=== PATIENT | female | born 1955 | race Caucasian/White ===

== ENCOUNTER → 2018-01-07 12:32 | Outpatient (CLI) | payer MEDICAID, SELFPAY ==
--- NOTE | 2018-01-07 13:56 | NEURO ---
NCS and/or EMG Patient Report Ordering Doctor: Bebeto Baires DATE OF SERVICE: 01/07/18 Catina Hayden is a 62-year-old female presents for electrodiagnostic testing of the lower limbs. She reports numbness in both feet and intermittent low back pain. Electrodiagnostic findings: Peroneal motor nerve demonstrates normal distal latency, amplitude and conduction velocity bilaterally. Normal tibial motor response bilaterally normal tibial and peroneal F waves H reflex normal bilaterally sensory responses within normal limits. On needle EMG, all muscles tested in the lower limbs show no evidence of denervation with normal motor unit action potentials. Electrodiagnostic Assessment: This is a normal study in the lower limbs. There is no electrodiagnostic evidence for peripheral neuropathy or lumbosacral radiculopathy. If there are any further questions, please do not hesitate to contact me.
== END ==
PROVIDERS: Family Provider Family Medicine; PCP Family Medicine; Visit Provider Family Medicine
DX: R20.2 Paresthesia of skin (principal)
CPT/HCPCS: 95886; 95912

== ENCOUNTER → 2018-02-04 10:58 | Outpatient (CLI) | payer MEDICAID, SELFPAY ==
--- NOTE | 2018-02-04 15:55 | NEURO ---
NCS and/or EMG Patient Report Ordering Doctor: Bebeto Baires DATE OF SERVICE: 02/04/18 Catina Hayden is a 62-year-old female with chief complaint of numbness in both hands. She has a history of cervical fusion 2003. She also has a history of diabetes. Electrodiagnostic findings: Median motor nerve demonstrates normal distal latency, amplitude and conduction velocity on the right side. Left median motor conduction velocity is borderline delayed. Normal ulnar motor response bilaterally, including conduction across the elbows. Prolonged median sensory distal latency is noted bilaterally. Normal ulnar and radial sensory responses. On needle EMG, all muscles tested in the upper limbs show no evidence of denervation with normal motor unit action potentials. Electrodiagnostic impression: This is an abnormal study in the upper limbs. 1. Findings demonstrate bilateral median mononeuropathy. This is consistent with a mild bilateral carpal tunnel syndrome. 2. No EMG evidence for cervical radiculopathy is noted. If there are any further questions, please do not hesitate to contact me.
== END ==
PROVIDERS: Family Provider Family Medicine; PCP Family Medicine; Visit Provider Family Medicine
DX: R20.2 Paresthesia of skin (principal)
CPT/HCPCS: 95886; 95912

== ENCOUNTER 2018-03-14 11:17 | Emergency (ER) | payer MEDICAID, SELFPAY ==
[2018-03-14 11:18] VITALS: BP 160/79; PULSE 66; RESP 16; TEMP 37.1; O2SAT 96; BMI 30.8
--- NOTE | 2018-03-14 11:38 | ED.VISSUMM ---
- ER Visit Summary Date of Service: 03/14/18 Chief Complaint: [] Redness around left lower extreme biopsy site Friday History of Present Illness: The patient is a 62 F [] bx left lower extremity by manager intermediate of a suspicious lesion for cancer she reports for the last 2 days seems red, she was told by the manager intermediate that was positive for some type of cancer and she needs further therapy she is scheduled to see in the office next week further management she has no history of DVT cellulitis skin infection she has multiple allergies to antibiotics she is able to take clindamycin otherwise she has no complaints Physical Examination: [] Neck chest unremarkable the abdomen soft nontender she is awake alert no distress the left lower extremity there is a circular biopsy site that is intact there is minimal redness surrounding it there is no drainage or warmth the calf knee ankle and the rest of lower extremity entirely unremarkable this is a focal area of discomfort and redness around the biopsy site, she does not believe she was given any special medication she is using aqua for cream over the site as instructed Test Results: [] Emergency Department Course and Treatment: [] this certainly could be cellulitis versus local reaction at this time she was started on clindamycin 300 4 times daily ice elevation continue the wound care she is instructed by her manager intermediate and follow-up with him return for change in symptoms Treatment Plan: [] Disposition: [] Home stable Impression: [] Biopsy site left lower extremity redness, possible early cellulitis This note was generated with [employer] dictation software. It may contain incorrect words, spelling, and punctuation that were not noted in review of the chart prior to signing ED Disposition - Plan for ED Patient: Chief Complaint: Cellulitis Referrals: Bebeto Baires MD [Primary Care Provider] -
--- NOTE | 2018-03-14 11:40 | ED.DEP ---
ED Disposition - Plan for ED Patient: Chief Complaint: Cellulitis Instructions: Discharge Instructions for Cellulitis Prescriptions: Clindamycin HCl [Cleocin] 300 mg PO Q6H #40 cap Referrals: Bebeto Baires MD [Primary Care Provider] -
[2018-03-14 12:08] VITALS: RESP 16
== END 2018-03-14 12:21 | disposition home or self-care (01) ==
LOC: ED 12:13
PROVIDERS: Emergency Provider Emergency Medicine; Family Provider Family Medicine; PCP Family Medicine
DX: T81.4XXA Infection following a procedure, initial encounter (principal); L03.116 Cellulitis of left lower limb; B96.89 Other specified bacterial agents as the cause of diseases classified elsewhere; I10 Essential (primary) hypertension; Z79.82 Long term (current) use of aspirin; Z79.899 Other long term (current) drug therapy
CPT/HCPCS: 99282

== ENCOUNTER 2018-04-01 16:30 | Observation (INO) | payer MEDICAID, SELFPAY ==
[2018-04-01 16:32] VITALS: BP 153/70; PULSE 62; PULSE 66; RESP 18; TEMP 36.9; O2SAT 94; BMI 30.8
--- NOTE | 2018-04-01 16:40 | RAD_ITS ---
STUDY: X-RAY CHEST REASON FOR EXAM: Female, 62 years old. Chest pain TECHNIQUE: Single AP portable view of the chest. COMPARISON: None. FINDINGS: The lungs are clear and expanded. There is no demonstrated pleural abnormality. Normal size heart. Normal mediastinum and leeann. Normal visualized pulmonary arteries. Normal visualized aortic arch and descending thoracic aorta. There are diffuse degenerative changes of the visualized thoracic spine. Previous cervical spine surgery. Normal visualized ribs, clavicles, and shoulders. There is no demonstrated abnormality of the visualized soft tissue structures of the upper abdomen. RAD/Chest 1 View (Portable) IMPRESSION: No acute chest disease. Electronically Signed: Jeffrey Amaro MD at 16:58 EDT , Service support ,
--- NOTE | 2018-04-01 16:41 | EKG12_ITS ---
Test Reason : Blood Pressure : / mmHG Vent. Rate : 057 BPM Atrial Rate : 057 BPM P-R Int : 186 ms QRS Dur : 092 ms QT Int : 454 ms P-R-T Axes : 046 052 064 degrees QTc Int : 441 ms Sinus bradycardia Otherwise normal ECG Confirmed by LIDIA HOLGUIN, CRISTHIAN ([id number]), senior editor LIZ TEJEDA ([id number] on 04/03/2018 10:56:44 AM Referred By: KRISTI Confirmed By:CRISTHIAN MURILLO MD
--- NOTE | 2018-04-01 16:59 | CT_ITS ---
STUDY: CT BRAIN WITHOUT CONTRAST REASON FOR EXAM: Female, 62 years old. Headache RADIATION DOSAGE (If Supplied By Facility): CTDIvol = ( 60.81 ) mGy, DLP = ( 1067.08 ) mGycm TECHNIQUE: Transaxial CT imaging of the brain was performed without administration of intravenous contrast material. Individualized dose optimization techniques were used for this CT. COMPARISON: 09/04/2015. FINDINGS: Normal soft tissue structures. Normal calvarium. Normal size ventricles and extra-axial spaces for the patient's age. Normal white matter tracts of the cerebral hemispheres. Normal basal ganglia and thalami. Normal brainstem. Normal cerebellum. There is no intracranial hemorrhage. There are no findings of an acute ischemic infarction. Normal visualized paranasal sinuses. CT/Brain/Head without Contrast IMPRESSION: Normal unenhanced CT scan of the brain. Electronically Signed: Jeffrey Amaro MD at 17:40 EDT , Service support ,
[2018-04-01 17:34] LABS: Absolute Lymphocyte Count 3.01 X10^3/ul (0.83-4.51); Absolute Neutrophil Count 3.7 X10^3/uL (2.0-7.7); Basophil# 0.02 X10^3/uL; Basophil% 0.3 % (0-1); Eosinophil# 0.05 X10^3/uL; Eosinophils% 0.7 % (0-5); Hematocrit 39.8 % (37-47); Hemoglobin 13.4 g/dl (12.0-15.0); Lymphocyte # 3.01 X10^3/ul (4.0); Lymphocyte % 42.4 % (19-41); Mean Corp Hgb Conc 33.7 g/gl (32-36); Mean Corpuscular Hgb 32.7 pg (27.0-32.0); Mean Corpuscular Volume 97.1 fL (81-99); Mean Platelet Vol. 9.9 fl (6.2-12.0); Monocyte# 0.31 X10^3/uL; Monocyte% 4.4 % (0-10); Neutrophil % 52.1 % (47-70); Platelet Count 177 K/mm3 (150-450); RBC Distribution Width CV 13.4 % (11.6-14.6); RBC Distribution Width SD 47.5 fl (35.1-43.9); White Blood Count 7.1 K/mm3 (4.4-11.0)
[2018-04-01 17:42] LABS: POSITIVE COUNT NO; POSITIVE DIFFERENTIAL NO; POSITIVE MORPHOLOGY NO
[2018-04-01 17:46] LABS: Anion Gap 5 (5-15); BUN 8 mg/dL (7-18); Calcium,Total 9.2 mg/dL (8.5-10.1); Chloride 105 mmol/L (98-107); Creatinine, Serum 0.66 mg/dL (0.55-1.02); EST Glomerular Filtration Rate 96 mL/min (>60); Est Glom Filt Rate - Afr Amer 116 mL/min (>60); Estimated Creatinine Clearance 71.69 ml/min; Glucose 81 mg/dL (74-106); Potassium 3.8 mmol/L (3.5-5.1); Sodium Level 138 mmol/L (136-145)
[2018-04-01] MEDS: Aspirin 81 MG TAB.CHEW 324 MG PO (17:46)
[2018-04-01] MEDS: Morphine 4 MG/ML Syringe IV (17:46)
[2018-04-01] MEDS: 0.9% Normal Saline 1,000 ML 150 ML IV (17:46)
--- NOTE | 2018-04-01 18:22 | PCM.HP.STD ---
Problem List (1) Chest pain Status: Acute (2) Diabetes Status: Chronic Qualifiers: Diabetes mellitus type: type 2 (3) HLD (hyperlipidemia) Status: Chronic (4) Tobacco abuse Status: Chronic (5) Obesity Status: Chronic History of Present Illness Date of Admission: 04/01/18 Chief Complaint: chest pain The patient is a 62 year old F with a hx of DMt2, nicotine abuse, GERD, HLD, who presents to the ER with a chief complaint of chest pain. This pain started about two weeks ago and has been occurring multiple times a day about every other day. She describes it as a left sided anterior dull aching pain with radiation into her arms, today radiation into her left arm. She has associated SOB, dizziness, palpitations, nausea, and sweating during the pain episodes. These last about 5 minutes at a time before spontaneously remitting. It sometimes occurs at rest, sometimes with exertion, she states sometimes when walking up stairs. She denies any hx of heart disease, but did used to see Dr. Cervantes who last did a stress test last spring, which was at that time negative. Her father did have heart disease, and she does have a heavy smoking history - 1 ppd since age 20 : 44 years. She saw her PCP Dr. Baires today who sent her to the ER with concerns of chest pain, but also as she was having swelling of her legs L > R. She denies hx of blood clots, and denies fm hx of blood clots. She did have skin cancer removed from her left leg where there is an open wound, and from her arm, she does not know what type. [] Past Medical History Past Medical History (Chronic Problems): Chronic Problems Diabetes (Chronic) HLD (hyperlipidemia) (Chronic) Tobacco abuse (Chronic) History of rectal bleeding (Chronic) Obesity (Chronic) Allergies ciprofloxacin [From Cipro] Allergy (Verified 04/01/18 16:32) Swelling ciprofloxacin HCl [From Cipro] Allergy (Verified 04/01/18 16:32) Swelling Penicillins Allergy (Verified 04/01/18 16:32) Rash Sulfa (Sulfonamide Antibiotics) Allergy (Verified 04/01/18 16:32) Rash adhesive Adverse Reaction (Verified 04/01/18 16:32) Unknown amoxicillin trihydrate [From Augmentin] Adverse Reaction (Verified 04/01/18 16:32) Unknown fluoxetine HCl [From Prozac] Adverse Reaction (Verified 04/01/18 16:32) Unknown metronidazole Adverse Reaction (Verified 04/01/18 16:32) Unknown potassium clavulanate [From Augmentin] Adverse Reaction (Verified 04/01/18 16:32) Unknown Home Medications: Ambulatory Orders Medication Instructions Recorded Gabapentin [Neurontin] 600 mg PO BID 06/22/16 Pantoprazole Sodium [Protonix] 40 mg PO BID 06/22/16 Ubidecarenone [Co Q-10] 100 mg PO BID 06/22/16 busPIRone [Buspar] 5 mg PO BID 06/22/16 Aspirin [Adult Low Dose Aspirin EC] 81 mg PO DAILY 10/06/17 Citalopram Hydrobromide [Celexa] 20 mg PO DAILY 10/06/17 Ergocalciferol [Vitamin D] 50,000 unit PO Q7D 10/06/17 Hydrocodone/Acetaminophen [[place] 1 each PO BID 10/06/17 5-325 Tablet] Metformin HCl 500 mg PO DAILY 10/06/17 Montelukast [Singulair] 10 mg PO QHS 10/06/17 Rosuvastatin Calcium [Crestor] 10 mg PO QHS 10/06/17 Tizanidine HCl [Zanaflex] 1 - 2 tab PO BID PRN PRN 10/06/17 traZODone [Desyrel] 100 mg PO QHS 10/06/17 Clindamycin HCl [Cleocin] 300 mg PO Q6H #40 cap 03/14/18 Surgical History: appendectomy, cholecystectomy, hysterectomy, tonsillectomy, neck surgery, bladder supsension Psychiatric History: No pertinent psych hx 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 history Lives: Alone Smoking Status: Current every day smoker Tobacco Use: Cigarettes Alcohol: Occasional Drugs: None - *Family History Maternal History Items: Cancer - colon Paternal History Items: Heart Disease Review of Systems Constitutional: Denies: Chills, Fever, Weight Change HEENT: Denies: Head Aches, Sinus Congestion, Sinus Drainage Cardiovascular: Reports: Chest Pain, Edema, Heaviness, Light Headedness, Palpitations Respiratory: Denies: Cough, Shortness of breath at rest, Sputum production Gastrointestinal: Denies: Abdominal Pain, Nausea, Vomiting Genitourinary: Denies: Dysuria Musculoskeletal: Denies: Joint Pain, Joint Tenderness Skin: Denies: Rash, Wounds Neurological: Denies: Numbness, Tingling, Focal weakness Psychiatric: Denies: Anxiety, Depression, Homicidal Ideations, Suicidal Ideations Hematologic/ Lymphatic: Denies: Easy Bruising, Easy Bleeding VTE Information - Inpt Only VTE Present on Admission: No VTE Mechan Device Prophylaxis: SCD's VTE Pharm Prophylaxis ordered?: No Patient Problems: Active and Suspected Problems Chest pain (Acute) - Physical Exam General: Alert, Oriented x3, Cooperative HEENT: Atraumatic, PERRLA, EOMI, Normocephalic Neck: Supple, No JVD, Negative Carotid Bruits Lungs: Clear to auscultation, Normal air movement Cardiovascular: Regular rate, No murmurs Abdomen: Bowel Sounds Present, Soft, Non Tender Extremities: No edema, Capillary Refill Less than 3 Seconds Skin: No rashes, No breakdown, - - skin cancer removed from arm and leg Musculoskeletal: No Tenderness to Palpation of Joints or Extremities Neurological: Cranial nerves II-XII grossly intact Psych/Mental Status: Depressed, Alert and oriented to time, place, person, mood and affect Vital Signs Temp Pulse Resp BP Pulse Ox 98.4 F 66 18 153/70 H 94 04/01/18 16:32 04/01/18 16:32 04/01/18 16:32 04/01/18 16:32 04/01/18 16:32 Oxygen Flow Rate (L/min) 2 Oxygen Delivery Method Nasal Cannula Weight: 76.4 kg Body Mass Index (BMI) 30.8 Laboratory Tests Past 24 Hrs 04/01/18 04/01/18 17:13 17:13 WBC 7.1 RBC 4.10 L Hgb 13.4 Hct 39.8 MCV 97.1 MCH 32.7 H MCHC 33.7 RDW 13.4 RDW Differential 47.5 H Plt Count 177 MPV 9.9 Immature Gran % (Auto) 0.100 Neut % (Auto) 52.1 Lymph % (Auto) 42.4 H [place] % (Auto) 4.4 Eos % (Auto) 0.7 Baso % (Auto) 0.3 Absolute Neuts (auto) 3.7 Absolute Lymphs (auto) 3.01 Total Counted Not Reportable Sodium 138 Potassium 3.8 Chloride 105 Carbon Dioxide 28.0 Anion Gap 5 BUN 8 Creatinine 0.66 Estim Creat Clear Calc 71.69 Est GFR (MDRD) Af Amer 116 Est GFR (MDRD) Non-Af 96 BUN/Creatinine Ratio 12.0 Glucose 81 Calcium 9.2 Troponin I < 0.015 Assessment/Plan Active and Suspected Problems Chest pain (Acute) 1. Chest pain - risk factors include age, obesity, DMt2, HLD, HTN in ER, nature of pain, SOB with exertion and stairs, associated palpitations, seating, nausea, radiation into the left arm, lightheadedness, heavy smoking hx, family hx. EKG negative, troponin neg. CXR neg. Patient will be placed in the PCU on tele, cycle enzymes, repeat EKG, stress test in AM. Negative stress test x 1 year ago per [place]. 2. LE edema - L >R. PCP concerned for DVT. Will get US BL LE. Has swelling, cancer hx (skin) with recent wound from surgical removal of cancer to that area. 3. DMt2 - hold orals. SSI 4. HLD - on statin. check FLP. 5. HTN in ER - trend - if remains elevated start ALISHA-i 6. GERD on PPI DVT ppx: Lovenox Pt seen by Uriel Pearce PA-C under the supervision of Dr. Dumont.
[2018-04-01 18:48] VITALS: BP 185/84; PULSE 63; RESP 16; O2SAT 99
--- NOTE | 2018-04-01 18:48 | HP.PCM_ITS ---
Problem List (1) Chest pain Status: Acute (2) Diabetes Status: Chronic Qualifiers: Diabetes mellitus type: type 2 (3) HLD (hyperlipidemia) Status: Chronic (4) Tobacco abuse Status: Chronic (5) Obesity Status: Chronic History of Present Illness Date of Admission: 04/01/18 Chief Complaint: chest pain The patient is a 62 year old F with a hx of DMt2, nicotine abuse, GERD, HLD, who presents to the ER with a chief complaint of chest pain. This pain started about two weeks ago and has been occurring multiple times a day about every other day. She describes it as a left sided anterior dull aching pain with radiation into her arms, today radiation into her left arm. She has associated SOB, dizziness, palpitations, nausea, and sweating during the pain episodes. These last about 5 minutes at a time before spontaneously remitting. It sometimes occurs at rest, sometimes with exertion, she states sometimes when walking up stairs. She denies any hx of heart disease, but did used to see Dr. Cervantes who last did a stress test last spring, which was at that time negative. Her father did have heart disease, and she does have a heavy smoking history - 1 ppd since age 20 : 44 years. She saw her PCP Dr. Baires today who sent her to the ER with concerns of chest pain, but also as she was having swelling of her legs L > R. She denies hx of blood clots, and denies fm hx of blood clots. She did have skin cancer removed from her left leg where there is an open wound, and from her arm, she does not know what type. [] Past Medical History Past Medical History (Chronic Problems): Chronic Problems Diabetes (Chronic) HLD (hyperlipidemia) (Chronic) Tobacco abuse (Chronic) History of rectal bleeding (Chronic) Obesity (Chronic) Allergies ciprofloxacin [From Cipro] Allergy (Verified 04/01/18 16:32) Swelling ciprofloxacin HCl [From Cipro] Allergy (Verified 04/01/18 16:32) Swelling Penicillins Allergy (Verified 04/01/18 16:32) Rash Sulfa (Sulfonamide Antibiotics) Allergy (Verified 04/01/18 16:32) Rash adhesive Adverse Reaction (Verified 04/01/18 16:32) Unknown amoxicillin trihydrate [From Augmentin] Adverse Reaction (Verified 04/01/18 16: 32) Unknown fluoxetine HCl [From Prozac] Adverse Reaction (Verified 04/01/18 16:32) Unknown metronidazole Adverse Reaction (Verified 04/01/18 16:32) Unknown potassium clavulanate [From Augmentin] Adverse Reaction (Verified 04/01/18 16:32 ) Unknown Home Medications: Ambulatory Orders Medication Instructions Recorded Gabapentin [Neurontin] 600 mg PO BID 06/22/16 Pantoprazole Sodium [Protonix] 40 mg PO BID 06/22/16 Ubidecarenone [Co Q-10] 100 mg PO BID 06/22/16 busPIRone [Buspar] 5 mg PO BID 06/22/16 Aspirin [Adult Low Dose Aspirin EC] 81 mg PO DAILY 10/06/17 Citalopram Hydrobromide [Celexa] 20 mg PO DAILY 10/06/17 Ergocalciferol [Vitamin D] 50,000 unit PO Q7D 10/06/17 Hydrocodone/Acetaminophen [[place] 1 each PO BID 10/06/17 5-325 Tablet] Metformin HCl 500 mg PO DAILY 10/06/17 Montelukast [Singulair] 10 mg PO QHS 10/06/17 Rosuvastatin Calcium [Crestor] 10 mg PO QHS 10/06/17 Tizanidine HCl [Zanaflex] 1 - 2 tab PO BID PRN PRN 10/06/17 traZODone [Desyrel] 100 mg PO QHS 10/06/17 Clindamycin HCl [Cleocin] 300 mg PO Q6H #40 cap 03/14/18 Surgical History: appendectomy, cholecystectomy, hysterectomy, tonsillectomy, neck surgery, bladder supsension Psychiatric History: No pertinent psych hx VET TECH History: No pertinent VET TECH history Lives: Alone Smoking Status: Current every day smoker Tobacco Use: Cigarettes Alcohol: Occasional Drugs: None - *Family History Maternal History Items: Cancer - colon Paternal History Items: Heart Disease Review of Systems Constitutional: Denies: Chills, Fever, Weight Change HEENT: Denies: Head Aches, Sinus Congestion, Sinus Drainage Cardiovascular: Reports: Chest Pain, Edema, Heaviness, Light Headedness, Palpitations Respiratory: Denies: Cough, Shortness of breath at rest, Sputum production Gastrointestinal: Denies: Abdominal Pain, Nausea, Vomiting Genitourinary: Denies: Dysuria Musculoskeletal: Denies: Joint Pain, Joint Tenderness Skin: Denies: Rash, Wounds Neurological: Denies: Numbness, Tingling, Focal weakness Psychiatric: Denies: Anxiety, Depression, Homicidal Ideations, Suicidal Ideations Hematologic/ Lymphatic: Denies: Easy Bruising, Easy Bleeding VTE Information - Inpt Only VTE Present on Admission: No VTE Mechan Device Prophylaxis: SCD's VTE Pharm Prophylaxis ordered?: No Patient Problems: Active and Suspected Problems Chest pain (Acute) - Physical Exam General: Alert, Oriented x3, Cooperative HEENT: Atraumatic, PERRLA, EOMI, Normocephalic Neck: Supple, No JVD, Negative Carotid Bruits Lungs: Clear to auscultation, Normal air movement Cardiovascular: Regular rate, No murmurs Abdomen: Bowel Sounds Present, Soft, Non Tender Extremities: No edema, Capillary Refill Less than 3 Seconds Skin: No rashes, No breakdown, - - skin cancer removed from arm and leg Musculoskeletal: No Tenderness to Palpation of Joints or Extremities Neurological: Cranial nerves II-XII grossly intact Psych/Mental Status: Depressed, Alert and oriented to time, place, person, mood and affect Vital Signs Temp Pulse Resp BP Pulse Ox 98.4 F 66 18 153/70 H 94 04/01/18 16:32 04/01/18 16:32 04/01/18 16:32 04/01/18 16:32 04/01/18 16:32 Oxygen Flow Rate (L/min) 2 Oxygen Delivery Method Nasal Cannula Weight: 76.4 kg Body Mass Index (BMI) 30.8 Laboratory Tests Past 24 Hrs 04/01/18 04/01/18 17:13 17:13 WBC 7.1 RBC 4.10 L Hgb 13.4 Hct 39.8 MCV 97.1 MCH 32.7 H MCHC 33.7 RDW 13.4 RDW Differential 47.5 H Plt Count 177 MPV 9.9 Immature Gran % (Auto) 0.100 Neut % (Auto) 52.1 Lymph % (Auto) 42.4 H [place] % (Auto) 4.4 Eos % (Auto) 0.7 Baso % (Auto) 0.3 Absolute Neuts (auto) 3.7 Absolute Lymphs (auto) 3.01 Total Counted Not Reportable Sodium 138 Potassium 3.8 Chloride 105 Carbon Dioxide 28.0 Anion Gap 5 BUN 8 Creatinine 0.66 Estim Creat Clear Calc 71.69 Est GFR (MDRD) Af Amer 116 Est GFR (MDRD) Non-Af 96 BUN/Creatinine Ratio 12.0 Glucose 81 Calcium 9.2 Troponin I < 0.015 Assessment/Plan Active and Suspected Problems Chest pain (Acute) 1. Chest pain - risk factors include age, obesity, DMt2, HLD, HTN in ER, nature of pain, SOB with exertion and stairs, associated palpitations, seating, nausea , radiation into the left arm, lightheadedness, heavy smoking hx, family hx. EKG negative, troponin neg. CXR neg. Patient will be placed in the PCU on tele, cycle enzymes, repeat EKG, stress test in AM. Negative stress test x 1 year ago per [place]. 2. LE edema - L >R. PCP concerned for DVT. Will get US BL LE. Has swelling, cancer hx (skin) with recent wound from surgical removal of cancer to that area. 3. DMt2 - hold orals. SSI 4. HLD - on statin. check FLP. 5. HTN in ER - trend - if remains elevated start ALISHA-i 6. GERD on PPI DVT ppx: Lovenox Pt seen by Uriel Pearce PA-C under the supervision of Dr. Dumont.
--- NOTE | 2018-04-01 18:58 | ED.VISSUMM ---
- ER Visit Summary Date of Service: 04/01/18 Chief Complaint: Chest pain History of Present Illness: The patient is a [address] Baires. She reports that she has chest pain and began approximately 2 weeks ago. Some intermittent pain last approximately 10 minutes at a time. She describes the pain as dull. It is brought on at times by exertion. However, it does not come on every time she exerts herself. It also occurs at rest sometimes. She reports pain is 6 out of 10 at worst and she is pain-free currently. It is associated with nausea, shortness of breath, and diaphoresis. Patient reports she has a headache is 510 severity. She has not had similar headaches previously. She reports this began last week. Gradually gotten worse. Physical Examination: Vitals: Stable. Afebrile. General: Well-nourished and well-developed. Head: Normocephalic atraumatic. Neck: Supple, no lymphadenopathy. No JVD. Nontender. Cardiovascular: Regular rate and rhythm. No murmurs. Respiratory: No respiratory distress. Clear to auscultation bilaterally. Abdominal: Soft, nontender, nondistended, normal bowel sounds. No guarding, rebound, or peritoneal signs. Back: Nontender. Extremities: Nontender, 1+ pitting edema over lower extremity bilaterally. Skin: Normal color, centimeter ulcer to the anterior surface of her left leg. Minimal surrounding erythema. Neurologic: Alert and oriented ?3. Cranial nerves II through XII are intact. Normal strength and sensation. Psych: Normal affect. Test Results: G is sinus bradycardia 57 with no acute changes. CBC is remarkable for lymphocytes 42. Chem-7 is normal. Troponin is negative. Chest x-ray is normal. CT brain is negative. Emergency Department Course and Treatment: Patient was given aspirin p.o. She had her headache treated with morphine and Zofran IV. She is resting comfortably. She has no chest pain at this time. Treatment Plan: Patient was discussed with Dr. Dumont. She will be admitted to the hospital for further evaluation and treatment. Disposition: Admitted in improved condition. Impression: 1. Chest pain. 2. REY score of 1. 3. Cephalgia. This note was generated with [employer] software. It may contain incorrect words, spelling, and punctuation that were not noted in review of the chart prior to signing ED Disposition - Plan for ED Patient: Chief Complaint: Chest Pain
--- NOTE | 2018-04-01 19:01 | ED.DCSUM_ITS ---
- ER Visit Summary Date of Service: 04/01/18 Chief Complaint: Chest pain History of Present Illness: The patient is a [address] Baires. She reports that she has chest pain and began approximately 2 weeks ago. Some intermittent pain last approximately 10 minutes at a time. She describes the pain as dull. It is brought on at times by exertion. However, it does not come on every time she exerts herself. It also occurs at rest sometimes. She reports pain is 6 out of 10 at worst and she is pain-free currently. It is associated with nausea , shortness of breath, and diaphoresis. Patient reports she has a headache is 510 severity. She has not had similar headaches previously. She reports this began last week. Gradually gotten worse. Physical Examination: Vitals: Stable. Afebrile. General: Well-nourished and well-developed. Head: Normocephalic atraumatic. Neck: Supple, no lymphadenopathy. No JVD. Nontender. Cardiovascular: Regular rate and rhythm. No murmurs. Respiratory: No respiratory distress. Clear to auscultation bilaterally. Abdominal: Soft, nontender, nondistended, normal bowel sounds. No guarding, rebound, or peritoneal signs. Back: Nontender. Extremities: Nontender, 1+ pitting edema over lower extremity bilaterally. Skin: Normal color, centimeter ulcer to the anterior surface of her left leg. Minimal surrounding erythema. Neurologic: Alert and oriented ?3. Cranial nerves II through XII are intact. Normal strength and sensation. Psych: Normal affect. Test Results: G is sinus bradycardia 57 with no acute changes. CBC is remarkable for lymphocytes 42. Chem-7 is normal. Troponin is negative. Chest x-ray is normal. CT brain is negative. Emergency Department Course and Treatment: Patient was given aspirin p.o. She had her headache treated with morphine and Zofran IV. She is resting comfortably. She has no chest pain at this time. Treatment Plan: Patient was discussed with Dr. Dumont. She will be admitted to the hospital for further evaluation and treatment. Disposition: Admitted in improved condition. Impression: 1. Chest pain. 2. REY score of 1. 3. Cephalgia. This note was generated with [employer] software. It may contain incorrect words, spelling, and punctuation that were not noted in review of the chart prior to signing ED Disposition - Plan for ED Patient: Chief Complaint: Chest Pain
--- NOTE | 2018-04-01 19:19 | EKG12_ITS ---
Test Reason : ADMISSION EKG Blood Pressure : / mmHG Vent. Rate : 062 BPM Atrial Rate : 062 BPM P-R Int : 180 ms QRS Dur : 090 ms QT Int : 456 ms P-R-T Axes : 055 048 071 degrees QTc Int : 462 ms Normal sinus rhythm Normal ECG Confirmed by LIDIA HOLGUIN, CRISTHIAN ([id number]), publications editor LIZ TEJEDA ([id number]) on 04/08/2018 2:59:43 PM Referred By: DR REDDY Confirmed By:CRISTHIAN MURILLO MD
--- NOTE | 2018-04-01 19:19 | VDLE_ITS ---
Reason For Study: swelling RIGHT LEFT GSV is normal. GSV is normal. CFV is compressible, spontaneous, phasic, CFV is compressible, spontaneous, phasic, competent and demonstrates normal competent, and demonstrates normal augmentation. augmentation. FV is compressible, spontaneous, phasic, FV is compressible, spontaneous, phasic, competent and demonstrates normal competent and demonstrates normal augmentation. augmentation. POP V is compressible, spontaneous, phasic, POP V is compressible, spontaneous, phasic, competent and demonstrates normal competent and demonstrates normal augmentation. augmentation. T/P Trunk is compressible. T/P Trunk is compressible. PTV is compressible. PTV is compressible. RT PerV is compressible. LT PerV is compressible. Procedure Exam performed portable in patient room. The exam was diagnostic. A preliminary report was called and/or faxed to the pt's RN. Interpretation Summary No evidence for acute deep venous thrombosis bilateral lower extremities with patent and compressible bilateral great saphenous veins. Ordering Physician: Lucia Dumont Referring Physician: Bebeto Baires Performed By: Duran Mccormick RVT
[2018-04-01 19:25] VITALS: PULSE 58
[2018-04-01 19:30] VITALS: BP 149/82; BP 173/73; PULSE 56; RESP 14; TEMP 36.6; O2SAT 98
[2018-04-01 19:30] LABS: Bedside Glucose 83 mg/dL (70-110)
[2018-04-01 19:37] VITALS: BMI 30.8
[2018-04-01 19:40] VITALS: BMI 30.8
[2018-04-01 20:41] LABS: Magnesium 1.9 mg/dL (1.6-2.6)
[2018-04-01] MEDS: traZODone 100 MG Tablet PO (21:52)
[2018-04-01] MEDS: busPIRone 5 MG Tablet PO (21:52)
[2018-04-01] MEDS: Gabapentin 600 MG Tablet PO (21:53)
[2018-04-01] MEDS: Montelukast 10 MG Tablet PO (21:53)
[2018-04-01 22:00] VITALS: O2SAT 97
[2018-04-01 22:00] LABS: Bedside Glucose 203 mg/dL (70-110)
[2018-04-02] VITALS (9 sets, daily range): BP systolic 151–168; BP diastolic 70–77; PULSE 52–64; RESP 16; TEMP 36.2–36.8; O2SAT 94–97
[2018-04-02] MEDS: 0.9% Normal Saline 1,000 ML 100 ML IV ×2 (00:07→13:29)
[2018-04-02] MEDS: Aspirin E.C. 81 MG Tablet PO (05:40)
[2018-04-02 05:51] LABS: Bedside Glucose 183 mg/dL (70-110)
--- NOTE | 2018-04-02 05:55 | EKG12_ITS ---
Test Reason : AM EKG Blood Pressure : / mmHG Vent. Rate : 054 BPM Atrial Rate : 054 BPM P-R Int : 188 ms QRS Dur : 090 ms QT Int : 460 ms P-R-T Axes : 069 062 083 degrees QTc Int : 436 ms Sinus bradycardia Otherwise normal ECG Confirmed by LIDIA HOLGUIN, CRISTHIAN ([id number]), editor at large LIZ TEJEDA ([id number]) on 04/08/2018 2:57:08 PM Referred By: DR REDDY Confirmed By:CRISTHIAN MURILLO MD
[2018-04-02 06:14] LABS: Hemoglobin 12.5 g/dl (12.0-15.0); Mean Corp Hgb Conc 33.8 g/gl (32-36); Mean Corpuscular Hgb 33.6 pg (27.0-32.0); Mean Corpuscular Volume 99.5 fL (81-99); Mean Platelet Vol. 10.4 fl (6.2-12.0); Platelet Count 178 K/mm3 (150-450); RBC Distribution Width CV 13.5 % (11.6-14.6); RBC Distribution Width SD 48.1 fl (35.1-43.9); Red Blood Count 3.72 M/mm3 (4.2-5.4); Scan Indicated on CBC? Y/N NO; White Blood Count 5.5 K/mm3 (4.4-11.0)
[2018-04-02 06:26] LABS: Prothrombin Time (Protime)PT. 13.1 SECONDS (11.7-14.9)
[2018-04-02 06:27] LABS: Partial Thromboplast Time 29.5 Seconds (24.1-36.2)
[2018-04-02 06:38] LABS: Anion Gap 5 (5-15); BUN 10 mg/dL (7-18); BUN/Creat Ratio 15.7 RATIO (10-20); Calcium,Total 8.7 mg/dL (8.5-10.1); Chloride 109 mmol/L (98-107); Cholesterol 124 mg/dL (200); Creatinine, Serum 0.64 mg/dL (0.55-1.02); EST Glomerular Filtration Rate 101 mL/min (>60); Est Glom Filt Rate - Afr Amer 122 mL/min (>60); Estimated Creatinine Clearance 73.93 ml/min; Glucose 165 mg/dL (74-106); High Density Lipoprotein 33 mg/dL; Potassium 3.9 mmol/L (3.5-5.1); Sodium Level 142 mmol/L (136-145); Triglycerides 260 mg/dL; Very Low Density Lipoprotein 52 mg/dL (5-40)
[2018-04-02] MEDS: HYDROcodone Bitartrate/Apap 5/325 Tablet PO (08:23)
--- NOTE | 2018-04-02 10:16 | PCM.DC ---
- Discharge Diagnoses Current Active Problems: Current Active and Chronic Problems Diabetes (Chronic) HLD (hyperlipidemia) (Chronic) Chest pain (Acute) You will use the following diet at home:: Calorie/Carbohydrate Controlled (specify 1200, 1400, etc), Cardiac Discharge Activity: Return to Normal Activity Call your doctor if you observe: Shortness of breath, Dizziness, Fainting spells, Chest pain Additional Instructions: Hold home metformin regimen for 48 hours. Allergies/Adverse Reactions: Allergies ciprofloxacin [From Cipro] Allergy (Verified 04/01/18 19:31) Rash ciprofloxacin HCl [From Cipro] Allergy (Verified 04/01/18 19:31) Rash clindamycin Allergy (Verified 04/01/18 19:36) throat swelling-see comment section Pt's pcp office has clindamycin listed as allergy, but pt recently was prescribed it and did not appear to have a reaction. fluoxetine HCl [From Prozac] Allergy (Verified 04/01/18 19:36) Rash metronidazole Allergy (Verified 04/01/18 19:31) Anaphylaxis Penicillins Allergy (Verified 04/01/18 16:32) Rash Sulfa (Sulfonamide Antibiotics) Allergy (Verified 04/01/18 16:32) Rash adhesive Adverse Reaction (Verified 04/01/18 19:31) redness with bandaids amoxicillin trihydrate [From Augmentin] Adverse Reaction (Verified 04/01/18 19:31) thrush/yeast infection potassium clavulanate [From Augmentin] Adverse Reaction (Verified 04/01/18 19:31) thrush/yeast infection Medications to take at Discharge Gabapentin [Neurontin] 600 mg PO BID 06/22/16 Pantoprazole Sodium [Protonix] 40 mg PO DAILY 06/22/16 Ubidecarenone [Co Q-10] 100 mg PO BID 06/22/16 busPIRone [Buspar] 5 mg PO BID 06/22/16 Aspirin [Adult Low Dose Aspirin EC] 81 mg PO DAILY 10/06/17 Citalopram Hydrobromide [Celexa] 40 mg PO QHS 10/06/17 Ergocalciferol [Vitamin D] 50,000 unit PO SA 10/06/17 Hydrocodone/Acetaminophen [[employer] 5-325 Tablet] 1 each PO Q8H PRN 10/06/17 Metformin HCl 500 mg PO DAILY 10/06/17 Montelukast [Singulair] 10 mg PO QHS 10/06/17 Rosuvastatin Calcium [Crestor] 10 mg PO QHS 10/06/17 Tizanidine HCl [Zanaflex] 1 - 2 tab PO BID PRN PRN 10/06/17 traZODone [Desyrel] 100 mg PO QHS 10/06/17 Celecoxib 100 mg PO BID 04/01/18 Lactobacillus Acidophilus [Acidophilus] 1 each PO DAILY 04/01/18 Lisinopril [Zestril] 5 mg PO DAILY #30 tab 04/02/18 The following prescriptions were given: Lisinopril [Zestril] 5 mg PO DAILY #30 tab Primary Care Physician: Bebeto Baires MD [Primary Care Provider] - Please follow up with your Primary Care Physician in: 1 Week Proposed Discharge Date: 04/02/18
--- NOTE | 2018-04-02 10:18 | NURSING ---
wound photo: left tarango
--- NOTE | 2018-04-02 10:19 | PCM.DC.SUM ---
Discharge Date and Diagnosis Date of Admission: 04/01/18 Date of Discharge: 04/02/18 - Primary Discharge Diagnosis Active and Suspected Problems 1. Chest pain- ACS ruled out. 2. Hypertension 3. Hyperlipidemia 4. Type 2 diabetes mellitus 5. Tobacco dependence 6. GERD 7. Depression/Anxiety 8. Obesity - Secondary Discharge Diagnosis Chronic Problems Diabetes (Chronic) HLD (hyperlipidemia) (Chronic) Tobacco abuse (Chronic) History of rectal bleeding (Chronic) Obesity (Chronic) Hospital Course and Treatment Imaging Results: Diagnostic Data Chest X-Ray 04/01/18 16:40 IMPRESSION: No acute chest disease. Electronically Signed: Jeffrey Amaro MD at 16:58 EDT , Service support , Brain CT 04/01/18 16:59 IMPRESSION: Normal unenhanced CT scan of the brain. Electronically Signed: Jeffrey Amaro MD at 17:40 EDT , Service support , Consultations 04/02/18 06:35 Consult: Onc/Wound/meter reader inspector Routine Comment: Operations: None Procedures: Stress test Summary of Care Provided: The patient is a 62 year old F admitted 04/01/2018 due to chest pain. She has a past medical history of hyperlipidemia, type 2 diabetes mellitus, tobacco dependence, GERD, anxiety, depression, history of GI bleed, obesity. Chest x-ray unremarkable. Troponin negative. Brain CT completed on admission due to reported headache which was unremarkable. Patient underwent nuclear stress test which was negative for ischemia. ACS ruled out. Wound on left anterior tarango with recent biopsy for skin cancer. Associated nonpitting edema. Ultrasound bilateral lower extremities negative for DVT. Patient was started on lisinopril 5 mg daily due to hypotension during admission. Her fasting lipid panel showed triglycerides 260, LDL 52, HDL 33. Recommend further monitoring and adjustment by primary care physician. Other chronic medical conditions as noted above are stable at this time. General: Alert, Oriented x3, Cooperative HEENT: Atraumatic, PERRLA, EOMI, Normocephalic Neck: Supple, No JVD, Negative Carotid Bruits Lungs: Clear to auscultation, Normal air movement Cardiovascular: Regular rate, No murmurs Abdomen: Bowel Sounds Present, Soft, Non Tender Extremities: No edema, Capillary Refill Less than 3 Seconds Skin: No rashes, No breakdown, left tarango dressing from recent biopsy dry and intact. Musculoskeletal: No Tenderness to Palpation of Joints or Extremities Neurological: Cranial nerves II-XII grossly intact Psych/Mental Status: Depressed Patient seen and examined prior to discharge. Physical assessment as noted above. Patient denies further chest pain. Stable for discharge home with further follow-up with primary care physician in 1 week. This patient was seen by PERLA Edwards under the supervision of Dr. Hopper. Discharge Diet: Low fat/ Low Cholesterol, Carb Control Diet Discharge Activity: Return to Normal Activity Call your doctor if you observe: Shortness of breath, Dizziness, Fainting spells, Chest pain Home Medications: Medications to take at Discharge Gabapentin [Neurontin] 600 mg PO BID 06/22/16 Pantoprazole Sodium [Protonix] 40 mg PO DAILY 06/22/16 Ubidecarenone [Co Q-10] 100 mg PO BID 06/22/16 busPIRone [Buspar] 5 mg PO BID 06/22/16 Aspirin [Adult Low Dose Aspirin EC] 81 mg PO DAILY 10/06/17 Citalopram Hydrobromide [Celexa] 40 mg PO QHS 10/06/17 Ergocalciferol [Vitamin D] 50,000 unit PO SA 10/06/17 Hydrocodone/Acetaminophen [[place] 5-325 Tablet] 1 each PO Q8H PRN 10/06/17 Metformin HCl 500 mg PO DAILY 10/06/17 Montelukast [Singulair] 10 mg PO QHS 10/06/17 Rosuvastatin Calcium [Crestor] 10 mg PO QHS 10/06/17 Tizanidine HCl [Zanaflex] 1 - 2 tab PO BID PRN PRN 10/06/17 traZODone [Desyrel] 100 mg PO QHS 10/06/17 Celecoxib 100 mg PO BID 04/01/18 Lactobacillus Acidophilus [Acidophilus] 1 each PO DAILY 04/01/18 Lisinopril [Zestril] 5 mg PO DAILY #30 tab 04/02/18 Following Prescrptions Were Given to Patient: Lisinopril [Zestril] 5 mg PO DAILY #30 tab Primary Care Physician: Bebeto Baires MD [Primary Care Provider] - Please follow up with your Primary Care Physician in: 1 Week Disposition: Home Minutes spent on discharge:: 35 Patient Condition:: Stable Medical Necessity - Tobacco Use Smoking Status: Current every day smoker Tobacco Use: Cigarettes Meaningful Use Info Meaningful Use Diagnoses (Choose all that apply): None applicable
--- NOTE | 2018-04-02 10:27 | DS.PCM_ITS ---
Discharge Date and Diagnosis Date of Admission: 04/01/18 Date of Discharge: 04/02/18 - Primary Discharge Diagnosis Active and Suspected Problems 1. Chest pain- ACS ruled out. 2. Hypertension 3. Hyperlipidemia 4. Type 2 diabetes mellitus 5. Tobacco dependence 6. GERD 7. Depression/Anxiety 8. Obesity - Secondary Discharge Diagnosis Chronic Problems Diabetes (Chronic) HLD (hyperlipidemia) (Chronic) Tobacco abuse (Chronic) History of rectal bleeding (Chronic) Obesity (Chronic) Hospital Course and Treatment Imaging Results: Diagnostic Data Chest X-Ray 04/01/18 16:40 IMPRESSION: No acute chest disease. Electronically Signed: Jeffrey Amaro MD at 16:58 EDT , Service support , Brain CT 04/01/18 16:59 IMPRESSION: Normal unenhanced CT scan of the brain. Electronically Signed: Jeffrey Amaro MD at 17:40 EDT , Service support , Consultations 04/02/18 06:35 Consult: Onc/Wound/dial screw assembler Routine Comment: Operations: None Procedures: Stress test Summary of Care Provided: The patient is a 62 year old F admitted 04/01/2018 due to chest pain. She has a past medical history of hyperlipidemia, type 2 diabetes mellitus, tobacco dependence, GERD, anxiety, depression, history of GI bleed, obesity. Chest x- ray unremarkable. Troponin negative. Brain CT completed on admission due to reported headache which was unremarkable. Patient underwent nuclear stress test which was negative for ischemia. ACS ruled out. Wound on left anterior tarango with recent biopsy for skin cancer. Associated nonpitting edema. Ultrasound bilateral lower extremities negative for DVT. Patient was started on lisinopril 5 mg daily due to hypotension during admission. Her fasting lipid panel showed triglycerides 260, LDL 52, HDL 33. Recommend further monitoring and adjustment by primary care physician. Other chronic medical conditions as noted above are stable at this time. General: Alert, Oriented x3, Cooperative HEENT: Atraumatic, PERRLA, EOMI, Normocephalic Neck: Supple, No JVD, Negative Carotid Bruits Lungs: Clear to auscultation, Normal air movement Cardiovascular: Regular rate, No murmurs Abdomen: Bowel Sounds Present, Soft, Non Tender Extremities: No edema, Capillary Refill Less than 3 Seconds Skin: No rashes, No breakdown, left tarango dressing from recent biopsy dry and intact. Musculoskeletal: No Tenderness to Palpation of Joints or Extremities Neurological: Cranial nerves II-XII grossly intact Psych/Mental Status: Depressed Patient seen and examined prior to discharge. Physical assessment as noted above. Patient denies further chest pain. Stable for discharge home with further follow-up with primary care physician in 1 week. This patient was seen by PERLA Edwards under the supervision of Dr. Hopper. Discharge Diet: Low fat/ Low Cholesterol, Carb Control Diet Discharge Activity: Return to Normal Activity Call your doctor if you observe: Shortness of breath, Dizziness, Fainting spells , Chest pain Home Medications: Medications to take at Discharge Gabapentin [Neurontin] 600 mg PO BID 06/22/16 Pantoprazole Sodium [Protonix] 40 mg PO DAILY 06/22/16 Ubidecarenone [Co Q-10] 100 mg PO BID 06/22/16 busPIRone [Buspar] 5 mg PO BID 06/22/16 Aspirin [Adult Low Dose Aspirin EC] 81 mg PO DAILY 10/06/17 Citalopram Hydrobromide [Celexa] 40 mg PO QHS 10/06/17 Ergocalciferol [Vitamin D] 50,000 unit PO SA 10/06/17 Hydrocodone/Acetaminophen [[place] 5-325 Tablet] 1 each PO Q8H PRN 10/06/17 Metformin HCl 500 mg PO DAILY 10/06/17 Montelukast [Singulair] 10 mg PO QHS 10/06/17 Rosuvastatin Calcium [Crestor] 10 mg PO QHS 10/06/17 Tizanidine HCl [Zanaflex] 1 - 2 tab PO BID PRN PRN 10/06/17 traZODone [Desyrel] 100 mg PO QHS 10/06/17 Celecoxib 100 mg PO BID 04/01/18 Lactobacillus Acidophilus [Acidophilus] 1 each PO DAILY 04/01/18 Lisinopril [Zestril] 5 mg PO DAILY #30 tab 04/02/18 Following Prescrptions Were Given to Patient: Lisinopril [Zestril] 5 mg PO DAILY #30 tab Primary Care Physician: Bebeto Baires MD [Primary Care Provider] - Please follow up with your Primary Care Physician in: 1 Week Disposition: Home Minutes spent on discharge:: 35 Patient Condition:: Stable Medical Necessity - Tobacco Use Smoking Status: Current every day smoker Tobacco Use: Cigarettes Meaningful Use Info Meaningful Use Diagnoses (Choose all that apply): None applicable
[2018-04-02 13:10] LABS: Bedside Glucose 195 mg/dL (70-110)
[2018-04-02] MEDS: Gabapentin 600 MG Tablet PO (13:15)
[2018-04-02] MEDS: Pantoprazole Sodium 40 MG Tablet PO (13:15)
[2018-04-02] MEDS: busPIRone 5 MG Tablet PO (13:15)
[2018-04-02] MEDS: Citalopram 40 MG TABLET PO (13:15)
[2018-04-02] MEDS: hydrALAZINE 20 MG/ML Vial 10 MG IV (13:29)
--- NOTE | 2018-04-02 13:29 | STRESSREP_ITS ---
Stress Test Report Date: 04/02/2018 Procedure: Pharmacologic stress nuclear imaging study Indications: Chest pain Consent: Per the patient Procedure: The patient underwent pharmacologic (Regadenoson) evaluation with a peak heart rate of 93 beats per minute (58 predicted maximal heart rate) and a peak blood pressure of 180/84 mmHg. The baseline ECG demonstrated sinus bradycardia; nonspecific T-wave abnormality. The peak pharmacologic ECG demonstrated no obvious ECG changes. There were no cardiac dysrhythmias pretest, during pharmacologic infusion, or recovery. There was no complaint of chest discomfort during pharmacologic infusion or recovery. The examination was discontinued secondary to completion of protocol. Impression: 1. Pharmacologic (Regadenoson) evaluation 2. Peak pharmacologic ECG with no obvious ECG changes. 3. There were no cardiac dysrhythmias pretest, during pharmacologic infusion, or recovery 4. Nuclear images pending Myocardial perfusion imaging study: Technique: The patient was injected with 10.5 millicuries of technetium 99m Cardiolite and subsequently rest SPECT Cardiolite nuclear imaging was obtained in the horizontal long, vertical long, and short axis views. The patient underwent pharmacologic (Regadenoson) evaluation with a peak heart rate of 93 beats per minute (58 % percent predicted maximal heart rate) and a peak blood pressure of 180/84 mmHg. The patient was injected with 33.4 millicuries of technetium 99m Cardiolite and subsequently stress SPECT Cardiolite nuclear imaging was obtained in the horizontal long, vertical long, and short axis views. A gated Cardiolite study at peak stress was obtained. Interpretation: Rest and stress SPECT Cardiolite nuclear imaging status post realignment, normalization, and attenuation correction demonstrate no active uniform tracer uptake and myocardial perfusion appearing within normal limits. There is end systolic thickening and brightening. The gated Cardiolite study demonstrates myocardial thickening and inward wall motion. The reported LVEF is 79 %. Impression: 1. Rest and stress SPECT Cardiolite nuclear imaging demonstrate relative uniform tracer uptake and myocardial perfusion appearing within normal limits. 2. The gated Cardiolite study reports an LVEF of 79%. This note was generated with [employer] software. It may contain incorrect words, spelling, and punctuation that were not noted in checking the note before signing.
== END 2018-04-02 15:29 | disposition home or self-care (01) ==
LOC: ED 17:03 → PCU 18:17
PROVIDERS: Admitting Provider Family Medicine; Emergency Provider Emergency Medicine; Family Provider Family Medicine; PCP Family Medicine; Visit Provider Internal Medicine
DX: R07.89 Other chest pain (principal); R06.02 Shortness of breath; R51 Headache; R60.0 Localized edema; E78.5 Hyperlipidemia, unspecified; F41.9 Anxiety disorder, unspecified; F32.9 Major depressive disorder, single episode, unspecified; K21.9 Gastro-esophageal reflux disease without esophagitis; E11.40 Type 2 diabetes mellitus with diabetic neuropathy, unspecified; F17.210 Nicotine dependence, cigarettes, uncomplicated; E66.9 Obesity, unspecified; Z68.30 Body mass index [BMI] 30.0-30.9, adult; Z71.3 Dietary counseling and surveillance; Z79.899 Other long term (current) drug therapy; Z79.82 Long term (current) use of aspirin; Z85.828 Personal history of other malignant neoplasm of skin
CPT/HCPCS: 36415; 70450; 71045; 78452; 80048; 80061; 82962; 83735; 84484; 85025; 85027; 85610; 85730; 93005; 93017; 93970; 96374; 96375; 97802; 99218; 99285; A9500; J7030; A4216; G0378; J2785

== ENCOUNTER 2018-04-11 11:30 | Emergency (ER) | payer MEDICAID, SELFPAY ==
[2018-04-11 11:31] VITALS: BP 141/73; PULSE 64; RESP 16; TEMP 36.1; O2SAT 98; BMI 30.3
--- NOTE | 2018-04-11 12:15 | ED.VISSUMM ---
- ER Visit Summary Date of Service: 04/11/18 Chief Complaint: Leg pain History of Present Illness: The patient is a [address] Baires. Patient reports that she had a skin cancer removed from the anterior left tarango approximately 1 month ago by her computer graphic designer in [place]. She reports the area is not healing. States that she has had increasing pain over the past 2 days. Some aching, sharp pain [place] 10 with touching it and 5 out of 10 after [place]. She denies any fever, chills, nausea, or vomiting. Patient reports that she was placed on doxycycline [address] Baires. Physical Examination: Vitals: Stable. Afebrile. General: Well-nourished and well-developed. Head: Normocephalic atraumatic. Neck: Supple, no lymphadenopathy. No JVD. Nontender. Cardiovascular: Regular rate and rhythm. No murmurs. Respiratory: No respiratory distress. Clear to auscultation bilaterally. Abdominal: Soft, nontender, nondistended, normal bowel sounds. No guarding, rebound, or peritoneal signs. Back: Nontender. Extremities: Nontender, no edema. Skin: 1.5 cm superficial ulcer to the anterior surface of her mid left leg that is nonhealing. There is granulation tissue here. There is no surrounding erythema. There is no induration or fluctuance.. Neurologic: Alert and oriented ?3. Cranial nerves II through XII are intact. Normal strength and sensation. Psych: Normal affect. Emergency Department Course and Treatment: Patient is resting comfortably. Treatment Plan: Patient will be discharged instructions to continue her doxycycline. She is given Zofran for nausea. She was placed on Bactroban ointment. Given the fact that she has had this for a month and is not healing she will be instructed to follow-up with the wound clinic in 3-5 days for another exam. Return to the emergency department for any worsening symptoms. Disposition: To home in improved and stable condition. Impression: 1. Nonhealing ulcer left leg. This note was generated with [employer] software. It may contain incorrect words, spelling, and punctuation that were not noted in review of the chart prior to signing ED Disposition - Plan for ED Patient: Disposition: Home or Assisted Living Chief Complaint: Cellulitis Instructions: Wound Care Prescriptions: Ondansetron [Zofran Odt] 4 mg PO Q8H PRN PRN #10 tablet PRN Reason: Nausea Mupirocin Calcium [Bactroban] 30 gm TP 4X/DAY #1 tube Referrals: Clinic,Wound [None] - 3-5 Days
== END 2018-04-11 12:40 | disposition home or self-care (01) ==
PROVIDERS: Emergency Provider Emergency Medicine; Family Provider Family Medicine; PCP Family Medicine
DX: L97.829 Non-pressure chronic ulcer of other part of left lower leg with unspecified severity (principal); I10 Essential (primary) hypertension; E11.9 Type 2 diabetes mellitus without complications; J44.9 Chronic obstructive pulmonary disease, unspecified; Z85.828 Personal history of other malignant neoplasm of skin; Z79.82 Long term (current) use of aspirin; Z79.84 Long term (current) use of oral hypoglycemic drugs; Z79.899 Other long term (current) drug therapy; Z72.0 Tobacco use
CPT/HCPCS: 99282

== ENCOUNTER → 2018-04-29 14:02 | Outpatient (CLI) | payer MEDICAID, SELFPAY ==
--- NOTE | 2018-04-29 14:05 | VDLE_ITS ---
Reason For Study: LEG SWELLING RIGHT LEFT CFV is compressible, spontaneous, phasic, GSV is normal. competent and demonstrates normal CFV is compressible, spontaneous, phasic, augmentation. competent, and demonstrates normal Procedure augmentation. Exam performed in department. FV is compressible, spontaneous, phasic, A preliminary report was called and/or faxed competent and demonstrates normal to Dr. Baires. augmentation. POP V is compressible, spontaneous, phasic, competent and demonstrates normal augmentation. T/P Trunk is compressible. PTV is compressible. LT PerV is compressible. Interpretation Summary There is no evidence of left lower extremity deep vein thrombosis. Left greater saphenous vein appears patent and compressible segmentally. Normal flow patterns right common femoral vein. Ordering Physician: Bebeto Baires Referring Physician: Bebeto Baires Performed By: Karen Vasquez RVT
== END ==
PROVIDERS: Family Provider Family Medicine; PCP Family Medicine; Visit Provider Family Medicine
DX: M79.89 Other specified soft tissue disorders (principal); M79.604 Pain in right leg; M79.605 Pain in left leg
CPT/HCPCS: 93971

== ENCOUNTER 2018-05-22 14:30 | Outpatient (RCR) | payer MEDICAID, SELFPAY ==
[2018-05-15 13:14] VITALS: BP 112/58; PULSE 53; RESP 16; TEMP 35.9; BMI 29.6
--- NOTE | 2018-05-15 18:04 | PCM.WC.HP ---
(1) Nonhealing surgical wound Status: Chronic Current Visit: Yes Qualifiers: Encounter type: initial encounter Qualified Code(s): T81.89XA - Other complications of procedures, not elsewhere classified, initial encounter Code(s): T81.89XA - Other complications of procedures, not elsewhere classified, initial encounter (2) Ulcer of left lower extremity with fat layer exposed Status: Chronic Current Visit: Yes Code(s): L97.922 - Non-pressure chronic ulcer of unspecified part of left lower leg with fat layer exposed (3) Diabetes Status: Chronic Current Visit: Yes Qualifiers: Diabetes mellitus type: type 2 Diabetes mellitus long term care social worker insulin use: without assisted use Diabetes mellitus complication status: with neurologic complications Diabetes mellitus complication detail: with polyneuropathy Qualified Code(s): E11.42 - Type 2 diabetes mellitus with diabetic polyneuropathy Code(s): E11.9 - Type 2 diabetes mellitus without complications (4) Obesity Status: Chronic Current Visit: Yes Qualifiers: Obesity type: due to excess calories Obesity classification: unspecified obesity classification Code(s): E66.9 - Obesity, unspecified (5) Hx of squamous cell carcinoma excision Status: Chronic Current Visit: Yes Code(s): Z98.890 - Other specified postprocedural states; Z85.9 - Personal history of malignant neoplasm, unspecified History of Present Illness Date of Service: 05/15/18 Chief Complaint: nonhealing wound left lower leg History of Wound: Catina is a pleasant 62 yo female that presents to the wound center for treatment of a nonhealing surgical wound of her left tarango that has not healed. She was referred by Dr. Baires. She underwent an excision of a squamous cell cancer on 03/20/[address] Renata Sorensen and subsequently the wound became infected. She was placed on doxycycline for a MRSA wound culture. She finished the medication about 2 weeks ago. There has not been any improvement in her wound. She denies erythema, increased drainage or odor. She has been using Aquaphor on the wound and gauze. She is diabetic and her most recent A1C in April was 6.5% per her report. She has not had vascular testing other than duplex to r/o blood clot. Past Medical History Past Medical History: Chronic Problems Nonhealing surgical wound (Chronic) Ulcer of left lower extremity with fat layer exposed (Chronic) Hx of squamous cell carcinoma excision (Chronic) Diabetes (Chronic) HLD (hyperlipidemia) (Chronic) Tobacco abuse (Chronic) History of rectal bleeding (Chronic) Obesity (Chronic) Past Medical History: gout. osteoarthritis. copd. htn Surgical History: appendectomy, cholecystectomy, hysterectomy, tonsillectomy, neck surgery, bladder supsension Allergies/Adverse Reactions: Allergies ciprofloxacin [From Cipro] Allergy (Verified 04/11/18 11:33) Rash ciprofloxacin HCl [From Cipro] Allergy (Verified 04/11/18 11:33) Rash clindamycin Allergy (Verified 04/11/18 11:33) throat swelling-see comment section Pt's pcp office has clindamycin listed as allergy, but pt recently was prescribed it and did not appear to have a reaction. fluoxetine HCl [From Prozac] Allergy (Verified 04/11/18 11:33) Rash metronidazole Allergy (Verified 04/11/18 11:33) Anaphylaxis Penicillins Allergy (Verified 04/11/18 11:33) Rash Sulfa (Sulfonamide Antibiotics) Allergy (Verified 04/11/18 11:33) Rash adhesive Adverse Reaction (Verified 04/11/18 11:33) redness with bandaids amoxicillin trihydrate [From Augmentin] Adverse Reaction (Verified 04/11/18 11:33) thrush/yeast infection potassium clavulanate [From Augmentin] Adverse Reaction (Verified 04/11/18 11:33) thrush/yeast infection Home Medications: Ambulatory Orders Medication Instructions Recorded Gabapentin [Neurontin] 600 mg PO BID 06/22/16 Pantoprazole Sodium [Protonix] 40 mg PO DAILY 06/22/16 Ubidecarenone [Co Q-10] 100 mg PO BID 06/22/16 busPIRone [Buspar] 5 mg PO BID 06/22/16 Aspirin [Adult Low Dose Aspirin EC] 81 mg PO DAILY 10/06/17 Citalopram Hydrobromide [Celexa] 40 mg PO QHS 10/06/17 Ergocalciferol [Vitamin D] 50,000 unit PO SA 10/06/17 Hydrocodone/Acetaminophen [[place] 1 each PO Q8H PRN 10/06/17 5-325 Tablet] Metformin HCl 500 mg PO DAILY 10/06/17 Montelukast [Singulair] 10 mg PO QHS 10/06/17 Rosuvastatin Calcium [Crestor] 10 mg PO QHS 10/06/17 Tizanidine HCl [Zanaflex] 1 - 2 tab PO BID PRN PRN 10/06/17 traZODone [Desyrel] 100 mg PO QHS 10/06/17 Celecoxib 100 mg PO BID 04/01/18 Lactobacillus Acidophilus 1 each PO DAILY 04/01/18 [Acidophilus] Lisinopril [Zestril] 5 mg PO DAILY #30 tab 04/02/18 Mupirocin Calcium [Bactroban] 30 gm TP 4X/DAY #1 tube 04/11/18 Ondansetron [Zofran Odt] 4 mg PO Q8H PRN PRN #10 tablet 04/11/18 - Family History Maternal Cancer - colon Paternal Heart Disease Lives: Alone Smoking Status: Current every day smoker Tobacco Use: Cigarettes Alcohol: None Drugs: None Review of Systems Constitutional: Denies: Chills, Fever, Weight Change Eyes: Denies: Pain, Vision Change HEENT: Denies: Difficulty Hearing, Difficulty Swallowing, Sinus Congestion Cardiovascular: Denies: Chest Pain, Palpitations Respiratory: Denies: Cough, Shortness of Breath Gastrointestinal: Denies: Diarrhea, Nausea, Vomiting Genitourinary: Denies: Frequency, Urgency Musculoskeletal: Reports: Joint Pain Skin: Reports: Wounds Neurological: Reports: Numbness, Tingling Psychiatric: Reports: Depression Hematologic/ Lymphatic: Denies: Easy Bruising, Easy Bleeding - Physical Exam Vital Signs Temp Pulse Resp BP 96.6 F L 53 L 16 112/58 L 05/15/18 13:14 05/15/18 13:14 05/15/18 13:14 05/15/18 13:14 General: Alert, Oriented x3, Cooperative, No apparent distress HEENT: Atraumatic, Normocephalic Oral: Moist Mucosa Neck: Supple, No JVD Lungs: Clear to auscultation Cardiovascular: Regular rate, Regular Rhythm Abdomen: Soft, Non Tender, Non-Distended, Obese Extremities: Edema Skin: Ulcer/ Wound Wound Measurements and Assessment WC - Nurse 1 - General Ulcer Measurement Start: 05/15/18 13:13 Freq: Status: Active Protocol: Activity Type Activity Date Activity User E-Sign Co-Sign Detail Recorded Client Recorded Date Recorded By Document 05/15/18 13:14 [id number] 05/15/18 13:44 05/15/18 13:14 Wound Center Nurse 1 [Ulcer Assessment] #1 LEFT TARANGO -Combined with other wound No -Current Size (cm) - Length 1.3 -Current Size (cm) - Width 0.6 -Current Size (cm) - Depth 0.1 -Total Square Cm 0.78 -Date of Last Picture (Recall this 05/15/18 field) -Photo Taken Yes -Epithelialization Small 1-33% -Tunneling No -Undermining/Tunneling No -Circular Undermining No -Exudate Amt None Present (0 %) -Wound Margin Distinct, Outline Attached -Granulation Amt Small (1-33%) -Granulation Quality [place] Red -Necrosis Amt None Present (0 %) -Necrotic Tissue Type Adherent Slough -Structure Exposed None/Limited to Skin Breakdown -Texture (Corie-wound Skin Appearance) Assessed Scarring -Moisture (Corie-wound Skin Appearance No Abnormality ) Assessed -Color (Corie-wound Skin Appearance) No Abnormality Assessed -Temperature (Corie-wound Skin No Abnormality Appearance) (Pt Warm) -Tenderness on Palpation (Corie-wound No Skin Appearance) -Ulcer Cleansing Rinsed/ Irrigated with Saline -Foul Odor after Cleansing No -Anesthetic Used 5% Lidocaine Gel [Edema Assessment] -Lower Limb Edema Present No -Left Calf (cm) 39.6 -Left Ankle (cm) 22.4 WC - Nurse 2 - General Ulcer CM Notes Start: 05/15/18 13:13 Freq: Status: Active Protocol: Activity Type Activity Date Activity User E-Sign Co-Sign Detail Recorded Client Recorded Date Recorded By Document 05/15/18 14:18 [email or web address] 05/15/18 14:36 05/15/18 14:18 Wound Center Nurse 2 [Procedure/Treatment] #1 LEFT TARANGO -Time 14:33 -Correct Patient Yes -Correct Side, Site, Position Yes -Correct Procedure Yes -Procedure Performed Yes -Type of Procedure Debridement -Clinical Debridement Subcutaneous -Post Debridement Size (cm) - Length 1.5 -Post Debridement Size (cm) - Width 1.1 -Post Debridement Size (cm) - Depth 0.1 -Total Square Cm 1.65 -Wound/Ulcer Outcome Not Healed -Ulcer Cleansing Rinsed/ Irrigated with Saline -Foul Odor after Cleansing No -Bioengineered Tissue No -Topical Lidocaine (%) 5 -Bleeding Controlled with Pressure -Treatment Response Procedure Tolerated Well [See Physician Procedure note for Specifics] Pain Scale: 0-10 Numeric [Pain] -Is Patient Pain Free? Yes Psych/Mental Status: Normal Affect, Appropriate Debridement Note Post-Debridement Measurements/Treatment WC - Nurse 2 - General Ulcer CM Notes Start: 05/15/18 13:13 Freq: Status: Active Protocol: Activity Type Activity Date Activity User E-Sign Co-Sign Detail Recorded Client Recorded Date Recorded By Document 05/15/18 14:18 [id number] 05/15/18 14:36 05/15/18 14:18 Wound Center Nurse 2 #1 LEFT TARANGO -Time 14:33 -Correct Patient Yes -Correct Side, Site, Position Yes -Correct Procedure Yes -Procedure Performed Yes -Type of Procedure Debridement -Clinical Debridement Subcutaneous -Post Debridement Size (cm) - Length 1.5 -Post Debridement Size (cm) - Width 1.1 -Post Debridement Size (cm) - Depth 0.1 -Total Square Cm 1.65 -Wound/Ulcer Outcome Not Healed -Ulcer Cleansing Rinsed/ Irrigated with Saline -Foul Odor after Cleansing No -Bioengineered Tissue No -Topical Lidocaine (%) 5 -Bleeding Controlled with Pressure -Treatment Response Procedure Tolerated Well Pain Scale: 0-10 Numeric Is Patient Pain Free? Yes Wound debrided: left tarango Laterality: Left Type of Debridement: Excisional debridement Anesthesia Used: 4% Lidocaine Solution Depth: Down to and including healthy tissue, in the subcutaneous layer Percentage of wound debrided: 100 Instrument Used: 5mm curette Tissue Removed: yellow slough, devitalized tissue Severity: Fat Layer Exposed Amount of bleeding with debridement: Mild Bleeding Controlled with: Compression and gauze Patient tolerated procedure well Assessment/Plan Active Problems Nonhealing surgical wound (Chronic) Ulcer of left lower extremity with fat layer exposed (Chronic) Hx of squamous cell carcinoma excision (Chronic) Diabetes (Chronic) Obesity (Chronic) Assessment: nonhealing surgical wound Plan: Catina's wound was debrided today. Will treat with Susan changed daily and tubigrip compression. Encouraged increased protein and elevation to help improve edema. Continue to keep tight glucose control. F/U in 1 week
--- NOTE | 2018-05-15 18:21 | HP.PCM_ITS ---
(1) Nonhealing surgical wound Status: Chronic Current Visit: Yes Qualifiers: Encounter type: initial encounter Qualified Code(s): T81.89XA - Other complications of procedures, not elsewhere classified, initial encounter Code(s): T81.89XA - Other complications of procedures, not elsewhere classified , initial encounter (2) Ulcer of left lower extremity with fat layer exposed Status: Chronic Current Visit: Yes Code(s): L97.922 - Non-pressure chronic ulcer of unspecified part of left lower leg with fat layer exposed (3) Diabetes Status: Chronic Current Visit: Yes Qualifiers: Diabetes mellitus type: type 2 Diabetes mellitus prison insulin use: without prison use Diabetes mellitus complication status: with neurologic complications Diabetes mellitus complication detail: with polyneuropathy Qualified Code(s): E11.42 - Type 2 diabetes mellitus with diabetic polyneuropathy Code(s): E11.9 - Type 2 diabetes mellitus without complications (4) Obesity Status: Chronic Current Visit: Yes Qualifiers: Obesity type: due to excess calories Obesity classification: unspecified obesity classification Code(s): E66.9 - Obesity, unspecified (5) Hx of squamous cell carcinoma excision Status: Chronic Current Visit: Yes Code(s): Z98.890 - Other specified postprocedural states; Z85.9 - Personal history of malignant neoplasm, unspecified History of Present Illness Date of Service: 05/15/18 Chief Complaint: nonhealing wound left lower leg History of Wound: Catina is a pleasant 62 yo female that presents to the wound center for treatment of a nonhealing surgical wound of her left tarango that has not healed. She was referred by Dr. Baires. She underwent an excision of a squamous cell cancer on 03/20/[address] Renata Sorensen and subsequently the wound became infected. She was placed on doxycycline for a MRSA wound culture. She finished the medication about 2 weeks ago. There has not been any improvement in her wound. She denies erythema, increased drainage or odor. She has been using Aquaphor on the wound and gauze. She is diabetic and her most recent A1C in April was 6.5% per her report. She has not had vascular testing other than duplex to r/o blood clot. Past Medical History Past Medical History: Chronic Problems Nonhealing surgical wound (Chronic) Ulcer of left lower extremity with fat layer exposed (Chronic) Hx of squamous cell carcinoma excision (Chronic) Diabetes (Chronic) HLD (hyperlipidemia) (Chronic) Tobacco abuse (Chronic) History of rectal bleeding (Chronic) Obesity (Chronic) Past Medical History: gout. osteoarthritis. copd. htn Surgical History: appendectomy, cholecystectomy, hysterectomy, tonsillectomy, neck surgery, bladder supsension Allergies/Adverse Reactions: Allergies ciprofloxacin [From Cipro] Allergy (Verified 04/11/18 11:33) Rash ciprofloxacin HCl [From Cipro] Allergy (Verified 04/11/18 11:33) Rash clindamycin Allergy (Verified 04/11/18 11:33) throat swelling-see comment section Pt's pcp office has clindamycin listed as allergy, but pt recently was prescribed it and did not appear to have a reaction. fluoxetine HCl [From Prozac] Allergy (Verified 04/11/18 11:33) Rash metronidazole Allergy (Verified 04/11/18 11:33) Anaphylaxis Penicillins Allergy (Verified 04/11/18 11:33) Rash Sulfa (Sulfonamide Antibiotics) Allergy (Verified 04/11/18 11:33) Rash adhesive Adverse Reaction (Verified 04/11/18 11:33) redness with bandaids amoxicillin trihydrate [From Augmentin] Adverse Reaction (Verified 04/11/18 11: 33) thrush/yeast infection potassium clavulanate [From Augmentin] Adverse Reaction (Verified 04/11/18 11:33 ) thrush/yeast infection Home Medications: Ambulatory Orders Medication Instructions Recorded Gabapentin [Neurontin] 600 mg PO BID 06/22/16 Pantoprazole Sodium [Protonix] 40 mg PO DAILY 06/22/16 Ubidecarenone [Co Q-10] 100 mg PO BID 06/22/16 busPIRone [Buspar] 5 mg PO BID 06/22/16 Aspirin [Adult Low Dose Aspirin EC] 81 mg PO DAILY 10/06/17 Citalopram Hydrobromide [Celexa] 40 mg PO QHS 10/06/17 Ergocalciferol [Vitamin D] 50,000 unit PO SA 10/06/17 Hydrocodone/Acetaminophen [[place] 1 each PO Q8H PRN 10/06/17 5-325 Tablet] Metformin HCl 500 mg PO DAILY 10/06/17 Montelukast [Singulair] 10 mg PO QHS 10/06/17 Rosuvastatin Calcium [Crestor] 10 mg PO QHS 10/06/17 Tizanidine HCl [Zanaflex] 1 - 2 tab PO BID PRN PRN 10/06/17 traZODone [Desyrel] 100 mg PO QHS 10/06/17 Celecoxib 100 mg PO BID 04/01/18 Lactobacillus Acidophilus 1 each PO DAILY 04/01/18 [Acidophilus] Lisinopril [Zestril] 5 mg PO DAILY #30 tab 04/02/18 Mupirocin Calcium [Bactroban] 30 gm TP 4X/DAY #1 tube 04/11/18 Ondansetron [Zofran Odt] 4 mg PO Q8H PRN PRN #10 tablet 04/11/18 - Family History Maternal Cancer - colon Paternal Heart Disease Lives: Alone Smoking Status: Current every day smoker Tobacco Use: Cigarettes Alcohol: None Drugs: None Review of Systems Constitutional: Denies: Chills, Fever, Weight Change Eyes: Denies: Pain, Vision Change HEENT: Denies: Difficulty Hearing, Difficulty Swallowing, Sinus Congestion Cardiovascular: Denies: Chest Pain, Palpitations Respiratory: Denies: Cough, Shortness of Breath Gastrointestinal: Denies: Diarrhea, Nausea, Vomiting Genitourinary: Denies: Frequency, Urgency Musculoskeletal: Reports: Joint Pain Skin: Reports: Wounds Neurological: Reports: Numbness, Tingling Psychiatric: Reports: Depression Hematologic/ Lymphatic: Denies: Easy Bruising, Easy Bleeding - Physical Exam Vital Signs Temp Pulse Resp BP 96.6 F L 53 L 16 112/58 L 05/15/18 13:14 05/15/18 13:14 05/15/18 13:14 05/15/18 13:14 General: Alert, Oriented x3, Cooperative, No apparent distress HEENT: Atraumatic, Normocephalic Oral: Moist Mucosa Neck: Supple, No JVD Lungs: Clear to auscultation Cardiovascular: Regular rate, Regular Rhythm Abdomen: Soft, Non Tender, Non-Distended, Obese Extremities: Edema Skin: Ulcer/ Wound Wound Measurements and Assessment WC - Nurse 1 - General Ulcer Measurement Start: 05/15/18 13:13 Freq: Status: Active Protocol: Activity Type Activity Date Activity User E-Sign Co-Sign Detail Recorded Client Recorded Date Recorded By Document 05/15/18 13:14 [id number] 05/15/18 13:44 05/15/18 13:14 Wound Center Nurse 1 [Ulcer Assessment] #1 LEFT TARANGO -Combined with other wound No -Current Size (cm) - Length 1.3 -Current Size (cm) - Width 0.6 -Current Size (cm) - Depth 0.1 -Total Square Cm 0.78 -Date of Last Picture (Recall this 05/15/18 field) -Photo Taken Yes -Epithelialization Small 1-33% -Tunneling No -Undermining/Tunneling No -Circular Undermining No -Exudate Amt None Present (0 %) -Wound Margin Distinct, Outline Attached -Granulation Amt Small (1-33%) -Granulation Quality [place] Red -Necrosis Amt None Present (0 %) -Necrotic Tissue Type Adherent Slough -Structure Exposed None/Limited to Skin Breakdown -Texture (Corie-wound Skin Appearance) Assessed Scarring -Moisture (Corie-wound Skin Appearance No Abnormality ) Assessed -Color (Corie-wound Skin Appearance) No Abnormality Assessed -Temperature (Corie-wound Skin No Abnormality Appearance) (Pt Warm) -Tenderness on Palpation (Corie-wound No Skin Appearance) -Ulcer Cleansing Rinsed/ Irrigated with Saline -Foul Odor after Cleansing No -Anesthetic Used 5% Lidocaine Gel [Edema Assessment] -Lower Limb Edema Present No -Left Calf (cm) 39.6 -Left Ankle (cm) 22.4 WC - Nurse 2 - General Ulcer CM Notes Start: 05/15/18 13:13 Freq: Status: Active Protocol: Activity Type Activity Date Activity User E-Sign Co-Sign Detail Recorded Client Recorded Date Recorded By Document 05/15/18 14:18 [id number] 05/15/18 14:36 05/15/18 14:18 Wound Center Nurse 2 [Procedure/Treatment] #1 LEFT TARANGO -Time 14:33 -Correct Patient Yes -Correct Side, Site, Position Yes -Correct Procedure Yes -Procedure Performed Yes -Type of Procedure Debridement -Clinical Debridement Subcutaneous -Post Debridement Size (cm) - Length 1.5 -Post Debridement Size (cm) - Width 1.1 -Post Debridement Size (cm) - Depth 0.1 -Total Square Cm 1.65 -Wound/Ulcer Outcome Not Healed -Ulcer Cleansing Rinsed/ Irrigated with Saline -Foul Odor after Cleansing No -Bioengineered Tissue No -Topical Lidocaine (%) 5 -Bleeding Controlled with Pressure -Treatment Response Procedure Tolerated Well [See Physician Procedure note for Specifics] Pain Scale: 0-10 Numeric [Pain] -Is Patient Pain Free? Yes Psych/Mental Status: Normal Affect, Appropriate Debridement Note Post-Debridement Measurements/Treatment WC - Nurse 2 - General Ulcer CM Notes Start: 05/15/18 13:13 Freq: Status: Active Protocol: Activity Type Activity Date Activity User E-Sign Co-Sign Detail Recorded Client Recorded Date Recorded By Document 05/15/18 14:18 [id number] 05/15/18 14:36 05/15/18 14:18 Wound Center Nurse 2 #1 LEFT TARANGO -Time 14:33 -Correct Patient Yes -Correct Side, Site, Position Yes -Correct Procedure Yes -Procedure Performed Yes -Type of Procedure Debridement -Clinical Debridement Subcutaneous -Post Debridement Size (cm) - Length 1.5 -Post Debridement Size (cm) - Width 1.1 -Post Debridement Size (cm) - Depth 0.1 -Total Square Cm 1.65 -Wound/Ulcer Outcome Not Healed -Ulcer Cleansing Rinsed/ Irrigated with Saline -Foul Odor after Cleansing No -Bioengineered Tissue No -Topical Lidocaine (%) 5 -Bleeding Controlled with Pressure -Treatment Response Procedure Tolerated Well Pain Scale: 0-10 Numeric Is Patient Pain Free? Yes Wound debrided: left tarango Laterality: Left Type of Debridement: Excisional debridement Anesthesia Used: 4% Lidocaine Solution Depth: Down to and including healthy tissue, in the subcutaneous layer Percentage of wound debrided: 100 Instrument Used: 5mm curette Tissue Removed: yellow slough, devitalized tissue Severity: Fat Layer Exposed Amount of bleeding with debridement: Mild Bleeding Controlled with: Compression and gauze Patient tolerated procedure well Assessment/Plan Active Problems Nonhealing surgical wound (Chronic) Ulcer of left lower extremity with fat layer exposed (Chronic) Hx of squamous cell carcinoma excision (Chronic) Diabetes (Chronic) Obesity (Chronic) Assessment: nonhealing surgical wound Plan: Catina's wound was debrided today. Will treat with Susan changed daily and tubigrip compression. Encouraged increased protein and elevation to help improve edema. Continue to keep tight glucose control. F/U in 1 week
[2018-05-22 14:34] VITALS: BP 108/64; PULSE 61; RESP 16; TEMP 36.2; BMI 29.6
--- NOTE | 2018-05-22 18:19 | PCM.WC.PN ---
(1) Nonhealing surgical wound Status: Chronic Current Visit: Yes Qualifiers: Encounter type: initial encounter Qualified Code(s): T81.89XA - Other complications of procedures, not elsewhere classified, initial encounter Code(s): T81.89XA - Other complications of procedures, not elsewhere classified, initial encounter (2) Ulcer of left lower extremity with fat layer exposed Status: Chronic Current Visit: Yes Code(s): L97.922 - Non-pressure chronic ulcer of unspecified part of left lower leg with fat layer exposed (3) Diabetes Status: Chronic Current Visit: Yes Qualifiers: Diabetes mellitus type: type 2 Diabetes mellitus assisted insulin use: without assisted use Diabetes mellitus complication status: with neurologic complications Diabetes mellitus complication detail: with polyneuropathy Qualified Code(s): E11.42 - Type 2 diabetes mellitus with diabetic polyneuropathy Code(s): E11.9 - Type 2 diabetes mellitus without complications (4) Obesity Status: Chronic Current Visit: Yes Qualifiers: Obesity type: due to excess calories Obesity classification: unspecified obesity classification Code(s): E66.9 - Obesity, unspecified (5) Hx of squamous cell carcinoma excision Status: Chronic Current Visit: Yes Code(s): Z98.890 - Other specified postprocedural states; Z85.9 - Personal history of malignant neoplasm, unspecified Type of Wound Date of Service: 05/22/18 Chief Complaint: nonhealing wound left lower leg History of Wound: Catina is a pleasant 62 yo female that presents to the wound center for treatment of a nonhealing surgical wound of her left tarango that has not healed. She was referred by Dr. Baires. She underwent an excision of a squamous cell cancer on 03/20/[address] Renata Sorensen and subsequently the wound became infected. She was placed on doxycycline for a MRSA wound culture. She finished the medication about 2 weeks ago. There has not been any improvement in her wound. She denies erythema, increased drainage or odor. She has been using Aquaphor on the wound and gauze. She is diabetic and her most recent A1C in April was 6.5% per her report. She has not had vascular testing other than duplex to r/o blood clot. Progress of Wound: Catina's wounds have improved since her last visit. She does note that she is unable to tolerate the double layer tubigrip due to pain in her feet. She has not had any problems with her dressings. Denies any fever or chills. - Physical Exam Vital Signs Temp Pulse Resp BP 97.1 F L 61 16 108/64 05/22/18 14:34 05/22/18 14:34 05/22/18 14:34 05/22/18 14:34 General: Alert, Oriented x3, Cooperative, No apparent distress HEENT: Atraumatic, Normocephalic Oral: Moist Mucosa Extremities: Edema Skin: Ulcer/ Wound Wound Measurements and Assessment WC - Nurse 1 - General Ulcer Measurement Start: 05/15/18 13:13 Freq: Status: Active Protocol: Activity Type Activity Date Activity User E-Sign Co-Sign Detail Recorded Client Recorded Date Recorded By Document 05/22/18 14:34 [id number] 05/22/18 14:39 05/22/18 14:34 Wound Center Nurse 1 [Ulcer Assessment] #1 LEFT TARANGO -Combined with other wound No -Current Size (cm) - Length 0.9 -Current Size (cm) - Width 0.6 -Current Size (cm) - Depth 0.1 -Total Square Cm 0.54 -Photo Taken No -Epithelialization Small 1-33% -Tunneling No -Undermining/Tunneling No -Circular Undermining No -Exudate Amt Small (1-33%) -Exudate Type Serosanguineous -Wound Margin Distinct, Outline Attached -Granulation Amt Small (1-33%) -Granulation Quality [place] Red -Necrosis Amt None Present (0 %) -Necrotic Tissue Type Adherent Slough -Structure Exposed None/Limited to Skin Breakdown -Texture (Corie-wound Skin Appearance) No Abnormality Assessed -Moisture (Corie-wound Skin Appearance No Abnormality ) Assessed -Color (Corie-wound Skin Appearance) No Abnormality Assessed -Temperature (Corie-wound Skin No Abnormality Appearance) (Pt Warm) -Tenderness on Palpation (Corie-wound No Skin Appearance) -Ulcer Cleansing Rinsed/ Irrigated with Saline -Foul Odor after Cleansing No -Anesthetic Used 4% Lidocaine Solution [Edema Assessment] -Lower Limb Edema Present No -Left Calf (cm) 37.3 -Left Ankle (cm) 27.6 WC - Nurse 2 - General Ulcer CM Notes Start: 05/15/18 13:13 Freq: Status: Active Protocol: Activity Type Activity Date Activity User E-Sign Co-Sign Detail Recorded Client Recorded Date Recorded By Document 05/22/18 15:09 [id number] 05/22/18 15:14 05/22/18 15:09 Wound Center Nurse 2 [Procedure/Treatment] #1 LEFT TARANGO -Time 15:13 -Correct Patient Yes -Correct Side, Site, Position Yes -Correct Procedure Yes -Procedure Performed Yes -Type of Procedure Debridement -Clinical Debridement Subcutaneous -Post Debridement Size (cm) - Length 1.2 -Post Debridement Size (cm) - Width 0.7 -Post Debridement Size (cm) - Depth 0.2 -Total Square Cm 0.84 -Wound/Ulcer Outcome Not Healed -Ulcer Cleansing Rinsed/ Irrigated with Saline -Foul Odor after Cleansing No -Bioengineered Tissue No -Topical Lidocaine (%) 4 -Bleeding Controlled with Pressure -Treatment Response Procedure Tolerated Well [See Physician Procedure note for Specifics] Pain Scale: 0-10 Numeric [Pain] -Is Patient Pain Free? Yes Psych/Mental Status: Normal Affect, Appropriate Debridement Note Post-Debridement Measurements/Treatment WC - Nurse 2 - General Ulcer CM Notes Start: 05/15/18 13:13 Freq: Status: Active Protocol: Activity Type Activity Date Activity User E-Sign Co-Sign Detail Recorded Client Recorded Date Recorded By Document 05/15/18 14:18 [id number] 05/15/18 14:36 Document 05/22/18 15:09 [id number] 05/22/18 15:14 05/15/18 05/22/18 14:18 15:09 Wound Center Nurse 2 #1 LEFT TARANGO -Time 14:33 15:13 -Correct Patient Yes Yes -Correct Side, Site, Position Yes Yes -Correct Procedure Yes Yes -Procedure Performed Yes Yes -Type of Procedure Debridement Debridement -Clinical Debridement Subcutaneous Subcutaneous -Post Debridement Size (cm) - Length 1.5 1.2 -Post Debridement Size (cm) - Width 1.1 0.7 -Post Debridement Size (cm) - Depth 0.1 0.2 -Total Square Cm 1.65 0.84 -Wound/Ulcer Outcome Not Healed Not Healed -Ulcer Cleansing Rinsed/ Rinsed/ Irrigated with Irrigated with Saline Saline -Foul Odor after Cleansing No No -Bioengineered Tissue No No -Topical Lidocaine (%) 5 4 -Bleeding Controlled with Pressure Pressure -Treatment Response Procedure Procedure Tolerated Well Tolerated Well Pain Scale: 0-10 Numeric Is Patient Pain Free? Yes Yes Wound debrided: left tarango Laterality: Left Type of Debridement: Excisional debridement Anesthesia Used: 4% Lidocaine Solution Depth: Down to and including healthy tissue, in the subcutaneous layer Percentage of wound debrided: 100 Instrument Used: 5mm curette Tissue Removed: yellow slough, devitalized tissue Severity: Fat Layer Exposed Amount of bleeding with debridement: Mild Bleeding Controlled with: Compression and gauze Patient tolerated procedure well Assessment/Plan Active Problems Nonhealing surgical wound (Chronic) Ulcer of left lower extremity with fat layer exposed (Chronic) Hx of squamous cell carcinoma excision (Chronic) Diabetes (Chronic) Obesity (Chronic) Assessment: nonhealing surgical wound Plan: Catina's wound was debrided again today. Will continue to treat with Susan changed daily and change to single layer tubigrip compression. Encouraged increased protein and elevation to help improve edema. Continue to keep tight glucose control. F/U in 1 week
--- NOTE | 2018-05-22 18:22 | PN.PCM_ITS ---
(1) Nonhealing surgical wound Status: Chronic Current Visit: Yes Qualifiers: Encounter type: initial encounter Qualified Code(s): T81.89XA - Other complications of procedures, not elsewhere classified, initial encounter Code(s): T81.89XA - Other complications of procedures, not elsewhere classified , initial encounter (2) Ulcer of left lower extremity with fat layer exposed Status: Chronic Current Visit: Yes Code(s): L97.922 - Non-pressure chronic ulcer of unspecified part of left lower leg with fat layer exposed (3) Diabetes Status: Chronic Current Visit: Yes Qualifiers: Diabetes mellitus type: type 2 Diabetes mellitus mcfp insulin use: without mcfp use Diabetes mellitus complication status: with neurologic complications Diabetes mellitus complication detail: with polyneuropathy Qualified Code(s): E11.42 - Type 2 diabetes mellitus with diabetic polyneuropathy Code(s): E11.9 - Type 2 diabetes mellitus without complications (4) Obesity Status: Chronic Current Visit: Yes Qualifiers: Obesity type: due to excess calories Obesity classification: unspecified obesity classification Code(s): E66.9 - Obesity, unspecified (5) Hx of squamous cell carcinoma excision Status: Chronic Current Visit: Yes Code(s): Z98.890 - Other specified postprocedural states; Z85.9 - Personal history of malignant neoplasm, unspecified Type of Wound Date of Service: 05/22/18 Chief Complaint: nonhealing wound left lower leg History of Wound: Catina is a pleasant 62 yo female that presents to the wound center for treatment of a nonhealing surgical wound of her left tarango that has not healed. She was referred by Dr. Baires. She underwent an excision of a squamous cell cancer on 03/20/[address] Renata Sorensen and subsequently the wound became infected. She was placed on doxycycline for a MRSA wound culture. She finished the medication about 2 weeks ago. There has not been any improvement in her wound. She denies erythema, increased drainage or odor. She has been using Aquaphor on the wound and gauze. She is diabetic and her most recent A1C in April was 6.5% per her report. She has not had vascular testing other than duplex to r/o blood clot. Progress of Wound: Catina's wounds have improved since her last visit. She does note that she is unable to tolerate the double layer tubigrip due to pain in her feet. She has not had any problems with her dressings. Denies any fever or chills. - Physical Exam Vital Signs Temp Pulse Resp BP 97.1 F L 61 16 108/64 05/22/18 14:34 05/22/18 14:34 05/22/18 14:34 05/22/18 14:34 General: Alert, Oriented x3, Cooperative, No apparent distress HEENT: Atraumatic, Normocephalic Oral: Moist Mucosa Extremities: Edema Skin: Ulcer/ Wound Wound Measurements and Assessment WC - Nurse 1 - General Ulcer Measurement Start: 05/15/18 13:13 Freq: Status: Active Protocol: Activity Type Activity Date Activity User E-Sign Co-Sign Detail Recorded Client Recorded Date Recorded By Document 05/22/18 14:34 [id number] 05/22/18 14:39 05/22/18 14:34 Wound Center Nurse 1 [Ulcer Assessment] #1 LEFT TARANGO -Combined with other wound No -Current Size (cm) - Length 0.9 -Current Size (cm) - Width 0.6 -Current Size (cm) - Depth 0.1 -Total Square Cm 0.54 -Photo Taken No -Epithelialization Small 1-33% -Tunneling No -Undermining/Tunneling No -Circular Undermining No -Exudate Amt Small (1-33%) -Exudate Type Serosanguineous -Wound Margin Distinct, Outline Attached -Granulation Amt Small (1-33%) -Granulation Quality [place] Red -Necrosis Amt None Present (0 %) -Necrotic Tissue Type Adherent Slough -Structure Exposed None/Limited to Skin Breakdown -Texture (Corie-wound Skin Appearance) No Abnormality Assessed -Moisture (Corie-wound Skin Appearance No Abnormality ) Assessed -Color (Corie-wound Skin Appearance) No Abnormality Assessed -Temperature (Corie-wound Skin No Abnormality Appearance) (Pt Warm) -Tenderness on Palpation (Corie-wound No Skin Appearance) -Ulcer Cleansing Rinsed/ Irrigated with Saline -Foul Odor after Cleansing No -Anesthetic Used 4% Lidocaine Solution [Edema Assessment] -Lower Limb Edema Present No -Left Calf (cm) 37.3 -Left Ankle (cm) 27.6 WC - Nurse 2 - General Ulcer CM Notes Start: 05/15/18 13:13 Freq: Status: Active Protocol: Activity Type Activity Date Activity User E-Sign Co-Sign Detail Recorded Client Recorded Date Recorded By Document 05/22/18 15:09 [id number] 05/22/18 15:14 05/22/18 15:09 Wound Center Nurse 2 [Procedure/Treatment] #1 LEFT TARANGO -Time 15:13 -Correct Patient Yes -Correct Side, Site, Position Yes -Correct Procedure Yes -Procedure Performed Yes -Type of Procedure Debridement -Clinical Debridement Subcutaneous -Post Debridement Size (cm) - Length 1.2 -Post Debridement Size (cm) - Width 0.7 -Post Debridement Size (cm) - Depth 0.2 -Total Square Cm 0.84 -Wound/Ulcer Outcome Not Healed -Ulcer Cleansing Rinsed/ Irrigated with Saline -Foul Odor after Cleansing No -Bioengineered Tissue No -Topical Lidocaine (%) 4 -Bleeding Controlled with Pressure -Treatment Response Procedure Tolerated Well [See Physician Procedure note for Specifics] Pain Scale: 0-10 Numeric [Pain] -Is Patient Pain Free? Yes Psych/Mental Status: Normal Affect, Appropriate Debridement Note Post-Debridement Measurements/Treatment WC - Nurse 2 - General Ulcer CM Notes Start: 05/15/18 13:13 Freq: Status: Active Protocol: Activity Type Activity Date Activity User E-Sign Co-Sign Detail Recorded Client Recorded Date Recorded By Document 05/15/18 14:18 [id number] 05/15/18 14:36 Document 05/22/18 15:09 [id number] 05/22/18 15:14 05/15/18 05/22/18 14:18 15:09 Wound Center Nurse 2 #1 LEFT TARANGO -Time 14:33 15:13 -Correct Patient Yes Yes -Correct Side, Site, Position Yes Yes -Correct Procedure Yes Yes -Procedure Performed Yes Yes -Type of Procedure Debridement Debridement -Clinical Debridement Subcutaneous Subcutaneous -Post Debridement Size (cm) - Length 1.5 1.2 -Post Debridement Size (cm) - Width 1.1 0.7 -Post Debridement Size (cm) - Depth 0.1 0.2 -Total Square Cm 1.65 0.84 -Wound/Ulcer Outcome Not Healed Not Healed -Ulcer Cleansing Rinsed/ Rinsed/ Irrigated with Irrigated with Saline Saline -Foul Odor after Cleansing No No -Bioengineered Tissue No No -Topical Lidocaine (%) 5 4 -Bleeding Controlled with Pressure Pressure -Treatment Response Procedure Procedure Tolerated Well Tolerated Well Pain Scale: 0-10 Numeric Is Patient Pain Free? Yes Yes Wound debrided: left tarango Laterality: Left Type of Debridement: Excisional debridement Anesthesia Used: 4% Lidocaine Solution Depth: Down to and including healthy tissue, in the subcutaneous layer Percentage of wound debrided: 100 Instrument Used: 5mm curette Tissue Removed: yellow slough, devitalized tissue Severity: Fat Layer Exposed Amount of bleeding with debridement: Mild Bleeding Controlled with: Compression and gauze Patient tolerated procedure well Assessment/Plan Active Problems Nonhealing surgical wound (Chronic) Ulcer of left lower extremity with fat layer exposed (Chronic) Hx of squamous cell carcinoma excision (Chronic) Diabetes (Chronic) Obesity (Chronic) Assessment: nonhealing surgical wound Plan: Catina's wound was debrided again today. Will continue to treat with Susan changed daily and change to single layer tubigrip compression. Encouraged increased protein and elevation to help improve edema. Continue to keep tight glucose control. F/U in 1 week
== END 2018-06-09 23:59 ==
LOC: WC 14:30
PROVIDERS: Family Provider Family Medicine; PCP Family Medicine; Visit Provider Family Medicine
DX: L08.89 Other specified local infections of the skin and subcutaneous tissue (principal); E11.42 Type 2 diabetes mellitus with diabetic polyneuropathy; T81.4XXA Infection following a procedure, initial encounter; E66.9 Obesity, unspecified; Z71.3 Dietary counseling and surveillance; L97.822 Non-pressure chronic ulcer of other part of left lower leg with fat layer exposed; Z85.9 Personal history of malignant neoplasm, unspecified; E78.5 Hyperlipidemia, unspecified; I10 Essential (primary) hypertension; J44.9 Chronic obstructive pulmonary disease, unspecified; Z79.899 Other long term (current) drug therapy; F17.210 Nicotine dependence, cigarettes, uncomplicated; Z86.14 Personal history of Methicillin resistant Staphylococcus aureus infection
CPT/HCPCS: 11042; 99213; G0463

== ENCOUNTER 2019-08-12 09:14 | Emergency (ER) | payer MEDICAID, SELFPAY ==
[2019-08-12 09:16] VITALS: BP 122/63; PULSE 76; RESP 14; TEMP 36.9; O2SAT 96; BMI 29.9
--- NOTE | 2019-08-12 09:37 | CT_ITS ---
STUDY: CT ABDOMEN AND PELVIS WITH CONTRAST REASON FOR EXAM: Female, 64 years old. Abdominal pain and rectal bleeding. RADIATION DOSAGE (If Supplied By Facility): CTDIvol = ( 17.47 ) mGy, DLP = ( 945.04 ) mGycm TECHNIQUE: Transaxial images were obtained from the dome of the diaphragm to the symphysis pubis with oral contrast. IV/Oral Isovue 300 100 was administered. Sagittal and coronal images were reconstructed. Individualized dose optimization techniques were used for this CT. COMPARISON: Comparison is made with prior study dated September 02, 2015. FINDINGS: The visualized lung bases are unremarkable. Coronary artery calcification. There is decreased attenuation of the liver consistent with steatosis. Stable 1 cm cyst in the anterior superior aspect of the right lobe of the liver. There are surgical clips in the gallbladder fossa consistent with a prior cholecystectomy. Normal spleen. Normal pancreas. Normal bilateral adrenal glands. Normal right kidney. Normal left kidney. There is a small hiatal hernia. Normal small intestine. There is haustral thickening of the cecum as well as the proximal descending colon. Mild degree of increased markings are seen surrounding fat. There is also evidence of a mucosal thickening of the terminal ileum. An inflammatory process should be ruled out. There are multiple colonic diverticula consistent with diverticulosis. The patient is status post appendectomy. There is diffuse atherosclerotic calcification of the abdominal aorta and its major visceral branches, without a demonstrated aneurysm. Normal inferior vena cava. Normal retroperitoneum. Normal urinary bladder. There is absence of the uterus consistent with a prior hysterectomy. There is a small umbilical hernia containing fat. There are diffuse degenerative changes of the visualized lumbar spine. CT/Abdomen/Pelvis WITH Contrast IMPRESSION: Fatty infiltration of the liver. Thickening of the haustra involving the cecum and proximal ascending colon with thickening of the terminal ileum. Inflammatory process should be ruled out. Sigmoid diverticulosis. Electronically Signed: Pavel Carrero, at 12:44 EDT , Service support ,
[2019-08-12] MEDS: 0.9% Normal Saline 1,000 ML 1000 ML IV (09:46)
[2019-08-12] MEDS: Ondansetron 4 MG/2 ML Vial IV (09:47)
--- NOTE | 2019-08-12 09:49 | ED.VISSUMM ---
- ER Visit Summary Date of Service: 08/12/19 Chief Complaint: Rectal bleeding History of Present Illness: The patient is a 64 F who presents with rectal bleeding that began this morning. Patient states she was having a bowel movement and noticed a lot of bright red blood in her toilet. Patient states she has been having pain over her lower abdomen. Patient describes it as cramping. Patient admits to some nausea but denies any vomiting. Patient states nothing makes her pain better or worse. Patient denies any urinary complaints. Physical Examination: Vital signs are stable. Patient is afebrile. Patient is in no acute distress. Oral mucosa is pink and moist. Neck is supple. Trachea is midline. There is no JVD noted. Heart was regular rate and rhythm. Lungs are clear and equal bilaterally. Abdomen is soft. Bowel sounds are normal. There is lower abdominal tenderness. There is no rebound or guarding noted. Rectal exam showed good sphincter tone. There are no bleeding hemorrhoids. There are no masses palpated. There is brown stool in the rectal vault. Test Results: CBC was normal. Comprehensive metabolic profile was normal. CT scan of the abdomen and pelvis was obtained. There is colitis of the proximal ascending colon and distal ileum. Stool guaiac was positive. Emergency Department Course and Treatment: Patient was given IV fluids here. Patient was feeling better on reevaluation. Patient wants to go home. Patient was given a prescription for Suprax because of her allergies to penicillin, Cipro, Flagyl, and sulfa. Pharmacist called and stated that Suprax was not covered. Patient changed to Levaquin. Patient was instructed to follow-up with her primary care physician in 5 to 7 days. Patient understood and was agreeable with the plan. All questions were answered. Disposition: Discharge home Impression: Colitis This note was generated with [employer] dictation software. It may contain incorrect words, spelling, and punctuation that were not noted in review of the chart prior to signing ED Disposition - Plan for ED Patient: Disposition: Home or Assisted Living Diagnosis: Colitis Instructions: Evaluating and Treating Rectal Bleeding Referrals: Bebeto Baires MD [Primary Care Provider] - 5-7 Days
[2019-08-12 09:52] LABS: Absolute Lymphocyte Count 1.77 X10^3/uL (0.83-4.51); Absolute Neutrophil Count 2.6 X10^3/uL (2.0-7.7); Basophil# 0.01 X10^3/uL; Basophil% 0.2 % (0-1); Eosinophil# 0.09 X10^3/uL; Eosinophils% 1.9 % (0-5); Hematocrit 37.9 % (37-47); Hemoglobin 12.7 g/dL (12.0-15.0); Lymphocyte # 1.77 X10^3/ul (4.0); Mean Corp Hgb Conc 33.5 g/dL (32-36); Mean Corpuscular Hgb 32.7 pg (27.0-32.0); Mean Corpuscular Volume 97.7 fL (81-99); Mean Platelet Vol. 9.7 fl (6.2-12.0); Monocyte# 0.33 X10^3/uL; Monocyte% 6.9 % (0-10); NRBC Flagged by Analyzer 0 % (0-5); Neutrophil # 2.58 X10^3/uL (2.7-7.7); Neutrophil % 53.8 % (47-70); Platelet Count 206 K/mm3 (150-450); RBC Distribution Width CV 12.8 % (11.6-14.6); RBC Distribution Width SD 45.2 fl (35.1-43.9); Red Blood Count 3.88 M/mm3 (4.2-5.4); White Blood Count 4.8 K/mm3 (4.4-11.0)
[2019-08-12 09:56] LABS: International Normalized Ratio 1.1; Prothrombin Time (Protime)PT. 13.6 SECONDS (11.7-14.9)
[2019-08-12 09:57] LABS: Partial Thromboplast Time 29.7 Seconds (24.1-36.2)
[2019-08-12 10:03] LABS: ALB/GLOB Ratio 1.1 RATIO (0.9-2.4); AST(SGOT) 23 U/L (15-37); Alanine Aminotransfer ALT/SGPT 34 U/L (13-56); Albumin, Serum 4.3 g/dL (3.2-5.0); Alkaline Phosphatase 35 U/L (45-117); Anion Gap 7 (5-15); BUN 10 mg/dL (7-18); BUN/Creat Ratio 10.1 RATIO (10-20); Calcium,Total 9.5 mg/dL (8.5-10.1); Chloride 100 mmol/L (98-107); Creatinine, Serum 0.99 mg/dL (0.55-1.02); EST Glomerular Filtration Rate 61 mL/min (>60); Est Glom Filt Rate - Afr Amer 73 mL/min (>60); Glucose 208 mg/dL (74-106); Lipase 211 U/L (73-393); Potassium 4.4 mmol/L (3.5-5.1); Protein, Total 8.3 g/dL (6.4-8.2); Sodium Level 133 mmol/L (136-145)
[2019-08-12 11:17] VITALS: RESP 18
[2019-08-12 15:22] VITALS: BP 127/66; PULSE 74; RESP 15; O2SAT 98
== END 2019-08-12 15:23 | disposition home or self-care (01) ==
PROVIDERS: Emergency Provider Emergency Medicine; Family Provider Family Medicine; PCP Family Medicine
DX: K52.9 Noninfective gastroenteritis and colitis, unspecified (principal); E11.9 Type 2 diabetes mellitus without complications; F41.9 Anxiety disorder, unspecified; Z79.82 Long term (current) use of aspirin; Z79.84 Long term (current) use of oral hypoglycemic drugs; Z79.899 Other long term (current) drug therapy; Z72.0 Tobacco use
CPT/HCPCS: 74177; 80053; 82274; 83690; 85025; 85610; 85730; 96361; 96374; 99283; J7030; Q9967; A4216; J2405

== ENCOUNTER 2020-09-18 11:44 | Emergency (ER) | payer MEDICAID, SELFPAY ==
[2020-09-18 11:46] VITALS: BP 150/91; PULSE 72; RESP 16; TEMP 36.3; O2SAT 99; BMI 28.5
--- NOTE | 2020-09-18 12:05 | RAD_ITS ---
STUDY: X-RAY - RIGHT SHOULDER REASON FOR EXAM: Female, 65 years old. PAIN STARTING YESTERDAY ANTERIOR SHOULDER AREA, NKI, HX ROTATOR CUFF TEAR TECHNIQUE: 4 view(s) of the shoulder. COMPARISON: None. FINDINGS: There is moderate degenerative arthrosis of the glenohumeral articulation. There is degenerative arthrosis of the acromioclavicular joint without inferior osseous spur formation. Normal acromion. Normal humeral head and visualized proximal humerus. There is periarticular soft tissue calcification consistent with a calcific tendinitis. Normal visualized pulmonary apex. RAD/Shoulder min 2 Views IMPRESSION: Calcific tendinitis. Electronically Signed: Pavel Carrero, at 12:35 EST , Service support ,
--- NOTE | 2020-09-18 12:05 | ED.VIS.UPPEX ---
History of Present Illness Chief Complaint: Upper Extremity Injury Detail of Chief Complaint: pain no injury Informant: Patient Onset: Yesterday Context: - - awoke w/ pain, no known injury Timing: Continuous Quality of Pain: Aching Location: R shoulder Current Severity: Severe Maximum Severity: Severe Worsened by: movement Relieved by: remaining still Associated Symptoms: Negative for: Parasthesia, Weakness, Loss of Funtion Narrative: 65-year-old has been having severe pain in her right shoulder mostly anteriorly, with radiation down her arm, no numbness or tingling. No known injury, woke up with it yesterday. No fevers or chills or systemic symptoms. Chronic pain in her neck and right shoulder, she has been diagnosed with a rotator cuff tear that was not repaired surgically but she has had cortisone injections for it in the past, through orthopedics at [facility]. She states the day before the onset of pain, she was ilsa but denies any significant overhead movements. She is right-hand dominant. Prior similar symptoms: Yes Recent Illness/Hospitalization: No - Past Medical History (1) Diabetes Status: Chronic (2) HLD (hyperlipidemia) Status: Chronic (3) Hx of squamous cell carcinoma excision Status: Chronic Past Medical History - Allergies and Home Meds Allergies/Adverse Reactions: Allergies ciprofloxacin [From Cipro] Allergy (Verified 09/18/20 11:46) Rash ciprofloxacin HCl [From Cipro] Allergy (Verified 09/18/20 11:46) Rash clindamycin Allergy (Verified 09/18/20 11:46) throat swelling-see comment section Pt's pcp office has clindamycin listed as allergy, but pt recently was prescribed it and did not appear to have a reaction. fluoxetine HCl [From Prozac] Allergy (Verified 09/18/20 11:46) Rash metronidazole Allergy (Verified 09/18/20 11:46) Anaphylaxis Penicillins Allergy (Verified 09/18/20 11:46) Rash Sulfa (Sulfonamide Antibiotics) Allergy (Verified 09/18/20 11:46) Rash adhesive Adverse Reaction (Verified 09/18/20 11:46) redness with bandaids amoxicillin trihydrate [From Augmentin] Adverse Reaction (Verified 09/18/20 11:46) thrush/yeast infection potassium clavulanate [From Augmentin] Adverse Reaction (Verified 09/18/20 11:46) thrush/yeast infection Primary Care Physician: Bebeto Baires MD [Primary Care Provider] - Doctors: Dr. Dickson-orthopedics Surgical History: appendectomy, cholecystectomy, hysterectomy, tonsillectomy, neck surgery, bladder supsension Smoking Status: Current every day smoker - Family History Maternal Family History: Reports: Cancer - colon Paternal Family History: Reports: Heart Disease Review of Systems General: Denies: Chills, Fever, Sweats Musculoskeletal: Reports: Extremity Pain. Denies: Swelling Skin: Denies: Rash, Wounds Neurological: Denies: Headache, Weakness, Numbness Physical Exam Vital Signs/Narrative: Vital Signs Temp Pulse Resp BP Pulse Ox 09/18/20 11:46 97.4 F L 72 16 150/91 H 99 General: Well nourished, Well developed, - - No acute distress but looks uncomfortable, holding her right upper extremity in position of comfort Head: Normocephalic, Atraumatic Neck: Nontender, Full ROM Respiratory: No distress Extremeties: Severely tender at the right anterior shoulder, long head of the biceps, also mildly tender at the insertion of the biceps at the antecubital fossa, but nontender throughout the distribution of the muscle in between. All arm compartments are soft and nondistended. There is no subacromial tenderness. She can abduct to almost 90 degrees, she does have pain at that point. She cannot flex her arm up and forward at all because of significant discomfort in trying to do so. She can internally and externally rotate. Skin: Normal color, No rash, No Trauma Neurological: Alert, Oriented x3, Cranial nerves II-XII grossly intact, Normal Strength, Normal Sensation - Including right upper extremity axillary, median, ulnar, radial nerve distributions Psychological: Normal affect, Normal Mood Diagnostic/Tx/Re-eval Clinical Impression(s) from Imaging Studies Shoulder X-Ray 09/18/20 12:05 IMPRESSION: Calcific tendinitis. Electronically Signed: Pavel Carrero, at 12:35 EST , Service support , - Medical Decision Making Patient was given a sling, [place], and orthopedic follow-up. She is agreeable to this plan. We will give her a short prescription for [place]. ED Disposition - Plan for ED Patient: Disposition: Home or Assisted Living Diagnosis: Calcific tendinitis of right shoulder Instructions: ED Tendinitis Calcific Prescriptions: Hydrocodone Bitart/Apap 5-325 [[place] 5MG-325MG] 1 tablet PO Q6H PRN PRN 3 Days #12 tablet PRN Reason: Pain Transmission Status: Sent to [facility] Referrals: Carlos Dicksno MD [STAFF PHYSICIAN] - As soon as possible
[2020-09-18] MEDS: HYDROcodone Bitartrate/Apap 5/325 Tablet PO (12:28)
[2020-09-18 14:10] VITALS: BP 124/73; PULSE 69; RESP 16; O2SAT 97
== END 2020-09-18 14:12 | disposition home or self-care (01) ==
PROVIDERS: Emergency Provider Emergency Medicine; PCP Family Medicine
DX: M75.31 Calcific tendinitis of right shoulder (principal); F17.200 Nicotine dependence, unspecified, uncomplicated; E11.9 Type 2 diabetes mellitus without complications; Z79.84 Long term (current) use of oral hypoglycemic drugs
CPT/HCPCS: 73030; 99283

== ENCOUNTER → 2022-03-19 | Outpatient (CLI) | payer MEDICAID, SELFPAY ==
--- NOTE | 2022-03-19 12:49 | CT_ITS ---
STUDY: LOW DOSE CT LUNG CANCER SCREENING REASON FOR EXAM: Female, 66 years old. One half pack per day smoker x45 years RADIATION DOSAGE (If Supplied By Facility): CTDIvol = ( 3.02 ) mGy, DLP = ( 100.05 ) mGycm TECHNIQUE: No contrast was administered. Low dose technique was utilized (average mAS-38 and kVp 120). 1.25 mm axial source images with a slice interval of 1.25-mm were reconstructed in lung windows. 2.5 mm axial source images with a slice interval of 2.5-mm were reconstructed in lung windows. 5.0 mm axial source images with a slice interval of 5.0-mm were reconstructed in soft tissue windows. COMPARISON: None. FINDINGS: Lung windows show lungs to be mildly hyperexpanded. Interstitial changes noted in both lung roberts without an organized infiltrate. There is a noncalcified nodule in the right lower lobe on axial image 132 measuring 4.3 mm. Since there are no previous studies available for comparison, and this nodule is likely too small to be accurately evaluated with pet study, a six-month follow-up is recommended to ensure stability. There is also a subtle pleural-based nodule in the right middle lobe on axial image 161 measuring 5.2 mm. Limited soft tissue windows show a normal-appearing thyroid gland. No suspicious adenopathy. There are calcified coronary vessels. No pleural or pericardial effusions. Limited cuts through the upper abdomen do not show a suspicious abnormality. Bony structures show degenerative change. CT/Low Dose CT Lung Screening IMPRESSION: Lung-RADS category 3 - Continue screening with LDCT in 6 months. IMPORTANT NOTES FOR USE: ACR Lung-RADS Version 1.1 Assessment Categories Release Date: 2018 Category: Coded 0-4 bases on nodule(s) with highest degree of suspicion. Negative screen is defined as categories 1 and 2; a positive screen is defined as categories 3 and 4. Category 3 and 4A nodules that are unchanged on interval CT should be coded as category 2, and individuals returned to screening in 12 months. Category 4X: Category 3 or 4 nodules with additional imaging findings that increase the suspicion of lung cancer, such as spiculation, GGN that doubles in size in 1 year, enlarged lymph notes, etc. Category Modifiers: S (significant finding unrelated to lung cancer) Electronically Signed: Valdemar Vera MD at 17:42 EDT ,
== END | disposition home or self-care (01) ==
LOC: CT 12:47
PROVIDERS: PCP Family Medicine
DX: F17.210 Nicotine dependence, cigarettes, uncomplicated (principal)
CPT/HCPCS: 71271

== ENCOUNTER 2023-01-12 06:27 | Emergency (ER) | payer MEDICARE, MEDICAID, SELFPAY ==
[2023-01-12 06:29] VITALS: BP 149/71; PULSE 61; RESP 18; TEMP 36.6; O2SAT 98; BMI 29.4
--- NOTE | 2023-01-12 06:41 | EKG12_ITS ---
Test Reason : CP Blood Pressure : / mmHG Vent. Rate : 059 BPM Atrial Rate : 059 BPM P-R Int : 192 ms QRS Dur : 086 ms QT Int : 440 ms P-R-T Axes : 059 048 067 degrees QTc Int : 435 ms Sinus bradycardia Otherwise normal ECG Confirmed by LIDIA HOLGUIN, CRISTHIAN ([id number]), material expeditor ALFREDO LEE ([id number]) on 01/13/2023 1:54:48 PM Referred By: AMY Confirmed By:CRISTHIAN MURILLO MD
--- NOTE | 2023-01-12 06:45 | RAD_ITS ---
EXAM: XR CHEST, 1 VIEW CLINICAL INDICATION: chest pain TECHNIQUE: Frontal view of the chest. This report was created using [employer] report generation technology. COMPARISON: Previous chest radiograph of 04/01/2018. This chest CT of 03/19/2022. FINDINGS: LUNGS AND PLEURAL SPACES: No acute pulmonary infiltrates or pleural effusions are identified. The small right lower lobe nodule noted on the prior CT is not visualized on the current chest radiograph, and cannot be evaluated. No pneumothorax. HEART: Heart size is upper normal with normal pulmonary vasculature. MEDIASTINUM: Calcific aortic arch. The thoracic aorta is not elongated. No mediastinal widening. BONES/JOINTS: Fixation plate and screws again projected over the lower cervical spine. Degenerative spurring noted throughout the thoracic spine. SOFT TISSUES: Unremarkable. RAD/Chest 1 View (Portable) IMPRESSION: No significant interval change. No acute findings in the chest. Electronically Signed: Duc Almodovar MD at 7:19 EST ,
[2023-01-12] MEDS: Ondansetron 4 MG/2 ML Vial IV (06:50)
[2023-01-12] MEDS: Aspirin 81 MG TAB.CHEW 324 MG PO (06:50)
[2023-01-12] MEDS: Morphine 4 MG/ML Syringe IV (06:50)
[2023-01-12 07:03] LABS: Absolute Lymphocyte Count 2.73 X10^3/uL (0.83-4.51); Absolute Neutrophil Count 2.7 X10^3/uL (2.0-7.7); Basophil# 0.02 X10^3/uL; Basophil% 0.3 % (0-1); Eosinophil# 0.14 X10^3/uL; Eosinophils% 2.3 % (0-5); Hematocrit 34.4 % (37-47); Hemoglobin 11.6 g/dL (12.0-15.0); Lymphocyte # 2.73 X10^3/ul (0.83-4.51); Lymphocyte % 45.5 % (19-41); Mean Corp Hgb Conc 33.7 g/dL (32-36); Mean Corpuscular Hgb 31.4 pg (27.0-32.0); Mean Corpuscular Volume 93.2 fL (81-99); Mean Platelet Vol. 9.5 fl (6.2-12.0); Monocyte# 0.37 X10^3/uL; Monocyte% 6.2 % (0-10); NRBC Flagged by Analyzer 0 % (0-5); Neutrophil # 2.73 X10^3/uL (2.7-7.7); Neutrophil % 45.5 % (47-70); Platelet Count 222 K/mm3 (150-450); RBC Distribution Width CV 12.6 % (11.6-14.6); Red Blood Count 3.69 M/mm3 (4.2-5.4)
--- NOTE | 2023-01-12 07:10 | EDS_ITS ---
HPI History of Present Illness Chief Complaint: Chest Pain Informant: patient Narrative Narrative: States that she has had pain for about 1 week now. It started in the right periscapular area and along the spine. It does wrap around a little bit to her right lower chest. She states she is even had a little bit of pain or tingling in her left small ring and middle finger. No weakness. No headache. She states it does hurt to breathe but it also hurts to move and press on the area. She told me that she was not short of breath even though it did hurt to breathe. She evidently told nurse she was short of breath. She is coughed a couple times but has not no sputum production. No wheezing. No hemoptysis. She has not been nauseated or diaphoretic. She is eating and drinking normally. Eating and drinking does not bother this at all. No urinary symptoms. No rashes developed. She cannot think of anything she did to hurt the area. Patient has a full medical problems. She states she takes 13 medicines. She knows she is on metformin and blood pressure meds. But she states she did not think she would need her med list and EMS told her she did not need to bring it. I have reviewed the med list that is on our computer system. No antiovulation other than aspirin. PFSH PFSH Home Medications buspirone 5 mg tablet 5 mg PO BID mental health 06/22/16 [History Last Taken 08/12/19] coenzyme Q10 100 mg capsule (Co Q-10) 100 mg PO BID supplement 06/22/16 [History Last Taken 08/12/19] gabapentin 300 mg capsule 600 mg PO BID nerve pain 06/22/16 [History Last Taken 08/12/19] aspirin 81 mg tablet,delayed release (Adult Low Dose Aspirin) 81 mg PO DAILY health maintenance 10/06/17 [History Last Taken 08/12/19] montelukast 10 mg tablet 10 mg PO QHS allergies 10/06/17 [History Last Taken 08/11/19] rosuvastatin 10 mg tablet 10 mg PO QHS cholesterol 10/06/17 [History Last Taken 08/11/19] tizanidine 4 mg tablet 4 - 8 mg PO BID PRN PRN Pain 10/06/17 [History Last Taken 08/12/19] trazodone 100 mg tablet 100 mg PO QHS sleep 10/06/17 [History Last Taken 08/11/19] Lactobacillus acidophilus (Acidophilus capsule) 1 ea PO DAILY probiotic 04/01/18 [History Last Taken 08/12/19] lisinopril 5 mg tablet 5 mg PO DAILY #30 tabs 04/02/18 [Rx Last Taken 08/12/19] ondansetron 4 mg disintegrating tablet 4 mg PO Q8H PRN PRN Nausea #10 tabs 04/11/18 [Rx Last Taken Unknown] benzonatate 100 mg capsule 100 mg PO TID PRN PRN Cough 08/12/19 [History Last Taken 08/11/19] bupropion HCl 150 mg 24 hr tablet, extended release 150 mg PO DAILY 08/12/19 [History Last Taken 08/11/19] celecoxib 100 mg capsule 100 mg PO BID 08/12/19 [History Last Taken 08/12/19] cholecalciferol (vitamin D3) 25 mcg (1,000 unit) capsule 1,000 unit PO DAILY 08/12/19 [History Last Taken 08/12/19] citalopram 40 mg tablet 40 mg PO QHS 08/12/19 [History Last Taken 08/11/19] furosemide 20 mg tablet 20 mg PO DAILY 08/12/19 [History Last Taken 08/12/19] hydrocodone-acetaminophen 5-325mg 5mg-325mg 1 tab PO Q8H PRN PRN Pain Score 1- 08/1908/12/19 [History Last Taken 08/12/19] metformin 500 mg tablet 500 mg PO TID 08/12/19 [History Last Taken 08/12/19] pantoprazole 40 mg tablet,delayed release 40 mg PO DAILY 08/12/19 [History Last Taken 08/12/19] pseudoephedrine HCl 60 mg tablet 60 mg PO Q6H PRN PRN Congestion 08/12/19 [History Last Taken 08/11/19] ranitidine HCl 150 mg tablet 300 mg PO DAILY 08/12/19 [History Last Taken 08/10/19] mometasone-formoterol HFA 100 mcg-5 mcg/actuation aerosol inhaler 13 gm IH DAILY 09/18/20 [History Last Taken Unknown] hydrocodone-acetaminophen 5-325mg 5mg-325mg 1 tab PO Q6H PRN PRN Pain 3 days #10 TABLETS 01/12/23 [Rx Last Taken Unknown] Allergy/AdvReac Type Severity Reaction Status Date / Time ciprofloxacin [From Cipro] Allergy Rash Verified 09/18/20 11:46 ciprofloxacin HCl Allergy Rash Verified 09/18/20 11:46 [From Cipro] clindamycin Allergy throat Verified 09/18/20 11:46 swelling-see comment section fluoxetine HCl [From Prozac] Allergy Rash Verified 09/18/20 11:46 metronidazole Allergy Anaphylaxis Verified 09/18/20 11:46 Penicillins Allergy Rash Verified 09/18/20 11:46 Sulfa (Sulfonamide Allergy Rash Verified 09/18/20 11:46 Antibiotics) adhesive AdvReac redness Verified 09/18/20 11:46 with bandaids amoxicillin trihydrate AdvReac thrush/yeast Verified 09/18/20 11:46 [From Augmentin] infection potassium clavulanate AdvReac thrush/yeast Verified 09/18/20 11:46 [From Augmentin] infection Social History Smoking Status: Current every day smoker tobacco type: cigarettes ROS ROS ED Constitutional Constitutional ED: Denies chills, fever(s) or subjective Eyes Eyes: Denies change in vision ENT ENT ED: Denies ear pain, rhinorrhea or sore throat Cardiovascular Cardiovascular: Reports as per HPI Respiratory/Chest Respiratory/Chest: Reports cough Gastrointestinal Gastrointestinal: Denies abdominal pain, diarrhea, nausea or vomiting Genitourinary Genitourinary ED: Denies dysuria or hematuria Musculoskeletal Musculoskeletal: Reports back pain; Denies neck pain Integumentary Denies rash Neurologic Neurologic: Denies paresthesias or weakness Endocrine Endocrinology: Denies polydipsia or polyuria Hematologic/Lymphatic Hematologic/Lymphatic: Denies easy bleeding or easy bruising Allergic/Immunologic Allergic/Immunologic ED: Denies urticaria EXAM Physical Exam Narrative Exam Narrative: Patient is awake alert sitting comfortably in bed. She looks nontoxic. HEENT shows moist mucous membranes. No sinus tenderness. Neck shows no pain with palpation or looking left right upper down. Lungs are clear. She can take a good deep breath without any notable pain although she states it does hurt if she takes a very deep breath. Chest wall is tender along the paraspinal area near the scapula and below the scapula. There is a little bit of anterior lateral chest wall tenderness. I do not see any erythema or vesicles though. Her saturations are normal at 98% on room air showing no hypoxia. Heart is regular with a rate about 65. No ectopy seen on the monitor. Abdomen is soft and is not tender. No distention. Extremities show no tenderness asymmetry cords or distended veins. Neurological: she has no weakness or numbness that I can find. I tried tapping on ulnar nerve and it did not reproduce symptoms in her right hand. Const Vital Signs: 01/12/23 06:29 01/12/23 06:43 Temperature 97.9 F Temperature Source Temporal Pulse Rate 61 Respiratory Rate 18 Blood Pressure 149/71 H Blood Pressure Mean 97 Pulse Ox 98 Oxygen Delivery Method Room Air Room Air MDM MDM MDM Narrative Medical decision making narrative: Patient's exam and history is much more consistent with musculoskeletal pain it is extremely reproducible with range of motion of the shoulder arm or twisting. It is tender to palpation. But with her age and medical problems we will do troponin. The symptoms have been there continually for a week so I do not think a delta troponin is needed. She has no known risk factor for PE. She has no travel surgery immobilization personal or family history. She states she is a homebody. I think as long as her troponin and D-dimer and work-up is negative and her x-ray is negative she can likely go home. My independent interpretation of her single view AP chest x-ray shows no pneumothorax. Mediastinum looks normal. I see no infiltrate. Cardiac silhou ette looks overall normal. CBC shows minimal anemia at 11.6. D-dimer is negative and negative for her age. Electrolytes show no marked abnormalities. Glucose is up just a little bit at 188. Troponin is negative despite a week of symptoms. Her symptoms and exam are consistent with musculoskeletal. I have no abnormality on blood work or x-ray. Final reading by radiology on her x-ray is also no acute process and no significant interval change. I will write for some pain meds. I did do online prescribing report access. She has no prescriptions for narcotics or any controlled substance in the last 2 years. Lab Data Attestation: I reviewed the patient's lab results. Labs: Laboratory Results - last 24 hr 01/12/23 01/12/23 01/12/23 06:49 06:49 06:49 WBC 6.0 RBC 3.69 L Hgb 11.6 L Hct 34.4 L MCV 93.2 MCH 31.4 MCHC 33.7 RDW Std Deviation 43.0 RDW Coeff of Mary 12.6 Plt Count 222 MPV 9.5 Immature Gran % (Auto) 0.200 Neut % (Auto) 45.5 L Lymph % (Auto) 45.5 H Bland % (Auto) 6.2 Eos % (Auto) 2.3 Baso % (Auto) 0.3 Absolute Neuts (auto) 2.7 Absolute Lymphs (auto) 2.73 Nucleated RBC % 0 D-Dimer Quant (PE/DVT) 0.46 Sodium 134 L Potassium 3.6 Chloride 100 Carbon Dioxide 27.0 Anion Gap 7 BUN 12 Creatinine 0.86 Estim Creat Clear Calc 51.58 Est GFR (MDRD) Af Amer 86 Est GFR (MDRD) Non-Af 71 BUN/Creatinine Ratio 14.0 Glucose 188 H Calcium 8.8 Troponin I High Sens 7 Radiography Diagnostic Testing: Clinical Impression(s) from Imaging Studies Chest X-Ray 01/12/23 06:45 IMPRESSION: No significant interval change. No acute findings in the chest. Electronically Signed: Duc Almodovar MD at 7:19 EST , EKG Initial EKG: Comments: Independent interpretation of EKG done for chest pain shows a normal sinus rhythm with slightly bradycardic rate at 59. No ectopy. No acute ST elevation or depression. TN interval, QRS duration and QTc are normal. Discharge Plan Triage Chief Complaint: Chest Pain ED Provider: Pranay Armstrong Dx/Rx/DC Orders Clinical Impression: Right-sided chest wall pain, Hyperglycemia Instructions: ED Chest Pain, Uncertain Cause Prescriptions: New hydrocodone-acetaminophen [hydrocodone-acetaminophen] 5-325 mg tablet 1 tab PO Q6H PRN PRN (Reason: Pain) 3 Days Qty: 10 0RF No Action buspirone 5 MG tablet 5 mg PO BID Label Comments: DEPRESSION gabapentin 300 MG capsule 600 mg PO BID coenzyme Q10 [Co Q-10] 100 MG capsule 100 mg PO BID tizanidine 4 MG tablet 4 - 8 mg PO BID PRN PRN (Reason: Pain) aspirin [Adult Low Dose Aspirin] 81 MG tablet,delayed release (DR/EC) 81 mg PO DAILY trazodone 100 MG tablet 100 mg PO QHS montelukast 10 MG tablet 10 mg PO QHS Label Comments: ALLERGIES rosuvastatin 10 MG tablet 10 mg PO QHS Label Comments: CHOLESTEROL Lactobacillus acidophilus [Acidophilus] 1 EACH capsule 1 ea PO DAILY lisinopril 5 MG tablet 5 mg PO DAILY Qty: 30 0RF ondansetron 4 MG tablet 4 mg PO Q8H PRN PRN (Reason: Nausea) Qty: 10 0RF benzonatate 100 MG capsule 100 mg PO TID PRN PRN (Reason: Cough) Label Comments: Take 1 capsule by mouth three times daily as needed. ranitidine HCl 150 MG tablet 300 mg PO DAILY furosemide 20 MG tablet 20 mg PO DAILY Label Comments: Take 1 tablet by mouth once daily. pseudoephedrine HCl 60 MG tablet 60 mg PO Q6H PRN PRN (Reason: Congestion) cholecalciferol (vitamin D3) 1,000 UNIT capsule 1,000 unit PO DAILY bupropion HCl 150 MG tablet extended release 24 hr 150 mg PO DAILY metformin 500 MG tablet 500 mg PO TID Label Comments: TAKE 1 TABLET THREE TIMES DAILY citalopram 40 MG tablet 40 mg PO QHS hydrocodone-acetaminophen 1 EACH tablet 1 tab PO Q8H PRN PRN (Reason: Pain Score 1-10/10) Label Comments: TAKE 1 TABLET EVERY 8 HOURS NEEDED FOR PAIN pantoprazole 40 MG tablet 40 mg PO DAILY celecoxib 100 MG capsule 100 mg PO BID Label Comments: Take 1 capsule by mouth twice daily. mometasone-formoterol 8.8 GM HFA aerosol inhaler 13 gm IH DAILY Primary Care Provider: Bebeto Baires Referrals: Bebeto Baires MD [Primary Care Provider] - 3-5 Days if not improving Disposition Disposition: Home, Self Care
[2023-01-12 07:17] LABS: D-Dimer Quantitative (DVT/PE) 0.46 FEU/ug/m (0.27-0.49)
[2023-01-12 07:26] LABS: Anion Gap 7 (5-15); BUN 12 mg/dL (7-18); Calcium,Total 8.8 mg/dL (8.5-10.1); Chloride 100 mmol/L (98-107); Creatinine, Serum 0.86 mg/dL (0.55-1.02); EST Glomerular Filtration Rate 71 mL/min (>60); Est Glom Filt Rate - Afr Amer 86 mL/min (>60); Estimated Creatinine Clearance 51.58 ml/min; Glucose 188 mg/dL (74-106); Potassium 3.6 mmol/L (3.5-5.1); Sodium Level 134 mmol/L (136-145); Troponin-I HS 7 pg/mL (3.0-54.0)
[2023-01-12 07:39] VITALS: BP 115/78; PULSE 78; RESP 16; TEMP 36.1; O2SAT 99
== END 2023-01-12 07:56 | disposition home or self-care (01) ==
LOC: ED 07:51
PROVIDERS: Emergency Provider Emergency Medicine; PCP Family Medicine; Visit Provider Emergency Medicine
DX: R07.89 Other chest pain (principal); R73.9 Hyperglycemia, unspecified; F17.210 Nicotine dependence, cigarettes, uncomplicated
CPT/HCPCS: 71045; 80048; 84484; 85025; 85379; 93005; 96374; 96375; 99285; A4216; J2405

== ENCOUNTER 2023-02-05 18:15 | Emergency (ER) | payer MEDICARE, MEDICAID, SELFPAY ==
[2023-02-05 18:16] VITALS: BP 133/67; PULSE 92; RESP 18; TEMP 35.7; O2SAT 100; BMI 27.1
--- NOTE | 2023-02-05 18:22 | EX.ED.UPPERE ---
HPI History of Present Illness Chief Complaint: Laceration Detail of Chief Complaint: Laceration dorsal surface right long finger Informant: patient Occured/Mechanism Mechanism/Context: Yes other see comment below Comment: Patient sustained a laceration distal to the DIP joint dorsal surface right long finger when she was cleaning dishes. She states when she was putting her hand down she cut herself on a knife. Onset/Context/Timing Onset: Hours Context: Sudden Onset Timing: Continuous Quality of Pain: Aching Location: Distilled DIP joint right long finger Current Severity: Mild Maximum Severity: Severe Worsened by: Flexion extension Relieved by: Nothing Associated Symptoms Associated Symptoms: Negative for Parasthesia, Weakness or Loss of Funtion Narrative Narrative: Patient is a 67-year-old [id number] woman who presents with laceration dorsal surface of the right long finger distal of the DIP joint. This occurred prior to arrival. Tetanus is unknown. She denies paresthesia, anesthesia or motor aches. She denies loss of function. She has not anti-Dawkins she is on aspirin. She does have history of diabetes. Tetanus Immunization: Unknown Prior similar symptoms: No Recent Illness/Hospitalization: No PFSH PFSH Home Medications buspirone 5 mg tablet 5 mg PO BID mental health 06/22/16 [History Last Taken 08/12/19] coenzyme Q10 100 mg capsule (Co Q-10) 100 mg PO BID supplement 06/22/16 [History Last Taken 08/12/19] gabapentin 300 mg capsule 600 mg PO BID nerve pain 06/22/16 [History Last Taken 08/12/19] aspirin 81 mg tablet,delayed release (Adult Low Dose Aspirin) 81 mg PO DAILY health maintenance 10/06/17 [History Last Taken 08/12/19] montelukast 10 mg tablet 10 mg PO QHS allergies 10/06/17 [History Last Taken 08/11/19] rosuvastatin 10 mg tablet 10 mg PO QHS cholesterol 10/06/17 [History Last Taken 08/11/19] tizanidine 4 mg tablet 4 - 8 mg PO BID PRN PRN Pain 10/06/17 [History Last Taken 08/12/19] trazodone 100 mg tablet 100 mg PO QHS sleep 10/06/17 [History Last Taken 08/11/19] Lactobacillus acidophilus (Acidophilus capsule) 1 ea PO DAILY probiotic 04/01/18 [History Last Taken 08/12/19] lisinopril 5 mg tablet 5 mg PO DAILY #30 tabs 04/02/18 [Rx Last Taken 08/12/19] ondansetron 4 mg disintegrating tablet 4 mg PO Q8H PRN PRN Nausea #10 tabs 04/11/18 [Rx Last Taken Unknown] benzonatate 100 mg capsule 100 mg PO TID PRN PRN Cough 08/12/19 [History Last Taken 08/11/19] bupropion HCl 150 mg 24 hr tablet, extended release 150 mg PO DAILY 08/12/19 [History Last Taken 08/11/19] celecoxib 100 mg capsule 100 mg PO BID 08/12/19 [History Last Taken 08/12/19] cholecalciferol (vitamin D3) 25 mcg (1,000 unit) capsule 1,000 unit PO DAILY 08/12/19 [History Last Taken 08/12/19] citalopram 40 mg tablet 40 mg PO QHS 08/12/19 [History Last Taken 08/11/19] furosemide 20 mg tablet 20 mg PO DAILY 08/12/19 [History Last Taken 08/12/19] hydrocodone-acetaminophen 5-325mg 5mg-325mg 1 tab PO Q8H PRN PRN Pain Score 1-10/10 08/12/19 [History Last Taken 08/12/19] metformin 500 mg tablet 500 mg PO TID 08/12/19 [History Last Taken 08/12/19] pantoprazole 40 mg tablet,delayed release 40 mg PO DAILY 08/12/19 [History Last Taken 08/12/19] pseudoephedrine HCl 60 mg tablet 60 mg PO Q6H PRN PRN Congestion 08/12/19 [History Last Taken 08/11/19] ranitidine HCl 150 mg tablet 300 mg PO DAILY 08/12/19 [History Last Taken 08/10/19] mometasone-formoterol HFA 100 mcg-5 mcg/actuation aerosol inhaler 13 gm IH DAILY 09/18/20 [History Last Taken Unknown] hydrocodone-acetaminophen 5-325mg 5mg-325mg 1 tab PO Q6H PRN PRN Pain 3 days #10 TABLETS 01/12/23 [Rx Last Taken Unknown] Allergy/AdvReac Type Severity Reaction Status Date / Time ciprofloxacin [From Cipro] Allergy Rash Verified 02/05/23 18:17 ciprofloxacin HCl Allergy Rash Verified 02/05/23 18:17 [From Cipro] clindamycin Allergy throat Verified 02/05/23 18:17 swelling-see comment section fluoxetine HCl [From Prozac] Allergy Rash Verified 02/05/23 18:17 metronidazole Allergy Anaphylaxis Verified 02/05/23 18:17 Penicillins Allergy Rash Verified 02/05/23 18:17 Sulfa (Sulfonamide Allergy Rash Verified 02/05/23 18:17 Antibiotics) adhesive AdvReac redness Verified 02/05/23 18:17 with bandaids amoxicillin trihydrate AdvReac thrush/yeast Verified 02/05/23 18:17 [From Augmentin] infection potassium clavulanate AdvReac thrush/yeast Verified 02/05/23 18:17 [From Augmentin] infection Social History (Updated 02/05/23 @ 18:[address] Satya Cotton MD) household members: none Smoking Status: Current every day smoker tobacco type: cigarettes ROS ROS ED Integumentary Reports other Details: Laceration right long finger Neurologic Neurologic: Reports other Details: Detailed in the HPI narrative ; Denies paresthesias Hematologic/Lymphatic Hematologic/Lymphatic: Denies easy bleeding or easy bruising EXAM Physical Exam Const Vital Signs: 02/05/23 18:16 Temperature 96.2 F L Temperature Source Temporal Pulse Rate 92 Respiratory Rate 18 Blood Pressure 133/67 H Blood Pressure Mean 89 Pulse Ox 100 Oxygen Delivery Method Room Air Positive well nourished and well developed General Appearance ED: well developed and NAD HEENT normocephalic and atraumatic Eyes PERRL and EOMs intact bilaterally Resp normal respiratory effort Cardio regular rate and regular rhythm Extremity full ROM; Negative for normal to inspection Extremity Narrative: 1.5 cm laceration dorsal side right long finger distal to the DIP joint. The extensor commonest tendon is functionally intact. The flexor digitorum superficialis and flexor digitorum profundus are intact. Capillary refill normal. Two-point discrimination normal. There is no subungual hematoma noted. There is no evidence Neuro oriented x3, CN's II-XII intact bilaterally and no sensory deficits noted Psych mental status grossly normal Skin Skin Narrative: Laceration previously mentioned under the extremity portion of the medical record. MDM MDM MDM Narrative Medical decision making narrative: Patient has a laceration that will require repair. Will anesthetize the digit. After the digit has been anesthetized will perform more complete exam to determine if there is injury to the extensor commonest tendon. And to evaluate if there is evidence of a traumatic arthrotomy. Procedures Other Procedures Procedure(s): Suture note: Digit was anesthetized by digital block. 1% lidocaine was used. 2.5 cc was infiltrated. Once patient states she had no sensation digit was placed through range of motion. There is no evidence of involvement of the joint or tendon. Wound was irrigated with 100 cc of normal saline. Using 5-0 Ethilon 3 simple interrupted sutures was placed. Patient tolerated the procedure. Discharge Plan Triage Chief Complaint: Laceration ED Provider: Satya Cotton Dx/Rx/DC Orders Clinical Impression: Laceration of finger of right hand, Tobacco abuse, History of diabetes mellitus Instructions: ED Laceration Hand with ... Prescriptions: No Action buspirone 5 MG tablet 5 mg PO BID Label Comments: DEPRESSION gabapentin 300 MG capsule 600 mg PO BID coenzyme Q10 [Co Q-10] 100 MG capsule 100 mg PO BID tizanidine 4 MG tablet 4 - 8 mg PO BID PRN PRN (Reason: Pain) aspirin [Adult Low Dose Aspirin] 81 MG tablet,delayed release (DR/EC) 81 mg PO DAILY trazodone 100 MG tablet 100 mg PO QHS montelukast 10 MG tablet 10 mg PO QHS Label Comments: ALLERGIES rosuvastatin 10 MG tablet 10 mg PO QHS Label Comments: CHOLESTEROL Lactobacillus acidophilus [Acidophilus] 1 EACH capsule 1 ea PO DAILY lisinopril 5 MG tablet 5 mg PO DAILY Qty: 30 0RF ondansetron 4 MG tablet 4 mg PO Q8H PRN PRN (Reason: Nausea) Qty: 10 0RF benzonatate 100 MG capsule 100 mg PO TID PRN PRN (Reason: Cough) Label Comments: Take 1 capsule by mouth three times daily as needed. ranitidine HCl 150 MG tablet 300 mg PO DAILY furosemide 20 MG tablet 20 mg PO DAILY Label Comments: Take 1 tablet by mouth once daily. pseudoephedrine HCl 60 MG tablet 60 mg PO Q6H PRN PRN (Reason: Congestion) cholecalciferol (vitamin D3) 1,000 UNIT capsule 1,000 unit PO DAILY bupropion HCl 150 MG tablet extended release 24 hr 150 mg PO DAILY metformin 500 MG tablet 500 mg PO TID Label Comments: TAKE 1 TABLET THREE TIMES DAILY citalopram 40 MG tablet 40 mg PO QHS hydrocodone-acetaminophen 1 EACH tablet 1 tab PO Q8H PRN PRN (Reason: Pain Score 1-10/10) Label Comments: TAKE 1 TABLET EVERY 8 HOURS NEEDED FOR PAIN pantoprazole 40 MG tablet 40 mg PO DAILY celecoxib 100 MG capsule 100 mg PO BID Label Comments: Take 1 capsule by mouth twice daily. mometasone-formoterol 8.8 GM HFA aerosol inhaler 13 gm IH DAILY hydrocodone-acetaminophen [hydrocodone-acetaminophen] 5-325 mg tablet 1 tab PO Q6H PRN PRN (Reason: Pain) 3 Days Qty: 10 0RF Primary Care Provider: Bebeto Baires Referrals: Bebeto Baires MD [Primary Care Provider] - 10-14 Days suture removal Activity Restrictions/Additional Instructions: Tube1. Keep digit clean and dry as possible for the next 48 to 72 hours. Apply bacitracin ointment 3 times a day for the next 5 to 7 days. Disposition Disposition: Home, Self Care
[2023-02-05] MEDS: Diphth,Pertuss(Acell),Tet Vac 0.5 ML Vial IM (19:22)
[2023-02-05] MEDS: Lidocaine 1% (20 ml mdv) 20 ML Vial INFILT (19:24)
== END 2023-02-05 19:45 | disposition home or self-care (01) ==
PROVIDERS: Emergency Provider Emergency Medicine; PCP Family Medicine; Visit Provider Emergency Medicine
DX: S61.212A Laceration without foreign body of right middle finger without damage to nail, initial encounter (principal); F17.210 Nicotine dependence, cigarettes, uncomplicated; Z23 Encounter for immunization; W26.0XXA Contact with knife, initial encounter
CPT/HCPCS: 12001; 90471; 90715; 99283

== ENCOUNTER → 2023-12-31 | Outpatient (CLI) | payer MEDICARE, MEDICAID, SELFPAY ==
[2023-12-31 10:35] LABS: Bacteria 0 SEEN /hpf (None Seen); Mucous, Urine 0 SEEN /hpf (<or=2+); Red Blood Cells-Urine 0 SEEN /hpf (0-5); Squamous Epithelial Cells - UA 0 SEEN /hpf (5-10); White Blood Cells 0 SEEN /hpf (0-5)
[2023-12-31 12:35] LABS: Absolute Lymphocyte Count 2.67 X10^3/uL (0.83-4.51); Absolute Neutrophil Count 6.5 X10^3/uL (2.0-7.7); Basophil# 0.04 X10^3/uL; Basophil% 0.4 % (0-1); Eosinophil# 0.06 X10^3/uL; Eosinophils% 0.6 % (0-5); Hematocrit 35.5 % (37-47); Hemoglobin 11.7 g/dL (12.0-15.0); Lymphocyte # 2.67 X10^3/ul (0.83-4.51); Lymphocyte % 27.3 % (19-41); Mean Corpuscular Hgb 29.5 pg (27.0-32.0); Mean Corpuscular Volume 89.6 fL (81-99); Mean Platelet Vol. 10.6 fl (6.2-12.0); Monocyte% 5.1 % (0-10); NRBC Flagged by Analyzer 0 % (0-5); Neutrophil # 6.49 X10^3/uL (2.7-7.7); Neutrophil % 66.3 % (47-70); Platelet Count 218 K/mm3 (150-450); RBC Distribution Width CV 13.5 % (11.6-14.6); RBC Distribution Width SD 44.5 fl (35.1-43.9); Red Blood Count 3.96 M/mm3 (4.2-5.4); White Blood Count 9.8 K/mm3 (4.4-11.0)
[2023-12-31 12:38] LABS: Color, Urine Yellow (Yellow); Glucose, Dipstick Normal (Normal); Ketone-Dipstick Negative (Negative); Leukocyte Esterase-Dipstick Negative /ul (Negative); Nitrite-Dipstick Negative (Negative); Occult Blood-Urine Negative /ul (Negative); Protein-Dipstick Negative (Negative); Urine Bilirubin Dipstick Negative (Negative); Urine Clarity Clear (Clear); Urine Urobilinogen Normal (Normal)
[2023-12-31 12:45] LABS: Calcium Oxalate Crystals Ur RARE /hpf (<or=2+)
[2023-12-31 13:01] LABS: Vitamin D,25 Hydroxy 35.2 ng/mL
[2023-12-31 13:02] LABS: Hemoglobin A1c 6.9 % (3.8-5.6)
[2023-12-31 13:03] LABS: Microalbumin,Random Urine 14.5 mg/L (NO RANGE EST.); Microalbumin:Creatinine Ratio 54.3 mg/g CRE (<30 mg/g CRE)
[2023-12-31 13:27] LABS: AST(SGOT) 18 U/L (15-37); Alanine Aminotransfer ALT/SGPT 26 U/L (13-56); Albumin, Serum 4.3 g/dL (3.2-5.0); Alkaline Phosphatase 31 U/L (45-117); Anion Gap 8 (5-15); BUN 13 mg/dL (7-18); BUN/Creat Ratio 14.5 RATIO (10-20); CPK Total, Creatine Kinase 153 U/L (26-192); Calcium,Total 9.5 mg/dL (8.5-10.1); Chloride 104 mmol/L (98-107); Cholesterol 114 mg/dL (200); EST Glomerular Filtration Rate 67 mL/min (>60); Est Glom Filt Rate - Afr Amer 81 mL/min (>60); Ferritin 9 ng/mL (8-252); Globulin 4.3 g/dL (2.2-4.2); Glucose 98 mg/dL (74-106); High Density Lipoprotein 58 mg/dL; Magnesium 1.8 mg/dL (1.6-2.6); Potassium 3.7 mmol/L (3.5-5.1); Protein, Total 8.6 g/dL (6.4-8.2); Sodium Level 139 mmol/L (136-145); Thyroid Stim Hormone (TSH) 1.37 uIU/mL (0.358-3.74); Triglycerides 135 mg/dL; Very Low Density Lipoprotein 27 mg/dL (5-40)
[2024-01-02 04:07] LABS: Thyroid Peroxidase AB 18 IU/mL (0-34)
== END | disposition home or self-care (01) ==
PROVIDERS: PCP Family Medicine; Referring Provider Family Medicine; Visit Provider Family Medicine
DX: E55.9 Vitamin D deficiency, unspecified (principal); E11.8 Type 2 diabetes mellitus with unspecified complications; E04.1 Nontoxic single thyroid nodule; R25.2 Cramp and spasm
CPT/HCPCS: 36415; 80053; 80061; 81001; 82043; 82306; 82550; 82570; 82728; 83036; 83735; 84439; 84443; 85025; 86376

== ENCOUNTER → 2024-01-08 | Outpatient (CLI) | payer MEDICARE, MEDICAID, SELFPAY ==
--- NOTE | 2024-01-08 11:48 | US_ITS ---
EXAM: US SOFT TISSUES HEAD AND NECK, THYROID CLINICAL INDICATION: nodule TECHNIQUE: Greyscale and color doppler imaging was performed of the thyroid gland. COMPARISON: No relevant prior studies available. FINDINGS: LEFT THYROID LOBE: In the lower pole of the left lobe of the thyroid there is a cystic mass measuring 0.5 x 0.4 x 0.3 cm. Homogeneous echotexture with normal vascularity. The left lobe of the thyroid lobe measures 3.3 x 1.5 x 1.6 cm. RIGHT THYROID LOBE: In the upper pole of the right lobe of the thyroid there is a complex 1.6 x 1.3 x 1.0 solid/cystic mass that is hypoechoic, wider than tall, smoothly marginated without echogenic foci. The right lobe of the thyroid lobe measures 3.8 x 1.6 x 2.2 cm. ISTHMUS: Unremarkable. No thyroid nodules are present. The isthmus measures 0.4 cm in thickness. US/Thyroid IMPRESSION: 1. In the upper pole of the right lobe of the thyroid there is a complex 1.6 x 1.3 x 1.0 solid/cystic mass that is hypoechoic, wider than tall, smoothly marginated without echogenic foci. TI-RADS points: 3. TI-RADS category: TR3. This nodule is mildly suspicious. Recommend follow-up thyroid ultrasounds at 1, 3 and 5 years. 2. TI-RADS points: 0. TI-RADS category: TR1. This nodule is benign and no FNA or follow-up is necessary. Electronically Signed: Dao Jon MD at 23:53 EST ,
--- OUTSIDE RECORDS SUMMARY | 2024-01-08 18:59 | XMS RPT_ITS | CCD ---
Author Name Unknown Address [address] [place] [address] Organization [facility] Care Team Providers Care Splitter Head Name Role Phone TISH HASSAN Unavailable Unavailable TISH HASSAN Unavailable Unavailable Bebeto Petersen MD Primary Care Provider Bebeto Petersen MD Primary Care Provider Bebeto Petersen MD Primary Care Provider Bebeto Petersen MD Primary Care Provider MARBELLALOGSAHRA CUNNINGHAM Referring Unavailable BEBETO PETERSEN Primary Care Unavailable Carolina Mirza PA-C Primary Care Provider Barbie Ruiz MD Unavailable BEBETO PETERSEN Primary Care Unavailable BEBETO PETERSEN Referring Unavailable Carolina MIRZA Primary Care Unavailable Carolina MIRZA Referring Unavailable HEIKE MELGOZA Attending Unavailable Carolina MIRZA Primary Care Unavailable PODLOGSAHRA CUNNINGHAM Referring Unavailable Carolina MIRZA Primary Care Unavailable PODLOGSAHRA CUNNINGHAM Referring Unavailable Carolina MIRZA Referring Unavailable BEBETO PETERSEN Primary Care Unavailable Carolina MIRZA Referring Unavailable BEBETO PETERSEN Primary Care Unavailable Carolina MIRZA Attending Unavailable BEBETO PETERSEN Primary Care Unavailable Carolina MIRZA Attending Unavailable BEBETO PETERSEN Primary Care Unavailable Carolina MIRZA Primary Care Unavailable Carolina MIRZA Referring Unavailable BEBETO PETERSEN Primary Care Unavailable BEBETO PETERSEN Attending Unavailable Carolina MIRZA Referring Unavailable BEBETO PETERSEN Primary Care Unavailable Carolina MIRZA Referring Unavailable BEBETO PETERSEN Primary Care Unavailable Carolina MIRZA Referring Unavailable NICOLA, BEBETO Patten Primary Care Unavailable Carolina MIRZA Referring Unavailable NICOLA, BEBETO Patten Primary Care Unavailable Carolina MIRZA Referring Unavailable KELY MANZO Attending Unavailable NICOLA, BEBETO Earline Primary Care Unavailable HECTOR CHANEY Attending Unavailable NICOLA, BEBETO Earline Primary Care Unavailable Carolina MIRZA Referring Unavailable CARLOS DENNEY Attending Unavailable NICOLA, BEBETO J Primary Care Unavailable Carolina MIRZA Attending Unavailable NICOLA, BEBETO J Primary Care Unavailable Carolina MIRZA Attending Unavailable NICOLA, BEBETO J Primary Care Unavailable Carolina MIRZA Referring Unavailable NICOLA, BEBETO Patten Primary Care Unavailable NICOLA, BEBETO J Primary Care Unavailable NICOLA, BEBETO J Referring Unavailable NICOLA, BEBETO Patten Primary Care Unavailable NICOLA, BEBETO Patten Attending Unavailable NICOLA, BEBETO Earline Primary Care Unavailable PODLOGAR, SAHRA Attending Unavailable NICOLA, BEBETO J Primary Care Unavailable PODLOGARSAHRA Referring Unavailable NICOLA, BEBETO Patten Primary Care Unavailable PODLOGAR, SAHRA Referring Unavailable Carolina MIRZA Referring Unavailable NICOLA, BEBETO Earline Primary Care Unavailable NICOLA, BEBETO Earline Primary Care Unavailable NICOLA, BEBETO aErline Referring Unavailable Allergies Allergy Classification Reported Allergen(s) Allergy Type Date of Onset Reaction(s) Facility (20 sources) Adhesive agent; Translations: [ADHESIVE] Propensity to adverse reactions to drug (disorder) 3 Other: See Comments [facility] Repository (20 sources) ciprofloxacin; Translations: [CIPROFLOXACIN] Drug Allergy 4 Rash [facility] Repository (20 sources) clindamycin; Translations: [CLINDAMYCIN] Drug Allergy 6 Swelling [facility] Repository (1 source) doxycycline; Translations: [DOXYCYCLINE] Drug Allergy 4 AOF [facility] Repository (20 sources) FLUoxetine; Translations: [FLUOXETINE HCL] Drug Allergy 3 Rash [facility] Repository (20 sources) metroNIDAZOLE; Translations: [METRONIDAZOLE] Drug Allergy 4 Anaphylaxis [facility] Repository (20 sources) Penicillins; Translations: [PENICILLINS] Propensity to adverse reactions to drug (disorder) 2 Intolerance [facility] Repository (20 sources) AMOXICILLIN-POT CLAVULANATE; Translations: [AMOXICILLIN-PO T CLAVULANATE] Propensity to adverse reactions to drug (disorder) 4 Other: See Comments [facility] Repository (20 sources) SULFA DYNE; Translations: [SULFA DYNE] Propensity to adverse reactions to drug (disorder) 2 Rash [facility] Repository Medications Current Medications Medication Drug Class(es) Dates Sig (Normalized) Sig (Original) [id number] 200 actuat albuterol 0.09 mg/actuat metered dose inhaler (20 sources) beta2-Adrenergic Agonist Start: 02-28-2022 End: 12-28-2023 take 2 puff(s) by inhalation every four hours as needed for wheezing albuterol HFA (PROVENTIL HFA, VENTOLIN HFA) 90 mcg/actuation inhaler Indications: Chronic obstructive pulmonary disease, unspecified COPD type (HCC) Inhale 2 Puffs as instructed every 4 hours as needed for wheezing/shortness of breath. 1 Each 2 09/29/2023 12/28/2023 Active Completed/Discontinued Medications Medication Drug Class(es) Dates Sig (Normalized) Sig (Original) aminolevulinate 200 mg/ml topical solution (20 sources) Start: 02-24-2019 End: 04-10-2023 Aminolevulinic Acid HCl 20 % soln 1 Each aspirin 81 mg delayed release oral tablet (20 sources) Platelet Aggregation Inhibitor, Nonsteroidal Anti-inflammatory Drug take 1 tablet by mouth once daily aspirin, enteric coated (ASPIRIN, ENTERIC COATED) 81 mg EC tablet Take 81 mg by mouth once daily. 0 Active Problems Active Problems Problem Classification Problem Date Documented Da te Episodic/Chronic Asthma (3 sources) Asthma; Translations: [Unspecified asthma, uncomplicated] Chronic Cardiac dysrhythmias (3 sources) Supraventricular tachycardia; Translations: [Supraventricular tachycardia] Onset: 3 Chronic Cataract (2 sources) Bilateral senile combined form cataracts of eyes; Translations: [Combined forms of age-related cataract, bilateral] Onset: 3 Chronic Chronic obstructive pulmonary disease and bronchiectasis (20 sources) Chronic obstructive lung disease; Translations: [Chronic obstructive pulmonary disease, unspecified] Onset: 7 03-28-2017 Chronic Diabetes mellitus with complications (20 sources) Neuropathy due to type 2 diabetes mellitus; Translations: [Type 2 diabetes mellitus with diabetic neuropathy, unspecified] Onset: 5 03-26-2021 Chronic Diabetes mellitus without complication (7 sources) Diabetes mellitus type 2 without retinopathy; Translations: [Type 2 diabetes mellitus without complications] Onset: 3 Chronic Diseases of white blood cells (2 sources) Lymphocytosis; Translations: [Lymphocytosis (symptomatic)] Onset: 3 Chronic Disorders of lipid metabolism (20 sources) Mixed hyperlipidemia; Translations: [Mixed hyperlipidemia] Onset: 7 03-10-2017 Chronic Esophageal disorders (20 sources) Gastroesophageal reflux disease; Translations: [Gastro-esophageal reflux disease without esophagitis] Onset: 5 05-15-2015 Chronic Essential hypertension (20 sources) Essential hypertension; Translations: [Essential (primary) hypertension] Onset: 2 Chronic Fluid and electrolyte disorders (2 sources) Hyperkalemia; Translations: [Hyperkalemia] Episodic Gastritis and duodenitis (6 sources) Chronic antral gastritis; Translations: [Unspecified chronic gastritis without bleeding] Onset: 3 Chronic Immunizations and screening for infectious disease (2 sources) Needs influenza immunization; Translations: [Encounter for immunization] Episodic Mood disorders (20 sources) Depressive disorder; Translations: [Depression] Onset: 5 05-15-2015 Chronic Nausea and vomiting (1 source) Nausea; Translations: [Nausea] Episodic Nutritional deficiencies (3 sources) Vitamin D deficiency; Translations: [Vitamin D deficiency, unspecified] Chronic Open wounds of extremities (1 source) Laceration of right middle finger; Translations: [Laceration without foreign body of right middle finger without damage to nail, subsequent encounter] Episodic Other connective tissue disease (1 source) Calcific tendinitis of right shoulder; Translations: [Calcific tendinitis of right shoulder] Episodic Other eye disorders (1 source) Asteroid hyalosis of left eye; Translations: [Crystalline deposits in vitreous body, left eye] Chronic Other eye disorders (1 source) Crystalline deposits in vitreous body, left eye; Translations: [Asteroid hyalosis of left eye] Onset: 3 Chronic Other eye disorders (1 source) Lesion of right lower eyelid; Translations: [Unspecified disorder of eyelid] Episodic Other gastrointestinal disorders (1 source) Diarrhea; Translations: [Diarrhea, unspecified] Episodic Other hematologic conditions (1 source) Hyperproteinemia; Translations: [Abnormality of plasma protein, unspecified] Episodic Other liver diseases (4 sources) High lipase level in serum; Translations: [Abnormal levels of other serum enzymes] Episodic Other lower respiratory disease (1 source) Rib pain; Translations: [Pleurodynia] 09-10-2023 Episodic Other nervous system disorders (20 sources) Bilateral carpal tunnel syndrome; Translations: [Carpal tunnel syndrome, bilateral upper limbs] Onset: 8 08-27-2018 Chronic Other nervous system disorders (1 source) Other chronic pain; Translations: [Chronic right shoulder pain] Onset: 3 Chronic Other nervous system disorders (1 source) Carpal tunnel syndrome, bilateral upper limbs; Translations: [Carpal tunnel 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] Onset: 8 Chronic Other non-traumatic joint disorders (4 sources) Shoulder pain; Translations: [Pain in left shoulder] Episodic Other non-traumatic joint disorders (1 source) Disorder of shoulder; Translations: [Other specified joint disorders, unspecified shoulder] Episodic Other non-traumatic joint disorders (1 source) Pain of right sternoclavicular joint; Translations: [Pain in right shoulder] Episodic Other nutritional; endocrine; and metabolic disorders (2 sources) Hypercalcemia; Translations: [Hypercalcemia] Chronic Other nutritional; endocrine; and metabolic disorders (1 source) Hypercalcemia; Translations: [Hypercalcemia] Onset: 3 Chronic Other screening for suspected conditions (not mental disorders or infectious disease) (18 sources) Patient encounter status; Translations: [Encounter for other screening for malignant neoplasm of breast] Onset: 3 Episodic Other skin disorders (1 source) Vesicular hand eczema; Translations: [Dyshidrosis [pompholyx]] 09-29-2023 Episodic Peripheral and visceral atherosclerosis (20 sources) Peripheral vascular disease, unspecified; Translations: [Peripheral vascular disease, unspecified] Onset: 7 03-10-2017 Chronic Pulmonary heart disease (20 sources) Pulmonary hypertension; Translations: [Pulmonary hypertension, unspecified] Onset: 8 12-08-2017 Chronic Residual codes; unclassified (1 source) At risk of polypharmacy; Translations: [Other specified personal risk factors, not elsewhere classified] 09-29-2023 Episodic Retinal detachments; defects; vascular occlusion; and retinopathy (2 sources) Hypertensive retinopathy; Translations: [Hypertensive retinopathy, bilateral] Onset: Chronic Spondylosis; intervertebral disc disorders; other back problems (20 sources) Degeneration of lumbosacral intervertebral disc; Translations: [Other intervertebral disc degeneration, lumbosacral region] Onset: 3 08-19-2013 Chronic Substance-related disorders (1 source) Cigarette smoker ; Translations: [Nicotine dependence, cigarettes, uncomplicated] Chronic Syncope (6 sources) Syncope and collapse; Translations: [Syncope and collapse] Onset: 3 09-10-2023 Episodic Past or Other Problems Problem Classification Problem Date Documented Da te Episodic/Chronic Abdominal pain (3 sources) Epigastric pain; Translations: [Epigastric pain] Onset: 01-24-2023 Episodic Allergic reactions (20 sources) Solar degeneration; Translations: [Other skin changes due to chronic exposure to nonionizing radiation] Onset: 12-09-2012 12-09-2012 Episodic Cardiac dysrhythmias (2 sources) Palpitations; Translations: [Palpitations] Onset: 05-01-2023 Episodic Nonspecific chest pain (3 sources) Chest pain; Translations: [Chest pain, unspecified] Onset: 07-28-2023 Episodic Other aftercare (1 source) Other manager intermediate (current) drug therapy; Translations: [Current use of proton pump inhibitor] Onset: 05-01-2023 Episodic Other and unspecified benign neoplasm (20 sources) Dysplastic nevus of trunk; Translations: [Melanocytic nevi of trunk] Onset: 12-09-2012 12-09-2012 Episodic Other and unspecified benign neoplasm (20 sources) Melanocytic nevus of face; Translations: [Melanocytic nevi of unspecified part of face] Onset: 12-09-2012 12-09-2012 Episodic Other and unspecified benign neoplasm (20 sources) Dermatofibroma; Translations: [Other benign neoplasm of skin of right lower limb, including hip] Onset: 12-09-2012 12-09-2012 Episodic Other bone disease and musculoskeletal deformities (20 sources) Postmenopausal osteopenia; Translations: [Other specified disorders of bone density and structure, unspecified site] Onset: 08-17-2022 08-17-2022 Episodic Other bone disease and musculoskeletal deformities (1 source) Other specified disorders of bone density and structure, unspecified site; Translations: [Osteopenia after menopause] Onset: 08-17-2022 Episodic Other connective tissue disease (1 source) Calcific tendinitis of right shoulder; Translations: [Calcific tendonitis of right shoulder] Onset: 04-28-2023 Episodic Other diseases of kidney and ureters (20 sources) Cyst of kidney; Translations: [Cyst of kidney, acquired] Onset: 04-02-2021 04-02-2021 Episodic Other diseases of kidney and ureters (1 source) Cyst of kidney, acquired; Translations: [Renal cyst] Onset: 06-12-2022 Episodic Other eye disorders (1 source) Unspecified disorder of eyelid; Translations: [Lesion of right lower eyelid] Onset: 04-02-2023 Episodic Other eye disorders (1 source) Dermatochalasis of right upper eyelid; Translations: [Dermatochalasis of right upper eyelid] Onset: 04-02-2023 Episodic Other eye disorders (1 source) Dermatochalasis of left upper eyelid; Translations: [Dermatochalasis of left upper eyelid] Onset: 04-02-2023 Episodic Other gastrointestinal disorders (2 sources) Dysphagia, unspecified; Translations: [Dysphagia, unspecified] Onset: 11-25-2017 Episodic Other gastrointestinal disorders (20 sources) Dysphagia; Translations: [Dysphagia, unspecified] Onset: 11-25-2017 11-25-2017 Episodic Other hematologic conditions (1 source) Abnormality of plasma protein, unspecified; Translations: [Elevated blood protein] Onset: 02-17-2023 Episodic Other liver diseases (1 source) Abnormal levels of other serum enzymes; Translations: [Elevated lipase] Onset: 02-17-2023 Episodic Other lower respiratory disease (20 sources) Multiple nodules of lung; Translations: [Other nonspecific abnormal finding of lung field] Onset: 05-15-2015 11-05-2021 Episodic Other lower respiratory disease (1 source) Pleurodynia; Translations: [Rib pain] Onset: 09-10-2023 Episodic Other lower respiratory disease (1 source) Other nonspecific abnormal finding of lung field; Translations: [Lung nodules] Onset: 03-27-2023 Episodic Other non-epithelial cancer of skin (20 sources) 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; Translations: [Squamous cell carcinoma of skin of nose] Onset: 06-24-2016 06-24-2016 Episodic Other non-traumatic joint disorders (1 source) Pain in right shoulder; Translations: [Chronic right shoulder pain] Onset: 03-27-2023 Episodic Other skin disorders (20 sources) Actinic keratosis; Translations: [Actinic keratosis] Onset: 12-09-2012 12-09-2012 Episodic Other skin disorders (20 sources) Seborrheic keratosis; Translations: [Other seborrheic keratosis] Onset: 12-09-2012 12-09-2012 Episodic Other skin disorders (20 sources) Solar lentigo; Translations: [Other melanin hyperpigmentation] Onset: 12-09-2012 06-22-2013 Episodic Residual codes; unclassified (20 sources) Tobacco user; Translations: [Tobacco use] Onset: 03-28-2017 03-28-2017 Episodic Residual codes; unclassified (20 sources) Family history of polyp of colon; Translations: [Family history of colonic polyps] Onset: 11-25-2017 11-25-2017 Episodic Residual codes; unclassified (1 source) Family history of malignant neoplasm of digestive organs; Translations: [Family history of colon cancer] Onset: 03-28-2023 Episodic Residual codes; unclassified (1 source) Tobacco use; Translations: [Tobacco abuse] Onset: 03-28-2017 Episodic Residual codes; unclassified (1 source) Asymptomatic menopausal state; Translations: [Osteopenia after menopause] Onset: 08-17-2022 Episodic Spondylosis; intervertebral disc disorders; other back problems (20 sources) Neck pain; Translations: [Cervicalgia] Onset: 11-17-2015 11-17-2015 Episodic Unclassified (1 source) Family history of colonic polyps; Translations: [Family history of colonic polyps] Onset: 11-25-2017 Episodic Results Test Name Value Interpretation Reference Range Facil ity Vital Signs Date Time Vital Sign Value Performing Clinician Mehul valdivia 10-14-2023 09:43-0500 Body weight 67.13 kg Heike Melgoza APRN.GENERAL ASSISTANT Work Phone: [facility] 10-14-2023 09:43-0500 Diastolic blood pressure 70 mm[Hg] Heike Melgoza APRN.GENERAL ASSISTANT Work Phone: [facility] 10-14-2023 09:43-0500 Heart rate 68 /min Heike Melgoza COURT COMMISSIONER.GENERAL ASSISTANT Work Phone: [facility] 10-14-2023 09:43-0500 Respiratory rate 15 /min Heike Melgoza COURT COMMISSIONER.GENERAL ASSISTANT Work Phone: [facility] 10-14-2023 09:43-0500 SaO2% (BldA) [Mass fraction] 100 % Heike Melgoza COURT COMMISSIONER.GENERAL ASSISTANT Work Phone: [facility] 10-14-2023 09:43-0500 Systolic blood pressure 128 mm[Hg] Heike Melgoza COURT COMMISSIONER.GENERAL ASSISTANT Work Phone: [facility] 09-29-2023 10:00-0500 Body temperature 97.11 [degF] NA Mirza PA-C Work Phone: [facility] 09-29-2023 10:00-0500 Body weight 67.13 kg NA Mirza PA-C Work Phone: [facility] 09-29-2023 10:00-0500 Diastolic blood pressure 74 mm[Hg] NA Mirza PA-C Work Phone: [facility] 09-29-2023 10:00-0500 Heart rate 75 /min NA Mirza PA-C Work Phone: [facility] 09-29-2023 10:00-0500 SaO2% (BldA) [Mass fraction] 98 % NA Mirza PA-C Work Phone: [facility] 09-29-2023 10:00-0500 Systolic blood pressure 130 mm[Hg] NA Mirza PA-C Work Phone: [facility] 09-10-2023 12:40-0400 Body weight 65.[address] COMMISSIONER.GENERAL ASSISTANT Work Phone: [facility] 09-10-2023 12:40-0400 Diastolic blood pressure 78 mm[Hg] Sahra Podlogar COURT COMMISSIONER.GENERAL ASSISTANT Work Phone: [facility] 09-10-2023 12:40-0400 Heart rate 79 /min Sahra Pod[address] COMMISSIONER.GENERAL ASSISTANT Work Phone: [facility] 09-10-2023 12:40-0400 Respiratory rate 18 /min Sahra Pod[address] COMMISSIONER.GENERAL ASSISTANT Work Phone: [facility] 09-10-2023 12:40-0400 SaO2% (BldA) [Mass fraction] 98 % Sahra Podlogar COURT COMMISSIONER.GENERAL ASSISTANT Work Phone: [facility] 09-10-2023 12:40-0400 Systolic blood pressure 134 mm[Hg] Sahra Podlogar COURT COMMISSIONER.GENERAL ASSISTANT Work Phone: [facility] 05-01-2023 13:43-0400 Body weight 66.22 kg NA Mirza PA-C Work Phone: [facility] 05-01-2023 13:43-0400 Diastolic blood pressure 68 mm[Hg] NA Mirza PA-C Work Phone: [facility] 05-01-2023 13:43-0400 Heart rate 49 /min NA Mirza PA-C Work Phone: [facility] 05-01-2023 13:43-0400 Respiratory rate 16 /min NA Mirza PA-C Work Phone: [facility] 05-01-2023 13:43-0400 SaO2% (BldA) [Mass fraction] 97 % NA Mirza PA-C Work Phone: [facility] 05-01-2023 13:43-0400 Systolic blood pressure 126 mm[Hg] NA Mirza PA-C Work Phone: [facility] 02-17-2023 13:58-0400 Body weight 66.68 kg Bebeto Petersen MD Work Phone: [facility] 02-17-2023 13:58-0400 Diastolic blood pressure 64 mm[Hg] Bebeto Petersen MD Work Phone: [facility] 02-17-2023 13:58-0400 Heart rate 74 /min Bebeto Petersen MD Work Phone: [facility] 02-17-2023 13:58-0400 SaO2% (BldA) [Mass fraction] 98 % Bebeto Petersen MD Work Phone: [facility] 02-17-2023 13:58-0400 Systolic blood pressure 122 mm[Hg] Bebeto Petersen MD Work Phone: [facility] 12-26-2022 10:25-0500 Body weight 67.13 kg NA Mirza PA-C Work Phone: [facility] 12-26-2022 10:25-0500 Diastolic blood pressure 62 mm[Hg] NA Mirza PA-C Work Phone: [facility] 12-26-2022 10:25-0500 Heart rate 76 /min NA Mirza PA-C Work Phone: [facility] 12-26-2022 10:25-0500 Respiratory rate 16 /min NA Mirza PA-C Work Phone: [facility] 12-26-2022 10:25-0500 SaO2% (BldA) [Mass fraction] 96 % NA Mirza PA-C Work Phone: [facility] 12-26-2022 10:25-0500 Systolic blood pressure 108 mm[Hg] NA Mirza PA-C Work Phone: [facility] 08-08-2022 11:34-0400 Body weight 67.13 kg NA Mirza PA-C Work Phone: [facility] 08-08-2022 11:34-0400 Diastolic blood pressure 60 mm[Hg] NA Mirza PA-C Work Phone: [facility] 08-08-2022 11:34-0400 Heart rate 74 /min NA Mirza PA-C Work Phone: [facility] 08-08-2022 11:34-0400 Respiratory rate 16 /min NA Mirza PA-C Work Phone: [facility] 08-08-2022 11:34-0400 SaO2% (BldA) [Mass fraction] 96 % NA Mirza PA-C Work Phone: [facility] 08-08-2022 11:34-0400 Systolic blood pressure 116 mm[Hg] NA Mirza PA-C Work Phone: [facility] 06-12-2022 14:59-0400 Body height 154.9 cm Bebeto Petersen MD Work Phone: [facility] 06-12-2022 14:59-0400 Body weight 68.31 kg Bebeto Petersen MD Work Phone: [facility] 06-12-2022 14:59-0400 Diastolic blood pressure 66 mm[Hg] Bebeto Petersen MD Work Phone: [facility] 06-12-2022 14:59-0400 Heart rate 74 /min Bebeto Petersen MD Work Phone: [facility] 06-12-2022 14:59-0400 SaO2% (BldA) [Mass fraction] 97 % Bebeto Petersen MD Work Phone: [facility] 06-12-2022 14:59-0400 Systolic blood pressure 112 mm[Hg] Bebeto Petersen MD Work Phone: [facility] 03-14-2022 08:52-0400 Diastolic blood pressure 64 mm[Hg] Fran Salcido MD Work Phone: [facility] 03-14-2022 08:52-0400 Heart rate 58 /min Fran Salcido MD Work Phone: [facility] 03-14-2022 08:52-0400 Respiratory rate 16 /min Fran Salcido MD Work Phone: [facility] 03-14-2022 08:52-0400 SaO2% (BldA) [Mass fraction] 96 % Fran Salcido MD Work Phone: [facility] 03-14-2022 08:52-0400 Systolic blood pressure 121 mm[Hg] Fran Salcido MD Work Phone: [facility] 03-14-2022 08:34-0400 Body temperature 97.9 [degF] Fran Salcido MD Work Phone: [facility] 03-12-2022 15:12-0400 Body weight 69.85 kg Bebeto Petresen MD Work Phone: [facility] 03-12-2022 15:12-0400 Diastolic blood pressure 70 mm[Hg] Bebeto Petersen MD Work Phone: [facility] 03-12-2022 15:12-0400 Heart rate 69 /min Bebeto Petersen MD Work Phone: [facility] 03-12-2022 15:12-0400 Respiratory rate 16 /min Bebeto Petersen MD Work Phone: [facility] 03-12-2022 15:12-0400 SaO2% (BldA) [Mass fraction] 97 % Bebeto Petersen MD Work Phone: [facility] 03-12-2022 15:12-0400 Systolic blood pressure 110 mm[Hg] Bebeto Petersen MD Work Phone: [facility] 02-28-2022 [id number] Body height 155.6 cm Barbie Ruiz MD Work Phone: [facility] 02-28-2022 [id number] Body weight 70.76 kg Barbie Ruiz MD Work Phone: [facility] 02-28-2022 10:28-0400 Heart rate 67 /min Barbie Ruiz MD Work Phone: [facility] 02-28-2022 10:28-0400 Respiratory rate 14 /min Barbie Ruiz MD Work Phone: [facility] 02-28-2022 10:28-0400 SaO2% (BldA) [Mass fraction] 94 % Barbie Ruiz MD Work Phone: [facility] 02-28-2022 10:25-040 Body height 155.6 cm Respiratory Wstr Work Phone: [facility] 02-28-2022 10:25040 Body weight 70.76 kg Respiratory Wstr Work Phone: [facility] 02-28-2022 10:25-0400 Heart rate 67 /min Respiratory Wstr Work Phone: [facility] 02-28-2022 10:25040 Respiratory rate 14 /min Respiratory Wstr Work Phone: [facility] 02-28-2022 10:250400 SaO2% (BldA) [Mass fraction] 94 % Respiratory Wstr Work Phone: [facility] Encounters Encounter Date Encounter Type Care Provider Facility Start: 12-17-2023 Refill Bebeto Petersen MD Work Phone: [facility] Procedures Date Procedure Procedure Detail Performing Clinician Start: 10-14-2023 Mri brain brain stem w/o w/contrast material Sahra Moreno COURT COMMISSIONER.GENERAL ASSISTANT Work Phone: Start: 07-28-2023 Myocardial spect mul tiple studies M Wali Mirza PA-C Work Phone: Start: 04-28-2023 Arthrocentesis aspir &/inj major jt/bursa w/o us Carlos Denney MD Work Phone: Start: 03-25-2023 End: 03-25-2023 Mammography Bebeto Petersen MD Work Phone: Start: 02-27-2023 End: 02-27-2023 Us abdominal real time w/image limited Bebeto Petersen MD Work Phone: Start: 08-08-2022 INFLUENZA SEASONAL QUADRIVALENT HIGH DOSE AGE 65+ M Wali Mirza PA-C Work Phone: Start: 03-13-2022 End: 03-13-2022 Mammography Bebeto Petersen MD Work Phone: Start: 02-28-2022 Nitric oxide gas determination Barbie Ruiz MD Work Phone: Start: 02-28-2022 Brncdilat rspse spmt ry pre&post-brncdilat admn Barbie Ruiz MD Work Phone: Start: 02-06-2022 Us retroperitoneal r eal time w/image complete Bebeto Petersen MD Work Phone: Start: 03-29-2021 Mammography eBbeto Cotto MD Work Phone: Start: 12-24-2017 Colonoscopy Bebeto Cotto MD Work Phone: Plan of Treatment Date Care Activity Detail Author Start: 02-05-2033 Urine microalbumin profile [facility] Start: 10-14-2024 BP Controlled (<130/80) BP Controlle d (<130/80) [facility] Start: 09-29-2024 3 comp foot exam completed Diabetic Foot Exam [facility] Start: 09-29-2024 Annual PCP Team Financial Intern blossom Disease Visit Annual PCP Team Chronic Disease Visit [facility] Start: 09-29-2024 Diabetic foot examination Diabetic F oot Exam [facility] Start: 09-29-2024 Hepatitis B surface antibody level LDL Cholesterol [facility] Start: 09-10-2024 Annual PCP Team Financial Intern blossom Disease Visit Annual PCP Team Chronic Disease Visit [facility] Start: 05-01-2024 ANNUAL PCP TEAM DIAMOND WHEEL EDGER BLOSSOM DISEASE VISIT ANNUAL PCP TEAM CHRONIC DISEASE VISIT [facility] Start: 05-01-2024 BP CONTROLLED (<130/80) BP CONTROLLE D (<130/80) [facility] Start: 05-01-2024 Hepatitis B surface antibody level LDL CHOLESTEROL [facility] Start: 04-02-2024 Glaucoma screening Dilated Retinal E xam [facility] Start: 04-02-2024 Hepatitis C antibody , confirmatory test DILATED RETINAL EXAM [facility] Start: 03-29-2024 Hemoglobin A1c measurement HbA1C [facility] Start: 03-29-2024 Hemoglobin A1c/Hemoglobin.total in Blood HbA1C [facility] Start: 03-28-2024 BP CONTROLLED (<130/80) BP CONTROLLE D (<130/80) [facility] Start: 03-27-2024 3 comp foot exam completed DIABETIC FOOT EXAM [facility] Start: 05-18-2024 ANNUAL PCP TEAM DIAMOND WHEEL EDGER BLOSSOM DISEASE VISIT ANNUAL PCP TEAM CHRONIC DISEASE VISIT [facility] Start: 03-27-2024 HIV SCREENING HIV SCREENING [facility] Immunizations Immunization Date Immunization Notes Care Provider Edward walters 07-25-2023 influenza (HD-IIV4) vaccine, age 65+ yr, high dose, quadrivalent, PF (FLUZONE HIGH-DOSE) NA Hermes MANSFIELD Work Phone: [facility] 07-25-2023 zoster vaccine recombinant NA Hermes MANSFIELD Work Phone: [facility] 02-05-2023 tetanus toxoid, redu kecia diphtheria toxoid, and acellular pertussis vaccine, adsorbed Bebeto Petersen MD Work Phone: [facility] 08-08-2022 influenza, high-dose , quadrivalent vaccine (FLUZONE HIGH DOSE QUADRIVALENT) AILYN Mirza PA-C Work Phone: [facility] 08-08-2022 pneumococcal polysaccharide vaccine, 23 valent NA Hermes MANSFIELD Work Phone: [facility] 08-08-2022 influenza virus vacc ine, unspecified formulation Nurse Wstr Work Phone: [facility] 07-17-2021 influenza, injectabl e, quadrivalent, preservative free Bebeto Petersen MD Work Phone: [facility] 07-20-2020 influenza, injectabl e, quadrivalent, contains preservative Bebeto Petersen MD Work Phone: [facility] Work Phone: 07-20-2020 influenza, injectabl e, quadrivalent, preservative free Bebeto Petersen MD Work Phone: [facility] 08-27-2019 influenza, injectabl e, quadrivalent, preservative free Bebeto Petersen MD Work Phone: [facility] 08-21-2019 influenza virus vacc ine, unspecified formulation Bebeto Petersen MD Work Phone: [facility] 07-31-2018 influenza, injectabl e, quadrivalent, contains preservative Bebeto Petersen MD Work Phone: [facility] 07-31-2018 influenza, injectabl e, quadrivalent, preservative free Bebeto Petersen MD Work Phone: [facility] 08-24-2017 influenza, seasonal, injectable Bebeto Petersen MD Work Phone: [facility] 07-31-2016 influenza, injectabl e, quadrivalent, contains preservative Bebeto Petersen MD Work Phone: [facility] 08-10-2015 influenza, injectabl e, quadrivalent, contains preservative Bebeto Petersen MD Work Phone: [facility] Work Phone: 08-01-2014 influenza, seasonal, injectable Bebeto ePtersen MD Work Phone: [facility] 10-27-2013 influenza virus vacc ine, unspecified formulation Bebeto Petersen MD Work Phone: [facility] Work Phone: 09-16-2012 pneumococcal polysaccharide vaccine, 23 valent Bebeto Petersen MD Work Phone: [facility] 08-14-2012 tetanus toxoid, redu kecia diphtheria toxoid, and acellular pertussis vaccine, adsorbed Bebeto Petersen MD Work Phone: [facility] Payers Date Payer Category Payer Medicaid [id number] 2023 Medicaid [id number] 2023 [facility] [id number] 2022 Medicaid [id number] 2022 Medicare [id number] 2017 Medicaid [employer] [id number] 2017-Present [phone] [address] [place] [address] Medicaid [id number] 2017 Medicaid [id number] Social History Date Type Detail Facility Start: 1975 End: 10-14-2023 Tobacco smoking status NHIS Smokes tobacco daily [facility] Work Phone: Start: 1975 History of tobacco use Cigarette Smoker [facility] Work Phone: Start: 06-20-2016 End: 03-19-2023 Cigarettes smoked current (pack per day) - Reported 0.5 [facility] Start: 06-20-2016 End: 10-14-2023 Tobacco use and exposure Smokeless tobacco non-user [facility] Work Phone: Start: 01-28-2022 End: 10-14-2023 Alcohol intake Lifetime non-drinker (finding) [facility] Start: 10-29-2021 End: 01-23-2023 History SDOH Alcohol Frequency 1 [facility] Start: 05-21-2016 Tobacco Comment As of 05/21/16, Quit . Relapse after fall and closed head injury/concussion. [facility] Start: 1955 Sex Assigned At Female [facility] Start: 01-20-2022 End: 01-30-2022 Exposure to SARS-CoV-2 (event) Unable to assess [facility] Work Phone: Start: 02-28-2022 End: 08-08-2022 Tobacco Comment Former one ppd smoker [facility] Start: 02-08-2022 End: 08-08-2022 Exposure to SARS-CoV-2 (event) Not sure [facility] Start: 06-11-2022 History SDOH Social Connections Phone 3 [facility] Start: 06-11-2022 End: 01-23-2023 History SDOH Social Connections Membership 2 [facility] Start: 06-11-2022 End: 01-23-2023 History SDOH Social Connections Living 5 [facility] Start: 06-11-2022 End: 01-23-2023 History SDOH Physical Activity DPW 0 [facility] Start: 01-23-2023 History SDOH Financial 4 [facility] Start: 01-23-2023 End: 03-19-2023 Social connection and isolation panel [facility] Do you belong to any clubs or organizations such as uatsdin groups, unions, fraternal or athletic groups, or school groups? No [facility] Are you now , , , , never or living with a partner? [facility] How often to you hav e a drink containing alcohol? Never [facility] How many standard dr inks containing alcohol do you have on a typical day? Patient does not drink [facility] How hard is it for y ou to pay for the very basics like food, housing, medical care, and heating Not very hard [facility] Do you feel stress - tense, restless, nervous, or anxious, or unable to sleep at night because your mind is troubled all the time - these days [OSQ] Not at all [facility] (I/We) worried richa er (my/our) food would run out before (I/we) got money to buy more. Sometimes true [facility] The food that (I/we) bought just didn't last, and (I/we) didn't have money to get more. Never true [facility] Start: 12-21-2019 Gender identity Identifies as female gender (finding) [facility] Start: 12-21-2019 Sexual orientation Heterosexual (finding) [facility] Medical Equipment Procedure Code Equipment Code Equipment Origin al Text Equipment Identifier Dates Start: 01-10-2021 End: 10-16-2023 Clinical Notes 04-20-2019 to 12-17-2023 Telephone Encounter - Sirisha Man LPN - 12/17/2023 3:24 PM ESTTelephone Encounter - Sirisha Man LPN - 12/17/2023 3:22 PM ESTTelephone Encounter - Olga Rosa - 12/15/2023 4:03 PM EST Note Date & Type Note Facility 12-17-2023 Miscellaneous Notes [facility]-09/29/23 Labs-09/29/2312/29/23 Sirisha Man LPN documented in this encounter [facility] 12-17-2023 Miscellaneous Notes [facility]-09/29/23 Labs-09/29/2319/24 Sirisha Man LPN documented in this encounter [facility] 12-15-2023 Miscellaneous Notes Patient is requesting to hold off on schedule CT Scan for lung cancer screening due to finances. She will notify office when she is ready to schedule. documented in this encounter [facility] 12-12-2023 Miscellaneous Notes Images from the original note were not included. Prior authorization approved Payer: [facility] [phone] Approval Details Authorized from November 10, 2023 to November 09, 2024 Electronic appeal: Not supported View History Notes Time User Attachment Attachment received from payer. 12/11/2023 4:55 PM [facility], Rx Priorauth In Document Medication Being Authorized dulaglutide (TRULICITY) 1.5 mg/0.5 mL pen injector Inject 1.5 mg subcutaneously one time a week. Inject once per week. Discard Pen After Dispense: 4 Each Refills: 5 Start: 12/08/2023 End: 05/24/2024 Class: Normal This order has been released to its destination. To be filled at: [facility] [address] [place] [address] - [address] [facility] - [phone] Pharmacy notified and pt via my chart. PA completed. Electronic PA requested. Patient sends [employer] message that she now has new insurance and [employer] requires a prior authorization. Script is at [facility]. documented in this encounter [facility] 12-08-2023 Note [facility] 10-16-2023 Miscellaneous Notes Patient last visit with PCP 09/29/2023 Follow up appointment scheduled 03/29/24 Barbie Gonsalez Ma documented in this encounter [facility] 10-16-2023 Miscellaneous Notes TALIA: 10/14/23 Patient phones requesting refills as follows: Requested Prescriptions Pending Prescriptions Disp Refills fluticasone-salmeterol (ADVAIR DISKUS) 250-50 mcg/dose inhaler 60 Each 2 Sig: Inhale 1 Puff as instructed two times a day. RINSE AND GARGLE MOUTH WITH WATER AFTER EACH USE. Please review and advise. Akosua Mistry LPN documented in this encounter [facility] 10-14-2023 Note [facility] 10-14-2023 Note [facility] 10-14-2023 History of Presen t illness Narrative Radiology Service Progress Note DATE OF SERVICE: October 14, 2023 TIME: 1:06 PM PATIENT IDENTITY VERIFICATION COMPLETED USING TWO (2) STANDARD IDENTIFIERS: Name and Date of confirmed by patient verbally. FALL SCREENING: Has the patient had 2 falls in the last year or 1 fall with injury or currently using an Ambulatory Assistive Device (Walker, Cane, Wheelchair, Crutches, etc.)? No PATIENT GENDER DATA: Female. status: : No status: NO. PATIENT RELEVANT IMPLANT DATA REVIEWED: Yes ALLERGIES: Reviewed and unchanged CONTRAST ALLERGY: NO. EXAM: MRI - CONTRAST TYPE: GROUP II PERIPHERAL IV DATA: Ambulatory: A peripheral IV was started in the Right antecubital site with a Angio cath: 22 gauge. RADIOLOGY DEPARTMENT: MR; Exam(s) Completed: Head: Routine Brain SIGNATURE: RT Tyrese(R) PATIENT NAME: Юлия Prasad DATE: October 14, 2023 TIME: 1:06 PM documented in this encounter [facility] 10-14-2023 Note [facility] 10-14-2023 Instructions Heike Melgoza APRN.GENERAL ASSISTANT - 10/14/2023 10:17 AM EST SMOKING CESSATION EDUCATION Why do I need to know about the health risks of cigarette smoking? Cigarette smoking is the most preventable cause of illness and . Cigarettes are filled with nicotine, which acts like a poison in your body. What are the health risks of cigarette smoking? You may have breathing problems that make it difficult for you to do daily activities or play sports. You have a higher risk of bone fractures because smoking can cause osteoporosis (brittle bones). If you fall asleep with a lit cigarette, you can start a fire. Cigarette smoking can also cause the following health problems: Cancer: Heart and blood vessel disease: The nicotine in tobacco causes an increase in your heart rate and blood pressure. Nicotine also causes your blood vessels to narrow. This can lead to blood clots in your heart or brain and cause a heart attack or stroke. Cigarette smoke has carbon monoxide in it. This can decrease the amount of oxygen flowing to your heart and other organs. Lung disease: The chemicals in cigarette smoke can damage your lungs. This causes a buildup of dirt and waste products in your lungs. Many people who smoke have a long-term cough as a result. Cigarette smoking may also cause long-term lung infections or diseases, such as asthma, emphysema, or chronic bronchitis. You are also at higher risk for respiratory illnesses, such as colds or pneumonia. Gastrointestinal disease: Cigarette smoking increases the amount of acid in your stomach. This can cause an ulcer or gastric reflux. Women and smoking: You have a higher risk of heart and blood vessel disease if you smoke and take control pills. The risk is more serious is you are 35 years or older. Why should I quit smoking? Your health will improve and your risks for many diseases will decrease. Your breath, clothes, and hair will no longer smell like smoke. Tobacco will no longer stain your teeth. Tobacco smoke is dangerous to others. If you quit, you will decrease the risks to those around you, such as your children or family members. Where can I go for support and more information? There are many ways to quit smoking. Some may work better for you than others. Your caregiver can help you find the best plan to quit. Smokefree.gov Web Address: www.smokefree.gov Phone: [place] Web Address: www.lung.org [address] [place] [address]. [facility] , [place] Phone: Phone: [facility] Smoking Cessation Program [email or web address] f CT Lung Screen Results The CT scan that you will have done will show if you have any nodules (small spots) in your lungs that are suspicious for cancer. Around 90% of the patients who have this scan done are found to have at least one nodule. Most nodules are benign (not cancer) and of no harm to you at all. A specialist will make a scientific evaluation about whether or not a nodule is worrisome based on its size and shape. The radiologist who will read your scan will put it into one of four categories: LUNG-RADS Category Description Overall Probability of Malignancy Recommended Follow-Up 1 Negative No nodules and definitely benign (non-cancerous nodules) Essentially 0. 1 Year - Follow-up Low dose CT 2 Benign Appearance or Behavior Nodules with a very low likelihood of becoming cancer due to size or lack of growth Less than 1% 1 Year - Follow-up Low dose CT 3 Probably Benign Probably benign finding, short term follow-up recommended 1 to 2% 6 Months - Follow-up Low dose CT 4 Suspicious Findings for which additional diagnostic testing and/or biopsy is recommended Will be calculated based on nodule characteristics. Dependent on what is seen on the exam. (3 month follow-up CT, PET-CT, or biopsy) At times, we may see something outside of the lungs on the scan that could be a health concern. Below are some of the most common findings: S Clinically Significant or Potentially Clinically Significant Findings (non lung cancer) Referral or additional imaging/labs depending on result. Approximately 10% of people receive this result. Coronary Artery Calcifications (Moderate or Severe) - Referral to cardiology for further work-up and recommendations. Thyroid Nodule - TSH level and Thyroid Ultrasound dependent on size, referral to endocrinology. Adrenal Nodule - blood work and referral to endocrinology. Others Lung Cancer Screening hotline: [phone] Lung Cancer Screening [phone] Billing Questions: or [email or web address] [email or web address] Specialist Providers: (Jackie Merritt CNP; Kailey Engle PA-C; Neyda Menjivar CNP; Patti Rodrigues CNP, Carina Loya CNP; Marcela Day CNP; Alondra Pimentel PA-C; Heike Melgoza CNP; Norma Merrill CNP; Michelle Beard PA-C; Alysia Rossi CNP; Bruna Calvillo CNP; Kely Dove CNP): [phone] documented in this encounter [facility] 10-14-2023 History of Presen t illness Narrative Images from the original note were not included. LUNG SCREENING VISIT PRIMARY CARE PHYSICIAN: Carolina Mirza PA-C PULMONARY PROVIDER: Dr. Larry Ruiz Results will be communicated via letter or electronic record if applicable. Visit Delivery: In Person Patient Visit Type: New to [place] Current or Ex-smoker? [Current Exam Type: annual LDCT-prior done at [facility] 03/19/2022 images available Number of Pack Years: 48 Current smoker (=0) The patient's smoking history is similar to prior year shared decision visit. REQUESTER: The referring provider advised the patient to have screening. HISTORY OF PRESENT ILLNESS: Юлия Prasad is a 68 year old Active smoker who presents for lung screening. On Advair daily, uses albuterol daily. Using it 3 times a day Respiratory symptoms include: SOB: Yes, with rushing, sometimes with walking up a hill or going up a flight of stairs Chest tightness: No Coughing: Yes: With mucus Clear Hemoptysis: No Wheezing: Yes at night Fever/Chills: No Recent Respiratory Infection: No Unintentional weight loss: No Last 6 Encounter Wt Readings: Date: Wt: 10/14/2023 67.1 kg (148 lb) 09/29/2023 67.1 kg (148 lb) 09/10/2023 65.9 kg (145 lb 3.2 oz) 05/01/2023 66.2 kg (146 lb) 03/28/2023 65.6 kg (144 lb 9.6 oz) 03/27/2023 65.8 kg (145 lb) ECOG PERFORMANCE STATUS: 0- Fully active, able to carry on all pre-disease performance w/o restriction. 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 Hyperlipidemia Lung nodules PAD (peripheral artery disease) ([facility]) 03/10/2017 02/06/2022 PVR ank/jackson/toe bilat: RIGHT SIDE JITENDRA: 1.19; TBI: 0.84, WNL at rest LEFT SIDE: JITENDRA: 1.19; TBI: 0.96, WNL at rest Pulmonary HTN (HCC) 12/08/2017 mild Squamous cell skin cancer, nasal tip 06/24/2016 Tobacco abuse 03/28/2017 PAST SURGICAL HISTORY Procedure Laterality Date ADDTL NECK SPINE FUSION 09/2004 CHOLECYSTECTOMY 2000 COLONOSCOPY 1982 COLONOSCOPY FLX DX W/COLLJ SPEC WHEN PFRMD 09/01/12 COLONOSCOPY FLX DX W/COLLJ SPEC WHEN PFRMD Done in [place] unable to obtain COLONOSCOPY FLX DX W/COLLJ SPEC WHEN PFRMD 11/17/2013 Colonoscopy COLONOSCOPY FLX DX W/COLLJ SPEC WHEN PFRMD 12/24/2017 Colonoscopy ESOPHAGOGASTRODUODENOSCOPY TRANSORAL DIAGNOSTIC 06/04/2013 EGD ESOPHAGOGASTRODUODENOSCOPY TRANSORAL DIAGNOSTIC 05/17/15 EGD ESOPHAGOGASTRODUODENOSCOPY TRANSORAL DIAGNOSTIC 12/24/2017 EGD HYSTERECTOMY HX 1984 Pelvic pain & DUB NEUROPLASTY &/TRANSPOS MEDIAN NRV CARPAL TUNNE Bilateral 08/27/2018 Bilateral carpal tunnel release OOPHORECTOMY PARTIAL/TOTAL UNI/BI 1985 Bilateral PAST SURGICAL HISTORY OF removed tissue nose for SCC PAST SURGICAL HISTORY OF 10/13/2017 Excision nasal mass, Dr Marbin Harris REMOVE TONSIL AND ADENOI UNDER AGE 14 SLING OPER STRES INCONTINENCE 2001 FAMILY HISTORY Problem Relation Age of Onset Colon Polyps Mother COPD Mother Colon Cancer Mother Colon Polyps Father Heart Father Colon Polyps Sister Hypertension Sister Hypertension Sister Colon Polyps Brother other (Parkinsonism [Other]) Brother Colon Polyps Brother Ischemic Heart Disease Brother Diabetes Maternal Grandfather rosuvastatin (CRESTOR) 20 mg tablet Take 1 tablet by mouth daily at bedtime. albuterol HFA (PROVENTIL HFA, VENTOLIN HFA) 90 mcg/actuation inhaler Inhale 2 Puffs as instructed every 4 hours as needed for wheezing/shortness of breath. furosemide (LASIX) 20 mg tablet Take 1 tablet by mouth once daily. pantoprazole DR (PROTONIX) 40 mg tablet Take 1 tablet by mouth once daily. metFORMIN (GLUCOPHAGE) 500 mg tablet Take 1 tablet by mouth two times a day with meals. meloxicam (MOBIC) 15 mg tablet take 1 tablet by mouth once daily. montelukast (SINGULAIR) 10 mg tablet Take 1 tablet by mouth daily at bedtime. citalopram (CELEXA) 40 mg tablet Take 1 tablet by mouth once daily. famotidine (PEPCID) 20 mg tablet Take 1 tablet by mouth once daily. coenzyme Q10 (COENZYME Q-10) 100 mg cap capsule Take 1 capsule by mouth twice daily. Cholecalciferol, Vitamin D3, 25 mcg (1,000 unit) cap Take 1 capsule by mouth once daily. dulaglutide (TRULICITY) 1.5 mg/0.5 mL pen injector Inject 1.5 mg subcutaneously one time a week. Inject once per week. Discard Pen After fluticasone-salmeterol (ADVAIR, WIXELA) 250-50 mcg/dose Inhale 1 Puff as instructed twice daily. aspirin, enteric coated (ASPIRIN, ENTERIC COATED) 81 mg EC tablet Take 81 mg by mouth once daily. clobetasol (TEMOVATE) 0.05 % cream apply to rash on legs and hands twice daily 5 days a week as needed. Apply twice daily as needed, up to 21 days per month. Avoid application to the face, armpits, groin. fluticasone-salmeterol (ADVAIR DISKUS) 250-50 mcg/dose inhaler Inhale 1 Puff as instructed twice daily. RINSE AND GARGLE MOUTH WITH WATER AFTER EACH USE. ondansetron orally disintegrating (ZOFRAN ODT) 4 mg disintegrating tablet Take 1 tablet by mouth every 8 hours as needed. blood sugar diagnostic (ONETOUCH VERIO TEST STRIPS) test strip Test blood sugar(s) 3 times daily. Dx: Type 2 DM - Controlled E11.9 Insulin: No Fluorouracil (EFUDEX) 5 % cream Apply to affected areas twice daily for 2-4 weeks or until red blistering reaction occurs. blood sugar diagnostic (BLOOD GLUCOSE TEST) test strip Test blood sugar(s) 3 times daily. Dx: Type 2 DM - Controlled E11.9 Insulin: No: True Matrix Lancets lancets Test blood sugar(s) 3 times daily. Dx: Type 2 DM - Controlled E11.9 Insulin: No True matrix buPROPion XL (WELLBUTRIN XL) 150 mg 24 hr tablet Take 150 mg by mouth once daily. (Patient not taking: Reported on 10/14/2023) Blood-Glucose Meter monitoring kit Glucose Meter of Choice - Kit - Dx: Type 2 DM - Controlled E11.9 COMPOUNDED PRESCRIPTION Tens unit DX: DDD of neck and lumbar spine traZODone 100 mg tablet Take 100 mg by mouth daily at bedtime. One or two busPIRone 5 mg tablet Take 5 mg by mouth twice daily. (Patient not taking: Reported on 10/14/2023) ALLERGIES Allergen Reactions Metronidazole Anaphylaxis Adhesive Other: See Comments redness with bandaids Augmentin [Amoxicil* Other: See Comments Thrush/yeast infection Ciprofloxacin Rash Clindamycin Swelling throat swelling Penicillins Intolerance Yeast infections Prozac [Fluoxetine * Rash Sulfa Dyne Rash The medications and allergies were reviewed and reconciled for this patient and deemed current. Lung Cancer Risk Factors: 1.Tobacco Use: Start Age 20, Quit Age: N/A, Average packs per day 1, Pack Years 50 2. Passive Smoke Exposure: Yes, as a Child and as an Adult 3. Personal hx of malignancy: No, Type of Cancer: 4. Significant exposures (1 year or more of exposure): Dusts, Painting, 5. Race: White 6. Education: Some College 7. BMI:Body mass index is 27.74 kg/m . Patient-entered Height: 5'2 Patient-entered Weight: 143 pounds 8. COPD: Yes 9. Pneumonia in the past 5 years: No 10. Is there a history of lung cancer in a first degree relative? No 11. Is there a history of lung cancer in a non-first degree relative? No 12. Is there a history of any other cancer in a first degree relative? Yes Health Maintenance Immunization History Administered Date(s) Administered influenza (HD-IIV4) vaccine, age 65+ yr, high dose, quadrivalent, PF (FLUZONE HIGH-DOSE) 08/08/2022 07/25/2023 influenza (IIV3) vaccine, age 3+ yr, trivalent (AFLURIA, FLULAVAL, FLUVIRIN, FLUZONE) 08/01/2014 08/24/2017 influenza (IIV4) vaccine, age 6 mo - 64 yr, quadrivalent (AFLURIA, FLULAVAL, FLUZONE) 08/10/2015 07/31/2016 07/31/2018 07/20/2020 influenza (IIV4) vaccine, age 6 mo - 64 yr, quadrivalent, PF (AFLURIA, FLUARIX, FLULAVAL, FLUZONE) 07/31/2018 08/27/2019 07/20/2020 07/17/2021 influenza vaccine, unspecified formulation 10/27/2013 08/21/2019 pneumococcal (PPV23) vaccine, 23 valent (PNEUMOVAX 23) 09/16/2012 08/08/2022 tetanus diphtheria pertussis (Tdap) vaccine, age 7+ yr (ADACEL, BOOSTRIX) 08/14/2012 02/05/2023 zoster (RZV) vaccine, recombinant (SHINGRIX) 07/25/2023 Colonoscopy: 12/24/2017 Mammogram: 03/26/2023 DATA REVIEW I have directly visualized the testing documented: 03/19/2022 LDCT at [facility] Prior Imaging: Last CT/CTA Chest/Lungs CT CHEST WO IVCON Exam End: 09/20/2019 2:43 PM (Final result) Narrative: * * *Final Report* * * DATE OF EXAM: Sep 20 2019 2:43PM [facility] [id number] - CT CHEST WO IVCON / PROCEDURE REASON: Lung nodules * * * * Physician Interpretation * * * * EXAMINATION: CHEST CT WITHOUT CONTRAST Indication: Lung nodules Technique: Spiral CT acquisition of the chest from the thoracic inlet to the upper abdomen without contrast. M: [id number] CT Dose-Length Product: 294 mGy*cm CT Dose Reduction Employed: Automated exposure control(AEC) and iterative recon Comparison: Chest radiograph dated 05/28/2019. Prior chest CT dated 05/23/2016. RESULT: Limitations: None. Lines, tubes, and devices: None. Lung parenchyma and pleura: There are stable subcentimeter pulmonary nodules. For example, there is a stable, approximately 7 mm nodule seen within the right middle lobe (series 5, image #104). There is a stable, approximately 3 mm nodule seen within the right apex (series 5, image #20). Other subcentimeter pulmonary nodules are also stable. For example, there is a stable, approximately 6 mm nodule seen within the medial aspect of the right lower lobe (series 5, image #101). There is a stable, approximately 3 mm nodule seen within the left lower lobe (series 5, image #92). There is no new pulmonary nodule. There is mild biapical fibrosis. No CT evidence for pneumonia. There is no pleural effusion, pneumothorax, or endobronchial lesion. Thoracic inlet, heart, and mediastinum: Atherosclerotic calcifications are present within the thoracic aorta and coronary arteries. The heart is normal in size, and there is no significant pericardial effusion. Fatty replacement of the intra-atrial septum. There are no pathologically enlarged axillary, mediastinal, or hilar lymph nodes. Bones and soft tissues: There is scoliosis, osteopenia, and multilevel degenerative change seen within the thoracic spine. Postsurgical changes are seen within the visualized lower cervical spine. Anterior osteophytes are seen at multiple levels. Upper abdomen: The patient is status post cholecystectomy. There is an approximately 1.8 x 1.2 cm cyst within the upper pole of the left kidney (series 5, image #151). Nonspecific wall thickening of the stomach likely relates to underdistention. Stable nonspecific periportal adenopathy. For example, a periportal lymph node measures approximately 1 cm in short axis dimension (series 5, image #173). . Impression: IMPRESSION: No acute pulmonary process is identified. Stable subcentimeter pulmonary nodules, most likely benign, given stability for over 2 years. No follow-up examination is required. No lymphadenopathy is seen within the chest. 1.8 cm cyst within the upper pole of the left kidney. Nonspecific periportal lymphadenopathy. It Security Manager: [facility] Transcribe Date/Time: Sep 21 2019 7:57A Dictated by : YONI REECE MD This examination was interpreted and the report reviewed and electronically signed by: YONI REECE MD on Sep 21 2019 8:03AM EST Last CT Chest - Impression Only CT CHEST WO IVCON Exam End: 09/20/2019 2:43 PM (Final result) Impression: IMPRESSION: No acute pulmonary process is identified. Stable subcentimeter pulmonary nodules, most likely benign, given stability for over 2 years. No follow-up examination is required. No lymphadenopathy is seen within the chest. 1.8 cm cyst within the upper pole of the left kidney. Nonspecific periportal lymphadenopathy. ... Last XR Chest - Impression Only XR RIBS/CHEST 3V AP RIB/OBLS/CXR RIGHT Exam End: 09/10/2023 1:54 PM (Final result) Impression: IMPRESSION: No acute abnormality is identified. It Security Manager: [facility] Transcribe Date/Time: Sep 10 2023 2:08P Dictated by : DUY MONTALVO MD... Pulmonary Function Testing: SPIROMETRY WITH DILATOR IF OBSTRUCTED ([id number]) - ordered on 02/28/22 [facility] [address] [facility], [place] [address] Test Date: 2022-02-28 Pat Name: SHANTEL PRASAD Department: Room: Gender: Female Form Tamper: : 1955 Requested By: Order Number: [id number] Reading MD: Barbie Ruiz M.D. Interpretive Statements SP-ATS/ERS acceptability and repeatability standards for spirometry met. IMPRESSION: Spirometry is normal. Minimal small airways obstruction. Electronically Signed On 02-28-2022 16:02:48 EDT by Barbie Ruiz M.D. Site: WO ID: [id number] Name: SHANTEL PRASAD Visit Date: 02/28/2022 Doctor: Form Tamper: Lata Dhillon Age: 66 Date of : 1955 Gender: Female Race: White Height: 61.25 in Weight: 156.00 lbs BSA: 1.705 Diagnosis: Pulmonary Hypertension Dyspnea: Cough: Wheeze: Tobacco Product: Cigarette Years Smoked: 42.0 Packs/Day: .5 Years Quit: Medications: Comments: SP-ATS/ERS acceptability and repeatability standards for spirometry met. Review Status: Not Reviewed PRE-BRONCH POST-BRONCH Pred LLN ULN Actual %Pred Actual %Chng SPIROMETRY FVC (L) 2.74 2.04 3.47 2.60 95 FEV1 (L) 2.16 1.60 2.69 1.94 89 FEV1/FVC 0.79 0.67 0.90 0.74 93 FEF25 (L/sec) 4.82 FEF50 (L/sec) 3.01 1.40 4.62 2.07 68 FEF75 (L/sec) 0.51 0.19 1.25 0.40 79 RAS42-39 (L/sec) 1.96 0.96 3.33 1.43 73 PEF L/s (L/sec) 5.61 4.04 7.18 5.34 95 FIVC (L) 2.52 FIF50 (L/sec) 4.21 PIF (L/sec) 4.21 Time (sec) 9.74 RODDY (L) 0.09 FET PEF (sec) 0.10 . PHYSICAL EXAM: BP 128/70 Pulse 68 Resp 15 Wt 67.1 kg (148 lb) SpO2 100% BMI 27.74 kg/m Deferred ASSESSMENT and RECOMMENDATIONS: 1. Screening for lung cancer: Six year risk for lung cancer: 5.81% [email or web address] I have determined that the patient is eligible for a low dose CT based on age, absence of signs or symptoms of lung cancer, and total pack years: Yes. The patient and I engaged in shared decision making, including the use of one or more decision aids, to include benefits, harms, follow-up diagnostic testing, over-diagnosis, false positive rate, and total radiation exposure. The patient understands and feels comfortable with it: Yes. The patient was counseled on the importance of adherence to annual LDCT lung cancer screening, impact of comorbidities and ability or willingness to undergo diagnosis and treatment. The patient understands and feels comfortable with it:Yes. 2. Nicotine dependence: The patient was counseled on the importance of smoking cessation if current smoker and, if appropriate, offered additional tobacco cessation counseling services - Smoking Cessation Counseling. SMOKING CESSATION COUNSELING Smoking cessation methods including Nicotine Replacement Therapies and Behavior Modification were discussed with the patient and assistance offered. 4 years ago quit cold turkey for 8 mos. Had concussion and restarted. The medical conditions adversely affected by cigarette use include:COPD, Emphysema, and Lung Cancer. The patient is currently not ready to quit. I personally spent 3 minutes in counseling. The time spent in smoking cessation counseling is exclusive of any other counseling during this visit. Heike Melgoza APRN.RADHA NPI #: October 14, 2023 9:59 AM documented in this encounter [facility] 09-30-2023 Miscellaneous Notes Patient called and notified of results and providers instructions on secure voicemail. Patient to call back for any questions. Alicia Tidwell RN Please let her know I increased rosuvastatin to 20 mg, she can double 10mg to equal 20mg if she wants to use them up. Recheck lab 3 months. Telephone on 09/30/23 LIPID PANEL BASIC Thanks, Maciej Mirza PA-C documented in this encounter [facility] 09-29-2023 Note [facility] 09-29-2023 History of Presen t illness Narrative 68 year old female with c/o 6 month follow up Right upper arm pain that is a dull ache. 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 Post-operative change: None. Acute change: No evidence of an acute infarct or other acute parenchymal process. Hemorrhage: No evidence of acute intracranial hemorrhage. ECASS hemorrhagic transformation score: Not Applicable Mass Lesion / Mass Effect: There is a 9 mm somewhat oval-shaped nonspecific region of increased attenuation within the posterior left thalamus. No obvious corresponding abnormality was seen on the prior MRI from 8 years ago. No significant mass effect. Chronic change: None apparent. Parenchyma: There is mild generalized volume loss. The brain parenchyma is otherwise within normal limits for age. Ventricles: The ventricles are within normal limits of size and configuration for age. Paranasal sinuses and skull base: The visualized paranasal sinuses are grossly clear. The skull base and imaged soft tissues are unremarkable. MRI recommended Has outstanding MRI. Syncope and collapse (primary encounter diagnosis) Last episode was beginning of September 2023. Feels unsteady before it happens, and passes out completely. Has no idea how long she is out. 09/10/2023 was reviewed by Sahra Podlogmarisa GENERAL ASSISTANT: occurred after vomiting while sitting on the toilet. No significant injuries. Has orthostatic sx if stands quickly. On going for years, saw Manager Endoscopy Dr. Forman 09/21/2015 for same scenario as above. 07/28/2023 nuclear perfusion pharmacologic stress test: CONCLUSIONS: 1. SPECT Perfusion Study: Normal. 2. There is no scintigraphic evidence for inducible ischemia. 3. No evidence of scarred myocardium. 4. Left ventricle is normal in size. The left ventricle systolic function is normal. 5. Right ventricle is normal in size. The right ventricle systolic function is normal. 6. This is a low risk scan. Gated Stress FBP LVEF % 81 08/08/22, 01:15pm to08/21/22, 01:46pm ZIO monitor: heart rates between 50-139 bpm, and avg HR of 72 in normal sinus rhythm. 3 runs with SVT (rapid rate) of which the fastest was 139bpm x 6 sec he longest lasting 4 beats at 98bpm. Low burden of benign ectopy 09/28/2015 echocardiogram: LV size and LVSF WNL, EF 54%. Mild concentric LVH. LVEF stage I, wall motion all scored normal. RV size WNL, mild RVH, RV SF WNL, RVSP: 36 mmHg consistent with mild pulmonary hypertension, RAP 5 mmHg. LA, RA, inferior vena cava WNL No significant valvular heart disease. Essential hypertension Current meds: Aspirin 81 mg once daily Furosemide 20 mg daily Patient is compliant with meds Yes Monitors bp at home: Yes. If yes, readings: 125-135 SBP / 70s-90s Denies side effects: No. Chest pain: No Dyspnea: Yes, when raking leaves Edema: No. Palpitations: No. Syncope: Yes, has episodes when she passes out see HPI. Headache: Yes. Right temporal region. Every day and throbbing in sensation. Benadryl helps Dizziness: Yes, when sugar gets low Last 3 Encounter BP Readings: Date: BP: 09/29/2023 130/74 09/10/2023 134/78 05/01/2023 126/68 Last 2 Encounter Wt Readings: Date: Wt: 09/29/2023 67.1 kg (148 lb) 09/10/2023 65.9 kg (145 lb 3.2 oz) Pulmonary htn ([facility]) 09/28/16 echocardiogram: EF = 66 5%; mild pulmonary hypertension. Chronic obstructive pulmonary disease, unspecified copd type ([facility]) Albuterol HFA 90 mcg per actuation: 2 puffs every 4 hours as needed wheezing/ SOB fluticasone- salmeterol 250-50 mcg per dose 1 puff twice daily Montelukast 10 mg daily at bedtime Sometimes lungs feel full of crud and wheezes every now and then Diabetes Mellitus Type 2: Current medications: Metformin 500 mg Dulaglutide 1.5 injection once week Taking medication as directed consistently? Yes Medication side effects: Medical Issues / Complications: neuropathy Checking blood sugars at home? Yes. Normally its 120-135. Doesn't let it go below 100 or feels dizzy Watching diet? Yes, chicken , turkey, veggies, drinking grapefruit juice and cranberry juice Physical Activity: Regular, rakes leaves a lot. Hypoglycemic spells? Yes, only if she doesn't eat. Makes sure to eat now. Any visual disturbance? Yes, right eye films over Chest pain? No New numbness, tingling or loss of sensation? Yes, mostly pain in big toes Any recent foot problems, sores or rashes? No Any recent or sudden weight loss? No Change in urination? No. If yes: Any recent illness? No Last eye exam: This year sometime . Last foot exam: unknown. Additional: Toes hurt when wearing shoes HBA1C: Hemoglobin A1C (%) Date Value 05/01/2023 6.4 12/26/2022 6.5 03/26/2021 7.2 09/13/2020 6.9 ) CMP: Glucose 97 09/10/2023 BUN 19 09/10/2023 Creatinine 0.90 09/10/2023 Sodium 137 09/10/2023 Potassium 3.8 09/10/2023 Chloride 98 09/10/2023 CO2 26 09/10/2023 Protein, Total 8.1 09/10/2023 Albumin 4.5 09/10/2023 Calcium 10.2 09/10/2023 Alkaline Phosphatase 28 09/10/2023 Bilirubin, Total 0.3 09/10/2023 AST 25 09/10/2023 ALT 26 09/10/2023 Last 2 Encounter Wt Readings: Date: Wt: 09/29/2023 67.1 kg (148 lb) 09/10/2023 65.9 kg (145 lb 3.2 oz) Tobacco abuse: 1/2 PPD Mixed hyperlipidemia Hyperlipidemia: Current medication Rouvastation 10 mg Taking medication consistently Yes Observing low cholesterol high fiber diet Yes Muscle aches No Stomach complaints/ diarrhea No Last 2 Lipids: Component Latest Ref Rng & Units 12/25/2018 09/13/2020 01/24/2022 12/26/2022 05/01/2023 Cholesterol, Total <200 mg/dL 170 137 114 119 Triglyceride <150 mg/dL 239 (H) 196 (H) 130 125 HDL Cholesterol >39 mg/dL 45 49 51 54 LDL Cholesterol <100 mg/dL 77 49 37 40 Non HDL Cholesterol <130 mg/dL 125 88 63 65 Fasting Time hrs 14 12 13 12 VLDL Cholesterol <30 mg/dL 48 (H) 39 (H) 26 25 TC:HDL Ratio <5.10 3.78 2.80 2.24 2.20 LDL:HDL Ratio <2.54 1.71 1.00 0.73 0.74 Total Cholesterol, Nonfasting <200 mg/dL 121 Triglycerides, Nonfasting <150 mg/dL 187 (H) HDL Cholesterol, Nonfasting >39 mg/dL 49 LDL Cholesterol, Nonfasting <100 mg/dL 35 Non HDL Cholesterol, Nonfasting <130 mg/dL 72 VLDL Cholesterol, Nonfasting <30 mg/dL 37 (H) Total Chol/HDL Ratio, Nonfasting <5.10 mg/dL 2.47 LDL/HDL Ratio, Nonfasting <2.54 mg/dL 0.71 HBA1C: Hemoglobin A1C (%) Date Value 05/01/2023 6.4 12/26/2022 6.5 03/26/2021 7.2 09/13/2020 6.9 ) CMP: Glucose 97 09/10/2023 BUN 19 09/10/2023 Creatinine 0.90 09/10/2023 Sodium 137 09/10/2023 Potassium 3.8 09/10/2023 Chloride 98 09/10/2023 CO2 26 09/10/2023 Protein, Total 8.1 09/10/2023 Albumin 4.5 09/10/2023 Calcium 10.2 09/10/2023 Alkaline Phosphatase 28 09/10/2023 Bilirubin, Total 0.3 09/10/2023 AST 25 09/10/2023 ALT 26 09/10/2023 Last 2 Encounter Wt Readings: Date: Wt: 09/29/2023 67.1 kg (148 lb) 09/10/2023 65.9 kg (145 lb 3.2 oz) Chronic antral gastritis Gastroesophageal reflux disease without esophagitis Pepcid 20 mg once daily Pantoprazole DR 40 mg Current symptoms: None. Last Mg level if on PPI chronically: 2022= WNL . Heartburn is controlled: Yes. Dysphagia: Yes. For awhile. Sometimes chokes a little Bloody or black stools: No. Bowel changes: No. Last EGD and/or colonoscopy: Was scheduled last year but didn't do because she doesn't have anyone to take her. . Degeneration of lumbar or lumbosacral intervertebral disc Dyshidrotic hand dermatitis Stable Hands turn purple when really cold and exposed to cold. Major depressive disorder Current medications: Buspirone 5 mg twice daily Citalopram 40 mg daily Trazodone 100 mg daily at bedtime 1-2 tabs as needed Feels mood is stable Medication does help with anxiety and with sleep. Not interested in making changes currently. 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 Hyperlipidemia Lung nodules PAD (peripheral artery disease) ([facility]) 03/10/2017 02/06/2022 PVR ank/jackson/toe bilat: RIGHT SIDE JITENDRA: 1.19; TBI: 0.84, WNL at rest LEFT SIDE: JITENDRA: 1.19; TBI: 0.96, WNL at rest Pulmonary HTN (HCC) 12/08/2017 mild Squamous cell skin cancer, nasal tip 06/24/2016 Tobacco abuse 03/28/2017 PAST SURGICAL HISTORY Procedure Laterality Date ADDTL NECK SPINE FUSION 09/2004 CHOLECYSTECTOMY 2000 COLONOSCOPY 1982 COLONOSCOPY FLX DX W/COLLJ SPEC WHEN PFRMD 09/01/12 COLONOSCOPY FLX DX W/COLLJ SPEC WHEN PFRMD Done in [place] unable to obtain COLONOSCOPY FLX DX W/COLLJ SPEC WHEN PFRMD 11/17/2013 Colonoscopy COLONOSCOPY FLX DX W/COLLJ SPEC WHEN PFRMD 12/24/2017 Colonoscopy ESOPHAGOGASTRODUODENOSCOPY TRANSORAL DIAGNOSTIC 06/04/2013 EGD ESOPHAGOGASTRODUODENOSCOPY TRANSORAL DIAGNOSTIC 05/17/15 EGD ESOPHAGOGASTRODUODENOSCOPY TRANSORAL DIAGNOSTIC 12/24/2017 EGD HYSTERECTOMY HX 1984 Pelvic pain & DUB NEUROPLASTY &/TRANSPOS MEDIAN NRV CARPAL TUNNE Bilateral 08/27/2018 Bilateral carpal tunnel release OOPHORECTOMY PARTIAL/TOTAL UNI/BI 1985 Bilateral PAST SURGICAL HISTORY OF removed tissue nose for SCC PAST SURGICAL HISTORY OF 10/13/2017 Excision nasal mass, Dr Marbin Harris REMOVE TONSIL AND ADENOI UNDER AGE 14 SLING OPER STRES INCONTINENCE 2001 Social History Tobacco Use Smoking status: Every Day Packs/day: 0.50 Years: 35.00 Additional pack years: 0.00 Total pack years: 17.50 Types: Cigarettes Start date: 1975 Smokeless tobacco: Never Tobacco comments: Former one ppd smoker Vaping Use Vaping Use: Never used Substance Use Topics Alcohol use: Never Drug use: No ACTIVE PROBLEM LIST Atypical Nevus of Back Actinic Keratosis Actinic Skin Damage Melanocytic Nevi of Face Dermatofibroma of Right Thigh Dermatofibroma of Forearm Other Seborrheic Keratosis Solar Lentigines Degeneration of Lumbar Or Lumbosacral Intervertebral Disc Gerd (Gastroesophageal Reflux Disease) Depression Type 2 Diabetes Mellitus With Diabetic Neuropathy (Hcc) Cervicalgia Squamous Cell Skin Cancer, Nasal Tip Mixed Hyperlipidemia Chronic Obstructive Pulmonary Disease (Hcc) Tobacco Abuse Fh: Colon Polyps Dysphagia Back Pain Pulmonary Htn (Hcc) Carpal Tunnel Syndrome On Both Sides Renal Cyst Essential Hypertension Osteopenia After Menopause Major Depressive Disorder, Recurrent Severe Without Psychotic Features ([facility]) Current Outpatient Medications Medication Sig Dispense Refill meloxicam (MOBIC) 15 mg tablet take 1 tablet by mouth once daily. 30 tablet 1 montelukast (SINGULAIR) 10 mg tablet Take 1 tablet by mouth daily at bedtime. 90 tablet 1 citalopram (CELEXA) 40 mg tablet Take 1 tablet by mouth once daily. 90 tablet 1 metFORMIN (GLUCOPHAGE) 500 mg tablet Take 1 tablet by mouth three times daily. (Patient taking differently: Take 500 mg by mouth three times a day. Twice daily) 90 tablet 5 albuterol HFA (PROVENTIL HFA, VENTOLIN HFA) 90 mcg/actuation inhaler Inhale 2 Puffs as instructed every 4 hours as needed for wheezing/shortness of breath. 1 Each 2 furosemide (LASIX) 20 mg tablet Take 1 tablet by mouth once daily. 30 tablet 5 rosuvastatin (CRESTOR) 10 mg tablet Take 1 tablet by mouth daily at bedtime. [address] (PROTONIX) 40 mg tablet Take 1 tablet by mouth once daily. 30 tablet 5 famotidine (PEPCID) 20 mg tablet Take 1 tablet by mouth once daily. 30 tablet 11 coenzyme Q10 (COENZYME Q-10) 100 mg cap capsule Take 1 capsule by mouth twice daily. 60 capsule 11 Cholecalciferol, Vitamin D3, 25 mcg (1,000 unit) cap Take 1 capsule by mouth once daily. 90 capsule 3 dulaglutide (TRULICITY) 1.5 mg/0.5 mL pen injector Inject 1.5 mg subcutaneously one time a week. Inject once per week. Discard Pen After 12 Each 3 ondansetron orally disintegrating (ZOFRAN ODT) 4 mg disintegrating tablet Take 1 tablet by mouth every 8 hours as needed. 30 tablet 5 fluticasone-salmeterol (ADVAIR, WIXELA) 250-50 mcg/dose Inhale 1 Puff as instructed twice daily. 60 Each 1 clobetasol (TEMOVATE) 0.05 % cream apply to rash on legs and hands twice daily 5 days a week as needed. Apply twice daily as needed, up to 21 days per month. Avoid application to the face, armpits, groin. 45 g 1 buPROPion XL (WELLBUTRIN XL) 150 mg 24 hr tablet Take 150 mg by mouth once daily. aspirin, enteric coated (ASPIRIN, ENTERIC COATED) 81 mg EC tablet Take 81 mg by mouth once daily. traZODone 100 mg tablet Take 100 mg by mouth daily at bedtime. One or two busPIRone 5 mg tablet Take 5 mg by mouth twice daily. fluticasone-salmeterol (ADVAIR DISKUS) 250-50 mcg/dose inhaler Inhale 1 Puff as instructed twice daily. RINSE AND GARGLE MOUTH WITH WATER AFTER EACH USE. 60 Each 2 gabapentin (NEURONTIN) 300 mg capsule Take 1 capsule by mouth daily at bedtime for 90 days. 90 capsule 2 blood sugar diagnostic (ONETOUCH VERIO TEST STRIPS) test strip Test blood sugar(s) 3 times daily. Dx: Type 2 DM - Controlled E11.9 Insulin: No 50 Strip 11 lidocaine (LIDODERM) 5 % Apply 1 Patch as directed every 12 hours. Remove old patch prior to placing new patch. Location: back 15 Patch 0 Fluorouracil (EFUDEX) 5 % cream Apply to affected areas twice daily for 2-4 weeks or until red blistering reaction occurs. 40 g 0 blood sugar diagnostic (BLOOD GLUCOSE TEST) test strip Test blood sugar(s) 3 times daily. Dx: Type 2 DM - Controlled E11.9 Insulin: No: True Matrix 150 Strip 11 Lancets lancets Test blood sugar(s) 3 times daily. Dx: Type 2 DM - Controlled E11.9 Insulin: No True matrix 100 Each 11 Blood-Glucose Meter monitoring kit Glucose Meter of Choice - Kit - Dx: Type 2 DM - Controlled E11.9 1 Each 0 COMPOUNDED PRESCRIPTION Tens unit DX: DDD of neck and lumbar spine 1 Each 0 No current facility-administered medications for this visit. BP Controlled (<130/80) Never done Hepatitis B Vaccine(1 of 3 - Risk 3-dose series) Never done RSV Vaccine(1 - 1-dose 60+ series) Never done Colorectal Cancer Screening due on 12/24/2022 Pneumococcal Vaccine: 65+(2 - PCV) due on 08/08/2023 Shingrix Vaccine(2 of 2) due on 09/19/2023 EXAM: BP 130/74 Pulse 75 Temp 36.2 C (97.1 F) (Left Tympanic) Wt 67.1 kg (148 lb) SpO2 98% BMI 27.74 kg/m Pleasant adult female in no acute distress. Alert and oriented all spheres. Normal affect and cognition. Speech normal. No deficits to learning or comprehension. Skin warm, dry, pink to lips and nailbeds. Normal turgor. Respirations regular and unlabored. HEENT: NCAT. No scleral icterus or conjunctival injection. TM's clear. Nose and oropharynx free from injection or lesion. Oral membranes moist and pink. No cervical lymph nodes. Thyroid non-tender, no masses, or enlargement. Carotids pulses 2+/4+ without bruits. No JVD with HOB at 30 degrees. Chest is normal shape. Lungs are clear to all roberts with good air exchange through out. HRRR without murmur or gallop. No lifts, heaves, or rubs. Extrem: no clubbing or cyanosis. Edema: None. Extremities are warm and pink with prompt capillary refill. Feet:Shoes and socks removed, Are you having foot pain yes, No deformities, ulcers, calluses, normal distal pulses, not sensitive to monofilament to metatarsal pads, and vibratory perception normal ASSESSMENT/PLAN: 1. Syncope and collapse - ICD9: 780.2, ICD10: R55 (primary diagnosis) No recurrence although patient does occasionally get lightheaded or dizzy standing up from prolonged sitting or laying. 2. Essential hypertension - ICD9: 401.9, ICD10: I10 - Controlled - Continue current medications - Recommend home blood pressure monitoring, to bring results to next visit - Encouraged sodium restriction, DASH or Mediterranean diet - Recommend regular aerobic exercise - FUROSEMIDE 20 MG TABLET 3. Pulmonary HTN (HCC) - ICD9: 416.8, ICD10: I27.20 Mild to moderate, probably due for recheck. 4. Chronic obstructive pulmonary disease, unspecified COPD type (HCC) - ICD9: 496, ICD10: J44.9 Stable on medication, continue. - ALBUTEROL SULFATE HFA 90 MCG/ACTUATION AEROSOL INHALER 5. Tobacco abuse - ICD9: 305.1, ICD10: Z72.0 - Cessation encouraged. - Physiologic and physical aspects of tobacco addiction as well as strategies for quitting were discussed. - Counseling was given focusing on the harmful effects of this addiction especially given the patient's medical condition(s) which will be worsened because of the chemicals in tobacco. 6. Mixed hyperlipidemia - ICD9: 272.2, ICD10: E78.2 - Controlled - Continue current medications - Counseled on healthy diet and regular exercise - ROSUVASTATIN 10 MG TABLET - LIPID PANEL BASIC 7. Type 2 diabetes mellitus with diabetic neuropathy, without long-term current use of insulin (HCC) - ICD9: 250.60, 357.2, ICD10: E11.40 - Controlled - Continue current medications - HGB A1C 8. Chronic antral gastritis - ICD9: 535.10, ICD10: K29.50 Controlled on medication, encourage weight loss, healthy eating habits. - PANTOPRAZOLE 40 MG TABLET,DELAYED RELEASE 9. Gastroesophageal reflux disease without esophagitis - ICD9: 530.81, ICD10: K21.9 As above - PANTOPRAZOLE 40 MG TABLET,DELAYED RELEASE 10. Degeneration of lumbar or lumbosacral intervertebral disc - ICD9: 722.52, ICD10: M51.37 Chronic low back pain Patient is managing well, continues with stretching and exercise as tolerated. 11. Dyshidrotic hand dermatitis - ICD9: 705.81, ICD10: L30.1 Refill - CLOBETASOL 0.05 % TOPICAL CREAM 12. Encounter for screening for lung cancer - ICD9: V76.0, ICD10: Z12.2 Patient agrees for lung cancer screening, making attempts to diminish cigarette use gradually. - CONSULT LUNG CANCER SCREENING CLINIC 13. Vaginal pain - ICD9: 625.9, ICD10: R10.2 Patient notes pain and irritation sometimes bleeding, recommended gynecology since we do not have the right specula here. - CONSULT TO GYNECOLOGY 14. Major depressive disorder, recurrent 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) - ICD9: 296.33, ICD10: F33.2 Stable on medication, wishes to continue. 15. At risk for polypharmacy - ICD9: V49.89, ICD10: Z91.89 Patient would like to reduce medications, we have discussed this in the past due to overlapping and potential complications with side effects. Optional medications reviewed which include meloxicam, montelukast,Trazodone. Patient does not want to go off these medicines at the present time . F/u 6 months. Some of this note may have been copied and pasted for the purpose of history context and comparison and has been adjusted for changes in prior data. Carolina Mirza PA-C documented in this encounter [facility] 09-10-2023 Note [facility] 09-10-2023 Note [facility] 09-10-2023 Instructions MarbellalogSahra cunningham APRN.CNP - 09/10/2023 1:21 PM EDT If you develop visual changes, increasing head or neck pain, feel confused, have unsteady walking or vomiting go to ER documented in this encounter [facility] 09-10-2023 History of Presen t illness Narrative 09/10/2023 Patient presents with: Syncope: Last evening x1. SUBJECTIVE: This is a 68 year old that is here today for Above Complaints. Reports last night she passed out. Was not evaluated after episode. Became sick to her stomach after eating dinner and went into bathroom and sat on the toilet. Put trash can between her legs and then woke up on the floor with head in trash can and vomit around her. Thinks she hit the back of her head because it hurts. She remembers prior to episode she felt like blood was not getting to her head. Blood sugar was 108 prior to incident. Has had two syncopal episodes in the past one from heatstroke and the other similar to yesterday's. Having some rib pain bilaterally she thinks was caused by landing on trash can. Back of neck hurting as well. Does not currently feel dizzy or lightheaded. 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 Hyperlipidemia Lung nodules PAD (peripheral artery disease) ([facility]) 03/10/2017 02/06/2022 PVR ank/jackson/toe bilat: RIGHT SIDE JITENDRA: 1.19; TBI: 0.84, WNL at rest LEFT SIDE: JITENDRA: 1.19; TBI: 0.96, WNL at rest Pulmonary HTN ([facility]) 12/08/2017 mild Squamous cell skin cancer, nasal tip 06/24/2016 Tobacco abuse 03/28/2017 ALLERGIES Metronidazole, Adhesive, Augmentin [Amoxicillin-Pot Clavulanate], Ciprofloxacin, Clindamycin, Penicillins, Prozac [Fluoxetine Hcl], and Sulfa Dyne MEDICATIONS Current Outpatient Medications Medication Sig meloxicam (MOBIC) 15 mg tablet take 1 tablet by mouth once daily. montelukast (SINGULAIR) 10 mg tablet Take 1 tablet by mouth daily at bedtime. citalopram (CELEXA) 40 mg tablet Take 1 tablet by mouth once daily. metFORMIN (GLUCOPHAGE) 500 mg tablet Take 1 tablet by mouth three times daily. fluticasone-salmeterol (ADVAIR DISKUS) 250-50 mcg/dose inhaler Inhale 1 Puff as instructed twice daily. RINSE AND GARGLE MOUTH WITH WATER AFTER EACH USE. albuterol HFA (PROVENTIL HFA, VENTOLIN HFA) 90 mcg/actuation inhaler Inhale 2 Puffs as instructed every 4 hours as needed for wheezing/shortness of breath. furosemide (LASIX) 20 mg tablet Take 1 tablet by mouth once daily. rosuvastatin (CRESTOR) 10 mg tablet Take 1 tablet by mouth daily at bedtime. pantoprazole DR (PROTONIX) 40 mg tablet Take 1 tablet by mouth once daily. famotidine (PEPCID) 20 mg tablet Take 1 tablet by mouth once daily. coenzyme Q10 (COENZYME Q-10) 100 mg cap capsule Take 1 capsule by mouth twice daily. Cholecalciferol, Vitamin D3, 25 mcg (1,000 unit) cap Take 1 capsule by mouth once daily. gabapentin (NEURONTIN) 300 mg capsule Take 1 capsule by mouth daily at bedtime for 90 days. dulaglutide (TRULICITY) 1.5 mg/0.5 mL pen injector Inject 1.5 mg subcutaneously one time a week. Inject once per week. Discard Pen After ondansetron orally disintegrating (ZOFRAN ODT) 4 mg disintegrating tablet Take 1 tablet by mouth every 8 hours as needed. blood sugar diagnostic (ONETOUCH VERIO TEST STRIPS) test strip Test blood sugar(s) 3 times daily. Dx: Type 2 DM - Controlled E11.9 Insulin: No lidocaine (LIDODERM) 5 % Apply 1 Patch as directed every 12 hours. Remove old patch prior to placing new patch. Location: back Fluorouracil (EFUDEX) 5 % cream Apply to affected areas twice daily for 2-4 weeks or until red blistering reaction occurs. fluticasone-salmeterol (ADVAIR, WIXELA) 250-50 mcg/dose Inhale 1 Puff as instructed twice daily. blood sugar diagnostic (BLOOD GLUCOSE TEST) test strip Test blood sugar(s) 3 times daily. Dx: Type 2 DM - Controlled E11.9 Insulin: No: True Matrix Lancets lancets Test blood sugar(s) 3 times daily. Dx: Type 2 DM - Controlled E11.9 Insulin: No True matrix clobetasol (TEMOVATE) 0.05 % cream apply to rash on legs and hands twice daily 5 days a week as needed. Apply twice daily as needed, up to 21 days per month. Avoid application to the face, armpits, groin. buPROPion XL (WELLBUTRIN XL) 150 mg 24 hr tablet Take 150 mg by mouth once daily. Blood-Glucose Meter monitoring kit Glucose Meter of Choice - Kit - Dx: Type 2 DM - Controlled E11.9 COMPOUNDED PRESCRIPTION Tens unit DX: DDD of neck and lumbar spine aspirin, enteric coated (ASPIRIN, ENTERIC COATED) 81 mg EC tablet Take 81 mg by mouth once daily. traZODone 100 mg tablet Take 100 mg by mouth daily at bedtime. One or two busPIRone 5 mg tablet Take 5 mg by mouth twice daily. No current facility-administered medications for this visit. Medications and allergies reviewed by this provider. SOCIAL HISTORY Social History Tobacco Use Smoking status: Every Day Packs/day: 0.50 Years: 35.00 Additional pack years: 0.00 Total pack years: 17.50 Types: Cigarettes Start date: 1975 Smokeless tobacco: Never Tobacco comments: Former one ppd smoker Vaping Use Vaping Use: Never used Substance Use Topics Alcohol use: Never Drug use: No REVIEW OF SYSTEMS All other reviewed and negative other than HPI. OBJECTIVE: BP 134/78 Pulse 79 Resp 18 Wt 65.9 kg (145 lb 3.2 oz) SpO2 98% BMI 27.21 kg/m . Vital signs reviewed by this provider. APPEARANCE Well appearing, alert, in no acute distress, well-hydrated, well nourished. Head: Mild TTP occipital. No obvious deformity, swelling, erythema or ecchymosis EYES PERRLA, conjunctiva and sclera normal. EARS External ears normal, canals clear NECK Supple, no adenopathy; thyroid symmetric, normal size, no bruits. FROM. Mild TTP base of neck- no obvious deformity, erythema, swelling or ecchymosis HEART RRR with normal S1 and S2, no murmurs, no gallops, no JVD appreciated LUNG clear to auscultation. No wheezes, rhonchi or rales Ribs: No TTP obvious deformity, ecchymosis or erythema EXTREMITIES Extremities normal, No deformities, No skin discoloration, and No edema NEURO Awake, alert and oriented x 3, Cranial nerves II-XII grossly intact, Reflexes symmetrical, Normal gait, No involuntary motions., and negative findings: speech normal, mental status intact, Romberg negative, muscle tone normal, muscle strength normal, rapid alternating movements normal, finger to nose normal, reflexes normal and symmetric, plantar response downgoing bilaterally. Patient unsteady with heel to toe. Normal tandem gait SKIN Skin color, texture, turgor normal, no suspicious rashes or lesions to exposed skin BP Controlled (<130/80) Never done Hepatitis B Vaccine(1 of 3 - Risk 3-dose series) Never done RSV Vaccine(1 - 1-dose 60+ series) Never done Colorectal Cancer Screening due on 12/24/2022 Pneumococcal Vaccine: 65+(2 - PCV) due on 08/08/2023 Shingrix Vaccine(2 of 2) due on 09/19/2023 Alpha-1 Antitrypsin Deficiency Screening due on 03/27/2024 HbA1C due on 10/31/2023 Urine Albumin:Creatinine Ratio due on 12/26/2023 Mammogram Screening due on 03/25/2024 Diabetic Foot Exam due on 03/27/2024 Dilated Retinal Exam due on 04/02/2024 LDL Cholesterol due on 05/01/2024 Annual PCP Team Chronic Disease Visit due on 09/10/2024 DTaP,Tdap,Td Vaccine(3 - Td or Tdap) due on 02/05/2033 Bone Density Screening Completed Spirometry Completed Influenza Vaccine Completed Advance Directive Discussion Completed Hepatitis C Screening Completed HPV Vaccine Aged Out Covid-19 Vaccine Discontinued ASSESSMENT/PLAN: 1. Syncope and collapse - ICD9: 780.2, ICD10: R55 (primary diagnosis) - possibly vasovagal - no red flag symptoms or exam findings - red flag symptoms discussed, verbalizes understanding - normal EKG and orthostatics in office today - CBC + DIFF - COMP METABOLIC PANEL - CT BRAIN WO IVCON - ECG COMPLETE - follow-up pending testing to ER with red flag symptoms 2. Neck pain - ICD9: 723.1, ICD10: M54.2 - no red flag symptoms or exam findings - red flag symptoms or exam findings - XR CERV OTHER 4V AP/LAT/OBL - follow-up if symptoms fail to improve 3. Rib pain - ICD9: 786.50, ICD10: R07.81 - no red flag symptoms or exam fidings - red flag symptoms discussed, verbalizes understanding- - may use heat or ice for 15 minutes at a time and OTC pain relievers as directed on - packaging - follow-up if symptoms fail to improve - XR RIBS/CHEST 3V AP RIB/OBLS/CXR RIGHT Sahra Moreno APRN.CNP Prescription instructions reviewed with patient as applicable. Patient advised if symptoms do not improve or if symptoms worsen sooner, to contact their primary care physician. Potential red flag symptoms discussed with the patient. Reviewed appropriate action plan to take if red flag symptoms occur. Patient agreeable to treatment plan. I spent a total of 45 minutes on the date of the service which included preparing to see the patient, [id number] patient care, completing clinical documentation, obtaining and/or reviewing separately obtained history, performing a medically appropriate examination, counseling and educating the patient/family/caregiver, and ordering medications, tests, or procedures. documented in this encounter [facility] 09-10-2023 Miscellaneous Notes Patient call in for fainting episode last night. Patient feels fine now. Nurse Triage assessment completed with protocol recommending for disposition of see PCP in 4 hours. Patient has appointment with Sahra. Care advice reviewed with patient, patient stated understanding. Patient advised to contact office or seek evaluation in urgent care or ER if symptoms persist or gets worse. Reason for Disposition [1] All other patients AND [2] now alert and feels fine (Exception: SIMPLE FAINT due to stress, pain, prolonged standing, or suddenly standing) Answer Assessment - Initial Assessment Questions 1. ONSET: Unsure how long, happened 11 pm last night. 2. CONTENT: Patient was sitting on toilet with trash can between knees due to nausea and vomiting. 3. MENTAL STATUS: Patient is alert and oriented x 3 4. TRIGGER: Patient was sitting on toilet with nausea and vomiting. 5. RECURRENT SYMPTOM: Did once a few years ago, went to ER, did a rectal exam, nothing happened. 6. INJURY: Hit head on moulding in the bathroom, no open areas and bruising. 7. CARDIAC SYMPTOMS: Denies Cardiac symptoms 8. NEUROLOGIC SYMPTOMS: Denies Neurological symptoms. 9. GI SYMPTOMS: Abdominal pain, vomited once (prior to passing out) 10. OTHER SYMPTOMS: Denies other symptoms. Protocols used: [id number] Pt states last pm ~11pm she took her meds then began to have stomach pain & nausea. Pt thought she was going to vomit so sat on the toilet with trash can between her knees. Pt states she passed out & woke up on the floor with her face in the the trash can. Pt had vomit all over her shirt. Pt reports she hit her head on moulding in the bathroom. Prior to this episode, pt denies chest pain, sob, dizziness or numbness. Pt reports her BP waqs 122/62 prior to passing out. Also states her blood sugars have been in the low 100s recently. Pt denies any sx today other than feeling sore & having discomfort between her shoulder blades in her back from falling. States her head is sore but no headache. Pt states she slept all night last night, only got up once to go from the cough to the bed. Appt was given today with Ne. Tori Crump LPN documented in this encounter [facility] 08-08-2023 Miscellaneous Notes Patient phones requesting refills as follows: Requested Prescriptions Pending Prescriptions Disp Refills montelukast (SINGULAIR) 10 mg tablet 90 tablet 1 Sig: Take 1 tablet by mouth daily at bedtime. TALIA 05/01/23 NOV 08/26/23 Please review and advise. Jeremiah Galindo LPN documented in this encounter [facility] 07-30-2023 Miscellaneous Notes Detailed message of information below left on pt's identified VM. Marly Pham RN Can stop omelsartan (benicar) and recheck NV BP 4 weeks Maciej Albert PA-C documented in this encounter [facility] 07-29-2023 Miscellaneous Notes Pt notified and scheduled She can stop olmesartan and recheck BP 4 weeks NV Maciej Albert PA-C Patient notified. Verbalized understanding. Patient questions if she is to still take her BP medication. She was told to continue until after stress test results, states BP has been running low. Please review and advise. ----- Message from Carolina Mirza PA-C sent at 07/28/2023 5:00 PM EDT ----- I imagine she knows, but let her know stress test showed no ischemia. ThanksMaciej PA-C documented in this encounter [facility] 07-28-2023 Note [facility] 07-28-2023 History of Presen t illness Narrative RADIOLOGY SERVICE PROGRESS NOTE SERVICE DATE: 07/28/2023 SERVICE TIME: 914 PATIENT IDENTITY VERIFICATION COMPLETED USING TWO (2) METHODS: Patient confirmed name and Date of verbally. ALLERGIES AND MEDICATIONS REVIEWED BY: Coty Campos RN PROCEDURE TYPE: NM STRESS: 0.4 mg of Lexiscan was administered IV at 0936 over 10 Seconds by Coty Campos RN Reversal agent used:none LOT [id number] EXP 02/01 IV SITE: IV palced by nuclear tecnologist POST EXAM PIV STATUS: Discontinued by House Fellow PATIENT DISCHARGED TO: Nuclear Medicine Department for post stress imaging A Diagnostic radioactive procedure has taken place, with no further precautions necessary other than routine body substance precautions. More information regarding radiation safety can be found using this link: [email or web address] SIGNATURE: Coty Campos RN PATIENT NAME:Юлия Prasad DATE: 07/28/23 TIME: 12:14 PM documented in this encounter [facility] 07-28-2023 Note [facility] 07-28-2023 History of Presen t illness Narrative RADIOLOGY SERVICE PROGRESS NOTE SERVICE DATE: 07/28/2023 SERVICE TIME: 08:14 AM PATIENT IDENTITY VERIFICATION COMPLETED USING TWO (2) STANDARD IDENTIFIERS: Name and Date of confirmed by patient verbally FALL SCREENING: Has the patient had 2 falls in the last year or 1 fall with injury or currently using an Ambulatory Assistive Device (Walker, Cane, Wheelchair, Crutches, etc.)? No PATIENT GENDER DATA: .female ALLERGIES: Reviewed and unchanged MEDICATIONS REVIEWED: Yes PATIENT RELEVANT IMPLANT DATA REVIEWED: Not Applicable CREATININE: Creatinine Date Value Ref Range Status 05/01/2023 0.91 0.58 - 0.96 mg/dL Final 02/17/2023 0.95 0.58 - 0.96 mg/dL Final 01/24/2023 0.99 (H) 0.58 - 0.96 mg/dL Final Estimated Glomerular Filtration Rate Date Value Ref Range Status 05/01/2023 70 >=60 mL/min/1.73m Final Comment: Estimated Glomerular Filtration Rate (eGFR) is calculated using the 2020 CKD-EPI creatinine equation. This equation utilizes serum creatinine, sex, and age as parameters. The creatinine assay has traceable calibration to isotope dilution-mass spectrometry. Refer to KDIGO guidelines for clinical interpretation. In patients with unstable renal function, e.g. those with acute kidney injury, the eGFR may not accurately reflect actual GFR. eGFR- Date Value Ref Range Status 09/13/2020 >60 Final P.O.C.T. RESULTS: N/A July 28, [address] PERFORMED: No IV SITE: Ambulatory: A peripheral IV was started in the Right antecubital site with a Angio cath: 22 gauge. POST EXAM PIV STATUS: Discontinued PROCEDURE TYPE: NM Stress: 12.3 mCi [id number] was administered IV for Rest Imaging at 08:20 by Corina De Souza. 33.8 mCi [id number] was administered IV for Stress Imaging at 09:36 by Corina De Souza. ADMINISTRATION TIME: PATIENT DISCHARGED TO: Ambulatory patient, left [place] department area. A Diagnostic radioactive procedure has taken place, with no further precautions necessary other than routine body substance precautions. More information regarding radiation safety can be found using this link: [email or web address] uclear%[email or web address] df SIGNATURE: RT Nasir(R) PATIENT NAME: Юлия Prasad DATE: July 28, 2023 TIME: 10:00 AM PAGER/CONTACT #: documented in this encounter [facility] 05-26-2023 Miscellaneous Notes MC message sent. Vesna Barboza MA Hard to put it together from notes but I think they held her olmesartan? Lets resume it and have her follow up with me after stress test. documented in this encounter [facility] 05-19-2023 Miscellaneous Notes TALIA: 02/28/22 Patient phones requesting refills as follows: Requested Prescriptions Pending Prescriptions Disp Refills fluticasone-salmeterol (ADVAIR DISKUS) 250-50 mcg/dose inhaler 60 Each 2 Sig: Inhale 1 Puff as instructed twice daily. RINSE AND GARGLE MOUTH WITH WATER AFTER EACH USE. albuterol HFA (PROVENTIL HFA, VENTOLIN HFA) 90 mcg/actuation inhaler 1 Each 2 Sig: Inhale 2 Puffs as instructed every 4 hours as needed for wheezing/shortness of breath. Please review and advise. Akosua Mistry LPN documented in this encounter [facility] 05-19-2023 Miscellaneous Notes Patient phones requesting refills as follows: Requested Prescriptions Pending Prescriptions Disp Refills citalopram (CELEXA) 40 mg tablet 90 tablet 1 Sig: Take 1 tablet by mouth once daily. TALIA-05/01/23 Labs-05/01/23 NOV-09/29/23 Please review and advise. Sirisha Man LPN documented in this encounter [facility] 05-19-2023 Miscellaneous Notes Patient phones requesting refills as follows: Requested Prescriptions Pending Prescriptions Disp Refills metFORMIN (GLUCOPHAGE) 500 mg tablet 90 tablet 5 Sig: Take 1 tablet by mouth three times daily. TALIA-05/01/23 Labs-05/01/23 NOV-09/29/23 Please review and advise. Sirisha Man LPN documented in this encounter [facility] 05-01-2023 Note [facility] 05-01-2023 History of Presen t illness Narrative 67 year old female with c/o 4 week f/u low BP, multiple symptoms Updated from last visit: Essential hypertension Pulmonary htn (hcc) Pad (peripheral artery disease) (hcc) Mixed hyperlipidemia Palpitations Cardiovascular interval hx: 08/08/2022 ZIO monitor on 13days: Patient HR of 50 -139 bpm, and avg HR of 72 bpm. Predominantly NSR. SVT x 3 runs: fastest interval lasting 6 beats with a max rate of 139 bpm, the longest lasting 4 beats with an avg rate of 98 bpm. Isolated SVEs were rare (<1.0%), SVE Couplets were rare (<1.0%), and no SVE Triplets were present. Isolated VEs were rare (<1.0%), and no VE Couplets or VE Triplets were present. 08/08/2022 nuclear stress not scheduled 02/06/2022 PVR ank/jackson/toe bilat: RIGHT SIDE JITENDRA: 1.19; TBI: 0.84, WNL at rest LEFT SIDE: JITENDRA: 1.19; TBI: 0.96, WNL at rest 04/02/2018 pharmacologic stress test nuclear imaging: [facility], Dr. Coy: Peak heart rate 93, 58% predicted MHR, peak blood pressure 180/84. Tracer uptake was uniform with no evidence of ischemia, gated Cardiolite study demonstrated myocardial thickening and inward wall motion, LVEF 79%. 09/28/16 echocardiogram: EF = 66 5%; mild pulmonary hypertension. Current meds: Rosuvastatin 10 mg daily at bedtime Olmesartan 20 mg 1/2 tablet daily ASA 81 mg coated daily Co Q10 100mg capsule daily Use of NTG: No Chest pain, arm, jaw pain, neck, or upper back pain suggestive of angina: No. SOB: No Dyspnea with exertion: Previously out of breathe after walking about 2 blocks: much better. orthopnea: No Cough : pollen is killing her, coughing up clear phlegm. Using Advair routinely, using rescue not so much tries to stay indoors. racing or irregular heartbeats: Yes palpitations: prior sx resolved. No palpitations syncopal sx: Yes, feels like she is going to pass out. Can occur when she is standing, or getting up to quickly. Dizziness: none, prior issues with stumbling, vertigo have resolved Headache: Headaches have resolved. Still sneezing a lot. Avoids going outside when. Has shoulder injection and started Melloxicam: resolved a lot of pain she was heaving with headache. Benadryl 50mg daily which alleviates most of the episodes, sometimes nauseated- takes Zofran. No vomiting. Flecks of light and pulsation in eyes in upper roberts have resolved. Unexplainable fatigue No Leg swelling: No Nausea: Was throwing up about twice a day, resolved. diaphoresis: only if sugar is high Heartburn: pantoprazole and pepcid helping a lot, just a little persistent. Quick eating chili cheese Fritos the day before. Claudication: No Smoking: Yes, about 1/2 PPD a day. Had quit for three days. Following Low cholesterol, high fiber diet? Yes If on statin: muscle aches? Yes, doesn't associate with medication If on statin: GI sx or diarrhea? No Additional history None. Last 3 Encounter BP Readings: Date: BP: 03/28/2023 104/60 03/27/2023 82/50 02/17/2023 122/64 Last 2 Encounter Wt Readings: Date: Wt: 03/28/2023 65.6 kg (144 lb 9.6 oz) 03/27/2023 65.8 kg (145 lb) Component Latest Ref Rng & Units 01/24/2022 12/26/2022 01/24/2023 02/17/2023 WBC 3.70 - 11.00 k/uL 9.07 9.31 8.21 RBC 3.90 - 5.20 m/uL 3.94 3.84 (L) 3.97 Hemoglobin 11.5 - 15.5 g/dL 12.4 11.9 12.4 Hematocrit 36.0 - 46.0 % 37.1 35.8 (L) 37.5 MCV 80.0 - 100.0 fL 94.2 93.2 94.5 MCH 26.0 - 34.0 pg 31.5 31.0 31.2 MCHC 30.5 - 36.0 g/dL 33.4 33.2 33.1 RDW-CV 11.5 - 15.0 % 13.0 13.6 13.2 Platelet Count 150 - 400 k/uL 264 270 272 MPV 9.0 - 12.7 fL 9.8 10.2 10.0 Neut% % 45.5 44.2 40.7 Abs Neut (ANC) 1.45 - 7.50 k/uL 4.12 4.11 3.34 Lymph% % 46.4 47.8 51.4 Abs Lymph 1.00 - 4.00 k/uL 4.21 (H) 4.45 (H) 4.22 (H) [place]% % 6.3 6.3 6.1 Abs [place] <0.87 k/uL 0.57 0.59 0.50 Eosin% % 1.2 1.0 1.3 Abs Eosin <0.46 k/uL 0.11 0.09 0.11 Baso% % 0.4 0.3 0.4 Abs Baso <0.11 k/uL 0.04 0.03 0.03 Immature Gran % % 0.2 0.4 0.1 IMMATURE GRANS (ABS) <0.10 k/uL <0.03 0.04 <0.03 NRBC /100 WBC 0.0 0.0 0.0 Absolute nRBC <0.01 k/uL <0.01 <0.01 <0.01 DTYPE Auto Auto Auto Protein, Total 6.3 - 8.0 g/dL 8.6 (H) 8.5 (H) 8.4 (H) Albumin 3.9 - 4.9 g/dL 4.9 4.7 4.9 Calcium 8.5 - 10.2 mg/dL 10.4 (H) 10.3 (H) 10.3 (H) Bilirubin, Total 0.2 - 1.3 mg/dL 0.3 0.4 0.3 Alkaline Phosphatase 34 - 123 U/L 26 (L) 27 (L) 27 (L) AST 13 - 35 U/L 24 21 23 ALT 7 - 38 U/L 20 20 20 Glucose 74 - 99 mg/dL 91 163 (H) 90 BUN 7 - 21 mg/dL 13 12 9 Creatinine 0.58 - 0.96 mg/dL 0.97 (H) 0.99 (H) 0.95 Sodium 136 - 144 mmol/L 137 134 (L) 136 Potassium 3.7 - 5.1 mmol/L 4.6 4.6 5.1 Chloride 97 - 105 mmol/L 97 96 (L) 96 (L) CO2 22 - 30 mmol/L 26 25 25 Anion Gap 9 - 18 mmol/L 14 13 15 eGFR >=60 mL/min/1.73m 65 63 67 Cholesterol, Total <200 mg/dL 137 114 Triglyceride <150 mg/dL 196 (H) 130 HDL Cholesterol >39 mg/dL 49 51 Non HDL Cholesterol <130 mg/dL 88 63 Fasting Time hrs 12 13 VLDL Cholesterol <30 mg/dL 39 (H) 26 TC:HDL Ratio <5.10 2.80 2.24 LDL Cholesterol <100 mg/dL 49 37 LDL:HDL Ratio <2.54 1.00 0.73 N/V/D issues resolved from last visit: 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 Hyperlipidemia Lung nodules PAD (peripheral artery disease) (HCC) 03/10/2017 02/06/2022 PVR ank/jackson/toe bilat: RIGHT SIDE JITENDRA: 1.19; TBI: 0.84, WNL at rest LEFT SIDE: JITENDRA: 1.19; TBI: 0.96, WNL at rest Pulmonary HTN (HCC) 12/08/2017 mild Squamous cell skin cancer, nasal tip 06/24/2016 Tobacco abuse 03/28/2017 PAST SURGICAL HISTORY Procedure Laterality Date ADDTL NECK SPINE FUSION 09/2004 CHOLECYSTECTOMY 2000 COLONOSCOPY 1982 COLONOSCOPY FLX DX W/COLLJ SPEC WHEN PFRMD 09/01/12 COLONOSCOPY FLX DX W/COLLJ SPEC WHEN PFRMD Done in [place] unable to obtain COLONOSCOPY FLX DX W/COLLJ SPEC WHEN PFRMD 11/17/2013 Colonoscopy COLONOSCOPY FLX DX W/COLLJ SPEC WHEN PFRMD 12/24/2017 Colonoscopy ESOPHAGOGASTRODUODENOSCOPY TRANSORAL DIAGNOSTIC 06/04/2013 EGD ESOPHAGOGASTRODUODENOSCOPY TRANSORAL DIAGNOSTIC 05/17/15 EGD ESOPHAGOGASTRODUODENOSCOPY TRANSORAL DIAGNOSTIC 12/24/2017 EGD HYSTERECTOMY HX 1984 Pelvic pain & DUB NEUROPLASTY &/TRANSPOS MEDIAN NRV CARPAL TUNNE Bilateral 08/27/2018 Bilateral carpal tunnel release OOPHORECTOMY PARTIAL/TOTAL UNI/BI 1985 Bilateral PAST SURGICAL HISTORY OF removed tissue nose for SCC PAST SURGICAL HISTORY OF 10/13/2017 Excision nasal mass, Dr Marbin Harris REMOVE TONSIL AND ADENOI UNDER AGE 14 SLING OPER STRES INCONTINENCE 2001 Social History Tobacco Use Smoking status: Every Day Packs/day: 0.50 Years: 35.00 Pack years: 17.50 Types: Cigarettes Start date: 1975 Smokeless tobacco: Never Tobacco comments: Former one ppd smoker Vaping Use Vaping Use: Never used Substance Use Topics Alcohol use: Never Drug use: No ACTIVE PROBLEM LIST Atypical Nevus of Back Actinic Keratosis Actinic Skin Damage Melanocytic Nevi of Face Dermatofibroma of Right Thigh Dermatofibroma of Forearm Other Seborrheic Keratosis Solar Lentigines Degeneration of Lumbar Or Lumbosacral Intervertebral Disc Gerd (Gastroesophageal Reflux Disease) Depression Type 2 Diabetes Mellitus With Diabetic Neuropathy (Hcc) Cervicalgia Squamous Cell Skin Cancer, Nasal Tip Mixed Hyperlipidemia Chronic Obstructive Pulmonary Disease (Hcc) Tobacco Abuse Fh: Colon Polyps Dysphagia Back Pain Pulmonary Htn (Hcc) Carpal Tunnel Syndrome On Both Sides Renal Cyst Essential Hypertension Osteopenia After Menopause Major Depressive Disorder, Recurrent Severe Without Psychotic Features (Hcc) Current Outpatient Medications Medication Sig Dispense Refill meloxicam (MOBIC) 15 mg tablet Take 1 tablet by mouth once daily. 30 tablet 1 furosemide (LASIX) 20 mg tablet Take 1 tablet by mouth once daily. 30 tablet 5 rosuvastatin (CRESTOR) 10 mg tablet Take 1 tablet by mouth daily at bedtime. [address] (PROTONIX) 40 mg tablet Take 1 tablet by mouth once daily. 30 tablet 5 famotidine (PEPCID) 20 mg tablet Take 1 tablet by mouth once daily. 30 tablet 11 coenzyme Q10 (COENZYME Q-10) 100 mg cap capsule Take 1 capsule by mouth twice daily. 60 capsule 11 Cholecalciferol, Vitamin D3, 25 mcg (1,000 unit) cap Take 1 capsule by mouth once daily. 90 capsule 3 montelukast (SINGULAIR) 10 mg tablet Take 1 tablet by mouth daily at bedtime. 90 tablet 1 citalopram (CELEXA) 40 mg tablet Take 1 tablet by mouth once daily. 90 tablet 1 gabapentin (NEURONTIN) 300 mg capsule Take 1 capsule by mouth daily at bedtime for 90 days. 90 capsule 2 dulaglutide (TRULICITY) 1.5 mg/0.5 mL pen injector Inject 1.5 mg subcutaneously one time a week. Inject once per week. Discard Pen After 12 Each 3 metFORMIN (GLUCOPHAGE) 500 mg tablet Take 1 tablet by mouth three times daily. 90 tablet 5 ondansetron orally disintegrating (ZOFRAN ODT) 4 mg disintegrating tablet Take 1 tablet by mouth every 8 hours as needed. 30 tablet 5 fluticasone-salmeterol (ADVAIR DISKUS) 250-50 mcg/dose inhaler Inhale 1 Puff as instructed twice daily. RINSE AND GARGLE MOUTH WITH WATER AFTER EACH USE. 1 Each 11 albuterol HFA (PROVENTIL HFA, VENTOLIN HFA) 90 mcg/actuation inhaler Inhale 2 Puffs as instructed every 4 hours as needed for wheezing/shortness of breath. 1 Inhaler 11 blood sugar diagnostic (ONETOUCH VERIO TEST STRIPS) test strip Test blood sugar(s) 3 times daily. Dx: Type 2 DM - Controlled E11.9 Insulin: No 50 Strip 11 lidocaine (LIDODERM) 5 % Apply 1 Patch as directed every 12 hours. Remove old patch prior to placing new patch. Location: back 15 Patch 0 Fluorouracil (EFUDEX) 5 % cream Apply to affected areas twice daily for 2-4 weeks or until red blistering reaction occurs. (Patient not taking: Reported on 04/28/2023) 40 g 0 fluticasone-salmeterol (ADVAIR, WIXELA) 250-50 mcg/dose Inhale 1 Puff as instructed twice daily. 60 Each 1 blood sugar diagnostic (BLOOD GLUCOSE TEST) test strip Test blood sugar(s) 3 times daily. Dx: Type 2 DM - Controlled E11.9 Insulin: No: True Matrix 150 Strip 11 Lancets lancets Test blood sugar(s) 3 times daily. Dx: Type 2 DM - Controlled E11.9 Insulin: No True matrix 100 Each 11 clobetasol (TEMOVATE) 0.05 % cream apply to rash on legs and hands twice daily 5 days a week as needed. Apply twice daily as needed, up to 21 days per month. Avoid application to the face, armpits, groin. (Patient not taking: Reported on 04/28/2023) 45 g 1 buPROPion XL (WELLBUTRIN XL) 150 mg 24 hr tablet Take 150 mg by mouth once daily. Blood-Glucose Meter monitoring kit Glucose Meter of Choice - Kit - Dx: Type 2 DM - Controlled E11.9 1 Each 0 COMPOUNDED PRESCRIPTION Tens unit DX: DDD of neck and lumbar spine 1 Each 0 aspirin, enteric coated (ASPIRIN, ENTERIC COATED) 81 mg EC tablet Take 81 mg by mouth once daily. traZODone 100 mg tablet Take 100 mg by mouth daily at bedtime. One or two busPIRone 5 mg tablet Take 5 mg by mouth twice daily. No current facility-administered medications for this visit. COLORECTAL CANCER SCREENING due on 12/24/2022 EXAM: BP 126/68 Pulse (!) 49 Resp 16 Wt 66.2 kg (146 lb) SpO2 97% BMI 27.36 kg/m Pleasant adult woman in no acute distress. Alert and oriented all spheres. Normal affect and cognition. Speech normal. No deficits to learning or comprehension. Skin warm, dry, pink to lips and nailbeds. Normal turgor. Respirations regular and unlabored. HEENT: NCAT. No scleral icterus or conjunctival injection. TM's clear. Nose and oropharynx free from injection or lesion. Oral membranes moist and pink. No cervical lymph nodes. Thyroid non-tender, no masses, or enlargement. Carotids pulses 2+/4+ without bruits. No JVD with HOB at 30 degrees. Chest is normal shape. Lungs are clear to all roberts with good air exchange through out. HRRR without murmur or gallop. No lifts, heaves, or rubs. Extrem: no clubbing or cyanosis. Edema: none. Extremities are warm and pink with prompt capillary refill. ASSESSMENT/PLAN: 1. Essential hypertension - ICD9: 401.9, ICD10: I10 - Controlled - Recommend home blood pressure monitoring, to bring results to next visit - Encouraged sodium restriction, DASH or Mediterranean diet - Recommend regular aerobic exercise Complete labs. Carolina Mirza PA-C documented in this encounter [facility] 04-28-2023 Note [facility] 04-28-2023 History of Presen t illness Narrative Associated Order(s): Large Joint Arthro/Inj: R subacromial bursa Post-Procedure Diagnose(s): Calcific tendonitis of right shoulder; Shoulder impingement Carlos Denney MD Department of Orthopaedics Orthopaedics [address] [facility] [address] Dept: [phone] Dept April 28, 2023 CHIEF COMPLAINT: Established Patient and Pain of the Right Shoulder HPI Patient presents for right shoulder pain, had X-Ray 03/27/23 that showed degenerative changes and rotator cuff calcific tendonitis. Pain is always there, just changes in intensity, gets worse with certain position changes of arm. Denies any injury to the shoulder. AMB ROOMING INTAKE FLOWSHEET DATA Pain Pain Level: 5 Pain Location: Shoulder-Right Description: Aching Duration Amount of Time: 1 Duration Units: Years Frequency: Continuous Intervention/Comfort measure: Relaxation, Reposition Patient presents with: Right Shoulder - Established Patient, Pain ASSESSMENT: M25.819 Shoulder impingement (primary encounter diagnosis) M75.31 Calcific tendonitis of right shoulder M25.511 Sternoclavicular joint pain, right PLAN: We will go with a cortisone injection for her right shoulder. Anti-inflammatory. We may need to get further imaging as she has had a couple of injections now for the subacromial area, and the SC joint would have to be further evaluated if persistent symptoms Ms. Юлия Prasad was advised as to contrast therapies and/or to take analgesics/anti-inflammatories as needed and all contraindications were reviewed. OBJECTIVE: Ms. Юлия Prasad is a pleasant 67 year old in no apparent distress. Gen:There were no vitals taken for this visit. nl development, non obese, no deformities ENT: Normocephalic, normal hearing, moist mucosa CV: Pulses:Radial= 2+ and symmetric, capillary refill < 2 secs, no peripheral edema/varicosities Skin: no rash, bruising or lesions. Good turgor. Psych: cooperative and appropriate, alert and oriented x 3, good mood and affect. Musculoskeletal: Persistent impingement symptoms on the right. Mild diminished motion with forward elevation and external rotation limited by some discomfort at the location as well. She does have some fullness in the right SC joint compared to the contralateral side. I cannot decipher any specific instability or motion that she is tender in the area on palpation. Large Joint Arthro/Inj: R subacromial bursa Informed Consent Consent Obtained: Verbal [place] Protocol A moment to CARE was completed. SIGN IN Sign in communication not applicable due to emergent procedure. Personnel directly involved with the procedure wore the appropriate PPE. Special Equipment: N/A Patient/Surrogate Stated/Verified: Patient name, Date of , Relevant allergies and Intended procedure TIME OUT Intended patient and procedure match the source document(s). Consent documented and matches the intended procedure. Relevant labs, photos, and/or imaging studies have been reviewed. Correct side/site marked and visible. Medications required for procedure verified. No fire risk assessment and interventions applicable. No implant(s) inserted. 04/28/2023 3:38 PM The procedure site was prepped in the usual sterile fashion. Site: R subacromial bursa Medications: 6 mg betamethasone acetate-betamethasone sodium phosphate 6 mg/mL Anesthetics: 4 mL lidocaine (PF) 10 mg/mL (1 %) Outcome: Tolerated well, no immediate complications Post-injection instructions were reviewed with the patient and the patient voiced understanding of these instructions. SIGN OUT All instruments, equipment, possible retained foreign bodies accounted for. Imaging: IMPRESSION: Degenerative changes and rotator cuff calcific tendinosis. No acute abnormality It Security Manager: TRI Transcribe Date/Time: Mar 28 2023 9:55P Dictated by : ALONSO HERNANDEZ MD This examination was interpreted and the report reviewed and electronically signed by: ALONSO HERNANDEZ MD on Mar 28 2023 9:56PM EST Results-Findings * * *Final Report* * * DATE OF EXAM: Mar 27 2023 2:22PM [id number] - XR SHLDR >/=3V AP/MANUEL AP/OTHR RT / PROCEDURE REASON: multiple diagnoses * * * * Physician Interpretation * * * * PROCEDURE: Right shoulder INDICATION: Chronic right shoulder pain .Right shoulder pain for several months. Pain began after making bed and pulling hard on sheets to tuck them under large mattress. Shoulder feels like it is popping with certain movements. TECHNIQUE: XR SHLDR >/=3V AP/MANUEL AP/OTHR RT COMPARISON: 06/10/2022 FINDINGS: Calcifications again noted in the expected location of the distal rotator cuff consistent with calcific tendinosis. Glenohumeral and acromioclavicular joint spaces are maintained. There is moderate AC joint and minimal glenohumeral joint marginal spur formation. Acromiohumeral interval is maintained. Postoperative change in the lower cervical spine. Supporting Subjective Information Below: Past Surgical History: PAST SURGICAL HISTORY Procedure Laterality Date ADDTL NECK SPINE FUSION 09/2004 CHOLECYSTECTOMY 2000 COLONOSCOPY 1982 COLONOSCOPY FLX DX W/COLLJ SPEC WHEN PFRMD 09/01/12 COLONOSCOPY FLX DX W/COLLJ SPEC WHEN PFRMD Done in [place] unable to obtain COLONOSCOPY FLX DX W/COLLJ SPEC WHEN PFRMD 11/17/2013 Colonoscopy COLONOSCOPY FLX DX W/COLLJ SPEC WHEN PFRMD 12/24/2017 Colonoscopy ESOPHAGOGASTRODUODENOSCOPY TRANSORAL DIAGNOSTIC 06/04/2013 EGD ESOPHAGOGASTRODUODENOSCOPY TRANSORAL DIAGNOSTIC 05/17/15 EGD ESOPHAGOGASTRODUODENOSCOPY TRANSORAL DIAGNOSTIC 12/24/2017 EGD HYSTERECTOMY HX 1984 Pelvic pain & DUB NEUROPLASTY &/TRANSPOS MEDIAN NRV CARPAL TUNNE Bilateral 08/27/2018 Bilateral carpal tunnel release OOPHORECTOMY PARTIAL/TOTAL UNI/BI 1985 Bilateral PAST SURGICAL HISTORY OF removed tissue nose for SCC PAST SURGICAL HISTORY OF 10/13/2017 Excision nasal mass, Dr Marbin Harris REMOVE TONSIL AND ADENOI UNDER AGE 14 SLING OPER STRES INCONTINENCE 2001 Medications: Current Outpatient Medications Medication Sig furosemide (LASIX) 20 mg tablet Take 1 tablet by mouth once daily. rosuvastatin (CRESTOR) 10 mg tablet Take 1 tablet by mouth daily at bedtime. pantoprazole DR (PROTONIX) 40 mg tablet Take 1 tablet by mouth once daily. famotidine (PEPCID) 20 mg tablet Take 1 tablet by mouth once daily. coenzyme Q10 (COENZYME Q-10) 100 mg cap capsule Take 1 capsule by mouth twice daily. Cholecalciferol, Vitamin D3, 25 mcg (1,000 unit) cap Take 1 capsule by mouth once daily. montelukast (SINGULAIR) 10 mg tablet Take 1 tablet by mouth daily at bedtime. citalopram (CELEXA) 40 mg tablet Take 1 tablet by mouth once daily. gabapentin (NEURONTIN) 300 mg capsule Take 1 capsule by mouth daily at bedtime for 90 days. dulaglutide (TRULICITY) 1.5 mg/0.5 mL pen injector Inject 1.5 mg subcutaneously one time a week. Inject once per week. Discard Pen After metFORMIN (GLUCOPHAGE) 500 mg tablet Take 1 tablet by mouth three times daily. ondansetron orally disintegrating (ZOFRAN ODT) 4 mg disintegrating tablet Take 1 tablet by mouth every 8 hours as needed. fluticasone-salmeterol (ADVAIR DISKUS) 250-50 mcg/dose inhaler Inhale 1 Puff as instructed twice daily. RINSE AND GARGLE MOUTH WITH WATER AFTER EACH USE. albuterol HFA (PROVENTIL HFA, VENTOLIN HFA) 90 mcg/actuation inhaler Inhale 2 Puffs as instructed every 4 hours as needed for wheezing/shortness of breath. blood sugar diagnostic (ONETOUCH VERIO TEST STRIPS) test strip Test blood sugar(s) 3 times daily. Dx: Type 2 DM - Controlled E11.9 Insulin: No lidocaine (LIDODERM) 5 % Apply 1 Patch as directed every 12 hours. Remove old patch prior to placing new patch. Location: back blood sugar diagnostic (BLOOD GLUCOSE TEST) test strip Test blood sugar(s) 3 times daily. Dx: Type 2 DM - Controlled E11.9 Insulin: No: True Matrix Lancets lancets Test blood sugar(s) 3 times daily. Dx: Type 2 DM - Controlled E11.9 Insulin: No True matrix buPROPion XL (WELLBUTRIN XL) 150 mg 24 hr tablet Take 150 mg by mouth once daily. Blood-Glucose Meter monitoring kit Glucose Meter of Choice - Kit - Dx: Type 2 DM - Controlled E11.9 COMPOUNDED PRESCRIPTION Tens unit DX: DDD of neck and lumbar spine aspirin, enteric coated (ASPIRIN, ENTERIC COATED) 81 mg EC tablet Take 81 mg by mouth once daily. traZODone 100 mg tablet Take 100 mg by mouth daily at bedtime. One or two busPIRone 5 mg tablet Take 5 mg by mouth twice daily. Fluorouracil (EFUDEX) 5 % cream Apply to affected areas twice daily for 2-4 weeks or until red blistering reaction occurs. (Patient not taking: Reported on 04/28/2023) fluticasone-salmeterol (ADVAIR, WIXELA) 250-50 mcg/dose Inhale 1 Puff as instructed twice daily. clobetasol (TEMOVATE) 0.05 % cream apply to rash on legs and hands twice daily 5 days a week as needed. Apply twice daily as needed, up to 21 days per month. Avoid application to the face, armpits, groin. (Patient not taking: Reported on 04/28/2023) No current facility-administered medications for this visit. Allergies: Metronidazole, Adhesive, Augmentin [Amoxicillin-Pot Clavulanate], Ciprofloxacin, Clindamycin, Penicillins, Prozac [Fluoxetine Hcl], and Sulfa Dyne ROS: General (negative for fatigue, malaise, weight loss/gain) HEENT (negative for headache, earache, recent vision changes, sinus pain, sore throat) Respiratory (no recent shortness of breath, hemoptysis) CV (negative for chest tightness, palpitations) Musculoskeletal (see HPI) Psych (no depression, anxiety) Carlos Denney MD documented in this encounter [facility] 04-18-2023 Miscellaneous Notes Patient has been identified by name and date of : Yes Requested Prescriptions Pending Prescriptions Disp Refills furosemide (LASIX) 20 mg tablet 30 tablet 5 Sig: Take 1 tablet by mouth once daily. rosuvastatin (CRESTOR) 10 mg tablet 30 tablet 5 Sig: Take 1 tablet by mouth daily at bedtime. pantoprazole DR (PROTONIX) 40 mg tablet 30 tablet 5 Sig: Take 1 tablet by mouth once daily. 05/01/23 RX INSTRUCTIONS: Patient aware RX will be sent to pharmacy. No need to notify patient. Mariana Luna Ma documented in this encounter [facility] 04-02-2023 Note [facility] 03-28-2023 Note [facility] 03-27-2023 Note [facility] 03-27-2023 Note [facility] 03-25-2023 Note [facility] 03-25-2023 History of Presen t illness Narrative Radiology Service Progress Note PATIENT NAME: Юлия Prasad DATE OF SERVICE: March 25, 2023 TIME: 2:17 PM PATIENT IDENTITY VERIFICATION COMPLETED USING TWO (2) IDENTIFIERS: Name and Date of confirmed by patient verbally. FALL SCREENING: Has the patient had 2 falls in the last year or 1 fall with injury or currently using an Ambulatory Assistive Device (Walker, Cane, Wheelchair, Crutches, etc.)? No PATIENT GENDER DATA: Female. status: : No status: NO. PATIENT RELEVANT IMPLANT DATA REVIEWED: Not Applicable RADIOLOGY DEPARTMENT: Mammography PERIPHERAL IV DATA: Not applicable SIGNED BY: RT Octavio(Francoise) March 25, 2023 2:17 PM documented in this encounter [facility] 03-21-2023 Miscellaneous Notes Patient has been identified by name and date of : Yes Requested Prescriptions Pending Prescriptions Disp Refills coenzyme Q10 (COENZYME Q-10) 100 mg cap capsule 60 capsule 11 Sig: Take 1 capsule by mouth twice daily. RX INSTRUCTIONS: Patient aware RX will be sent to pharmacy. No need to notify patient. Silvia Kerr MA Talia: 02/2023 Nov: 03/2023 Last refill; 02/2022 documented in this encounter [facility] 02-27-2023 Note [facility] 02-27-2023 History of Presen t illness Narrative Radiology Service Progress Note PATIENT NAME: Юлия Prasad DATE OF SERVICE: February 27, 2023 TIME: 11:24 AM PATIENT IDENTITY VERIFICATION COMPLETED USING TWO (2) IDENTIFIERS: Name and Date of confirmed by patient verbally. FALL SCREENING: Has the patient had 2 falls in the last year or 1 fall with injury or currently using an Ambulatory Assistive Device (Walker, Cane, Wheelchair, Crutches, etc.)? No PATIENT GENDER DATA: Female. status: : No status: NO. PATIENT RELEVANT IMPLANT DATA REVIEWED: Not Applicable RADIOLOGY DEPARTMENT: Ultrasound PERIPHERAL IV DATA: Not applicable SIGNED BY: Lorin Ching RDMS February 27, 2023 11:24 AM documented in this encounter [facility] 02-21-2023 Miscellaneous Notes Patient was notified that finger is looking better so aware can stop antibiotic and will call in with update Friday Barbie Gonsalez Ma How is the finger. If looking and feeling better, would hold the antibiotic, call if worsens and let me know on Friday how doing. Pt calls office with update. She states she was into see PCP on 02/17, started on Keflex. Since Friday she has had diarrhea- runny/slimy, ranges from light to darker in color. No blood in stool. No abd pain, but stomach is gurgling . Pt states she has also started feeling itchy all over but no visible rash other than on her bilateral wrists. She benadryl at home but has not taken any yet. She has not taken any Immodium either. She wanted to ask provider opinion before taking anything. Please advise. Jeremiah Galindo LPN documented in this encounter [facility] 02-21-2023 Miscellaneous Notes Called PT LVM to call back and schedule US ABD RUQ. Erica BELLE Patient informed and verbalized understanding. Sending to schedulers to help assist in scheduling US. Amanda Rose Results are overall ok. Lipase or pancreas enzymes are still very minimally up. Check ruq us to be on safe side documented in this encounter [facility] 02-20-2023 Note HNO ID: [id number] Author: Carolina Mirza PA-C Service: ? Author Type: Physician Child Welfare Consultant Type: Progress Notes Filed: 02/20/2023 7:29 PM Note Text: Dr. Petersen addressed. Carolina Mirza PA-C [facility] 02-17-2023 Note [facility] 02-17-2023 History of Presen t illness Narrative Patient presents with: Suture Removal: Right middle finger HPI: Patient presents today for office visit for ER follow up. HOSPITAL/ER FOLLOW UP: Reason for visit: laceration to right middle Which facility: [facility] Date of visit: 02/05/23 Diagnosis: laceration Treatment given: tetanus updated, 3 sutures Current symptoms: healing well. Area is sore to touch. Slightly pink where the stiches are. No red streaks. No swelling. Normal range of motion. MEDICATIONS: Current Outpatient Medications Medication Sig Cholecalciferol, Vitamin D3, 25 mcg (1,000 unit) cap Take 1 capsule by mouth once daily. montelukast (SINGULAIR) 10 mg tablet Take 1 tablet by mouth daily at bedtime. citalopram (CELEXA) 40 mg tablet Take 1 tablet by mouth once daily. olmesartan (BENICAR) 20 mg tablet Take 0.5 tablets by mouth once daily. gabapentin (NEURONTIN) 300 mg capsule Take 1 capsule by mouth daily at bedtime for 90 days. dulaglutide (TRULICITY) 1.5 mg/0.5 mL pen injector Inject 1.5 mg subcutaneously one time a week. Inject once per week. Discard Pen After metFORMIN (GLUCOPHAGE) 500 mg tablet Take 1 tablet by mouth three times daily. ondansetron orally disintegrating (ZOFRAN ODT) 4 mg disintegrating tablet Take 1 tablet by mouth every 8 hours as needed. furosemide (LASIX) 20 mg tablet Take 1 tablet by mouth once daily. rosuvastatin (CRESTOR) 10 mg tablet Take 1 tablet by mouth daily at bedtime. pantoprazole DR (PROTONIX) 40 mg tablet Take 1 tablet by mouth once daily. coenzyme Q10 (COENZYME Q-10) 100 mg cap capsule Take 1 capsule by mouth twice daily. fluticasone-salmeterol (ADVAIR DISKUS) 250-50 mcg/dose inhaler Inhale 1 Puff as instructed twice daily. RINSE AND GARGLE MOUTH WITH WATER AFTER EACH USE. albuterol HFA (PROVENTIL HFA, VENTOLIN HFA) 90 mcg/actuation inhaler Inhale 2 Puffs as instructed every 4 hours as needed for wheezing/shortness of breath. blood sugar diagnostic (ONETOUCH VERIO TEST STRIPS) test strip Test blood sugar(s) 3 times daily. Dx: Type 2 DM - Controlled E11.9 Insulin: No lidocaine (LIDODERM) 5 % Apply 1 Patch as directed every 12 hours. Remove old patch prior to placing new patch. Location: back Fluorouracil (EFUDEX) 5 % cream Apply to affected areas twice daily for 2-4 weeks or until red blistering reaction occurs. fluticasone-salmeterol (ADVAIR, WIXELA) 250-50 mcg/dose Inhale 1 Puff as instructed twice daily. blood sugar diagnostic (BLOOD GLUCOSE TEST) test strip Test blood sugar(s) 3 times daily. Dx: Type 2 DM - Controlled E11.9 Insulin: No: True Matrix Lancets lancets Test blood sugar(s) 3 times daily. Dx: Type 2 DM - Controlled E11.9 Insulin: No True matrix clobetasol (TEMOVATE) 0.05 % cream apply to rash on legs and hands twice daily 5 days a week as needed. Apply twice daily as needed, up to 21 days per month. Avoid application to the face, armpits, groin. buPROPion XL (WELLBUTRIN XL) 150 mg 24 hr tablet Take 150 mg by mouth once daily. Blood-Glucose Meter monitoring kit Glucose Meter of Choice - Kit - Dx: Type 2 DM - Controlled E11.9 COMPOUNDED PRESCRIPTION Tens unit DX: DDD of neck and lumbar spine aspirin, enteric coated (ASPIRIN, ENTERIC COATED) 81 mg EC tablet Take 81 mg by mouth once daily. traZODone 100 mg tablet Take 100 mg by mouth daily at bedtime. One or two busPIRone 5 mg tablet Take 5 mg by mouth twice daily. Current Facility-Administered Medications Medication Dose Route Frequency Aminolevulinic Acid HCl 20 % soln 1 Each 1 Each TOPICAL PRN ALLERGIES: ALLERGIES Allergen Reactions Metronidazole Anaphylaxis Adhesive Other: See Comments redness with bandaids Augmentin [Amoxicil* Other: See Comments Thrush/yeast infection Ciprofloxacin Rash Clindamycin Swelling throat swelling Penicillins Intolerance Yeast infections Prozac [Fluoxetine * Rash Sulfa Dyne Rash 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 Hyperlipidemia Lung nodules Pulmonary HTN (HCC) 12/08/2017 mild Squamous cell skin cancer, nasal tip 06/24/2016 Tobacco abuse 03/28/2017 PAST SURGICAL HISTORY Procedure Laterality Date ADDTL NECK SPINE FUSION 09/2004 CHOLECYSTECTOMY 2000 COLONOSCOPY 1982 COLONOSCOPY FLX DX W/COLLJ SPEC WHEN PFRMD 09/01/12 COLONOSCOPY FLX DX W/COLLJ SPEC WHEN PFRMD Done in [place] unable to obtain COLONOSCOPY FLX DX W/COLLJ SPEC WHEN PFRMD 11/17/2013 Colonoscopy COLONOSCOPY FLX DX W/COLLJ SPEC WHEN PFRMD 12/24/2017 Colonoscopy ESOPHAGOGASTRODUODENOSCOPY TRANSORAL DIAGNOSTIC 06/04/2013 EGD ESOPHAGOGASTRODUODENOSCOPY TRANSORAL DIAGNOSTIC 05/17/15 EGD ESOPHAGOGASTRODUODENOSCOPY TRANSORAL DIAGNOSTIC 12/24/2017 EGD HYSTERECTOMY HX 1984 Pelvic pain & DUB NEUROPLASTY &/TRANSPOS MEDIAN NRV CARPAL TUNNE Bilateral 08/27/2018 Bilateral carpal tunnel release OOPHORECTOMY PARTIAL/TOTAL UNI/BI 1985 Bilateral PAST SURGICAL HISTORY OF removed tissue nose for SCC PAST SURGICAL HISTORY OF 10/13/2017 Excision nasal mass, Dr Marbin Harris REMOVE TONSIL AND ADENOI UNDER AGE 14 SLING OPER STRES INCONTINENCE 2001 FAMILY HISTORY Problem Relation Age of Onset Colon Polyps Mother COPD Mother Colon Cancer Mother Colon Polyps Father Heart Father Colon Polyps Sister Hypertension Sister Colon Polyps Brother other (Parkinsonism [Other]) Brother Colon Polyps Brother Ischemic Heart Disease Brother Diabetes Maternal Grandfather Social History Tobacco Use Smoking status: Every Day Packs/day: 0.50 Years: 35.00 Pack years: 17.50 Types: Cigarettes Start date: 1975 Smokeless tobacco: Never Tobacco comments: Former one ppd smoker Substance Use Topics Alcohol use: Never Drug use: No Reviewed current medications, allergies, past medical history, surgical history, family history and social history today. REVIEW OF SYSTEMS All other reviewed and negative other than HPI. VITALS: BP 122/64 Pulse 74 Wt 66.7 kg (147 lb) SpO2 98% BMI 27.78 kg/m Last 4 Encounter Wt Readings: Date: Wt: 12/26/2022 67.1 kg (148 lb) 08/08/2022 67.1 kg (148 lb) 06/12/2022 68.3 kg (150 lb 9.6 oz) 03/12/2022 69.9 kg (154 lb) PHYSICAL EXAMINATION: General appearance: Well appearing, alert, in no acute distress, well-hydrated, well nourished. Skin: three simple sutures. Removed without difficulty. Normal range of motion. Slightly warm and red. Steri strips applied. Discussed wound care. ASSESSMENT/PLAN: 1. Laceration of right middle finger without foreign body without damage to nail, subsequent encounter - ICD9: V58.89, ICD10: S61.212D - as above. Discussed wound care. Keflex x 7 days for possible very early infection. Discussed risks and benefits of new medication with the patient. Advised them to call if any side effects or questions. Red flags for re-assessment reviewed with patient in detail. Call if symptoms worsen at all or if not better in one to two weeks Reviewed diagnosis and treatment options in detail. Questions were answered. Patient expressed understanding of treatment plan. Bebeto Petersen MD documented in this encounter [facility] 01-27-2023 Miscellaneous Notes Pt notified. She verbalized understanding. Jeremiah Galindo LPN Ok. Call if worsens. Recheck labs in two weeks TC to pt, notified of results/provider response. Pt states she has been feeling ok the last 3-4 days. No nausea/diarrhea. R side still bothers her some, but nothing intense like it had been. She is drinking fluids. Jeremiah Galindo LPN Labs show calcium is up. But has been normal when rechecked with ionized in the past. Lipase or pancreatic enzyme is mildly up. How is she feeling? documented in this encounter [facility] 01-24-2023 Miscellaneous Notes Patient phones requesting refills as follows: Requested Prescriptions Pending Prescriptions Disp Refills Cholecalciferol, Vitamin D3, 25 mcg (1,000 unit) cap 90 capsule 3 Sig: Take 1 capsule by mouth once daily. TALIA 01/23/23 NOV 03/27/23 Please review and advise. Jeremiah Galindo LPN documented in this encounter [facility] 01-23-2023 Note [facility] 01-23-2023 History of Presen t illness Narrative Patient presents with: Acute Visit HPI:This Team Access Model visit is a virtual encounter. It required patient-provider interaction for the medical decision making as documented below. Patient has elected to have a visit through distance medicine I have communicated my name and active licensure. The patient's identity and physical location were verified at the time of this visit. Either the patient or their legal bilingual inside sales representative has been informed of the risks and benefits of -- and alternatives to -- treatment through a remote evaluation and consents to proceed with the evaluation remotely. Has not felt well for a month. Started with some right chest wall, right rib cage tenderness and right arm pain Complains of vomiting and diarrhea. Had work in [facility] ER on the Work up negative. Did ekg and labs. I did note she had a mild anemia. Given norco. Her rib and arm pain improved and went away in a few days. Then developed nausea and vomiting.on Friday the . Had malaise on Friday she still felt badly. Yesterday felt good enough o go to grocery store. Today is worse again. Decreased appetite. Has some epigastric discomfort Eating makes it worse Has had diarrhea this am. Has went four times today. No bloody or black stools. No significant distention. Threw up once today. Usually in am. Increased belching and burping. No fever or chills. No yellowing to the skin or itching. No cough. No shortness of breath. No sore throat or congestion. Drinking fluids ok. Sugars are doing ok. No frequency or hematuria. No recent antibiotic usage or travel hx. MEDICATIONS: Current Outpatient Medications Medication Sig montelukast (SINGULAIR) 10 mg tablet Take 1 tablet by mouth daily at bedtime. citalopram (CELEXA) 40 mg tablet Take 1 tablet by mouth once daily. olmesartan (BENICAR) 20 mg tablet Take 0.5 tablets by mouth once daily. gabapentin (NEURONTIN) 300 mg capsule Take 1 capsule by mouth daily at bedtime for 90 days. dulaglutide (TRULICITY) 1.5 mg/0.5 mL pen injector Inject 1.5 mg subcutaneously one time a week. Inject once per week. Discard Pen After metFORMIN (GLUCOPHAGE) 500 mg tablet Take 1 tablet by mouth three times daily. ondansetron orally disintegrating (ZOFRAN ODT) 4 mg disintegrating tablet Take 1 tablet by mouth every 8 hours as needed. furosemide (LASIX) 20 mg tablet Take 1 tablet by mouth once daily. rosuvastatin (CRESTOR) 10 mg tablet Take 1 tablet by mouth daily at bedtime. pantoprazole DR (PROTONIX) 40 mg tablet Take 1 tablet by mouth once daily. coenzyme Q10 (COENZYME Q-10) 100 mg cap capsule Take 1 capsule by mouth twice daily. fluticasone-salmeterol (ADVAIR DISKUS) 250-50 mcg/dose inhaler Inhale 1 Puff as instructed twice daily. RINSE AND GARGLE MOUTH WITH WATER AFTER EACH USE. albuterol HFA (PROVENTIL HFA, VENTOLIN HFA) 90 mcg/actuation inhaler Inhale 2 Puffs as instructed every 4 hours as needed for wheezing/shortness of breath. blood sugar diagnostic (FortumoTOUCH VERIO TEST STRIPS) test strip Test blood sugar(s) 3 times daily. Dx: Type 2 DM - Controlled E11.9 Insulin: No Cholecalciferol, Vitamin D3, 25 mcg (1,000 unit) cap Take 1 capsule by mouth once daily. lidocaine (LIDODERM) 5 % Apply 1 Patch as directed every 12 hours. Remove old patch prior to placing new patch. Location: back Fluorouracil (EFUDEX) 5 % cream Apply to affected areas twice daily for 2-4 weeks or until red blistering reaction occurs. fluticasone-salmeterol (ADVAIR, WIXELA) 250-50 mcg/dose Inhale 1 Puff as instructed twice daily. blood sugar diagnostic (BLOOD GLUCOSE TEST) test strip Test blood sugar(s) 3 times daily. Dx: Type 2 DM - Controlled E11.9 Insulin: No: True Matrix Lancets lancets Test blood sugar(s) 3 times daily. Dx: Type 2 DM - Controlled E11.9 Insulin: No True matrix clobetasol (TEMOVATE) 0.05 % cream apply to rash on legs and hands twice daily 5 days a week as needed. Apply twice daily as needed, up to 21 days per month. Avoid application to the face, armpits, groin. buPROPion XL (WELLBUTRIN XL) 150 mg 24 hr tablet Take 150 mg by mouth once daily. Blood-Glucose Meter monitoring kit Glucose Meter of Choice - Kit - Dx: Type 2 DM - Controlled E11.9 COMPOUNDED PRESCRIPTION Tens unit DX: DDD of neck and lumbar spine aspirin, enteric coated (ASPIRIN, ENTERIC COATED) 81 mg EC tablet Take 81 mg by mouth once daily. traZODone 100 mg tablet Take 100 mg by mouth daily at bedtime. One or two busPIRone 5 mg tablet Take 5 mg by mouth twice daily. Current Facility-Administered Medications Medication Dose Route Frequency Aminolevulinic Acid HCl 20 % soln 1 Each 1 Each TOPICAL PRN ALLERGIES: ALLERGIES Allergen Reactions Metronidazole Anaphylaxis Adhesive Other: See Comments redness with bandaids Augmentin [Amoxicil* Other: See Comments Thrush/yeast infection Ciprofloxacin Rash Clindamycin Swelling throat swelling Penicillins Intolerance Yeast infections Prozac [Fluoxetine * Rash Sulfa Dyne Rash 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 Hyperlipidemia Lung nodules Pulmonary HTN (HCC) 12/08/2017 mild Squamous cell skin cancer, nasal tip 06/24/2016 Tobacco abuse 03/28/2017 PAST SURGICAL HISTORY Procedure Laterality Date ADDTL NECK SPINE FUSION 09/2004 CHOLECYSTECTOMY 2000 COLONOSCOPY 1982 COLONOSCOPY FLX DX W/COLLJ SPEC WHEN PFRMD 09/01/12 COLONOSCOPY FLX DX W/COLLJ SPEC WHEN PFRMD Done in [place] unable to obtain COLONOSCOPY FLX DX W/COLLJ SPEC WHEN PFRMD 11/17/2013 Colonoscopy COLONOSCOPY FLX DX W/COLLJ SPEC WHEN PFRMD 12/24/2017 Colonoscopy ESOPHAGOGASTRODUODENOSCOPY TRANSORAL DIAGNOSTIC 06/04/2013 EGD ESOPHAGOGASTRODUODENOSCOPY TRANSORAL DIAGNOSTIC 05/17/15 EGD ESOPHAGOGASTRODUODENOSCOPY TRANSORAL DIAGNOSTIC 12/24/2017 EGD HYSTERECTOMY HX 1984 Pelvic pain & DUB NEUROPLASTY &/TRANSPOS MEDIAN NRV CARPAL TUNNE Bilateral 08/27/2018 Bilateral carpal tunnel release OOPHORECTOMY PARTIAL/TOTAL UNI/BI 1985 Bilateral PAST SURGICAL HISTORY OF removed tissue nose for SCC PAST SURGICAL HISTORY OF 10/13/2017 Excision nasal mass, Dr Marbin Harris REMOVE TONSIL AND ADENOI UNDER AGE 14 SLING OPER STRES INCONTINENCE 2001 FAMILY HISTORY Problem Relation Age of Onset Colon Polyps Mother COPD Mother Colon Cancer Mother Colon Polyps Father Heart Father Colon Polyps Sister Hypertension Sister Colon Polyps Brother other (Parkinsonism [Other]) Brother Colon Polyps Brother Ischemic Heart Disease Brother Diabetes Maternal Grandfather Social History Tobacco Use Smoking status: Every Day Packs/day: 0.50 Years: 35.00 Pack years: 17.50 Types: Cigarettes Start date: 1975 Smokeless tobacco: Never Tobacco comments: Former one ppd smoker Substance Use Topics Alcohol use: Never Drug use: No Reviewed current medications, allergies, past medical history, surgical history, family history and social history today. REVIEW OF SYSTEMS All other reviewed and negative other than HPI. VITALS: There were no vitals taken for this visit. Last 4 Encounter Wt Readings: Date: Wt: 12/26/2022 67.1 kg (148 lb) 08/08/2022 67.1 kg (148 lb) 06/12/2022 68.3 kg (150 lb 9.6 oz) 03/12/2022 69.9 kg (154 lb) PHYSICAL EXAMINATION: Patient is alert and oriented during visit. Answers appropriately. Alert, nontoxic. No cough. Breathing comfortably ASSESSMENT/PLAN: 1. Epigastric pain - ICD9: 789.06, ICD10: R10.13 (primary diagnosis) - light diet. Suspect is gastroenteritis, however, Red flags for re-assessment reviewed with patient in detail. Call if worsens or not better by Friday. - CBC + DIFF - COMP METABOLIC PANEL - LIPASE BLD 2. Major depressive disorder, recurrent 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) - ICD9: 296.33, ICD10: F33.2 3. Type 2 diabetes mellitus with diabetic neuropathy, without long-term current use of insulin (HCC) - ICD9:- follow sugars. 4. Chronic obstructive pulmonary disease, unspecified COPD type (HCC) - ICD9: 496, ICD10: J44.9 - stable. 5. Nausea - ICD9: 787.02, ICD10: R11.0 - has zofran at home. 6. Diarrhea, unspecified type - ICD9: 787.91, ICD10: R19.7 - as above. Consider stool studies if continues. Bebeto Petersen MD documented in this encounter [facility] 01-23-2023 Miscellaneous Notes Pt calls and states the following: VOMITING VOMITING SEVERITY: once today around 10:30 am ONSET: Friday01-18-23 , Friday01-20-23 vomiting x 2, Friday and Friday nauseated and today day x 1 FLUIDS: drinking water an keeping food light so she does not vomiting. Yesterday she ate a fish sandwich and that is what came up this am ABDOMINAL PAIN: no DIARRHEA: when she has a stool it is diarrhea. She has gone 3 times today CONTACTS: no CAUSE: unknown HYDRATION STATUS: getting water 2 to 3 bottles per day, having dry mouth, urinated x 2 today last time 10:30 am OTHER SYMPTOMS: headache, dizziness , cold can't get warm and at night she sweats DENIES: fever, vomiting blood or head injury Pt scheduled for a virtual apt. This will be the first time for a virtual apt. Danielle De Leon LPN documented in this encounter [facility] 01-02-2023 Miscellaneous Notes See pt message. Looks like you said labs look good. Rakel Shore Ma documented in this encounter [facility] 12-26-2022 Instructions Carolina Mirza PA-C - 12/26/2022 12:05 PM EST Guidelines for the Treatment of Orthostatic Intolerance (OI) 1. Make all postural changes from lying to sitting or sitting to standing, slowly. 2. Drink to 2.0 -2.5 L of fluids per day. 3. Increase sodium in the diet to 3 - 5 g per day. If not helpful and BP is stable, may try 5-7 g per day. 4. Avoid large meals which can cause low blood pressure during digestion. It is better to eat smaller meals more often than three large meals. 5. Avoid alcohol. Alcohol and cause blood to pool in the legs which may worsen low blood pressure reactions when standing. This can aggravate OI. 6. Perform lower extremity exercises to improve strength of the leg muscles. This will help prevent blood from a pooling in the legs when standing and walking. 7. Raise the head of the bed by 6 to 10 inches. The entire bed must be at an angle. Raising only the head portion of the bed at waist level or using pillows will not be effective. Raising the head of the bed will reduce urine formation overnight and there will be more volume in the circulation in the morning. 8. During bad days, drink 500 cc of water quickly. This will result in an increased blood pressure within 5 minutes of drinking the water. The effect will last up to one hour and may improve orthostatic intolerance. 9. Use custom fitted elastic support stockings. These will reduce a tendency for blood to pool in the legs when standing and may improve orthostatic intolerance. 10. Use physical counter maneuvers such as leg crossing, squatting, or raising and resting the leg on a chair. These maneuvers increase blood pressure and can improve orthostatic intolerance. documented in this encounter [facility] 12-26-2022 Note [facility] 12-26-2022 History of Presen t illness Narrative 67 year old female with c/o 6 month med recheck. Foot Pain Frequent, intermittent pain On outside of 1 and 5 phalanges of B/L feet. Pain on 5th phalanges is describe as burning sensation Pain on 1st phalanges is described as stubbing your toe No specific activities cause the pain Better when sitting down and taking pressure off of feet Worse when walking on it. No relief with diabetic foot cream Mild relief with Alleve (+) weakness in feet, feels like she could fall. Has not fallen, but caught myself a few times (+) numbness in 3rd, 4th, 5th phalanges of B/L feet R Shoulder Pain Pain occurs at night when patient moves in her sleep Aggravated by activities that cause her to push down with her R arm or pull across her body Pain is not reproducible Essential hypertension (primary encounter diagnosis) Svt (supraventricular tachycardia) (hcc) Pad (peripheral artery disease) (hcc) Mixed hyperlipidemia Cardiovascular interval hx: None Current meds: Rosuvastatin 10 mg daily at bedtime Olmesartan 20 mg 1/2 tablet daily ASA 81 mg coated daily Use of NTG: No Chest pain, arm, jaw pain, neck, or upper back pain suggestive of angina: No. SOB: No Dyspnea with exertion: Yes, out of breathe after walking about 2 blocks. Able to grocery shop without issues. orthopnea: No Cough : At night, coughs up clear phlegm. racing or irregular heartbeats: Yes palpitations: Yes, every morning when waking up for about 5 minutes. Feels like heart is going to beat out of my chest . Intermittently occurs throughout the day with exertion. syncopal sx: Yes, feels like she is going to pass out. Can occur when she is standing, or getting up to quickly. Headache: Yes. Dull headache across forehead. Denies nausea/vomiting, photosensitivity. Unexplainable fatigue No Leg swelling: No Nausea: Yes, daily. Medication helps. diaphoresis: Yes at night, or when sugar is low. Heartburn: Yes. Had an episode 2 days ago that it was not relievable with Tums, eating bland foods, and medications for GERD. Attributes to eating chili cheese Fritos the day before. Claudication: No Smoking: Yes, about 1/2 a day. Following Low cholesterol, high fiber diet? Yes If on statin: muscle aches? Yes, If on statin: GI sx or diarrhea? No Additional history None. Lab review: Component Latest Ref Rng & Units 12/25/2018 02/15/2019 09/13/2020 01/24/2022 WBC 3.70 - 11.00 k/uL 6.53 8.50 8.13 RBC 3.90 - 5.20 m/uL 4.10 4.07 4.08 Hemoglobin 11.5 - 15.5 g/dL 13.6 13.0 12.8 Hematocrit 36.0 - 46.0 % 41.4 38.7 38.5 MCV 80.0 - 100.0 fL 101.0 (H) 95.1 94.4 MCH 26.0 - 34.0 pg 33.2 31.9 31.4 MCHC 30.5 - 36.0 g/dL 32.9 33.6 33.2 RDW-CV 11.5 - 15.0 % 13.1 12.6 13.0 Platelet Count 150 - 400 k/uL 211 243 237 MPV 9.0 - 12.7 fL 10.6 10.7 10.7 Neut% % 48.1 56.0 47.2 Abs Neut (ANC) 1.45 - 7.50 k/uL 3.12 4.75 3.83 Lymph% % 44.7 37.3 46.4 Abs Lymph 1.00 - 4.00 k/uL 2.92 3.17 3.77 [place]% % 5.8 5.1 5.0 Abs [place] <0.87 k/uL 0.38 0.43 0.41 Eosin% % 1.1 1.1 0.7 Abs Eosin <0.46 k/uL 0.07 0.09 0.06 Baso% % 0.3 0.5 0.5 Abs Baso <0.11 k/uL <0.03 0.04 0.04 Immature Gran % % 0.2 IMMATURE GRANS (ABS) <0.10 k/uL <0.03 NRBC /100 WBC 0.0 Absolute nRBC <0.01 k/uL <0.01 <0.01 <0.01 DTYPE Auto Nucleated Reds 0 /100 WBC 0.0 0.0 Diff Type Auto Diff Auto Diff Protein, Total 6.3 - 8.0 g/dL 8.4 (H) 8.3 (H) Albumin 3.9 - 4.9 g/dL 4.8 4.9 Calcium 8.5 - 10.2 mg/dL 9.8 10.4 (H) Bilirubin, Total 0.2 - 1.3 mg/dL 0.4 0.3 Alkaline Phosphatase 34 - 123 U/L 35 24 (L) AST 13 - 35 U/L 26 34 Glucose 74 - 99 mg/dL 121 (H) 140 (H) BUN 7 - 21 mg/dL 10 9 Creatinine 0.58 - 0.96 mg/dL 0.74 0.81 Sodium 136 - 144 mmol/L 133 (L) 137 Potassium 3.7 - 5.1 mmol/L 4.5 5.2 (H) Chloride 97 - 105 mmol/L 93 (L) 99 CO2 22 - 30 mmol/L 27 23 Anion Gap 9 - 18 mmol/L 13 15 ALT 7 - 38 U/L 27 33 eGFR- >60 eGFR-All Other Races . >60 eGFR >=60 mL/min/1.73m 81 Cholesterol, Total <200 mg/dL 170 137 Triglyceride <150 mg/dL 239 (H) 196 (H) HDL Cholesterol >39 mg/dL 45 49 LDL Cholesterol <100 mg/dL 77 49 Non HDL Cholesterol <130 mg/dL 125 88 Fasting Time hrs 14 12 VLDL Cholesterol <30 mg/dL 48 (H) 39 (H) TC:HDL Ratio <5.10 3.78 2.80 LDL:HDL Ratio <2.54 1.71 1.00 Chronic obstructive pulmonary disease, unspecified copd type ([facility]) Pulmonary htn ([facility]) Asthma with copd ([facility]) Tobacco abuse Rougher Operator: Dr.Elizabeth Ruiz, last appointment was in April 2022 . Interval history: None. Current medications: Montelukast 10 mg daily at bedtime Advair 250-50 mcg 1 puff twice daily Albuterol HFA 2 puffs every 4 hours as needed Worsening shortness of breath: No. Cough: At night, coughs up clear phlegm. . Wheezing: Only at night. Smoking: Yes, 1/2 pack per day. Compliant with medications: Yes. Using rescue inhaler: Uses it x 4-5 times per week when allergies are bad. Flares up with allergies. Type 2 diabetes mellitus with diabetic neuropathy, without long-term current use of insulin ([facility]) Diabetes Mellitus Type 2: Current medications: Metformin 500 mg 1 tablet 3 times daily Dulaglutide 1.5 mg subcu weekly Taking medication as directed consistently? Yes Medication side effects: None Medical Issues / Complications: hypertension, hyperlipidemia, and peripheral vascular disease Checking blood sugars at home? When she feels off , maybe x 1-2 week. Usually in 120s Watching diet? Yes Physical Activity: Sedentary Hypoglycemic spells? Yes, when she doesn't eat. Any visual disturbance? No Chest pain? No New numbness, tingling or loss of sensation? No Any recent foot problems, sores or rashes? Yes, experiencing foot pain. Any recent or sudden weight loss? No Change in urination? No. If yes: Any recent illness? No Last eye exam: Goes annually, next appointment with assistant editor in 2022. Last foot exam: About a year ago. HBA1C: Hemoglobin A1C (%) Date Value 06/10/2022 6.7 01/24/2022 8.8 03/26/2021 7.2 09/13/2020 6.9 ) CMP: Glucose 140 01/24/2022 BUN 9 01/24/2022 Creatinine 0.81 01/24/2022 Sodium 137 01/24/2022 Potassium 4.5 03/12/2022 Chloride 99 01/24/2022 CO2 23 01/24/2022 Protein, Total 8.3 01/24/2022 Albumin 4.9 01/24/2022 Calcium 10.4 01/24/2022 Alkaline Phosphatase 24 01/24/2022 Bilirubin, Total 0.3 01/24/2022 AST 34 01/24/2022 ALT 33 01/24/2022 Last 2 Encounter Wt Readings: Date: Wt: 08/08/2022 67.1 kg (148 lb) 06/12/2022 68.3 kg (150 lb 9.6 oz) Component Latest Ref Rng & Units 09/13/2020 01/24/2022 Creatinine, Ur Random (UCRR) 20.0 - 300.0 mg/dL 183.8 129.6 Albumin, Urine Random mg/L 35.2 33.2 Albumin/Creat Ratio <30 mg/g 19 26 Gastroesophageal reflux disease without esophagitis Chronic antral gastritis Dysphagia, unspecified type Current medication: Pantoprazole DR 40 mg daily. Current symptoms: None. Last Mg level if on PPI chronically: none. Heartburn is controlled: No, any spicy food causes heartburn even when taking medication. Dysphagia: No. Bloody or black stools: No. Bowel changes: No. Last EGD and/or colonoscopy: Last EGD in 2021. Last Colonoscopy in 2017. Osteopenia after menopause No falls. Squamous cell skin cancer, nasal tip No new lesions. Last stratigrapher appointment was about 2019. Lumbar degenerative disc disease Constant pain. Worse when bending forward. Better with OMT. Current medications: Lidoderm 5% 1 patch every 12 hours? TENS unit Depression Okay, feels like medication seems to help. Current medications: Bupropion XL 150 mg daily BuSpar 5 mg twice daily? Current medications: Temovate 0.05% twice daily as needed 5 days a week avoid sensitive skin areas Efudex 5% cream twice daily 2 to 4 weeks? Last visit dermatology 2019 HISTORIES FAMILY HISTORY Problem Relation Age of Onset Colon Polyps Mother COPD Mother Colon Cancer Mother Colon Polyps Father Heart Father Colon Polyps Sister Hypertension Sister Colon Polyps Brother other (Parkinsonism [Other]) Brother Colon Polyps Brother Ischemic Heart Disease Brother Diabetes Maternal Grandfather 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 Hyperlipidemia Lung nodules Pulmonary HTN (HCC) 12/08/2017 mild Squamous cell skin cancer, nasal tip 06/24/2016 Tobacco abuse 03/28/2017 PAST SURGICAL HISTORY Procedure Laterality Date ADDTL NECK SPINE FUSION 09/2004 CHOLECYSTECTOMY 2000 COLONOSCOPY 1982 COLONOSCOPY FLX DX W/COLLJ SPEC WHEN PFRMD 09/01/12 COLONOSCOPY FLX DX W/COLLJ SPEC WHEN PFRMD Done in [place] unable to obtain COLONOSCOPY FLX DX W/COLLJ SPEC WHEN PFRMD 11/17/2013 Colonoscopy COLONOSCOPY FLX DX W/COLLJ SPEC WHEN PFRMD 12/24/2017 Colonoscopy ESOPHAGOGASTRODUODENOSCOPY TRANSORAL DIAGNOSTIC 06/04/2013 EGD ESOPHAGOGASTRODUODENOSCOPY TRANSORAL DIAGNOSTIC 05/17/15 EGD ESOPHAGOGASTRODUODENOSCOPY TRANSORAL DIAGNOSTIC 12/24/2017 EGD HYSTERECTOMY HX 1984 Pelvic pain & DUB NEUROPLASTY &/TRANSPOS MEDIAN NRV CARPAL TUNNE Bilateral 08/27/2018 Bilateral carpal tunnel release OOPHORECTOMY PARTIAL/TOTAL UNI/BI 1985 Bilateral PAST SURGICAL HISTORY OF removed tissue nose for SCC PAST SURGICAL HISTORY OF 10/13/2017 Excision nasal mass, Dr Marbin Harris REMOVE TONSIL AND ADENOI UNDER AGE 14 SLING OPER STRES INCONTINENCE 2001 Social History Tobacco Use Smoking status: Every Day Packs/day: 0.50 Years: 35.00 Pack years: 17.50 Types: Cigarettes Start date: 1975 Smokeless tobacco: Never Tobacco comments: Former one ppd smoker Substance Use Topics Alcohol use: Never Drug use: No ACTIVE PROBLEM LIST Atypical Nevus of Back Actinic Keratosis Actinic Skin Damage Melanocytic Nevi of Face Dermatofibroma of Right Thigh Dermatofibroma of Forearm Other Seborrheic Keratosis Solar Lentigines Degeneration of Lumbar Or Lumbosacral Intervertebral Disc Gerd (Gastroesophageal Reflux Disease) Depression Lung Nodules Type 2 Diabetes Mellitus With Diabetic Neuropathy (Hcc) Cervicalgia Squamous Cell Skin Cancer, Nasal Tip Mixed Hyperlipidemia Pad (Peripheral Artery Disease) (Hcc) Chronic Obstructive Pulmonary Disease (Hcc) Tobacco Abuse Fh: Colon Polyps Dysphagia Back Pain Pulmonary Htn (Hcc) Carpal Tunnel Syndrome On Both Sides Renal Cyst Essential Hypertension Osteopenia After Menopause Current Outpatient Medications Medication Sig Dispense Refill metFORMIN (GLUCOPHAGE) 500 mg tablet Take 1 tablet by mouth three times daily. 90 tablet 5 ondansetron orally disintegrating (ZOFRAN ODT) 4 mg disintegrating tablet Take 1 tablet by mouth every 8 hours as needed. 30 tablet 5 furosemide (LASIX) 20 mg tablet Take 1 tablet by mouth once daily. 30 tablet 5 rosuvastatin (CRESTOR) 10 mg tablet Take 1 tablet by mouth daily at bedtime. [address] (PROTONIX) 40 mg tablet Take 1 tablet by mouth once daily. 30 tablet 5 montelukast (SINGULAIR) 10 mg tablet Take 1 tablet by mouth daily at bedtime. 30 tablet 5 citalopram (CELEXA) 40 mg tablet Take 40 mg by mouth once daily. dulaglutide (TRULICITY) 1.5 mg/0.5 mL pen injector Inject 1.5 mg subcutaneously one time a week. Inject once per week. Discard Pen After 2 mL 11 coenzyme Q10 (COENZYME Q-10) 100 mg cap capsule Take 1 capsule by mouth twice daily. 60 capsule 11 olmesartan (BENICAR) 20 mg tablet Take 0.5 tablets by mouth once daily. 30 tablet 5 fluticasone-salmeterol (ADVAIR DISKUS) 250-50 mcg/dose inhaler Inhale 1 Puff as instructed twice daily. RINSE AND GARGLE MOUTH WITH WATER AFTER EACH USE. 1 Each 11 albuterol HFA (PROVENTIL HFA, VENTOLIN HFA) 90 mcg/actuation inhaler Inhale 2 Puffs as instructed every 4 hours as needed for wheezing/shortness of breath. 1 Inhaler 11 blood sugar diagnostic (ONETOUCH VERIO TEST STRIPS) test strip Test blood sugar(s) 3 times daily. Dx: Type 2 DM - Controlled E11.9 Insulin: No 50 Strip 11 Cholecalciferol, Vitamin D3, 25 mcg (1,000 unit) cap Take 1 capsule by mouth once daily. 90 capsule 3 lidocaine (LIDODERM) 5 % Apply 1 Patch as directed every 12 hours. Remove old patch prior to placing new patch. Location: back 15 Patch 0 Fluorouracil (EFUDEX) 5 % cream Apply to affected areas twice daily for 2-4 weeks or until red blistering reaction occurs. 40 g 0 fluticasone-salmeterol (ADVAIR, WIXELA) 250-50 mcg/dose Inhale 1 Puff as instructed twice daily. 60 Each 1 blood sugar diagnostic (BLOOD GLUCOSE TEST) test strip Test blood sugar(s) 3 times daily. Dx: Type 2 DM - Controlled E11.9 Insulin: No: True Matrix 150 Strip 11 Lancets lancets Test blood sugar(s) 3 times daily. Dx: Type 2 DM - Controlled E11.9 Insulin: No True matrix 100 Each 11 albuterol HFA (VENTOLIN HFA) 90 mcg/actuation inhaler Inhale 2 Puffs as instructed every 4 hours as needed. 18 g 5 clobetasol (TEMOVATE) 0.05 % cream apply to rash on legs and hands twice daily 5 days a week as needed. Apply twice daily as needed, up to 21 days per month. Avoid application to the face, armpits, groin. 45 g 1 buPROPion XL (WELLBUTRIN XL) 150 mg 24 hr tablet Take 150 mg by mouth once daily. Blood-Glucose Meter monitoring kit Glucose Meter of Choice - Kit - Dx: Type 2 DM - Controlled E11.9 1 Each 0 COMPOUNDED PRESCRIPTION Tens unit DX: DDD of neck and lumbar spine 1 Each 0 aspirin, enteric coated (ASPIRIN, ENTERIC COATED) 81 mg EC tablet Take 81 mg by mouth once daily. traZODone 100 mg tablet Take 100 mg by mouth daily at bedtime. One or two busPIRone 5 mg tablet Take 5 mg by mouth twice daily. Current Facility-Administered Medications Medication Dose Route Frequency Provider Last Rate Last Admin Aminolevulinic Acid HCl 20 % soln 1 Each 1 Each TOPICAL PRN Renata Sorensen APRN.GENERAL ASSISTANT 1 Each at 04/16/21 1357 HIV SCREENING Never done ALPHA-1 ANTITRYPSIN DEFICIENCY SCREENING Never done DTAP,TDAP,TD(2 - Td or Tdap) due on 08/14/2022 ADVANCE DIRECTIVE DISCUSSION due on 11/10/2022 HBA1C due on 12/11/2022 COLORECTAL CANCER SCREENING due on 12/24/2022 MAMMOGRAM due on 03/13/2023 EXAM: BP 108/62 Pulse 76 Resp 16 Wt 67.1 kg (148 lb) SpO2 96% BMI 27.96 kg/m Pleasant adult female in no acute distress. Alert and oriented all spheres. Normal affect and cognition. Speech normal. No deficits to learning or comprehension. Skin warm, dry, pink to lips and nailbeds. Normal turgor. Respirations regular and unlabored. HEENT: NCAT. No scleral icterus or conjunctival injection. TM's clear. Nose and oropharynx free from injection or lesion. Oral membranes moist and pink. No cervical lymph nodes. Thyroid non-tender, no masses, or enlargement. Carotids pulses 2+/4+ without bruits. No JVD with HOB at 30 degrees. Chest is normal shape. Lungs are clear to all roberts with good air exchange through out. HRRR without murmur or gallop. No lifts, heaves, or rubs. Extrem: no clubbing or cyanosis. Edema: None. Extremities are warm and pink with prompt capillary refill. Decreased sensation to monofilament testing on B/L anterior lower legs and feet. Full ROM of R shoulder, tenderness with extension and adduction of shoulder. Tenderness with palpation. ASSESSMENT/PLAN: 1. Essential hypertension - ICD9: 401.9, ICD10: I10 (primary diagnosis) - good control - Continue current medication(s) - Recommended regular aerobic exercise. - Goal of BP <130/80 - OLMESARTAN 20 MG TABLET 2. SVT (supraventricular tachycardia) ([facility]) - ICD9: 427.89, ICD10: I47.1 - No new symptoms - Suspect orthostatic intolerance: se d/c instructions. Instructed to push fluids with some extra salt, use compression stockings, rise more slowly. 3. PAD (peripheral artery disease) ([facility]) - ICD9: 443.9, ICD10: I73.9 - No current symptoms - Continue current medications 4. Chronic obstructive pulmonary disease, unspecified COPD type ([facility]) - ICD9: 496, ICD10: J44.9 - No new changes - Continue current medications 5. Pulmonary HTN ([facility]) - ICD9: 416.8, ICD10: I27.20 - Stable 6. Asthma with COPD ([facility]) - ICD9: 493.20, ICD10: J44.9 - Mild intermittent Asthma worse with exertion and allergies. - Continue current meds - Avoidance of triggers recommended - MONTELUKAST 10 MG TABLET 7. Tobacco abuse - ICD9: 305.1, ICD10: Z72.0 - Smokes 1/2 pack per day, would like to quit - Cessation encouraged. - Physiologic and physical aspects of tobacco addiction as well as strategies for quitting were discussed. - Counseling was given focusing on the harmful effects of this addiction especially given the patient's medical condition(s) which will be worsened because of the chemicals in tobacco. 8. Mixed hyperlipidemia - ICD9: 272.2, ICD10: E78.2 - to be determined upon return of lab results - Continue current medication. - Encouraged following a low fat, low cholesterol diet. - Discussed the benefits of regular aerobic exercise and weight loss. - Check fasting lipid panel 9. Type 2 diabetes mellitus with diabetic neuropathy, without long-term current use of insulin (HCC) - ICD9: 250.60, 357.2, ICD10: E11.40 - Improved control - Continue current medications - Encouraged regular aerobic exercise and weight loss 10. Gastroesophageal reflux disease without esophagitis - ICD9: 530.81, ICD10: K21.9 - Discussed lifestyle modifications including losing weight, limiting caffeine, no meals three hours before sleep, and head of bed elevation - Continue current medications 11. Chronic antral gastritis - ICD9: 535.10, ICD10: K29.50 - Educated about watching diet and avoiding triggering foods - Continue current medications 12. Dysphagia, unspecified type - ICD9: 787.20, ICD10: R13.10 - Stable, no new changes 13. Osteopenia after menopause - ICD9: 733.90, V49.81, ICD10: M85.80, Z78.0 - Reviewed the need for Calcium and Vitamin D supplements and weight bearing exercise as tolerated 14. Squamous cell skin cancer, nasal tip - ICD9: 173.32, ICD10: C44.321 - Resolved - Educated patient of importance of skin care maintenance, wearing sunscreen, and checking for new lesions - Continue to follow with Dermatology 15. Degeneration of lumbar or lumbosacral intervertebral disc - ICD9: 722.52, ICD10: M51.37 - Chronic low back pain - Patient given instructions use of medications as ordered F/u 3 months to review med changes and status, address HM topics. Carolina Mirza PA-C documented in this encounter [facility] 11-22-2022 Miscellaneous Notes Scheduled 12/13/22 documented in this encounter [facility] 10-25-2022 Miscellaneous Notes Patient phones requesting refills as follows: Requested Prescriptions Pending Prescriptions Disp Refills furosemide (LASIX) 20 mg tablet 30 tablet 5 Sig: Take 1 tablet by mouth once daily. rosuvastatin (CRESTOR) 10 mg tablet 30 tablet 5 Sig: Take 1 tablet by mouth daily at bedtime. pantoprazole DR (PROTONIX) 40 mg tablet 30 tablet 5 Sig: Take 1 tablet by mouth once daily. TALIA 08/08/22 NOV 12/13/22 Please review and advise. Jeremiah Galindo LPN documented in this encounter [facility] 08-08-2022 Nurse Note EVENT MONITOR DISPOSABLE PATCH INSTRUCTIONS [id number] Skin prepped and cleansed with alcohol Patch secured to prepped area Monitor Activated Serial #: [id number] Patient Instructed: Prescribed order timeframe Bathing guidelines Usage of event button and diary documentation Return of monitor at the end of prescribed order Call with problems [phone] or [phone] ext. [phone] Patient expresses a good understanding of instructions Mariana Luna Ma documented in this encounter [facility] 08-08-2022 Instructions Carolina Mirza PA-C - 08/08/2022 11:57 AM EDT HEALTH MAINTENANCE: Your Body mass index is 27.96 kg/m . (Target BMI: 19-25) Regular aerobic exercise, low fat diet, and periodic exams are recommended Living Will & Medical Power of Environmental Remediation Engineer recommended Periodic Pap smear per risk profile. Mammogram recommended yearly. Colon cancer screening by age 50 & every 5-10 years. Calcium intake of 1200-1500mg elemental calcium per day and 1,000-2,000 IU of Vitamin D3/cholecalciferol daily. Bone mineral density (by age 65 or sooner if other risk factors for osteoporosis). IMMUNIZATIONS: TD at age 50 or every 10 years Pneumovax (between ages 50-65) Recommend consideration for Zostavax (shingles vaccine) in women age 60 and older. Yearly flu vaccine in the fall for those 50 and older LABS: Thyroid screening every 5 years after age 50 Fasting blood sugar every 3 years after age 45 Fasting cholesterol every five years after age 45 BONE MINERAL DENSITY PATIENT INSTRUCTIONS ========= Bone mineral density testing measures the amount of calcium in certain parts of your bones. This information determines how strong your bones are. The test is used to detect osteoporosis, a disease in which the bone's mineral content and density are low, increasing a person's risk of fractures. The lumbar spine (lower back) and the hip are the skeletal sites usually examined. For the test, remember that: 1. You cannot take this test if you are . 2. Eat a normal diet on the day of the test. 3. Take your medications as you normally would. 4. DO NOT take calcium supplements (such as Tums) for 24 hours before the test. 5. On the day of the test, leave valuables (jewelry or credit cards) at home. 6. The test should be performed prior to oral, rectal or IV contrast studies, or at least 7 days after any of these studies. For the test, you may be asked to wear a hospital gown. You will lie on your back, on a padded table, in a comfortable position. Generally, you can resume your usual activities immediately. documented in this encounter [facility] 08-08-2022 History of Presen t illness Narrative Welcome to Medicare Annual wellness Shantel Prasad is a 67 year old female who present today for INITIAL AWV I have reviewed the Risk Assessment filled out by the patient. PAST MEDICAL HISTORY Diagnosis Date Back pain on SSI for this Carpal tunnel 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 Depression Diabetes mellitus (HCC) Diverticulitis Dysphagia Emphysema of lung (HCC) 05/15/2015 GI bleed History of squamous cell carcinoma 04/2016 Right nasal tip Hyperlipidemia Lung nodules Pulmonary HTN (HCC) 12/08/2017 mild Squamous cell skin cancer, nasal tip 06/24/2016 Tobacco abuse 03/28/2017 PAST SURGICAL HISTORY Procedure Laterality Date ADDTL NECK SPINE FUSION 09/2004 CHOLECYSTECTOMY 2000 COLONOSCOPY 1982 COLONOSCOPY FLX DX W/COLLJ SPEC WHEN PFRMD 09/01/12 COLONOSCOPY FLX DX W/COLLJ SPEC WHEN PFRMD Done in [place] unable to obtain COLONOSCOPY FLX DX W/COLLJ SPEC WHEN PFRMD 11/17/2013 Colonoscopy COLONOSCOPY FLX DX W/COLLJ SPEC WHEN PFRMD 12/24/2017 Colonoscopy ESOPHAGOGASTRODUODENOSCOPY TRANSORAL DIAGNOSTIC 06/04/2013 EGD ESOPHAGOGASTRODUODENOSCOPY TRANSORAL DIAGNOSTIC 05/17/15 EGD ESOPHAGOGASTRODUODENOSCOPY TRANSORAL DIAGNOSTIC 12/24/2017 EGD HYSTERECTOMY HX 1984 Pelvic pain & DUB NEUROPLASTY &/TRANSPOS MEDIAN NRV CARPAL TUNNE Bilateral 08/27/2018 Bilateral carpal tunnel release OOPHORECTOMY PARTIAL/TOTAL UNI/BI 1985 Bilateral PAST SURGICAL HISTORY OF removed tissue nose for SCC PAST SURGICAL HISTORY OF 10/13/2017 Excision nasal mass, Dr Marbin Harris REMOVE TONSIL AND ADENOI UNDER AGE 14 SLING OPER STRES INCONTINENCE 2001 FAMILY HISTORY Problem Relation Age of Onset Colon Polyps Mother COPD Mother Colon Cancer Mother Colon Polyps Father Heart Father Colon Polyps Sister Hypertension Sister Colon Polyps Brother other (Parkinsonism [Other]) Brother Colon Polyps Brother Ischemic Heart Disease Brother Diabetes Maternal Grandfather Current Outpatient Medications Medication Sig montelukast (SINGULAIR) 10 mg tablet Take 1 tablet by mouth daily at bedtime. citalopram (CELEXA) 40 mg tablet Take 40 mg by mouth once daily. metFORMIN (GLUCOPHAGE) 500 mg tablet Take 1 tablet by mouth three times daily. ondansetron orally disintegrating (ZOFRAN ODT) 4 mg disintegrating tablet Take 1 tablet by mouth every 8 hours as needed. furosemide (LASIX) 20 mg tablet Take 1 tablet by mouth once daily. rosuvastatin (CRESTOR) 10 mg tablet Take 1 tablet by mouth daily at bedtime. pantoprazole DR (PROTONIX) 40 mg tablet Take 1 tablet by mouth once daily. dulaglutide (TRULICITY) 1.5 mg/0.5 mL pen injector Inject 1.5 mg subcutaneously one time a week. Inject once per week. Discard Pen After coenzyme Q10 (COENZYME Q-10) 100 mg cap capsule Take 1 capsule by mouth twice daily. olmesartan (BENICAR) 20 mg tablet Take 0.5 tablets by mouth once daily. fluticasone-salmeterol (ADVAIR DISKUS) 250-50 mcg/dose inhaler Inhale 1 Puff as instructed twice daily. RINSE AND GARGLE MOUTH WITH WATER AFTER EACH USE. albuterol HFA (PROVENTIL HFA, VENTOLIN HFA) 90 mcg/actuation inhaler Inhale 2 Puffs as instructed every 4 hours as needed for wheezing/shortness of breath. blood sugar diagnostic (Property OwlUCH VERIO TEST STRIPS) test strip Test blood sugar(s) 3 times daily. Dx: Type 2 DM - Controlled E11.9 Insulin: No Cholecalciferol, Vitamin D3, 25 mcg (1,000 unit) cap Take 1 capsule by mouth once daily. lidocaine (LIDODERM) 5 % Apply 1 Patch as directed every 12 hours. Remove old patch prior to placing new patch. Location: back Fluorouracil (EFUDEX) 5 % cream Apply to affected areas twice daily for 2-4 weeks or until red blistering reaction occurs. fluticasone-salmeterol (ADVAIR, WIXELA) 250-50 mcg/dose Inhale 1 Puff as instructed twice daily. blood sugar diagnostic (BLOOD GLUCOSE TEST) test strip Test blood sugar(s) 3 times daily. Dx: Type 2 DM - Controlled E11.9 Insulin: No: True Matrix Lancets lancets Test blood sugar(s) 3 times daily. Dx: Type 2 DM - Controlled E11.9 Insulin: No True matrix albuterol HFA (VENTOLIN HFA) 90 mcg/actuation inhaler Inhale 2 Puffs as instructed every 4 hours as needed. clobetasol (TEMOVATE) 0.05 % cream apply to rash on legs and hands twice daily 5 days a week as needed. Apply twice daily as needed, up to 21 days per month. Avoid application to the face, armpits, groin. buPROPion XL (WELLBUTRIN XL) 150 mg 24 hr tablet Take 150 mg by mouth once daily. Blood-Glucose Meter monitoring kit Glucose Meter of Choice - Kit - Dx: Type 2 DM - Controlled E11.9 COMPOUNDED PRESCRIPTION Tens unit DX: DDD of neck and lumbar spine aspirin, enteric coated (ASPIRIN, ENTERIC COATED) 81 mg EC tablet Take 81 mg by mouth once daily. traZODone 100 mg tablet Take 100 mg by mouth daily at bedtime. One or two busPIRone 5 mg tablet Take 5 mg by mouth twice daily. Current Facility-Administered Medications Medication Dose Route Frequency Aminolevulinic Acid HCl 20 % soln 1 Each 1 Each TOPICAL PRN Allergy: Metronidazole, Adhesive, Augmentin [Amoxicillin-Pot Clavulanate], Ciprofloxacin, Clindamycin, Penicillins, Prozac [Fluoxetine Hcl], and Sulfa Dyne SOCIAL HISTORY: Patient is single. She smokes 1/2 ppd for 47 years. Shantel reports her alcohol use as never. Shantel denies regular aerobic exercise. She watches her diet for sodium, low fat and low cholesterol some of the time. Depression screen She in the past two weeks denies, admits to having felt down, depressed, hopeless, or with little interest or pleasure in doing things. Over the last 2 weeks, how often have you been bothered by any of the following problems? 1. Little interest or pleasure in doing things 1 = Several days 2. Feeling down, depressed, or hopeless 0 = Not at all 3. Trouble falling or staying asleep, or sleeping too much 1 = Several days 4. Feeling tired or having little energy 2 = More than half the days 5. Poor appetite or overeating 0 = Not at all 6. Felling bad about yourself-or that you are a failure or have let yourself or your family down 0 = Not at all 7. Trouble concentrating on things, such as reading the newspaper or watching television 1 = Several days 8. Moving or speaking so slowly that other people could have noticed? Or the opposite-being so fidgety or restless that you have moving around a lot more than usual 0 = Not at all 9. Thought that you would be better off or of hurting yourself in some way. 0 = Not at all TOTAL SCORE 5 If you checked off any problems, how difficult have these problems made it for you to do your work, take care of things at home, or get along with other people? Somewhat difficult Functional Ability/Safety Screen 1. Was the patient's timed Up and Go test unsteady or longer than 30 seconds? No I have reviewed functional ability and level of safety. Hearing impairment Activities of daily living Falls, risk Home safety 2. Does the patient need help with the phone, transportation, shopping, preparing meals, housework, laundry, medications or managing money? No 3. Does your home have rungs in the hallway, lack of grab bars in the bathroom, lack of handrails on the stairs or have poor lighting? No Hearing Evaluation: within normal limits Other factors as appropriate for medical and social history BP 116/60 Pulse 74 Resp 16 Wt 67.1 kg (148 lb) SpO2 96% BMI 27.96 kg/m Discussed the patient's BMI with her. The BMI is in the acceptable range. 67 year old female - Counseled on healthy diet and regular exercise - Fall avoidance YES reviewed current list of providers involved in patient care; discussed with patient Detection Cognitive Impairment Direct observation from the information obtained by patient and concerns from family or care takers. Shot Polisher Beneficiary Personalized Health Plan: Referral to specialist Community based programs for self-management and wellness recommended Programs for prevention recommended Physical activity recommendation Smoking cessation (yes/no) Documentation Weight loss recommendations Screening Labs/Orders recommended M SHYLA Ross ACTIVE PROBLEM LIST Chronic obstructive pulmonary disease, unspecified copd type (hcc) Asthma with copd (hcc) Pulmonary htn (hcc) Tobacco abuse Rougher Operator: none. Interval history: Current medications: Advair 250-50 mcg/ dose Albuterol HFA 90mcg/ actuation 2 puffs q4h prn Worsening shortness of breath: No. Cough: smoker's cough . Wheezing: No. Smoking: Yes. Compliant with medications: Yes. Using rescue inhaler: rare use. Trouble with hips and back walking 2 blocks. 02/28/2022 PFT: Spirometry is normal. Minimal small airways obstruction. Essential hypertension HTN: Current meds: Lasix 20mg Omlesartan 20mg 0.5 tabs Daily Patient is compliant with meds Yes Monitors bp at home: Yes. If yes, readings: yesterday Denies side effects: Yes. Chest pain: feels punched in the chest indicating mid sternal in last couple weeks intermittently, rates 8/10, usually lasts about 20 minutes. Dyspnea: some with exertion, mild. Edema: No. Palpitations: episodes with palpitations/ rapid heart rate, almost every morning. Also occurs 3-4 times a week when up and active x 15- 20 minutes Syncope: no syncope. Has orthostasis with standing quickly for a few seconds. No falls. Headache: Yes, splitting , back of eyeballs hurt, usually everyday. Takes Aleve 2 tabs which alleviates most of the episodes Sometimes nauseated- takes Zofran. No vomiting. No visual scotomata. Feels like eyes are pulsing. Dizziness: as above always off-balance . [place] into doors, bueno. Notes vertigo if extends neck back over couch- attributes to post-laminectomy status. Has been followed by [facility] in past and undergone vestibular therapy Last 3 Encounter BP Readings: Date: BP: 06/12/2022 112/66 03/14/2022 172/90 03/14/2022 121/64 Last 2 Encounter Wt Readings: Date: Wt: 06/12/2022 68.3 kg (150 lb 9.6 oz) 03/12/2022 69.9 kg (154 lb) Mixed hyperlipidemia Hyperlipidemia: Current medication Rosuvastatin 10mg daily HS Taking medication consistently Yes Observing low cholesterol high fiber diet Yes Muscle aches Yes, feels muscles just don't work like they used to, doesn't associate with medication Stomach complaints/ diarrhea No Last 2 Lipids: Component Latest Ref Rng & Units 09/13/2020 01/24/2022 Cholesterol, Total <200 mg/dL 137 Triglyceride <150 mg/dL 196 (H) HDL Cholesterol >39 mg/dL 49 Non HDL Cholesterol <130 mg/dL 88 Fasting Time hrs 12 VLDL Cholesterol <30 mg/dL 39 (H) TC:HDL Ratio <5.10 2.80 LDL Cholesterol <100 mg/dL 49 LDL:HDL Ratio <2.54 1.00 Total Cholesterol, Nonfasting <200 mg/dL 121 Triglycerides, Nonfasting <150 mg/dL 187 (H) HDL Cholesterol, Nonfasting >39 mg/dL 49 LDL Cholesterol, Nonfasting <100 mg/dL 35 Non HDL Cholesterol, Nonfasting <130 mg/dL 72 VLDL Cholesterol, Nonfasting <30 mg/dL 37 (H) Total Chol/HDL Ratio, Nonfasting <5.10 mg/dL 2.47 LDL/HDL Ratio, Nonfasting <2.54 mg/dL 0.71 Type 2 diabetes mellitus with diabetic neuropathy, without long-term current use of insulin (hcc) Diabetes Mellitus Type 2: Current medications: Trulicity 1.5mg sc weekly Glucophage 500mg three times a day Taking medication as directed consistently? Yes Medical Issues / Complications: hypertension, hyperlipidemia, and peripheral neuropathy Checking blood sugars at home? Not on a regular basis. Watching diet? Yes Physical Activity: Regular Hypoglycemic spells? No Any visual disturbance? No Chest pain? See above New numbness, tingling or loss of sensation? Yes Any recent foot problems, sores or rashes? No Any recent or sudden weight loss? No Change in urination? No. If yes: Any recent illness? No Last eye exam: up to date. Last foot exam: up to date. HBA1C: Hemoglobin A1C (%) Date Value 06/10/2022 6.7 01/24/2022 8.8 03/26/2021 7.2 09/13/2020 6.9 ) CMP: Glucose 140 01/24/2022 BUN 9 01/24/2022 Creatinine 0.81 01/24/2022 Sodium 137 01/24/2022 Potassium 4.5 03/12/2022 Chloride 99 01/24/2022 CO2 23 01/24/2022 Protein, Total 8.3 01/24/2022 Albumin 4.9 01/24/2022 Calcium 10.4 01/24/2022 Alkaline Phosphatase 24 01/24/2022 Bilirubin, Total 0.3 01/24/2022 AST 34 01/24/2022 ALT 33 01/24/2022 Last 2 Encounter Wt Readings: Date: Wt: 06/12/2022 68.3 kg (150 lb 9.6 oz) 03/12/2022 69.9 kg (154 lb) Component Latest Ref Rng & Units 09/13/2020 01/24/2022 Creatinine, Ur Random (UCRR) 20.0 - 300.0 mg/dL 183.8 129.6 Albumin, Urine Random mg/L 35.2 33.2 Albumin/Creat Ratio <30 mg/g 19 26 Dysphagia, unspecified type Gastroesophageal reflux disease, unspecified whether esophagitis present Current medication:protonix 40mg AC. Current symptoms: still having sx 3-4 times a day with brash and pain. Chokes if isn't careful. No food getting stuck. Last Mg level if on PPI chronically: 1.9 2017. Heartburn is controlled: No. Dysphagia: Yes. Bloody or black stools: has intermittent bright red bleeding with pain, both internal and external hemorrhoids, stools can be quite large, hard Bowel changes: Yes. As above Last EGD and/or colonoscopy: 02/18/2022 EGD [facility] small hiatal hernia without gross reflux Lung nodules 05/23/2015 CT chest WO contrast:1. Resolution of previously described groundglass opacities 2. Stable appearance of multiple subcentimeter lung nodules 12/28/2014 CT chest w/con: Emphysema and indeterminate pulmonary nodules, measuring up to 6 mm, as above. Interval followup examination is recommended in 3-6 months in order to assess stability. Degeneration of lumbar or lumbosacral intervertebral disc Back pain, unspecified back location, unspecified back pain laterality, unspecified chronicity Was seeing [facility] Still has significant pain, current medications help Carpal tunnel 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 Unable to get to this due to time Acute pain of right shoulder Acute pain of left shoulder Right shoulder pop Has seen Dr. Denney. Has not scheduled recommended Severe episode of recurrent major depressive disorder, without psychotic features (hcc) Current medications: Citalopram 40mg daily Stable Hypercalcemia Vitamin d deficiency Component Latest Ref Rng & Units 07/10/2018 02/01/2022 Normalized CAlcium 1.08 - 1.30 mmol/L 1.20 Ionized Calcium 1.08 - 1.30 mmol/L 1.24 Vitamin D 25 Hydroxy 31.0 - 80.0 ng/mL 65.0 40.9 PTH, Intact 15 - 65 pg/mL 41 HIV SCREENING Never done ALPHA-1 ANTITRYPSIN DEFICIENCY SCREENING Never done SHINGRIX VACCINE(1 of 2) Never done PNEUMOCOCCAL: 65+(2 - PCV) due on 09/16/2013 ADVANCE DIRECTIVE DISCUSSION Never done INFLUENZA(1) due on 07/11/2022 BONE DENSITY due on 2022 DTAP,TDAP,TD(2 - Td or Tdap) due on 08/14/2022 EXAM: BP 116/60 Pulse 74 Resp 16 Wt 67.1 kg (148 lb) SpO2 96% BMI 27.96 kg/m Pleasant overweight adult woman in no acute distress. Alert and oriented all spheres. Normal affect and cognition. Speech normal. No deficits to learning or comprehension. Skin warm, dry, pink to lips and nailbeds. Normal turgor. Respirations regular and unlabored. HEENT: NCAT. No scleral icterus or conjunctival injection. TM's clear. Nose and oropharynx free from injection or lesion. Oral membranes moist and pink. No cervical lymph nodes. Thyroid non-tender, no masses, or enlargement. Carotids pulses 2+/4+ without bruits. No JVD with HOB at 30 degrees. Chest is normal shape. Lungs are clear to all roberts with good air exchange through out. No chest wall tenderness. HRRR without murmur or gallop. No lifts, heaves, or rubs. Abdomen: active bowel sounds throughout, soft, nontender, no masses or organomegaly. No CVAT. No inguinal or axillary nodes. Femoral pulse 2/4+ without bruit Extrem: no clubbing, cyanosis, edema. Distal pulses 2+/4, prompt capillary refill. Smnoth nails. Neuro: no focal neuro deficits. Gait and balance otherwise normal. ASSESSMENT/PLAN: 1. Chronic obstructive pulmonary disease, unspecified COPD type (HCC) - ICD9: 496, ICD10: J44.9 (primary diagnosis) 2. Asthma with COPD (HCC) - ICD9: 493.20, ICD10: J44.9 Progressive SOB but little exercise. PFT WNL. 3. Pulmonary HTN (HCC) - ICD9: 416.8, ICD10: I27.20 Mild 4. Tobacco abuse - ICD9: 305.1, ICD10: Z72.0 - Cessation encouraged. - Physiologic and physical aspects of tobacco addiction as well as strategies for quitting were discussed. - Counseling was given focusing on the harmful effects of this addiction especially given the patient's medical condition(s) which will be worsened because of the chemicals in tobacco. 5. Essential hypertension - ICD9: 401.9, ICD10: I10 - good control - Continue current medication(s) - Recommended regular aerobic exercise. - Recommend home blood pressure monitoring, to bring results in on next visit - Goal of BP <130/80 6. Mixed hyperlipidemia - ICD9: 272.2, ICD10: E78.2 - good control - Continue current medication. - Encouraged following a low fat, low cholesterol diet. - Discussed the benefits of regular aerobic exercise and weight loss. 7. PAD (peripheral artery disease) ([facility]) - ICD9: 443.9, ICD10: I73.9 No current sx 8. Type 2 diabetes mellitus with diabetic neuropathy, without long-term current use of insulin ([facility]) - ICD9: 250.60, 357.2, ICD10: E11.40 Controlled. - Continue current medications 9. Gastroesophageal reflux disease, unspecified whether esophagitis present - ICD9: 530.81, ICD10: K21.9 - Discussed lifestyle modifications including losing weight, limiting caffeine, no meals three hours before sleep, and head of bed elevation 10. Lung nodules - ICD9: 793.19, ICD10: R91.8 resolved 11. Dysphagia, unspecified type - ICD9: 787.20, ICD10: R13.10 mild 12. Degeneration of lumbar or lumbosacral intervertebral disc - ICD9: 722.52, ICD10: M51.37 13. Back pain, unspecified back location, unspecified back pain laterality, unspecified chronicity - ICD9: 724.5, ICD10: M54.9 Recommend f/u with pain management as had improvement. 14. Carpal tunnel 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 - ICD9: 354.0, ICD10: G56.03 15. Acute pain of right shoulder - ICD9: 719.41, ICD10: M25.511 16. Acute pain of left shoulder - ICD9: 719.41, ICD10: M25.512 Didn't review due to time 17. Severe episode of recurrent major depressive disorder, without psychotic features ([facility]) - ICD9: 296.33, ICD10: F33.2 Feels she is doing well 18. Hypercalcemia - ICD9: 275.42, ICD10: E83.52 - PTH INTACT BLD - CALCIUM IONIZED BLOOD 19. Vitamin D deficiency - ICD9: 268.9, ICD10: E55.9 Recheck lab 20. Need for influenza vaccination - ICD9: V04.81, ICD10: Z23 - INFLUENZA SEASONAL QUADRIVALENT HIGH DOSE AGE 65+ 21. Need for vaccination - ICD9: V05.9, ICD10: Z23 - PNEUMOCOCCAL IMMUNIZATION PPSV 23 22. Encounter for screening for osteoporosis - ICD9: V82.81, ICD10: Z13.820 - DXA-AXIAL SKELETON 23. Encounter for screening for cardiovascular disorders - ICD9: V81.2, ICD10: Z13.6 - NM CARDIAC PERF STRESS/PHARM 24. Chest pain, unspecified type - ICD9: 786.50, ICD10: R07.9 Chest pain of unclear etiology, patient with significant risk factor(s) of Diabetes Mellitus, Hypertension, and Hyperlipidemia - NM CARDIAC PERF STRESS/PHARM - LEXISCAN 0.4 MG/5 ML INTRAVENOUS SYRINGE - INSERT IV ([place]) - IV DISCONTINUE 25. SVT (supraventricular tachycardia) (HCC) - ICD9: 427.89, ICD10: I47.1 - OUTSIDE VENDOR CARDIAC OUTPATIENT EXTENDED RHYTHM RECORDING (WITHOUT TELEMETRY) 26. Palpitations - ICD9: 785.1, ICD10: R00.2 Mildly symptomatic - OUTSIDE VENDOR CARDIAC OUTPATIENT EXTENDED RHYTHM RECORDING (WITHOUT TELEMETRY) F/u when results available. 65 minute visit Carolina Mirza PA-C Some of this note may have been copied and pasted for the purpose of history context and comparison. documented in this encounter [facility] 07-05-2022 Miscellaneous Notes TALIA 06/12/22 NOV 12/13/22 documented in this encounter [facility] 06-12-2022 History of Presen t illness Narrative Patient presents with: Diabetes: follow up. Discuss A1c Hyperlipidemia: follow up HPI: Patient presents today for office visit for follow up. Had recently xrayed both shoulders. Left is better. Right just pops but is not painful all the time. Offered therapy. Will consider. Sugars are much better. a1c looks great. No side effects from meds. No issues with crestor. No gi upset or myalgias. gerd is controlled. Has seen gastro. Still seeing pulmonary. No worsening cough or shortness of breath. No chest pain or shortness of breath. Has followed with dermatology. Has not been back into see physical medicine. Still has occasional sharp pains on trunk etc. Did use acupuncture. Citalopram is doing well. No bleeding or discharge. Has noted occasional air trapped occasionally in her vagina. Suggested seeing director cost if an issue. Component Latest Ref Rng & Units 06/10/2022 Hemoglobin A1C 4.3 - 5.6 % 6.7 (H) MEDICATIONS: Current Outpatient Medications Medication Sig citalopram (CELEXA) 40 mg tablet Take 40 mg by mouth once daily. famotidine (PEPCID) 20 mg tablet Take 1 tablet by mouth once daily. metFORMIN (GLUCOPHAGE) 500 mg tablet Take 1 tablet by mouth three times daily. ondansetron orally disintegrating (ZOFRAN ODT) 4 mg disintegrating tablet Take 1 tablet by mouth every 8 hours as needed. furosemide (LASIX) 20 mg tablet Take 1 tablet by mouth once daily. rosuvastatin (CRESTOR) 10 mg tablet Take 1 tablet by mouth daily at bedtime. pantoprazole DR (PROTONIX) 40 mg tablet Take 1 tablet by mouth once daily. montelukast (SINGULAIR) 10 mg tablet Take 1 tablet by mouth daily at bedtime. dulaglutide (TRULICITY) 1.5 mg/0.5 mL pen injector Inject 1.5 mg subcutaneously one time a week. Inject once per week. Discard Pen After coenzyme Q10 (COENZYME Q-10) 100 mg cap capsule Take 1 capsule by mouth twice daily. olmesartan (BENICAR) 20 mg tablet Take 0.5 tablets by mouth once daily. fluticasone-salmeterol (ADVAIR DISKUS) 250-50 mcg/dose inhaler Inhale 1 Puff as instructed twice daily. RINSE AND GARGLE MOUTH WITH WATER AFTER EACH USE. albuterol HFA (PROVENTIL HFA, VENTOLIN HFA) 90 mcg/actuation inhaler Inhale 2 Puffs as instructed every 4 hours as needed for wheezing/shortness of breath. blood sugar diagnostic (FortumoTOUCH VERIO TEST STRIPS) test strip Test blood sugar(s) 3 times daily. Dx: Type 2 DM - Controlled E11.9 Insulin: No Cholecalciferol, Vitamin D3, 25 mcg (1,000 unit) cap Take 1 capsule by mouth once daily. lidocaine (LIDODERM) 5 % Apply 1 Patch as directed every 12 hours. Remove old patch prior to placing new patch. Location: back Fluorouracil (EFUDEX) 5 % cream Apply to affected areas twice daily for 2-4 weeks or until red blistering reaction occurs. fluticasone-salmeterol (ADVAIR, WIXELA) 250-50 mcg/dose Inhale 1 Puff as instructed twice daily. blood sugar diagnostic (BLOOD GLUCOSE TEST) test strip Test blood sugar(s) 3 times daily. Dx: Type 2 DM - Controlled E11.9 Insulin: No: True Matrix Lancets lancets Test blood sugar(s) 3 times daily. Dx: Type 2 DM - Controlled E11.9 Insulin: No True matrix albuterol HFA (VENTOLIN HFA) 90 mcg/actuation inhaler Inhale 2 Puffs as instructed every 4 hours as needed. clobetasol (TEMOVATE) 0.05 % cream apply to rash on legs and hands twice daily 5 days a week as needed. Apply twice daily as needed, up to 21 days per month. Avoid application to the face, armpits, groin. buPROPion XL (WELLBUTRIN XL) 150 mg 24 hr tablet Take 150 mg by mouth once daily. Blood-Glucose Meter monitoring kit Glucose Meter of Choice - Kit - Dx: Type 2 DM - Controlled E11.9 COMPOUNDED PRESCRIPTION Tens unit DX: DDD of neck and lumbar spine aspirin, enteric coated (ASPIRIN, ENTERIC COATED) 81 mg EC tablet Take 81 mg by mouth once daily. traZODone 100 mg tablet Take 100 mg by mouth daily at bedtime. One or two busPIRone 5 mg tablet Take 5 mg by mouth twice daily. montelukast (SINGULAIR) 10 mg tablet Take 1 tablet by mouth daily at bedtime. (Patient not taking: Reported on 06/12/2022 ) Current Facility-Administered Medications Medication Dose Route Frequency Aminolevulinic Acid HCl 20 % soln 1 Each 1 Each TOPICAL PRN ALLERGIES: ALLERGIES Allergen Reactions Metronidazole Anaphylaxis Adhesive Other: See Comments redness with bandaids Augmentin [Amoxicil* Other: See Comments Thrush/yeast infection Ciprofloxacin Rash Clindamycin Swelling throat swelling Penicillins Intolerance Yeast infections Prozac [Fluoxetine * Rash Sulfa Dyne Rash PAST MEDICAL HISTORY Diagnosis Date Back pain on SSI for this Carpal tunnel 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 Depression Diabetes mellitus (HCC) Diverticulitis Dysphagia Emphysema of lung (HCC) 05/15/2015 GI bleed History of squamous cell carcinoma 04/2016 Right nasal tip Hyperlipidemia Lung nodules Pulmonary HTN (HCC) 12/08/2017 mild Squamous cell skin cancer, nasal tip 06/24/2016 Tobacco abuse 03/28/2017 PAST SURGICAL HISTORY Procedure Laterality Date ADDTL NECK SPINE FUSION 09/2004 CHOLECYSTECTOMY 2000 COLONOSCOPY 1982 COLONOSCOPY FLX DX W/COLLJ SPEC WHEN PFRMD 09/01/12 COLONOSCOPY FLX DX W/COLLJ SPEC WHEN PFRMD Done in [place] unable to obtain COLONOSCOPY FLX DX W/COLLJ SPEC WHEN PFRMD 11/17/2013 Colonoscopy COLONOSCOPY FLX DX W/COLLJ SPEC WHEN PFRMD 12/24/2017 Colonoscopy ESOPHAGOGASTRODUODENOSCOPY TRANSORAL DIAGNOSTIC 06/04/2013 EGD ESOPHAGOGASTRODUODENOSCOPY TRANSORAL DIAGNOSTIC 05/17/15 EGD ESOPHAGOGASTRODUODENOSCOPY TRANSORAL DIAGNOSTIC 12/24/2017 EGD HYSTERECTOMY HX 1984 Pelvic pain & DUB NEUROPLASTY &/TRANSPOS MEDIAN NRV CARPAL TUNNE Bilateral 08/27/2018 Bilateral carpal tunnel release OOPHORECTOMY PARTIAL/TOTAL UNI/BI 1985 Bilateral PAST SURGICAL HISTORY OF removed tissue nose for SCC PAST SURGICAL HISTORY OF 10/13/2017 Excision nasal mass, Dr Marbin Harris REMOVE TONSIL AND ADENOI UNDER AGE 14 SLING OPER STRES INCONTINENCE 2001 FAMILY HISTORY Problem Relation Age of Onset Colon Polyps Mother COPD Mother Colon Cancer Mother Colon Polyps Father Heart Father Colon Polyps Sister Hypertension Sister Colon Polyps Brother other (Parkinsonism [Other]) Brother Colon Polyps Brother Ischemic Heart Disease Brother Diabetes Maternal Grandfather Social History Tobacco Use Smoking status: Current Every Day Smoker Packs/day: 0.50 Years: 35.00 Pack years: 17.50 Types: Cigarettes Start date: 1975 Smokeless tobacco: Never Used Tobacco comment: Former one ppd smoker Substance Use Topics Alcohol use: Never Drug use: No Reviewed current medications, allergies, past medical history, surgical history, family history and social history today. REVIEW OF SYSTEMS All other reviewed and negative other than HPI. HEALTH MAINTENANCE: Reviewed health maintenance issues today and recommended the following in detail. HIV SCREENING Never done SHINGRIX VACCINE(1 of 2) Never done PNEUMOCOCCAL(2 - PCV) due on 09/16/2013 VITALS: BP 112/66 Pulse 74 Ht 154.9 cm (5' 1 ) Wt 68.3 kg (150 lb 9.6 oz) SpO2 97% BMI 28.46 kg/m Last 4 Encounter Wt Readings: Date: Wt: 06/12/2022 68.3 kg (150 lb 9.6 oz) 03/12/2022 69.9 kg (154 lb) 02/28/2022 70.8 kg (156 lb) 02/28/2022 70.8 kg (156 lb) PHYSICAL EXAMINATION: General appearance: Well appearing, alert, in no acute distress, well-hydrated, well nourished. Skin: Skin color, texture, turgor normal, no suspicious rashes or lesions Head: Normocephalic, no masses, lesions, tenderness or abnormalities Neck: Supple, no adenopathy; thyroid symmetric, normal size, no bruits Lungs: Lungs clear to auscultation. No wheezing, rhonchi, rales Heart: RRR without murmur, gallop, or rubs. No ectopy Abdomen: Normal abdominal exam, Abdomen soft, non-tender. Bowel sounds normal. No masses, organomegaly Extremities: No deformities, edema, skin discoloration, clubbing or cyanosis. Good capillary refill. Musculoskeletal: No joint swelling, deformity, or tenderness Peripheral pulses: Normal Neuro: Negative. ASSESSMENT/PLAN: 1. Type 2 diabetes mellitus with diabetic neuropathy, without long-term current use of insulin ([facility]) - ICD9: 250.60, 357.2, ICD10: E11.40 (primary diagnosis) Controlled. - Continue current medications - CBC + DIFF - COMP METABOLIC PANEL - LIPID PANEL BASIC - ALBUMIN/CREAT RATIO RND UR - HGB A1C 2. Renal cyst - ICD9: 753.10, ICD10: N28.1 - does not need followed up. 3. Mixed hyperlipidemia - ICD9: 272.2, ICD10: E78.2 - good control - Continue current medication. 4. Chronic obstructive pulmonary disease, unspecified COPD type ([facility]) - ICD9: 496, ICD10: J44.9 - per pulmonary 5. Squamous cell skin cancer, nasal tip - ICD9: 173.32, ICD10: C44.321 - per derm. 6. Severe episode of recurrent major depressive disorder, without psychotic features ([facility]) - ICD9: 296.33, ICD10: F33.2 - doing well. 7. Screening for HIV (human immunodeficiency virus) - ICD9: V73.89, ICD10: Z11.4 - HIV 1 2 COMBO(AG/AB),WITH REFLEX TO DIFFERENTIATION Bebeto J [place] RTO in six months and prn. documented in this encounter [facility] 06-03-2022 Miscellaneous Notes Patient calling she has not completed her left shoulder xray as yet. Patient asking for order for right shoulder to have xray done. 05/30 she was making her bed and right shoulder popped, each time she moves her arm it pops. Pending order if wanted, needs diagnosis. Please advise documented in this encounter [facility] 05-24-2022 History of Presen t illness Narrative Patient presents with: Pain (Shoulder Pain): left HPI: Patient presents today for office visit for follow up. Has issues with her left shoulder and arm. Started five days ago. Started when laying down on her bed. Hurts to put pressure on it. Worse with movement. Goes from her armpit to her elbow. Wonders if it starts with a nodule in axilla. Has chronic neck issues and is worse. No trauma. Middle and ring fingers are numb. Decreased range of motion in the shoulder. Used lidocaine patches. Helped a little. Aleve also Sugars have been much better. Now on trulicity. Due soon for labs. Averaging around 120. MEDICATIONS: Current Outpatient Medications Medication Sig citalopram (CELEXA) 20 mg tablet Take 2 tablets by mouth once daily. [facility] famotidine (PEPCID) 20 mg tablet Take 1 tablet by mouth once daily. metFORMIN (GLUCOPHAGE) 500 mg tablet Take 1 tablet by mouth three times daily. ondansetron orally disintegrating (ZOFRAN ODT) 4 mg disintegrating tablet Take 1 tablet by mouth every 8 hours as needed. furosemide (LASIX) 20 mg tablet Take 1 tablet by mouth once daily. rosuvastatin (CRESTOR) 10 mg tablet Take 1 tablet by mouth daily at bedtime. pantoprazole DR (PROTONIX) 40 mg tablet Take 1 tablet by mouth once daily. montelukast (SINGULAIR) 10 mg tablet Take 1 tablet by mouth daily at bedtime. dulaglutide (TRULICITY) 1.5 mg/0.5 mL pen injector Inject 1.5 mg subcutaneously one time a week. Inject once per week. Discard Pen After coenzyme Q10 (COENZYME Q-10) 100 mg cap capsule Take 1 capsule by mouth twice daily. olmesartan (BENICAR) 20 mg tablet Take 0.5 tablets by mouth once daily. fluticasone-salmeterol (ADVAIR DISKUS) 250-50 mcg/dose inhaler Inhale 1 Puff as instructed twice daily. RINSE AND GARGLE MOUTH WITH WATER AFTER EACH USE. albuterol HFA (PROVENTIL HFA, VENTOLIN HFA) 90 mcg/actuation inhaler Inhale 2 Puffs as instructed every 4 hours as needed for wheezing/shortness of breath. blood sugar diagnostic (ONETOUCH VERIO TEST STRIPS) test strip Test blood sugar(s) 3 times daily. Dx: Type 2 DM - Controlled E11.9 Insulin: No Cholecalciferol, Vitamin D3, 25 mcg (1,000 unit) cap Take 1 capsule by mouth once daily. lidocaine (LIDODERM) 5 % Apply 1 Patch as directed every 12 hours. Remove old patch prior to placing new patch. Location: back Fluorouracil (EFUDEX) 5 % cream Apply to affected areas twice daily for 2-4 weeks or until red blistering reaction occurs. montelukast (SINGULAIR) 10 mg tablet Take 1 tablet by mouth daily at bedtime. fluticasone-salmeterol (ADVAIR, WIXELA) 250-50 mcg/dose Inhale 1 Puff as instructed twice daily. blood sugar diagnostic (BLOOD GLUCOSE TEST) test strip Test blood sugar(s) 3 times daily. Dx: Type 2 DM - Controlled E11.9 Insulin: No: True Matrix Lancets lancets Test blood sugar(s) 3 times daily. Dx: Type 2 DM - Controlled E11.9 Insulin: No True matrix albuterol HFA (VENTOLIN HFA) 90 mcg/actuation inhaler Inhale 2 Puffs as instructed every 4 hours as needed. clobetasol (TEMOVATE) 0.05 % cream apply to rash on legs and hands twice daily 5 days a week as needed. Apply twice daily as needed, up to 21 days per month. Avoid application to the face, armpits, groin. buPROPion XL (WELLBUTRIN XL) 150 mg 24 hr tablet Take 150 mg by mouth once daily. Blood-Glucose Meter monitoring kit Glucose Meter of Choice - Kit - Dx: Type 2 DM - Controlled E11.9 COMPOUNDED PRESCRIPTION Tens unit DX: DDD of neck and lumbar spine aspirin, enteric coated (ASPIRIN, ENTERIC COATED) 81 mg EC tablet Take 81 mg by mouth once daily. traZODone 100 mg tablet Take 100 mg by mouth daily at bedtime. One or two busPIRone 5 mg tablet Take 5 mg by mouth twice daily. Current Facility-Administered Medications Medication Dose Route Frequency Aminolevulinic Acid HCl 20 % soln 1 Each 1 Each TOPICAL PRN ALLERGIES: ALLERGIES Allergen Reactions Metronidazole Anaphylaxis Adhesive Other: See Comments redness with bandaids Augmentin [Amoxicil* Other: See Comments Thrush/yeast infection Ciprofloxacin Rash Clindamycin Swelling throat swelling Penicillins Intolerance Yeast infections Prozac [Fluoxetine * Rash Sulfa Dyne Rash PAST MEDICAL HISTORY Diagnosis Date Back pain on SSI for this Carpal tunnel 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 Depression Diabetes mellitus (HCC) Diverticulitis Dysphagia Emphysema of lung (HCC) 05/15/2015 GI bleed History of squamous cell carcinoma 04/2016 Right nasal tip Hyperlipidemia Lung nodules Pulmonary HTN (HCC) 12/08/2017 mild Squamous cell skin cancer, nasal tip 06/24/2016 Tobacco abuse 03/28/2017 PAST SURGICAL HISTORY Procedure Laterality Date ADDTL NECK SPINE FUSION 09/2004 CHOLECYSTECTOMY 2000 COLONOSCOPY 1982 COLONOSCOPY FLX DX W/COLLJ SPEC WHEN PFRMD 09/01/12 COLONOSCOPY FLX DX W/COLLJ SPEC WHEN PFRMD Done in [place] unable to obtain COLONOSCOPY FLX DX W/COLLJ SPEC WHEN PFRMD 11/17/2013 Colonoscopy COLONOSCOPY FLX DX W/COLLJ SPEC WHEN PFRMD 12/24/2017 Colonoscopy ESOPHAGOGASTRODUODENOSCOPY TRANSORAL DIAGNOSTIC 06/04/2013 EGD ESOPHAGOGASTRODUODENOSCOPY TRANSORAL DIAGNOSTIC 05/17/15 EGD ESOPHAGOGASTRODUODENOSCOPY TRANSORAL DIAGNOSTIC 12/24/2017 EGD HYSTERECTOMY HX 1984 Pelvic pain & DUB NEUROPLASTY &/TRANSPOS MEDIAN NRV CARPAL TUNNE Bilateral 08/27/2018 Bilateral carpal tunnel release OOPHORECTOMY PARTIAL/TOTAL UNI/BI 1985 Bilateral PAST SURGICAL HISTORY OF removed tissue nose for SCC PAST SURGICAL HISTORY OF 10/13/2017 Excision nasal mass, Dr Marbin Harris REMOVE TONSIL AND ADENOI UNDER AGE 14 SLING OPER STRES INCONTINENCE 2002 FAMILY HISTORY Problem Relation Age of Onset Colon Polyps Mother COPD Mother Colon Cancer Mother Colon Polyps Father Heart Father Colon Polyps Sister Hypertension Sister Colon Polyps Brother other (Parkinsonism [Other]) Brother Colon Polyps Brother Ischemic Heart Disease Brother Diabetes Maternal Grandfather Social History Tobacco Use Smoking status: Current Every Day Smoker Packs/day: 0.50 Years: 35.00 Pack years: 17.50 Types: Cigarettes Start date: 1975 Smokeless tobacco: Never Used Tobacco comment: Former one ppd smoker Substance Use Topics Alcohol use: Never Drug use: No Reviewed current medications, allergies, past medical history, surgical history, family history and social history today. REVIEW OF SYSTEMS All other reviewed and negative other than HPI. HEALTH MAINTENANCE: Reviewed health maintenance issues today and recommended the following in detail. COVID-19 VACCINE(1) Never done HIV SCREENING Never done SHINGRIX VACCINE(1 of 2) Never done PNEUMOCOCCAL(2 - PCV) due on 09/16/2013 HBA1C due on 04/26/2022 VITALS: There were no vitals taken for this visit. Last 4 Encounter Wt Readings: Date: Wt: 03/12/2022 69.9 kg (154 lb) 02/28/2022 70.8 kg (156 lb) 02/28/2022 70.8 kg (156 lb) 01/28/2022 72.6 kg (160 lb) PHYSICAL EXAMINATION: General appearance: Well appearing, alert, in no acute distress, well-hydrated, well nourished. Skin: Skin color, texture, turgor normal, no suspicious rashes or lesions Lungs: Lungs clear to auscultation. No wheezing, rhonchi, rales Heart: RRR without murmur, gallop, or rubs. No ectopy Abdomen: Normal abdominal exam, Abdomen soft, non-tender. Bowel sounds normal. No masses, organomegaly Extremities: No deformities, edema, skin discoloration, clubbing or cyanosis. Good capillary refill. Slightly decreased range of motion. Negative empty can sign. No deformity. Neuro intact. Normal pp's ASSESSMENT/PLAN: 1. Acute pain of left shoulder - ICD9: 719.41, ICD10: M25.512 (primary diagnosis) - Discussed risks and benefits of new medication with the patient. Advised them to call if any side effects or questions. Red flags for re-assessment reviewed with patient in detail. Call if symptoms worsen at all or if not better in one to two weeks Reviewed diagnosis and treatment options in detail. Questions were answered. Patient expressed understanding of treatment plan. - monitor sugars while on meds. - XR SHOULDER GENERAL 3V OR MORE AP/TRUE AP/OTHER LEFT - PREDNISONE 20 MG TABLET 2. Recurrent major depression in partial remission (HCC) - ICD9: 296.35, ICD10: F33.41 - CITALOPRAM 20 MG TABLET Bebeto Petersen documented in this encounter [facility] 05-24-2022 Nurse Note Patient complains of: left arm shoulder pain. Duration: 5 days Location:back of shoulder down arm in armpit Aggravating factors:lifting arm is more painful Things that improve symptoms :has used Aleve some Denies numbness tingling Recalls no injury documented in this encounter [facility] 05-03-2022 Miscellaneous Notes Patient has been identified by name and date of : Yes Patient phones for refill(s): Pending Prescriptions Disp Refills MONTELUKAST 10 MG TABLET 30 tablet 1 Sig: Take 1 tablet by mouth daily at bedtime. KEVAN: No Date of last office visit in primary care: 03/12/22 Last 2 Encounter Wt Readings: Date: Wt: 03/12/2022 69.9 kg (154 lb) 02/28/2022 70.8 kg (156 lb) Previous labs/tests for medication: Not applicable Please advise. Thank you. Sue Wong LPN documented in this encounter [facility] 05-03-2022 Miscellaneous Notes talia--03/12/22 Next-- 06/12/22 Last refills- Citalopram 02/22/2020 30 with 3 refills Metformin 10/16/21 90 with 5 refills odansetron 11/05/21 30 with 5 refills Furosemide 11/05/21 30 with 5 refills Rosuvastatin 11/05/21 30 with 5 refills pantoprazole 12/07/21 30 with 5 refills Last labs-- 03/12/22 documented in this encounter [facility] 03-14-2022 Nurse Note Patient ride called and on way Patient in bed, will continue to monitor, safety maintained, call light within reach. RR even and unlabored, no complaints, all needs met at this time. documented in this encounter [facility] 03-14-2022 Miscellaneous Notes OPERATIVE/PROCEDURE REPORT LOG ID: [id number] Surgery/Procedure Date: 03/14/2022 Incision/Procedure Start Time: 8:24 AM Incision Close/Procedure End Time: 8:28 AM Surgeon(s)/Proceduralist(s) and Child Welfare Consultant(s): Fran Salcido MD - Proceduralist No Additional Staff Procedure(s): Esophagogastroduodenoscopy (EGD) with biopsy Anesthesia: Monitored Anesthesia Care Brief History: history of poorly controlled GERD and dysphagia Procedure Details: The patient was placed in the left lateral decubitus position. A bite block was placed and medications administered as above. The Olympus gastroscope was used to intubate the oropharynx and esophagus with ease. We proceeded down to the second part of the duodenum. The duodenal mucosa and bulb appeared normal. We then withdrew into the stomach and visualized an antrum with mild erythema. Biopsies were taken to rule out H. Pylori. Body of the stomach showed some bile reflux. Retroflexion was performed and this showed a normal fundus and cardia. The squamocolumnar junction and GE junction showed irregular Z line at 35 cm, patulous GE junction noted and small hiatal hernia and some bile reflux could seen through lower sphincter. The proximal esophagus appeared normal. The scope was then withdrawn and the patient tolerated the procedure well. Pre-Op/Pre-Procedure Diagnosis: Uncontrolled GERD and dysphagia Post-Op/Post-Procedure Diagnosis: Patulous GE junction Irregular Z line at 35 cm Some bile reflux noted through GE junction Small hiatal hernia Bile reflux of stomach (moderate) Antral gastritis (R/o bile reflux gastritis) Biopsies taken for histology and to rule out H. Pylori and celiac disease. Specimens: See above EBL: None Complications: None Recommendations: check biopsy results, consider PPI in evening and H2 sharif in AM. Future consideration for carafate I/primary surgeon/proceduralist performed the procedure with assistance. Fran Salcido MD SIGNATURE: Fran Salcido MD PATIENT NAME: Shantel Prasad DATE: March 14, 2022 TIME: 8:39 AM PAGER/CONTACT #: [phone] documented in this encounter [facility] 03-14-2022 History of Presen t illness Narrative H&P done on 03/12/[address] Petersen. documented in this encounter [facility] 03-13-2022 Miscellaneous Notes Please put in a new mammogram order . She is scheduled for 04/01/22. She came in to early and the order was released. Thank you, Barbie documented in this encounter [facility] 03-13-2022 History of Presen t illness Narrative Radiology Service Progress Note PATIENT NAME: Shantel Prasad DATE OF SERVICE: March 13, 2022 TIME: 1:50 PM PATIENT IDENTITY VERIFICATION COMPLETED USING TWO (2) IDENTIFIERS: Name and Date of confirmed by patient verbally. FALL SCREENING: Has the patient had 2 falls in the last year or 1 fall with injury or currently using an Ambulatory Assistive Device (Walker, Cane, Wheelchair, Crutches, etc.)? No PATIENT GENDER DATA: Female. status: : No status: NO. PATIENT RELEVANT IMPLANT DATA REVIEWED: Not Applicable RADIOLOGY DEPARTMENT: Mammography PERIPHERAL IV DATA: Not applicable SIGNED BY: RT Parmjit(R) March 13, 2022 1:50 PM documented in this encounter [facility] 03-12-2022 History of Presen t illness Narrative No chief complaint on file. HPI: Patient presents today for office visit for follow up. Since last visit. Added trulicity. benicar was reduced due to hyperkalemia. Renal us showed no change in renal cyst. Saw Dr. Ruiz and Cira Frazier. She did have a esophagogram that showed hiatal hernia with reflux. She is doing trulicity without difficulty. Not testing her sugars. Asked her to check sugars and my chart them to me in a week. Now on pepcid per GASTROENTEROLOGY. Still with reflux. They wanted her to get and endoscopy. PULMONARY is getting a ct scan. bp is fine on lower dose. No chest pain or shortness of breath. See previous ov in January, copied and pasted: Sugars have been up for several months. Has not been there for a while. Lowest sugar was 159. Has been as high as 300. Has not missed any meds. Some polydipsia. No polyuria. Has not been back to see physical medicine. Has noticed pain around both lower rib cages on the sides. No trauma. No shortness of breath. No edema. No palpitations. No new cough. Still seeing dermatology. Has not followed with pulmonary as she was to Still smoking. Discussed tobacco cessation, including risks of continued use. Offered assistance to help quit if patient desires. bp is stable. No edema. Psych: has some days that are better than other. Overall is stable. Does still have some dysphagia. Had egd in 2018. Had gastritis and multiple gastric polyps. Some heartburn. No black or bloody stools. Had been listed as having pad by cardiology. [place] her pulses may be reduced but not tested by them. Occasional leg pain when walking. See ov from March 30: PULM:seeing pulmonary. Reviewed most recent ct. No further follow up needed of lung nodules. The ct did note a 1.8 cm cyst on the kidney. DM:her sugars have Been higher. Due for hba1c. No changes in diet. HLD:is on a a statin. Increased pain in her arms. Could be from her neck. .HTN: Patient is compliant with meds Yes Denies side effects: Yes. Chest pain: No new symptoms. Stress test in 2018. Dyspnea: No. Edema: No. Palpitations: No. Chronic pain:needs to get back to physical medicine. PSYCH: emotionally is doing well. No issues with meds. Has labs ordered to recheck SPE and calcium labs from Nov she never got done. Due for a1c. Component Latest Ref Rng & Units 01/24/2022 02/01/2022 WBC 3.70 - 11.00 k/uL 8.13 RBC 3.90 - 5.20 m/uL 4.08 Hemoglobin 11.5 - 15.5 g/dL 12.8 Hematocrit 36.0 - 46.0 % 38.5 MCV 80.0 - 100.0 fL 94.4 MCH 26.0 - 34.0 pg 31.4 MCHC 30.5 - 36.0 g/dL 33.2 RDW-CV 11.5 - 15.0 % 13.0 Platelet Count 150 - 400 k/uL 237 MPV 9.0 - 12.7 fL 10.7 Neut% % 47.2 Abs Neut (ANC) 1.45 - 7.50 k/uL 3.83 Lymph% % 46.4 Abs Lymph 1.00 - 4.00 k/uL 3.77 [place]% % 5.0 Abs [place] <0.87 k/uL 0.41 Eosin% % 0.7 Abs Eosin <0.46 k/uL 0.06 Baso% % 0.5 Abs Baso <0.11 k/uL 0.04 Immature Gran % % 0.2 IMMATURE GRANS (ABS) <0.10 k/uL <0.03 NRBC /100 WBC 0.0 Absolute nRBC <0.01 k/uL <0.01 DTYPE Auto Protein, Total 6.3 - 8.0 g/dL 8.3 (H) Albumin 3.9 - 4.9 g/dL 4.9 Calcium 8.5 - 10.2 mg/dL 10.4 (H) Bilirubin, Total 0.2 - 1.3 mg/dL 0.3 Alkaline Phosphatase 34 - 123 U/L 24 (L) AST 13 - 35 U/L 34 ALT 7 - 38 U/L 33 Glucose 74 - 99 mg/dL 140 (H) BUN 7 - 21 mg/dL 9 Creatinine 0.58 - 0.96 mg/dL 0.81 Sodium 136 - 144 mmol/L 137 Potassium 3.7 - 5.1 mmol/L 5.2 (H) 5.3 (H) Chloride 97 - 105 mmol/L 99 CO2 22 - 30 mmol/L 23 Anion Gap 9 - 18 mmol/L 15 eGFR >=60 mL/min/1.73m 81 Cholesterol, Total <200 mg/dL 137 Triglyceride <150 mg/dL 196 (H) HDL Cholesterol >39 mg/dL 49 Non HDL Cholesterol <130 mg/dL 88 Fasting Time hrs 12 VLDL Cholesterol <30 mg/dL 39 (H) TC:HDL Ratio <5.10 2.80 LDL Cholesterol <100 mg/dL 49 LDL:HDL Ratio <2.54 1.00 Creatinine, Ur Random (UCRR) 20.0 - 300.0 mg/dL 129.6 Albumin, Urine Random mg/L 33.2 Albumin/Creat Ratio <30 mg/g 26 Hemoglobin A1C 4.3 - 5.6 % 8.8 (H) Estimated Average Glucose mg/dL 206 Normalized CAlcium 1.08 - 1.30 mmol/L 1.20 Ionized Calcium 1.08 - 1.30 mmol/L 1.24 PTH, Intact 15 - 65 pg/mL 41 Vitamin D 25 Hydroxy 31.0 - 80.0 ng/mL 40.9 MEDICATIONS: Current Outpatient Medications Medication Sig coenzyme Q10 (COENZYME Q-10) 100 mg cap capsule Take 1 capsule by mouth twice daily. olmesartan (BENICAR) 20 mg tablet Take 0.5 tablets by mouth once daily. fluticasone-salmeterol (ADVAIR DISKUS) 250-50 mcg/dose inhaler Inhale 1 Puff as instructed twice daily. RINSE AND GARGLE MOUTH WITH WATER AFTER EACH USE. albuterol HFA (PROVENTIL HFA, VENTOLIN HFA) 90 mcg/actuation inhaler Inhale 2 Puffs as instructed every 4 hours as needed for wheezing/shortness of breath. blood sugar diagnostic (ONETOUCH VERIO TEST STRIPS) test strip Test blood sugar(s) 3 times daily. Dx: Type 2 DM - Controlled E11.9 Insulin: No Cholecalciferol, Vitamin D3, 25 mcg (1,000 unit) cap Take 1 capsule by mouth once daily. famotidine (PEPCID) 20 mg tablet Take 1 tablet by mouth once daily. dulaglutide (TRULICITY) 0.75 mg/0.5 mL pen injector Inject 0.75 mg subcutaneously one time a week. Inject dose once per week. Discard Pen After pantoprazole DR (PROTONIX) 40 mg tablet Take 1 tablet by mouth once daily. metFORMIN (GLUCOPHAGE) 500 mg tablet Take 1 tablet by mouth three times daily. ondansetron orally disintegrating (ZOFRAN ODT) 4 mg disintegrating tablet Take 1 tablet by mouth every 8 hours as needed. furosemide (LASIX) 20 mg tablet Take 1 tablet by mouth once daily. rosuvastatin (CRESTOR) 10 mg tablet Take 1 tablet by mouth daily at bedtime. lidocaine (LIDODERM) 5 % Apply 1 Patch as directed every 12 hours. Remove old patch prior to placing new patch. Location: back Fluorouracil (EFUDEX) 5 % cream Apply to affected areas twice daily for 2-4 weeks or until red blistering reaction occurs. montelukast (SINGULAIR) 10 mg tablet Take 1 tablet by mouth daily at bedtime. fluticasone-salmeterol (ADVAIR, WIXELA) 250-50 mcg/dose Inhale 1 Puff as instructed twice daily. (Patient not taking: Reported on 02/28/2022 ) blood sugar diagnostic (BLOOD GLUCOSE TEST) test strip Test blood sugar(s) 3 times daily. Dx: Type 2 DM - Controlled E11.9 Insulin: No: True Matrix Lancets lancets Test blood sugar(s) 3 times daily. Dx: Type 2 DM - Controlled E11.9 Insulin: No True matrix albuterol HFA (VENTOLIN HFA) 90 mcg/actuation inhaler Inhale 2 Puffs as instructed every 4 hours as needed. clobetasol (TEMOVATE) 0.05 % cream apply to rash on legs and hands twice daily 5 days a week as needed. Apply twice daily as needed, up to 21 days per month. Avoid application to the face, armpits, groin. citalopram (CELEXA) 20 mg tablet Take 1 tablet by mouth once daily. buPROPion XL (WELLBUTRIN XL) 150 mg 24 hr tablet Take 150 mg by mouth once daily. Blood-Glucose Meter monitoring kit Glucose Meter of Choice - Kit - Dx: Type 2 DM - Controlled E11.9 COMPOUNDED PRESCRIPTION Tens unit DX: DDD of neck and lumbar spine aspirin, enteric coated (ASPIRIN, ENTERIC COATED) 81 mg EC tablet Take 81 mg by mouth once daily. traZODone 100 mg tablet Take 100 mg by mouth daily at bedtime. One or two busPIRone 5 mg tablet Take 5 mg by mouth twice daily. Current Facility-Administered Medications Medication Dose Route Frequency Aminolevulinic Acid HCl 20 % soln 1 Each 1 Each TOPICAL PRN ALLERGIES: ALLERGIES Allergen Reactions Metronidazole Anaphylaxis Adhesive Other: See Comments redness with bandaids Augmentin [Amoxicil* Other: See Comments Thrush/yeast infection Ciprofloxacin Rash Clindamycin Swelling throat swelling Penicillins Intolerance Yeast infections Prozac [Fluoxetine * Rash Sulfa Dyne Rash PAST MEDICAL HISTORY Diagnosis Date Back pain on SSI for this Carpal tunnel 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 Depression Diabetes mellitus (HCC) Diverticulitis Dysphagia Emphysema of lung (HCC) 05/15/2015 GI bleed History of squamous cell carcinoma 04/2016 Right nasal tip Hyperlipidemia Lung nodules Pulmonary HTN (HCC) 12/08/2017 mild Squamous cell skin cancer, nasal tip 06/24/2016 Tobacco abuse 03/28/2017 PAST SURGICAL HISTORY Procedure Laterality Date ADDTL NECK SPINE FUSION 09/2004 CHOLECYSTECTOMY 2000 COLONOSCOPY 1982 COLONOSCOPY FLX DX W/COLLJ SPEC WHEN PFRMD 09/01/12 COLONOSCOPY FLX DX W/COLLJ SPEC WHEN PFRMD Done in [place] unable to obtain COLONOSCOPY FLX DX W/COLLJ SPEC WHEN PFRMD 11/17/2013 Colonoscopy COLONOSCOPY FLX DX W/COLLJ SPEC WHEN PFRMD 12/24/2017 Colonoscopy ESOPHAGOGASTRODUODENOSCOPY TRANSORAL DIAGNOSTIC 06/04/2013 EGD ESOPHAGOGASTRODUODENOSCOPY TRANSORAL DIAGNOSTIC 05/17/15 EGD ESOPHAGOGASTRODUODENOSCOPY TRANSORAL DIAGNOSTIC 12/24/2017 EGD HYSTERECTOMY HX 1984 Pelvic pain & DUB NEUROPLASTY &/TRANSPOS MEDIAN NRV CARPAL TUNNE Bilateral 08/27/2018 Bilateral carpal tunnel release OOPHORECTOMY PARTIAL/TOTAL UNI/BI 1985 Bilateral PAST SURGICAL HISTORY OF removed tissue nose for SCC PAST SURGICAL HISTORY OF 10/13/2017 Excision nasal mass, Dr Marbin Harris REMOVE TONSIL AND ADENOI UNDER AGE 14 SLING OPER STRES INCONTINENCE 2001 FAMILY HISTORY Problem Relation Age of Onset Colon Polyps Mother COPD Mother Colon Cancer Mother Colon Polyps Father Heart Father Colon Polyps Sister Hypertension Sister Colon Polyps Brother other (Parkinsonism [Other]) Brother Colon Polyps Brother Ischemic Heart Disease Brother Diabetes Maternal Grandfather Social History Tobacco Use Smoking status: Current Every Day Smoker Packs/day: 0.50 Years: 35.00 Pack years: 17.50 Types: Cigarettes Start date: 1975 Smokeless tobacco: Never Used Tobacco comment: Former one ppd smoker Substance Use Topics Alcohol use: Never Drug use: No Reviewed current medications, allergies, past medical history, surgical history, family history and social history today. REVIEW OF SYSTEMS All other reviewed and negative other than HPI. HEALTH MAINTENANCE: Reviewed health maintenance issues today and recommended the following in detail. MAMMOGRAM due on 03/29/2022 VITALS: BP 110/70 Pulse 69 Resp 16 Wt 69.9 kg (154 lb) SpO2 97% BMI 28.86 kg/m Last 4 Encounter Wt Readings: Date: Wt: 02/28/2022 70.8 kg (156 lb) 02/28/2022 70.8 kg (156 lb) 01/28/2022 72.6 kg (160 lb) 01/24/2022 72.1 kg (159 lb) PHYSICAL EXAMINATION: General appearance: Well appearing, alert, in no acute distress, well-hydrated, well nourished. Skin: has a blister like lesion on finger on right hand for three days. Red flags for re-assessment reviewed with patient in detail. Head: Normocephalic, no masses, lesions, tenderness or abnormalities Lungs: Lungs clear to auscultation. No wheezing, rhonchi, rales Heart: RRR without murmur, gallop, or rubs. No ectopy Abdomen: Normal abdominal exam, Abdomen soft, non-tender. Bowel sounds normal. No masses, organomegaly Extremities: No deformities, edema, skin discoloration, clubbing or cyanosis. Good capillary refill. Musculoskeletal: No joint swelling, deformity, or tenderness ASSESSMENT/PLAN: 1. Type 2 diabetes mellitus with diabetic neuropathy, without long-term current use of insulin (HCC) - ICD9: 250.60, 357.2, ICD10: E11.40 (primary diagnosis) - continue meds. Call sugars in one week. Labs in two months with follow up after. - HGB A1C 2. Mixed hyperlipidemia - ICD9: 272.2, ICD10: E78.2 - good control - Continue current medication. 3. Pulmonary HTN (HCC) - ICD9: 416.8, ICD10: I27.20 - stable. 4. Hyperkalemia - ICD9: 276.7, ICD10: E87.5 -recheck labs. 5. Screening breast examination - ICD9: V76.10, ICD10: Z12.39 - Follow up for annual exam in one year. - CARLOS EDUARDO SCREENING Bebeto Petersen documented in this encounter [facility] 03-06-2022 Miscellaneous Notes [facility] calling to question Benicar rx, one half tablet daily. Computer shows Dr Petersen decreased her dose to half pill on 02/04/2022 due to elevated potassium. Patient phones requesting refills as follows: Pending Prescriptions Disp Refills COENZYME Q10 100 MG CAPSULE 60 capsule 11 Sig: Take 1 capsule by mouth twice daily. KEVAN: No OLMESARTAN 20 MG TABLET 30 tablet 5 Sig: Take 0.5 tablets by mouth once daily. KEVAN: No TALIA 01/24/22 NOV 03/12/22 Please review and advise. Jeremiah Galindo LPN documented in this encounter [facility] 02-28-2022 Instructions Barbie Ruiz MD - 02/28/2022 11:18 AM EDT Low dose chest CT for cancer screening to be done at [facility] documented in this encounter [facility] 02-28-2022 History of Presen t illness Narrative Images from the original note were not included. . [facility] Note Patient name: Shantel Prasad PCP: Bebeto Petersen MD CC: Asthma HPI: Shantel Prasad 66 year old female smoker with PMH significant for DM2, GERD, PAH (RV systolic pressure 36 mmHg), stable pulmonary nodularity (bilateral subcentimeter pulmonary nodules largest 6 mm, 2018) and asthma, last seen in pulmonary clinic in 2019. Last spirometry consistent with restriction rather than obstruction although this was not confirmed by lung volumes. She was diagnosed with asthma in adulthood. She has significant allergies although never formally treated with immunotherapy. Her therapy consists of Advair, albuterol as needed and Singulair. Her prescription for her Advair over a year ago and was not refilled until she was seen in pulmonary clinic since its been over 2 years. Despite lack of inhaled therapy, she has not had significant limiting dyspnea on exertion, coughing, chest pain. Advair does seem to open up her airways and assist with her breathing. She is having significant issues with her acid reflux despite H2 sharif and proton pump inhibitor. Significant waterbrash especially at night which precipitates wheezing. She had quit smoking for some time but recently restarted and is currently smoking approximately half a pack a day. She is a former 1 pack a day smoker for over 30 years. DATA: RESPIRATORY THERAPY ORAL EXHALED NITRIC OXIDE SERVICE DATE: 02/28/2022 SERVICE TIME: 10:27 AM Oral Exhaled Nitric Oxide measurement: 5.0 (ppb) Normal: Adult 5-20 ppb, pediatric (<12 years) 5-15 ppb PFT: Review of pulmonary function test shows small airways obstruction PFT 08/2019: Six Minute Walk Test for This Encounter Oxygen Device Liters FIO2 SpO2% HR Activity Feet Speed (MPH) Flag R/A 97 64 Resting R/A 93 90 Six Minute Walk 1125 2.1 R/A 97 79 Recovery 1 minute post R/A 98 71 Recovery 2 minute post R/A 98 67 Recovery 3 minute post Labs: Component Ref Range & Units 3 wk ago Normalized Calcium 1.08 - 1.30 mmol/L 1.20 Calcium Ionized, Whole Blood 1.08 - 1.30 mmol/L 1.24 Component Ref Range & Units 1 mo ago (01/24/22) WBC 3.70 - 11.00 k/uL 8.13 RBC 3.90 - 5.20 m/uL 4.08 Hemoglobin 11.5 - 15.5 g/dL 12.8 Hematocrit 36.0 - 46.0 % 38.5 MCV 80.0 - 100.0 fL 94.4 MCH 26.0 - 34.0 pg 31.4 MCHC 30.5 - 36.0 g/dL 33.2 RDW-CV 11.5 - 15.0 % 13.0 Platelet Count 150 - 400 k/uL 237 MPV 9.0 - 12.7 fL 10.7 Neut% % 47.2 Abs Neut 1.45 - 7.50 k/uL 3.83 Lymph% % 46.4 Abs Lymph 1.00 - 4.00 k/uL 3.77 [place]% % 5.0 Abs [place] <0.87 k/uL 0.41 Eosin% % 0.7 Abs Eosin <0.46 k/uL 0.06 Baso% % 0.5 Abs Baso <0.11 k/uL 0.04 Immature Gran % % 0.2 Abs Immature Gran <0.10 k/uL <0.03 NRBC /100 WBC 0.0 Absolute nRBC <0.01 k/uL <0.01 Diff Type Auto No eosinophilia Imaging / Diagnostic Studies: DATE OF EXAM: Jan 24 2022 5:36PM WOX [id number] - XR CHEST 2V FRONTAL/LAT / PROCEDURE REASON: Rib pain EXAMINATION: CHEST RADIOGRAPH (2 VIEW FRONTAL & LATERAL) CLINICAL HISTORY: Rib pain MQ: [id number] EXAM DATE/TIME: 01/24/2022 5:36 PM COMPARISON: Comparison is made to prior chest dated 28 May 2019 RESULT: Lines, tubes, and devices: None. Lungs and pleura: Chronic interstitial lung changes with a reticular nodular interstitial pattern and lingular and bibasilar fibrotic scarring is stable. Grossly stable density in the right lower lung. There is no focal consolidation or acute pleural process. There is no vascular redistribution to suggest pulmonary edema. Cardiomediastinal silhouette: Normal cardiomediastinal silhouette. Bones and soft tissues: Bony structures are stable with degenerative change and mild scoliotic curvature. IMPRESSION: Stable chest. No acute radiographic abnormality. Chest CT 09/21/2019: IMPRESSION: No acute pulmonary process is identified. Stable subcentimeter pulmonary nodules, most likely benign, given stability for over 2 years. No follow-up examination is required. No lymphadenopathy is seen within the chest. 1.8 cm cyst within the upper pole of the left kidney. Nonspecific periportal lymphadenopathy. I personally reviewed images above and agree with the assessments PAST MEDICAL HISTORY Diagnosis Date Back pain on SSI for this Carpal tunnel 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 Depression Diabetes mellitus (HCC) Diverticulitis Dysphagia Emphysema of lung (HCC) 05/15/2015 GI bleed History of squamous cell carcinoma 04/2016 Right nasal tip Hyperlipidemia Lung nodules Pulmonary HTN (HCC) 12/08/2017 mild Squamous cell skin cancer, nasal tip 06/24/2016 Tobacco abuse 03/28/2017 ALLERGIES Allergen Reactions Metronidazole Anaphylaxis Adhesive Other: See Comments redness with bandaids Augmentin [Amoxicil* Other: See Comments Thrush/yeast infection Ciprofloxacin Rash Clindamycin Swelling throat swelling Penicillins Intolerance Yeast infections Prozac [Fluoxetine * Rash Sulfa Dyne Rash blood sugar diagnostic (FortumoTOUCH VERIO TEST STRIPS) test strip Test blood sugar(s) 3 times daily. Dx: Type 2 DM - Controlled E11.9 Insulin: No Cholecalciferol, Vitamin D3, 25 mcg (1,000 unit) cap Take 1 capsule by mouth once daily. olmesartan (BENICAR) 20 mg tablet Take 0.5 tablets by mouth once daily. famotidine (PEPCID) 20 mg tablet Take 1 tablet by mouth once daily. dulaglutide (TRULICITY) 0.75 mg/0.5 mL pen injector Inject 0.75 mg subcutaneously one time a week. Inject dose once per week. Discard Pen After pantoprazole DR (PROTONIX) 40 mg tablet Take 1 tablet by mouth once daily. metFORMIN (GLUCOPHAGE) 500 mg tablet Take 1 tablet by mouth three times daily. ondansetron orally disintegrating (ZOFRAN ODT) 4 mg disintegrating tablet Take 1 tablet by mouth every 8 hours as needed. furosemide (LASIX) 20 mg tablet Take 1 tablet by mouth once daily. rosuvastatin (CRESTOR) 10 mg tablet Take 1 tablet by mouth daily at bedtime. lidocaine (LIDODERM) 5 % Apply 1 Patch as directed every 12 hours. Remove old patch prior to placing new patch. Location: back Fluorouracil (EFUDEX) 5 % cream Apply to affected areas twice daily for 2-4 weeks or until red blistering reaction occurs. montelukast (SINGULAIR) 10 mg tablet Take 1 tablet by mouth daily at bedtime. coenzyme Q10 (COENZYME Q-10) 100 mg cap capsule Take 1 capsule by mouth twice daily. blood sugar diagnostic (BLOOD GLUCOSE TEST) test strip Test blood sugar(s) 3 times daily. Dx: Type 2 DM - Controlled E11.9 Insulin: No: True Matrix Lancets lancets Test blood sugar(s) 3 times daily. Dx: Type 2 DM - Controlled E11.9 Insulin: No True matrix albuterol HFA (VENTOLIN HFA) 90 mcg/actuation inhaler Inhale 2 Puffs as instructed every 4 hours as needed. clobetasol (TEMOVATE) 0.05 % cream apply to rash on legs and hands twice daily 5 days a week as needed. Apply twice daily as needed, up to 21 days per month. Avoid application to the face, armpits, groin. citalopram (CELEXA) 20 mg tablet Take 1 tablet by mouth once daily. buPROPion XL (WELLBUTRIN XL) 150 mg 24 hr tablet Take 150 mg by mouth once daily. Blood-Glucose Meter monitoring kit Glucose Meter of Choice - Kit - Dx: Type 2 DM - Controlled E11.9 COMPOUNDED PRESCRIPTION Tens unitDX: DDD of neck and lumbar spine aspirin, enteric coated (ASPIRIN, ENTERIC COATED) 81 mg EC tablet Take 81 mg by mouth once daily. traZODone 100 mg tablet Take 100 mg by mouth daily at bedtime. One or two busPIRone 5 mg tablet Take 5 mg by mouth twice daily. fluticasone-salmeterol (ADVAIR DISKUS) 250-50 mcg/dose inhaler Inhale 1 Puff as instructed twice daily. RINSE AND GARGLE MOUTH WITH WATER AFTER EACH USE. albuterol HFA (PROVENTIL HFA, VENTOLIN HFA) 90 mcg/actuation inhaler Inhale 2 Puffs as instructed every 4 hours as needed for wheezing/shortness of breath. fluticasone-salmeterol (ADVAIR, WIXELA) 250-50 mcg/dose Inhale 1 Puff as instructed twice daily. Social History Tobacco Use Smoking status: Current Every Day Smoker Packs/day: 0.50 Years: 35.00 Pack years: 17.50 Types: Cigarettes Start date: 1975 Smokeless tobacco: Never Used Tobacco comment: Former one ppd smoker Substance Use Topics Alcohol use: Never Drug use: No Pets: None. 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 [employer] FAMILY HISTORY Problem Relation Age of Onset Colon Polyps Mother COPD Mother Colon Cancer Mother Colon Polyps Father Heart Father Colon Polyps Sister Hypertension Sister Colon Polyps Brother other (Parkinsonism [Other]) Brother Colon Polyps Brother Ischemic Heart Disease Brother Diabetes Maternal Grandfather PAST SURGICAL HISTORY Procedure Laterality Date ADDTL NECK SPINE FUSION 09/2004 CHOLECYSTECTOMY 2000 COLONOSCOPY 1982 COLONOSCOPY FLX DX W/COLLJ SPEC WHEN PFRMD 09/01/12 COLONOSCOPY FLX DX W/COLLJ SPEC WHEN PFRMD Done in [place] unable to obtain COLONOSCOPY FLX DX W/COLLJ SPEC WHEN PFRMD 11/17/2013 Colonoscopy COLONOSCOPY FLX DX W/COLLJ SPEC WHEN PFRMD 12/24/2017 Colonoscopy ESOPHAGOGASTRODUODENOSCOPY TRANSORAL DIAGNOSTIC 06/04/2013 EGD ESOPHAGOGASTRODUODENOSCOPY TRANSORAL DIAGNOSTIC 05/17/15 EGD ESOPHAGOGASTRODUODENOSCOPY TRANSORAL DIAGNOSTIC 12/24/2017 EGD HYSTERECTOMY HX 1984 Pelvic pain & DUB NEUROPLASTY &/TRANSPOS MEDIAN NRV CARPAL TUNNE Bilateral 08/27/2018 Bilateral carpal tunnel release OOPHORECTOMY PARTIAL/TOTAL UNI/BI 1985 Bilateral PAST SURGICAL HISTORY OF removed tissue nose for SCC PAST SURGICAL HISTORY OF 10/13/2017 Excision nasal mass, Dr Marbin Harris REMOVE TONSIL AND ADENOI UNDER AGE 14 SLING OPER STRES INCONTINENCE 2001 PMH, Social history, family history and surgical history reviewed and updated in EMR REVIEW OF SYSTEMS: CONSTITUTIONAL: No fevers, chills, nightsweats, unintended weight loss HEENT: Denies headaches, nasal congestion/sinus symptoms, problematic allergies CARDIOVASCULAR: No chest pain, palpitations, orthopnea, PND, edema. PULM: See HPI GI: Difficulty swallowing, severe GERD NEURO: No new balance problems, peripheral weakness/paresthesias or numbness of concern. MUSC-SKEL: No new joint pain, swelling, or erythema. PSY: No concerns regarding depression, anxiety INTEGUMENTARY: No new skin changes or rashes. Skin sensitivity PHYSICAL EXAMINATION: Pulse 67 Resp 14 Ht 5' 1.25 (1.56m) Wt 156 lb (70.8kg) SpO2 94% BMI 29.23 kg/(m^2). General Appearance: Age appropriate female NAD Skin: Skin color, texture, turgor normal, no suspicious rashes or lesions. Head: Normocephalic, no masses, lesions, tenderness or abnormalities. Eyes: Sclera, conjunctiva normal Oropharynx: No oral lesions or thrush or erythema Neck: No jugular venous distention, no masses Lungs: Not labored, normal to percussion, no wheezes or crackles Heart: Regular rate and rhythm, no murmurs or increased P2 component Extremities: No edema or clubbing Musculoskeletal: No joint swelling, deformity, or tenderness. Assessment/Plan: 1. Mild persistent asthma, uncomplicated -Despite smoking history, she does not have evidence of COPD -Refilled Advair and albuterol -Smoking cessation recommended 2. Lung nodules -Pulmonary nodularity stable for 2 years which is consistent with benign process but she is a current smoker so she qualifies for low-dose chest CT for cancer screening -She prefers imaging to be performed at [facility] 3. Cigarette smoker -Current one half a pack a day, former 1 pack a day smoker for over 30 years -No obvious adverse sequelae -Smoking cessation recommended 4. GERD -GERD not controlled despite H2 sharif and proton pump inhibitor. This could be contributing to her persistent asthma symptoms -Recommend GI evaluation Barbie Ruiz MD [facility] documented in this encounter [facility] 02-28-2022 Nurse Note Intake information documented in the prior visit with Lata Dhillon RRT, RPFT today. documented in this encounter [facility] 02-28-2022 Procedure note Associated Order(s): NITRIC OXIDE, EXHALED RESPIRATORY THERAPY ORAL EXHALED NITRIC OXIDE SERVICE DATE: 02/28/2022 SERVICE TIME: 10:27 AM Oral Exhaled Nitric Oxide measurement: 5.0 (ppb) Normal: Adult 5-20 ppb, pediatric (<12 years) 5-15 ppb High Normal / Increased: Adult 20-35 ppb, pediatric (<12 years) 15-25 ppb Moderately raised exhaled Nitric Oxide may indicate underlying inflammation, but note that: Cold and influenza can raise exhaled Nitric Oxide and some patients have higher baseline exhaled Nitric Oxide levels than others. High: Adult >35 ppb, pediatric (<12 years) >25 ppb Indicative of ongoing eosinophilic inflammation. Symptomatic patient likely to respond to steroids. Possible causes (if already on steroids): Poor compliance, recent allergen exposure, steroid dose inadequate, and steroid resistance. Note that not all patients with high exhaled nitric oxide levels display symptoms. Oral Exhaled Nitric Oxide measurement (Previous Encounters) Test Date Oral Exhaled Nitric Oxide (ppb) 02/28/2022 5.0 NAME: Lata Dhillon RRT PATIENT NAME: Shantel Prasad DATE: February 28, 2022 TIME: 10:27 AM documented in this encounter [facility] 02-28-2022 History of Presen t illness Narrative PULM FUNCTION SMARTBLOCK: Provider: Bebeto Petersen MD Assisting Tech: Lata Dhillon RRT Spirometry: 1 Exhaled Nitric Oxide: 1 System: [id number] documented in this encounter [facility] 02-12-2022 History of Presen t illness Narrative Assessment and Plan 1. Type 2 diabetes mellitus without retinopathy (HCC) 2. Type 2 diabetes mellitus with peripheral neuropathy (HCC) -no diabetic retinopathy both eyes 3. Combined form of age-related cataract, both eyes -not visually significant both eyes 4. Asteroid hyalosis of left eye -stable 5. Hypertensive retinopathy, bilateral -tortuous retinal vasculature both eyes 6. 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 I have seen and examined Shantel Prasad. I have discussed the case and the management of this patient's care with the Resident/Fellow, if applicable. I also have reviewed and agree with the assessment and plan as stated above and agree with all of its relevant components. Hector Chaney MD February 12, 2022 2:33 PM documented in this encounter [facility] 02-06-2022 History of Presen t illness Narrative Radiology Service Progress Note PATIENT NAME: Shantel Prasad DATE OF SERVICE: February 06, 2022 TIME: 12:31 PM PATIENT IDENTITY VERIFICATION COMPLETED USING TWO (2) IDENTIFIERS: Name and Date of confirmed by patient verbally. FALL SCREENING: Has the patient had 2 falls in the last year or 1 fall with injury or currently using an Ambulatory Assistive Device (Walker, Cane, Wheelchair, Crutches, etc.)? No PATIENT GENDER DATA: Female. status: Unknown status: NO. PATIENT RELEVANT IMPLANT DATA REVIEWED: Not Applicable RADIOLOGY DEPARTMENT: Ultrasound PERIPHERAL IV DATA: Not applicable SIGNED BY: Evelia Cevallos RDMS RVT February 06, 2022 12:31 PM documented in this encounter [facility] 02-05-2022 Miscellaneous Notes Patient phones requesting refills as follows: Pending Prescriptions Disp Refills CHOLECALCIFEROL (VITAMIN D3) 25 MCG (1,000 UNIT) CAPSULE 90 capsule 3 Sig: Take 1 capsule by mouth once daily. KEVAN: No TALIA 01/24/22 NOV 03/12/22 Please review and advise. Jeremiah Galindo LPN documented in this encounter [facility] 02-04-2022 Miscellaneous Notes Patient notified and verbalized understanding. Theresa Hancock Ma One lab, vit d is still pending, however, potassium is still up. Lets cut benicar in half to 10 mg a day which can cause elevated potassium. Recheck k and bp in two weeks documented in this encounter [facility] documented as of this encounter (statuses as of 02/04/2022) [facility] History of Past illness Narrative* Problem Noted Date Resolved Date Numbness and tingling of both lower extremities 04/20/2019 03/26/2021 Paresthesia 04/20/2019 03/26/2021 Controlled type 2 diabetes m ellitus without complication, without long-term current use of insulin 03/28/2017 11/28/2017 Family history of ischemic heart disease 016 12/05/2017 BPPV (benign paroxysmal positional vertigo) 06/201612/05/2017 Postconcussion syndrome 10/30/2015 01/25/20 22 Memory loss 10/30/2015 01/24/2022 Pill dysphagia 05/17/2015 01/24/2022 Status post cervical spinal fusion 05/15/2015 12/05/2017 Emphysema of lung 05/15/2015 03/26/2021 Hypotension 05/15/2015 07/19/2015 Neoplasm of uncertain behavior of skin 3 11/28/2017 Atypical nevus of abdominal wall 12/09/2012 12/05/2017 Irritated//Inflamed Seborrheic Keratoses 013 12/05/2017 Dizziness and giddiness 08/24/2012 12/05/19 18 Hyperlipidemia 03/10/2017 Diverticulitis 11/28/2017 Diabetes mellitus 07/19/2015 documented as of this encounter (statuses as of 02/04/2022) [facility] of Past illness Narrative* Problem Noted Date Resolved Date Numbness and tingling of both lower extremities 04/20/2019 03/26/2021 Paresthesia 04/20/2019 03/26/2021 Controlled type 2 diabetes m ellitus without complication, without long-term current use of insulin 03/28/2017 11/28/2017 Family history of ischemic heart disease 016 12/05/2017 BPPV (benign paroxysmal positional vertigo) 0 06/201612/05/2017 Postconcussion syndrome 10/30/2015 01/25/20 22 Memory loss 10/30/2015 01/24/2022 Pill dysphagia 05/17/2015 01/24/2022 Status post cervical spinal fusion 05/15/2015 12/05/2017 Emphysema of lung 05/15/2015 03/26/2021 Hypotension 05/15/2015 07/19/2015 Neoplasm of uncertain behavior of skin 3 11/28/2017 Atypical nevus of abdominal wall 12/09/2012 12/05/2017 Irritated//Inflamed Seborrheic Keratoses 013 12/05/2017 Dizziness and giddiness 08/24/2012 12/05/19 18 Hyperlipidemia 03/10/2017 Diverticulitis 11/28/2017 Diabetes mellitus 07/19/2015 documented as of this encounter (statuses as of 02/05/2022) [facility] of [facility] Narrative* Problem Noted Date Resolved Date Numbness and tingling of both lower extremities 04/20/2019 03/26/2021 Paresthesia 04/20/2019 03/26/2021 Controlled type 2 diabetes m ellitus without complication, without long-term current use of insulin 03/28/2017 11/28/2017 Family history of ischemic heart disease 016 12/05/2017 BPPV (benign paroxysmal positional vertigo) 06/201612/05/2017 Postconcussion syndrome 10/30/2015 01/25/20 22 Memory loss 10/30/2015 01/24/2022 Pill dysphagia 05/17/2015 01/24/2022 Status post cervical spinal fusion 05/15/2015 12/05/2017 Emphysema of lung 05/15/2015 03/26/2021 Hypotension 05/15/2015 07/19/2015 Neoplasm of uncertain behavior of skin 3 11/28/2017 Atypical nevus of abdominal wall 12/09/2012 12/05/2017 Irritated//Inflamed Seborrheic Keratoses 013 12/05/2017 Dizziness and giddiness 08/24/2012 12/05/19 18 Hyperlipidemia 03/10/2017 Diverticulitis 11/28/2017 Diabetes mellitus 07/19/2015 documented as of this encounter (statuses as of 02/07/2022) [facility] Narrative* Problem Noted Date Resolved Date Numbness and tingling of both lower extremities 04/20/2019 03/26/2021 Paresthesia 04/20/2019 03/26/2021 Controlled type 2 diabetes m ellitus without complication, without long-term current use of insulin 03/28/2017 11/28/2017 Family history of ischemic heart disease 016 12/05/2017 BPPV (benign paroxysmal positional vertigo) 06/201612/05/2017 Postconcussion syndrome 10/30/2015 01/25/20 22 Memory loss 10/30/2015 01/24/2022 Pill dysphagia 05/17/2015 01/24/2022 Status post cervical spinal fusion 05/15/2015 12/05/2017 Emphysema of lung 05/15/2015 03/26/2021 Hypotension 05/15/2015 07/19/2015 Neoplasm of uncertain behavior of skin 3 11/28/2017 Atypical nevus of abdominal wall 12/09/2012 12/05/2017 Irritated//Inflamed Seborrheic Keratoses 013 12/05/2017 Dizziness and giddiness 08/24/2012 12/05/19 18 Hyperlipidemia 03/10/2017 Diverticulitis 11/28/2017 Diabetes mellitus 07/19/2015 documented as of this encounter (statuses as of 02/12/2022) [facility] Narrative* Problem Noted Date Resolved Date Numbness and tingling of both lower extremities 04/20/2019 03/26/2021 Paresthesia 04/20/2019 03/26/2021 Controlled type 2 diabetes m ellitus without complication, without long-term current use of insulin 03/28/2017 11/28/2017 Family history of ischemic heart disease 016 12/05/2017 BPPV (benign paroxysmal positional vertigo) 06/201612/05/2017 Postconcussion syndrome 10/30/2015 01/25/20 22 Memory loss 10/30/2015 01/24/2022 Pill dysphagia 05/17/2015 01/24/2022 Status post cervical spinal fusion 05/15/2015 12/05/2017 Emphysema of lung 05/15/2015 03/26/2021 Hypotension 05/15/2015 07/19/2015 Neoplasm of uncertain behavior of skin 3 11/28/2017 Atypical nevus of abdominal wall 12/09/2012 12/05/2017 Irritated//Inflamed Seborrheic Keratoses 013 12/05/2017 Dizziness and giddiness 08/24/2012 12/05/19 18 Hyperlipidemia 03/10/2017 Diverticulitis 11/28/2017 Diabetes mellitus 07/19/2015 documented as of this encounter (statuses as of 02/28/2022) [facility] Narrative* Problem Noted Date Resolved Date Numbness and tingling of both lower extremities 04/20/2019 03/26/2021 Paresthesia 04/20/2019 03/26/2021 Controlled type 2 diabetes m ellitus without complication, without long-term current use of insulin 03/28/2017 11/28/2017 Family history of ischemic heart disease 016 12/05/2017 BPPV (benign paroxysmal positional vertigo) 06/201612/05/2017 Postconcussion syndrome 10/30/2015 01/25/20 22 Memory loss 10/30/2015 01/24/2022 Pill dysphagia 05/17/2015 01/24/2022 Status post cervical spinal fusion 05/15/2015 12/05/2017 Emphysema of lung 05/15/2015 03/26/2021 Hypotension 05/15/2015 07/19/2015 Neoplasm of uncertain behavior of skin 3 11/28/2017 Atypical nevus of abdominal wall 12/09/2012 12/05/2017 Irritated//Inflamed Seborrheic Keratoses 013 12/05/2017 Dizziness and giddiness 08/24/2012 12/05/19 18 Hyperlipidemia 03/10/2017 Diverticulitis 11/28/2017 Diabetes mellitus 07/19/2015 documented as of this encounter (statuses as of 02/28/2022) [facility] Narrative* Problem Noted Date Resolved Date Numbness and tingling of both lower extremities 04/20/2019 03/26/2021 Paresthesia 04/20/2019 03/26/2021 Controlled type 2 diabetes m stephanieitus without complication, without long-term current use of insulin 03/28/2017 11/28/2017 Family history of ischemic heart disease 016 12/05/2017 BPPV (benign paroxysmal positional vertigo) 06/201612/05/2017 Postconcussion syndrome 10/30/2015 01/25/20 22 Memory loss 10/30/2015 01/24/2022 Pill dysphagia 05/17/2015 01/24/2022 Status post cervical spinal fusion 05/15/2015 12/05/2017 Emphysema of lung 05/15/2015 03/26/2021 Hypotension 05/15/2015 07/19/2015 Neoplasm of uncertain behavior of skin 3 11/28/2017 Atypical nevus of abdominal wall 12/09/2012 12/05/2017 Irritated//Inflamed Seborrheic Keratoses 013 12/05/2017 Dizziness and giddiness 08/24/2012 12/05/19 18 Hyperlipidemia 03/10/2017 Diverticulitis 11/28/2017 Diabetes mellitus 07/19/2015 documented as of this encounter (statuses as of 03/06/2022) [facility] [facility] Narrative* Problem Noted Date Resolved Date Numbness and tingling of both lower extremities 04/20/2019 03/26/2021 Paresthesia 04/20/2019 03/26/2021 Controlled type 2 diabetes m celia without complication, without long-term current use of insulin 03/28/2017 11/28/2017 Family history of ischemic heart disease 016 12/05/2017 BPPV (benign paroxysmal positional vertigo) 06/201612/05/2017 Postconcussion syndrome 10/30/2015 01/25/20 22 Memory loss 10/30/2015 01/24/2022 Pill dysphagia 05/17/2015 01/24/2022 Status post cervical spinal fusion 05/15/2015 12/05/2017 Emphysema of lung 05/15/2015 03/26/2021 Hypotension 05/15/2015 07/19/2015 Neoplasm of uncertain behavior of skin 3 11/28/2017 Atypical nevus of abdominal wall 12/09/2012 12/05/2017 Irritated//Inflamed Seborrheic Keratoses 013 12/05/2017 Dizziness and giddiness 08/24/2012 12/05/19 18 Hyperlipidemia 03/10/2017 Diverticulitis 11/28/2017 Diabetes mellitus 07/19/2015 documented as of this encounter (statuses as of 03/12/2022) [facility] Past illness Narrative* Problem Noted Date Resolved Date Numbness and tingling of both lower extremities 04/20/2019 03/26/2021 Paresthesia 04/20/2019 03/26/2021 Controlled type 2 diabetes m ellitus without complication, without long-term current use of insulin 03/28/2017 11/28/2017 Family history of ischemic heart disease 016 12/05/2017 BPPV (benign paroxysmal positional vertigo) 06/201612/05/2017 Postconcussion syndrome 10/30/2015 01/25/20 22 Memory loss 10/30/2015 01/24/2022 Pill dysphagia 05/17/2015 01/24/2022 Status post cervical spinal fusion 05/15/2015 12/05/2017 Emphysema of lung 05/15/2015 03/26/2021 Hypotension 05/15/2015 07/19/2015 Neoplasm of uncertain behavior of skin 3 11/28/2017 Atypical nevus of abdominal wall 12/09/2012 12/05/2017 Irritated//Inflamed Seborrheic Keratoses 013 12/05/2017 Dizziness and giddiness 08/24/2012 12/05/19 18 Hyperlipidemia 03/10/2017 Diverticulitis 11/28/2017 Diabetes mellitus 07/19/2015 documented as of this encounter (statuses as of 03/13/2022) [facility] illness Narrative* Problem Noted Date Resolved Date Numbness and tingling of both lower extremities 04/20/2019 03/26/2021 Paresthesia 04/20/2019 03/26/2021 Controlled type 2 diabetes m ellitus without complication, without long-term current use of insulin 03/28/2017 11/28/2017 Family history of ischemic heart disease 016 12/05/2017 BPPV (benign paroxysmal positional vertigo) 06/201612/05/2017 Postconcussion syndrome 10/30/2015 01/25/20 22 Memory loss 10/30/2015 01/24/2022 Pill dysphagia 05/17/2015 01/24/2022 Status post cervical spinal fusion 05/15/2015 12/05/2017 Emphysema of lung 05/15/2015 03/26/2021 Hypotension 05/15/2015 07/19/2015 Neoplasm of uncertain behavior of skin 3 11/28/2017 Atypical nevus of abdominal wall 12/09/2012 12/05/2017 Irritated//Inflamed Seborrheic Keratoses 013 12/05/2017 Dizziness and giddiness 08/24/2012 12/05/19 18 Hyperlipidemia 03/10/2017 Diverticulitis 11/28/2017 Diabetes mellitus 07/19/2015 documented as of this encounter (statuses as of 03/14/2022) [facility] Narrative* Problem Noted Date Resolved Date Numbness and tingling of both lower extremities 04/20/2019 03/26/2021 Paresthesia 04/20/2019 03/26/2021 Controlled type 2 diabetes m ellitus without complication, without long-term current use of insulin 03/28/2017 11/28/2017 Family history of ischemic heart disease 016 12/05/2017 BPPV (benign paroxysmal positional vertigo) 06/201612/05/2017 Postconcussion syndrome 10/30/2015 01/25/20 22 Memory loss 10/30/2015 01/24/2022 Pill dysphagia 05/17/2015 01/24/2022 Status post cervical spinal fusion 05/15/2015 12/05/2017 Emphysema of lung 05/15/2015 03/26/2021 Hypotension 05/15/2015 07/19/2015 Neoplasm of uncertain behavior of skin 3 11/28/2017 Atypical nevus of abdominal wall 12/09/2012 12/05/2017 Irritated//Inflamed Seborrheic Keratoses 013 12/05/2017 Dizziness and giddiness 08/24/2012 12/05/19 18 Hyperlipidemia 03/10/2017 Diverticulitis 11/28/2017 Diabetes mellitus 07/19/2015 documented as of this encounter (statuses as of 03/15/2022) [facility] Narrative* Problem Noted Date Resolved Date Numbness and tingling of both lower extremities 04/20/2019 03/26/2021 Paresthesia 04/20/2019 03/26/2021 Controlled type 2 diabetes m celia without complication, without long-term current use of insulin 03/28/2017 11/28/2017 Family history of ischemic heart disease 016 12/05/2017 BPPV (benign paroxysmal positional vertigo) 06/201612/05/2017 Postconcussion syndrome 10/30/2015 01/25/20 22 Memory loss 10/30/2015 01/24/2022 Pill dysphagia 05/17/2015 01/24/2022 Status post cervical spinal fusion 05/15/2015 12/05/2017 Emphysema of lung 05/15/2015 03/26/2021 Hypotension 05/15/2015 07/19/2015 Neoplasm of uncertain behavior of skin 3 11/28/2017 Atypical nevus of abdominal wall 12/09/2012 12/05/2017 Irritated//Inflamed Seborrheic Keratoses 013 12/05/2017 Dizziness and giddiness 08/24/2012 12/05/19 18 Hyperlipidemia 03/10/2017 Diverticulitis 11/28/2017 Diabetes mellitus 07/19/2015 documented as of this encounter (statuses as of 03/19/2022) [facility] Narrative* Problem Noted Date Resolved Date Numbness and tingling of both lower extremities 04/20/2019 03/26/2021 Paresthesia 04/20/2019 03/26/2021 Controlled type 2 diabetes m celai without complication, without long-term current use of insulin 03/28/2017 11/28/2017 Family history of ischemic heart disease 016 12/05/2017 BPPV (benign paroxysmal positional vertigo) 06/201612/05/2017 Postconcussion syndrome 10/30/2015 01/25/20 22 Memory loss 10/30/2015 01/24/2022 Pill dysphagia 05/17/2015 01/24/2022 Status post cervical spinal fusion 05/15/2015 12/05/2017 Emphysema of lung 05/15/2015 03/26/2021 Hypotension 05/15/2015 07/19/2015 Neoplasm of uncertain behavior of skin 3 11/28/2017 Atypical nevus of abdominal wall 12/09/2012 12/05/2017 Irritated//Inflamed Seborrheic Keratoses 013 12/05/2017 Dizziness and giddiness 08/24/2012 12/05/19 18 Hyperlipidemia 03/10/2017 Diverticulitis 11/28/2017 Diabetes mellitus 07/19/2015 documented as of this encounter (statuses as of 05/03/2022) [facility] Narrative* Problem Noted Date Resolved Date Numbness and tingling of both lower extremities 04/20/2019 03/26/2021 Paresthesia 04/20/2019 03/26/2021 Controlled type 2 diabetes m ellitus without complication, without long-term current use of insulin 03/28/2017 11/28/2017 Family history of ischemic heart disease 016 12/05/2017 BPPV (benign paroxysmal positional vertigo) 06/201612/05/2017 Postconcussion syndrome 10/30/2015 01/25/20 22 Memory loss 10/30/2015 01/24/2022 Pill dysphagia 05/17/2015 01/24/2022 Status post cervical spinal fusion 05/15/2015 12/05/2017 Emphysema of lung 05/15/2015 03/26/2021 Hypotension 05/15/2015 07/19/2015 Neoplasm of uncertain behavior of skin 3 11/28/2017 Atypical nevus of abdominal wall 12/09/2012 12/05/2017 Irritated//Inflamed Seborrheic Keratoses 013 12/05/2017 Dizziness and giddiness 08/24/2012 12/05/19 18 Hyperlipidemia 03/10/2017 Diverticulitis 11/28/2017 Diabetes mellitus 07/19/2015 documented as of this encounter (statuses as of 05/03/2022) [facility] Narrative* Problem Noted Date Resolved Date Numbness and tingling of both lower extremities 04/20/2019 03/26/2021 Paresthesia 04/20/2019 03/26/2021 Controlled type 2 diabetes m ellitus without complication, without long-term current use of insulin 03/28/2017 11/28/2017 Family history of ischemic heart disease 016 12/05/2017 BPPV (benign paroxysmal positional vertigo) 06/201612/05/2017 Postconcussion syndrome 10/30/2015 01/25/20 22 Memory loss 10/30/2015 01/24/2022 Pill dysphagia 05/17/2015 01/24/2022 Status post cervical spinal fusion 05/15/2015 12/05/2017 Emphysema of lung 05/15/2015 03/26/2021 Hypotension 05/15/2015 07/19/2015 Neoplasm of uncertain behavior of skin 3 11/28/2017 Atypical nevus of abdominal wall 12/09/2012 12/05/2017 Irritated//Inflamed Seborrheic Keratoses 013 12/05/2017 Dizziness and giddiness 08/24/2012 12/05/19 18 Hyperlipidemia 03/10/2017 Diverticulitis 11/28/2017 Diabetes mellitus 07/19/2015 documented as of this encounter (statuses as of 05/05/2022) [facility] Narrative* Problem Noted Date Resolved Date Numbness and tingling of both lower extremities 04/20/2019 03/26/2021 Paresthesia 04/20/2019 03/26/2021 Controlled type 2 diabetes m celia without complication, without long-term current use of insulin 03/28/2017 11/28/2017 Family history of ischemic heart disease 016 12/05/2017 BPPV (benign paroxysmal positional vertigo) 06/201612/05/2017 Postconcussion syndrome 10/30/2015 01/25/20 22 Memory loss 10/30/2015 01/24/2022 Pill dysphagia 05/17/2015 01/24/2022 Status post cervical spinal fusion 05/15/2015 12/05/2017 Emphysema of lung 05/15/2015 03/26/2021 Hypotension 05/15/2015 07/19/2015 Neoplasm of uncertain behavior of skin 3 11/28/2017 Atypical nevus of abdominal wall 12/09/2012 12/05/2017 Irritated//Inflamed Seborrheic Keratoses 013 12/05/2017 Dizziness and giddiness 08/24/2012 12/05/19 18 Hyperlipidemia 03/10/2017 Diverticulitis 11/28/2017 Diabetes mellitus 07/19/2015 documented as of this encounter (statuses as of 05/25/2022) [facility] Narrative* Problem Noted Date Resolved Date Numbness and tingling of both lower extremities 04/20/2019 03/26/2021 Paresthesia 04/20/2019 03/26/2021 Controlled type 2 diabetes m ellitus without complication, without long-term current use of insulin 03/28/2017 11/28/2017 Family history of ischemic heart disease 016 12/05/2017 BPPV (benign paroxysmal positional vertigo) 06/201612/05/2017 Postconcussion syndrome 10/30/2015 01/25/20 22 Memory loss 10/30/2015 01/24/2022 Pill dysphagia 05/17/2015 01/24/2022 Status post cervical spinal fusion 05/15/2015 12/05/2017 Emphysema of lung 05/15/2015 03/26/2021 Hypotension 05/15/2015 07/19/2015 Neoplasm of uncertain behavior of skin 3 11/28/2017 Atypical nevus of abdominal wall 12/09/2012 12/05/2017 Irritated//Inflamed Seborrheic Keratoses 013 12/05/2017 Dizziness and giddiness 08/24/2012 12/05/19 18 Hyperlipidemia 03/10/2017 Diverticulitis 11/28/2017 Diabetes mellitus 07/19/2015 documented as of this encounter (statuses as of 06/12/2022) [facility] Narrative* Problem Noted Date Resolved Date Numbness and tingling of both lower extremities 04/20/2019 03/26/2021 Paresthesia 04/20/2019 03/26/2021 Controlled type 2 diabetes m ellitus without complication, without long-term current use of insulin 03/28/2017 11/28/2017 Family history of ischemic heart disease 016 12/05/2017 BPPV (benign paroxysmal positional vertigo) 06/201612/05/2017 Postconcussion syndrome 10/30/2015 01/25/20 22 Memory loss 10/30/2015 01/24/2022 Pill dysphagia 05/17/2015 01/24/2022 Status post cervical spinal fusion 05/15/2015 12/05/2017 Emphysema of lung 05/15/2015 03/26/2021 Hypotension 05/15/2015 07/19/2015 Neoplasm of uncertain behavior of skin 3 11/28/2017 Atypical nevus of abdominal wall 12/09/2012 12/05/2017 Irritated//Inflamed Seborrheic Keratoses 013 12/05/2017 Dizziness and giddiness 08/24/2012 12/05/19 18 Hyperlipidemia 03/10/2017 Diverticulitis 11/28/2017 Diabetes mellitus 07/19/2015 documented as of this encounter (statuses as of 07/05/2022) [facility]arr[facility]* Problem Noted Date Resolved Date Numbness and tingling of both lower extremities 04/20/2019 03/26/2021 Paresthesia 04/20/2019 03/26/2021 Controlled type 2 diabetes m ellitus without complication, without long-term current use of insulin 03/28/2017 11/28/2017 Family history of ischemic heart disease 016 12/05/2017 BPPV (benign paroxysmal positional vertigo) 06/201612/05/2017 Postconcussion syndrome 10/30/2015 01/25/20 22 Memory loss 10/30/2015 01/24/2022 Pill dysphagia 05/17/2015 01/24/2022 Status post cervical spinal fusion 05/15/2015 12/05/2017 Emphysema of lung 05/15/2015 03/26/2021 Hypotension 05/15/2015 07/19/2015 Neoplasm of uncertain behavior of skin 3 11/28/2017 Atypical nevus of abdominal wall 12/09/2012 12/05/2017 Irritated//Inflamed Seborrheic Keratoses 013 12/05/2017 Dizziness and giddiness 08/24/2012 12/05/19 18 Hyperlipidemia 03/10/2017 Diverticulitis 11/28/2017 Diabetes mellitus 07/19/2015 documented as of this encounter (statuses as of 08/09/2022) [facility] Narrative* Problem Noted Date Resolved Date Numbness and tingling of both lower extremities 04/20/2019 03/26/2021 Paresthesia 04/20/2019 03/26/2021 Controlled type 2 diabetes m ellitus without complication, without long-term current use of insulin 03/28/2017 11/28/2017 Family history of ischemic heart disease 016 12/05/2017 BPPV (benign paroxysmal positional vertigo) 06/201612/05/2017 Postconcussion syndrome 10/30/2015 01/25/20 22 Memory loss 10/30/2015 01/24/2022 Pill dysphagia 05/17/2015 01/24/2022 Status post cervical spinal fusion 05/15/2015 12/05/2017 Emphysema of lung 05/15/2015 03/26/2021 Hypotension 05/15/2015 07/19/2015 Neoplasm of uncertain behavior of skin 3 11/28/2017 Atypical nevus of abdominal wall 12/09/2012 12/05/2017 Irritated//Inflamed Seborrheic Keratoses 013 12/05/2017 Dizziness and giddiness 08/24/2012 12/05/19 18 Hyperlipidemia 03/10/2017 Diverticulitis 11/28/2017 Diabetes mellitus 07/19/2015 documented as of this encounter (statuses as of 08/09/2022) [facility] Narrative* Problem Noted Date Resolved Date Numbness and tingling of both lower extremities 04/20/2019 03/26/2021 Paresthesia 04/20/2019 03/26/2021 Controlled type 2 diabetes m celia without complication, without long-term current use of insulin 03/28/2017 11/28/2017 Family history of ischemic heart disease 016 12/05/2017 BPPV (benign paroxysmal positional vertigo) 06/201612/05/2017 Postconcussion syndrome 10/30/2015 01/25/20 22 Memory loss 10/30/2015 01/24/2022 Pill dysphagia 05/17/2015 01/24/2022 Status post cervical spinal fusion 05/15/2015 12/05/2017 Emphysema of lung 05/15/2015 03/26/2021 Hypotension 05/15/2015 07/19/2015 Neoplasm of uncertain behavior of skin 3 11/28/2017 Atypical nevus of abdominal wall 12/09/2012 12/05/2017 Irritated//Inflamed Seborrheic Keratoses 013 12/05/2017 Dizziness and giddiness 08/24/2012 12/05/19 18 Hyperlipidemia 03/10/2017 Diverticulitis 11/28/2017 Diabetes mellitus 07/19/2015 documented as of this encounter (statuses as of 09/11/2022) [facility]* Problem Noted Date Resolved Date Numbness and tingling of both lower extremities 04/20/2019 03/26/2021 Paresthesia 04/20/2019 03/26/2021 Controlled type 2 diabetes m ellitus without complication, without long-term current use of insulin 03/28/2017 11/28/2017 Family history of ischemic heart disease 016 12/05/2017 BPPV (benign paroxysmal positional vertigo) 06/201612/05/2017 Postconcussion syndrome 10/30/2015 01/25/20 22 Memory loss 10/30/2015 01/24/2022 Pill dysphagia 05/17/2015 01/24/2022 Status post cervical spinal fusion 05/15/2015 12/05/2017 Emphysema of lung 05/15/2015 03/26/2021 Hypotension 05/15/2015 07/19/2015 Neoplasm of uncertain behavior of skin 3 11/28/2017 Atypical nevus of abdominal wall 12/09/2012 12/05/2017 Irritated//Inflamed Seborrheic Keratoses 013 12/05/2017 Dizziness and giddiness 08/24/2012 12/05/19 18 Hyperlipidemia 03/10/2017 Diverticulitis 11/28/2017 Diabetes mellitus 07/19/2015 documented as of this encounter (statuses as of 10/25/2022) [facility]* Problem Noted Date Resolved Date Numbness and tingling of both lower extremities 04/20/2019 03/26/2021 Paresthesia 04/20/2019 03/26/2021 Controlled type 2 diabetes m ellitus without complication, without long-term current use of insulin 03/28/2017 11/28/2017 Family history of ischemic heart disease 016 12/05/2017 BPPV (benign paroxysmal positional vertigo) 06/201612/05/2017 Postconcussion syndrome 10/30/2015 01/25/20 22 Memory loss 10/30/2015 01/24/2022 Pill dysphagia 05/17/2015 01/24/2022 Status post cervical spinal fusion 05/15/2015 12/05/2017 Emphysema of lung 05/15/2015 03/26/2021 Hypotension 05/15/2015 07/19/2015 Neoplasm of uncertain behavior of skin 3 11/28/2017 Atypical nevus of abdominal wall 12/09/2012 12/05/2017 Irritated//Inflamed Seborrheic Keratoses 013 12/05/2017 Dizziness and giddiness 08/24/2012 12/05/19 18 Hyperlipidemia 03/10/2017 Diverticulitis 11/28/2017 Diabetes mellitus 07/19/2015 documented as of this encounter (statuses as of 11/22/2022) [facility]arr[facility]* Problem Noted Date Resolved Date Numbness and tingling of both lower extremities 04/20/2019 03/26/2021 Paresthesia 04/20/2019 03/26/2021 Controlled type 2 diabetes m ellitus without complication, without long-term current use of insulin 03/28/2017 11/28/2017 Family history of ischemic heart disease 016 12/05/2017 BPPV (benign paroxysmal positional vertigo) 06/201612/05/2017 Postconcussion syndrome 10/30/2015 01/25/20 22 Memory loss 10/30/2015 01/24/2022 Pill dysphagia 05/17/2015 01/24/2022 Status post cervical spinal fusion 05/15/2015 12/05/2017 Emphysema of lung 05/15/2015 03/26/2021 Hypotension 05/15/2015 07/19/2015 Neoplasm of uncertain behavior of skin 3 11/28/2017 Atypical nevus of abdominal wall 12/09/2012 12/05/2017 Irritated//Inflamed Seborrheic Keratoses 013 12/05/2017 Dizziness and giddiness 08/24/2012 12/05/19 18 Hyperlipidemia 03/10/2017 Diverticulitis 11/28/2017 Diabetes mellitus 07/19/2015 documented as of this encounter (statuses as of 12/26/2022) [facility]* Problem Noted Date Resolved Date Numbness and tingling of both lower extremities 04/20/2019 03/26/2021 Paresthesia 04/20/2019 03/26/2021 Controlled type 2 diabetes m stephanieitus without complication, without long-term current use of insulin 03/28/2017 11/28/2017 Family history of ischemic heart disease 016 12/05/2017 BPPV (benign paroxysmal positional vertigo) 06/201612/05/2017 Postconcussion syndrome 10/30/2015 01/25/20 22 Memory loss 10/30/2015 01/24/2022 Pill dysphagia 05/17/2015 01/24/2022 Status post cervical spinal fusion 05/15/2015 12/05/2017 Emphysema of lung 05/15/2015 03/26/2021 Hypotension 05/15/2015 07/19/2015 Neoplasm of uncertain behavior of skin 3 11/28/2017 Atypical nevus of abdominal wall 12/09/2012 12/05/2017 Irritated//Inflamed Seborrheic Keratoses 013 12/05/2017 Dizziness and giddiness 08/24/2012 12/05/19 18 Hyperlipidemia 03/10/2017 Diverticulitis 11/28/2017 Diabetes mellitus 07/19/2015 documented as of this encounter (statuses as of 01/03/2023) [facility]* Problem Noted Date Resolved Date Numbness and tingling of both lower extremities 04/20/2019 03/26/2021 Paresthesia 04/20/2019 03/26/2021 Controlled type 2 diabetes m stephanieitus without complication, without long-term current use of insulin 03/28/2017 11/28/2017 Family history of ischemic heart disease 016 12/05/2017 BPPV (benign paroxysmal positional vertigo) 06/201612/05/2017 Postconcussion syndrome 10/30/2015 01/25/20 22 Memory loss 10/30/2015 01/24/2022 Pill dysphagia 05/17/2015 01/24/2022 Status post cervical spinal fusion 05/15/2015 12/05/2017 Emphysema of lung 05/15/2015 03/26/2021 Hypotension 05/15/2015 07/19/2015 Neoplasm of uncertain behavior of skin 3 11/28/2017 Atypical nevus of abdominal wall 12/09/2012 12/05/2017 Irritated//Inflamed Seborrheic Keratoses 013 12/05/2017 Dizziness and giddiness 08/24/2012 12/05/19 18 Hyperlipidemia 03/10/2017 Diverticulitis 11/28/2017 Diabetes mellitus 07/19/2015 documented as of this encounter (statuses as of 01/23/2023) [facility]* Problem Noted Date Resolved Date Numbness and tingling of both lower extremities 04/20/2019 03/26/2021 Paresthesia 04/20/2019 03/26/2021 Controlled type 2 diabetes m ellitus without complication, without long-term current use of insulin 03/28/2017 11/28/2017 Family history of ischemic heart disease 016 12/05/2017 BPPV (benign paroxysmal positional vertigo) 06/201612/05/2017 Postconcussion syndrome 10/30/2015 01/25/20 22 Memory loss 10/30/2015 01/24/2022 Pill dysphagia 05/17/2015 01/24/2022 Status post cervical spinal fusion 05/15/2015 12/05/2017 Emphysema of lung 05/15/2015 03/26/2021 Hypotension 05/15/2015 07/19/2015 Neoplasm of uncertain behavior of skin 3 11/28/2017 Atypical nevus of abdominal wall 12/09/2012 12/05/2017 Irritated//Inflamed Seborrheic Keratoses 013 12/05/2017 Dizziness and giddiness 08/24/2012 12/05/19 18 Hyperlipidemia 03/10/2017 Diverticulitis 11/28/2017 Diabetes mellitus 07/19/2015 documented as of this encounter (statuses as of 01/24/2023) [facility]* Problem Noted Date Resolved Date Numbness and tingling of both lower extremities 04/20/2019 03/26/2021 Paresthesia 04/20/2019 03/26/2021 Controlled type 2 diabetes m celia without complication, without long-term current use of insulin 03/28/2017 11/28/2017 Family history of ischemic heart disease 016 12/05/2017 BPPV (benign paroxysmal positional vertigo) 0 06/201612/05/2017 Postconcussion syndrome 10/30/2015 01/25/20 22 Memory loss 10/30/2015 01/24/2022 Pill dysphagia 05/17/2015 01/24/2022 Status post cervical spinal fusion 05/15/2015 12/05/2017 Emphysema of lung 05/15/2015 03/26/2021 Hypotension 05/15/2015 07/19/2015 Neoplasm of uncertain behavior of skin 3 11/28/2017 Atypical nevus of abdominal wall 12/09/2012 12/05/2017 Irritated//Inflamed Seborrheic Keratoses 013 12/05/2017 Dizziness and giddiness 08/24/2012 12/05/19 18 Hyperlipidemia 03/10/2017 Diverticulitis 11/28/2017 Diabetes mellitus 07/19/2015 documented as of this encounter (statuses as of 01/24/2023) [facility]* Problem Noted Date Resolved Date Numbness and tingling of both lower extremities 04/20/2019 03/26/2021 Paresthesia 04/20/2019 03/26/2021 Controlled type 2 diabetes m celia without complication, without long-term current use of insulin 03/28/2017 11/28/2017 Family history of ischemic heart disease 016 12/05/2017 BPPV (benign paroxysmal positional vertigo) 0 06/201612/05/2017 Postconcussion syndrome 10/30/2015 01/25/20 22 Memory loss 10/30/2015 01/24/2022 Pill dysphagia 05/17/2015 01/24/2022 Status post cervical spinal fusion 05/15/2015 12/05/2017 Emphysema of lung 05/15/2015 03/26/2021 Hypotension 05/15/2015 07/19/2015 Neoplasm of uncertain behavior of skin 3 11/28/2017 Atypical nevus of abdominal wall 12/09/2012 12/05/2017 Irritated//Inflamed Seborrheic Keratoses 013 12/05/2017 Dizziness and giddiness 08/24/2012 12/05/19 18 Hyperlipidemia 03/10/2017 Diverticulitis 11/28/2017 Diabetes mellitus 07/19/2015 documented as of this encounter (statuses as of 01/25/2023) [facility]* Problem Noted Date Resolved Date Numbness and tingling of both lower extremities 04/20/2019 03/26/2021 Paresthesia 04/20/2019 03/26/2021 Controlled type 2 diabetes m ellitus without complication, without long-term current use of insulin 03/28/2017 11/28/2017 Family history of ischemic heart disease 016 12/05/2017 BPPV (benign paroxysmal positional vertigo) 06/201612/05/2017 Postconcussion syndrome 10/30/2015 01/25/20 22 Memory loss 10/30/2015 01/24/2022 Pill dysphagia 05/17/2015 01/24/2022 Status post cervical spinal fusion 05/15/2015 12/05/2017 Emphysema of lung 05/15/2015 03/26/2021 Hypotension 05/15/2015 07/19/2015 Neoplasm of uncertain behavior of skin 3 11/28/2017 Atypical nevus of abdominal wall 12/09/2012 12/05/2017 Irritated//Inflamed Seborrheic Keratoses 013 12/05/2017 Dizziness and giddiness 08/24/2012 12/05/19 18 Hyperlipidemia 03/10/2017 Diverticulitis 11/28/2017 Diabetes mellitus 07/19/2015 documented as of this encounter (statuses as of 01/27/2023) [facility] History of Past illness Narrative* Problem Noted Date Resolved Date Numbness and tingling of both lower extremities 04/20/2019 03/26/2021 Paresthesia 04/20/2019 03/26/2021 Controlled type 2 diabetes m ellitus without complication, without long-term current use of insulin 03/28/2017 11/28/2017 Family history of ischemic heart disease 016 12/05/2017 BPPV (benign paroxysmal positional vertigo) /0 06/201612/05/2017 Postconcussion syndrome 10/30/2015 01/25/20 22 Memory loss 10/30/2015 01/24/2022 Pill dysphagia 05/17/2015 01/24/2022 Status post cervical spinal fusion 05/15/2015 12/05/2017 Emphysema of lung 05/15/2015 03/26/2021 Hypotension 05/15/2015 07/19/2015 Neoplasm of uncertain behavior of skin 3 11/28/2017 Atypical nevus of abdominal wall 12/09/2012 12/05/2017 Irritated//Inflamed Seborrheic Keratoses 013 12/05/2017 Dizziness and giddiness 08/24/2012 12/05/19 18 Hyperlipidemia 03/10/2017 Diverticulitis 11/28/2017 Diabetes mellitus 07/19/2015 documented as of this encounter (statuses as of 02/18/2023) [facility] of Past illness Narrative* Problem Noted Date Resolved Date Numbness and tingling of both lower extremities 04/20/2019 03/26/2021 Paresthesia 04/20/2019 03/26/2021 Controlled type 2 diabetes m ellitus without complication, without long-term current use of insulin 03/28/2017 11/28/2017 Family history of ischemic heart disease 016 12/05/2017 BPPV (benign paroxysmal positional vertigo) /0 06/201612/05/2017 Postconcussion syndrome 10/30/2015 01/25/20 22 Memory loss 10/30/2015 01/24/2022 Pill dysphagia 05/17/2015 01/24/2022 Status post cervical spinal fusion 05/15/2015 12/05/2017 Emphysema of lung 05/15/2015 03/26/2021 Hypotension 05/15/2015 07/19/2015 Neoplasm of uncertain behavior of skin 3 11/28/2017 Atypical nevus of abdominal wall 12/09/2012 12/05/2017 Irritated//Inflamed Seborrheic Keratoses 013 12/05/2017 Dizziness and giddiness 08/24/2012 12/05/19 18 Hyperlipidemia 03/10/2017 Diverticulitis 11/28/2017 Diabetes mellitus 07/19/2015 documented as of this encounter (statuses as of 02/21/2023) [facility] of Past illness Narrative* Problem Noted Date Resolved Date Numbness and tingling of both lower extremities 04/20/2019 03/26/2021 Paresthesia 04/20/2019 03/26/2021 Controlled type 2 diabetes m ellitus without complication, without long-term current use of insulin 03/28/2017 11/28/2017 Family history of ischemic heart disease 016 12/05/2017 BPPV (benign paroxysmal positional vertigo) 06/201612/05/2017 Postconcussion syndrome 10/30/2015 01/25/20 22 Memory loss 10/30/2015 01/24/2022 Pill dysphagia 05/17/2015 01/24/2022 Status post cervical spinal fusion 05/15/2015 12/05/2017 Emphysema of lung 05/15/2015 03/26/2021 Hypotension 05/15/2015 07/19/2015 Neoplasm of uncertain behavior of skin 3 11/28/2017 Atypical nevus of abdominal wall 12/09/2012 12/05/2017 Irritated//Inflamed Seborrheic Keratoses 013 12/05/2017 Dizziness and giddiness 08/24/2012 12/05/19 18 Hyperlipidemia 03/10/2017 Diverticulitis 11/28/2017 Diabetes mellitus 07/19/2015 documented as of this encounter (statuses as of 02/21/2023) [facility] of Past illness Narrative* Problem Noted Date Resolved Date Numbness and tingling of both lower extremities 04/20/2019 03/26/2021 Paresthesia 04/20/2019 03/26/2021 Controlled type 2 diabetes m ellitus without complication, without long-term current use of insulin 03/28/2017 11/28/2017 Family history of ischemic heart disease 016 12/05/2017 BPPV (benign paroxysmal positional vertigo) 06/201612/05/2017 Postconcussion syndrome 10/30/2015 01/25/20 22 Memory loss 10/30/2015 01/24/2022 Pill dysphagia 05/17/2015 01/24/2022 Status post cervical spinal fusion 05/15/2015 12/05/2017 Emphysema of lung 05/15/2015 03/26/2021 Hypotension 05/15/2015 07/19/2015 Neoplasm of uncertain behavior of skin 3 11/28/2017 Atypical nevus of abdominal wall 12/09/2012 12/05/2017 Irritated//Inflamed Seborrheic Keratoses 013 12/05/2017 Dizziness and giddiness 08/24/2012 12/05/19 18 Hyperlipidemia 03/10/2017 Diverticulitis 11/28/2017 Diabetes mellitus 07/19/2015 documented as of this encounter (statuses as of 03/21/2023) [facility] Past illness Narrative* Problem Noted Date Resolved Date Numbness and tingling of both lower extremities 04/20/2019 03/26/2021 Paresthesia 04/20/2019 03/26/2021 Controlled type 2 diabetes m ellitus without complication, without long-term current use of insulin 03/28/2017 11/28/2017 PAD (peripheral artery disease) 03/10/2017 03/30/2023 Overview: 02/06/2022 PVR ank/jackson/toe bilat: RIGHT SIDE JITENDRA: 1.19; TBI: 0.84, WNL at rest LEFT SIDE: JITENDRA: 1.19; TBI: 0.96, WNL at rest Family history of ischemic heart disease 016 12/05/2017 BPPV (benign paroxysmal positional vertigo) 06/201612/05/2017 Postconcussion syndrome 10/30/2015 01/25/20 22 Memory loss 10/30/2015 01/24/2022 Pill dysphagia 05/17/2015 01/24/2022 Status post cervical spinal fusion 05/15/2015 12/05/2017 Lung nodules 05/15/2015 03/27/2023 Overview: See 2019 CT: Impression IMPRESSION: No acute pulmonary process is identified. Stable subcentimeter pulmonary nodules, most likely benign, given stability for over 2 years. No follow-up examination is required. Emphysema of lung 05/15/2015 03/26/2021 Hypotension 05/15/2015 07/19/2015 Neoplasm of uncertain behavior of skin 3 11/28/2017 Atypical nevus of abdominal wall 12/09/2012 12/05/2017 Irritated//Inflamed Seborrheic Keratoses 013 12/05/2017 Dizziness and giddiness 08/24/2012 12/05/19 18 Hyperlipidemia 03/10/2017 Diverticulitis 11/28/2017 Diabetes mellitus 07/19/2015 documented as of this encounter (statuses as of 04/19/2023) [facility] of Past illness Narrative* Problem Noted Date Resolved Date Numbness and tingling of both lower extremities 04/20/2019 03/26/2021 Paresthesia 04/20/2019 03/26/2021 Controlled type 2 diabetes m ellitus without complication, without long-term current use of insulin 03/28/2017 11/28/2017 PAD (peripheral artery disease) 03/10/2017 03/30/2023 Overview: 02/06/2022 PVR ank/jackson/toe bilat: RIGHT SIDE JITENDRA: 1.19; TBI: 0.84, WNL at rest LEFT SIDE: JITENDRA: 1.19; TBI: 0.96, WNL at rest Family history of ischemic heart disease 016 12/05/2017 BPPV (benign paroxysmal positional vertigo) 06/201612/05/2017 Postconcussion syndrome 10/30/2015 01/25/20 22 Memory loss 10/30/2015 01/24/2022 Pill dysphagia 05/17/2015 01/24/2022 Status post cervical spinal fusion 05/15/2015 12/05/2017 Lung nodules 05/15/2015 03/27/2023 Overview: See 2019 CT: Impression IMPRESSION: No acute pulmonary process is identified. Stable subcentimeter pulmonary nodules, most likely benign, given stability for over 2 years. No follow-up examination is required. Emphysema of lung 05/15/2015 03/26/2021 Hypotension 05/15/2015 07/19/2015 Neoplasm of uncertain behavior of skin 3 11/28/2017 Atypical nevus of abdominal wall 12/09/2012 12/05/2017 Irritated//Inflamed Seborrheic Keratoses 013 12/05/2017 Dizziness and giddiness 08/24/2012 12/05/19 18 Hyperlipidemia 03/10/2017 Diverticulitis 11/28/2017 Diabetes mellitus 07/19/2015 documented as of this encounter (statuses as of 04/29/2023) [facility] of Past illness Narrative* Problem Noted Date Resolved Date Numbness and tingling of both lower extremities 04/20/2019 03/26/2021 Paresthesia 04/20/2019 03/26/2021 Controlled type 2 diabetes m ellitus without complication, without long-term current use of insulin 03/28/2017 11/28/2017 PAD (peripheral artery disease) 03/10/2017 03/30/2023 Overview: 02/06/2022 PVR ank/jackson/toe bilat: RIGHT SIDE JITENDRA: 1.19; TBI: 0.84, WNL at rest LEFT SIDE: JITENDRA: 1.19; TBI: 0.96, WNL at rest Family history of ischemic heart disease 016 12/05/2017 BPPV (benign paroxysmal positional vertigo) 06/201612/05/2017 Postconcussion syndrome 10/30/2015 01/25/20 22 Memory loss 10/30/2015 01/24/2022 Pill dysphagia 05/17/2015 01/24/2022 Status post cervical spinal fusion 05/15/2015 12/05/2017 Lung nodules 05/15/2015 03/27/2023 Overview: See 2019 CT: Impression IMPRESSION: No acute pulmonary process is identified. Stable subcentimeter pulmonary nodules, most likely benign, given stability for over 2 years. No follow-up examination is required. Emphysema of lung 05/15/2015 03/26/2021 Hypotension 05/15/2015 07/19/2015 Neoplasm of uncertain behavior of skin 3 11/28/2017 Atypical nevus of abdominal wall 12/09/2012 12/05/2017 Irritated//Inflamed Seborrheic Keratoses 013 12/05/2017 Dizziness and giddiness 08/24/2012 12/05/19 18 Hyperlipidemia 03/10/2017 Diverticulitis 11/28/2017 Diabetes mellitus 07/19/2015 documented as of this encounter (statuses as of 05/02/2023) [facility] of Past illness Narrative* Problem Noted Date Diagnosed Date Resolved Date Numbness and tingling of bot h lower extremities 04/20/2019 03/26/2021 Paresthesia 04/20/2019 03/26/2021 Controlled type 2 diabetes m ellitus without complication, without long-term current use of insulin 03/28/2017 11/28/2017 PAD (peripheral artery disease) 03/10/2017 03/30/2023 Overview: 02/06/2022 PVR ank/jackson/toe bilat: RIGHT SIDE JITENDRA: 1.19; TBI: 0.84, WNL at rest LEFT SIDE: JITENDRA: 1.19; TBI: 0.96, WNL at rest Family history of ischemic heart disease 03/14/2016 12/05/2017 BPPV (benign paroxysmal positional vertigo) 11/17/2015 12/05/2017 Postconcussion syndrome 10/30/201501/08 Memory loss 10/30/2015 01/24/2022 Pill dysphagia 05/17/2015 01/24/2022 Status post cervical spinal fusion 05/15/2015 12/05/2017 Lung nodules 05/15/2015 03/27/2023 Overview: See 2019 CT: Impression IMPRESSION: No acute pulmonary process is identified. Stable subcentimeter pulmonary nodules, most likely benign, given stability for over 2 years. No follow-up examination is required. Emphysema of lung 05/15/2015 03/26/2021 Hypotension 05/15/2015 07/19/2015 Neoplasm of uncertain behavior of skin 12/09/2012 11/28/2017 Atypical nevus of abdominal wall 12/09/2012 12/05/2017 Irritated//Inflamed Seborrheic Keratoses 12/09/2012 12/05/2017 Dizziness and giddiness 08/24/201211/11 Hyperlipidemia 03/10/2017 Diverticulitis 11/28/2017 Diabetes mellitus 07/19/2015 documented as of this encounter (statuses as of 05/19/2023) [facility] of Past illness Narrative* Problem Noted Date Diagnosed Date Resolved Date Numbness and tingling of bot h lower extremities 04/20/2019 03/26/2021 Paresthesia 04/20/2019 03/26/2021 Controlled type 2 diabetes m ellitus without complication, without long-term current use of insulin 03/28/2017 11/28/2017 PAD (peripheral artery disease) 03/10/2017 03/30/2023 Overview: 02/06/2022 PVR ank/jackson/toe bilat: RIGHT SIDE JITENDRA: 1.19; TBI: 0.84, WNL at rest LEFT SIDE: JITENDRA: 1.19; TBI: 0.96, WNL at rest Family history of ischemic heart disease 03/14/2016 12/05/2017 BPPV (benign paroxysmal positional vertigo) 11/17/2015 12/05/2017 Postconcussion syndrome 10/30/201501/08 Memory loss 10/30/2015 01/24/2022 Pill dysphagia 05/17/2015 01/24/2022 Status post cervical spinal fusion 05/15/2015 12/05/2017 Lung nodules 05/15/2015 03/27/2023 Overview: See 2019 CT: Impression IMPRESSION: No acute pulmonary process is identified. Stable subcentimeter pulmonary nodules, most likely benign, given stability for over 2 years. No follow-up examination is required. Emphysema of lung 05/15/2015 03/26/2021 Hypotension 05/15/2015 07/19/2015 Neoplasm of uncertain behavior of skin 12/09/2012 11/28/2017 Atypical nevus of abdominal wall 12/09/2012 12/05/2017 Irritated//Inflamed Seborrheic Keratoses 12/09/2012 12/05/2017 Dizziness and giddiness 08/24/201211/11 Hyperlipidemia 03/10/2017 Diverticulitis 11/28/2017 Diabetes mellitus 07/19/2015 documented as of this encounter (statuses as of 05/19/2023) [facility] of Past illness Narrative* Problem Noted Date Diagnosed Date Resolved Date Numbness and tingling of bot h lower extremities 04/20/2019 03/26/2021 Paresthesia 04/20/2019 03/26/2021 Controlled type 2 diabetes m ellitus without complication, without long-term current use of insulin 03/28/2017 11/28/2017 PAD (peripheral artery disease) 03/10/2017 03/30/2023 Overview: 02/06/2022 PVR ank/jackson/toe bilat: RIGHT SIDE JITENDRA: 1.19; TBI: 0.84, WNL at rest LEFT SIDE: JITENDRA: 1.19; TBI: 0.96, WNL at rest Family history of ischemic heart disease 03/14/2016 12/05/2017 BPPV (benign paroxysmal positional vertigo) 11/17/2015 12/05/2017 Postconcussion syndrome 10/30/201501/08 Memory loss 10/30/2015 01/24/2022 Pill dysphagia 05/17/2015 01/24/2022 Status post cervical spinal fusion 05/15/2015 12/05/2017 Lung nodules 05/15/2015 03/27/2023 Overview: See 2019 CT: Impression IMPRESSION: No acute pulmonary process is identified. Stable subcentimeter pulmonary nodules, most likely benign, given stability for over 2 years. No follow-up examination is required. Emphysema of lung 05/15/2015 03/26/2021 Hypotension 05/15/2015 07/19/2015 Neoplasm of uncertain behavior of skin 12/09/2012 11/28/2017 Atypical nevus of abdominal wall 12/09/2012 12/05/2017 Irritated//Inflamed Seborrheic Keratoses 12/09/2012 12/05/2017 Dizziness and giddiness 08/24/201211/11 Hyperlipidemia 03/10/2017 Diverticulitis 11/28/2017 Diabetes mellitus 07/19/2015 documented as of this encounter (statuses as of 05/20/2023) [facility] of Past illness Narrative* Problem Noted Date Diagnosed Date Resolved Date Numbness and tingling of bot h lower extremities 04/20/2019 03/26/2021 Paresthesia 04/20/2019 03/26/2021 Controlled type 2 diabetes m ellitus without complication, without long-term current use of insulin 03/28/2017 11/28/2017 PAD (peripheral artery disease) 03/10/2017 03/30/2023 Overview: 02/06/2022 PVR ank/jackson/toe bilat: RIGHT SIDE JITENDRA: 1.19; TBI: 0.84, WNL at rest LEFT SIDE: JITENDRA: 1.19; TBI: 0.96, WNL at rest Family history of ischemic heart disease 03/14/2016 12/05/2017 BPPV (benign paroxysmal positional vertigo) 11/17/2015 12/05/2017 Postconcussion syndrome 10/30/201501/08 Memory loss 10/30/2015 01/24/2022 Pill dysphagia 05/17/2015 01/24/2022 Status post cervical spinal fusion 05/15/2015 12/05/2017 Lung nodules 05/15/2015 03/27/2023 Overview: See 2019 CT: Impression IMPRESSION: No acute pulmonary process is identified. Stable subcentimeter pulmonary nodules, most likely benign, given stability for over 2 years. No follow-up examination is required. Emphysema of lung 05/15/2015 03/26/2021 Hypotension 05/15/2015 07/19/2015 Neoplasm of uncertain behavior of skin 12/09/2012 11/28/2017 Atypical nevus of abdominal wall 12/09/2012 12/05/2017 Irritated//Inflamed Seborrheic Keratoses 12/09/2012 12/05/2017 Dizziness and giddiness 08/24/201211/11 Hyperlipidemia 03/10/2017 Diverticulitis 11/28/2017 Diabetes mellitus 07/19/2015 documented as of this encounter (statuses as of 05/27/2023) [facility] Past illness Narrative* Problem Noted Date Diagnosed Date Resolved Date Numbness and tingling of bot h lower extremities 04/20/2019 03/26/2021 Paresthesia 04/20/2019 03/26/2021 Controlled type 2 diabetes m ellitus without complication, without long-term current use of insulin 03/28/2017 11/28/2017 PAD (peripheral artery disease) 03/10/2017 03/30/2023 Overview: 02/06/2022 PVR ank/jackson/toe bilat: RIGHT SIDE JITENDRA: 1.19; TBI: 0.84, WNL at rest LEFT SIDE: JITENDRA: 1.19; TBI: 0.96, WNL at rest Family history of ischemic heart disease 03/14/2016 12/05/2017 BPPV (benign paroxysmal positional vertigo) 11/17/2015 12/05/2017 Postconcussion syndrome 10/30/201501/08 Memory loss 10/30/2015 01/24/2022 Pill dysphagia 05/17/2015 01/24/2022 Status post cervical spinal fusion 05/15/2015 12/05/2017 Lung nodules 05/15/2015 03/27/2023 Overview: See 2019 CT: Impression IMPRESSION: No acute pulmonary process is identified. Stable subcentimeter pulmonary nodules, most likely benign, given stability for over 2 years. No follow-up examination is required. Emphysema of lung 05/15/2015 03/26/2021 Hypotension 05/15/2015 07/19/2015 Neoplasm of uncertain behavior of skin 12/09/2012 11/28/2017 Atypical nevus of abdominal wall 12/09/2012 12/05/2017 Irritated//Inflamed Seborrheic Keratoses 12/09/2012 12/05/2017 Dizziness and giddiness 08/24/201211/11 Hyperlipidemia 03/10/2017 Diverticulitis 11/28/2017 Diabetes mellitus 07/19/2015 documented as of this encounter (statuses as of 06/25/2023) [facility] Past illness Narrative* Problem Noted Date Diagnosed Date Resolved Date Numbness and tingling of bot h lower extremities 04/20/2019 03/26/2021 Paresthesia 04/20/2019 03/26/2021 Controlled type 2 diabetes m ellitus without complication, without long-term current use of insulin 03/28/2017 11/28/2017 PAD (peripheral artery disease) 03/10/2017 03/30/2023 Overview: 02/06/2022 PVR ank/jackson/toe bilat: RIGHT SIDE JITENDRA: 1.19; TBI: 0.84, WNL at rest LEFT SIDE: JITENDRA: 1.19; TBI: 0.96, WNL at rest Family history of ischemic heart disease 03/14/2016 12/05/2017 BPPV (benign paroxysmal positional vertigo) 11/17/2015 12/05/2017 Postconcussion syndrome 10/30/201501/08 Memory loss 10/30/2015 01/24/2022 Pill dysphagia 05/17/2015 01/24/2022 Status post cervical spinal fusion 05/15/2015 12/05/2017 Lung nodules 05/15/2015 03/27/2023 Overview: See 2019 CT: Impression IMPRESSION: No acute pulmonary process is identified. Stable subcentimeter pulmonary nodules, most likely benign, given stability for over 2 years. No follow-up examination is required. Emphysema of lung 05/15/2015 03/26/2021 Hypotension 05/15/2015 07/19/2015 Neoplasm of uncertain behavior of skin 12/09/2012 11/28/2017 Atypical nevus of abdominal wall 12/09/2012 12/05/2017 Irritated//Inflamed Seborrheic Keratoses 12/09/2012 12/05/2017 Dizziness and giddiness 08/24/201211/11 Hyperlipidemia 03/10/2017 Diverticulitis 11/28/2017 Diabetes mellitus 07/19/2015 documented as of this encounter (statuses as of 07/22/2023) [facility] Past illness Narrative* Problem Noted Date Diagnosed Date Resolved Date Numbness and tingling of bot h lower extremities 04/20/2019 03/26/2021 Paresthesia 04/20/2019 03/26/2021 Controlled type 2 diabetes m ellitus without complication, without long-term current use of insulin 03/28/2017 11/28/2017 PAD (peripheral artery disease) 03/10/2017 03/30/2023 Overview: 02/06/2022 PVR ank/jackson/toe bilat: RIGHT SIDE JITENDRA: 1.19; TBI: 0.84, WNL at rest LEFT SIDE: JITENDRA: 1.19; TBI: 0.96, WNL at rest Family history of ischemic heart disease 03/14/2016 12/05/2017 BPPV (benign paroxysmal positional vertigo) 11/17/2015 12/05/2017 Postconcussion syndrome 10/30/201501/08 Memory loss 10/30/2015 01/24/2022 Pill dysphagia 05/17/2015 01/24/2022 Status post cervical spinal fusion 05/15/2015 12/05/2017 Lung nodules 05/15/2015 03/27/2023 Overview: See 2019 CT: Impression IMPRESSION: No acute pulmonary process is identified. Stable subcentimeter pulmonary nodules, most likely benign, given stability for over 2 years. No follow-up examination is required. Emphysema of lung 05/15/2015 03/26/2021 Hypotension 05/15/2015 07/19/2015 Neoplasm of uncertain behavior of skin 12/09/2012 11/28/2017 Atypical nevus of abdominal wall 12/09/2012 12/05/2017 Irritated//Inflamed Seborrheic Keratoses 12/09/2012 12/05/2017 Dizziness and giddiness 08/24/201211/11 Hyperlipidemia 03/10/2017 Diverticulitis 11/28/2017 Diabetes mellitus 07/19/2015 documented as of this encounter (statuses as of 07/28/2023) [facility] Past illness Narrative* Problem Noted Date Diagnosed Date Resolved Date Numbness and tingling of bot h lower extremities 04/20/2019 03/26/2021 Paresthesia 04/20/2019 03/26/2021 Controlled type 2 diabetes m ellitus without complication, without long-term current use of insulin 03/28/2017 11/28/2017 PAD (peripheral artery disease) 03/10/2017 03/30/2023 Overview: 02/06/2022 PVR ank/jackson/toe bilat: RIGHT SIDE JITENDRA: 1.19; TBI: 0.84, WNL at rest LEFT SIDE: JITENDRA: 1.19; TBI: 0.96, WNL at rest Family history of ischemic heart disease 03/14/2016 12/05/2017 BPPV (benign paroxysmal positional vertigo) 11/17/2015 12/05/2017 Postconcussion syndrome 10/30/201501/08 Memory loss 10/30/2015 01/24/2022 Pill dysphagia 05/17/2015 01/24/2022 Status post cervical spinal fusion 05/15/2015 12/05/2017 Lung nodules 05/15/2015 03/27/2023 Overview: See 2019 CT: Impression IMPRESSION: No acute pulmonary process is identified. Stable subcentimeter pulmonary nodules, most likely benign, given stability for over 2 years. No follow-up examination is required. Emphysema of lung 05/15/2015 03/26/2021 Hypotension 05/15/2015 07/19/2015 Neoplasm of uncertain behavior of skin 12/09/2012 11/28/2017 Atypical nevus of abdominal wall 12/09/2012 12/05/2017 Irritated//Inflamed Seborrheic Keratoses 12/09/2012 12/05/2017 Dizziness and giddiness 08/24/201211/11 Hyperlipidemia 03/10/2017 Diverticulitis 11/28/2017 Diabetes mellitus 07/19/2015 documented as of this encounter (statuses as of 07/30/2023) [facility] Past illness Narrative* Problem Noted Date Diagnosed Date Resolved Date Numbness and tingling of bot h lower extremities 04/20/2019 03/26/2021 Paresthesia 04/20/2019 03/26/2021 Controlled type 2 diabetes m ellitus without complication, without long-term current use of insulin 03/28/2017 11/28/2017 PAD (peripheral artery disease) 03/10/2017 03/30/2023 Overview: 02/06/2022 PVR ank/jackson/toe bilat: RIGHT SIDE JITENDRA: 1.19; TBI: 0.84, WNL at rest LEFT SIDE: JITENDRA: 1.19; TBI: 0.96, WNL at rest Family history of ischemic heart disease 03/14/2016 12/05/2017 BPPV (benign paroxysmal positional vertigo) 11/17/2015 12/05/2017 Postconcussion syndrome 10/30/2015 03/05/2022 Memory loss 10/30/2015 01/24/2022 Pill dysphagia 05/17/2015 01/24/2022 Status post cervical spinal fusion 05/15/2015 12/05/2017 Lung nodules 05/15/2015 03/27/2023 Overview: See 2019 CT: Impression IMPRESSION: No acute pulmonary process is identified. Stable subcentimeter pulmonary nodules, most likely benign, given stability for over 2 years. No follow-up examination is required. Emphysema of lung 05/15/2015 03/26/2021 Hypotension 05/15/2015 07/19/2015 Neoplasm of uncertain behavior of skin 12/09/2012 11/28/2017 Atypical nevus of abdominal wall 12/09/2012 12/05/2017 Irritated//Inflamed Seborrheic Keratoses 12/09/2012 12/05/2017 Dizziness and giddiness 08/24/201211/11 Hyperlipidemia 03/10/2017 Diverticulitis 11/28/2017 Diabetes mellitus 07/19/2015 documented as of this encounter (statuses as of 08/08/2023) [facility] Narrative* Problem Noted Date Diagnosed Date Resolved Date Numbness and tingling of bot h lower extremities 04/20/2019 03/26/2021 Paresthesia 04/20/2019 03/26/2021 Controlled type 2 diabetes m ellitus without complication, without long-term current use of insulin 03/28/2017 11/28/2017 PAD (peripheral artery disease) 03/10/2017 03/30/2023 Overview: 02/06/2022 PVR ank/jackson/toe bilat: RIGHT SIDE JITENDRA: 1.19; TBI: 0.84, WNL at rest LEFT SIDE: JITENDRA: 1.19; TBI: 0.96, WNL at rest Family history of ischemic heart disease 03/14/2016 12/05/2017 BPPV (benign paroxysmal positional vertigo) 11/17/2015 12/05/2017 Postconcussion syndrome 10/30/201501/08 Memory loss 10/30/2015 01/24/2022 Pill dysphagia 05/17/2015 01/24/2022 Status post cervical spinal fusion 05/15/2015 12/05/2017 Lung nodules 05/15/2015 03/27/2023 Overview: See 2019 CT: Impression IMPRESSION: No acute pulmonary process is identified. Stable subcentimeter pulmonary nodules, most likely benign, given stability for over 2 years. No follow-up examination is required. Emphysema of lung 05/15/2015 03/26/2021 Hypotension 05/15/2015 07/19/2015 Neoplasm of uncertain behavior of skin 12/09/2012 11/28/2017 Atypical nevus of abdominal wall 12/09/2012 12/05/2017 Irritated//Inflamed Seborrheic Keratoses 12/09/2012 12/05/2017 Dizziness and giddiness 08/24/201211/11 Hyperlipidemia 03/10/2017 Diverticulitis 11/28/2017 Diabetes mellitus 07/19/2015 documented as of this encounter (statuses as of 09/10/2023) [facility] History of Past illness Narrative* Problem Noted Date Diagnosed Date Resolved Date Numbness and tingling of bot h lower extremities 04/20/2019 03/26/2021 Paresthesia 04/20/2019 03/26/2021 Controlled type 2 diabetes m ellitus without complication, without long-term current use of insulin 03/28/2017 11/28/2017 PAD (peripheral artery disease) 03/10/2017 03/30/2023 Overview: 02/06/2022 PVR ank/jackson/toe bilat: RIGHT SIDE JITENDRA: 1.19; TBI: 0.84, WNL at rest LEFT SIDE: JITENDRA: 1.19; TBI: 0.96, WNL at rest Family history of ischemic heart disease 03/14/2016 12/05/2017 BPPV (benign paroxysmal positional vertigo) 11/17/2015 12/05/2017 Postconcussion syndrome 10/30/201501/08 Memory loss 10/30/2015 01/24/2022 Pill dysphagia 05/17/2015 01/24/2022 Status post cervical spinal fusion 05/15/2015 12/05/2017 Lung nodules 05/15/2015 03/27/2023 Overview: See 2019 CT: Impression IMPRESSION: No acute pulmonary process is identified. Stable subcentimeter pulmonary nodules, most likely benign, given stability for over 2 years. No follow-up examination is required. Emphysema of lung 05/15/2015 03/26/2021 Hypotension 05/15/2015 07/19/2015 Neoplasm of uncertain behavior of skin 12/09/2012 11/28/2017 Atypical nevus of abdominal wall 12/09/2012 12/05/2017 Irritated//Inflamed Seborrheic Keratoses 12/09/2012 12/05/2017 Dizziness and giddiness 08/24/201211/11 Hyperlipidemia 03/10/2017 Diverticulitis 11/28/2017 Diabetes mellitus 07/19/2015 documented as of this encounter (statuses as of 09/11/2023) [facility] History of Past illness Narrative* Problem Noted Date Diagnosed Date Resolved Date Numbness and tingling of bot h lower extremities 04/20/2019 03/26/2021 Paresthesia 04/20/2019 03/26/2021 Controlled type 2 diabetes m ellitus without complication, without long-term current use of insulin 03/28/2017 11/28/2017 PAD (peripheral artery disease) 03/10/2017 03/30/2023 Overview: 02/06/2022 PVR ank/jackson/toe bilat: RIGHT SIDE JITENDRA: 1.19; TBI: 0.84, WNL at rest LEFT SIDE: JITENDRA: 1.19; TBI: 0.96, WNL at rest Family history of ischemic heart disease 03/14/2016 12/05/2017 BPPV (benign paroxysmal positional vertigo) 11/17/2015 12/05/2017 Postconcussion syndrome 10/30/201501/08 Memory loss 10/30/2015 01/24/2022 Pill dysphagia 05/17/2015 01/24/2022 Status post cervical spinal fusion 05/15/2015 12/05/2017 Lung nodules 05/15/2015 03/27/2023 Overview: See 2019 CT: Impression IMPRESSION: No acute pulmonary process is identified. Stable subcentimeter pulmonary nodules, most likely benign, given stability for over 2 years. No follow-up examination is required. Emphysema of lung 05/15/2015 03/26/2021 Hypotension 05/15/2015 07/19/2015 Neoplasm of uncertain behavior of skin 12/09/2012 11/28/2017 Atypical nevus of abdominal wall 12/09/2012 12/05/2017 Irritated//Inflamed Seborrheic Keratoses 12/09/2012 12/05/2017 Dizziness and giddiness 08/24/201211/11 Hyperlipidemia 03/10/2017 Diverticulitis 11/28/2017 Diabetes mellitus 07/19/2015 documented as of this encounter (statuses as of 09/12/2023) [facility] History of Past illness Narrative* Problem Noted Date Diagnosed Date Resolved Date Numbness and tingling of bot h lower extremities 04/20/2019 03/26/2021 Paresthesia 04/20/2019 03/26/2021 Controlled type 2 diabetes m ellitus without complication, without long-term current use of insulin 03/28/2017 11/28/2017 PAD (peripheral artery disease) 03/10/2017 03/30/2023 Overview: 02/06/2022 PVR ank/jackson/toe bilat: RIGHT SIDE JITENDRA: 1.19; TBI: 0.84, WNL at rest LEFT SIDE: JITENDRA: 1.19; TBI: 0.96, WNL at rest Family history of ischemic heart disease 03/14/2016 12/05/2017 BPPV (benign paroxysmal positional vertigo) 11/17/2015 12/05/2017 Postconcussion syndrome 10/30/201501/08 Memory loss 10/30/2015 01/24/2022 Pill dysphagia 05/17/2015 01/24/2022 Status post cervical spinal fusion 05/15/2015 12/05/2017 Lung nodules 05/15/2015 03/27/2023 Overview: See 2019 CT: Impression IMPRESSION: No acute pulmonary process is identified. Stable subcentimeter pulmonary nodules, most likely benign, given stability for over 2 years. No follow-up examination is required. Emphysema of lung 05/15/2015 03/26/2021 Hypotension 05/15/2015 07/19/2015 Neoplasm of uncertain behavior of skin 12/09/2012 11/28/2017 Atypical nevus of abdominal wall 12/09/2012 12/05/2017 Irritated//Inflamed Seborrheic Keratoses 12/09/2012 12/05/2017 Dizziness and giddiness 08/24/201211/11 Hyperlipidemia 03/10/2017 Diverticulitis 11/28/2017 Diabetes mellitus 07/19/2015 documented as of this encounter (statuses as of 09/12/2023) [facility] History of Past illness Narrative* Problem Noted Date Diagnosed Date Resolved Date Numbness and tingling of bot h lower extremities 04/20/2019 03/26/2021 Paresthesia 04/20/2019 03/26/2021 Controlled type 2 diabetes m ellitus without complication, without long-term current use of insulin 03/28/2017 11/28/2017 PAD (peripheral artery disease) 03/10/2017 03/30/2023 Overview: 02/06/2022 PVR ank/jackson/toe bilat: RIGHT SIDE JITENDRA: 1.19; TBI: 0.84, WNL at rest LEFT SIDE: JITENDRA: 1.19; TBI: 0.96, WNL at rest Family history of ischemic heart disease 03/14/2016 12/05/2017 BPPV (benign paroxysmal positional vertigo) 11/17/2015 12/05/2017 Postconcussion syndrome 10/30/201501/08 Memory loss 10/30/2015 01/24/2022 Pill dysphagia 05/17/2015 01/24/2022 Status post cervical spinal fusion 05/15/2015 12/05/2017 Lung nodules 05/15/2015 03/27/2023 Overview: See 2019 CT: Impression IMPRESSION: No acute pulmonary process is identified. Stable subcentimeter pulmonary nodules, most likely benign, given stability for over 2 years. No follow-up examination is required. Emphysema of lung 05/15/2015 03/26/2021 Hypotension 05/15/2015 07/19/2015 Neoplasm of uncertain behavior of skin 12/09/2012 11/28/2017 Atypical nevus of abdominal wall 12/09/2012 12/05/2017 Irritated//Inflamed Seborrheic Keratoses 12/09/2012 12/05/2017 Dizziness and giddiness 08/24/201211/11 Hyperlipidemia 03/10/2017 Diverticulitis 11/28/2017 Diabetes mellitus 07/19/2015 documented as of this encounter (statuses as of 09/12/2023) [facility] History of Past illness Narrative* Problem Noted Date Diagnosed Date Resolved Date Numbness and tingling of bot h lower extremities 04/20/2019 03/26/2021 Paresthesia 04/20/2019 03/26/2021 Controlled type 2 diabetes m stephanieitus without complication, without long-term current use of insulin 03/28/2017 11/28/2017 PAD (peripheral artery disease) 03/10/2017 03/30/2023 Overview: 02/06/2022 PVR ank/jackson/toe bilat: RIGHT SIDE JITENDRA: 1.19; TBI: 0.84, WNL at rest LEFT SIDE: JITENDRA: 1.19; TBI: 0.96, WNL at rest Family history of ischemic heart disease 03/14/2016 12/05/2017 BPPV (benign paroxysmal positional vertigo) 11/17/2015 12/05/2017 Postconcussion syndrome 10/30/201501/08 Memory loss 10/30/2015 01/24/2022 Pill dysphagia 05/17/2015 01/24/2022 Status post cervical spinal fusion 05/15/2015 12/05/2017 Lung nodules 05/15/2015 03/27/2023 Overview: See 2019 CT: Impression IMPRESSION: No acute pulmonary process is identified. Stable subcentimeter pulmonary nodules, most likely benign, given stability for over 2 years. No follow-up examination is required. Emphysema of lung 05/15/2015 03/26/2021 Hypotension 05/15/2015 07/19/2015 Neoplasm of uncertain behavior of skin 12/09/2012 11/28/2017 Atypical nevus of abdominal wall 12/09/2012 12/05/2017 Irritated//Inflamed Seborrheic Keratoses 12/09/2012 12/05/2017 Dizziness and giddiness 08/24/201211/11 Hyperlipidemia 03/10/2017 Diverticulitis 11/28/2017 Diabetes mellitus 07/19/2015 documented as of this encounter (statuses as of 09/12/2023) [facility] History of Past illness Narrative* Problem Noted Date Diagnosed Date Resolved Date Numbness and tingling of bot h lower extremities 04/20/2019 03/26/2021 Paresthesia 04/20/2019 03/26/2021 Controlled type 2 diabetes m stephanieitus without complication, without long-term current use of insulin 03/28/2017 11/28/2017 PAD (peripheral artery disease) 03/10/2017 03/30/2023 Overview: 02/06/2022 PVR ank/jackson/toe bilat: RIGHT SIDE JITENDRA: 1.19; TBI: 0.84, WNL at rest LEFT SIDE: JITENDRA: 1.19; TBI: 0.96, WNL at rest Family history of ischemic heart disease 03/14/2016 12/05/2017 BPPV (benign paroxysmal positional vertigo) 11/17/2015 12/05/2017 Postconcussion syndrome 10/30/201501/08 Memory loss 10/30/2015 01/24/2022 Pill dysphagia 05/17/2015 01/24/2022 Status post cervical spinal fusion 05/15/2015 12/05/2017 Lung nodules 05/15/2015 03/27/2023 Overview: See 2019 CT: Impression IMPRESSION: No acute pulmonary process is identified. Stable subcentimeter pulmonary nodules, most likely benign, given stability for over 2 years. No follow-up examination is required. Emphysema of lung 05/15/2015 03/26/2021 Hypotension 05/15/2015 07/19/2015 Neoplasm of uncertain behavior of skin 12/09/2012 11/28/2017 Atypical nevus of abdominal wall 12/09/2012 12/05/2017 Irritated//Inflamed Seborrheic Keratoses 12/09/2012 12/05/2017 Dizziness and giddiness 08/24/201211/11 Hyperlipidemia 03/10/2017 Diverticulitis 11/28/2017 Diabetes mellitus 07/19/2015 documented as of this encounter (statuses as of 09/29/2023) [facility] History of Past illness Narrative* Problem Noted Date Diagnosed Date Resolved Date Numbness and tingling of bot h lower extremities 04/20/2019 03/26/2021 Paresthesia 04/20/2019 03/26/2021 Controlled type 2 diabetes m ellitus without complication, without long-term current use of insulin 03/28/2017 11/28/2017 PAD (peripheral artery disease) 03/10/2017 03/30/2023 Overview: 02/06/2022 PVR ank/jackson/toe bilat: RIGHT SIDE JITENDRA: 1.19; TBI: 0.84, WNL at rest LEFT SIDE: JITENDRA: 1.19; TBI: 0.96, WNL at rest Family history of ischemic heart disease 03/14/2016 12/05/2017 BPPV (benign paroxysmal positional vertigo) 11/17/2015 12/05/2017 Postconcussion syndrome 10/30/201501/08 Memory loss 10/30/2015 01/24/2022 Pill dysphagia 05/17/2015 01/24/2022 Status post cervical spinal fusion 05/15/2015 12/05/2017 Lung nodules 05/15/2015 03/27/2023 Overview: See 2019 CT: Impression IMPRESSION: No acute pulmonary process is identified. Stable subcentimeter pulmonary nodules, most likely benign, given stability for over 2 years. No follow-up examination is required. Emphysema of lung 05/15/2015 03/26/2021 Hypotension 05/15/2015 07/19/2015 Neoplasm of uncertain behavior of skin 12/09/2012 11/28/2017 Atypical nevus of abdominal wall 12/09/2012 12/05/2017 Irritated//Inflamed Seborrheic Keratoses 12/09/2012 12/05/2017 Dizziness and giddiness 08/24/201211/11 Hyperlipidemia 03/10/2017 Diverticulitis 11/28/2017 Diabetes mellitus 07/19/2015 documented as of this encounter (statuses as of 09/30/2023) [facility] History of Past illness Narrative* Problem Noted Date Diagnosed Date Resolved Date Numbness and tingling of bot h lower extremities 04/20/2019 03/26/2021 Paresthesia 04/20/2019 03/26/2021 Controlled type 2 diabetes m ellitus without complication, without long-term current use of insulin 03/28/2017 11/28/2017 PAD (peripheral artery disease) 03/10/2017 03/30/2023 Overview: 02/06/2022 PVR ank/jackson/toe bilat: RIGHT SIDE JITENDRA: 1.19; TBI: 0.84, WNL at rest LEFT SIDE: JITENDRA: 1.19; TBI: 0.96, WNL at rest Family history of ischemic heart disease 03/14/2016 12/05/2017 BPPV (benign paroxysmal positional vertigo) 11/17/2015 12/05/2017 Postconcussion syndrome 10/30/201501/08 Memory loss 10/30/2015 01/24/2022 Pill dysphagia 05/17/2015 01/24/2022 Status post cervical spinal fusion 05/15/2015 12/05/2017 Lung nodules 05/15/2015 03/27/2023 Overview: See 2019 CT: Impression IMPRESSION: No acute pulmonary process is identified. Stable subcentimeter pulmonary nodules, most likely benign, given stability for over 2 years. No follow-up examination is required. Emphysema of lung 05/15/2015 03/26/2021 Hypotension 05/15/2015 07/19/2015 Neoplasm of uncertain behavior of skin 12/09/2012 11/28/2017 Atypical nevus of abdominal wall 12/09/2012 12/05/2017 Irritated//Inflamed Seborrheic Keratoses 12/09/2012 12/05/2017 Dizziness and giddiness 08/24/201211/11 Hyperlipidemia 03/10/2017 Diverticulitis 11/28/2017 Diabetes mellitus 07/19/2015 documented as of this encounter (statuses as of 10/15/2023) [facility] History of Past illness Narrative* Problem Noted Date Diagnosed Date Resolved Date Numbness and tingling of bot h lower extremities 04/20/2019 03/26/2021 Paresthesia 04/20/2019 03/26/2021 Controlled type 2 diabetes m ellitus without complication, without long-term current use of insulin 03/28/2017 11/28/2017 PAD (peripheral artery disease) 03/10/2017 03/30/2023 Overview: 02/06/2022 PVR ank/jackson/toe bilat: RIGHT SIDE JITENDRA: 1.19; TBI: 0.84, WNL at rest LEFT SIDE: JITENDRA: 1.19; TBI: 0.96, WNL at rest Family history of ischemic heart disease 03/14/2016 12/05/2017 BPPV (benign paroxysmal positional vertigo) 11/17/2015 12/05/2017 Postconcussion syndrome 10/30/201501/08 Memory loss 10/30/2015 01/24/2022 Pill dysphagia 05/17/2015 01/24/2022 Status post cervical spinal fusion 05/15/2015 12/05/2017 Lung nodules 05/15/2015 03/27/2023 Overview: See 2019 CT: Impression IMPRESSION: No acute pulmonary process is identified. Stable subcentimeter pulmonary nodules, most likely benign, given stability for over 2 years. No follow-up examination is required. Emphysema of lung 05/15/2015 03/26/2021 Hypotension 05/15/2015 07/19/2015 Neoplasm of uncertain behavior of skin 12/09/2012 11/28/2017 Atypical nevus of abdominal wall 12/09/2012 12/05/2017 Irritated//Inflamed Seborrheic Keratoses 12/09/2012 12/05/2017 Dizziness and giddiness 08/24/201211/11 Hyperlipidemia 03/10/2017 Diverticulitis 11/28/2017 Diabetes mellitus 07/19/2015 documented as of this encounter (statuses as of 10/15/2023) [facility] of Past illness Narrative* Problem Noted Date Diagnosed Date Resolved Date Numbness and tingling of bot h lower extremities 04/20/2019 03/26/2021 Paresthesia 04/20/2019 03/26/2021 Controlled type 2 diabetes m ellitus without complication, without long-term current use of insulin 03/28/2017 11/28/2017 PAD (peripheral artery disease) 03/10/2017 03/30/2023 Overview: 02/06/2022 PVR ank/jackson/toe bilat: RIGHT SIDE JITENDRA: 1.19; TBI: 0.84, WNL at rest LEFT SIDE: JITENDRA: 1.19; TBI: 0.96, WNL at rest Family history of ischemic heart disease 03/14/2016 12/05/2017 BPPV (benign paroxysmal positional vertigo) 11/17/2015 12/05/2017 Postconcussion syndrome 10/30/201501/08 Memory loss 10/30/2015 01/24/2022 Pill dysphagia 05/17/2015 01/24/2022 Status post cervical spinal fusion 05/15/2015 12/05/2017 Lung nodules 05/15/2015 03/27/2023 Overview: See 2019 CT: Impression IMPRESSION: No acute pulmonary process is identified. Stable subcentimeter pulmonary nodules, most likely benign, given stability for over 2 years. No follow-up examination is required. Emphysema of lung 05/15/2015 03/26/2021 Hypotension 05/15/2015 07/19/2015 Neoplasm of uncertain behavior of skin 12/09/2012 11/28/2017 Atypical nevus of abdominal wall 12/09/2012 12/05/2017 Irritated//Inflamed Seborrheic Keratoses 12/09/2012 12/05/2017 Dizziness and giddiness 08/24/201211/11 Hyperlipidemia 03/10/2017 Diverticulitis 11/28/2017 Diabetes mellitus 07/19/2015 documented as of this encounter (statuses as of 10/16/2023) [facility] Past illness Narrative* Problem Noted Date Diagnosed Date Resolved Date Numbness and tingling of bot h lower extremities 04/20/2019 03/26/2021 Paresthesia 04/20/2019 03/26/2021 Controlled type 2 diabetes m ellitus without complication, without long-term current use of insulin 03/28/2017 11/28/2017 PAD (peripheral artery disease) 03/10/2017 03/30/2023 Overview: 02/06/2022 PVR ank/jackson/toe bilat: RIGHT SIDE JITENDRA: 1.19; TBI: 0.84, WNL at rest LEFT SIDE: JITENDRA: 1.19; TBI: 0.96, WNL at rest Family history of ischemic heart disease 03/14/2016 12/05/2017 BPPV (benign paroxysmal positional vertigo) 11/17/2015 12/05/2017 Postconcussion syndrome 10/30/201501/08 Memory loss 10/30/2015 01/24/2022 Pill dysphagia 05/17/2015 01/24/2022 Status post cervical spinal fusion 05/15/2015 12/05/2017 Lung nodules 05/15/2015 03/27/2023 Overview: See 2019 CT: Impression IMPRESSION: No acute pulmonary process is identified. Stable subcentimeter pulmonary nodules, most likely benign, given stability for over 2 years. No follow-up examination is required. Emphysema of lung 05/15/2015 03/26/2021 Hypotension 05/15/2015 07/19/2015 Neoplasm of uncertain behavior of skin 12/09/2012 11/28/2017 Atypical nevus of abdominal wall 12/09/2012 12/05/2017 Irritated//Inflamed Seborrheic Keratoses 12/09/2012 12/05/2017 Dizziness and giddiness 08/24/201211/11 Hyperlipidemia 03/10/2017 Diverticulitis 11/28/2017 Diabetes mellitus 07/19/2015 documented as of this encounter (statuses as of 10/17/2023) [facility] Past illness Narrative* Problem Noted Date Diagnosed Date Resolved Date Numbness and tingling of bot h lower extremities 04/20/2019 03/26/2021 Paresthesia 04/20/2019 03/26/2021 Controlled type 2 diabetes m ellitus without complication, without long-term current use of insulin 03/28/2017 11/28/2017 PAD (peripheral artery disease) 03/10/2017 03/30/2023 Overview: 02/06/2022 PVR ank/jackson/toe bilat: RIGHT SIDE JITENDRA: 1.19; TBI: 0.84, WNL at rest LEFT SIDE: JITENDRA: 1.19; TBI: 0.96, WNL at rest Family history of ischemic heart disease 03/14/2016 12/05/2017 BPPV (benign paroxysmal positional vertigo) 11/17/2015 12/05/2017 Postconcussion syndrome 10/30/2015 03/05/2022 Memory loss 10/30/2015 01/24/2022 Pill dysphagia 05/17/2015 01/24/2022 Status post cervical spinal fusion 05/15/2015 12/05/2017 Lung nodules 05/15/2015 03/27/2023 Overview: See 2019 CT: Impression IMPRESSION: No acute pulmonary process is identified. Stable subcentimeter pulmonary nodules, most likely benign, given stability for over 2 years. No follow-up examination is required. Emphysema of lung 05/15/2015 03/26/2021 Hypotension 05/15/2015 07/19/2015 Neoplasm of uncertain behavior of skin 12/09/2012 11/28/2017 Atypical nevus of abdominal wall 12/09/2012 12/05/2017 Irritated//Inflamed Seborrheic Keratoses 12/09/2012 12/05/2017 Dizziness and giddiness 08/24/201211/11 Hyperlipidemia 03/10/2017 Diverticulitis 11/28/2017 Diabetes mellitus 07/19/2015 documented as of this encounter (statuses as of 12/12/2023) [facility] Past illness Narrative* Problem Noted Date Diagnosed Date Resolved Date Numbness and tingling of bot h lower extremities 04/20/2019 03/26/2021 Paresthesia 04/20/2019 03/26/2021 Controlled type 2 diabetes m ellitus without complication, without long-term current use of insulin 03/28/2017 11/28/2017 PAD (peripheral artery disease) 03/10/2017 03/30/2023 Overview: 02/06/2022 PVR ank/jackson/toe bilat: RIGHT SIDE JITENDRA: 1.19; TBI: 0.84, WNL at rest LEFT SIDE: JITENDRA: 1.19; TBI: 0.96, WNL at rest Family history of ischemic heart disease 03/14/2016 12/05/2017 BPPV (benign paroxysmal positional vertigo) 11/17/2015 12/05/2017 Postconcussion syndrome 10/30/201501/08 Memory loss 10/30/2015 01/24/2022 Pill dysphagia 05/17/2015 01/24/2022 Status post cervical spinal fusion 05/15/2015 12/05/2017 Lung nodules 05/15/2015 03/27/2023 Overview: See 2019 CT: Impression IMPRESSION: No acute pulmonary process is identified. Stable subcentimeter pulmonary nodules, most likely benign, given stability for over 2 years. No follow-up examination is required. Emphysema of lung 05/15/2015 03/26/2021 Hypotension 05/15/2015 07/19/2015 Neoplasm of uncertain behavior of skin 12/09/2012 11/28/2017 Atypical nevus of abdominal wall 12/09/2012 12/05/2017 Irritated//Inflamed Seborrheic Keratoses 12/09/2012 12/05/2017 Dizziness and giddiness 08/24/201211/11 Hyperlipidemia 03/10/2017 Diverticulitis 11/28/2017 Diabetes mellitus 07/19/2015 documented as of this encounter (statuses as of 12/12/2023) [facility] Past illness Narrative* Problem Noted Date Diagnosed Date Resolved Date Numbness and tingling of bot h lower extremities 04/20/2019 03/26/2021 Paresthesia 04/20/2019 03/26/2021 Controlled type 2 diabetes m ellitus without complication, without long-term current use of insulin 03/28/2017 11/28/2017 PAD (peripheral artery disease) 03/10/2017 03/30/2023 Overview: 02/06/2022 PVR ank/jackson/toe bilat: RIGHT SIDE JITENDRA: 1.19; TBI: 0.84, WNL at rest LEFT SIDE: JITENDRA: 1.19; TBI: 0.96, WNL at rest Family history of ischemic heart disease 03/14/2016 12/05/2017 BPPV (benign paroxysmal positional vertigo) 11/17/2015 12/05/2017 Postconcussion syndrome 10/30/201501/08 Memory loss 10/30/2015 01/24/2022 Pill dysphagia 05/17/2015 01/24/2022 Status post cervical spinal fusion 05/15/2015 12/05/2017 Lung nodules 05/15/2015 03/27/2023 Overview: See 2019 CT: Impression IMPRESSION: No acute pulmonary process is identified. Stable subcentimeter pulmonary nodules, most likely benign, given stability for over 2 years. No follow-up examination is required. Emphysema of lung 05/15/2015 03/26/2021 Hypotension 05/15/2015 07/19/2015 Neoplasm of uncertain behavior of skin 12/09/2012 11/28/2017 Atypical nevus of abdominal wall 12/09/2012 12/05/2017 Irritated//Inflamed Seborrheic Keratoses 12/09/2012 12/05/2017 Dizziness and giddiness 08/24/201211/11 Hyperlipidemia 03/10/2017 Diverticulitis 11/28/2017 Diabetes mellitus 07/19/2015 documented as of this encounter (statuses as of 12/16/2023) [facility] Narrative* Problem Noted Date Diagnosed Date Resolved Date Numbness and tingling of bot h lower extremities 04/20/2019 03/26/2021 Paresthesia 04/20/2019 03/26/2021 Controlled type 2 diabetes m ellitus without complication, without long-term current use of insulin 03/28/2017 11/28/2017 PAD (peripheral artery disease) 03/10/2017 03/30/2023 Overview: 02/06/2022 PVR ank/jackson/toe bilat: RIGHT SIDE JITENDRA: 1.19; TBI: 0.84, WNL at rest LEFT SIDE: JITENDRA: 1.19; TBI: 0.96, WNL at rest Family history of ischemic heart disease 03/14/2016 12/05/2017 BPPV (benign paroxysmal positional vertigo) 11/17/2015 12/05/2017 Postconcussion syndrome 10/30/201501/08 Memory loss 10/30/2015 01/24/2022 Pill dysphagia 05/17/2015 01/24/2022 Status post cervical spinal fusion 05/15/2015 12/05/2017 Lung nodules 05/15/2015 03/27/2023 Overview: See 2019 CT: Impression IMPRESSION: No acute pulmonary process is identified. Stable subcentimeter pulmonary nodules, most likely benign, given stability for over 2 years. No follow-up examination is required. Emphysema of lung 05/15/2015 03/26/2021 Hypotension 05/15/2015 07/19/2015 Neoplasm of uncertain behavior of skin 12/09/2012 11/28/2017 Atypical nevus of abdominal wall 12/09/2012 12/05/2017 Irritated//Inflamed Seborrheic Keratoses 12/09/2012 12/05/2017 Dizziness and giddiness 08/24/201211/11 Hyperlipidemia 03/10/2017 Diverticulitis 11/28/2017 Diabetes mellitus 07/19/2015 documented as of this encounter (statuses as of 12/18/2023) [facility] Past [facility] Narrative* Problem Noted Date Diagnosed Date Resolved Date Numbness and tingling of bot h lower extremities 04/20/2019 03/26/2021 Paresthesia 04/20/2019 03/26/2021 Controlled type 2 diabetes m ellitus without complication, without long-term current use of insulin 03/28/2017 11/28/2017 PAD (peripheral artery disease) 03/10/2017 03/30/2023 Overview: 02/06/2022 PVR ank/jackson/toe bilat: RIGHT SIDE JITENDRA: 1.19; TBI: 0.84, WNL at rest LEFT SIDE: JITENDRA: 1.19; TBI: 0.96, WNL at rest Family history of ischemic heart disease 03/14/2016 12/05/2017 BPPV (benign paroxysmal positional vertigo) 11/17/2015 12/05/2017 Postconcussion syndrome 10/30/201501/08 Memory loss 10/30/2015 01/24/2022 Pill dysphagia 05/17/2015 01/24/2022 Status post cervical spinal fusion 05/15/2015 12/05/2017 Lung nodules 05/15/2015 03/27/2023 Overview: See 2019 CT: Impression IMPRESSION: No acute pulmonary process is identified. Stable subcentimeter pulmonary nodules, most likely benign, given stability for over 2 years. No follow-up examination is required. Emphysema of lung 05/15/2015 03/26/2021 Hypotension 05/15/2015 07/19/2015 Neoplasm of uncertain behavior of skin 12/09/2012 11/28/2017 Atypical nevus of abdominal wall 12/09/2012 12/05/2017 Irritated//Inflamed Seborrheic Keratoses 12/09/2012 12/05/2017 Dizziness and giddiness 08/24/201211/11 Hyperlipidemia 03/10/2017 Diverticulitis 11/28/2017 Diabetes mellitus 07/19/2015 documented as of this encounter (statuses as of 12/18/2023) [facility] Hyperkalemia- Primary Hyperpotassemia Essential hypertension Unspecified essential hypertension [facility] Diagnosis Vitamin D deficiency Unspecified vitamin D deficiency [facility]* Diagnosis Renal cyst Unspecified congenital cystic kidney disease documented in this encounter [facility] note* Diagnosis Type 2 diabetes mellitus without retinopathy (HCC)- Primary Type II or unspecified type diabetes mellitus without mention of complication, not stated as uncontrolled Type 2 diabetes mellitus with peripheral neuropathy (HCC) Combined form of age-related cataract, 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 Crystalline deposits in vitreous Hypertensive retinopathy, bilateral Lesion of right lower eyelid [facility]* Diagnosis Asthma, unspecified asthma severity, unspecified whether complicated, unspecified whether persistent documented in this encounter [facility] note* Diagnosis Asthma, unspecified asthma severity, unspecified whether complicated, unspecified whether persistent documented in this encounter [facility]* Diagnosis Mild persistent asthma without complication- Primary Unspecified asthma Lung nodules Other nonspecific abnormal finding of lung field Cigarette smoker Tobacco use disorder Gastroesophageal reflux disease, unspecified whether esophagitis present documented in this encounter [facility] note* Diagnosis Essential hypertension Unspecified essential hypertension [facility]* Diagnosis Type 2 diabetes mellitus with diabetic neuropathy, without long-term current use of insulin ([facility])- Primary Mixed hyperlipidemia Pulmonary HTN (HCC) Other chronic pulmonary heart diseases Hyperkalemia Hyperpotassemia Screening breast examination Breast screening, unspecified documented [facility]* Diagnosis Screening breast examination- Primary Breast screening, unspecified [facility]* Diagnosis Screening breast examination Breast screening, unspecified [facility]* Diagnosis Gastroesophageal reflux disease without esophagitis Esophageal reflux documented [facility]* Diagnosis Recurrent major depression in partial remission (HCC) Major depressive disorder, recurrent episode, in partial or unspecified remission Controlled type 2 diabetes mellitus without complication, without long-term current use of insulin (HCC) Chronic antral gastritis Atrophic gastritis without mention of hemorrhage Gastroesophageal reflux disease without esophagitis Esophageal reflux [facility]* Diagnosis Asthma with COPD (HCC) Chronic obstructive asthma, unspecified [facility]* Diagnosis Acute pain of left shoulder- Primary Recurrent major depression in partial remission (HCC) Major depressive disorder, recurrent episode, in partial or unspecified remission [facility] Diagnosis Type 2 diabetes mellitus with diabetic neuropathy, without long-term current use of insulin (HCC)- Primary Renal cyst Unspecified congenital cystic kidney disease Mixed hyperlipidemia Chronic obstructive pulmonary disease, unspecified COPD type (HCC) Squamous cell skin cancer, nasal tip Squamous cell carcinoma of skin of other and unspecified parts of face Severe episode of recurrent major depressive disorder, without psychotic features (HCC) Screening for HIV (human immunodeficiency virus) Special screening examination for other specified viral diseases [facility] Diagnosis Asthma with COPD (HCC) Chronic obstructive asthma, unspecified [facility] Diagnosis Acute pain of right shoulder- Primary [facility] Diagnosis Chronic obstructive pulmonary disease, unspecified COPD type (HCC)- Primary Asthma with COPD (HCC) Chronic obstructive asthma, unspecified Pulmonary HTN (HCC) Other chronic pulmonary heart diseases Tobacco abuse Tobacco use disorder Essential hypertension Unspecified essential hypertension Mixed hyperlipidemia PAD (peripheral artery disease) (HCC) Peripheral vascular disease, unspecified Type 2 diabetes mellitus with diabetic neuropathy, without long-term current use of insulin (HCC) Gastroesophageal reflux disease, unspecified whether esophagitis present Lung nodules Other nonspecific abnormal finding of lung field Dysphagia, unspecified type Degeneration of lumbar or lumbosacral intervertebral disc Back pain, unspecified back location, unspecified back pain laterality, unspecified chronicity Carpal tunnel 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 Carpal tunnel syndrome Acute pain of right shoulder Acute pain of left shoulder Severe episode of recurrent major depressive disorder, without psychotic features (HCC) Hypercalcemia Vitamin D deficiency Unspecified vitamin D deficiency Need for influenza vaccination Need for prophylactic vaccination and inoculation against influenza Need for vaccination Need for prophylactic vaccination and inoculation against unspecified single disease Encounter for screening for osteoporosis Special screening for osteoporosis Encounter for screening for cardiovascular disorders Screening for other and unspecified cardiovascular conditions Chest pain, unspecified type SVT (supraventricular tachycardia) ([facility]) Other specified cardiac dysrhythmias Palpitations Medicare annual wellness visit, initial Routine general medical examination at a health care facility [facility] Diagnosis Chronic antral gastritis Atrophic gastritis without mention of hemorrhage Gastroesophageal reflux disease without esophagitis Esophageal reflux documented in this encounter [facility]* Diagnosis Controlled type 2 diabetes mellitus without complication, without long-term current use of insulin ([facility]) [facility] Diagnosis Essential hypertension- Primary Unspecified essential hypertension SVT (supraventricular tachycardia) ([facility]) Other specified cardiac dysrhythmias PAD (peripheral artery disease) (HCC) Peripheral vascular disease, unspecified Chronic obstructive pulmonary disease, unspecified COPD type (HCC) Pulmonary HTN (HCC) Other chronic pulmonary heart diseases Asthma with COPD ([facility]) Chronic obstructive asthma, unspecified Tobacco abuse Tobacco use disorder Mixed hyperlipidemia Type 2 diabetes mellitus with diabetic neuropathy, without long-term current use of insulin (HCC) Gastroesophageal reflux disease without esophagitis Esophageal reflux Chronic antral gastritis Atrophic gastritis without mention of hemorrhage Dysphagia, unspecified type Osteopenia after menopause Squamous cell skin cancer, nasal tip Squamous cell carcinoma of skin of other and unspecified parts of face Degeneration of lumbar or lumbosacral intervertebral disc [facility] Diagnosis Epigastric pain- Primary Abdominal pain, epigastric Major depressive disorder, recurrent severe without psychotic features ([facility]) Major depressive disorder, recurrent episode, severe, without mention of psychotic behavior Type 2 diabetes mellitus with diabetic neuropathy, without long-term current use of insulin (HCC) Chronic obstructive pulmonary disease, unspecified COPD type (HCC) Nausea Nausea alone Diarrhea, unspecified type [facility] Vitamin D deficiency Unspecified vitamin D deficiency [facility] Diagnosis Elevated blood protein- Primary Other disorders of plasma protein metabolism Elevated lipase Other nonspecific abnormal serum enzyme levels Elevated lymphocytes Lymphocytosis (symptomatic) [facility] Diagnosis Hypercalcemia- Primary Elevated lipase Other nonspecific abnormal serum enzyme levels [facility] Diagnosis Laceration of right middle finger without foreign body without damage to nail, subsequent encounter- Primary [facility] Diagnosis Elevated lipase- Primary Other nonspecific abnormal serum enzyme levels [facility] Diagnosis Chronic antral gastritis Atrophic gastritis without mention of hemorrhage Gastroesophageal reflux disease without esophagitis Esophageal reflux [facility]* Diagnosis Shoulder impingement- Primary Other affections of shoulder region, not elsewhere classified Calcific tendonitis of right shoulder Sternoclavicular joint pain, right [facility]* Diagnosis Essential hypertension- Primary Unspecified essential hypertension [facility] Diagnosis Controlled type 2 diabetes mellitus without complication, without long-term current use of insulin (HCC) [facility] Diagnosis Essential hypertension Unspecified essential hypertension [facility] Diagnosis Screening for ischemic heart disease- Primary [facility] Diagnosis Asthma with COPD Chronic obstructive asthma, unspecified [facility] Diagnosis Syncope and collapse- Primary Neck pain Cervicalgia Rib pain Chest pain, unspecified [facility] Diagnosis Encounter for screening for cardiovascular disorders Screening for other and unspecified cardiovascular conditions Chest pain, unspecified type [facility] Diagnosis Elevated lipase Other nonspecific abnormal serum enzyme levels [facility]* Diagnosis Screening breast examination Breast screening, unspecified documented in this encounter [facility]* Diagnosis Syncope and collapse- Primary Essential hypertension Unspecified essential hypertension Pulmonary HTN (HCC) Other chronic pulmonary heart diseases Chronic obstructive pulmonary disease, unspecified COPD type (HCC) Tobacco abuse Tobacco use disorder Mixed hyperlipidemia Type 2 diabetes mellitus with diabetic neuropathy, without long-term current use of insulin (HCC) Chronic antral gastritis Atrophic gastritis without mention of hemorrhage Gastroesophageal reflux disease without esophagitis Esophageal reflux Degeneration of lumbar or lumbosacral intervertebral disc Dyshidrotic hand dermatitis Dyshidrosis Encounter for screening for lung cancer Vaginal pain Unspecified symptom associated with female genital organs Major depressive disorder, recurrent 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) Major depressive disorder, recurrent episode, severe, without mention of psychotic behavior At risk for polypharmacy Controlled type 2 diabetes mellitus without complication, without long-term current use of insulin (HCC) [facility] Diagnosis Mixed hyperlipidemia- Primary Hypertriglyceridemia Pure hyperglyceridemia [facility] Diagnosis Encounter for screening for lung cancer- Primary Tobacco use current [facility]* Diagnosis Syncope and collapse Abnormal CT of brain Nonspecific (abnormal) findings on radiological and other examination of skull and head [facility] Diagnosis Controlled type 2 diabetes mellitus without complication, without long-term current use of insulin (HCC) documented in this encounter [facility] for referral (narrative)* Diagnostic Procedure Only (Routine) - Closed Specialty Diagnoses / Procedures Referred By Alizaac t Referred To Contact US IMAGING Diagnoses Renal cyst Procedures US KIDNEY/BLADDER US RETROPERITONEAL REAL TIME W/IMAGE COMPLETE Bebeto Petersen MD [address] [place] [address] Us Imaging Referral ID Status Reason Start Date Expiration Date V isits Requested Visits Authorized [id number] Closed Auto-Generate d Referral 01/24/2022 02/23/2023 1 1 [facility] for referral (narrative)* Diagnostic Procedure Only (Routine) - Authorized Specialty Diagnoses / Procedures Referred By Marcelo t Referred To Contact BR IMAGING Diagnoses Screening breast examination Procedures CARLOS EDUARDO SCREENING SCREENING MAMMOGRAPHY BI 2-VIEW BREAST INC Bebeto Sarabia MD [facility] [place] [address] Br Imaging [address] [place] [address] Referral ID Status Reason Start Date Expiration Date Visits Requested Visits Authorized [id number] Authorized Auto-Generat ed Referral 03/12/2022 04/11/2023 1 1 [facility] for referral (narrative)* Diagnostic Procedure Only (Routine) - Pending Review Specialty Diagnoses / Procedures [facility] To [facility] Diagnoses Screening breast examination Procedures CARLOS EDUARDO SCREENING SCREENING MAMMOGRAPHY BI 2-VIEW BREAST INC Bebeto Sarabia MD [address] [place] [address] Br Imaging [address] [place] [address] Referral ID Status Reason Start Date Expiration Date Visits Requested Visits Authorized [id number] Pending Review Auto-Generat ed Referral 03/13/2022 04/12/2023 1 1 [facility] for referral (narrative)* Diagnostic Procedure Only (Routine) - Authorized Specialty Diagnoses / Procedures Referred By Contac t Referred To Contact BR IMAGING Diagnoses Screening breast examination Procedures CARLOS EDUARDO SCREENING SCREENING MAMMOGRAPHY BI 2-VIEW BREAST INC CAD Bebeto Petersen MD [address] [place] [address] Br Imaging [address] [place] [address] Referral ID Status Reason Start Date Expiration Date Visits Requested Visits Authorized [id number] Authorized Auto-Generat ed Referral 03/12/2022 04/11/2023 1 1 [facility] for referral (narrative)* Diagnostic Procedure Only (Routine) - Pending Review Specialty Diagnoses / Procedures Referred By Marcelo benedict Referred To Contact XR IMAGING Diagnoses Acute pain of left shoulder Procedures XR SHOULDER GENERAL 3V OR MORE AP/TRUE AP/OTHER LEFT RADEX SHOULDER COMPLETE MINIMUM 2 VIEWS Bebeto Petersen MD [facility] [place] [address] Xr Imaging Referral ID Status Reason Start Date Expiration Date Visits Requested Visits Authorized [id number] Pending Review Auto-Generat ed Referral 05/24/2022 06/23/2023 1 1 [facility] for referral (narrative)* Diagnostic Procedure Only (Routine) - Closed Specialty Diagnoses / Procedures Referred By Marcelo benedict Referred To Contact XR IMAGING Diagnoses Acute pain of right shoulder Procedures XR SHOULDER GENERAL 3V OR MORE AP/TRUE AP/OTHER RIGHT RADEX SHOULDER COMPLETE MINIMUM 2 VIEWS Bebeto Petersen MD [address] [place] [address] Xr Imaging Referral ID Status Reason Start Date Expiration Date V isits Requested Visits Authorized [id number] Closed Auto-Generate d Referral 06/03/2022 07/03/2023 1 1 [facility] for referral (narrative)* Diagnostic Procedure Only (Routine) - Pending Review Specialty Diagnoses / Procedures Referred By Marcelo benedict Referred To Contact MOLECULAR & FUNCTIONAL IMAGING Diagnoses Encounter for screening for cardiovascular disorders Chest pain, unspecified type Procedures NM CARDIAC PERF STRESS/PHARM MYOCARDIAL SPECT MULTIPLE STUDIES Carolina Mirza PA-C [address] [place] [address] Molecular & Functional Imaging [address] [place] [id number] Referral ID Status Reason Start Date Expiration Date Visits Requested Visits Authorized [id number] Pending Review Auto-Generat ed Referral 08/08/2022 09/07/2023 1 1 [facility] for referral (narrative)* Diagnostic Procedure Only (Routine) - Authorized Specialty Diagnoses / Procedures [facility] Referred To Contact US IMAGING Diagnoses Elevated lipase Procedures US ABD RIGHT UPPER QUADRANT US ABDOMINAL REAL TIME W/IMAGE LIMITED Bebeto Petersen MD [address] [place] [address] Us Imaging Referral ID Status Reason Start Date Expiration Date Visits Requested Visits Authorized [id number] Authorized Auto-Generat ed Referral 02/20/2023 03/21/2024 1 1 [facility] for referral (narrative)* Outpatient Procedure (Routine) - Authorized Specialty Diagnoses / Procedures Referred By Contac t Referred To Contact [facility] Diagnoses Syncope and collapse Procedures ECG COMPLETE ECG ROUTINE ECG W/LEAST 12 LDS W/I&R Sahra Moreno APRN.CNP [address] [place] [address] [facility] [address] [place] [address] Referral ID Status Reason Start Date Expiration Date Visits Requested Visits Authorized [id number] Authorized Auto-Generat ed Referral 09/10/2023 09/09/2024 1 1 * MRI/CT (Urgent) - Authorized Specialty Diagnoses / Procedures Referred By Contac t Referred To Contact CT IMAGING Diagnoses Syncope and collapse Procedures CT BRAIN WO IVCON CT HEAD/BRAIN W/O CONTRAST MATERIAL PodlogarSahra APRN.GENERAL ASSISTANT [address] [place] [address] [place] [address] Referral ID Status Reason Start Date Expiration Date Visits Requested Visits Authorized [id number] Authorized Auto-Generat ed Referral 09/10/2023 10/09/2024 1 1 * Diagnostic Procedure Only (Routine) - Closed Specialty Diagnoses / Procedures [facility] To Contact XR IMAGING Diagnoses Syncope, unspecified syncope type Rib pain Procedures XR RIBS/CHEST 3V AP RIB/OBLS/CXR RIGHT RADEX RIBS UNI W/POSTEROANT CH MINIMUM 3 VIEWS PodlogSahra cunningham APRN.GENERAL ASSISTANT [address] [place] [address] [place] [address] Referral ID Status Reason Start Date Expiration Date V isits Requested Visits Authorized [id number] Closed Auto-Generate d Referral 09/10/2023 10/09/2024 1 1 * Diagnostic Procedure Only (Urgent) - Closed Specialty Diagnoses / Procedures [facility] To Contact XR IMAGING Diagnoses Neck pain Syncope, unspecified syncope type Procedures XR CERV OTHER 4V AP/LAT/OBL RADEX SPINE CERVICAL 4 OR 5 VIEWS PodlogarSahra APRN.GENERAL ASSISTANT [address] [place] [address] [place] [address] Referral ID Status Reason Start Date Expiration Date V isits Requested Visits Authorized [id number] Closed Auto-Generate d Referral 09/10/2023 10/09/2024 1 1 [facility] for referral (narrative)* Diagnostic Procedure Only (Routine) - Closed Specialty Diagnoses / Procedures [facility] Ref[facility] To Contact [facility] FUNCTIONAL [facility]AG[facility] Diagnoses Encounter for screening for cardiovascular disorders Chest pain, unspecified type Procedures NM CARDIAC PERF STRESS/PHARM MYOCARDIAL SPECT MULTIPLE STUDIES Carolina Mirza PA-C [address] [place] [address] Molecular & Functional Imaging [address] [place] [address] Referral ID Status Reason Start Date Expiration Date V isits Requested Visits Authorized [id number] Closed Auto-Generate d Referral 04/01/2023 04/30/2024 1 1 [facility] for referral (narrative)* Diagnostic Procedure Only (Routine) - Closed Specialty Diagnoses / Procedures Referred By Contac t Referred To Contact US IMAGING Diagnoses Elevated lipase Procedures US ABD RIGHT UPPER QUADRANT US ABDOMINAL REAL TIME W/IMAGE LIMITED Bebeto Petersen MD [address] [place] [address] Us Imaging [facility] Referral ID Status Reason Start Date Expiration Date V isits Requested Visits Authorized [id number] Closed Auto-Generate d Referral 02/20/2023 03/21/2024 1 1 [facility] for referral (narrative)* Diagnostic Procedure Only (Routine) - Closed Specialty Diagnoses / Procedures Referred By Marcelo t Referred To Contact BR IMAGING Diagnoses Screening breast examination Procedures CARLOS EDUARDO SCREENING SCREENING MAMMOGRAPHY BI 2-[place] [address] [place] [address] [facility] [address] [place] [address] Referral ID Status Reason Start Date Expiration Date V isits Requested Visits Authorized [id number] Closed Auto-Generate d Referral 03/13/2022 04/12/2023 1 1 [facility] for visit Narrative* Outpatient Procedure (Routine) - Closed Specialty Diagnoses / Procedures Referred By Contac t Referred To Contact [facility] Diagnoses History of gastric polyp Dysphagia, unspecified type Procedures EGD DIAGNOSTIC ESOPHAGOGASTRODUODENOSC OPY TRANSORAL DIAGNOSTIC Cira Frazier, COURT COMMISSIONER.GENERAL ASSISTANT [address] [place] [address] [facility] [address] [place] [address] Referral ID Status Reason Start Date Expiration Date V isits Requested Visits Authorized [id number] Closed Auto-Generate d Referral 01/28/2022 01/28/2023 1 1 [facility] for visit Narrative* Diagnostic Procedure Only (Routine) - Closed Specialty Diagnoses / Procedures Referred By Contmathew t Referred To Contact MOLECULAR & FUNCTIONAL IMAGING Diagnoses Encounter for screening for cardiovascular disorders Chest pain, unspecified type Procedures NM CARDIAC PERF STRESS/PHARM MYOCARDIAL SPECT MULTIPLE STUDIES Carolina Mirza PA-C [address] [place] [address] Molecular [facility] Functional Imaging [address] [place] [address] Referral ID Status Reason Start Date Expiration Date V isits Requested Visits Authorized [id number] Closed Auto-Generate d Referral 04/01/2023 04/30/2024 1 1 [facility] [place] for visit Narrative* Diagnostic Procedure Only (Routine) - Closed Specialty Diagnoses / Procedures Referred By Marcelo benedict Referred To Contact [facility] Diagnoses Screening breast examination Procedures CARLOS EDUARDO SCREENING SCREENING MAMMOGRAPHY BI 2-VIEW BREAST INC CAD Bebeto Petersen MD [address] [place] [address] [facility] [address] [place] [address] Referral ID Status Reason Start Date Expiration Date V isits Requested Visits Authorized [id number] Closed Auto-Generate d Referral 03/13/2022 04/12/2023 1 1 [facility] Summary Purpose Family History No Family History Records FoundNo Family History Records FoundNo Family History Records Found Advance Directives Documents on File Type Date Recorded 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 Advance Directive(s) 08/27/2018 3:33 PM Advance Directive(s) 12/24/2017 7:15 AM Advance Directive(s) 03/18/2017 9:19 AM Documents on File Type Date Recorded 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 Advance Directive(s) 08/27/2018 3:33 PM Advance Directive(s) 12/24/2017 7:15 AM Advance Directive(s) 03/18/2017 9:19 AM Documents on File Type Date Recorded 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 In the event of a Fluress shortage, administer [place]-Fluor 1 drop into both eyes as directed for applanation tonometry Given 02/12/2022 2:30 PM EDT 1 Drop PHENYLephrine 2.5 % 1 Drop (AK-DILATE, NIEVES-SYNEPHRINE) 1 Drop, BOTH EYES, DIRECTED, Starting on Fri02/12/22 at 1430, Until Fri02/13/22 at 0229, Administer for dilation PROTECT FROM LIGHT Given 02/12/2022 2:30 PM EDT 1 Drop tropicamide 1 % 1 Drop (MYDRIACYL) 1 Drop, BOTH EYES, DIRECTED, Starting on Fri02/12/22 at 1430, Until Fri02/13/22 at 0229, Administer for dilation Given 02/12/2022 2:30 PM EDT 1 Drop Inactive Administered Medications - up to 3 most recent administrations Medication Order MAR Action Action Date Dose Rate Site lactated ringers iv infusion 5-30 mL/hr, INTRAVENOUS, CONTINUOUS, Starting on Leticia 03/14/22 at 0700, Until Leticia 03/14/22 at 0833, Preprocedure New Bag/Syringe/Bottle 03/14/2022 7:00 AM EDT 30 mL/hr 30 mL/hr Inactive Administered Medications - up to 3 most recent administrations Medication Order MAR Action Action Date Dose Rate Site betamethasone acetate-betamethasone sodium phosphate 6 mg injection (CELESTONE) 6 mg, Injection - FOR ORTHO USE ONLY, ONE TIME INJECTION, 1 dose, Starting on Fri04/28/23 at 1538, Until Fri04/28/23 at 1538 Given 04/28/2023 3:38 PM EDT 6 mg Shoul saeid, Right lidocaine (PF) 10 mg/mL (1 %) 4 mL injection (XYLOCAINE) 4 mL, Injection - FOR ORTHO USE ONLY, ONE TIME INJECTION, 1 dose, Starting on Fri04/28/23 at 1538, Until Fri04/28/23 at 1538 Given 04/28/2023 3:38 PM EDT 4 mL Shoul saeid, Right Reason for Referral Specialty Diagnoses / Procedures Referred By Marcelo benedict Referred To Contact Barbie Ruiz MD [address] [place] [address] Referral ID Status Reason Start Date Expiration Date Visits Re quested Visits Authorized [id number] Closed 1 1 Specialty Diagnoses / Procedures Referred By Marcelo benedict Referred To Contact [facility] Diagnoses Mild persistent asthma without complication Procedures NITRIC OXIDE, EXHALED NITRIC OXIDE GAS DETERMINATION Barbie Ruiz MD [address] [place] [address] [address] Referral ID Status Reason Start Date Expiration Date V isits Requested Visits Authorized [id number] Closed Auto-Generate d Referral 02/28/2022 03/30/2023 1 1 Specialty Diagnoses / Procedures Referred By Marcelo benedict Referred To Contact [facility] Diagnoses Mild persistent asthma without complication Procedures SPIROMETRY WITH DILATOR IF OBSTRUCTED BRNCDILAT RSPSE SPMTRY PRE&POST-BRNCDILAT ADMN Barbie Ruiz MD [address] [place] [address] [address] Referral ID Status Reason Start Date Expiration Date V isits Requested Visits Authorized [id number] Closed Auto-Generate d Referral 02/28/2022 03/30/2023 1 1 Specialty Diagnoses / Procedures Referred By Contac t Referred To Contact Bebeto Petersen MD [address] [place] [address] Referral ID Status Reason Start Date Expiration Date Visits Re quested Visits Authorized [id number] Closed 1 1 Specialty Diagnoses / Procedures Referred By Contac t Referred To Contact Carolina Mirza PA-C [address] [place] [address] Referral ID Status Reason Start Date Expiration Date Visits Re quested Visits Authorized [id number] Closed 1 1 Specialty Diagnoses / Procedures Referred By Contac t Referred To Contact Diagnoses Encounter for screening for lung cancer Procedures CONSULT LUNG CANCER SCREENING CLINIC Carolina Mirza PA-C [address] [place] [address] Referral ID Status Reason Start Date Expiration Date Visits Requested Visits Authorized [id number] Ref Not Required PCP Requested Referral 3 12/28/2023 1 1 Specialty Diagnoses / Procedures Referred By Contac t Referred To Contact Gynecology Diagnoses Vaginal pain Procedures CONSULT TO GYNECOLOGY OFFICE/OUTPATIENT [facility] MDM 60-74 MINUTES Carolina Mirza PA-C [address] [place] [address] Referral ID Status Reason Start Date Expiration Date Visits Requested Visits Authorized [id number] Authorized PCP Requested Referral Auto-Generate d Referral 3 09/28/2024 1 1 Specialty Diagnoses / Procedures Referred By Contac t Referred To Contact CT IMAGING Diagnoses Encounter for screening for lung cancer Tobacco use current Procedures CT LUNG SCREEN WO IVCON COMPUTED TOMOGRAPHY THORAX LW DOSE LNG CA Heike Delatorre, COURT COMMISSIONER.GENERAL ASSISTANT [address] [place] [address] Ct Imaging [facility] Referral ID Status Reason Start Date Expiration Date Visits Requested Visits Authorized [id number] Authorized Auto-Generat ed Referral 10/14/2023 11/09/2024 1 1 Specialty Diagnoses / Procedures Referred By Contac t Referred To Contact MR IMAGING Diagnoses Syncope and collapse Abnormal CT of brain Procedures MRI BRAIN WO/W IVCON MRI BRAIN BRAIN STEM W/O W/CONTRAST MATERIAL Sahra Moreno, COURT COMMISSIONER.GENERAL ASSISTANT [address] [place] [address] [place] [address] Referral ID Status Reason Start Date Expiration Date V isits Requested Visits Authorized [id number] Closed Auto-Generate d Referral 09/12/2023 10/11/2024 1 1 Referral ID Status Reason Start Date Expiration Date V isits Requested Visits Authorized [id number] Authorized 11/10/2023 11/09/2024 1 1 Referral ID Status Reason Start Date Expiration Date Visits Re quested Visits Authorized [id number] Closed 1 1 Additional Source Comments INFORMATION SOURCE (unrecogn ized section and content) DATE CREATED AUTHOR AUTHOR'S ORGANIZ ATION 09/13/2023 [facility] DATE CREATED AUTHOR AUTHOR'S ORGANIZ ATION 12/16/2023 [facility] Source Comments (unrecognize d section and content) In the event this informatio n is protected by the Federal Confidentiality of Alcohol and Drug Abuse Patient Records regulations: The Federal rules restrict any use of the information to criminally investigate or prosecute any alcohol or drug abuse patient.[facility] the event this information is protected by the Federal Confidentiality of Alcohol and Drug Abuse Patient Records regulations: The Federal rules restrict any use of the information to criminally investigate or prosecute any alcohol or drug abuse patient.[facility] CenterIn the event this information is protected by the Federal Confidentiality of Alcohol and Drug Abuse Patient Records regulations: The Federal rules restrict any use of the information to criminally investigate or prosecute any alcohol or drug abuse patient.[facility] CenterIn the event this information is protected by the Federal Confidentiality of Alcohol and Drug Abuse Patient Records regulations: The Federal rules restrict any use of the information to criminally investigate or prosecute any alcohol or drug abuse patient.[facility] CenterIn the event this information is protected by the Federal Confidentiality of Alcohol and Drug Abuse Patient Records regulations: The Federal rules restrict any use of the information to criminally investigate or prosecute any alcohol or drug abuse patient.[facility] CenterIn the event this information is protected by the Federal Confidentiality of Alcohol and Drug Abuse Patient Records regulations: The Federal rules restrict any use of the information to criminally investigate or prosecute any alcohol or drug abuse patient.[facility] CenterIn the event this information is protected by the Federal Confidentiality of Alcohol and Drug Abuse Patient Records regulations: The Federal rules restrict any use of the information to criminally investigate or prosecute any alcohol or drug abuse patient.[facility] CenterIn the event this information is protected by the Federal Confidentiality of Alcohol and Drug Abuse Patient Records regulations: The Federal rules restrict any use of the information to criminally investigate or prosecute any alcohol or drug abuse patient.[facility] CenterIn the event this information is protected by the Federal Confidentiality of Alcohol and Drug Abuse Patient Records regulations: The Federal rules restrict any use of the information to criminally investigate or prosecute any alcohol or drug abuse patient.[facility] CenterIn the event this information is protected by the Federal Confidentiality of Alcohol and Drug Abuse Patient Records regulations: The Federal rules restrict any use of the information to criminally investigate or prosecute any alcohol or drug abuse patient.[facility] CenterIn the event this information is protected by the Federal Confidentiality of Alcohol and Drug Abuse Patient Records regulations: The Federal rules restrict any use of the information to criminally investigate or prosecute any alcohol or drug abuse patient.[facility] CenterIn the event this information is protected by the Federal Confidentiality of Alcohol and Drug Abuse Patient Records regulations: The Federal rules restrict any use of the information to criminally investigate or prosecute any alcohol or drug abuse patient.[facility] CenterIn the event this information is protected by the Federal Confidentiality of Alcohol and Drug Abuse Patient Records regulations: The Federal rules restrict any use of the information to criminally investigate or prosecute any alcohol or drug abuse patient.[facility] CenterIn the event this information is protected by the Federal Confidentiality of Alcohol and Drug Abuse Patient Records regulations: The Federal rules restrict any use of the information to criminally investigate or prosecute any alcohol or drug abuse patient.[facility] CenterIn the event this information is protected by the Federal Confidentiality of Alcohol and Drug Abuse Patient Records regulations: The Federal rules restrict any use of the information to criminally investigate or prosecute any alcohol or drug abuse patient.[facility] CenterIn the event this information is protected by the Federal Confidentiality of Alcohol and Drug Abuse Patient Records regulations: The Federal rules restrict any use of the information to criminally investigate or prosecute any alcohol or drug abuse patient.[facility] CenterIn the event this information is protected by the Federal Confidentiality of Alcohol and Drug Abuse Patient Records regulations: The Federal rules restrict any use of the information to criminally investigate or prosecute any alcohol or drug abuse patient.[facility] CenterIn the event this information is protected by the Federal Confidentiality of Alcohol and Drug Abuse Patient Records regulations: The Federal rules restrict any use of the information to criminally investigate or prosecute any alcohol or drug abuse patient.[facility] CenterIn the event this information is protected by the Federal Confidentiality of Alcohol and Drug Abuse Patient Records regulations: The Federal rules restrict any use of the information to criminally investigate or prosecute any alcohol or drug abuse patient.[facility] CenterIn the event this information is protected by the Federal Confidentiality of Alcohol and Drug Abuse Patient Records regulations: The Federal rules restrict any use of the information to criminally investigate or prosecute any alcohol or drug abuse patient.[facility] CenterIn the event this information is protected by the Federal Confidentiality of Alcohol and Drug Abuse Patient Records regulations: The Federal rules restrict any use of the information to criminally investigate or prosecute any alcohol or drug abuse patient.[facility] CenterIn the event this information is protected by the Federal Confidentiality of Alcohol and Drug Abuse Patient Records regulations: The Federal rules restrict any use of the information to criminally investigate or prosecute any alcohol or drug abuse patient.[facility] CenterIn the event this information is protected by the Federal Confidentiality of Alcohol and Drug Abuse Patient Records regulations: The Federal rules restrict any use of the information to criminally investigate or prosecute any alcohol or drug abuse patient.[facility] CenterIn the event this information is protected by the Federal Confidentiality of Alcohol and Drug Abuse Patient Records regulations: The Federal rules restrict any use of the information to criminally investigate or prosecute any alcohol or drug abuse patient.[facility] CenterIn the event this information is protected by the Federal Confidentiality of Alcohol and Drug Abuse Patient Records regulations: The Federal rules restrict any use of the information to criminally investigate or prosecute any alcohol or drug abuse patient.[facility] CenterIn the event this information is protected by the Federal Confidentiality of Alcohol and Drug Abuse Patient Records regulations: The Federal rules restrict any use of the information to criminally investigate or prosecute any alcohol or drug abuse patient.[facility] CenterIn the event this information is protected by the Federal Confidentiality of Alcohol and Drug Abuse Patient Records regulations: The Federal rules restrict any use of the information to criminally investigate or prosecute any alcohol or drug abuse patient.[facility] CenterIn the event this information is protected by the Federal Confidentiality of Alcohol and Drug Abuse Patient Records regulations: The Federal rules restrict any use of the information to criminally investigate or prosecute any alcohol or drug abuse patient.[facility] CenterIn the event this information is protected by the Federal Confidentiality of Alcohol and Drug Abuse Patient Records regulations: The Federal rules restrict any use of the information to criminally investigate or prosecute any alcohol or drug abuse patient.[facility] CenterIn the event this information is protected by the Federal Confidentiality of Alcohol and Drug Abuse Patient Records regulations: The Federal rules restrict any use of the information to criminally investigate or prosecute any alcohol or drug abuse patient.[facility] CenterIn the event this information is protected by the Federal Confidentiality of Alcohol and Drug Abuse Patient Records regulations: The Federal rules restrict any use of the information to criminally investigate or prosecute any alcohol or drug abuse patient.[facility] CenterIn the event this information is protected by the Federal Confidentiality of Alcohol and Drug Abuse Patient Records regulations: The Federal rules restrict any use of the information to criminally investigate or prosecute any alcohol or drug abuse patient.[facility] CenterIn the event this information is protected by the Federal Confidentiality of Alcohol and Drug Abuse Patient Records regulations: The Federal rules restrict any use of the information to criminally investigate or prosecute any alcohol or drug abuse patient.[facility] CenterIn the event this information is protected by the Federal Confidentiality of Alcohol and Drug Abuse Patient Records regulations: The Federal rules restrict any use of the information to criminally investigate or prosecute any alcohol or drug abuse patient.[facility] CenterIn the event this information is protected by the Federal Confidentiality of Alcohol and Drug Abuse Patient Records regulations: The Federal rules restrict any use of the information to criminally investigate or prosecute any alcohol or drug abuse patient.[facility] CenterIn the event this information is protected by the Federal Confidentiality of Alcohol and Drug Abuse Patient Records regulations: The Federal rules restrict any use of the information to criminally investigate or prosecute any alcohol or drug abuse patient.[facility] CenterIn the event this information is protected by the Federal Confidentiality of Alcohol and Drug Abuse Patient Records regulations: The Federal rules restrict any use of the information to criminally investigate or prosecute any alcohol or drug abuse patient.[facility] CenterIn the event this information is protected by the Federal Confidentiality of Alcohol and Drug Abuse Patient Records regulations: The Federal rules restrict any use of the information to criminally investigate or prosecute any alcohol or drug abuse patient.[facility] CenterIn the event this information is protected by the Federal Confidentiality of Alcohol and Drug Abuse Patient Records regulations: The Federal rules restrict any use of the information to criminally investigate or prosecute any alcohol or drug abuse patient.[facility] CenterIn the event this information is protected by the Federal Confidentiality of Alcohol and Drug Abuse Patient Records regulations: The Federal rules restrict any use of the information to criminally investigate or prosecute any alcohol or drug abuse patient.[facility] CenterIn the event this information is protected by the Federal Confidentiality of Alcohol and Drug Abuse Patient Records regulations: The Federal rules restrict any use of the information to criminally investigate or prosecute any alcohol or drug abuse patient.[facility] CenterIn the event this information is protected by the Federal Confidentiality of Alcohol and Drug Abuse Patient Records regulations: The Federal rules restrict any use of the information to criminally investigate or prosecute any alcohol or drug abuse patient.[facility] CenterIn the event this information is protected by the Federal Confidentiality of Alcohol and Drug Abuse Patient Records regulations: The Federal rules restrict any use of the information to criminally investigate or prosecute any alcohol or drug abuse patient.[facility] CenterIn the event this information is protected by the Federal Confidentiality of Alcohol and Drug Abuse Patient Records regulations: The Federal rules restrict any use of the information to criminally investigate or prosecute any alcohol or drug abuse patient.[facility] CenterIn the event this information is protected by the Federal Confidentiality of Alcohol and Drug Abuse Patient Records regulations: The Federal rules restrict any use of the information to criminally investigate or prosecute any alcohol or drug abuse patient.[facility] CenterIn the event this information is protected by the Federal Confidentiality of Alcohol and Drug Abuse Patient Records regulations: The Federal rules restrict any use of the information to criminally investigate or prosecute any alcohol or drug abuse patient.[facility] CenterIn the event this information is protected by the Federal Confidentiality of Alcohol and Drug Abuse Patient Records regulations: The Federal rules restrict any use of the information to criminally investigate or prosecute any alcohol or drug abuse patient.[facility] CenterIn the event this information is protected by the Federal Confidentiality of Alcohol and Drug Abuse Patient Records regulations: The Federal rules restrict any use of the information to criminally investigate or prosecute any alcohol or drug abuse patient.[facility] CenterIn the event this information is protected by the Federal Confidentiality of Alcohol and Drug Abuse Patient Records regulations: The Federal rules restrict any use of the information to criminally investigate or prosecute any alcohol or drug abuse patient.[facility] CenterIn the event this information is protected by the Federal Confidentiality of Alcohol and Drug Abuse Patient Records regulations: The Federal rules restrict any use of the information to criminally investigate or prosecute any alcohol or drug abuse patient.[facility] CenterIn the event this information is protected by the Federal Confidentiality of Alcohol and Drug Abuse Patient Records regulations: The Federal rules restrict any use of the information to criminally investigate or prosecute any alcohol or drug abuse patient.[facility] CenterIn the event this information is protected by the Federal Confidentiality of Alcohol and Drug Abuse Patient Records regulations: The Federal rules restrict any use of the information to criminally investigate or prosecute any alcohol or drug abuse patient.[facility] CenterIn the event this information is protected by the Federal Confidentiality of Alcohol and Drug Abuse Patient Records regulations: The Federal rules restrict any use of the information to criminally investigate or prosecute any alcohol or drug abuse patient.[facility] CenterIn the event this information is protected by the Federal Confidentiality of Alcohol and Drug Abuse Patient Records regulations: The Federal rules restrict any use of the information to criminally investigate or prosecute any alcohol or drug abuse patient.[facility] CenterIn the event this information is protected by the Federal Confidentiality of Alcohol and Drug Abuse Patient Records regulations: The Federal rules restrict any use of the information to criminally investigate or prosecute any alcohol or drug abuse patient.[facility] CenterIn the event this information is protected by the Federal Confidentiality of Alcohol and Drug Abuse Patient Records regulations: The Federal rules restrict any use of the information to criminally investigate or prosecute any alcohol or drug abuse patient.[facility] CenterIn the event this information is protected by the Federal Confidentiality of Alcohol and Drug Abuse Patient Records regulations: The Federal rules restrict any use of the information to criminally investigate or prosecute any alcohol or drug abuse patient.[facility] CenterIn the event this information is protected by the Federal Confidentiality of Alcohol and Drug Abuse Patient Records regulations: The Federal rules restrict any use of the information to criminally investigate or prosecute any alcohol or drug abuse patient.[facility] CenterIn the event this information is protected by the Federal Confidentiality of Alcohol and Drug Abuse Patient Records regulations: The Federal rules restrict any use of the information to criminally investigate or prosecute any alcohol or drug abuse patient.[facility] CenterIn the event this information is protected by the Federal Confidentiality of Alcohol and Drug Abuse Patient Records regulations: The Federal rules restrict any use of the information to criminally investigate or prosecute any alcohol or drug abuse patient.[facility] CenterIn the event this information is protected by the Federal Confidentiality of Alcohol and Drug Abuse Patient Records regulations: The Federal rules restrict any use of the information to criminally investigate or prosecute any alcohol or drug abuse patient.[facility] CenterIn the event this information is protected by the Federal Confidentiality of Alcohol and Drug Abuse Patient Records regulations: The Federal rules restrict any use of the information to criminally investigate or prosecute any alcohol or drug abuse patient.[facility] CenterIn the event this information is protected by the Federal Confidentiality of Alcohol and Drug Abuse Patient Records regulations: The Federal rules restrict any use of the information to criminally investigate or prosecute any alcohol or drug abuse patient.[facility] CenterIn the event this information is protected by the Federal Confidentiality of Alcohol and Drug Abuse Patient Records regulations: The Federal rules restrict any use of the information to criminally investigate or prosecute any alcohol or drug abuse patient.[facility] CenterIn the event this information is protected by the Federal Confidentiality of Alcohol and Drug Abuse Patient Records regulations: The Federal rules restrict any use of the information to criminally investigate or prosecute any alcohol or drug abuse patient.[facility] CenterIn the event this information is protected by the Federal Confidentiality of Alcohol and Drug Abuse Patient Records regulations: The Federal rules restrict any use of the information to criminally investigate or prosecute any alcohol or drug abuse patient.[facility] CenterIn the event this information is protected by the Federal Confidentiality of Alcohol and Drug Abuse Patient Records regulations: The Federal rules restrict any use of the information to criminally investigate or prosecute any alcohol or drug abuse patient.[facility] Reason for Visit (unrecogniz ed section and content) Reason Comments Erroneous encounter-disregard Reason Onset Date Comments Refill Request 02/05/2022 Reason Comments Radiology US Specialty Diagnoses / Procedures Referred By Contac t Referred To Contact US IMAGING Diagnoses Renal cyst Procedures US KIDNEY/BLADDER US RETROPERITONEAL REAL TIME W/IMAGE COMPLETE Bebeto Petersen MD [address] [place] [address] Us Imaging Referral ID Status Reason Start Date Expiration Date V isits Requested Visits Authorized [id number] Closed Auto-Generate d Referral 01/24/2022 02/23/2023 1 1 Reason Comments Diabetes Specialty Diagnoses / Procedures Referred By Contac t Referred To Contact Ophthalmology Diagnoses Type 2 diabetes mellitus with peripheral neuropathy (HCC) Procedures CONSULT TO OPHTHALMOLOGY OFFICE/OUTPATIENT [facility] MDM 60-74 MINUTES Bebeto Petersen MD [address] [place] [address] Referral ID Status Reason Start Date Expiration Date V isits Requested Visits Authorized [id number] Closed PCP Requested Referral 01/24/2022 01/24/2023 1 1 Reason Comments Spirometry Specialty Diagnoses / Procedures Referred By Contac t Referred To Contact [facility] Diagnoses Mild persistent asthma without complication Procedures SPIROMETRY WITH DILATOR IF OBSTRUCTED BRNCDILAT RSPSE SPMTRY PRE&POST-BRNCDILAT ADMN Barbie Ruiz MD [address] [place] [address] [facility] [address] [place] [address] Referral ID Status Reason Start Date Expiration Date V isits Requested Visits Authorized [id number] Closed Auto-Generate d Referral 02/28/2022 03/30/2023 1 1 Specialty Diagnoses / Procedures Referred By Contac t Referred To Contact [facility] Diagnoses Mild persistent asthma without complication Procedures NITRIC OXIDE, EXHALED NITRIC OXIDE GAS DETERMINATION Barbie Ruiz MD [address] [place] [address] [facility] [address] [place] [address] Referral ID Status Reason Start Date Expiration Date V isits Requested Visits Authorized [id number] Closed Auto-Generate d Referral 02/28/2022 03/30/2023 1 1 Reason Comments Asthma Specialty Diagnoses / Procedures Referred By Contac t Referred To Contact Pulmonary and Critical Care Medicine Diagnoses Pulmonary HTN (HCC) Chronic obstructive pulmonary disease, unspecified COPD type (HCC) Lung nodules Procedures CONSULT TO PULM/CRITICAL CARE OFFICE/OUTPATIENT [facility] 60-74 MINUTES Bebeto Petersen MD [address] [place] [address] Referral ID Status Reason Start Date Expiration Date V isits Requested Visits Authorized [id number] Closed PCP Requested Referral 01/24/2022 01/24/2023 1 1 Reason Onset Date Comments Refill Request 03/06/2022 Reason Comments Follow Up 6 week Reason Comments Orders Reason Onset Date Comments Refill Request 05/03/2022 Reason Comments Pain (Shoulder Pain) left Reason Comments Diabetes follow up. Discuss A 1c Hyperlipidemia follow up Reason Onset Date Comments Refill Request 07/05/2022 Reason Comments Patient Question Orders Reason Onset Date Comments Yearly Exam Ear Pain Right, 1 week Immunizations 08/08/2022 Flu vaccination Reason Onset Date Comments Refill Request 10/25/2022 Reason Onset Date Comments Refill Request 11/22/2022 Reason Comments 6 Month Exam Reason Comments Future Appointment virtual apt today Reason Comments Acute Visit Reason Onset Date Comments Refill Request 01/24/2023 Reason Comments Suture Removal Right middle finger Reason Comments Results Reason Comments Patient Update Reason Onset Date Comments Refill Request 03/21/2023 Reason Onset Date Comments Refill Request 04/18/2023 Reason Comments Established Patient Pain Specialty Diagnoses / Procedures Referred By Contac t Referred To Contact Orthopedics Diagnoses Calcific tendonitis of right shoulder Procedures CONSULT TO ORTHOPAEDICS OFFICE/OUTPATIENT [facility] 60-74 MINUTES Carolina Mirza PA-C [address] [place] [address] Referral ID Status Reason Start Date Expiration Date V isits Requested Visits Authorized [id number] Closed PCP Requested Referral 04/03/2023 04/01/2024 1 1 Reason Onset Date Comments Refill Request 05/19/2023 Reason Comments Refill Request Reason Onset Date Comments Refill Request 08/08/2023 Reason Comments Syncope Reason Comments Syncope Last evening x1. Specialty Diagnoses / Procedures Referred By Contac t Referred To Contact US IMAGING Diagnoses Elevated lipase Procedures US ABD RIGHT UPPER QUADRANT US ABDOMINAL REAL TIME W/IMAGE LIMITED Bebeto Petersen MD [address] [place] [address] Us Imaging [facility] Referral ID Status Reason Start Date Expiration Date V isits Requested Visits Authorized [id number] Closed Auto-Generate d Referral 02/20/2023 03/21/2024 1 1 Reason Comments Radiology NM Specialty Diagnoses / Procedures Referred By Contac t Referred To Contact MOLECULAR & FUNCTIONAL IMAGING Diagnoses Encounter for screening for cardiovascular disorders Chest pain, unspecified type Procedures NM CARDIAC PERF STRESS/PHARM MYOCARDIAL SPECT MULTIPLE STUDIES Carolina Mirza PA-C [address] [place] [address] Molecular & Functional Imaging [address] [place] [address] Referral ID Status Reason Start Date Expiration Date V isits Requested Visits Authorized [id number] Closed Auto-Generate d Referral 04/01/2023 04/30/2024 1 1 Reason Comments 6 Month Exam Reason Comments New Patient Specialty Diagnoses / Procedures Referred By Contac t Referred To Contact Diagnoses Encounter for screening for lung cancer Procedures CONSULT L[facility]G [facility]CREENING [facility] Carolina Mirza PA-C [address] [place] [address] Referral ID Status Reason Start Date Expiration Date Visits Requested Visits Authorized [id number] Ref Not Required PCP Requested Referral 12/28/2023 1 1 Specialty Diagnoses / Procedures Referred By Contac t Referred To Contact MR IMAGING Diagnoses Syncope and collapse Abnormal CT of brain Procedures MRI BRAIN WO/W IVCON MRI BRAIN BRAIN STEM W/O W/CONTRAST MATERIAL Sahra Moreno APRN.GENERAL ASSISTANT [address] [place] [address] Mr Imaging [facility] Referral ID Status Reason Start Date Expiration Date V isits Requested Visits Authorized [id number] Closed Auto-Generate d Referral 09/12/2023 10/11/2024 1 1 Reason Onset Date Comments Refill Request 10/16/2023 Reason Comments Insurance Authorization Reason Comments Appointment [facility] CT Scan Reason Onset Date Comments Refill Request 12/17/2023 Reason Onset Date Comments Refill Request 12/17/2023 Care Teams (unrecognized sec tion and content) Splitter Head Relationship Specialty Start Date End Date Bebeto Petersen MD [address] [facility] [place] [address] PCP - General Family Practice 08/17/12 Splitter Head Relationship Specialty Start Date End Date Bebeto Petersen MD [address] [facility] [address] PCP - General Family Practice 08/17/12 Splitter Head Relationship Specialty Start Date End Date Bebeto Petersen MD [address] [facility] [address] PCP - General Family Practice 08/17/12 Splitter Head Relationship Specialty Start Date End Date Bebeto Petersen MD [address] [facility] [address] PCP - General Family Practice 08/17/12 Splitter Head Relationship Specialty Start Date End Date Bebeto Petersen MD [address] [facility] [address] PCP - General Family Practice 08/17/12 Splitter Head Relationship Specialty Start Date End Date Bebeto Petersen MD [address] [facility] [address] PCP - General Family Practice 08/17/12 Splitter Head Relationship Specialty Start Date End Date Bebeto Petersen MD [address] [facility] [address] PCP - General Family Practice 08/17/12 Splitter Head Relationship Specialty Start Date End Date Bebeto Petersen MD [address] [facility] [address] PCP - General Family Practice 08/17/12 Splitter Head Relationship Specialty Start Date End Date Bebeto Petersen MD [address] [facility] [address] PCP - General Family Practice 08/17/12 Splitter Head Relationship Specialty Start Date End Date Bebeto Petersen MD [address] [facility] [address] PCP - General Family Practice 08/17/12 Splitter Head Relationship Specialty Start Date End Date Bebeto Petersen MD [address] [facility] [address] PCP - General Family Practice 08/17/12 Splitter Head Relationship Specialty Start Date End Date Bebeto Petersen MD [address] [facility] [address] PCP - General Family Practice 08/17/12 Splitter Head Relationship Specialty Start Date End Date Bebeto Petersen MD [address] [facility] [address] PCP - General Family Practice 08/17/12 Splitter Head Relationship Specialty Start Date End Date Bebeto Petersen MD [address] [facility] [address] PCP - General Family Practice 08/17/12 Splitter Head Relationship Specialty Start Date End Date Bebeto Petersen MD [address] [facility] [address] PCP - General Family Practice 08/17/12 Splitter Head Relationship Specialty Start Date End Date Bebeto Petersen MD [address] [facility] [address] PCP - General Family Medicine 08/17/12 Splitter Head Relationship Specialty Start Date End Date Bebeto Petersen MD [address] [facility] [address] PCP - General Family Medicine 08/17/12 Splitter Head Relationship Specialty Start Date End Date Bebeto Petersen MD [address] [facility] [address] PCP - General Family Medicine 08/17/12 Splitter Head Relationship Specialty Start Date End Date Bebeto Petersen MD [address] [facility] [address] PCP - General Family Medicine 08/17/12 Splitter Head Relationship Specialty Start Date End Date Bebeto Petersen MD [address] [facility] [address] PCP - General Family Medicine 08/17/12 Splitter Head Relationship Specialty Start Date End Date Bebeto Petersen MD [address] [facility] [address] PCP - General Family Medicine 08/17/12 Splitter Head Relationship Specialty Start Date End Date Bebeto Petersen MD [address] [facility] [address] PCP - General Family Medicine 08/17/12 Splitter Head Relationship Specialty Start Date End Date Bebeto Petersen MD [address] [facility] [address] PCP - General Family Medicine 08/17/12 Splitter Head Relationship Specialty Start Date End Date Bebeto Petersen MD [address] [facility] [address] PCP - General Family Medicine 08/17/12 Splitter Head Relationship Specialty Start Date End Date Bebeto Petersen MD [address] [facility] [address] PCP - General Family Medicine 08/17/12 Splitter Head Relationship Specialty Start Date End Date Bebeto Petersen MD [address] [facility] [address] PCP - General Family Medicine 08/17/12 Splitter Head Relationship Specialty Start Date End Date Bebeto Petersen MD [address] [facility] [address] PCP - General Family Medicine 08/17/12 Splitter Head Relationship Specialty Start Date End Date Bebeto Petersen MD [address] [facility] [address] PCP - General Family Medicine 08/17/12 Splitter Head Relationship Specialty Start Date End Date Bebeto Petersen MD [address] [facility] [address] PCP - General Family Medicine 08/17/12 Splitter Head Relationship Specialty Start Date End Date Bebeto Petersen MD [address] [facility] [address] PCP - General Family Medicine 08/17/12 Splitter Head Relationship Specialty Start Date End Date Bebeto Petersen MD [address] [facility] [address] PCP - General Family Medicine 08/17/12 Splitter Head Relationship Specialty Start Date End Date Bebeto Petersen MD [address] [facility] [address] PCP - General Family Medicine 08/17/12 Splitter Head Relationship Specialty Start Date End Date Bebeto Petersen MD [address] [facility] [address] PCP - General Family Medicine 08/17/12 Splitter Head Relationship Specialty Start Date End Date Bebeto Petersen MD [address] [facility] [address] PCP - General Family Medicine 08/17/12 Splitter Head Relationship Specialty Start Date End Date Bebeto Petersen MD [address] [facility] [place] [address] PCP - General Family Medicine 08/17/12 Splitter Head Relationship Specialty Start Date End Date Bebeto Petersen MD [address] [place] [address] PCP - General Family Medicine 08/17/12 Splitter Head Relationship Specialty Start Date End Date Bebeto Petersen MD [address] [place] [address] PCP - General Family Medicine 08/17/12 Splitter Head Relationship Specialty Start Date End Date Bebeto Petersen MD [address] [place] [address] PCP - General Family Medicine 08/17/12 Splitter Head Relationship Specialty Start Date End Date Bebeto Petersen MD [address] [place] [address] PCP - General Family Medicine 08/17/12 Splitter Head Relationship Specialty Start Date End Date Bebeto Petersen MD [address] [place] [address] PCP - General Family Medicine 08/17/12 Splitter Head Relationship Specialty Start Date End Date Bebeto Petersen MD [address] [place] [address] PCP - General Family Medicine 08/17/12 Splitter Head Relationship Specialty Start Date End Date Carolina Mirza PA-C [address] [place] [address] PCP - General Family Medicine 09/29/23 Splitter Head Relationship Specialty Start Date End Date Carolina Mirza PA-C [address] [facility] [address] PCP - General Family Medicine 09/29/23 Splitter Head Relationship Specialty Start Date End Date Carolina Mirza PA-C [address] [facility] [address] PCP - General Family Medicine 09/29/23 Barbie Ruiz MD [address] [facility] [place] [address] Pulmonary and Critical Care Medicine 10/14/23 Splitter Head Relationship Specialty Start Date End Date Carolina Mirza PA-C [address] [facility] [address] PCP - General Family Medicine 09/29/23 Barbie Ruiz MD [address] [facility] [place] [address] Pulmonary and Critical Care Medicine 10/14/23 Splitter Head Relationship Specialty Start Date End Date Carolina Mirza PA-C [address] [facility] [address] PCP - General Family Medicine 09/29/23 Barbie Ruiz MD [address] [facility] [place] [address] Pulmonary and Critical Care Medicine 10/14/23 Splitter Head Relationship Specialty Start Date End Date Carolina Mirza PA-C [address] [facility] [address] PCP - General Family Medicine 09/29/23 Barbie Ruiz MD [address] [address] Pulmonary and Critical Care Medicine 10/14/23 Splitter Head Relationship Specialty Start Date End Date Carolina Mirza PA-C [address] [facility] [address] PCP - General Family Medicine 09/29/23 Barbie Ruiz MD [address] [place] [address] Pulmonary and Critical Care Medicine 10/14/23 Splitter Head Relationship Specialty Start Date End Date Carolina Mirza PA-C [address] [facility] [address] PCP - General Family Medicine 09/29/23 Barbie Ruiz MD [address] [place] [address] Pulmonary and Critical Care Medicine 10/14/23 Splitter Head Relationship Specialty Start Date End Date Carolina Mirza PA-C [address] [facility] [address] PCP - General Family Medicine 09/29/23 Barbie Ruiz MD [address] [place] [address] Pulmonary and Critical Care Medicine 10/14/23 Splitter Head Relationship Specialty Start Date End Date Carolina Mirza PA-C [address] [facility] [address] PCP - General Family Medicine 09/29/23 Barbie Ruiz MD [address] [place] [address] Pulmonary and Critical Care Medicine 10/14/23 FOR RECORDS PERTAINING TO PATIENTS WHO ARE OR HAVE BEEN ENROLLED IN A CHEMICAL DEPENDENCY/SUBSTANCEABUSE PROGRAM, SOME INFORMATION MAY BE OMITTED. This clinical summary was aggregated from multiple sources. Caution should be exercised in using it in the provision of clinical care. This summary normalizes information from multiple sources, and as a consequence, information in this document may materially change the coding, format and clinical context of patient data. In addition, data may be omitted in some cases. CLINICAL DECISIONS SHOULD BE BASED ON THE PRIMARY CLINICAL RECORDS. [employer] provides no warranty or guarantee of the accuracy or completeness of information in this document.
== END | disposition home or self-care (01) ==
LOC: US 11:47
PROVIDERS: PCP Family Medicine; Referring Provider Family Medicine; Visit Provider Family Medicine
DX: E04.1 Nontoxic single thyroid nodule (principal)
CPT/HCPCS: 76536

== ENCOUNTER → 2024-01-14 | Outpatient (CLI) | payer MEDICARE, MEDICAID, SELFPAY ==
[2024-01-14 15:50] LABS: Iron 47 ug/dL (50-170); Iron Binding Capacity,Total 403 ug/dL (250-450); PERCENT IRON SATURATION 11.7 % (15.0-55.0)
[2024-01-14 15:56] LABS: Vitamin B12 290 pg/mL (211-911)
[2024-01-16 05:07] LABS: Transferrin 310 mg/dL (192-364)
== END | disposition home or self-care (01) ==
LOC: MFPLAB 11:58
PROVIDERS: PCP Family Medicine; Visit Provider Family Medicine
DX: D64.9 Anemia, unspecified (principal)
CPT/HCPCS: 36415; 82607; 83540; 83550; 84466

== ENCOUNTER → 2024-02-12 | Outpatient (CLI) | payer MEDICARE, MEDICAID, SELFPAY ==
--- NOTE | 2024-02-12 16:00 | RAD_ITS ---
STUDY: XR Shoulder Min 2 Views REASON FOR EXAM: Female, 68 years old. shoulder pain TECHNIQUE: XR Shoulder Min 2 Views LEFT COMPARISON: None. FINDINGS: Normal glenohumeral articulation. There is degenerative arthrosis of the acromioclavicular joint without inferior osseous spur formation. Normal acromion. Normal humeral head and visualized proximal humerus. There is periarticular soft tissue calcification consistent with a calcific tendinitis. Normal visualized pulmonary apex. RAD/Shoulder min 2 Views IMPRESSION: There is periarticular soft tissue calcification consistent with a calcific tendinitis. Electronically Signed: Shawn Miller MD at 18:27 EDT ,
--- NOTE | 2024-02-12 16:00 | RAD_ITS ---
STUDY: X-RAY - LUMBAR SPINE REASON FOR EXAM: Female, 68 years old. low back pain TECHNIQUE: XR Spine Lumbar 2 or 3 Views COMPARISON: None FINDINGS: Normal lumbar lordosis. There is no substantial scoliosis. There is a normal alignment of the vertebrae. There is multilevel endplate spondylosis of the lumbar vertebrae. There is multi-level degenerative disc disease with multi-level disc space narrowing. There are atherosclerotic vascular calcifications. The soft tissue structures are unremarkable. RAD/Lumbar Spine 2 or 3 Views IMPRESSION: Degenerative changes of the spine, as detailed above. Electronically Signed: Shawn Miller MD at 20:04 EDT ,
--- NOTE | 2024-02-12 16:00 | RAD_ITS ---
EXAM: XR BILATERAL HIPS WITH PELVIS WHEN PERFORMED, 2 VIEWS CLINICAL INDICATION: hip pain TECHNIQUE: Frontal view of the bilateral hips with pelvis when performed. COMPARISON: No relevant prior studies available. FINDINGS: BONES/JOINTS: Degenerative findings in the lumbar spine. No displaced fracture. No destructive or sclerotic lesions. Note that overlapping bowel shadows may however obscure fine detail. Sacroiliac joint is unremarkable. No widening of the pubic symphysis. SOFT TISSUES: Unremarkable. No soft tissue swelling or gas. VASCULATURE: Vascular calcifications. RAD/Hips B/L min 2 views w/ Pelvis IMPRESSION: No acute findings in the pelvis or bilateral hips. Electronically Signed: Shawn Miller MD at 18:24 EDT Reading Location ID and State: [facility] / [place] , Service support ,
--- NOTE | 2024-02-12 16:00 | RAD_ITS ---
INDICATION: shoulder pain EXAMINATION/TECHNIQUE: X-RAY - RIGHT XR Shoulder Min 2 Views 4 VIEWS COMPARISON: 09/18/2020 FINDINGS: SOFT TISSUES: No soft tissue swelling or gas. Progressive calcification adjacent to the humeral head. BONES/JOINTS: No acute fracture. Joint spaces anatomically aligned with progression of degenerative changes at the acromio clavicular joint. No sclerotic or destructive changes observed. RAD/Shoulder min 2 Views IMPRESSION: Progressive calcific tendinitis with degenerative changes at the acromioclavicular joint. Electronically Signed: Mitchel Mitchell MD at 19:48 EDT ,
--- NOTE | 2024-02-12 16:00 | RAD_ITS ---
INDICATION: knee pain EXAMINATION/TECHNIQUE: X-RAY - RIGHT XR Knee 3 Views 3 VIEWS COMPARISON: None. FINDINGS: SOFT TISSUES: No soft tissue swelling or gas. No radiopaque foreign body. Vascular calcifications. BONES/JOINTS: No acute fracture. Joint spaces anatomically aligned with mild degenerative changes. No sclerotic or destructive changes observed. RAD/Knee 3 Views IMPRESSION: Mild degenerative changes. Electronically Signed: Mitchel Mitchell MD at 20:24 EDT ,
--- NOTE | 2024-02-12 16:00 | RAD_ITS ---
INDICATION: knee pain EXAMINATION/TECHNIQUE: X-RAY - LEFT XR Knee 3 Views 3 VIEWS COMPARISON: None. FINDINGS: SOFT TISSUES: No soft tissue swelling or gas. No radiopaque foreign body. Vascular calcifications. BONES/JOINTS: No acute fracture. Joint spaces anatomically aligned with mild degenerative changes. No sclerotic or destructive changes observed. RAD/Knee 3 Views IMPRESSION: Mild degenerative changes. Electronically Signed: Mitchel Mitchell MD at 20:22 EDT ,
== END | disposition home or self-care (01) ==
PROVIDERS: PCP Family Medicine; Referring Provider Family Medicine; Visit Provider Family Medicine
DX: M25.552 Pain in left hip (principal); M25.551 Pain in right hip; M25.562 Pain in left knee; M25.561 Pain in right knee; M54.50 Low back pain, unspecified; M25.511 Pain in right shoulder
CPT/HCPCS: 72100; 73030; 73521; 73562

== ENCOUNTER → 2024-04-13 | Outpatient (CLI) | payer MEDICARE, MEDICAID, SELFPAY ==
[2024-04-13 15:47] LABS: Mucous, Urine 0 SEEN /hpf (<or=2+); Red Blood Cells-Urine 0 SEEN /hpf (0-5)
[2024-04-13 18:04] LABS: Absolute Lymphocyte Count 3.34 X10^3/uL (0.83-4.51); Absolute Neutrophil Count 4.6 X10^3/uL (2.0-7.7); Basophil# 0.03 X10^3/uL; Basophil% 0.4 % (0-1); Eosinophils% 1.2 % (0-5); Hematocrit 38.7 % (37-47); Hemoglobin 12.8 g/dL (12.0-15.0); Lymphocyte # 3.34 X10^3/ul (0.83-4.51); Lymphocyte % 39.2 % (19-41); Mean Corp Hgb Conc 33.1 g/dL (32-36); Mean Corpuscular Hgb 29.6 pg (27.0-32.0); Mean Corpuscular Volume 89.6 fL (81-99); Mean Platelet Vol. 10.8 fl (6.2-12.0); Monocyte# 0.38 X10^3/uL; Monocyte% 4.5 % (0-10); NRBC Flagged by Analyzer 0 % (0-5); Neutrophil # 4.63 X10^3/uL (2.7-7.7); Neutrophil % 54.3 % (47-70); Platelet Count 254 K/mm3 (150-450); RBC Distribution Width CV 13.4 % (11.6-14.6); RBC Distribution Width SD 43.9 fl (35.1-43.9); Red Blood Count 4.32 M/mm3 (4.2-5.4); White Blood Count 8.5 K/mm3 (4.4-11.0)
[2024-04-13 18:22] LABS: Vitamin B12 244 pg/mL (211-911); Vitamin D,25 Hydroxy 37.6 ng/mL
[2024-04-13 18:41] LABS: Color, Urine Yellow (Yellow); Glucose, Dipstick Normal (Normal); Ketone-Dipstick Negative (Negative); Leukocyte Esterase-Dipstick Negative /ul (Negative); Nitrite-Dipstick Negative (Negative); Occult Blood-Urine Negative /ul (Negative); Protein-Dipstick Negative (Negative); Specific Gravity, Urine 1.015 (1.002-1.030); Urine Bilirubin Dipstick Negative (Negative); Urine Clarity Clear (Clear); Urine Urobilinogen Normal (Normal)
[2024-04-13 19:07] LABS: Hemoglobin A1c 6.5 % (3.8-5.6)
[2024-04-13 19:09] LABS: Bacteria 1+ /hpf (None Seen); Squamous Epithelial Cells - UA 0-5 SEEN /hpf (5-10); White Blood Cells 0-5 SEEN /hpf (0-5)
[2024-04-13 19:12] LABS: AST(SGOT) 23 U/L (15-37); Alanine Aminotransfer ALT/SGPT 35 U/L (13-56); Albumin, Serum 4.3 g/dL (3.2-5.0); Alkaline Phosphatase 34 U/L (45-117); Anion Gap 11 (5-15); BUN 11 mg/dL (7-18); BUN/Creat Ratio 10.7 RATIO (10-20); Calcium,Total 9.5 mg/dL (8.5-10.1); Chloride 104 mmol/L (98-107); Cholesterol 124 mg/dL (200); Creatinine, Serum 1.03 mg/dL (0.55-1.02); EST Glomerular Filtration Rate 57 mL/min (>60); Est Glom Filt Rate - Afr Amer 69 mL/min (>60); Ferritin 9 ng/mL (8-252); Globulin 4.4 g/dL (2.2-4.2); Glucose 199 mg/dL (74-106); High Density Lipoprotein 49 mg/dL; Iron 63 ug/dL (50-170); Iron Binding Capacity,Total 414 ug/dL (250-450); Potassium 3.4 mmol/L (3.5-5.1); Protein, Total 8.7 g/dL (6.4-8.2); Sodium Level 137 mmol/L (136-145); T4 Free Direct 0.95 ng/dL (0.76-1.46); Thyroid Stim Hormone (TSH) 0.93 uIU/mL (0.358-3.74); Triglycerides 184 mg/dL; Very Low Density Lipoprotein 37 mg/dL (5-40)
[2024-04-16 18:45] LABS: Microalbumin,Random Urine 23.9 mg/L (NO RANGE EST.); Microalbumin:Creatinine Ratio 36.5 mg/g CRE (<30 mg/g CRE)
[2024-04-19 14:08] LABS: PROEL- A/G Ratio 1.2 (0.7-1.7); PROEL- Albumin 4.5 g/dL (2.9-4.4); PROEL- Alpha-1 Globulin 0.2 g/dL (0.0-0.4); PROEL- Alpha-2 Globulin 0.8 g/dL (0.4-1.0); PROEL- Beta Globulin 1.1 g/dL (0.7-1.3); PROEL- Gamma Globulin 1.6 g/dL (0.4-1.8); PROEL- Globulin, Total 3.7 g/dL (2.2-3.9); PROEL- TOTAL PROTEIN 8.2 g/dL (6.0-8.5); PROEL-M-Spike Comment: g/dL (Not Observed)
== END | disposition home or self-care (01) ==
LOC: MFPLAB 15:37
PROVIDERS: PCP Family Medicine; Visit Provider Family Medicine
DX: E88.09 Other disorders of plasma-protein metabolism, not elsewhere classified (principal); E11.8 Type 2 diabetes mellitus with unspecified complications; E55.9 Vitamin D deficiency, unspecified; R53.83 Other fatigue; D50.9 Iron deficiency anemia, unspecified
CPT/HCPCS: 36415; 80053; 80061; 81001; 82043; 82306; 82570; 82607; 82728; 82746; 83036; 83540; 83550; 84165; 84439; 84443; 85025

== ENCOUNTER → 2024-04-20 | Outpatient (CLI) | payer MEDICARE, MEDICAID, SELFPAY ==
[2024-04-21 14:10] LABS: PROEL- Albumin 3.7 g/dL (2.9-4.4); PROEL- Alpha-1 Globulin 0.2 g/dL (0.0-0.4); PROEL- Alpha-2 Globulin 0.8 g/dL (0.4-1.0); PROEL- Gamma Globulin 1.6 g/dL (0.4-1.8); PROEL- Globulin, Total 3.6 g/dL (2.2-3.9); PROEL- TOTAL PROTEIN 7.3 g/dL (6.0-8.5); PROEL-M-Spike Comment: g/dL (Not Observed)
== END | disposition home or self-care (01) ==
PROVIDERS: PCP Family Medicine; Referring Provider Family Medicine; Visit Provider Family Medicine
DX: E88.09 Other disorders of plasma-protein metabolism, not elsewhere classified (principal)
CPT/HCPCS: 84165

== ENCOUNTER → 2024-09-30 | Outpatient (CLI) | payer MEDICARE, MEDICAID, SELFPAY | END | disposition home or self-care (01) | PROVIDERS: PCP Family Medicine; Referring Provider Otolaryngology; Visit Provider Otolaryngology | DX: J02.9 Acute pharyngitis, unspecified (principal) | CPT/HCPCS: 87070 ==

== ENCOUNTER → 2024-10-18 | Outpatient (CLI) | payer MEDICARE, MEDICAID, SELFPAY ==
--- NOTE | 2024-10-18 08:34 | RAD_ITS ---
STUDY: X-RAY - ESOPHAGUS (BARIUM SWALLOW) WITH FLUOROSCOPY REASON FOR EXAM: Female, 69 years old. Dysphagia, unspecified TECHNIQUE: 48 fluoroscopic view(s) of the esophagus were obtained following swallowing of barium. FLUOROSCOPY TIME (if supplied): (32nd) minutes/seconds. 4.1 mGy. COMPARISON: None. FINDINGS: There is no demonstrated esophageal foreign body. There is no demonstrated stricture or mucosal abnormality. Normal gastroesophageal junction, without a demonstrated hiatal hernia. The patient ingested a 12 mm tablet of barium. There was transitory delay in the passage of the 12 mm tablet at the level of the gastroesophageal junction. There is atherosclerotic calcification of the aortic arch with tortuosity of the descending aorta. Normal visualized pulmonary parenchyma. There are diffuse degenerative changes of the visualized thoracic spine. RAD/Esophagus Dual Contrast IMPRESSION: Normal plain film x-ray examination (barium swallow) of the esophagus. Electronically Signed: Pavel Carrero MD at 10:57 EST ,
== END | disposition home or self-care (01) ==
LOC: RAD 08:33
PROVIDERS: PCP Family Medicine; Referring Provider Otolaryngology; Visit Provider Otolaryngology
DX: R13.10 Dysphagia, unspecified (principal)
CPT/HCPCS: 74221

== ENCOUNTER → 2024-12-28 | Outpatient (CLI) | payer MEDICARE, MEDICAID, SELFPAY ==
[2024-12-28 13:11] LABS: Erythrocyte Sedimentation Rate 13 mm/hr (0-30)
[2024-12-28 13:35] LABS: Vitamin B12 333 pg/mL (211-911)
[2024-12-28 13:37] LABS: AST(SGOT) 27 U/L (15-37); Alanine Aminotransfer ALT/SGPT 26 U/L (13-56); Albumin, Serum 4.1 g/dL (3.2-5.0); Alkaline Phosphatase 26 U/L (45-117); Anion Gap 8 (5-15); BUN 6 mg/dL (7-18); BUN/Creat Ratio 7.2 RATIO (10-20); CRP < 2.90 mg/L (0.0-3.0); Calcium,Total 9.4 mg/dL (8.5-10.1); Chloride 104 mmol/L (98-107); Creatinine, Serum 0.84 mg/dL (0.55-1.02); EST Glomerular Filtration Rate 72 mL/min (>60); Est Glom Filt Rate - Afr Amer 88 mL/min (>60); Glucose 96 mg/dL (74-106); LDH 169 U/L (84-246); Potassium 4.1 mmol/L (3.5-5.1); Protein, Total 8.1 g/dL (6.4-8.2); Sodium Level 138 mmol/L (136-145)
[2025-01-03 09:07] LABS: Alternaria alternata <0.10 kU/L (Class 0); Anti-Centromere B Ab <0.2 AI (0.0-0.9); Anti-Chromatin <0.2 AI (0.0-0.9); Anti-Jo <0.2 AI (0.0-0.9); Anti-Scleroderma-70 AB <0.2 AI (0.0-0.9); Anti-dsDNA Ab 1 IU/mL (0-9); Beef <0.10 kU/L (Class 0); Bermuda Grass <0.10 kU/L (Class 0); Bluegrass, Kentucky <0.10 kU/L (Class 0); Cat Hair/Dander, Standard <0.10 kU/L (Class 0); Chocolate <0.10 kU/L (Class 0); Codfish <0.10 kU/L (Class 0); Corn <0.10 kU/L (Class 0); D farinae Mite <0.10 kU/L (Class 0); D pteronyssinus <0.10 kU/L (Class 0); Dog Epithelia <0.10 kU/L (Class 0); Egg, Whole <0.10 kU/L (Class 0); Elm, American White <0.10 kU/L (Class 0); Milk (Cow) <0.10 kU/L (Class 0); Mouse Urine <0.10 kU/L (Class 0); Mussels <0.10 kU/L (Class 0); Oak, White <0.10 kU/L (Class 0); Peanut <0.10 kU/L (Class 0); Plantain, English <0.10 kU/L (Class 0); Pork <0.10 kU/L (Class 0); RNP Ab <0.2 AI (0.0-0.9); Ragweed, Short/Common <0.10 kU/L (Class 0); SJOGREN'S Anti-SS-A test < 0.2 AI (0.0-0.9); SJOGREN'S Anti-SS-B test < 0.2 AI (0.0-0.9); Salmon <0.10 kU/L (Class 0); Shrimp <0.10 kU/L (Class 0); Smith Ab <0.2 AI (0.0-0.9); Soybean <0.10 kU/L (Class 0); Tuna <0.10 kU/L (Class 0); Wheat <0.10 kU/L (Class 0)
[2025-01-03 17:08] LABS: Albumin 3.6 g/dL (2.9-4.4); Alpha-1-Globulins 0.3 g/dL (0.0-0.4); Alpha-2-Globulins 0.9 g/dL (0.4-1.0); Angiotensin Convert Enzyme 56 U/L (14-82); Anti-Parietal Cell AB, QN 1.7 Units (0.0-20.0); Cytoplasmic Ab (C-ANCA) <1:20 titer (Neg:<1:20); Endomysial Antibody IgA Negative (Negative); Gamma Globulin 1.6 g/dL (0.4-1.8); Gastrin, Serum 92 pg/mL (0-115); IMMUNOFIXATION RESULT,S Comment: (.); Immunoglobulin A 258 mg/dL (87-352); Immunoglobulin E 48 IU/mL (6-495); Immunoglobulin G 1495 mg/dL (586-1602); Immunoglobulin M 131 mg/dL (26-217); PROEL- TOTAL PROTEIN 7.7 g/dL (6.0-8.5); Perinuclear Ab (P-ANCA) <1:20 titer (Neg:<1:20); t-Transglutaminase IgA <2 U/mL (0-3)
== END | disposition home or self-care (01) ==
LOC: LAB 12:34
PROVIDERS: Referring Provider Internal Medicine Gastroenterology; Visit Provider Internal Medicine Gastroenterology
DX: R11.2 Nausea with vomiting, unspecified (principal)
CPT/HCPCS: 36415; 80053; 82164; 82607; 82784; 82785; 82941; 83516; 83615; 84165; 85652; 86003; 86005; 86037; 86140; 86225; 86235; 86255; 86334; 86340

== ENCOUNTER → 2025-01-05 | Outpatient (CLI) | payer MEDICARE, MEDICAID, SELFPAY ==
[2025-01-10 02:07] LABS: Pancreatic Elastase, Fecal > 800 (>200)
== END | disposition home or self-care (01) ==
LOC: LABSPEC 13:53
PROVIDERS: Referring Provider Internal Medicine Gastroenterology; Visit Provider Internal Medicine Gastroenterology
DX: R19.7 Diarrhea, unspecified (principal); K58.9 Irritable bowel syndrome, unspecified
CPT/HCPCS: 82653; 82705; 83630; 83993; 87177; 87209; 87329

== ENCOUNTER 2025-03-09 09:24 | Day surgery (SDC) | payer MEDICARE, MEDICAID, SELFPAY ==
[2025-03-09] VITALS (8 sets, daily range): BP systolic 83–120; BP diastolic 45–79; PULSE 68–83; RESP 16–18; TEMP 36.1–36.5; O2SAT 96–98; BMI 24.6
--- NOTE | 2025-03-09 09:54 | PRE.ANES_ITS ---
ASA Classification* ASA Classification ASA Classification: 2 Assessment & Plan Anesthesia* Anesthesia Assessment Anesthesia Assessment: Discussed sedation and/or anesthesia options, risks, benefits, and alternatives with patient/parents/legal guardian/POA. Questions invited. The patient/parents/legal guardian/POA seems to understand and agrees to proceed with anesthesia plan. Reviewed the physical assessment, medical history, allergy history and patient home medications list prior to surgery/procedure/anesthetic and documented any changes. Performed airway and anesthesia risk assessments. Anesthesia Type Anesthesia Type: MAC Anesthesia Focused Assessment* Airway Assessment Mouth opens: >3 cm Mallampati Score: II Focused Labs Anesthesia Preop lab: CBC WBC 8.5 K/mm3 (4.4-11.0) 04/13/24 15:38 04/13/24 RBC 4.32 M/mm3 (4.2-5.4) 04/13/24 15:38 04/13/24 Hgb 12.8 g/dL (12.0-15.0) 04/13/24 15:38 04/13/24 Hct 38.7 % (37-47) 04/13/24 15:38 04/13/24 Plt Count 254 K/mm3 (150-450) 04/13/24 15:38 04/13/24 CHEMISTRY Potassium 4.1 mmol/L (3.5-5.1) 12/28/24 12:37 12/28/24 Sodium 138 mmol/L (136-145) 12/28/24 12:37 12/28/24 Magnesium 1.8 mg/dL (1.6-2.6) 12/31/23 10:32 12/31/23 BUN 6 mg/dL (7-18) L 12/28/24 12:37 12/28/24 Creatinine 0.84 mg/dL (0.55-1.02) 12/28/24 12:37 12/28/24 Glucose 96 mg/dL (74-106) 12/28/24 12:37 12/28/24 POC Glucose 195 mg/dL (70-110) H 04/02/18 13:05 04/02/18 TSH 0.93 uIU/mL (0.358-3.74) 04/13/24 15:38 COAG PT 13.6 SECONDS (11.7-14.9) 08/12/19 09:34 Pre-Assessment Diagnosis/Proposed Procedure Planned Operative Procedure(s): EGD, CSCOPE Anesthesia History 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 When Was Last Pacemaker Check QUESTION #4 FULL TEXT: You/Your Family Experience fever (hyperthermia) with Anesthesia Last Oral Intake Last Oral intake: Last Oral Intake NPO since Meds taken in AM with sips of water? Meds patient instructed to take am of surgery PONV PONV - wood panel inspector: PONV - wood panel inspector Female Yes 03/07/25 11:06 HX of Motion Sickness No 03/07/25 11:06 HX of N/V After Surgery No 03/07/25 11:06 Non-Smoker No 03/07/25 11:06 Duration of Surgery greater No 03/07/25 11:06 than 60 minutes Number of Risk Factors 1 03/07/25 11:06 PONV Score Low Risk 03/07/25 11:06 Height & Weight Height & Weight: Anesthesia: Height & Weight Height 5 ft 2 in 02/02/25 05:14 Respiratory Assessment Respiratory Assessment - wood panel inspector: Respiratory Tract Infection Hx - wood panel inspector Hx Respiratory Tract Infection No 03/07/25 11:06 STOP Sleep Apnea STOP Sleep Apnea - wood panel inspector: STOP Sleep Apnea - wood panel inspector Hx Hypertension No 03/07/25 11:06 Hx Sleep Apnea No 03/07/25 11:06 CPAP BIPAP Do you snore loudly (louder No 03/07/25 11:06 than talking or can be heard Do you often feel tired/ No 03/07/25 11:06 fatigued/ sleepy during daytime? Has anyone observed you stop No 03/07/25 11:06 breathing during sleep? STOP Results Negative 03/07/25 11:06 QUESTION #5 FULL TEXT : Do you snore loudly (louder than talking or can be heard through closed doors)? 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 Specify any problems Hx of Preganancy in last 3 N/A 03/07/25 11:06 Months Nurse Filling Out Transfusion NBUCHER 03/07/25 11:06 & Questions: Date: 03/07/25 03/07/25 11:06 Time: 11:07 03/07/25 11:06 Patient unable to answer at this time (ie. confused, unrespo /Reproduction History /Reproductive History - wood panel inspector: /Reproductive Hx- wood panel inspector Hx Now No 03/07/25 11:06 Gestational Age (in weeks): EDC: Hx Hx Para Hx Section SAB No 03/07/25 11:06 Active Medications Active Medications: Current Medications Generic Name Dose Route Start Last Admin Trade Name Freq PRN Reason Stop Dose Admin Lactated Ringer's 1,000 mls @ 30 mls/hr 03/09/25 09:45 IV .[id number] DIANA PFSH Medical History Wears glasses Cancer Fatty liver High cholesterol Restless legs Syncope History of hiatal hernia History of diverticulitis Smoker History of stress test Dysphagia Depression Anxiety Sore throat Home Medications ?Medication ?Instructions ?Recorded ?Last Taken ?Type coenzyme Q10 100 mg capsule (Co 100 mg PO DAILY supple ment 06/22/16 08/12/19 History Q-10) montelukast 10 mg tablet 10 mg PO QHS allergies 10/0608/11/19 History trazodone 100 mg tablet 100 mg PO QHS sleep 10/06/17 08/11/19 History ondansetron 4 mg disintegrating 4 mg PO Q8H PRN PRN Na usea #10 tabs 04/11/18 Unknown Rx tablet cholecalciferol (vitamin D3) 25 1,000 unit PO DAILY 08/12/19 History mcg (1,000 unit) capsule furosemide 20 mg tablet 20 mg PO DAILY 08/12/1901/26 History pantoprazole 40 mg tablet,delayed 40 mg PO DAILY 08/1208/12/19 History release albuterol sulfate 90 mcg/actuation 1 inh inhalation ON CE 11/08/24 Unknown History aerosol inhaler famotidine 20 mg tablet 20 mg PO QDAY 11/08/24 Unkno wn History fluticasone 250 mcg-salmeterol 50 1 inh inhalation BID 11/08/24 Unknown History mcg/dose blistr powdr for inhalation meloxicam 15 mg tablet 15 mg PO QDAY 11/08/24 Unkno wn History rosuvastatin 20 mg tablet 20 mg PO QDAY 11/08/24 Unkno wn History aspirin 81 mg tablet,delayed 81 mg PO QDAY 02/02/25 Un known History release (Adult Low Dose Aspirin) clobetasol 0.05 % topical cream 1 g topical QDAY 02/02 Unknown History dulaglutide 0.75 mg/0.5 mL 1.5 mg subcut MO 02/02/25 0 02/28/25 History subcutaneous pen injector (Trulicity) fluorouracil 5 % topical cream 1 applic topical BID Unknown History metformin 500 mg tablet 500 mg PO BID 02/02/25 Unkno wn History Allergy/AdvReac Type Severity Reaction Status Date / Time ciprofloxacin (From Cipro) Allergy Rash Verified 03/07/25 11:02 ciprofloxacin HCl (From Allergy Rash Verified 03/07/25 11:02 Cipro) clindamycin Allergy throat Verified 03/07/25 11:02 swelling-see comment section fluoxetine HCl (From Prozac) Allergy Rash Verified 03/07/25 11:02 metronidazole Allergy Anaphylaxis Verified 03/07/25 11:02 Penicillins Allergy Rash Verified 03/07/25 11:02 Sulfa (Sulfonamide Allergy Rash Verified 03/07/25 11:02 Antibiotics) adhesive AdvReac redness Verified 03/07/25 11:02 with bandaids amoxicillin trihydrate (From AdvReac thrush/yeast Verified 03/07/25 11:02 Augmentin) infection potassium clavulanate (From AdvReac thrush/yeast Verified 03/07/25 11:02 Augmentin) infection Family History Sister Colon polyps Hypertension Brother Colon polyps Parkinson disease Mother Colon polyps Colon cancer COPD (chronic obstructive pulmonary disease) Father Colon polyps Heart disease Surgical History History of excision of mass (10/13/17) History of esophagogastroduodenoscopy (EGD) History of colonoscopy History of tonsillectomy History of cholecystectomy History of fusion of cervical spine (~2003) H/O: hysterectomy Social History household members: none current occupational 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
[2025-03-09] MEDS: Lactated Ringers 1,000 ML 30 ML IV (10:15)
--- NOTE | 2025-03-09 10:30 | EGD_PTH ---
PATIENT: BRIDGER PRASAD LOC: EN U#:[id number] AGE/SX: 69/F ROOM: RE03/09/[address]: Dr. Pernell Philippe DO : 1955 BED: DIS: 03/09/2025 SPEC #: [id number] RECD: 03/09/25 13:31 STATUS: NATALYA RERiley #: [id number] DEANA: 03/09/25 10:[address]: Pernell Philippe DEPT: SURGICAL PATHOLOGY RECD BY: Ernesto Guadarrama ENTERED: 03/09/25 14:44 SP TYPE: EGD BIOPSY OTHR DR: Lindsey Primary Care Phys Tissues: A - Duodenum, NOS B - Esophagus, NOS C - Ileum, NOS D - COLON BIOPSY Procedures: Surgery Specimen Level IV HEADER OPERATION: Colonoscopy, EGD, biopsy and dilatation PRE-OP DIAGNOSIS: Dysphagia, nausea/vomiting TISSUE SUBMITTED: Duodenum biopsy, Distal esophagus biopsy, Terminal ileum biopsy, Random colonic biopsy MICROSCOPIC DIAGNOSIS A. Small bowel, duodenum, biopsy: * Benign small bowel mucosa with no villous atrophy and prominent Shakeel's glands B. Esophagus, distal, biopsy: * Benign squamous epithelium * Oxyntocardiac type mucosa with mild chronic inflammation, negative for goblet cells C. Small bowel, terminal ileum, biopsy: * Small bowel mucosa with no pathologic change D. Colon, random, biopsy: * Colonic mucosa with no pathologic change MICROSCOPIC DESCRIPTION Slides are reviewed. GROSS DESCRIPTION A. Received in formalin in a container labeled with the patient's name, date of , and duodenum biopsy are 2 merrill-pink fragments of mucosal tissue each measuring 0.2 x 0.2 x 0.2 cm. Submitted in toto in A1. B. Received in formalin in a container labeled with the patient's name, date of , and distal esophagus biopsy is a 0.3 x 0.3 x 0.3 cm fragment of merrill-pink mucosal tissue. Submitted in toto in B1. C. Received in formalin in a container labeled with the patient's name, date of , and terminal ileum biopsy are 2 merrill-pink fragments of mucosal tissue each measuring 0.5 x 0.3 x 0.2 cm. Submitted in toto in C1. D. Received in formalin in a container labeled with the patient's name, date of , and random colonic biopsy are multiple merrill-pink fragments of mucosal tissue measuring 1.5 x 0.7 x 0.3 cm in aggregate. Submitted in toto in D1. [facility] 03-09-2025 CPT:48417y2
--- NOTE | 2025-03-09 11:11 | HP.PCM_ITS ---
HPI - General General Date of Admission: 03/09/25 Date of Service: 03/09/25 Chief Complaint: dysphagia HPI Narrative BRIDGER PRASAD, is a 69 F who presents Barium Swallow X-Ray 12.9.24 Normal plain film x-ray examination (barium swallow) of the esophagus. *I established 2.18.25 pt reports that for the past few years she will haves episodes where she will have emesis that is yellow and slimy like snot. Pt reports that she always feels like there is something stuck in her chest. Reports alternating bowel movements and that she has to massage her sides to get her bowels to move. Pt reports that she has had several colonoscopies and EGDs and believes her last scopes were 2-3 years ago; pt reports her mother had colon cancer. Pt reports that she does not have a PCP and would like a referral to one. [facility] Medical History (Updated 03/09/25 @ 11:[address] Gimenez Friend, DO) Wears glasses Cancer Fatty liver High cholesterol Restless legs Syncope History of hiatal hernia History of diverticulitis Smoker History of stress test Dysphagia Depression Anxiety Sore throat Home Medications ?Medication ?Instructions ?Recorded ?Last Taken ?Type coenzyme Q10 100 mg capsule (Co 100 mg PO DAILY supple ment 06/22/16 08/12/19 History Q-10) montelukast 10 mg tablet 10 mg PO QHS allergies 10/0603/08/25 History trazodone 100 mg tablet 100 mg PO QHS sleep 10/06/17 03/08/25 History ondansetron 4 mg disintegrating 4 mg PO Q8H PRN PRN Na usea #10 tabs 04/11/18 03/09/25 Rx tablet cholecalciferol (vitamin D3) 25 1,000 unit PO DAILY 03/08/25 History mcg (1,000 unit) capsule furosemide 20 mg tablet 20 mg PO DAILY 08/12/19/08/04 History pantoprazole 40 mg tablet,delayed 40 mg PO DAILY 08/1203/08/25 History release albuterol sulfate 90 mcg/actuation 1 inh inhalation ON CE 11/08/24 Unknown Histo ry aerosol inhaler famotidine 20 mg tablet 20 mg PO QDAY 11/08/2403/08 History fluticasone 250 mcg-salmeterol 50 1 inh inhalation BID 11/08/24 03/05/25 History mcg/dose blistr powdr for inhalation meloxicam 15 mg tablet 15 mg PO QDAY 11/08/2403/08 History rosuvastatin 20 mg tablet 20 mg PO QDAY 11/08/2403/08 History aspirin 81 mg tablet,delayed 81 mg PO QDAY 02/02/25 History release (Adult Low Dose Aspirin) clobetasol 0.05 % topical cream 1 g topical QDAY 02/02 Unknown History dulaglutide 0.75 mg/0.5 mL 1.5 mg subcut MO 02/02/25 0 02/28/25 History subcutaneous pen injector (Trulicity) fluorouracil 5 % topical cream 1 applic topical BID Unknown History metformin 500 mg tablet 500 mg PO BID 02/02/2503/07 History Allergy/AdvReac Type Severity Reaction Status Date / Time ciprofloxacin (From Cipro) Allergy Rash Verified 03/09/25 10:02 ciprofloxacin HCl (From Allergy Rash Verified 03/09/25 10:02 Cipro) clindamycin Allergy throat Verified 03/09/25 10:02 swelling-see comment section fluoxetine HCl (From Prozac) Allergy Rash Verified 03/09/25 10:02 metronidazole Allergy Anaphylaxis Verified 03/09/25 10:02 Penicillins Allergy Rash Verified 03/09/25 10:02 Sulfa (Sulfonamide Allergy Rash Verified 03/09/25 10:02 Antibiotics) adhesive AdvReac redness Verified 03/09/25 10:02 with bandaids amoxicillin trihydrate (From AdvReac thrush/yeast Verified 03/09/25 10:02 Augmentin) infection potassium clavulanate (From AdvReac thrush/yeast Verified 03/09/25 10:02 Augmentin) infection Family History Sister Colon polyps Hypertension Brother Colon polyps Parkinson disease Mother Colon polyps Colon cancer COPD (chronic obstructive pulmonary disease) Father Colon polyps Heart disease Surgical History History of excision of mass (10/13/17) History of esophagogastroduodenoscopy (EGD) History of colonoscopy History of tonsillectomy History of cholecystectomy History of fusion of cervical spine (~2003) H/O: hysterectomy Social History household members: none current occupational 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 [employer] pets and animals: No Smoking Status: Current every day smoker tobacco type: cigarettes alcohol intake: never substance use type: does not use ROS Constitutional Constitutional: Denies fatigue, fever(s), poor appetite, weight gain or weight loss Gastrointestinal Gastrointestinal: Denies belching, bloating, change in bowel habits, change in stool character, chewing difficulty, coffee ground emesis, constipation, cramping, diarrhea, dyspepsia, dysphagia, early satiety, excessive flatus, fecal incontinence, heartburn, hematemesis, hematochezia, hemorrhoids, loose stools, melena, nausea, odynophagia, rectal bleeding, tenesmus, vomiting or weight changes Vital Signs Vital Signs Vital Signs: 03/09/25 10:04 03/09/25 10:04 Temperature 97.0 F L Temperature Source Temporal Pulse Rate 69 Respiratory Rate 18 Respiratory Pattern Normal Blood Pressure 120/79 Blood Pressure Mean 92 Blood Pressure Source Monitor Blood Pressure Position Semi-Fowlers Blood Pressure Location Left Arm Pulse Ox 96 Oxygen Delivery Method Room Air Weight Weight: 134 lb 14.766 oz Body Mass Index (BMI) 24.6 Physical Exam Const alert, oriented x3, no apparent distress and healthy appearing General Appearance: cooperative GI normal to inspection, nondistended, normoactive bowel sounds, soft to palpation, non-tender and non-distended Percussion: normal to percussion Rectal Exam: deferred Assessment & Plan Assessment/Plan (1) Dysphagia: (2) Nausea & vomiting: PLAN: Assessment and Plan Assessment and Plan (1) Diarrhea: Status: Acute Plan: Differential diagnosis for her diarrhea and abdominal pain is gastroparesis with accelerated gastrocolic reflex, inflammatory bowel disease, IBS with diarrhea, medication induced diarrhea, small bacterial overgrowth, exocrine pancreatic insufficiency. She will undergo lab work and biochemical analysis of stool along with gastric emptying study. She will follow-up after we get all the results in. She was okay with this plan. Orders:
--- NOTE | 2025-03-09 12:04 | OP.EGD_ITS ---
Patient Name: Юлия Hayden Procedure Date: 03/09/2025 11:20 AM Date of : 1955 Age: 69 Procedure: Upper GI endoscopy Indications: Epigastric abdominal pain, Dysphagia Providers: Pernell Philippe DO Medicines: Monitored Anesthesia Care Patient Profile: This is a 69 year old female. Refer to note in patient chart for documentation of history and physical. Patient has symptoms of acute epigastric abdominal pain and dysphagia with both liquids and solids. Complications: No immediate complications. Procedure: Pre-Anesthesia Assessment: - Prior to the procedure, a History and Physical was performed, and patient medications and allergies were reviewed. The patient is competent. The risks and benefits of the procedure and the sedation options and risks were discussed with the patient. All questions were answered and informed consent was obtained. Patient identification and proposed procedure were verified by the physician in the pre-procedure area. Mental Status Examination: alert and oriented. Respiratory Examination: clear to auscultation. CV Examination: normal. Prophylactic Antibiotics: The patient does not require prophylactic antibiotics. Prior Anticoagulants: The patient has taken no anticoagulant or antiplatelet agents. ASA Grade Assessment: III - A patient with severe systemic disease. After reviewing the risks and benefits, the patient was deemed in satisfactory condition to undergo the procedure. The anesthesia plan was to use monitored anesthesia care (MAC). Immediately prior to administration of medications, the patient was re-assessed for adequacy to receive sedatives. The heart rate, respiratory rate, oxygen saturations, blood pressure, adequacy of pulmonary ventilation, and response to care were monitored throughout the procedure. The physical status of the patient was re-assessed after the procedure. After obtaining informed consent, the endoscope was passed under direct vision. Throughout the procedure, the patient's blood pressure, pulse, and oxygen saturations were monitored continuously. The pediatric colonoscope was introduced through the mouth, and advanced to the third part of the duodenum. Small bowel enteroscopy was deemed necessary. The upper GI endoscopy was accomplished without difficulty. The patient tolerated the procedure well. Scope In: 11:30:48 AM Scope Out: 11:35:52 AM Total Procedure Duration Time 0 hours 5 minutes 4 seconds Findings: Abnormal motility was noted in the esophagus. The cricopharyngeus was abnormal. There is a decrease in motility of the esophageal body. The distal esophagus/lower esophageal sphincter is spastic, but gives up passage to the endoscope. A guidewire was placed and the scope was withdrawn. Dilation was performed with a Savary dilator with no resistance at 54 Fr. The dilation site was examined and showed moderate mucosal disruption. Estimated blood loss was minimal. The Z-line was irregular and was found 41 cm from the incisors. Biopsies were taken with a cold forceps for histology. Verification of patient identification for the specimen was done. Estimated blood loss was minimal. A small hiatal hernia was present. Patchy mildly erythematous mucosa without bleeding was found in the gastric body. Biopsies were taken with a cold forceps for histology. Verification of patient identification for the specimen was done. Estimated blood loss was minimal. Biopsies were taken with a cold forceps for Helicobacter pylori testing. Verification of patient identification for the specimen was done. Estimated blood loss was minimal. No gross lesions were noted in the entire examined duodenum. Biopsies were taken with a cold forceps for histology. Verification of patient identification for the specimen was done. Estimated blood loss was minimal. Impression: - Abnormal esophageal motility, suspicious for presbyesophagus. Dilated. - Z-line irregular, 41 cm from the incisors. Biopsied. - Small hiatal hernia. - Erythematous mucosa in the gastric body. Biopsied. - No gross lesions in the entire examined duodenum. Biopsied. Recommendation: - Discharge patient to home. - Resume previous diet today. - Continue present medications. - Await pathology results. - Repeat upper endoscopy for surveillance based on pathology results. Pernell Philippe DO 03/09/2025 12:03:45 PM This report has been signed electronically. Number of Addenda: 0 Note Initiated On: 03/09/2025 11:20 AM
--- NOTE | 2025-03-09 12:04 | OP.CCLET_ITS ---
03/09/2025 No Primary Care Physician Re : Upper GI endoscopy procedure for Юлия Hayden Dear Care Physician This procedure was performed on Sunday, March 09, 2025. My impressions and recommendations are as follows: Impressions : - Abnormal esophageal motility, suspicious for presbyesophagus. Dilated. - Z-line irregular, 41 cm from the incisors. Biopsied. - Small hiatal hernia. - Erythematous mucosa in the gastric body. Biopsied. - No gross lesions in the entire examined duodenum. Biopsied. Recommendations : - Discharge patient to home. - Resume previous diet today. - Continue present medications. - Await pathology results. - Repeat upper endoscopy for surveillance based on pathology results. My findings are described in the full procedure note, which is enclosed. If I can be of further assistance, please feel free to contact me at . Sincerely, Pernell Philippe, 03/09/2025 12:03:45 PM This report has been signed electronically.
--- NOTE | 2025-03-09 12:05 | PCM.POST.ANE ---
Anesthesia: Postop Eval I Current Vital Signs Temperature: 97.3 F Pulse Rate: 80 Blood Pressure: 88/51 Respiratory Rate: 16 Pulse Ox: 98 Oxygen Delivery Method: Room Air Assessment Airway patent: Yes Spontaneous unlabored respirations: Yes Mental status: Asleep nausea: No Vomiting: No Anesthesia Complication: No Fluid Hydration Crystalloid volume administer (ml): 600 Total IV fluid infused: 600 Progress Note Anesthesia document: Postop Eval 1 completed: Yes
--- NOTE | 2025-03-09 12:07 | OP.CCLET_ITS ---
03/09/2025 No Primary Care Physician Re : Colonoscopy procedure for Юлия Hayden Dear Care Physician This procedure was performed on Sunday, March 09, 2025. My impressions and recommendations are as follows: Impressions : - Diverticulosis in the recto-sigmoid colon and in the sigmoid colon. - Congested mucosa in the entire examined colon. Biopsied. Recommendations : - Discharge patient to home. - Resume previous diet. - Continue present medications. - Await pathology results. - Repeat colonoscopy in 3 years for surveillance based on pathology results. My findings are described in the full procedure note, which is enclosed. If I can be of further assistance, please feel free to contact me at . Sincerely, Pernell Philippe, 03/09/2025 12:06:22 PM This report has been signed electronically.
--- NOTE | 2025-03-09 12:07 | OP.COLON_ITS ---
Patient Name: Юлия Hayden Procedure Date: 03/09/2025 11:37 AM Date of : 1955 Age: 69 Procedure: Colonoscopy Indications: Generalized abdominal pain, Chronic diarrhea Providers: Pernell Philippe DO Medicines: Monitored Anesthesia Care Patient Profile: This is a 69 year old female. Refer to note in patient chart for documentation of history and physical. Patient has symptoms of acute epigastric abdominal pain and dysphagia with both liquids and solids. Last Colonoscopy: several years ago. Complications: No immediate complications. Procedure: Pre-Anesthesia Assessment: - Prior to the procedure, a History and Physical was performed, and patient medications and allergies were reviewed. The patient is competent. The risks and benefits of the procedure and the sedation options and risks were discussed with the patient. All questions were answered and informed consent was obtained. Patient identification and proposed procedure were verified by the physician in the pre-procedure area. Mental Status Examination: alert and oriented. Respiratory Examination: clear to auscultation. CV Examination: normal. Prophylactic Antibiotics: The patient does not require prophylactic antibiotics. Prior Anticoagulants: The patient has taken no anticoagulant or antiplatelet agents. ASA Grade Assessment: III - A patient with severe systemic disease. After reviewing the risks and benefits, the patient was deemed in satisfactory condition to undergo the procedure. The anesthesia plan was to use monitored anesthesia care (MAC). Immediately prior to administration of medications, the patient was re-assessed for adequacy to receive sedatives. The heart rate, respiratory rate, oxygen saturations, blood pressure, adequacy of pulmonary ventilation, and response to care were monitored throughout the procedure. The physical status of the patient was re-assessed after the procedure. After I obtained informed consent, the scope was passed under direct vision. Throughout the procedure, the patient's blood pressure, pulse, and oxygen saturations were monitored continuously. The pediatric colonoscope was introduced through the anus and advanced to the terminal ileum. The colonoscopy was performed without difficulty. The patient tolerated the procedure well. The quality of the bowel preparation was adequate. The terminal ileum, ileocecal valve, appendiceal orifice, and rectum were photographed. Scope In: 11:38:25 AM Scope Withdrawal Time 0 hours 8 minutes 30 seconds Scope Out: 11:53:28 AM Total Procedure Duration Time 0 hours 15 minutes 3 seconds Findings: The perianal and digital rectal examinations were normal. Multiple small-mouthed diverticula were found in the recto-sigmoid colon and sigmoid colon. An area of mildly congested mucosa was found in the entire colon. Biopsies were taken with a cold forceps for histology. Verification of patient identification for the specimen was done. Estimated blood loss was minimal. Impression: - Diverticulosis in the recto-sigmoid colon and in the sigmoid colon. - Congested mucosa in the entire examined colon. Biopsied. Recommendation: - Discharge patient to home. - Resume previous diet. - Continue present medications. - Await pathology results. - Repeat colonoscopy in 3 years for surveillance based on pathology results. Procedure Code(s): --- Professional --- 68526, Colonoscopy, flexible; with biopsy, single or multiple CPT copyright 2021 [employer]. All rights reserved. The codes documented in this report are preliminary and upon certified procedural coder review may be revised to meet current compliance requirements. Pernell Philippe DO 03/09/2025 12:06:22 PM This report has been signed electronically. Number of Addenda: 0 Note Initiated On: 03/09/2025 11:37 AM
--- NOTE | 2025-03-09 12:50 | PCM.POSTANE2 ---
Anesthesia Postop Eval I Sum Postop Eval Completion status Anesthesia document: Postop Eval 1 completed: Yes Anesthesia Postop Eval I Summary Anesthesia Postop Eval I Summary: Anesthesia Postop Eval I: Assessment Summary Airway patent Yes 03/09/25 12:06 [email or web address] Spontaneous unlabored Yes 03/09/25 12:06 [email or web address] respirations Mental status Asleep 03/09/25 12:06 [email or web address] nausea No 03/09/25 12:06 [email or web address] Vomiting No 03/09/25 12:06 [email or web address] Anesthesia Postop Eval I: Fluid Summary Crystalloid volume administer 600 03/09/25 12:06 [email or web address] (ml) Colloids volume administered ( ml) Blood Product volume administered (ml) Total IV fluid infused 600 03/09/25 12:06 [email or web address] Anesthesia Postop Eval I: Summary Notes Anesthesia Complication No 03/09/25 12:06 [email or web address] Anesthesia Complication Comment: Post-operative progress note Anesthesia: Postop Eval II Evaluation Mental status: Awake Pain Level: 0 nausea: No Vomiting: No
[2025-03-10 15:20] LABS: Bedside Glucose 127 mg/dL (74-106)
== END 2025-03-09 12:40 | disposition home or self-care (01) ==
LOC: EN 09:24 → AC 09:26
PROVIDERS: Visit Provider Internal Medicine Gastroenterology
PROC: 0DJD8ZZ Inspection of Lower Intestinal Tract, Via Natural or Artificial Opening Endoscopic (ICD-10-PCS; CPT 45378; principal; 2025-03-09 10:25)
DX: K31.89 Other diseases of stomach and duodenum (principal); K44.9 Diaphragmatic hernia without obstruction or gangrene; F17.210 Nicotine dependence, cigarettes, uncomplicated; K57.30 Diverticulosis of large intestine without perforation or abscess without bleeding; E78.00 Pure hypercholesterolemia, unspecified; F41.9 Anxiety disorder, unspecified; F32.A Depression, unspecified; K63.89 Other specified diseases of intestine; Z79.51 Long term (current) use of inhaled steroids; Z79.82 Long term (current) use of aspirin; Z79.899 Other long term (current) drug therapy; Z79.84 Long term (current) use of oral hypoglycemic drugs
CPT/HCPCS: 45380; 43239; 43248; 82962; 88305; C1769; J2405

== ENCOUNTER → 2025-03-17 | Outpatient (CLI) | payer MEDICARE, MEDICAID, SELFPAY ==
--- NOTE | 2025-03-17 16:18 | CT_ITS ---
PROCEDURE: CHEST WITHOUT CONTRAST 03/17/2025 REASON FOR EXAM: MULTIPLE SUB CENTIMETER NODULES TECHNIQUE: Chest CT without contrast. Coronal and Sagittal reconstruction series were provided. One or more dose reduction techniques were used (e.g., Automated exposure control, adjustment of the mA and/or kV according to patient size, use of iterative reconstruction technique RADIATION DOSE SUMMARY: CTDlvol: 8.3 mGy DLP: 277.95 mGycm COMPARISON: Comparison is made with prior study dated March 19, 2022. FINDINGS: Hardware: None Lymph nodes: Small benign-appearing mediastinal lymph nodes. Heart and Vasculature: Coronary artery calcifications are noted. Atherosclerotic calcifications of the thoracic aorta. Thoracic aorta and pulmonary arteries have normal contours; noncontrast technique limits evaluation. Coronary Artery Calcifications: Present Lungs and Airways: Stable 2 mm calcified granuloma in the lateral aspect of the right upper lobe as seen on axial image number 29. Stable 4.3 mm noncalcified nodule in the posterior medial aspect of the superior segment of the right lower lobe as seen on axial image number 62. Stable 5 mm noncalcified nodule in the subpleural aspect of the right middle lobe as seen on axial image number 74 Pleura: Unremarkable Upper Abdomen: Questionable cyst in the upper pole of the left kidney. Bones: Degenerative changes of the thoracic spine. CT/Chest without Contrast IMPRESSION: Coronary artery calcification (CAC) is is present Stable examination. 12 month follow-up recommended. Reading Location: [id number]
== END | disposition home or self-care (01) ==
LOC: CT 16:17
PROVIDERS: PCP Internal Medicine; Referring Provider Nurse Practitioner Family; Visit Provider Nurse Practitioner Family
DX: R91.8 Other nonspecific abnormal finding of lung field (principal); F17.210 Nicotine dependence, cigarettes, uncomplicated
CPT/HCPCS: 71250

== ENCOUNTER → 2025-03-22 | Outpatient (CLI) | payer MEDICARE, MEDICAID, SELFPAY ==
--- NOTE | 2025-03-22 13:13 | US_ITS ---
PROCEDURE: KIDNEY AND BLADDER 03/22/2025 REASON FOR EXAM: LEFT RENAL CYST TECHNIQUE: Bilateral renal ultrasound. COMPARISON: None FINDINGS: RIGHT Kidney Size: 11.2 cm x 5 cm x 5.8 cm Volume: 170 mL Cortical Thickness (if discernible): 1.7 (>6mm is normal) There is a 6 mm x 5 mm x 2 mm intra parenchymal calculus. Extrarenal pelvis. LEFT Kidney Size: 11.2 cm x 4.7 cm x 5.4 cm Volume: 148.4 mL Cortical thickness: 1.8 cm There is a 2.5 cm x 2.8 cm x 2.6 cm cyst in the upper pole. There is a 5 mm x 3 mm x 4 mm nonobstructive intrarenal calculus. Bladder: Prevoid volume: 143.6 postvoid volume: 138.8 US/Kidney and Bladder IMPRESSION: Small bilateral nonobstructive intrarenal calculi. Left renal cyst. Postvoid residual. Reading Location: [id number]
--- NOTE | 2025-03-22 13:13 | US_ITS ---
PROCEDURE: THYROID 03/22/2025 REASON FOR EXAM: NODULE FOLLOW UP TECHNIQUE: High-frequency thyroid ultrasound, including grayscale and color-flow images. REFERENCE LINKS: TI-RADS Chart: [email or web address] TI-RADS Calculator Tool with Reference Images: [email or web address]/ COMPARISON: Comparison is made with prior study dated January 08, 2024. FINDINGS: Right thyroid lobe size: 3.8 cm x 1.9 cm x 2.5 cm Left thyroid lobe size: 4.2 cm x 1.4 cm x 2.5 cm Isthmus: 0.31 cm Background parenchymal echotexture is homogeneous. Nodules: . Lobe: Right, Location: Mid portion of the kidney, Size: 1.5 cm x 1.2 cm x 1 point 0 cm, Stability: Stable Composition: Mixed cystic and solid (+1) Echogenicity: Hypoechoic (+2) Margin: Ill-defined (+0) Shape: Wider than tall (+0) Echogenic Foci: None (+0) TI-RADS: <2 = TR 1 * 2 = TR 2 * 3 = TR 3 * 4-6 = TR 4 * >6 = TR 5 . Lobe: Left, Location: Lateral inferior pole, Size: 5 mm x 4 mm x 5 mm cm, Stability: Stable Composition: Cystic or mostly cystic (+0) Echogenicity: Anechoic (+0) Margin: Smooth (+0) Shape: Wider than tall (+0) Echogenic Foci: None (+0) TI-RADS: <2 = TR 1 * 2 = TR 2 * 3 = TR 3 * 4-6 = TR 4 * >6 = TR 5 US/Thyroid IMPRESSION: Stable examination. RECOMMENDATION: Based on most suspicious nodule. Nodule size = largest diameter Only evaluate nodule if =>5 mm. Growth > 20% in 2 dimensions = worsening. Follow up to 4 nodules. Recommend biopsy for no more than 2 nodules. Reading Location: [id number]
== END | disposition home or self-care (01) ==
LOC: US 13:10
PROVIDERS: PCP Internal Medicine; Referring Provider Internal Medicine; Visit Provider Internal Medicine
DX: E04.1 Nontoxic single thyroid nodule (principal); N28.1 Cyst of kidney, acquired
CPT/HCPCS: 76536; 76770

== ENCOUNTER → 2025-03-24 | Outpatient (CLI) | payer MEDICARE, MEDICAID, SELFPAY | END | disposition home or self-care (01) | LOC: PSN 10:29 | PROVIDERS: PCP Internal Medicine; Referring Provider Nurse Practitioner Family; Visit Provider Nurse Practitioner Family | DX: F17.210 Nicotine dependence, cigarettes, uncomplicated (principal) | CPT/HCPCS: 94060; 94726; 94729 ==

== ENCOUNTER → 2025-03-28 | Outpatient (CLI) | payer MEDICARE, MEDICAID, SELFPAY ==
[2025-03-28 13:52] VITALS: PULSE 76; PULSE 87; PULSE 89; PULSE 92; PULSE 93; PULSE 94; PULSE 96; PULSE 97; O2SAT 96; O2SAT 97; O2SAT 98
--- NOTE | 2025-04-04 07:16 | PCM.PSN.6M ---
PSN 6 Minute Walk Test 6 Minute Walk Test 6 Minute Walk Test: 6 Minute Walk Test PSN:6-Minute Walk Test Start: 03/28/25 13:36 Freq: Status: Discharge Protocol: [id number] Document 03/28/25 13:52 [facility] (Rec: 03/28/25 13:56 [facility] [id number]) 6 Minute Walk Test Date Performed 03/28/25 Time Performed 12:30 Height 5 ft 1 in Weight: 135 lb Weight in Pounds 135.[address]: Rachel Madden Assistive device None used: Pre-test Oxygen Delivery Room Air Method Pulse Ox (%) 97 Pulse Rate (60-100 89 beats/min) Dyspnea Mio Scale ( 0 0-10) Exertion Mio Scale 8 (6-20) 1st minute Oxygen Delivery Room Air Method Pulse Ox (%) 96 Pulse Rate (60-100 87 beats/min) Dyspnea Mio Scale ( 1 0-10) Number of Rests 0 Taken 2nd minute Oxygen Delivery Room Air Method Pulse Ox (%) 98 Pulse Rate (60-100 94 beats/min) Dyspnea Mio Scale ( 2 0-10) Number of Rests 0 Taken Reported Symptoms Increased Work of Breathing 3rd minute Oxygen Delivery Room Air Method Pulse Ox (%) 98 Pulse Rate (60-100 92 beats/min) Dyspnea Mio Scale ( 3 0-10) Number of Rests 0 Taken Reported Symptoms Increased Work of Breathing 4th minute Oxygen Delivery Room Air Method Pulse Ox (%) 97 Pulse Rate (60-100 93 beats/min) Dyspnea Mio Scale ( 3 0-10) Number of Rests 0 Taken Reported Symptoms Increased Work of Breathing 5th minute Oxygen Delivery Room Air Method Pulse Ox (%) 97 Pulse Rate (60-100 97 beats/min) Dyspnea Mio Scale ( 3 0-10) Number of Rests 0 Taken Reported Symptoms Increased Work of Breathing 6th minute Oxygen Delivery Room Air Method Pulse Ox (%) 97 Pulse Rate (60-100 96 beats/min) Dyspnea Mio Scale ( 3 0-10) Number of Rests 0 Taken Reported Symptoms Increased Work of Breathing Post-test Oxygen Delivery Room Air Method Pulse Ox (%) 98 Pulse Rate (60-100 76 beats/min) Dyspnea Mio Scale ( 1 0-10) Exertion Mio Scale 11 (6-20) Full Laps Walked 17 Partial Lap, Number 31 of Tiles Walked Total Distance 1034 Walked (ft) Interpretation Interpretation: The patient ambulated 1034 feet over the course of 6 minutes beginning on room air without assistive devices. Pretesting oxygen saturation was noted to be 97% on room air. With ambulation, the sobia oxygen saturation was 96%. There was no significant exertional oxygen desaturation. Recommendations Recommendations: There is no indication for the use of supplemental oxygen at this time.
== END | disposition home or self-care (01) ==
LOC: PSN 12:10
PROVIDERS: PCP Internal Medicine; Referring Provider Nurse Practitioner Family; Visit Provider Nurse Practitioner Family
DX: F17.200 Nicotine dependence, unspecified, uncomplicated (principal)
CPT/HCPCS: 94618

== ENCOUNTER → 2025-03-31 | Outpatient (CLI) | payer MEDICARE, MEDICAID, SELFPAY ==
--- NOTE | 2025-03-31 15:23 | BD_ITS ---
PROCEDURE: DEXA BONE DENSITY STUDY 03/31/2025 REASON FOR EXAM: SCREENING F, age 69 y/o . Postmenopausal. TECHNIQUE: DXA scan of sites with data reported below. REFERENCE LINKS: ISCD Adult Positions COMPARISON: None FINDINGS: BMD and T-SCORES Lumbar spine: 0.882 g/cm2, T-score -2.0 Levels: L1 through L4 Left femoral neck: 0.608 g/cm2, T-score -2.2 Femoral neck comparison data not recommended for monitoring change. Left total hip: 0.671 g/cm2, T-score -2.2 Right femoral neck: 0.512 g/cm2, T-score -3.0 Femoral neck comparison data not recommended for monitoring change. Right total hip: 0.649 g/cm2, T-score -2.4 The World Health Organization has defined the following categories based on bone density: Normal bone density: T-score equal to or greater than -1.0 Osteopenia: T-score between -1.0 and -2.5 Osteoporosis: T-score equal to or less than -2.5 The patient does meet the pharmacological treatment recommendations for prevention of osteoporosis. BD/Dexa Bone Density Study IMPRESSION: OSTEOPOROSIS. Recommend follow-up as clinically warranted. Reading Location: [place] [id number]
== END | disposition home or self-care (01) ==
LOC: OPBD 15:17
PROVIDERS: PCP Internal Medicine; Referring Provider Internal Medicine; Visit Provider Internal Medicine
DX: Z78.0 Asymptomatic menopausal state (principal)
CPT/HCPCS: 77080

== ENCOUNTER → 2025-06-10 | Outpatient (CLI) | payer MEDICARE, MEDICAID, SELFPAY ==
--- NOTE | 2025-06-10 06:00 | ECHOD_ITS ---
Reason For Study Reason For Study: Chest pain Procedure This was a 2D Doppler, Color Flow transthoracic echocardiogram. Exam performed in department. Left Ventricle Normal LV size. Mild concentric left ventricular hypertrophy. The left ventricular ejection fraction is 60 %. Stage 1 diastolic dysfunction. No regional wall motion abnormalities noted. Right Ventricle Normal RV size. Normal systolic function. Atria Normal left atrium. Normal right atrium. Mitral Valve Normal mitral valve. Tricuspid Valve Normal tricuspid valve. Aortic Valve Trisinus/trileaflet aortic valve. Pulmonic Valve Normal pulmonic valve. Great Vessels Normal aortic root. The pulmonary artery is normal size. Inferior vena cava collapse with respiration. Pericardium/Pleural No pericardial effusion. MMode/2D Measurements & Calculations LVIDd: 4.3 cm IVSd: 1.2 cm Ao root diam: 2.5 cm LVIDs: 2.5 cm LVPWd: 1.2 cm RVDd: 3.3 cm FS: 41.0 % LAV(MOD-bp): 31.0 ml LVAd ap4: 22.6 cm2 LVAd ap2: 21.3 cm2 LAV(MOD-bp) Indexed: 19.8 ml/m2 LVLd ap4: 7.1 cm LVLd ap2: 7.5 cm LAV(MOD-sp2): 38.0 ml EDV(MOD-sp4): 57.2 ml EDV(MOD-sp2): 51.3 ml LAV(MOD-sp4): 22.2 ml EDV(sp4-el): 60.6 ml EDV(sp2-el): 50.9 ml LVAs ap4: 12.9 cm2 LVAs ap2: 9.7 cm2 LVLs ap4: 6.3 cm LVLs ap2: 6.1 cm ESV(MOD-sp4): 21.6 ml ESV(MOD-sp2): 13.2 ml ESV(sp4-el): 22.5 ml ESV(sp2-el): 13.1 ml EF(MOD-sp4): 62.2 % EF(MOD-sp2): 74.3 % EF(sp4-el): 62.9 % SV(MOD-sp4): 35.6 ml SV(MOD-sp2): 38.2 ml SV(sp4-el): 38.1 ml SI(MOD-sp4): 22.8 ml/m2 SI(MOD-sp2): 24.4 ml/m2 LA A4 area: 10.6 cm2 LA dimension(2D): 3.4 cm RA A4 area: 12.0 cm2 TAPSE: 1.7 cm Doppler Measurements & Calculations MV E max alejandro: 68.5 cm/sec Lat Peak E' Alejandro: 10.1 cm/sec Med Peak E' Alejandro: 9.5 cm/sec MV A max alejandro: 84.0 cm/sec E/E' lat: 6.8 E/E' med: 7.2 MV E/A: 0.82 Ao V2 max: 144.6 cm/sec LV V1 max: 120.0 cm/sec PA V2 max: 87.4 cm/sec Ao max P.4 mmHg LV V1 max P.8 mmHg ECHO/Echo Complete Interpretation Summary Normal LV size. Mild concentric left ventricular hypertrophy. The left ventricular ejection fraction is 60 %. Stage 1 diastolic dysfunction. Structurally normal valves. Ordering Physician: Dao Luciano Referring Physician: Cherry Chow Performed By: Jessica Samuels RDCS and Student
--- OUTSIDE RECORDS SUMMARY | 2025-06-10 06:05 | XMS RPT_ITS | CCD ---
Author Organization [facility] CliniSyms Care Team Providers Care Medical Anthropologist Name Role Phone TISH ROBLES Unavailable Unavailable TISH ROBLES Unavailable Unavailable Clarice Petersen MD Primary Care Provider Clarice Petersen MD Primary Care Provider Clarice Petersen MD Primary Care Provider Clarice Petersen MD Primary Care Provider PODLOGSAHRA CUNNINGHAM Referring Unavailable CLARICE PETERSEN Primary Care Unavailable Franklin Mirza PA-C Primary Care Provider Barbie Ruiz MD Unavailable Jake Raymond MD Primary Care Provider BIMAL HOLGUIN, JAKE Primary Care Physician TAD HOLGUIN, CAESAR Attending Unavailable BIMAL HOLGUIN, JAKE Primary Care Unavailable TAD HOLGUIN, CAESAR Attending Unavailable BIMAL HOLGUIN, JAKE Primary Care Unavailable Jake Raymond MD Primary Care Provider Hemanth Carranza MD Primary Care Provider Clarice Petersen MD Primary Care Provider Jake Raymond MD Primary Care Provider Podlogar INFECTIOUS DISEASE TECHNICIAN.Sahra GARCIA Unavailable Alexus Machuca DO Primary Care Provider Dr. Juarez Harris MD Attending Provider Dr. Juarez Harris MD Referring Provider Alexus Machuca DO Referring Provider Dr. Pernell Philippe DO Attending Provider Care Physician, No Primary Primary Care Provider Unavailable Friend , Dr. Gimenez Referring Provider Dennis Chow MD Primary Care Provider Rachel Madden CNP Unavailable Alexus Machuca DO Primary Care Provider Bimal HOLGUIN, Dr. Jake Juarez Referring Provider Jose Alejandro ORGAN TEACHER-C, Rachel Reid Attending Provider Care Physician, No Primary Referring Provider Un available Jose Martin ISSA, Dr. Gimenez Other Provider Claudine HOLGUIN, Dr. Carey Attending Provider Jose Alejandro ORGAN TEACHER-C, Rachel Reid Referring Provider Claudine HOLGUIN, Dr. Carey Primary Care Provider Dr. Dennis Chow MD Referring Provider oJse Alejandro ORGAN TEACHER-C, Rachel Reid Other Provider [phone] Dr. Mitch Ruiz DO Attending Provider Amanda Lopez Attending Provider Barbie Ruiz MD Unavailable Podlogar INFECTIOUS DISEASE TECHNICIAN.Sahra GARCIA Unavailable CRISTHIAN SMITH Referring Unavailable HEMANTH CARRANZA Primary Care Unavailab le CRISTHIAN SMITH Referring Unavailable SCHJAKE NEWMAN Primary Care Unavailable MASCCRISTHIAN Escobar Attending Unavailable SELF Referring Unavailable JAKE RAMYOND Primary Care Unavailable CRISTHIAN SMITH Referring Unavailable HEMANTH CARRANZA Primary Care Unavailab ORVILLE Gonzalez Attending Unavailable CRISTHIAN SMITH Attending Unavailable CRISTHIAN SMITH Referring Unavailable CRISTHIAN SMITH Referring Unavailable PELON WINCHESTER Attending Unavailable PELON WINCHESTER Referring Unavailable SCHJAKE NEWMAN E Primary Care Unavailable CRISTHIAN SMITH Attending Unavailable JAKE RAYMOND E Primary Care Unavailable CRISTHIAN SMITH Attending Unavailable CRISTHIAN SMITH Referring Unavailable MASCI, CRISTHIAN A Referring Unavailable BURSLEY, CHRISTOPHER B Primary Care Unavailab le BURSLEY, CHRISTOPHER B Referring Unavailab le BURSLEY, CHRISTOPHER B Primary Care Unavailab le MASCI, CRISTHIAN A Referring Unavailable BURSLEY, CHRISTOPHER B Primary Care Unavailab le MASCI, CRISTHIAN A Referring Unavailable BURSLEY, CHRISTOPHER B Primary Care Unavailab le Care Physician, No Primary Primary Care Provider Unavailable Dr. Pernell Philippe DO Attending Provider Dr. Mitch Ruiz DO Attending Provider [phone] [place] HOLGUIN, Dr. Dc Attending Provider Care Physician, No Primary Primary Care Provider Unavailable Rachel Arias Attending Provider Dr. Dao Luciano MD Referring Provider NURSE, BIM Attending Provider Unavailable Gladstone, Dennis Primary Care Unavailable Claudine, Dennis Referring Unavailable Amanda Milton Attending Unavailable Rachel Madden Referring Unavailable Claudine, Dennis Primary Care Unavailable Mitch Ruiz Attending Unavailable FriendPernell Attending Unavailable Care Physician, No Primary Primary Care Unava ilable Care Physician, No Primary Referring Unava ilable Friend, Pernell Consulting Unavailable Claudine, Dennis Primary Care Unavailable Gladstone, Dennis Referring Unavailable Dao Luciano Attending Unavailable Claudine, Dennis Attending Unavailable Gladstone, Dennis Primary Care Unavailable Gladstone, Dennis Referring Unavailable Care Physician, No Primary Primary Care Unava ilable Friend, Pernell Referring Unavailable FriendPernell Attending Unavailable Care Physician, No Primary Primary Care Unava ilable Friend, Pernell Referring Unavailable Pernell Philippe Attending Unavailable Rachel Madden Attending Unavailable Rachel Madden Referring Unavailable Claudine, Dennis Primary Care Unavailable Rachel Madden Consulting Unavailable Rachel Madden Referring Unavailable Claudine, Dennis Primary Care Unavailable Mitch Ruiz Attending Unavailable NURSE, BIM Attending Unavailable Claudine, Dennis Primary Care Unavailable Gladstone, Dennis Referring Unavailable Care Physician, No Primary Primary Care Unava ilable Rachel Madden Attending Unavailable Jake Raymond Referring Unavailable Rachel Madden Attending Unavailable Rachel Madden Referring Unavailable Gladstone, Dennis Primary Care Unavailable Sven [facility], Alexus Primary Care Unavailable Steven, Juarez Referring Unavailable StevenYaya hurtadoin Attending Unavailable Sven [facility], Alexus Primary Care Unavailable Steven, Juarez Referring Unavailable Yaya Harrisin Attending Unavailable Rachel Madden Attending Unavailable Rachle Madden Referring Unavailable Claudine, Dennis Primary Care Unavailable Gladstone, Dennis Attending Unavailable Claudine, Dennis Primary Care Unavailable Claudine, Dennis Referring Unavailable Care Physician, No Primary Referring Unava ilable Care Physician, No Primary Primary Care Unava ilable Pernell Philippe Attending Unavailable Gladstone, Dennis Primary Care Unavailable Dao Luciano Referring Unavailable Mustapha, Dao Attending Unavailable Gladstone, Dennis Primary Care Unavailable Dao Luciano Referring Unavailable Dao Luciano Attending Unavailable Care Physician, No Primary Primary Care Unava ilable Care Physician, No Primary Referring Unava ilable Claudine, Dennis Attending Unavailable Gladstone, Dennis Primary Care Unavailable Dao Luciano Attending Unavailable Dao Luciano Referring Unavailable Claudine, Dennis Primary Care Unavailable Gladstone, Dennis Referring Unavailable Amanda Milton Attending Unavailable Care Physician, No Primary Referring Unava ilable Rachel Madden Attending Unavailable Claudine, Dennis Primary Care Unavailable Sven [facility], Alexus Referring Unavailable Sven [facility], Alexus Primary Care Unavailable Pernell Philippe Attending Unavailable Gladstone, Dennis Primary Care Unavailable Claudine, Dennis Referring Unavailable Curtis ORGAN TEACHERGinny Attending Unavailable Allergies Allergy Classification Reported Allergen(s) Allergy Type Date of Onset Reaction(s) Facility (20 sources) Adhesive agent; Translations: [ADHESIVE] Propensity to adverse reactions to drug (disorder) 3 Other: See Comments [facility] Rep[facility] (20 sources) ciprofloxacin; Translations: [CIPROFLOXACIN] Drug Allergy 4 Rash [facility] (20 sources) clindamycin; Translations: [CLINDAMYCIN] Drug Allergy 6 Swelling [facility] Comment on above: Pt's pcp office has clindamycin listed as allergy, but pt recently was prescribed it and did not appear to have a reaction. (1 source) doxycycline; Translations: [DOXYCYCLINE] Drug Allergy 4 AOF [facility] (20 sources) FLUoxetine; Translations: [FLUOXETINE HCL] Drug Allergy 3 Rash [facility] (20 sources) metroNIDAZOLE; Translations: [METRONIDAZOLE] Drug Allergy 4 Anaphylaxis [facility] (20 sources) Penicillins; Translations: [PENICILLINS] Propensity to adverse reactions to drug (disorder) 2 Intolerance [facility] (20 sources) AMOXICILLIN-POT CLAVULANATE; Translations: [AMOXICILLIN-POT CLAVULANATE] Propensity to adverse reactions to drug (disorder) 4 Other: See Comments [facility] (20 sources) SULFA DYNE; Translations: [SULFA DYNE] Propensity to adverse reactions to drug (disorder) 2 Rash [facility] (15 sources) Amoxicillin; Translations: [amoxicillin trihydrate] Drug Allergy 0 thrush/yeast infection [facility] (15 sources) Ciprofloxacin; Translations: [ciprofloxacin HCl] Drug Allergy 0 [facility] (15 sources) Sulfonamides (Antibiotic); Translations: [Sulfa (Sulfonamide Antibiotics)] Allergy to substance 0 [facility] (15 sources) potassium clavulanate; Translations: [potassium clavulanate] Propensity to adverse reactions 0 thrush/yeast infection [facility] (2 sources) FLUoxetine; Translations: [fluoxetine] Drug Allergy mental status change [facility] (2 sources) Sulfonamide; Translations: [sulfa drugs] Drug allergy [facility] Medications Current Medications Medication Drug Class(es) Dates Sig (Normalized) Sig (Original) Albuterol (Eqv-ProAir HFA) 90 mcg/inh inhalation aerosol (2 sources) Start: 02-10-2024 Albuterol (Eqv-ProAir HFA) 90 mcg/inh inhalation aerosol Dose = 1 puff(s), 0 Refill(s) Start Date: 02/10/24 Status: Ordered aspirin 81 mg delayed release oral tablet (20 sources) Platelet Aggregation Inhibitor, Nonsteroidal Anti-inflammatory Drug Start: 02-02-2025 Aspirin (Adult Low Dose Aspirin) 81 mg tablet,delayed release (DR/EC) Active 81 mg PO daily February 02, 2025 12:00am Start: 02-10-2024 aspirin 81 mg oral tablet, chewable Dose : 81 mg = 1 tab(s), Oral, Daily, # 90 tab(s), 0 Refill(s) Start Date: 02/10/24 Status: Ordered Start: 10-06-2017 End: 11-08-2024 Aspirin (Adult Low Dose Aspi rin) 81 MG tablet,delayed release (DR/EC) Discontinued 81 mg PO DAILY October 06, 2017 1:00am November 08, 2024 5:37pm health maintenance Comment on above: Take 81 mg by mouth once daily. benoxinate hydrochloride 4 mg/ml / fluorescein sodium 2.5 mg/ml ophthalmic solution (1 source) Diagnostic Dye Start: 02-12-2022 End: 02-13-2022 fluorescein-benoxinate 0.25-0.4 % 1 Drop (FLURESS) Blood-Glucose Meter monitoring kit (20 sources) Start: 12-02-2016 Blood-Glucose Meter monitoring kit Glucose Meter of Choice - Kit - Dx: Type 2 DM - Controlled E11.9 1 Each 12/02/2016 Active Start: 12-02-2016 Blood-Glucose Meter monitoring kit Glucose Meter of Choice - Kit - Dx: Type 2 DM - Controlled E11.9 1 Each 0 12/02/2016 Active Comment on above: Glucose Meter of Cho ice - Kit - Dx: Type 2 DM - Controlled E11.9 cephalexin 250 mg oral capsule (3 sources) Cephalosporin Antibacterial Start: 023 End: take 1 capsule by mouth three times daily cephALEXin (KEFLEX) 250 mg capsule Indications: Laceration of right middle finger without foreign body without damage to nail, subsequent encounter Take 1 capsule by mouth three times daily for 7 days. 21 capsule 0 02/17/2023 02/24/2023 Active Comment on above: Take 1 capsule by [facility] three times daily for 7 days. cholecalciferol 0.025 mg oral capsule (20 sources) Vitamin D Start: 024 cholecalciferol (vitamin D3) 25 mcg (1,000 unit) capsule cholecalciferol (vitamin D3) 25 mcg (1,000 unit) capsule, 0 Refill(s) Start Date: 02/10/24 Status: Ordered Start: 08-12-2019 End: 04-26-2025 take 1 capsule by mouth once daily Cholecalciferol (Vitamin D3) 25 mcg (1,000 unit) capsule Active 1000 U PO DAILY 90 0 April 26, 2025 3:39pm Comment on above: Take 1 capsule by [facility] once daily. citalopram 40 mg oral tablet (20 sources) Serotonin Reuptake Inhibitor Start: End: take 2 tablets by mouth once daily citalopram (CELEXA) 20 mg tablet Indications: Recurrent major depression in partial remission (HCC) Take 2 tablets by mouth once daily. [facility] 05/24/2022 06/12/2022 Discontinued Start: 02-22-2020 End: 05-24-2022 take 1 tablet by mouth once daily citalopram (CELEXA) 20 mg tablet Indications: Recurrent major depression in partial remission (HCC) Take 1 tablet by mouth once daily. 30 tablet 3 02/22/2020 05/03/2022 Discontinued Start: 08-12-2019 End: 11-08-2024 take 1 tablet by mouth at bedtime Citalopram 40 MG tablet Discontinued 40 mg PO AT BEDTIME August 12, 2019 12:00am November 08, 2024 5:37pm Comment on above: Take 1 tablet by [facility] once daily. Take 2 tablets by [facility] once daily. [facility] Take 40 mg by mouth once daily. clobetasol propionate 0.5 mg/ml topical cream (20 sources) Corticosteroid Start: 02-03-20 End: 03-16-20 apply 1 g topically once daily as needed Clobetasol 0.05 % cream Active 1 g TOPICAL daily as needed for rash 15 March 16, 2025 1:54pm Start: 07-14-2020 End: 09-29-2023 clobetasol (TEMOVATE) 0.05 % cream Indications: Dyshidrotic hand dermatitis apply to rash on legs and hands twice daily 5 days a week as needed. Apply twice daily as needed, up to 21 days per month. Avoid application to the face, armpits, groin. 45 g 1 09/29/2023 Active Comment on above: apply to rash on leg s and hands twice daily 5 days a week as needed. Apply twice daily as needed, up to 21 days per month. Avoid application to the face, armpits, groin. Coenzyme Q10 100 mg oral capsule (2 sources) Start: 02-10-20 take 1 capsule by mouth once, then take 1 capsule by mouth once daily Coenzyme Q10 100 mg oral capsule Dose : 100 mg = 1 cap(s), Oral, Daily, 0 Refill(s) Start Date: 02/10/24 Status: Ordered COMPOUNDED PRESCRIPTION (20 sources) Start: 09-09-20 COMPOUNDED PRESCRIPTION Indications: Degeneration of lumbar or lumbosacral intervertebral disc Tens unit DX: DDD of neck and lumbar spine 1 Each 0 09/09/2016 Active Comment on above: Tens unit DX: DDD of neck and lumbar spine 1 ml denosumab 60 mg/ml prefilled syringe (3 sources) RANK Ligand Inhibitor Start: 04-14-20 End: 05-24-20 Denosumab (Prolia) 60 mg/mL syringe Active 60 mg SC every 6 months 1 May 24, 2025 4:34pm 0.5 ml dulaglutide 1.5 mg/ml auto-injector (20 sources) GLP-1 Receptor Agonist Start: 05-16-20 Dulaglutide (Trulicity) 0.75 mg/0.5 mL pen injector Active 1.5 mg SC EVERY WEEK May 16, 2025 2:25pm Start: 02-02-2025 End: 05-16-2025 Dulaglutide (Trulicity) 0.75 mg/0.5 mL pen injector Discontinued 1.5 mg SC MO 2 April 26, 2025 7:57am May 16, 2025 2:26pm Start: 11-08-2024 End: 02-02-2025 Dulaglutide (Trulicity) 0.75 mg/0.5 mL pen injector Discontinued 0.75 mg SC EVERY WEEK November 08, 2024 1:00am February 02, 2025 10:48am Start: 03-19-2022 End: 05-24-2024 dulaglutide (TRULICITY) 1.5 mg/0.5 mL pen injector Inject 1.5 mg subcutaneously one time a week. Inject once per week. Discard Pen After 4 Each 5 12/08/2023 Active Start: 01-26-2022 End: 01-26-2023 inject 0.75 mg by subcutaneous injection every week dulaglutide (TRULICITY) 0.75 mg/0.5 mL pen injector Inject 0.75 mg subcutaneously one time a week. Inject dose once per week. Discard Pen After 2 mL 11 01/26/2022 03/19/2022 Discontinued Comment on above: Inject 0.75 mg subcu taneously one time a week. Inject dose once per week. Discard Pen After Inject 1.5 mg subcut aneously one time a week. Inject once per week. Discard Pen After erythromycin 0.005 mg/mg ophthalmic ointment (3 sources) Macrolide, Macrolide Antimicrobial Start: 10-14-20 End: 10-21-20 erythromycin (ROMYCIN) 5 mg/gram (0.5 %) ophthalmic ointment Indications: Hordeolum internum of right upper eyelid Use 1 application in the right eye four times daily for 7 days. 1 g 0 10/14/2023 10/21/2023 Active Comment on above: Use 1 application in the right eye four times daily for 7 days. famotidine 20 mg oral tablet (20 sources) Histamine-2 Receptor Antagonist Start: 11-08-20 take 1 tablet by mouth once daily Famotidine 20 mg tablet Active 20 mg PO daily November 08, 2024 1:00am Start: 03-26-2023 End: 04-17-2024 take 1 tablet by mouth once daily famotidine (PEPCID) 20 mg tablet Take 1 tablet by mouth once daily. 30 tablet 11 04/18/2023 04/17/2024 Start: 05-05-2022 End: 08-03-2022 take 1 tablet by mouth once daily famotidine (PEPCID) 20 mg tablet Take 1 tablet by mouth once daily. 90 tablet 3 05/05/2022 08/03/2022 Start: 01-28-2022 End: 04-28-2022 take 1 tablet by mouth once daily famotidine (PEPCID) 20 mg tablet Take 1 tablet by mouth once daily. 90 tablet 0 01/28/2022 04/28/2022 Active Comment on above: Take 1 tablet by [facility] once daily. Take 20 mg by mouth once daily. fluorouracil 50 mg/ml topical cream (20 sources) Nucleoside Metabolic Inhibitor Start: 02-02-2025 Fluorouracil 5 % cream Active 1 NMA TOPICAL TWICE A DAY February 02, 2025 12:00am Start: 07-17-2021 End: 06-24-2024 Fluorouracil (EFUDEX) 5 % cr eam Indications: AK (actinic keratosis) Apply to affected areas twice daily for 2-4 weeks or until red blistering reaction occurs. 40 g 07/17/2021 06/24/2024 Discontinued Comment on above: Apply to affected ar eas twice daily for 2-4 weeks or until red blistering reaction occurs. Fluticasone Propion-Salmeterol (20 sources) Corticosteroid, beta2-Adrenergic Agonist Start: 11-08-2024 Fluticasone Propion-Salmeterol 250-50 mcg/dose blister with device Active 1 NMA INHALATION TWICE A DAY November 08, 2024 1:00am Start: 02-10-2024 take 1 puff(s) by mo [facility] twice daily fluticasone-salmeterol 250 mcg-50 mcg inhalation powder Inhale 1 Puff as instructed two times a day. RINSE AND GARGLE MOUTH WITH WATER AFTER EACH USE. Start Date: 02/10/24 Status: Ordered Start: 10-16-2023 End: 06-24-2024 take 1 puff(s) by mouth twice daily fluticasone-salmeterol (ADVAIR DISKUS) 250-50 mcg/dose inhaler Inhale 1 Puff as instructed two times a day. RINSE AND GARGLE MOUTH WITH WATER AFTER EACH USE. 3 Each 2 10/16/2023 06/24/2024 Discontinued Start: 10-16-2023 End: 07-12-2024 take 1 puff(s) by mouth twice daily fluticasone-salmeterol (ADVAIR DISKUS) 250-50 mcg/dose inhaler Inhale 1 Puff as instructed two times a day. RINSE AND GARGLE MOUTH WITH WATER AFTER EACH USE. 3 Each 2 10/16/2023 07/12/2024 Active Start: 05-19-2023 End: 10-16-2023 take 1 puff(s) by mouth twice daily fluticasone-salmeterol (ADVAIR DISKUS) 250-50 mcg/dose inhaler Inhale 1 Puff as instructed twice daily. RINSE AND GARGLE MOUTH WITH WATER AFTER EACH USE. 60 Each 2 05/19/2023 10/16/2023 Discontinued Start: 05-19-2023 take 1 puff(s) by mo [facility] twice daily fluticasone-salmeterol (ADVAIR DISKUS) 250-50 mcg/dose inhaler Inhale 1 Puff as instructed twice daily. RINSE AND GARGLE MOUTH WITH WATER AFTER EACH USE. 60 Each 2 05/19/2023 Active Start: 05-19-2023 End: 08-17-2023 take 1 puff(s) by mouth twice daily fluticasone-salmeterol (ADVAIR DISKUS) 250-50 mcg/dose inhaler Inhale 1 Puff as instructed twice daily. RINSE AND GARGLE MOUTH WITH WATER AFTER EACH USE. 60 Each 2 05/19/2023 08/17/2023 Active Start: 02-28-2022 End: 05-19-2023 take 1 puff(s) by mouth twice daily fluticasone-salmeterol (ADVAIR DISKUS) 250-50 mcg/dose inhaler Inhale 1 Puff as instructed twice daily. RINSE AND GARGLE MOUTH WITH WATER AFTER EACH USE. 1 Each 11 02/28/2022 05/19/2023 Discontinued Start: 02-28-2022 take 1 puff(s) by mo [facility] twice daily fluticasone-salmeterol (ADVAIR DISKUS) 250-50 mcg/dose inhaler Inhale 1 Puff as instructed twice daily. RINSE AND GARGLE MOUTH WITH WATER AFTER EACH USE. 1 Each 11 02/28/2022 Active Start: 02-12-2021 take 1 puff(s) by in halation twice daily fluticasone-salmeterol (ADVAIR, WIXELA) 250-50 mcg/dose Inhale 1 Puff as instructed twice daily. 60 Each 1 02/12/2021 Active Start: 02-12-2021 take 1 puff(s) by mo [facility] twice daily fluticasone-salmeterol (ADVAIR DISKUS) 250-50 mcg/dose inhaler Inhale 1 Puff as instructed twice daily. RINSE AND GARGLE MOUTH WITH WATER AFTER EACH USE. 1 Each 02/28/2022 Active Comment on above: Inhale 1 Puff as ins tructed twice daily. Inhale 1 Puff as ins tructed twice daily. RINSE AND GARGLE MOUTH WITH WATER AFTER EACH USE. Inhale 1 Puff as ins tructed two times a day. RINSE AND GARGLE MOUTH WITH WATER AFTER EACH USE. Mometasone-Formot fernie (14 sources) Corticosteroid, beta2-Adrenergic Agonist Start: 09-18-2020 take 13 g by inhalation once daily Mometasone-Formote rol Active 13 GM IH DAILY September 18, 2020 1:32pm Start: 09-18-2020 End: 11-08-2024 Mometasone-Formoterol 8.8 GM HFA aerosol inhaler Discontinued 13 g IH DAILY September 18, 2020 1:00am November 08, 2024 5:37pm Start: 09-18-2020 take 13 g by inhalat ion once daily Mometasone-Formoterol Active 13 GM IH DAILY September 18, 2020 12:00am Start: 09-18-2020 take 13 g by inhalat ion once daily Mometasone-Formoterol Active 13 GM IH DAILY September 18, 2020 1:00am furosemide 20 mg oral tablet (20 sources) Loop Diuretic Start: 08-12-2019 End: 04-26-2025 take 1 tablet by mouth once daily Furosemide 20 mg tablet Active 20 mg PO DAILY 90 0 April 26, 2025 7:58am Comment on above: Take 1 tablet by [facility] th once daily. iv contrast (will be provided with radiology test) (4 sources) Start: 06-28-2024 End: 06-29-2024 iv contrast (will be provided with radiology test) Indications: Monoclonal gammopathy MRI CSP Inject, intravenously, once for 1 dose. No IV access, insert saline lock prior to the beginning of sedation, infusion, injection of imaging exam. Discontinue saline lock post exam. If Pt. has a central line or IVAD, may access for administration according to line specific nursing protocol. Once exam is complete flush line and de-access according to line specific nursing protocol in the MR contrast administration guidelines link. 1 Each 06/28/2024 06/29/2024 Active Start: 06-28-2024 End: 06-29-2024 inject 1 dose intravenously once iv contrast (will be provided with radiology test) Indications: Monoclonal gammopathy MRI TSP Inject, intravenously, once for 1 dose. No IV access, insert saline lock prior to the beginning of sedation, infusion, injection of imaging exam. Discontinue saline lock post exam. If Pt. has a central line or IVAD, may access for administration according to line specific nursing protocol. Once exam is complete flush line and de-access according to line specific nursing protocol in the MR contrast administration guidelines link. 1 Each 06/28/2024 06/29/2024 Active Start: 06-28-2024 End: 06-29-2024 iv contrast (will be provide d with radiology test) Indications: Monoclonal gammopathy MRI LSP Inject, intravenously, once for 1 dose. No IV access, insert saline lock prior to the beginning of sedation, infusion, injection of imaging exam. Discontinue saline lock post exam. If Pt. has a central line or IVAD, may access for administration according to line specific nursing protocol. Once exam is complete flush line and de-access according to line specific nursing protocol in the MR contrast administration guidelines link. 1 Each 06/28/2024 06/29/2024 Active Start: 06-28-2024 End: 06-29-2024 iv contrast (will be provide d with radiology test) Indications: Monoclonal gammopathy MRI pelvis ortho Inj, intravenously, once for 1 dose. No IV access, insert saline lock prior to the beginning of sedation, infusion, injection of imaging exam. Discontinue saline lock post exam. If Pt. has a central line or IVAD, may access for administration according to line specific nursing protocol. Once exam is complete flush line and de-access according to line specific nursing protocol in the MR contrast administration guidelines link 1 Each 06/28/2024 06/29/2024 Active Lactobacillus Acidophilus (Acidophilus) 1 EACH capsule (5 sources) Start: 04-01-2018 Lactobacillus Acidophilus (Acidophilus) 1 EACH capsule Active 1 EACH PO DAILY April 01, 2018 7:25pm Start: 04-01-2018 Lactobacillus Acidophilus (Acidophilus) 1 EACH capsule Active 1 EACH PO DAILY March 31, 2018 11:00pm Start: 04-01-2018 Lactobacillus Acidophilus (Acidophilus) 1 EACH capsule Active 1 EACH PO DAILY April 01, 2018 12:00am meloxicam 15 mg oral tablet (20 sources) Nonsteroidal Anti-inflammatory Drug Start: 11-08-2024 End: 04-26-2025 take 1 tablet by mouth once daily Meloxicam 15 mg tablet Active 15 mg PO daily 90 0 April 26, 2025 7:58am Start: 04-28-2023 End: 10-10-2024 take 1 tablet by mouth once daily meloxicam (MOBIC) 15 mg tablet Take 1 tablet by mouth once daily. 90 tablet 3 10/16/2023 10/10/2024 Comment on above: Take 1 tablet by cherrie th once daily. metFORMIN hydrochloride 500 mg oral tablet (20 sources) Biguanide Start: 02-02-2025 End: 04-26-2025 take 1 tablet by mouth twice daily Metformin 500 mg tablet Active 500 mg PO TWICE A DAY 180 0 April 26, 2025 7:59am Start: 09-29-2023 End: 06-14-2024 take 1 tablet by mouth twice daily Metformin 500 mg tablet Active 500 mg PO TWICE A DAY February 02, 2025 10:46am Start: 08-12-2019 End: 02-02-2025 take 1 tablet by mouth three times daily Metformin 500 MG tablet Discontinued 500 mg PO THREE TIMES A DAY August 12, 2019 12:00am February 02, 2025 10:48am Comment on above: Take 1 tablet by cherrie th three times daily. Take 1 tablet by cherrie th two times a day with meals. montelukast 10 mg oral tablet (20 sources) Leukotriene Receptor Antagonist Start: 7 End: take 1 tablet by mouth at bedtime Montelukast 10 mg tablet Active 10 mg PO AT BEDTIME 90 0 April 26, 2025 7:59am allergies Comment on above: Take 1 tablet by cherrie th daily at bedtime. pantoprazole 40 mg delayed release oral tablet (20 sources) Proton Pump Inhibitor Start: take 1 tablet by mouth once daily Pantoprazole 40 mg tablet,delayed release (DR/EC) Active 40 mg PO daily 90 3 May 09, 2025 12:00am Start: 08-12-2019 End: 04-26-2025 take 1 tablet by mouth once daily Pantoprazole 40 MG tablet Discontinued 40 mg PO DAILY August 12, 2019 12:00am April 26, 2025 7:59am Comment on above: Take 1 tablet by cherrie once daily. phenylephrine hydrochloride 25 mg/ml ophthalmic solution (1 source) alpha-1 Adrenergic Agonist Start: 02-13-20 End: 02-14-20 PHENYLephrine 2.5 % 1 Drop (AK-DILATE, NIEVES-SYNEPHRINE) predniSONE 20 mg oral tablet (1 source) Start: 05-24-20 End: 05-29-20 take 1 tablet by mouth once daily at mealtime predniSONE (DELTASONE) 20 mg tablet Indications: Acute pain of left shoulder Take 1 tablet by mouth once daily for 5 days. Take daily with food. 5 tablet 0 05/24/2022 05/29/2022 Active Comment on above: Take 1 tablet by cherrie once daily for 5 days. Take daily with food. raNITIdine 300 mg oral tablet (14 sources) Histamine-2 Receptor Antagonist Start: 08-12-20 take 300 mg by mouth once daily Ranitidine Hcl Active 300 MG PO DAILY August 12, 2019 12:00am Start: 08-12-2019 End: 11-08-2024 take 2 tablets by mouth once daily Ranitidine Hcl 150 MG tablet Discontinued 300 mg PO DAILY August 12, 2019 12:00am November 08, 2024 5:37pm Start: 08-12-2019 take 300 mg by mouth once mayuri y Ranitidine Hcl Active 300 MG PO DAILY August 12, 2019 12:20pm traZODone hydrochloride 100 mg oral tablet (20 sources) Serotonin Reuptake Inhibitor Start: 10-06-2017 End: 04-26-2025 take 1 tablet by mouth at bedtime Trazodone 100 mg tablet Active 100 mg PO AT BEDTIME 90 0 April 26, 2025 7:59am sleep Comment on above: Take 100 mg by mouth daily at bedtime. One or two tropicamide 10 mg/ml ophthalmic solution (1 source) Anticholinergic Start: 02-12-2022 End: 02-13-2022 tropicamide 1 % 1 Drop (MYDRIACYL) ubidecarenone 100 mg oral capsule (20 sources) Start: 04-26-2025 Coenzyme Q10 (Co Q-10) 100 mg capsule Active 200 mg PO DAILY 180 0 April 26, 2025 8:01am supplement Start: 06-22-2016 End: 04-26-2025 Coenzyme Q10 (Co Q-10) 100 M G capsule Discontinued 100 mg PO DAILY June 22, 2016 12:00am April 26, 2025 8:01am supplement Start: 06-22-2016 End: 03-21-2023 take 1 capsule by mouth twice daily coenzyme Q10 (COENZYME Q-10) 100 mg cap capsule Take 1 capsule by mouth twice daily. 60 capsule 11 03/21/2023 Active Comment on above: Take 1 capsule by mo [facility] twice daily. Completed/Discontinued Medications Medication Drug Class(es) Dates Sig (Normalized) Sig (Original) acetaminophen 325 mg / HYDROcodone bitartrate 5 mg oral tablet (20 sources) Opioid Agonist Start: 01-12-2023 End: 02-02-2025 Hydrocodone-Acetami nophen 5-325 mg tablet Discontinued 1 {tbl} PO EVERY 6 HOURS NEEDED as needed for Pain 10 3 0 January 12, 2023 February 02, 2025 10:48am Right-sided chest wall pain Other chest pain Start: 01-12-2023 take 1 tablet by cherrie th every six hours as needed Hydrocodone-Acetaminophen Active 1 TABLE T PO EVERY 6 HOURS NEEDED 10 3 January 12, 2023 Start: 09-18-2020 End: 09-21-2020 Hydrocodone-Acetaminophen 1 TABLET tablet Discontinued 1 {tbl} PO EVERY 6 HOURS NEEDED as needed for Pain 12 3 0 September 18, 2020 September 20, 2020 1:00am September 21, 2020 1:02am Calcific tendinitis Calcific tendinitis, unspecified site Start: 09-18-2020 End: 09-21-2020 take 1 tablet by mouth every six hours as needed Hydrocodone-Acetaminophen Discontinued 1 TABLET PO EVERY 6 HOURS NEEDED 12 3 September 18, 2020 September 21, 2020 1:02am Start: 08-12-2019 End: 11-08-2024 Hydrocodone-Acetaminophen 1 EACH tablet Discontinued 1 {tbl} PO EVERY 8 HOURS NEEDED as needed for Pain Score August 12, 2019 12:00am November 08, 2024 5:37pm Start: 08-12-2019 take 1 tablet by cherrie th every eight hours as needed Hydrocodone-Acetaminophen Active 1 TABLE T PO EVERY 8 HOURS NEEDED August 12, 2019 12:00am [id number] 200 actuat albuterol 0.09 mg/actuat metered dose inhaler (20 sources) beta2-Adrenergic Agonist Start: 11-08-2024 End: 05-16-2025 Albuterol Sulfate 90 mcg/actuation HFA aerosol inhaler Discontinued 1 NMA INHALATION ONCE November 08, 2024 1:00am May 16, 2025 2:24pm Start: 02-28-2022 End: 02-18-2025 take 2 puff(s) by inhalation every four hours as needed for wheezing albuterol HFA (PROVENTIL HFA, VENTOLIN HFA) 90 mcg/actuation inhaler Indications: Chronic obstructive pulmonary disease, unspecified COPD type (HCC) Inhale 2 Puffs as instructed every 4 hours as needed for wheezing/shortness of breath. 1 Each 2 09/29/2023 02/18/2025 Discontinued Start: 07-21-2020 End: 12-26-2022 take 2 puff(s) by inhalation every four hours as needed albuterol HFA (VENTOLIN HFA) 90 mcg/actuation inhaler Indications: Wheezing , Asthma with COPD (HCC) Inhale 2 Puffs as instructed every 4 hours as needed. 18 g 5 07/21/2020 12/26/2022 Discontinued (Duplicate Entry) Comment on above: Inhale 2 Puffs as in structed every 4 hours as needed. Inhale 2 Puffs as in structed every 4 hours as needed for wheezing/shortness of breath. alendronic acid 70 mg oral tablet (2 sources) Bisphosphonate Start: End: take 1 tablet by mouth every week Alendronate (Fosamax) 70 mg tablet Discontinued 70 mg PO EVERY WEEK 12 0 April 13, 2025 12:00am April 14, 2025 1:08pm aminolevulinate 200 mg/ml topical solution (20 sources) Start: End: Aminolevulinic Acid HCl 20 % soln 1 Each benzonatate 100 mg oral capsule (15 sources) Non-narcotic Antitussive Start: End: 12-30-2 024 take 1 capsule by mouth three times daily as needed for cough Benzonatate 100 MG capsule Discontinued 100 mg PO 3 TIMES DAILY NEEDED as needed for Cough August 12, 2019 12:00am November 08, 2024 5:37pm betamethasone 3 mg/ml / betamethasone acetate 3 mg/ml injectable suspension (1 source) Corticosteroid Start: 023 End: betamethasone acetate-betamethasone sodium phosphate 6 mg injection (CELESTONE) Start: 04-28-2023 End: 04-28-2023 betamethasone acetate-betame thasone sodium phosphate 6 mg injection (CELESTONE) 24 hr buPROPion hydrochloride 150 mg extended release oral tablet (20 sources) Aminoketone Start: 08-12-2019 End: 11-08-2024 take 1 tablet by mouth once daily Bupropion Hcl 150 MG tablet extended release 24 hr Discontinued 150 mg PO DAILY August 12, 2019 12:00am November 08, 2024 5:37pm Comment on above: Take 150 mg by mouth once daily. busPIRone hydrochloride 5 mg oral tablet (20 sources) Start: 06-22-2016 End: 11-08-2024 take 1 tablet by mouth twice daily Buspirone 5 MG tablet Discontinued 5 mg PO TWICE A DAY June 22, 2016 12:00am November 08, 2024 5:37pm mental health Comment on above: Take 5 mg by mouth t wice daily. celecoxib 100 mg oral capsule (14 sources) Nonsteroidal Anti-inflammatory Drug Start: 08-12-2019 End: 11-08-2024 take 1 capsule by mouth twice daily Celecoxib 100 MG capsule Discontinued 100 mg PO TWICE A DAY August 12, 2019 12:00am November 08, 2024 5:37pm gabapentin 300 mg oral capsule (20 sources) Anti-epileptic Agent Start: 12-26-2022 End: 09-29-2023 take 1 capsule by mouth once daily at bedtime gabapentin (NEURONTIN) 300 mg capsule Take 1 capsule by mouth daily at bedtime for 90 days. 90 capsule 2 12/26/2022 09/29/2023 Discontinued (Side Effects) Start: 06-22-2016 End: 11-08-2024 take 2 capsules by mouth twice daily Gabapentin 300 MG capsule Discontinued 600 mg PO TWICE A DAY June 22, 2016 12:00am November 08, 2024 5:37pm nerve pain Start: 06-22-2016 take 600 mg by mouth twice anastasia ly Gabapentin Active 600 MG PO TWICE A DAY June 22, 2016 12:00am Comment on above: Take 1 capsule by [facility] daily at bedtime for 90 days. lactobacillus acidophilus [id number] unt oral capsule (9 sources) Start: 04-01-2018 End: 11-08-2024 Lactobacillus Acidophilus (Acidophilus) 1 EACH capsule Discontinued 1 NMA PO DAILY April 01, 2018 12:00am November 08, 2024 5:37pm probiotic 10 ml lidocaine hydrochloride 10 mg/ml injection (20 sources) Antiarrhythmic, Amide Local Anesthetic Start: 04-28-2023 End: 04-28-2023 lidocaine (PF) 10 mg/mL (1 %) 4 mL injection (XYLOCAINE) Start: 09-19-2021 End: 09-29-2023 apply 1 dose transdermal route every twelve hours lidocaine (LIDODERM) 5 % Apply 1 Patch as directed every 12 hours. Remove old patch prior to placing new patch. Location: back 15 Patch 09/19/2021 09/29/2023 Discontinued Comment on above: Apply 1 Patch as dir ected every 12 hours. Remove old patch prior to placing new patch. Location: back lisinopril 5 mg oral tablet (14 sources) Angiotensin Converting Enzyme Inhibitor Start: 8 End: 5 take 1 tablet by mouth once daily Lisinopril 5 MG tablet Discontinued 5 mg PO DAILY 30 0 April 02, 2018 12:00am February 02, 2025 10:48am LORazepam 0.5 mg oral tablet (10 sources) Benzodiazepine Start: 4 End: 5 take 1 tablet by mouth once daily as needed Lorazepam 0.5 mg tablet Discontinued 0.5 mg PO daily as needed November 08, 2024 1:00am February 02, 2025 10:47am Start: 08-02-2024 End: 08-02-2024 take 1 tablet by mouth once, then take 1 tablet by mouth every hour LORazepam (ATIVAN) 0.5 mg Indications: Monoclonal gammopathy Take 1 tablet by mouth one time only for 1 dose. Take 1 tablet 1 hour prior to bone marrow biopsy. 1 tablet 08/02/2024 08/02/2024 Active olmesartan medoxomil 20 mg oral tablet (20 sources) Angiotensin 2 Receptor Sharif Start: 05-26-2023 End: 07-29-2023 take 0.5 tablet by mouth once daily olmesartan (BENICAR) 20 mg tablet Indications: Essential hypertension Take 0.5 tablets by mouth once daily. 90 tablet 1 05/26/2023 07/29/2023 Discontinued Start: 02-04-2022 End: 03-27-2023 take 0.5 tablet by mouth once daily olmesartan (BENICAR) 20 mg tablet Indications: Essential hypertension Take 0.5 tablets by mouth once daily. 30 tablet 5 03/06/2022 12/26/2022 Discontinued Start: 09-07-2021 End: 02-04-2022 take 1 tablet by mouth once daily olmesartan (BENICAR) 20 mg tablet Indications: Essential hypertension Take 1 tablet by mouth once daily. 30 tablet 5 09/07/2021 02/04/2022 Discontinued Comment on above: Take 0.5 tablets by mouth once daily. Take 1 tablet by [facility] once daily. omeprazole 40 mg delayed release oral capsule (5 sources) Proton Pump Inhibitor Start: 2024 End: 2024 take 1 capsule by mouth twice daily Omeprazole 40 mg capsule,delayed release(DR/EC) Discontinued 40 mg PO TWICE A DAY 90 1 May 09, 2025 3:47pm May 09, 2025 3:48pm ondansetron 4 mg disintegrating oral tablet (20 sources) Serotonin-3 Receptor Antagonist Start: 2017 End: 2024 take 1 tablet by mouth every eight hours as needed for nausea Ondansetron 4 mg tablet,disintegrating Discontinued 4 mg PO EVERY 8 HOURS NEEDED as needed for Nausea 30 0 March 17, 2025 4:55pm April 26, 2025 8:00am Comment on above: Take 1 tablet by cherrie every 8 hours as needed. pseudoephedrine hydrochloride 60 mg oral tablet (15 sources) alpha-Adrenergic Agonist Start: 2018 End: 2023 take 1 tablet by mouth every six hours as needed for congestion Pseudoephedrine Hcl 60 MG tablet Discontinued 60 mg PO EVERY 6 HOURS NEEDED as needed for Congestion August 12, 2019 12:00am November 08, 2024 5:37pm regadenoson (LEXISCAN) 0.4 mg/5 mL syrg (1 source) Start: 2021 End: 2021 regadenoson (LEXISCAN) 0.4 mg/5 mL syrg Indications: Chest pain, unspecified type Inject 5 mL intravenously one time only for 1 dose. Give IV push over 10 seconds and follow with 5 ml of normal saline 5 mL 0 08/08/2022 08/08/2022 Comment on above: Inject 5 mL intraven ously one time only for 1 dose. Give IV push over 10 seconds and follow with 5 ml of normal saline rosuvastatin calcium 20 mg oral tablet (20 sources) HMG-CoA Reductase Inhibitor Start: 2022 End: 2024 take 1 tablet by mouth once daily Rosuvastatin 20 mg tablet Discontinued 20 mg PO daily November 08, 2024 1:00am April 26, 2025 8:00am Start: 10-06-2017 End: 11-08-2024 take 1 tablet by mouth at bedtime Rosuvastatin 10 MG tablet Discontinued 10 mg PO AT BEDTIME October 06, 2017 1:00am November 08, 2024 5:36pm cholesterol Comment on above: Take 1 tablet by cherrie th daily at bedtime. tiZANidine 4 mg oral tablet (15 sources) Central alpha-2 Adrenergic Agonist Start: End: take 4-8 mg by mouth twice daily as needed for pain Tizanidine 4 MG tablet Discontinued 4 - 8 mg PO TWICE DAILY NEEDED as needed for Pain October 06, 2017 1:00am November 08, 2024 5:37pm Problems Active Problems Problem Classification Problem Date Documented Da te Episodic/Chronic Abdominal hernia (14 sources) Diaphragmatic hernia; Translations: [Diaphragmatic hernia without obstruction or gangrene] 05-22-2018 Episodic Comment on above: entered in error Abdominal pain (13 sources) Epigastric pain; Translations: [Epigastric pain] Onset: 4 Episodic Administrative/social admission (8 sources) First encounter by subject; Translations: [Persons encountering health services in other specified circumstances] 03-16-2025 Episodic Asthma (20 sources) Asthma; Translations: [Unspecified asthma, uncomplicated] Onset: 5 Chronic Biliary tract disease (14 sources) Cholelithiasis without obstruction; Translations: [Calculus of gallbladder without cholecystitis without obstruction] 05-22-2018 Episodic Comment on above: entered in error Cardiac dysrhythmias (2 sources) Supraventricular tachycardia; Translations: [Supraventricular tachycardia] Chronic Cardiac dysrhythmias (6 sources) Palpitations; Translations: [Palpitations] Onset: 5 Episodic Cataract (1 source) Bilateral senile combined form cataracts of eyes; Translations: [Combined forms of age-related cataract, bilateral] Chronic Chronic obstructive pulmonary disease and bronchiectasis (20 sources) Chronic obstructive lung disease; Translations: [Chronic obstructive pulmonary disease, unspecified] Onset: 5 Resolved: 1 03-28-2017 Chronic Chronic ulcer of skin (14 sources) Ulcer of lower extremity; Translations: [Non-pressure chronic ulcer of unspecified part of left lower leg with fat layer exposed] 09-18-2020 Chronic Complications of surgical procedures or medical care (14 sources) Non-healing surgical wound; Translations: [Other complications of procedures, not elsewhere classified, initial encounter] 09-18-2020 Episodic Deficiency and other anemia (1 source) Iron deficiency anemia secondary to inadequate dietary iron intake; Translations: [Other iron deficiency anemias] 06-02-2024 Episodic Diabetes mellitus with complications (20 sources) Neuropathy due to type 2 diabetes mellitus; Translations: [Type 2 diabetes mellitus with diabetic neuropathy, unspecified] Onset: 5 03-26-2021 Chronic Diabetes mellitus without complication (20 sources) Diabetes mellitus type 2 without retinopathy; Translations: [Type 2 diabetes mellitus without complications] Onset: 7 Resolved: 8 Chronic Diabetes mellitus without complication (13 sources) Hyperglycemia; Translations: [Hyperglycemia, unspecified] 01-20-2023 Episodic Diseases of white blood cells (1 source) Lymphocytosis; Translations: [Lymphocytosis (symptomatic)] Chronic Disorders of lipid metabolism (20 sources) Mixed hyperlipidemia; Translations: [Mixed hyperlipidemia] Onset: 7 Resolved: 7 03-10-2017 Chronic Comment on above: entered in error Esophageal disorders (20 sources) Gastroesophageal reflux disease; Translations: [Gastro-esophageal reflux disease without esophagitis] Onset: 5 05-15-2015 Chronic Comment on above: entered in error Essential hypertension (20 sources) Essential hypertension; Translations: [Essential (primary) hypertension] Onset: 2 Chronic Comment on above: entered in error Fluid and electrolyte disorders (2 sources) Hyperkalemia; Translations: [Hyperkalemia] Episodic Gastritis and duodenitis (7 sources) Chronic antral gastritis; Translations: [Unspecified chronic gastritis without bleeding] Chronic Immunizations and screening for infectious disease (2 sources) Needs influenza immunization; Translations: [Encounter for immunization] Episodic Inflammatory diseases of female pelvic organs (2 sources) Acute vaginitis; Translations: [Acute vaginitis] Onset: 4 Episodic Mood disorders (20 sources) Depressive disorder; Translations: [Depression] Onset: 5 05-15-2015 Chronic Nausea and vomiting (20 sources) Nausea; Translations: [Nausea] Onset: 5 Episodic Neoplasms of unspecified nature or uncertain behavior (20 sources) Monoclonal gammopathy (clinical); Translations: [Monoclonal gammopathy] Onset: 4 06-02-2024 Chronic Noninfectious gastroenteritis (14 sources) Colitis; Translations: [Noninfective gastroenteritis and colitis, unspecified] 08-13-2019 Episodic Nonspecific chest pain (20 sources) Chest pain; Translations: [Chest pain, unspecified] Onset: 5 Episodic Nutritional deficiencies (3 sources) Vitamin D deficiency; Translations: [Vitamin D deficiency, unspecified] Chronic Nutritional deficiencies (8 sources) Vitamin deficiency; Translations: [Vitamin deficiency, unspecified] 03-16-2025 Episodic Open wounds of extremities (14 sources) Laceration of finger; Translations: [Laceration without foreign body of unspecified finger without damage to nail, initial encounter] 02-05-2023 Episodic Osteoporosis (16 sources) Osteoporosis; Translations: [Age-related osteoporosis without current pathological fracture] Onset: 5 05-22-2018 Chronic Comment on above: entered in error Other connective tissue disease (15 sources) Calcific tendinitis of right shoulder; Translations: [Calcific tendinitis of right shoulder] 09-19-2020 Episodic Other diseases of kidney and ureters (20 sources) Cyst of kidney; Translations: [Cyst of kidney, acquired] Onset: 1 04-02-2021 Episodic Other diseases of kidney and ureters (1 source) Cyst of kidney, acquired; Translations: [Cyst of kidney, acquired] Onset: 5 Episodic Other eye disorders (1 source) Asteroid hyalosis of left eye; Translations: [Crystalline deposits in vitreous body, left eye] Chronic Other eye disorders (1 source) Lesion of right lower eyelid; Translations: [Unspecified disorder of eyelid] Episodic Other gastrointestinal disorders (3 sources) Dysphagia, unspecified; Translations: [Dysphagia, unspecified] Onset: 8 Episodic Other gastrointestinal disorders (20 sources) Dysphagia; Translations: [Dysphagia, unspecified] Onset: 8 11-25-2017 Episodic Other gastrointestinal disorders (14 sources) History of rectal bleeding; Translations: [Personal history of other diseases of the digestive system] 05-22-2018 Episodic Other gastrointestinal disorders (17 sources) Diarrhea; Translations: [Diarrhea, unspecified] Episodic Other gastrointestinal disorders (1 source) Diarrhea, unspecified; Translations: [Diarrhea, unspecified] Onset: 5 Episodic Other hematologic conditions (1 source) Hyperproteinemia; Translations: [Abnormality of plasma protein, unspecified] Episodic Other liver diseases (4 sources) High lipase level in serum; Translations: [Abnormal levels of other serum enzymes] Episodic Other lower respiratory disease (20 sources) Multiple nodules of lung; Translations: [Other nonspecific abnormal finding of lung field] Onset: 5 Resolved: 3 11-05-2021 Episodic Other lower respiratory disease (3 sources) Rib pain; Translations: [Pleurodynia] 09-10-2023 Episodic Other lower respiratory disease (5 sources) Cough; Translations: [Cough] 04-06-2025 Episodic Other lower respiratory disease (1 source) Shortness of breath; Translations: [Shortness of breath] Onset: 5 Episodic Other lower respiratory disease (1 source) Other nonspecific abnormal finding of lung field; Translations: [Other nonspecific abnormal finding of lung field] Onset: 5 Episodic Other nervous system disorders (20 sources) Bilateral carpal tunnel syndrome; Translations: [Carpal tunnel syndrome, bilateral upper limbs] Onset: 8 08-27-2018 Chronic Other non-traumatic joint disorders (4 sources) Shoulder pain; Translations: [Pain in left shoulder] Episodic Other non-traumatic joint disorders (1 source) Disorder of shoulder; Translations: [Other specified joint disorders, unspecified shoulder] Episodic Other non-traumatic joint disorders (1 source) Pain of right sternoclavicular joint; Translations: [Pain in right shoulder] Episodic Other non-traumatic joint disorders (1 source) Chronic pain of right upper limb; Translations: [Pain in right shoulder] 03-27-2023 Episodic Other non-traumatic joint disorders (1 source) Pain in left shoulder; Translations: [Pain in joint, shoulder region] 06-10-2022 Episodic Other non-traumatic joint disorders (1 source) Pain in right shoulder; Translations: [Pain in joint, shoulder region] 06-10-2022 Episodic Other nutritional; endocrine; and metabolic disorders (14 sources) Obesity; Translations: [Obesity, unspecified] 09-18-2020 Chronic Other nutritional; endocrine; and metabolic disorders (2 sources) Hypercalcemia; Translations: [Hypercalcemia] Chronic Other nutritional; endocrine; and metabolic disorders (13 sources) H/O: diabetes mellitus; Translations: [Personal history of other endocrine, nutritional and metabolic disease] 02-05-2023 Episodic Other screening for suspected conditions (not mental disorders or infectious disease) (20 sources) Patient encounter status; Translations: [Encounter for other screening for malignant neoplasm of breast] Onset: Episodic Other skin disorders (1 source) Vesicular hand eczema; Translations: [Dyshidrosis [pompholyx]] 09-29-2023 Episodic Other skin disorders (8 sources) Eruption; Translations: [Rash and other nonspecific skin eruption] 03-16-2025 Episodic Phlebitis; thrombophlebitis and thromboembolism (14 sources) History of thromboembolism of vein; Translations: [Personal history of other venous thrombosis and embolism] 05-22-2018 Episodic Comment on above: entered in error Pulmonary heart disease (20 sources) Pulmonary hypertension; Translations: [Pulmonary hypertension, unspecified] Onset: 8 12-08-2017 Chronic Residual codes; unclassified (1 source) History of squamous cell carcinoma; Translations: [Other specified postprocedural states] Episodic Residual codes; unclassified (1 source) At risk of polypharmacy; Translations: [Other specified personal risk factors, not elsewhere classified] 09-29-2023 Episodic Residual codes; unclassified (8 sources) Medication refused; Translations: [Immunization not carried out because of patient refusal] 03-16-2025 Episodic Residual codes; unclassified (8 sources) Postmenopausal state; Translations: [Asymptomatic menopausal state] 03-16-2025 Episodic Residual codes; unclassified (1 source) Asymptomatic menopausal state; Translations: [Asymptomatic menopausal state] Onset: 5 Episodic Retinal detachments; defects; vascular occlusion; and retinopathy (1 source) Hypertensive retinopathy; Translations: [Hypertensive retinopathy, bilateral] Chronic Spondylosis; intervertebral disc disorders; other back problems (20 sources) Degeneration of lumbosacral intervertebral disc; Translations: [Other intervertebral disc degeneration, lumbosacral region] Onset: 3 08-19-2013 Chronic Spondylosis; intervertebral disc disorders; other back problems (20 sources) Neck pain; Translations: [Cervicalgia] Onset: 6 11-17-2015 Episodic Substance-related disorders (20 sources) Cigarette smoker ; Translations: [Nicotine dependence, cigarettes, uncomplicated] Onset: 5 Chronic Syncope (5 sources) Syncope and collapse; Translations: [Syncope and collapse] Onset: 3 09-10-2023 Episodic Thyroid disorders (12 sources) Non-toxic multinodular goiter; Translations: [Nontoxic multinodular goiter] Onset: 5 02-23-2024 Chronic Unclassified (12 sources) Pelvic pain in female; Translations: [R10.2 - Pelvic and perineal pain] Unclassified (6 sources) R07.9 - Chest pain, unspecified Unclassified (1 source) Cough, unspecified; Translations: [Cough, unspecified] Onset: 5 Past or Other Problems Problem Classification Problem Date Documented Da te Episodic/Chronic Allergic reactions (20 sources) Solar degeneration; Translations: [Other skin changes due to chronic exposure to nonionizing radiation] Onset: 12-09-2012 12-09-2012 Episodic Conditions associated with dizziness or vertigo (20 sources) Dizziness and giddiness; Translations: [Dizziness and giddiness] Onset: 08-24-2012 Resolved: 12-05-2017 12-05-2017 Episodic Deficiency and other anemia (1 source) Other iron deficiency anemias; Translations: [Iron deficiency anemia secondary to inadequate dietary iron intake] Onset: 06-02-2024 Episodic Delirium, dementia, and amnestic and other cognitive disorders (20 sources) Postconcussion syndrome; Translations: [Postconcussional syndrome] Onset: 10-30-2015 Resolved: 01-24-2022 01-24-2022 Chronic Diverticulosis and diverticulitis (20 sources) Diverticulitis; Translations: [Diverticulitis of intestine, part unspecified, without perforation or abscess without bleeding] Resolved: 11-28-2017 11-28-2017 Chronic Neoplasms of unspecified nature or uncertain behavior (20 sources) Neoplasm of uncertain behavior of skin; Translations: [Neoplasm of uncertain behavior of skin] Onset: 12-09-2012 Resolved: 11-28-2017 11-28-2017 Episodic Other and unspecified benign neoplasm (20 sources) Dysplastic nevus of trunk; Translations: [Melanocytic nevi of trunk] Onset: 12-09-2012 Resolved: 12-05-2017 12-09-2012 Episodic Other and unspecified benign neoplasm (20 sources) Melanocytic nevus of face; Translations: [Melanocytic nevi of unspecified part of face] Onset: 12-09-2012 12-09-2012 Episodic Other and unspecified benign neoplasm (20 sources) Dermatofibroma; Translations: [Other benign neoplasm of skin of right lower limb, including hip] Onset: 12-09-2012 12-09-2012 Episodic Other and unspecified benign neoplasm (20 sources) Melanocytic nevi of unspecified part of face; Translations: [Benign neoplasm of skin of other and unspecified parts of face] Onset: 12-09-2012 12-09-2012 Episodic Other bone disease and musculoskeletal deformities (20 sources) Postmenopausal osteopenia; Translations: [Other specified disorders of bone density and structure, unspecified site] Onset: 08-17-2022 08-17-2022 Episodic Other circulatory disease (20 sources) Low blood pressure; Translations: [Hypotension, unspecified] Onset: 05-15-2015 Resolved: 07-19-2015 07-19-2015 Episodic Other connective tissue disease (20 sources) History of cervical spine fusion; Translations: [Arthrodesis status] Onset: 05-15-2015 Resolved: 12-05-2017 12-05-2017 Episodic Other gastrointestinal disorders (20 sources) Difficulty swallowing pills; Translations: [Dysphagia, unspecified] Onset: 05-17-2015 Resolved: 01-24-2022 01-24-2022 Episodic Other nervous system disorders (20 sources) Paresthesia of lower extremity; Translations: [Anesthesia of skin] Onset: 04-20-2019 Resolved: 03-26-2021 03-26-2021 Episodic Other nervous system disorders (20 sources) Paresthesia; Translations: [Paresthesia of skin] Onset: 04-20-2019 Resolved: 03-26-2021 03-26-2021 Episodic Other non-epithelial cancer of skin (20 sources) 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; Translations: [Squamous cell carcinoma of skin of nose] Onset: 06-24-2016 06-24-2016 Episodic Other skin disorders (20 sources) Actinic keratosis; Translations: [Actinic keratosis] Onset: 12-09-2012 12-09-2012 Episodic Other skin disorders (20 sources) Seborrheic keratosis; Translations: [Other seborrheic keratosis] Onset: 12-09-2012 12-09-2012 Episodic Other skin disorders (20 sources) Solar lentigo; Translations: [Other melanin hyperpigmentation] Onset: 12-09-2012 06-22-2013 Episodic Other skin disorders (20 sources) Inflamed seborrheic keratosis; Translations: [Inflamed seborrheic keratosis] Onset: 12-09-2012 Resolved: 12-05-2017 12-05-2017 Episodic Other upper respiratory infections (2 sources) Sore throat symptom; Translations: [Acute pharyngitis, unspecified] Onset: 10-26-2024 09-10-2024 Episodic Peripheral and visceral atherosclerosis (20 sources) Peripheral vascular disease, unspecified; Translations: [Peripheral vascular disease, unspecified] Onset: 03-10-2017 Resolved: 03-30-2023 03-10-2017 Chronic Residual codes; unclassified (20 sources) Tobacco user; Translations: [Tobacco use] Onset: 03-28-2017 03-28-2017 Episodic Residual codes; unclassified (20 sources) Family history of polyp of colon; Translations: [Family history of colonic polyps] Onset: 11-25-2017 11-25-2017 Episodic Residual codes; unclassified (20 sources) Amnesia; Translations: [Other amnesia] Onset: 10-30-2015 Resolved: 01-24-2022 01-24-2022 Episodic Residual codes; unclassified (20 sources) Family history of ischemic heart disease; Translations: [Family history of ischemic heart disease and other diseases of the circulatory system] Onset: 03-14-2016 Resolved: 12-05-2017 12-05-2017 Episodic Unclassified (1 source) Family history of colonic polyps; Translations: [Family history of colonic polyps] Onset: 11-25-2017 Episodic Results Test Name Value Interpretation Reference Range Facility Office Visit Reporton 2024 Office Visit Report [facility] [address] [place] [address] OFFICE VISIT Date of Service: 06/07/25 MR#: [id number] Acct: [id number] Patient: ЮЛИЯ PRASAD Rep #: [id number] : 1955 Provider: ALMA NURSE Age/Sex: 69/F Location[place] [facility] [place] Status: Signed Intake Vital Signs 05/16/25 14:21 Height 5 ft 1 in Weight: 132 lb BMI 24.9 BP 134/82 H Blood Pressure Location Lt brachial Position Sitting Respiration 18 Pulse 75 Pulse Source Monitor Pulse Oximetry (%) 95 Oxygen Delivery Method room air Intake Visit Reasons: PROLIA-$0 Allergies ciprofloxacin (From Cipro) Allergy (Verified 05/16/25 14:21) Rash ciprofloxacin HCl (From Cipro) Allergy (Verified 05/16/25 14:21) Rash clindamycin Allergy (Verified 05/16/25 14:21) throat swelling-see comment section fluoxetine HCl (From Prozac) Allergy (Verified 05/16/25 14:21) Rash metronidazole Allergy (Verified 05/16/25 14:21) Anaphylaxis Penicillins Allergy (Verified 05/16/25 14:21) Rash Sulfa (Sulfonamide Antibiotics) Allergy (Verified 05/16/25 14:21) Rash adhesive Adverse Reaction (Verified 05/16/25 14:21) redness with bandaids amoxicillin trihydrate (From Augmentin) Adverse Reaction (Verified 05/16/25 14:21) thrush/yeast infection potassium clavulanate (From Augmentin) Adverse Reaction (Verified 05/16/25 14:21) thrush/yeast infection Have you fallen in the past year?: No Office Procedures Injections Is this a patient provided medication?: Yes Office Meds Prolia 60 mg/mL subcutaneous syringe Performing Provider: Dennis Chow MD Performing Location: [facility] Administered by: Evelia Yang on 06/07/25 13:51 Dose Route Admin Location Dispensed Lot Number Expiration Date ND Man ufacturer 60 mg subcut right upper arm 1 mL [id number] 11/09/27 00377-132-81 AMGEN Comments: Pt tolerated well. No s/sx adverse reactions. Assessment and Plan Assessment and Plan (1) Osteoporosis: Status: Inactive Qualifiers: Osteoporosis type: age-related Presence of current pathological fracture: without current pathological fracture Qualified Code(s): M81.0 - Age-related osteoporosis without current pathological fracture Orders: Orders Prolia Injection Today M81.0 - Age-related osteoporosis without current pathological fracture Clinical Quality Measures Falls Risk Screening/Assistive Devices Have you fallen in the past year?: No 06/07/25 1650 Date Dennis Chow MD Cosigner Signature: Date (if applicable) CC: Normal [facility] Cardiology Visit Reporton Cardiology Visit Report [facility] [address] [place], [place] [id number] OFFICE VISIT Date of Service: 05/16/25 MR#: [id number] Acct: [id number] Name: ЮЛИЯ PRASAD Rep #: [id number] : 1955 Provider: Dr. Dao cervantes MD Age/Sex: 69/F Location: [facility] [place] Status: Signed HPI HPI History of Present Illness Details: Patient is a pleasant 69-year-old white female who comes in today for new patient visit complaining of chest discomfort and palpitations. Patient reports that for about the last 6 months she has been feeling palpitations associated with the lightheadedness and described as fluttering's. They occur almost daily they are not predictable. Except that she tends to notice some in the morning when she first gets up. The patient is also noted left-sided chest discomfort with and without the palpitation she described this is a dull ache and occurs while she is sitting can occur with activity last about 5 minutes she takes a deep breath and it makes it more intense. This has been going on for about 6 months it really has not changed in intensity or severity. The patient also has been under significant financial stressors for the last 6 months she has not changed any meds to her knowledge. The patient has a significant cardiac risk factor profile. Patient has a strong family history of coronary disease she is diabetic she is hyperlipidemic and continues to smoke. She is not hypertensive. Patient's last hemoglobin A1c was 6.7 she does have a history of smoking which she continues to smoke she has a history of vasovagal syncope related to her blood pressure medicine she believes in the past. She has had no recurrent syncope. Patient did have a pharmacologic stress test done July 2023 she was not having any symptoms at that time she thinks it was done because she was diabetic. The patient did complain of some left leg discomfort and weakness of her right lower extremity. She apparently was evaluated by orthopedics at the [facility] in the past they did not find anything of significance but she reports they did not examine her hips either. The patient denies anything that sounds like claudication. Patient's last lipids I have from April 2024 were at goal. ECG done in the office today shows a normal sinus rhythm at 76 bpm and is normal. 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 Required: No Accompanied by: Self Is patient in pain?: No Allergies ciprofloxacin (From Cipro) Allergy (Verified 05/16/25 14:21) Rash ciprofloxacin HCl (From Cipro) Allergy (Verified 05/16/25 14:21) Rash clindamycin Allergy (Verified 05/16/25 14:21) throat swelling-see comment section fluoxetine HCl (From Prozac) Allergy (Verified 05/16/25 14:21) Rash metronidazole Allergy (Verified 05/16/25 14:21) Anaphylaxis Penicillins Allergy (Verified 05/16/25 14:21) Rash Sulfa (Sulfonamide Antibiotics) Allergy (Verified 05/16/25 14:21) Rash adhesive Adverse Reaction (Verified 05/16/25 14:21) redness with bandaids amoxicillin trihydrate (From Augmentin) Adverse Reaction (Verified 05/16/25 14:21) thrush/yeast infection potassium clavulanate (From Augmentin) Adverse Reaction (Verified 05/16/25 14:21) thrush/yeast infection Medications ???Medication ???Instructions ???Recorded ???Confirmed ???Type famotidine 20 mg tablet 20 mg PO QDAY 11/08/24 05/16/25 Hi story fluticasone 250 mcg-salmeterol 50 1 inh inhalation BID 11/08/2406/03 History mcg/dose blistr powdr for inhalation aspirin 81 mg tablet,delayed 81 mg PO QDAY 02/02/25 05/16/25 Hi story release (Adult Low Dose Aspirin) fluorouracil 5 % topical cream 1 applic topical BID 02/02/25 07/06/03 History clobetasol 0.05 % topical cream 1 g topical QDAY PRN rash #15 gram s 03/16/25 05/16/25 Rx denosumab 60 mg/mL subcutaneous 60 mg subcut [id number] #1 mL Rx syringe (Prolia) cholecalciferol (vitamin D3) 25 1,000 unit PO DAILY #90 caps 04/2605/16/25 Rx mcg (1,000 unit) capsule coenzyme Q10 100 mg capsule (Co 200 mg (2 x 100 mg) PO DAILY 04/2605/16/25 Rx Q-10) supplement #180 caps furosemide 20 mg tablet 20 mg PO DAILY #90 tabs 04/26/25 0 05/16/25 Rx meloxicam 15 mg tablet 15 mg PO QDAY #90 tabs 04/26/25 Rx metformin 500 mg tablet 500 mg PO BID #180 tabs 04/26/25 0 05/16/25 Rx montelukast 10 mg ta (more content not included)... Normal [facility] Gastroenterology Visit Repor ton 04-07-2025 Gastroenterology Visit Report [facility] [address] [place] [address] OFFICE VISIT Date of Service: 04/07/25 MR#: [id number] Acct: [id number] Name: ЮЛИЯ PRASAD Rep #: [id number] : 1955 Provider: LAZARO Garcia Age/Sex: 69/F Location[place] [facility] [place] Status: Signed Intake Vital Signs 04/06/25 07:37 Height 5 ft 1 in Weight: 130 lb BMI 24.5 BP 114/71 Blood Pressure Location Rt brachial Position Sitting Respiration 18 Pulse 74 Pulse Source Monitor Temp 97.3 F L Pulse Oximetry (%) 98 Oxygen Delivery Method room air Intake Visit Reasons: Hospital FU Chief Complaint: GERD Allergies ciprofloxacin (From Cipro) Allergy (Verified 04/06/25 10:16) Rash ciprofloxacin HCl (From Cipro) Allergy (Verified 04/06/25 10:16) Rash clindamycin Allergy (Verified 04/06/25 10:16) throat swelling-see comment section fluoxetine HCl (From Prozac) Allergy (Verified 04/06/25 10:16) Rash metronidazole Allergy (Verified 04/06/25 10:16) Anaphylaxis Penicillins Allergy (Verified 04/06/25 10:16) Rash Sulfa (Sulfonamide Antibiotics) Allergy (Verified 04/06/25 10:16) Rash adhesive Adverse Reaction (Verified 04/06/25 10:16) redness with bandaids amoxicillin trihydrate (From Augmentin) Adverse Reaction (Verified 04/06/25 10:16) thrush/yeast infection potassium clavulanate (From Augmentin) Adverse Reaction (Verified 04/06/25 10:16) thrush/yeast infection Medications ???Medication ???Instructions ???Recorded ???Confirmed ???Type coenzyme Q10 100 mg capsule (Co 100 mg PO DAILY supplement 6 04/06/25 History Q-10) montelukast 10 mg tablet 10 mg PO QHS allergies 10/06/17 History trazodone 100 mg tablet 100 mg PO QHS sleep 10/06/1704/06 History cholecalciferol (vitamin D3) 25 1,000 unit PO DAILY 08/12/1904/06 History mcg (1,000 unit) capsule furosemide 20 mg tablet 20 mg PO DAILY 08/12/19 04/06/25 H istory pantoprazole 40 mg tablet,delayed 40 mg PO DAILY 08/12/19 04/07/25 History release albuterol sulfate 90 mcg/actuation 1 inh inhalation ONCE 11/08/24 0 04/06/25 History aerosol inhaler famotidine 20 mg tablet 20 mg PO QDAY 11/08/24 04/07/25 Hi story fluticasone 250 mcg-salmeterol 50 1 inh inhalation BID 11/08/24 History mcg/dose blistr powdr for inhalation meloxicam 15 mg tablet 15 mg PO QDAY 11/08/24 04/06/25 Hi story rosuvastatin 20 mg tablet 20 mg PO QDAY 11/08/24 04/06/25 Hi story aspirin 81 mg tablet,delayed 81 mg PO QDAY 02/02/25 04/06/25 Hi story release (Adult Low Dose Aspirin) dulaglutide 0.75 mg/0.5 mL 1.5 mg subcut MO 02/02/25 04/06/25 History subcutaneous pen injector (Trulicity) fluorouracil 5 % topical cream 1 applic topical BID 02/02/25 05/07/04 History metformin 500 mg tablet 500 mg PO BID 02/02/25 04/07/25 Hi story clobetasol 0.05 % topical cream 1 g topical QDAY PRN rash #15 gram s 03/16/25 04/06/25 Rx ondansetron 4 mg disintegrating 4 mg PO Q8H PRN PRN Nausea #30 tab s 03/17/25 04/07/25 Rx tablet omeprazole 40 mg capsule,delayed 40 mg PO BID #90 caps 04/07/25 Rx release Have you fallen in the past year?: No Nurse's Note: OV 04/07/25 Pt here for f/u and reports nausea, constipation, gas, bloating and heartburn. Pt takes famotidine, pantoprazole and zofran daily. PFSH Medical History Thyroid nodule Nonhealing surgical wound Ulcer of left lower extremity with fat layer exposed Wears glasses Cancer Fatty liver High cholesterol Restless legs Syncope History of hiatal hernia History of diverticulitis Smoker History of stress test Dysphagia Depression Anxiety Surgical History History of bladder surgery H/O cataract extraction S/P thyroid biopsy Hx of squamous cell carcinoma excision History of excision of mass (10/13/17) History of esophagogastroduodenosco py (EGD) History of colonoscopy History of tonsillectomy History of cholecystectomy History of fusion of cervical spine ( 2003) H/O: hysterectomy Family History Sister Colon polyps Hypertension Asthma Depression Melanoma Thyroid disorder Brother Colon polyps Parkinson disease Myocardial infarction Heart disease Mother Colon polyps Colon cancer COPD (chronic obstructive pulmonary disease) Arthritis Father Colon polyps Heart disease Myocardial infarction Grandmother Alcoholism Grandfather Diabetes Social History household members: none current occupational 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 Normal [facility] Pulmonary Visit Reporton Pulmonary Visit Report [facility] Pulmonary Medicine of [address] [place] [address] OFFICE VISIT Date of Service: 04/06/25 MR#: [id number] Acct: [id number] Name: ЮЛИЯ PRASAD Rep #: [id number] : 1955 Provider: Rachel Madden NP Age/Sex: 69/F Location: [facility] [place] Status: Signed Assessment and Plan Assessment and Plan (1) Asthma: Qualifiers: Asthma severity: mild Asthma persistence: persistent Asthma complication type: uncomplicated Qualified Code(s): J45.30 - Mild persistent asthma, uncomplicated Plan: Asthma is suboptimally controlled likely due to inconsistent use of daily maintenance inhaler and suboptimal control of GERD along with active allergy symptoms. This could be contributing to the respiratory symptoms that she has expressed today along with the expiratory wheeze with forced expiration and cough. Her NIOX is mildly elevated as well today but not at a point where she requires oral prednisone. I have asked for her to utilize Advair 250 mcg, 1 puff twice daily in a consistent manner until follow-up at this practice. I would recommend repeating the NIOX on follow- up. Notify this practice for worsening respiratory symptoms. I have asked for her to return back to ENT for control of URI symptoms. I am concerned that her GERD is not fully controlled and this could be contributing to suboptimal control of asthma, discussed at length with patient today. I have recommended that she follow-up with GI due to failure of current therapy for control of GERD. (2) Smoking greater than 30 pack years: Status: Acute Plan: Smoking cessation is warranted at this time. The patient understands that this practice is willing to assist her when she is ready for complete cessation. (3) Pulmonary nodules: Status: Acute Plan: LDCT from 03/19/2022 does show the 4.3 noncalcified nodule in the right lower lobe and the 5 mm noncalcified nodule in the right middle lobe. The third nodule identified on the recent CT scan is a calcified granuloma. I have recommended that since these nodules have been followed for over 2 years that the patient undergo a LDCT now in 12 months. Orders: Orders Simple Pulmonary Exercise Test 04/01/25 J45.909 - Unspecified asthma, uncomplicated, R06.02 - Shortness of breath Low Dose CT Lung Screening 03/10/26 F17.210 - Nicotine dependence, cigarettes, uncomplicated NIOX Today R05.9 - Cough, unspecified Referrals Cardiology R07.9 - Chest pain, unspecified Plan A referral to cardiology was placed today due to the chest pain that patient is experiencing, per patient request. This could be multifactorial as she does have suboptimal control of GERD. She does have coronary artery calcifications present on CT imaging with a known history of hyperlipidemia and is utilizing a statin. Her chest pain could also be due to suboptimal control of asthma for which I have asked for her to compliantly use her daily maintenance inhaler. Plan Details Additional Comments: A walk test is listed above but should not be a part of her office visit note for today. Follow Up: 3 Months (LMR) HPI HPI Comments Details: Patient is a 69-year-old female who presents today to follow-up regarding recent testing. She has a history of asthma and smoking. She is ambulatory and currently on room air. She has previously completed spirometry from [facility] on February 28, 2022 which showed normal spirometry with minimal small airway obstruction. She also completed a low-dose screening lung CT on March 19, 2022 which showed lungs to be mildly hyperexpanded. Interstitial changes were noted in both lung roberts without organized infiltrate. There was a noncalcified nodule in the right lower lobe on image 132 measuring 4.3 mm and a pleural-based nodule in the right middle lobe on image 161 measuring 5.2 mm. She reports a cough that is present with clear to yellowish phlegm. She denies shortness of breath and wheeze. She denies chest pain and chest tightness. She has not required use of albuterol, this makes her light headed and dizzy. She is not consistently using her daily inhaler. She reports left sided chest pain that comes and goes. Level of exertion does not impact this pain. She does report a nuclear stress test from 2022 was performed at [facility], I do not have these records available to review today. She denies fever, chills, body aches. Her asthma is compromised with a history of allergies, never formally treated with immunotherapy. She has not seen ENT for a year and still reports suboptimal control of symptoms. She had a colonoscopy and EGD and had her esophageus stretched but does not have a follow-up scheduled. The patient indicates that she does not have frequent bronchitis or pneumonia. She continues to smoke 10 to 15 cigarettes/day for the last 50 years. She is not yet ready (more content not included)... Normal [facility] 6 Minute Walk Teston 025 [address] 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 CLI Location: [facility] Date: Sex: F C PSN 6 Minute Walk Test 6 Minute Walk Test 6 Minute Walk Test: 6 Minute Walk Test PSN:6-Minute Walk Test Start: 03/28/25 13:36 Freq: Status: Discharge Protocol: [id number] Document 03/28/25 13:52 [facility] (Rec: 03/28/25 13:56 AMH [id number]) 6 Minute Walk Test Date Performed 03/28/25 Time Performed 12:30 Height 5 ft 1 in Weight: 135 lb Weight in Pounds 135.[address]: Rachel Mdaden Assistive device None used: Pre-test Oxygen Delivery Room Air Method Pulse Ox (%) 97 Pulse Rate (60-100 89 beats/min) Dyspnea Mio Scale ( 0 0-10) Exertion Mio Scale 8 (6-20) 1st minute Oxygen Delivery Room Air Method Pulse Ox (%) 96 Pulse Rate (60-100 87 beats/min) Dyspnea Mio Scale ( 1 0-10) Number of Rests 0 Taken 2nd minute Oxygen Delivery Room Air Method Pulse Ox (%) 98 Pulse Rate (60-100 94 beats/min) Dyspnea Mio Scale ( 2 0-10) Number of Rests 0 Taken Reported Symptoms Increased Work of Breathing 3rd minute Oxygen Delivery Room Air Method Pulse Ox (%) 98 Pulse Rate (60-100 92 beats/min) Dyspnea Mio Scale ( 3 0-10) Number of Rests 0 Taken Reported Symptoms Increased Work of Breathing 4th minute Oxygen Delivery Room Air Method Pulse Ox (%) 97 Pulse Rate (60-100 93 beats/min) Dyspnea Mio Scale ( 3 0-10) Number of Rests 0 Taken Reported Symptoms Increased Work of Breathing 5th minute Oxygen Delivery Room Air Method Pulse Ox (%) 97 Pulse Rate (60-100 97 beats/min) Dyspnea Mio Scale ( 3 0-10) Number of Rests 0 Taken Reported Symptoms Increased Work of Breathing 6th minute Oxygen Delivery Room Air Method Pulse Ox (%) 97 Pulse Rate (60-100 96 beats/min) Dyspnea Mio Scale ( 3 0-10) Number of Rests 0 Taken Reported Symptoms Increased Work of Breathing Post-test Oxygen Delivery Room Air Method Pulse Ox (%) 98 Pulse Rate (60-100 76 beats/min) Dyspnea Mio Scale ( 1 0-10) Exertion Mio Scale 11 (6-20) Full Laps Walked 17 Partial Lap, Number 31 of Tiles Walked Total Distance 1034 Walked (ft) Interpretation Interpretation: The patient ambulated 1034 feet over the course of 6 minutes beginning on room air without assistive devices. Pretesting oxygen saturation was noted to be 97% on room air. With ambulation, the sobia oxygen saturation was 96%. There was no significant exertional oxygen desaturation. Recommendations Recommendations: There is no indication for the use of supplemental oxygen at this time. 04/04/25716 Date Mitch Ruiz DO CC: Date Dictated: 04/04/25715 Date Transcribed: 04/04/25715 Promotional Demonstrator: Dr. Mitch Ruiz DO Signed Normal [facility] Bone density reportOrdered B y: Pavel Carrero on 04-01-2025 Study report Skeletal system DXA [facility] Imaging Services [address] [place] [address] Dexa Bone Density Study MR#: [id number] Acct: [id number] Name: ЮЛИЯ PRASAD Rep #: [id number] : 1955 F 69 From: Papa Carrero MD PCP: Dr. Dennis Chow MD Status: REG CLI Study:Dexa Bone Density Study Date of Exam: 03/31/25 Exam# [id number] Ordering Dr: Dennis Chow MD PROCEDURE: DEXA BONE DENSITY STUDY 03/31/2025 REASON FOR EXAM: SCREENING F, age 69 y/o . Postmenopausal. TECHNIQUE: DXA scan of sites with data reported below. REFERENCE LINKS: ISCD Adult Positions COMPARISON: None FINDINGS: BMD and T-SCORES Lumbar spine: 0.882 g/cm2, T-score -2.0 Levels: L1 through L4 Left femoral neck: 0.608 g/cm2, T-score -2.2 Femoral neck comparison data not recommended for monitoring change. Left total hip: 0.671 g/cm2, T-score -2.2 Right femoral neck: 0.512 g/cm2, T-score -3.0 Femoral neck comparison data not recommended for monitoring change. Right total hip: 0.649 g/cm2, T-score -2.4 The World Health Organization has defined the following categories based on bonedensity: Normal bone density: T-score equal to or greater than -1.0 Osteopenia: T-score between -1.0 and -2.5 Osteoporosis: T-score equal to or less than -2.5 The patient does meet the pharmacological treatment recommendations for prevention of osteoporosis. BD/Dexa Bone Density Study IMPRESSION: OSTEOPOROSIS. Recommend follow-up as clinically warranted. Reading Location: [place] [address] CC: Dr. Dennis Chow MD ~ Promotional Demonstrator: Signed [facility] Dexa Bone Density Studyon Dexa Bone Density Study [facility] Imaging Services [address] [place] [address] [id number] Dexa Bone Density Study MR#: [id number] Acct: [id number] Name: ЮЛИЯ PRASAD Rep #: [id number] : 1955 F 69 From: Pavel retana MD PCP: Dr. Dennis Chow MD Status: [facility] Study: Dexa Bone Density Study Date of Exam: 03/31/25 Exam# [id number] Ordering Dr: Dennis Chow MD PROCEDURE: DEXA BONE DENSITY STUDY 03/31/2025 REASON FOR EXAM: SCREENING F, age 69 y/o . Postmenopausal. TECHNIQUE: DXA scan of sites with data reported below. REFERENCE LINKS: ISCD Adult Positions COMPARISON: None FINDINGS: BMD and T-SCORES Lumbar spine: 0.882 g/cm2, T-score -2.0 Levels: L1 through L4 Left femoral neck: 0.608 g/cm2, T-score -2.2 Femoral neck comparison data not recommended for monitoring change. Left total hip: 0.671 g/cm2, T-score -2.2 Right femoral neck: 0.512 g/cm2, T-score -3.0 Femoral neck comparison data not recommended for monitoring change. Right total hip: 0.649 g/cm2, T-score -2.4 The World Health Organization has defined the following categories based on bone density: Normal bone density: T-score equal to or greater than -1.0 Osteopenia: T-score between -1.0 and -2.5 Osteoporosis: T-score equal to or less than -2.5 The patient does meet the pharmacological treatment recommendations for prevention of osteoporosis. BD/Dexa Bone Density Study IMPRESSION: OSTEOPOROSIS. Recommend follow-up as clinically warranted. Reading Location: [place] [address] CC: Dr. Dennis Chow MD Promotional Demonstrator: Signed Normal [facility] Kidney and Bladderon 025 Kidney and Bladder [facility] Imaging Services [address] [place], [place] [address] Kidney and Bladder MR#: [id number] Acct: [id number] Name: ЮЛИЯ PRASAD Rep #: [id number] : 1955 F 69 From: Pavel retana MD PCP: Dr. Dennis Chow MD Status: REG CLI Study: Kidney and Bladder Date of Exam: 03/22/25 Exam# [id number] Ordering Dr: Dennis Chow MD PROCEDURE: KIDNEY AND BLADDER 03/22/2025 REASON FOR EXAM: LEFT RENAL CYST TECHNIQUE: Bilateral renal ultrasound. COMPARISON: None FINDINGS: RIGHT Kidney Size: 11.2 cm x 5 cm x 5.8 cm Volume: 170 mL Cortical Thickness (if discernible): 1.7 (>6mm is normal) There is a 6 mm x 5 mm x 2 mm intra parenchymal calculus. Extrarenal pelvis. LEFT Kidney Size: 11.2 cm x 4.7 cm x 5.4 cm Volume: 148.4 mL Cortical thickness: 1.8 cm There is a 2.5 cm x 2.8 cm x 2.6 cm cyst in the upper pole. There is a 5 mm x 3 mm x 4 mm nonobstructive intrarenal calculus. Bladder: Prevoid volume: 143.6 postvoid volume: 138.8 US/Kidney and Bladder IMPRESSION: Small bilateral nonobstructive intrarenal calculi. Left renal cyst. Postvoid residual. Reading Location: [id number] CC: Dr. Dennis Chow MD Promotional Demonstrator: Signed Normal [facility] Thyroidon 03-22-2025 Thyroid [facility] Imaging Services [address] [place] [address] Thyroid MR#: [id number] Acct: [id number] Name: ЮЛИЯ PRASAD Rep #: [id number] : 1955 F 69 From: Pavel retana MD PCP: Dr. Dennis Chow MD Status: REG CLI Study: Thyroid Date of Exam: 03/22/25 Exam# [id number] Ordering Dr: Dennis Chow MD PROCEDURE: THYROID 03/22/2025 REASON FOR EXAM: NODULE FOLLOW UP TECHNIQUE: High-frequency thyroid ultrasound, including grayscale and color-flow images. REFERENCE LINKS: TI-RADS Chart: [email or web address]/ ti-rads TI-RADS Calculator Tool with Reference Images: [email or web address]/body -imaging/tirads-calculat or/ COMPARISON: Comparison is made with prior study dated January 08, 2024. FINDINGS: Right thyroid lobe size: 3.8 cm x 1.9 cm x 2.5 cm Left thyroid lobe size: 4.2 cm x 1.4 cm x 2.5 cm Isthmus: 0.31 cm Background parenchymal echotexture is homogeneous. Nodules: . Lobe: Right, Location: Mid portion of the kidney, Size: 1.5 cm x 1.2 cm x 1 point 0 cm, Stability: Stable Composition: Mixed cystic and solid (+1) Echogenicity: Hypoechoic (+2) Margin: Ill-defined (+0) Shape: Wider than tall (+0) Echogenic Foci: None (+0) TI-RADS: <2 = TR 1 * 2 = TR 2 * 3 = TR 3 * 4-6 = TR 4 * >6 = TR 5 . Lobe: Left, Location: Lateral inferior pole, Size: 5 mm x 4 mm x 5 mm cm, Stability: Stable Composition: Cystic or mostly cystic (+0) Echogenicity: Anechoic (+0) Margin: Smooth (+0) Shape: Wider than tall (+0) Echogenic Foci: None (+0) TI-RADS: <2 = TR 1 * 2 = TR 2 * 3 = TR 3 * 4-6 = TR 4 * >6 = TR 5 US/Thyroid IMPRESSION: Stable examination. RECOMMENDATION: Based on most suspicious nodule. Nodule size = largest diameter Only evaluate nodule if =>5 mm. Growth > 20% in 2 dimensions = worsening. Follow up to 4 nodules. Recommend biopsy for no more than 2 nodules. Reading Location: [id number] CC: Dr. Dennis Chow MD Promotional Demonstrator: Signed Normal [facility] Chest without Contraston Chest without Contrast [facility] Imaging Services [address] [place] [id number] Chest without Contrast MR#: [id number] Acct: [id number] Name: ЮЛИЯ PRASAD Rep #: [id number] : 1955 F 69 From: Pavel retana MD PCP: Dr. Dennis Chow MD Status: REG CLI Study: Chest without Contrast Date of Exam: 03/17/25 Exam# [id number] Ordering Dr: Rachel Madden ORGAN TEACHER- C PROCEDURE: CHEST WITHOUT CONTRAST 03/17/2025 REASON FOR EXAM: MULTIPLE SUB CENTIMETER NODULES TECHNIQUE: Chest CT without contrast. Coronal and Sagittal reconstruction series were provided. One or more dose reduction techniques were used (e.g., Automated exposure control, adjustment of the mA and/or kV according to patient size, use of iterative reconstruction technique RADIATION DOSE SUMMARY: CTDlvol: 8.3 mGy DLP: 277.95 mGycm COMPARISON: Comparison is made with prior study dated March 19, 2022. FINDINGS: Hardware: None Lymph nodes: Small benign-appearing mediastinal lymph nodes. Heart and Vasculature: Coronary artery calcifications are noted. Atherosclerotic calcifications of the thoracic aorta. Thoracic aorta and pulmonary arteries have normal contours; noncontrast technique limits evaluation. Coronary Artery Calcifications: Present Lungs and Airways: Stable 2 mm calcified granuloma in the lateral aspect of the right upper lobe as seen on axial image number 29. Stable 4.3 mm noncalcified nodule in the posterior medial aspect of the superior segment of the right lower lobe as seen on axial image number 62. Stable 5 mm noncalcified nodule in the subpleural aspect of the right middle lobe as seen on axial image number 74 Pleura: Unremarkable Upper Abdomen: Questionable cyst in the upper pole of the left kidney. Bones: Degenerative changes of the thoracic spine. CT/Chest without Contrast IMPRESSION: Coronary artery calcification (CAC) is is present Stable examination. 12 month follow-up recommended. Reading Location: [id number] CC: Dr. Dennis Chow MD; Rachel Madden NP Promotional Demonstrator: Signed Normal [facility] Laboratory - Hematology and Cell countsOrdered By: Dennis Chow on 03-16-2025 HbA1c (Bld) [Mass fraction] 6.7 % High 4.2-6.3 [facility] Internal Medicine Office Vis iton 03-15-2025 Internal Medicine Office Visit [facility] [address] [place] [address] [place] [address] OFFICE VISIT Date of Service: 03/16/25 MR#: [id number] Acct: [id number] Name: ЮЛИЯ PRASAD Rep #: [id number] : 1955 Provider: Dr. Dennis corral MD Age/Sex: 69/F Location: [facility] Status: Signed Intake Vital Signs 02/05/23 18:16 03/09/25 10:04 03/16/25 12:53 Height 5 ft 2 in 5 ft 2 in 5 ft 2 in Weight: 135 lb BMI 24.7 BP 136/76 H Blood Pressure Location Rt brachial Position Sitting Respiration 16 Pulse 95 Pulse Source Monitor Temp 97.1 F L Temp Source Temporal Pulse Oximetry (%) 96 Oxygen Delivery Method room air Intake Visit Reasons: EST NEW PT - GASTRO PT Chief Complaint: establishing Aluminum Can Collector Required: No Accompanied by: Self Is patient in pain?: No Allergies ciprofloxacin (From Cipro) Allergy (Verified 03/16/25 12:42) Rash ciprofloxacin HCl (From Cipro) Allergy (Verified 03/16/25 12:42) Rash clindamycin Allergy (Verified 03/16/25 12:42) throat swelling-see comment section fluoxetine HCl (From Prozac) Allergy (Verified 03/16/25 12:42) Rash metronidazole Allergy (Verified 03/16/25 12:42) Anaphylaxis Penicillins Allergy (Verified 03/16/25 12:42) Rash Sulfa (Sulfonamide Antibiotics) Allergy (Verified 03/16/25 12:42) Rash adhesive Adverse Reaction (Verified 03/16/25 12:42) redness with bandaids amoxicillin trihydrate (From Augmentin) Adverse Reaction (Verified 03/16/25 12:42) thrush/yeast infection potassium clavulanate (From Augmentin) Adverse Reaction (Verified 03/16/25 12:42) thrush/yeast infection Medications ???Medication ???Instructions ???Recorded ???Confirmed ???Type coenzyme Q10 100 mg capsule (Co 100 mg PO DAILY supplement 6 03/16/25 History Q-10) montelukast 10 mg tablet 10 mg PO QHS allergies 10/06/17 History trazodone 100 mg tablet 100 mg PO QHS sleep 10/06/1703/16 History cholecalciferol (vitamin D3) 25 1,000 unit PO DAILY 08/12/1903/16 History mcg (1,000 unit) capsule furosemide 20 mg tablet 20 mg PO DAILY 08/12/19 03/16/25 H istory pantoprazole 40 mg tablet,delayed 40 mg PO DAILY 08/12/19 03/16/25 History release albuterol sulfate 90 mcg/actuation 1 inh inhalation ONCE 11/08/24 0 03/16/25 History aerosol inhaler famotidine 20 mg tablet 20 mg PO QDAY 11/08/24 03/16/25 Hi story fluticasone 250 mcg-salmeterol 50 1 inh inhalation BID 11/08/2406/03 History mcg/dose blistr powdr for inhalation meloxicam 15 mg tablet 15 mg PO QDAY 11/08/24 03/16/25 Hi story rosuvastatin 20 mg tablet 20 mg PO QDAY 11/08/24 03/16/25 Hi story aspirin 81 mg tablet,delayed 81 mg PO QDAY 02/02/25 03/16/25 Hi story release (Adult Low Dose Aspirin) dulaglutide 0.75 mg/0.5 mL 1.5 mg subcut MO 02/02/25 03/16/25 History subcutaneous pen injector (Trulicity) fluorouracil 5 % topical cream 1 applic topical BID 02/02/2506/03 History metformin 500 mg tablet 500 mg PO BID 02/02/25 03/16/25 Hi story clobetasol 0.05 % topical cream 1 g topical QDAY PRN rash #15 gram s 03/16/25 03/16/25 Rx ondansetron 4 mg disintegrating 4 mg PO Q8H PRN PRN Nausea #10 tab s 03/16/25 03/16/25 Rx tablet Have you fallen in the past year?: No PFSH Medical History (Updated 03/16/25 @ 15:[address] Dennis Chow MD) Thyroid nodule Nonhealing surgical wound Ulcer of left lower extremity with fat layer exposed Wears glasses Cancer Fatty liver High cholesterol Restless legs Syncope History of hiatal hernia History of diverticulitis Smoker History of stress test Dysphagia Depression Anxiety Surgical History (Updated 03/16/25 @ 13:[address] Dennis Chow MD) History of bladder surgery H/O cataract extraction S/P thyroid biopsy Hx of squamous cell carcinoma excision History of excision of mass (10/13/17) History of esophagogastroduodenosco py (EGD) History of colonoscopy History of tonsillectomy History of cholecystectomy History of fusion of cervical spine ( 2003) H/O: hysterectomy Family History Sister Colon polyps Hypertension Brother Colon polyps Parkinson disease Mother Colon polyps Colon cancer COPD (chronic obstructive pulmonary disease) Father Colon polyps Heart disease Social History (Updated 03/16/25 @ 13:[address] 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 Normal [facility] Bedside Glucoseon 03-10-2025 FINGERSTICK GLU 127 mg/dL High 74-106 [facility] Comment on above: Result Comment: DELFINO BRASHER OF PATIENT CARE PER NURSING PROTOCOL Performed By: #### L 501.080 ####[facility] [id number] [place], [address] Colonoscopy Reporton 025 Colonoscopy Report [facility] Medical Records Department [address] [place] [address] Colonoscopy Report MR#: [id number] Acct: [id number] Name: ЮЛИЯ PRASAD Rep #: [id number] : 1955 69 From: Pernell Philippe DO PCP: Care Physician,No Primary Status:[facility] Patient Name: Юлия Prasad Procedure Date: 03/09/2025 11:37 AM Date of : 1955 Age: 69 Procedure: Colonoscopy Indications: Generalized abdominal pain, Chronic diarrhea Providers: Pernell Philippe DO Medicines: Monitored Anesthesia Care Patient Profile: This is a 69 year old female. Refer to note in patient chart for documentation of history and physical. Patient has symptoms of acute epigastric abdominal pain and dysphagia with both liquids and solids. Last Colonoscopy: several years ago. Complications: No immediate complications. Procedure: Pre-Anesthesia Assessment: - Prior to the procedure, a History and Physical was performed, and patient medications and allergies were reviewed. The patient is competent. The risks and benefits of the procedure and the sedation options and risks were discussed with the patient. All questions were answered and informed consent was obtained. Patient identification and proposed procedure were verified by the physician in the pre-procedure area. Mental Status Examination: alert and oriented. Respiratory Examination: clear to auscultation. CV Examination: normal. Prophylactic Antibiotics: The patient does not require prophylactic antibiotics. Prior Anticoagulants: The patient has taken no anticoagulant or antiplatelet agents. ASA Grade Assessment: III - A patient with severe systemic disease. After reviewing the risks and benefits, the patient was deemed in satisfactory condition to undergo the procedure. The anesthesia plan was to use monitored anesthesia care (MAC). Immediately prior to administration of medications, the patient was re-assessed for adequacy to receive sedatives. The heart rate, respiratory rate, oxygen saturations, blood pressure, adequacy of pulmonary ventilation, and response to care were monitored throughout the procedure. The physical status of the patient was re-assessed after the procedure. After I obtained informed consent, the scope was passed under direct vision. Throughout the procedure, the patient's blood pressure, pulse, and oxygen saturations were monitored continuously. The pediatric colonoscope was introduced through the anus and advanced to the terminal ileum. The colonoscopy was performed without difficulty. The patient tolerated the procedure well. The quality of the bowel preparation was adequate. The terminal ileum, ileocecal valve, appendiceal orifice, and rectum were photographed. Scope In: 11:38:25 AM Scope Withdrawal Time 0 hours 8 minutes 30 seconds Scope Out: 11:53:28 AM Total Procedure Duration Time 0 hours 15 minutes 3 seconds Findings: The perianal and digital rectal examinations were normal. Multiple small-mouthed diverticula were found in the recto-sigmoid colon and sigmoid colon. An area of mildly congested mucosa was found in the entire colon. Biopsies were taken with a cold forceps for histology. Verification of patient identification for the specimen was done. Estimated blood loss was minimal. Impression: - Diverticulosis in the recto-sigmoid colon and in the sigmoid colon. - Congested mucosa in the entire examined colon. Biopsied. Recommendation: - Discharge patient to home. - Resume previous diet. - Continue present medications. - Await pathology results. - Repeat colonoscopy in 3 years for surveillance based on pathology results. Procedure Code(s): --- Professional --- 87322, Colonoscopy, flexible; with biopsy, single or multiple CPT copyright 2021 [employer]. All rights reserved. The codes documented in this report are preliminary and upon public health veterinarian review may be revised to meet current compliance requirements. Pernell Philippe DO 03/09/2025 12:06:22 PM This report has been signed electronically. Number of Addenda: 0 Note Initiated On: 03/09/2025 11:37 AM 03/09/25 1206 Date Pernell Morrisonignmaikel Signature: Date (if indicated) CC: No Primary Care Physician; Pernell Philippe DO Date Dictated: 03/09/25 1137 Date Transcribed: Promotional Demonstrator: ELEAZAR Signed Normal [facility] EGD Reporton 03-09-2025 EGD Report [facility] Medical Records Department [address] [place] [address] EGD Report MR#: [id number] Acct: [id number] Name: ЮЛИЯ PRASAD Rep #: [id number] : 1955 69 From: Pernell Philippe DO PCP: Care Physician,No Primary Status:[facility] Patient Name: Юлия Prasad Procedure Date: 03/09/2025 11:20 AM Date of : 1955 Age: 69 Procedure: Upper GI endoscopy Indications: Epigastric abdominal pain, Dysphagia Providers: Pernell Philippe DO Medicines: Monitored Anesthesia Care Patient Profile: This is a 69 year old female. Refer to note in patient chart for documentation of history and physical. Patient has symptoms of acute epigastric abdominal pain and dysphagia with both liquids and solids. Complications: No immediate complications. Procedure: Pre-Anesthesia Assessment: - Prior to the procedure, a History and Physical was performed, and patient medications and allergies were reviewed. The patient is competent. The risks and benefits of the procedure and the sedation options and risks were discussed with the patient. All questions were answered and informed consent was obtained. Patient identification and proposed procedure were verified by the physician in the pre-procedure area. Mental Status Examination: alert and oriented. Respiratory Examination: clear to auscultation. CV Examination: normal. Prophylactic Antibiotics: The patient does not require prophylactic antibiotics. Prior Anticoagulants: The patient has taken no anticoagulant or antiplatelet agents. ASA Grade Assessment: III - A patient with severe systemic disease. After reviewing the risks and benefits, the patient was deemed in satisfactory condition to undergo the procedure. The anesthesia plan was to use monitored anesthesia care (MAC). Immediately prior to administration of medications, the patient was re-assessed for adequacy to receive sedatives. The heart rate, respiratory rate, oxygen saturations, blood pressure, adequacy of pulmonary ventilation, and response to care were monitored throughout the procedure. The physical status of the patient was re-assessed after the procedure. After obtaining informed consent, the endoscope was passed under direct vision. Throughout the procedure, the patient's blood pressure, pulse, and oxygen saturations were monitored continuously. The pediatric colonoscope was introduced through the mouth, and advanced to the third part of the duodenum. Small bowel enteroscopy was deemed necessary. The upper GI endoscopy was accomplished without difficulty. The patient tolerated the procedure well. Scope In: 11:30:48 AM Scope Out: 11:35:52 AM Total Procedure Duration Time 0 hours 5 minutes 4 seconds Findings: Abnormal motility was noted in the esophagus. The cricopharyngeus was abnormal. There is a decrease in motility of the esophageal body. The distal esophagus/lower esophageal sphincter is spastic, but gives up passage to the endoscope. A guidewire was placed and the scope was withdrawn. Dilation was performed with a Savary dilator with no resistance at 54 Fr. The dilation site was examined and showed moderate mucosal disruption. Estimated blood loss was minimal. The Z-line was irregular and was found 41 cm from the incisors. Biopsies were taken with a cold forceps for histology. Verification of patient identification for the specimen was done. Estimated blood loss was minimal. A small hiatal hernia was present. Patchy mildly erythematous mucosa without bleeding was found in the gastric body. Biopsies were taken with a cold forceps for histology. Verification of patient identification for the specimen was done. Estimated blood loss was minimal. Biopsies were taken with a cold forceps for Helicobacter pylori testing. Verification of patient identification for the specimen was done. Estimated blood loss was minimal. No gross lesions were noted in the entire examined duodenum. Biopsies were taken with a cold forceps for histology. Verification of patient identification for the specimen was done. Estimated blood loss was minimal. Impression: - Abnormal esophageal motility, suspicious for presbyesophagus. Dilated. - Z-line irregular, 41 cm from the incisors. Biopsied. - Small hiatal hernia. - Erythematous mucosa in the gastric body. Biopsied. - No gross lesions in the entire examined duodenum. Biopsied. Recommendation: - Discharge patient to home. - Resume previous diet today. - Continue present medications. - Await pathology results. - Repeat upper endoscopy for surveillance based on pathology results. Pernell Philippe DO 03/09/2025 12:03:45 PM This report has been signed electronically. Number of Addenda: 0 Note Initiated On: 03/09/2025 11:20 AM 03/09/25 120 Date (more content not included)... Normal [facility] Glucose measurement at [facility] deOrdered By: Pernell Philippe on 03-09-2025 Glucose [Mass/Vol] 127 mg/dL High 74-106 [facility] Comment on above: MANAGEMENT OF PATIEN T CARE PER NURSING PROTOCOL MR/POSTOP.ANEon 03-09-2025 MR/POSTOP.[facility] Medical Records Department [address] [place] [address] Anesthesia Postop Eval I 03/09/251204 MR#: [id number] Acct: [id number] Name: ЮЛИЯ PRASAD Rep #: [id number] : 1955 69 From: Ankur Ram PCP: Care Physician,No Primary Status:[facility] Race: C Location: [place] [address] Anesthesia: Postop Eval I Current Vital Signs Temperature: 97.3 F Pulse Rate: 80 Blood Pressure: 88/51 Respiratory Rate: 16 Pulse Ox: 98 Oxygen Delivery Method: Room Air Assessment Airway patent: Yes Spontaneous unlabored respirations: Yes Mental status: Asleep nausea: No Vomiting: No Anesthesia Complication: No Fluid Hydration Crystalloid volume administer (ml): 600 Total IV fluid infused: 600 Progress Note Anesthesia document: Postop Eval 1 completed: Yes 03/09/25 120 Date Ankur Lama Signature: Date CC: Signed Normal [facility] MR/TZPHCHLF0yd 03-09-2025 MR/POSTOPAN2 [facility] Medical Records Department [address] [place] [address] Anesthesia Postop Eval II 03/09/25 1250 MR#: [id number] Acct: [id number] Name: ЮЛИЯ PRASAD Rep #: [id number] : 1955 69 From: Kee Cintron MD PCP: Care Physician,No Primary Status:[facility] Y Race: C Location: [place] Anesthesia Postop Eval I Sum Postop Eval Completion status Anesthesia document: Postop Eval 1 completed: Yes Anesthesia Postop Eval I Summary Anesthesia Postop Eval I Summary: Anesthesia Postop Eval I: Assessment Summary Airway patent Yes 03/09/25 12:06 [email or web address] Spontaneous unlabored Yes 03/09/25 12:06 [email or web address] respirations Mental status Asleep 03/09/25 12:06 [email or web address] nausea No 03/09/25 12:06 [email or web address] Vomiting No 03/09/25 12:06 [email or web address] Anesthesia Postop Eval I: Fluid Summary Crystalloid volume administer 600 03/09/25 12:06 [email or web address] (ml) Colloids volume administered ( ml) Blood Product volume administered (ml) Total IV fluid infused 600 03/09/25 12:06 [email or web address] Anesthesia Postop Eval I: Summary Notes Anesthesia Complication No 03/09/25 12:06 [email or web address] Anesthesia Complication Comment: Post-operative progress note Anesthesia: Postop Eval II Evaluation Mental status: Awake Pain Level: 0 nausea: No Vomiting: No 03/09/25 1250 Date Kee Lama Signature: Date CC: Signed Normal [facility] Surgery Specimen Level Santino 03-09-2025 Surgery Specimen Level IV Patient Age/Sex Location Account Attending Physician ЮЛИЯ PRASAD 69/F EN [id number] Pernell Philippe DO Specimen: [id number] Received: 03/09/25 Status: NATALYA Cervantes Num: [id number] Spec Type: EGD BIOPSY Subm Dr: Pernell Philippe, DO HEADER OPERATION: Colonoscopy, EGD, biopsy and dilatation PRE-OP DIAGNOSIS: Dysphagia, nausea/vomiting TISSUE SUBMITTED: Duodenum biopsy, Distal esophagus biopsy, Terminal ileum biopsy, Random colonic biopsy MICROSCOPIC DIAGNOSIS A. Small bowel, duodenum, biopsy: * Benign small bowel mucosa with no villous atrophy and prominent Shakeel's glands B. Esophagus, distal, biopsy: * Benign squamous epithelium * Oxyntocardiac type mucosa with mild chronic inflammation, negative for goblet cells C. Small bowel, terminal ileum, biopsy: * Small bowel mucosa with no pathologic change D. Colon, random, biopsy: * Colonic mucosa with no pathologic change MICROSCOPIC DESCRIPTION Slides are reviewed. GROSS DESCRIPTION A. Received in formalin in a container labeled with the patient's name, date of , and duodenum biopsy are 2 merrill-pink fragments of mucosal tissue each measuring 0.2 x 0.2 x 0.2 cm. Submitted in toto in A1. B. Received in formalin in a container labeled with the patient's name, date of , and distal esophagus biopsy is a 0.3 x 0.3 x 0.3 cm fragment of merrill-pink mucosal tissue. Submitted in toto in B1. C. Received in formalin in a container labeled with the patient's name, date of , and terminal ileum biopsy are 2 merrill-pink fragments of mucosal tissue each measuring 0.5 x 0.3 x 0.2 cm. Submitted in toto in C1. D. Received in formalin in a container labeled with the patient's name, date of , and random colonic biopsy are multiple merrill-pink fragments of mucosal tissue measuring 1.5 x 0.7 x 0.3 cm in aggregate. Submitted in toto in D1. [facility] 03-09-2025 CPT:94097s3 Patient Age/Sex Location Account Attending Physician ЮЛИЯ PRASAD 69/F EN [id number] Pernellhawa Philippe DO Signed (signature on file) Dr. Carly Patel DO 03/10/25 1156 [facility] Comment on above: Performed By: #### P SANDY ####[facility] [address] [place], [place], [address] CNOVSPon 02-18-2025 OVS Visit (SP) Office (HEMAWS) -------- ЮЛИЯ PRASAD ([id number]) 1955 F Date Time Provider Department 02/18/25 2:30 PM CRISTHIAN SMITH HEMAWS During your visit today, we recorded the following information about you: Temperature Pulse Blood pressure Weight 97.1 degrees 75/minute 146/82 61.9 kg Cristhian Smith DO 02/18/2025 2:49 PM Signed Hematologic problem(s): 1) IgG lambda MGUS. HPI: The patient is a 69-year-old female with a past medical history as outlined below. Establish with new PCP prior to referral here. Had lab work done through [facility] that showed an increase in serum globulin level. Protein electrophoresis was ordered and demonstrated a faint band in the gamma region suspicious for monoclonal gammopathy. Further workup was recommended. Was also found to have low serum iron and iron saturation. Chemistry significant for total serum protein of 8.2 g/dL. Albumin 4.5 g/dL. Serum creatinine 1.03 mg/dL. CBC demonstrated hemoglobin 12.8 g/dL. Total white count and platelet count normal. Spot urine negative for protein by dipstick analysis. Has had mild increase in serum protein in the past. No MP by electrophoresis on 3 occasions here. Per initial office visit: Fatigued. Pain in both tarango bones for about a month. Restless legs at night. Previous bone donor site from left iliac bone to do cervical graft hurts all the time. Bones in feet hurt. They feel weak, feel like feet don't want to work when I stand up. Hands hurt. ANDRES that fluctuates. Most recent EGD 03/14/2022 AG. Report in notes. C-scope 12/2017. Hyperplastic polyp. Was on oral iron years ago. Bad constipation. Presents for ongoing hematologic management. Interim history: Remains fatigued. Aches all over--weather related. 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 Hyperlipidemia Lung nodules PAD (peripheral artery disease) 03/10/2017 02/06/2022 PVR ank/jackson/toe bilat: RIGHT SIDE JITENDRA: 1.19; TBI: 0.84, WNL at rest LEFT SIDE: JITENDRA: 1.19; TBI: 0.96, WNL at rest Pulmonary HTN (HCC) 12/08/2017 mild Squamous cell skin cancer, nasal tip 06/24/2016 Tobacco abuse 03/28/2017 PAST SURGICAL HISTORY Procedure Laterality Date ADDTL NECK SPINE FUSION 09/2004 CHOLECYSTECTOMY 2000 COLONOSCOPY 1982 COLONOSCOPY FLX DX W/COLLJ SPEC WHEN PFRMD 09/01/2012 COLONOSCOPY FLX DX W/COLLJ SPEC WHEN PFRMD Done in [place] unable to obtain COLONOSCOPY FLX DX W/COLLJ SPEC WHEN PFRMD 11/17/2013 Colonoscopy COLONOSCOPY FLX DX W/COLLJ SPEC WHEN PFRMD 12/24/2017 Colonoscopy ESOPHAGOGASTRODUODENOSCO PY TRANSORAL DIAGNOSTIC 06/04/2013 EGD ESOPHAGOGASTRODUODENOSCO PY TRANSORAL DIAGNOSTIC 05/17/2015 EGD ESOPHAGOGASTRODUODENOSCO PY TRANSORAL DIAGNOSTIC 12/24/2017 EGD FNA (FINE NEEDLE ASPIRATION) 04/12/2024 right thyroid HYSTERECTOMY HX 1984 Pelvic pain AND DUB NEUROPLASTY AND/TRANSPOS MEDIAN NRV CARPAL TUNNE Bilateral 08/27/2018 Bilateral carpal tunnel release OOPHORECTOMY PARTIAL/TOTAL UNI/BI 1985 Bilateral PAST SURGICAL HISTORY OF removed tissue nose for SCC PAST SURGICAL HISTORY OF 10/13/2017 Excision nasal mass, Dr Juarez Harris REMOVE TONSIL AND ADENOI UNDER AGE 14 SLING OPER STRES INCONTINENCE 2001 ALLERGIES Allergen Reactions Metronidazole Anaphylaxis Adhesive Other: See Comments redness with bandaids Augmentin [Amoxicil* Other: See Comments Thrush/yeast infection Ciprofloxacin Rash Clindamycin Swelling throat swelling Penicillins Intolerance Yeast infections Prozac [Fluoxetine * Rash Sulfa Dyne Rash Current Outpatient Medications Medication Sig ondansetron orally disintegrating (ZOFRAN ODT) 4 mg disintegrating tablet Take 1 tablet by mouth every 8 hours as needed. metFORMIN (GLUCOPHAGE) 500 mg tablet Take 1 tablet by mouth two times a day with meals. dulaglutide (TRULICITY) 1.5 mg/0.5 mL pen injector Inject 1.5 mg subcutaneously one time a week. Inject once per week. Discard Pen After rosuvastatin (CRESTOR) 20 mg tablet Take 1 tablet by mouth daily at bedtime. clobetasol (TEMOVATE) 0.05 % cream apply to rash on legs and hands twice daily 5 days a week as needed. Apply twice daily as needed, up to 21 days per month. Avoid application to the face, armpits, groin. furosemide (LASIX) 20 mg tablet Take 1 tablet by mouth once daily. pantoprazole DR (PROTONIX) 40 mg tablet Take 1 tablet by mouth once daily. montelukast (SINGULAIR) 10 mg tablet Take 1 tablet by mouth daily at bedtime. coenzyme Q10 (COENZYME Q-10) 100 mg cap capsule Take 1 capsule by mouth twice daily. Cholecalciferol, Vitamin D3, 25 mcg (1,000 unit) cap Ta (more content not included)... Normal [facility] B2 Microglob SerPl-mCncon Owwk-0-Gdrhwphxmelso [Mass/Vol] 2.5 ug/mL Normal <3.1 [facility] Comment on above: Order Comment: Specodalis alejandre Type: BLOOD SPECIMENOrdering Facility: [facility] Address: [address] [place] [address] Result Comment: Beta -2 Microglobulin test is performed using the [employer] immunoturbidimetric method. Results obtained with different methods or kits cannot be used interchangeably. Performed By: #### 2 885-2, 1951-11 ####[facility] [id number] [place] [address] [place] CBC W Auto Differential pane l (Bld)on 02-10-2025 Basophils (Bld) [#/Vol] 0.04 10*3/uL Normal <0.11 [facility] Comment on above: Order Comment: Giovana alejandre Type: BLOOD SPECIMENOrdering Facility: [facility] Address: [address] [place] [address] Performed By: #### 5 7021-8 ####[facility] [id number] [place] [address] [place] Basophils/100 WBC (Bld) 0.5 % Normal [facility] Comment on above: Order Comment: Giovana alejandre Type: BLOOD SPECIMENOrdering Facility: [facility] Address: [address] [place] [address] Performed By: #### 5 7021-8 ####[facility] MARGUERITEWNCLIA [id number] [place] [address] [place] Differential cell count method Nom (Bld) Auto Normal [facility] Comment on above: Order Comment: Speci men Type: BLOOD SPECIMENOrdering Facility: [facility] Address: [address] [place] [address] Performed By: #### 5 7021-8 ####[facility]ENTERGABBYLIA [id number] [place] [address] [place] Eosinophils (Bld) [#/Vol] 0.13 10*3/uL Normal <0.46 [facility] Comment on above: Order Comment: Speci men Type: BLOOD SPECIMENOrdering Facility: [facility] Address: [address] [place] [address] Performed By: #### 5 7021-8 ####[facility]ENTERGABBYA [id number] [place] [address] [place] Eosinophils/100 WBC (Bld) 1.7 % Normal [facility] Comment on above: Order Comment: Speci men Type: BLOOD SPECIMENOrdering Facility: [facility] Address: [address] [place] [address] Performed By: #### 5 7021-8 ####[facility] CENTERRAJINDERA [id number] [place] [address] [place] Erythrocyte distribution width (RBC) [Ratio] 13.5 % Normal 11.5-15.0 [facility] Comment on above: Order Comment: Speci men Type: BLOOD SPECIMENOrdering Facility: [facility] Address: [address] [place] [address] Performed By: #### 5 7021-8 ####[facility]ENTERNCLIA [id number] [place] [address] [place] Hematocrit (Bld) [Volume fraction] 38.6 % Normal 36.0-46.0 [facility] Comment on above: Order Comment: Speci men Type: BLOOD SPECIMENOrdering Facility: [facility] Address: [address] [place] [address] Performed By: #### 5 7021-8 ####[facility] [id number] [place] [address] [place] Hemoglobin (Bld) [Mass/Vol] 12.9 g/dL Normal 11.5-15.5 [facility] Comment on above: Order Comment: Speci men Type: BLOOD SPECIMENOrdering Facility: [facility] Address: [address] [place] [address] Performed By: #### 5 7021-8 ####[facility] [id number] [place] [address] [place] Immature granulocytes (Bld) [#/Vol] 10*3/uL Normal <0.10 [facility] Comment on above: Order Comment: Speci men Type: BLOOD SPECIMENOrdering Facility: [facility] Address: [address] [place] [address] Performed By: #### 5 7021-8 ####[facility] [id number] [place] [address] [place] Immature granulocytes/100 WBC (Bld) 0.1 % Normal [facility] Comment on above: Order Comment: Speci men Type: BLOOD SPECIMENOrdering Facility: [facility] Address: [address] [place] [address] Performed By: #### 5 7021-8 ####[facility] [id number] [place] [address] [place] Lymphocytes (Bld) [#/Vol] 3.30 10*3/uL Normal 1.00-4.00 [facility] Comment on above: Order Comment: Speci men Type: BLOOD SPECIMENOrdering Facility: [facility] Address: [address] [place] [address] Performed By: #### 5 7021-8 ####[facility] MARGUERITEGERARDO [id number] [address] [place] [facility] Lymphocytes/100 WBC (Bld) 42.8 % Normal [facility] Comment on above: Order Comment: Speci men Type: BLOOD SPECIMENOrdering Facility: [facility] Address: [address] [place] [address] Performed By: #### 5 7021-8 ####[facility] MARGUERITEEAST FREEDOMRAJINDER [id number] [place] [address] [place] MCH (RBC) [Entitic mass] 29.2 pg Normal 26.0-34.0 [facility] Comment on above: Order Comment: Speci men Type: BLOOD SPECIMENOrdering Facility: [facility] Address: [address] [place] [address] Performed By: #### 5 7021-8 ####[facility]OSPITALCARLOS [id number] [place] [address] [place] MCHC (RBC) [Mass/Vol] 33.4 g/dL Normal 30.5-36.0 [facility] Comment on above: Order Comment: Speci men Type: BLOOD SPECIMENOrdering Facility: [facility] Address: [address] [place] [address] Performed By: #### 5 7021-8 ####[facility] CENTERRAJINDERA [id number] [place] [address] [place] MCV (RBC) [Entitic vol] 87.3 fL Normal 80.0-100.0 [facility] Comment on above: Order Comment: Speci men Type: BLOOD SPECIMENOrdering Facility: [facility] Address: [address] [place] [address] Performed By: #### 5 7021-8 ####[facility] CENTERGABBYA [id number] [place] [address] [place] Monocytes (Bld) [#/Vol] 0.51 10*3/uL Normal <0.87 [facility] Comment on above: Order Comment: Speci men Type: BLOOD SPECIMENOrdering Facility: [facility] Address: [address] [place] [address] Performed By: #### 5 7021-8 ####[facility]OSPITALWMDLIA [id number] [place] [address] [place] Monocytes/100 WBC (Bld) 6.6 % Normal [facility] Comment on above: Order Comment: Speci men Type: BLOOD SPECIMENOrdering Facility: [facility] Address: [address] [place] [address] Performed By: #### 5 7021-8 ####[facility] HOSPITALLIA [id number] [place] [address] [place] Neutrophils (Bld) [#/Vol] 3.72 10*3/uL Normal 1.45-7.50 [facility] Comment on above: Order Comment: Speci men Type: BLOOD SPECIMENOrdering Facility: [facility] Address: [address] [place] [address] Performed By: #### 5 7021-8 ####[facility] HOSPITALLIA [id number] [place] [address] [place] Neutrophils/100 WBC (Bld) 48.3 % Normal [facility] Comment on above: Order Comment: Speci men Type: BLOOD SPECIMENOrdering Facility: [facility] Address: [address] [place] [address] Performed By: #### 5 7021-8 ####[facility] HOSPITALLIA [id number] [place] [address] [place] Nucleated RBC (Bld) [#/Vol] 10*3/uL Normal <0.01 [facility] Comment on above: Order Comment: Speci men Type: BLOOD SPECIMENOrdering Facility: [facility] Address: [address] [place] [address] Performed By: #### 5 7021-8 ####[facility]ERNCP[facility] [id number] [place] [address] [place] Nucleated RBC/100 WBC (Bld) [Ratio] 0.0 /100 WBC Normal [facility] Comment on above: Order Comment: Speci men Type: BLOOD SPECIMENOrdering Facility: [facility] Address: [address] [place] [address] Performed By: #### 5 7021-8 ####[facility] [id number] [place] [address] [place] Platelet mean volume (Bld) [Entitic vol] 9.9 fL Normal 9.0-12.7 [facility] Comment on above: Order Comment: Speci men Type: BLOOD SPECIMENOrdering Facility: [facility] Address: [address] [place] [address] Performed By: #### 5 7021-8 ####[facility] CENTERNCLIA [id number] [place] [address] [place] Platelets (Bld) [#/Vol] 263 10*3/uL Normal 150-400 [facility] Comment on above: Order Comment: Speci men Type: BLOOD SPECIMENOrdering Facility: [facility] Address: [address] [place] [address] Performed By: #### 5 7021-8 ####[facility] [id number] [place] [address] [place] RBC (Bld) [#/Vol] 4.42 10*6/uL Normal 3.90-5.20 [facility] Comment on above: Order Comment: Speci men Type: BLOOD SPECIMENOrdering Facility: [facility] Address: [address] [place], [place] [address] Performed By: #### 5 7021-8 ####[facility] ELDERGABBYFINESSE [id number] [place] [address] [place] WBC (Bld) [#/Vol] 7.71 10*3/uL Normal 3.70-11.00 [facility] Comment on above: Order Comment: Speci men Type: BLOOD SPECIMENOrdering Facility: [facility] Address: [address] [place] [address] Performed By: #### 5 7021-8 ####[facility] MARGUERITEGERARDO [id number] [place] [address] [place] Comprehensive metabolic 2000 panelon 02-10-2025 Albumin [Mass/Vol] 5.0 g/dL High 3.9-4.9 [facility] Comment on above: Order Comment: Speci men Type: BLOOD SPECIMENOrdering Facility: [facility] Address: [address] [place] [address] Performed By: #### 2 4323-8, 2532-0 ####[facility] MARGUERITEEAST FREEDOMRAJINDERA [id number] [place] [address] [place] ALP [Catalytic activity/Vol] 31 U/L Low 34-123 [facility] Comment on above: Order Comment: Speci men Type: BLOOD SPECIMENOrdering Facility: [facility] Address: [address] [place] [address] Performed By: #### 2 4323-8, 2532-0 ####[facility] MARGUERITEEAST FREEDOMRAJINDERA [id number] [place] [address] [place] ALT [Catalytic activity/Vol] 16 U/L Normal 7-38 [facility] Comment on above: Order Comment: Speci men Type: BLOOD SPECIMENOrdering Facility: [facility] Address: [address] [place] [address] Performed By: #### 2 4323-8, 2531-0 ####[facility] KEVIN MILLTOWNCLIA [id number] [place] [address] [place] Anion gap [Moles/Vol] 15 mmol/L Normal 8-15 [facility] Comment on above: Order Comment: Speci men Type: BLOOD SPECIMENOrdering Facility: [facility] Address: [address] [place] [address] Performed By: #### 2 432-8, 2531-0 ####[facility] MILLTOWNCLIA [id number] [place] [address] [place] AST [Catalytic activity/Vol] 19 U/L Normal 13-35 [facility] Comment on above: Order Comment: Speci men Type: BLOOD SPECIMENOrdering Facility: [facility] Address: [address] [place] [address] Performed By: #### 2 432-8, 2531-0 ####[facility] MILLTOWNCLIA [id number] [place] [address] [place] Bilirubin [Mass/Vol] 0.3 mg/dL Normal 0.2-1.3 [facility] Comment on above: Order Comment: Speci men Type: BLOOD SPECIMENOrdering Facility: [facility] Address: [address] [place] [address] Performed By: #### 2 4323-8, 2531-0 ####[facility] MILLTOWNCLIA [id number] [place] [address] [place] Calcium [Mass/Vol] 10.3 mg/dL High 8.5-10.2 [facility] Comment on above: Order Comment: Speci men Type: BLOOD SPECIMENOrdering Facility: [facility] Address: [address] [place] [address] Performed By: #### 2 4323-8, 2531-0 ####[facility] CENTERGABBYLIA [id number] [place] [address] [place] Chloride [Moles/Vol] 97 mmol/L Low 98-107 [facility] Comment on above: Order Comment: Speci men Type: BLOOD SPECIMENOrdering Facility: [facility] Address: [address] [place] [address] Performed By: #### 2 4323-8, 2532-0 ####[facility] HOSPITALLI [id number] [place] [address] [place] CO2 [Moles/Vol] 26 mmol/L Normal 22-30 [facility] Comment on above: Order Comment: Speci men Type: BLOOD SPECIMENOrdering Facility: [facility] Address: [address] [place] [address] Performed By: #### 2 4323-8, 2532-0 ####[facility] [id number] [place] [address] [place] Creatinine [Mass/Vol] 0.90 mg/dL Normal 0.58-0.96 [facility] Comment on above: Order Comment: Speci men Type: BLOOD SPECIMENOrdering Facility: [facility] Address: [address] [place] [address] Performed By: #### 2 4323-8, 2532-0 ####[facility] [id number] [place] [address] [place] Creatinine and Glomerular filtration rate.predicted panel (S/P/Bld) 70 mL/min/1.73m??? Normal >=60 [facility] Comment on above: Order Comment: Speci men Type: BLOOD SPECIMENOrdering Facility: [facility] Address: [address] [place] [address] Result Comment: Amna mated Glomerular Filtration Rate (eGFR) is calculated using the 2020 CKD-EPI creatinine equation. This equation utilizes serum creatinine, sex, and age as parameters. The creatinine assay has traceable calibration to isotope dilution-mass spectrometry. Refer to [facility] guidelines for clinical interpretation. In patients with unstable renal function, e.g. those with acute kidney injury, the eGFR may not accurately reflect actual GFR. Performed By: #### 2 4328, 0 ####[facility] MARGUERITENANCIWNCLIA [id number] [place] [address] [place] Glucose [Mass/Vol] 143 mg/dL High 74-99 [facility] Comment on above: Order Comment: Giovana alejandre Type: BLOOD SPECIMENOrdering Facility: [facility] Address: [address] [id number] Result Comment: The [place] Diabetes Association (ADA) provides guidance for cutoff values for fasting glucose and random glucose. The ADA defines fasting as no caloric intake for at least 8 hours. Fasting plasma glucose results between 100 to 125 mg/dL indicate increased risk for diabetes (prediabetes). Fasting plasma glucose results greater than or equal to 126 mg/dL meet the criteria for diagnosis of diabetes. In the absence of unequivocal hyperglycemia, results should be confirmed by repeat testing. In a patient with classic symptoms of hyperglycemia or hyperglycemic crisis, random plasma glucose results greater than or equal to 200 mg/dL meet the criteria for diagnosis of diabetes. Reference: Standards of Medical Care in Diabetes 2016, [place] Diabetes Association. Diabetes Care. 2016.39(Suppl 1). Performed By: #### 2 4328, ####[facility] [id number] [place] [address] [place] Potassium [Moles/Vol] 3.4 mmol/L Low 3.7-5.1 [facility] Comment on above: Order Comment: Giovana alejandre Type: BLOOD SPECIMENOrdering Facility: [facility] Address: [address] [place] [address] Performed By: #### 2 4328, 0 ####[facility]CLIA [id number] [place] [address] [place] Protein [Mass/Vol] 8.5 g/dL High 6.3-8.0 [facility] Comment on above: Order Comment: Speci men Type: BLOOD SPECIMENOrdering Facility: [facility] Address: [address] [place] [address] Performed By: #### 2 4323-8, 2531-0 ####[facility] [id number] [place] [address] [place] Sodium [Moles/Vol] 138 mmol/L Normal 136-144 [facility] Comment on above: Order Comment: Speci men Type: BLOOD SPECIMENOrdering Facility: [facility] Address: [address] [place] [address] Performed By: #### 2 4323-8, 0 ####[facility] [id number] [address] [place] Urea nitrogen [Mass/Vol] 16 mg/dL Normal 7-21 [facility] Comment on above: Order Comment: Speci men Type: BLOOD SPECIMENOrdering Facility: [facility] Address: [address] [place] [address] Performed By: #### 2 4323-8, 0 ####[facility] [id number] [address] [place] IMMUNOFIXATION SCREEN, SERUM on 02-10-2025 MPA RESULT No M protein is identified. Normal No M protein is identified. [facility] Comment on above: Order Comment: Speci men Type: BLOOD SPECIMENOrdering Facility: [facility] Address: [address] [place] [address] Performed By: #### I [facility] ####[facility] LABCLIA [id number] [place] [address] [place] STAFF REVIEW (MPA) Reviewed by Dr. Vale Hurst MD [facility] Comment on above: Order Comment: Speci men Type: BLOOD SPECIMENOrdering Facility: [facility] Address: [address] [place] [address] Performed By: #### I FESC ####[facility] LAB[facility] [id number] [place] [address] [place] IMMUNOGLOBULINS,IGG,IGA,IGMo n 02-10-2025 IgA [Mass/Vol] 275 mg/dL Normal 70-400 [facility] Comment on above: Order Comment: Speci men Type: BLOOD SPECIMENOrdering Facility: [facility] Address: [address] [place] [address] Performed By: #### S ERIMM ####[facility] [id number] [place] [address] [place] IgG [Mass/Vol] 1571 mg/dL Normal 700-1600 [facility] Comment on above: Order Comment: Speci men Type: BLOOD SPECIMENOrdering Facility: [facility] Address: [address] [place] [address] Performed By: #### S ERIMM ####[facility] [id number] [place] [address] [place] IgM [Mass/Vol] 134 mg/dL Normal 40-230 [facility] Comment on above: Order Comment: Speci men Type: BLOOD SPECIMENOrdering Facility: [facility] Address: [address] [place] [address] Performed By: #### S ERIMM ####[facility] [id number] [place] [address] [place] KAPPA/DEJESUS,FREE,SERon 2024 Immunoglobulin light chains.kappa.free (S) [Mass/Vol] 38.8 mg/L High 3.3-19.4 [facility] Comment on above: Order Comment: Speci men Type: BLOOD SPECIMENOrdering Facility: [facility] Address: [address] [place] [address] Result Comment: Rare ly, increased serum free light chains levels may not be detected or accurately quantified due to prozone phenomenon or in high viscosity samples using this immunoturbidimetric assay. Correlation with other laboratory results and clinical findings is recommended. The [place] Free Light Chain was performed using the Binding Site Optilite immunoturbidimetric method. Result obtained with different assay methods or kits cannot be used interchangeably. Performed By: #### K LFRS ####[facility]CL[facility] [id number] [place] [address] [place] Immunoglobulin light chains.kappa/Immunoglobu belle light chains.lambda (S) [Mass ratio] 1.92 High 0.26-1.65 [facility] Comment on above: Order Comment: Speci men Type: BLOOD SPECIMENOrdering Facility: [facility] Address: [address] [place] [address] Performed By: #### K LFRS ####[facility]CL[facility] [id number] [place] [address] [place] Immunoglobulin light chains.lambda.free [Mass/Vol] 20.2 mg/L Normal 5.7-26.3 [facility] Comment on above: Order Comment: Speci men Type: BLOOD SPECIMENOrdering Facility: [facility] Address: [address] [place] [address] Result Comment: Rare ly, increased serum free light chains levels may not be detected or accurately quantified due to prozone phenomenon or in high viscosity samples using this immunoturbidimetric assay. Correlation with other laboratory results and clinical findings is recommended. The [place] Free Light Chain was performed using the Binding Site Optilite immunoturbidimetric method. Result obtained with different assay methods or kits cannot be used interchangeably. Performed By: #### K LFRS ####[facility] [id number] [place] [address] [place] LDH SerPl-cCncon 02-10-2025 LDH [Catalytic activity/Vol] 166 U/L Normal 135-214 [facility] Comment on above: Order Comment: Speci men Type: BLOOD SPECIMENOrdering Facility: [facility] Address: [address] [place] [address] Performed By: #### 2 4323-8, 2532-0 ####[facility] [id number] [place] [address] [place] PROTEIN ELECTROPHORESIS SERU M (P)on 02-10-2025 Albumin [Mass/Vol] 4.82 g/dL Normal 3.43-5.41 [facility] Comment on above: Order Comment: Speci men Type: BLOOD SPECIMENOrdering Facility: [facility] Address: [address] [place] [address] Performed By: #### L [id number] ####[facility] [id number] [place] [address] [place] Alpha 1 globulin Elph [Mass/Vol] 0.27 g/dL Normal 0.18-0.43 [facility] Comment on above: Order Comment: Speci men Type: BLOOD SPECIMENOrdering Facility: [facility] Address: [address] [place] [address] Performed By: #### L [id number] ####[facility] [id number] [place] [address] [place] Alpha 2 globulin Elph [Mass/Vol] 0.78 g/dL Normal 0.42-0.98 [facility] Comment on above: Order Comment: Speci men Type: BLOOD SPECIMENOrdering Facility: [facility] Address: [address] [place] [address] Performed By: #### L [id number] ####[facility] [id number] [place] [address] [place] Beta globulin Elph [Mass/Vol] 0.90 g/dL Normal 0.61-1.17 [facility] Comment on above: Order Comment: Speci men Type: BLOOD SPECIMENOrdering Facility: [facility] Address: [address] [place] [address] Performed By: #### L [id number] ####[facility] [id number] [address] [address] [place] Gamma globulin Elph [Mass/Vol] 1.33 g/dL Normal 0.53-1.51 [facility] Comment on above: Order Comment: Speci [facility] Type: BLOOD SPECIMENOrdering Facility: [facility] Address: [address] [place] [address] Performed By: #### L [id number] ####[facility] [id number] [address] [address] [place] INTERPRETATION COMMENT FOR PROTEIN ELECTROPHORESIS The atypical region is relatively poorly defined and may represent an unusual presentation of polyclonal immunoglobulins, but cannot rule out the presence of a low level M protein. If clinically indicated, monoclonal protein analysis and serum free light chain analysis are suggested to evaluate further for monoclonal gammopathy. Normal [facility] Comment on above: Order Comment: Speci men Type: BLOOD SPECIMENOrdering Facility: [facility] Address: [address] [place] [address] Performed By: #### L [id number] ####[facility] [id number] [address] STATES [facility] M-PROTEIN LOCATION Normal [facility] Comment on above: Order Comment: Speci [facility] Type: BLOOD SPECIMENOrdering Facility: [facility] Address: [address] [place] [address] Result Comment: Not Applicable. Performed By: #### L [id number] ####[facility] [id number] [address] [address] [place] Protein Fractions [Interp] An atypical region of restricted mobility is identified on protein electrophoresis. Abnormal No definitive M protein is identified on protein electrophor esis. [facility] Comment on above: Order Comment: Hyacinthi [facility] Type: BLOOD SPECIMENOrdering Facility: [facility] Address: [address] [place] [address] Performed By: #### L [id number] ####[facility] [id number] [place] [address] [place] Protein.monoclonal Elph [Mass/Vol] 0.00 g/dL Normal <=0.00 [facility] Comment on above: Order Comment: Speci men Type: BLOOD SPECIMENOrdering Facility: [facility] Address: [address] [place] [address] Performed By: #### L [id number] ####[facility] [id number] [place] [id number] [place] SPE STAFF REVIEW Reviewed by Dr. Vlae Hurst MD [facility] Comment on above: Order Comment: Speci men Type: BLOOD SPECIMENOrdering Facility: [facility] Address: [address] [place] [address] Performed By: #### L [id number] ####[facility] [id number] [place] [id number] [place] Prot SerPl-mCncon 02-10-2025 Protein [Mass/Vol] 8.1 g/dL High 6.3-8.0 [facility] Comment on above: Order Comment: Speci men Type: BLOOD SPECIMENOrdering Facility: [facility] Address: [address] [place] [address] Performed By: #### 2 885-2, 1951-11 ####[facility] [id number] [place] [address] [place] Pulmonary Visit Reporton Pulmonary Visit Report [facility] Pul[facility] Medicine of [address] [place], [place] [id number] OFFICE VISIT Date of Service: 02/02/25 MR#: [id number] Acct: [id number] Name: ЮЛИЯ PRASAD Rep #: [id number] 3 : 1955 Provider: Rachel Madden NP Age/Sex: 69/F [place] [facility] Status: Signed Assessment and Plan Assessment and Plan (1) Asthma: Qualifiers: Asthma severity: unspecified severity Asthma persistence: unspecified Asthma complication type: unspecified Qualified Code(s): J45.909 - Unspecified asthma, uncomplicated Plan: Asthma is suspected as patient has a previous diagnosis. Due to her smoking history however the patient could have COPD. I have recommended a full set of pulmonary function testing to be completed at this time along with a 6-minute walk test. I have recommended that she continue with her current inhaled regimen until testing can be obtained. Her inhaled regimen may need to be adjusted on follow-up. Notify this practice for worsening respiratory symptoms. Follow-up with GI as planned. The correlation between suboptimal control of GERD and discussed at length with patient today. I do believe that the chest pain associated with her GI complaints today. Continue to follow with PCP. (2) Smoking greater than 30 pack years: Status: Acute Plan: Smoking cessation is warranted at this time. Will continue to discuss on follow-up. (3) Pulmonary nodules: Status: Acute Plan: I have recommended a noncontrasted chest CT to follow the pulmonary nodules that were previously identified on CT imaging. The patient is agreeable to this testing. Orders: Orders PFT Complete - DLCO, Spirometry b/a bronchodilators, lung volumes 03/24/25 F17.210 - Nicotine dependence, cigarettes, uncomplicated Simple Pulmonary Exercise Test 03/28/25 F17.210 - Nicotine dependence, cigarettes, uncomplicated Chest without Contrast Today R91.8 - Other nonspecific abnormal finding of lung field Plan Details Follow Up: 4 to 6 weeks (LMR) HPI HPI Comments Details: Patient is a 69-year-old female who is referred from Dr. Machuca for evaluation of asthma and lung screening. She would like to reestablish with pulmonology. She previously had been seen by Dr. Barbie Ruiz, Pulmonology [facility]. She is ambulatory and currently on room air. She has previously completed spirometry from [facility] on February 28, 2022 which showed normal spirometry with minimal small airway obstruction. She also completed a low-dose screening lung CT on March 19, 2022 which showed lungs to be mildly hyperexpanded. Interstitial changes were noted in both lung roberts without organized infiltrate. There was a noncalcified nodule in the right lower lobe on image 132 measuring 4.3 mm and a pleural-based nodule in the right middle lobe on image 161 measuring 5.2 mm. Her asthma is compromised with a history of allergies but she was never formally treated with immunotherapy. In the past she has used Advair, but is currently utilizing fluticasone propionate. She believes that the Advair was superior but has had difficulty with insurance coverage. She has also noted that albuterol is less effective than fluticasone. She also experiences GERD and has difficulty with control despite use of H2 sharif and PPI. She is seeing Dr. Philippe for upper and lower scope. Patient reports once weekly emesis of burning acid in the morning. She indicates that when this occurs her heart racing fast and she will experience left-sided chest pain. She reports other times she will notice that her heart rate is slower. She indicates that she has occasional shortness of breath with activity. She believes that she has had a worsening cough which is usually dry but occasionally will be productive of clear to yellow sputum. She attributes this to environmental exposures. She has noticed wheezing which will occur at night. She reports that when laying down I get little air bubbles. Sinus congestion and drainage are present and the patient reports occasional chest congestion. She denies chest tightness, but does have right upper back spasms. She reports feeling like someone is gripping and turning my lung. She will stop activity and rest and this feeling will resolve. The patient indicates that she does not have frequent bronchitis or pneumonia. She continues to smoke 10 to 15 cigarettes/day for the last 50 years. 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 Environmental exposure includes living in a home that was build in 1909. The duct work has not been cleaned. This past winter she had worsening symptoms with her furnace running all the time. Intake Vital Signs 02/05/23 18:16 02/02/25 05:14 Height 5 ft 2 in 5 ft 2 in Weight: 136 lb BMI 24.8 BP 132/75 H Blood Pressure Lo (more content not included)... Normal [facility] L7000.0750on 01-10-2025 P ELASTASE,FECA > 800 Normal >200 [facility] Comment on above: Result Comment: Resu lt Units: ug Elast./g Severe Pancreatic Insufficiency: <100 Moderate Pancreatic Insufficiency: 100 - 200 Normal: >200 Performed at: [facility] [address] [id number] Health And Safety Manager: Jerrell Napoles MD, Phone: [phone] Performed By: #### L 7000.0750, M100.0605, L7000.0300 ####[facility] [address] [place], [address] Stool Lactoferrin/WBCon 12-12 WBCST Normal Reference Ran ge = Negative Fecal WBC Lactoferrin Negative: No Fecal WBC Lactoferrin present Normal [facility] Comment on above: Performed By: #### L 7000.0750, M100.0605, L7000.0300 ####[facility] [address] [place], [address] Elastase.pancreatic (Stl) [M ass/Mass]Ordered By: Pernell Philippe on 01-05-2025 Stool Pancreatic Elastase > 800 >200 [facility] Comment on above: Result Units: ug Melyssa st./g Severe Pancreatic Insufficiency: <100 Moderate Pancreatic Insufficiency: 100 - 200 Normal: >200Performed at: [facility] [address] [id number] Director: Jerrell Napoles MD, Phone: [phone] Fecal Fat, Qualitativeon FATS, NEUTRAL Normal [facility] Comment on above: Result Comment: NOT ENOUGH STOOL TO RUN PER [facility] Performed By: #### L 7000.0750, M100.0605, L7000.0300 ####[facility] [address] [place], [address] FATS, TOTAL Normal [facility] Comment on above: Result Comment: NOT ENOUGH STOOL TO RUN PER [facility] Performed By: #### L 7000.0750, M100.0605, L7000.0300 ####[facility] [address] [place], [address] Lactoferrin IA Ql (Stl)Order ed By: Pernell Philippe on 01-05-2025 Stool Lactoferrin [facility] Stool lactoferrin detection by immunoassayOrdered By: Pernell Friend on 01-05-2025 Lactoferrin IA Ql (Stl) [facility] Stool pancreatic elastase me asurement (mass/mass)Ordered By: Pernell Philippe on 01-05-2025 Elastase.pancreatic (Stl) [Mass/Mass] > 800 >200 [facility] Comment on above: Result Units: ug Melyssa st./g Severe Pancreatic Insufficiency: <100 Moderate Pancreatic Insufficiency: 100 - 200 Normal: >200Performed at: [facility] [id number] Director: Jerrell Napoles MD, Phone: [phone] ARYA Comprehensive Panelon ANTI-DNA (DS)AB 1 IU/mL Normal 0-9 [facility] Comment on above: Result Comment: Nega tive <5 Equivocal 5 - 9 Positive >9 Performed By: #### L 5500.0550, L3100.3425, L504.2610, L3300.1800, L3410.2400, L3100.5440, L500.4050, L101.9900, L501.6710, L3410.1000, L3410.0900, L503.0105, L3300.1200, L5500.0300, L3200.1100, L3100.6900 #### [facility] [address] [place], [address] ANTISCLERODERM <0.2 Normal 0.0-0.9 [facility] Comment on above: Performed By: #### L 5500.0550, L3100.3425, L504.2610, L3300.1800, L3410.2400, L3100.5440, L500.4050, L101.9900, L501.6710, L3410.1000, L3410.0900, L503.0105, L3300.1200, L5500.0300, L3200.1100, L3100.6900 #### [facility] [address] [place], [place], [id number] ANCAon 01-03-2025 Atypical pANCA <1:20 Normal Neg:<1:20 [facility] Comment on above: Result Comment: The atypical pANCA pattern has been observed in a significant percentage of patients with ulcerative colitis, primary sclerosing cholangitis and autoimmune hepatitis. Performed By: #### L 5500.0550, L3100.3425, L504.2610, L3300.1800, L3410.2400, L3100.5440, L500.4050, L101.9900, L501.6710, L3410.1000, L3410.0900, L503.0105, L3300.1200, L5500.0300, L3200.1100, L3100.6900 ####[facility] [address] [place], [address] Cytoplasmic Ab <1:20 Normal Neg:<1:20 [facility] Comment on above: Performed By: #### L 5500.0550, L3100.3425, L504.2610, L3300.1800, L3410.2400, L3100.5440, L500.4050, L101.9900, L501.6710, L3410.1000, L3410.0900, L503.0105, L3300.1200, L5500.0300, L3200.1100, L3100.6900 ####[facility] [address] [place], [address] Perinuclear Ab. <1:20 Normal Neg:<1:20 [facility] Comment on above: Result Comment: The presence of positive fluorescence exhibiting P-ANCA or C-ANCA patterns alone is not specific for the diagnosis of Evette's Granulomatosis (WG) or microscopic polyangiitis. Decisions about treatment should not be based solely on ANCA IFA results. The International ANCA Group Consensus recommends follow up testing of positive sera with both MT- 3 and MPO-ANCA enzyme immunoassays. As many as 5% serum samples are positive only by EIA. Ref. AM J Clin Pathol 1999;111:507-513. Performed By: #### L 5500.0550, L3100.3425, L504.2610, L3300.1800, L3410.2400, L3100.5440, L500.4050, L101.9900, L501.6710, L3410.1000, L3410.0900, L503.0105, L3300.1200, L5500.0300, L3200.1100, L3100.6900 ####[facility] [address] [place], [place], [id number] Efra [facility] 2024 A. ALTERNATA <0.10 Normal Class 0 [facility] Comment on above: Performed By: #### L 5500.0550, L3100.3425, L504.2610, L3300.1800, L3410.2400, L3100.5440, L500.4050, L101.9900, L501.6710, L3410.1000, L3410.0900, L503.0105, L3300.1200, L5500.0300, L3200.1100, L3100.6900 ####[facility] [address] [place], [place], [id number] [place]DA [place] <0.10 Normal Class 0 [facility] Comment on above: Performed By: #### L 5500.0550, L3100.3425, L504.2610, L3300.1800, L3410.2400, L3100.5440, L500.4050, L101.9900, L501.6710, L3410.1000, L3410.0900, L503.0105, L3300.1200, L5500.0300, L3200.1100, L3100.6900 ####[facility] [address] [place], [place], [id number] [place], [place] <0.10 Normal Class 0 [facility] Comment on above: Performed By: #### L 5500.0550, L3100.3425, L504.2610, L3300.1800, L3410.2400, L3100.5440, L500.4050, L101.9900, L501.6710, L3410.1000, L3410.0900, L503.0105, L3300.1200, L5500.0300, L3200.1100, L3100.6900 ####[facility] [address] [place], [place], [id number] CAT HAIR/DANDER <0.10 Normal Class 0 [facility] Comment on above: Performed By: #### L 5500.0550, L3100.3425, L504.2610, L3300.1800, L3410.2400, L3100.5440, L500.4050, L101.9900, L501.6710, L3410.1000, L3410.0900, L503.0105, L3300.1200, L5500.0300, L3200.1100, L3100.6900 ####[facility] [address] [place], [place], [id number] COMMENT Comment Normal . [facility] Comment on above: Result Comment: Angelique george of Specific IgE Class Description of Class ----- < 0.10 0 Negative 0.10 - 0.31 0/I Equivocal/Low 0.32 - 0.55 I Low 0.56 - 1.40 II Moderate 1.41 - 3.90 III High 3.91 - 19.00 IV Very High 19.01 - 100.00 V Very High >100.00 Very High Performed By: #### L 5500.0550, L3100.3425, L504.2610, L3300.1800, L3410.2400, L3100.5440, L500.4050, L101.9900, L501.6710, L3410.1000, L3410.0900, L503.0105, L3300.1200, L5500.0300, L3200.1100, L3100.6900 ####[facility] [address] [place], [place], [id number] D FARINAE MITE <0.10 Normal Class 0 [facility] Comment on above: Performed By: #### L 5500.0550, L3100.3425, L504.2610, L3300.1800, L3410.2400, L3100.5440, L500.4050, L101.9900, L501.6710, L3410.1000, L3410.0900, L503.0105, L3300.1200, L5500.0300, L3200.1100, L3100.6900 ####[facility] [address] [place], [address] D PTERONYSSINUS <0.10 Normal Class 0 [facility] Comment on above: Performed By: #### L 5500.0550, L3100.3425, L504.2610, L3300.1800, L3410.2400, L3100.5440, L500.4050, L101.9900, L501.6710, L3410.1000, L3410.0900, L503.0105, L3300.1200, L5500.0300, L3200.1100, L3100.6900 ####[facility] [address] [place], [place], [phone] DOG EPITHELIA <0.10 Normal Class 0 [facility] Comment on above: Performed By: #### L 5500.0550, L3100.3425, L504.2610, L3300.1800, L3410.2400, L3100.5440, L500.4050, L101.9900, L501.6710, L3410.1000, L3410.0900, L503.0105, L3300.1200, L5500.0300, L3200.1100, L3100.6900 ####[facility] [address] [place], [place], [phone] ELM,AMER WHITE <0.10 Normal Class 0 [facility] Comment on above: Performed By: #### L 5500.0550, L3100.3425, L504.2610, L3300.1800, L3410.2400, L3100.5440, L500.4050, L101.9900, L501.6710, L3410.1000, L3410.0900, L503.0105, L3300.1200, L5500.0300, L3200.1100, L3100.6900 ####[facility] [address] [place], [place], [address] Mouse Urine <0.10 Normal Class 0 [facility] Comment on above: Result Comment: Perf ormed at: [address] [id number] Health And Safety Manager: Cleveland Poon PhD, Phone: [phone] Performed at: [facility] [address] [id number] Health And Safety Manager: Jerrell Napoles MD, Phone: [phone] Performed By: #### L 5500.0550, L3100.3425, L504.2610, L3300.1800, L3410.2400, L3100.5440, L500.4050, L101.9900, L501.6710, L3410.1000, L3410.0900, L503.0105, L3300.1200, L5500.0300, L3200.1100, L3100.6900 ####[facility] [address] [place], [place], [phone] OAK, WHITE <0.10 Normal Class 0 [facility] Comment on above: Performed By: #### L 5500.0550, L3100.3425, L504.2610, L3300.1800, L3410.2400, L3100.5440, L500.4050, L101.9900, L501.6710, L3410.1000, L3410.0900, L503.0105, L3300.1200, L5500.0300, L3200.1100, L3100.6900 ####[facility] [address] [place], [place], [phone] PLANTSOLEDAD,SHANELLE <0.10 Normal Class 0 [facility] Comment on above: Performed By: #### L 5500.0550, L3100.3425, L504.2610, L3300.1800, L3410.2400, L3100.5440, L500.4050, L101.9900, L501.6710, L3410.1000, L3410.0900, L503.0105, L3300.1200, L5500.0300, L3200.1100, L3100.6900 ####[facility] [address] [place], [place], [phone] RAGFederated Sample /COM <0.10 Normal Class 0 [facility] Comment on above: Performed By: #### L 5500.0550, L3100.3425, L504.2610, L3300.1800, L3410.2400, L3100.5440, L500.4050, L101.9900, L501.6710, L3410.1000, L3410.0900, L503.0105, L3300.1200, L5500.0300, L3200.1100, L3100.6900 ####[facility] [address] [place], [place], [id number] Angiotensin Convert Enzymeon 01-03-2025 ANGIOT-CONV.ENZ 56 U/L Normal 14-82 [facility] Comment on above: Performed By: #### L 5500.0550, L3100.3425, L504.2610, L3300.1800, L3410.2400, L3100.5440, L500.4050, L101.9900, L501.6710, L3410.1000, L3410.0900, L503.0105, L3300.1200, L5500.0300, L3200.1100, L3100.6900 ####[facility] [address] [place], [address] Anti-Parietal Cell AB, QNon 01-03-2025 ANTIPARIET CELL 1.7 Units Normal 0.0-20.0 [facility] Comment on above: Result Comment: Nega tive 0.0 - 20.0 Equivocal 20.1 - 24.9 Positive >24.9 Parietal Cell Antibodies are found in 90% of patients with pernicious anemia and 30% of first degree relatives with pernicious anemia. Performed By: #### L 5500.0550, L3100.3425, L504.2610, L3300.1800, L3410.2400, L3100.5440, L500.4050, L101.9900, L501.6710, L3410.1000, L3410.0900, L503.0105, L3300.1200, L5500.0300, L3200.1100, L3100.6900 ####[facility] [address] [place], [address] Celiac Disease Profileon ENDOMYSIAL IGA Negative Normal Negative [facility] Comment on above: Performed By: #### L 5500.0550, L3100.3425, L504.2610, L3300.1800, L3410.2400, L3100.5440, L500.4050, L101.9900, L501.6710, L3410.1000, L3410.0900, L503.0105, L3300.1200, L5500.0300, L3200.1100, L3100.6900 ####[facility] [address] [place], [place], [phone] tTG IGA <2 Normal 0-3 [facility] Comment on above: Result Comment: Nega tive 0 - 3 Weak Positive 4 - 10 Positive >10 Tissue Transglutaminase (tTG) has been identified as the endomysial antigen. Studies have demonstr- ated that endomysial IgA antibodies have over 99% specificity for gluten sensitive enteropathy. Performed By: #### L 5500.0550, L3100.3425, L504.2610, L3300.1800, L3410.2400, L3100.5440, L500.4050, L101.9900, L501.6710, L3410.1000, L3410.0900, L503.0105, L3300.1200, L5500.0300, L3200.1100, L3100.6900 ####[facility] [address] [place], [place], [phone]) Gastrin, Serumon 01-03-2025 GASTRIN 92 pg/mL Normal 0-115 [facility] Comment on above: Result Comment: Siem [facility] OX FACTORYulite 2000 Immunochemiluminometric assay (ICMA) Values obtained with different assay methods or kits cannot be used interchangeably. Results cannot be interpreted as absolute evidence of the presence or absence of malignant disease. Performed By: #### L 5500.0550, L3100.3425, L504.2610, L3300.1800, L3410.2400, L3100.5440, L500.4050, L101.9900, L501.6710, L3410.1000, L3410.0900, L503.0105, L3300.1200, L5500.0300, L3200.1100, L3100.6900 ####[facility] [address] [place], [place], [phone] JAMAAL + Protein Elect, Serumon 01-03-2025 Albumin [Mass/Vol] 3.6 g/dL Normal 2.9-4.4 [facility] Comment on above: Order Comment: N Performed By: #### L 5500.0550, L3100.3425, L504.2610, L3300.1800, L3410.2400, L3100.5440, L500.4050, L101.9900, L501.6710, L3410.1000, L3410.0900, L503.0105, L3300.1200, L5500.0300, L3200.1100, L3100.6900 ####[facility] [address] [place], [place], [phone]) Albumin/Globulin [Mass ratio] 0.9 {ratio} Normal 0.7-1.7 [facility] Comment on above: Order Comment: N Performed By: #### L 5500.0550, L3100.3425, L504.2610, L3300.1800, L3410.2400, L3100.5440, L500.4050, L101.9900, L501.6710, L3410.1000, L3410.0900, L503.0105, L3300.1200, L5500.0300, L3200.1100, L3100.6900 ####[facility] [address] [place], [place], [phone](704) WBCNO-8-DWBE 0.3 g/dL Normal 0.0-0.4 [facility] Comment on above: Order Comment: N Performed By: #### L 5500.0550, L3100.3425, L504.2610, L3300.1800, L3410.2400, L3100.5440, L500.4050, L101.9900, L501.6710, L3410.1000, L3410.0900, L503.0105, L3300.1200, L5500.0300, L3200.1100, L3100.6900 ####[facility] [address] [facility] [place], [phone]) AMWVW-5-BAMG 0.9 g/dL Normal 0.4-1.0 [facility] Comment on above: Order Comment: N Performed By: #### L 5500.0550, L3100.3425, L504.2610, L3300.1800, L3410.2400, L3100.5440, L500.4050, L101.9900, L501.6710, L3410.1000, L3410.0900, L503.0105, L3300.1200, L5500.0300, L3200.1100, L3100.6900 ####[facility] [address] [place], [place], [phone]) BETA GLOBULIN 1.2 g/dL Normal 0.7-1.3 [facility] Comment on above: Order Comment: N Performed By: #### L 5500.0550, L3100.3425, L504.2610, L3300.1800, L3410.2400, L3100.5440, L500.4050, L101.9900, L501.6710, L3410.1000, L3410.0900, L503.0105, L3300.1200, L5500.0300, L3200.1100, L3100.6900 ####[facility] [address] [place], [place], [phone] GAMMA GLOBULIN 1.6 g/dL Normal 0.4-1.8 [facility] Comment on above: Order Comment: N Performed By: #### L 5500.0550, L3100.3425, L504.2610, L3300.1800, L3410.2400, L3100.5440, L500.4050, L101.9900, L501.6710, L3410.1000, L3410.0900, L503.0105, L3300.1200, L5500.0300, L3200.1100, L3100.6900 ####[facility] [address] [place], [address] Globulin (S) [Mass/Vol] 4.1 g/dL Abnormal 2.2-3.9 [facility] Comment on above: Order Comment: N Performed By: #### L 5500.0550, L3100.3425, L504.2610, L3300.1800, L3410.2400, L3100.5440, L500.4050, L101.9900, L501.6710, L3410.1000, L3410.0900, L503.0105, L3300.1200, L5500.0300, L3200.1100, L3100.6900 ####[facility] [address] [place], [place], [phone] JAMAAL RESULT,S Comment: Normal . [facility] Comment on above: Order Comment: N Result Comment: Pres ence of monoclonal protein is unclear at this time. Suggest repeat in 3 to 6 months if clinically indicated. Performed By: #### L 5500.0550, L3100.3425, L504.2610, L3300.1800, L3410.2400, L3100.5440, L500.4050, L101.9900, L501.6710, L3410.1000, L3410.0900, L503.0105, L3300.1200, L5500.0300, L3200.1100, L3100.6900 ####[facility] [address] [place], [place], [phone] IMMUNOGLOB A QN 258 mg/dL Normal 87-352 [facility] Comment on above: Order Comment: N Performed By: #### L 5500.0550, L3100.3425, L504.2610, L3300.1800, L3410.2400, L3100.5440, L500.4050, L101.9900, L501.6710, L3410.1000, L3410.0900, L503.0105, L3300.1200, L5500.0300, L3200.1100, L3100.6900 ####[facility] [address] [place], [place], [phone] IMMUNOGLOB G QN 1495 mg/dL Normal 586-1602 [facility] Comment on above: Order Comment: N Performed By: #### L 5500.0550, L3100.3425, L504.2610, L3300.1800, L3410.2400, L3100.5440, L500.4050, L101.9900, L501.6710, L3410.1000, L3410.0900, L503.0105, L3300.1200, L5500.0300, L3200.1100, L3100.6900 ####[facility] [address] [place], [address] IMMUNOGLOB M QN 131 mg/dL Normal 26-217 [facility] Comment on above: Order Comment: N Performed By: #### L 5500.0550, L3100.3425, L504.2610, L3300.1800, L3410.2400, L3100.5440, L500.4050, L101.9900, L501.6710, L3410.1000, L3410.0900, L503.0105, L3300.1200, L5500.0300, L3200.1100, L3100.6900 ####[facility] [address] [place], [address] M-Lalo Not Observed Normal Not Observed [facility] Comment on above: Order Comment: N Performed By: #### L 5500.0550, L3100.3425, L504.2610, L3300.1800, L3410.2400, L3100.5440, L500.4050, L101.9900, L501.6710, L3410.1000, L3410.0900, L503.0105, L3300.1200, L5500.0300, L3200.1100, L3100.6900 ####[facility] [address] [place], [address] NOTE: Comment Normal . [facility] Comment on above: Order Comment: N Result Comment: Prot ein electrophoresis scan will follow via computer, mail, or service restorer emergency delivery. Performed By: #### L 5500.0550, L3100.3425, L504.2610, L3300.1800, L3410.2400, L3100.5440, L500.4050, L101.9900, L501.6710, L3410.1000, L3410.0900, L503.0105, L3300.1200, L5500.0300, L3200.1100, L3100.6900 ####[facility] [address] [place], [address] Protein [Mass/Vol] 7.7 g/dL Normal 6.0-8.5 [facility] Comment on above: Order Comment: N Performed By: #### L 5500.0550, L3100.3425, L504.2610, L3300.1800, L3410.2400, L3100.5440, L500.4050, L101.9900, L501.6710, L3410.1000, L3410.0900, L503.0105, L3300.1200, L5500.0300, L3200.1100, L3100.6900 ####[facility] [address] [place], [place], [phone] Immunoglobulins G/A/M/Indra IMMUNOGLOB E QN 48 IU/mL Normal 6-495 [facility] Comment on above: Order Comment: N Performed By: #### L 5500.0550, L3100.3425, L504.2610, L3300.1800, L3410.2400, L3100.5440, L500.4050, L101.9900, L501.6710, L3410.1000, L3410.0900, L503.0105, L3300.1200, L5500.0300, L3200.1100, L3100.6900 ####[facility] [address] [place], [place], [phone] Intrinsic Factor Abon 2024 INTRINS FACT AB 1.0 AU/mL Normal 0.0-1.1 [facility] Comment on above: Result Comment: Perf ormed at: [address] [id number] Health And Safety Manager: Cleveland Poon PhD, Phone: [phone] Performed at: [facility] [address] [id number] Health And Safety Manager: Jerrell Napoles MD, Phone: [phone] Performed By: #### L 5500.0550, L3100.3425, L504.2610, L3300.1800, L3410.2400, L3100.5440, L500.4050, L101.9900, L501.6710, L3410.1000, L3410.0900, L503.0105, L3300.1200, L5500.0300, L3200.1100, L3100.6900 ####[facility] [address] [place], [place], [phone] L5500.0550on 01-03-2025 BEEF <0.10 Normal Class 0 [facility] Comment on above: Performed By: #### L 5500.0550, L3100.3425, L504.2610, L3300.1800, L3410.2400, L3100.5440, L500.4050, L101.9900, L501.6710, L3410.1000, L3410.0900, L503.0105, L3300.1200, L5500.0300, L3200.1100, L3100.6900 ####[facility] [address] [place], [address] CHOCOLATE <0.10 Normal Class 0 [facility] Comment on above: Performed By: #### L 5500.0550, L3100.3425, L504.2610, L3300.1800, L3410.2400, L3100.5440, L500.4050, L101.9900, L501.6710, L3410.1000, L3410.0900, L503.0105, L3300.1200, L5500.0300, L3200.1100, L3100.6900 ####[facility] [address] [place], [address] CODFISH <0.10 Normal Class 0 [facility] Comment on above: Performed By: #### L 5500.0550, L3100.3425, L504.2610, L3300.1800, L3410.2400, L3100.5440, L500.4050, L101.9900, L501.6710, L3410.1000, L3410.0900, L503.0105, L3300.1200, L5500.0300, L3200.1100, L3100.6900 ####[facility] [address] [place], [place], [phone] CORN <0.10 Normal Class 0 [facility] Comment on above: Performed By: #### L 5500.0550, L3100.3425, L504.2610, L3300.1800, L3410.2400, L3100.5440, L500.4050, L101.9900, L501.6710, L3410.1000, L3410.0900, L503.0105, L3300.1200, L5500.0300, L3200.1100, L3100.6900 ####[facility] [address] [place], [place], [address] EGG, WHOLE <0.10 Normal Class 0 [facility] Comment on above: Performed By: #### L 5500.0550, L3100.3425, L504.2610, L3300.1800, L3410.2400, L3100.5440, L500.4050, L101.9900, L501.6710, L3410.1000, L3410.0900, L503.0105, L3300.1200, L5500.0300, L3200.1100, L3100.6900 ####[facility] [address] [place], [address] MILK (COW) <0.10 Normal Class 0 [facility] Comment on above: Performed By: #### L 5500.0550, L3100.3425, L504.2610, L3300.1800, L3410.2400, L3100.5440, L500.4050, L101.9900, L501.6710, L3410.1000, L3410.0900, L503.0105, L3300.1200, L5500.0300, L3200.1100, L3100.6900 ####[facility] [address] [place], [place], [phone] MUSSELS <0.10 Normal Class 0 [facility] Comment on above: Performed By: #### L 5500.0550, L3100.3425, L504.2610, L3300.1800, L3410.2400, L3100.5440, L500.4050, L101.9900, L501.6710, L3410.1000, L3410.0900, L503.0105, L3300.1200, L5500.0300, L3200.1100, L3100.6900 ####[facility] [address] [place], [place], [phone] PEANUT <0.10 Normal Class 0 [facility] Comment on above: Performed By: #### L 5500.0550, L3100.3425, L504.2610, L3300.1800, L3410.2400, L3100.5440, L500.4050, L101.9900, L501.6710, L3410.1000, L3410.0900, L503.0105, L3300.1200, L5500.0300, L3200.1100, L3100.6900 ####[facility] [address] [facility] [address] [place], [place], [phone] PORK <0.10 Normal Class 0 [facility] Comment on above: Performed By: #### L 5500.0550, L3100.3425, L504.2610, L3300.1800, L3410.2400, L3100.5440, L500.4050, L101.9900, L501.6710, L3410.1000, L3410.0900, L503.0105, L3300.1200, L5500.0300, L3200.1100, L3100.6900 ####[facility] [address] [facility] [address] [facility] [address] [place], [place], [phone] SALMON <0.10 Normal Class 0 [facility] Comment on above: Performed By: #### L 5500.0550, L3100.3425, L504.2610, L3300.1800, L3410.2400, L3100.5440, L500.4050, L101.9900, L501.6710, L3410.1000, L3410.0900, L503.0105, L3300.1200, L5500.0300, L3200.1100, L3100.6900 ####[facility] [address] [place], [place], [address] SHRIMP <0.10 Normal Class 0 [facility] Comment on above: Performed By: #### L 5500.0550, L3100.3425, L504.2610, L3300.1800, L3410.2400, L3100.5440, L500.4050, L101.9900, L501.6710, L3410.1000, L3410.0900, L503.0105, L3300.1200, L5500.0300, L3200.1100, L3100.6900 ####[facility] [address] [place], [place], [address] SOYBEAN <0.10 Normal Class 0 [facility] Comment on above: Performed By: #### L 5500.0550, L3100.3425, L504.2610, L3300.1800, L3410.2400, L3100.5440, L500.4050, L101.9900, L501.6710, L3410.1000, L3410.0900, L503.0105, L3300.1200, L5500.0300, L3200.1100, L3100.6900 ####[facility] [address] [place], [address] TUNA <0.10 Normal Class 0 [facility] Comment on above: Performed By: #### L 5500.0550, L3100.3425, L504.2610, L3300.1800, L3410.2400, L3100.5440, L500.4050, L101.9900, L501.6710, L3410.1000, L3410.0900, L503.0105, L3300.1200, L5500.0300, L3200.1100, L3100.6900 ####[facility] [address] [place], [place], [phone] WHEAT <0.10 Normal Class 0 [facility] Comment on above: Performed By: #### L 5500.0550, L3100.3425, L504.2610, L3300.1800, L3410.2400, L3100.5440, L500.4050, L101.9900, L501.6710, L3410.1000, L3410.0900, L503.0105, L3300.1200, L5500.0300, L3200.1100, L3100.6900 ####[facility] [address] [place], [address] A. alternata IgE Qn (S)Order ed By: Pernell Philippe on 12-28-2024 Alternaria alternata IgE Allergen <0.10 kU/L Class 0 [facility] Addendum DocumentOrdered By: Pernell Philippe on 12-28-2024 Serum Immunofixation Comments Comment . [facility] Comment on above: Protein electrophore sis scan will follow via computer,mail, or service restorer emergency delivery. Albumin Elph [Mass/Vol]Order ed By: Pernell Philippe on 12-28-2024 Albumin [Mass/Vol] 3.6 g/dL 2.9-4.4 [facility] Albumin to globulin ratioOrd ered By: Pernell Philippe on 12-28-2024 Albumin/Globulin [Mass ratio] 1.0 {ratio} 0.9-2.4 [facility] Alpha 1 globulin Elph [Mass/ Vol]Ordered By: Pernell Philippe on 12-28-2024 Etqzs-1-Xpolqjhyc (JAMAAL) 0.3 g/dL 0.0-0.4 [facility] Pezle-6-Yoheklmiv (JAMAAL) 0.9 g/dL 0.4-1.0 [facility] Nauruan house dust mite IgE Qn (S)Ordered By: Pernell Philippe on 12-28-2024 Dermatophagoides farinae Allergen <0.10 kU/L Class 0 [facility] Atypical perinuclear antineu trophil cytoplasmic antibodies measurementOrdered By: Pernell Philippe on 12-28-2024 Atypical p-ANCA <1:20 titer Neg:<1:20 [facility] Comment on above: The atypical pANCA p attern has been observed in asignificant percentage of patients with ulcerative colitis,primary sclerosing cholangitis and autoimmune hepatitis. Beef IgE Qn (S)Ordered By: Francoise Philippe on 12-28-2024 Beef Allergen (RAST) <0.10 kU/L Class 0 [facility] Bermuda grass IgE Qn (S)Orde red By: Pernell Philippe on 12-28-2024 B[place] Grass Allergen <0.10 kU/L Class 0 [facility] Beta globulin Elph [Mass/Vol ]Ordered By: Pernell Philippe on 12-28-2024 Beta-Globulins (JAMAAL) 1.2 g/dL 0.7-1.3 [facility] Bilirubin, totalOrdered By: Pernell Philippe on 12-28-2024 Bilirubin [Mass/Vol] 0.40 mg/dL 0.20-1.00 [facility] Comment on above: For patients on eltr ombopag therapy, use of Dimension [place] TBIL is not recommended. Blood urea nitrogen (BUN)/cr eatinine ratioOrdered By: Pernell Philippe on 12-28-2024 Urea nitrogen/Creatinine [Mass ratio] 7.2 mg/mg Low 10-20 [facility] C-reactive protein measureme nt by high sensitivity methodOrdered By: Pernell Philippe on 12-28-2024 C-Reactive Protein Extended Range < 2.90 mg/L 0.0-3.0 [facility] Comment on above: C-Reactive Protein ( CRP) provides useful information for thediagnosis, therapy and monitoring of inflammatory processesand associated diseases. For the evaluation of Relative Riskfor Cardiovascular Disease, a High Sensitivity CRP (HSCRP)should be ordered. CRPon 12-28-2024 C-REACTIVE PROT < 2.90 Normal 0.0-3.0 [facility] Comment on above: Result Comment: C-Re active Protein (CRP) provides useful information for the diagnosis, therapy and monitoring of inflammatory processes and associated diseases. For the evaluation of Relative Risk for Cardiovascular Disease, a High Sensitivity CRP (HSCRP) should be ordered. Performed By: #### L 5500.0550, L3100.3425, L504.2610, L3300.1800, L3410.2400, L3100.5440, L500.4050, L101.9900, L501.6710, L3410.1000, L3410.0900, L503.0105, L3300.1200, L5500.0300, L3200.1100, L3100.6900 ####[facility] [address] [place], [address] Carbon dioxide measurementOr dered By: Pernell Philippe on 12-28-2024 CO2 [Moles/Vol] 26.0 mmol/L 21.0-32.0 [facility] Cat dander IgE Qn (S)Ordered By: Pernell Philippe on 12-28-2024 Cat Dander IgE Allergen <0.10 kU/L Class 0 [facility] Centromere B antibody assayO rdered By: Pernell Philippe on 12-28-2024 Centromere B Antibody <0.2 AI 0.0-0.9 [facility] Comment on above: Previous reported re sult: TNP AIEdited by: BIA on 01/03/25:0907 AMENDED REPORT 01/03/25906 ANTI-CENT B previously reported as: Test not performed Chloride measurementOrdered By: Pernell Philippe on 12-28-2024 Chloride [Moles/Vol] 104 mmol/L 98-107 [facility] Chocolate IgE Qn (S)Ordered By: Pernell Philippe on 12-28-2024 Chocolate Allergen (RAST) <0.10 kU/L Class 0 [facility] Chromatin antibody assayOrde red By: Pernell Philippe on 12-28-2024 Antichromatin Antibodies <0.2 AI 0.0-0.9 [facility] Comment on above: Previous reported re sult: TNP AIEdited by: BIA on 01/03/25:0907 AMENDED REPORT 01/03/25 09 ANTICHROMATIN previously reported as: Test not performed Codfish IgE Qn (S)Ordered By : Pernell Philippe on 12-28-2024 Codfish Allergen (RAST) <0.10 kU/L Class 0 [facility] Comprehensive Metabolic Prof ilon 12-28-2024 Albumin [Mass/Vol] 4.1 g/dL Normal 3.2-5.0 [facility] Comment on above: Performed By: #### L 5500.0550, L3100.3425, L504.2610, L3300.1800, L3410.2400, L3100.5440, L500.4050, L101.9900, L501.6710, L3410.1000, L3410.0900, L503.0105, L3300.1200, L5500.0300, L3200.1100, L3100.6900 ####[facility] [address] [place], [address] Albumin/Globulin [Mass ratio] 1.0 {ratio} Normal 0.9-2.4 [facility] Comment on above: Performed By: #### L 5500.0550, L3100.3425, L504.2610, L3300.1800, L3410.2400, L3100.5440, L500.4050, L101.9900, L501.6710, L3410.1000, L3410.0900, L503.0105, L3300.1200, L5500.0300, L3200.1100, L3100.6900 ####[facility] [address] [place], [address] ALK P 26 U/L Low 45-117 [facility] Comment on above: Performed By: #### L 5500.0550, L3100.3425, L504.2610, L3300.1800, L3410.2400, L3100.5440, L500.4050, L101.9900, L501.6710, L3410.1000, L3410.0900, L503.0105, L3300.1200, L5500.0300, L3200.1100, L3100.6900 ####[facility] [address] [place], [address] ALT [Catalytic activity/Vol] 26 U/L Normal 13-56 [facility] Comment on above: Performed By: #### L 5500.0550, L3100.3425, L504.2610, L3300.1800, L3410.2400, L3100.5440, L500.4050, L101.9900, L501.6710, L3410.1000, L3410.0900, L503.0105, L3300.1200, L5500.0300, L3200.1100, L3100.6900 ####[facility] [address] [place], [address] AST [Catalytic activity/Vol] 27 U/L Normal 15-37 [facility] Comment on above: Performed By: #### L 5500.0550, L3100.3425, L504.2610, L3300.1800, L3410.2400, L3100.5440, L500.4050, L101.9900, L501.6710, L3410.1000, L3410.0900, L503.0105, L3300.1200, L5500.0300, L3200.1100, L3100.6900 ####[facility] [address] [place], [address] Bilirubin [Mass/Vol] 0.40 mg/dL Normal 0.20-1.00 [facility] Comment on above: Result Comment: For patients on eltrombopag therapy, use of Dimension [place] TBIL is not recommended. Performed By: #### L 5500.0550, L3100.3425, L504.2610, L3300.1800, L3410.2400, L3100.5440, L500.4050, L101.9900, L501.6710, L3410.1000, L3410.0900, L503.0105, L3300.1200, L5500.0300, L3200.1100, L3100.6900 ####[facility] [address] [place], [address] BUN/CRE 7.2 RATIO Low 10-20 [facility] Comment on above: Performed By: #### L 5500.0550, L3100.3425, L504.2610, L3300.1800, L3410.2400, L3100.5440, L500.4050, L101.9900, L501.6710, L3410.1000, L3410.0900, L503.0105, L3300.1200, L5500.0300, L3200.1100, L3100.6900 ####[facility] [address] [place], [address] CA,Total 9.4 mg/dL Normal 8.5-10.1 [facility] Comment on above: Performed By: #### L 5500.0550, L3100.3425, L504.2610, L3300.1800, L3410.2400, L3100.5440, L500.4050, L101.9900, L501.6710, L3410.1000, L3410.0900, L503.0105, L3300.1200, L5500.0300, L3200.1100, L3100.6900 ####[facility] [address] [place], [address] Chloride [Moles/Vol] 104 mmol/L Normal 98-107 [facility] Comment on above: Performed By: #### L 5500.0550, L3100.3425, L504.2610, L3300.1800, L3410.2400, L3100.5440, L500.4050, L101.9900, L501.6710, L3410.1000, L3410.0900, L503.0105, L3300.1200, L5500.0300, L3200.1100, L3100.6900 ####[facility] [address] [place], [address] CO2 [Moles/Vol] 26.0 mmol/L Normal 21.0-32.0 [facility] Comment on above: Performed By: #### L 5500.0550, L3100.3425, L504.2610, L3300.1800, L3410.2400, L3100.5440, L500.4050, L101.9900, L501.6710, L3410.1000, L3410.0900, L503.0105, L3300.1200, L5500.0300, L3200.1100, L3100.6900 ####[facility] [address] [place], [address] Creatinine [Mass/Vol] 0.84 mg/dL Normal 0.55-1.02 [facility] Comment on above: Result Comment: The validity of the calculated GFR GFRAA in patients over 70 years has not been determined. Clinical correlation is essential. Performed By: #### L 5500.0550, L3100.3425, L504.2610, L3300.1800, L3410.2400, L3100.5440, L500.4050, L101.9900, L501.6710, L3410.1000, L3410.0900, L503.0105, L3300.1200, L5500.0300, L3200.1100, L3100.6900 ####[facility] [address] [place], [address] EST GFR - AA 88 mL/min Normal >60 [facility] Comment on above: Result Comment: Afri can Nauruan GFR Calc Performed By: #### L 5500.0550, L3100.3425, L504.2610, L3300.1800, L3410.2400, L3100.5440, L500.4050, L101.9900, L501.6710, L3410.1000, L3410.0900, L503.0105, L3300.1200, L5500.0300, L3200.1100, L3100.6900 ####[facility] [address] [place], [place], [phone] GAP 8 Normal 5-15 [facility] Comment on above: Performed By: #### L 5500.0550, L3100.3425, L504.2610, L3300.1800, L3410.2400, L3100.5440, L500.4050, L101.9900, L501.6710, L3410.1000, L3410.0900, L503.0105, L3300.1200, L5500.0300, L3200.1100, L3100.6900 ####[facility] [address] [place], [address](920) GFR/1.73 sq M.predicted among non-blacks MDRD (S/P/Bld) [Vol rate/Area] 72 mL/min/{1.73_m2} Normal >60 [facility] Comment on above: Result Comment: Non- GFR Calc Performed By: #### L 5500.0550, L3100.3425, L504.2610, L3300.1800, L3410.2400, L3100.5440, L500.4050, L101.9900, L501.6710, L3410.1000, L3410.0900, L503.0105, L3300.1200, L5500.0300, L3200.1100, L3100.6900 ####[facility] [address] [place], [place], [phone] Globulin (S) [Mass/Vol] 4.0 g/dL Normal 2.2-4.2 [facility] Comment on above: Performed By: #### L 5500.0550, L3100.3425, L504.2610, L3300.1800, L3410.2400, L3100.5440, L500.4050, L101.9900, L501.6710, L3410.1000, L3410.0900, L503.0105, L3300.1200, L5500.0300, L3200.1100, L3100.6900 ####[facility] [address] [place], [place], [phone]) Glucose [Mass/Vol] 96 mg/dL Normal 74-106 [facility] Comment on above: Performed By: #### L 5500.0550, L3100.3425, L504.2610, L3300.1800, L3410.2400, L3100.5440, L500.4050, L101.9900, L501.6710, L3410.1000, L3410.0900, L503.0105, L3300.1200, L5500.0300, L3200.1100, L3100.6900 ####[facility] [address] [place], [place], [phone]) Potassium [Moles/Vol] 4.1 mmol/L Normal 3.5-5.1 [facility] Comment on above: Performed By: #### L 5500.0550, L3100.3425, L504.2610, L3300.1800, L3410.2400, L3100.5440, L500.4050, L101.9900, L501.6710, L3410.1000, L3410.0900, L503.0105, L3300.1200, L5500.0300, L3200.1100, L3100.6900 ####[facility] [address] [place], [place], [phone] Sodium [Moles/Vol] 138 mmol/L Normal 136-145 [facility] Comment on above: Performed By: #### L 5500.0550, L3100.3425, L504.2610, L3300.1800, L3410.2400, L3100.5440, L500.4050, L101.9900, L501.6710, L3410.1000, L3410.0900, L503.0105, L3300.1200, L5500.0300, L3200.1100, L3100.6900 ####[facility] [address] [place], [place], [phone](964) T PROT 8.1 g/dL Normal 6.4-8.2 [facility] Comment on above: Performed By: #### L 5500.0550, L3100.3425, L504.2610, L3300.1800, L3410.2400, L3100.5440, L500.4050, L101.9900, L501.6710, L3410.1000, L3410.0900, L503.0105, L3300.1200, L5500.0300, L3200.1100, L3100.6900 ####[facility] [address] [facility] [place], [place], [phone] Urea nitrogen [Mass/Vol] 6 mg/dL Low - [facility] Comment on above: Performed By: #### L 5500.0550, L3100.3425, L504.2610, L3300.1800, L3410.2400, L3100.5440, L500.4050, L101.9900, L501.6710, L3410.1000, L3410.0900, L503.0105, L3300.1200, L5500.0300, L3200.1100, L3100.6900 ####[facility] [address] [facility] [place], [place], [phone] [place] IgE Qn (S)Ordered By: Francoise Philippe on 12-28-2024 [place] Allergen (RAST) <0.10 kU/L Class 0 [facility] Cow milk IgE Qn (S)Ordered B y: Pernell Philippe on 12-28-2024 Cow's Milk Allergen <0.10 kU/L Class 0 [facility] DNA double strand Ab Qn (S)O rdered By: Pernell Philippe on 12-28-2024 Anti-Double Strand DNA Antibody 1 IU/mL 0-9 [facility] Comment on above: Negative <5 Equivoca l 5 - 9 Positive >9 Dog epithelium IgE Qn (S)Ord ered By: Pernell Philippe on 12-28-2024 Dog Epithelia Allergen <0.10 kU/L Class 0 [facility] Endomysial IgA antibody assa yOrdered By: Pernell Philippe on 12-28-2024 Endomysial IgA Antibody Negative Negative W [facility] Erythrocyte Sed Rateon 02-18 -2025 SED RATE 13 mm/hr Normal 0-30 [facility] Comment on above: Performed By: #### L 5500.0550, L3100.3425, L504.2610, L3300.1800, L3410.2400, L3100.5440, L500.4050, L101.9900, L501.6710, L3410.1000, L3410.0900, L503.0105, L3300.1200, L5500.0300, L3200.1100, L3100.6900 #### [facility] [address] [place], [address] Erythrocyte sedimentation ra teOrdered By: Pernell Philippe on 12-28-2024 ESR (Bld) [Velocity] 13 mm/h 0-30 [facility] Estimated glomerular filtrat ion rate (GFR) AmericanOrdered By: Pernell Philippe on 12-28-2024 Estimated GFR (MDRD) Amer 88 mL/min >60 [facility] Comment on above: GFR Calc house dust mite IgE Qn (S)Ordered By: Pernell Philippe on 12-28-2024 Dermatophagoides pteronyss Allergen <0.10 kU/L Class 0 [facility] Gamma globulin Elph [Mass/Vo l]Ordered By: Pernell Philippe on 12-28-2024 Gamma Globulins (JMAAAL) 1.6 g/dL 0.4-1.8 [facility] Gastrin [Mass/Vol]Ordered By : Pernell Philippe on 12-28-2024 Gastrin 92 pg/mL 0-115 [facility] Comment on above: Siemens Immulite 200 0 Immunochemiluminometric assay (ICMA)Values obtained with different assay methods or kits cannotbe used interchangeably. Results cannot be interpreted asabsolute evidence of the presence or absence of malignantdisease. Gastrin, serumOrdered By: Ra mike Philippe on 12-28-2024 Gastrin [Mass/Vol] 92 pg/mL 0-115 [facility] Comment on above: Siemens Immulite 200 0 Immunochemiluminometric assay (ICMA)Values obtained with different assay methods or kits cannotbe used interchangeably. Results cannot be interpreted asabsolute evidence of the presence or absence of malignantdisease. Gastroenterology Visit Repor ton 12-28-2024 Gastroenterology Visit Report [facility]astroenterology [address] [place] [address] OFFICE VISIT Date of Service: 12/28/24 MR#: [id number] Acct: [id number] Name: ЮЛИЯ PRASAD Rep #: [id number] : 1955 Provider: Pernell Philippe DO Age/Sex: 69/F Location: [facility] Status: Signed Intake Vital Signs 02/05/23 18:16 Height 5 ft 2 in Intake Visit Reasons: GERD, DYSPHAGIA Allergies ciprofloxacin (From Cipro) Allergy (Verified 11/08/24 16:33) Rash ciprofloxacin HCl (From Cipro) Allergy (Verified 11/08/24 16:33) Rash clindamycin Allergy (Verified 11/08/24 16:33) throat swelling-see comment section fluoxetine HCl (From Prozac) Allergy (Verified 11/08/24 16:33) Rash metronidazole Allergy (Verified 11/08/24 16:33) Anaphylaxis Penicillins Allergy (Verified 11/08/24 16:33) Rash Sulfa (Sulfonamide Antibiotics) Allergy (Verified 11/08/24 16:33) Rash adhesive Adverse Reaction (Verified 11/08/24 16:33) redness with bandaids amoxicillin trihydrate (From Augmentin) Adverse Reaction (Verified 11/08/24 16:33) thrush/yeast infection potassium clavulanate (From Augmentin) Adverse Reaction (Verified 11/08/24 16:33) thrush/yeast infection Medications ???Medication ???Instructions ???Recorded ???Confirmed ???Type coenzyme Q10 100 mg capsule (Co 100 mg PO BID supplement 06/22/16 12/28/24 History Q-10) montelukast 10 mg tablet 10 mg PO QHS allergies 10/06/17 History trazodone 100 mg tablet 100 mg PO QHS sleep 10/06/1712/28 History lisinopril 5 mg tablet 5 mg PO DAILY #30 tabs 04/02/18 Rx ondansetron 4 mg disintegrating 4 mg PO Q8H PRN PRN Nausea #10 tab s 04/11/18 12/28/24 Rx tablet cholecalciferol (vitamin D3) 25 1,000 unit PO DAILY 08/12/1912/28 History mcg (1,000 unit) capsule furosemide 20 mg tablet 20 mg PO DAILY 08/12/19 12/28/24 H istory metformin 500 mg tablet 500 mg PO TID 08/12/19 12/28/24 Hi story pantoprazole 40 mg tablet,delayed 40 mg PO DAILY 08/12/19 12/28/24 History release hydrocodone-acetaminophe n 5-325mg 1 tab PO Q6H PRN PRN Pain 3 days 01/12/23 12/28/24 Rx 5mg-325mg #10 TABLETS albuterol sulfate 90 mcg/actuation 1 inh inhalation ONCE 11/08/24 0 12/28/24 History aerosol inhaler dulaglutide 0.75 mg/0.5 mL 0.75 mg subcut QWEEK 11/08/2412/11 History subcutaneous pen injector (Trulicity) famotidine 20 mg tablet 20 mg PO QDAY 11/08/24 12/28/24 Hi story fluticasone 250 mcg-salmeterol 50 1 inh inhalation BID 11/08/24 History mcg/dose blistr powdr for inhalation lorazepam 0.5 mg tablet 0.5 mg PO QDAY PRN 11/08/24 History meloxicam 15 mg tablet 15 mg PO QDAY 11/08/24 12/28/24 Hi story rosuvastatin 20 mg tablet 20 mg PO QDAY 11/08/24 12/28/24 Hi story Have you fallen in the past year?: No PFSH Medical History (Updated 12/28/24 @ 12:[address] Gimenez Friend, DO) Dysphagia Depression Anxiety Sore throat Surgical History (Updated 11/08/24 @ 16:33 by Socorro Bland) H/O: hysterectomy Social History (Updated 02/05/23 @ 18:[address] Satya Cotton MD) household members: none Smoking Status: Current every day smoker tobacco type: cigarettes HPI HPI Details: ЮЛИЯ PRASAD, is a 69 F who presents to the office today for initial consult. Barium Swallow X-Ray 10.18.24 Normal plain film x-ray examination (barium swallow) of the esophagus. *BGI established 2.18.25 pt reports that for the past few years she will haves episodes where she will have emesis that is yellow and slimy like snot. Pt reports that she always feels like there is something stuck in her chest. Reports alternating bowel movements and that she has to massage her sides to get her bowels to move. Pt reports that she has had several colonoscopies and EGDs and believes her last scopes were 2-3 years ago; pt reports her mother had colon cancer. Pt reports that she does not have a PCP and would like a referral to one. ROS Const Constitutional: No fatigue, fever(s) or weight change ENT ENT: No difficulty swallowing Gastro GI: No abdominal pain, belching, bloating, change in bowel habits, change in stool character, coffee ground emesis, constipation, cramping, diarrhea, heartburn, difficulty swallowing, feeling full early, excessive flatus, incontinent of stools, Vomiting blood/hematemesis, Blood in stool, loose stools, Black,tarry stools, nausea/dyspepsia, pain with swallowing, vomiting or other Musc Musculoskeletal: No joint pain Skin Skin: No yellowing of the eye or itchy eyes Psych Psychiatric: No anxiety and No depression Endo Endocrine: No fatigue or weight change Aller/Imm Allergy/Immunologic: No itchy eyes Jeet/Lymp Hematologic/Lymphatic: No easy bleeding or easy bruising Exam Const Genera (more content not included)... Normal [facility] Glomerular filtration rate ( GFR) estimationOrdered By: Pernell Friend on 12-28-2024 Estimated GFR (MDRD) Non-Af Amer 72 mL/min >60 [facility] Comment on above: Non- GFR Calc GFR/1.73 sq M.predicted among non-blacks MDRD (S/P/Bld) [Vol rate/Area] 72 mL/min/{1.73_m2} >60 [facility] Comment on above: Non- GFR Calc Glucose measurementOrdered B y: Pernell Friend on 12-28-2024 Glucose [Mass/Vol] 96 mg/dL 74-106 [facility] IgA [Mass/Vol]Ordered By: Ra mike Philippe on 12-28-2024 Immunoglobulin A 258 mg/dL 87-352 [facility] IgEOrdered By: Pernell Dorothy jose on 12-28-2024 IgE 48 IU/mL 6-495 [facility] Immunoglobulin E 48 IU/mL 6-495 [facility] IgG [Mass/Vol]Ordered By: Ra mike Philippe on 12-28-2024 Immunoglobulin G 1495 mg/dL 586-1602 [facility] Immunoglobulin M measurement Ordered By: Pernell Philippe on 12-28-2024 Immunoglobulin M 131 mg/dL 26-217 [facility] Interpretation IEP [Interp]O rdered By: Pernell Philippe on 12-28-2024 Immunofixation Screen Comment: . [facility] Comment on above: Presence of monoclon al protein is unclear at this time. Suggestrepeat in 3 to 6 months if clinically indicated. Interpretation of serum or p lasma protein pattern by immunofixation (narrative resultOrdered By: Pernell Philippe on 12-28-2024 Protein Fractions Immunofixation Helder [Interp] Not Observed g/dL Not Observed [facility] Intrinsic factor abOrdered B y: Pernell Philippe on 12-28-2024 Intrinsic Factor Antibody 1.0 AU/mL 0.0-1.1 [facility] Comment on above: Performed at: [address] [id number] Director: Cleveland Poon PhD, Phone: [phone] at: [facility] Lab[address] [id number] Director: Jerrell Napoles MD, Phone: [phone] Soheila-1 antibody assayOrdered B y: Pernell Philippe on 12-28-2024 SOHEILA-1 Antibody <0.2 AI 0.0-0.9 [facility] Comment on above: Previous reported re sult: TNP AIEdited by: BIA on 01/03/25:0907 AMENDED REPORT 01/03/25 09 ANTI-SOHEILA previously reported as: Test not performed [place] blue grass IgE Qn ( S)Ordered By: Pernellhawa Philippe on 12-28-2024 [place] Blue (April) Grass IgE Ab <0.10 kU/L Class 0 [facility] LDHon 12-28-2024 LDH 169 U/L Normal 84-246 [facility] Comment on above: Order Comment: 1 Performed By: #### L 5500.0550, L3100.3425, L504.2610, L3300.1800, L3410.2400, L3100.5440, L500.4050, L101.9900, L501.6710, L3410.1000, L3410.0900, L503.0105, L3300.1200, L5500.0300, L3200.1100, L3100.6900 ####[facility] [address] [place], [place], [address] Laboratory - Chemistry and C hemistry - challengeOrdered By: Pernell Philippe on 12-28-2024 AST [Catalytic activity/Vol] 27 U/L 15-37 [facility] Laboratory - Miscellaneous t estsOrdered By: Pernell Philippe on 12-28-2024 Service comment (Unsp spec) [Interp] Comment . [facility] Comment on above: Levels of Specific I gE Class Description of Class ----- < 0.10 0 Negative 0.10 - 0.31 0/I Equivocal/Low 0.32 - 0.55 I Low 0.56 - 1.40 II Moderate 1.41 - 3.90 III High 3.91 - 19.00 IV Very High 19.01 - 100.00 V Very High >100.00 Very High Lactate dehydrogenase (LDH) measurementOrdered By: Pernell Philippe on 12-28-2024 LDH [Catalytic activity/Vol] 169 U/L 84-246 [facility] Mouse urine IgEOrdered By: Francoise Philippe on 12-28-2024 Mouse Urine Allergen IgE Antibody <0.10 kU/L Class 0 [facility] Comment on above: Performed at: [address] [place] [id number] Director: Cleveland Poon PhD, Phone: [phone] at: [address] [id number] Director: Jerrell Napoles MD, Phone: [phone] Neutrophil cytoplasmic Ab.cl assic Qn (S)Ordered By: Pernell Philippe on 12-28-2024 Cytoplasmic ANCA (c-ANCA) Antibody <1:20 titer Neg:<1:20 [facility] Neutrophil cytoplasmic Ab.pe rinuclear IF (S) [Titer]Ordered By: Pernell Philippe on 12-28-2024 Perinuclear ANCA (p-ANCA) Antibody <1:20 titer Neg:<1:20 [facility] Comment on above: The presence of posi tive fluorescence exhibiting P-ANCA orC-ANCA patterns alone is not specific for the diagnosis ofWegener's Granulomatosis (WG) or microscopic polyangiitis.Decisions about treatment should not be based solely onANCA IFA results. The International ANCA Group Consensusrecommends follow up testing of positive sera with both MT-3 and MPO-ANCA enzyme immunoassays. As many as 5% serumsamples are positive only by EIA. Ref. AM J Clin Dymiyt6100;111:507-513. No Panel InformationOrdered By: Pernell Philippe on 12-28-2024 Addendum Document Comment . [facility] Comment on above: Protein electrophore sis scan will follow via computer,mail, or service restorer emergency delivery. Parietal cell Ab Qn (S)Order ed By: Pernell Philippe on 12-28-2024 Anti-Parietal Cell Antibody 1.7 Units 0.0-20.0 [facility] Comment on above: Negative 0.0 - 20.0 Equivocal 20.1 - 24.9 Positive >24.9Parietal Cell Antibodies are found in 90% of patientswith pernicious anemia and 30% of first degreerelatives with pernicious anemia. Peanut IgE Qn (S)Ordered By: Pernell Philippe on 12-28-2024 Peanut Allergen (RAST) <0.10 kU/L Class 0 [facility] Pork IgE Qn (S)Ordered By: Francoise Philippe on 12-28-2024 Pork Allergen (RAST) <0.10 kU/L Class 0 [facility] Potassium measurementOrdered By: Pernell Philippe on 12-28-2024 Potassium [Moles/Vol] 4.1 mmol/L 3.5-5.1 [facility] Protein Fractions Immunofixa tion Helder [Interp]Ordered By: Pernell Philippe on 12-28-2024 M-Lalo (JAMAAL) Not Observed g/dL Not Observed [facility] RN INTAKE abOrdered By: Pernell Rajan iend on 12-28-2024 RN INTAKE Antibody <0.2 AI 0.0-0.9 [facility] Comment on above: Previous reported re sult: TNP AIEdited by: BIA on 01/03/25:09 AMENDED REPORT 01/03/25906 RN INTAKE Ab previously reported as: Test not performed SCL-70 extractable nuclear A b Qn (S)Ordered By: Pernell Philippe on 12-28-2024 Scl-70 (Scleroderma) Antibody <0.2 AI 0.0-0.9 [facility] SS-A IgG antibody assayOrder ed By: Pernell Philippe on 12-28-2024 SS-A/Ro IgG Antibody < 0.2 AI 0.0-0.9 [facility] Comment on above: Previous reported re sult: TNP AIEdited by: BIA on 01/03/25:0907 AMENDED REPORT 01/03/25906 Anti-SS-A previously reported as: Test not performed SS-B IgG antibody assayOrder ed By: Pernell Philippe on 12-28-2024 SS-B/La IgG Antibody < 0.2 AI 0.0-0.9 [facility] Comment on above: Previous reported re sult: TNP AIEdited by: BIA on 01/03/25:09 AMENDED REPORT 01/03/25 09 Anti-SS-B previously reported as: Test not performed [place] IgE Qn (S)Ordered By: Pernell Philippe on 12-28-2024 [place] Allergen IgE Antibody <0.10 kU/L Class 0 [facility] Serum Berm[place] grass IgE anti body assay (units/volume)Ordered By: Pernell Philippe on 12-28-2024 B[place] grass IgE Qn (S) <0.10 kU/L Class 0 [facility] Serum DNA double strand anti body assay (units/volume)Ordered By: Pernell Philippe on 12-28-2024 DNA double strand Ab Qn (S) 1 [IU]/mL 0-9 [facility] Comment on above: Negative <5 Equivoca l 5 - 9 Positive >9 Serum Serbian plantain speci fic IgE antibody assayOrdered By: Pernell Philippe on 12-28-2024 Serbian Plantain Allergen (RAST) <0.10 kU/L Class 0 [facility] Serum house dust mi te IgE antibody assay (units/volume)Ordered By: Pernell Philippe on 12-28-2024 house dust mite IgE Qn (S) <0.10 kU/L Class 0 [facility] Serum [place] blue grass Ig E antibody assay (units/volume)Ordered By: Pernell Philippe on 12-28-2024 [place] blue grass IgE Qn (S) <0.10 kU/L Class 0 [facility] Serum Scl-70 antibody assay (units/volume)Ordered By: Pernell Philippe on 12-28-2024 SCL-70 extractable nuclear Ab Qn (S) <0.2 AI 0.0-0.9 [facility] Serum albumin/globulin ratio Ordered By: Pernell Philippe on 12-28-2024 Albumin/Globulin (JAMAAL) 0.9 0.7-1.7 [facility] Serum anion gap measurementO rdered By: Pernell Philippe on 12-28-2024 Anion gap [Moles/Vol] 8 mmol/L 5-15 [facility] Serum beef IgE antibody assa y (units/volume)Ordered By: Pernell Philippe on 12-28-2024 Beef IgE Qn (S) <0.10 kU/L Class 0 [facility] Serum cat dander IgE antibod y assay (units/volume)Ordered By: Pernell Philippe on 12-28-2024 Cat dander IgE Qn (S) <0.10 kU/L Class 0 [facility] Serum classic neutrophil cyt oplasmic antibody assay (units/volume)Ordered By: Pernell Philippe on 12-28-2024 Neutrophil cytoplasmic Ab.classic Qn (S) <1:20 titer Neg:<1:20 [facility] Serum codfish IgE antibody a ssay (units/volume)Ordered By: Pernell Philippe on 12-28-2024 Codfish IgE Qn (S) <0.10 kU/L Class 0 [facility] Serum common/short ragweed s pecific IgE antibody assayOrdered By: Pernell Philippe on 12-28-2024 Common Ragweed (Short) Allergen <0.10 kU/L Class 0 [facility] Serum corn IgE antibody assa y (units/volume)Ordered By: Pernell Philippe on 12-28-2024 [place] IgE Qn (S) <0.10 kU/L Class 0 [facility] Serum cow milk IgE antibody assay (units/volume)Ordered By: Pernell Philippe on 12-28-2024 Cow milk IgE Qn (S) <0.10 kU/L Class 0 [facility] Serum dog epithelium IgE ant ibody assay (units/volume)Ordered By: Pernell Philippe on 12-28-2024 Dog epithelium IgE Qn (S) <0.10 kU/L Class 0 [facility] Serum globulin measurement ( mass/volume)Ordered By: Pernell Philippe on 12-28-2024 Globulin (S) [Mass/Vol] 4.1 g/dL High 2.2-3.9 W [facility] Serum mussel specific IgE an tibody assayOrdered By: Pernell Philippe on 12-28-2024 Mussel Allergen IgE Antibody <0.10 kU/L Class 0 [facility] Serum or plasma IgA measurem ent (mass/volume)Ordered By: Pernell Philippe on 12-28-2024 IgA [Mass/Vol] 258 mg/dL 87-352 [facility] Serum or plasma IgG measurem ent (mass/volume)Ordered By: Pernell Philippe on 12-28-2024 IgG [Mass/Vol] 1495 mg/dL 586-1602 [facility] Serum or plasma alanine benoit otransferase (ALT) measurementOrdered By: Pernell Philippe on 12-28-2024 ALT [Catalytic activity/Vol] 26 U/L 13-56 [facility] Serum or plasma albumin bernard urement (mass/volume)Ordered By: Pernell Philippe on 12-28-2024 Albumin [Mass/Vol] 4.1 g/dL 3.2-5.0 [facility] Serum or plasma alkaline bridget sphatase measurementOrdered By: Pernell Philippe on 12-28-2024 ALP [Catalytic activity/Vol] 26 U/L Low 45-117 [facility] Serum or plasma alpha 1 glob ulin measurement by electrophoresis (mass/volume)Ordered By: Pernelllula Philippe on 12-28-2024 Alpha 1 globulin Elph [Mass/Vol] 0.3 g/dL 0.0-0.4 [facility] Alpha 1 globulin Elph [Mass/Vol] 0.9 g/dL 0.4-1.0 [facility] Serum or plasma angiotensin converting enzyme measurement (enzymatic activity/volume)Ordered By: Pernell Philippe on 12-28-2024 Angiotensin converting enzyme [Catalytic activity/Vol] 56 U/L 14-82 [facility] Serum or plasma beta globuli n measurement by electrophoresis (mass/volume)Ordered By: Pernell Philippe on 12-28-2024 Beta globulin Elph [Mass/Vol] 1.2 g/dL 0.7-1.3 [facility] Serum or plasma calcium bernard urement (mass/volume)Ordered By: Pernell Philippe on 12-28-2024 Calcium [Mass/Vol] 9.4 mg/dL 8.5-10.1 [facility] Serum or plasma creatinine m easurement (mass/volume)Ordered By: Pernell Philippe on 12-28-2024 Creatinine [Mass/Vol] 0.84 mg/dL 0.55-1.02 [facility] Comment on above: The validity of the calculated GFR & GFRAA in patients over 70 years has not been determined. Clinical correlation is essential. Serum or plasma gamma globul in measurement by electrophoresis (mass/volume)Ordered By: Pernell Philippe on 12-28-2024 Gamma globulin Elph [Mass/Vol] 1.6 g/dL 0.4-1.8 [facility] Serum or plasma immunoelectr ophoresis interpretation (nominal result)Ordered By: Pernell Philippe on 12-28-2024 Interpretation IEP [Interp] Comment: . [facility] Comment on above: Presence of monoclon al protein is unclear at this time. Suggestrepeat in 3 to 6 months if clinically indicated. Serum or plasma protein bernard urement (mass/volume)Ordered By: Pernell Philippe on 12-28-2024 Protein [Mass/Vol] 7.7 g/dL 6.0-8.5 [facility] Serum or plasma urea nitroge n measurement (mass/volume)Ordered By: Pernell Philippe on 12-28-2024 Urea nitrogen [Mass/Vol] 6 mg/dL Low - [facility] Serum parietal cell antibody assay (units/volume)Ordered By: Pernell Philippe on 12-28-2024 Parietal cell Ab Qn (S) 1.7 Units 0.0-20.0 [facility] Comment on above: Negative 0.0 - 20.0 Equivocal 20.1 - 24.9 Positive >24.9Parietal Cell Antibodies are found in 90% of patientswith pernicious anemia and 30% of first degreerelatives with pernicious anemia. Serum peanut IgE antibody as say (units/volume)Ordered By: Pernell Philippe on 12-28-2024 Peanut IgE Qn (S) <0.10 kU/L Class 0 [facility] Serum perinuclear neutrophil cytoplasmic antibody titer by immunofluorescenceOrdered By: Pernell Philippe on 12-28-2024 Neutrophil cytoplasmic Ab.perinuclear IF (S) [Titer] <1:20 titer Neg:<1:20 [facility] Comment on above: The presence of posi tive fluorescence exhibiting P-ANCA orC-ANCA patterns alone is not specific for the diagnosis ofWegener's Granulomatosis (WG) or microscopic polyangiitis.Decisions about treatment should not be based solely onANCA IFA results. The International ANCA Group Consensusrecommends follow up testing of positive sera with both MT-3 and MPO-ANCA enzyme immunoassays. As many as 5% serumsamples are positive only by EIA. Ref. AM J Clin [id number];111:507-513. Serum pork IgE antibody assa y (units/volume)Ordered By: Pernell Philippe on 12-28-2024 Pork IgE Qn (S) <0.10 kU/L Class 0 [facility] Serum salmon IgE antibody as say (units/volume)Ordered By: Pernell Philippe on 12-28-2024 [place] IgE Qn (S) <0.10 kU/L Class 0 [facility] Serum shrimp specific IgE an tibody assayOrdered By: Pernell Philippe on 12-28-2024 Shrimp Allergen <0.10 kU/L Class 0 [facility] Serum soybean IgE antibody a ssay (units/volume)Ordered By: Pernell Philippe on 12-28-2024 Soybean IgE Qn (S) <0.10 kU/L Class 0 [facility] Serum tissue transglutaminas e (tTG) IgA antibody assay (units/volume)Ordered By: Pernell Philippe on 12-28-2024 tTG IgA Qn (S) <2 U/mL 0-3 [facility] Comment on above: Negative 0 - 3 Weak Positive 4 - 10 Positive >10 Tissue Transglutaminase (tTG) has been identified as the endomysial antigen. Studies have demonstr- ated that endomysial IgA antibodies have over 99% specificity for gluten sensitive enteropathy. Serum tuna IgE antibody assa y (units/volume)Ordered By: Pernell Philippe on 12-28-2024 Tuna IgE Qn (S) <0.10 kU/L Class 0 [facility] Serum wheat IgE antibody ass ay (units/volume)Ordered By: Pernell Philippe on 12-28-2024 Wheat IgE Qn (S) <0.10 kU/L Class 0 [facility] Serum white elm IgE antibody assay (units/volume)Ordered By: Pernell Philippe on 12-28-2024 White Elm IgE Qn (S) <0.10 kU/L Class 0 [facility] Serum white oak IgE antibody assay (units/volume)Ordered By: Pernell Philippe on 12-28-2024 [place] IgE Qn (S) <0.10 kU/L Class 0 [facility] Serum whole egg IgE antibody assay (units/volume)Ordered By: Pernell Philippe on 12-28-2024 Whole Egg IgE Qn (S) <0.10 kU/L Class 0 [facility] Service comment (Unsp spec) [Interp]Ordered By: Pernell Philippe on 12-28-2024 RAST Comment Comment . [facility] Comment on above: Levels of Specific I gE Class Description of Class ----- < 0.10 0 Negative 0.10 - 0.31 0/I Equivocal/Low 0.32 - 0.55 I Low 0.56 - 1.40 II Moderate 1.41 - 3.90 III High 3.91 - 19.00 IV Very High 19.01 - 100.00 V Very High >100.00 Very High [place] antibody assayOrdered By: Pernell Philippe on 12-28-2024 SM Antibody <0.2 AI 0.0-0.9 [facility] Comment on above: Previous reported re sult: TNP AIEdited by: BIA on 01/03/25:0907 AMENDED REPORT 01/03/25 0907 BÁRBARA Ab previously reported as: Test not performed Sodium levelOrdered By: Junior Lim on 12-28-2024 Sodium [Moles/Vol] 138 mmol/L 136-145 [facility] Soybean IgE Qn (S)Ordered By : Pernell Philippe on 12-28-2024 Soybean Allergen (RAST) <0.10 kU/L Class 0 [facility] Total proteinOrdered By: Roberto Philippe on 12-28-2024 Protein [Mass/Vol] 8.1 g/dL 6.4-8.2 [facility] Tuna IgE Qn (S)Ordered By: Francoise Philippe on 12-28-2024 Tuna Allergen (RAST) <0.10 kU/L Class 0 [facility] Vitamin B12on 12-28-2024 Cobalamin (Vitamin B12) [Mass/Vol] 333 pg/mL Normal 211-911 [facility] Comment on above: Performed By: #### L 5500.0550, L3100.3425, L504.2610, L3300.1800, L3410.2400, L3100.5440, L500.4050, L101.9900, L501.6710, L3410.1000, L3410.0900, L503.0105, L3300.1200, L5500.0300, L3200.1100, L3100.6900 ####[facility] [id number] [place], [place], [id number] Vitamin B12 measurementOrder ed By: Pernell Philippe on 12-28-2024 Cobalamin (Vitamin B12) [Mass/Vol] 333 pg/mL 211-911 [facility] Wheat IgE Qn (S)Ordered By: Pernell Philippe on 12-28-2024 Wheat Allergen (RAST) <0.10 kU/L Class 0 [facility] White Elm IgE Qn (S)Ordered By: Pernell Philippe on 12-28-2024 [place] Allergen <0.10 kU/L Class 0 [facility] [place] IgE Qn (S)Ordered By: Pernelllula Philippe on 12-28-2024 [place] Tree Allergen <0.10 kU/L Class 0 [facility] Whole Egg IgE Qn (S)Ordered By: Pernell Philippe on 12-28-2024 Egg Whole Allergen <0.10 kU/L Class 0 [facility] tTG IgA Qn (S)Ordered By: Ra mike Philippe on 12-28-2024 Tissue Transglutaminase IgA Ab <2 U/mL 0-3 [facility] Comment on above: Negative 0 - 3 Weak Positive 4 - 10 Positive >10 Tissue Transglutaminase (tTG) has been identified as the endomysial antigen. Studies have demonstr- ated that endomysial IgA antibodies have over 99% specificity for gluten sensitive enteropathy. Esophagus Dual Contraston Esophagus Dual Contrast [facility] [address] [place], [place] [address] Esophagus Dual Contrast MR#: [id number] Acct: [id number] Name: ЮЛИЯ PRASAD Rep #: [id number] : 1955 F 69 From: Pavel retana MD PCP: Alexus Machuca DO Status: REG CLI Study: Esophagus Dual Contrast Date of Exam: 10/18/24 Exam# [id number] Ordering Dr: Juarez Harris MD [id number] STUDY: X-RAY - ESOPHAGUS (BARIUM SWALLOW) WITH FLUOROSCOPY REASON FOR EXAM: Female, 69 years old. Dysphagia, unspecified TECHNIQUE: 48 fluoroscopic view(s) of the esophagus were obtained following swallowing of barium. FLUOROSCOPY TIME (if supplied): (32nd) minutes/seconds. 4.1 mGy. COMPARISON: None. FINDINGS: There is no demonstrated esophageal foreign body. There is no demonstrated stricture or mucosal abnormality. Normal gastroesophageal junction, without a demonstrated hiatal hernia. The patient ingested a 12 mm tablet of barium. There was transitory delay in the passage of the 12 mm tablet at the level of the gastroesophageal junction. There is atherosclerotic calcification of the aortic arch with tortuosity of the descending aorta. Normal visualized pulmonary parenchyma. There are diffuse degenerative changes of the visualized thoracic spine. RAD/Esophagus Dual Contrast IMPRESSION: Normal plain film x-ray examination (barium swallow) of the esophagus. Electronically Signed: Pavel Carrero MD at 10:57 EST , CC: Dr. Juarez Harris MD; Alexus Machuca DO Promotional Demonstrator: Signed Normal [facility] Culture, Throaton 10-02-2024 CUT Mixed normal pierre. No Haemophilus, Streptococcus pneumoniae, beta-hemolytic Streptococcus or Staphylococcus aureus isolated. Normal [facility] Comment on above: Performed By: #### M 100.1000 #### [facility] [place], [address] CNOVon 09-10-2024 CN Office Visit (UCWSTR ) -------- ЮЛИЯ PRASAD Matt ([id number]) 1955 F Date Time Provider Department 09/10/24 2:30 PM JUAREZ VELASCO [facility] During your visit today, we recorded the following information about you: Temperature Pulse Respiration Blood pressure 97.2 degrees 93/minute 18/minute 120/72 Weight 61.5 kg Juarez Velasco MD 09/10/2024 3:32 PM Signed Patient presents with: Sore Throat: ERVIN x1 month HPI: Feeling sore throat for 1 month. Positive symptoms: Sore throat, neck tenderness, blister in the right throat, bilateral Earache, Sinus pressure, Nasal Congestion, Rhinorrhea, Fatigue, sneezing, Headache, Nausea (for years), Vomiting (1-2x/wk), Negative symptoms: Fever, OTC: lozenges, throat spray, singulair, protonix, pepcid MEDICATIONS: Current Outpatient Medications Medication Sig ondansetron orally disintegrating (ZOFRAN ODT) 4 mg disintegrating tablet Take 1 tablet by mouth every 8 hours as needed. metFORMIN (GLUCOPHAGE) 500 mg tablet Take 1 tablet by mouth two times a day with meals. dulaglutide (TRULICITY) 1.5 mg/0.5 mL pen injector Inject 1.5 mg subcutaneously one time a week. Inject once per week. Discard Pen After blood sugar diagnostic (ONETOUCH VERIO TEST STRIPS) test strip Test blood sugar(s) 3 times daily. Dx: Type 2 DM - Controlled E11.9 Insulin: No meloxicam (MOBIC) 15 mg tablet Take 1 tablet by mouth once daily. rosuvastatin (CRESTOR) 20 mg tablet Take 1 tablet by mouth daily at bedtime. clobetasol (TEMOVATE) 0.05 % cream apply to rash on legs and hands twice daily 5 days a week as needed. Apply twice daily as needed, up to 21 days per month. Avoid application to the face, armpits, groin. albuterol HFA (PROVENTIL HFA, VENTOLIN HFA) 90 [...] Take 1 capsule by mouth twice daily. (Patient taking differently: Take 100 mg by mouth once daily.) Cholecalciferol, Vitamin D3, 25 mcg (1,000 unit) cap Take 1 capsule by mouth once daily. fluticasone-salmeterol (ADVAIR, WIXELA) 250-50 mcg/dose Inhale 1 Puff as instructed twice daily. blood sugar diagnostic (BLOOD GLUCOSE TEST) test strip Test blood sugar(s) 3 times daily. Dx: Type 2 DM - Controlled E11.9 Insulin: No: True Matrix Lancets lancets Test blood sugar(s) 3 times daily. Dx: Type 2 DM - Controlled E11.9 Insulin: No True matrix Blood-Glucose Meter monitoring kit Glucose Meter of Choice - Kit - Dx: Type 2 DM - Controlled E11.9 COMPOUNDED PRESCRIPTION Tens unit DX: DDD of neck and lumbar spine aspirin, enteric coated (ASPIRIN, ENTERIC COATED) 81 mg EC tablet Take 81 mg by mouth once daily. traZODone 100 mg tablet Take 100 mg by mouth daily at bedtime. One or two No current facility-administered medications for this visit. ALLERGIES: ALLERGIES Allergen Reactions Metronidazole Anaphylaxis Adhesive Other: See Comments redness with bandaids Augmentin [Amoxicil* Other: See Comments Thrush/yeast infection Ciprofloxacin Rash Clindamycin Swelling throat swelling Penicillins Intolerance Yeast infections Prozac [Fluoxetine * Rash Sulfa Dyne Rash VITALS: BP 120/72 Pulse 93 Temp 36.2 ?C (97.2 ?F) Resp 18 Wt 61.5 kg (135 lb 9.3 oz) SpO2 98% BMI 25.27 kg/m? PHYSICAL EXAM: GEN: mildly ill appearing HEENT: PERRL, EOMI, conjunctiva clear Ears: canals clear. TMs without erythema, bulge, or effusion Sinuses: non-tender frontal sinus, non-tender maxillary sinuses Throat: moist mucous membranes, mild erythema, 3mm collection of lymphoid tissue right tonsillar bed, no exudate Neck: supple, no thyromegaly, tender submandibular and anterior chain tissues. HEART: regular rate and rhythm, no murmurs LUNGS: clear to auscultation, no wheezes or crackles, no increased WOB ASSESSMENT/PLAN: 1. Sore throat - ICD9: 462, ICD10: J02.9 (primary diagnosis) 2. Gastroesophageal reflux disease, unspecified whether esophagitis present - ICD9: 530.81, ICD10: K21.9 Strep test negative. Suspect reflux is contributing to pharyngitis. Continue antacids. Recommended elevated head of bed. Consider GI consult. She has seen ENT in [place] and may follow up there for neck tenderness. Add an OTC antihistamine such as claritin or zyrtec to help with allergy related head congestion. Patient has been attempting to get re-established with primary care but currently cannot get an appointment sooner than January. Juarez Velasco MD Allergies As of Date: 09/10/2024 Noted Allergy React (more content not included)... Normal [facility] STREP A MOLECULAR (POC)on Procedural Control Valid [facility] Strep A (POCT) Negative Negative [facility] CNOVSPon 08-17-2024 CNOVSP Visit (SP) Office (HEMJARROD) -------- ЮЛИЯ PRASAD ([id number]) 1955 F Date Time Provider Department 08/17/24 4:00 PM MASCI, CRISTHIAN A HEMAWS During your visit today, we recorded the following information about you: Temperature Pulse Blood pressure Weight 97.2 degrees 94/minute 100/63 61.5 kg Cristhian Smith DO 08/18/2024 4:20 PM Signed Hematologic problem(s): 1) IgG lambda MGUS. HPI: The patient is a 69-year-old female with a past medical history as outlined below. Establish with new PCP prior to referral here. Had lab work done through [facility] that showed an increase in serum globulin level. Protein electrophoresis was ordered and demonstrated a faint band in the gamma region suspicious for monoclonal gammopathy. Further workup was recommended. Was also found to have low serum iron and iron saturation. Chemistry significant for total serum protein of 8.2 g/dL. Albumin 4.5 g/dL. Serum creatinine 1.03 mg/dL. CBC demonstrated hemoglobin 12.8 g/dL. Total white count and platelet count normal. Spot urine negative for protein by dipstick analysis. Has had mild increase in serum protein in the past. No MP by electrophoresis on 3 occasions here. Per initial office visit: Fatigued. Pain in both tarango bones for about a month. Restless legs at night. Previous bone donor site from left iliac bone to do cervical graft hurts all the time. Bones in feet hurt. They feel weak, feel like feet don't want to work when I stand up. Hands hurt. ANDRES that fluctuates. Most recent EGD 03/14/2022 AG. Report in notes. C-scope 12/2017. Hyperplastic polyp. Was on oral iron years ago. Bad constipation. Presents for ongoing hematologic management. Interim history: Fatigued. 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/2016 Right nasal tip Hyperlipidemia Lung nodules PAD (peripheral artery disease) ([facility]) 03/10/2017 02/06/2022 PVR ank/jackson/toe bilat: RIGHT SIDE JITENDRA: 1.19; TBI: 0.84, WNL at rest LEFT SIDE: JITENDRA: 1.19; TBI: 0.96, WNL at rest Pulmonary HTN ([facility]) 12/08/2017 mild Squamous cell skin cancer, nasal tip 06/24/2016 Tobacco abuse 03/28/2017 PAST SURGICAL HISTORY Procedure Laterality Date ADDTL NECK SPINE FUSION 09/2004 CHOLECYSTECTOMY 2000 COLONOSCOPY 1982 COLONOSCOPY FLX DX W/COLLJ SPEC WHEN PFRMD 09/01/2012 COLONOSCOPY FLX DX W/COLLJ SPEC WHEN PFRMD Done in [place] unable to obtain COLONOSCOPY FLX DX W/COLLJ SPEC WHEN PFRMD 11/17/2013 Colonoscopy COLONOSCOPY FLX DX W/COLLJ SPEC WHEN PFRMD 12/24/2017 Colonoscopy ESOPHAGOGASTRODUODENOSCO PY TRANSORAL DIAGNOSTIC 06/04/2013 EGD ESOPHAGOGASTRODUODENOSCO PY TRANSORAL DIAGNOSTIC 05/17/2015 EGD ESOPHAGOGASTRODUODENOSCO PY TRANSORAL DIAGNOSTIC 12/24/2017 EGD FNA (FINE NEEDLE ASPIRATION) 04/12/2024 right thyroid HYSTERECTOMY HX 1984 Pelvic pain AND DUB NEUROPLASTY AND/TRANSPOS MEDIAN NRV CARPAL TUNNE Bilateral 08/27/2018 Bilateral carpal tunnel release OOPHORECTOMY PARTIAL/TOTAL UNI/BI 1985 Bilateral PAST SURGICAL HISTORY OF removed tissue nose for SCC PAST SURGICAL HISTORY OF 10/13/2017 Excision nasal mass, Dr Juarez Harris REMOVE TONSIL AND ADENOI UNDER AGE 12 SLING OPER STRES INCONTINENCE 2002 ALLERGIES Allergen Reactions Metronidazole Anaphylaxis Adhesive Other: See Comments redness with bandaids Augmentin [Amoxicil* Other: See Comments Thrush/yeast infection Ciprofloxacin Rash Clindamycin Swelling throat swelling Penicillins Intolerance Yeast infections Prozac [Fluoxetine * Rash Sulfa Dyne Rash Current Outpatient Medications Medication Sig ondansetron orally disintegrating (ZOFRAN ODT) 4 mg disintegrating tablet Take 1 tablet by mouth every 8 hours as needed. metFORMIN (GLUCOPHAGE) 500 mg tablet Take 1 tablet by mouth two times a day with meals. dulaglutide (TRULICITY) 1.5 mg/0.5 mL pen injector Inject 1.5 mg subcutaneously one time a week. Inject once per week. Discard Pen After blood sugar diagnostic (Blueprint GeneticsTOUCH VERIO TEST STRIPS) test strip Test blood sugar(s) 3 times daily. Dx: Type 2 DM - Controlled E11.9 Insulin: No meloxicam (MOBIC) 15 mg tablet Take 1 tablet by mouth once daily. rosuvastatin (CRESTOR) 20 mg tablet Take 1 tablet by mouth daily at bedtime. clobetasol (TEMOVATE) 0.05 % cream apply to rash on legs and hands twice daily 5 days a week as needed. Apply twice daily as needed, up to 21 days per month. Avoid application to the face, armpits, groin. albuterol HFA (PROVENTIL HFA, VENTOLIN HFA) 90 mcg/actuation inhaler Inhale 2 Puffs as instructed every 4 hours as needed for wheezing/shortness of breath. furosemide (LASIX) 20 mg tablet (more content not included)... Normal [facility] 08-17-2024 RADHAN Telephone (DAYAN) -------- ЮЛИЯ PRASAD ([id number]) 1955 F Date Time Provider Department 08/17/24 CRISTHIAN SMITH During your visit today, we recorded the following information about you: Gabbie Tidwell 08/17/2024 4:40 PM Signed Patient was seen by Dequan/Hermes until a few months ago. Patient left F as she thought her insurance wasn't in network with [facility]. Patient's insurance is in network and wishes to re-establish with [facility] Team. Please advise if this is an option as she is diabetic and needs to be seen sooner than January with Dr. Carranza. Beatrice Hawk MA 08/17/2024 5:[address] Petersen declined to accept her back in May when she left the practice. She was already advised this twice. Will leave in basket for nursing staff Beatrice Luna MA August 17, 2024 5:24 PM Allergies As of Date: 08/17/2024 Noted Allergy Reaction METRONIDAZOLE 01/25/2014 10 - Anaphylaxis ADHESIVE 04/28/2013 14 - Other: See Comments Comments: redness with bandaids AUGMENTIN (AMOXICILLIN-POT CLAVUL*01/25/2014 14 - Other: See Comments Comments: Thrush/yeast infection CIPROFLOXACIN 01/25/2014 2 - Rash CLINDAMYCIN 10/23/2016 7 - Swelling Comments: throat swelling PENICILLINS 06/09/2012 5 - Intolerance Comments: Yeast infections PROZAC (FLUOXETINE HCL) 10/26/2013 2 - Rash SULFA DYNE 06/09/2012 2 - Rash Date Reviewed: 08/17/2024 Reviewed by: Tori Murphy Ma, MA - Fully Assessed Reason for Visit: Returning Patient's Call [[phone]] Prescriptions as of 04/18/2025 - ondansetron orally disintegrating (ZOFRAN ODT) 4 mg disintegrating tablet Take 1 tablet by mouth every 8 hours as needed. - metFORMIN (GLUCOPHAGE) 500 mg tablet Take 1 tablet by mouth two times a day with meals. - dulaglutide (TRULICITY) 1.5 mg/0.5 mL pen injector Inject 1.5 mg subcutaneously one time a week. Inject once per week. Discard Pen After - blood sugar diagnostic (ONETOUCH VERIO TEST STRIPS) test strip Test blood sugar(s) 3 times daily. Dx: Type 2 DM - Controlled E11.9 Insulin: No - rosuvastatin (CRESTOR) 20 mg tablet Take 1 tablet by mouth daily at bedtime. - clobetasol (TEMOVATE) 0.05 % cream apply to rash on legs and hands twice daily 5 days a week as needed. Apply twice daily as needed, up to 21 days per month. Avoid application to the face, armpits, groin. - furosemide (LASIX) 20 mg tablet Take 1 tablet by mouth once daily. - pantoprazole DR (PROTONIX) 40 mg tablet Take 1 tablet by mouth once daily. - montelukast (SINGULAIR) 10 mg tablet Take 1 tablet by mouth daily at bedtime. - citalopram (CELEXA) 40 mg tablet Take 1 tablet by mouth once daily. - coenzyme Q10 (COENZYME Q-10) 100 mg cap capsule Take 1 capsule by mouth twice daily. - Cholecalciferol, Vitamin D3, 25 mcg (1,000 unit) cap Take 1 capsule by mouth once daily. - fluticasone-salmeterol (ADVAIR, WIXELA) 250-50 mcg/dose Inhale 1 Puff as instructed twice daily. - blood sugar diagnostic (BLOOD GLUCOSE TEST) test strip Test blood sugar(s) 3 times daily. Dx: Type 2 DM - Controlled E11.9 Insulin: No: True Matrix - Lancets lancets Test blood sugar(s) 3 times daily. Dx: Type 2 DM - Controlled E11.9 Insulin: No True matrix - Blood-Glucose Meter monitoring kit Glucose Meter of Choice - Kit - Dx: Type 2 DM - Controlled E11.9 - COMPOUNDED PRESCRIPTION Tens unit DX: DDD of neck and lumbar spine - aspirin, enteric coated (ASPIRIN, ENTERIC COATED) 81 mg EC tablet Take 81 mg by mouth once daily. - traZODone 100 mg tablet Take 100 mg by mouth daily at bedtime. One or two Problem List As Of Date 08/17/2024 Noted Resolved Hyperlipidemia [E78.5] 03/10/2017 Diverticulitis [K57.92] 11/28/2017 Diabetes mellitus [E11.9] 07/19/2015 Dizziness and giddiness [R42] 08/24/2012 12/05/2017 Neoplasm of uncertain behavior of skin [D48.5] 12/09/2012 11/28/2017 Atypical nevus of back [D22.5] 12/09/2012 Atypical nevus of abdominal wall [D22.5] 12/09/2012 12/05/2017 Actinic keratosis [L57.0] 12/09/2012 Irritated//Inflamed Seborrheic Keratoses [L82.0]12/09/2012 12/05/2017 Actinic skin damage [L57.8] 12/09/2012 Melanocytic nevi of face [D22.30] 12/09/2012 Dermatofibroma of right thigh [D23.71] 12/09/2012 Dermatofibroma of forearm [D23.60] 12/09/2012 Other seborrheic keratosis [L82.1] 12/09/2012 Solar Lentigines [L81.4] 12/09/2012 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/19/2013 GERD (gastroesophageal reflux disease) [K21.9] 05/15/2015 Status post cervical spinal fusion [Z98.1] 05/15/2015 12/05/2017 Depression [F32.A] 05/15/2015 Lung nodules [R91.8] 05/15/2015 03/27/2023 Emphysema of lung (HCC) [J43.9] 05/15/2015 03/26/2021 Hypotension [I95.9] 05/15/2015 07/19/2015 Pill dysphagia [R13.10] 05/17/2015 01/24/2022 Type 2 diabetes mellitus with diabetic neuropat*07/19/2015 Postconcussion syndrome [F07.81] 10/30/2015 01/24/2022 Memory loss [ (more content not included)... [facility]FAMPWS[facility] -------- ЮЛИЯ PRASAD ([id number]) 1955 F Date Time Provider Department 08/10/24 HEMANTH CARRANZA [facility] During your visit today, we recorded the following information about you: Franklin Hankins RN 08/10/2024 11:48 AM Signed Patient was transferred to this nurse, after scheduling an appt with Medical Concierge to est care, for Dec. Patient wants sooner appt to est care. Scheduled patient with Dr. Carranza on 09-21-24 at 7 am. This was the only time this nurse could get. This appt, makes 2 appts to est care, on this day, for doctor. Please advise patient if this date/time is not ok [phone]. States she is diabetic, has issues with lungs, kidney and bladder, and needs a doctor to monitor these. Reports she transferred out of [facility] in Dec, and when attempted to transfer back to Dr. Petersen, was told he is no longer accepting new patients. Hemanth Carranza MD 08/10/2024 12:58 PM Signed I already have 2 new patient appointments scheduled for this day. 9 am and 2:20pm. They will need to be scheduled for a day when I have less than 2 new patients scheduled. Franklin Hankins RN 08/10/2024 4:20 PM Signed Left detailed vm on identified vm letting patient know this day will not work for pcp. Advised I have cancelled the appt in Nov, and asked patient to call back, and speak with a nurse or pss, to schedule an est care appt. Allergies As of Date: 08/10/2024 Noted Allergy Reaction METRONIDAZOLE 01/25/2014 10 - Anaphylaxis ADHESIVE 04/28/2013 14 - Other: See Comments Comments: redness with bandaids AUGMENTIN (AMOXICILLIN-POT CLAVUL*01/25/2014 14 - Other: See Comments Comments: Thrush/yeast infection CIPROFLOXACIN 01/25/2014 2 - Rash CLINDAMYCIN 10/23/2016 7 - Swelling Comments: throat swelling PENICILLINS 06/09/2012 5 - Intolerance Comments: Yeast infections PROZAC (FLUOXETINE HCL) 10/26/2013 2 - Rash SULFA DYNE 06/09/2012 2 - Rash Date Reviewed: 2024 Reviewed by: Orville Tavares APRN.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 - Fully Assessed Reason for Visit: Patient appt/question [Other] Prescriptions as of 08/10/2024 - ondansetron orally disintegrating (ZOFRAN ODT) 4 mg disintegrating tablet Take 1 tablet by mouth every 8 hours as needed. - metFORMIN (GLUCOPHAGE) 500 mg tablet Take 1 tablet by mouth two times a day with meals. - dulaglutide (TRULICITY) 1.5 mg/0.5 mL pen injector Inject 1.5 mg subcutaneously one time a week. Inject once per week. Discard Pen After - blood sugar diagnostic (ONETOUCH VERIO TEST STRIPS) test strip Test blood sugar(s) 3 times daily. Dx: Type 2 DM - Controlled E11.9 Insulin: No - meloxicam (MOBIC) 15 mg tablet Take 1 tablet by mouth once daily. - rosuvastatin (CRESTOR) 20 mg tablet Take 1 tablet by mouth daily at bedtime. - clobetasol (TEMOVATE) 0.05 % cream apply to rash on legs and hands twice daily 5 days a week as needed. Apply twice daily as needed, up to 21 days per month. Avoid application to the face, armpits, groin. - albuterol HFA (PROVENTIL HFA, VENTOLIN HFA) 90 mcg/actuation inhaler Inhale 2 Puffs as instructed every 4 hours as needed for wheezing/shortness of breath. - furosemide (LASIX) 20 mg tablet Take 1 tablet by mouth once daily. - pantoprazole DR (PROTONIX) 40 mg tablet Take 1 tablet by mouth once daily. - montelukast (SINGULAIR) 10 mg tablet Take 1 tablet by mouth daily at bedtime. - citalopram (CELEXA) 40 mg tablet Take 1 tablet by mouth once daily. - coenzyme Q10 (COENZYME Q-10) 100 mg cap capsule Take 1 capsule by mouth twice daily. - Cholecalciferol, Vitamin D3, 25 mcg (1,000 unit) cap Take 1 capsule by mouth once daily. - fluticasone-salmeterol (ADVAIR, WIXELA) 250-50 mcg/dose Inhale 1 Puff as instructed twice daily. - blood sugar diagnostic (BLOOD GLUCOSE TEST) test strip Test blood sugar(s) 3 times daily. Dx: Type 2 DM - Controlled E11.9 Insulin: No: True Matrix - Lancets lancets Test blood sugar(s) 3 times daily. Dx: Type 2 DM - Controlled E11.9 Insulin: No True matrix - Blood-Glucose Meter monitoring kit Glucose Meter of Choice - Kit - Dx: Type 2 DM - Controlled E11.9 - COMPOUNDED PRESCRIPTION Tens unit DX: DDD of neck and lumbar spine - aspirin, enteric coated (ASPIRIN, ENTERIC COATED) 81 mg EC tablet Take 81 mg by mouth once daily. - traZODone 100 mg tablet Take 100 mg by mouth daily at bedtime. One or two Problem List As Of Date 08/10/2024 Noted Resolved Hyperlipidemia [E78.5] 03/10/2017 Diverticulitis [K57.92] 11/28/2017 Diabetes mellitus [E11.9] 07/19/2015 Dizziness and giddiness [R42] 08/24/2012 12/05/2017 Neoplasm of uncertain behavior of skin [D48.5] 12/09/2012 11/28/2017 Atypical nevus of back [D22.5] 12/09/2012 Atypical nevus of abdominal wall [D22.5] 12/09/2012 12/05/2017 Actinic keratosis [L57.0] 12/09/2012 Irritated//Inflamed Seborrheic Keratoses [L82.0]12/09/2012 12/05/2017 (more content not included)... Normal [facility] BONE MARROW ANALYSISon 08-05 ADDENDUM 1: Normal [facility] Comment on above: Order Comment: Giovana alejandre Type: BONE MARROW SPECIMENOrdering Facility: [facility] Address: [address] [place] [address] Result Comment: This addendum is to note results of cytogenetic analysis that has been previously reported separately. 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 Trisomy 12 is typically associated with low grade B-cell lymphoproliferative disorders. There was no evidence of a monoclonal B-cell population by flow cytometry, and, given the absence of a morphologic correlate in the bone marrow biopsy, this finding is of uncertain clinical significance. There is no change in the diagnosis. KST/ 08/18/2024 Addendum electronically signed by Eriberto Plaza MD on 08/18/2024 at 5:11 PM Performed By: #### B MRT ####[facility] [id number] [place] [address] [place] CASE REPORT Normal [facility] Comment on above: Order Comment: Giovana alejandre Type: BONE MARROW SPECIMENOrdering Facility: [facility] Address: [address] [place] [address] Result Comment: Bone Marrow Pathology Report Case: [id number] Authorizing Provider: Cristhian Smith DO Collected: 2024 01:07 PM Ordering Location: Hematology/Oncology Received: 2024 02:33 PM Pathologist: Eriberto Plaza MD Specimens: A) - Bone Marrow, Aspirate, Right, Posterior, Iliac Crest B) - Bone Marrow, Biopsy, Right, Posterior, Iliac Crest C) - Bone Marrow, Clot, Right, Posterior, Iliac Crest D) - Blood Performed By: #### B MRT ####[facility] [id number] [address] [place] DIAGNOSIS COMMENT Normal [facility] Comment on above: Order Comment: Giovana alejandre Type: BONE MARROW SPECIMENOrdering Facility: [facility] Address: [address] [place] [address] Result Comment: The marrow was performed to evaluate for possible IgG lambda monoclonal protein. Serum protein electrophoresis showed an atypical region of restricted mobility and a possible lambda band on immunofixation, and urine monoclonal protein analysis showed a possible IgG lambda monoclonal protein on immunofixation. Immunostains for CD138 and kappa and lambda cytoplasmic immunoglobulin were performed on the core biopsy to better quantify plasma cells and evaluate for clonality, and showed that CD138+ plasma cells are slightly increased and comprise an estimated 5-10% of cellularity; the plasma cells appear polyclonal by kappa and lambda light chain staining, though there is high background staining present. Flow cytometry showed no evidence of an abnormal T- or monoclonal B-lymphocyte population, increased blasts or abnormal plasma cells. The findings would not exclude monoclonal gammopathy of undetermined significance in the appropriate clinical context. Please correlate with other clinical, laboratory and radiographic findings to further classify this process. Laboratory Developed Test (LDT) Disclaimer: Performance characteristics of immunohistochemical, immunofluorescent and chromogenic in-situ hybridization tests have been determined by the performing laboratory within [facility]???s Kali Russell [facility] Laboratory Medicine Department ([facility], [facility], [facility], [facility], [facility], [facility], or [facility]) in a manner consistent with CLIA requirements. One or more of these tests have not been cleared or approved by the FDA. [facility] is regulated under CLIA as qualified to perform high-complexity testing. These tests are used for clinical purposes. They should not be regarded as investigational or for research. Positive and negative controls stain appropriately. Performed By: #### B MRT ####[facility] [id number] [place] [address] [place] FINAL DIAGNOSIS Normal [facility] Comment on above: Order Comment: Speci men Type: BONE MARROW SPECIMENOrdering Facility: [facility] Address: [facility] [place] [address] Result Comment: A-C. Bone marrow, aspirate, touch imprint, clot section and core biopsy: - Normocellular marrow (40%) with trilineage hematopoiesis. - Adequate megakaryocytes. - Decreased to absent stainable iron. - Polytypic plasma cell hyperplasia (see comment). D. Peripheral blood smear: - No diagnostic abnormality. KST/ 08/06/2024 Performed By: #### B MRT ####[facility] [id number] [address] [place] FINAL PERFORMING LAB Normal [facility] Comment on above: Order Comment: Speci men Type: BONE MARROW SPECIMENOrdering Facility: [facility] Address: [address] [place] [address] Result Comment: Diag nostic interpretation performed at [facility], [address] [place] [address] CLIA# [id number] Car Unloader Helper: William Hernández M.D. Performed By: #### B MRT ####[facility] [id number] [address] [place] GROSS DESCRIPTION Normal [facility] Comment on above: Order Comment: Speci men Type: BONE MARROW SPECIMENOrdering Facility: [facility] Address: [address] [place] [address] Result Comment: A. B one Marrow, Aspirate, Right, Posterior, Iliac Crest Received are air-dried bone marrow aspirate smears. Submitted for light microscopy. B. Bone Marrow, Biopsy, Right, Posterior, Iliac Crest Received in formalin is one segment of cylindrical tissue measuring 1.5 x 0.3 x 0.3 cm, merrill-brown and of a firm consistency. Totally submitted in one cassette after decalcification. C. Bone Marrow, Clot, Right, Posterior, Iliac Crest Received in formalin is one segment of red, hemorrhagic material measuring 2.0 x 1.8 x 0.3 cm. Totally submitted in one cassette. D. Blood Received is a peripheral blood smear. Submitted for light microscopy. SS 2024 8:48 PM Gross examination performed at [facility], [address] [place] [address] Performed By: #### B MRT ####[facility] [id number] [address] [place] MICROSCOPIC DESCRIPTION [facility] Comment on above: Order Comment: Speci men Type: BONE MARROW SPECIMENOrdering Facility: [facility] Address: [address] [place] [address] Result Comment: FERNY PHERAL BLOOD: CBC (2024) Differential Count WBC 8.74 k/uL Neutrophil 66.1% Hemoglobin 12.4 g/dL Lymphocyte 27.0% MCV 88.7 fL Monocyte 5.4% RDW-CV 14.7 % Eosinophil 0.8% Platelet Count 222 k/uL Basophil 0.5% Immature granulocyte 0.2% Morphology/Interpretation: No diagnostic abnormality. BONE MARROW ASPIRATE: Result Normal Range 0 % Blasts 0-2 0 % Promyelocytes 1-5 49 % Myelos/Metas/Bands/Segs 32-72 3 % Eosinophils 1-6 0 % Basophils 0-1 1 % Monocytes 0-4 24 % Erythroid precursors 13-37 22 % Lymphocytes 7-23 1 % Plasma cells 0-2 Myeloid/Erythro (1.5-4): 2.2 Cells counted: 300. Iron stain result: Decreased to absent stainable iron. Specimen Quality: Spicular, cellular. Megakaryocytes: Present, with normal morphology. Erythropoiesis: Progressive maturation. Granulopoiesis: Progressive maturation. BONE MARROW BIOPSY: Adequacy: Adequate. Cellularity: Normal (40%). ME ratio: Normal. Hematopoiesis: Trilineage maturation. Megakaryocytes: Adequate. Megakaryocyte morphology: Normal. Lymphoid infiltrate: None present. Bone trabeculae: Normal. CLOT SECTION: Marrow particles: Many. Morphology: Similar to biopsy. ANCILLARY TESTS: Flow cytometry: Performed . Cytogenetics: Pending. FISH: Myeloma panel. Molecular: Buffy coat stored. Note: Immunohistochemical stains were performed in addition to flow cytometry in this case to further characterize the hematolymphoid elements in the context of cell morphology and tissue architecture. Discrepancies between flow cytometric results and morphology can occur due to sampling differences, preferential loss of specific cell populations, or hemodilution. KST/ 08/06/2024 Performed By: #### B MRT ####[facility] [id number] [facility] [id number] [address] [place] BONE MARROW BIOPSYon Orville Ascencio APRN.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 2024 1:50 PM BONE MARROW BIOPSY Date/Start Time: 2024 12:52 PM Date/Stop Time: 2024 1:09 PM Performed by: Orville Tavares APRN.CNP Authorized by: Orville Tavaers APRN.CNP Where was Patient When this Procedure was Performed [facility] Informed Consent Consent Obtained: Written [place] Protocol A moment to CARE was completed. SIGN IN Personnel directly involved with the procedure wore the appropriate PPE. Special Equipment: Yes Patient/Surrogate Stated/Verified: Patient name, Date of , Relevant allergies and Intended procedure TIME OUT Intended patient and procedure match the source document(s). Consent documented and matches the intended procedure. Relevant labs, photos, and/or imaging studies have been reviewed. Correct side/site marked and visible. Medications required for procedure verified. No fire risk assessment and interventions applicable. No implant(s) inserted. Pre-Procedure Details: The area was prepped with povidone Iodine (Betadine) and allowed to dry. A sterile partial body drape was applied following the usual aseptic technique. Medications: Local Anesthesia (see MAR): Lidocaine 1% Anxiolysis (see MAR): Lorazapem Procedure Details: Patient Position: Left lateral decubitus Aspiration Laterality: Unilateral Aspiration Site: Right posterior superior iliac crest Biopsy Laterality: Unilateral Biopsy Site: Right posterior sperior iliac crest OnControl biopsy system was used. Using aseptic technique, bone marrow aspiration was performed. A touch prep was taken. Core biopsy was obtained 1 cm. The core biopsy was confirmed. Number of External Insertion Sites: 1 Pressure dressing applied to Bone Marrow site(s). Hemostasis maintained. Assisting Clinician(s): Paola Yao MA and Jeremiah Meredith MA Post-Procedure Details: Patient Tolerance: Patient tolerated the procedure well with no immediate complications Immediate Complications: N/A Estimated Blood Loss: none Specimens Sent: bone marrow analysis, bone marrow chromosome analysis, DNA extraction and flow cytometry Teaching Complete: Bone Marrow Biopsy Post-procedure teaching complete Post-procedure care was reviewed and explained. Patient instructed to communicate complaints of redness, swelling, increased or unresolved pain, bleeding chills, bruising, and/or fever. Patient verbalized understanding. SIGN OUT All specimen containers correctly labeled. All instruments, equipment, possible retained foreign bodies accounted for. Post-procedure follow-up management communicated and Plan of Care Visit completed when applicable [facility] BONE MARROW CHROMOSOME ANALo n 2024 CHROMOSOME BM Normal [facility] Comment on above: Order Comment: Speci men Type: BONE MARROW SPECIMENOrdering Facility: [facility] Address: [address] [place] [address] Result Comment: Licha soto Accession Number: [id number] Doctor: CRISTHIAN SMITH Pathologist: [facility] No: [id number] Clinical diagnosis: Monoclonal Gammopathy Specimen Type: Bone marrow Received Date: 08/06/2024 Number of cells counted: 20 Number of cells analyzed: 20 Number of cells karyotyped: 20 Banding resolution: 400 Banding method: G-banding DIAGNOSIS: 47,XX,+12[3]/46,XX[17] INTERPRETATION: Abnormal, female karyotype COMMENT: Ten metaphase cells were analyzed from the culture stimulated with ODN and ten metaphase cells were analyzed from the 24 hour unstimulated culture. A mixture of apparently normal cells and an abnormal clone was observed. Seventeen out of the 20 cells analyzed showed a 46,XX karyotype or had random chromosomal loss, attributed to culture artifact. In the remaining three cells there was an abnormal clone, characterized by gain (trisomy) of chromosome 12. Trisomy 12 is most commonly observed in chronic lymphocytic leukemia but has been reported in other lymphoproliferative disorders. The abnormal cells were observed only in the culture stimulated with ODN, suggesting B-cell origin. Clinical and pathologic correlation is recommended. As reviewed by Shira Zavala, Ph.D. Performed by [facility] Molecular Pathology and Cytogenomics ([id number]), Division of Laboratory Medicine Kali Lopez Department of Pathology & Laboratory Medicine, [facility] [address] [place] [address]. [place] [address] Toll free: Performed By: #### [facility] ####[facility] [id number] [place] [address] [place] CBC W Auto Differential pane l (Bld)on 2024 Basophils (Bld) [#/Vol] 0.04 10*3/uL Normal <0.11 [facility] Comment on above: Order Comment: Speci men Type: BLOOD SPECIMENOrdering Facility: [facility] Address: [address] [place] [address] Performed By: #### 5 7021-8 ####[facility] MARGUERITEWNCLIA [id number] [place] [address] [place] Basophils/100 WBC (Bld) 0.5 % Normal [facility] Comment on above: Order Comment: Speci men Type: BLOOD SPECIMENOrdering Facility: [facility] Address: [address] [place] [address] Performed By: #### 5 7021-8 ####[facility]ABBYLIA [id number] [place] [address] [place] Differential cell count method Nom (Bld) Auto Normal [facility] Comment on above: Order Comment: Speci men Type: BLOOD SPECIMENOrdering Facility: [facility] Address: [address] [place] [address] Performed By: #### 5 7021-8 ####[facility] [id number] [place] [address] [place] Eosinophils (Bld) [#/Vol] 0.07 10*3/uL Normal <0.46 [facility] Comment on above: Order Comment: Speci men Type: BLOOD SPECIMENOrdering Facility: [facility] Address: [address] [place] [address] Performed By: #### 5 7021-8 ####[facility] MILLWNCLIA [id number] [place] [address] [place] Eosinophils/100 WBC (Bld) 0.8 % Normal [facility] Comment on above: Order Comment: Speci men Type: BLOOD SPECIMENOrdering Facility: [facility] Address: [address] [place] [address] Performed By: #### 5 7021-8 ####[facility] MILLEAST FREEDOMNCLIA [id number] [place] [address] [place] Erythrocyte distribution width (RBC) [Ratio] 14.1 % Normal 11.5-15.0 [facility] Comment on above: Order Comment: Speci men Type: BLOOD SPECIMENOrdering Facility: [facility] Address: [address] [place] [address] Performed By: #### 5 7021-8 ####[facility]ENTERJIMENA [id number] [place] [address] [place] Hematocrit (Bld) [Volume fraction] 36.9 % Normal 36.0-46.0 [facility] Comment on above: Order Comment: Speci men Type: BLOOD SPECIMENOrdering Facility: [facility] Address: [address] [place] [address] Performed By: #### 5 7021-8 ####[facility] [id number] [place] [address] [place] Hemoglobin (Bld) [Mass/Vol] 12.4 g/dL Normal 11.5-15.5 [facility] Comment on above: Order Comment: Speci men Type: BLOOD SPECIMENOrdering Facility: [facility] Address: [address] [place] [address] Performed By: #### 5 7021-8 ####[facility] [id number] [place] [address] [place] Immature granulocytes (Bld) [#/Vol] 10*3/uL Normal <0.10 [facility] Comment on above: Order Comment: Speci men Type: BLOOD SPECIMENOrdering Facility: [facility] Address: [address] [place] [address] Performed By: #### 5 7021-8 ####[facility] [id number] [place] [address] [place] Immature granulocytes/100 WBC (Bld) 0.2 % Normal [facility] Comment on above: Order Comment: Speci men Type: BLOOD SPECIMENOrdering Facility: [facility] Address: [address] [place] [address] Performed By: #### 5 7021-8 ####[facility] [id number] [place] [address] [place] Lymphocytes (Bld) [#/Vol] 2.36 10*3/uL Normal 1.00-4.00 [facility] Comment on above: Order Comment: Speci men Type: BLOOD SPECIMENOrdering Facility: [facility] Address: [address] [place] [address] Performed By: #### 5 7021-8 ####[facility] [id number] [place] [address] [place] Lymphocytes/100 WBC (Bld) 27.0 % Normal [facility] Comment on above: Order Comment: Speci men Type: BLOOD SPECIMENOrdering Facility: [facility] Address: [address] [place] [address] Performed By: #### 5 7021-8 ####[facility] [id number] [place] [address] [place] MCH (RBC) [Entitic mass] 29.8 pg Normal 26.0-34.0 [facility] Comment on above: Order Comment: Speci men Type: BLOOD SPECIMENOrdering Facility: [facility] Address: [address] [place] [address] Performed By: #### 5 7021-8 ####[facility] [id number] [place] [address] [place] MCHC (RBC) [Mass/Vol] 33.6 g/dL Normal 30.5-36.0 [facility] Comment on above: Order Comment: Speci men Type: BLOOD SPECIMENOrdering Facility: [facility] Address: [address] [place] [address] Performed By: #### 5 7021-8 ####[facility] ERONLIA [id number] [place] [address] [place] MCV (RBC) [Entitic vol] 88.7 fL Normal 80.0-100.0 [facility] Comment on above: Order Comment: Speci men Type: BLOOD SPECIMENOrdering Facility: [facility] Address: [address] [place] [address] Performed By: #### 5 7021-8 ####[facility]ENTERGABBYLIA [id number] [place] [address] [place] Monocytes (Bld) [#/Vol] 0.47 10*3/uL Normal <0.87 [facility] Comment on above: Order Comment: Speci men Type: BLOOD SPECIMENOrdering Facility: [facility] Address: [address] [place] [address] Performed By: #### 5 7021-8 ####[facility]ENTERGABBYLIA [id number] [place] [address] [place] Monocytes/100 WBC (Bld) 5.4 % Normal [facility] Comment on above: Order Comment: Speci men Type: BLOOD SPECIMENOrdering Facility: [facility] Address: [address] [place] [address] Performed By: #### 5 7021-8 ####[facility] MARGUERITEWGABBYLIA [id number] [place] [address] [place] Neutrophils (Bld) [#/Vol] 5.78 10*3/uL Normal 1.45-7.50 [facility] Comment on above: Order Comment: Speci men Type: BLOOD SPECIMENOrdering Facility: [facility] Address: [address] [place] [address] Performed By: #### 5 7021-8 ####[facility] [id number] [place] [address] [place] Neutrophils/100 WBC (Bld) 66.1 % Normal [facility] Comment on above: Order Comment: Speci men Type: BLOOD SPECIMENOrdering Facility: [facility] Address: [address] [place] [address] Performed By: #### 5 7021-8 ####[facility] [id number] [place] [address] [place] Nucleated RBC (Bld) [#/Vol] 10*3/uL Normal <0.01 [facility] Comment on above: Order Comment: Speci men Type: BLOOD SPECIMENOrdering Facility: [facility] Address: [address] [place] [address] Performed By: #### 5 7021-8 ####[facility] [id number] [place] [address] [place] Nucleated RBC/100 WBC (Bld) [Ratio] 0.0 /100 WBC Normal [facility] Comment on above: Order Comment: Speci men Type: BLOOD SPECIMENOrdering Facility: [facility] Address: [address] [place] [address] Performed By: #### 5 7021-8 ####[facility] [id number] [place] [address] [place] Platelet mean volume (Bld) [Entitic vol] 9.6 fL Normal 9.0-12.7 [facility] Comment on above: Order Comment: Speci men Type: BLOOD SPECIMENOrdering Facility: [facility] Address: [address] [place] [address] Performed By: #### 5 7021-8 ####[facility]ENTERNCLI [id number] [place] [address] [place] Platelets (Bld) [#/Vol] 222 10*3/uL Normal 150-400 [facility] Comment on above: Order Comment: Speci men Type: BLOOD SPECIMENOrdering Facility: [facility] Address: [facility] [place] [address] Performed By: #### 5 7021-8 ####[facility]ENTERNCLIA [id number] [place] [address] [place] RBC (Bld) [#/Vol] 4.16 10*6/uL Normal 3.90-5.20 [facility] Comment on above: Order Comment: Speci men Type: BLOOD SPECIMENOrdering Facility: [facility] Address: [address] [place] [address] Performed By: #### 5 7021-8 ####[facility] CENTERNCA [id number] [place] [address] [place] WBC (Bld) [#/Vol] 8.74 10*3/uL Normal 3.70-11.00 [facility] Comment on above: Order Comment: Speci men Type: BLOOD SPECIMENOrdering Facility: [facility] Address: [address] [place] [address] Performed By: #### 5 7021-8 ####[facility]ENTERNCLIA [id number] [place] [address] [place] CNOVSPon 2024 CNOVS Visit (SP) Office (DAYAN) -------- ЮЛИЯ PRASAD ([id number]) 1955 F Date Time Provider Department 08/05/24 1:00 PM [place] [facility] During your visit today, we recorded the following information about you: Temperature Pulse Blood pressure Weight 97.6 degrees 79/minute 113/70 62.1 kg Paola Yao MA 2024 1:26 PM Signed Pt discharged to home with Neighbor after BMBX with dry sterile dressing in place. No drainage noted. Post-procedures care reviewed with patient. Pt to call with any complaints of redness, swelling, increased or unresolved pain, bleeding, chills, bruising, and/or fever. Pt. Verbalized understanding. SHARRI Iglesias Darby, APRN.CNP 2024 1:50 PM Signed BEDSIDE PROCEDURE NOTE BONE MARROW BIOPSY Date/Start Time: 2024 12:52 PM Date/Stop Time: 2024 1:09 PM Performed by: Orville Tavares APRN.RADHA Authorized by: Orville Tavares APRN.CNP Where was Patient When this Procedure was Performed [facility] Informed Consent Consent Obtained: Written [place] Protocol A moment to CARE was completed. SIGN IN Personnel directly involved with the procedure wore the appropriate PPE. Special Equipment: Yes Patient/Surrogate Stated/Verified: Patient name, Date of , Relevant allergies and Intended procedure TIME OUT Intended patient and procedure match the source document(s). Consent documented and matches the intended procedure. Relevant labs, photos, and/or imaging studies have been reviewed. Correct side/site marked and visible. Medications required for procedure verified. No fire risk assessment and interventions applicable. No implant(s) inserted. Pre-Procedure Details: The area was prepped with povidone Iodine (Betadine) and allowed to dry. A sterile partial body drape was applied following the usual aseptic technique. Medications: Local Anesthesia (see MAR): Lidocaine 1% Anxiolysis (see MAR): Lorazapem Procedure Details: Patient Position: Left lateral decubitus Aspiration Laterality: Unilateral Aspiration Site: Right posterior superior iliac crest Biopsy Laterality: Unilateral Biopsy Site: Right posterior sperior iliac crest Local [employer] biopsy system was used. Using aseptic technique, bone marrow aspiration was performed. A touch prep was taken. Core biopsy was obtained 1 cm. The core biopsy was confirmed. Number of External Insertion Sites: 1 Pressure dressing applied to Bone Marrow site(s). Hemostasis maintained. Assisting Clinician(s): Paola Yao MA and Jeremiah Meredith MA Post-Procedure Details: Patient Tolerance: Patient tolerated the procedure well with no immediate complications Immediate Complications: N/A Estimated Blood Loss: none Specimens Sent: bone marrow analysis, bone marrow chromosome analysis, DNA extraction and flow cytometry Teaching Complete: Bone Marrow Biopsy Post-procedure teaching complete Post-procedure care was reviewed and explained. Patient instructed to communicate complaints of redness, swelling, increased or unresolved pain, bleeding chills, bruising, and/or fever. Patient verbalized understanding. SIGN OUT All specimen containers correctly labeled. All instruments, equipment, possible retained foreign bodies accounted for. Post-procedure follow-up management communicated and Plan of Care Visit completed when applicable SIGNATURE: Orville Tavares APRN.CNP PATIENT NAME: Юлия Prasad DATE: 2024 TIME: 1:47 PM Allergies As of Date: 2024 Noted Allergy Reaction METRONIDAZOLE 01/25/2014 10 - Anaphylaxis ADHESIVE 04/28/2013 14 - Other: See Comments Comments: redness with bandaids AUGMENTIN (AMOXICILLIN-POT CLAVUL*01/25/2014 14 - Other: See Comments Comments: Thrush/yeast infection CIPROFLOXACIN 01/25/2014 2 - Rash CLINDAMYCIN 10/23/2016 7 - Swelling Comments: throat swelling PENICILLINS 06/09/2012 5 - Intolerance Comments: Yeast infections PROZAC (FLUOXETINE HCL) 10/26/2013 2 - Rash SULFA DYNE 06/09/2012 2 - Rash Date Reviewed: 2024 Reviewed by: Orville Tavares APRN.CNP - Fully Assessed Reason for Visit: Procedure [88] Cmt: BMBX Visit Diagnosis:Monoclonal gammopathy [D47.2] Order(s):BONE MARROW ASPIRATE ANDBIOPSY [[id number]] Order #: [id number]: 1 BONE MARROW ANALYSIS [SQBMRT] Order #: [id number]. #:[id number] BONE MARROW CHROMOSOME ANAL [SQCHRBMH] Order #: [id number]. #:[id number] DNA EXTRACTION BONE MARROW (BUFFY COAT) [SQNUCBUF] Order #: [id number]. #:[id number] FLOW CYTOMETRY FOR LEUKEMIA/LYMPHOMA (FCLL) [IVB6609] Order #: [id number]. #:[id number] FISH FOR PLASMA CELL MYELOMA [SQFSHPCM] Order #: [id number]. #:[id number] FLOW CYTOMETRY FOR LEUKEMIA/LYMPHOMA (FCLL) PERFORMABLE [EIA2720] Reflex Order#: [id number] (Ord#:[id number])Spec. #:[id number] (more content not included)... Normal [facility] DNA EXTRACTION BONE MARROW ( BUFFY COAT)on 2024 DNA EXTRACTION BONE MARROW (BUFFY COAT) Normal [facility] Comment on above: Order Comment: Giovana alejandre Type: BONE MARROW SPECIMENOrdering Facility: [facility] Address: [address] [place] [address] Result Comment: This specimen was received and successfully processed for future DNA purification should molecular testing be needed. Specimens will be available for 3 years from date of collection. To order testing on this specimen for [facility] patients, please place an [facility] order for DNA and RNA Clinical Testing (SQNUCADD). To order testing for patients outside of the [facility] system, please request DNA and RNA for Clinical Testing, order code NUCADD. If additional paperwork is required for testing, please send completed forms via secure email to . Performed By: #### N UCBUF ####[facility] HOSPITALSCLIA [id number] [place] [address] [place] FISH FOR PLASMA CELL MYELOMA on 2024 FISH FOR PLASMA CELL MYELOMA Normal [facility] Comment on above: Order Comment: Giovana alejandre Type: BONE MARROW SPECIMENOrdering Facility: [facility] Address: [address] [place] [address] Result Comment: FISH for Plasma Cell Myeloma Laboratory Accession Number: [id number] Case: [id number] Sample type: Bone Marrow Aspirate Number of nuclei scored: 60-100 Received Date: 2024-08-06 06:28:09 RESULT: Result 1p32 (CDKN2C): Normal pattern 1q21 (CKS1B): Normal pattern +9 (CEP9): Normal pattern t(11;14)(q13;q32)(IGH/CCND1): Normal pattern 13q14 (RB1): Normal pattern 14q32 (IGH): Normal pattern +15 (CEP15): Normal pattern 17p13 (TP53): Normal pattern INTERPRETATION: The plasma cells analyzed displayed a normal signal pattern with all probes tested. This result does not rule out the possibility of a plasma cell neoplasm. Clinical and pathological correlation is recommended. REFERENCE RANGE: Reference ranges for the 13q14/17p13, 1p32/1q21 and CEP9/CEP15: Normal Range = 0-20% if at least 100 cells scored If fewer than 100 cells scored, then report if positive when >19 abnormal nuclei found If <20 plasma cells counted, report as insufficient Reference range for IGH: Normal Range = 0-15% if at least 100 cells scored If fewer than 100 cells scored, then report if positive when >14 abnormal nuclei found If <20 plasma cells counted, report as insufficient Reference range for t(11;14) Normal Range = 0-10% if at least 100 cells scored If fewer than 100 cells scored, then report if positive when >9 abnormal nuclei found If <20 plasma cells counted, report as insufficient REFERENCES: 1) Acacia E et al. The International Consensus Classification of Mature Lymphoid Neoplasms: a report from the Clinical Advisory Committee. Blood. 2021 15;140(11):3737-2172 (PMID: 94206573) 2) Sergio SK, Gustavo SV. The multiple myelomas - current concepts in cytogenetic classification and therapy. Nati Rev Oncol. 2018;15(7):409-421 (PMID: 92329915) 3) Gaston JR et al. Management of newly diagnosed symptomatic multiple myeloma: updated [employer] Stratification of Myeloma and Risk- Adapted Therapy (mSMART) consensus guidelines 2013. [employer]ide Clin Proc 2013 Feb;88(4):360-76 (PMID: 59665273) 4) Beatris NC et al. Consensus recommendations for risk stratification in multiple myeloma: report of the International Myeloma Workshop Consensus Panel 2. Blood 2010March 14;117(18):6080-1453 (PMID: 19583058) METHODOLOGY: Bone marrow plasma cells were isolated by CD138 purification (Robosep, [employer]emDediServe, [place], [place], Shawna). Interphase fluorescence in situ hybridization was performed using probes to the CDKN2C locus on chromosome 1p32 (Allred Vysis/Cytocell), CKS1B locus on chromosome 1q21 (Allred Vysis/Cytocell), chromosome 9 centromere (Allred Vysis), t(11;14) (IGH/CCND1) dual color dual fusion probe (Allred Vysis), 13q14 ([employer], [facility], [place]), IGH locus on chromosome 14q32 (LSI IGH Dual Color, [employer]-Apart, Allred Vysis), chromosome 15 centromere (Allred Vysis), and the TP53 locus on chromosome 17p13 (Allred Vysis). 100 plasma cells were scored whenever possible. DISCLAIMER: This test was developed and its performance characteristics determined by [facility]'s Pathology and Laboratory Medicine Department. It has not been cleared or approved by the FDA. [facility]'s Pathology and Laboratory Medicine Department is regulated under CLIA as certified to perform high-complexity testing. This test is used for clinical purposes. It should not be regarded as investigational or for research. Interpretation performed at [facility], [address] [place] [address]. CLIA Number: [id number] As reviewed by Barbie Nash MD, PhD Performed By: #### F SHPCM ####[facility] LIMSCLIA [id number] [place] [address] [place] FLOW CYTOMETRY FOR LEUKEMIA/ LYMPHOMA (FCLL) PERFORMABLEon 2024 FLOW CYTOMETRY ORDER STATUS Results will be reported under F case ID when completed Normal [facility] Comment on above: Order Comment: Speci men Type: BONE MARROW SPECIMENOrdering Facility: [facility] Address: [address] [place] [address] Performed By: #### F CLLP, FCLLRFLX ####[facility]CL[facility] [id number] [place] [address] [place] FLOW CYTOMETRY FOR LEUKEMIA/ LYMPHOMA (FCLL) REFLEXon 2024 DIAGNOSIS COMMENT Normal [facility] Comment on above: Order Comment: Speci pili Type: BONE MARROW SPECIMENOrdering Facility: [facility] Address: [address] [place] [address] Result Comment: This assay is not designed to detect minimal residual disease or myeloid antigen maturational patterns. This test was developed and its performance characteristics determined by [facility]'s [facility] [place] ([facility]). It has not been cleared or approved by the FDA. [facility] is regulated under CLIA as qualified to perform high-complexity testing. This test is used for clinical purposes. It should not be regarded as investigational or for research. Performed By: #### F CLLP, FCLLRFLX ####[facility] LABCLIA [id number] [address] STATES OF [facility] FINAL PERFORMING LAB Normal [facility] Comment on above: Order Comment: Speci men Type: BONE MARROW SPECIMENOrdering Facility: [facility] Address: [address] [place] [address] Result Comment: Diag nostic interpretation performed at [facility], [address] [place] [address] CLIA# [id number] Car Unloader Helper: William Hernández M.D. Performed By: #### F CLLP, FCLLRFLX ####[facility] [id number] [address] [place] FLOW CYTOMETRY RESULTS Normal [facility] Comment on above: Order Comment: Speci men Type: BONE MARROW SPECIMENOrdering Facility: [facility] Address: [address] [place] [address] Result Comment: Spec imen type: Bone Marrow Aspirate. Viability: 99%. Results: Flow Cytometry Bone Marrow Immunophenotyping Marker Normal Cell Type Result (Lymphocytes) CD3 T-cells Normal Pattern CD4 T-cell subset Normal Pattern CD5 T-cells Normal Pattern CD7 T/NK-cells Normal Pattern CD8 T-cell subset Normal Pattern CD13 Myeloid Normal Pattern CD16/56 NK cells Normal Pattern CD19 B-cells Normal Pattern CD34 Blasts Normal Pattern CD45 Lane-leukocyte Normal Pattern kappa/lambda B-cells Polytypic Flow Cytometry Bone Marrow Plasma Cell Immunophenotyping Marker Normal Cell Type Result (Plasma Cells) CD19 B lymphocyte Normal Pattern CD20 B lymphocyte Normal Pattern CD27 Plasma cell Normal Pattern VS38c Plasma cell Normal Pattern CD45 Leukocyte Normal Pattern CD56 NK cell Normal Pattern CD81 Plasma cell Normal Pattern CD117 Progenitor cell Normal Pattern CD138 Plasma cell Normal Pattern CD229 Plasma cell Normal Pattern cKappa/cLambda Plasma cell Polytypic Flow cytometric analysis of the bone marrow aspirate reveals that 17% of total events have the CD45 and light scatter properties of lymphocytes. The lymphocytes are composed of T-cells (67%, CD4:CD8 ratio = 1.13), NK cells (4%), and polytypic B-cells (27%). Granulocytic elements are 68% of events. Blasts are not increased. Plasma cells are 0.23% of total events according to the staining properties. The plasma cells are polytypic and phenotypically unremarkable. KST/ 08/06/2024 Performed By: #### F SERGIO CHAIREZ ####[facility] LABCLIA [id number] [address] STATES [place] GROSS DESCRIPTION A. Bone Marrow Normal [facility] Comment on above: Order Comment: Specodalis alejandre Type: BONE MARROW SPECIMENOrdering Facility: [facility] Address: [address] [place] [address] Result Comment: Rece ived 4 ml Bm in heparin. Performed By: #### F SERGIO CHAIREZ ####[facility]PITALIA [id number] [place] [address] [place] INTERPRETATION Normal [facility] Comment on above: Order Comment: Giovana alejandre Type: BONE MARROW SPECIMENOrdering Facility: [facility] Address: [address] [place] [address] Result Comment: Ther e is no evidence of involvement by a lymphoproliferative disorder, plasma cell neoplasm, or abnormal blast population. Correlation with the clinical laboratory, radiologic, and bone marrow histopathologic findings is suggested. Performed By: #### F SERGIO CHAIREZ ####[facility] LABCLIA [id number] [place] [address] [place] HIGH SENSITIVITY TROPONIN To n 2024 Troponin T.cardiac High sensitivity method [Mass/Vol] 8 ng/L Normal <12 [facility] Comment on above: Order Comment: Giovana alejandre Type: BLOOD SPECIMENOrdering Facility: [facility] Address: [address] [place] [address] Performed By: #### 3 3762-6, HSTNT ####[facility]CL[facility] [id number] [address] OF [place] NT-proBNP [facility] 08-05 Natriuretic peptide.B prohormone N-Terminal [Mass/Vol] 127 pg/mL High <125 [facility] Comment on above: Order Comment: Giovana alejandre Type: BLOOD SPECIMENOrdering Facility: [facility] Address: [address] [place] [address] Performed By: #### 3 3762-6, HSTNT ####[facility] LABCLIA [id number] [address] OF [facility] CNPNon 08-02-2024 CNPN Telephone (HEMAWS) -------- ЮЛИЯ PRASAD ([id number]) 1955 F Date Time Provider Department 08/02/24 CRISTHIAN SMITH During your visit today, we recorded the following information about you: Rosie Tam 08/02/2024 10:08 AM Signed Patient is scheduled for BMBX on 08/05. She states Dr Smith was going to prescribe a medication to keep her calm. She believes it as Ativan. Patient uses [facility] in [place] for pharm. Emily Tirado LPN 08/02/2024 10:44 AM Signed Rx pended. KEEGAN Saini Paul A, DO 08/02/2024 12:57 PM Signed The following approved medication requests have been transmitted electronically. Requested Prescriptions Signed Prescriptions Disp Refills LORazepam (ATIVAN) 0.5 mg 1 tablet 0 Sig: Take 1 tablet by mouth one time only for 1 dose. Take 1 tablet 1 hour prior to bone marrow biopsy. Authorizing Provider: CRISTHIAN SMITH DO Peters, Melanie, LPN 08/02/2024 1:03 PM Signed Patient notified. Emily Tirado LPN Allergies As of Date: 08/02/2024 Noted Allergy Reaction METRONIDAZOLE 01/25/2014 10 - Anaphylaxis ADHESIVE 04/28/2013 14 - Other: See Comments Comments: redness with bandaids AUGMENTIN (AMOXICILLIN-POT CLAVUL*01/25/2014 14 - Other: See Comments Comments: Thrush/yeast infection CIPROFLOXACIN 01/25/2014 2 - Rash CLINDAMYCIN 10/23/2016 7 - Swelling Comments: throat swelling PENICILLINS 06/09/2012 5 - Intolerance Comments: Yeast infections PROZAC (FLUOXETINE HCL) 10/26/2013 2 - Rash SULFA DYNE 06/09/2012 2 - Rash Date Reviewed: 06/24/2024 Reviewed by: Leann Burton LPN - Fully Assessed Reason for Visit: Patient Question [8297] Primary Visit Diagnosis:Monoclonal gammopathy [D47.2] Order(s):LORazepam (ATIVAN) 0.5 mgTake 1 tablet by mouth one time only for 1 dose. Take 1 tablet 1 hour prior to bone marrow biopsy.Disp: 1 tabletRfl: 0 Prescriptions as of 08/02/2024 - LORazepam (ATIVAN) 0.5 mg Take 1 tablet by mouth one time only for 1 dose. Take 1 tablet 1 hour prior to bone marrow biopsy. - ondansetron orally disintegrating (ZOFRAN ODT) 4 mg disintegrating tablet Take 1 tablet by mouth every 8 hours as needed. - metFORMIN (GLUCOPHAGE) 500 mg tablet Take 1 tablet by mouth two times a day with meals. - dulaglutide (TRULICITY) 1.5 mg/0.5 mL pen injector Inject 1.5 mg subcutaneously one time a week. Inject once per week. Discard Pen After - blood sugar diagnostic (Blueprint GeneticsTOUCH VERIO TEST STRIPS) test strip Test blood sugar(s) 3 times daily. Dx: Type 2 DM - Controlled E11.9 Insulin: No - meloxicam (MOBIC) 15 mg tablet Take 1 tablet by mouth once daily. - rosuvastatin (CRESTOR) 20 mg tablet Take 1 tablet by mouth daily at bedtime. - clobetasol (TEMOVATE) 0.05 % cream apply to rash on legs and hands twice daily 5 days a week as needed. Apply twice daily as needed, up to 21 days per month. Avoid application to the face, armpits, groin. - albuterol HFA (PROVENTIL HFA, VENTOLIN HFA) 90 mcg/actuation inhaler Inhale 2 Puffs as instructed every 4 hours as needed for wheezing/shortness of breath. - furosemide (LASIX) 20 mg tablet Take 1 tablet by mouth once daily. - pantoprazole DR (PROTONIX) 40 mg tablet Take 1 tablet by mouth once daily. - montelukast (SINGULAIR) 10 mg tablet Take 1 tablet by mouth daily at bedtime. - citalopram (CELEXA) 40 mg tablet Take 1 tablet by mouth once daily. - coenzyme Q10 (COENZYME Q-10) 100 mg cap capsule Take 1 capsule by mouth twice daily. - Cholecalciferol, Vitamin D3, 25 mcg (1,000 unit) cap Take 1 capsule by mouth once daily. - fluticasone-salmeterol (ADVAIR, WIXELA) 250-50 mcg/dose Inhale 1 Puff as instructed twice daily. - blood sugar diagnostic (BLOOD GLUCOSE TEST) test strip Test blood sugar(s) 3 times daily. Dx: Type 2 DM - Controlled E11.9 Insulin: No: True Matrix - Lancets lancets Test blood sugar(s) 3 times daily. Dx: Type 2 DM - Controlled E11.9 Insulin: No True matrix - Blood-Glucose Meter monitoring kit Glucose Meter of Choice - Kit - Dx: Type 2 DM - Controlled E11.9 - COMPOUNDED PRESCRIPTION Tens unit DX: DDD of neck and lumbar spine - aspirin, enteric coated (ASPIRIN, ENTERIC COATED) 81 mg EC tablet Take 81 mg by mouth once daily. - traZODone 100 mg tablet Take 100 mg by mouth daily at bedtime. One or two Problem List As Of Date 08/02/2024 Noted Resolved Hyperlipidemia [E78.5] 03/10/2017 Diverticulitis [K57.92] 11/28/2017 Diabetes mellitus [E11.9] 07/19/2015 Dizziness and giddiness [R42] 08/24/2012 12/05/2017 Neoplasm of uncertain behavior of skin [D48.5] 12/09/2012 11/28/2017 Atypical nevus of back [D22.5] 12/09/2012 Atypical nevus of abdominal wall [D22.5] 12/09/2012 12/05/2017 Actinic keratosis [L57.0] 12/09/2012 Irritated//Inflamed Seborrheic Keratoses [L82.0]12/09/2012 12/05/2017 Actinic skin damage [L57.8] 12/09/2012 Melanocytic nevi of fa (more content not included)... Normal [facility] MR Cervical spine WO and W c ontrast Santino 07-29-2024 * * *Final Report* * * DATE OF EXAM: Jul 29 2024 2:30PM [facility] 0298 - MRI CERVICAL SPINE WO/W IVCON / PROCEDURE REASON: Monoclonal gammopathy * * * * Physician Interpretation * * * * EXAMINATION: MRI LUMBAR SPINE WO/W IVCON, MRI THORACIC SPINE WO/W IVCON, MRI CERVICAL SPINE WO/W IVCON HISTORY: Monoclonal gammopathy TECHNIQUE: Routine Cervical Spine MR Protocol with Gadolinium Routine Gadolinium-Enhanced Thoracic Spine MR Protocol Routine Gadolinium-Enhance Lumbosacral Spine MR Protocol MR Contrast: Dotarem Contrast Dose: 12 cc Route of Administration: IV COMPARISON: Lumbar spine MRI 01/26/2014.. RESULT: CERVICAL SPINE FINDINGS: Counting reference: Craniocervical junction. Localizer images: No significant findings. Alignment: Alignment is anatomic. Craniocervical junction: Craniocervical junction is normal. Cord: The visualized cord is within normal limits of signal intensity and morphology. Bone marrow signal/fracture: There are postoperative findings related to anterior surfaces communicating fusion extending from C4 to C7. There is susceptibility artifact from the hardware which limits evaluation of the associated vertebral bodies. No evidence of pathologic marrow infiltration. No evidence of prior fracture. Cervical soft tissues: The paraspinal soft tissues are within normal limits. Enhancement: There is no evidence of abnormal enhancement in the cervical spine. C2-C3: There is mild bilateral facet arthropathy greater on the right and disc osteophyte complex resulting in mild to moderate right neural foraminal narrowing. There is no spinal canal stenosis. There is no significant left neural foraminal narrowing. C3-C4: There is mild bilateral facet arthropathy and disc osteophyte complex resulting in mild to moderate right neural foraminal narrowing. There is no left neural foraminal narrowing. There is no spinal canal stenosis. C4-C5: Canal and foramina are patent. C5-C6: Canal and foramina are patent. C6-C7: Canal and foramina are patent. C7-T1: Canal and foramina are patent. THORACIC SPINE FINDINGS: Counting Reference: Lumbosacral junction. For the purposes of this report, the most caudal normal disc space in the lumbar region will be labeled as L5-S1. The iliac crest will serve as a secondary landmark to identify the L4-5 level. Localizer images: There is a T2 hyperintense lesion in the superior pole of the left kidney, likely representing a renal cyst. Alignment: Alignment is anatomic. Cord: The visualized cord is within normal limits of signal intensity and morphology. Bone marrow signal/fracture: No evidence of pathologic marrow infiltration. No evidence of prior fracture. Thoracic paraspinal soft tissues: The paraspinal soft tissues are within normal limits. Enhancement: There is no evidence of abnormal enhancement in the thoracic spine. Canal and foramina: There are small central disc protrusions at T2-T3, T3-T4, T6-T7, T7-T8 and T8-T9 resulting in partial effacement of the ventral thecal sac without cord impingement. Is no neural foraminal narrowing. The thoracic canal and foramina are patent. LUMBAR SPINE FINDINGS: Counting reference: Lumbosacral junction. For the purposes of this report, L4-5 is considered the level of the iliac crest. Localizer images: As above. Alignment: Alignment is anatomic. There is disc desiccation throughout the lumbar spine. Bone marrow signal/fracture: No evidence of pathologic marrow infiltration. No evidence of prior fracture. Conus: The conus is within normal limits of signal intensity and morphology. Paraspinal soft tissues: Paraspinal soft tissues are within normal limits. Enhancement: There is no evidence of abnormal enhancement in the lumbar spine. Lower thoracic spine: Visualized lower thoracic canal and foramina are patent. T12-L1: Canal and foramina are patent. L1-L2: Canal and foramina are patent. L2-L3: Canal and foramina are patent L3-L4: Canal and foramina are patent L4-L5: Canal and foramina are patent L5-S1: There is mild bilateral facet arthropathy and diffuse disc bulge eccentric to the left resulting in mild right and moderate left neural foraminal narrowing. There is no spinal canal stenosis. Sacrum and iliac wings: The visualized sacrum and iliac wings are within normal limits. DIVISION OF RADIOLOGY Provider, [facility] - 07/29/2024 * * *Final Report* * * DATE OF EXAM: Jul 29 2024 2:30PM [facility] 0298 - MRI CERVICAL SPINE WO/W IVCON / PROCEDURE REASON: Monoclonal gammopathy * * * * Physician Interpretation * * * * EXAMINATION: MRI LUMBAR SPINE WO/W IVCON, MRI THORACIC SPINE WO/W IVCON, MRI CERVICAL SPINE WO/W IVCON HISTORY: Monoclonal gammopathy TECHNIQUE: Routine Cervical Spine MR Protocol with Gadolinium Routine Gadolinium-Enhanced Thoracic Spine MR Protocol Routine Gadolinium-Enhance Lumbosacral Spine MR Protocol MR Contrast: Dotarem Contrast Dose: 12 cc Route of Administration: IV COMPARISON: Lumbar spine MRI 01/26/2014.. RESULT: CERVICAL SPINE FINDINGS: Counting reference: Craniocervical junction. Localizer images: No significant findings. Alignment: Alignment is anatomic. Craniocervical junction: Craniocervical junction is normal. Cord: The visualized cord is within normal limits of signal intensity and morphology. Bone marrow signal/fracture: There are postoperative findings related to anterior surfaces communicating fusion extending from C4 to C7. There is susceptibility artifact from the hardware which limits evaluation of the associated vertebral bodies. No evidence of pathologic marrow infiltration. No evidence of prior fracture. Cervical soft tissues: The paraspinal soft tissues are within normal limits. Enhancement: There is no evidence of abnormal enhancement in the cervical spine. C2-C3: There is mild bilateral facet arthropathy greater on the right and disc osteophyte complex resulting in mild to moderate right neural foraminal narrowing. There is no spinal canal stenosis. There is no significant left neural foraminal narrowing. C3-C4: There is mild bilateral facet arthropathy and disc osteophyte complex resulting in mild to moderate right neural foraminal narrowing. There is no left neural foraminal narrowing. There is no spinal canal stenosis. C4-C5: Canal and foramina are patent. C5-C6: Canal and foramina are patent. C6-C7: Canal and foramina are patent. C7-T1: Canal and foramina are patent. THORACIC SPINE FINDINGS: Counting Reference: Lumbosacral junction. For the purposes of this report, the most caudal normal disc space in the lumbar region will be labeled as L5-S1. The iliac crest will serve as a secondary landmark to identify the L4-5 level. Localizer images: There is a T2 hyperintense lesion in the superior pole of the left kidney, likely representing a renal cyst. Alignment: Alignment is anatomic. Cord: The visualized cord is within normal limits of signal intensity and morphology. Bone marrow signal/fracture: No evidence of pathologic marrow infiltration. No evidence of prior fracture. Thoracic paraspinal soft tissues: The paraspinal soft tissues are within normal limits. Enhancement: There is no evidence of abnormal enhancement in the thoracic spine. Canal and foramina: There are small central disc protrusions at T2-T3, T3-T4, T6-T7, T7-T8 and T8-T9 resulting in partial effacement of the ventral thecal sac without cord impingement. Is no neural foraminal narrowing. The thoracic canal and foramina are patent. LUMBAR SPINE FINDINGS: Counting reference: Lumbosacral junction. For the purposes of this report, L4-5 is considered the level of the iliac crest. Localizer images: As above. Alignment: Alignment is anatomic. There is disc desiccation throughout the lumbar spine. Bone marrow signal/fracture: No evidence of pathologic marrow infiltration. No evidence of prior fracture. Conus: The conus is within normal limits of signal intensity and morphology. Paraspinal soft tissues: Paraspinal soft tissues are within normal limits. Enhancement: There is no evidence of abnormal enhancement in the lumbar spine. Lower thoracic spine: Visualized lower thoracic canal and foramina are patent. T12-L1: Canal and foramina are patent. L1-L2: Canal and foramina are patent. L2-L3: Canal and foramina are patent L3-L4: Canal and foramina are patent L4-L5: Canal and foramina are patent L5-S1: There is mild bilateral facet arthropathy and diffuse disc bulge eccentric to the left resulting in mild right and moderate left neural foraminal narrowing. There is no spinal canal stenosis. Sacrum and iliac wings: The visualized sacrum and iliac wings are within normal limits. IMPRESSION IMPRESSION: No osseous changes, marrow replacement or abnormal enhancement in the cervical, thoracic and lumbar spine Promotional Demonstrator: PSC[employer] Transcribe Date/Time: Jul 29 2024 3:46P Dictated by : NELSON AVALOS MD This examination was interpreted and the report reviewed and electronically signed by: NELSON AVALOS MD on Jul 29 2024 4:00PM [facility] MR Lumbar spine WO and W con trast Santino 07-29-2024 * * *Final Report* * * DATE OF EXAM: Jul 29 2024 2:30PM [facility] 0304 - MRI LUMBAR SPINE WO/W IVCON / PROCEDURE REASON: Monoclonal gammopathy * * * * Physician Interpretation * * * * EXAMINATION: MRI LUMBAR SPINE WO/W IVCON, MRI THORACIC SPINE WO/W IVCON, MRI CERVICAL SPINE WO/W IVCON HISTORY: Monoclonal gammopathy TECHNIQUE: Routine Cervical Spine MR Protocol with Gadolinium Routine Gadolinium-Enhanced Thoracic Spine MR Protocol Routine Gadolinium-Enhance Lumbosacral Spine MR Protocol MR Contrast: Dotarem Contrast Dose: 12 cc Route of Administration: IV COMPARISON: Lumbar spine MRI 01/26/2014.. RESULT: CERVICAL SPINE FINDINGS: Counting reference: Craniocervical junction. Localizer images: No significant findings. Alignment: Alignment is anatomic. Craniocervical junction: Craniocervical junction is normal. Cord: The visualized cord is within normal limits of signal intensity and morphology. Bone marrow signal/fracture: There are postoperative findings related to anterior surfaces communicating fusion extending from C4 to C7. There is susceptibility artifact from the hardware which limits evaluation of the associated vertebral bodies. No evidence of pathologic marrow infiltration. No evidence of prior fracture. Cervical soft tissues: The paraspinal soft tissues are within normal limits. Enhancement: There is no evidence of abnormal enhancement in the cervical spine. C2-C3: There is mild bilateral facet arthropathy greater on the right and disc osteophyte complex resulting in mild to moderate right neural foraminal narrowing. There is no spinal canal stenosis. There is no significant left neural foraminal narrowing. C3-C4: There is mild bilateral facet arthropathy and disc osteophyte complex resulting in mild to moderate right neural foraminal narrowing. There is no left neural foraminal narrowing. There is no spinal canal stenosis. C4-C5: Canal and foramina are patent. C5-C6: Canal and foramina are patent. C6-C7: Canal and foramina are patent. C7-T1: Canal and foramina are patent. THORACIC SPINE FINDINGS: Counting Reference: Lumbosacral junction. For the purposes of this report, the most caudal normal disc space in the lumbar region will be labeled as L5-S1. The iliac crest will serve as a secondary landmark to identify the L4-5 level. Localizer images: There is a T2 hyperintense lesion in the superior pole of the left kidney, likely representing a renal cyst. Alignment: Alignment is anatomic. Cord: The visualized cord is within normal limits of signal intensity and morphology. Bone marrow signal/fracture: No evidence of pathologic marrow infiltration. No evidence of prior fracture. Thoracic paraspinal soft tissues: The paraspinal soft tissues are within normal limits. Enhancement: There is no evidence of abnormal enhancement in the thoracic spine. Canal and foramina: There are small central disc protrusions at T2-T3, T3-T4, T6-T7, T7-T8 and T8-T9 resulting in partial effacement of the ventral thecal sac without cord impingement. Is no neural foraminal narrowing. The thoracic canal and foramina are patent. LUMBAR SPINE FINDINGS: Counting reference: Lumbosacral junction. For the purposes of this report, L4-5 is considered the level of the iliac crest. Localizer images: As above. Alignment: Alignment is anatomic. There is disc desiccation throughout the lumbar spine. Bone marrow signal/fracture: No evidence of pathologic marrow infiltration. No evidence of prior fracture. Conus: The conus is within normal limits of signal intensity and morphology. Paraspinal soft tissues: Paraspinal soft tissues are within normal limits. Enhancement: There is no evidence of abnormal enhancement in the lumbar spine. Lower thoracic spine: Visualized lower thoracic canal and foramina are patent. T12-L1: Canal and foramina are patent. L1-L2: Canal and foramina are patent. L2-L3: Canal and foramina are patent L3-L4: Canal and foramina are patent L4-L5: Canal and foramina are patent L5-S1: There is mild bilateral facet arthropathy and diffuse disc bulge eccentric to the left resulting in mild right and moderate left neural foraminal narrowing. There is no spinal canal stenosis. Sacrum and iliac wings: The visualized sacrum and iliac wings are within normal limits. DIVISION OF RADIOLOGY Provider, [facility] - 07/29/2024 * * *Final Report* * * DATE OF EXAM: Jul 29 2024 2:30PM [facility] 0304 - MRI LUMBAR SPINE WO/W IVCON / PROCEDURE REASON: Monoclonal gammopathy * * * * Physician Interpretation * * * * EXAMINATION: MRI LUMBAR SPINE WO/W IVCON, MRI THORACIC SPINE WO/W IVCON, MRI CERVICAL SPINE WO/W IVCON HISTORY: Monoclonal gammopathy TECHNIQUE: Routine Cervical Spine MR Protocol with Gadolinium Routine Gadolinium-Enhanced Thoracic Spine MR Protocol Routine Gadolinium-Enhance Lumbosacral Spine MR Protocol MR Contrast: Dotarem Contrast Dose: 12 cc Route of Administration: IV COMPARISON: Lumbar spine MRI 01/26/2014.. RESULT: CERVICAL SPINE FINDINGS: Counting reference: Craniocervical junction. Localizer images: No significant findings. Alignment: Alignment is anatomic. Craniocervical junction: Craniocervical junction is normal. Cord: The visualized cord is within normal limits of signal intensity and morphology. Bone marrow signal/fracture: There are postoperative findings related to anterior surfaces communicating fusion extending from C4 to C7. There is susceptibility artifact from the hardware which limits evaluation of the associated vertebral bodies. No evidence of pathologic marrow infiltration. No evidence of prior fracture. Cervical soft tissues: The paraspinal soft tissues are within normal limits. Enhancement: There is no evidence of abnormal enhancement in the cervical spine. C2-C3: There is mild bilateral facet arthropathy greater on the right and disc osteophyte complex resulting in mild to moderate right neural foraminal narrowing. There is no spinal canal stenosis. There is no significant left neural foraminal narrowing. C3-C4: There is mild bilateral facet arthropathy and disc osteophyte complex resulting in mild to moderate right neural foraminal narrowing. There is no left neural foraminal narrowing. There is no spinal canal stenosis. C4-C5: Canal and foramina are patent. C5-C6: Canal and foramina are patent. C6-C7: Canal and foramina are patent. C7-T1: Canal and foramina are patent. THORACIC SPINE FINDINGS: Counting Reference: Lumbosacral junction. For the purposes of this report, the most caudal normal disc space in the lumbar region will be labeled as L5-S1. The iliac crest will serve as a secondary landmark to identify the L4-5 level. Localizer images: There is a T2 hyperintense lesion in the superior pole of the left kidney, likely representing a renal cyst. Alignment: Alignment is anatomic. Cord: The visualized cord is within normal limits of signal intensity and morphology. Bone marrow signal/fracture: No evidence of pathologic marrow infiltration. No evidence of prior fracture. Thoracic paraspinal soft tissues: The paraspinal soft tissues are within normal limits. Enhancement: There is no evidence of abnormal enhancement in the thoracic spine. Canal and foramina: There are small central disc protrusions at T2-T3, T3-T4, T6-T7, T7-T8 and T8-T9 resulting in partial effacement of the ventral thecal sac without cord impingement. Is no neural foraminal narrowing. The thoracic canal and foramina are patent. LUMBAR SPINE FINDINGS: Counting reference: Lumbosacral junction. For the purposes of this report, L4-5 is considered the level of the iliac crest. Localizer images: As above. Alignment: Alignment is anatomic. There is disc desiccation throughout the lumbar spine. Bone marrow signal/fracture: No evidence of pathologic marrow infiltration. No evidence of prior fracture. Conus: The conus is within normal limits of signal intensity and morphology. Paraspinal soft tissues: Paraspinal soft tissues are within normal limits. Enhancement: There is no evidence of abnormal enhancement in the lumbar spine. Lower thoracic spine: Visualized lower thoracic canal and foramina are patent. T12-L1: Canal and foramina are patent. L1-L2: Canal and foramina are patent. L2-L3: Canal and foramina are patent L3-L4: Canal and foramina are patent L4-L5: Canal and foramina are patent L5-S1: There is mild bilateral facet arthropathy and diffuse disc bulge eccentric to the left resulting in mild right and moderate left neural foraminal narrowing. There is no spinal canal stenosis. Sacrum and iliac wings: The visualized sacrum and iliac wings are within normal limits. IMPRESSION IMPRESSION: No osseous changes, marrow replacement or abnormal enhancement in the cervical, thoracic and lumbar spine Promotional Demonstrator: TRI Transcribe Date/Time: Jul 29 2024 3:46P Dictated by : NELSON AVALOS MD This examination was interpreted and the report reviewed and electronically signed by: NELSON AVALOS MD on Jul 29 2024 4:00PM EST [facility] MR Pelvis WO and W contrast Santino 07-29-2024 IMPRESSION: No suspicious osseous lesions in the pelvis on MRI. 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 Promotional Demonstrator: TRI Transcribe Date/Time: Jul 29 2024 7:44P Dictated by : ROLA MOODY MD This examination was interpreted and the report reviewed and electronically signed by: ROLA MOODY MD on Jul 29 2024 8:20PM [facility] DIVISION OF RADIOLOGY * * *Final Report* * * DATE OF EXAM: Jul 29 2024 2:30PM [facility] 0230 - MRI PELVIS ORTHO GEN WO/W IVCON / PROCEDURE REASON: Monoclonal gammopathy * * * * Physician Interpretation * * * * EXAMINATION: MRI PELVIS ORTHO GEN WO/W IVCON HISTORY: Monoclonal gammopathy MONOCLONAL GAMMOPATHY TECHNIQUE: Routine multiplanar MRI of the pelvis without and with contrast; 12 Dotarem IV COMPARISON: CT abdomen pelvis 08/08/2014, bone survey 06/24/2024 RESULT: Bone Marrow: Chronic left femoral head osteonecrosis, unchanged since 2013, without femoral head flattening, significant arthropathy, or any associated marrow edema. No suspicious marrow replacing lesions are identified. Hip joints: Large [id number] images of the hips are notable for mild/minimal degenerative changes. Left femoral head chronic osteonecrosis as above. Evaluation of articular cartilage and labrum is limited. Sacroiliac joints: Mild to moderate mechanical/degenerative changes along the anterior aspect of the sacroiliac joints with some osteophytes and mild subchondral edema. No erosions or ankylosis. No sacroiliitis. Pubic symphysis: Within normal limits. Tendons: The iliopsoas, hamstring, and rectus femoris tendons are intact. Mild to moderate tendinosis at the left greater than right greater trochanteric gluteus minimus and medius insertions without high-grade tear. Muscles: Focus of hypertrophic bony changes with mild adjacent edema along the gluteus raymond posterior proximal femoral shaft insertion with mild reactive adjacent edema and enhancement along the myofascial insertions on the bone, an incidental finding of doubtful significance. Other: Colonic diverticulosis without diverticulitis. Uterus is absent. Localizer images: No significant additional findings. DIVISION OF RADIOLOGY Provider, [facility] - 07/29/2024 * * *Final Report* * * DATE OF EXAM: Jul 29 2024 2:30PM [facility] 0230 - MRI PELVIS ORTHO GEN WO/W IVCON / PROCEDURE REASON: Monoclonal gammopathy * * * * Physician Interpretation * * * * EXAMINATION: MRI PELVIS ORTHO GEN WO/W IVCON HISTORY: Monoclonal gammopathy MONOCLONAL GAMMOPATHY TECHNIQUE: Routine multiplanar MRI of the pelvis without and with contrast; 12 Dotarem IV COMPARISON: CT abdomen pelvis 08/08/2014, bone survey 06/24/2024 RESULT: Bone Marrow: Chronic left femoral head osteonecrosis, unchanged since 2013, without femoral head flattening, significant arthropathy, or any associated marrow edema. No suspicious marrow replacing lesions are identified. Hip joints: Large [id number] images of the hips are notable for mild/minimal degenerative changes. Left femoral head chronic osteonecrosis as above. Evaluation of articular cartilage and labrum is limited. Sacroiliac joints: Mild to moderate mechanical/degenerative changes along the anterior aspect of the sacroiliac joints with some osteophytes and mild subchondral edema. No erosions or ankylosis. No sacroiliitis. Pubic symphysis: Within normal limits. Tendons: The iliopsoas, hamstring, and rectus femoris tendons are intact. Mild to moderate tendinosis at the left greater than right greater trochanteric gluteus minimus and medius insertions without high-grade tear. Muscles: Focus of hypertrophic bony changes with mild adjacent edema along the gluteus raymond posterior proximal femoral shaft insertion with mild reactive adjacent edema and enhancement along the myofascial insertions on the bone, an incidental finding of doubtful significance. Other: Colonic diverticulosis without diverticulitis. Uterus is absent. Localizer images: No significant additional findings. IMPRESSION IMPRESSION: No suspicious osseous lesions in the pelvis on MRI. 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 Promotional Demonstrator: TRI Transcribe Date/Time: Jul 29 2024 7:44P Dictated by : ROLA MOODY MD This examination was interpreted and the report reviewed and electronically signed by: ROLA MOODY MD on Jul 29 2024 8:20PM EST [facility] Radiology Study observation (narrative) [facility] MR Pelvis WO and W contrast IVOrdered By: [facility] Provider on 07-29-2024 [facility] MR Thoracic spine WO and W c ontrast Santino 07-29-2024 * * *Final Report* * * DATE OF EXAM: Jul 29 2024 2:30PM [facility] 0326 - MRI THORACIC SPINE WO/W IVCON / PROCEDURE REASON: Monoclonal gammopathy * * * * Physician Interpretation * * * * EXAMINATION: MRI LUMBAR SPINE WO/W IVCON, MRI THORACIC SPINE WO/W IVCON, MRI CERVICAL SPINE WO/W IVCON HISTORY: Monoclonal gammopathy TECHNIQUE: Routine Cervical Spine MR Protocol with Gadolinium Routine Gadolinium-Enhanced Thoracic Spine MR Protocol Routine Gadolinium-Enhance Lumbosacral Spine MR Protocol MR Contrast: Dotarem Contrast Dose: 12 cc Route of Administration: IV COMPARISON: Lumbar spine MRI 01/26/2014.. RESULT: CERVICAL SPINE FINDINGS: Counting reference: Craniocervical junction. Localizer images: No significant findings. Alignment: Alignment is anatomic. Craniocervical junction: Craniocervical junction is normal. Cord: The visualized cord is within normal limits of signal intensity and morphology. Bone marrow signal/fracture: There are postoperative findings related to anterior surfaces communicating fusion extending from C4 to C7. There is susceptibility artifact from the hardware which limits evaluation of the associated vertebral bodies. No evidence of pathologic marrow infiltration. No evidence of prior fracture. Cervical soft tissues: The paraspinal soft tissues are within normal limits. Enhancement: There is no evidence of abnormal enhancement in the cervical spine. C2-C3: There is mild bilateral facet arthropathy greater on the right and disc osteophyte complex resulting in mild to moderate right neural foraminal narrowing. There is no spinal canal stenosis. There is no significant left neural foraminal narrowing. C3-C4: There is mild bilateral facet arthropathy and disc osteophyte complex resulting in mild to moderate right neural foraminal narrowing. There is no left neural foraminal narrowing. There is no spinal canal stenosis. C4-C5: Canal and foramina are patent. C5-C6: Canal and foramina are patent. C6-C7: Canal and foramina are patent. C7-T1: Canal and foramina are patent. THORACIC SPINE FINDINGS: Counting Reference: Lumbosacral junction. For the purposes of this report, the most caudal normal disc space in the lumbar region will be labeled as L5-S1. The iliac crest will serve as a secondary landmark to identify the L4-5 level. Localizer images: There is a T2 hyperintense lesion in the superior pole of the left kidney, likely representing a renal cyst. Alignment: Alignment is anatomic. Cord: The visualized cord is within normal limits of signal intensity and morphology. Bone marrow signal/fracture: No evidence of pathologic marrow infiltration. No evidence of prior fracture. Thoracic paraspinal soft tissues: The paraspinal soft tissues are within normal limits. Enhancement: There is no evidence of abnormal enhancement in the thoracic spine. Canal and foramina: There are small central disc protrusions at T2-T3, T3-T4, T6-T7, T7-T8 and T8-T9 resulting in partial effacement of the ventral thecal sac without cord impingement. Is no neural foraminal narrowing. The thoracic canal and foramina are patent. LUMBAR SPINE FINDINGS: Counting reference: Lumbosacral junction. For the purposes of this report, L4-5 is considered the level of the iliac crest. Localizer images: As above. Alignment: Alignment is anatomic. There is disc desiccation throughout the lumbar spine. Bone marrow signal/fracture: No evidence of pathologic marrow infiltration. No evidence of prior fracture. Conus: The conus is within normal limits of signal intensity and morphology. Paraspinal soft tissues: Paraspinal soft tissues are within normal limits. Enhancement: There is no evidence of abnormal enhancement in the lumbar spine. Lower thoracic spine: Visualized lower thoracic canal and foramina are patent. T12-L1: Canal and foramina are patent. L1-L2: Canal and foramina are patent. L2-L3: Canal and foramina are patent L3-L4: Canal and foramina are patent L4-L5: Canal and foramina are patent L5-S1: There is mild bilateral facet arthropathy and diffuse disc bulge eccentric to the left resulting in mild right and moderate left neural foraminal narrowing. There is no spinal canal stenosis. Sacrum and iliac wings: The visualized sacrum and iliac wings are within normal limits. DIVISION OF RADIOLOGY Provider, Alisha Sho [facility] - 07/29/2024 * * *Final Report* * * DATE OF EXAM: Jul 29 2024 2:30PM [facility] [id number] - MRI THORACIC SPINE WO/W IVCON / PROCEDURE REASON: Monoclonal gammopathy * * * * Physician Interpretation * * * * EXAMINATION: MRI LUMBAR SPINE WO/W IVCON, MRI THORACIC SPINE WO/W IVCON, MRI CERVICAL SPINE WO/W IVCON HISTORY: Monoclonal gammopathy TECHNIQUE: Routine Cervical Spine MR Protocol with Gadolinium Routine Gadolinium-Enhanced Thoracic Spine MR Protocol Routine Gadolinium-Enhance Lumbosacral Spine MR Protocol MR Contrast: Dotarem Contrast Dose: 12 cc Route of Administration: IV COMPARISON: Lumbar spine MRI 01/26/2014.. RESULT: CERVICAL SPINE FINDINGS: Counting reference: Craniocervical junction. Localizer images: No significant findings. Alignment: Alignment is anatomic. Craniocervical junction: Craniocervical junction is normal. Cord: The visualized cord is within normal limits of signal intensity and morphology. Bone marrow signal/fracture: There are postoperative findings related to anterior surfaces communicating fusion extending from C4 to C7. There is susceptibility artifact from the hardware which limits evaluation of the associated vertebral bodies. No evidence of pathologic marrow infiltration. No evidence of prior fracture. Cervical soft tissues: The paraspinal soft tissues are within normal limits. Enhancement: There is no evidence of abnormal enhancement in the cervical spine. C2-C3: There is mild bilateral facet arthropathy greater on the right and disc osteophyte complex resulting in mild to moderate right neural foraminal narrowing. There is no spinal canal stenosis. There is no significant left neural foraminal narrowing. C3-C4: There is mild bilateral facet arthropathy and disc osteophyte complex resulting in mild to moderate right neural foraminal narrowing. There is no left neural foraminal narrowing. There is no spinal canal stenosis. C4-C5: Canal and foramina are patent. C5-C6: Canal and foramina are patent. C6-C7: Canal and foramina are patent. C7-T1: Canal and foramina are patent. THORACIC SPINE FINDINGS: Counting Reference: Lumbosacral junction. For the purposes of this report, the most caudal normal disc space in the lumbar region will be labeled as L5-S1. The iliac crest will serve as a secondary landmark to identify the L4-5 level. Localizer images: There is a T2 hyperintense lesion in the superior pole of the left kidney, likely representing a renal cyst. Alignment: Alignment is anatomic. Cord: The visualized cord is within normal limits of signal intensity and morphology. Bone marrow signal/fracture: No evidence of pathologic marrow infiltration. No evidence of prior fracture. Thoracic paraspinal soft tissues: The paraspinal soft tissues are within normal limits. Enhancement: There is no evidence of abnormal enhancement in the thoracic spine. Canal and foramina: There are small central disc protrusions at T2-T3, T3-T4, T6-T7, T7-T8 and T8-T9 resulting in partial effacement of the ventral thecal sac without cord impingement. Is no neural foraminal narrowing. The thoracic canal and foramina are patent. LUMBAR SPINE FINDINGS: Counting reference: Lumbosacral junction. For the purposes of this report, L4-5 is considered the level of the iliac crest. Localizer images: As above. Alignment: Alignment is anatomic. There is disc desiccation throughout the lumbar spine. Bone marrow signal/fracture: No evidence of pathologic marrow infiltration. No evidence of prior fracture. Conus: The conus is within normal limits of signal intensity and morphology. Paraspinal soft tissues: Paraspinal soft tissues are within normal limits. Enhancement: There is no evidence of abnormal enhancement in the lumbar spine. Lower thoracic spine: Visualized lower thoracic canal and foramina are patent. T12-L1: Canal and foramina are patent. L1-L2: Canal and foramina are patent. L2-L3: Canal and foramina are patent L3-L4: Canal and foramina are patent L4-L5: Canal and foramina are patent L5-S1: There is mild bilateral facet arthropathy and diffuse disc bulge eccentric to the left resulting in mild right and moderate left neural foraminal narrowing. There is no spinal canal stenosis. Sacrum and iliac wings: The visualized sacrum and iliac wings are within normal limits. IMPRESSION IMPRESSION: No osseous changes, marrow replacement or abnormal enhancement in the cervical, thoracic and lumbar spine Promotional Demonstrator: [facility] Transcribe Date/Time: Jul 29 2024 3:46P Dictated by : NELSON AVALOS MD This examination was interpreted and the report reviewed and electronically signed by: NELSON AVALOS MD on Jul 29 2024 4:00PM [facility] MRI CERVICAL SPINE WO/W IVCO Non 07-29-2024 MRI CERVICAL SPINE WO/W IVCON * * *Final Report* * * DATE OF EXAM: Jul 29 2024 2:30PM [id number] [id number] - MRI CERVICAL SPINE WO/W IVCON / PROCEDURE REASON: Monoclonal gammopathy * * * * Physician Interpretation * * * * EXAMINATION: MRI LUMBAR SPINE WO/W IVCON, MRI THORACIC SPINE WO/W IVCON, MRI CERVICAL SPINE WO/W IVCON HISTORY: Monoclonal gammopathy TECHNIQUE: Routine Cervical Spine MR Protocol with Gadolinium Routine Gadolinium-Enhanced Thoracic Spine MR Protocol Routine Gadolinium-Enhance Lumbosacral Spine MR Protocol MR Contrast: Dotarem Contrast Dose: 12 cc Route of Administration: IV COMPARISON: Lumbar spine MRI 01/26/2014.. RESULT: CERVICAL SPINE FINDINGS: Counting reference: Craniocervical junction. Localizer images: No significant findings. Alignment: Alignment is anatomic. Craniocervical junction: Craniocervical junction is normal. Cord: The visualized cord is within normal limits of signal intensity and morphology. Bone marrow signal/fracture: There are postoperative findings related to anterior surfaces communicating fusion extending from C4 to C7. There is susceptibility artifact from the hardware which limits evaluation of the associated vertebral bodies. No evidence of pathologic marrow infiltration. No evidence of prior fracture. Cervical soft tissues: The paraspinal soft tissues are within normal limits. Enhancement: There is no evidence of abnormal enhancement in the cervical spine. C2-C3: There is mild bilateral facet arthropathy greater on the right and disc osteophyte complex resulting in mild to moderate right neural foraminal narrowing. There is no spinal canal stenosis. There is no significant left neural foraminal narrowing. C3-C4: There is mild bilateral facet arthropathy and disc osteophyte complex resulting in mild to moderate right neural foraminal narrowing. There is no left neural foraminal narrowing. There is no spinal canal stenosis. C4-C5: Canal and foramina are patent. C5-C6: Canal and foramina are patent. C6-C7: Canal and foramina are patent. C7-T1: Canal and foramina are patent. THORACIC SPINE FINDINGS: Counting Reference: Lumbosacral junction. For the purposes of this report, the most caudal normal disc space in the lumbar region will be labeled as L5-S1. The iliac crest will serve as a secondary landmark to identify the L4-5 level. Localizer images: There is a T2 hyperintense lesion in the superior pole of the left kidney, likely representing a renal cyst. Alignment: Alignment is anatomic. Cord: The visualized cord is within normal limits of signal intensity and morphology. Bone marrow signal/fracture: No evidence of pathologic marrow infiltration. No evidence of prior fracture. Thoracic paraspinal soft tissues: The paraspinal soft tissues are within normal limits. Enhancement: There is no evidence of abnormal enhancement in the thoracic spine. Canal and foramina: There are small central disc protrusions at T2-T3, T3-T4, T6-T7, T7-T8 and T8-T9 resulting in partial effacement of the ventral thecal sac without cord impingement. Is no neural foraminal narrowing. The thoracic canal and foramina are patent. LUMBAR SPINE FINDINGS: Counting reference: Lumbosacral junction. For the purposes of this report, L4-5 is considered the level of the iliac crest. Localizer images: As above. Alignment: Alignment is anatomic. There is disc desiccation throughout the lumbar spine. Bone marrow signal/fracture: No evidence of pathologic marrow infiltration. No evidence of prior fracture. Conus: The conus is within normal limits of signal intensity and morphology. Paraspinal soft tissues: Paraspinal soft tissues are within normal limits. Enhancement: There is no evidence of abnormal enhancement in the lumbar spine. Lower thoracic spine: Visualized lower thoracic canal and foramina are patent. T12-L1: Canal and foramina are patent. L1-L2: Canal and foramina are patent. L2-L3: Canal and foramina are patent L3-L4: Canal and foramina are patent L4-L5: Canal and foramina are patent L5-S1: There is mild bilateral facet arthropathy and diffuse disc bulge eccentric to the left resulting in mild right and moderate left neural foraminal narrowing. There is no spinal canal stenosis. Sacrum and iliac wings: The visualized sacrum and iliac wings are within normal limits. IMPRESSION: No osseous changes, marrow replacement or abnormal enhancement in the cervical, thoracic and lumbar spine Promotional Demonstrator: [facility] Transcribe Date/Time: Jul 29 2024 3:46P Dictated by : NELSON AVALOS MD This examination was interpreted and the report reviewed and electronically signed by: NELSON AVALOS MD on Jul 29 2024 4:00PM EST [id number] Normal [facility] MRI LUMBAR SPINE WO/W IVCONo n 07-29-2024 MRI LUMBAR SPINE WO/W IVCON * * *Final Report* * * DATE OF EXAM: Jul 29 2024 2:30PM [id number] [id number] - MRI LUMBAR SPINE WO/W IVCON / PROCEDURE REASON: Monoclonal gammopathy * * * * Physician Interpretation * * * * EXAMINATION: MRI LUMBAR SPINE WO/W IVCON, MRI THORACIC SPINE WO/W IVCON, MRI CERVICAL SPINE WO/W IVCON HISTORY: Monoclonal gammopathy TECHNIQUE: Routine Cervical Spine MR Protocol with Gadolinium Routine Gadolinium-Enhanced Thoracic Spine MR Protocol Routine Gadolinium-Enhance Lumbosacral Spine MR Protocol MR Contrast: Dotarem Contrast Dose: 12 cc Route of Administration: IV COMPARISON: Lumbar spine MRI 01/26/2014.. RESULT: CERVICAL SPINE FINDINGS: Counting reference: Craniocervical junction. Localizer images: No significant findings. Alignment: Alignment is anatomic. Craniocervical junction: Craniocervical junction is normal. Cord: The visualized cord is within normal limits of signal intensity and morphology. Bone marrow signal/fracture: There are postoperative findings related to anterior surfaces communicating fusion extending from C4 to C7. There is susceptibility artifact from the hardware which limits evaluation of the associated vertebral bodies. No evidence of pathologic marrow infiltration. No evidence of prior fracture. Cervical soft tissues: The paraspinal soft tissues are within normal limits. Enhancement: There is no evidence of abnormal enhancement in the cervical spine. C2-C3: There is mild bilateral facet arthropathy greater on the right and disc osteophyte complex resulting in mild to moderate right neural foraminal narrowing. There is no spinal canal stenosis. There is no significant left neural foraminal narrowing. C3-C4: There is mild bilateral facet arthropathy and disc osteophyte complex resulting in mild to moderate right neural foraminal narrowing. There is no left neural foraminal narrowing. There is no spinal canal stenosis. C4-C5: Canal and foramina are patent. C5-C6: Canal and foramina are patent. C6-C7: Canal and foramina are patent. C7-T1: Canal and foramina are patent. THORACIC SPINE FINDINGS: Counting Reference: Lumbosacral junction. For the purposes of this report, the most caudal normal disc space in the lumbar region will be labeled as L5-S1. The iliac crest will serve as a secondary landmark to identify the L4-5 level. Localizer images: There is a T2 hyperintense lesion in the superior pole of the left kidney, likely representing a renal cyst. Alignment: Alignment is anatomic. Cord: The visualized cord is within normal limits of signal intensity and morphology. Bone marrow signal/fracture: No evidence of pathologic marrow infiltration. No evidence of prior fracture. Thoracic paraspinal soft tissues: The paraspinal soft tissues are within normal limits. Enhancement: There is no evidence of abnormal enhancement in the thoracic spine. Canal and foramina: There are small central disc protrusions at T2-T3, T3-T4, T6-T7, T7-T8 and T8-T9 resulting in partial effacement of the ventral thecal sac without cord impingement. Is no neural foraminal narrowing. The thoracic canal and foramina are patent. LUMBAR SPINE FINDINGS: Counting reference: Lumbosacral junction. For the purposes of this report, L4-5 is considered the level of the iliac crest. Localizer images: As above. Alignment: Alignment is anatomic. There is disc desiccation throughout the lumbar spine. Bone marrow signal/fracture: No evidence of pathologic marrow infiltration. No evidence of prior fracture. Conus: The conus is within normal limits of signal intensity and morphology. Paraspinal soft tissues: Paraspinal soft tissues are within normal limits. Enhancement: There is no evidence of abnormal enhancement in the lumbar spine. Lower thoracic spine: Visualized lower thoracic canal and foramina are patent. T12-L1: Canal and foramina are patent. L1-L2: Canal and foramina are patent. L2-L3: Canal and foramina are patent L3-L4: Canal and foramina are patent L4-L5: Canal and foramina are patent L5-S1: There is mild bilateral facet arthropathy and diffuse disc bulge eccentric to the left resulting in mild right and moderate left neural foraminal narrowing. There is no spinal canal stenosis. Sacrum and iliac wings: The visualized sacrum and iliac wings are within normal limits. IMPRESSION: No osseous changes, marrow replacement or abnormal enhancement in the cervical, thoracic and lumbar spine Promotional Demonstrator: [facility] Transcribe Date/Time: Jul 29 2024 3:46P Dictated by : NELSON AVALOS MD This examination was interpreted and the report reviewed and electronically signed by: NELSON AVALOS MD on Jul 29 2024 4:00PM EST [id number] Normal [facility] MRI PELVIS ORTHO GEN WO/W IV CONon 07-29-2024 MRI PELVIS ORTHO GEN WO/W IVCON * * *Final Report* * * DATE OF EXAM: Jul 29 2024 2:30PM [id number] [id number] - MRI PELVIS ORTHO GEN WO/W IVCON / PROCEDURE REASON: Monoclonal gammopathy * * * * Physician Interpretation * * * * EXAMINATION: MRI PELVIS ORTHO GEN WO/W IVCON HISTORY: Monoclonal gammopathy MONOCLONAL GAMMOPATHY TECHNIQUE: Routine multiplanar MRI of the pelvis without and with contrast; 12 Dotarem IV COMPARISON: CT abdomen pelvis 08/08/2014, bone survey 06/24/2024 RESULT: Bone Marrow: Chronic left femoral head osteonecrosis, unchanged since 2013, without femoral head flattening, significant arthropathy, or any associated marrow edema. No suspicious marrow replacing lesions are identified. Hip joints: Large [id number] images of the hips are notable for mild/minimal degenerative changes. Left femoral head chronic osteonecrosis as above. Evaluation of articular cartilage and labrum is limited. Sacroiliac joints: Mild to moderate mechanical/degenerative changes along the anterior aspect of the sacroiliac joints with some osteophytes and mild subchondral edema. No erosions or ankylosis. No sacroiliitis. Pubic symphysis: Within normal limits. Tendons: The iliopsoas, hamstring, and rectus femoris tendons are intact. Mild to moderate tendinosis at the left greater than right greater trochanteric gluteus minimus and medius insertions without high-grade tear. Muscles: Focus of hypertrophic bony changes with mild adjacent edema along the gluteus raymond posterior proximal femoral shaft insertion with mild reactive adjacent edema and enhancement along the myofascial insertions on the bone, an incidental finding of doubtful significance. Other: Colonic diverticulosis without diverticulitis. Uterus is absent. Localizer images: No significant additional findings. IMPRESSION: No suspicious osseous lesions in the pelvis on MRI. 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 Promotional Demonstrator: [facility] Transcribe Date/Time: Jul 29 2024 7:44P Dictated by : ROLA MOODY MD This examination was interpreted and the report reviewed and electronically signed by: ROLA MOODY MD on Jul 29 2024 8:20PM EST [id number] Normal [facility] MRI THORACIC SPINE WO/W IVCO Non 07-29-2024 MRI THORACIC SPINE WO/W IVCON * * *Final Report* * * DATE OF EXAM: Jul 29 2024 2:30PM [id number] [id number] - MRI THORACIC SPINE WO/W IVCON / PROCEDURE REASON: Monoclonal gammopathy * * * * Physician Interpretation * * * * EXAMINATION: MRI LUMBAR SPINE WO/W IVCON, MRI THORACIC SPINE WO/W IVCON, MRI CERVICAL SPINE WO/W IVCON HISTORY: Monoclonal gammopathy TECHNIQUE: Routine Cervical Spine MR Protocol with Gadolinium Routine Gadolinium-Enhanced Thoracic Spine MR Protocol Routine Gadolinium-Enhance Lumbosacral Spine MR Protocol MR Contrast: Dotarem Contrast Dose: 12 cc Route of Administration: IV COMPARISON: Lumbar spine MRI 01/26/2014.. RESULT: CERVICAL SPINE FINDINGS: Counting reference: Craniocervical junction. Localizer images: No significant findings. Alignment: Alignment is anatomic. Craniocervical junction: Craniocervical junction is normal. Cord: The visualized cord is within normal limits of signal intensity and morphology. Bone marrow signal/fracture: There are postoperative findings related to anterior surfaces communicating fusion extending from C4 to C7. There is susceptibility artifact from the hardware which limits evaluation of the associated vertebral bodies. No evidence of pathologic marrow infiltration. No evidence of prior fracture. Cervical soft tissues: The paraspinal soft tissues are within normal limits. Enhancement: There is no evidence of abnormal enhancement in the cervical spine. C2-C3: There is mild bilateral facet arthropathy greater on the right and disc osteophyte complex resulting in mild to moderate right neural foraminal narrowing. There is no spinal canal stenosis. There is no significant left neural foraminal narrowing. C3-C4: There is mild bilateral facet arthropathy and disc osteophyte complex resulting in mild to moderate right neural foraminal narrowing. There is no left neural foraminal narrowing. There is no spinal canal stenosis. C4-C5: Canal and foramina are patent. C5-C6: Canal and foramina are patent. C6-C7: Canal and foramina are patent. C7-T1: Canal and foramina are patent. THORACIC SPINE FINDINGS: Counting Reference: Lumbosacral junction. For the purposes of this report, the most caudal normal disc space in the lumbar region will be labeled as L5-S1. The iliac crest will serve as a secondary landmark to identify the L4-5 level. Localizer images: There is a T2 hyperintense lesion in the superior pole of the left kidney, likely representing a renal cyst. Alignment: Alignment is anatomic. Cord: The visualized cord is within normal limits of signal intensity and morphology. Bone marrow signal/fracture: No evidence of pathologic marrow infiltration. No evidence of prior fracture. Thoracic paraspinal soft tissues: The paraspinal soft tissues are within normal limits. Enhancement: There is no evidence of abnormal enhancement in the thoracic spine. Canal and foramina: There are small central disc protrusions at T2-T3, T3-T4, T6-T7, T7-T8 and T8-T9 resulting in partial effacement of the ventral thecal sac without cord impingement. Is no neural foraminal narrowing. The thoracic canal and foramina are patent. LUMBAR SPINE FINDINGS: Counting reference: Lumbosacral junction. For the purposes of this report, L4-5 is considered the level of the iliac crest. Localizer images: As above. Alignment: Alignment is anatomic. There is disc desiccation throughout the lumbar spine. Bone marrow signal/fracture: No evidence of pathologic marrow infiltration. No evidence of prior fracture. Conus: The conus is within normal limits of signal intensity and morphology. Paraspinal soft tissues: Paraspinal soft tissues are within normal limits. Enhancement: There is no evidence of abnormal enhancement in the lumbar spine. Lower thoracic spine: Visualized lower thoracic canal and foramina are patent. T12-L1: Canal and foramina are patent. L1-L2: Canal and foramina are patent. L2-L3: Canal and foramina are patent L3-L4: Canal and foramina are patent L4-L5: Canal and foramina are patent L5-S1: There is mild bilateral facet arthropathy and diffuse disc bulge eccentric to the left resulting in mild right and moderate left neural foraminal narrowing. There is no spinal canal stenosis. Sacrum and iliac wings: The visualized sacrum and iliac wings are within normal limits. IMPRESSION: No osseous changes, marrow replacement or abnormal enhancement in the cervical, thoracic and lumbar spine Promotional Demonstrator: TRI Transcribe Date/Time: Jul 29 2024 3:46P Dictated by : NELSON AVALOS MD This examination was interpreted and the report reviewed and electronically signed by: NELSON AVALOS MD on Jul 29 2024 4:00PM EST [id number] Normal [facility] No Panel Informationon 07-29 IMPRESSION: No osseous changes, marrow replacement or abnormal enhancement in the cervical, thoracic and lumbar spine Promotional Demonstrator: TRI Transcribe Date/Time: Jul 29 2024 3:46P Dictated by : NELSON AVALOS MD This examination was interpreted and the report reviewed and electronically signed by: NELSON AVALOS MD on Jul 29 2024 4:00PM EST DIVISION OF RADIOLOGY Radiology Study observation (narrative) [facility] No Panel InformationOrdered By: Ccignacio Provider on 07-29-2024 [facility] Kwasi 07-06-2024 JAZMINE Telephone (BOBWS) -------- ЮЛИЯ PRASAD ([id number]) 1955 F Date Time Provider Department 07/06/24 SAHRA MORENO During your visit today, we recorded the following information about you: Sahra Moreno APRN.CNP 07/06/2024 11:56 AM Signed Please call patient and let her know there is no mammographic evidence of malignancy. A 1 year screening mammogram is recommended. AISLINN Gonzalez Beth, LPN 07/06/2024 12:45 PM Signed Phoned patient went over results, notes from Sahra Moreno ORGAN TEACHER with understanding. Allergies As of Date: 07/06/2024 Noted Allergy Reaction METRONIDAZOLE 01/25/2014 10 - Anaphylaxis ADHESIVE 04/28/2013 14 - Other: See Comments Comments: redness with bandaids AUGMENTIN (AMOXICILLIN-POT CLAVUL*01/25/2014 14 - Other: See Comments Comments: Thrush/yeast infection CIPROFLOXACIN 01/25/2014 2 - Rash CLINDAMYCIN 10/23/2016 7 - Swelling Comments: throat swelling PENICILLINS 06/09/2012 5 - Intolerance Comments: Yeast infections PROZAC (FLUOXETINE HCL) 10/26/2013 2 - Rash SULFA DYNE 06/09/2012 2 - Rash Date Reviewed: 06/24/2024 Reviewed by: Leann Burton LPN - Fully Assessed Reason for Visit: Results [95] Prescriptions as of 07/06/2024 - metFORMIN (GLUCOPHAGE) 500 mg tablet Take 1 tablet by mouth two times a day with meals. - ondansetron orally disintegrating (ZOFRAN ODT) 4 mg disintegrating tablet Take 1 tablet by mouth every 8 hours as needed. - dulaglutide (TRULICITY) 1.5 mg/0.5 mL pen injector Inject 1.5 mg subcutaneously one time a week. Inject once per week. Discard Pen After - blood sugar diagnostic (ITDatabaseUCH VERIO TEST STRIPS) test strip Test blood sugar(s) 3 times daily. Dx: Type 2 DM - Controlled E11.9 Insulin: No - meloxicam (MOBIC) 15 mg tablet Take 1 tablet by mouth once daily. - rosuvastatin (CRESTOR) 20 mg tablet Take 1 tablet by mouth daily at bedtime. - clobetasol (TEMOVATE) 0.05 % cream apply to rash on legs and hands twice daily 5 days a week as needed. Apply twice daily as needed, up to 21 days per month. Avoid application to the face, armpits, groin. - albuterol HFA (PROVENTIL HFA, VENTOLIN HFA) 90 mcg/actuation inhaler Inhale 2 Puffs as instructed every 4 hours as needed for wheezing/shortness of breath. - furosemide (LASIX) 20 mg tablet Take 1 tablet by mouth once daily. - pantoprazole DR (PROTONIX) 40 mg tablet Take 1 tablet by mouth once daily. - montelukast (SINGULAIR) 10 mg tablet Take 1 tablet by mouth daily at bedtime. - citalopram (CELEXA) 40 mg tablet Take 1 tablet by mouth once daily. - coenzyme Q10 (COENZYME Q-10) 100 mg cap capsule Take 1 capsule by mouth twice daily. - Cholecalciferol, Vitamin D3, 25 mcg (1,000 unit) cap Take 1 capsule by mouth once daily. - fluticasone-salmeterol (ADVAIR, WIXELA) 250-50 mcg/dose Inhale 1 Puff as instructed twice daily. - blood sugar diagnostic (BLOOD GLUCOSE TEST) test strip Test blood sugar(s) 3 times daily. Dx: Type 2 DM - Controlled E11.9 Insulin: No: True Matrix - Lancets lancets Test blood sugar(s) 3 times daily. Dx: Type 2 DM - Controlled E11.9 Insulin: No True matrix - Blood-Glucose Meter monitoring kit Glucose Meter of Choice - Kit - Dx: Type 2 DM - Controlled E11.9 - COMPOUNDED PRESCRIPTION Tens unit DX: DDD of neck and lumbar spine - aspirin, enteric coated (ASPIRIN, ENTERIC COATED) 81 mg EC tablet Take 81 mg by mouth once daily. - traZODone 100 mg tablet Take 100 mg by mouth daily at bedtime. One or two Problem List As Of Date 07/06/2024 Noted Resolved Hyperlipidemia [E78.5] 03/10/2017 Diverticulitis [K57.92] 11/28/2017 Diabetes mellitus [E11.9] 07/19/2015 Dizziness and giddiness [R42] 08/24/2012 12/05/2017 Neoplasm of uncertain behavior of skin [D48.5] 12/09/2012 11/28/2017 Atypical nevus of back [D22.5] 12/09/2012 Atypical nevus of abdominal wall [D22.5] 12/09/2012 12/05/2017 Actinic keratosis [L57.0] 12/09/2012 Irritated//Inflamed Seborrheic Keratoses [L82.0]12/09/2012 12/05/2017 Actinic skin damage [L57.8] 12/09/2012 Melanocytic nevi of face [D22.30] 12/09/2012 Dermatofibroma of right thigh [D23.71] 12/09/2012 Dermatofibroma of forearm [D23.60] 12/09/2012 Other seborrheic keratosis [L82.1] 12/09/2012 Solar Lentigines [L81.4] 12/09/2012 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/19/2013 GERD (gastroesophageal reflux disease) [K21.9] 05/15/2015 Status post cervical spinal fusion [Z98.1] 05/15/2015 12/05/2017 Depression [F32.A] 05/15/2015 Lung nodules [R91.8] 05/15/2015 03/27/2023 Emphysema of lung (HCC) [J43.9] 05/15/2015 03/26/2021 Hypotension [I95.9] 05/15/2015 07/19/2015 Pill dysphagia [R13.10] 05/17/2015 01/24/2022 Type 2 diabetes mellitus with diabetic neuropat*07/19/2015 Postconcussion syndrome [F07.81] 10/30/2015 01/24/2022 Memory loss [R41.3] 10/30/2015 01/24/2022 BPPV (benign paroxysma (more content not included)... Normal [facility] CNCOon 07-05-2024 CNCO HNO ID: [id number] Author: COORDINATOR, MAMMOGRAPHY, ? Service: ? Author Type: Physician Type: Letter Filed: 07/05/2024 12:16 Note Text: July 05, 2024 PID: [id number] Юлия Prasad [address] [place] [address] Dear Ms. Prasad, We are pleased to inform you that the results of your recent breast imaging exam on 07/02/2024 are normal. Breast tissue can be either dense or not dense. Dense tissue makes it harder to find breast cancer on a mammogram and also raises the risk of developing breast cancer. Your breast tissue is not dense. Talk to your healthcare provider about breast density, risks for breast cancer, and your individual situation. Early detection of cancer is very important. We also understand recommendations regarding breast cancer screening are controversial. Please discuss with your primary care provider which strategy is best for you and whether a mammogram is right for you. Your imaging studies and report will be kept on file at [facility] as part of your permanent medical record and are available for your continuing care. Thank you for allowing us to help in meeting your health care needs. Sincerely, Dr. Tejeda Interpreting Radiologist [facility] (Normal over 40) Normal [facility] CARLOS EDUARDO SCREENING W TOMOon 07-02 CARLOS EDUARDO SCREENING W MIGUEL * * *Final Report* * * DATE OF EXAM: Jul 02 2024 1:09PM [id number] - CARLOS EDUARDO SCREENING W MIGUEL / PROCEDURE REASON: Encounter for screening mammogram for breast cancer * * * * Physician Interpretation * * * * RESULT: #[id number] - CARLOS EDUARDO SCREENING W MIGUEL BILATERAL DIGITAL SCREENING MAMMOGRAM TOMOSYNTHESIS WITH CAD: 07/02/2024 HISTORY: Tenderness pain for couple of months bilat outer quad /priors available for comparison Encounter For Screening Mammogram For Breast Cancer. RESULT: TECHNIQUE: The study was acquired using full field digital technology and interpreted from soft copy. Digital Breast Tomosynthesis (DBT) images were obtained and used to assist in the interpretation of this examination. Current study was also evaluated with a Computer Aided Detection (CAD). Comparison is made to exams dated: 03/25/2023 mammogram, 03/29/2021 mammogram - [facility], 07/02/2019 mammogram, and 03/30/2018 mammogram - [facility]. The breasts are almost entirely fatty. No significant masses, calcifications, or other findings are seen in either breast. There has been no significant interval change. IMPRESSION: NEGATIVE There is no mammographic evidence of malignancy. A 1 year screening mammogram is recommended. SUMMARY: Patient reports tenderness/pain in the upper outer quadrants bilaterally. There are no associated mammographic abnormalities. Clinical follow-up and management is suggested. If further diagnostic imaging/ultrasound as clinically indicated, this could be performed in the future. Rachel Tejeda M.D., lm/alexx:07/05/2024 12:16:26 [employer] Utility Worker(s): RT Reta(R)(M), [facility] letter sent: Normal over 40 Mammogram BI-RADS: Category 1: Negative Multiple national specialty organizations have released breast cancer screening guidelines for women at average risk for developing breast cancer - guidelines that are based on both evidence and opinion, yet differ on when to start and how often to screen for breast cancer. With representation from Breast Imaging, Internal Medicine, Women's Health, Family Medicine, and Medical/Surgical Oncology, the [facility] has carefully reviewed the data and reached the following consensus: 1) All women should engage in shared decision-making with their providers to decide when to start and how often to screen; 2) All women should have the opportunity to start screening mammography at age 40; 3) For women ages 45-55, we recommend annual screening mammograms; 4) For women ages 55 and over, we support both the transition from an annual to a biennial interval if this aligns more with patient's values and preferences, or continuation with annual screening; 5) All women should discuss with their providers when to stop screening mammograms. Promotional Demonstrator: Alexx Transcribe Date/Time: Jul 02 2024 12:39P Dictated by: RACHEL TEJEDA MD This examination was interpreted and the report reviewed and electronically signed by: RACHEL TEJEDA MD on Jul 05 2024 12:16PM EST [id number] Normal [facility] CNOVSPon 06-24-2024 CNOVSP Visit (SP) Office (HEMAWS) -------- ЮЛИЯ PRASAD ([id number]) 1955 F Date Time Provider Department 06/24/24 9:50 AM CRISTHIAN SMITH HEMAWS During your visit today, we recorded the following information about you: Temperature Pulse Blood pressure Weight 98.3 degrees 109/minute 127/74 61.7 kg Leann Burton LPN 06/24/2024 11:19 AM Signed Est. Pt, discuss recent labs done 06/02 KEEGAN Ayala Paul A, DO 06/24/2024 11:19 AM Signed Hematologic problem(s): 1) Possible MGUS. HPI: The patient is a 68-year-old female with a past medical history as outlined below. Establish with new PCP prior to referral here. Had lab work done through [facility] that showed an increase in serum globulin level. Protein electrophoresis was ordered and demonstrated a faint band in the gamma region suspicious for monoclonal gammopathy. Further workup was recommended. Was also found to have low serum iron and iron saturation. Chemistry significant for total serum protein of 8.2 g/dL. Albumin 4.5 g/dL. Serum creatinine 1.03 mg/dL. CBC demonstrated hemoglobin 12.8 g/dL. Total white count and platelet count normal. Spot urine negative for protein by dipstick analysis. Has had mild increase in serum protein in the past. No MP by electrophoresis on 3 occasions here. Per initial office visit: Fatigued. Pain in both tarango bones for about a month. Restless legs at night. Previous bone donor site from left iliac bone to do cervical graft hurts all the time. Bones in feet hurt. They feel weak, feel like feet don't want to work when I stand up. Hands hurt. ANDRES that fluctuates. Most recent EGD 03/14/2022 AG. Report in notes. C-scope 12/2017. Hyperplastic polyp. Was on oral iron years ago. Bad constipation. Presents for ongoing hematologic management. Interim history: Continues to get cramping in her feet and anterior shins. Always fatigued. PAST MEDICAL HISTORY No date: Back pain Comment: on SSI for this No date: Carpal tunnel 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 No date: Depression No date: Diabetes mellitus (HCC) No date: Diverticulitis No date: Dysphagia 05/15/2015: Emphysema of lung (HCC) 08/07/2022: Essential hypertension No date: GI bleed 04/2016: History of squamous cell carcinoma Comment: Right nasal tip No date: Hyperlipidemia No date: Lung nodules 03/10/2017: PAD (peripheral artery disease) (HCC) Comment: 02/06/2022 PVR ank/jackson/toe bilat: RIGHT SIDE JITENDRA: 1.19; TBI: 0.84, WNL at rest LEFT SIDE: JITENDRA: 1.19; TBI: 0.96, WNL at rest 12/08/2017: Pulmonary HTN (HCC) Comment: mild 06/24/2016: Squamous cell skin cancer, nasal tip 03/28/2017: Tobacco abuse PAST SURGICAL HISTORY 09/2004: ADDTL NECK SPINE FUSION 2000: CHOLECYSTECTOMY 1983: COLONOSCOPY 09/01/2012: COLONOSCOPY FLX DX W/COLLJ SPEC WHEN PFRMD No date: COLONOSCOPY FLX DX W/COLLJ SPEC WHEN PFRMD Comment: Done in [place] unable to obtain 11/17/2013: COLONOSCOPY FLX DX W/COLLJ SPEC WHEN PFRMD Comment: Colonoscopy 12/24/2017: COLONOSCOPY FLX DX W/COLLJ SPEC WHEN PFRMD Comment: Colonoscopy 06/04/2013: ESOPHAGOGASTRODUODENOSCO PY TRANSORAL DIAGNOSTIC Comment: EGD 05/17/2015: ESOPHAGOGASTRODUODENOSCO PY TRANSORAL DIAGNOSTIC Comment: EGD 12/24/2017: ESOPHAGOGASTRODUODENOSCO PY TRANSORAL DIAGNOSTIC Comment: EGD 04/12/2024: FNA (FINE NEEDLE ASPIRATION) Comment: right thyroid 1984: HYSTERECTOMY HX Comment: Pelvic pain AND DUB 08/27/2018: NEUROPLASTY AND/TRANSPOS MEDIAN NRV CARPAL TUNNE; Bilateral Comment: Bilateral carpal tunnel release 1985: OOPHORECTOMY PARTIAL/TOTAL UNI/BI Comment: Bilateral No date: PAST SURGICAL HISTORY OF Comment: removed tissue nose for SCC 10/13/2017: PAST SURGICAL HISTORY OF Comment: Excision nasal mass, Dr Juarez Harris No date: REMOVE TONSIL AND ADENOI UNDER AGE 14 2002: SLING OPER STRES INCONTINENCE ALLERGIES Allergen Reactions Metronidazole Anaphylaxis Adhesive Other: See Comments redness with bandaids Augmentin [Amoxicil* Other: See Comments Thrush/yeast infection Ciprofloxacin Rash Clindamycin Swelling throat swelling Penicillins Intolerance Yeast infections Prozac [Fluoxetine * Rash Sulfa Dyne Rash Current Outpatient Medications Medication Sig metFORMIN (GLUCOPHAGE) 500 mg tablet Take 1 tablet by mouth two times a day with meals. ondansetron orally disintegrating (ZOFRAN ODT) 4 mg disintegrating tablet Take 1 tablet by mouth every 8 hours as needed. dulaglutide (TRULICITY) 1.5 mg/0.5 mL pen injector Inject 1.5 mg subcutaneously one time a week. Inject once per week. Discard Pen After blood sugar diagnostic (ONETOUCH VERIO TEST STRIPS) test strip Test blood sugar(s) 3 times daily. Dx: Type 2 DM - Controlled E11.9 Insulin: No meloxicam (MOBIC) 15 mg tablet Take 1 tablet by mouth once daily. rosuvastatin (CRESTOR) 20 mg tablet Take 1 tablet by mouth daily at bed (more content not included)... Normal [facility] XR BONE SURVEY ROUTINEon XR BONE SURVEY ROUTINE * * *Final Report * * * DATE OF EXAM: Jun 24 2024 11:16AM [id number] - XR BONE SURVEY ROUTINE / PROCEDURE REASON: Monoclonal gammopathy * * * * Physician Interpretation * * * * EXAMINATION: XR BONE SURVEY ROUTINE CLINICAL HISTORY: Monoclonal gammopathy Technique: XR BONE SURVEY ROUTINE -- NOT APPLICABLE with 19 views on 17 images Comparison: None RESULT: Skull: No lytic lesion. Paranasal sinuses appear clear. Cervical, thoracic and lumbar spine: Anterior fusion of the cervical spine from C5 through C7. Multilevel degenerative disc disease. No fracture or lytic lesion. Chest and ribs: Lungs appear clear. No rib fracture or lytic lesion. Pelvis: No fracture or lytic lesion Upper and lower extremities: No fracture or lytic lesion IMPRESSION: No acute fracture or lytic lesion Promotional Demonstrator[facility] Transcribe Date/Time: Jun 29 2024 4:51P Dictated by : AYANNA ASHBY MD This examination was interpreted and the report reviewed and electronically signed by: AYANNA ASHBY MD on Jun 29 2024 5:04PM EST [id number] [facility] ЮЛИЯ PRASAD ([id number]) 1955 F Date Time Provider Department 06/21/24 NO PCP FAMPWS During your visit today, we recorded the following information about you: Alicia Tidwell RN 06/21/2024 12:14 PM Signed Patient calls to schedule an appointment with Dr. Carranza for bilateral tarango pain and ankle cramping. Noted she isn't establishing until 09/01/2024. Recommended she contact Dr. Raymond's office that is listed as her current PCP. Patient reports she is unable to do that as he is no longer her PCP as he wasn't responsive to her requests. Reviewed notes patient has been having symptoms as reported in notes from Dr. Smith. 06/02/2024. Has follow up 06/24/2024. Recommend continuing to follow with Luis. 06/02/[address] Luis Frederick. Pain in both tarango bones for about a month. Restless legs at night. Previous bone donor site from left iliac bone to do cervical graft hurts all the time. Bones in feet hurt. They feel weak, feel like feet don't want to work when I stand up. Hands hurt. ANDRES that fluctuates. ASSESSMENT/PLAN: (D47.2) Monoclonal gammopathy (primary encounter diagnosis) Assessment: -Patient is a 68-year-old female recently found to have a possible monoclonal protein on serum protein electrophoresis. -History of osteopenia. -Discussed stepwise workup. If has clear evidence of monoclonal gammopathy then MRI and decide on next steps in workup including potential for bone marrow biopsy. -Iron deficiency. Intolerant to oral iron in the past. Longstanding PPI use. Plan: -Labs today to include CBC, chemistry panel, LDH, beta-2 microglobulin, LDH, protein electrophoresis and immunofixation of serum and a 24-hour urine specimen. -Check iron. 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 -OV following above. Potential MRI an bone marrow biopsy pending above Please review and advise, BERE Lemon Krystle, RN 06/21/2024 12:48 PM Signed Spoke to provider's office and received recommendation to review with Dr. Smith and if not willing to address it then would recommend ER or EC. Notified patient who verbalizes understanding. Alicia Tidwell RN Allergies As of Date: 06/21/2024 Noted Allergy Reaction METRONIDAZOLE 01/25/2014 10 - Anaphylaxis ADHESIVE 04/28/2013 14 - Other: See Comments Comments: redness with bandaids AUGMENTIN (AMOXICILLIN-POT CLAVUL*01/25/2014 14 - Other: See Comments Comments: Thrush/yeast infection CIPROFLOXACIN 01/25/2014 2 - Rash CLINDAMYCIN 10/23/2016 7 - Swelling Comments: throat swelling PENICILLINS 06/09/2012 5 - Intolerance Comments: Yeast infections PROZAC (FLUOXETINE HCL) 10/26/2013 2 - Rash SULFA DYNE 06/09/2012 2 - Rash Date Reviewed: 06/02/2024 Reviewed by: Celso Meredith MA - Fully Assessed Reason for Visit: Patient Question [3297] Prescriptions as of 06/21/2024 - metFORMIN (GLUCOPHAGE) 500 mg tablet Take 1 tablet by mouth two times a day with meals. - ondansetron orally disintegrating (ZOFRAN ODT) 4 mg disintegrating tablet Take 1 tablet by mouth every 8 hours as needed. - dulaglutide (TRULICITY) 1.5 mg/0.5 mL pen injector Inject 1.5 mg subcutaneously one time a week. Inject once per week. Discard Pen After - blood sugar diagnostic (Blueprint GeneticsTOUCH VERIO TEST STRIPS) test strip Test blood sugar(s) 3 times daily. Dx: Type 2 DM - Controlled E11.9 Insulin: No - fluticasone-salmeterol (ADVAIR DISKUS) 250-50 mcg/dose inhaler Inhale 1 Puff as instructed two times a day. RINSE AND GARGLE MOUTH WITH WATER AFTER EACH USE. - meloxicam (MOBIC) 15 mg tablet Take 1 tablet by mouth once daily. - rosuvastatin (CRESTOR) 20 mg tablet Take 1 tablet by mouth daily at bedtime. - clobetasol (TEMOVATE) 0.05 % cream apply to rash on legs and hands twice daily 5 days a week as needed. Apply twice daily as needed, up to 21 days per month. Avoid application to the face, armpits, groin. - albuterol HFA (PROVENTIL HFA, VENTOLIN HFA) 90 mcg/actuation inhaler Inhale 2 Puffs as instructed every 4 hours as needed for wheezing/shortness of breath. - furosemide (LASIX) 20 mg tablet Take 1 tablet by mouth once daily. - pantoprazole DR (PROTONIX) 40 mg tablet Take 1 tablet by mouth once daily. - montelukast (SINGULAIR) 10 mg tablet Take 1 tablet by mouth daily at bedtime. - citalopram (CELEXA) 40 mg tablet Take 1 tablet by mouth once daily. - coenzyme Q10 (COENZYME Q-10) 100 mg cap capsule Take 1 capsule by mouth twice daily. - Cholecalciferol, Vitamin D3, 25 mcg (1,000 unit) cap Take 1 capsule by mouth once daily. - Fluorouracil (EFUDEX) 5 % cream Apply to affected areas twice daily for 2-4 weeks or until red blistering reaction occurs. - fluticasone-salmeterol (ADVAIR, WIXELA) 250-50 mcg/dose Inhale 1 Puff as instructed twice daily. - blood sugar diagnostic (more content not included)... Normal [facility] MONOCLONAL PROT 24 UR W/INTE RPon 06-07-2024 INTERPRETATION (UMPA) Poorly defined reg ion of restricted mobility in IgG and lambda lanes. Pattern is less well defined or fainter than typically seen in monoclonal gammopathy. This could represent either an atypical presentation of polyclonal immunoglobulins or the presence of a low level IgG lambda monoclonal gammopathy. If clinically indicated, serum monoclonal protein analysis and serum free light chain measurements are recommended to evaluate further for monoclonal gammopathy. Clinical correlation is necessary. Normal [facility] Comment on above: Order Comment: Speci men Type: URINE SPECIMENOrdering Facility: [facility] Address: [address] [place] [address] Performed By: #### U [id number] ####[facility] [id number] [address] STAFF REVIEW ([place]) Reviewed by Ileana Marina M.D. Normal [facility] Comment on above: Order Comment: Speci men Type: URINE SPECIMENOrdering Facility: [facility] Address: [address] [place] [address] Performed By: #### U 24MPA ####[facility] [id number] [address] UMPA RESULT A poorly defined reg ion of restricted mobility is present that may represent an M protein. Abnormal No M protein is identified. [facility] Comment on above: Order Comment: Speci men Type: URINE SPECIMENOrdering Facility: [facility] Address: [address] [place] [address] Performed By: #### U 24MPA ####[facility] [id number] [place] [address] [place] PROT ELEC UR 24HR W/M SPIKE (P)on 06-07-2024 Albumin/Globulin Elph (24H U) [Mass ratio] 44.90 % Normal [facility] Comment on above: Order Comment: Speci men Type: URINE SPECIMENOrdering Facility: [facility] Address: [address] [place] [address] Performed By: #### L [id number] ####[facility] [id number] [place] [address] [place] Alpha 1 globulin Elph (24H U) [Mass fraction] 4.12 % Normal [facility] Comment on above: Order Comment: Speci men Type: URINE SPECIMENOrdering Facility: [facility] Address: [address] [place] [address] Performed By: #### L [id number] ####[facility] [id number] [place] [address] [place] Alpha 2 globulin Elph (24H U) [Mass fraction] 19.19 % Normal [facility] Comment on above: Order Comment: Speci men Type: URINE SPECIMENOrdering Facility: [facility] Address: [address] [place] [address] Performed By: #### L [id number] ####[facility] [id number] [place] [address] [place] Beta globulin Elph (24H U) [Mass fraction] 15.41 % Normal [facility] Comment on above: Order Comment: Speci men Type: URINE SPECIMENOrdering Facility: [facility] Address: [address] [place] [address] Performed By: #### L [id number] ####[facility] [id number] [place] [address] [place] Gamma globulin Elph (24H U) [Mass fraction] 16.37 % Normal [facility] Comment on above: Order Comment: Speci men Type: URINE SPECIMENOrdering Facility: [facility] Address: [address] [place] [address] Performed By: #### L [id number] ####[facility] [id number] [place] [address] [place] INTERPRETATION COMMENT FOR PROTEIN ELECTROPHORESIS The atypical region is relatively poorly defined and may represent an unusual presentation of polyclonal immunoglobulins, but cannot rule out the presence of a low level M protein. If clinically indicated, monoclonal protein analysis and serum free light chain analysis are suggested to evaluate further for monoclonal gammopathy. Normal [facility] Comment on above: Order Comment: Speci men Type: URINE SPECIMENOrdering Facility: [facility] Address: [address] [place] [address] Performed By: #### L [id number] ####[facility] LABIA [id number] [address] [place] Protein Fractions Elph Helder (24H U) [Interp] No definitive M protein is identified on protein electrophoresis. Normal No definitive M protein is identified on protein electrophor esis. [facility] Comment on above: Order Comment: Speci men Type: URINE SPECIMENOrdering Facility: [facility] Address: [address] [place] [address] Performed By: #### L [id number] ####[facility]ITALIA [id number] [place] [address] [place] Protein.monoclonal Elph (24H U) [Mass/Time] 0.00 g/24hr Normal [facility] Comment on above: Order Comment: Speci men Type: URINE SPECIMENOrdering Facility: [facility] Address: [address] [place] [address] Performed By: #### L [id number] ####[facility] [id number] [place] [address] [place] STAFF REVIEW ([id number]) Reviewed by Ileana Marina M.D. Normal [facility] Comment on above: Order Comment: Speci men Type: URINE SPECIMENOrdering Facility: [facility] Address: [address] [place] [address] Performed By: #### L [id number] ####[facility] [id number] [place] [address] [place] Prot 24h Ur-mRateon 06-07-20 24 Protein (24H U) [Mass/Time] 0.38 g/24 Hr High <0.15 [facility] Comment on above: Order Comment: Speci men Type: URINE SPECIMENOrdering Facility: [facility] Address: [address] [place] [address] Result Comment: Adul t Proteinuria Categories: <0.15 g/24 hours is considered normal to mildly increased 0.15 - 0.50 g/24 hours is considered moderately increased >0.50 g/24 hours is considered severely increased KDIGO. (2013). KDIGO 2012 Clinical Practice Guideline for the Evaluation and Management of Chronic Kidney Disease. Official Journal of the International Society of Nephrology, 3(1), 1-150. Performed By: #### 2 889-4 ####[facility] [id number] [address] [id number] [place] [address] [place] OF [facility] Protein (24H U) [Mass/Time]o n 06-07-2024 PERIOD (HRS) 24 hr Normal [facility] Comment on above: Order Comment: Speci men Type: URINE SPECIMENOrdering Facility: [facility] Address: [address] [place] [address] Performed By: #### 2 889-4 ####[facility] [id number] [address] [id number] [place] [address] [place] Specimen volume (24H U) 3.2 L Normal [facility] Comment on above: Order Comment: Speci men Type: URINE SPECIMENOrdering Facility: [facility] Address: [address] [place] [address] Performed By: #### 2 889-4 ####[facility] [id number] [address] KEVIN [facility] FREEDOMJIMENA [id number] [place] [address] [facility] Kwasi 06-06-2024 CNPN Telephone (DAYAN) -------- ЮЛИЯ PRASAD ([id number]) 1955 F Date Time Provider Department 06/06/24 CRISTHIAN SMITH During your visit today, we recorded the following information about you: Cristhian Smith DO 06/06/2024 3:49 PM Signed Can let her know labs so far do show anything worrisome. 24 hour urine collection in process? Keep OV. DO James Joy Pamela S, LPN 06/07/2024 9:25 AM Signed Poke with pt. Given information concerning lab results, Started the urine collection this morning 06/07 Does plan on keeping F/U OV KEEGAN Ayala Paul A, DO 06/07/2024 1:00 PM Signed Okay. Thanks. Just wanted to be sure it wasn't forgotten. Cristhian Smith DO Allergies As of Date: 06/06/2024 Noted Allergy Reaction METRONIDAZOLE 01/25/2014 10 - Anaphylaxis ADHESIVE 04/28/2013 14 - Other: See Comments Comments: redness with bandaids AUGMENTIN (AMOXICILLIN-POT CLAVUL*01/25/2014 14 - Other: See Comments Comments: Thrush/yeast infection CIPROFLOXACIN 01/25/2014 2 - Rash CLINDAMYCIN 10/23/2016 7 - Swelling Comments: throat swelling PENICILLINS 06/09/2012 5 - Intolerance Comments: Yeast infections PROZAC (FLUOXETINE HCL) 10/26/2013 2 - Rash SULFA DYNE 06/09/2012 2 - Rash Date Reviewed: 06/02/2024 Reviewed by: Celso Meredith MA - Fully Assessed Reason for Visit: Results [95] Prescriptions as of 06/07/2024 - metFORMIN (GLUCOPHAGE) 500 mg tablet Take 1 tablet by mouth two times a day with meals. - ondansetron orally disintegrating (ZOFRAN ODT) 4 mg disintegrating tablet Take 1 tablet by mouth every 8 hours as needed. - dulaglutide (TRULICITY) 1.5 mg/0.5 mL pen injector Inject 1.5 mg subcutaneously one time a week. Inject once per week. Discard Pen After - blood sugar diagnostic (ITDatabaseUCH VERIO TEST STRIPS) test strip Test blood sugar(s) 3 times daily. Dx: Type 2 DM - Controlled E11.9 Insulin: No - fluticasone-salmeterol (ADVAIR DISKUS) 250-50 mcg/dose inhaler Inhale 1 Puff as instructed two times a day. RINSE AND GARGLE MOUTH WITH WATER AFTER EACH USE. - meloxicam (MOBIC) 15 mg tablet Take 1 tablet by mouth once daily. - rosuvastatin (CRESTOR) 20 mg tablet Take 1 tablet by mouth daily at bedtime. - clobetasol (TEMOVATE) 0.05 % cream apply to rash on legs and hands twice daily 5 days a week as needed. Apply twice daily as needed, up to 21 days per month. Avoid application to the face, armpits, groin. - albuterol HFA (PROVENTIL HFA, VENTOLIN HFA) 90 mcg/actuation inhaler Inhale 2 Puffs as instructed every 4 hours as needed for wheezing/shortness of breath. - furosemide (LASIX) 20 mg tablet Take 1 tablet by mouth once daily. - pantoprazole DR (PROTONIX) 40 mg tablet Take 1 tablet by mouth once daily. - montelukast (SINGULAIR) 10 mg tablet Take 1 tablet by mouth daily at bedtime. - citalopram (CELEXA) 40 mg tablet Take 1 tablet by mouth once daily. - coenzyme Q10 (COENZYME Q-10) 100 mg cap capsule Take 1 capsule by mouth twice daily. - Cholecalciferol, Vitamin D3, 25 mcg (1,000 unit) cap Take 1 capsule by mouth once daily. - Fluorouracil (EFUDEX) 5 % cream Apply to affected areas twice daily for 2-4 weeks or until red blistering reaction occurs. - fluticasone-salmeterol (ADVAIR, WIXELA) 250-50 mcg/dose Inhale 1 Puff as instructed twice daily. - blood sugar diagnostic (BLOOD GLUCOSE TEST) test strip Test blood sugar(s) 3 times daily. Dx: Type 2 DM - Controlled E11.9 Insulin: No: True Matrix - Lancets lancets Test blood sugar(s) 3 times daily. Dx: Type 2 DM - Controlled E11.9 Insulin: No True matrix - buPROPion XL (WELLBUTRIN XL) 150 mg 24 hr tablet Take 150 mg by mouth once daily. - Blood-Glucose Meter monitoring kit Glucose Meter of Choice - Kit - Dx: Type 2 DM - Controlled E11.9 - COMPOUNDED PRESCRIPTION Tens unit DX: DDD of neck and lumbar spine - aspirin, enteric coated (ASPIRIN, ENTERIC COATED) 81 mg EC tablet Take 81 mg by mouth once daily. - traZODone 100 mg tablet Take 100 mg by mouth daily at bedtime. One or two - busPIRone 5 mg tablet Take 5 mg by mouth twice daily. Problem List As Of Date 06/06/2024 Noted Resolved Hyperlipidemia [E78.5] 03/10/2017 Diverticulitis [K57.92] 11/28/2017 Diabetes mellitus [E11.9] 07/19/2015 Dizziness and giddiness [R42] 08/24/2012 12/05/2017 Neoplasm of uncertain behavior of skin [D48.5] 12/09/2012 11/28/2017 Atypical nevus of back [D22.5] 12/09/2012 Atypical nevus of abdominal wall [D22.5] 12/09/2012 12/05/2017 Actinic keratosis [L57.0] 12/09/2012 Irritated//Inflamed Seborrheic Keratoses [L82.0]12/09/2012 12/05/2017 Actinic skin damage [L57.8] 12/09/2012 Melanocytic nevi of face [D22.30] 12/09/2012 Dermatofibroma of right thigh [D23.71] 12/09/2012 Dermatofibroma of forearm [D23.60] 12/09/2012 Other seborrheic keratosis [L82.1] 12/09/2012 Solar Lentigines [L81.4] 12/09/2012 Maribel (more content not included)... Normal [facility] B2 Microglob SerPl-mCncon Mwur-4-Phxbvztvcejoj [Mass/Vol] 2.3 ug/mL Normal <3.1 [facility] Comment on above: Order Comment: Speci men Type: BLOOD SPECIMENOrdering Facility: [facility] Address: [address] [place] [address] Result Comment: Beta -2 Microglobulin test is performed using the [employer] immunoturbidimetric method. Results obtained with different methods or kits cannot be used interchangeably. Performed By: #### 2 276-4, 1952-1, 2885-2, 37812-9 ####[facility] [id number] [place] [address] [place] CBC W Auto Differential pane l (Bld)on 06-02-2024 Basophils (Bld) [#/Vol] 0.04 10*3/uL [facility] Basophils/100 WBC (Bld) 0.5 % [facility] Differential cell count method Nom (Bld) Auto [facility] Eosinophils (Bld) [#/Vol] 0.11 10*3/uL [facility] Eosinophils/100 WBC (Bld) 1.5 % [facility] Erythrocyte distribution width (RBC) [Ratio] 13.3 % 11.5 - 15.0 % [facility] Hematocrit (Bld) [Volume fraction] 36.1 % 36.0 - 46.0 % [facility] Hemoglobin (Bld) [Mass/Vol] 11.9 g/dL 11.5 - 15.5 g/dL [facility] Immature granulocytes (Bld) [#/Vol] NINF [facility] Immature granulocytes/100 WBC (Bld) 0.1 % [facility] Lymphocytes (Bld) [#/Vol] 3.34 10*3/uL [facility] Lymphocytes/100 WBC (Bld) 45.1 % [facility] MCH (RBC) [Entitic mass] 29.0 pg 26. 0 - 34.0 pg [facility] MCHC (RBC) [Mass/Vol] 33.0 g/dL 30.5 - 36.0 g/dL [facility] MCV (RBC) [Entitic vol] 88.0 fL 80.0 - 100.0 fL [facility] Monocytes (Bld) [#/Vol] 0.40 10*3/uL [facility] Monocytes/100 WBC (Bld) 5.4 % [facility] Neutrophils (Bld) [#/Vol] 3.50 10*3/uL [facility] Neutrophils/100 WBC (Bld) 47.4 % [facility] Nucleated RBC (Bld) [#/Vol] NINF [facility] Nucleated RBC/100 WBC (Bld) [Ratio] 0.0 % /100 WBC [facility] Platelet mean volume (Bld) [Entitic vol] 9.7 fL 9.0 - 12.7 fL [facility] Platelets (Bld) [#/Vol] 232 10*3/uL [facility] RBC (Bld) [#/Vol] 4.10 10*6/uL 3.90 - 5.2 0 m/uL [facility] WBC (Bld) [#/Vol] 7.40 10*3/uL [facility] Basophils (Bld) [#/Vol] 0.04 10*3/uL Normal <0.11 [facility] Comment on above: Order Comment: Speci men Type: BLOOD SPECIMENOrdering Facility: [facility] Address: [address] [place] [address] Performed By: #### 5 7021-8 ####[facility] [id number] [address] STATES OF [facility] Basophils/100 WBC (Bld) 0.5 % Normal [facility] Comment on above: Order Comment: Speci men Type: BLOOD SPECIMENOrdering Facility: [facility] Address: [address] [place] [address] Performed By: #### 5 7021-8 ####[facility] [id number] [place] [address] [place] Differential cell count method Nom (Bld) Auto Normal [facility] Comment on above: Order Comment: Speci men Type: BLOOD SPECIMENOrdering Facility: [facility] Address: [address] [place] [address] Performed By: #### 5 7021-8 ####[facility] MILLTOWNCLIA [id number] [place] [address] [place] Eosinophils (Bld) [#/Vol] 0.11 10*3/uL Normal <0.46 [facility] Comment on above: Order Comment: Speci men Type: BLOOD SPECIMENOrdering Facility: [facility] Address: [address] [place] [address] Performed By: #### 5 7021-8 ####[facility]ITALWGABBYLIA [id number] [place] [address] [place] Eosinophils/100 WBC (Bld) 1.5 % Normal [facility] Comment on above: Order Comment: Speci men Type: BLOOD SPECIMENOrdering Facility: [facility] Address: [address] [place] [address] Performed By: #### 5 7021-8 ####[facility] CENTERGABBYLIA [id number] [place] [address] [place] Erythrocyte distribution width (RBC) [Ratio] 13.3 % Normal 11.5-15.0 [facility] Comment on above: Order Comment: Speci men Type: BLOOD SPECIMENOrdering Facility: [facility] Address: [address] [place] [address] Performed By: #### 5 7021-8 ####[facility]ITALWNCLIA [id number] [place] [address] [place] Hematocrit (Bld) [Volume fraction] 36.1 % Normal 36.0-46.0 [facility] Comment on above: Order Comment: Speci men Type: BLOOD SPECIMENOrdering Facility: [facility] Address: [address] [place] [address] Performed By: #### 5 7021-8 ####[facility]ENTERNCLIA [id number] [place] [address] [place] Hemoglobin (Bld) [Mass/Vol] 11.9 g/dL Normal 11.5-15.5 [facility] Comment on above: Order Comment: Speci men Type: BLOOD SPECIMENOrdering Facility: [facility] Address: [address] [place] [address] Performed By: #### 5 7021-8 ####[facility]ITALWNCLIA [id number] [place] [address] [place] Immature granulocytes (Bld) [#/Vol] 10*3/uL Normal <0.10 [facility] Comment on above: Order Comment: Speci men Type: BLOOD SPECIMENOrdering Facility: [facility] Address: [address] [place] [address] Performed By: #### 5 7021-8 ####[facility]ITALLIA [id number] [address] [place] Immature granulocytes/100 WBC (Bld) 0.1 % Normal [facility] Comment on above: Order Comment: Speci men Type: BLOOD SPECIMENOrdering Facility: [facility] Address: [address] [place] [address] Performed By: #### 5 7021-8 ####[facility]OSPITALLIA [id number] [place] [address] [place] Lymphocytes (Bld) [#/Vol] 3.34 10*3/uL Normal 1.00-4.00 [facility] Comment on above: Order Comment: Speci men Type: BLOOD SPECIMENOrdering Facility: [facility] Address: [address] [place] [address] Performed By: #### 5 7021-8 ####[facility]ITALLIA [id number] [place] [address] [place] Lymphocytes/100 WBC (Bld) 45.1 % Normal [facility] Comment on above: Order Comment: Speci men Type: BLOOD SPECIMENOrdering Facility: [facility] Address: [address] [place] [address] Performed By: #### 5 7021-8 ####[facility] MARGUERITEEAST FREEDOMJIMENA [id number] [place] [address] [place] MCH (RBC) [Entitic mass] 29.0 pg Normal 26.0-34.0 [facility] Comment on above: Order Comment: Speci men Type: BLOOD SPECIMENOrdering Facility: [facility] Address: [address] [place] [address] Performed By: #### 5 7021-8 ####[facility] [id number] [place] [address] [place] MCHC (RBC) [Mass/Vol] 33.0 g/dL Normal 30.5-36.0 [facility] Comment on above: Order Comment: Speci men Type: BLOOD SPECIMENOrdering Facility: [facility] Address: [address] [place] [address] Performed By: #### 5 7021-8 ####[facility] [id number] [place] [address] [place] MCV (RBC) [Entitic vol] 88.0 fL Normal 80.0-100.0 [facility] Comment on above: Order Comment: Speci men Type: BLOOD SPECIMENOrdering Facility: [facility] Address: [address] [place] [address] Performed By: #### 5 7021-8 ####[facility] [id number] [place] [address] [place] Monocytes (Bld) [#/Vol] 0.40 10*3/uL Normal <0.87 [facility] Comment on above: Order Comment: Speci men Type: BLOOD SPECIMENOrdering Facility: [facility] Address: [address] [place] [address] Performed By: #### 5 7021-8 ####[facility] MILLWNCLIA [id number] [place] [address] [place] Monocytes/100 WBC (Bld) 5.4 % Normal [facility] Comment on above: Order Comment: Speci men Type: BLOOD SPECIMENOrdering Facility: [facility] Address: [address] [place] [address] Performed By: #### 5 7021-8 ####[facility]ITALL[facility] [id number] [place] [address] [place] Neutrophils (Bld) [#/Vol] 3.50 10*3/uL Normal 1.45-7.50 [facility] Comment on above: Order Comment: Speci men Type: BLOOD SPECIMENOrdering Facility: [facility] Address: [address] [place] [address] Performed By: #### 5 7021-8 ####[facility] [id number] [place] [address] [place] Neutrophils/100 WBC (Bld) 47.4 % Normal [facility] Comment on above: Order Comment: Speci men Type: BLOOD SPECIMENOrdering Facility: [facility] Address: [address] [place] [address] Performed By: #### 5 7021-8 ####[facility]ITALL[facility] [id number] [place] [address] [place] Nucleated RBC (Bld) [#/Vol] 10*3/uL Normal <0.01 [facility] Comment on above: Order Comment: Speci men Type: BLOOD SPECIMENOrdering Facility: [facility] Address: [address] [place] [address] Performed By: #### 5 7021-8 ####[facility]ENTERNCA [id number] [place] [address] [place] Nucleated RBC/100 WBC (Bld) [Ratio] 0.0 /100 WBC Normal [facility] Comment on above: Order Comment: Speci men Type: BLOOD SPECIMENOrdering Facility: [facility] Address: [address] [place] [address] Performed By: #### 5 7021-8 ####[facility]ERNCLIA [id number] [place] [address] [place] Platelet mean volume (Bld) [Entitic vol] 9.7 fL Normal 9.0-12.7 [facility] Comment on above: Order Comment: Speci men Type: BLOOD SPECIMENOrdering Facility: [facility] Address: [address] [place] [address] Performed By: #### 5 7021-8 ####[facility] [id number] [place] [address] [place] Platelets (Bld) [#/Vol] 232 10*3/uL Normal 150-400 [facility] Comment on above: Order Comment: Speci men Type: BLOOD SPECIMENOrdering Facility: [facility] Address: [address] [place] [address] Performed By: #### 5 7021-8 ####[facility]ENTERNCLIA [id number] [place] [address] [place] RBC (Bld) [#/Vol] 4.10 10*6/uL Normal 3.90-5.20 [facility] Comment on above: Order Comment: Speci men Type: BLOOD SPECIMENOrdering Facility: [facility] Address: [address] [place] [address] Performed By: #### 5 7021-8 ####[facility]ERNCLIA [id number] [place] [address] [place] WBC (Bld) [#/Vol] 7.40 10*3/uL Normal 3.70-11.00 [facility] Comment on above: Order Comment: Giovana alejandre Type: BLOOD SPECIMENOrdering Facility: [facility] Address: [address] [place] [id number] Performed By: #### 5 7021-8 ####[facility] KEVIN MOREL [id number] [address] [place] CNOVSPon 06-02-2024 CNOVSP Visit (SP) Office (HEMAWS) -------- ЮЛИЯ PRASAD ([id number]) 1955 F Date Time Provider Department 06/02/24 8:50 AM CRISTHIAN SMITH During your visit today, we recorded the following information about you: Temperature Pulse Blood pressure Weight 97.9 degrees 76/minute 124/76 63.5 kg Height 1.56 m Cristhian Smith DO 06/02/2024 9:52 AM Signed Portions of this documentation were copied and pasted from previous office visit notes in order to provide a cohesive continuity of the history. The note has been reviewed and edited and updated as necessary. HPI: The patient is a 68-year-old female with a past medical history as outlined below. Recently had lab work that showed an increase in serum globulin level. Protein electrophoresis was ordered and demonstrated a faint band in the gamma region suspicious for monoclonal gammopathy. Further workup was recommended. Was also found to have low serum iron and iron saturation. Chemistry significant for total serum protein of 8.2 g/dL. Albumin 4.5 g/dL. Serum creatinine 1.03 mg/dL. CBC demonstrated hemoglobin 12.8 g/dL. Total white count and platelet count normal. Spot urine negative for protein by dipstick analysis. Has had mild increase in serum protein in the past. No MP by electrophoresis on 3 occasions here. Fatigued. Pain in both tarango bones for about a month. Restless legs at night. Previous bone donor site from left iliac bone to do cervical graft hurts all the time. Bones in feet hurt. They feel weak, feel like feet don't want to work when I stand up. Hands hurt. ANDRES that fluctuates. Most recent EGD 03/14/2022 AG. Report in notes. C-scope 12/2017. Hyperplastic polyp. Was on oral iron years ago. Bad constipation. 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 Hyperlipidemia Lung nodules PAD (peripheral artery disease) ([facility]) 03/10/2017 02/06/2022 PVR ank/jackson/toe bilat: RIGHT SIDE JITENDRA: 1.19; TBI: 0.84, WNL at rest LEFT SIDE: JITENDRA: 1.19; TBI: 0.96, WNL at rest Pulmonary HTN ([facility]) 12/08/2017 mild Squamous cell skin cancer, nasal tip 06/24/2016 Tobacco abuse 03/28/2017 PAST SURGICAL HISTORY Procedure Laterality Date ADDTL NECK SPINE FUSION 09/2004 CHOLECYSTECTOMY 2000 COLONOSCOPY 1982 COLONOSCOPY FLX DX W/COLLJ SPEC WHEN PFRMD 09/01/2012 COLONOSCOPY FLX DX W/COLLJ SPEC WHEN PFRMD Done in [place] unable to obtain COLONOSCOPY FLX DX W/COLLJ SPEC WHEN PFRMD 11/17/2013 Colonoscopy COLONOSCOPY FLX DX W/COLLJ SPEC WHEN PFRMD 12/24/2017 Colonoscopy ESOPHAGOGASTRODUODENOSCO PY TRANSORAL DIAGNOSTIC 06/04/2013 EGD ESOPHAGOGASTRODUODENOSCO PY TRANSORAL DIAGNOSTIC 05/17/2015 EGD ESOPHAGOGASTRODUODENOSCO PY TRANSORAL DIAGNOSTIC 12/24/2017 EGD FNA (FINE NEEDLE ASPIRATION) 04/12/2024 right thyroid HYSTERECTOMY HX 1984 Pelvic pain AND DUB NEUROPLASTY AND/TRANSPOS MEDIAN NRV CARPAL TUNNE Bilateral 08/27/2018 Bilateral carpal tunnel release OOPHORECTOMY PARTIAL/TOTAL UNI/BI 1985 Bilateral PAST SURGICAL HISTORY OF removed tissue nose for [facility] PAST SURGICAL HISTORY OF 10/13/2017 Excision nasal mass, Dr Juarez Harris REMOVE TONSIL AND ADENOI UNDER AGE 12 SLING OPER STRES INCONTINENCE 2002 ALLERGIES Allergen Reactions Metronidazole Anaphylaxis Adhesive Other: See Comments redness with bandaids Augmentin [Amoxicil* Other: See Comments Thrush/yeast infection Ciprofloxacin Rash Clindamycin Swelling throat swelling Penicillins Intolerance Yeast infections Prozac [Fluoxetine * Rash Sulfa Dyne Rash Current Outpatient Medications Medication Sig metFORMIN (GLUCOPHAGE) 500 mg tablet Take 1 tablet by mouth two times a day with meals. ondansetron orally disintegrating (ZOFRAN ODT) 4 mg disintegrating tablet Take 1 tablet by mouth every 8 hours as needed. dulaglutide (TRULICITY) 1.5 mg/0.5 mL pen injector Inject 1.5 mg subcutaneously one time a week. Inject once per week. Discard Pen After meloxicam (MOBIC) 15 mg tablet Take 1 tablet by mouth once daily. rosuvastatin (CRESTOR) 20 mg tablet Take 1 tablet by mouth daily at bedtime. clobetasol (TEMOVATE) 0.05 % cream apply to rash on legs and hands twice daily 5 days a week as needed. Apply twice daily as needed, up to 21 days per month. Avoid application to the face, armpits, groin. albuterol HFA (PROVENTIL HFA, VENTOLIN HFA) 90 mcg/actuation inhaler Inhale 2 Puffs as instructed every 4 hours as needed for wheezing/shortness of breath. furosemide (LASIX) 20 mg tablet Take 1 tablet by mouth once daily. pantoprazole DR (PROTONIX) 40 mg tablet Take 1 tablet by mouth once daily. montelukast (more content not included)... Normal [facility] metabolic 2000 panelOrdered By: Addie Ruano on 06-02-2024 Albumin [Mass/Vol] 4.8 g/dL 3.9 - 4.9 g/dL [facility] ALP [Catalytic activity/Vol] 29 U/L Low 34 - 123 U/L [facility] ALT [Catalytic activity/Vol] 19 U/L 7 - 38 U/L [facility] Anion gap [Moles/Vol] 12 mmol/L 8 - 15 mmol/L [facility] AST [Catalytic activity/Vol] 21 U/L 13 - 35 U/L [facility] Bilirubin [Mass/Vol] 0.3 mg/dL 0.2 - 1 .3 mg/dL [facility] Calcium [Mass/Vol] 9.8 mg/dL 8.5 - 10. 2 mg/dL [facility] Chloride [Moles/Vol] 99 mmol/L 98 - 10 7 mmol/L [facility] CO2 [Moles/Vol] 24 mmol/L 22 - 30 mmol/L [facility] Creatinine [Mass/Vol] 0.76 mg/dL 0.58 - 0.96 mg/dL [facility] GFR/1.73 sq M.predicted among non-blacks MDRD (S/P/Bld) [Vol rate/Area] 87 mL/min/{1.73_m2} - PINF [facility] Comment on above: Estimated Glomerular Filtration Rate (eGFR) is calculated using the 2020 CKD-EPI creatinine equation. This equation utilizes serum creatinine, sex, and age as parameters. The creatinine assay has traceable calibration to isotope dilution-mass spectrometry. Refer to KDIGO guidelines for clinical interpretation. In patients with unstable renal function, e.g. those with acute kidney injury, the eGFR may not accurately reflect actual GFR. Glucose [Mass/Vol] 132 mg/dL High 74 - 99 mg/dL [facility] Comment on above: The [place] Diab[employer] s Association (ADA) provides guidance for cutoff values for fasting glucose and random glucose. The ADA defines fasting as no caloric intake for at least 8 hours. Fasting plasma glucose results between 100 to 125 mg/dL indicate increased risk for diabetes (prediabetes). Fasting plasma glucose results greater than or equal to 126 mg/dL meet the criteria for diagnosis of diabetes. In the absence of unequivocal hyperglycemia, results should be confirmed by repeat testing. In a patient with classic symptoms of hyperglycemia or hyperglycemic crisis, random plasma glucose results greater than or equal to 200 mg/dL meet the criteria for diagnosis of diabetes. Reference: Standards of Medical Care in Diabetes 2016, [place] Diabetes Association. Diabetes Care. 2016.39(Suppl 1). Interpretation and review of laboratory results Abnormal [facility] Potassium [Moles/Vol] 3.9 mmol/L 3.7 - 5.1 mmol/L [facility] Protein [Mass/Vol] 7.9 g/dL 6.3 - 8.0 g/dL [facility] Sodium [Moles/Vol] 135 mmol/L Low 136 - 144 mmol/L [facility] Urea nitrogen [Mass/Vol] 8 mg/dL 7 - 21 mg/dL [facility] Comprehensive metabolic 2000 panelon 06-02-2024 Albumin [Mass/Vol] 4.8 g/dL Normal 3.9-4.9 [facility] Comment on above: Order Comment: Speci men Type: BLOOD SPECIMENOrdering Facility: [facility] Address: [address] [place] [address] Performed By: #### 3 084-1, 86723-7, 2532-0 ####[facility] MARGUERITENANCIWGABBYLIA [id number] [place] [address] [place] ALP [Catalytic activity/Vol] 29 U/L Low 34-123 [facility] Comment on above: Order Comment: Speci men Type: BLOOD SPECIMENOrdering Facility: [facility] Address: [address] [place] [address] Performed By: #### 3 084-1, 45873-8, 2532-0 ####[facility] CENTERGABBYLIA [id number] [place] [address] [place] ALT [Catalytic activity/Vol] 19 U/L Normal 7-38 [facility] Comment on above: Order Comment: Speci men Type: BLOOD SPECIMENOrdering Facility: [facility] Address: [address] [place] [address] Performed By: #### 3 084-1, 65603-7, 2532-0 ####[facility] MARGUERITEWGABBYLIA [id number] [place] [address] [place] Anion gap [Moles/Vol] 12 mmol/L Normal 8-15 [facility] Comment on above: Order Comment: Speci men Type: BLOOD SPECIMENOrdering Facility: [facility] Address: [address] [place] [address] Performed By: #### 3 084-1, 05342-5, 2532-0 ####[facility] MILLTOWNCLIA [id number] [place] [address] [place] AST [Catalytic activity/Vol] 21 U/L Normal 13-35 [facility] Comment on above: Order Comment: Speci men Type: BLOOD SPECIMENOrdering Facility: [facility] Address: [address] [place] [address] Performed By: #### 3 084-1, 00344-8, 2531-0 ####[facility] MARGUERITEEAST FREEDOMNCLIA [id number] [place] [address] [place] Bilirubin [Mass/Vol] 0.3 mg/dL Normal 0.2-1.3 [facility] Comment on above: Order Comment: Speci men Type: BLOOD SPECIMENOrdering Facility: [facility] Address: [address] [place] [address] Performed By: #### 3 084-1, 78446-2, 2531-0 ####[facility]ENTERNCA [id number] [place] [address] [place] Calcium [Mass/Vol] 9.8 mg/dL Normal 8.5-10.2 [facility] Comment on above: Order Comment: Speci men Type: BLOOD SPECIMENOrdering Facility: [facility] Address: [address] [place] [address] Performed By: #### 3 084-1, 93369-5, 2531-0 ####[facility] [id number] [place] [address] [place] Chloride [Moles/Vol] 99 mmol/L Normal 98-107 [facility] Comment on above: Order Comment: Speci men Type: BLOOD SPECIMENOrdering Facility: [facility] Address: [address] [place] [address] Performed By: #### 3 084-1, 69381-5, 2531-0 ####[facility]ENTERNCLIA [id number] [place] [address] [place] CO2 [Moles/Vol] 24 mmol/L Normal 22-30 [facility] Comment on above: Order Comment: Speci men Type: BLOOD SPECIMENOrdering Facility: [facility] Address: [address] [place] [address] Performed By: #### 3 084-1, 42379-3, 0 ####[facility] [id number] [place] [address] [place] Creatinine [Mass/Vol] 0.76 mg/dL Normal 0.58-0.96 [facility] Comment on above: Order Comment: Speci men Type: BLOOD SPECIMENOrdering Facility: [facility] Address: [address] [place] [address] Performed By: #### 3 084-1, , ####[facility] [id number] [place] [address] [place] Creatinine and Glomerular filtration rate.predicted panel (S/P/Bld) 87 mL/min/1.73m??? Normal >=60 [facility] Comment on above: Order Comment: Giovana alejandre Type: BLOOD SPECIMENOrdering Facility: [facility] Address: [address] [place] [address] Result Comment: Amna mated Glomerular Filtration Rate (eGFR) is calculated using the 2020 CKD-EPI creatinine equation. This equation utilizes serum creatinine, sex, and age as parameters. The creatinine assay has traceable calibration to isotope dilution-mass spectrometry. Refer to KDIGO guidelines for clinical interpretation. In patients with unstable renal function, e.g. those with acute kidney injury, the eGFR may not accurately reflect actual GFR. Performed By: #### 3 084-1, , 0 ####[facility] [id number] [place] [address] [place] Glucose [Mass/Vol] 132 mg/dL High 74-99 [facility] Comment on above: Order Comment: Hyacinthi men Type: BLOOD SPECIMENOrdering Facility: [facility] Address: [address] [place] [address] Result Comment: The [place] Diabetes Association (ADA) provides guidance for cutoff values for fasting glucose and random glucose. The ADA defines fasting as no caloric intake for at least 8 hours. Fasting plasma glucose results between 100 to 125 mg/dL indicate increased risk for diabetes (prediabetes). Fasting plasma glucose results greater than or equal to 126 mg/dL meet the criteria for diagnosis of diabetes. In the absence of unequivocal hyperglycemia, results should be confirmed by repeat testing. In a patient with classic symptoms of hyperglycemia or hyperglycemic crisis, random plasma glucose results greater than or equal to 200 mg/dL meet the criteria for diagnosis of diabetes. Reference: Standards of Medical Care in Diabetes 2016, [place] Diabetes Association. Diabetes Care. 2016.39(Suppl 1). Performed By: #### 3 084-1, , ####[facility] [id number] [place] [address] [place] Potassium [Moles/Vol] 3.9 mmol/L Normal 3.7-5.1 [facility] Comment on above: Order Comment: Speci men Type: BLOOD SPECIMENOrdering Facility: [facility] Address: [facility] [place] [address] Performed By: #### 3 084-1, , ####[facility] [id number] [place] [address] [place] Protein [Mass/Vol] 7.9 g/dL Normal 6.3-8.0 [facility] Comment on above: Order Comment: Speci men Type: BLOOD SPECIMENOrdering Facility: [facility] Address: [address] [place], [place] [address] [id number] Performed By: #### 3 084-1, , ####[facility] [id number] [place] [address] [place] Sodium [Moles/Vol] 135 mmol/L Low 136-144 [facility] Comment on above: Order Comment: Speci men Type: BLOOD SPECIMENOrdering Facility: [facility] Address: [address] [place], [place] [address] Performed By: #### 3 084-1, 63212-8, 2532-0 ####[facility] [id number] [place] [address] [place] Urea nitrogen [Mass/Vol] 8 mg/dL Normal 7-21 [facility] Comment on above: Order Comment: Speci men Type: BLOOD SPECIMENOrdering Facility: [facility] Address: [address] [place], [place] [address] Performed By: #### 3 084-1, 25147-0, 2531-0 ####[facility] [id number] [place] [address] [place] Ferritin SerPl-ncon 2023 Ferritin [Mass/Vol] 19.9 ng/mL Normal 14.7-205.1 [facility] Comment on above: Order Comment: Speci men Type: BLOOD SPECIMENOrdering Facility: [facility] Address: [address] [place] [address] Performed By: #### 2 276-4, 1952-1, 2885-2, 15643-1 ####[facility] LABCLIA [id number] [place] [address] [place] IMMUNOFIXATION SCREEN, SERUM on 06-02-2024 INTERPRETATION (MPA) Poorly defined farooq on of restricted mobility in the lambda mery. Pattern is less well defined or fainter than typically seen in monoclonal gammopathy. This could represent either an atypical presentation of polyclonal immunoglobulins or the presence of a low level lambda containing monoclonal gammopathy. If clinically indicated, urine monoclonal protein analysis and serum free light chain measurements are recommended to evaluate further for monoclonal gammopathy. Clinical correlation is necessary. Normal [facility] Comment on above: Order Comment: Speci men Type: BLOOD SPECIMENOrdering Facility: [facility] Address: [address] [place] [address] Performed By: #### I FESC ####[facility] [id number] [address] [place] MPA RESULT A poorly defined reg ion of restricted mobility is present that may represent an M protein. Abnormal No M protein is identified. [facility] Comment on above: Order Comment: Speci men Type: BLOOD SPECIMENOrdering Facility: [facility] Address: [address] [place] [address] Performed By: #### I FESC ####[facility] [id number] [address] [place] STAFF REVIEW ([facility]) Reviewed by Malachi Byrne MD, Ph.D ([id number]) Normal [facility] Comment on above: Order Comment: Speci men Type: BLOOD SPECIMENOrdering Facility: [facility] Address: [address] [place] [address] Performed By: #### I FESC ####[facility] [id number] [place] [address] [place] IMMUNOGLOBULINS,IGG,IGA,IGMo n 06-02-2024 IgA [Mass/Vol] 279 mg/dL Normal 70-400 [facility] Comment on above: Order Comment: Speci men Type: BLOOD SPECIMENOrdering Facility: [facility] Address: [address] [place] [address] Performed By: #### S ERIMM ####[facility] [id number] [place] [address] [place] IgG [Mass/Vol] 1624 mg/dL High 700-1600 [facility] Comment on above: Order Comment: Speci men Type: BLOOD SPECIMENOrdering Facility: [facility] Address: [address] [place] [address] Performed By: #### S ERIMM ####[facility] [id number] [place] [address] [place] IgM [Mass/Vol] 139 mg/dL Normal 40-230 [facility] Comment on above: Order Comment: Speci men Type: BLOOD SPECIMENOrdering Facility: [facility] Address: [address] [place] [address] Performed By: #### S ERIMM ####[facility] LABCL[facility] [id number] [place] [id number] [place] Iron and Iron binding capaci ty panelon 06-02-2024 Iron [Mass/Vol] 64 ug/dL Normal 41-186 [facility] Comment on above: Order Comment: Speci men Type: BLOOD SPECIMENOrdering Facility: [facility] Address: [address] [place] [address] Performed By: #### 2 276-4, 1951-11, 2884-12, 09856-5 ####[facility] LABCL[facility] [id number] [place] [address] [place] Iron binding capacity [Mass/Vol] 365 ug/dL Normal 232-386 [facility] Comment on above: Order Comment: Speci men Type: BLOOD SPECIMENOrdering Facility: [facility] Address: [address] [place] [address] Performed By: #### 2 276-4, 1951-11, 2884-12, 09094-0 ####[facility] LABCL[facility] [id number] [place] [address] [place] Iron/TIBC [Molar ratio] 17.5 % Normal 15.0-57.0 [facility] Comment on above: Order Comment: Speci men Type: BLOOD SPECIMENOrdering Facility: [facility] Address: [address] [place] [address] Performed By: #### 2 276-4, 1951-11, 2884-12, 55228-1 ####[facility] LABCL[facility] [id number] [place] [id number] [place] KAPPA/DEJESUS,FREE,SERon 2023 Immunoglobulin light chains.kappa.free (S) [Mass/Vol] 39.2 mg/L High 3.3-19.4 [facility] Comment on above: Order Comment: Speci men Type: BLOOD SPECIMENOrdering Facility: [facility] Address: [address] [place] [address] Result Comment: Rare ly, increased serum free light chains levels may not be detected or accurately quantified due to prozone phenomenon or in high viscosity samples using this immunoturbidimetric assay. Correlation with other laboratory results and clinical findings is recommended. The [place] Free Light Chain was performed using the Binding Site Optilite immunoturbidimetric method. Result obtained with different assay methods or kits cannot be used interchangeably. Performed By: #### K LFRS ####[facility] [id number] [place] [address] [place] Immunoglobulin light chains.kappa/Immunoglobu belle light chains.lambda (S) [Mass ratio] 1.91 High 0.26-1.65 [facility] Comment on above: Order Comment: Speci [facility] Type: BLOOD SPECIMENOrdering Facility: [facility] Address: [address] [place] [address] Performed By: #### K LFRS ####[facility] LABCL[facility] [id number] [place] [address] [place] Immunoglobulin light chains.lambda.free [Mass/Vol] 20.5 mg/L Normal 5.7-26.3 [facility] Comment on above: Order Comment: Speci men Type: BLOOD SPECIMENOrdering Facility: [facility] Address: [address] [place] [address] Result Comment: Rare ly, increased serum free light chains levels may not be detected or accurately quantified due to prozone phenomenon or in high viscosity samples using this immunoturbidimetric assay. Correlation with other laboratory results and clinical findings is recommended. The Lambda Free Light Chain was performed using the Binding Site Optilite immunoturbidimetric method. Result obtained with different assay methods or kits cannot be used interchangeably. Performed By: #### K LFRS ####[facility] [id number] [place] [id number] [place] LACTATE DEHYDROGENASEon 05-11 LDH [Catalytic activity/Vol] 163 U/L 135 - 214 U/L [facility] LDH SerPl-cCncon 06-02-2024 LDH [Catalytic activity/Vol] 163 U/L Normal 135-214 [facility] Comment on above: Order Comment: Speci men Type: BLOOD SPECIMENOrdering Facility: [facility] Address: [address] [place] [address] Performed By: #### 3 084-1, 21651-2, 2532-0 ####[facility] KEVIN [facility] [id number] [place] [address] [place] No Panel Informationon 06-02 Interpretation and review of laboratory results Normal [facility] No Panel InformationOrdered By: Addie Ruano on 06-02-2024 [facility] PROTEIN ELECTROPHORESIS SERU M (P)on 06-02-2024 Albumin [Mass/Vol] 4.78 g/dL Normal 3.43-5.41 [facility] Comment on above: Order Comment: Speci men Type: BLOOD SPECIMENOrdering Facility: [facility] Address: [address] [place] [address] Performed By: #### L [id number] ####[facility] LABCL[facility] [id number] [place] [address] [place] Alpha 1 globulin Elph [Mass/Vol] 0.29 g/dL Normal 0.18-0.43 [facility] Comment on above: Order Comment: Speci men Type: BLOOD SPECIMENOrdering Facility: [facility] Address: [address] [place] [address] Performed By: #### L [id number] ####[facility] LAB[facility] [id number] [place] [id number] [place] Alpha 2 globulin Elph [Mass/Vol] 0.78 g/dL Normal 0.42-0.98 [facility] Comment on above: Order Comment: Speci men Type: BLOOD SPECIMENOrdering Facility: [facility] Address: [address] [place] [address] Performed By: #### L [id number] ####[facility] [id number] [place] [address] [place] Beta globulin Elph [Mass/Vol] 0.95 g/dL Normal 0.61-1.17 [facility] Comment on above: Order Comment: Speci men Type: BLOOD SPECIMENOrdering Facility: [facility] Address: [address] [place] [address] Performed By: #### L [id number] ####[facility] [id number] [place] [address] [place] Gamma globulin Elph [Mass/Vol] 1.50 g/dL Normal 0.53-1.51 [facility] Comment on above: Order Comment: Speci men Type: BLOOD SPECIMENOrdering Facility: [facility] Address: [address] [place] [address] Performed By: #### L [id number] ####[facility] [id number] [place] [address] [place] INTERPRETATION COMMENT FOR PROTEIN ELECTROPHORESIS The atypical region is relatively poorly defined and may represent an unusual presentation of polyclonal immunoglobulins, but cannot rule out the presence of a low level M protein. If clinically indicated, monoclonal protein analysis and serum free light chain analysis are suggested to evaluate further for monoclonal gammopathy. Normal [facility] Comment on above: Order Comment: Speci men Type: BLOOD SPECIMENOrdering Facility: [facility] Address: [address] [place] [address] Performed By: #### L [id number] ####[facility] [id number] [place] [address] [place] M-PROTEIN LOCATION Normal [facility] Comment on above: Order Comment: Speci men Type: BLOOD SPECIMENOrdering Facility: [facility] Address: [address] [place] [address] Result Comment: Not Applicable. Performed By: #### L [id number] ####[facility] [id number] [place] [address] [place] Protein Fractions [Interp] An atypical region of restricted mobility is identified on protein electrophoresis. Abnormal No definitive M protein is identified on protein electrophor esis. [facility] Comment on above: Order Comment: Speci men Type: BLOOD SPECIMENOrdering Facility: [facility] Address: [address] [place] [address] Performed By: #### L [id number] ####[facility] [id number] [place] [address] [place] Protein.monoclonal Elph [Mass/Vol] 0.00 g/dL Normal <=0.00 [facility] Comment on above: Order Comment: Speci men Type: BLOOD SPECIMENOrdering Facility: [facility] Address: [address] [place] [address] Performed By: #### L [id number] ####[facility] [id number] [place] [address] [place] SPE STAFF REVIEW Reviewed by Malachi Byrne MD, Ph.D ([id number]) Normal [facility] Comment on above: Order Comment: Speci men Type: BLOOD SPECIMENOrdering Facility: [facility] Address: [address] [place] [address] Performed By: #### L [id number] ####[facility] [id number] [place] [address] [place] Prot SerPl-mCncon 06-02-2024 Protein [Mass/Vol] 8.3 g/dL High 6.3-8.0 [facility] Comment on above: Order Comment: Speci men Type: BLOOD SPECIMENOrdering Facility: [facility] Address: [address] [place] [address] Performed By: #### 2 276-4, 1952-1, 2885-2, 19139-9 ####[facility] [id number] [place] [id number] [place] SERUM VISCOSITYon 06-02-2024 VISCOSITY, SERUM 1.21 cP Normal <=1.50 [facility] Comment on above: Order Comment: Speci men Type: BLOOD SPECIMENOrdering Facility: [facility] Address: [address] [place], [place] [address] [place] [address] Result Comment: INTE RPRETIVE INFORMATION: Viscosity, Serum Increased viscosity is associated with disorders such as monoclonal gammopathy, macroglobulinemia, and multiple myeloma. Significantly elevated viscosity (>3.0 cP) is associated with clinical symptoms of hyperviscosity syndrome. This test was developed and its performance characteristics determined by [facility]. It has not been cleared or approved by the US Food and Drug Administration. This test was performed in a CLIA certified laboratory and is intended for clinical purposes. Performed By: [facility] [address] [place], [place] [id number] Car Unloader Helper: Damien Rodrigues MD, PhD [place] Number: [id number] Performed By: #### S SOPHIE ####[facility] [id number] [place] [address] URIC ACIDon 06-02-2024 Urate [Mass/Vol] 5.4 mg/dL 2.5 - 6.6 mg/dL [facility] Urate SerPl-mCncon Urate [Mass/Vol] 5.4 mg/dL Normal 2.5-6.6 [facility] [place] Comment on above: Order Comment: Speci men Type: BLOOD SPECIMENOrdering Facility: [facility] Address: [address] [place], [place] [address] [place] [address] Performed By: #### 3 084-1, 71547-7, 2532-0 ####[facility] [id number] [place] [id number] [place] CNPNon 06-01-2024 CNPN Telephone (HEMAWS) -------- JAGJITЮЛИЯ Burgess ([id number]) 1955 F Date Time Provider Department 06/01/24 CRISTHIAN SMITH During your visit today, we recorded the following information about you: Monika Vila 06/01/2024 8:38 AM Signed Lvm for patient to call back. 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 She states she does not drive and will try to get transportation for tomorrow. She will call back to reschedule if unable. Allergies As of Date: 06/01/2024 Noted Allergy Reaction METRONIDAZOLE 01/25/2014 10 - Anaphylaxis ADHESIVE 04/28/2013 14 - Other: See Comments Comments: redness with bandaids AUGMENTIN (AMOXICILLIN-POT CLAVUL*01/25/2014 14 - Other: See Comments Comments: Thrush/yeast infection CIPROFLOXACIN 01/25/2014 2 - Rash CLINDAMYCIN 10/23/2016 7 - Swelling Comments: throat swelling PENICILLINS 06/09/2012 5 - Intolerance Comments: Yeast infections PROZAC (FLUOXETINE HCL) 10/26/2013 2 - Rash SULFA DYNE 06/09/2012 2 - Rash Date Reviewed: 04/21/2024 Reviewed by: Marcela Chaparro LPN - Fully Assessed Prescriptions as of 06/03/2024 - metFORMIN (GLUCOPHAGE) 500 mg tablet Take 1 tablet by mouth two times a day with meals. - ondansetron orally disintegrating (ZOFRAN ODT) 4 mg disintegrating tablet Take 1 tablet by mouth every 8 hours as needed. - dulaglutide (TRULICITY) 1.5 mg/0.5 mL pen injector Inject 1.5 mg subcutaneously one time a week. Inject once per week. Discard Pen After - blood sugar diagnostic (ONETOUCH VERIO TEST STRIPS) test strip Test blood sugar(s) 3 times daily. Dx: Type 2 DM - Controlled E11.9 Insulin: No - fluticasone-salmeterol (ADVAIR DISKUS) 250-50 mcg/dose inhaler Inhale 1 Puff as instructed two times a day. RINSE AND GARGLE MOUTH WITH WATER AFTER EACH USE. - meloxicam (MOBIC) 15 mg tablet Take 1 tablet by mouth once daily. - rosuvastatin (CRESTOR) 20 mg tablet Take 1 tablet by mouth daily at bedtime. - clobetasol (TEMOVATE) 0.05 % cream apply to rash on legs and hands twice daily 5 days a week as needed. Apply twice daily as needed, up to 21 days per month. Avoid application to the face, armpits, groin. - albuterol HFA (PROVENTIL HFA, VENTOLIN HFA) 90 mcg/actuation inhaler Inhale 2 Puffs as instructed every 4 hours as needed for wheezing/shortness of breath. - furosemide (LASIX) 20 mg tablet Take 1 tablet by mouth once daily. - pantoprazole DR (PROTONIX) 40 mg tablet Take 1 tablet by mouth once daily. - montelukast (SINGULAIR) 10 mg tablet Take 1 tablet by mouth daily at bedtime. - citalopram (CELEXA) 40 mg tablet Take 1 tablet by mouth once daily. - coenzyme Q10 (COENZYME Q-10) 100 mg cap capsule Take 1 capsule by mouth twice daily. - Cholecalciferol, Vitamin D3, 25 mcg (1,000 unit) cap Take 1 capsule by mouth once daily. - Fluorouracil (EFUDEX) 5 % cream Apply to affected areas twice daily for 2-4 weeks or until red blistering reaction occurs. - fluticasone-salmeterol (ADVAIR, WIXELA) 250-50 mcg/dose Inhale 1 Puff as instructed twice daily. - blood sugar diagnostic (BLOOD GLUCOSE TEST) test strip Test blood sugar(s) 3 times daily. Dx: Type 2 DM - Controlled E11.9 Insulin: No: True Matrix - Lancets lancets Test blood sugar(s) 3 times daily. Dx: Type 2 DM - Controlled E11.9 Insulin: No True matrix - buPROPion XL (WELLBUTRIN XL) 150 mg 24 hr tablet Take 150 mg by mouth once daily. - Blood-Glucose Meter monitoring kit Glucose Meter of Choice - Kit - Dx: Type 2 DM - Controlled E11.9 - COMPOUNDED PRESCRIPTION Tens unit DX: DDD of neck and lumbar spine - aspirin, enteric coated (ASPIRIN, ENTERIC COATED) 81 mg EC tablet Take 81 mg by mouth once daily. - traZODone 100 mg tablet Take 100 mg by mouth daily at bedtime. One or two - busPIRone 5 mg tablet Take 5 mg by mouth twice daily. Problem List As Of Date 06/01/2024 Noted Resolved Hyperlipidemia [E78.5] 03/10/2017 Diverticulitis [K57.92] 11/28/2017 Diabetes mellitus [E11.9] 07/19/2015 Dizziness and giddiness [R42] 08/24/2012 12/05/2017 Neoplasm of uncertain behavior of skin [D48.5] 12/09/2012 11/28/2017 Atypical nevus of back [D22.5] 12/09/2012 Atypical nevus of abdominal wall [D22.5] 12/09/2012 12/05/2017 Actinic keratosis [L57.0] 12/09/2012 Irritated//Inflamed Seborrheic Keratoses [L82.0]12/09/2012 12/05/2017 Actinic skin damage [L57.8] 12/09/2012 Melanocytic nevi of face [D22.30] 12/09/2012 Dermatofibroma of right thigh [D23.71] 12/09/2012 Dermatofibroma of forearm [D23.60] 12/09/2012 Other seborrheic keratosis [L82.1] 12/09/2012 Solar Lentigines [L81.4] 12/09/2012 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 Normal [facility] CNOVon 04-21-2024 CNOV Office Visit (GENSWS ) -------- ЮЛИЯ PRASAD ([id number]) 1955 F Date Time Provider Department 04/21/24 2:00 PM PELON WINCHESTER During your visit today, we recorded the following information about you: Temperature Pulse Respiration Blood pressure 98 degrees 90/minute 14/minute 102/62 Weight Height 65.6 kg 1.575 m Pelon Winchester MD 04/21/2024 3:33 PM Signed Subjective: Patient is status post a right fine-needle aspiration on 01/10/2024. Final diagnosis came back benign colloid nodule. She is not having any problems with discomfort although she does feel like she has some constricting sensations while she is swallowing. Objective: Blood pressure 102/62, pulse 90, temperature 36.7 ?C (98 ?F), temperature source Temporal, resp. rate 14, height 157.5 cm (5' 2), weight 65.6 kg (144 lb 9.6 oz), SpO2 100%. Neck is supple no hard palpable nodules are identified. Assessment:Multinodular goiter (nontoxic) (primary encounter diagnosis) Plan: Patient will need to have yearly thyroid ultrasounds the nodules grow by more than 20% repeat fine-needle aspirations will need to be performed. Referring Provider: PELON WINCHESTER [[id number]] Allergies As of Date: 04/21/2024 Noted Allergy Reaction METRONIDAZOLE 01/25/2014 10 - Anaphylaxis ADHESIVE 04/28/2013 14 - Other: See Comments Comments: redness with bandaids AUGMENTIN (AMOXICILLIN-POT CLAVUL*01/25/2014 14 - Other: See Comments Comments: Thrush/yeast infection CIPROFLOXACIN 01/25/2014 2 - Rash CLINDAMYCIN 10/23/2016 7 - Swelling Comments: throat swelling PENICILLINS 06/09/2012 5 - Intolerance Comments: Yeast infections PROZAC (FLUOXETINE HCL) 10/26/2013 2 - Rash SULFA DYNE 06/09/2012 2 - Rash Date Reviewed: 04/21/2024 Reviewed by: Marcela Chaparro LPN - Fully Assessed Reason for Visit: Follow Up [171] Primary Visit Diagnosis:Multinodular goiter (nontoxic) [E04.2] Prescriptions as of 04/21/2024 - metFORMIN (GLUCOPHAGE) 500 mg tablet Take 1 tablet by mouth two times a day with meals. - ondansetron orally disintegrating (ZOFRAN ODT) 4 mg disintegrating tablet Take 1 tablet by mouth every 8 hours as needed. - dulaglutide (TRULICITY) 1.5 mg/0.5 mL pen injector Inject 1.5 mg subcutaneously one time a week. Inject once per week. Discard Pen After - blood sugar diagnostic (Blueprint GeneticsTOUCH VERIO TEST STRIPS) test strip Test blood sugar(s) 3 times daily. Dx: Type 2 DM - Controlled E11.9 Insulin: No - fluticasone-salmeterol (ADVAIR DISKUS) 250-50 mcg/dose inhaler Inhale 1 Puff as instructed two times a day. RINSE AND GARGLE MOUTH WITH WATER AFTER EACH USE. - meloxicam (MOBIC) 15 mg tablet Take 1 tablet by mouth once daily. - rosuvastatin (CRESTOR) 20 mg tablet Take 1 tablet by mouth daily at bedtime. - clobetasol (TEMOVATE) 0.05 % cream apply to rash on legs and hands twice daily 5 days a week as needed. Apply twice daily as needed, up to 21 days per month. Avoid application to the face, armpits, groin. - albuterol HFA (PROVENTIL HFA, VENTOLIN HFA) 90 mcg/actuation inhaler Inhale 2 Puffs as instructed every 4 hours as needed for wheezing/shortness of breath. - furosemide (LASIX) 20 mg tablet Take 1 tablet by mouth once daily. - pantoprazole DR (PROTONIX) 40 mg tablet Take 1 tablet by mouth once daily. - montelukast (SINGULAIR) 10 mg tablet Take 1 tablet by mouth daily at bedtime. - citalopram (CELEXA) 40 mg tablet Take 1 tablet by mouth once daily. - coenzyme Q10 (COENZYME Q-10) 100 mg cap capsule Take 1 capsule by mouth twice daily. - Cholecalciferol, Vitamin D3, 25 mcg (1,000 unit) cap Take 1 capsule by mouth once daily. - Fluorouracil (EFUDEX) 5 % cream Apply to affected areas twice daily for 2-4 weeks or until red blistering reaction occurs. - fluticasone-salmeterol (ADVAIR, WIXELA) 250-50 mcg/dose Inhale 1 Puff as instructed twice daily. - blood sugar diagnostic (BLOOD GLUCOSE TEST) test strip Test blood sugar(s) 3 times daily. Dx: Type 2 DM - Controlled E11.9 Insulin: No: True Matrix - Lancets lancets Test blood sugar(s) 3 times daily. Dx: Type 2 DM - Controlled E11.9 Insulin: No True matrix - buPROPion XL (WELLBUTRIN XL) 150 mg 24 hr tablet Take 150 mg by mouth once daily. - Blood-Glucose Meter monitoring kit Glucose Meter of Choice - Kit - Dx: Type 2 DM - Controlled E11.9 - COMPOUNDED PRESCRIPTION Tens unit DX: DDD of neck and lumbar spine - aspirin, enteric coated (ASPIRIN, ENTERIC COATED) 81 mg EC tablet Take 81 mg by mouth once daily. - traZODone 100 mg tablet Take 100 mg by mouth daily at bedtime. One or two - busPIRone 5 mg tablet Take 5 mg by mouth twice daily. Problem List As Of Date 04/21/2024 Noted Resolved Hyperlipidemia [E78.5] 03/10/2017 Diverticulitis [K57.92] 11/28/2017 Diabetes mellitus [E11.9] 07/19/2015 Dizziness and giddiness [R42] 08/24/2012 12/05/2017 Neoplasm of uncertai (more content not included)... Normal [facility] THYROID BIOPSY RIGHT (POC ) SURG USE ONLYon 04-12-2024 [facility] CRPHSon 02-10-2024 CRP, High Sensitive 0.51 mg/L Normal 0.20-3.00 [facility] ([place]) Comment on above: Result Comment: Rela tive Risk Category and Average hs-CRP Level: Higher Risk: > 5.0 mg/L Guidelines support that hs-CRP can be used as an independent predictor of increased coronary risk; however, hs-CRP results should only be interpreted in conjunction with other cardiac risk factors in establishing overall cardiac risk for a given patient. Performed By: #### [facility] #### [place] [address] LABORATORYOrdered By: SYSTEM SYSTEM on 02-10-2024 CRP High sensitivity method [Mass/Vol] 0.51 mg/L Normal 0.20 - 3.00 mg/L [facility] Comment on above: Interpretive Data: R elative Risk Category and Average hs-CRP Level: Higher Risk: > 5.0 mg/L Guidelines support that hs-CRP can be used as an independent predictor of increased coronary risk; however, hs-CRP results should only be interpreted in conjunction with other cardiac risk factors in establishing overall cardiac risk for a given patient. No Panel InformationOrdered By: Danielle Kwong on 02-10-2024 Affirm Pathogens DNA Direct Probe Kalina species DNA Probe Negative Gardnerella vaginalis DNA Probe Positive Trichomonas vaginalis DNA Probe Negative [facility] No Panel Informationon 02-09 Culture Wound Aerobe Normal Vaginal Fina a: Present Neisseria gonorrhoeae: Negative [facility] Work Phone: GS 4+ Epithelial cells 4+ Gram Positive Rods , many rods are gram variable [facility] Work Phone: Iron measurement (mass/mass) Ordered By: Jake Raymond on 01-14-2024 Iron (Unsp spec) [Mass/Mass] 47 ug/dL 50-170 [facility] Laboratory - Chemistry and C hemistry - challengeOrdered By: Jake Raymond on 01-14-2024 Cobalamin (Vitamin B12) [Mass/Vol] 290 pg/mL 211-911 [facility] Transferrin [Mass/Vol] 310 mg/dL 192-364 [facility] Comment on above: Performed at: [address] Director: Cleveland Poon PhD, Phone: [phone] No Panel InformationOrdered By: Jake Raymond on 01-14-2024 Total Iron Binding Capacity 403 ug/dL 250-450 [facility] Serum or plasma iron saturat ion measurement (mass fraction)Ordered By: Jake Raymond on 01-14-2024 Iron saturation [Mass fraction] 11.7 % 15.0-55.0 [facility] Absolute lymphocyte countOrd ered By: Jake Raymond on 12-31-2023 Lymphocytes Auto (Unsp spec) [#/Vol] 2.67 10*3/uL 0.83-4.51 [facility] Automated lymphocyte count a s percentage of total leukocytesOrdered By: Jake Mujicavita on 12-31-2023 Lymphocytes/100 WBC Auto (Unsp spec) 27.3 % 19-41 [facility] Basophil percentageOrdered B y: Jake Raymond on 12-31-2023 Basophil percentage 0 SEEN /hpf 0-5 [facility] Basophils/100 WBC (Bld) 0.4 % 0-1 [facility] Bilirubin [Mass/Vol] 0.80 mg/dL 0.20-1.00 [facility] Comment on above: For patients on eltr ombopag therapy, use of Dimension [place] TBIL is not recommended. Chloride [Moles/Vol] 104 mmol/L 98-107 [facility] Cholesterol [Mass/Vol] 114 mg/dL <200 [facility] Comment on above: <200 mg/dL Desirable 200-240 mg/dL Borderline >240 mg/dL High Risk Eosinophils/100 WBC (Bld) 0.6 % 0-5 [facility] Glucose [Mass/Vol] 98 mg/dL 74-106 [facility] Hemoglobin (Bld) [Mass/Vol] 11.7 g/dL 12.0-15.0 [facility] Monocytes/100 WBC (Bld) 5.1 % 0-10 [facility] Neutrophils (Bld) [#/Vol] 6.5 10*3/uL 2.0-7.7 [facility] Neutrophils/100 WBC (Bld) 66.3 % 47-70 [facility] Potassium [Moles/Vol] 3.7 mmol/L 3.5-5.1 [facility] Protein [Mass/Vol] 8.6 g/dL 6.4-8.2 [facility] Sodium [Moles/Vol] 139 mmol/L 136-145 [facility] Triglyceride [Mass/Vol] 135 mg/dL <199 [facility] Comment on above: The drugs N-Acetylcy steine and Metamizole may falsely depress this assay.Serum Triglycerides Reference Interval Normal <150 mg/dL Borderline high 150 - 199 mg/dL High 200 - 499 mg/dL Very High > or = 500 mg/dL WBC (Bld) [#/Vol] 9.8 10*3/uL 4.4-11.0 [facility] Bilirubin Test strip Ql (U)O rdered By: Jake Raymond on 12-31-2023 Bilirubin Ql (U) Negative Negative [facility] Calcium oxalate crystals det ection in urine sediment by light microscopyOrdered By: Jake Raymond on 12-31-2023 Calcium oxalate crystals LM Ql (Urine sed) RARE /hpf [facility] Determination of erythrocyte mean corpuscular volume (MCV)Ordered By: Jake Raymond on 12-31-2023 MCV (RBC) [Entitic vol] 89.6 fL 81-99 [facility] Erythrocyte distribution wid th ratioOrdered By: Jake Raymond on 12-31-2023 Erythrocyte distribution width (RBC) [Ratio] 13.5 % 11.6-14.6 [facility] Erythrocyte distribution wid th standard deviationOrdered By: Jake Raymond on 12-31-2023 Erythrocyte distribution width (RBC) [Entitic vol] 44.5 fL 35.1-43.9 [facility] Hematocrit Auto (Bld) [Volum e fraction]Ordered By: Jake Raymond on 12-31-2023 Hematocrit (Bld) [Volume fraction] 35.5 % 37-47 [facility] Immature granulocytes/100 WB C Auto (Bld)Ordered By: Jake Raymond on 12-31-2023 Immature granulocytes/100 WBC (Bld) 0.300 % 0.0-0.9 [facility] Comment on above: IG% - Immature Granu locytes (promyelocytes, myelocytes and metamyelocytes) > 1% indicates that a LEFT SHIFT is Present. Ketones Test strip Ql (U)Ord ered By: Jake Raymond on 12-31-2023 Ketones Ql (U) Negative Negative [facility] Laboratory - Chemistry and C hemistry - challengeOrdered By: Jake Raymond on 12-31-2023 Albumin/Globulin [Mass ratio] 1.0 {ratio} 0.9-2.4 [facility] ALP [Catalytic activity/Vol] 31 U/L 45-117 [facility] ALT [Catalytic activity/Vol] 26 U/L 13-56 [facility] Cholesterol in HDL [Mass/Vol] 58 mg/dL >40 [facility] Comment on above: The drugs N-Acetylcy steine and Metamizole may falsely depress this assay. Reference Range HDL <40 mg/dL Low HDL Cholesterol HDL >or= 60 mg/dL High HDL Cholesterol Cholesterol in LDL [Mass/Vol] 29 mg/dL 0-130 [facility] CK [Catalytic activity/Vol] 153 U/L 26-192 [facility] CO2 [Moles/Vol] 27.0 mmol/L 21.0-32.0 [facility] Ferritin [Mass/Vol] 9 ng/mL 8-252 [facility] Globulin (S) [Mass/Vol] 4.3 g/dL 2.2-4.2 [facility] Magnesium [Mass/Vol] 1.8 mg/dL 1.6-2.6 [facility] Urea nitrogen/Creatinine [Mass ratio] 14.5 mg/mg 10-20 [facility] Laboratory - Hematology and Cell countsOrdered By: Jake Raymond on 12-31-2023 MCH (RBC) [Entitic mass] 29.5 pg 27.0-32.0 [facility] MCHC (RBC) [Mass/Vol] 33.0 g/dL 32-36 [facility] Nucleated RBC/100 WBC (Bld) [Ratio] 0 % 0-5 [facility] Platelet mean volume (Bld) [Entitic vol] 10.6 fL 6.2-12.0 [facility] Platelets (Bld) [#/Vol] 218 10*3/uL 150-450 [facility] Mucus LM Ql (Urine sed)Order ed By: Jake Raymond on 12-31-2023 Mucus Ql (Urine sed) 0 SEEN /hpf [facility] Nitrite Test strip Ql (U)Ord ered By: Jake Raymond on 12-31-2023 Nitrite Ql (U) Negative Negative [facility] No Panel InformationOrdered By: Jake Raymond on 12-31-2023 Urine RBC 0 SEEN /hpf 0-5 [facility] Estimated GFR (MDRD) Amer 81 mL/min >60 [facility] Comment on above: GFR Calc Estimated GFR (MDRD) Non-Af Amer 67 mL/min >60 [facility] Comment on above: Non- GFR Calc Urine Microalbumin/Creatinine Ratio 54.3 mg/g CRE <30 [facility] Vitamin D 25-Hydroxy 35.2 ng/mL [facility] Comment on above: Vitamin D 25(OH) Sta tus Range Deficiency <20 ng/mL (50nmol/L) Insufficiency 20 - 30 ng/mL (50 - 75 nmol/L) Sufficiency 30 - 100 ng/mL (75 - 250 nmol/L) Toxicity >100 ng/mL (>250 nmol/L) VLDL Cholesterol 27 mg/dL 5-40 [facility] Protein Test strip Ql (U)Ord ered By: Jake Raymond on 12-31-2023 Protein Ql (U) Negative Negative [facility] RBC Auto (Bld) [#/Vol]Ordere d By: Jake Raymond on 12-31-2023 RBC (Bld) [#/Vol] 3.96 10*6/uL 4.2-5.4 [facility] Serum or plasma calcium bernard urement (mass/volume)Ordered By: Jake Raymond on 12-31-2023 Calcium [Mass/Vol] 9.5 mg/dL 8.5-10.1 [facility] Serum or plasma creatinine m easurement (mass/volume)Ordered By: Jake Raymond on 12-31-2023 Creatinine [Mass/Vol] 0.90 mg/dL 0.55-1.02 [facility] Comment on above: The validity of the calculated GFR & GFRAA in patients over 70 years has not been determined. Clinical correlation is essential. Serum or plasma thyroid stim ulating hormone (TSH) measurement (units/volume)Ordered By: Jake Raymond on 12-31-2023 TSH Qn 1.37 uIU/mL 0.358-3.74 [facility] Serum or plasma thyroperoxid ase antibody assay (units/volume)Ordered By: Jake Raymond on 12-31-2023 TPO Ab Qn 18 [IU]/mL 0-34 [facility] Comment on above: Performed at: [address] [id number] Director: Cleveland Poon PhD, Phone: [phone] Serum or plasma urea nitroge n measurement (mass/volume)Ordered By: Jake Raymond on 12-31-2023 Urea nitrogen [Mass/Vol] 13 mg/dL 7-18 [facility] Squamous epithelial cells de tection in urine sediment by light microscopyOrdered By: Jake Raymond on 12-31-2023 Epithelial cells.squamous LM Ql (Urine sed) 0 SEEN /hpf 5-10 [facility] Thin prep Papanicolaou smear with manual screeningOrdered By: Jake Raymond on 12-31-2023 Thin prep Papanicolaou smear with manual screening 4.3 g/dL 3.2-5.0 [facility] Thin prep Papanicolaou smear with manual screening 18 U/L 15-37 [facility] Thin prep Papanicolaou smear with manual screening 8 5-15 [facility] Thin prep Papanicolaou smear with manual screening 14.5 mg/L NO RANGE EST. [facility] Thin prep Papanicolaou smear with manual screening 1.00 ng/dL 0.76-1.46 [facility] Urine blood detectionOrdered By: Jake Raymond on 12-31-2023 RBC Ql (U) Negative Negative [facility] Urine clarityOrdered By: Akin Raymond on 12-31-2023 Clarity (U) Clear Clear [facility] Urine color determinationOrd ered By: Jake Raymond on 12-31-2023 Color (U) Yellow Yellow [facility] Urine creatinine measurement (mass/volume)Ordered By: Jake Raymond on 12-31-2023 Creatinine (U) [Mass/Vol] 26.70 mg/dL NO RANGE EST. [facility] Urine glucose detectionOrder ed By: Jake Raymond on 12-31-2023 Glucose Ql (U) Normal mg/dl Normal [facility] Urine leukocyte esterase det ection by dipstickOrdered By: Jake Raymond on 12-31-2023 Leukocyte esterase Test strip Ql (U) Negative Negative [facility] Urine pHOrdered By: Jake newman on 12-31-2023 pH (U) 5.0 [pH] 5.0 - 8.0 [facility] Urine sediment bacteria coun t by microscopy (number/high power field)Ordered By: Jake Raymond on 12-31-2023 Bacteria LM.HPF (Urine sed) [#/Area] 0 /[HPF] None Seen [facility] Urine specific gravity measu rementOrdered By: Jake Raymond on 12-31-2023 Specific gravity (U) [Rel density] 1.010 1.002-1.030 [facility] Urine urobilinogen measureme ntOrdered By: Jake Raymond on 12-31-2023 Urobilinogen Ql (U) Normal mg/dl Normal [facility] Whole blood hemoglobin A1c/t otal hemoglobin ratio (mass fraction)Ordered By: Jake Raymond on 12-31-2023 HbA1c (Bld) [Mass fraction] 6.9 % 3.8-5.6 [facility] Comment on above: Normal < 5.7 % Predi abetic 5.7 - 6.4 % Diabetic >or= 6.5 % Please note range changes. MRI BRAIN WO/W IVCONon 10-[address] [facility] [address] BRAIN WO IVCONon 09-11-20 CT BRAIN WO IVCON * * *Final Report* * * DATE OF EXAM: Sep 11 2023 4:00PM [facility] 0504 - CT BRAIN WO IVCON / PROCEDURE REASON: Syncope and collapse * * * * Physician Interpretation * * * * EXAMINATION: CT BRAIN WO IVCON CLINICAL HISTORY: Syncope, dizzy TECHNIQUE: Serial axial images without IV contrast were obtained from the vertex to the foramen magnum. MQ: [id number] CT Radiation dose: Integrated Dose-Length Product (DLP) for this visit = 706.22 mGy*cm CT Dose Reduction Employed: Automated exposure control(AEC) and iterative recon COMPARISON: MRI 11/06/2015. RESULT: Clay Machine Operator (topogram) images: No additional findings. [...] base and imaged soft tissues are unremarkable. IMPRESSION: 9 mm nonspecific hyperdense abnormality/lesion within the left posterior thalamus. Exact etiology is indeterminate. This does not have an appearance typical for acute blood. MRI with and without IV contrast is indicated for further assessment. ACTIONABLE RESULT: FOLLOW-UP Acuity: Actionable Findings: Neurological System-BRAIN Routing Code: NI_1 Recommendation: MRI BRAIN WO/W IVCON Routine Time Frame: At the discretion of the clinical team. COMMUNICATION: Results will be communicated with the ordering provider via [email or web address] staff message or phone message by [facility] within 2 business days of report finalization. --END OF FINDING-- Promotional Demonstrator: PSCB Transcribe Date/Time: Sep 11 2023 4:01P Dictated by : GHADA DANIELS MD This examination was interpreted and the report reviewed and electronically signed by: GHADA DANIELS MD on Sep 11 2023 4:06PM EST [id number] ACTIONABLE Invalid Interpretation Code [facility] CBC W Auto Differential pane l (Bld)on 09-10-2023 Basophils (Bld) [#/Vol] 0.04 10*3/uL <0.11 k/uL [facility] Basophils/100 WBC (Bld) 0.6 % [facility] Differential cell count method Nom (Bld) Auto [facility] Eosinophils (Bld) [#/Vol] 0.09 10*3/uL <0.46 k/uL [facility] Eosinophils/100 WBC (Bld) 1.3 % [facility] Erythrocyte distribution width (RBC) [Ratio] 12.6 % 11.5 - 15.0 % [facility] Hematocrit (Bld) [Volume fraction] 34.8 % Low 36.0 - 46.0 % [facility] Hemoglobin (Bld) [Mass/Vol] 11.6 g/dL 11.5 - 15.5 g/dL [facility] Immature granulocytes (Bld) [#/Vol] <0.10 k/uL [facility] Immature granulocytes/100 WBC (Bld) 0.1 % [facility] Lymphocytes (Bld) [#/Vol] 3.59 10*3/uL 1.00 - 4.00 k/uL [facility] Lymphocytes/100 WBC (Bld) 52.0 % [facility] MCH (RBC) [Entitic mass] 29.8 pg 26. 0 - 34.0 pg [facility] MCHC (RBC) [Mass/Vol] 33.3 g/dL 30.5 - 36.0 g/dL [facility] MCV (RBC) [Entitic vol] 89.5 fL 80.0 - 100.0 fL [facility] Monocytes (Bld) [#/Vol] 0.45 10*3/uL <0.87 k/uL [facility] Monocytes/100 WBC (Bld) 6.5 % [facility] Neutrophils (Bld) [#/Vol] 2.73 10*3/uL 1.45 - 7.50 k/uL [facility] Neutrophils/100 WBC (Bld) 39.5 % [facility] Nucleated RBC (Bld) [#/Vol] <0.01 k/uL [facility] Nucleated RBC/100 WBC (Bld) [Ratio] 0.0 /100 WBC [facility] Platelet mean volume (Bld) [Entitic vol] 9.9 fL 9.0 - 12.7 fL [facility] Platelets (Bld) [#/Vol] 254 10*3/uL 150 - 400 k/uL [facility] RBC (Bld) [#/Vol] 3.89 10*6/uL Low 3.90 - 5.2 0 m/uL [facility] WBC (Bld) [#/Vol] 6.91 10*3/uL 3.70 - 11.00 k/uL [facility] Comprehensive metabolic 2000 panelon 09-10-2023 Albumin [Mass/Vol] 4.5 g/dL 3.9 - 4.9 g/dL [facility] ALP [Catalytic activity/Vol] 28 U/L Low 34 - 123 U/L [facility] ALT [Catalytic activity/Vol] 26 U/L 7 - 38 U/L [facility] Anion gap [Moles/Vol] 13 mmol/L 9 - 18 mmol/L [facility] AST [Catalytic activity/Vol] 25 U/L 13 - 35 U/L [facility] Bilirubin [Mass/Vol] 0.3 mg/dL 0.2 - 1 .3 mg/dL [facility] Calcium [Mass/Vol] 10.2 mg/dL 8.5 - 10. 2 mg/dL [facility] Chloride [Moles/Vol] 98 mmol/L 97 - 10 5 mmol/L [facility] CO2 [Moles/Vol] 26 mmol/L 22 - 30 mmol/L [facility] Creatinine [Mass/Vol] 0.90 mg/dL 0.58 - 0.96 mg/dL [facility] Estimated Glomerular Filtration Rate 71 mL/min/1.73m >=60 mL/min/1.73 m [facility] Glucose [Mass/Vol] 97 mg/dL 74 - 99 mg/dL [facility] Potassium [Moles/Vol] 3.8 mmol/L 3.7 - 5.1 mmol/L [facility] Protein [Mass/Vol] 8.1 g/dL High 6.3 - 8.0 g/dL [facility] Sodium [Moles/Vol] 137 mmol/L 136 - 144 mmol/L [facility] Urea nitrogen [Mass/Vol] 19 mg/dL 7 - 21 mg/dL [facility] No Panel Informationon 09-10 Radiology Study observation (narrative) Waylon garcia [facility] XR Cervical spine AP and Lat eral and obliqueon 09-10-2023 IMPRESSION: No acute osseous abnormalities are identified. Cervical spondylosis. Anatomic Variant: None. Assume 7 cervical vertebrae with counting from the craniocervical junction. Promotional Demonstrator: PSCB Transcribe Date/Time: Sep 10 2023 2:12P Dictated by : DUY MONTALVO MD This examination was interpreted and the report reviewed and electronically signed by: DUY MONTALVO MD on Sep 10 2023 2:15PM [facility] DIVISION OF RADIOLOGY * * *Final Report* * * DATE OF EXAM: Sep 10 2023 1:54PM WOX 5311 - XR CERVICAL 4V AP/LAT/OBL / PROCEDURE REASON: multiple diagnoses * * * * Physician Interpretation * * * * EXAMINATION: XR CERVICAL 4V AP/LAT/OBL CLINICAL HISTORY: Neck pain TECHNIQUE: XR CERVICAL 4V AP/LAT/OBL with 4 views on 4 images MQ: XCS_1 COMPARISON: 07/10/2018. RESULT: Counting Reference: Craniocervical junction on lateral view. Normal. Post-op assessment: N/A Alignment: Normal cervical lordosis. Vertebral bodies: Normal in height. No vertebral fracture. Postsurgical changes are noted with a metal plate and multiple metal screws transfixing the cervical spine from C5 through C7. The surgical hardware appears intact. Osteophytic spurring is noted anteriorly at C4-5. Marked right neural foramina narrowing is noted at C3-4. Moderate left neural foraminal narrowing is noted at C3-4. Spine articulations: Disc spaces are normal. Facet degenerative changes are noted in the upper cervical spine. Soft tissues: Normal. DIVISION OF RADIOLOGY Provider, Sunny Berkowitz [facility] - 09/10/2023 * * *Final Report* * * DATE OF EXAM: Sep 10 2023 1:54PM WOX 5311 - XR CERVICAL 4V AP/LAT/OBL / PROCEDURE REASON: multiple diagnoses * * * * Physician Interpretation * * * * EXAMINATION: XR CERVICAL 4V AP/LAT/OBL CLINICAL HISTORY: Neck pain TECHNIQUE: XR CERVICAL 4V AP/LAT/OBL with 4 views on 4 images MQ: XCS_1 COMPARISON: 07/10/2018. RESULT: Counting Reference: Craniocervical junction on lateral view. Normal. Post-op assessment: N/A Alignment: Normal cervical lordosis. Vertebral bodies: Normal in height. No vertebral fracture. Postsurgical changes are noted with a metal plate and multiple metal screws transfixing the cervical spine from C5 through C7. The surgical hardware appears intact. Osteophytic spurring is noted anteriorly at C4-5. Marked right neural foramina narrowing is noted at C3-4. Moderate left neural foraminal narrowing is noted at C3-4. Spine articulations: Disc spaces are normal. Facet degenerative changes are noted in the upper cervical spine. Soft tissues: Normal. IMPRESSION IMPRESSION: No acute osseous abnormalities are identified. Cervical spondylosis. Anatomic Variant: None. Assume 7 cervical vertebrae with counting from the craniocervical junction. Promotional Demonstrator: TRI Transcribe Date/Time: Sep 10 2023 2:12P Dictated by : DUY MONTALVO MD This examination was interpreted and the report reviewed and electronically signed by: DUY MONTALVO MD on Sep 10 2023 2:15PM EST [facility] XR Cervical spine AP and Lat eral and obliqueOrdered By: Ccf Provider on 09-10-2023 [facility] XR Ribs - right Views and est PAon 09-10-2023 IMPRESSION: No acute abnormality is identified. Promotional Demonstrator: TRI Transcribe Date/Time: Sep 10 2023 2:08P Dictated by : DUY MONTALVO MD This examination was interpreted and the report reviewed and electronically signed by: DUY MONTALVO MD on Sep 10 2023 2:12PM [facility] DIVISION OF RADIOLOGY * * *Final Report* * * DATE OF EXAM: Sep 10 2023 1:54PM WOX 5244 - XR RIB/CHST 3V AP RIB/OBL/CHST R / PROCEDURE REASON: multiple diagnoses * * * * Physician Interpretation * * * * RIGHT RIB X-RAYS AND CHEST x-ray HISTORY: Syncope, unspecified syncope type Rib pain TECHNIQUE: AP and oblique ribs. COMPARISON: None available. RESULT: Visible ribs are negative for fracture or other focal finding. The cardiac silhouette appears within normal limits. Moderate arterial calcifications involve the aortic arch. Small calcified pulmonary nodule is noted in the right upper lobe consistent with old granulomatous disease. Otherwise, the lungs appear clear. No pleural effusions are identified. Degenerative changes are noted in the thoracic spine. There is osteophytic spurring involving the AC joint with subacromial spurring. A small calcification is noted adjacent to the right humeral head which can be seen with calcific tendinitis/bursitis. DIVISION OF RADIOLOGY Provider, [facility] - 09/10/2023 * * *Final Report* * * DATE OF EXAM: Sep 10 2023 1:54PM WOX 5244 - XR RIB/CHST 3V AP RIB/OBL/CHST R / PROCEDURE REASON: multiple diagnoses * * * * Physician Interpretation * * * * RIGHT RIB X-RAYS AND CHEST x-ray HISTORY: Syncope, unspecified syncope type Rib pain TECHNIQUE: AP and oblique ribs. COMPARISON: None available. RESULT: Visible ribs are negative for fracture or other focal finding. The cardiac silhouette appears within normal limits. Moderate arterial calcifications involve the aortic arch. Small calcified pulmonary nodule is noted in the right upper lobe consistent with old granulomatous disease. Otherwise, the lungs appear clear. No pleural effusions are identified. Degenerative changes are noted in the thoracic spine. There is osteophytic spurring involving the AC joint with subacromial spurring. A small calcification is noted adjacent to the right humeral head which can be seen with calcific tendinitis/bursitis. IMPRESSION IMPRESSION: No acute abnormality is identified. Promotional Demonstrator: PSCB Transcribe Date/Time: Sep 10 2023 2:08P Dictated by : DUY MONTALVO MD This examination was interpreted and the report reviewed and electronically signed by: DUY MONTALVO MD on Sep 10 2023 2:12PM EST [facility] No Panel Informationon 07-28 [facility] XR Shoulder - right 3 Viewso n 03-28-2023 IMPRESSION: Degenera tive changes and rotator cuff calcific tendinosis. No acute abnormality Promotional Demonstrator: PSCB Transcribe Date/Time: Mar 28 2023 9:55P Dictated by : ALONSO HERNANDEZ MD This examination was interpreted and the report reviewed and electronically signed by: ALONSO HERNANDEZ MD on Mar 28 2023 9:56PM EST DIVISION OF RADIOLOGY * * *Final Report* * * DATE [...] Postoperative change in the lower cervical spine. DIVISION OF RADIOLOGY [facility] * * *Final Report* * * DATE [...] Postoperative change in the lower cervical spine. IMPRESSION IMPRESSION: Degenerative changes and rotator cuff calcific tendinosis. No acute abnormality Promotional Demonstrator: PSCB Transcribe Date/Time: Mar 28 2023 9:55P Dictated by : ALONSO HERNANDEZ MD This examination was interpreted and the report reviewed and electronically signed by: ALONSO HERNANDEZ MD on Mar 28 2023 9:56PM EST [facility] XR Shoulder - right 3 ViewsO rdered By: Ccf Provider on 03-28-2023 [facility] XR Shoulder - right 3 Viewso n 03-27-2023 Radiology Study observation (narrative) [facility] CARLOS EDUARDO SCREENINGon 03-25-2023 [facility] No Panel Informationon 02-27 [facility] Absolute lymphocyte countOrd ered By: Dr. Armstrong on 01-12-2023 Lymphocytes Auto (Unsp spec) [#/Vol] 2.73 10*3/uL 0.83-4.51 [facility] Basophil percentageOrdered B y: Dr. Armstrong on 01-12-2023 Basophils/100 WBC (Bld) 0.3 % 0-1 [facility] Chloride [Moles/Vol] 100 mmol/L 98-107 [facility] Eosinophils/100 WBC (Bld) 2.3 % 0-5 [facility] Glucose [Mass/Vol] 188 mg/dL 74-106 [facility] Comment on above: Fasting Glucose resu lt greater than or equal to 126 mg/dL suggests DIABETES MELLITUS per A.D.A. criteria. Neutrophils (Bld) [#/Vol] 2.7 10*3/uL 2.0-7.7 [facility] Neutrophils/100 WBC (Bld) 45.5 % 47-70 [facility] Potassium [Moles/Vol] 3.6 mmol/L 3.5-5.1 [facility] Sodium [Moles/Vol] 134 mmol/L 136-145 [facility] WBC (Bld) [#/Vol] 6.0 10*3/uL 4.4-11.0 [facility] Blood erythrocytes count (nu mber/volume)Ordered By: Dr. Armstrong on 01-12-2023 RBC (Bld) [#/Vol] 3.69 10*6/uL 4.2-5.4 [facility] Blood hemoglobin measurement (mass/volume)Ordered By: Dr. Armstrong on 01-12-2023 Hemoglobin (Bld) [Mass/Vol] 11.6 g/dL 12.0-15.0 [facility] Blood lymphocytes/100 leukoc ytesOrdered By: Dr. Armstrong on 01-12-2023 Lymphocytes/100 WBC (Bld) 45.5 % 19-41 [facility] Blood monocytes/100 leukocyt esOrdered By: Dr. Armstrong on 01-12-2023 Monocytes/100 WBC (Bld) 6.2 % 0-10 [facility] Blood platelet mean volumeOr dered By: Dr. Armstrong on 01-12-2023 Platelet mean volume (Bld) [Entitic vol] 9.5 fL 6.2-12.0 [facility] Determination of erythrocyte mean corpuscular volume (MCV)Ordered By: Dr. Armstrong on 01-12-2023 MCV (RBC) [Entitic vol] 93.2 fL 81-99 [facility] Hematocrit Auto (Bld) [Volum e fraction]Ordered By: Dr. Armstrong on 01-12-2023 Hematocrit (Bld) [Volume fraction] 34.4 % 37-47 [facility] Laboratory - Chemistry and C hemistry - challengeOrdered By: Dr. Armstrong on 01-12-2023 CO2 [Moles/Vol] 27.0 mmol/L 21.0-32.0 [facility] Urea nitrogen/Creatinine [Mass ratio] 14.0 mg/mg 10-20 [facility] Laboratory - Hematology and Cell countsOrdered By: Dr. Armstrong on 01-12-2023 Erythrocyte distribution width (RBC) [Entitic vol] 43.0 fL 35.1-43.9 [facility] Erythrocyte distribution width (RBC) [Ratio] 12.6 % 11.6-14.6 [facility] Immature granulocytes/100 WBC (Bld) 0.200 % 0.0-0.9 [facility] Comment on above: IG% - Immature Granu locytes (promyelocytes, myelocytes and metamyelocytes) > 1% indicates that a LEFT SHIFT is Present. MCH (RBC) [Entitic mass] 31.4 pg 27.0-32.0 [facility] Nucleated RBC/100 WBC (Bld) [Ratio] 0 % 0-5 [facility] MCHC Auto (RBC) [Mass/Vol]Or dered By: Dr. Armstrong on 01-12-2023 MCHC (RBC) [Mass/Vol] 33.7 g/dL 32-36 [facility] No Panel InformationOrdered By: Dr. Armstrong on 01-12-2023 D-Dimer Quantitative (PE/DVT) 0.46 FEU/ug/m 0.27-0.49 [facility] Comment on above: NORMAL D-Dimer level (<0.50) indicates no DVT or PE. Estimated Creatinine Clearance Calc 51.58 ml/min [facility] Estimated GFR (MDRD) Amer 86 mL/min >60 [facility] Comment on above: GFR Calc Estimated GFR (MDRD) Non-Af Amer 71 mL/min >60 [facility] Comment on above: Non- GFR Calc Troponin I High Sensitivity 7 pg/mL 3.0-54.0 [facility] Comment on above: Please Note: New Charlene t Units and Gender Specific Reference Ranges. For more information see Policy Stat Procedure [place] High Sensitivity Troponin (TNIH) and attachments. Platelets bldOrdered By: Dr. Armstrong on 01-12-2023 Platelets (Bld) [#/Vol] 222 10*3/uL 150-450 [facility] Serum or plasma calcium bernard urement (mass/volume)Ordered By: Dr. Armstrong on 01-12-2023 Calcium [Mass/Vol] 8.8 mg/dL 8.5-10.1 [facility] Serum or plasma creatinine m easurement (mass/volume)Ordered By: Dr. Armstrong on 01-12-2023 Creatinine [Mass/Vol] 0.86 mg/dL 0.55-1.02 [facility] Comment on above: The validity of the calculated GFR & GFRAA in patients over 70 years has not been determined. Clinical correlation is essential. Serum or plasma urea nitroge n measurement (mass/volume)Ordered By: Dr. Armstrong on 01-12-2023 Urea nitrogen [Mass/Vol] 12 mg/dL 7-18 [facility] Thin prep Papanicolaou smear with manual screeningOrdered By: Dr. Armstrong on 01-12-2023 Thin prep Papanicolaou smear with manual screening 7 5-15 [facility] PTH INTACT BLDon 08-09-2022 Parathyrin.intact [Mass/Vol] 29 pg/mL 15 - 65 pg/mL [facility] Calcium.ionized [Moles/Vol]o n 08-08-2022 Calcium.ionized (Bld) [Mass/Vol] 1.32 mmol/L High 1.08 - 1.30 mmol/L [facility] Calcium.ionized adjusted to pH 7.4 (Bld) [Moles/Vol] 1.27 mmol/L 1.08 - 1.30 mmol/L [facility] No Panel Informationon 06-11 IMPRESSION: 1. Evidence of previous calcific tendinitis supraspinatus tendons bilaterally 2. Moderate degenerative changes in each shoulder Promotional Demonstrator: TRI Transcribe Date/Time: Jun 11 2022 1:28P Dictated by : MJ BARRIOS DO This examination was interpreted and the report reviewed and electronically signed by: MJ BARRIOS DO on Jun 11 2022 1:29PM EST ZZZ__NOT_ USE_DIVISIO N OF RADIOLOGY No Panel InformationOrdered By: Ccf Provider on 06-11-2022 [facility] XR Shoulder - left 3 Viewson 06-11-2022 * * *Final Report* * * DATE OF EXAM: Jun 10 2022 2:17PM WOX 5252 - XR SHLDR >/=3V AP/MANUEL AP/OTHR LT / PROCEDURE REASON: Acute pain of left shoulder * * * * Physician Interpretation * * * * EXAM(s): XR SHLDR >/=3V AP/MANUEL AP/OTHR LT, XR SHLDR >/=3V AP/MANUEL AP/OTHR RT EXAM DATE/TIME: 06/10/2022 2:17 PM HISTORY: 66 years old Clinical information: Acute pain of left shoulder pain in left shoulder for a month in shoulder joint no inj and pain all across top of right into the anterior chest down to breast area no inj TECHNIQUE: Images: XR SHLDR >/=3V AP/MANUEL AP/OTHR LT, XR SHLDR >/=3V AP/MANUEL AP/OTHR RT Comparison: None. RESULT: Findings: Surgical fixation hardware lower cervical spine noted. Bilateral findings: Moderate narrowing of the AC joints. Calcification in the soft tissues along the greater tuberosity of the humerus is noted. Moderate narrowing of the glenohumeral joints. This is probably due to previous calcific tendinitis of the supraspinatus tendon.. Irregularity of the greater tuberosity of the humerus bilaterally. Right :No fractures or dislocations are seen. Left :No fractures or dislocations are seen. YoavZZ_DO_NOT_ USE_DIVISIO N OF RADIOLOGY Provider, [facility] - 06/11/2022 * * *Final Report* * * DATE OF EXAM: Jun 10 2022 2:17PM WOX 5252 - XR SHLDR >/=3V AP/MANUEL AP/OTHR LT / PROCEDURE REASON: Acute pain of left shoulder * * * * Physician Interpretation * * * * EXAM(s): XR SHLDR >/=3V AP/MANUEL AP/OTHR LT, XR SHLDR >/=3V AP/MANUEL AP/OTHR RT EXAM DATE/TIME: 06/10/2022 2:17 PM HISTORY: 66 years old Clinical information: Acute pain of left shoulder pain in left shoulder for a month in shoulder joint no inj and pain all across top of right into the anterior chest down to breast area no inj TECHNIQUE: Images: XR SHLDR >/=3V AP/MANUEL AP/OTHR LT, XR SHLDR >/=3V AP/MANUEL AP/OTHR RT Comparison: None. RESULT: Findings: Surgical fixation hardware lower cervical spine noted. Bilateral findings: Moderate narrowing of the AC joints. Calcification in the soft tissues along the greater tuberosity of the humerus is noted. Moderate narrowing of the glenohumeral joints. This is probably due to previous calcific tendinitis of the supraspinatus tendon.. Irregularity of the greater tuberosity of the humerus bilaterally. Right :No fractures or dislocations are seen. Left :No fractures or dislocations are seen. IMPRESSION IMPRESSION: 1. Evidence of previous calcific tendinitis supraspinatus tendons bilaterally 2. Moderate degenerative changes in each shoulder Promotional Demonstrator: PSCB Transcribe Date/Time: Jun 11 2022 1:28P Dictated by : MJ BARRIOS DO This examination was interpreted and the report reviewed and electronically signed by: MJ BARRIOS DO on Jun 11 2022 1:29PM [facility] XR Shoulder - right 3 Viewso n 06-11-2022 * * *Final Report* * * DATE OF EXAM: Jun 10 2022 2:17PM WOX 5253 - XR SHLDR >/=3V AP/MANUEL AP/OTHR RT / PROCEDURE REASON: Acute pain of right shoulder * * * * Physician Interpretation * * * * EXAM(s): XR SHLDR >/=3V AP/MANUEL AP/OTHR LT, XR SHLDR >/=3V AP/MANUEL AP/OTHR RT EXAM DATE/TIME: 06/10/2022 2:17 PM HISTORY: 66 years old Clinical information: Acute pain of left shoulder pain in left shoulder for a month in shoulder joint no inj and pain all across top of right into the anterior chest down to breast area no inj TECHNIQUE: Images: XR SHLDR >/=3V AP/MANUEL AP/OTHR LT, XR SHLDR >/=3V AP/MANUEL AP/OTHR RT Comparison: None. RESULT: Findings: Surgical fixation hardware lower cervical spine noted. Bilateral findings: Moderate narrowing of the AC joints. Calcification in the soft tissues along the greater tuberosity of the humerus is noted. Moderate narrowing of the glenohumeral joints. This is probably due to previous calcific tendinitis of the supraspinatus tendon.. Irregularity of the greater tuberosity of the humerus bilaterally. Right :No fractures or dislocations are seen. Left :No fractures or dislocations are seen. ZZZ_DO_NOT_ USE_DIVISIO N OF RADIOLOGY Provider, [facility] - 06/11/2022 * * *Final Report* * * DATE OF EXAM: Jun 10 2022 2:17PM WOX 5253 - XR SHLDR >/=3V AP/MANUEL AP/OTHR RT / PROCEDURE REASON: Acute pain of right shoulder * * * * Physician Interpretation * * * * EXAM(s): XR SHLDR >/=3V AP/MANUEL AP/OTHR LT, XR SHLDR >/=3V AP/MANUEL AP/OTHR RT EXAM DATE/TIME: 06/10/2022 2:17 PM HISTORY: 66 years old Clinical information: Acute pain of left shoulder pain in left shoulder for a month in shoulder joint no inj and pain all across top of right into the anterior chest down to breast area no inj TECHNIQUE: Images: XR SHLDR >/=3V AP/MANUEL AP/OTHR LT, XR SHLDR >/=3V AP/MANUEL AP/OTHR RT Comparison: None. RESULT: Findings: Surgical fixation hardware lower cervical spine noted. Bilateral findings: Moderate narrowing of the AC joints. Calcification in the soft tissues along the greater tuberosity of the humerus is noted. Moderate narrowing of the glenohumeral joints. This is probably due to previous calcific tendinitis of the supraspinatus tendon.. Irregularity of the greater tuberosity of the humerus bilaterally. Right :No fractures or dislocations are seen. Left :No fractures or dislocations are seen. IMPRESSION IMPRESSION: 1. Evidence of previous calcific tendinitis supraspinatus tendons bilaterally 2. Moderate degenerative changes in each shoulder Promotional Demonstrator: PSCB Transcribe Date/Time: Jun 11 2022 1:28P Dictated by : MJ BARRIOS DO This examination was interpreted and the report reviewed and electronically signed by: MJ BARRIOS DO on Jun 11 2022 1:29PM [facility] No Panel Informationon 06-10 Radiology Study observation (narrative) [facility] XR SHOULDER GENERAL 3V OR MO RE AP/TRUE AP/OTHER RIGHTon 06-10-2022 [facility] No Panel Informationon 02-28 [facility] SPIROMETRY WITH DILATOR IF O BSTRUCTEDon 02-28-2022 AIU50-90% PRE (L/S) 1.43 L/S [facility] FEV1 PRE (L) 1.94 L [facility] FEV1/FVC PRE (%) 0.74 % [facility] FVC PRE (L) 2.60 L [facility] PEF PRE (L/S) 5.34 L/S [facility] US KIDNEY/BLADDERon 02-07-20 [facility] XR Chest PA and Lateralon IMPRESSION: Stable chest. No acute radiographic abnormality. Promotional Demonstrator: PSCB Transcribe Date/Time: Jan 24 2022 6:16P Dictated by : PAOLA RAMOS MD This examination was interpreted and the report reviewed and electronically signed by: PAOLA RAMOS MD on Jan 24 2022 6:20PM [facility] DIVISION OF RADIOLOGY * * *Final Report* * * DATE OF EXAM: Jan 24 2022 5:36PM WOX 5291 - XR CHEST 2V FRONTAL/LAT / PROCEDURE REASON: Rib pain * * * * Physician Interpretation * * * * EXAMINATION: CHEST RADIOGRAPH (2 VIEW FRONTAL & [...] with degenerative change and mild scoliotic curvature. DIVISION OF RADIOLOGY Provider, Sunny Regalado - 01/24/2022 * * *Final Report* * * DATE OF EXAM: Jan 24 2022 5:36PM WOX 5291 - XR CHEST 2V FRONTAL/LAT / PROCEDURE REASON: Rib pain * * * * Physician Interpretation * * * * EXAMINATION: CHEST RADIOGRAPH (2 VIEW FRONTAL & [...] with degenerative change and mild scoliotic curvature. IMPRESSION IMPRESSION: Stable chest. No acute radiographic abnormality. Promotional Demonstrator: TRI Transcribe Date/Time: Jan 24 2022 6:16P Dictated by : PAOLA RAMOS MD This examination was interpreted and the report reviewed and electronically signed by: PAOLA RAMOS MD on Jan 24 2022 6:20PM EST [facility] Radiology Study observation (narrative) [facility] XR Chest PA and LateralOrder ed By: Ccf Provider on 01-24-2022 [facility] No Panel Informationon 09-19 Radiology Study observation (narrative) [facility] XR Humerus - left AP and Lat [facility] 09-19-2021 IMPRESSION: NO ACUTE FRACTURE OR FOCAL ABNORMALITY Promotional Demonstrator: TRI Transcribe Date/Time: Sep 19 2021 5:36P Dictated by : SHUBHAM LION MD This examination was interpreted and the report reviewed and electronically signed by: SHUBHAM LION MD on Sep 19 2021 5:37PM [facility] DIVISION OF RADIOLOGY * * *Final Report* * * DATE OF EXAM: Sep 19 2021 5:26PM WOX 5354 - XR HUMERUS 2V AP/LAT LT / PROCEDURE REASON: Arm injuries, left, initial encounter * * * * Physician Interpretation * * * * Examination: XR HUMERUS 2V AP/LAT LT History: Arm injuries, left, initial encounter Technique: XR HUMERUS 2V AP/LAT LT Comparison: None RESULT: Diffuse osteopenia. Degenerative change involving the greater tuberosity. No fracture or focal bony abnormality. Normal mineralization and alignment [facility] * * *Final Report* * * DATE OF EXAM: Sep 19 2021 5:26PM WOX 5354 - XR HUMERUS 2V AP/LAT LT / PROCEDURE REASON: Arm injuries, left, initial encounter * * * * Physician Interpretation * * * * Examination: XR HUMERUS 2V AP/LAT LT History: Arm injuries, left, initial encounter Technique: XR HUMERUS 2V AP/LAT LT Comparison: None RESULT: Diffuse osteopenia. Degenerative change involving the greater tuberosity. No fracture or focal bony abnormality. Normal mineralization and alignment IMPRESSION IMPRESSION: NO ACUTE FRACTURE OR FOCAL ABNORMALITY Promotional Demonstrator: [facility] Transcribe Date/Time: Sep 19 2021 5:36P Dictated by : SHUBHAM LOIN MD This examination was interpreted and the report reviewed and electronically signed by: SHUBHAM LION MD on Sep 19 2021 5:37PM [facility] XR Pelvis and Hip - left AP and Lateral frogon 09-19-2021 IMPRESSION: DEGENERATIVE CHANGES DESCRIBED. FINDINGS DESCRIBED MAY BE CONSISTENT WITH AVASCULAR NECROSIS, WITHOUT EVIDENCE OF COLLAPSE OR FRAGMENTATION. IF CLINICALLY INDICATED, MRI RECOMMENDED Promotional Demonstrator: [facility] Transcribe Date/Time: Sep 19 2021 5:34P Dictated by : SHUBHAM LION MD This examination was interpreted and the report reviewed and electronically signed by: SHUBHAM LION MD on Sep 19 2021 5:36PM [facility] DIVISION OF RADIOLOGY * * *Final Report* * * DATE OF EXAM: Sep 19 2021 5:26PM WOX 5351 - XR HIP 3V PELV+ AP/LAT LT / PROCEDURE REASON: Hip injury, initial encounter * * * * Physician Interpretation * * * * Examination: XR HIP 3V PELV+ AP/LAT LT History: Hip injury, initial encounter Technique: XR HIP 3V PELV+ AP/LAT LT Comparison: 07/20/2019 RESULT: Diffuse osteopenia. No fracture or focal bony abnormality. Mild joint space narrowing and osteophytosis. There is some suggestion of subchondral sclerosis. Early avascular necrosis without collapse cannot be excluded. Extensive vascular calcification is noted. SI joints appear unremarkable DIVISION OF RADIOLOGY Provider, [facility] - 09/19/2021 * * *Final Report* * * DATE OF EXAM: Sep 19 2021 5:26PM WOX 5351 - XR HIP 3V PELV+ AP/LAT LT / PROCEDURE REASON: Hip injury, initial encounter * * * * Physician Interpretation * * * * Examination: XR HIP 3V PELV+ AP/LAT LT History: Hip injury, initial encounter Technique: XR HIP 3V PELV+ AP/LAT LT Comparison: 07/20/2019 RESULT: Diffuse osteopenia. No fracture or focal bony abnormality. Mild joint space narrowing and osteophytosis. There is some suggestion of subchondral sclerosis. Early avascular necrosis without collapse cannot be excluded. Extensive vascular calcification is noted. SI joints appear unremarkable IMPRESSION IMPRESSION: DEGENERATIVE CHANGES DESCRIBED. FINDINGS DESCRIBED MAY BE CONSISTENT WITH AVASCULAR NECROSIS, WITHOUT EVIDENCE OF COLLAPSE OR FRAGMENTATION. IF CLINICALLY INDICATED, MRI RECOMMENDED Promotional Demonstrator: TRI Transcribe Date/Time: Sep 19 2021 5:34P Dictated by : SHUBHAM LION MD This examination was interpreted and the report reviewed and electronically signed by: SHUBHAM LION MD on Sep 19 2021 5:36PM EST [facility] XR Pelvis and Hip - left AP and Lateral frogOrdered By: Ccf Provider on 09-19-2021 [facility] ANES Mireille 12-24-2017 ANES POST HNO ID: [id number]: Pavan CollierService: AnesthesiologyAuthor Type: AnesthesiologistType: Anesthesia PostOpFiled: 12/24/2017 1:09 PMNote Text:POST ANESTHESIA EVALUATION NOTESERVICE DATE: 12/24/2017SERVICE TIME: 12DOB: 1955Vitals: 12/24/1807Temp: 36.6 ?C (97.9 ?F) 36.3 ?C (97.3 ?F) 36.5 ?C (97.7 ?F) 36.6 ?C (97.9?F) 12/24/1807BP: 139/71 138/70 140/70 126/70 02/14/801649 0212/24/1808Pulse: 66 61 63 64 12/24/1807Resp: 16 16 16 18 12/24/1807SpO2: 95% 93% 93% 95%Validated Vital Signs: YesPOST ANES STATUS: No apparent anesthetic complications. The patient isappropriately hydrated with stable respiratory and cardiovascular status.Patient has safe and adequate airway control. The patient has appropriatepain relief and no significant post operative nausea or vomiting. Thepatient has achieved baseline mental status.Further assessment by Anesthesia Service: NoneOther Remarks:SIGNATURE: Pavan Collier MD PATIENT NAME: Shantel AugustinATE: December 24, 2017 : 1:09 PM PAGER/CONTACT #: [phone] [facility] ANES PREOPon 12-24-2017 ANES PREOP HNO ID: [id number]: Pavan CollierService: AnesthesiologyAuthor Type: AnesthesiologistType: Anesthesia PreOpFiled: 12/24/2017 6:48 AMNote Text: ANESTHESIOLOGY DAY OF SURGERY NOTESERVICE DATE: 12/24/2017SERVICE TIME: 6:48 AMDOB: 1955Procedure(s) (LRB):COLONOSCOPY (N/A)EGD (N/A)Surgeon(s):Tish EscalanteanEstimated body mass index is 29.67 kg/(m2) as calculated from thefollowing: Height as of 12/05/17: 157.5 cm (5' 2). Weight as of 12/05/17: 73.6 kg (162 lb 3.2 oz).Most recent hematocrit and potassium results:Hematocrit 41.0 11/28/2017Potassium 4.4 11/28/2017ANES DOS/PREOP NOTE: Vitals:There were no vitals filed for this visit.ACTIVE PROBLEM LISTAtypical Nevus of BackActinic KeratosisActinic Skin DamageMelanocytic Nevi of FaceDermatofibroma of Right ThighDermatofibroma of ForearmOther Seborrheic KeratosisSolar LentiginesDegeneration of Lumbar Or Lumbosacral Intervertebral DiscGerd (Gastroesophageal Reflux Disease)DepressionLung NodulesEmphysema of Lung (Hcc)Pill DysphagiaType 2 Diabetes Mellitus With Diabetic Neuropathy (Hcc)Postconcussion SyndromeMemory LossCervicalgiaSquamous Cell Skin Cancer, Nasal TipMixed HyperlipidemiaPad (Peripheral Artery Disease) (Hcc)Chronic Obstructive Pulmonary Disease (Hcc)Tobacco AbuseFh: Colon PolypsDysphagiaBack PainPulmonary HtnPAST MEDICAL HISTORYDiagnosis Date- Back pain- Depression- Diabetes mellitus (HCC)- Diverticulitis- Dysphagia- Emphysema of lung (HCC) 05/15/2015- GI bleed- History of squamous cell carcinoma 04/2016 Right nasal tip- Hyperlipidemia- Lung nodules- Pulmonary HTN 12/08/2017 mild- Squamous cell skin cancer, nasal tip 06/24/2016- Tobacco abuse 03/28/2017PAST SURGICAL HISTORYProcedure Laterality Date- ADDTL NECK SPINE FUSION 09/2004- COLONOSCOP W/ OR W/O [facility] SPEC 09/01/12- COLONOSCOP W/ OR W/O [facility] SPEC Done in [place] unable to obtain- COLONOSCOP W/ OR W/O [facility] SPEC 11/17/2013 Colonoscopy- COLONOSCOPY 1982- EGD W/O OR W/BRUSH/WASH 06/04/2013 EGD- EGD W/O OR W/BRUSH/WASH 05/17/15 EGD- HYSTERECTOMY HX 1984 Pelvic pain AND DUB- PAST SURGICAL HISTORY OF removed tissue nose for SCC- PAST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 spondylosis/facet arthropathy and myofascialtightness.Sinc e last visit, no pain management eval for SCS.OUt of norco and no meds for 6 days, so pain is worse than normal.Since last visit, tripped this past Friday on a stoop, thankfully caughtherself with right arm before she hit hard to the ground.She is unsure if pain worse or not.Current pain 8/10. When takes meds, takes pain down to 4/10. Worsening N/T in the fingers.Using heat, TENS unit, moist heat- if these not work, then gets in shower.Follows with psych and psychology locally closer to home. Dr. Gonzalez at [facility] Latest Ref Rng AND Units 01/08/2017Protein, Total 6.3 - 8.0 g/dL 8.5 (H)Albumin 3.9 - 4.9 g/dL 4.9Calcium 8.5 - 10.2 mg/dL 9.9Bilirubin, Total 0.2 - 1.3 mg/dL 0.5Alkaline Phosphatase 32 - 117 U/L 32AST 13 - 35 U/L 24Glucose 74 - 99 mg/dL 92BUN 7 - 21 mg/dL 7Creatinine 0.58 - 0.96 mg/dL 0.71Sodium 136 - 144 mmol/L 138Potassium 3.7 - 5.1 mmol/L 3.6 (L)Chloride 97 - 105 mmol/L 96 (L)CO2 22 - 30 mmol/L 27Anion Gap 9 - 18 mmol/L 15ALT 7 - 38 U/L 22eGFR- >60eGFR-All Other Races . >60Vitamin D 25 Hydroxy 31.0 - 80.0 ng/mL 44.9She is s/p previous right suprascaular nerve block with pain management in pastwithout relief.Previous SCC removal nose.Previous MRI C spine stable post surgical changes.Other imaging:MRI right shoulder 08/2014:SUPRASPINATOUS TENDINOSIS WITH SMALL INTERSITIAL TEAR.INFRASPINATUS CALCIFIC TENDINOSIS.MODERATE ACROMIOCLAVICULAR JOINT OSTEOARTHRITIS WITH INFERIOR SPUREXERTING MASS EFFECT ON SUPRASPINATOUS.MILD THICKENING OF SUBDELTOID BURSA.c spine xrays with flex/ext: 03/2014:The patient is S/P C5-7 interbody bony fusion with anterior compressionplate fixation. The fixation hardware appears intact and well seated.The fused discs appear well healed. No fracture is seen. The vertebraeare normally aligned. There is no evidence of listhesis, subluxation orinstability. There is prominent anterior marginal osteophytosis at theC4-5 level where the disc space height is normally maintained. There arelesser anterior marginal osteophytes at the C7-T1 and C3-4 levels. Nobony foraminal stenosis is seen on the right. There is suboptimalpositioning in the contralateral oblique view for evaluation of theleft-sided foramina. Paraspinal soft tissues are unremarkable.IMPRESSION: 1. No acute pathology detected.2. Stable fusion and hardware fixation3. SpondylosisTreatment so far includes:SurgeryPrevious PT for fall at work via [facility] for neck pain.trialed in past: vicodin, flexeril, baclofen.Previous injections- 2004- steroid injections, unclear if facet or ESIs.Unknown levels. Helped for couple of days.Acupuncture 2007- not like the practioner, not good experience. [facility] coverage inthe past.PAST MEDICAL HISTORYDiagnosis Date- Back pain- Depression- Diabetes mellitus (HCC)- Diverticulitis- Dysphagia- Emphysema of lung (HCC) 05/15/2015- GI bleed- History of squamous cell carcinoma 04/2016 Right nasal tip- Hyperlipidemia- Lung nodules- Squamous cell skin cancer, nasal tip 06/24/2016- Tobacco abuse 03/28/2017h/o diverticulitis past 12/2011PAST SURGICAL HISTORYProcedure Laterality Date- ADDTL NECK SPINE FUSION 09/2004- COLONOSCOP W/ OR W/O [facility] SPEC 09/01/12- COLONOSCOP W/ OR W/O [facility] SPEC Done in [place] unable to obtain- COLONOSCOP W/ OR W/O [facility] SPEC 11/17/2013 Colonoscopy- COLONOSCOPY 1982- EGD W/O OR W/BRUSH/WASH 06/04/2013 EGD- EGD W/O OR W/BRUSH/WASH 05/17/15 EGD- HYSTERECTOMY HX 1984 Pelvic pain AND DUB- PAST SURGICAL HISTORY OF removed tissue nose- PAST SURGICAL HISTORY OF 10/13/2017 Excision nasal mass, Dr Juarez Harris- REMOVAL GALLBLADDER 2000- REMOVAL OF OVARY(S) 1985 Bilateral- REMOVE TONSIL AND ADENOI UNDER AGE 14- SLING OPER STRES INCONTINENCE 2002More specifically anterior neck fusion C5-7 2004Current Outpatient Prescriptions:VITAMIN D 50,000 unit capsule Take 1 capsule by mouth once each week.gabapentin (NEURONTIN) 300 mg capsule Take 1 capsule by mouth four times daily.CO Q-10 100 mg cap capsule Take 1 capsule by mouth twice daily.montelukast (SINGULAIR) 10 mg tablet TAKE 1 TABLET BY MOUTH AT BEDTIMErosuvastatin (CRESTOR) 10 mg tablet Take 1 tablet by mouth daily at bedtime.mupirocin (BACTROBAN) 2 % ointment Apply 1 application to affected area threetimes daily. Location: left neck posterior to eartriamcinolone acetonide (KENALOG) 0.1 % cream Apply 1 application to affectedarea twice daily.tiZANidine (ZANAFLEX) 4 mg tablet Take 1 to 2 tablets po bid prn for neckpain/muscle spasmpseudoephedrine (SUDOGEST) 60 mg tablet Take 1 tablet by mouth every 6 hours asneeded.metFORMIN (GLUCOPHAGE) 500 mg tablet Take 1 tablet by mouth daily withbreakfast.celecoxib (CELEBREX) 100 mg capsule Take 1 capsule by mouth twice daily.pantoprazole DR (PROTONIX) 40 mg tablet Take 1 tablet by mouth once daily.L.ACID/L.CASEI/B.B IF/B.ALVINO/FOS (PROBIOTIC BLEND ORAL) Take by mouth once daily.ranitidine (ZANTAC) 150 mg tablet Take 150 mg by mouth twice daily. takes asneeded.blood sugar diagnostic (BLOOD GLUCOSE TEST) test strip Test blood sugar(s) 3times daily. Dx: Type 2 DM - Controlled E11.9 Insulin: NoBlood-Glucose Meter monitoring kit Glucose Meter of Choice - Kit - Dx: Type 2DM - Controlled E11.9Lancets lancets Test blood sugar(s) 3 times daily. Dx: Type 2 DM - ZaquthvfmoL32.9 Insulin: Nocitalopram (CELEXA) 20 mg tablet Take 1 tablet by mouth once daily.blood sugar diagnostic (FREESTYLE TEST) test strip Use as instructed (Free StyleLite please)COMPOUNDED PRESCRIPTION Tens unitDX: DDD of neck and lumbar spineclobetasol (TEMOVATE) 0.05 % ointment Apply to affected areas of hands twice aday for up to 2 weeks. Discontinue for 1 week. Repeat as needed.aspirin, enteric coated (ASPIRIN, ENTERIC COATED) 81 mg EC tablet Take 81 mg bymouth once daily.lancets (FREESTYLE LANCETS) 28 gauge misc Test blood sugar(s) 3 times daily.Dx: Type 2 DM - Controlled E11.9 Insulin: NotraZODone 100 mg tablet Take 100 mg by mouth daily at bedtime. One or twobusPIRone 5 mg tablet Take 5 mg by mouth twice daily.Blood-Glucose Meter (FREESTYLE LITE METER) monitoring kit Use as directed.celecoxib (CELEBREX) 100 mg capsule TAKE 1 CAPSULE BY MOUTH TWICE DAILYNo current facility-administered medications for this visit.ALLERGIESAllergen Reactions- Metronidazole Anaphylaxis- Adhesive Other: See Comments redness with bandaids- Augmentin [Amoxicil* Other: See Comments Thrush/yeast infection- Ciprofloxacin Rash- Clindamycin Swelling throat swelling- Doxycycline Rash- Penicillins Intolerance Yeast infections- Prozac [Fluoxetine * Rash- Sulfa Dyne RashFMH and social hx reviewedExamBP 126/59 (BP Site: Left Arm, BP Position: Sitting, BP Cuff Size: Large Adult) Pulse 67 Resp 18 Ht 157.5 cm (5' 2) Wt 74.5 kg (164 lb 3.2 oz) SpO2 95% BMI 30.03 kg/l4Lrfwka flat affect, cooperative.Very tight upper trap region bilaterallyNeck ROM very limited end ROM pain(+) b/l facet loading, b/l SI joint TTPImpression/Plan: 62 yo RH woman, still smoker (but decreased) with neck pain andh/o C5-7 anterior fusion 2003, decreased sensation right C2,3; C6,7, right L4 toLT, but intact elsewhere neurologically.Lumbar spondylosis, with significant multilevel nearly bridging osteophytesDISH. Review of recent CT abd/pelvis with multilevel spondylosis and facetarthrosis lumbar spine.Left GT bursitis an issue commonly. Possible L4 or L5 radicular sxs by historyon leftSuspected pain generators of spondylosis/facet arthropathy and myofascialtightness in the neck, back, but also some radicular component to the arm pain.SI joint pain.Right RTC issues, including tendinosis supraspinatus and small interstitialtear, tendinosis infraspinatus, subdeltoid bursitis, mod DJD AC joint with bonespur impinging on supraspinatus. Had response to shoulder injection by orth[place]- not improving. And in fact worsening over time.MRI with facet arthrosis at L5-S1 and mild disk bulge. xray shoulder mild rightAC DJDCT chest also showed multilevel degenerative changes, osteophytes, nearlybridging in couple areas, but mid back not a big pain generator for her.Depressed. Follows with psych in [place], no SI/HI.Possible dysphagia, very large C4 anterior osteophyte- not complete prior MBSCPRP not covered by insurance, but this is what she needs the most.OARRS reviewed and appropriate today. Repeat utox and pain panelLong term goal would be to completely off opiates- but she has failed multipletreatments either due to intolerance or inefficacy or her insurance has notcover specific interventions. I think she needs CPRP foremost, but is notcovered. Severe depression, impaired home situation. Follows with psychologyand psychiatry.Pain management referral- SCS eval since have run the gamut of tx and have notbeen able to get CPRP covered and with continuing pain. Benefit with TENSUsing zanaflex, celebrex, neurontin, norco tid prn.Benefits, risks and alternatives of subacromial shoulder injection explained andpatient wished to proceed. Approach for injection was posterolateral. The areawas prepped twice with betadine and twice with alcohol. 40mg kenalog and 1cc of1% lidocaine was injected after aspirating and not seeing blood return. Thepatient tolerated the procedure well and reported improvement in pain within 2minutes. No overt sequelae were demonstrated during or after the procedure.F/u 3 monthsMsDavid Prasad understands above plan; questions asked and answered. Medicationoptions, including side effects, were discussed in detail. Ms. Prasad agrees toplan as noted above.These notes are used for the purpose of medical documentation and that for usefor other medical providers. Jargon expressed here is intentioned for use underthis context.Kathy Eric MD [facility] Large Joint Arthro/Inj: R hernández bacromial bursa [facility] Vital Signs Date Time Vital Sign Value Performing Clinician Faci lity 05-16-2025 14:21-0400 Body height 154.[address] Jake Raymond MD Work Phone: [facility] 05-16-2025 14:21-0400 Body mass index (BMI) [Ratio] 24.9 kg/m2 Dr. Jake Raymond MD Work Phone: [facility] 05-16-2025 14:21-0400 Body weight 59.[address] Jake Ryamond MD Work Phone: [facility] 05-16-2025 14:21-0400 Diastolic blood pressure 82 mm[Hg] Dr. Jake Raymond MD Work Phone: [facility] 05-16-2025 14:21-0400 Heart rate 75 /min Dr. Jake Raymond MD Work Phone: [facility] 05-16-2025 14:21-0400 Respiratory rate 18 /min Dr. Jake Raymond MD Work Phone: [facility] 05-16-2025 14:21-0400 SaO2% (BldA) [Mass fraction] 95 % Dr. Jake Raymond MD Work Phone: [facility] 05-16-2025 14:21-0400 Systolic blood pressure 134 mm[Hg] Dr. Jake Raymond MD Work Phone: [facility] 04-06-2025 07:37-0400 Body mass index (BMI) [Ratio] 24.5 kg/m2 Alexus Sven DO Work Phone: [facility] 04-06-2025 07:37-0400 Body temperature 97.3 [degF] Alexus Sven DO Work Phone: [facility] 04-06-2025 07:37-0400 Body weight 58.96 kg Alexus Sven DO Work Phone: [facility] 04-06-2025 07:37-0400 Diastolic blood pressure 71 mm[Hg] Alexus Sven DO Work Phone: [facility] 04-06-2025 07:37-0400 Heart rate 74 /min Alexus Sven DO Work Phone: 0(473)994-274708 [place] [address] 04-06-2025 07:37-0400 Respiratory rate 18 /min Alexus Sven DO Work Phone: 6(602)022-900208 [place] [address] 04-06-2025 07:37-0400 SaO2% (BldA) [Mass fraction] 98 % Alexus Sven DO Work Phone: 0(631)481-783008 [place] [address] 04-06-2025 07:37-0400 Systolic blood pressure 114 mm[Hg] Alexus Sven DO Work Phone: 0(563)724-821808 [place] [address] 03-28-2025 13:52-0400 Body height 154.94 cm Alexus Sven DO Work Phone: 2(861)185-796308 [place] [address] 03-28-2025 13:52-0400 Body weight 61.23 kg Alexus Sven DO Work Phone: 4(288)736-543308 [place] [address] 03-28-2025 13:52-0400 Heart rate 89 /min Alexus Sven DO Work Phone: 5(695)500-960308 [place] [address] 03-28-2025 13:52-0400 SaO2% (BldA) [Mass fraction] 97 % Alexus Sven DO Work Phone: 4(526)571-157908 [place] [address] 03-16-2025 12:53-0400 Body height 157.48 cm Alexus Sven DO Work Phone: 4(094)846-648508 [place] [address] 03-16-2025 12:53-0400 Body mass index (BMI) [Ratio] 24.7 kg/m2 Alexus Sven DO Work Phone: 1(123)551-526808 [place] [address] 03-16-2025 12:53-0400 Body temperature 97.1 [degF] Alexus Sven DO Work Phone: 8(505)476-745808 [place] [address] 03-16-2025 12:53-0400 Body weight 61.23 kg Alexus Sven DO Work Phone: 1(850)526-870008 [place] [address] 03-16-2025 12:53-0400 Diastolic blood pressure 76 mm[Hg] Alexus Sven DO Work Phone: 4(543)602-665208 [place] [address] 03-16-2025 12:53-0400 Heart rate 95 /min Alexus Sven DO Work Phone: 1(660)268-576008 [place] [address] 03-16-2025 12:53-0400 Respiratory rate 16 /min Alexus Sven DO Work Phone: 4(698)393-438208 [place] [address] 03-16-2025 12:53-0400 SaO2% (BldA) [Mass fraction] 96 % Alexus Sven DO Work Phone: 1(445)284-932908 [place] [address] 03-16-2025 12:53-0400 Systolic blood pressure 136 mm[Hg] Alexus Sven DO Work Phone: 4(719)039-116908 [place] [address] 03-09-2025 12:15-0400 Body temperature 97.7 [degF] Alexus Sven DO Work Phone: 0(181)152-003208 [place] [address] 03-09-2025 12:15-0400 Diastolic blood pressure 53 mm[Hg] Alexus Sven DO Work Phone: 3(905)795-457208 [place] [address] 03-09-2025 12:15-0400 Heart rate 68 /min Alexus Sven DO Work Phone: 4(308)146-304408 [place] [address] 03-09-2025 12:15-0400 Respiratory rate 16 /min Alexus Sven DO Work Phone: 3(390)913-925908 [place] [address] 03-09-2025 12:15-0400 SaO2% (BldA) [Mass fraction] 97 % Alexus Sven DO Work Phone: 4(301)283-271208 [place] [address] 03-09-2025 12:15-0400 Systolic blood pressure 104 mm[Hg] Alexus Sven DO Work Phone: 2(323)151-998408 [place] [address] 03-09-2025 10:04-0400 Body mass index (BMI) [Ratio] 24.6 kg/m2 Alexus Sven DO Work Phone: 9(523)261-019108 [place] [address] 03-09-2025 10:04-0400 Body weight 61.2 kg Alexus Sven DO Work Phone: [facility] 02-18-2025 14:21-0400 Body mass index (BMI) [Ratio] 25.44 kg/m2 Crsithian Vaili DO Work Phone: [facility] 02-18-2025 14:21-0400 Body temperature 97.11 [degF] Cristhian Masci DO Work Phone: [facility] 02-18-2025 14:21-0400 Body weight 61.92 kg Cristhian Masci DO Work Phone: [facility] 02-18-2025 14:21-0400 Diastolic blood pressure 82 mm[Hg] Cristhian Masci DO Work Phone: [facility] 02-18-2025 14:21-0400 Heart rate 75 /min Cristhian Vaili DO Work Phone: [facility] 02-18-2025 14:21-0400 SaO2% (BldA) [Mass fraction] 99 % Cristhian Vaili DO Work Phone: [facility] 02-18-2025 14:21-0400 Systolic blood pressure 146 mm[Hg] Cristhian Masci DO Work Phone: [facility] 02-02-2025 05:14-0400 Body mass index (BMI) [Ratio] 24.8 kg/m2 Alexus Sven DO Work Phone: [facility] 02-02-2025 05:14-0400 Body temperature 97.4 [degF] Alexus Sven DO Work Phone: [facility] 02-02-2025 05:14-0400 Body weight 61.68 kg Alexus Sven DO Work Phone: [facility] 02-02-2025 05:14-0400 Diastolic blood pressure 75 mm[Hg] Alexus Sven DO Work Phone: [facility] 02-02-2025 05:14-0400 Heart rate 68 /min Alexus Sven DO Work Phone: [facility] 02-02-2025 05:14-0400 Respiratory rate 18 /min Alexus Sven DO Work Phone: [facility] 02-02-2025 05:14-0400 SaO2% (BldA) [Mass fraction] 99 % Alexus Sven DO Work Phone: [facility] 02-02-2025 05:14-0400 Systolic blood pressure 132 mm[Hg] Alexus Sven DO Work Phone: [facility] 09-10-2024 13:50-0400 Body mass index (BMI) [Ratio] 25.27 kg/m2 Juarez Velasco MD Work Phone: [facility] 09-10-2024 13:50-0400 Body temperature 97.2 [degF] Juarez Velasco MD Work Phone: [facility] 09-10-2024 13:50-0400 Body weight 61.5 kg Juarez Velasco MD Work Phone: [facility] 09-10-2024 13:50-0400 Diastolic blood pressure 72 mm[Hg] Juarez Velasco MD Work Phone: [facility] 09-10-2024 13:50-0400 Heart rate 93 /min Juarez Velasco MD Work Phone: [facility] 09-10-2024 13:50-0400 Respiratory rate 18 /min Juarez Velasco MD Work Phone: [facility] 09-10-2024 13:50-0400 SaO2% (BldA) [Mass fraction] 98 % Juarez Velasco MD Work Phone: [facility] 09-10-2024 13:50-0400 Systolic blood pressure 120 mm[Hg] Juarez Velasco MD Work Phone: [facility] 08-17-2024 15:59-0400 Body mass index (BMI) [Ratio] 25.26 kg/m2 Cristhian Smith DO Work Phone: [facility] 08-17-2024 15:59-0400 Body temperature 97.2 [degF] Cristhian Vaili DO Work Phone: [facility] 08-17-2024 15:59-0400 Body weight 61.46 kg Cristhian Vaili DO Work Phone: [facility] 08-17-2024 15:59-0400 Diastolic blood pressure 63 mm[Hg] Cristhian Vaili DO Work Phone: [facility] 08-17-2024 15:59-0400 Heart rate 94 /min Cristhian Vaili DO Work Phone: [facility] 08-17-2024 15:59-0400 SaO2% (BldA) [Mass fraction] 98 % Cristhian Vaili DO Work Phone: [facility] 08-17-2024 15:59-0400 Systolic blood pressure 100 mm[Hg] Cristhian Vaili DO Work Phone: [facility] 2024 13:13-0400 Diastolic blood pressure 70 mm[Hg] Goree Tavares INFECTIOUS DISEASE TECHNICIAN.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 Work Phone: [facility] 2024 13:13-0400 Heart rate 79 /min Orville Tavares INFECTIOUS DISEASE TECHNICIAN.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 Work Phone: [facility] 2024 13:13-0400 Systolic blood pressure 113 mm[Hg] Goree Tavares INFECTIOUS DISEASE TECHNICIAN.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 Work Phone: [facility] 2024 12:53-0400 Body mass index (BMI) [Ratio] 25.54 kg/m2 Goree Tavares INFECTIOUS DISEASE TECHNICIAN.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 Work Phone: [facility] 2024 12:53-0400 Body temperature 97.59 [degF] Goree Tavares INFECTIOUS DISEASE TECHNICIAN.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 Work Phone: [facility] 2024 12:53-0400 Body weight 62.14 kg Goree Tavares INFECTIOUS DISEASE TECHNICIAN.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 Work Phone: [facility] 2024 12:53-0400 SaO2% (BldA) [Mass fraction] 95 % Orville Tavares APRNDavid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 Work Phone: [facility] 06-24-2024 09:51-0400 Body mass index (BMI) [Ratio] 25.35 kg/m2 Cristhian Masci DO Work Phone: [facility] 06-24-2024 09:51-0400 Body temperature 98.29 [degF] Cristhian Masci DO Work Phone: [facility] 06-24-2024 09:51-0400 Body weight 61.69 kg Cristhian Masci DO Work Phone: [facility] 06-24-2024 09:51-0400 Diastolic blood pressure 74 mm[Hg] Cristhian Masci DO Work Phone: [facility] 06-24-2024 09:51-0400 Heart rate 109 /min Cristhian Masci DO Work Phone: [facility] 06-24-2024 09:51-0400 SaO2% (BldA) [Mass fraction] 99 % Cristhian Masci DO Work Phone: [facility] 06-24-2024 09:51-0400 Systolic blood pressure 127 mm[Hg] Cristhian Masci DO Work Phone: [facility] 06-02-2024 08:43-0400 Body height 156 cm Cristhian Masci DO Work Phone: [facility] 06-02-2024 08:43-0400 Body mass index (BMI) [Ratio] 26.09 kg/m2 Cristhian Masci DO Work Phone: [facility] 06-02-2024 08:43-0400 Body temperature 97.9 [degF] Cristhian Masci DO Work Phone: [facility] 06-02-2024 08:43-0400 Body weight 63.5 kg Cristhian Masci DO Work Phone: [facility] 06-02-2024 08:43-0400 Diastolic blood pressure 76 mm[Hg] Cristhian Masci DO Work Phone: [facility] 06-02-2024 08:43-0400 Heart rate 76 /min Cristhian Smith DO Work Phone: [facility] 06-02-2024 08:43-0400 SaO2% (BldA) [Mass fraction] 97 % Cristhian Smith DO Work Phone: [facility] 06-02-2024 08:43-0400 Systolic blood pressure 124 mm[Hg] Cristhian Smith DO Work Phone: [facility] 04-21-2024 13:59-0400 Body height 157.5 cm Pelon Winchester MD Work Phone: [facility] 04-21-2024 13:59-0400 Body mass index (BMI) [Ratio] 26.45 kg/m2 Pelon Winchester MD Work Phone: [facility] 04-21-2024 13:59-0400 Body temperature 98.01 [degF] Pelon Winchester MD Work Phone: [facility] 04-21-2024 13:59-0400 Body weight 65.59 kg Pelon Winchester MD Work Phone: [facility] 04-21-2024 13:59-0400 Diastolic blood pressure 62 mm[Hg] Pelon Winchester MD Work Phone: [facility] 04-21-2024 13:59-0400 Heart rate 90 /min Pelon Winchester MD Work Phone: [facility] 04-21-2024 13:59-0400 Respiratory rate 14 /min Pelon Winchester MD Work Phone: [facility] 04-21-2024 13:59-0400 SaO2% (BldA) [Mass fraction] 100 % Pelon Winchester MD Work Phone: [facility] 04-21-2024 13:59-0400 Systolic blood pressure 102 mm[Hg] Pelon Winchester MD Work Phone: [facility] 02-23-2024 14:31-0400 Body height 157.5 cm Pelon Winchester MD Work Phone: [facility] 02-23-2024 14:31-0400 Body temperature 97.81 [degF] Pelon Winchester MD Work Phone: [facility] 02-23-2024 14:31-0400 Body weight 66.77 kg Pelon Winchester MD Work Phone: [facility] 02-23-2024 14:31-0400 Diastolic blood pressure 68 mm[Hg] Pelon Winchester MD Work Phone: [facility] 02-23-2024 14:31-0400 Heart rate 115 /min Pelon Winchester MD Work Phone: [facility] 02-23-2024 14:31-0400 SaO2% (BldA) [Mass fraction] 97 % Pelon Winchester MD Work Phone: [facility] 02-23-2024 14:31-0400 Systolic blood pressure 118 mm[Hg] Pelon Winchester MD Work Phone: [facility] 10-14-2023 09:43-0500 Body weight 67.13 kg Sherie Melgoza INFECTIOUS DISEASE TECHNICIAN.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 Work Phone: [facility] 10-14-2023 09:43-0500 Diastolic blood pressure 70 mm[Hg] Sherie Alpena INFECTIOUS DISEASE TECHNICIAN.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 Work Phone: [facility] 10-14-2023 09:43-0500 Heart rate 68 /min Sherie Alpena INFECTIOUS DISEASE TECHNICIAN.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 Work Phone: [facility] 10-14-2023 09:43-0500 Respiratory rate 15 /min Sherie Alpena INFECTIOUS DISEASE TECHNICIAN.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 Work Phone: [facility] 10-14-2023 09:43-0500 SaO2% (BldA) [Mass fraction] 100 % Sherie aCnnonter INFECTIOUS DISEASE TECHNICIAN.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 Work Phone: [facility] 10-14-2023 09:43-0500 Systolic blood pressure 128 mm[Hg] Sherie Alpena INFECTIOUS DISEASE TECHNICIAN.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 Work Phone: [facility] 09-29-2023 10:00-0500 Body temperature 97.11 [degF] NA Mirza PA-C Work Phone: [facility] 09-29-2023 10:00-0500 Body weight 67.13 kg NA Mirza PA-C Work Phone: [facility] 09-29-2023 10:00-0500 Diastolic blood pressure 74 mm[Hg] NA Mirza PA-C Work Phone: [facility] 09-29-2023 10:00-0500 Heart rate 75 /min NA Mirza PA-C Work Phone: [facility] 09-29-2023 10:00-0500 SaO2% (BldA) [Mass fraction] 98 % NA Mirza PA-C Work Phone: [facility] 09-29-2023 10:00-0500 Systolic blood pressure 130 mm[Hg] NA Mirza PA-C Work Phone: [facility] 09-10-2023 12:40-0400 Body weight 65.86 kg Sahra Podlogar INFECTIOUS DISEASE TECHNICIAN.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 Work Phone: [facility] 09-10-2023 12:40-0400 Diastolic blood pressure 78 mm[Hg] Sahra Podlogar INFECTIOUS DISEASE TECHNICIAN.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 Work Phone: [facility] 09-10-2023 12:40-0400 Heart rate 79 /min Sahra Podlogar INFECTIOUS DISEASE TECHNICIAN.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 Work Phone: [facility] 09-10-2023 12:40-0400 Respiratory rate 18 /min Sahra Podlogar INFECTIOUS DISEASE TECHNICIAN.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 Work Phone: [facility] 09-10-2023 12:40-0400 SaO2% (BldA) [Mass fraction] 98 % Sahra Podlogar INFECTIOUS DISEASE TECHNICIAN.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 Work Phone: [facility] 09-10-2023 12:40-0400 Systolic blood pressure 134 mm[Hg] Sahra Podlogar INFECTIOUS DISEASE TECHNICIAN.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 Work Phone: [facility] 05-01-2023 13:43-0400 Body weight 66.22 kg NA Mirza PA-C Work Phone: [facility] 05-01-2023 13:43-0400 Diastolic blood pressure 68 mm[Hg] NA Mirza PA-C Work Phone: [facility] 05-01-2023 13:43-0400 Heart rate 49 /min NA Mirza PA-C Work Phone: [facility] 05-01-2023 13:43-0400 Respiratory rate 16 /min NA Mirza PA-C Work Phone: [facility] 05-01-2023 13:43-0400 SaO2% (BldA) [Mass fraction] 97 % NA Mirza PA-C Work Phone: [facility] 05-01-2023 13:43-0400 Systolic blood pressure 126 mm[Hg] NA Mirza PA-C Work Phone: [facility] 02-17-2023 13:58-0400 Body weight 66.68 kg Clarice Petersen MD Work Phone: [facility] 02-17-2023 13:58-0400 Diastolic blood pressure 64 mm[Hg] Clarice Petersen MD Work Phone: [facility] 02-17-2023 13:58-0400 Heart rate 74 /min Clarice Petersen MD Work Phone: [facility] 02-17-2023 13:58-0400 SaO2% (BldA) [Mass fraction] 98 % Clarice Petersen MD Work Phone: [facility] 02-17-2023 13:58-0400 Systolic blood pressure 122 mm[Hg] Clarice Petersen MD Work Phone: [facility] 02-05-2023 18:16-0400 Body height 157.48 cm [facility] 02-05-2023 18:16-0400 Body mass index (BMI) [Ratio] 27.1 kg/m2 [facility] 02-05-2023 18:16-0400 Body temperature 96.2 [degF] [facility] 02-05-2023 18:16-0400 Body weight 67.13 kg [facility] 02-05-2023 18:16-0400 Diastolic blood pressure 67 mm[Hg] [facility] 02-05-2023 18:16-0400 Heart rate 92 /min [facility] 02-05-2023 18:16-0400 Respiratory rate 18 /min [facility] 02-05-2023 18:16-0400 SaO2% (BldA) [Mass fraction] 100 % [facility] 02-05-2023 18:16-0400 Systolic blood pressure 133 mm[Hg] [facility] 01-12-2023 07:39-0500 Body temperature 97 [degF] [facility] 01-12-2023 07:39-0500 Diastolic blood pressure 78 mm[Hg] [facility] 01-12-2023 07:39-0500 Heart rate 78 /min [facility] 01-12-2023 07:39-0500 Respiratory rate 16 /min [facility] 01-12-2023 07:39-0500 SaO2% (BldA) [Mass fraction] 99 % [facility] 01-12-2023 07:39-0500 Systolic blood pressure 115 mm[Hg] [facility] 01-12-2023 06:29-0500 Body mass index (BMI) [Ratio] 29.4 kg/m2 [facility] 01-12-2023 06:29-0500 Body weight 72.9 kg [facility] 12-26-2022 10:25-0500 Body weight 67.13 kg NA Mirza PA-C Work Phone: [facility] 12-26-2022 10:25-0500 Diastolic blood pressure 62 mm[Hg] NA Mirza PA-C Work Phone: [facility] 12-26-2022 10:25-0500 Heart rate 76 /min NA Mirza PA-C Work Phone: [facility] 12-26-2022 10:25-0500 Respiratory rate 16 /min NA Mirza PA-C Work Phone: [facility] 12-26-2022 10:25-0500 SaO2% (BldA) [Mass fraction] 96 % NA Mirza PA-C Work Phone: [facility] 12-26-2022 10:25-0500 Systolic blood pressure 108 mm[Hg] NA Mirza PA-C Work Phone: [facility] 08-08-2022 11:34-0400 Body weight 67.13 kg NA Mirza PA-C Work Phone: [facility] 08-08-2022 11:34-0400 Diastolic blood pressure 60 mm[Hg] NA Mirza PA-C Work Phone: [facility] 08-08-2022 11:34-0400 Heart rate 74 /min NA Mirza PA-C Work Phone: [facility] 08-08-2022 11:34-0400 Respiratory rate 16 /min NA Mirza PA-C Work Phone: [facility] 08-08-2022 11:34-0400 SaO2% (BldA) [Mass fraction] 96 % NA Mirza PA-C Work Phone: [facility] 08-08-2022 11:34-0400 Systolic blood pressure 116 mm[Hg] NA Mirza PA-C Work Phone: [facility] 06-12-2022 14:59-0400 Body height 154.9 cm Clarice Petersen MD Work Phone: [facility] 06-12-2022 14:59-0400 Body weight 68.31 kg Clarice Petersen MD Work Phone: [facility] 06-12-2022 14:59-0400 Diastolic blood pressure 66 mm[Hg] Clarice Petersen MD Work Phone: [facility] 06-12-2022 14:59-0400 Heart rate 74 /min Clarice Petersen MD Work Phone: [facility] 06-12-2022 14:59-0400 SaO2% (BldA) [Mass fraction] 97 % Clarice Petersen MD Work Phone: [facility] 06-12-2022 14:59-0400 Systolic blood pressure 112 mm[Hg] Clarice Petersen MD Work Phone: [facility] 03-14-2022 08:52-0400 Diastolic blood pressure 64 mm[Hg] Fran Salcido MD Work Phone: [facility] 03-14-2022 08:52-0400 Heart rate 58 /min Fran Salcido MD Work Phone: [facility] 03-14-2022 08:52-0400 Respiratory rate 16 /min Fran Salcido MD Work Phone: [facility] 03-14-2022 08:52-0400 SaO2% (BldA) [Mass fraction] 96 % Fran Salcido MD Work Phone: [facility] 03-14-2022 08:52-0400 Systolic blood pressure 121 mm[Hg] Fran Salcido MD Work Phone: [facility] 03-14-2022 08:34-0400 Body temperature 97.9 [degF] Fran Salcido MD Work Phone: [facility] 03-12-2022 15:12-0400 Body weight 69.85 kg Clarice Petersen MD Work Phone: [facility] 03-12-2022 15:12-0400 Diastolic blood pressure 70 mm[Hg] Clarice Petersen MD Work Phone: [facility] 03-12-2022 15:12-0400 Heart rate 69 /min Clarice Petersen MD Work Phone: [facility] 03-12-2022 15:12-0400 Respiratory rate 16 /min Clarice Petersen MD Work Phone: [facility] 03-12-2022 15:12-0400 SaO2% (BldA) [Mass fraction] 97 % Clarice Petersen MD Work Phone: [facility] 03-12-2022 15:12-0400 Systolic blood pressure 110 mm[Hg] Clarice Petersen MD Work Phone: [facility] 02-28-2022 [id number] Body height 155.6 cm Barbie Ruiz MD Work Phone: [facility] 02-28-2022 [id number] Body weight 70.76 kg Barbie Ruiz MD Work Phone: [facility] 02-28-2022 10:28-0400 Heart rate 67 /min Barbie Ruiz MD Work Phone: [facility] 02-28-2022 10:28-0400 Respiratory rate 14 /min Barbie Ruiz MD Work Phone: [facility] 02-28-2022 10:28-0400 SaO2% (BldA) [Mass fraction] 94 % Barbie Ruiz MD Work Phone: [facility] 02-28-2022 10:250400 Body height 155.6 cm Respiratory Wstr Work Phone: [facility] 02-28-2022 [id number] Body weight 70.76 kg Respiratory Wstr Work Phone: [facility] 02-28-2022 10:250400 Heart rate 67 /min Respiratory Wstr Work Phone: [facility] 02-28-2022 10:250400 Respiratory rate 14 /min Respiratory Wstr Work Phone: [facility] 02-28-2022 10:25-0400 SaO2% (BldA) [Mass fraction] 94 % Respiratory Wstr Work Phone: [facility] Encounters Encounter Date Encounter Type Care Provider Facility Start: 06-21-2025 ambulatory Dennis Claudine Facility :[facility] Start: 06-13-2025 ambulatory Dennis Gladstone Facility :[facility] Start: 06-10-2025 ambulatory Dennis Claudine Facility :[facility] Start: 06-07-2025 End: 06-07-2025 Patient encounter procedure BIM NURSE -[facility] Work Phone: Start: 06-07-2025 End: 06-07-2025 ambulatory No Primary Care Physician -[facility] Start: 05-21-2025 ambulatory Dennis Louielay Facility :[facility] Start: 05-21-[address] Qi Luciano MD -Cardiovascular Services Work Phone: Start: 05-16-2025 End: 05-16-[address] Dao Luciano MD -[facility] Work Phone: Start: 05-16-2025 End: 05-16-[address] Jake Raymond MD Work Phone: -[facility] Start: 05-05-2025 ambulatory Dennis Claudine Facility :[facility] Start: 04-07-2025 End: 04-07-2025 Patient encounter procedure Amanda WILLIS -[facility] Work Phone: Start: 04-07-2025 End: 04-07-2025 ambulatory Alexus Sven DO Work Phone: [facility] Work Phone: Start: 04-06-2025 End: 04-06-2025 Patient encounter procedure ROWAN Madden -[facility] Work Phone: Start: 04-06-2025 End: 04-06-2025 ambulatory Alexus Sven DO Work Phone: [facility] Work Phone: Start: 04-04-2025 ambulatory Rachel Madden Facili ty:[facility] Start: 04-04-2025 Non-patient / Non-visit Dr. Mitch mclean DO -[facility] Start: 03-31-2025 End: 03-31-2025 ambulatory Alexus Sven DO Work Phone: [facility] Work Phone: Start: 03-31-2025 End: 03-31-[address] Dennis Chow MD -Outpatient Bone Densitometry Work Phone: Start: 03-31-2025 End: 03-31-2025 ambulatory Dennis Chow Facility:[facility] Start: 03-28-2025 End: 03-28-2025 Patient encounter procedure ORGAN TEACHER Rachel Madden -Pulmonary Services/Neurology Work Phone: Start: 03-28-2025 End: 03-28-2025 [facility] Start: 03-24-2025 Non-patient / Non-visit Dr. Mitch mclean DO -[facility] Start: 03-24-2025 End: 03-24-2025 ambulatory Alexus Machuca DO Work Phone: [facility] Work Phone: Start: 03-24-2025 End: 03-24-2025 Patient encounter procedure ROWAN Madden -Pulmonary Services/Neurology Work Phone: Start: 03-24-2025 End: 03-24-2025 ambulatory Rachel Madden Facility:[facility] Start: 03-22-2025 End: 03-22-2025 ambulatory Alexus Machuca DO Work Phone: [facility] Work Phone: Start: 03-22-2025 End: 03-22-[address] Dennis Chow MD -Ultrasound [facility] Work Phone: Start: 03-22-2025 End: 03-22-2025 ambulatory Dennis Chow Facility:[facility] Start: 03-17-2025 End: 03-17-2025 ambulatory Alexuszulema Machuca DO Work Phone: [facility] Work Phone: Start: 03-17-2025 End: 03-17-2025 Patient encounter procedure ROWAN Madden -Cat Scan, [facility] Work Phone: Start: 03-16-2025 End: 03-16-[address] Dennis Chow MD -[facility] Work Phone: Start: 03-16-2025 End: 03-17-2025 ambulatory Rachel Madden Facility:[facility] Start: 03-10-2025 End: 03-10-2025 ambulatory Dennis Chow MD Work Phone: [facility] Comment on above: Allied Health Visit (Medication Adherence Outreach ) Start: 03-09-2025 ambulatory Pernellmike Philippe Facility :[facility] Start: 03-09-2025 Non-patient / Non-visit Pernellmike Da Silva fatmata DO -[facility] Start: 03-09-2025 End: 03-09-2025 Admission to same day surgery center Pernellmike Philippe DO -Endoscopy Work Phone: Start: 03-09-2025 End: 03-09-2025 ambulatory No Primary Care Physician Facility:[facility] Start: 02-18-2025 End: 02-18-2025 ambulatory Cristhian Smith DO Work Phone: Hematology/Oncology Comment on above: Monoclonal gammopath y (Primary Dx) Start: 02-18-2025 End: 02-18-2025 Patient encounter procedure Cristhian Smith DO Work Phone: Hematology/Oncology Start: 02-10-2025 End: 02-10-2025 ambulatory No Pcp (Hist) [facility] Comment on above: Allied Health Visit (Medication Adherence Outreach/) Start: 02-08-2025 End: 02-08-2025 ambulatory No Pcp (Hist) [facility] Comment on above: Allied Health Visit (Medication Adherence Outreach/) Start: 02-02-2025 End: 02-02-2025 Patient encounter procedure ROWAN Madden -[facility] Work Phone: Start: 02-02-2025 End: 02-02-2025 ambulatory No Primary Care Physician Facility:[facility] Start: 01-05-2025 End: 01-05-2025 ambulatory Alexus Machuca DO Work Phone: [facility] Work Phone: Start: 01-05-2025 End: 01-05-2025 Patient encounter procedure Pernell Philippe -Laboratory, Specimen Work Phone: Start: 01-05-2025 End: 01-05-2025 ambulatory No Primary Care Physician Facility:[facility] Start: 12-28-2024 End: 12-28-2024 Patient encounter procedure Pernell Philippe -Laboratory Work Phone: Start: 12-28-2024 End: 12-28-2024 Patient encounter procedure Pernell Philippe -[facility] Work Phone: Start: 12-28-2024 End: 12-28-2024 ambulatory Alexus Sven VS Facility:[facility] Start: 12-28-2024 End: 12-28-2024 ambulatory No Primary Care Physician Facility:[facility] Start: 12-17-2024 End: 12-17-2024 [facility] Start: 12-17-2024 End: 12-17-2024 Patient encounter procedure Iraida Camilo [facility] Comment on above: Population Health Na vigation Outreach ([employer] Unknown PCP/) Start: 11-12-2024 End: 11-15-2024 Refill Christie Vetovitz PA-C Work Phone: Orthopaedics Comment on above: Refill Request Start: 11-08-2024 End: 11-08-2024 Refill Christie Vetovitz PA-C Work Phone: Orthopaedics Comment on above: Refill Request Start: 10-18-2024 End: 10-18-[address] Juarez Harris MD -Radiology, [facility] Work Phone: Start: 10-18-2024 End: 10-18-2024 [facility] Start: 09-30-2024 End: 09-30-[address] Juarez Harris MD -Laboratory, Specimen Work Phone: Start: 09-30-2024 End: 09-30-2024 ambulatory [facility] Facility:[facility] Start: 09-10-2024 End: 09-10-2024 ambulatory CRISTHIAN SMITH Facility:[facility] Start: 09-10-2024 End: 09-10-2024 Office outpatient visit 15 minutes Juarez Velasco MD Work Phone: [facility] Comment on above: Sore throat (Primary Dx); Gastroesophageal reflux disease, unspecified whether esophagitis present Start: 08-17-2024 End: 08-17-2024 ambulatory Cristhian Smith DO Work Phone: Hematology/Oncology Comment on above: Monoclonal gammopath y (Primary Dx) Start: 08-17-2024 End: 08-17-2024 Patient encounter procedure Cristhian Smith DO Work Phone: Hematology/Oncology Start: 08-17-2024 End: 04-18-2025 Telephone encounter Cristhian Smith DO Work Phone: Hematology/Oncology Comment on above: Returning Patient's Call Start: 08-10-2024 End: 08-10-2024 Refill M Wali Mirza PA-C Work Phone: [facility] Comment on above: Refill Request Patient appt/questio n Start: 2024 End: 2024 Patient encounter procedure Orville Tavares APRN.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 Work Phone: Hematology/Oncology Start: 2024 End: 2024 ambulatory Orville Tavares INFECTIOUS DISEASE TECHNICIAN.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 Work Phone: Hematology/Oncology Comment on above: Monoclonal gammopath y Start: 08-02-2024 End: 08-02-2024 Telephone encounter Cristhian Smith DO Work Phone: Hematology/Oncology Comment on above: Patient Question Start: 07-29-2024 End: 07-29-2024 ambulatory CRISTHIAN SMITH Facility:[facility] Start: 07-29-2024 End: 07-29-2024 ambulatory CRISTHIAN SMITH Facility:[facility] Start: 07-29-2024 End: 07-29-2024 Subsequent hospital visit by physician Mri [facility] (I-Stat/1.5t) Work Phone: Radiology Comment on above: Monoclonal gammopath y [D47.2] Start: 07-06-2024 End: 07-08-2024 Telephone encounter Sahra Moreno APRN.CNP Work Phone: Family Medicine [place] Comment on above: Results Refill Request Start: 07-05-2024 End: 07-06-2024 Documentation procedure Mammography Coordinator [facility] Department Start: 07-05-2024 End: 07-06-2024 Letter encounter Mammography Coordinator [facility] Department Start: 07-02-2024 End: 07-02-2024 ambulatory HEMANTH CARRANZA Facility:[facility] Start: 07-02-2024 End: 07-02-2024 Subsequent hospital visit by physician Screen Mammo [facility] Mammogram Comment on above: Encounter for screen ing mammogram for breast cancer [Z12.31] Start: 06-30-2024 End: 07-05-2024 ambulatory Hemanth Carranza MD Work Phone: Internal Medicine [place] [phone] Start: 06-24-2024 End: 06-24-2024 Subsequent hospital visit by physician Xr [facility] [place] Lugo Work Phone: Radiology Comment on above: Monoclonal gammopath y [D47.2] Start: 06-24-2024 End: 06-28-2024 ambulatory Cristhian Smith DO Work Phone: Hematology/Oncology Comment on above: Monoclonal gammopath y (Primary Dx) Refill Request Start: 06-24-2024 End: 06-24-2024 Patient encounter procedure Cristhian Smith DO Work Phone: Hematology/Oncology Start: 06-21-2024 Telephone encounter No Pcp ABEL [facility] Medicine [place] Comment on above: Patient Question Start: 06-08-2024 ambulatory Franklin le PA-C Work Phone: Family Medicine [place] Comment on above: Reestablish as your patient Reestablish as patie nt Start: 06-06-2024 Telephone encounter Cristhian hamlin DO Work Phone: Hematology/Oncology Comment on above: Results Start: 06-02-2024 End: 06-02-2024 ambulatory CRISTHIAN SMITH Facility:[facility] Start: 06-02-2024 End: 06-02-2024 ambulatory Cristhian Smith DO Work Phone: Hematology/Oncology Comment on above: Monoclonal gammopath y (Primary Dx); Iron deficiency anemia secondary to inadequate dietary iron intake Start: 06-02-2024 End: 06-02-2024 Patient encounter procedure Cristhian Nathan Luis DO Work Phone: Hematology/Oncology Start: 06-01-2024 Telephone encounter Cristhian hamlin DO Work Phone: Hematology/Oncology Start: 04-21-2024 End: 04-21-2024 ambulatory PELON WINCHESTER Facility:[facility] Start: 04-21-2024 End: 04-21-2024 Patient encounter procedure Pelon Winchester MD Work Phone: General Surgery Comment on above: Multinodular goiter (nontoxic) (Primary Dx) Start: 04-12-2024 End: 04-12-2024 Patient encounter procedure Pelon Winchester MD Work Phone: General Surgery Comment on above: Multinodular goiter (nontoxic) (Primary Dx) Start: 02-23-2024 End: 02-23-2024 Patient encounter procedure Pelon Winchester MD Work Phone: General Surgery Comment on above: Multinodular goiter (nontoxic) (Primary Dx) Start: 02-13-2024 Telephone encounter No Pcp INFECTIOUS DISEASE TECHNICIAN Int ernal Medicine [place] Comment on above: Medication Request Start: 02-12-2024 End: 02-12-2024 ambulatory [facility] Work Phone: Start: 02-12-2024 End: 02-12-2024 Patient encounter procedure [facility]-Radiology, [place] Work Phone: Start: 02-10-2024 End: 02-15-2024 ambulatory CAESAR MISHRA MD Facility:B Start: 02-10-2024 End: 02-14-2024 Outreach Lab CAESAR MISHRA MD [facility] Start: 02-10-2024 End: 02-11-2024 ambulatory CAESAR MISHRA MD Facility:B Start: 02-10-2024 End: 02-10-2024 Patient encounter procedure CAESAR MISHRA MD [facility] Start: 01-31-2024 ambulatory Azul Vega MA [facility] Start: 01-31-2024 Patient encounter procedure Azul Vega MA [facility] Comment on above: Population Health Na vigation Outreach ([facility] Annual Wellness Visit ) Start: 01-14-2024 End: 01-14-2024 ambulatory [facility] Work Phone: Start: 01-14-2024 End: 01-14-2024 Patient encounter procedure [facility] Start: 01-08-2024 End: 01-08-2024 ambulatory [facility] Work Phone: Start: 01-08-2024 End: 01-08-2024 Patient encounter procedure [facility] [place], [facility] Work Phone: Start: 12-31-2023 End: 12-31-2023 Patient encounter procedure [facility] Start: 12-17-2023 Refill Clarice Petersen MD Work Phone: Family Medicine [place] Comment on above: Refill Request Start: 12-15-2023 Telephone encounter Sherie macdonald INFECTIOUS DISEASE TECHNICIAN.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 Work Phone: Pulmonary Medicine Comment on above: Appointment ([facility] Scan) Start: 12-11-2023 Telephone encounter Franklin Mirza PA-C Work Phone: Family Medicine [place] Comment on above: Insurance Authorizat ion Start: 12-06-2023 ambulatory Franklin le PA-C Work Phone: Family Medicine [place] Comment on above: Trulicity prescripti on Start: 10-16-2023 Refill Barbie Ruiz MD Work Phone: Pulmonary Medicine Comment on above: Refill Request Start: 10-14-2023 End: 10-14-2023 Subsequent hospital visit by physician Mri [employer] [facility] (I-Stat/1.5t) Work Phone: Radiology Comment on above: Syncope and collapse [R55] Start: 10-14-2023 End: 10-14-2023 Patient encounter procedure Sherie Melgoza INFECTIOUS DISEASE TECHNICIAN.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 Work Phone: Pulmonary Medicine Comment on above: Encounter for screen ing for lung cancer (Primary Dx); Tobacco use current Start: 09-30-2023 Telephone encounter Franklin Mirza PA-C Work Phone: Family [facility] [place] Start: 09-29-2023 End: 09-29-2023 Patient encounter procedure Franklin Wali Mirza PA-C Work Phone: [facility] [place] Comment on above: Syncope and collapse (Primary Dx); Essential hypertension; Pulmonary HTN (HCC); Chronic obstructive pulmonary disease, unspecified COPD type (HCC); Tobacco abuse; Mixed hyperlipidemia; Type 2 diabetes mellitus with diabetic neuropathy, without long-term current use of insulin ([facility]); Chronic antral gastritis; Gastroesophageal reflux disease without esophagitis; Degeneration of lumbar or lumbosacral intervertebral disc; Dyshidrotic hand dermatitis; Encounter for screening for lung cancer; Vaginal pain; Major depressive disorder, recurrent 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); At risk for polypharmacy; Controlled type 2 diabetes mellitus without complication, without long-term current use of insulin ([facility]) Start: 09-11-2023 ambulatory SAHRA PODLOGAR Facility :[facility] Start: 09-10-2023 ambulatory Clarice Petersen MD Work Phone: Family [facility] [place] Comment on above: Syncope Start: 09-10-2023 End: 09-10-2023 Subsequent hospital visit by physician Xr [facility] [place] Work Phone: Radiology Comment on above: Neck pain [M54.2] Start: 09-10-2023 End: 09-10-2023 Patient encounter procedure Sahra Moreno APRN.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 [facility] Comment on above: Syncope and collapse (Primary Dx); Neck pain; Rib pain Start: 08-08-2023 Refill Franklin Rangel on [employer] Work Phone: [facility] [place] Comment on above: Refill Request Start: 07-29-2023 ambulatory Franklin Rangel on PA-C Work Phone: [facility] [place] Comment on above: Blood pressure meds Start: 07-29-2023 Telephone encounter Clarice Petersen MD [facility] Comment on above: Results Start: 07-28-2023 End: 07-28-2023 Nursing evaluation of patient and report Nurse Card Admin [facility] Work Phone: Cardiology Comment on above: Screening for ischem ic heart disease (Primary Dx) Start: 07-28-2023 End: 07-28-2023 Subsequent hospital visit by physician [facility] Work Phone: Nuclear Medicine Comment on above: Encounter for screen ing for cardiovascular disorders [Z13.6] Start: 07-22-2023 ambulatory Nurse Card Adm in [facility] Work Phone: Cardiology Comment on above: Stress Test Instruct ions for 07/28/23 Start: 07-22-2023 E-mail encounter fro m caregiver Nurse Card Admin [facility] Work Phone: [facility] Start: 06-24-2023 Refill Carlos Dickson MD Work Phone: Orthopaedics Comment on above: Refill Request Start: 05-27-2023 ambulatory Nurse Card Adm in [facility] Work Phone: Cardiology Comment on above: Stress Test Instruct ions for 06/02/23 Start: 05-27-2023 E-mail encounter fro m caregiver Nurse Card Admin [facility] Work Phone: [facility] Start: 05-25-2023 ambulatory Clarice Petersen MD Work Phone: [facility] Comment on above: Blood Pressure Start: 05-19-2023 Refill Clarice Petersen MD Work Phone: [facility] [place] Comment on above: Refill Request Start: 05-01-2023 End: 05-01-2023 Patient encounter procedure Franklin Wali Mirza PA-C Work Phone: [facility] [place] Comment on above: Essential hypertensi on (Primary Dx) Start: 04-28-2023 End: 04-28-2023 Patient encounter procedure Carlos Dickson MD Work Phone: Orthopaedics Comment on above: Shoulder impingement (Primary Dx); Calcific tendonitis of right shoulder; Sternoclavicular joint pain, right Start: 04-18-2023 Refill Clarice Petersen MD Work Phone: [facility] [place] Comment on above: Refill Request Start: 03-27-2023 End: 03-27-2023 Subsequent hospital visit by physician [facility] [place] Work Phone: Radiology Comment on above: Chronic right should er pain [M25.511, G89.29] Start: 03-25-2023 End: 03-25-2023 Subsequent hospital visit by physician Screen Mammo [facility] Mammogram Comment on above: Screening breast exa mination [Z12.39] Start: 03-21-2023 Refill Clarice Petersen MD Work Phone: [facility] [place] Comment on above: Refill Request Start: 02-27-2023 End: 02-27-2023 Subsequent hospital visit by physician [facility] Work Phone: Radiology Comment on above: Elevated lipase [R74 .8] Start: 02-21-2023 Telephone encounter Clarice Petersen MD Work Phone: [facility] [place] Comment on above: Patient Update Start: 02-20-2023 Telephone encounter Clarice Petersen MD Work Phone: [facility] [place] Comment on above: Results Start: 02-17-2023 End: 02-17-2023 Patient encounter procedure Clarice Petersen MD Work Phone: [facility] [place] Comment on above: Laceration of right middle finger without foreign body without damage to nail, subsequent encounter (Primary Dx) Start: 02-05-2023 End: 02-05-2023 [facility] Start: 01-27-2023 Telephone encounter Clarice Petersen MD Work Phone: [facility] Comment on above: Results Start: 01-25-2023 Orders Only Franklin Wali Rangel on [employer] Work Phone: [facility] Comment on above: Elevated blood prote in (Primary Dx); Elevated lipase; Elevated lymphocytes Start: 01-24-2023 Refill Clairce Petersen MD Work Phone: [facility] Comment on above: Refill Request Start: 01-23-2023 End: 01-23-2023 Telemedicine consultation with patient Clarice Petersen MD Work Phone: [facility] Start: 01-23-2023 End: 01-23-2023 Telephone encounter Clarice Petersen MD Work Phone: [facility] Comment on above: Future Appointment ( virtual apt today 01/23/23) Epigastric pain (Yasmin iwona Dx); Major depressive disorder, recurrent 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); Type 2 diabetes mellitus with diabetic neuropathy, without long-term current use of insulin ([facility]); Chronic obstructive pulmonary disease, unspecified COPD type ([facility]); Nausea; Diarrhea, unspecified type Start: 01-12-2023 End: 01-12-2023 Emergency department patient visit [facility] Start: 01-02-2023 ambulatory Franklin Rangel on [employer] Work Phone: [facility] Comment on above: Test results Start: 12-26-2022 End: 12-26-2022 Patient encounter procedure Franklin Wali Mirza [employer] Work Phone: [facility] Comment on above: Essential hypertensi on (Primary Dx); SVT (supraventricular tachycardia) (HCC); PAD (peripheral artery disease) (HCC); Chronic obstructive pulmonary disease, unspecified COPD type (HCC); Pulmonary HTN (HCC); Asthma with COPD (HCC); Tobacco abuse; Mixed hyperlipidemia; Type 2 diabetes mellitus with diabetic neuropathy, without long-term current use of insulin (HCC); Gastroesophageal reflux disease without esophagitis; Chronic antral gastritis; Dysphagia, unspecified type; Osteopenia after menopause; Squamous cell skin cancer, nasal tip; Degeneration of lumbar or lumbosacral intervertebral disc Start: 11-22-2022 Refill Clarice Petersen MD Work Phone: Family Medicine [place] Comment on above: Refill Request Start: 10-25-2022 Refill Clarice Petersen MD Work Phone: Family [facility] [place] Comment on above: Refill Request Start: 09-11-2022 ambulatory Nurse Card Adm in [facility] Work Phone: Cardiology Comment on above: Stress Test Instruct ions Start: 09-11-2022 E-mail encounter jose carlos reid caregiver Nurse Card Admin [facility] Work Phone: [facility] Start: 08-08-2022 End: 08-08-2022 Patient encounter lorenzo Mirza PA-C Work Phone: Family [facility] [place] Comment on above: Chronic obstructive pulmonary disease, unspecified COPD type ([facility]) (Primary Dx); Asthma with COPD ([facility]); Pulmonary HTN ([facility]); Tobacco abuse; Essential hypertension; Mixed hyperlipidemia; PAD (peripheral artery disease) ([facility]); Type 2 diabetes mellitus with diabetic neuropathy, without long-term current use of insulin ([facility]); Gastroesophageal reflux disease, unspecified whether esophagitis present; Lung nodules; Dysphagia, unspecified type; Degeneration of lumbar or lumbosacral intervertebral disc; Back pain, unspecified back location, unspecified back pain laterality, unspecified chronicity; Carpal tunnel 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; Acute pain of right shoulder; Acute pain of left shoulder; Severe episode of recurrent major depressive disorder, without psychotic features ([facility]); Hypercalcemia; Vitamin D deficiency; Need for influenza vaccination; Need for vaccination; Encounter for screening for osteoporosis; Encounter for screening for cardiovascular disorders; Chest pain, unspecified type; SVT (supraventricular tachycardia) ([facility]); Palpitations; Medicare annual wellness visit, initial Start: 07-05-2022 Refill Clarice Petersen MD Work Phone: [facility] [place] Comment on above: Refill Request Start: 06-12-2022 End: 06-12-2022 Patient encounter procedure Clarice Petersen MD Work Phone: [facility] Comment on above: Type 2 diabetes riccardo itus with diabetic neuropathy, without long-term current use of insulin (HCC) (Primary Dx); Renal cyst; Mixed hyperlipidemia; Chronic obstructive pulmonary disease, unspecified COPD type (HCC); Squamous cell skin cancer, nasal tip; Severe episode of recurrent major depressive disorder, without psychotic features (HCC); Screening for HIV (human immunodeficiency virus) Start: 06-10-2022 End: 06-10-2022 Subsequent hospital visit by physician Xr [facility] [place] Work Phone: Radiology Comment on above: Acute pain of left s houlder [M25.512] Start: 06-03-2022 Telephone encounter Clarice Petersen MD Work Phone: [facility] Comment on above: Patient Question; Or ders Start: 05-24-2022 End: 05-24-2022 Patient encounter procedure Clarice Petersen MD Work Phone: [facility] Comment on above: Acute pain of left s houlder (Primary Dx); Recurrent major depression in partial remission ([facility]) Start: 05-03-2022 Refill Clarice Petersen MD Work Phone: [facility] Comment on above: Refill Request Start: 03-19-2022 ambulatory Clarice Petersen MD Work Phone: [facility] Comment on above: Blood sugars Start: 03-19-2022 End: 03-19-2022 [facility] Start: 03-14-2022 End: 03-14-2022 Subsequent hospital visit by physician Fran Salcido MD Work Phone: [place] [facility] Comment on above: History of gastric p olyp [Z87.19] Start: 03-13-2022 Telephone encounter Clarice Petersen MD Work Phone: [facility] Comment on above: Orders Start: 03-13-2022 End: 03-13-2022 Subsequent hospital visit by physician Screen Mammo [facility] Mammogram Comment on above: Canceled (Pt cx: Res cheduled) Start: 03-12-2022 End: 03-12-2022 Patient encounter procedure Clarice Petersen MD Work Phone: [facility] [place] Comment on above: Type 2 diabetes riccardo itus with diabetic neuropathy, without long-term current use of insulin (HCC) (Primary Dx); Mixed hyperlipidemia; Pulmonary HTN (HCC); Hyperkalemia; Screening breast examination Start: 03-06-2022 Refill Clarice Petersen MD Work Phone: [facility] [place] Comment on above: Refill Request Start: 02-28-2022 End: 02-28-2022 ambulatory Respiratory Therapist [facility] Work Phone: Pulmonary Medicine Comment on above: Spirometry Start: 02-28-2022 End: 02-28-2022 Patient encounter procedure Respiratory Therapist [facility] Work Phone: [facility] Comment on above: Mild persistent asth ma without complication (Primary Dx); Lung nodules; Cigarette smoker; Gastroesophageal reflux disease, unspecified whether esophagitis present Start: 02-12-2022 End: 02-12-2022 Patient encounter procedure Mason Smith MD Work Phone: Ophthalmology Comment on above: Type 2 diabetes riccardo itus without retinopathy (HCC) (Primary Dx); Type 2 diabetes mellitus with peripheral neuropathy (HCC); Combined form of age-related cataract, both eyes; Asteroid hyalosis of left eye; Hypertensive retinopathy, bilateral; Lesion of right lower eyelid Start: 02-06-2022 End: 02-06-2022 Subsequent hospital visit by physician [facility] Work Phone: Radiology Comment on above: Renal cyst [N28.1] Start: 02-05-2022 Refill Clarice Petersen MD Work Phone: [facility] [place] Comment on above: Refill Request Start: 02-04-2022 Telephone encounter Clarice Petersen MD Work Phone: [facility] [place] Comment on above: Results Erroneous encounter- disregard Start: 01-24-2022 End: 01-24-2022 Subsequent hospital visit by physician Xr [facility] Work Phone: Radiology Comment on above: Rib pain [R07.81] Start: 09-19-2021 End: 09-19-2021 Subsequent hospital visit by physician Xr [facility] [place] Work Phone: Radiology Comment on above: Hip injury, initial encounter [S79.919A] Start: 12-24-2017 End: 12-24-2017 Ambulatory [facility] Procedures Date Procedure Procedure Detail Performing Clinician Start: 03-31-2025 Dual energy X-ray absorptiometry Alexus Machuca DO Work Phone: Start: 03-22-2025 Complete ultrasound of kidneys and bladder Alexus Machuca DO Work Phone: Start: 03-22-2025 US scan of thyroid Cristóbal Machuca [facility] Work Phone: Start: 03-17-2025 CT of chest without contrast Alexus Machuca [facility] Work Phone: Start: 01-05-2025 Lactoferrin measurement Alexus aMchuca DO Work Phone: Start: 12-28-2024 Albumin/Globulin ratio Alexus [facility] Work Phone: Start: 12-28-2024 Alternaria alternata RAST Alexus Sven DO Work Phone: Start: 12-28-2024 Antibody measurement Arash [facility] Work Phone: Comment on above: The atypical pANCA p attern has been observed in asignificant percentage of patients with ulcerative colitis,primary sclerosing cholangitis and autoimmune hepatitis. Start: 12-28-2024 Antibody to centrome re measurement Alexus Bloomer DO Work Phone: Comment on above: Previous reported re sult: TNP AIEdited by: BIA on 01/03/25:0907 AMENDED REPORT 01/03/25 0907 ANTI-CENT B previously reported as: Test not performed Start: 12-28-2024 Antibody to extracta ble nuclear antigen measurement Alexus Sven DO Work Phone: Comment on above: Previous reported re sult: TNP AIEdited by: INFCE on 01/03/25:0907 AMENDED REPORT 01/03/25 0907 LEMUS Ab previously reported as: Test not performed Start: 12-28-2024 Antibody to SOHEILA-1 measurement Alexus Machuca DO Work Phone: Comment on above: Previous reported re sult: TNP AIEdited by: INFCE on 01/03/25:0907 AMENDED REPORT 01/03/25 0907 ANTI-SOHEILA previously reported as: Test not performed Start: 12-28-2024 Antibody to lupus La protein measurement Alexus Machuca DO Work Phone: Comment on above: Previous reported re sult: TNP AIEdited by: INFCE on 01/03/25:0907 AMENDED REPORT 01/03/25 09 Anti-SS-B previously reported as: Test not performed Start: 12-28-2024 Antibody to SS-A measurement Alexus Machuca DO Work Phone: Comment on above: Previous reported re sult: TNP AIEdited by: INFCE on 01/03/25:0907 AMENDED REPORT 01/03/25 0907 Anti-SS-A previously reported as: Test not performed Start: 12-28-2024 Autoantibody measurement Alexus Machuca DO Work Phone: Comment on above: Previous reported re sult: TNP AIEdited by: INFCE on 01/03/25:0907 AMENDED REPORT 01/03/25 0907 ANTICHROMATIN previously reported as: Test not performed Start: 12-28-2024 Chocolate RAST Alexus Monroynger DO Work Phone: Start: 12-28-2024 Common ragweed RAST Marybeth Monroynger DO Work Phone: Start: 12-28-2024 Endomysial antibody IgA level Alexus Monroynger DO Work Phone: Start: 12-28-2024 Food RAST Alexus Monroy nger DO Work Phone: Start: 12-28-2024 House dust mite (Df) RAST Alexus Machuca DO Work Phone: Start: 12-28-2024 Immunoglobulin M measurement Alexus Machuca DO Work Phone: Start: 12-28-2024 Intrinsic factor ant ibody measurement Alexus Machuca DO Work Phone: Comment on above: Performed at: [facility] [place] [id number] Director: Cleveland Poon PhD, Phone: [phone] at: [employer] [address] [id number] Director: Jerrell Napoles MD, Phone: [phone] Start: 12-28-2024 Measurement of C-ayden ctive protein using high sensitivity technique Alexus Machuca DO Work Phone: Comment on above: C-Reactive Protein ( CRP) provides useful information for thediagnosis, therapy and monitoring of inflammatory processesand associated diseases. For the evaluation of Relative Riskfor Cardiovascular Disease, a High Sensitivity CRP (HSCRP)should be ordered. Start: 12-28-2024 Measurement of renal function Alexus Machuca DO Work Phone: Comment on above: GFR Calc Start: 12-28-2024 Mouse urine proteins RAST Alexus Machuca DO Work Phone: Comment on above: Performed at: [facility] [place] [address] [id number] Director: Cleveland Poon PhD, Phone: [phone] at: [employer] [address] [id number] Director: Jerrell Napoles MD, Phone: [phone] Start: 12-28-2024 Plantain (Serbian) RAST Alexus Machuca DO Work Phone: Start: 12-28-2024 RN INTAKE antibody measurement Alexus Machuca DO Work Phone: Comment on above: Previous reported re sult: TNP AIEdited by: BIA on 01/03/25:0907 AMENDED REPORT 01/03/25 09 RN INTAKE Ab previously reported as: Test not performed Start: 12-28-2024 Shrimp RAST Alexus tyler DO Work Phone: Start: 10-18-2024 X-ray of esophagus w ith double contrast Alexus Machuca DO Work Phone: Start: 09-30-2024 Bacteria identificat ion test Alexus Machuca DO Work Phone: Start: 09-30-2024 Throat culture Alexus Machuca DO Work Phone: Start: 09-10-2024 STREP A MOLECULAR (POC) [facility] Provider Start: 2024 Diagnostic bone crispin ow biopsies & aspirations Orville Tavares INFECTIOUS DISEASE TECHNICIAN.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 Work Phone: Start: 07-29-2024 Mri pelvis w/o & w/contrast material Cristhian Smith DO Work Phone: Start: 04-12-2024 US THYROID BIOPSY RI GHT (POC) SURG USE ONLY Pelon Winchester MD Work Phone: Start: 02-12-2024 Plain x-ray of pelvi s and lower extremity Start: 02-12-2024 Plain X-ray of shoulder Start: 02-12-2024 Radiologic examinati on of knee Start: 02-12-2024 X-ray of lumbar spin e, two or three views Start: 01-08-2024 US scan of thyroid Start: 10-14-2023 Mri brain brain stem w/o w/contrast material Sahra Moreno INFECTIOUS DISEASE TECHNICIAN.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 Work Phone: Start: 09-10-2023 Radex spine cervical 4 or 5 views Sahra Moreno INFECTIOUS DISEASE TECHNICIAN.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 Work Phone: Start: 07-28-2023 Myocardial spect mul tiple studies Franklin Mirza PA-C Work Phone: Start: 04-28-2023 Arthrocentesis aspir &/inj major jt/bursa w/o us Carlos Dickson MD Work Phone: Start: 03-27-2023 Radex shoulder compl ete minimum 2 views M Wali Mirza PA-C Work Phone: Start: 03-25-2023 End: 03-25-2023 Mammography Clarice Petersen MD Work Phone: Start: 02-27-2023 End: 02-27-2023 Us abdominal real time w/image limited Clarice Petersen MD Work Phone: Start: 01-12-2023 Plain chest X-ray Start: 08-08-2022 INFLUENZA SEASONAL QUADRIVALENT HIGH DOSE AGE 65+ M Wali Mirza PA-C Work Phone: Start: 06-10-2022 Radex shoulder compl ete minimum 2 views Clarice Petersen MD Work Phone: Start: 06-10-2022 Radex shoulder compl ete minimum 2 views Clarice Petersen MD Work Phone: Start: 03-19-2022 CT of chest Start: 03-13-2022 End: 03-13-2022 Mammography Clarice Petersen MD Work Phone: Start: 02-28-2022 Nitric oxide gas determination Barbie Ruiz MD Work Phone: Start: 02-28-2022 Brncdilat rspse spmt ry pre&post-brncdilat admn Barbie Ruiz MD Work Phone: Start: 02-06-2022 Us retroperitoneal r eal time w/image complete Clarice Petersen MD Work Phone: Start: 01-24-2022 Radiologic exam ches t 2 views Clarice Petersen MD Work Phone: Start: 09-19-2021 Radex hip unilateral with pelvis 2-3 views Damien Stanley APRN.CNP Work Phone: Start: 03-29-2021 Mammography Clarice Cotto MD Work Phone: Start: 12-24-2017 Colonoscopy Clarice Cotto MD Work Phone: Start: 11-10-2000 Cholecystectomy CAESAR MISHRA MD Start: 11-10-1982 Total hysterectomy MARYANA MISHRA MD Cervical arthrodesis by anterior technique CAESAR MISHRA MD Comment on above: 2003 H/O: surgery Hx of squamous c ell carcinoma excision Plan of Treatment Date Care Activity Detail Author Start: 02-05-2033 Urine microalbumin profile [facility] Start: 02-17-2026 End: 02-17-2026 ambulatory 02/17/2026 2:50 PM EDT Visit (SP) Office Hematology/Oncology [address] [place] [id number] Cristhian Smith DO [address] [place] [id number] 1YR OV/LABS 4/3* Hematology/Oncolog y Comment on above: 1YR OV/LABS 4/3* Start: 02-10-2026 End: 02-10-2026 ambulatory 02/10/2026 11:30 AM EDT Results Only [facility] [address] [place] [id number] CBC/CMP/Myeloma labs (no urine) [facility] Comment on above: CBC/CMP/Myeloma labs (no urine) Start: 09-10-2025 BP Controlled (<130/80) BP Controlled (<130/80) [facility] Start: 08-17-2025 BP Controlled (<130/80) BP Controlled (<130/80) [facility] Start: 2025 BP Controlled (<130/80) BP Controlled (<130/80) [facility] Start: 07-11-2025 Influenza vaccination Influenza Vaccine (Season Ended) [facility] Start: 07-02-2025 Screening for malignant neoplasm of breast Mammogram Screening [facility] Start: 06-24-2025 BP Controlled (<130/80) BP Controlled (<130/80) [facility] Start: 06-02-2025 BP Controlled (<130/80) BP Controlled (<130/80) [facility] in Start: 05-16-2025 Evaluation of diagnostic study results [facility] Start: 04-21-2025 BP Controlled (<130/80) BP Controlled (<130/80) [facility] Start: 04-06-2025 Patient referral [facility] Work Phone: Start: 03-31-2025 DXA Bone [Mass/Area] Bone density [facility] Start: 03-24-2025 Measurement of respiratory function [facility] Start: 03-16-2025 Patient referral [facility] Work Phone: Start: 03-09-2025 Colonoscopy w/biopsy single/multiple COLONOSCOPY AND BIOPSY [facility] Start: 03-09-2025 Egd insert guide wire dilator passage esophagus EGD GUIDE WIRE INSERTION [facility] Start: 03-09-2025 Egd transoral biopsy single/multiple EGD BIOPSY SINGLE/MULTIPLE [facility] Start: 03-09-2025 Patient discharge [facility] Start: 02-22-2025 BP Controlled (<130/80) BP Controlled (<130/80) [facility] in Start: 02-18-2025 End: 02-18-2025 ambulatory 02/18/2025 2:30 PM EDT Visit (SP) Office Hematology/Oncology [address] [place] [address] Cristhian Smith DO [address] [place] [address] 6 MO OV/LABS 4/3* Hematology/Oncolog y Comment on above: 6 MO OV/LABS 4/3* Start: 02-10-2025 End: 02-10-2025 ambulatory 02/10/2025 11:00 AM EDT Results Only [facility] [address] [place] [address] CBC/CMP/Myeloma labs/24urine with Mspike* [facility] Comment on above: CBC/CMP/Myeloma labs/24urine with Mspike * Start: 01-11-2025 End: 01-11-2025 Patient encounter procedure [facility] Comment on above: est care - DO NOT CANCEL - ALREADY LUIS EDULED 4 TIMES - UNLESS DR PETERSEN TAKES PATIENT BACK est care - DO NOT CA NCEL - ALREADY RESCHEDULED 4 TIMES - UNLESS DR PETERSEN TAKES PATIENT BACK/ Please update PCP status at appt. Start: 01-05-2025 Giardia Antigen (PORTIA) Giardia Antigen (PORTIA) [facility] Start: 01-05-2025 Ova and Parasites Ova and Parasites [facility] Start: 01-05-2025 [facility] Start: 12-17-2024 End: 12-17-2024 Patient encounter procedure 12/17/2024 11:20 AM EST Office Visit [facility] [address] [place], [place] [phone] PodlogarSahra APRN.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 [address] [place], [place] [phone] est care physical r/s from 08/02/24 [facility] Comment on above: est care physical r/s from 08/02/24 Start: 11-10-2024 Advance Directive Discussion Advance Directive Discussion [facility] Start: 10-14-2024 BP Controlled (<130/80) BP Controlled (<130/80) [facility] Start: 09-29-2024 3 comp foot exam completed Diabetic Foot Exam [facility] Start: 09-29-2024 Annual PCP Team Chronic Disease Visit Annual PCP Team Chronic Disease Visit [facility] Start: 09-29-2024 Diabetic foot examination Diabetic Foot Exam [facility] Start: 09-29-2024 Hepatitis B surface antibody level LDL Cholesterol [facility] Start: 09-10-2024 Annual PCP Team Chronic Disease Visit Annual PCP Team Chronic Disease Visit [facility] Start: 09-01-2024 End: 09-01-2024 Patient encounter procedure 09/01/2024 10:40 AM EDT Office Visit [facility] [address] [place], [place] [phone] Hemanth Carranza MD [address] [place], [place] [phone] est care [facility] Comment on above: est care Start: 08-17-2024 End: 08-17-2024 ambulatory 08/17/2024 4:00 PM EDT Visit (SP) Office Hematology/Oncology [address] [place] [address] Cristhian Smith, DO [address] [place] [address] OV/MRI 07/29/BMBX 08/05* Hematology/Oncolog y Comment on above: OV/MRI 07/29/BMBX 08/05* Start: 2024 End: [facility]: CBC/Troponin/BNP* CBC/TROPONIN/BNP/BMB X/PBSX2* Start: 08-02-2024 End: 08-02-2024 Patient encounter procedure 08/02/2024 12:20 PM EDT Office Visit [facility] Kevin [address] [place] [address] PodlogarSahra APRN.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 [address] [place] [address] [facility] Comment on above: est care Start: 07-29-2024 End: 07-29-2024 Patient encounter procedure Radiology Comment on above: Monoclonal gammopathy [D47.2] Start: 07-11-2024 Influenza [facility] Start: 06-24-2024 End: 06-24-2024 ambulatory 06/24/2024 9:50 AM EDT Visit (SP) Office Hematology/Oncology [address] [place] [address] Cristhian Smith, DO [address] [place] [address] OV/LABS 06/02* Hematology/Oncolog y Comment on above: OV/LABS 06/02* Start: 06-22-2024 End: 06-22-2024 ambulatory 06/22/2024 9:30 AM EDT Visit (SP) Office Hematology/Oncology [address] [place] [address] Cristhian Smith DO [address] [place] [address] OV/LABS 06/02* Hematology/Oncolog y Comment on above: OV/LABS 06/02* Start: 06-02-2024 End: 09-01-2024 [id number] [Mass/volume] in Serum or Plasma [facility] Comment on above: Expected: 06/02/2024, Expires: Start: 06-02-2024 End: 09-01-2024 Ferritin [Mass/volume] in Serum or Plasma [facility] Comment on above: Expected: 06/02/2024, Expires: Start: 06-02-2024 End: 09-01-2024 Iron and Iron binding capacity panel - Serum or Plasma [facility] Comment on above: Expected: 06/02/2024, Expires: Start: 06-02-2024 End: 09-01-2024 MONOCLONAL PROTEIN, SERUM (BLOOD) [facility] Work Phone: Comment on above: Expected: 06/02/2024, Expires: Start: 06-02-2024 End: 09-01-2024 PROTEIN ELECTROPHORESIS SERUM W/INTERP [facility] Comment on above: Expected: 06/02/2024, Expires: Start: 06-02-2024 End: 09-01-2024 SERUM VISCOSITY [facility] Comment on above: Expected: 06/02/2024, Expires: Start: 05-01-2024 ANNUAL PCP TEAM CHRONIC DISEASE VISIT ANNUAL PCP TEAM CHRONIC DISEASE VISIT [facility] Start: 05-01-2024 BP CONTROLLED (<130/80) BP CONTROLLED (<130/80) [facility] Start: 05-01-2024 Hepatitis B surface antibody level LDL CHOLESTEROL [facility] Start: 04-21-2024 End: 04-21-2024 Patient encounter procedure 04/21/2024 2:00 PM EDT Office Visit General Surgery [address] [place] [address] Pelon Winchetser MD [address] [place] [address] Follow up General Surgery Comment on above: Follow up Start: 04-02-2024 Glaucoma screening Dilated Retinal Exam [facility] Start: 04-02-2024 Hepatitis C antibody, confirmatory test DILATED RETINAL EXAM [facility] Start: 03-29-2024 Hemoglobin A1c measurement HbA1C [facility] Start: 03-29-2024 Hemoglobin A1c/Hemoglobin.total in Blood HbA1C [facility] Start: 03-28-2024 BP CONTROLLED (<130/80) BP CONTROLLED (<130/80) [facility] Start: 03-27-2024 3 comp foot exam completed DIABETIC FOOT EXAM [facility] Start: 03-27-2024 ANNUAL PCP TEAM CHRONIC DISEASE VISIT ANNUAL PCP TEAM CHRONIC DISEASE VISIT [facility] Start: 03-27-2024 HIV SCREENING HIV SCREENING [facility] Comment on above: Postponed from 1975 (Declined at t his time) Start: 03-27-2024 Zoledronic acid therapy ALPHA-1 ANTITRYPSIN DEFICIENCY SCREENING [facility] Comment on above: Postponed from 1987 (Declined at t his time) Start: 03-25-2024 Mammography [facility] Start: 03-25-2024 Screening for malignant neoplasm of breast Mammogram Screening [facility] Start: 02-18-2024 ANNUAL PCP TEAM CHRONIC DISEASE VISIT ANNUAL PCP TEAM CHRONIC DISEASE VISIT [facility] Start: 02-18-2024 BP CONTROLLED (<130/80) BP CONTROLLED (<130/80) [facility] Start: 01-24-2024 ANNUAL PCP TEAM CHRONIC DISEASE VISIT ANNUAL PCP TEAM CHRONIC DISEASE VISIT [facility] Start: 12-31-2023 End: 03-31-2024 Lipid 1996 panel - Serum or Plasma LIPID PANEL BASIC Lab Routine Mixed hyperlipidemia Hypertriglyceridemia Expected: 12/31/2023, Expires: 03/31/2024 [facility] Work Phone: Comment on above: Expected: 12/31/2023, Expires: 4 Start: 12-26-2023 ANNUAL PCP TEAM CHRONIC DISEASE VISIT ANNUAL PCP TEAM CHRONIC DISEASE VISIT [facility] Start: 12-26-2023 BP CONTROLLED (<130/80) BP CONTROLLED (<130/80) [facility] Start: 12-26-2023 Hepatitis B screening URINE ALBUMIN:CREATININE RATIO [facility] Start: 12-26-2023 Hepatitis B surface antibody level LDL CHOLESTEROL [facility] Start: 11-10-2023 Advance Directive Discussion Advance Directive Discussion [facility] Start: 10-31-2023 Hemoglobin A1c/Hemoglobin.total in Blood HBA1C [facility] Start: 09-29-2023 End: 12-29-2023 Hemoglobin A1c in Blood [facility] Work Phone: Comment on above: Expected: 09/29/2023, Expires: 4 Start: 09-29-2023 End: 12-29-2023 Lipid 1996 panel - Serum or Plasma [facility] Work Phone: Comment on above: Expected: 09/29/2023, Expires: 4 Start: 09-19-2023 Shingrix Vaccine (2 of 2) Shingrix Vaccine (2 of 2) [facility] Start: 08-08-2023 ANNUAL PCP TEAM CHRONIC DISEASE VISIT ANNUAL PCP TEAM CHRONIC DISEASE VISIT [facility] Start: 08-08-2023 BP CONTROLLED (<130/80) BP CONTROLLED (<130/80) [facility] Start: 08-08-2023 Pneumococcal Vaccine: 50+ (2 of 2 - PCV) Pneumococcal Vaccine: 50+ (2 of 2 - PCV) [facility] Start: 08-08-2023 Pneumococcal Vaccine: 65+ (2 - PCV) Pneumococcal Vaccine: 65+ (2 - PCV) [facility] Start: 08-08-2023 Pneumococcal Vaccine: 65+ (2 of 2 - PCV) Pneumococcal Vaccine: 65+ (2 of 2 - PCV) [facility] Start: 08-08-2023 PNEUMOCOCCAL: 65+ (2 - PCV) PNEUMOCOCCAL: 65+ (2 - PCV) [facility] Start: 08-08-2023 SHINGRIX VACCINE (1 of 2) SHINGRIX VACCINE (1 of 2) [facility] Comment on above: Postponed from 2007 (Insurance Cov erage) Start: 07-11-2023 Influenza vaccination [facility] Start: 06-25-2023 Hemoglobin A1c/Hemoglobin.total in Blood HBA1C [facility] Start: 06-12-2023 ANNUAL PCP TEAM CHRONIC DISEASE VISIT ANNUAL PCP TEAM CHRONIC DISEASE VISIT [facility] Start: 05-24-2023 ANNUAL PCP TEAM CHRONIC DISEASE VISIT ANNUAL PCP TEAM CHRONIC DISEASE VISIT [facility] Start: 04-09-2023 Hepatitis C antibody, confirmatory test DILATED RETINAL EXAM [facility] Comment on above: Postponed from 02/12/2023 (Currently [place] eduled) Start: 03-13-2023 Mammography MAMMOGRAM [facility] Start: 03-12-2023 ANNUAL PCP TEAM CHRONIC DISEASE VISIT ANNUAL PCP TEAM CHRONIC DISEASE VISIT [facility] Start: 02-12-2023 Hepatitis C antibody, confirmatory test DILATED RETINAL EXAM [facility] Start: 01-27-2023 End: 03-29-2023 Calcium.ionized [Moles/volume] in Blood CALCIUM IONIZED BLOOD Lab Routine Hypercalcemia Elevated lipase Expected: 01/27/2023, Expires: 03/29/2023 [facility] Work Phone: Comment on above: Expected: 01/27/2023, Expires: 3 Start: 01-27-2023 End: 03-29-2023 Lipase [Enzymatic activity/volume] in Serum or Plasma LIPASE BLD Lab Routine Hypercalcemia Elevated lipase Expected: 01/27/2023, Expires: 03/29/2023 [facility] Work Phone: Comment on above: Expected: 01/27/2023, Expires: 3 Start: 01-25-2023 End: 03-27-2023 CBC W Auto Differential panel - Blood CBC + DIFF Lab Routine Elevated lymphocytes Expected: 01/25/2023, Expires: 03/27/2023 [facility] Work Phone: Comment on above: Expected: 01/25/2023, Expires: 3 Start: 01-25-2023 End: 03-27-2023 Comprehensive metabolic 2000 panel - Serum or Plasma COMP METABOLIC PANEL Lab Routine Elevated lipase Expected: 01/25/2023, Expires: 03/27/2023 [facility] Work Phone: Comment on above: Expected: 01/25/2023, Expires: 3 Start: 01-25-2023 End: 03-27-2023 Lipase [Enzymatic activity/volume] in Serum or Plasma LIPASE BLD Lab Routine Elevated lipase Expected: 01/25/2023, Expires: 03/27/2023 [facility] Work Phone: Comment on above: Expected: 01/25/2023, Expires: 3 Start: 01-25-2023 End: 03-27-2023 PROTEIN ELECTROPHORESIS SERUM W/INTERP PROTEIN ELECTROPHORESIS SERUM W/INTERP Lab Routine Elevated blood protein Elevated lymphocytes Expected: 01/25/2023, Expires: 03/27/2023 [facility] Work Phone: Comment on above: Expected: 01/25/2023, Expires: Start: 01-24-2023 3 comp foot exam completed DIABETIC FOOT EXAM [facility] Start: 01-24-2023 ANNUAL PCP TEAM CHRONIC DISEASE VISIT ANNUAL PCP TEAM CHRONIC DISEASE VISIT [facility] Start: 01-24-2023 Hepatitis B screening URINE ALBUMIN:CREATININE RATIO [facility] Start: 01-24-2023 Hepatitis B surface antibody level LDL CHOLESTEROL [facility] Start: 01-23-2023 End: 03-25-2023 CBC W Auto Differential panel - Blood CBC + DIFF Lab Routine Epigastric pain Expected: 01/23/2023, Expires: 03/25/2023 [facility] Work Phone: Comment on above: Expected: 01/23/2023, Expires: 3 Start: 01-23-2023 End: 03-25-2023 Comprehensive metabolic 2000 panel - Serum or Plasma COMP METABOLIC PANEL Lab Routine Epigastric pain Expected: 01/23/2023, Expires: 03/25/2023 [facility] Work Phone: Comment on above: Expected: 01/23/2023, Expires: 3 Start: 01-23-2023 End: 03-25-2023 Lipase [Enzymatic activity/volume] in Serum or Plasma LIPASE BLD Lab Routine Epigastric pain Expected: 01/23/2023, Expires: 03/25/2023 [facility] Work Phone: Comment on above: Expected: 01/23/2023, Expires: 3 Start: 01-12-2023 [facility] Start: 12-26-2022 End: 02-25-2023 Magnesium [Mass/volume] in Serum or Plasma MAGNESIUM BLD Lab Routine Gastroesophageal reflux disease without esophagitis Chronic antral gastritis Dysphagia, unspecified type Expected: 12/26/2022, Expires: 02/25/2023 [facility] Work Phone: Comment on above: Expected: 12/26/2022, Expires: Start: 12-24-2022 Colonoscopy COLONOSCOPY [facility] Start: 12-24-2022 COLORECTAL CANCER SCREENING COLORECTAL CANCER SCREENING [facility] Start: 12-24-2022 Screening for malignant neoplasm of colon [facility] Start: 12-13-2022 End: 02-12-2023 ALBUMIN/CREAT RATIO RND UR ALBUMIN/CREAT RATIO RND UR Lab Routine Type 2 diabetes mellitus with diabetic neuropathy, without long-term current use of insulin ([facility]) Expected: 12/13/2022, Expires: 02/12/2023 [facility] Work Phone: Comment on above: Expected: 12/13/2022, Expires: Start: 12-13-2022 End: 06-12-2023 CBC W Auto Differential panel - Blood CBC + DIFF Lab Routine Type 2 diabetes mellitus with diabetic neuropathy, without long-term current use of insulin (HCC) Expected: 12/13/2022, Expires: 06/12/2023 [facility] Work Phone: Comment on above: Expected: 12/13/2022, Expires: Start: 12-13-2022 End: 06-12-2023 Comprehensive metabolic 2000 panel - Serum or Plasma COMP METABOLIC PANEL Lab Routine Type 2 diabetes mellitus with diabetic neuropathy, without long-term current use of insulin (HCC) Expected: 12/13/2022, Expires: 06/12/2023 [facility] Work Phone: Comment on above: Expected: 12/13/2022, Expires: Start: 12-13-2022 End: 02-12-2023 Hemoglobin A1c in Blood HGB A1C Lab Routine Type 2 diabetes mellitus with diabetic neuropathy, without long-term current use of insulin (HCC) Expected: 12/13/2022, Expires: 02/12/2023 [facility] Work Phone: Comment on above: Expected: 12/13/2022, Expires: 3 Start: 12-13-2022 End: 02-12-2023 HIV 1+2 Ab [Presence] in Serum or Plasma by Immunoassay HIV 1 2 COMBO(AG/AB),WITH REFLEX TO DIFFERENTIATION Lab Routine Screening for HIV (human immunodeficiency virus) Expected: 12/13/2022, Expires: 02/12/2023 [facility] Work Phone: Comment on above: Expected: 12/13/2022, Expires: 3 Start: 12-13-2022 End: 06-12-2023 Lipid 1996 panel - Serum or Plasma LIPID PANEL BASIC Lab Routine Type 2 diabetes mellitus with diabetic neuropathy, without long-term current use of insulin ([facility]) Expected: 12/13/2022, Expires: 06/12/2023 [facility] Work Phone: Comment on above: Expected: 12/13/2022, Expires: 3 Start: 12-11-2022 Hemoglobin A1c/Hemoglobin.total in Blood HBA1C [facility] Start: 11-10-2022 ADVANCE DIRECTIVE DISCUSSION ADVANCE DIRECTIVE DISCUSSION [facility] Start: 08-14-2022 Urine microalbumin profile DTAP,TDAP,TD (2 - Td or Tdap) [facility] Start: 2022 BONE DENSITY BONE DENSITY [facility] Start: 07-11-2022 Influenza vaccination INFLUENZA (#1) [facility] Start: 05-12-2022 End: 07-12-2022 Hemoglobin A1c/Hemoglobin.total in Blood HGB A1C Lab Routine Type 2 diabetes mellitus with diabetic neuropathy, without long-term current use of insulin (HCC) Expected: 05/12/2022, Expires: 07/12/2022 [facility] Work Phone: Comment on above: Expected: 05/12/2022, Expires: 2 Start: 04-26-2022 Hemoglobin A1c/Hemoglobin.total in Blood HBA1C [facility] Start: 03-29-2022 Mammography MAMMOGRAM [facility] Start: 02-18-2022 End: 04-20-2022 POTASSIUM BLD POTASSIUM BLD Lab Routine Hyperkalemia Expected: 02/18/2022, Expires: 04/20/2022 [facility] Work Phone: Comment on above: Expected: 02/18/2022, Expires: 2 Start: 10-02-2021 Hepatitis C antibody, confirmatory test DILATED RETINAL EXAM [facility] Start: 09-20-2020 Influenza vaccination Lung Cancer Screening [facility] Start: 09-20-2020 Screening for malignant neoplasm of lung Lung Cancer Screening [facility] Start: 2017 Hepatitis B Vaccine (1 of 3 - Risk 3-dose series) Hepatitis B Vaccine (1 of 3 - Risk 3-dose series) [facility] Start: 2017 RSV Vaccine (1 - 1-dose 60+ series) RSV Vaccine (1 - 1-dose 60+ series) [facility] Start: 2017 RSV Vaccine (1 - Risk 60-74 years 1-dose series) RSV Vaccine (1 - Risk 60-74 years 1-dose series) [facility] Start: 07-21-2016 FECAL OCCULT BLOOD FECAL OCCULT BLOOD [facility] Start: 07-21-2016 Screening for malignant neoplasm of colon Fecal Occult Blood [facility] Start: 09-16-2013 PNEUMOCOCCAL (2 - PCV) PNEUMOCOCCAL (2 - PCV) [facility] Start: 2007 SHINGRIX VACCINE (1 of 2) SHINGRIX VACCINE (1 of 2) [facility] Start: 2002 COLOGUARD (FIT-DNA) COLOGUARD (FIT-DNA) [facility] Start: [address] COLONOGRAPHY [facility] Start: 2002 Screening for malignant neoplasm of colon [facility] Start: 2002 SIGMOIDOSCOPY SIGMOIDOSCOPY [facility] Start: 1987 Zoledronic acid therapy ALPHA-1 ANTITRYPSIN DEFICIENCY SCREENING [facility] Start: 1976 SHINGRIX VACCINE (1 of 2) SHINGRIX VACCINE (1 of 2) [facility] Start: 1975 Anxiety Screening Anxiety Screening [facility] Start: 1975 BP Controlled (<130/80) BP Controlled (<130/80) [facility] Start: 1975 HIV SCREENING HIV SCREENING [facility] Start: 1962 COVID-19 VACCINE (#1) COVID-19 VACCINE (#1) [facility] Start: 1960 COVID-19 VACCINE (1) COVID-19 VACCINE (1) [facility] Start: 02-02-1956 COVID-19 VACCINE (#1) COVID-19 VACCINE (#1) [facility] BONE MARROW ANALYSIS BONE MARROW ANALYSIS Lab Routine Monoclonal gammopathy 2024 1:07 PM EDT [facility] Work Phone: BONE MARROW CHROMOSO ME ANAL BONE MARROW CHROMOSOME ANAL Lab Routine Monoclonal gammopathy 2024 1:07 PM EDT [facility] Cardiac event recording [facility] Cobalamin (Vitamin B 12) [Mass/volume] in Serum or Plasma [facility] End: 10-09-2024 CT BRAIN WO IVCON CT BRAIN WO IVCON Radiology STAT Syncope and collapse 1 Occurrences starting 09/10/2023 until 10/09/2024 [facility] Work Phone: Comment on above: 1 Occurrences starting 09/10/2023 until 10/09/2024 CT Chest [facility] End: 11-12-2024 CT LUNG SCREEN WO IVCON CT LUNG SCREEN WO IVCON Radiology Routine Encounter for screening for lung cancer Tobacco use current 1 Occurrences starting 10/14/2023 until 11/12/2024 [facility] Work Phone: Comment on above: 1 Occurrences starting 10/14/2023 until 11/12/2024 CYTOLOGY NON-MICROBIOLOGY LAB TECHNICIAN CYTOLOGY NON-GY N Lab Routine Multinodular goiter (nontoxic) Ordered: 04/12/2024 [facility] Work Phone: Comment on above: Ordered: 04/12/2024 DBT Breast - bilater al screening CARLOS EDUARDO SCREENING W MIGUEL Radiology Routine Encounter for screening mammogram for breast cancer 07/02/2024 1:09 PM EDT [facility] Work Phone: End: 07-30-2025 DBT Breast - bilateral screening CARLOS EDUARDO SCREENING W MIGUEL Radiology Routine Encounter for screening mammogram for breast cancer 1 Occurrences starting 06/30/2024 until 07/30/2025 [facility] Work Phone: Comment on above: 1 Occurrences starting 06/30/2024 until 07/30/2025 DNA EXTRACTION BONE MARROW (BUFFY COAT) DNA EXTRACTION BONE MARROW (BUFFY COAT) Lab Routine Monoclonal gammopathy 2024 1:07 PM EDT [facility] DXA Bone [Mass/Area] Bone density [facility] End: 09-07-2023 Dxa bone density study 1/> sites axial skel DXA-AXIAL SKELETON Radiology Routine Encounter for screening for osteoporosis 1 Occurrences starting 08/08/2022 until 09/07/2023 [facility] Work Phone: Comment on above: 1 Occurrences starting 08/08/2022 until 09/07/2023 End: 09-10-2024 ECG COMPLETE ECG COMPLETE ECG Routine Syncope and collapse 1 Occurrences starting 09/10/2023 until 09/10/2024 [facility] Work Phone: Comment on above: 1 Occurrences starting 09/10/2023 until 09/10/2024 FISH FOR PLASMA CELL MYELOMA FISH FOR PLASMA CELL MYELOMA Lab Routine Monoclonal gammopathy 2024 1:07 PM EDT [facility] FLOW CYTOMETRY FOR LEUKEMIA/LYMPHOMA (FCLL) FLOW CYTOMETRY FOR LEUKEMIA/LYMPHOMA (FCLL) Lab Routine Monoclonal gammopathy 2024 1:07 PM EDT [facility] FLOW CYTOMETRY FOR LEUKEMIA/LYMPHOMA (FCLL) PERFORMABLE FLOW CYTOMETRY FOR LEUKEMIA/LYMPHOMA (FCLL) PERFORMABLE Lab Routine Monoclonal gammopathy 2024 1:07 PM EDT [facility] Giardia lamblia anti gen assay [facility] Lipid 1996 panel - Serum or Plasma [facility] MG Breast - bilatera l Screening [facility] MONOCLONAL PROT 24 U R W/INTERP MONOCLONAL PROT 24 UR W/INTERP Lab Routine Monoclonal gammopathy Ordered: 06/02/2024 [facility] Comment on above: Ordered: 06/02/2024 End: 07-28-2025 MR Cervical spine WO and W contrast IV MRI CERVICAL SPINE WO/W IVCON Radiology Routine Monoclonal gammopathy 1 Occurrences starting 06/28/2024 until 07/28/2025 [facility] Work Phone: Comment on above: 1 Occurrences starting 06/28/2024 until 07/28/2025 End: 07-28-2025 MR Lumbar spine WO and W contrast IV MRI LUMBAR SPINE WO/W IVCON Radiology Routine Monoclonal gammopathy 1 Occurrences starting 06/28/2024 until 07/28/2025 [facility] Comment on above: 1 Occurrences starting 06/28/2024 until 07/28/2025 End: 07-28-2025 MR Pelvis WO and W contrast IV MRI PELVIS ORTHO GENERAL WO/W IVCON Radiology Routine Monoclonal gammopathy 1 Occurrences starting 06/28/2024 until 07/28/2025 [facility] Comment on above: 1 Occurrences starting 06/28/2024 until 07/28/2025 End: 07-28-2025 MR Thoracic spine WO and W contrast IV MRI THORACIC SPINE WO/W IVCON Radiology Routine Monoclonal gammopathy 1 Occurrences starting 06/28/2024 until 07/28/2025 [facility] Comment on above: 1 Occurrences starting 06/28/2024 until 07/28/2025 NM CARDIAC PERF STRESS/PHARM NM CARDIAC PERF STRESS/PHARM Radiology Routine Encounter for screening for cardiovascular disorders Chest pain, unspecified type Ordered: 08/08/2022 [facility] Work Phone: Comment on above: Ordered: 08/08/2022 NM Heart Views W str ess and W radionuclide IV [facility] OUTSIDE VENDOR CARDI AC OUTPATIENT EXTENDED RHYTHM RECORDING (WITHOUT TELEMETRY) OUTSIDE VENDOR CARDIAC OUTPATIENT EXTENDED RHYTHM RECORDING (WITHOUT TELEMETRY) Holter Routine SVT (supraventricular tachycardia) (HCC) Palpitations Ordered: 08/08/2022 [facility] Work Phone: Comment on above: Ordered: 08/08/2022 Ova OR parasites identification [facility] Patient Education [facility] Work Phone: Patient referral [facility] Work Phone: PROT ELEC UR 24HR W/ M SPIKE (P) PROT ELEC UR 24HR W/M SPIKE (P) Lab Routine Monoclonal gammopathy Ordered: 06/02/2024 [facility] Comment on above: Ordered: 06/02/2024 PROT ELEC UR 24HR W/ M SPIKE AND INTERP PROT ELEC UR 24HR W/M SPIKE AND INTERP Lab Routine Monoclonal gammopathy Ordered: 06/02/2024 [facility] Comment on above: Ordered: 06/02/2024 Protein [Mass/time] in 24 hour Urine PROTEIN, 24 HOUR URINE Lab Routine Monoclonal gammopathy Ordered: 06/02/2024 [facility] Comment on above: Ordered: 06/02/2024 End: 04-11-2023 Screening mammography bi 2-view breast inc cad CARLOS EDUARDO SCREENING Radiology Routine Screening breast examination 1 Occurrences starting 03/12/2022 until 04/11/2023 [facility] Work Phone: Comment on above: 1 Occurrences starting 03/12/2022 until 04/11/2023 End: 04-12-2023 Screening mammography bi 2-view breast inc cad CARLOS EDUARDO SCREENING Radiology Routine Screening breast examination 1 Occurrences starting 03/13/2022 until 04/12/2023 [facility] Work Phone: Comment on above: 1 Occurrences starting 03/13/2022 until 04/12/2023 SPIROMETRY WITH DILA TOR IF OBSTRUCTED SPIROMETRY WITH DILATOR IF OBSTRUCTED PFT Routine Asthma, unspecified asthma severity, unspecified whether complicated, unspecified whether persistent 02/28/2022 10:19 AM EDT [facility] Work Phone: SURGICAL PATHOLOGY SURGICAL PATH OLOGY Lab Routine Gastroesophageal reflux disease without esophagitis Release Upon Ordering for 1 Occurrences starting 03/14/2022 [facility] Work Phone: Comment on above: Release Upon Ordering for 1 Occurrences starting 03/14/2022 Thyroid stimulating hormone measurement [facility] Tobacco use cessatio n education [facility] Urine microalbumin/creatinine ratio measurement [facility] End: 03-21-2024 US ABD RIGHT UPPER QUADRANT US ABD RIGHT UPPER QUADRANT Radiology Routine Elevated lipase 1 Occurrences starting 02/20/2023 until 03/21/2024 [facility] Work Phone: Comment on above: 1 Occurrences starting 02/20/2023 until 03/21/2024 US Heart [facility] US Kidney - bilatera l and Urinary bladder [facility] Thyroid gland [facility] Vitamin B12 measurement [facility] Vitamin D, 25-hydrox y measurement [facility] End: 07-24-2025 XR Bones Complete Survey Views XR BONE SURVEY ROUTINE Radiology Routine Monoclonal gammopathy 1 Occurrences starting 06/24/2024 until 07/24/2025 [facility] Work Phone: Comment on above: 1 Occurrences starting 06/24/2024 until 07/24/2025 XR Bones Complete Survey Views XR BONE SURVEY ROUTINE Radiology Routine Monoclonal gammopathy 06/24/2024 11:16 AM EDT [facility] End: 06-23-2023 XR SHOULDER GENERAL 3V OR MORE AP/TRUE AP/OTHER LEFT XR SHOULDER GENERAL 3V OR MORE AP/TRUE AP/OTHER LEFT Radiology Routine Acute pain of left shoulder 1 Occurrences starting 05/24/2022 until 06/23/2023 [facility] Work Phone: Comment on above: 1 Occurrences starting 05/24/2022 until 06/23/2023 [facility] Immunizations Immunization Date Immunization Notes Care Provider Edward walters 07-25-2023 influenza (HD-IIV4) vaccine, age 65+ yr, high dose, quadrivalent, PF (FLUZONE HIGH-DOSE) AILYN Mirza PA-C Work Phone: [facility] 07-25-2023 zoster vaccine recombinant NA Hermes MANSFIELD Work Phone: [facility] 07-25-2023 influenza virus vacc ine, unspecified formulation Cristhian Smith DO Work Phone: [facility] 02-05-2023 tetanus toxoid, redu kecia diphtheria toxoid, and acellular pertussis vaccine, adsorbed [facility] 08-08-2022 influenza, high-dose , quadrivalent vaccine (FLUZONE HIGH DOSE QUADRIVALENT) NA Hermes MANSFIELD Work Phone: [facility] 08-08-2022 pneumococcal polysaccharide vaccine, 23 valent NA Hermes MANSFIELD Work Phone: [facility] 08-08-2022 influenza virus vacc ine, unspecified formulation Wstr Work Phone: [facility] 07-17-2021 influenza, injectabl e, quadrivalent, preservative free Clarice Petersen MD Work Phone: [facility] 07-20-2020 influenza, injectabl e, quadrivalent, contains preservative Clarice Petersen MD Work Phone: [facility] Work Phone: 07-20-2020 influenza, injectabl e, quadrivalent, preservative free Clarice Petersen MD Work Phone: [facility] 08-27-2019 influenza, injectabl e, quadrivalent, preservative free Clarice Petersen MD Work Phone: [facility] 08-21-2019 influenza virus vacc ine, unspecified formulation Clarice Petersen MD Work Phone: [facility] 07-31-2018 influenza, injectabl e, quadrivalent, contains preservative Clarice Petersen MD Work Phone: [facility] 07-31-2018 influenza, injectabl e, quadrivalent, preservative free Clarice Petersen MD Work Phone: [facility] 08-24-2017 influenza, injectabl e, quadrivalent, preservative free Alexus Machuca DO Work Phone: [facility] 08-24-2017 influenza, seasonal, injectable Clarice Petersen MD Work Phone: [facility] 07-31-2016 influenza, injectabl e, quadrivalent, contains preservative Clarice Petersen MD Work Phone: [facility] 07-31-2016 influenza, injectabl e, quadrivalent, preservative free Alexus Sven DO Work Phone: [facility] 08-10-2015 influenza, injectabl e, quadrivalent, contains preservative Clarice Petersen MD Work Phone: [facility] Work Phone: 08-10-2015 influenza, injectabl e, quadrivalent, preservative free Alexus Sven DO Work Phone: [facility] 08-01-2014 influenza, injectabl e, quadrivalent, preservative free Alexus Sven DO Work Phone: [facility] 08-01-2014 influenza, seasonal, injectable Clarice Petersen MD Work Phone: [facility] 10-27-2013 influenza virus vacc ine, unspecified formulation Clarice Petersen MD Work Phone: [facility] Work Phone: 09-16-2012 pneumococcal polysaccharide vaccine, 23 valent Clarice Petersen MD Work Phone: [facility] 08-14-2012 tetanus toxoid, redu kecia diphtheria toxoid, and acellular pertussis vaccine, adsorbed Clarice Petersen MD Work Phone: [facility] Payers Date Payer Category Payer Self-pay [id number] 2023 Medicare (Managed Care) MELINDA BRAUN [id number] 2023 Private Health Insurance [facility] [id number] 2023 Unknown [id number] 2022 Medicaid [id number] 2022 Medicare [id number] 2017 Medicaid [employer] [id number] 2017-[facility] [phone] [address] [place] [address] Medicaid [id number] 2017 Medicaid [id number] 2012 Medicaid [id number] 2012 Unknown SELF PAY INSURANCE [id number] 1957 Unknown [id number]. 627 1957 Unknown [id number] 2.16.840.1.527534.3.579.2. 627 Unknown [id number] 2.16.840.1.217375.3.579.2. 462 Unknown [id number] 2.16.840.1.848095.3.579.2. 462 Unknown [id number] 2.16840.1.244978.3.579.2. 462 Unknown [id number] 2.16.840.1.334771.3.579.2. 462 Unknown [id number] 2.16.840.1.133536.3.579.2. 462 Unknown [id number] 2.16.840.1.273748.3.579.2. 462 Unknown [id number] 2.16840.1.915341.3.579.2. 462 Unknown [id number] 2.16840.1.196849.3.579.2. 462 Unknown [id number] 2.840.1.801986.3.579.2. 462 Unknown [id number] 2.16840.1.867751.3.579.2. 462 Unknown [id number] 2.840.1.256131.3.579.2. 462 Unknown [id number] 2.840.1.106008.3.579.2. 462 Unknown [id number] 2.840.1.257043.3.579.2. 462 Unknown [id number] 2.840.1.569321.3.579.2. 462 Unknown [id number] 2.16840.1.022037.3.579.2. 462 Unknown [id number] 2.840.1.058725.3.579.2. 462 Unknown [id number] 2.16840.1.709960.3.579.2. 462 Unknown [id number] 2.16840.1.772255.3.579.2. 462 Unknown [id number] 2.16840.1.003122.3.579.2. 462 Unknown [id number] 2.16.840.1.605034.3.579.2. 462 Unknown [id number] 2.16840.1.328676.3.579.2. 462 Unknown [id number] 2.16.840.1.130341.3.579.2. 462 Unknown [id number] 2.16.840.1.307172.3.579.2. 462 Unknown [id number] 2.16.840.1.736311.3.579.2. 462 Unknown [id number] 2.16.840.1.870638.3.579.2. 462 Social History Date Type Detail Facility Start: 06-20-2016 End: 05-16-2025 Tobacco smoking status NHIS Smokes tobacco daily [facility] Work Phone: Start: 1975 History of tobacco use Cigarette Smo ker [facility] Work Phone: Start: 06-20-2016 End: 03-19-2023 Cigarettes smoked current (pack per day) - Reported 0.5 [facility] Start: 06-20-2016 End: 10-14-2023 Tobacco use and exposure Smokeless tobacco non-user [facility] Work Phone: Start: 01-24-2022 End: 01-28-2022 Alcohol intake Lifetime non-drinker (finding) [facility] Start: 10-29-2021 End: 01-23-2023 History SDOH Alcohol Frequency 1 [facility] Start: 05-21-2016 Tobacco Comment As of 05/21/16 , Quit . Relapse after fall and closed head injury/concussion. [facility] Start: 1955 Sex Assigned At Female C [facility] Start: 01-20-2022 End: 01-30-2022 Exposure to SARS-CoV-2 (event) Unable to assess [facility] Work Phone: Start: 02-28-2022 End: 08-08-2022 Tobacco Comment Former one ppd smoker [facility] Start: 01-14-2022 End: 08-08-2022 Exposure to SARS-CoV-2 (event) Not sure [facility] Start: 09-18-2020 End: 02-05-2023 Tobacco smoking status NHIS Unknown if ever smoked [facility] Start: 05-15-2018 None [facility] Start: 05-15-2018 Alone Kevin Clay [facility] Start: 06-10-2018 Cigarettes Kevin Co [facility] Start: 06-11-2022 History SDOH Social Connections Phone 3 [facility] Start: 06-11-2022 End: 01-23-2023 History SDOH Social Connections Membership 2 [facility] Start: 06-11-2022 End: 01-23-2023 History SDOH Social Connections Living 5 [facility] Start: 06-11-2022 End: 01-23-2023 History SDOH Physical Activity DPW 0 [facility] Start: 01-23-2023 History SDOH Financial 4 [facility] Start: 01-23-2023 End: 03-19-2023 Social connection and isolation panel [facility] Do you belong to any clubs or organizations such as hinduism groups, unions, fraternal or athletic groups, or school groups? No [facility] Are you now , , , , never or living with a partner? [facility] How often to you hav e a drink containing alcohol? Never [facility] How many standard drinks containing alcohol do you have on a typical day? Patient does not drink [facility] How hard is it for y ou to pay for the very basics like food, housing, medical care, and heating Not very hard [facility] Do you feel stress - tense, restless, nervous, or anxious, or unable to sleep at night because your mind is troubled all the time - these days [OSQ] Not at all [facility] (I/We) worried whechai er (my/our) food would run out before (I/we) got money to buy more. Sometimes true [facility] The food that (I/we) bought just didn't last, and (I/we) didn't have money to get more. Never true [facility] Start: 12-21-2019 Gender identity Identifies as female gender (finding) [facility] Start: 12-21-2019 Sexual orientation Heterosexual (jorge alberto brenner) [facility] Start: 02-10-2024 Tobacco smoking status Heavy t obacco smoker (finding) [facility] Start: 04-21-2024 End: 08-17-2024 Alcohol intake Ex-drinker (finding) [facility] How hard is it for y ou to pay for the very basics like food, housing, medical care, and heating Somewhat hard [facility] Do you feel stress - tense, restless, nervous, or anxious, or unable to sleep at night because your mind is troubled all the time - these days [OSQ] Only a little [facility] (I/We) worried wheth er (my/our) food would run out before (I/we) got money to buy more. Often true [facility] Start: 09-19-2021 Alcoholic beverage intake Current drinker of alcohol (finding) [facility] Start: 11-23-2015 Alcohol Comment Rarely. [facility] Start: 01-20-2025 Sex Female (finding) [facility] NEGATED: Highlighted row Not [facility] Medical Equipment Procedure Code Equipment Code Equipment Original Text Equipment Identifier Dates [id number], [id number], [id number], [id number] Start: 01-10-2021 End: 10-16-2023 Comment on above: Test blood sugar(s) 3 times daily. Dx: Type 2 DM - Controlled E11.9 Insulin: No: True Matrix Test blood sugar(s) 3 times daily. Dx: Type 2 DM - Controlled E11.9 Insulin: No Test blood sugar(s) 3 times daily. Dx: Type 2 DM - Controlled E11.9 Insulin: No True matrix Goals Date Patient Goal Desired Activity /State Functional Status Date Assessment Result Facility 05-25-2015 Are you deaf, or do you have serious difficulty hearing No 05/25/2015 11:21 AM Marylu De La Vega RN No [facility] 05-25-2015 Are you blind, or do you have serious difficulty seeing, even when wearing glasses Yes 05/25/2015 11:21 AM Marylu De La Vega RN Yes [facility] 05-25-2015 Do you have serious difficulty walking or climbing stairs Yes 05/25/2015 11:21 AM Marylu De La Vega RN Yes [facility] 05-25-2015 Do you have difficul ty dressing or bathing No 05/25/2015 11:21 AM Mraylu De La Vega RN No [facility] 05-25-2015 Because of a physica l, mental, or emotional condition, do you have difficulty doing errands alone such as visiting a physician's office or shopping No 05/25/2015 11:21 AM EDT Marylu Lorenz RN No [facility] Mental Status Date Assessment Result Facility 03-09-2025 Cognitive function Voice/Name [facility] Work Phone: 01-12-2023 Cognitive function Voice/Name [facility] Work Phone: 05-25-2015 Because of a physica l, mental, or emotional condition, do you have serious difficulty concentrating, remembering, or making decisions Yes 05/25/2015 11:21 AM EDT Marylu Lorenz RN Yes [facility] Clinical Notes 04-20-2019 to 03-23-2025 Bernice Sims, [facility] - 03/10/2025 8:51 AM EDT Note Date & Type Note Facility 03-23-2025 Radiology Diagnostic study note [facility] Imaging Services [address] [place] [address] [id number] Thyroid MR#: [id number] Acct: [id number] Name: ЮЛИЯ PRASAD Rep #: [id number] : 1955 F 69 From: Papa Carrero MD PCP: Dr. Dennis Chow MD Status: REG CLI Study:Thyroid Date of Exam: 03/22/25 Exam# [id number] Ordering Dr: Dennis Chow MD PROCEDURE: THYROID 03/22/2025 REASON FOR EXAM: NODULE FOLLOW UP TECHNIQUE: High-frequency thyroid ultrasound, including grayscale and color-flow images. REFERENCE LINKS: TI-RADS Chart: [email or web address] TI-RADS Calculator Tool with Reference Images: [email or web address]/ COMPARISON: Comparison is made with prior study dated January 08, 2024. FINDINGS: Right thyroid lobe size: 3.8 cm x 1.9 cm x 2.5 cm Left thyroid lobe size: 4.2 cm x 1.4 cm x 2.5 cm Isthmus: 0.31 cm Background parenchymal echotexture is homogeneous. Nodules: . Lobe: Right, Location: Mid portion of the kidney, Size: 1.5 cm x 1.2 cm x 1 point 0 cm, Stability: Stable Composition: Mixed cystic and solid (+1) Echogenicity: Hypoechoic (+2) Margin: Ill-defined (+0) Shape: Wider than tall (+0) Echogenic Foci: None (+0) TI-RADS: <2 = TR 1 * 2 = TR 2 * 3 = TR 3 * 4-6 = TR 4 * >6 = TR 5 . Lobe: Left, Location: Lateral inferior pole, Size: 5 mm x 4 mm x 5 mm cm, Stability: Stable Composition: Cystic or mostly cystic (+0) Echogenicity: Anechoic (+0) Margin: Smooth (+0) Shape: Wider than tall (+0) Echogenic Foci: None (+0) TI-RADS: <2 = TR 1 * 2 = TR 2 * 3 = TR 3 * 4-6 = TR 4 * >6 = TR 5 US/Thyroid IMPRESSION: Stable examination. RECOMMENDATION: Based on most suspicious nodule. Nodule size = largest diameter Only evaluate nodule if =>5 mm. Growth > 20% in 2 dimensions = worsening. Follow up to 4 nodules. Recommend biopsy for no more than 2 nodules. Reading Location: [facility] CC: Dr. Dennis Chow MD ~ Promotional Demonstrator: Signed [facility] 03-23-2025 Radiology Diagnostic study note [facility] Imaging Services [address] [place], [place] [id number] Kidney and Bladder MR#: [id number] Acct: [id number] Name: ЮЛИЯ PRASAD Rep #: [id number] : 1955 F 69 From: Papa Carrero MD PCP: Dr. Dennis Chow MD Status: [facility] CLI Study:Kidney and Bladder Date of Exam: 0 03/22/25 Exam# [id number] Ordering Dr: Dennis Chow MD PROCEDURE: KIDNEY AND BLADDER 03/22/2025 REASON FOR EXAM: LEFT RENAL CYST TECHNIQUE: Bilateral renal ultrasound. COMPARISON: None FINDINGS: RIGHT Kidney Size: 11.2 cm x 5 cm x 5.8 cm Volume: 170 mL Cortical Thickness (if discernible): 1.7 (>6mm is normal) There is a 6 mm x 5 mm x 2 mm intra parenchymal calculus. Extrarenal pelvis. LEFT Kidney Size: 11.2 cm x 4.7 cm x 5.4 cm Volume: 148.4 mL Cortical thickness: 1.8 cm There is a 2.5 cm x 2.8 cm x 2.6 cm cyst in the upper pole. There is a 5 mm x 3 mm x 4 mm nonobstructive intrarenal calculus. Bladder: Prevoid volume: 143.6 postvoid volume: 138.8 US/Kidney and Bladder IMPRESSION: Small bilateral nonobstructive intrarenal calculi. Left renal cyst. Postvoid residual. Reading Location: [id number] CC: Dr. Dennis Chow MD ~ Promotional Demonstrator: Signed [facility] [facility] 03-21-2025 Radiology Diagnostic study note [facility] Imaging Services [address] [place] [id number] Chest without Contrast MR#: [id number] Acct: [id number] Name: ЮЛИЯ PRASAD Rep #: [id number] : 1955 F 69 From: Papa Carrero MD PCP: Dr. Dennis Chow MD Status: REG CLI Study:Chest without Contrast Date of Exam: 03/17/25 Exam# [id number] Ordering Dr: Rachel Madden ORGAN TEACHER-C PROCEDURE: CHEST WITHOUT CONTRAST 03/17/2025 REASON FOR EXAM: MULTIPLE SUB CENTIMETER NODULES TECHNIQUE: Chest CT without contrast. Coronal and Sagittal reconstruction series were provided. One or more dose reduction techniques were used (e.g., Automated exposure control, adjustment of the mA and/or kV according to patient size, use of iterative reconstruction technique RADIATION DOSE SUMMARY: CTDlvol: 8.3 mGy DLP: 277.95 mGycm COMPARISON: Comparison is made with prior study dated March 19, 2022. FINDINGS: Hardware: None Lymph nodes: Small benign-appearing mediastinal lymph nodes. Heart and Vasculature: Coronary artery calcifications are noted. Atheroscleroticcalcifications of the thoracic aorta. Thoracic aorta and pulmonary arteries have normal contours; noncontrast technique limits evaluation. Coronary Artery Calcifications: Present Lungs and Airways: Stable 2 mm calcified granuloma in the lateral aspect of the right upper lobe as seen on axial image number 29. Stable 4.3 mm noncalcified nodule in the posterior medial aspect of the superior segment of the right lower lobe as seen on axial image number 62. Stable 5 mm noncalcified nodule in the subpleural aspectof the right middle lobe as seen on axial image number 74 Pleura: Unremarkable Upper Abdomen: Questionable cyst in the upper pole of the left kidney. Bones: Degenerative changes of the thoracic spine. CT/Chest without Contrast IMPRESSION: Coronary artery calcification (CAC) is is present Stable examination. 12 month follow-up recommended. Reading Location: [id number] CC: Dr. Dennis Chow MD; Rachel Madden NP ~ Promotional Demonstrator: Signed [facility] 03-10-2025 Note HNO ID: [id number] Author: BERNICE SIMS CPhT Service: ? Author Type: Binitrotoluene Operator Type: Progress Notes Filed: 03/10/2025 09:01 Note Text: Patient is identified through a medication adherence outreach initiative based on pharmacy claims data from: [facility] Medication Adherence Category: Statins First Review Attribution Status: Correct Attribution Medication(s) Rosuvastatin 20 mg Medication Status per portal/Epic Reconcile Dispense: Filled on time - On or before next fill date Date Filled (MM/DD): 03/04/25 due 03/11/25 Day Supply: 30 Medication Status per Profile Review: No issues per profile review Patient appropriate for outreach? No Reason patient not appropriate for outreach:Patient filled on time / no adherence concerns to be addressed Bernice Sims CPhT [facility] Based Care Pharmacy Team [facility] 03-10-2025 History of Present illness Narrative Patient is identified through a medication adherence outreach initiative based on pharmacy claims data from: [employer] Medication Adherence Category: Statins First Review Attribution Status: Correct Attribution Medication(s) Rosuvastatin 20 mg Medication Status per portal/Epic Reconcile Dispense: Filled on time - On or before next fill date Date Filled (MM/DD): 03/04/25 due 03/11/25 Day Supply: 30 Medication Status per Profile Review: No issues per profile review Patient appropriate for outreach? No Reason patient not appropriate for outreach:Patient filled on time / no adherence concerns to be addressed Bernice Sims CPhT [facility] Pharmacy Team documented in this encounter [facility] 03-10-2025 Note Patient Outreach ( POJERSON) ЮЛИЯ PRASAD ([id number]) 1955 F Date Time Provider Department 03/10/25 DENNIS CHOW During your visit today, we recorded the following information about you: Bernice Sims CPhT 03/10/2025 9:01 AM Signed Patient is identified through a medication adherence outreach initiative based on pharmacy claims data from: [employer] Medication Adherence Category: Statins First Review Attribution Status: Correct Attribution Medication(s) Rosuvastatin 20 mg Medication Status per portal/Epic Reconcile Dispense: Filled on time - On or before next fill date Date Filled (MM/DD): 03/04/25 due 03/11/25 Day Supply: 30 Medication Status per Profile Review: No issues per profile review Patient appropriate for outreach? No Reason patient not appropriate for outreach:Patient filled on time / no adherence concerns to be addressed Bernice Sims CPhT [facility] Pharmacy Team Allergies As of Date: 03/10/2025 Noted Allergy Reaction METRONIDAZOLE 01/25/2014 10 - Anaphylaxis ADHESIVE 04/28/2013 14 - Other: See Comments Comments: redness with bandaids AUGMENTIN (AMOXICILLIN-POT CLAVUL*01/25/2014 14 - Other: See Comments Comments: Thrush/yeast infection CIPROFLOXACIN 01/25/2014 2 - Rash CLINDAMYCIN 10/23/2016 7 - Swelling Comments: throat swelling PENICILLINS 06/09/2012 5 - Intolerance Comments: Yeast infections PROZAC (FLUOXETINE HCL) 10/26/2013 2 - Rash SULFA DYNE 06/09/2012 2 - Rash Date Reviewed: 02/18/2025 Reviewed by: Cristhian Smith DO - Fully Assessed Reason for Visit: Allied Health Visit [5] Cmt: Medication Adherence Outreach Prescriptions as of 03/10/2025 - ondansetron orally disintegrating (ZOFRAN ODT) 4 mg disintegrating tablet Take 1 tablet by mouth every 8 hours as needed. - metFORMIN (GLUCOPHAGE) 500 mg tablet Take 1 tablet by mouth two times a day with meals. - dulaglutide (TRULICITY) 1.5 mg/0.5 mL pen injector Inject 1.5 mg subcutaneously one time a week. Inject once per week. Discard Pen After - blood sugar diagnostic (ITDatabaseUCH VERIO TEST STRIPS) test strip Test blood sugar(s) 3 times daily. Dx: Type 2 DM - Controlled E11.9 Insulin: No - rosuvastatin (CRESTOR) 20 mg tablet Take 1 tablet by mouth daily at bedtime. - clobetasol (TEMOVATE) 0.05 % cream apply to rash on legs and hands twice daily 5 days a week as needed. Apply twice daily as needed, up to 21 days per month. Avoid application to the face, armpits, groin. - furosemide (LASIX) 20 mg tablet Take 1 tablet by mouth once daily. - pantoprazole DR (PROTONIX) 40 mg tablet Take 1 tablet by mouth once daily. - montelukast (SINGULAIR) 10 mg tablet Take 1 tablet by mouth daily at bedtime. - citalopram (CELEXA) 40 mg tablet Take 1 tablet by mouth once daily. - coenzyme Q10 (COENZYME Q-10) 100 mg cap capsule Take 1 capsule by mouth twice daily. - Cholecalciferol, Vitamin D3, 25 mcg (1,000 unit) cap Take 1 capsule by mouth once daily. - fluticasone-salmeterol (ADVAIR, WIXELA) 250-50 mcg/dose Inhale 1 Puff as instructed twice daily. - blood sugar diagnostic (BLOOD GLUCOSE TEST) test strip Test blood sugar(s) 3 times daily. Dx: Type 2 DM - Controlled E11.9 Insulin: No: True Matrix - Lancets lancets Test blood sugar(s) 3 times daily. Dx: Type 2 DM - Controlled E11.9 Insulin: No True matrix - Blood-Glucose Meter monitoring kit Glucose Meter of Choice - Kit - Dx: Type 2 DM - Controlled E11.9 - COMPOUNDED PRESCRIPTION Tens unit DX: DDD of neck and lumbar spine - aspirin, enteric coated (ASPIRIN, ENTERIC COATED) 81 mg EC tablet Take 81 mg by mouth once daily. - traZODone 100 mg tablet Take 100 mg by mouth daily at bedtime. One or two Problem List As Of Date 03/10/2025 Noted Resolved Hyperlipidemia [E78.5] 03/10/2017 Diverticulitis [K57.92] 11/28/2017 Diabetes mellitus [E11.9] 07/19/2015 Dizziness and giddiness [R42] 08/24/2012 12/05/2017 Neoplasm of uncertain behavior of skin [D48.5] 12/09/2012 11/28/2017 Atypical nevus of back [D22.5] 12/09/2012 Atypical nevus of abdominal wall [D22.5] 12/09/2012 12/05/2017 Actinic keratosis [L57.0] 12/09/2012 Irritated//Inflamed Seborrheic Keratoses [L82.0]12/09/2012 12/05/2017 Actinic skin damage [L57.8] 12/09/2012 Melanocytic nevi of face [D22.30] 12/09/2012 Dermatofibroma of right thigh [D23.71] 12/09/2012 Dermatofibroma of forearm [D23.60] 12/09/2012 Other seborrheic keratosis [L82.1] 12/09/2012 Solar Lentigines [L81.4] 12/09/2012 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/19/2013 GERD (gastroesophageal reflux disease) [K21.9] 05/15/2015 Status post cervical spinal fusion [Z98.1] 05/15/2015 12/05/2017 Depression [F32.A] 05/15/2015 Lung nodules [R91.8] 05/15/2015 03/27/2023 Emphysema of lung (HCC) [J43.9] 05/15/2015 03/26/2021 Hypotension [I95.9] 05/15/2015 07/19/2015 Pill dysphagia [R13.10] 0 (more content not included)... [facility] 03-09-2025 Evaluation note Diagnosis Onset Date Resolution Dysphagia acute March 09 9:24am Nausea & vomiting acute February 102024 9:24am Dysphagia acute March 16, 2025 12:35pm Pulmonary nodules acute March 12:35pm Smoking greater than 30 pack years acute March 16, 2025 12 :35pm Diabetes chronic March 16, 2025 12:35pm Screening for depression noneactive March 16, 2025 12 :35pm Immunization declined noneactive March 16, 2025 12:35pm Thyroid nodule noneactive March 16, 025 12:35pm Establishing care with new doctor, encounter for noneactive March 16, 2025 12 :35pm Vitamin deficiency noneactive March 12:35pm Rash and nonspecific skin eruption noneactive March 16, 2025 12 :35pm Post-menopausal noneactive March 16, 2025 12:35pm Mid back pain on right side noneactive March 16, 2025 12 :35pm Pelvic pain in female noneactive March 16, 2025 12:35pm Screening for breast cancer noneactive March 16, 2025 12 :35pm Cyst of left kidney noneactive March 162024 12:35pm Monoclonal gammopathy noneactive March 16, 2025 12:35pm Asthma noneactive March 16, 2025 12:35pm Pulmonary nodules acute March 10:11am Smoking greater than 30 pack years acute April 06, 2025 10:11am Asthma noneactive April 06, 2025 10:11am Dysphagia acute April 07, 2025 1:19pm Nausea & vomiting acute March 1:19pm Esophageal reflux inactive March 1:19pm Chest pain acute May 16, 2025 2:14pm Heart palpitations acute May 162024 2:14pm Osteoporosis inactive June 07, 2 025 1:23pm [facility] Services Work Phone: [phone]) 630-889204-30-2025 [facility] Medical Records Department [address] [place] [address] History Physical Exam 03/09/25 1111 MR#: [id number] Acct: [id number] Name: ЮЛИЯ PRASAD Rep #: [id number] : 1955 69 From: Pernell Philippe DO PCP: Care Physician,No Primary Status:REG [facility] Location: [place] [address] HPI - General General Date of Admission: 03/09/25 Date of Service: 03/09/25 Chief Complaint: dysphagia HPI Narrative ЮЛИЯ PRASAD, is a 69 F who presents Barium Swallow X-Ray 12.9.24 Normal plain film x-ray examination (barium swallow) of the esophagus. *[facility] established 2.18.25 pt reports that for the past few years she will haves episodes where she will have emesis that is yellow and slimy like snot. Pt reports that she always feels like there is something stuck in her chest. Reports alternating bowel movements and that she has to massage her sides to get her bowels to move. Pt reports that she has had several colonoscopies and EGDs and believes her last scopes were 2-3 years ago; pt reports her mother had colon cancer. Pt reports that she does not have a PCP and would like a referral to one. [facility] Medical History (Updated 03/09/25 @ 11:[address] Gimenez Friend, ) Wears glasses Cancer Fatty liver High cholesterol Restless legs Syncope History of hiatal hernia History of diverticulitis Smoker History of stress test Dysphagia Depression Anxiety Sore throat Home Medications ???Medication ???Instructions ???Recorded ???Last Taken ???Type coenzyme Q10 100 mg capsule (Co 100 mg PO DAILY supplement 6 08/12/19 History Q-10) montelukast 10 mg tablet 10 mg PO QHS allergies 10/06/17 History trazodone 100 mg tablet 100 mg PO QHS sleep 10/06/1703/08 History ondansetron 4 mg disintegrating 4 mg PO Q8H PRN PRN Nausea #10 tab s 04/11/18 03/09/25 Rx tablet cholecalciferol (vitamin D3) 25 1,000 unit PO DAILY 08/12/1903/08 History mcg (1,000 unit) capsule furosemide 20 mg tablet 20 mg PO DAILY 08/12/19 03/08/25 H istory pantoprazole 40 mg tablet,delayed 40 mg PO DAILY 08/12/19 03/08/25 History release albuterol sulfate 90 mcg/actuation 1 inh inhalation ONCE 11/08/24 U nknown History aerosol inhaler famotidine 20 mg tablet 20 mg PO QDAY 11/08/24 03/08/25 Hi story fluticasone 250 mcg-salmeterol 50 1 inh inhalation BID 11/08/24 History mcg/dose blistr powdr for inhalation meloxicam 15 mg tablet 15 mg PO QDAY 11/08/24 03/08/25 Hi story rosuvastatin 20 mg tablet 20 mg PO QDAY 11/08/24 03/08/25 Hi story aspirin 81 mg tablet,delayed 81 mg PO QDAY 02/02/25 03/05/25 Hi story release (Adult Low Dose Aspirin) clobetasol 0.05 % topical cream 1 g topical QDAY 02/02/25 Unknown History dulaglutide 0.75 mg/0.5 mL 1.5 mg subcut MO 02/02/25 02/28/25 History subcutaneous pen injector (Trulicity) fluorouracil 5 % topical cream 1 applic topical BID 02/02/25 Unkn own History metformin 500 mg tablet 500 mg PO BID 02/02/25 03/07/25 Hi story Allergy/AdvReac Type Severity Reaction Status Date / Time ciprofloxacin (From Cipro) Allergy Rash Verified 03/09/25 10:02 ciprofloxacin HCl (From Allergy Rash Verified 03/09/25 10:02 Cipro) clindamycin Allergy throat Verified 03/09/25 10:02 swelling-see comment section fluoxetine HCl (From Prozac) Allergy Rash Verified 03/09/25 10:02 metronidazole Allergy Anaphylaxis Verified 03/09/25 10:02 Penicillins Allergy Rash Verified 03/09/25 10:02 Sulfa (Sulfonamide Allergy Rash Verified 03/09/25 10:02 Antibiotics) adhesive AdvReac redness Verified 03/09/25 10:02 with bandaids amoxicillin trihydrate (From AdvReac thrush/yeast Verified 03/09/25 10:02 Augmentin) infection potassium clavulanate (From AdvReac thrush/yeast Verified 03/09/25 10:02 Augmentin) infection Family History Sister Colon polyps Hypertension Brother Colon polyps Parkinson disease Mother Colon polyps Colon cancer COPD (chronic obstructive pulmonary disease) Father Colon polyps Heart disease Surgical History History of excision of mass (10/13/17) History of esophagogastroduodenoscopy (EGD) History of colonoscopy History of tonsillectomy History of cholecystectomy History of fusion of cervical spine ( 2003) H/O: hysterectomy Social History household members: none current occupational 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 [facility]04-11-2025 NoteHNO ID: [id number] Author: CRISTHIAN SMITH DO Service: ? Author Type: Physician Type: Progress Notes Filed: 02/18/2025 14:49 Note Text: Hematologic problem(s): 1) IgG lambda MGUS. HPI: The patient is a 69-year-old female with a past medical history as outlined below. Establish with new PCP prior to referral here. Had lab work done through [facility] that showed an increase in serum globulin level. Protein electrophoresis was ordered and demonstrated a faint band in the gamma region suspicious for monoclonal gammopathy. Further workup was recommended. Was also found to have low serum iron and iron saturation. Chemistry significant for total serum protein of 8.2 g/dL. Albumin 4.5 g/dL. Serum creatinine 1.03 mg/dL. CBC demonstrated hemoglobin 12.8 g/dL. Total white count and platelet count normal. Spot urine negative for protein by dipstick analysis. Has had mild increase in serum protein in the past. No MP by electrophoresis on 3 occasions here. Per initial office visit: Fatigued. Pain in both tarango bones for about a month. Restless legs at night. Previous bone donor site from left iliac bone to do cervical graft hurts all the time. Bones in feet hurt. They feel weak, feel like feet don't want to work when I stand up. Hands hurt. ANDRES that fluctuates. Most recent EGD 03/14/2022 AG. Report in notes. C-scope 12/2017. Hyperplastic polyp. Was on oral iron years ago. Bad constipation. Presents for ongoing hematologic management. Interim history: Remains fatigued. Aches all over--weather related. 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 Hyperlipidemia Lung nodules PAD (peripheral artery disease) 03/10/2017 02/06/2022 PVR ank/jackson/toe bilat: RIGHT SIDE JITENDRA: 1.19; TBI: 0.84, WNL at rest LEFT SIDE: JITENDRA: 1.19; TBI: 0.96, WNL at rest Pulmonary HTN (HCC) 12/08/2017 mild Squamous cell skin cancer, nasal tip 06/24/2016 Tobacco abuse 03/28/2017 PAST SURGICAL HISTORY Procedure Laterality Date ADDTL NECK SPINE FUSION 09/2004 CHOLECYSTECTOMY 2000 COLONOSCOPY 1982 COLONOSCOPY FLX DX W/COLLJ SPEC WHEN PFRMD 09/01/2012 COLONOSCOPY FLX DX W/COLLJ SPEC WHEN PFRMD Done in [place] unable to obtain COLONOSCOPY FLX DX W/COLLJ SPEC WHEN PFRMD 11/17/2013 Colonoscopy COLONOSCOPY FLX DX W/COLLJ SPEC WHEN PFRMD 12/24/2017 Colonoscopy ESOPHAGOGASTRODUODENOSCOPY TRANSORAL DIAGNOSTIC 06/04/2013 EGD ESOPHAGOGASTRODUODENOSCOPY TRANSORAL DIAGNOSTIC 05/17/2015 EGD ESOPHAGOGASTRODUODENOSCOPY TRANSORAL DIAGNOSTIC 12/24/2017 EGD FNA (FINE NEEDLE ASPIRATION) 04/12/2024 right thyroid HYSTERECTOMY HX 1984 Pelvic pain AND DUB NEUROPLASTY AND/TRANSPOS MEDIAN NRV CARPAL TUNNE Bilateral 08/27/2018 Bilateral carpal tunnel release OOPHORECTOMY PARTIAL/TOTAL UNI/BI 1985 Bilateral PAST SURGICAL HISTORY OF removed tissue nose for SCC PAST SURGICAL HISTORY OF 10/13/2017 Excision nasal mass, Dr Juarez Harris REMOVE TONSIL AND ADENOI UNDER AGE 14 SLING OPER STRES INCONTINENCE 2001 ALLERGIES Allergen Reactions Metronidazole Anaphylaxis Adhesive Other: See Comments redness with bandaids Augmentin [Amoxicil* Other: See Comments Thrush/yeast infection Ciprofloxacin Rash Clindamycin Swelling throat swelling Penicillins Intolerance Yeast infections Prozac [Fluoxetine * Rash Sulfa Dyne Rash Current Outpatient Medications Medication Sig ondansetron orally disintegrating (ZOFRAN ODT) 4 mg disintegrating tablet Take 1 tablet by mouth every 8 hours as needed. metFORMIN (GLUCOPHAGE) 500 mg tablet Take 1 tablet by mouth two times a day with meals. dulaglutide (TRULICITY) 1.5 mg/0.5 mL pen injector Inject 1.5 mg subcutaneously one time a week. Inject once per week. Discard Pen After rosuvastatin (CRESTOR) 20 mg tablet Take 1 tablet by mouth daily at bedtime. clobetasol (TEMOVATE) 0.05 % cream apply to rash on legs and hands twice daily 5 days a week as needed. Apply twice daily as needed, up to 21 days per month. Avoid application to the face, armpits, groin. furosemide (LASIX) 20 mg tablet Take 1 [...] Take 1 capsule by mouth once daily. fluticasone-salmeterol (ADVAIR, WIXELA) 250-50 mcg/dose Inhale 1 Puff as instructed twice daily. aspirin, enteric coated (ASPIRIN, ENTERIC COATED) 81 mg EC tablet Take 81 mg by mouth once daily. traZODone 100 mg tablet Take 100 mg by m (more content not included)...[facility]04-11-2025 History of Present illness Narrative* Cristhian Smith DO - 02/18/2025 2:33 PM EDT Hematologic problem(s): 1) IgG lambda MGUS. HPI: The patient is a 69-year-old female with a past medical history as outlined below. Establish with new PCP prior to referral here. Had lab work done through [facility] that showed an increase in serum globulin level. Protein electrophoresis was ordered and demonstrated a faint band in the gamma region suspicious for monoclonal gammopathy. Further workup was recommended. Was also found to have low serum iron and iron saturation. Chemistry significant for total serum protein of 8.2 g/dL. Albumin 4.5 g/dL. Serum creatinine 1.03 mg/dL. CBC demonstrated hemoglobin 12.8 g/dL. Total white count and platelet count normal. Spot urine negative for protein by dipstick analysis. Has had mild increase in serum protein in the past. No MP by electrophoresis on 3 occasions here. Per initial office visit: Fatigued. Pain in both tarango bones for about a month. Restless legs at night. Previous bone donor site from left iliac bone to do cervical graft hurts all the time. Bones in feet hurt. They feel weak, feel like feet don't want to work when I stand up. Hands hurt. ANDRES that fluctuates. Most recent EGD 03/14/2022 AG. Report in notes. C-scope 12/2017. Hyperplastic polyp. Was on oral iron years ago. Bad constipation. Presents for ongoing hematologic management. Interim history: Remains fatigued. Aches all over--weather related. 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 Hyperlipidemia Lung nodules PAD (peripheral artery disease) 03/10/2017 02/06/2022 PVR ank/jackson/toe bilat: RIGHT SIDE JITENDRA: 1.19; TBI: 0.84, WNL at rest LEFT SIDE: JITENDRA: 1.19; TBI: 0.96, WNL at rest Pulmonary HTN (HCC) 12/08/2017 mild Squamous cell skin cancer, nasal tip 06/24/2016 Tobacco abuse 03/28/2017 PAST SURGICAL HISTORY Procedure Laterality Date ADDTL NECK SPINE FUSION 09/2004 CHOLECYSTECTOMY 2000 COLONOSCOPY 1982 COLONOSCOPY FLX DX W/COLLJ SPEC WHEN PFRMD 09/01/2012 COLONOSCOPY FLX DX W/COLLJ SPEC WHEN PFRMD Done in [place] unable to obtain COLONOSCOPY FLX DX W/COLLJ SPEC WHEN PFRMD 11/17/2013 Colonoscopy COLONOSCOPY FLX DX W/COLLJ SPEC WHEN PFRMD 12/24/2017 Colonoscopy ESOPHAGOGASTRODUODENOSCOPY TRANSORAL DIAGNOSTIC 06/04/2013 EGD ESOPHAGOGASTRODUODENOSCOPY TRANSORAL DIAGNOSTIC 05/17/2015 EGD ESOPHAGOGASTRODUODENOSCOPY TRANSORAL DIAGNOSTIC 12/24/2017 EGD FNA (FINE NEEDLE ASPIRATION) 04/12/2024 right thyroid HYSTERECTOMY HX 1984 Pelvic pain & DUB NEUROPLASTY &/TRANSPOS MEDIAN NRV CARPAL TUNNE Bilateral 08/27/2018 Bilateral carpal tunnel release OOPHORECTOMY PARTIAL/TOTAL UNI/BI 1985 Bilateral PAST SURGICAL HISTORY OF removed tissue nose for SCC PAST SURGICAL HISTORY OF 10/13/2017 Excision nasal mass, Dr Juarez Harris REMOVE TONSIL AND ADENOI UNDER AGE 14 SLING OPER STRES INCONTINENCE 2001 ALLERGIES Allergen Reactions Metronidazole Anaphylaxis Adhesive Other: See Comments redness with bandaids Augmentin [Amoxicil* Other: See Comments Thrush/yeast infection Ciprofloxacin Rash Clindamycin Swelling throat swelling Penicillins Intolerance Yeast infections Prozac [Fluoxetine * Rash Sulfa Dyne Rash Current Outpatient Medications Medication Sig ondansetron orally disintegrating (ZOFRAN ODT) 4 mg disintegrating tablet Take 1 tablet by mouth every 8 hours as needed. metFORMIN (GLUCOPHAGE) 500 mg tablet Take 1 tablet by mouth two times a day with meals. dulaglutide (TRULICITY) 1.5 mg/0.5 mL pen injector Inject 1.5 mg subcutaneously one time a week. Inject once per week. Discard Pen After rosuvastatin (CRESTOR) 20 mg tablet Take 1 tablet by mouth daily at bedtime. clobetasol (TEMOVATE) 0.05 % cream apply to rash on legs and hands twice daily 5 days a week as needed. Apply twice daily as needed, up to 21 days per month. Avoid application to the face, armpits, groin. furosemide (LASIX) 20 mg tablet Take 1 [...] Take 1 capsule by mouth once daily. fluticasone-salmeterol (ADVAIR, WIXELA) 250-50 mcg/dose Inhale 1 Puff as instructed twice daily. aspirin, enteric coated (ASPIRIN, ENTERIC COATED) 81 mg EC tablet Take 81 mg by mouth once daily. traZODone 100 mg tablet Take 100 mg by mouth daily at bedtime. One or two blood sugar diagnostic (ITDatabaseUCH VERIO TEST STRIPS) test strip Test blood sugar(s) 3 times daily. Dx: Type 2 DM - Controlled E11.9 Insulin: No albuterol HFA (PROVENTIL HFA, VENTOLIN HFA) 90 mcg/actuation inhaler Inhale 2 Puffs as instructed every 4 hours as needed for wheezing/shortness of breath. (Patient not taking: Reported on 02/18/2025) citalopram (CELEXA) 40 mg tablet Take 1 tablet by mouth once daily. blood sugar diagnostic (BLOOD GLUCOSE TEST) test strip Test blood sugar(s) 3 times daily. Dx: Type 2 DM - Controlled E11.9 Insulin: No: True Matrix Lancets lancets Test blood sugar(s) 3 times daily. Dx: Type 2 DM - Controlled E11.9 Insulin: No True matrix Blood-Glucose Meter monitoring kit Glucose Meter of Choice - Kit - Dx: Type 2 DM - Controlled E11.9 COMPOUNDED PRESCRIPTION Tens unit DX: DDD of neck and lumbar spine No current facility-administered medications for this visit. Social History Tobacco Use Smoking status: Every Day Current packs/day: 0.50 Average packs/day: 0.5 packs/day for 49.5 years (24.8 ttl pk-yrs) Types: Cigarettes Start date: 1975 Smokeless tobacco: Never Tobacco comments: Former one ppd smoker Vaping Use Vaping status: Never Used Substance Use Topics Alcohol use: Not Currently Drug use: Not Currently Types: Marijuana Family History Problem Relation Age of Onset Colon Polyps Mother COPD Mother Colon Cancer Mother Colon Polyps Father Heart Father Colon Polyps Sister Hypertension Sister Hypertension Sister Hypertension Sister Thyroid Sister Colon Polyps Brother other (Parkinsonism [Other]) Brother Colon Polyps Brother Ischemic Heart Disease Brother Diabetes Maternal Grandfather ROS: Constitutional: No fever. No drenching night sweats. Normal appetite. No unexplained weight loss. Neuro: No recent ERVIN, vertigo, dizziness or imbalance. No symptoms of sensory neuropathy. HEENT: No recent change in voice, vision or hearing. Resp: No cough, wheeze of hemoptysis. No shortness of breath at rest. No ANDRES. CVS: No exertional chest pain, PND or orthopnea. No extremity swelling/edema. No symptoms of claudication. No painful or tender varicose veins. GI: No reflux, n/v, change in bowel habits. No abdominal pain, bloating or distension. No black or bloody stools. : No dysuria or gross hematuria. No symptoms of bladder outlet obstruction. Endo: No hot flashes. No polyuria or polydipsia. No heat or cold intolerance. Derm: No current rash. No history of jaundice. No diffuse pruritis. Heme: No unusual bleeding and unexplained bruising. Psych: Normal mood. PHYSICAL EXAM: Vitals: Blood pressure 146/82, pulse 75, temperature 36.2 C (97.1 F), temperature source Temporal, weight 61.9 kg (136 lb 8 oz), SpO2 99%. Well-appearing and in no acute distress. EYES: Sclerae are anicteric bilaterally. 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 -Serum creatinine improved compared to a year ago. No hypercalcemia. -History of osteopenia. -History Iron deficiency. Intolerant to oral iron in the past. Longstanding PPI use. - Reviewed her most recent labs with her in detail. CBC remains normal. Serum creatinine normal. Calcium mildly elevated but has been so on several occasions in the past. No detectable serum monoclonal protein by immunofixation. Plan: -Reassess MGUS in 12 months. Portions of this documentation were copied and pasted from my previous office visit note dated 08/17/2025 in order to provide a cohesive continuity of the history. The note has been reviewed and edited and updated as necessary. I spent a total of 20 minutes on the date of the service which included preparing to see the patient, [id number] patient care, completing clinical documentation, obtaining and/or reviewing separately obtained history, performing a medically appropriate examination, counseling and educating the pat ient/family/caregiver, communicating with other HCPs (not separately reported), and communicating results to the patient/family/caregiver. Cristhian Smith DO documented in this encounterPromed[facility]04-03-2025 NoteHNO ID: [id number] Author: OLGA GALAN CPhT Service: ? Author Type: Binitrotoluene Operator Type: Progress Notes Filed: 02/10/2025 09:19 Note Text: Patient is identified through a medication adherence outreach initiative based on pharmacy claims data from: [employer] Medication Adherence Category: Diabetes First Review Attribution Status: Correct Attribution Medication(s) Metformin 500 mg Medication Status per portal/Epic Reconcile Dispense: Not filled - Outreach patient Medication Status per Profile Review: No issues per profile review Patient appropriate for outreach? Yes Patient identified by name and Outreach to patient: Left Voicemail/message for return call What was primary intervention? No intervention Olga Galan CPhT [facility] History of Present illness Narrative* Olga Galan CPhT - 02/10/2025 9:07 AM EDT Patient is identified through a medication adherence outreach initiative based on pharmacy claims data from: [employer] Medication Adherence Category: Diabetes First Review Attribution Status: Correct Attribution Medication(s) Metformin 500 mg Medication Status per portal/Epic Reconcile Dispense: Not filled - Outreach patient Medication Status per Profile Review: No issues per profile review Patient appropriate for outreach? Yes Patient identified by name and Outreach to patient: Left Voicemail/message for return call What was primary intervention? No intervention Olga Galan CPhT [facility] Team documented in this encounterPromedica [facility]04-03-2025 NotePatient Outreach (PHPOHE) JAGJITЮЛИЯ Burgess ([id number]) 1955 F Date Time Provider Department 02/10/25 NO PCP (HIST) PHPOHE During your visit today, we recorded the following information about you: Olga Galan CPhT 02/10/2025 9:19 AM Signed Patient is identified through a medication adherence outreach initiative based on pharmacy claims data from: [employer] Medication Adherence Category: Diabetes First Review Attribution Status: Correct Attribution Medication(s) Metformin 500 mg Medication Status per portal/Epic Reconcile Dispense: Not filled - Outreach patient Medication Status per Profile Review: No issues per profile review Patient appropriate for outreach? Yes Patient identified by name and Outreach to patient: Left Voicemail/message for return call What was primary intervention? No intervention Olga Galan CPhT [facility] Team Allergies As of Date: 02/10/2025 Noted Allergy Reaction METRONIDAZOLE 01/25/2014 10 - Anaphylaxis ADHESIVE 04/28/2013 14 - Other: See Comments Comments: redness with bandaids AUGMENTIN (AMOXICILLIN-POT CLAVUL*01/25/2014 14 - Other: See Comments Comments: Thrush/yeast infection CIPROFLOXACIN 01/25/2014 2 - Rash CLINDAMYCIN 10/23/2016 7 - Swelling Comments: throat swelling PENICILLINS 06/09/2012 5 - Intolerance Comments: Yeast infections PROZAC (FLUOXETINE HCL) 10/26/2013 2 - Rash SULFA DYNE 06/09/2012 2 - Rash Date Reviewed: 09/10/2024 Reviewed by: Bobbi Knapp MA - Fully Assessed Reason for Visit: Allied Health Visit [5] Cmt: Medication Adherence Outreach Prescriptions as of 02/10/2025 - ondansetron orally disintegrating (ZOFRAN ODT) 4 mg disintegrating tablet Take 1 tablet by mouth every 8 hours as needed. - metFORMIN (GLUCOPHAGE) 500 mg tablet Take 1 tablet by mouth two times a day with meals. - dulaglutide (TRULICITY) 1.5 mg/0.5 mL pen injector Inject 1.5 mg subcutaneously one time a week. Inject once per week. Discard Pen After - blood sugar diagnostic (ONETOUCH VERIO TEST STRIPS) test strip Test blood sugar(s) 3 times daily. Dx: Type 2 DM - Controlled E11.9 Insulin: No - rosuvastatin (CRESTOR) 20 mg tablet Take 1 tablet by mouth daily at bedtime. - clobetasol (TEMOVATE) 0.05 % cream apply to rash on legs and hands twice daily 5 days a week as needed. Apply twice daily as needed, up to 21 days per month. Avoid application to the face, armpits, groin. - albuterol HFA (PROVENTIL HFA, VENTOLIN HFA) 90 mcg/actuation inhaler Inhale 2 Puffs as instructed every 4 hours as needed for wheezing/shortness of breath. - furosemide (LASIX) 20 mg tablet Take 1 tablet by mouth once daily. - pantoprazole DR (PROTONIX) 40 mg tablet Take 1 tablet by mouth once daily. - montelukast (SINGULAIR) 10 mg tablet Take 1 tablet by mouth daily at bedtime. - citalopram (CELEXA) 40 mg tablet Take 1 tablet by mouth once daily. - coenzyme Q10 (COENZYME Q-10) 100 mg cap capsule Take 1 capsule by mouth twice daily. - Cholecalciferol, Vitamin D3, 25 mcg (1,000 unit) cap Take 1 capsule by mouth once daily. - fluticasone-salmeterol (ADVAIR, WIXELA) 250-50 mcg/dose Inhale 1 Puff as instructed twice daily. - blood sugar diagnostic (BLOOD GLUCOSE TEST) test strip Test blood sugar(s) 3 times daily. Dx: Type 2 DM - Controlled E11. Insulin: No: True Matrix - Lancets lancets Test blood sugar(s) 3 times daily. Dx: Type 2 DM - Controlled E11.9 Insulin: No True matrix - Blood-Glucose Meter monitoring kit Glucose Meter of Choice - Kit - Dx: Type 2 DM - Controlled E11.9 - COMPOUNDED PRESCRIPTION Tens unit DX: DDD of neck and lumbar spine - aspirin, enteric coated (ASPIRIN, ENTERIC COATED) 81 mg EC tablet Take 81 mg by mouth once daily. - traZODone 100 mg tablet Take 100 mg by mouth daily at bedtime. One or two Problem List As Of Date 02/10/2025 Noted Resolved Hyperlipidemia [E78.5] 03/10/2017 Diverticulitis [K57.92] 11/28/2017 Diabetes mellitus [E11.9] 07/19/2015 Dizziness and giddiness [R42] 08/24/2012 12/05/2017 Neoplasm of uncertain behavior of skin [D48.5] 12/09/2012 11/28/2017 Atypical nevus of back [D22.5] 12/09/2012 Atypical nevus of abdominal wall [D22.5] 12/09/2012 12/05/2017 Actinic keratosis [L57.0] 12/09/2012 Irritated//Inflamed Seborrheic Keratoses [L82.0]12/09/2012 12/05/2017 Actinic skin damage [L57.8] 12/09/2012 Melanocytic nevi of face [D22.30] 12/09/2012 Dermatofibroma of right thigh [D23.71] 12/09/2012 Dermatofibroma of forearm [D23.60] 12/09/2012 Other seborrheic keratosis [L82.1] 12/09/2012 Solar Lentigines [L81.4] 12/09/2012 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 Author Type: Binitrotoluene Operator Type: Progress Notes Filed: 02/08/2025 13:10 Note Text: Patient is identified through a medication adherence outreach initiative based on [facility] Medication Adherence Category: Statins First Review Attribution Status: Correct Attribution Medication(s) Rosuvastatin 20 mg Medication Status per portal/Epic Reconcile Dispense: Filled on time - On or before next fill date Date Filled (MM/DD): 02/04 Day Supply: 30 Medication Status per Profile Review: No issues per profile review Patient appropriate for outreach? No Reason patient not appropriate for outreach:Patient filled on time / no adherence concerns to be addressed Olga Galan CPhT [facility]04-[facility] History of Present illness Narrative* Olga Galan CPhT - 02/08/2025 1:07 PM EDT Patient is identified through a medication adherence outreach initiative based on pharmacy claims data from: [employer] Medication Adherence Category: Statins First Review Attribution Status: Correct Attribution Medication(s) Rosuvastatin 20 mg Medication Status per portal/Epic Reconcile Dispense: Filled on time - On or before next fill date Date Filled (MM/DD): 02/04 Day Supply: 30 Medication Status per Profile Review: No issues per profile review Patient appropriate for outreach? No Reason patient not appropriate for outreach:Patient filled on time / no adherence concerns to be addressed Olga Galan CPhT [facility] documented in this encounterPromedica [facility]04-01-2025 NotePatient Outreach (PHPOHE) ЮЛИЯ PRASAD ([id number]) 1955 F Date Time Provider Department 02/08/25 NO PCP (HIST) PHPOHE During your visit today, we recorded the following information about you: Olga Galan CPhT 02/08/2025 1:10 PM Signed Patient is identified through a medication adherence outreach initiative based on pharmacy claims data from: [employer] Medication Adherence Category: Statins First Review Attribution Status: Correct Attribution Medication(s) Rosuvastatin 20 mg Medication Status per portal/Epic Reconcile Dispense: Filled on time - On or before next fill date Date Filled (MM/DD): 02/04 Day Supply: 30 Medication Status per Profile Review: No issues per profile review Patient appropriate for outreach? No Reason patient not appropriate for outreach:Patient filled on time / no adherence concerns to be addressed Olga Galan CPhT [facility] Team Allergies As of Date: 02/08/2025 Noted Allergy Reaction METRONIDAZOLE 01/25/2014 10 - Anaphylaxis ADHESIVE 04/28/2013 14 - Other: See Comments Comments: redness with bandaids AUGMENTIN (AMOXICILLIN-POT CLAVUL*01/25/2014 14 - Other: See Comments Comments: Thrush/yeast infection CIPROFLOXACIN 01/25/2014 2 - Rash CLINDAMYCIN 10/23/2016 7 - Swelling Comments: throat swelling PENICILLINS 06/09/2012 5 - Intolerance Comments: Yeast infections PROZAC (FLUOXETINE HCL) 10/26/2013 2 - Rash SULFA DYNE 06/09/2012 2 - Rash Date Reviewed: 09/10/2024 Reviewed by: Bobbi Knapp MA - Fully Assessed Reason for Visit: Allied Health Visit [5] Cmt: Medication Adherence Outreach Prescriptions as of 02/08/2025 - ondansetron orally disintegrating (ZOFRAN ODT) 4 mg disintegrating tablet Take 1 tablet by mouth every 8 hours as needed. - metFORMIN (GLUCOPHAGE) 500 mg tablet Take 1 tablet by mouth two times a day with meals. - dulaglutide (TRULICITY) 1.5 mg/0.5 mL pen injector Inject 1.5 mg subcutaneously one time a week. Inject once per week. Discard Pen After - blood sugar diagnostic (ONETOUCH VERIO TEST STRIPS) test strip Test blood sugar(s) 3 times daily. Dx: Type 2 DM - Controlled E11.9 Insulin: No - rosuvastatin (CRESTOR) 20 mg tablet Take 1 tablet by mouth daily at bedtime. - clobetasol (TEMOVATE) 0.05 % cream apply to rash on legs and hands twice daily 5 days a week as needed. Apply twice daily as needed, up to 21 days per month. Avoid application to the face, armpits, groin. - albuterol HFA (PROVENTIL HFA, VENTOLIN HFA) 90 mcg/actuation inhaler Inhale 2 Puffs as instructed every 4 hours as needed for wheezing/shortness of breath. - furosemide (LASIX) 20 mg tablet Take 1 tablet by mouth once daily. - pantoprazole DR (PROTONIX) 40 mg tablet Take 1 tablet by mouth once daily. - montelukast (SINGULAIR) 10 mg tablet Take 1 tablet by mouth daily at bedtime. - citalopram (CELEXA) 40 mg tablet Take 1 tablet by mouth once daily. - coenzyme Q10 (COENZYME Q-10) 100 mg cap capsule Take 1 capsule by mouth twice daily. - Cholecalciferol, Vitamin D3, 25 mcg (1,000 unit) cap Take 1 capsule by mouth once daily. - fluticasone-salmeterol (ADVAIR, WIXELA) 250-50 mcg/dose Inhale 1 Puff as instructed twice daily. - blood sugar diagnostic (BLOOD GLUCOSE TEST) test strip Test blood sugar(s) 3 times daily. Dx: Type 2 DM - Controlled E11.9 Insulin: No: True Matrix - Lancets lancets Test blood sugar(s) 3 times daily. Dx: Type 2 DM - Controlled E11.9 Insulin: No True matrix - Blood-Glucose Meter monitoring kit Glucose Meter of Choice - Kit - Dx: Type 2 DM - Controlled E11.9 - COMPOUNDED PRESCRIPTION Tens unit DX: DDD of neck and lumbar spine - aspirin, enteric coated (ASPIRIN, ENTERIC COATED) 81 mg EC tablet Take 81 mg by mouth once daily. - traZODone 100 mg tablet Take 100 mg by mouth daily at bedtime. One or two Problem List As Of Date 02/08/2025 Noted Resolved Hyperlipidemia [E78.5] 03/10/2017 Diverticulitis [K57.92] 11/28/2017 Diabetes mellitus [E11.9] 07/19/2015 Dizziness and giddiness [R42] 08/24/2012 12/05/2017 Neoplasm of uncertain behavior of skin [D48.5] 12/09/2012 11/28/2017 Atypical nevus of back [D22.5] 12/09/2012 Atypical nevus of abdominal wall [D22.5] 12/09/2012 12/05/2017 Actinic keratosis [L57.0] 12/09/2012 Irritated//Inflamed Seborrheic Keratoses [L82.0]12/09/2012 12/05/2017 Actinic skin damage [L57.8] 12/09/2012 Melanocytic nevi of face [D22.30] 12/09/2012 Dermatofibroma of right thigh [D23.71] 12/09/2012 Dermatofibroma of forearm [D23.60] 12/09/2012 Other seborrheic keratosis [L82.1] 12/09/2012 Solar Lentigines [L81.4] 12/09/2012 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/19/2013 GERD (gastroesophageal reflux disease) [K21.9] 05/15/2015 Status post cervical spinal fusion [Z98.1] 05/15/2015 12/05/2017 Depression [F32.A] 05/15/2015 Lung nodules [R91.8] 05/15 (more content not included)...[facility]* Diagnosis Onset Date Resolution Status Admit Date Pulmonary nodules acute January 092024 10:38am Smoking greater than 30 pack years acute February 02, 2025 10:38am Asthma noneactive February 02 10:38am Dysphagia acute March 09 9:24am Nausea & vomiting acute February 102024 9:24am Dysphagia acute March 16, 2025 12:35pm Pulmonary nodules acute March 12:35pm Smoking greater than 30 pack years acute March 16, 2025 12 :35pm Diabetes chronic March 16, 2025 12:35pm Screening for depression noneactive March 16, 2025 12:35pm Immunization declined noneactive March 16, 2025 12:35pm Thyroid nodule noneactive March 16, 025 12:35pm Establishing care with new doctor, encounter for noneactive March 16 025 12:35pm Vitamin deficiency noneactive March 12:35pm Rash and nonspecific skin eruption noneactive March 16, 2025 12 :35pm Post-menopausal noneactive March 16, 2025 12:35pm Mid back pain on right side noneacti ve March 16, 2025 12:35pm Pelvic pain in female noneactive March 16, 2025 12:35pm Screening for breast cancer noneacti ve March 16, 2025 12:35pm Cyst of left kidney noneactive March 162024 12:35pm Monoclonal gammopathy noneactive March 16, 2025 12:35pm Asthma noneactive March 16, 2025 12:35pm Pulmonary nodules acute March 10:11am Smoking greater than 30 pack years acute April 06, 2025 1 0:11am Asthma noneactive April 06, 2025 10:11am Dysphagia acute April 07, 2025 1:19pm Nausea & vomiting acute March 1:19pm Esophageal reflux inactive March 1:19pm Chest pain acute May 16, 2025 2:14pm Heart palpitations acute May 162024 2:14pm [facility] Work Phone: 1(435) 315-787702-18-2025 Evaluation note* Diagnosis Onset Date Resolution Status Admit Date Diarrhea acute December 28, 2024 11:17am [facility] Work Phone: 1(317) 175-465502-18-2025 Evaluation note* Diagnosis Onset Date Resolution Status Admit Date Diarrhea resolved December 28, 2024 11:17am Pulmonary nodules acute January 092024 10:38am Smoking greater than 30 pack years acute February 02, 2025 10:38am Asthma noneactive February 02 10:38am Dysphagia acute March 09 9:24am Nausea & vomiting acute February 102024 9:24am Dysphagia acute March 16, 2025 12:35pm Pulmonary nodules acute March 12:35pm Smoking greater than 30 pack years acute March 16, 2025 12 :35pm Diabetes chronic March 16, 2025 12:35pm Screening for depression noneactive March 16, 2025 12:35pm Immunization declined noneactive March 16, 2025 12:35pm Thyroid nodule noneactive March 16, 025 12:35pm Establishing care with new doctor, encounter for noneactive March 16, 025 12:35pm Vitamin deficiency noneactive March 12:35pm Rash and nonspecific skin eruption noneactive March 16, 2025 12 :35pm Post-menopausal noneactive March 16, 2025 12:35pm Mid back pain on right side noneacti ve March 16, 2025 12:35pm Pelvic pain in female noneactive March 16, 2025 12:35pm Screening for breast cancer noneacti ve March 16, 2025 12:35pm Cyst of left kidney noneactive March 162024 12:35pm Monoclonal gammopathy noneactive March 16, 2025 12:35pm Asthma noneactive March 16, 2025 12:35pm [facility] Work Phone: 1(299) 428-665402-18-2025 Evaluation note* Diagnosis Onset Date Resolution Status Admit Date Diarrhea resolved December 28, 2024 11:17am Pulmonary nodules acute January 092024 10:38am Smoking greater than 30 pack years acute February 02, 2025 10:38am Asthma noneactive February 02 10:38am Dysphagia acute March 09 9:24am Nausea & vomiting acute February 102024 9:24am Dysphagia acute March 16, 2025 12:35pm Pulmonary nodules acute March 12:35pm Smoking greater than 30 pack years acute March 16, 2025 12 :35pm Diabetes chronic March 16, 2025 12:35pm Screening for depression noneactive March 16, 2025 12:35pm Immunization declined noneactive March 16, 2025 12:35pm Thyroid nodule noneactive March 16 12:35pm Establishing care with new doctor, encounter for noneactive March 16 12:35pm Vitamin deficiency noneactive March 12:35pm Rash and nonspecific skin eruption noneactive March 16, 2025 12 :35pm Post-menopausal noneactive March 16, 2025 12:35pm Mid back pain on right side noneacti ve March 16, 2025 12:35pm Pelvic pain in female noneactive March 16, 2025 12:35pm Screening for breast cancer noneacti ve March 16, 2025 12:35pm Cyst of left kidney noneactive March 162024 12:35pm Monoclonal gammopathy noneactive March 16, 2025 12:35pm Asthma noneactive March 16, 2025 12:35pm Pulmonary nodules acute March 10:11am Smoking greater than 30 pack years acute April 06, 2025 1 0:11am Asthma noneactive April 06, 2025 10:11am [facility] Work Phone: 1(216) 672-379602-07-2025 NoteHNO ID: [id number] Author: IRAIDA PAGE MA Service: ? Author Type: High School Coach Type: Progress Notes Filed: 12/17/2024 07:37 Note Text: POPULATION HEALTH NAVIGATION OUTREACH Action/ - [employer] Unknown PCP Patient is already scheduled with Sahra Segura CNP to est care and appointment note states not to reschedule this appointment as it has been rescheduled already. 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 Reason for Outreach Attribution: Unknown PCP Report Care Gaps due: Establish Care Appointment Patient Contacted: Unable or unnecessary to reach patient: PCP field updated Patient already scheduled Updated appointment notes Navigation Signature: Iraida Page MA December 17, 2024 7:32 [facility]02-07-2025 History of Present illness Narrative* Iraida Page MA - 12/17/2024 7:32 AM EST POPULATION HEALTH NAVIGATION OUTREACH Action/FYI - [employer] Unknown PCP Patient is already scheduled with Sahra Segura CNP to est care and appointment note states not toreschedule this appointment as it has been rescheduled already. 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 Reason for Outreach Attribution: Unknown PCP Report Care Gaps due: Establish Care Appointment Patient Contacted: Unable or unnecessary to reach patient: PCP field updated Patient already scheduled Updated appointment notes Navigation Signature: Iraida Page MA December 17, 2024 7:32 AM documented in this encounterPromedica [facility]02-[facility] NotePatient Outreach (SHAHEEDV) ЮЛИЯ PRASAD ([id number]) 1955 F Date Time Provider Department 12/17/24 IRAIDA PAGE During your visit today, we recorded the following information about you: Iraida Page MA 12/17/2024 7:37 AM Signed POPULATION HEALTH NAVIGATION OUTREACH Action/FYI - [employer] Unknown PCP Patient is already scheduled with Sahra Segura CNP to est care and appointment note states not to reschedule this appointment as it has been rescheduled already. I updated PCP team field and added to appointment note to review PCP status and update PCP field at appointment as I am not sure if RADHA can be her PCP. Reason for Outreach Attribution: Unknown PCP Report Care Gaps due: Establish Care Appointment Patient Contacted: Unable or unnecessary to reach patient: PCP field updated Patient already scheduled Updated appointment notes Navigation Signature: Iraida Page MA December 17, 2024 7:32 AM Allergies As of Date: 12/17/2024 Noted Allergy Reaction METRONIDAZOLE 01/25/2014 10 - Anaphylaxis ADHESIVE 04/28/2013 14 - Other: See Comments Comments: redness with bandaids AUGMENTIN (AMOXICILLIN-POT CLAVUL*01/25/2014 14 - Other: See Comments Comments: Thrush/yeast infection CIPROFLOXACIN 01/25/2014 2 - Rash CLINDAMYCIN 10/23/2016 7 - Swelling Comments: throat swelling PENICILLINS 06/09/2012 5 - Intolerance Comments: Yeast infections PROZAC (FLUOXETINE HCL) 10/26/2013 2 - Rash SULFA DYNE 06/09/2012 2 - Rash Date Reviewed: 09/10/2024 Reviewed by: Bobbi Knapp MA - Fully Assessed Reason for Visit: Population Health Navigation Outreach [3910] Cmt: [employer] Unknown PCP Prescriptions as of 12/17/2024 - ondansetron orally disintegrating (ZOFRAN ODT) 4 mg disintegrating tablet Take 1 tablet by mouth every 8 hours as needed. - metFORMIN (GLUCOPHAGE) 500 mg tablet Take 1 tablet by mouth two times a day with meals. - dulaglutide (TRULICITY) 1.5 mg/0.5 mL pen injector Inject 1.5 mg subcutaneously one time a week. Inject once per week. Discard Pen After - blood sugar diagnostic (ONETOUCH VERIO TEST STRIPS) test strip Test blood sugar(s) 3 times daily. Dx: Type 2 DM - Controlled E11.9 Insulin: No - rosuvastatin (CRESTOR) 20 mg tablet Take 1 tablet by mouth daily at bedtime. - clobetasol (TEMOVATE) 0.05 % cream apply to rash on legs and hands twice daily 5 days a week as needed. Apply twice daily as needed, up to 21 days per month. Avoid application to the face, armpits, groin. - albuterol HFA (PROVENTIL HFA, VENTOLIN HFA) 90 mcg/actuation inhaler Inhale 2 Puffs as instructed every 4 hours as needed for wheezing/shortness of breath. - furosemide (LASIX) 20 mg tablet Take 1 tablet by mouth once daily. - pantoprazole DR (PROTONIX) 40 mg tablet Take 1 tablet by mouth once daily. - montelukast (SINGULAIR) 10 mg tablet Take 1 tablet by mouth daily at bedtime. - citalopram (CELEXA) 40 mg tablet Take 1 tablet by mouth once daily. - coenzyme Q10 (COENZYME Q-10) 100 mg cap capsule Take 1 capsule by mouth twice daily. - Cholecalciferol, Vitamin D3, 25 mcg (1,000 unit) cap Take 1 capsule by mouth once daily. - fluticasone-salmeterol (ADVAIR, WIXELA) 250-50 mcg/dose Inhale 1 Puff as instructed twice daily. - blood sugar diagnostic (BLOOD GLUCOSE TEST) test strip Test blood sugar(s) 3 times daily. Dx: Type 2 DM - Controlled E11.9 Insulin: No: True Matrix - Lancets lancets Test blood sugar(s) 3 times daily. Dx: Type 2 DM - Controlled E11.9 Insulin: No True matrix - Blood-Glucose Meter monitoring kit Glucose Meter of Choice - Kit - Dx: Type 2 DM - Controlled E11.9 - COMPOUNDED PRESCRIPTION Tens unit DX: DDD of neck and lumbar spine - aspirin, enteric coated (ASPIRIN, ENTERIC COATED) 81 mg EC tablet Take 81 mg by mouth once daily. - traZODone 100 mg tablet Take 100 mg by mouth daily at bedtime. One or two Problem List As Of Date 12/17/2024 Noted Resolved Hyperlipidemia [E78.5] 03/10/2017 Diverticulitis [K57.92] 11/28/2017 Diabetes mellitus [E11.9] 07/19/2015 Dizziness and giddiness [R42] 08/24/2012 12/05/2017 Neoplasm of uncertain behavior of skin [D48.5] 12/09/2012 11/28/2017 Atypical nevus of back [D22.5] 12/09/2012 Atypical nevus of abdominal wall [D22.5] 12/09/2012 12/05/2017 Actinic keratosis [L57.0] 12/09/2012 Irritated//Inflamed Seborrheic Keratoses [L82.0]12/09/2012 12/05/2017 Actinic skin damage [L57.8] 12/09/2012 Melanocytic nevi of face [D22.30] 12/09/2012 Dermatofibroma of right thigh [D23.71] 12/09/2012 Dermatofibroma of forearm [D23.60] 12/09/2012 Other seborrheic keratosis [L82.1] 12/09/2012 Solar Lentigines [L81.4] 12/09/2012 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/19/2013 GERD (gastroesophageal reflux disease) [K21.9] 05/15/2015 Status post cervical spinal fusion [Z98.1] 05/15/2015 12/05/2017 Depression [F32.A] 05/15/20 (more content not included)...[facility]01-06-2025 Telephone encounter Note* Telephone Encounter - Christie Ramirez PA-C - 11/15/2024 8:17 AM EST Patient not seen in over 1 year [facility]01-06-2025 Miscellaneous Notes* Telephone Encounter - Christie Ramirez PA-C - 11/15/2024 8:17 AM EST Patient not seen in over 1 year * Telephone Encounter - Jenni Roy MA - 11/12/2024 3:34 PM EST Patient last seen in office 04/2023. [facility] Telephone encounter Note * Telephone Encounter - Jenni Roy MA - 11/12/2024 3:34 PM EST Patient last seen in office 04/2023. [facility]11-01-2024 NoteHNO ID: [id number] Author: JUAREZ VELASCO MD Service: ? Author Type: Physician Type: Progress Notes Filed: 09/10/2024 15:32 Note Text: Patient presents with: Sore Throat: ERVIN x1 month HPI: Feeling sore throat for 1 month. Positive symptoms: Sore throat, neck tenderness, blister in the right throat, bilateral Earache, Sinus pressure, Nasal Congestion, Rhinorrhea, Fatigue, sneezing, Headache, Nausea (for years), Vomiting (1-2x/wk), Negative symptoms: Fever, OTC: lozenges, throat spray, singulair, protonix, pepcid MEDICATIONS: Current Outpatient Medications Medication Sig ondansetron orally disintegrating (ZOFRAN ODT) 4 mg disintegrating tablet Take 1 tablet by mouth every 8 hours as needed. metFORMIN (GLUCOPHAGE) 500 mg tablet Take 1 tablet by mouth two times a day with meals. dulaglutide (TRULICITY) 1.5 mg/0.5 mL pen injector Inject 1.5 mg subcutaneously one time a week. Inject once per week. Discard Pen After blood sugar diagnostic (ITDatabaseUCH VERIO TEST STRIPS) test strip Test blood sugar(s) 3 times daily. Dx: Type 2 DM - Controlled E11.9 Insulin: No meloxicam (MOBIC) 15 mg tablet Take 1 tablet by mouth once daily. rosuvastatin (CRESTOR) 20 mg tablet Take 1 tablet by mouth daily at bedtime. clobetasol (TEMOVATE) 0.05 % cream apply to rash on legs and hands twice daily 5 days a week as needed. Apply twice daily as needed, up to 21 days per month. Avoid application to the face, armpits, groin. albuterol HFA (PROVENTIL HFA, VENTOLIN HFA) 90 [...] Take 1 capsule by mouth twice daily. (Patient taking differently: Take 100 mg by mouth once daily.) Cholecalciferol, Vitamin D3, 25 mcg (1,000 unit) cap Take 1 capsule by mouth once daily. fluticasone-salmeterol (ADVAIR, WIXELA) 250-50 mcg/dose Inhale 1 Puff as instructed twice daily. blood sugar diagnostic (BLOOD GLUCOSE TEST) test strip Test blood sugar(s) 3 times daily. Dx: Type 2 DM - Controlled E11.9 Insulin: No: True Matrix Lancets lancets Test blood sugar(s) 3 times daily. Dx: Type 2 DM - Controlled E11.9 Insulin: No True matrix Blood-Glucose Meter monitoring kit Glucose Meter of Choice - Kit - Dx: Type 2 DM - Controlled E11.9 COMPOUNDED PRESCRIPTION Tens unit DX: DDD of neck and lumbar spine aspirin, enteric coated (ASPIRIN, ENTERIC COATED) 81 mg EC tablet Take 81 mg by mouth once daily. traZODone 100 mg tablet Take 100 mg by mouth daily at bedtime. One or two No current facility-administered medications for this visit. ALLERGIES: ALLERGIES Allergen Reactions Metronidazole Anaphylaxis Adhesive Other: See Comments redness with bandaids Augmentin [Amoxicil* Other: See Comments Thrush/yeast infection Ciprofloxacin Rash Clindamycin Swelling throat swelling Penicillins Intolerance Yeast infections Prozac [Fluoxetine * Rash Sulfa Dyne Rash VITALS: BP 120/72 Pulse 93 Temp 36.2 ?C (97.2 ?F) Resp 18 Wt 61.5 kg (135 lb 9.3 oz) SpO2 98% BMI 25.27 kg/m? PHYSICAL EXAM: GEN: mildly ill appearing HEENT: PERRL, EOMI, conjunctiva clear Ears: canals clear. TMs without erythema, bulge, or effusion Sinuses: non-tender frontal sinus, non-tender maxillary sinuses Throat: moist mucous membranes, mild erythema, 3mm collection of lymphoid tissue right tonsillar bed, no exudate Neck: supple, no thyromegaly, tender submandibular and anterior chain tissues. HEART: regular rate and rhythm, no murmurs LUNGS: clear to auscultation, no wheezes or crackles, no increased WOB ASSESSMENT/PLAN: 1. Sore throat - ICD9: 462, ICD10: J02.9 (primary diagnosis) 2. Gastroesophageal reflux disease, unspecified whether esophagitis present - ICD9: 530.81, ICD10: K21.9 Strep test negative. Suspect reflux is contributing to pharyngitis. Continue antacids. Recommended elevated head of bed. Consider GI consult. She has seen ENT in [place] and may follow up there for neck tenderness. Add an OTC antihistamine such as claritin or zyrtec to help with allergy related head congestion. Patient has been attempting to get re-established with primary care but currently cannot get an appointment sooner than January. Juarez Velasco, [facility]11-01-2024 History of Present illness Narrative* Juarez Velasco MD - 09/10/2024 1:57 PM EDT Patient presents with: Sore Throat: ERVIN x1 month HPI: Feeling sore throat for 1 month. Positive symptoms: Sore throat, neck tenderness, blister in the right throat, bilateral Earache, Sinus pressure, Nasal Congestion, Rhinorrhea, Fatigue, sneezing, Headache, Nausea (for years), Vomiting (1-2x/wk), Negative symptoms: Fever, OTC: lozenges, throat spray, singulair, protonix, pepcid MEDICATIONS: Current Outpatient Medications Medication Sig ondansetron orally disintegrating (ZOFRAN ODT) 4 mg disintegrating tablet Take 1 tablet by mouth every 8 hours as needed. metFORMIN (GLUCOPHAGE) 500 mg tablet Take 1 tablet by mouth two times a day with meals. dulaglutide (TRULICITY) 1.5 mg/0.5 mL pen injector Inject 1.5 mg subcutaneously one time a week. Inject once per week. Discard Pen After blood sugar diagnostic (ONETOUCH VERIO TEST STRIPS) test strip Test blood sugar(s) 3 times daily. Dx: Type 2 DM - Controlled E11.9 Insulin: No meloxicam (MOBIC) 15 mg tablet Take 1 tablet by mouth once daily. rosuvastatin (CRESTOR) 20 mg tablet Take 1 tablet by mouth daily at bedtime. clobetasol (TEMOVATE) 0.05 % cream apply to rash on legs and hands twice daily 5 days a week as needed. Apply twice daily as needed, up to 21 days per month. Avoid application to the face, armpits, groin. albuterol HFA (PROVENTIL HFA, VENTOLIN HFA) 90 [...] Take 1 capsule by mouth twice daily. (Patient taking differently: Take 100 mg by mouth once daily.) Cholecalciferol, Vitamin D3, 25 mcg (1,000 unit) cap Take 1 capsule by mouth once daily. fluticasone-salmeterol (ADVAIR, WIXELA) 250-50 mcg/dose Inhale 1 Puff as instructed twice daily. blood sugar diagnostic (BLOOD GLUCOSE TEST) test strip Test blood sugar(s) 3 times daily. Dx: Type 2 DM - Controlled E11.9 Insulin: No: True Matrix Lancets lancets Test blood sugar(s) 3 times daily. Dx: Type 2 DM - Controlled E11.9 Insulin: No True matrix Blood-Glucose Meter monitoring kit Glucose Meter of Choice - Kit - Dx: Type 2 DM - Controlled E11.9 COMPOUNDED PRESCRIPTION Tens unit DX: DDD of neck and lumbar spine aspirin, enteric coated (ASPIRIN, ENTERIC COATED) 81 mg EC tablet Take 81 mg by mouth once daily. traZODone 100 mg tablet Take 100 mg by mouth daily at bedtime. One or two No current facility-administered medications for this visit. ALLERGIES: ALLERGIES Allergen Reactions Metronidazole Anaphylaxis Adhesive Other: See Comments redness with bandaids Augmentin [Amoxicil* Other: See Comments Thrush/yeast infection Ciprofloxacin Rash Clindamycin Swelling throat swelling Penicillins Intolerance Yeast infections Prozac [Fluoxetine * Rash Sulfa Dyne Rash VITALS: BP 120/72 Pulse 93 Temp 36.2 C (97.2 F) Resp 18 Wt 61.5 kg (135 lb 9.3 oz) SpO2 98% BMI25.27 kg/m PHYSICAL EXAM: GEN: mildly ill appearing HEENT: PERRL, EOMI, conjunctiva clear Ears: canals clear. TMs without erythema, bulge, or effusion Sinuses: non-tender frontal sinus, non-tender maxillary sinuses Throat: moist mucous membranes, mild erythema, 3mm collection of lymphoid tissue right tonsillar bed, no exudate Neck: supple, no thyromegaly, tender submandibular and anterior chain tissues. HEART: regular rate and rhythm, no murmurs LUNGS: clear to auscultation, no wheezes or crackles, no increased WOB ASSESSMENT/PLAN: 1. Sore throat - ICD9: 462, ICD10: J02.9 (primary diagnosis) 2. Gastroesophageal reflux disease, unspecified whether esophagitis present - ICD9: 530.81, ICD10: K21.9 Strep test negative. Suspect reflux is contributing to pharyngitis. Continue antacids. Recommended elevated head of bed.Consider GI consult. She has seen ENT in [place] and may follow up there for neck tenderness. Add an OTC antihistamine such as claritin or zyrtec to help with allergy related head congestion. Patient has been attempting to get re-established with primary care but currently cannot get an appointment sooner than January. Juarez Velasco MD [facility] Telephone encounter Note * Telephone Encounter - Beatrice Luna MA - 08/17/2024 5:[address] Petersen declined to accept her back in May when she left the practice. She was already advised this twice. Will leave in basket for nursing staff Beatrice Luna MA August 17, 2024 5:24 PM [facility]10-08-2024 Miscellaneous Notes* Telephone Encounter - Beatrice Luna MA - 08/17/2024 5:[address] Petersen declined to accept her back in May when she left the practice. She was already advised this twice. Will leave in basket for nursing staff Beatrice Luna MA August 17, 2024 5:24 PM * Telephone Encounter - Gabbie Tidwell - 08/17/2024 4:38 PM EDT Patient was seen by Vinh until a few months ago. Patient left [facility] as she thought her insurance wasn't in network with [facility]. Patient's insurance is in network and wishes to re-establish with [facility]. Please advise if this is an option as she is diabetic and needs to be seen sooner than January with Dr. Carranza. Gabbie Tidwell documented in this encounterProm[facility]10-[facility]-2024 Telephone encounter Note * Telephone Encounter - Gabbie Tidwell - 08/17/2024 4:38 PM EDT Patient was seen by Vin[facility] until a few months ago. Patient left [facility] as she thought her insurance wasn't in network with [facility]. Patient's insurance is in network and wishes to re-establish with [facility]. Please advise if this is an option as she is diabetic and needs to be seen sooner than January with Dr. Carranza. Gabbie Tidwell [facility]10-08-2024 NoteHNO ID: [id number] Author: CRISTHIAN SMITH, DO Service: ? Author Type: Physician Type: Progress Notes Filed: 08/18/2024 16:20 Note Text: Hematologic problem(s): 1) IgG lambda MGUS. HPI: The patient is a 69-year-old female with a past medical history as outlined below. Establish with new PCP prior to referral here. Had lab work done through [facility] that showed an increase in serum globulin level. Protein electrophoresis was ordered and demonstrated a faint band in the gamma region suspicious for monoclonal gammopathy. Further workup was recommended. Was also found to have low serum iron and iron saturation. Chemistry significant for total serum protein of 8.2 g/dL. Albumin 4.5 g/dL. Serum creatinine 1.03 mg/dL. CBC demonstrated hemoglobin 12.8 g/dL. Total white count and platelet count normal. Spot urine negative for protein by dipstick analysis. Has had mild increase in serum protein in the past. No MP by electrophoresis on 3 occasions here. Per initial office visit: Fatigued. Pain in both tarango bones for about a month. Restless legs at night. Previous bone donor site from left iliac bone to do cervical graft hurts all the time. Bones in feet hurt. They feel weak, feel like feet don't want to work when I stand up. Hands hurt. ANDRES that fluctuates. Most recent EGD 03/14/2022 AG. Report in notes. C-scope 12/2017. Hyperplastic polyp. Was on oral iron years ago. Bad constipation. Presents for ongoing hematologic management. Interim history: Fatigued. PAST MEDICAL HISTORY Diagnosis Date Back pain [...] COLONOSCOPY FLX DX W/COLLJ SPEC WHEN PFRMD 09/01/2012 COLONOSCOPY FLX DX W/COLLJ SPEC WHEN PFRMD Done in [place] unable to obtain COLONOSCOPY FLX DX W/COLLJ SPEC WHEN PFRMD 11/17/2013 Colonoscopy COLONOSCOPY FLX DX W/COLLJ SPEC WHEN PFRMD 12/24/2017 Colonoscopy ESOPHAGOGASTRODUODENOSCOPY TRANSORAL DIAGNOSTIC 06/04/2013 EGD ESOPHAGOGASTRODUODENOSCOPY TRANSORAL DIAGNOSTIC 05/17/2015 EGD ESOPHAGOGASTRODUODENOSCOPY TRANSORAL DIAGNOSTIC 12/24/2017 EGD FNA (FINE NEEDLE ASPIRATION) 04/12/2024 right thyroid HYSTERECTOMY HX 1984 Pelvic pain AND DUB NEUROPLASTY AND/TRANSPOS MEDIAN NRV CARPAL TUNNE Bilateral 08/27/2018 Bilateral carpal tunnel release OOPHORECTOMY PARTIAL/TOTAL UNI/BI 1985 Bilateral PAST SURGICAL HISTORY OF removed tissue nose for SCC PAST SURGICAL HISTORY OF 10/13/2017 Excision nasal mass, Dr Juarez Harris REMOVE TONSIL AND ADENOI UNDER AGE 14 SLING OPER STRES INCONTINENCE 2002 ALLERGIES Allergen Reactions Metronidazole Anaphylaxis Adhesive Other: See Comments redness with bandaids Augmentin [Amoxicil* Other: See Comments Thrush/yeast infection Ciprofloxacin Rash Clindamycin Swelling throat swelling Penicillins Intolerance Yeast infections Prozac [Fluoxetine * Rash Sulfa Dyne Rash Current Outpatient Medications Medication Sig ondansetron orally disintegrating (ZOFRAN ODT) 4 mg disintegrating tablet Take 1 tablet by mouth every 8 hours as needed. metFORMIN (GLUCOPHAGE) 500 mg tablet Take 1 tablet by mouth two times a day with meals. dulaglutide (TRULICITY) 1.5 mg/0.5 mL pen injector Inject 1.5 mg subcutaneously one time a week. Inject once per week. Discard Pen After blood sugar diagnostic (ITDatabaseUCH VERIO TEST STRIPS) test strip Test blood sugar(s) 3 times daily. Dx: Type 2 DM - Controlled E11.9 Insulin: No meloxicam (MOBIC) 15 mg tablet Take 1 tablet by mouth once daily. rosuvastatin (CRESTOR) 20 mg tablet Take 1 tablet by mouth daily at bedtime. clobetasol (TEMOVATE) 0.05 % cream apply to rash on legs and hands twice daily 5 days a week as needed. Apply twice daily as needed, up to 21 days per month. Avoid application to the face, armpits, groin. albuterol HFA (PROVENTIL HFA, VENTOLIN HFA) 90 [...] Take 1 capsule by mouth twice daily. (more content not included)...[facility] [id number] History of Present illness Narrative* Cristhian Smith, - 08/17/2024 4:10 PM EDT Hematologic problem(s): 1) IgG lambda MGUS. HPI: The patient is a 69-year-old female with a past medical history as outlined below. Establish with new PCP prior to referral here. Had lab work done through [facility] that showed an increase in serum globulin level. Protein electrophoresis was ordered and demonstrated a faint band in the gamma region suspicious for monoclonal gammopathy. Further workup was recommended. Was also found to have low serum iron and iron saturation. Chemistry significant for total serum protein of 8.2 g/dL. Albumin 4.5 g/dL. Serum creatinine 1.03 mg/dL. CBC demonstrated hemoglobin 12.8 g/dL. Total white count and platelet count normal. Spot urine negative for protein by dipstick analysis. Has had mild increase in serum protein in the past. No MP by electrophoresis on 3 occasions here. Per initial office visit: Fatigued. Pain in both tarango bones for about a month. Restless legs at night. Previous bone donor site from left iliac bone to do cervical graft hurts all the time. Bones in feet hurt. They feel weak, feel like feet don't want to work when I stand up. Hands hurt. ANDRES that fluctuates. Most recent EGD 03/14/2022 AG. Report in notes. C-scope 12/2017. Hyperplastic polyp. Was on oral iron years ago. Bad constipation. Presents for ongoing hematologic management. Interim history: Fatigued. 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/2016 Right nasal tip Hyperlipidemia Lung nodules PAD (peripheral artery disease) ([facility]) 03/10/2017 02/06/2022 PVR ank/jackson/toe bilat: RIGHT SIDE JITENDRA: 1.19; TBI: 0.84, WNL at rest LEFT SIDE: JITENDRA: 1.19; TBI: 0.96, WNL at rest Pulmonary HTN ([facility]) 12/08/2017 mild Squamous cell skin cancer, nasal tip 06/24/2016 Tobacco abuse 03/28/2017 PAST SURGICAL HISTORY Procedure Laterality Date ADDTL NECK SPINE FUSION 09/2004 CHOLECYSTECTOMY 2000 COLONOSCOPY 1982 COLONOSCOPY FLX DX W/COLLJ SPEC WHEN PFRMD 09/01/2012 COLONOSCOPY FLX DX W/COLLJ SPEC WHEN PFRMD Done in [place] unable to obtain COLONOSCOPY FLX DX W/COLLJ SPEC WHEN PFRMD 11/17/2013 Colonoscopy COLONOSCOPY FLX DX W/COLLJ SPEC WHEN PFRMD 12/24/2017 Colonoscopy ESOPHAGOGASTRODUODENOSCOPY TRANSORAL DIAGNOSTIC 06/04/2013 EGD ESOPHAGOGASTRODUODENOSCOPY TRANSORAL DIAGNOSTIC 05/17/2015 EGD ESOPHAGOGASTRODUODENOSCOPY TRANSORAL DIAGNOSTIC 12/24/2017 EGD FNA (FINE NEEDLE ASPIRATION) 04/12/2024 right thyroid HYSTERECTOMY HX 1984 Pelvic pain & DUB NEUROPLASTY &/TRANSPOS MEDIAN NRV CARPAL TUNNE Bilateral 08/27/2018 Bilateral carpal tunnel release OOPHORECTOMY PARTIAL/TOTAL UNI/BI 1985 Bilateral PAST SURGICAL HISTORY OF removed tissue nose for SCC PAST SURGICAL HISTORY OF 10/13/2017 Excision nasal mass, Dr Juarez Harris REMOVE TONSIL AND ADENOI UNDER AGE 14 SLING OPER STRES INCONTINENCE 2001 ALLERGIES Allergen Reactions Metronidazole Anaphylaxis Adhesive Other: See Comments redness with bandaids Augmentin [Amoxicil* Other: See Comments Thrush/yeast infection Ciprofloxacin Rash Clindamycin Swelling throat swelling Penicillins Intolerance Yeast infections Prozac [Fluoxetine * Rash Sulfa Dyne Rash Current Outpatient Medications Medication Sig ondansetron orally disintegrating (ZOFRAN ODT) 4 mg disintegrating tablet Take 1 tablet by mouth every 8 hours as needed. metFORMIN (GLUCOPHAGE) 500 mg tablet Take 1 tablet by mouth two times a day with meals. dulaglutide (TRULICITY) 1.5 mg/0.5 mL pen injector Inject 1.5 mg subcutaneously one time a week. Inject once per week. Discard Pen After blood sugar diagnostic (ITDatabaseUCH VERIO TEST STRIPS) test strip Test blood sugar(s) 3 times daily. Dx: Type 2 DM - Controlled E11.9 Insulin: No meloxicam (MOBIC) 15 mg tablet Take 1 tablet by mouth once daily. rosuvastatin (CRESTOR) 20 mg tablet Take 1 tablet by mouth daily at bedtime. clobetasol (TEMOVATE) 0.05 % cream apply to rash on legs and hands twice daily 5 days a week as needed. Apply twice daily as needed, up to 21 days per month. Avoid application to the face, armpits, groin. albuterol HFA (PROVENTIL HFA, VENTOLIN HFA) 90 [...] Take 1 capsule by mouth twice daily. (Patient taking differently: Take 100 mg by mouth once daily.) Cholecalciferol, Vitamin D3, 25 mcg (1,000 unit) cap Take 1 capsule by mouth once daily. fluticasone-salmeterol (ADVAIR, WIXELA) 250-50 mcg/dose Inhale 1 Puff as instructed twice daily. blood sugar diagnostic (BLOOD GLUCOSE TEST) test strip Test blood sugar(s) 3 times daily. Dx: Type 2 DM - Controlled E11.9 Insulin: No: True Matrix Lancets lancets Test blood sugar(s) 3 times daily. Dx: Type 2 DM - Controlled E11.9 Insulin: No True matrix Blood-Glucose Meter monitoring kit Glucose Meter of Choice - Kit - Dx: Type 2 DM - Controlled E11.9 COMPOUNDED PRESCRIPTION Tens unit DX: DDD of neck and lumbar spine aspirin, enteric coated (ASPIRIN, ENTERIC COATED) 81 mg EC tablet Take 81 mg by mouth once daily. traZODone 100 mg tablet Take 100 mg by mouth daily at bedtime. One or two citalopram (CELEXA) 40 mg tablet Take 1 tablet by mouth once daily. No current facility-administered medications for this visit. Social History Tobacco Use Smoking status: Every Day Current packs/day: 0.50 Average packs/day: 0.5 packs/day for 49.0 years (24.5 ttl pk-yrs) Types: Cigarettes Start date: 1975 Smokeless tobacco: Never Tobacco comments: Former one ppd smoker Vaping Use Vaping status: Never Used Substance Use Topics Alcohol use: Not Currently Drug use: Not Currently Types: Marijuana Family History Problem Relation Age of Onset Colon Polyps Mother COPD Mother Colon Cancer Mother Colon Polyps Father Heart Father Colon Polyps Sister Hypertension Sister Hypertension Sister Hypertension Sister Thyroid Sister Colon Polyps Brother other (Parkinsonism [Other]) Brother Colon Polyps Brother Ischemic Heart Disease Brother Diabetes Maternal Grandfather ROS: Constitutional: No fever. No drenching night sweats. Normal appetite. No unexplained weight loss. Neuro: No recent ERVIN, vertigo, dizziness or imbalance. No symptoms of sensory neuropathy. HEENT: No recent change in voice, vision or hearing. Resp: No cough, wheeze of hemoptysis. No shortness of breath at rest. No ANDRES. CVS: No exertional chest pain, PND or orthopnea. No extremity swelling/edema. No symptoms of claudication. No painful or tender varicose veins. GI: No dysgeusia. No symptoms of stomatitis. No dysphagia or odynophagia. No reflux, n/v, change inbowel habits. No abdominal pain, bloating or distension. No black or bloody stools. : No dysuria or gross hematuria. No symptoms of bladder outlet obstruction. Endo: No hot flashes. No polyuria or polydipsia. No heat or cold intolerance. Derm: No current rash. No history of jaundice. No diffuse pruritis. Heme: No unusual bleeding and unexplained bruising. Psych: Normal mood. PHYSICAL EXAM: Vitals: Blood pressure 100/63, pulse 94, temperature 36.2 C (97.2 F), temperature source Temporal, weight 61.5 kg (135 lb 8 oz), SpO2 98%. Well-appearing and in no acute distress. EYES: Sclerae are anicteric bilaterally. LABS: Latest Ref [facility] 06/02/2024 WBC 3.70 - 11.00 k/uL 7.40 RBC 3.90 - 5.20 m/uL 4.10 Hemoglobin 11.5 - 15.5 g/dL 11.9 Hematocrit 36.0 - 46.0 % 36.1 MCV 80.0 - 100.0 fL 88.0 MCH 26.0 - 34.0 pg 29.0 MCHC 30.5 - 36.0 g/dL 33.0 RDW-CV 11.5 - 15.0 % 13.3 Platelet Count 150 - 400 k/uL 232 MPV 9.0 - 12.7 fL 9.7 Neut% % 47.4 Abs Neut (ANC) 1.45 - 7.50 k/uL 3.50 Lymph% % 45.1 Abs Lymph 1.00 - 4.00 k/uL 3.34 Bollinger% % 5.4 Abs Bollinger <0.87 k/uL 0.40 Eosin% % 1.5 Abs Eosin <0.46 k/uL 0.11 Baso% % 0.5 Abs Baso <0.11 k/uL 0.04 Immature Gran % % 0.1 IMMATURE GRANS (ABS) <0.10 k/uL <0.03 NRBC /100 WBC 0.0 Absolute nRBC <0.01 k/uL <0.01 DTYPE Auto Protein, Total 6.3 - 8.0 g/dL 7.9 Albumin 3.9 - 4.9 g/dL 4.8 Calcium 8.5 - 10.2 mg/dL 9.8 Bilirubin, Total 0.2 - 1.3 mg/dL 0.3 Alkaline Phosphatase 34 - 123 U/L 29 (L) AST 13 - 35 U/L 21 ALT 7 - 38 U/L 19 Glucose 74 - 99 mg/dL 132 (H) BUN 7 - 21 mg/dL 8 Creatinine 0.58 - 0.96 mg/dL 0.76 Sodium 136 - 144 mmol/L 135 (L) Potassium 3.7 - 5.1 mmol/L 3.9 Chloride 98 - 107 mmol/L 99 CO2 22 - 30 mmol/L 24 Anion Gap 8 - 15 mmol/L 12 eGFR >=60 mL/min/1.73m 87 Iron 41 - 186 ug/dL 64 TIBC 232 - 386 ug/dL 365 Transferrin Saturation 15.0 - 57.0 % 17.5 B2 Microglobulin <3.1 mg/L 2.3 Uric Acid 2.5 - 6.6 mg/dL 5.4 LD 135 - 214 U/L 163 Ferritin 14.7 - 205.1 ng/mL 19.9 Latest Ref Rn 06/02/2024 Albumin 3.43 - 5.41 g/dL 4.78 Alpha 1 Globulin 0.18 - 0.43 g/dL 0.29 Alpha 2 Globulin 0.42 - 0.98 g/dL 0.78 Beta Globulin 0.61 - 1.17 g/dL 0.95 Gamma Globulin 0.53 - 1.51 g/dL 1.50 Interpretation (Prot Electro) No definitive M protein is identified on protein electrophoresis. An atypical region of restricted mobility is identified on protein electrophoresis. ! Interpretation Comment for Protein Electrophoresis The atypical region is relatively poorly definedand may represent an unusual presentation of polyclonal immunoglobulins, but cannot rule out the presence of a low level M protein. If clinically indicated, monoclonal protein analysis and serum freelight chain analysis are suggested to evaluate further for monoclonal gammopathy. M-Protein Location -- M-Protein Concentration <=0.00 g/dL 0.00 SPE Staff Review Reviewed by Malachi Byrne MD, Ph.D ([id number]) Protein, Total 6.3 - 8.0 g/dL 8.3 (H) Latest Ref Rng 06/02/2024 IgG 700 - 1,600 mg/dL 1,624 (H) IgA 70 - 400 mg/dL 279 IgM 40 - 230 mg/dL 139 MPA Result No M protein is identified. A poorly defined region of restricted mobility is present that may represent an M protein. ! Interpretation (MPA) Poorly defined region of restricted mobility in the lambda mery. Pattern is less well defined or fainter than typically seen in monoclonal gammopathy. This could represent eitheran atypical presentation of polyclonal immunoglobulins or the presence of a low level lambda containing monoclonal gammopathy. If clinically indicated, urine monoclonal protein analysis and serum free light chain measurements are recommended to evaluate further for monoclonal gammopathy. Clinical correlation is necessary. Staff Review (MPA) Reviewed by Malachi Byrne MD, Ph.D ([id number]) [place] Free, Serum 3.3 - 19.4 mg/L 39.2 (H) Lambda Free, Serum 5.7 - 26.3 mg/L 20.5 K/L Ratio, Serum 0.26 - 1.65 1.91 (H) Latest Ref Rng 06/07/2024 Albumin %, 24 Hr Urine % 44.90 Alpha 1 Globulin %, 24 Hr Ur % 4.12 Alpha 2 Globulin %, 24 Hr Ur % 19.19 Beta Globulin %, 24 Hr Ur % 15.41 Gamma Globulin %, 24 Hr Ur % 16.37 Interpretation (UEPG24) No definitive M protein is identified on protein electrophoresis. No definitive M protein is identified on protein electrophoresis. M Lalo Quant, 24 Hr Urine g/24hr 0.00 Staff Review (UEPG24) Reviewed by Ziad Peerwani, M.D. Interpretation Comment for Protein Electrophoresis The atypical region is relatively poorly definedand may represent an unusual presentation of polyclonal immunoglobulins, but cannot rule out the presence of a low level M protein. If clinically indicated, monoclonal protein analysis and serum freelight chain analysis are suggested to evaluate further for monoclonal gammopathy. Protein, Timed Urine <0.15 g/24 Hr 0.38 (H) Period hr 24 Urine Volume 24 hour mL 3,200 Latest Ref Rng 06/07/2024 Result ([facility]) No M protein is identified. A poorly defined region of restricted mobility is presentthat may represent an M protein. ! Interpretation ([facility]) Poorly defined region of restricted mobility in IgG and lambda lanes. Patternis less well defined or fainter than typically seen in monoclonal gammopathy. This could represent either an atypical presentation of polyclonal immunoglobulins or the presence of a low level IgG lambda monoclonal gammopathy. If clinically indicated, serum monoclonal protein analysis and serum freelight chain measurements are recommended to evaluate further for monoclonal gammopathy. Clinical correlation is necessary. Staff Review ([facility]) Reviewed by Ileana Marina M.D. ASSESSMENT/PLAN: (D47.2) Monoclonal gammopathy (primary encounter diagnosis) Assessment: -Patient is a 68-year-old female with potential very low level IgG lambda MP identified by immunofixation of 24-hour urine collection. -Serum creatinine improved compared to a year ago. No hypercalcemia. -History of osteopenia. -History Iron deficiency. Intolerant to oral iron in the past. Longstanding PPI use. -Reviewed imaging and bone marrow biopsy in detail. MRI images with her--left renal cyst unchanged in size compared to most recent US. -Diagnosis is MGUS. Plan: -Monitor for anemia and iron deficiency. -Reassess MGUS in 6 months. Then annually if stable. Portions of this documentation were copied and pasted from previous office visit notes in order to provide a cohesive continuity of the history. The note has been reviewed and edited and updated as necessary. I spent a total of 20 minutes on the date of the service which included preparing to see the patient, [id number] patient care, completing clinical documentation, obtaining and/or reviewing separately obtained history, performing a medically appropriate examination, counseling and educating the pat ient/family/caregiver, and communicating results to the patient/family/caregiver. Cristhian Smith DO documented in this encounterProm[facility] Telephone encounter Note * Telephone Encounter - Franklin Hankins RN - 08/10/2024 4:17 PM EDT Left detailed vm on identified vm letting patient know this day will not work for pcp. Advised I have cancelled the appt in Nov, and asked patient to call back, and speak with a nurse or pss, to schedule an est care appt. [facility]10-01-[facility] Miscellaneous Notes* Telephone Encounter - Franklin Hankins RN - 08/10/2024 4:17 PM EDT Left detailed vm on identified vm letting patient know this day will not work for pcp. Advised I have cancelled the appt in Nov, and asked patient to call back, and speak with a nurse or pss, to schedule an est care appt. * Telephone Encounter - Hemanth Carranza MD - 08/10/2024 12:58 PM EDT I already have 2 new patient appointments scheduled for this day. 9 am and 2:20pm. They will need to be scheduled for a day when I have less than 2 new patients scheduled. * Telephone Encounter - Franklin Hankins RN - 08/10/2024 11:40 AM EDT Patient was transferred to this nurse, after scheduling an appt with Medical Concierge to est care, for Dec. Patient wants sooner appt to est care. Scheduled patient with Dr. Carranza on 09-21-24 at 7 am. Thiswas the only time this nurse could get. This appt, makes 2 appts to est care, on this day, for doctor. Please advise patient if this date/time is not ok [phone]. States she is diabetic, has issues with lungs, kidney and bladder, and needs a doctor to monitor these. Reports she transferred out of [facility] in Dec, and when attempted to transfer back to Dr. Petersen,was told he is no longer accepting new patients. documented in this encounterPromed[facility]10-[facility]24 Telephone encounter Note * Telephone Encounter - Hemanth Carranza MD - 08/10/2024 12:58 PM EDT I already have 2 new patient appointments scheduled for this day. 9 am and 2:20pm. They will need to be scheduled for a day when I have less than 2 new patients scheduled. [facility] Work Phone: 1(846) 376-964310-01-2024 Telephone encounter Note* Telephone Encounter - Franklin Hankins RN - 08/10/2024 11:40 AM EDT Patient was transferred to this nurse, after scheduling an appt with Medical Concierge to est care, for Dec. Patient wants sooner appt to est care. Scheduled patient with Dr. Carranza on 09-21-24 at 7 am. Thiswas the only time this nurse could get. This appt, makes 2 appts to est care, on this day, for doctor. Please advise patient if this date/time is not ok [phone]. States she is diabetic, has issues with lungs, kidney and bladder, and needs a doctor to monitor these. Reports she transferred out of [facility] in Dec, and when attempted to transfer back to Dr. Petersen,was told he is no longer accepting new patients. [facility]09-26-[facility]24 NoteHNO ID: [id number] Author: ORVILLE TAVARES APRN.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 Service: ? Author Type: Nurse Practitioner Type: Procedures Filed: 2024 13:50 Note Text: BEDSIDE PROCEDURE NOTE BONE MARROW BIOPSY Date/Start Time: 2024 12:52 PM Date/Stop Time: 2024 1:09 PM Performed by: Orville Tavares APRN.CNP Authorized by: Orville Tavares APRN.CNP Where was Patient When this Procedure was Performed [facility] Informed Consent Consent Obtained: Written [place] Protocol A moment to CARE was completed. SIGN IN Personnel directly involved with the procedure wore the appropriate PPE. Special Equipment: Yes Patient/Surrogate Stated/Verified: Patient name, Date of , Relevant allergies and Intended procedure TIME OUT Intended patient and procedure match the source document(s). Consent documented and matches the intended procedure. Relevant labs, photos, and/or imaging studies have been reviewed. Correct side/site marked and visible. Medications required for procedure verified. No fire risk assessment and interventions applicable. No implant(s) inserted. Pre-Procedure Details: The area was prepped with povidone Iodine (Betadine) and allowed to dry. A sterile partial body drape was applied following the usual aseptic technique. Medications: Local Anesthesia (see MAR): Lidocaine 1% Anxiolysis (see MAR): Lorazapem Procedure Details: Patient Position: Left lateral decubitus Aspiration Laterality: Unilateral Aspiration Site: Right posterior superior iliac crest Biopsy Laterality: Unilateral Biopsy Site: Right posterior sperior iliac crest OnControl biopsy system was used. Using aseptic technique, bone marrow aspiration was performed. A touch prep was taken. Core biopsy was obtained 1 cm. The core biopsy was confirmed. Number of External Insertion Sites: 1 Pressure dressing applied to Bone Marrow site(s). Hemostasis maintained. Assisting Clinician(s): Paola Yao MA and Jeremiah Meredith MA Post-Procedure Details: Patient Tolerance: Patient tolerated the procedure well with no immediate complications Immediate Complications: N/A Estimated Blood Loss: none Specimens Sent: bone marrow analysis, bone marrow chromosome analysis, DNA extraction and flow cytometry Teaching Complete: Bone Marrow Biopsy Post-procedure teaching complete Post-procedure care was reviewed and explained. Patient instructed to communicate complaints of redness, swelling, increased or unresolved pain, bleeding chills, bruising, and/or fever. Patient verbalized understanding. SIGN OUT All specimen containers correctly labeled. All instruments, equipment, possible retained foreign bodies accounted for. Post-procedure follow-up management communicated and Plan of Care Visit completed when applicable SIGNATURE: Orville Tavares APRN.CNP PATIENT NAME: Юлия Prasad DATE: 2024 TIME: 1:47 [facility]09-26-2024 Procedure note* Orville Tavares APRN.CNP - 2024 1:47 PM EDTAssociated Order(s): BONE MARROW BIOPSY Post-Procedure Diagnose(s): Monoclonal gammopathy BEDSIDE PROCEDURE NOTE BONE MARROW BIOPSY Date/Start Time: 2024 12:52 PM Date/Stop Time: 2024 1:09 PM Performed by: Orville Tavares APRN.CNP Authorized by: Orville Tavares APRN.CNP Where was Patient When this Procedure was Performed [facility] Informed Consent Consent Obtained: Written [place] Protocol A moment to CARE was completed. SIGN IN Personnel directly involved with the procedure wore the appropriate PPE. Special Equipment: Yes Patient/Surrogate Stated/Verified: Patient name, Date of , Relevant allergies and Intended procedure TIME OUT Intended patient and procedure match the source document(s). Consent documented and matches the intended procedure. Relevant labs, photos, and/or imaging studies have been reviewed. Correct side/site marked and visible. Medications required for procedure verified. No fire risk assessment and interventions applicable. No implant(s) inserted. Pre-Procedure Details: The area was prepped with povidone Iodine (Betadine) and allowed to dry. A sterile partial body drape was applied following the usual aseptic technique. Medications: Local Anesthesia (see MAR): Lidocaine 1% Anxiolysis (see MAR): Lorazapem Procedure Details: Patient Position: Left lateral decubitus Aspiration Laterality: Unilateral Aspiration Site: Right posterior superior iliac crest Biopsy Laterality: Unilateral Biopsy Site: Right posterior sperior iliac crest OnControl biopsy system was used. Using aseptic technique, bone marrow aspiration was performed. A touch prep was taken. Core biopsy was obtained 1 cm. The core biopsy was confirmed. Number of External Insertion Sites: 1 Pressure dressing applied to Bone Marrow site(s). Hemostasis maintained. Assisting Clinician(s): Paola Yao MA and Jeremiah Meredith MA Post-Procedure Details: Patient Tolerance: Patient tolerated the procedure well with no immediate complications Immediate Complications: N/A Estimated Blood Loss: none Specimens Sent: bone marrow analysis, bone marrow chromosome analysis, DNA extraction and flow cytometry Teaching Complete: Bone Marrow Biopsy Post-procedure teaching complete Post-procedure care was reviewed and explained. Patient instructed to communicate complaints of redness, swelling, increased or unresolved pain, bleeding chills, bruising, and/or fever. Patient verbalized understanding. SIGN OUT All specimen containers correctly labeled. All instruments, equipment, possible retained foreign bodies accounted for. Post-procedure follow-up management communicated and Plan of Care Visit completed when applicable SIGNATURE: Orville Tavares APRN.CNP PATIENT NAME: Юлия Prasad DATE: 2024 TIME: 1:47 PM [facility] Work Phone: 1(375) 782-236209-26-2024 Procedure note* Orville Tavares APRN.CNP - 2024 1:47 PM EDTAssociated Order(s): BONE MARROW BIOPSY Post-Procedure Diagnose(s): Monoclonal gammopathy BEDSIDE PROCEDURE NOTE BONE MARROW BIOPSY Date/Start Time: 2024 12:52 PM Date/Stop Time: 2024 1:09 PM Performed by: Orville Tavares APRN.RADHA Authorized by: Orville Tavares APRN.CNP Where was Patient When this Procedure was Performed [facility] Informed Consent Consent Obtained: Written [place] Protocol A moment to CARE was completed. SIGN IN Personnel directly involved with the procedure wore the appropriate PPE. Special Equipment: Yes Patient/Surrogate Stated/Verified: Patient name, Date of , Relevant allergies and Intended procedure TIME OUT Intended patient and procedure match the source document(s). Consent documented and matches the intended procedure. Relevant labs, photos, and/or imaging studies have been reviewed. Correct side/site marked and visible. Medications required for procedure verified. No fire risk assessment and interventions applicable. No implant(s) inserted. Pre-Procedure Details: The area was prepped with povidone Iodine (Betadine) and allowed to dry. A sterile partial body drape was applied following the usual aseptic technique. Medications: Local Anesthesia (see MAR): Lidocaine 1% Anxiolysis (see MAR): Lorazapem Procedure Details: Patient Position: Left lateral decubitus Aspiration Laterality: Unilateral Aspiration Site: Right posterior superior iliac crest Biopsy Laterality: Unilateral Biopsy Site: Right posterior sperior iliac crest OnControl biopsy system was used. Using aseptic technique, bone marrow aspiration was performed. A touch prep was taken. Core biopsy was obtained 1 cm. The core biopsy was confirmed. Number of External Insertion Sites: 1 Pressure dressing applied to Bone Marrow site(s). Hemostasis maintained. Assisting Clinician(s): Paola Yao MA and Jeremiah Meredith MA Post-Procedure Details: Patient Tolerance: Patient tolerated the procedure well with no immediate complications Immediate Complications: N/A Estimated Blood Loss: none Specimens Sent: bone marrow analysis, bone marrow chromosome analysis, DNA extraction and flow cytometry Teaching Complete: Bone Marrow Biopsy Post-procedure teaching complete Post-procedure care was reviewed and explained. Patient instructed to communicate complaints of redness, swelling, increased or unresolved pain, bleeding chills, bruising, and/or fever. Patient verbalized understanding. SIGN OUT All specimen containers correctly labeled. All instruments, equipment, possible retained foreign bodies accounted for. Post-procedure follow-up management communicated and Plan of Care Visit completed when applicable SIGNATURE: Orville Tavares APRN.CNP PATIENT NAME: Юлия Prasad DATE: 2024 TIME: 1:47 PM documented in this encounterPromedica [facility]09-26-2024 Nurse Note* Paola Yao MA - 2024 1:08 PM EDT Pt discharged to home with Neighbor after BMBX with dry sterile dressing in place. No drainage noted. Post-procedures care reviewed with patient. Pt to call with any complaints of redness, swelling, increased or unresolved pain, bleeding, chills, bruising, and/or fever. Pt. Verbalized understanding. Paola Yao MA [facility]09-26-[facility] Nurse Note* Paola Yao MA - 2024 1:08 PM EDT Pt discharged to home with Neighbor after BMBX with dry sterile dressing in place. No drainage noted. Post-procedures care reviewed with patient. Pt to call with any complaints of redness, swelling, increased or unresolved pain, bleeding, chills, bruising, and/or fever. Pt. Verbalized understanding. Paola Yao MA documented in this encounterPromedica [facility]09-23-2024 Telephone encounter Note * Telephone Encounter - Emily Tirado LPN - 08/02/2024 1:03 PM EDT Patient notified. Emily Tirado LPN [facility]09-23-[facility] Miscellaneous Notes* Telephone Encounter - Emily Tirado LPN - 08/02/2024 1:03 PM EDT Patient notified. Emily Tirado LPN * Telephone Encounter - Cristhian Smith DO - 08/02/2024 12:57 PM EDT The following approved medication requests have been transmitted electronically. Requested Prescriptions Signed Prescriptions Disp Refills LORazepam (ATIVAN) 0.5 mg 1 tablet 0 Sig: Take 1 tablet by mouth one time only for 1 dose. Take 1 tablet 1 hour prior to bone marrow biopsy. Authorizing Provider: CRISTHIAN SMITH DO * Telephone Encounter - Emily Tirado LPN - 08/02/2024 10:44 AM EDT Rx pended. Emily Tirado LPN * Telephone Encounter - Rosie Tam - 08/02/2024 10:07 AM EDT Patient is scheduled for BMBX on 08/05. She states Dr Smith was going to prescribe a medication to keep her calm. She believes it as Ativan. Patient uses [facility] in [place] for pharm. documented in this encounterProm[facility]09-23-2024 Telephone encounter Note * Telephone Encounter - Cristhian Smith DO - 08/02/2024 12:57 PM EDT The following approved medication requests have been transmitted electronically. Requested Prescriptions Signed Prescriptions Disp Refills LORazepam (ATIVAN) 0.5 mg 1 tablet 0 Sig: Take 1 tablet by mouth one time only for 1 dose. Take 1 tablet 1 hour prior to bone marrow biopsy. Authorizing Provider: CRISTHIAN SMITH DO [facility]09-23-[facility] Telephone encounter Note* Telephone Encounter - Emily Tirado LPN - 08/02/2024 10:44 AM EDT Rx pended. Emily Tirado LPN [facility]09-[facility] Telephone encounter Note* Telephone Encounter - Rosie Tam - 08/02/2024 10:07 AM EDT Patient is scheduled for BMBX on 08/05. She states Dr Smith was going to prescribe a medication to keep her calm. She believes it as Ativan. Patient uses [facility] in [place] for pharm. [facility] Work Phone: [phone]) 593-146909-19-2024 History of Present illness Narrative* Beatrice Moore RT(R) - 07/29/2024 1:00 PM EDT Radiology Service Progress Note DATE OF SERVICE: July 29, 2024 TIME: 1:07 PM PATIENT IDENTITY VERIFICATION COMPLETED USING TWO (2) STANDARD IDENTIFIERS: Name and Date of confirmed by patient verbally. FALL SCREENING: Has the patient had 2 falls in the last year or 1 fall with injury or currently using an Ambulatory Assistive Device (Walker, Cane, Wheelchair, Crutches, etc.)? No PATIENT GENDER DATA: Female. status: : No status: NO. PATIENT RELEVANT IMPLANT DATA REVIEWED: Yes PATIENT PRESENTS WITH AN IMPLANTABLE OR ATTACHED INCIDENT RESPONSE CONSULTANT: No ALLERGIES: Reviewed and unchanged CONTRAST ALLERGY: NO. EXAM: MRI - CONTRAST TYPE: GROUP II PERIPHERAL IV DATA: Ambulatory: A peripheral IV was started in the Right antecubital site with a Angio cath: 22 gauge. RADIOLOGY DEPARTMENT: MR; Exam(s) Completed: Lower MSK: Pelvis, bilateral Spine: Cervical spine, Thoracic spine, and Lumbar spine SIGNATURE: KAUR Xiong) PATIENT NAME: Юлия Prasad DATE: July 29, 2024 TIME: 1:07 PM documented in this encounterPromedica Memorial Hospital09-19-2024 NoteHNO ID: [id number] Author: BEATRICE MOORE RT (R) Service: ? Author Type: Technologist Type: Progress Notes Filed: 07/29/2024 13:42 Note Text: Radiology Service Progress Note DATE OF SERVICE: July 29, 2024 TIME: 1:07 PM PATIENT IDENTITY VERIFICATION COMPLETED USING TWO (2) STANDARD IDENTIFIERS: Name and Date of confirmed by patient verbally. FALL SCREENING: Has the patient had 2 falls in the last year or 1 fall with injury or currently using an Ambulatory Assistive Device (Walker, Cane, Wheelchair, Crutches, etc.)? No PATIENT GENDER DATA: Female. status: : No status: NO. PATIENT RELEVANT IMPLANT DATA REVIEWED: Yes PATIENT PRESENTS WITH AN IMPLANTABLE OR ATTACHED INCIDENT RESPONSE CONSULTANT: No ALLERGIES: Reviewed and unchanged CONTRAST ALLERGY: NO. EXAM: MRI - CONTRAST TYPE: GROUP II PERIPHERAL IV DATA: Ambulatory: A peripheral IV was started in the Right antecubital site with a Angio cath: 22 gauge. RADIOLOGY DEPARTMENT: MR; Exam(s) Completed: Lower MSK: Pelvis, bilateral Spine: Cervical spine, Thoracic spine, and Lumbar spine SIGNATURE: RT Tyrese(R) PATIENT NAME: Юлия Prasad DATE: July 29, 2024 TIME: 1:07 [facility]08-29-2024 Telephone encounter Note* Telephone Encounter - Fanta Cline APRN.CNP - 07/08/2024 11:35 AM EDT I have sent 30 pills and patient should schedule follow up endoscopy if she is due. [facility]08-[facility] Miscellaneous Notes* Telephone Encounter - Fanta Cline APRN.CNP - 07/08/2024 11:35 AM EDT I have sent 30 pills and patient should schedule follow up endoscopy if she is due. * Telephone Encounter - Kely Solano RN - 07/08/2024 10:37 AM EDT Pt called in and reports Dr Petersen and Maciej WILLIS put her on Zofran a long time ago because she has a lot of acid production in her stomach and bad nausea in the morning. She states she takes Pantoprazole in the morning, but it doesn't always help and sometimes she will still throw up. She statesshe doesn't know if it's sinus drainage or stomach acid but at least once a week she will throw up yellowish brow mucousy bile that orta her throat. She states Zofran is the only thing that will settle her stomach. She states it is probably time for her to get another endoscopy done, the last timeshe said it came back abnormal but she can't remember what it said it was so long ago. Please call and advise. * Telephone Encounter - Danielle De Leon LPN - 07/07/2024 4:01 PM EDT Left a message for pt to call the office and ask to speak to a nurse. When pt calls back ask pt why she is in need of Zofran. Sahra has denied this. Danielle De Leon LPN * Telephone Encounter - Annmarie Todd LPN - 07/06/2024 2:42 PM EDT Prescription Refill Information The patient has been identified by name and date of : Yes Caregiver verified no other encounters exist for this prescription request: Yes Caregiver confirmed with patient/requestor that no other refills are due, in the near future, with this provider at this time: Yes The last office visit in the department: 09/29/2023 Does the patient have a future office visit with this provider/department: Yes Requested Prescriptions Pending Prescriptions Disp Refills ondansetron orally disintegrating (ZOFRAN ODT) 4 mg disintegrating tablet 30 tablet 5 Sig: Take 1 tablet by mouth every 8 hours as needed. Annmarie Todd LPN July 06, 2024 2:42 PM documented in this encounterProm[facility] Telephone encounter Note * Telephone Encounter - Kely Solano RN - 07/08/2024 10:37 AM EDT Pt called in and reports Dr Petersen and Maciej WILLIS put her on Zofran a long time ago because she has a lot of acid production in her stomach and bad nausea in the morning. She states she takes Pantoprazole in the morning, but it doesn't always help and sometimes she will still throw up. She statesshe doesn't know if it's sinus drainage or stomach acid but at least once a week she will throw up yellowish brow mucousy bile that orta her throat. She states Zofran is the only thing that will settle her stomach. She states it is probably time for her to get another endoscopy done, the last timeshe said it came back abnormal but she can't remember what it said it was so long ago. Please call and advise. [facility]08-28-2024 Telephone encounter Note* Telephone Encounter - Danielle De Leon LPN - 07/07/2024 4:01 PM EDT Left a message for pt to call the office and ask to speak to a nurse. When pt calls back ask pt why she is in need of Zofran. Sahra has denied this. Danielle De Leon LPN [facility]08-27-2024 Telephone encounter Note* Telephone Encounter - Annmarie Todd LPN - 07/06/2024 2:42 PM EDT Prescription Refill Information The patient has been identified by name and date of : Yes Caregiver verified no other encounters exist for this prescription request: Yes Caregiver confirmed with patient/requestor that no other refills are due, in the near future, with this provider at this time: Yes The last office visit in the department: 09/29/2023 Does the patient have a future office visit with this provider/department: Yes Requested Prescriptions Pending Prescriptions Disp Refills ondansetron orally disintegrating (ZOFRAN ODT) 4 mg disintegrating tablet 30 tablet 5 Sig: Take 1 tablet by mouth every 8 hours as needed. Annmarie Todd LPN July 06, 2024 2:42 PM [facility]08-[facility] Telephone encounter Note* Telephone Encounter - Paola Kumar LPN - 07/06/2024 12:45 PM EDT Phoned patient went over results, notes from Sahra Moreno ORGAN TEACHER with understanding. [facility]08-27-2024 Miscellaneous Notes* Telephone Encounter - Paola Kumar LPN - 07/06/2024 12:45 PM EDT Phoned patient went over results, notes from Sahra Moreno ORGAN TEACHER with understanding. * Telephone Encounter - Sahra Moreno APRN.CNP - 07/06/2024 11:55 AM EDT Please call patient and let her know there is no mammographic evidence of malignancy. A 1 year screening mammogram is recommended. Sahra Moreno APRN.CNP documented in this encounterPromedica [facility] Hospital08-27-2024 Telephone encounter Note * Telephone Encounter - Sahra Moreno APRN.CNP - 07/06/2024 11:55 AM EDT Please call patient and let her know there is no mammographic evidence of malignancy. A 1 year screening mammogram is recommended. Sahra Moreno APRN.CNP [facility] Work Phone: 1(812) 600-824508-26-2024 Note* Letter - Coordinator, Mammography - 07/05/2024 12:16 PM EDT July 05, 2024 PID: [id number] Юлия Prasad [facility] [place] [address] Dear Ms. Prasad, We are pleased to inform you that the results of your recent breast imaging exam on 07/02/2024 are normal. Breast tissue can be either dense or not dense. Dense tissue makes it harder to find breast cancer on a mammogram and also raises the risk of developing breast cancer. Your breast tissue is not dense. Talk to your healthcare provider about breast density, risks for breast cancer, and your individual situation. Early detection of cancer is very important. We also understand recommendations regarding breast cancer screening are controversial. Please discuss with your primary care provider which strategy is best for you and whether a mammogram is right for you. Your imaging studies and report will be kept on file at [facility] as part of your permanent medical record and are available for your continuing care. Thank you for allowing us to help in meeting your health care needs. Sincerely, Dr. Tejeda Interpreting Radiologist [facility] (Normal over 40) [facility]08-26-2024 Miscellaneous Notes* Letter - Coordinator, Mammography - 07/05/2024 12:16 PM EDT July 05, 2024 PID: [id number] Юлия Prasad [facility] [place] [address] Dear Ms. Prasad, We are pleased to inform you that the results of your recent breast imaging exam on 07/02/2024 are normal. Breast tissue can be either dense or not dense. Dense tissue makes it harder to find breast cancer on a mammogram and also raises the risk of developing breast cancer. Your breast tissue is not dense. Talk to your healthcare provider about breast density, risks for breast cancer, and your individual situation. Early detection of cancer is very important. We also understand recommendations regarding breast cancer screening are controversial. Please discuss with your primary care provider which strategy is best for you and whether a mammogram is right for you. Your imaging studies and report will be kept on file at [facility] as part of your permanent medical record and are available for your continuing care. Thank you for allowing us to help in meeting your health care needs. Sincerely, Dr. Tejeda Interpreting Radiologist [facility] (Normal over 40) documented in this encounterPromedica Memorial Hospital08-23-2024 History of Present illness Narrative* Aliyah Medley Mammo Tech - 07/02/2024 12:50 PM EDT Radiology Service Progress Note PATIENT NAME: Юлия Prasad DATE OF SERVICE: July 02, 2024 TIME: 1:09 PM PATIENT IDENTITY VERIFICATION COMPLETED USING TWO (2) IDENTIFIERS: Name and Date of confirmedby patient verbally. FALL SCREENING: Has the patient had 2 falls in the last year or 1 fall with injury or currently using an Ambulatory Assistive Device (Walker, Cane, Wheelchair, Crutches, etc.)? No PATIENT GENDER DATA: Female. status: : No status: NO. PATIENT RELEVANT IMPLANT DATA REVIEWED: Not Applicable PATIENT PRESENTS WITH AN IMPLANTABLE OR ATTACHED INCIDENT RESPONSE CONSULTANT: No RADIOLOGY DEPARTMENT: Mammography PERIPHERAL IV DATA: Not applicable SIGNED BY: Drea Mcduffie July 02, 2024 1:09 PM documented in this encounterPromedica Memorial Hospital08-23-2024 NoteHNO ID: [id number] Author: ALIYAH MEDLEY Mammo Tech Service: ? Author Type: Policy Issue Clerk Type: Progress Notes Filed: 07/02/2024 13:10 Note Text: Radiology Service Progress Note PATIENT NAME: Юлия Prasad DATE OF SERVICE: July 02, 2024 TIME: 1:09 PM PATIENT IDENTITY VERIFICATION COMPLETED USING TWO (2) IDENTIFIERS: Name and Date of confirmed by patient verbally. FALL SCREENING: Has the patient had 2 falls in the last year or 1 fall with injury or currently using an Ambulatory Assistive Device (Walker, Cane, Wheelchair, Crutches, etc.)? No PATIENT GENDER DATA: Female. status: : No status: NO. PATIENT RELEVANT IMPLANT DATA REVIEWED: Not Applicable PATIENT PRESENTS WITH AN IMPLANTABLE OR ATTACHED INCIDENT RESPONSE CONSULTANT: No RADIOLOGY DEPARTMENT: Mammography PERIPHERAL IV DATA: Not applicable SIGNED BY: Drea Mcduffie July 02, 2024 1:09 [facility]08-21-2024 NotePatient Outreach (INTMMN) ЮЛИЯ PRASAD Matt ([id number]) 1955 F Date Time Provider Department 06/30/24 HEMANTH CARRANZA During your visit today, we recorded the following information about you: Allergies As of Date: 06/30/2024 Noted Allergy Reaction METRONIDAZOLE 01/25/2014 10 - Anaphylaxis ADHESIVE 04/28/2013 14 - Other: See Comments Comments: redness with bandaids AUGMENTIN (AMOXICILLIN-POT CLAVUL*01/25/2014 14 - Other: See Comments Comments: Thrush/yeast infection CIPROFLOXACIN 01/25/2014 2 - Rash CLINDAMYCIN 10/23/2016 7 - Swelling Comments: throat swelling PENICILLINS 06/09/2012 5 - Intolerance Comments: Yeast infections PROZAC (FLUOXETINE HCL) 10/26/2013 2 - Rash SULFA DYNE 06/09/2012 2 - Rash Date Reviewed: 06/24/2024 Reviewed by: Leann Burton LPN - Fully Assessed Visit Diagnosis:Encounter for screening mammogram for breast cancer [Z12.31] Order(s):[facility] SCREENING W MIGUEL [[id number]] Order #: [id number] FUTURE Prescriptions as of 07/05/2024 - metFORMIN (GLUCOPHAGE) 500 mg tablet Take 1 tablet by mouth two times a day with meals. - ondansetron orally disintegrating (ZOFRAN ODT) 4 mg disintegrating tablet Take 1 tablet by mouth every 8 hours as needed. - dulaglutide (TRULICITY) 1.5 mg/0.5 mL pen injector Inject 1.5 mg subcutaneously one time a week. Inject once per week. Discard Pen After - blood sugar diagnostic (ONETOUCH VERIO TEST STRIPS) test strip Test blood sugar(s) 3 times daily. Dx: Type 2 DM - Controlled E11.9 Insulin: No - meloxicam (MOBIC) 15 mg tablet Take 1 tablet by mouth once daily. - rosuvastatin (CRESTOR) 20 mg tablet Take 1 tablet by mouth daily at bedtime. - clobetasol (TEMOVATE) 0.05 % cream apply to rash on legs and hands twice daily 5 days a week as needed. Apply twice daily as needed, up to 21 days per month. Avoid application to the face, armpits, groin. - albuterol HFA (PROVENTIL HFA, VENTOLIN HFA) 90 mcg/actuation inhaler Inhale 2 Puffs as instructed every 4 hours as needed for wheezing/shortness of breath. - furosemide (LASIX) 20 mg tablet Take 1 tablet by mouth once daily. - pantoprazole DR (PROTONIX) 40 mg tablet Take 1 tablet by mouth once daily. - montelukast (SINGULAIR) 10 mg tablet Take 1 tablet by mouth daily at bedtime. - citalopram (CELEXA) 40 mg tablet Take 1 tablet by mouth once daily. - coenzyme Q10 (COENZYME Q-10) 100 mg cap capsule Take 1 capsule by mouth twice daily. - Cholecalciferol, Vitamin D3, 25 mcg (1,000 unit) cap Take 1 capsule by mouth once daily. - fluticasone-salmeterol (ADVAIR, WIXELA) 250-50 mcg/dose Inhale 1 Puff as instructed twice daily. - blood sugar diagnostic (BLOOD GLUCOSE TEST) test strip Test blood sugar(s) 3 times daily. Dx: Type 2 DM - Controlled E11.9 Insulin: No: True Matrix - Lancets lancets Test blood sugar(s) 3 times daily. Dx: Type 2 DM - Controlled E11.9 Insulin: No True matrix - Blood-Glucose Meter monitoring kit Glucose Meter of Choice - Kit - Dx: Type 2 DM - Controlled E11.9 - COMPOUNDED PRESCRIPTION Tens unit DX: DDD of neck and lumbar spine - aspirin, enteric coated (ASPIRIN, ENTERIC COATED) 81 mg EC tablet Take 81 mg by mouth once daily. - traZODone 100 mg tablet Take 100 mg by mouth daily at bedtime. One or two Problem List As Of Date 06/30/2024 Noted Resolved Hyperlipidemia [E78.5] 03/10/2017 Diverticulitis [K57.92] 11/28/2017 Diabetes mellitus [E11.9] 07/19/2015 Dizziness and giddiness [R42] 08/24/2012 12/05/2017 Neoplasm of uncertain behavior of skin [D48.5] 12/09/2012 11/28/2017 Atypical nevus of back [D22.5] 12/09/2012 Atypical nevus of abdominal wall [D22.5] 12/09/2012 12/05/2017 Actinic keratosis [L57.0] 12/09/2012 Irritated//Inflamed Seborrheic Keratoses [L82.0]12/09/2012 12/05/2017 Actinic skin damage [L57.8] 12/09/2012 Melanocytic nevi of face [D22.30] 12/09/2012 Dermatofibroma of right thigh [D23.71] 12/09/2012 Dermatofibroma of forearm [D23.60] 12/09/2012 Other seborrheic keratosis [L82.1] 12/09/2012 Solar Lentigines [L81.4] 12/09/2012 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/19/2013 GERD (gastroesophageal reflux disease) [K21.9] 05/15/2015 Status post cervical spinal fusion [Z98.1] 05/15/2015 12/05/2017 Depression [F32.A] 05/15/2015 Lung nodules [R91.8] 05/15/2015 03/27/2023 Emphysema of lung (HCC) [J43.9] 05/15/2015 03/26/2021 Hypotension [I95.9] 05/15/2015 07/19/2015 Pill dysphagia [R13.10] 05/17/2015 01/24/2022 Type 2 diabetes mellitus with diabetic neuropat*07/19/2015 Postconcussion syndrome [F07.81] 10/30/2015 01/24/2022 Memory loss [R41.3] 10/30/2015 01/24/2022 BPPV (benign paroxysmal positional vertigo) [H8*11/17/2015 12/05/2017 Cervicalgia [M54.2] 11/17/2015 Family history of ischemic heart disease [Z82.4*03/14/2016 12/05/2017 Squamous cell skin cancer, nasal tip [C44.321] 06/24/2016 Mixed hyperl (more content not included)...[facility]08-19-2024 Telephone encounter Note* Telephone Encounter - Gabbie Tidwell - 06/28/2024 3:57 PM EDT Spoke with patient and scheduled. Gabbie Tidwell [facility]08-19-2024 Miscellaneous Notes* Telephone Encounter - Gabbie Tidwell - 06/28/2024 3:57 PM EDT Spoke with patient and scheduled. Gabbie Tidwell * Telephone Encounter - Leann Burton LPN - 06/28/2024 3:51 PM EDT Spoke with pt. Informed BMBX 1 week after MRI, then OV 1-2 weeks after Biopsy. Call transferred to PSS for scheduling. Leann Burton LPN * Telephone Encounter - Aleja George - 06/28/2024 2:27 PM EDT Patient called in and has been scheduled for all MRI's for 07/29/24 here at our building. Patient stated that she thought was going to wait for the results before schedule the biopsy, is this correct? If not we can call patient and advised and try to get the biopsy and office visit schedule sometimeafter 07/29/24 Aleja Gonzales [facility] * Telephone Encounter - Cristhian Smith DO - 06/25/2024 5:53 PM EDT Please pend orders for MRI cervical, thoracic and lumbar spine with and without contrast as well asMRI Ortho pelvis with and without contrast. * Telephone Encounter - Monika Vila - 06/24/2024 10:44 AM EDT Check out comments: MRIs when able. Bone marrow biopsy about week after MRIs. CBC/Troponin/BNP day of biopsy. OV about 1-2 weeks after biopsy. Please file MRI orders for scheduling purposes Monika Vila documented in this encounterPromedica [facility]08-19-2024 Telephone encounter Note * Telephone Encounter - Leann Burton LPN - 06/28/2024 3:51 PM EDT Spoke with pt. Informed BMBX 1 week after MRI, then OV 1-2 weeks after Biopsy. Call transferred to PSS for scheduling. Leann Burton LPN [facility]08-19-2024 Telephone encounter Note* Telephone Encounter - Aleja George - 06/28/2024 2:27 PM EDT Patient called in and has been scheduled for all MRI's for 07/29/24 here at our building. Patient stated that she thought was going to wait for the results before schedule the biopsy, is this correct? If not we can call patient and advised and try to get the biopsy and office visit schedule sometimeafter 07/29/24 Aleja Gonzales [facility]08-16-2024 Telephone encounter Note* Telephone Encounter - Cristhian Smtih DO - 06/25/2024 5:53 PM EDT Please pend orders for MRI cervical, thoracic and lumbar spine with and without contrast as well asMRI Ortho pelvis with and without contrast. [facility]08-16-20[facility] Telephone encounter Note* Telephone Encounter - Hemanth Carranza MD - 06/25/2024 8:05 AM EDT I did not see that she had gone outside of the practice. She has an appointment with Sahra to establish care in July. If she is not going to be establishing with me, then this would need to be cancelled. [facility] Work Phone: 1(565) 334-566808-16-2024 Miscellaneous Notes* Telephone Encounter - Hemanth Carranza MD - 06/25/2024 8:05 AM EDT I did not see that she had gone outside of the practice. She has an appointment with Sahra to establish care in July. If she is not going to be establishing with me, then this would need to be cancelled. * Telephone Encounter - Annmarie Sutton APRN.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 - 06/24/2024 5:02 PM EDT Got it. Thank you for letting me know. Probably would not be establishing with Dr. Carranza either. * Telephone Encounter - Beatrice Luna MA - 06/24/2024 4:[address] Petersen declined accepting her back as a patient. She transferred out of the practice. See the Saved[employer] message 06/08/24. I am no allowed to re-establish her with Dr Petersen. She even signed a request of records and they were sent to [facility]. * Telephone Encounter - Hemanth Carranza MD - 06/24/2024 1:41 PM EDT I am confused by this message. It looks like she saw Sahra once for acute issue and has been seeingDr. Petersen and Maciej regularly. Did she requesting a new PCP at one point? * Telephone Encounter - Jeremiah Galindo LPN - 06/08/2024 9:07 AM EDT Duplicate request. See other message regarding re-establishing care. Jeremiah Galindo LPN documented in this encounterPromedica [facility] Hospital08-15-2024 Telephone encounter Note * Telephone Encounter - Annmarie Sutton APRN.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 - 06/24/2024 5:02 PM EDT Got it. Thank you for letting me know. Probably would not be establishing with Dr. Carranza either. [facility] Work Phone: 1(992) 317-260208-15-2024 Telephone encounter Note* Telephone Encounter - Beatrice Luna MA - 06/24/2024 4:[address] Petersen declined accepting her back as a patient. She transferred out of the practice. See the [employer]aved[employer] message 06/08/24. I am no allowed to re-establish her with Dr Petersen. She even signed a request of records and they were sent to [facility]. [facility]08-15-2024 Telephone encounter Note* Telephone Encounter - Hemanth Carranza MD - 06/24/2024 1:41 PM EDT I am confused by this message. It looks like she saw Sahra once for acute issue and has been seeingDr. Petersen and Maciej regularly. Did she requesting a new PCP at one point? [facility]08-15-2024 History of Present illness Narrative* Rosie Walsh, RT(R) - 06/24/2024 10:50 AM EDT Radiology Service Progress Note PATIENT NAME: Юлия Prasad DATE OF SERVICE: June 24, 2024 TIME: 12:54 PM PATIENT IDENTITY VERIFICATION COMPLETED USING TWO (2) IDENTIFIERS: Name and Date of confirmedby patient verbally. FALL SCREENING: Has the patient had 2 falls in the last year or 1 fall with injury or currently using an Ambulatory Assistive Device (Walker, Cane, Wheelchair, Crutches, etc.)? No PATIENT GENDER DATA: Female. status: : No status: NO. PATIENT RELEVANT IMPLANT DATA REVIEWED: Not Applicable PATIENT PRESENTS WITH AN IMPLANTABLE OR ATTACHED INCIDENT RESPONSE CONSULTANT: No RADIOLOGY DEPARTMENT: General X-ray: Exam(s) Completed: Bone Survey PERIPHERAL IV DATA: Not applicable SIGNED BY: RT Tiara(R) June 24, 2024 12:54 PM documented in this encounterPromedica Memorial Hospital08-15-2024 NoteHNO ID: [id number] Author: ROSIE WALSH RT(R) Service: ? Author Type: Technologist Type: Progress Notes Filed: 06/24/2024 12:54 Note Text: Radiology Service Progress Note PATIENT NAME: Юлия Prasad DATE OF SERVICE: June 24, 2024 TIME: 12:54 PM PATIENT IDENTITY VERIFICATION COMPLETED USING TWO (2) IDENTIFIERS: Name and Date of confirmed by patient verbally. FALL SCREENING: Has the patient had 2 falls in the last year or 1 fall with injury or currently using an Ambulatory Assistive Device (Walker, Cane, Wheelchair, Crutches, etc.)? No PATIENT GENDER DATA: Female. status: : No status: NO. PATIENT RELEVANT IMPLANT DATA REVIEWED: Not Applicable PATIENT PRESENTS WITH AN IMPLANTABLE OR ATTACHED INCIDENT RESPONSE CONSULTANT: No RADIOLOGY DEPARTMENT: General X-ray: Exam(s) Completed: Bone Survey PERIPHERAL IV DATA: Not applicable SIGNED BY: RT Tiara(R) June 24, 2024 12:54 [facility]08-15-2024 Telephone encounter Note* Telephone Encounter - Monika Vila - 06/24/2024 10:44 AM EDT Check out comments: MRIs when able. Bone marrow biopsy about week after MRIs. CBC/Troponin/BNP day of biopsy. OV about 1-2 weeks after biopsy. Please file MRI orders for scheduling purposes Monika Vila [facility]08-15-2024 Instructions* Patient Instructions* Cristhian Smith DO - 06/24/2024 10:36 AM EDT Hold aspirin beginning 5 days prior to bone marrow biopsy. Can resume day after biopsy. documented in this encounterPromedica Memorial Hospital08-15-2024 NoteHNO ID: [id number] Author: CRISTHIAN SMITH DO Service: ? Author Type: Physician Type: Progress Notes Filed: 06/24/2024 11:19 Note Text: Hematologic problem(s): 1) Possible MGUS. HPI: The patient is a 68-year-old female with a past medical history as outlined below. Establish with new PCP prior to referral here. Had lab work done through [facility] that showed an increase in serum globulin level. Protein electrophoresis was ordered and demonstrated a faint band in the gamma region suspicious for monoclonal gammopathy. Further workup was recommended. Was also found to have low serum iron and iron saturation. Chemistry significant for total serum protein of 8.2 g/dL. Albumin 4.5 g/dL. Serum creatinine 1.03 mg/dL. CBC demonstrated hemoglobin 12.8 g/dL. Total white count and platelet count normal. Spot urine negative for protein by dipstick analysis. Has had mild increase in serum protein in the past. No MP by electrophoresis on 3 occasions here. Per initial office visit: Fatigued. Pain in both tarango bones for about a month. Restless legs at night. Previous bone donor site from left iliac bone to do cervical graft hurts all the time. Bones in feet hurt. They feel weak, feel like feet don't want to work when I stand up. Hands hurt. ANDRES that fluctuates. Most recent EGD 03/14/2022 AG. Report in notes. C-scope 12/2017. Hyperplastic polyp. Was on oral iron years ago. Bad constipation. Presents for ongoing hematologic management. Interim history: Continues to get cramping in her feet and anterior shins. Always fatigued. PAST MEDICAL HISTORY No date: Back pain Comment: on SSI for this No date: Carpal tunnel 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 No date: Depression No date: Diabetes mellitus (HCC) No date: Diverticulitis No date: Dysphagia 05/15/2015: Emphysema of lung (HCC) 08/07/2022: Essential hypertension No date: GI bleed 04/2016: History of squamous cell carcinoma Comment: Right nasal tip No date: Hyperlipidemia No date: Lung nodules 03/10/2017: PAD (peripheral artery disease) ([facility]) Comment: 02/06/2022 PVR ank/jackson/toe bilat: RIGHT SIDE JITENDRA: 1.19; TBI: 0.84, WNL at rest LEFT SIDE: JITENDRA: 1.19; TBI: 0.96, WNL at rest 12/08/2017: Pulmonary HTN ([facility]) Comment: mild 06/24/2016: Squamous cell skin cancer, nasal tip 03/28/2017: Tobacco abuse PAST SURGICAL HISTORY 09/2004: ADDTL NECK SPINE FUSION 2001: CHOLECYSTECTOMY 1983: COLONOSCOPY 09/01/2012: COLONOSCOPY FLX DX W/COLLJ SPEC WHEN PFRMD No date: COLONOSCOPY FLX DX W/COLLJ SPEC WHEN PFRMD Comment: Done in [place] unable to obtain 11/17/2013: COLONOSCOPY FLX DX W/COLLJ SPEC WHEN PFRMD Comment: Colonoscopy 12/24/2017: COLONOSCOPY FLX DX W/COLLJ SPEC WHEN PFRMD Comment: Colonoscopy 06/04/2013: ESOPHAGOGASTRODUODENOSCOPY TRANSORAL DIAGNOSTIC Comment: EGD 05/17/2015: ESOPHAGOGASTRODUODENOSCOPY TRANSORAL DIAGNOSTIC Comment: EGD 12/24/2017: ESOPHAGOGASTRODUODENOSCOPY TRANSORAL DIAGNOSTIC Comment: EGD 04/12/2024: FNA (FINE NEEDLE ASPIRATION) Comment: right thyroid 1984: HYSTERECTOMY HX Comment: Pelvic pain AND DUB 08/27/2018: NEUROPLASTY AND/TRANSPOS MEDIAN NRV CARPAL TUNNE; Bilateral Comment: Bilateral carpal tunnel release 1985: OOPHORECTOMY PARTIAL/TOTAL UNI/BI Comment: Bilateral No date: PAST SURGICAL HISTORY OF Comment: removed tissue nose for SCC 10/13/2017: PAST SURGICAL HISTORY OF Comment: Excision nasal mass, Dr Juarez Harris No date: REMOVE TONSIL AND ADENOI UNDER AGE 14 2001: SLING OPER STRES INCONTINENCE ALLERGIES Allergen Reactions Metronidazole Anaphylaxis Adhesive Other: See Comments redness with bandaids Augmentin [Amoxicil* Other: See Comments Thrush/yeast infection Ciprofloxacin Rash Clindamycin Swelling throat swelling Penicillins Intolerance Yeast infections Prozac [Fluoxetine * Rash Sulfa Dyne Rash Current Outpatient Medications Medication Sig metFORMIN (GLUCOPHAGE) 500 mg tablet Take 1 tablet by mouth two times a day with meals. ondansetron orally disintegrating (ZOFRAN ODT) 4 mg disintegrating tablet Take 1 tablet by mouth every 8 hours as needed. dulaglutide (TRULICITY) 1.5 mg/0.5 mL pen injector Inject 1.5 mg subcutaneously one time a week. Inject once per week. Discard Pen After blood sugar diagnostic (ITDatabaseUCH VERIO TEST STRIPS) test strip Test blood sugar(s) 3 times daily. Dx: Type 2 DM - Controlled E11.9 Insulin: No meloxicam (MOBIC) 15 mg tablet Take 1 tablet by mouth once daily. rosuvastatin (CRESTOR) 20 mg tablet Take 1 tablet by mouth daily at bedtime. clobetasol (TEMOVATE) 0.05 % cream apply to rash on legs and hands twice daily 5 days a week as needed. Apply twice daily as needed, up to 21 days per month. Avoid application to the face, armpits, groin. albuterol HFA (PROVENTIL HFA, VENTOLIN HFA) 90 mcg/actuation inhaler Inhale 2 Puffs as instructed every 4 hours as needed for wheezing/shortness of breath. furosemide (LASI (more content not included)...[facility] 06-24-2024 History of Present illness Narrative* Cristhian Smith, - 06/24/2024 10:07 AM EDT Hematologic problem(s): 1) Possible MGUS. HPI: The patient is a 68-year-old female with a past medical history as outlined below. Establish with new PCP prior to referral here. Had lab work done through [facility] that showed an increase in serum globulin level. Protein electrophoresis was ordered and demonstrated a faint band in the gamma region suspicious for monoclonal gammopathy. Further workup was recommended. Was also found to have low serum iron and iron saturation. Chemistry significant for total serum protein of 8.2 g/dL. Albumin 4.5 g/dL. Serum creatinine 1.03 mg/dL. CBC demonstrated hemoglobin 12.8 g/dL. Total white count and platelet count normal. Spot urine negative for protein by dipstick analysis. Has had mild increase in serum protein in the past. No MP by electrophoresis on 3 occasions here. Per initial office visit: Fatigued. Pain in both tarango bones for about a month. Restless legs at night. Previous bone donor site from left iliac bone to do cervical graft hurts all the time. Bones in feet hurt. They feel weak, feel like feet don't want to work when I stand up. Hands hurt. ANDRES that fluctuates. Most recent EGD 03/14/2022 AG. Report in notes. C-scope 12/2017. Hyperplastic polyp. Was on oral iron years ago. Bad constipation. Presents for ongoing hematologic management. Interim history: Continues to get cramping in her feet and anterior shins. Always fatigued. PAST MEDICAL HISTORY No date: Back pain Comment: on SSI for this No date: Carpal tunnel 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 No date: Depression No date: Diabetes mellitus (HCC) No date: Diverticulitis No date: Dysphagia 05/15/2015: Emphysema of lung (HCC) 08/07/2022: Essential hypertension No date: GI bleed 04/2016: History of squamous cell carcinoma Comment: Right nasal tip No date: Hyperlipidemia No date: Lung nodules 03/10/2017: PAD (peripheral artery disease) (HCC) Comment: 02/06/2022 PVR ank/jackson/toe bilat: RIGHT SIDE JITENDRA: 1.19; TBI: 0.84, WNL at rest LEFT SIDE: JITENDRA: 1.19; TBI: 0.96, WNL at rest 12/08/2017: Pulmonary HTN (HCC) Comment: mild 06/24/2016: Squamous cell skin cancer, nasal tip 03/28/2017: Tobacco abuse PAST SURGICAL HISTORY 09/2004: ADDTL NECK SPINE FUSION 2000: CHOLECYSTECTOMY 1983: COLONOSCOPY 09/01/2012: COLONOSCOPY FLX DX W/COLLJ SPEC WHEN PFRMD No date: COLONOSCOPY FLX DX W/COLLJ SPEC WHEN PFRMD Comment: Done in [place] unable to obtain 11/17/2013: COLONOSCOPY FLX DX W/COLLJ SPEC WHEN PFRMD Comment: Colonoscopy 12/24/2017: COLONOSCOPY FLX DX W/COLLJ SPEC WHEN PFRMD Comment: Colonoscopy 06/04/2013: ESOPHAGOGASTRODUODENOSCOPY TRANSORAL DIAGNOSTIC Comment: EGD 05/17/2015: ESOPHAGOGASTRODUODENOSCOPY TRANSORAL DIAGNOSTIC Comment: EGD 12/24/2017: ESOPHAGOGASTRODUODENOSCOPY TRANSORAL DIAGNOSTIC Comment: EGD 04/12/2024: FNA (FINE NEEDLE ASPIRATION) Comment: right thyroid 1984: HYSTERECTOMY HX Comment: Pelvic pain & DUB 08/27/2018: NEUROPLASTY &/TRANSPOS MEDIAN NRV CARPAL TUNNE; Bilateral Comment: Bilateral carpal tunnel release 1985: OOPHORECTOMY PARTIAL/TOTAL UNI/BI Comment: Bilateral No date: PAST SURGICAL HISTORY OF Comment: removed tissue nose for SCC 10/13/2017: PAST SURGICAL HISTORY OF Comment: Excision nasal mass, Dr Juarez Harris No date: REMOVE TONSIL AND ADENOI UNDER AGE 14 2001: SLING OPER STRES INCONTINENCE ALLERGIES Allergen Reactions Metronidazole Anaphylaxis Adhesive Other: See Comments redness with bandaids Augmentin [Amoxicil* Other: See Comments Thrush/yeast infection Ciprofloxacin Rash Clindamycin Swelling throat swelling Penicillins Intolerance Yeast infections Prozac [Fluoxetine * Rash Sulfa Dyne Rash Current Outpatient Medications Medication Sig metFORMIN (GLUCOPHAGE) 500 mg tablet Take 1 tablet by mouth two times a day with meals. ondansetron orally disintegrating (ZOFRAN ODT) 4 mg disintegrating tablet Take 1 tablet by mouth every 8 hours as needed. dulaglutide (TRULICITY) 1.5 mg/0.5 mL pen injector Inject 1.5 mg subcutaneously one time a week. Inject once per week. Discard Pen After blood sugar diagnostic (ONETOUCH VERIO TEST STRIPS) test strip Test blood sugar(s) 3 times daily. Dx: Type 2 DM - Controlled E11.9 Insulin: No meloxicam (MOBIC) 15 mg tablet Take 1 tablet by mouth once daily. rosuvastatin (CRESTOR) 20 mg tablet Take 1 tablet by mouth daily at bedtime. clobetasol (TEMOVATE) 0.05 % cream apply to rash on legs and hands twice daily 5 days a week as needed. Apply twice daily as needed, up to 21 days per month. Avoid application to the face, armpits, groin. albuterol HFA (PROVENTIL HFA, VENTOLIN HFA) 90 [...] Take 1 capsule by mouth twice daily. (Patient taking differently: Take 100 mg by mouth once daily.) Cholecalciferol, Vitamin D3, 25 mcg (1,000 unit) cap Take 1 capsule by mouth once daily. fluticasone-salmeterol (ADVAIR, WIXELA) 250-50 mcg/dose Inhale 1 Puff as instructed twice daily. blood sugar diagnostic (BLOOD GLUCOSE TEST) test strip Test blood sugar(s) 3 times daily. Dx: Type 2 DM - Controlled E11.9 Insulin: No: True Matrix Lancets lancets Test blood sugar(s) 3 times daily. Dx: Type 2 DM - Controlled E11.9 Insulin: No True matrix Blood-Glucose Meter monitoring kit Glucose Meter of Choice - Kit - Dx: Type 2 DM - Controlled E11.9 COMPOUNDED PRESCRIPTION Tens unit DX: DDD of neck and lumbar spine aspirin, enteric coated (ASPIRIN, ENTERIC COATED) 81 mg EC tablet Take 81 mg by mouth once daily. traZODone 100 mg tablet Take 100 mg by mouth daily at bedtime. One or two fluticasone-salmeterol (ADVAIR DISKUS) 250-50 mcg/dose inhaler Inhale 1 Puff as instructed two times a day. RINSE AND GARGLE MOUTH WITH WATER AFTER EACH USE. (Patient not taking: Reported on 06/24/2024) Fluorouracil (EFUDEX) 5 % cream Apply to affected areas twice daily for 2-4 weeks or until red blistering reaction occurs. buPROPion XL (WELLBUTRIN XL) 150 mg 24 hr tablet Take 150 mg by mouth once daily. (Patient not taking: Reported on 10/14/2023) busPIRone 5 mg tablet Take 5 mg by mouth twice daily. (Patient not taking: Reported on 10/14/2023) No current facility-administered medications for this visit. Social History Tobacco Use Smoking status: Every Day Packs/day: 0.50 Years: 47.00 Additional pack years: 0.00 Total pack years: 23.50 Types: Cigarettes Start date: 1975 Smokeless tobacco: Never Tobacco comments: Former one ppd smoker Vaping Use Vaping Use: Never used Substance Use Topics Alcohol use: Not Currently Drug use: Not Currently Types: Marijuana Family History Problem Relation Age of Onset Colon Polyps Mother COPD Mother Colon Cancer Mother Colon Polyps Father Heart Father Colon Polyps Sister Hypertension Sister Hypertension Sister Hypertension Sister Thyroid Sister Colon Polyps Brother other (Parkinsonism [Other]) Brother Colon Polyps Brother Ischemic Heart Disease Brother Diabetes Maternal Grandfather ROS: Constitutional: No fever. No drenching night sweats. Normal appetite. No unexplained weight loss. No significant fatigue. Neuro: No recent ERVIN, vertigo, dizziness or imbalance. No symptoms of sensory neuropathy. HEENT: No recent change in voice, vision or hearing. Resp: No cough, wheeze of hemoptysis. No shortness of breath at rest. No ANDRES. CVS: No exertional chest pain, PND or orthopnea. No extremity swelling/edema. No symptoms of claudication. No painful or tender varicose veins. GI: No dysgeusia. No symptoms of stomatitis. No dysphagia or odynophagia. No reflux, n/v, change inbowel habits. No abdominal pain, bloating or distension. No black or bloody stools. : No dysuria or gross hematuria. No symptoms of bladder outlet obstruction. Endo: No hot flashes. No polyuria or polydipsia. No heat or cold intolerance. Musculoskeletal: No bone, back, joint and muscular pain. Derm: No current rash. No history of jaundice. No diffuse pruritis. Heme: No unusual bleeding and unexplained bruising. Psych: Normal mood. PHYSICAL EXAM: Vitals: Blood pressure 127/74, pulse 109, temperature 36.8 C (98.3 F), weight 61.7 kg (136 lb), SpO2 99%. Well-appearing and in no acute distress. EYES: Sclerae are anicteric bilaterally. LABS: Latest Ref Rng 06/02/2024 WBC 3.70 - 11.00 k/uL 7.40 RBC 3.90 - 5.20 m/uL 4.10 Hemoglobin 11.5 - 15.5 g/dL 11.9 Hematocrit 36.0 - 46.0 % 36.1 MCV 80.0 - 100.0 fL 88.0 MCH 26.0 - 34.0 pg 29.0 MCHC 30.5 - 36.0 g/dL 33.0 RDW-CV 11.5 - 15.0 % 13.3 Platelet Count 150 - 400 k/uL 232 MPV 9.0 - 12.7 fL 9.7 Neut% % 47.4 Abs Neut (ANC) 1.45 - 7.50 k/uL 3.50 Lymph% % 45.1 Abs Lymph 1.00 - 4.00 k/uL 3.34 Bollinger% % 5.4 Abs Bollinger <0.87 k/uL 0.40 Eosin% % 1.5 Abs Eosin <0.46 k/uL 0.11 Baso% % 0.5 Abs Baso <0.11 k/uL 0.04 Immature Gran % % 0.1 IMMATURE GRANS (ABS) <0.10 k/uL <0.03 NRBC /100 WBC 0.0 Absolute nRBC <0.01 k/uL <0.01 DTYPE Auto Protein, Total 6.3 - 8.0 g/dL 7.9 Albumin 3.9 - 4.9 g/dL 4.8 Calcium 8.5 - 10.2 mg/dL 9.8 Bilirubin, Total 0.2 - 1.3 mg/dL 0.3 Alkaline Phosphatase 34 - 123 U/L 29 (L) AST 13 - 35 U/L 21 ALT 7 - 38 U/L 19 Glucose 74 - 99 mg/dL 132 (H) BUN 7 - 21 mg/dL 8 Creatinine 0.58 - 0.96 mg/dL 0.76 Sodium 136 - 144 mmol/L 135 (L) Potassium 3.7 - 5.1 mmol/L 3.9 Chloride 98 - 107 mmol/L 99 CO2 22 - 30 mmol/L 24 Anion Gap 8 - 15 mmol/L 12 eGFR >=60 mL/min/1.73m 87 Iron 41 - 186 ug/dL 64 TIBC 232 - 386 ug/dL 365 Transferrin Saturation 15.0 - 57.0 % 17.5 B2 Microglobulin <3.1 mg/L 2.3 Uric Acid 2.5 - 6.6 mg/dL 5.4 LD 135 - 214 U/L 163 Ferritin 14.7 - 205.1 ng/mL 19.9 Latest Ref Rn 06/02/2024 Albumin 3.43 - 5.41 g/dL 4.78 Alpha 1 Globulin 0.18 - 0.43 g/dL 0.29 Alpha 2 Globulin 0.42 - 0.98 g/dL 0.78 Beta Globulin 0.61 - 1.17 g/dL 0.95 Gamma Globulin 0.53 - 1.51 g/dL 1.50 Interpretation (Prot Electro) No definitive M protein is identified on protein electrophoresis. An atypical region of restricted mobility is identified on protein electrophoresis. ! Interpretation Comment for Protein Electrophoresis The atypical region is relatively poorly definedand may represent an unusual presentation of polyclonal immunoglobulins, but cannot rule out the presence of a low level M protein. If clinically indicated, monoclonal protein analysis and serum freelight chain analysis are suggested to evaluate further for monoclonal gammopathy. M-Protein Location -- M-Protein Concentration <=0.00 g/dL 0.00 SPE Staff Review Reviewed by Malachi Byrne MD, Ph.D ([id number]) Protein, Total 6.3 - 8.0 g/dL 8.3 (H) Latest Ref Rn 06/02/2024 IgG 700 - 1,600 mg/dL 1,624 (H) IgA 70 - 400 mg/dL 279 IgM 40 - 230 mg/dL 139 MPA Result No M protein is identified. A poorly defined region of restricted mobility is present that may represent an M protein. ! Interpretation (MPA) Poorly defined region of restricted mobility in the lambda mery. Pattern is less well defined or fainter than typically seen in monoclonal gammopathy. This could represent eitheran atypical presentation of polyclonal immunoglobulins or the presence of a low level lambda containing monoclonal gammopathy. If clinically indicated, urine monoclonal protein analysis and serum free light chain measurements are recommended to evaluate further for monoclonal gammopathy. Clinical correlation is necessary. Staff Review (MPA) Reviewed by Malachi Byrne MD, Ph.D ([id number]) [place] Free, Serum 3.3 - 19.4 mg/L 39.2 (H) Lambda Free, Serum 5.7 - 26.3 mg/L 20.5 K/L Ratio, Serum 0.26 - 1.65 1.91 (H) Latest Ref Rng 06/07/2024 Albumin %, 24 Hr Urine % 44.90 Alpha 1 Globulin %, 24 Hr Ur % 4.12 Alpha 2 Globulin %, 24 Hr Ur % 19.19 Beta Globulin %, 24 Hr Ur % 15.41 Gamma Globulin %, 24 Hr Ur % 16.37 Interpretation ([id number]) No definitive M protein is identified on protein electrophoresis. No definitive M protein is identified on protein electrophoresis. M Lalo Quant, 24 Hr Urine g/24hr 0.00 Staff Review ([facility]) Reviewed by Ileana Marina M.D. Interpretation Comment for Protein Electrophoresis The atypical region is relatively poorly definedand may represent an unusual presentation of polyclonal immunoglobulins, but cannot rule out the presence of a low level M protein. If clinically indicated, monoclonal protein analysis and serum freelight chain analysis are suggested to evaluate further for monoclonal gammopathy. Protein, Timed Urine <0.15 g/24 Hr 0.38 (H) Period hr 24 Urine Volume 24 hour mL 3,200 Latest Ref Rng 06/07/2024 Result ([facility]) No M protein is identified. A poorly defined region of restricted mobility is presentthat may represent an M protein. ! Interpretation (PA) Poorly defined region of restricted mobility in IgG and lambda lanes. Patternis less well defined or fainter than typically seen in monoclonal gammopathy. This could represent either an atypical presentation of polyclonal immunoglobulins or the presence of a low level IgG lambda monoclonal gammopathy. If clinically indicated, serum monoclonal protein analysis and serum freelight chain measurements are recommended to evaluate further for monoclonal gammopathy. Clinical correlation is necessary. Staff Review ([facility]) Reviewed by Ileana Marina M.D. ASSESSMENT/PLAN: (D47.2) Monoclonal gammopathy (primary encounter diagnosis) Assessment: -Patient is a 68-year-old female with potential very low level IgG lambda MP identified by immunofixation of 24-hour urine collection. -Reviewed her lab work in detail. -Serum creatinine improved compared to a year ago. No hypercalcemia. -History of osteopenia. -History Iron deficiency. Intolerant to oral iron in the past. Longstanding PPI use. Reviewed relevant lab work. Iron low normal. No anemia. -Consented for biopsy. Plan: -Monitor for anemia and iron deficiency. -MRI spine and pelvis. -Bone survey today. -Bone marrow biopsy. -Provided printed instructions to hold aspirin 5 days prior to bone marrow biopsy. -High-sensitivity troponin and BNP at time of biopsy. If abnormal then echocardiogram and consider cardiac MRI based on results of echocardiogram. Portions of this documentation were copied and pasted from previous office visit notes in order to provide a cohesive continuity of the history. The note has been reviewed and edited and updated as necessary. I spent a total of 30 minutes on the date of the service which included preparing to see the patient, [id number] patient care, completing clinical documentation, obtaining and/or reviewing separately obtained history, performing a medically appropriate examination, counseling and educating the pat ient/family/caregiver, ordering medications, tests, or procedures, communicating with other HCPs (not separately reported), and communicating results to the patient/family/caregiver. Cristhian Smith DO * Leann Burton LPN - 06/24/2024 9:42 AM EDT Est. Pt, discuss recent labs done 06/02 Leann Burton LPN [facility] NoteHNO ID: [id number] Author: LEANN BURTON LPN Service: ? Author Type: LICENSED NURSE Type: Progress Notes Filed: 06/24/2024 11:19 Note Text: Est. Pt, discuss recent labs done 06/02 [facility] Tele[facility] encounter Note * Telephone Encounter - Alicia Tidwell RN - 06/21/2024 12:43 PM EDT Spoke to provider's office and received recommendation to review with Dr. Smith and if not willing to address it then would recommend ER or EC. Notified patient who verbalizes understanding. Alicia Tidwell RN [facility]08-12-2024 Miscellaneous Notes* Telephone Encounter - Alicia Tidwell RN - 06/21/2024 12:43 PM EDT Spoke to provider's office and received recommendation to review with Dr. Smith and if not willing to address it then would recommend ER or EC. Notified patient who verbalizes understanding. Alicia Tidwell RN * Telephone Encounter - Alicia Tidwell RN - 06/21/2024 11:33 AM EDT Patient calls to schedule an appointment with Dr. Carranza for bilateral tarango pain and ankle cramping. Noted she isn't establishing until 09/01/2024. Recommended she contact Dr. Raymond's office that is listed as her current PCP. Patient reports she is unable to do that as he is no longer her PCP as he wasn't responsive to her requests. Reviewed notes patient has been having symptoms as reported in notes from Dr. Smith. 06/02/2024. Has follow up 06/24/2024. Recommend continuing to follow with Luis. 06/02/[address] Smith Fatigued. Pain in both tarango bones for about a month. Restless legs at night. Previous bone donor site from left iliac bone to do cervical graft hurts all the time. Bones in feet hurt. They feel weak, feel like feet don't want to work when I stand up. Hands hurt. ANDRES that fluctuates. ASSESSMENT/PLAN: (D47.2) Monoclonal gammopathy (primary encounter diagnosis) Assessment: -Patient is a 68-year-old female recently found to have a possible monoclonal protein on serum protein electrophoresis. -History of osteopenia. -Discussed stepwise workup. If has clear evidence of monoclonal gammopathy then MRI and decide on next steps in workup including potential for bone marrow biopsy. -Iron deficiency. Intolerant to oral iron in the past. Longstanding PPI use. Plan: -Labs today to include CBC, chemistry panel, LDH, beta-2 microglobulin, LDH, protein electrophoresis and immunofixation of serum and a 24-hour urine specimen. -Check iron. May require parenteral iron due to mcc PPI use. -OV following above. Potential MRI an bone marrow biopsy pending above Please review and advise, Alicia Tidwell RN [place] [id number] Telephone encounter Note * Telephone Encounter - Alicia Tidwell RN - 06/21/2024 11:33 AM EDT Patient calls to schedule an appointment with Dr. Carranza for bilateral tarango pain and ankle cramping. Noted she isn't establishing until 09/01/2024. Recommended she contact Dr. Raymond's office that is listed as her current PCP. Patient reports she is unable to do that as he is no longer her PCP as he wasn't responsive to her requests. Reviewed notes patient has been having symptoms as reported in notes from Dr. Smith. 06/02/2024. Has follow up 06/24/2024. Recommend continuing to follow with Luis. 06/02/[address] Smith Fatigued. Pain in both tarango bones for about a month. Restless legs at night. Previous bone donor site from left iliac bone to do cervical graft hurts all the time. Bones in feet hurt. They feel weak, feel like feet don't want to work when I stand up. Hands hurt. ANDRES that fluctuates. ASSESSMENT/PLAN: (D47.2) Monoclonal gammopathy (primary encounter diagnosis) Assessment: -Patient is a 68-year-old female recently found to have a possible monoclonal protein on serum protein electrophoresis. -History of osteopenia. -Discussed stepwise workup. If has clear evidence of monoclonal gammopathy then MRI and decide on next steps in workup including potential for bone marrow biopsy. -Iron deficiency. Intolerant to oral iron in the past. Longstanding PPI use. Plan: -Labs today to include CBC, chemistry panel, LDH, beta-2 microglobulin, LDH, protein electrophoresis and immunofixation of serum and a 24-hour urine specimen. -Check iron. 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 -OV following above. Potential MRI an bone marrow biopsy pending above Please review and advise, Alicia Tidwell RN [facility]07-[facility] Telephone encounter Note* Telephone Encounter - Rakel Shore MA - 06/08/2024 9:35 AM EDT Pt notified of message below from Provider. Made her aware of Provider who is accepting pt's. Rakel Shore MA [facility]07-30-2024 Miscellaneous Notes* Telephone Encounter - Rakel Shore MA - 06/08/2024 9:35 AM EDT Pt notified of message below from Provider. Made her aware of Provider who is accepting pt's. Rakel Shore MA * Telephone Encounter - Clarice Petersen MD - 06/08/2024 9:29 AM EDT Yes, she actually has been seeing [facility] physicians and transferred her records out. * Telephone Encounter - Amanda Rose MA - 06/08/2024 9:24 AM EDT She last saw Maciej 6 months ago and saw you on 02/17/23. Is this technically re-establishing? Amanda Rose MA * Telephone Encounter - Clarice Petersen MD - 06/08/2024 9:23 AM EDT I think Dr. Carranza is currently accepting patients if she wants t re establish with the Clinic. * Telephone Encounter - Rakel Shore MA - 06/08/2024 8:48 AM EDT Routing to Dr. Petersen's Team to advise but believe Dr. Petersen's practice is closed. Pt left [facility] and went and re-established with an outside Provider. Rakel Shore MA documented in this encounterProm[facility]07-30-[facility]24 Telephone encounter Note * Telephone Encounter - Clarice Petersen MD - 06/08/2024 9:29 AM EDT Yes, she actually has been seeing [facility] physicians and transferred her records out. [facility] Telephone encounter Note* Telephone Encounter - Amanda Rose MA - 06/08/2024 9:24 AM EDT She last saw Maciej 6 months ago and saw you on 02/17/23. Is this technically re-establishing? Amanda Rose MA [facility]07-30-[facility] Telephone encounter Note* Telephone Encounter - Clarice Petersen MD - 06/08/2024 9:23 AM EDT I think Dr. Carranza is currently accepting patients if she wants t re establish with the Clinic. [facility] Telephone encounter Note* Telephone Encounter - Jeremiah Galindo LPN - 06/08/2024 9:07 AM EDT Duplicate request. See other [facility] message regarding re-establishing care. Jeremiah Galindo LPN [facility]07-30-[facility] Telephone encounter Note* Telephone Encounter - Rakel Shore MA - 06/08/2024 8:48 AM EDT Routing to Dr. Petersen's Team to advise but believe Dr. Petersen's practice is closed. Pt left [facility] and went and re-established with an outside Provider. Rakel Shore MA [facility]07-29-2024 Telephone encounter Note* Telephone Encounter - Cristhian Smith DO - 06/07/2024 1:00 PM EDT Okay. Thanks. Just wanted to be sure it wasn't forgotten. Cristhian Smith DO [facility] Work Phone: [phone]) 824-554707-29-2024 Miscellaneous Notes* Telephone Encounter - Cristhian Smith DO - 06/07/2024 1:00 PM EDT Okay. Thanks. Just wanted to be sure it wasn't forgotten. Cristhian Smith DO * Telephone Encounter - Leann Burton LPN - 06/07/2024 9:23 AM EDT Poke with pt. Given information concerning lab results, Started the urine collection this morning 06/07 Does plan on keeping F/U OV Leann Burton LPN * Telephone Encounter - Cristhian Smith DO - 06/06/2024 3:47 PM EDT Can let her know labs so far do show anything worrisome. 24 hour urine collection in process? Keep OV. Cristhian Smith DO documented [facility] Telephone encounter Note * Telephone Encounter - Leann Burton LPN - 06/07/2024 9:23 AM EDT Poke with pt. Given information concerning lab results, Started the urine collection this morning 06/07 Does plan on keeping F/U OV Leann Burton LPN [facility]07-28-2024 Telephone encounter Note* Telephone Encounter - Cristhian Smith DO - 06/06/2024 3:47 PM EDT Can let her know labs so far do show anything worrisome. 24 hour urine collection in process? Keep OV. Cristhian Smith DO [facility]07-24-[facility]24 NoteHNO ID: [id number] Author: CRISTHIAN SMITH DO Service: ? Author Type: Physician Type: Progress Notes Filed: 06/02/2024 09:52 Note Text: Portions of this documentation were copied and pasted from previous office visit notes in order to provide a cohesive continuity of the history. The note has been reviewed and edited and updated as necessary. HPI: The patient is a 68-year-old female with a past medical history as outlined below. Recently had lab work that showed an increase in serum globulin level. Protein electrophoresis was ordered and demonstrated a faint band in the gamma region suspicious for monoclonal gammopathy. Further workup was recommended. Was also found to have low serum iron and iron saturation. Chemistry significant for total serum protein of 8.2 g/dL. Albumin 4.5 g/dL. Serum creatinine 1.03 mg/dL. CBC demonstrated hemoglobin 12.8 g/dL. Total white count and platelet count normal. Spot urine negative for protein by dipstick analysis. Has had mild increase in serum protein in the past. No MP by electrophoresis on 3 occasions here. Fatigued. Pain in both tarango bones for about a month. Restless legs at night. Previous bone donor site from left iliac bone to do cervical graft hurts all the time. Bones in feet hurt. They feel weak, feel like feet don't want to work when I stand up. Hands hurt. ANDRSE that fluctuates. Most recent EGD 03/14/2022 AG. Report in notes. C-scope 12/2017. Hyperplastic polyp. Was on oral iron years ago. Bad constipation. 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/2016 Right nasal tip Hyperlipidemia Lung nodules PAD (peripheral artery disease) ([facility]) 03/10/2017 02/06/2022 PVR ank/jackson/toe bilat: RIGHT SIDE JITENDRA: 1.19; TBI: 0.84, WNL at rest LEFT SIDE: JITENDRA: 1.19; TBI: 0.96, WNL at rest Pulmonary HTN ([facility]) 12/08/2017 mild Squamous cell skin cancer, nasal tip 06/24/2016 Tobacco abuse 03/28/2017 PAST SURGICAL HISTORY Procedure Laterality Date ADDTL NECK SPINE FUSION 09/2004 CHOLECYSTECTOMY 2000 COLONOSCOPY 1982 COLONOSCOPY FLX DX W/COLLJ SPEC WHEN PFRMD 09/01/2012 COLONOSCOPY FLX DX W/COLLJ SPEC WHEN PFRMD Done in [place] unable to obtain COLONOSCOPY FLX DX W/COLLJ SPEC WHEN PFRMD 11/17/2013 Colonoscopy COLONOSCOPY FLX DX W/COLLJ SPEC WHEN PFRMD 12/24/2017 Colonoscopy ESOPHAGOGASTRODUODENOSCOPY TRANSORAL DIAGNOSTIC 06/04/2013 EGD ESOPHAGOGASTRODUODENOSCOPY TRANSORAL DIAGNOSTIC 05/17/2015 EGD ESOPHAGOGASTRODUODENOSCOPY TRANSORAL DIAGNOSTIC 12/24/2017 EGD FNA (FINE NEEDLE ASPIRATION) 04/12/2024 right thyroid HYSTERECTOMY HX 1984 Pelvic pain AND DUB NEUROPLASTY AND/TRANSPOS MEDIAN NRV CARPAL TUNNE Bilateral 08/27/2018 Bilateral carpal tunnel release OOPHORECTOMY PARTIAL/TOTAL UNI/BI 1985 Bilateral PAST SURGICAL HISTORY OF removed tissue nose for SCC PAST SURGICAL HISTORY OF 10/13/2017 Excision nasal mass, Dr Juarez Harris REMOVE TONSIL AND ADENOI UNDER AGE 14 SLING OPER STRES INCONTINENCE 2002 ALLERGIES Allergen Reactions Metronidazole Anaphylaxis Adhesive Other: See Comments redness with bandaids Augmentin [Amoxicil* Other: See Comments Thrush/yeast infection Ciprofloxacin Rash Clindamycin Swelling throat swelling Penicillins Intolerance Yeast infections Prozac [Fluoxetine * Rash Sulfa Dyne Rash Current Outpatient Medications Medication Sig metFORMIN (GLUCOPHAGE) 500 mg tablet Take 1 tablet by mouth two times a day with meals. ondansetron orally disintegrating (ZOFRAN ODT) 4 mg disintegrating tablet Take 1 tablet by mouth every 8 hours as needed. dulaglutide (TRULICITY) 1.5 mg/0.5 mL pen injector Inject 1.5 mg subcutaneously one time a week. Inject once per week. Discard Pen After meloxicam (MOBIC) 15 mg tablet Take 1 tablet by mouth once daily. rosuvastatin (CRESTOR) 20 mg tablet Take 1 tablet by mouth daily at bedtime. clobetasol (TEMOVATE) 0.05 % cream apply to rash on legs and hands twice daily 5 days a week as needed. Apply twice daily as needed, up to 21 days per month. Avoid application to the face, armpits, groin. albuterol HFA (PROVENTIL HFA, VENTOLIN HFA) 90 [...] Take 1 capsule by mouth twice daily. (Patient taking differently: Take 100 mg by mouth once daily.) Cholecal (more content not included)...[facility]07[facility] History of Present illness Narrative* Cristhian Smith, - 06/02/2024 9:06 AM EDT Portions of this documentation were copied and pasted from previous office visit notes in order to provide a cohesive continuity of the history. The note has been reviewed and edited and updated as necessary. HPI: The patient is a 68-year-old female with a past medical history as outlined below. Recently had lab work that showed an increase in serum globulin level. Protein electrophoresis was ordered and demonstrated a faint band in the gamma region suspicious for monoclonal gammopathy. Further workup was recommended. Was also found to have low serum iron and iron saturation. Chemistry significant for total serum protein of 8.2 g/dL. Albumin 4.5 g/dL. Serum creatinine 1.03 mg/dL. CBC demonstrated hemoglobin 12.8 g/dL. Total white count and platelet count normal. Spot urine negative for protein by dipstick analysis. Has had mild increase in serum protein in the past. No MP by electrophoresis on 3 occasions here. Fatigued. Pain in both tarango bones for about a month. Restless legs at night. Previous bone donor site from left iliac bone to do cervical graft hurts all the time. Bones in feet hurt. They feel weak, feel like feet don't want to work when I stand up. Hands hurt. ANDRES that fluctuates. Most recent EGD 03/14/2022 AG. Report in notes. C-scope 12/2017. Hyperplastic polyp. Was on oral iron years ago. Bad constipation. PAST MEDICAL HISTORY Diagnosis Date Back pain [...] COLONOSCOPY FLX DX W/COLLJ SPEC WHEN PFRMD 09/01/2012 COLONOSCOPY FLX DX W/COLLJ SPEC WHEN PFRMD Done in [place] unable to obtain COLONOSCOPY FLX DX W/COLLJ SPEC WHEN PFRMD 11/17/2013 Colonoscopy COLONOSCOPY FLX DX W/COLLJ SPEC WHEN PFRMD 12/24/2017 Colonoscopy ESOPHAGOGASTRODUODENOSCOPY TRANSORAL DIAGNOSTIC 06/04/2013 EGD ESOPHAGOGASTRODUODENOSCOPY TRANSORAL DIAGNOSTIC 05/17/2015 EGD ESOPHAGOGASTRODUODENOSCOPY TRANSORAL DIAGNOSTIC 12/24/2017 EGD FNA (FINE NEEDLE ASPIRATION) 04/12/2024 right thyroid HYSTERECTOMY HX 1984 Pelvic pain & DUB NEUROPLASTY &/TRANSPOS MEDIAN NRV CARPAL TUNNE Bilateral 08/27/2018 Bilateral carpal tunnel release OOPHORECTOMY PARTIAL/TOTAL UNI/BI 1985 Bilateral PAST SURGICAL HISTORY OF removed tissue nose for SCC PAST SURGICAL HISTORY OF 10/13/2017 Excision nasal mass, Dr Juarez Harris REMOVE TONSIL AND ADENOI UNDER AGE 14 SLING OPER STRES INCONTINENCE 2002 ALLERGIES Allergen Reactions Metronidazole Anaphylaxis Adhesive Other: See Comments redness with bandaids Augmentin [Amoxicil* Other: See Comments Thrush/yeast infection Ciprofloxacin Rash Clindamycin Swelling throat swelling Penicillins Intolerance Yeast infections Prozac [Fluoxetine * Rash Sulfa Dyne Rash Current Outpatient Medications Medication Sig metFORMIN (GLUCOPHAGE) 500 mg tablet Take 1 tablet by mouth two times a day with meals. ondansetron orally disintegrating (ZOFRAN ODT) 4 mg disintegrating tablet Take 1 tablet by mouth every 8 hours as needed. dulaglutide (TRULICITY) 1.5 mg/0.5 mL pen injector Inject 1.5 mg subcutaneously one time a week. Inject once per week. Discard Pen After meloxicam (MOBIC) 15 mg tablet Take 1 tablet by mouth once daily. rosuvastatin (CRESTOR) 20 mg tablet Take 1 tablet by mouth daily at bedtime. clobetasol (TEMOVATE) 0.05 % cream apply to rash on legs and hands twice daily 5 days a week as needed. Apply twice daily as needed, up to 21 days per month. Avoid application to the face, armpits, groin. albuterol HFA (PROVENTIL HFA, VENTOLIN HFA) 90 [...] Take 1 capsule by mouth twice daily. (Patient taking differently: Take 100 mg by mouth once daily.) Cholecalciferol, Vitamin D3, 25 mcg (1,000 unit) cap Take 1 capsule by mouth once daily. fluticasone-salmeterol (ADVAIR, WIXELA) 250-50 mcg/dose Inhale 1 Puff as instructed twice daily. aspirin, enteric coated (ASPIRIN, ENTERIC COATED) 81 mg EC tablet Take 81 mg by mouth once daily. traZODone 100 mg tablet Take 100 mg by mouth daily at bedtime. One or two blood sugar diagnostic (ONETOUCH VERIO TEST STRIPS) test strip Test blood sugar(s) 3 times daily. Dx: Type 2 DM - Controlled E11.9 Insulin: No fluticasone-salmeterol (ADVAIR DISKUS) 250-50 mcg/dose inhaler Inhale 1 Puff as instructed two times a day. RINSE AND GARGLE MOUTH WITH WATER AFTER EACH USE. (Patient not taking: Reported on 02/23/2024) Fluorouracil (EFUDEX) 5 % cream Apply to [...] DX: DDD of neck and lumbar spine busPIRone 5 mg tablet Take 5 mg by mouth twice daily. (Patient not taking: Reported on 10/14/2023) No current facility-administered medications for this visit. Social History Tobacco Use Smoking status: Every Day Packs/day: 0.50 Years: 47.00 Additional pack years: 0.00 Total pack years: 23.50 Types: Cigarettes Start date: 1975 Smokeless tobacco: Never Tobacco comments: Former one ppd smoker Vaping Use Vaping Use: Never used Substance Use Topics Alcohol use: Not Currently Drug use: Not Currently Types: Marijuana Family History Problem Relation Age of Onset Colon Polyps Mother COPD Mother Colon Cancer Mother Colon Polyps Father Heart Father Colon Polyps Sister Hypertension Sister Hypertension Sister Hypertension Sister Thyroid Sister Colon Polyps Brother other (Parkinsonism [Other]) Brother Colon Polyps Brother Ischemic Heart Disease Brother Diabetes Maternal Grandfather ROS: Constitutional: No fever. No drenching night sweats. Normal appetite. No unexplained weight loss. No significant fatigue. Neuro: No recent ERVIN, vertigo, dizziness or imbalance. No symptoms of sensory neuropathy. HEENT: No recent change in voice, vision or hearing. Resp: No cough, wheeze of hemoptysis. No shortness of breath at rest. No ANDRES. CVS: No exertional chest pain, PND or orthopnea. No extremity swelling/edema. No symptoms of claudication. No painful or tender varicose veins. GI: No dysgeusia. No symptoms of stomatitis. No dysphagia or odynophagia. No reflux, n/v, change inbowel habits. No abdominal pain, bloating or distension. No black or bloody stools. : No dysuria or gross hematuria. No symptoms of bladder outlet obstruction. Endo: No hot flashes. No polyuria or polydipsia. No heat or cold intolerance. Musculoskeletal: No bone, back, joint and muscular pain. Derm: No current rash. No history of jaundice. No diffuse pruritis. Heme: No unusual bleeding and unexplained bruising. Psych: Normal mood. PHYSICAL EXAM: Vitals: Blood pressure 124/76, pulse 76, temperature 36.6 C (97.9 F), temperature source Temporal, height 156 cm (5' 1.42), weight 63.5 kg (140 lb), SpO2 97%. Well-appearing and in no acute distress. EYES: Sclerae are anicteric bilaterally. ENT: Oral mucosa is unremarkable. There is no sign of thrush or mucositis. LYMPHATIC: There is no palpable cervical, supraclavicular, axillary or inguinal adenopathy. RESPIRATORY: Inspiratory breath sounds are of normal intensity in all roberts. No rales, wheezes or rhonchi. Expiratory phase is normal. CARDIOVASCULAR: Rhythm is regular. Normal intensity S1/S2. There is no gallop or murmur. ABDOMEN: The abdomen is nondistended. No splenomegaly or hepatomegaly. No tenderness. Extremities: No swelling or edema. SKIN: No jaundice or rash. No petechiae. NEUROLOGIC: aoc director intelligence officer II-XII are grossly intact. No focal motor weakness. DTRs are symmetric and normal. MUSCULOSKELETAL: No joint swelling or tenderness. No muscle wasting. ASSESSMENT/PLAN: (D47.2) Monoclonal gammopathy (primary encounter diagnosis) Assessment: -Patient is a 68-year-old female recently found to have a possible monoclonal protein on serum protein electrophoresis. -History of osteopenia. -Discussed stepwise workup. If has clear evidence of monoclonal gammopathy then MRI and decide on next steps in workup including potential for bone marrow biopsy. -Iron deficiency. Intolerant to oral iron in the past. Longstanding PPI use. Plan: -Labs today to include CBC, chemistry panel, LDH, beta-2 microglobulin, LDH, protein electrophoresis and immunofixation of serum and a 24-hour urine specimen. -Check iron. May require parenteral iron due to mcc PPI use. -OV following above. Potential MRI an bone marrow biopsy pending above. I spent a total of 45 minutes on the date of the service which included preparing to see the patient, [id number] patient care, completing clinical documentation, obtaining and/or reviewing separately obtained history, performing a medically appropriate examination, counseling and educating the pat ient/family/caregiver, ordering medications, tests, or procedures, communicating with other HCPs (not separately reported), and communicating results to the patient/family/caregiver. Cristhian Smith DO documented in this encounterProm[facility]07-[facility] Telephone encounter Note * Telephone Encounter - Rosie Tam - 06/01/2024 10:22 AM EDT Scheduled with patient. She states she does not drive and will try to get transportation for tomorrow. She will call back to reschedule if unable. [facility] Work Phone: [phone]) 859-205407-23-2024 Miscellaneous Notes* Telephone Encounter - Rosie Tam - 06/01/2024 10:22 AM EDT Scheduled with patient. She states she does not drive and will try to get transportation for tomorrow. She will call back to reschedule if unable. * Telephone Encounter - Monika Vila - 06/01/2024 8:35 AM EDT Lvm for patient to call back. Holding 06/02/24 8:50 for new patient ref by Jake Raymond for Monoclonel Gammopathy Monika Mendezlins documented in this encounterProm[facility]07-23-2024 Telephone encounter Note * Telephone Encounter - VilaMonika - 06/01/2024 8:35 AM EDT Lvm for patient to call back. Holding 06/02/24 8:50 for new patient ref by Jake Raymond for Monoclonel Gammopathy Monika Mendezlins [facility]06-12[facility] History of Present illness Narrative* Pelon Winchester MD - 04/21/2024 3:31 PM EDT Subjective: Patient is status post a right fine-needle aspiration on 01/10/2024. Final diagnosis came back benign colloid nodule. She is not having any problems with discomfort although she does feellike she has some constricting sensations while she is swallowing. Objective: Blood pressure 102/62, pulse 90, temperature 36.7 C (98 F), temperature source Temporal,resp. rate 14, height 157.5 cm (5' 2), weight 65.6 kg (144 lb 9.6 oz), SpO2 100%. Neck is supple no hard palpable nodules are identified. Assessment:Multinodular goiter (nontoxic) (primary encounter diagnosis) Plan: Patient will need to have yearly thyroid ultrasounds the nodules grow by more than 20% repeatfine-needle aspirations will need to be performed. documented in this encounterPromedica [facility] Hospital06-12-2024 NoteHNO ID: [id number] Author: PELON WINCHESTER MD Service: ? Author Type: Physician Type: Progress Notes Filed: 04/21/2024 15:33 Note Text: Subjective: Patient is status post a right fine-needle aspiration on 6 01/10/2024. Final diagnosis came back benign colloid nodule. She is not having any problems with discomfort although she does feel like she has some constricting sensations while she is swallowing. Objective: Blood pressure 102/62, pulse 90, temperature 36.7 ?C (98 ?F), temperature source Temporal, resp. rate 14, height 157.5 cm (5' 2), weight 65.6 kg (144 lb 9.6 oz), SpO2 100%. Neck is supple no hard palpable nodules are identified. Assessment:Multinodular goiter (nontoxic) (primary encounter diagnosis) Plan: Patient will need to have yearly thyroid ultrasounds the nodules grow by more than 20% repeat fine-needle aspirations will need to be performed.[facility] Instructions* Patient Instructions* Amanda Ruiz LPN - 04/12/2024 2:13 PM EDT Instructions After THYROID FINE NEEDLE ASPIRATION Please do not take aspirin or other blood thinners for the next few days. If you have bleeding from the needle site, hold pressure with a clean gauze. If the bleeding continues, contact our office immediately. I recommend taking Advil or Tylenol for the discomfort. An ice pack may improve your discomfort to the area. Call us if your experience -fever over 101.0 -Swelling at biopsy site Call 911 or visit local emergency room -shortness of breath or trouble breathing -change in voice -bleeding in the throat that will not stop Contact our office immediately if you have any questions or concerns @ [phone]. Please make an appointment to follow up in one week with your physician and thank you for choosing the [facility]. Sincerely, Your General Surgery Care Team documented in this encounterPromedica Memorial Hospital06-03-2024 History of Present illness Narrative* Pelon Winchester MD - 04/12/2024 2:10 PM EDT Preoperative diagnosis: Multinodular goiter Postoperative diagnosis: The same Procedure: Ultrasound-guided fine-needle aspiration of dominant right thyroid nodule Surgeon: Brody Procedure: Ultrasound of the right thyroid gland revealed the nodule in question. Prepped the skin with alcohol. I injected 1% lidocaine plain. Under ultrasound guidance I took 3 passes with a 22-gauge needle and plated these on glass slides. Under ultrasound guidance and took 1 more pass with a 22-gauge needle and performed an Afirma test. Sterile dressings were applied. The patient tolerated the procedure well. documented in this encounterPromedica Memorial Hospital06-03-2024 Nurse Note* Amanda Ruiz LPN - 04/12/2024 2:09 PM EDT UNIVERSAL PROTOCOL / SAFETY CHECKLIST Procedure to be Performed: Ultrasound Guided Fine Needle Aspiration Thyroid right Sign In: A Moment of CARE was completed. Personnel directly involved with the procedure wore the appropriate PPE (Personal Protective Equipment). No special equipment needed. Patient/Surrogate Stated/Verified: PATIENT VERIFIED(optional for EMERGENT procedures): Patient name, Date of , Relevant allergies, and The intended procedure Time Out Communication: Intended patient and procedure match the source documents. Consent documented and matches the intended procedure. Relevant labs, photos, and/or imaging studies have been reviewed. Correct side/site marked and visible. Medications required for procedure verified. No fire risk assessment and interventions applicable. No implant(s) inserted. Sign Out: SIGN OUT (optional for EMERGENT procedures): All specimen containers correctly labeled. No instruments, equipment or retained foreign bodies applicable. Post-procedure follow-up management communicated and Plan of Care Visit completed when applicable. Amanda Ruiz LPN [facility]06-03-[facility] Nurse Note* Amanda Ruiz LPN - 04/12/2024 2:09 PM EDT UNIVERSAL PROTOCOL / SAFETY CHECKLIST Procedure to be Performed: Ultrasound Guided Fine Needle Aspiration Thyroid right Sign In: A Moment of CARE was completed. Personnel directly involved with the procedure wore the appropriate PPE (Personal Protective Equipment). No special equipment needed. Patient/Surrogate Stated/Verified: PATIENT VERIFIED(optional for EMERGENT procedures): Patient name, Date of , Relevant allergies, and The intended procedure Time Out Communication: Intended patient and procedure match the source documents. Consent documented and matches the intended procedure. Relevant labs, photos, and/or imaging studies have been reviewed. Correct side/site marked and visible. Medications required for procedure verified. No fire risk assessment and interventions applicable. No implant(s) inserted. Sign Out: SIGN OUT (optional for EMERGENT procedures): All specimen containers correctly labeled. No instruments, equipment or retained foreign bodies applicable. Post-procedure follow-up management communicated and Plan of Care Visit completed when applicable. Amanda Ruiz LPN documented in this encounterPromedica [facility] Hospital04-15-2024 History of Present illness Narrative* Pelon Winchester MD - 02/23/2024 4:20 PM EDT HISTORY AND PHYSICAL Юлия Garcialakesha 1955 REFERRING PHYSICIAN: Jake Raymond MD CHIEF COMPLAINT: Consult HPI: The patient is a 68 year old female with a complaint of a right thyroid nodule. This thyroid nodule was found on Ultrasound by [facility]. The patient denies pain, denies difficulty swallowing, deniesrapid enlargement of the neck, deniesdysphagia, denies a change in the voice, denies hot or cold intolerence. The patient has not a prior history of neck radiation treatment. The patient is being seen by me today at the request of Dr. Raymond for my opinion and advice regarding Multinodular goiter (nontoxic) (primary encounter diagnosis). 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/2016 Right nasal tip Hyperlipidemia Lung nodules PAD (peripheral artery disease) ([facility]) 03/10/2017 02/06/2022 PVR ank/jackson/toe bilat: RIGHT SIDE JITENDRA: 1.19; TBI: 0.84, WNL at rest LEFT SIDE: JITENDRA: 1.19; TBI: 0.96, WNL at rest Pulmonary HTN ([facility]) 12/08/2017 mild Squamous cell skin cancer, nasal tip 06/24/2016 Tobacco abuse 03/28/2017 PAST SURGICAL HISTORY Procedure Laterality Date ADDTL NECK SPINE FUSION 09/2004 CHOLECYSTECTOMY 2000 COLONOSCOPY 1982 COLONOSCOPY FLX DX W/COLLJ SPEC WHEN PFRMD 09/01/12 COLONOSCOPY FLX DX W/COLLJ SPEC WHEN PFRMD Done in [place] unable to obtain COLONOSCOPY FLX DX W/COLLJ [...] HISTORY OF 10/13/2017 Excision nasal mass, Dr Juarez Harris REMOVE TONSIL AND ADENOI UNDER AGE 14 SLING OPER STRES INCONTINENCE 2001 Current Outpatient Medications Medication Sig Dispense Refill metFORMIN (GLUCOPHAGE) 500 mg tablet Take 1 tablet by mouth two times a day with meals. 60 tablet 5 ondansetron orally disintegrating (ZOFRAN ODT) 4 mg disintegrating tablet Take 1 tablet by mouth every 8 hours as needed. 30 tablet 5 dulaglutide (TRULICITY) 1.5 mg/0.5 mL pen injector Inject 1.5 mg subcutaneously one time a week. Inject once per week. Discard Pen After 4 Each 5 blood sugar diagnostic (ONETOUCH VERIO TEST STRIPS) test strip Test blood sugar(s) 3 times daily. Dx: Type 2 DM - Controlled E11.9 Insulin: No 50 Strip 11 meloxicam (MOBIC) 15 mg tablet Take 1 tablet by mouth once daily. 90 tablet 3 rosuvastatin (CRESTOR) 20 mg tablet Take 1 tablet by mouth daily at bedtime. 90 tablet 1 clobetasol (TEMOVATE) 0.05 % cream apply to rash on legs and hands twice daily 5 days a week as needed. Apply twice daily as needed, up to 21 days per month. Avoid application to the face, armpits, groin. 45 g 1 albuterol HFA (PROVENTIL HFA, VENTOLIN HFA) 90 mcg/actuation inhaler Inhale 2 Puffs as instructed every 4 hours as needed for wheezing/shortness of breath. 1 Each 2 furosemide (LASIX) 20 mg tablet Take 1 tablet by mouth once daily. [address] (PROTONIX) 40 mg tablet Take 1 tablet by mouth once daily. 30 tablet 5 montelukast (SINGULAIR) 10 mg tablet Take 1 tablet by mouth daily at bedtime. 90 tablet 1 citalopram (CELEXA) 40 mg tablet Take 1 tablet by mouth once daily. 90 tablet 1 famotidine (PEPCID) 20 mg tablet Take 1 tablet by mouth once daily. 30 tablet 11 coenzyme Q10 (COENZYME Q-10) 100 mg cap capsule Take 1 capsule by mouth twice daily. 60 capsule 11 Cholecalciferol, Vitamin D3, 25 mcg (1,000 unit) cap Take 1 capsule by mouth once daily. 90 capsule3 fluticasone-salmeterol (ADVAIR, WIXELA) 250-50 mcg/dose Inhale 1 Puff as instructed twice daily. 60Each 1 blood sugar diagnostic (BLOOD GLUCOSE TEST) [...] - Dx: Type 2 DM - Controlled E11.91 Each 0 COMPOUNDED PRESCRIPTION Tens unit DX: DDD of neck and lumbar spine 1 Each 0 aspirin, enteric coated (ASPIRIN, ENTERIC COATED) 81 mg EC tablet Take 81 mg by mouth once daily. traZODone 100 mg tablet Take 100 mg by mouth daily at bedtime. One or two fluticasone-salmeterol (ADVAIR DISKUS) 250-50 mcg/dose inhaler Inhale 1 Puff as instructed two times a day. RINSE AND GARGLE MOUTH WITH WATER AFTER EACH USE. (Patient not taking: Reported on 02/23/2024) 3 Each 2 Fluorouracil (EFUDEX) 5 % cream Apply to affected areas twice daily for 2-4 weeks or until red blistering reaction occurs. 40 g 0 buPROPion XL (WELLBUTRIN XL) 150 mg 24 hr tablet Take 150 mg by mouth once daily. (Patient not taking: Reported on 10/14/2023) busPIRone 5 mg tablet Take 5 mg by mouth twice daily. (Patient not taking: Reported on 10/14/2023) No current facility-administered medications for this visit. ALLERGIES: Metronidazole, Adhesive, Augmentin [Amoxicillin-Pot Clavulanate], Ciprofloxacin, Clindamycin, Penicillins, Prozac [Fluoxetine Hcl], and Sulfa Dyne PERSONAL HISTORY: Social History Tobacco Use Smoking status: Every Day Packs/day: 0.50 Years: 47.00 Additional pack years: 0.00 Total pack years: 23.50 Types: Cigarettes Start date: 1975 Smokeless tobacco: Never Tobacco comments: Former one ppd smoker Vaping Use Vaping Use: Never used Substance Use Topics Alcohol use: Never Drug use: No FAMILY HISTORY: FAMILY HISTORY Problem Relation Age of Onset Colon Polyps Mother COPD Mother Colon Cancer Mother Colon Polyps Father Heart Father Colon Polyps Sister Hypertension Sister Hypertension Sister Colon Polyps Brother other (Parkinsonism [Other]) Brother Colon Polyps Brother Ischemic Heart Disease Brother Diabetes Maternal Grandfather REVIEW OF SYMPTOMS: The review of systems data was entered by the nurse and reviewed by mi Nursing Notes: Tamika Ya RN 02/23/2024 3:03 PM Signed REVIEW OF SYSTEMS: General: The patient NOTES fatigue, denies weight loss, denies weight gain, denies feeling hot, andNOTES feelings of cold. Eyes: The patient denies glaucoma, denies eye injury/surgery, wears glasses or contacts. Ear/Nose/Throat: The patient NOTES allergies, denies hayfever, denies ear infections, and denies bloody noses. Cardiovascular: The patient denies chest pain, denies heart disease, denies high blood pressure,denies cardiac stent, denies prior heart attack, denies irregular heart beat, denies high cholesterol, NOTES poor circulation, denies heart failure, other cardiac issues, NOTES claudication, NOTES cold feet, denies peripheral arterial stent. Respiratory: The patient denies tuberculosis, denies pneumonia, denies frequent cough, denies pulmonary embolism, NOTES shortness of breath, and denies coughing up blood. Gastrointestinal: The patient NOTES difficulty swallowing, NOTES acid reflux, denies ulcers, deniesvomiting, denies jaundice/hepatitis, denies gallbladder problems, denies black or tarry stools, denies hemorrhoids, denies bleeding from rectum, NOTES diverticulitis, NOTES constipation, NOTES diarrhea, NOTES loss of stool control, and denies hernias. Kidney/Bladder: The patient denies kidney stones, denies urine infections, and denies bloody urine. Skin: The patient NOTES a history of skin cancer, NOTES bleeding/changing moles, and NOTES a history of skin rash. Neurologic: The patient denies a history of epilepsy/convulsions, denies headaches, NOTES head/spinal injuries, and denies stroke/TIA. Psychiatric: The patient denies psychiatric medications, denies depression, and denies voices, denies substance abuse. Endocrine: The patient denies thyroid disorders, NOTES diabetes, and denies hormonal problems. Hematologic: The patient NOTES a history of bruising, denies bleeding, and NOTES anemia, patient denies a history of measles and mumps, denies rheumatic fever, and denies sexually transmitted diseases. Musculoskeletal: The patient denies back pain/injury, denies back problems, denies sciatica, NOTES knee/foot trouble, NOTES arthritis, or denies gout. When was patient's last Mammogram screening? 2022 Last Colonoscopy: 12/24/2017 Tamika Ya RN PHYSICAL EXAMINATION: General: The patient is 68 year old female, well nourished, well hydrated in no acute distress. Thepatient is oriented to time, place, and person. VITALS: Blood pressure 118/68, pulse 115, temperature 36.6 C (97.8 F), height 157.5 cm (5' 2), weight 66.8 kg (147 lb 3.2 oz), SpO2 97%. Body mass index is 26.92 kg/m . HEENT: Normal cephalic, ataumatic, pupils are equally round, sclera are anicteric, mucous membranesare moist, oropharynx is clear. Neck has no masses, asymmetry or lymphadenopathy. Thyroid exam no hard nodules are identified. Respiratory: Clear to auscultation and percussion. Normal respiratory excursion and pattern. Cardiac: Examination is regular rate and rhythm. Abdominal exam: Soft, nontender, with no palpable masses. No hepatosplenomegaly. No palpable hernias. Rectal exam: exam deferred Extremities: no clubbing, cyanosis or edema. No adenopathy. Other: LABORATORY VALUES: As Noted RADIOLOGIC STUDIES: As Noted Assessment IMPRESSION: NODULE - right THYROID PLAN: I plan to perform an FNAC of the right Thyroid. Diagnoses: (E04.2) Multinodular goiter (nontoxic) (primary encounter diagnosis) A letter was sent to Dr. Jake Raymond MD, MD indicating the above finding for this patient. Return to Clinic: The patient is instructed to follow-up with me 1 week post operatively. Pelon Winchester III, MD documented in this encounterPromedica [facility] Hospital04-15-2024 Nurse Note* Tamika Ya RN - 02/23/2024 2:56 PM EDT REVIEW OF SYSTEMS: General: The patient NOTES fatigue, denies weight loss, denies weight gain, denies feeling hot, andNOTES feelings of cold. Eyes: The patient denies glaucoma, denies eye injury/surgery, wears glasses or contacts. Ear/Nose/Throat: The patient NOTES allergies, denies hayfever, denies ear infections, and denies bloody noses. Cardiovascular: The patient denies chest pain, denies heart disease, denies high blood pressure,denies cardiac stent, denies prior heart attack, denies irregular heart beat, denies high cholesterol, NOTES poor circulation, denies heart failure, other cardiac issues, NOTES claudication, NOTES cold feet, denies peripheral arterial stent. Respiratory: The patient denies tuberculosis, denies pneumonia, denies frequent cough, denies pulmonary embolism, NOTES shortness of breath, and denies coughing up blood. Gastrointestinal: The patient NOTES difficulty swallowing, NOTES acid reflux, denies ulcers, deniesvomiting, denies jaundice/hepatitis, denies gallbladder problems, denies black or tarry stools, denies hemorrhoids, denies bleeding from rectum, NOTES diverticulitis, NOTES constipation, NOTES diarrhea, NOTES loss of stool control, and denies hernias. Kidney/Bladder: The patient denies kidney stones, denies urine infections, and denies bloody urine. Skin: The patient NOTES a history of skin cancer, NOTES bleeding/changing moles, and NOTES a history of skin rash. Neurologic: The patient denies a history of epilepsy/convulsions, denies headaches, NOTES head/spinal injuries, and denies stroke/TIA. Psychiatric: The patient denies psychiatric medications, denies depression, and denies voices, denies substance abuse. Endocrine: The patient denies thyroid disorders, NOTES diabetes, and denies hormonal problems. Hematologic: The patient NOTES a history of bruising, denies bleeding, and NOTES anemia, patient denies a history of measles and mumps, denies rheumatic fever, and denies sexually transmitted diseases. Musculoskeletal: The patient denies back pain/injury, denies back problems, denies sciatica, NOTES knee/foot trouble, NOTES arthritis, or denies gout. When was patient's last Mammogram screening? 2022 Last Colonoscopy: 12/24/2017 Tamika Ya RN documented in this encounterPromedica Memorial Hospital04-05-2024 Miscellaneous Notes* Telephone Encounter - Kely Solano RN - 02/13/2024 3:10 PM EDT Let Giselle with [facility] know that Pt has switched PCPs, and is now with [facility]. She states she will call them for refills. documented in this encounterPromedica Memorial Hospital04-05-2024 Note. MICRO - Microbiology PROCEDURE: Culture Wound Aerobic with Gram Stain [*1] SOURCE: Miscellaneous Micro BODY SITE: Vaginal Wall COLLECTED DATE/TIME: 02/10/2024 17:14 EDT RECEIVED DATE/TIME: 02/10/2024 19:20 EDT START DATE/TIME: 02/10/2024 19:20 EDT FREE TEXT SOURCE: FINAL REPORTS Final Report [] Verified Date/Time/Personnel: 02/13/2024 07:21 EDT Normal Vaginal Pierre: Present Neisseria gonorrhoeae: Negative PRELIMINARY REPORTS Preliminary Report [] Verified Date/Time/Personnel: 02/12/2024 08:45 EDT Normal Vaginal Pierre: Present Neisseria gonorrhoeae: Pending Preliminary Report [] Verified Date/Time/Personnel: 02/11/2024 12:12 EDT Culture results pending. STAINS GS [] Verified Date/Time/Personnel: 02/10/2024 20:26 EDT 4+ Epithelial cells 4+ Gram Positive Rods , many rods are gram variable Performing Locations *1: This test was performed at: [address], [facility] , [facility] ([place])02-11-2024 Note. MICRO - Microbiology PROCEDURE: Affirm Pathogens DNA Direct Probe [*1] SOURCE: Vaginal Fluid BODY SITE: Vaginal Wall COLLECTED DATE/TIME: 02/10/2024 17:14 EDT RECEIVED DATE/TIME: 02/10/2024 19:13 EDT START DATE/TIME: 02/10/2024 19:13 EDT FREE TEXT SOURCE: FINAL REPORTS Final Report [] Verified Date/Time/Personnel: 02/11/2024 12:24 EDT Kalina species DNA Probe Negative Gardnerella vaginalis DNA Probe Positive Trichomonas vaginalis DNA Probe Negative Performing Locations *1: This test was performed at: [address], [facility] , [facility] ([place])01-31-2024 History of Present illness Narrative* Azul Mata MA - 01/31/2024 9:22 AM EDT POPULATION HEALTH NAVIGATION OUTREACH Action/ Last wellness exam 03.27.2023 Verify PCP Mammogram due 03/25/2024 or after Reason for Outreach Care Gap/HCC or Scheduling Wellness Visits Care Gaps due: Medicare Annual Wellness Visit Breast Cancer Screening Colorectal Cancer Screening Patient Contacted: Unable or unnecessary to reach patient: Left message MyChart message sent Navigation Signature: Azul Vega MA January 31, 2024 9:26 AM documented in this encounterPromedica Memorial Hospital02-07-2024 Miscellaneous Notes* Telephone Encounter - Sirisha Man LPN - 12/17/2023 3:24 PM EST ARIADNA-09/29/23 Labs-09/29/23Sep-12/29/23 Sirisha Man LPN documented in this encounterPromedica Memorial Hospital02-07-2024 Miscellaneous Notes* Telephone Encounter - Sirisha Man LPN - 12/17/2023 3:22 PM EST ARIADNA-09/29/23 Labs-09/29/23Sep-12/29/23 Sirisha Man LPN documented in this encounterPromedica Memorial Hospital02-05-2024 Miscellaneous Notes* Telephone Encounter - Olga Rosa - 12/15/2023 4:03 PM EST Patient is requesting to hold off on schedule CT Scan for lung cancer screening due to finances. She will notify office when she is ready to schedule. documented in this encounterPromedica Memorial Hospital02-02-2024 Miscellaneous Notes* Telephone Encounter - Kelley Del ValleKEEGAN - 12/12/2023 9:24 AM EST Images from the original note were not included. Prior authorization approved Payer: [facility] [phone] Approval Details Authorized from November 10, 2023 [...] to its destination. To be filled at: [facility] [address] [place] [address] [address] - [phone] Pharmacy notified and pt via my chart. * Telephone Encounter - Kelley Del Valle LPN - 12/11/2023 4:24 PM EST PA completed. * Telephone Encounter - Kelley Del Valle LPN - 12/11/2023 4:11 PM EST Electronic PA requested. * Telephone Encounter - Sade Garcia LPN - 12/11/2023 3:58 PM EST Patient sends [employer] message that she now has new insurance and [employer] requires a prior authorization. Script is at [employer] [place]. documented in this encounterPromedica Memorial Hospital12-07-2023 Miscellaneous Notes* Telephone Encounter - Barbie Gonsalez Ma - 10/16/2023 1:40 PM EST Patient last visit with PCP 09/29/2023 Follow up appointment scheduled 03/29/24 Barbie Gonsalez Ma documented in this encounterPromedica Memorial Hospital12-07-2023 Miscellaneous Notes* Telephone Encounter - Akosua Mistry LPN - 10/16/2023 1:16 PM EST ARIADNA: 10/14/23 Patient phones requesting refills as follows: Requested Prescriptions Pending Prescriptions Disp Refills fluticasone-salmeterol (ADVAIR DISKUS) 250-50 mcg/dose inhaler 60 Each 2 Sig: Inhale 1 Puff as instructed two times a day. RINSE AND GARGLE MOUTH WITH WATER AFTER EACH USE. Please review and advise. Akosua Mistry LPN documented in this encounterPromedica Memorial Hospital12-05-2023 History of Present illness Narrative* Beatrice Moore RT(R) - 10/14/2023 1:00 PM EST Radiology Service Progress Note DATE OF SERVICE: [...] Exam(s) Completed: Head: Routine Brain SIGNATURE: RT Tyrese(Francoise) PATIENT NAME: Юлия Prasad DATE: October 14, 2023 TIME: 1:06 PM documented in this encounterPromedica Memorial Hospital12-05-2023 Instructions* Patient Instructions* Sehrie Melgoza APRN.RADHA - 10/14/2023 10:17 AM EST SMOKING CESSATION [...] or stroke. Cigarette smoke has carbon monoxide init. This can decrease the amount of oxygen flowing to your heart and other organs. Lung disease: The chemicals in cigarette smoke can damage your lungs. This causes a buildup of dirtand waste products in your lungs. Many people [...] and your risks for many diseases will decrease.Your breath, clothes, and hair will no longer smell like smoke. Tobacco will no longer stain your teeth. Tobacco smoke is dangerous to others. If you quit, you will decrease the risks to those aroundyou, such as your children or family members. Where can I go for support and more information? There are many ways to quit smoking. Some may workbetter for you than others. Your caregiver can help you find the best plan to quit. Smokefree.gov Web Address: www.smokefree.gov Phone: [place] [employer] Web Address: www.lung.org [address] [facility] [place] , [place] Phone: Phone: [facility] Smoking Cessation Program https://[email or web address]/pteduc/docs/QuittingTobaccoUse.pdf CT Lung Screen Results The CT scan that you will have done will show if you have any nodules (small spots) in your lungs that are suspicious for cancer. Around 90% of the patients who have this scan done are found to have at least one nodule. Most nodules are benign (not cancer) and of no harm to you at all. A specialistwill make a scientific evaluation about whether or [...] to endocrinology. Others Lung Cancer Screening hotline: [phone] Lung Cancer Screening [phone] Billing Questions: or [email or web address]/[email or web address] Specialist Providers: (Jackie Merritt CNP; Kailey Engle PA-C; Neyda Menjivar CNP; Patti Rodrigues CNP, Carina Loya CNP; Marcela Day CNP; Alondra Pimentel PA-C; Sherie Melgoza CNP; Norma Merrill CNP; Michelle Beard PA-C; Alysia Rossi CNP; Bruna Calvillo CNP; Kely Dove CNP): [phone] documented in this encounterPromedica Memorial Hospital12-05-2023 History of Present illness Narrative* Sherie Melgoza APRN.CNP - 10/14/2023 9:58 AM EST Images from the original note were not included. LUNG SCREENING VISIT PRIMARY CARE PHYSICIAN: Franklin Mirza PA-C PULMONARY PROVIDER: Dr. Larry Ruiz Results will be communicated via letter or electronic record if applicable. Visit Delivery: In Person Patient Visit Type: New to [place] Current or Ex-smoker? [Current Exam Type: annual LDCT-prior done at [facility] 03/19/2022 images available Number of Pack Years: [...] pre-disease performance w/o restriction. Modified Medical Research Sherman Dyspnea Scale (MMRC) I only get breathless [...] DX W/COLLJ SPEC WHEN PFRMD Done in [place] unable to obtain COLONOSCOPY FLX DX W/COLLJ [...] HISTORY OF 10/13/2017 Excision nasal mass, Dr Juarez Harris REMOVE TONSIL AND ADENOI UNDER AGE [...] visualized the testing documented: 03/19/2022 LDCT at [facility] Prior Imaging: Last CT/CTA Chest/Lungs CT CHEST WO IVCON Exam End: 09/20/2019 2:43 PM (Final result) Narrative: * * *Final Report* * * DATE OF EXAM: Sep 20 2019 2:43PM [facility] 0541 - CT CHEST WO IVCON [...] of the left kidney. Nonspecific periportal lymphadenopathy. Promotional Demonstrator[facility] Transcribe Date/Time: Sep 21 2019 7:57A [...] Impression: IMPRESSION: No acute abnormality is identified. Promotional Demonstrator: TRI Transcribe Date/Time: Sep 10 2023 2:08P Dictated by : DUY MONTALVO MD... Pulmonary Function Testing: SPIROMETRY WITH DILATOR IF OBSTRUCTED ([id number]) - ordered on 02/28/22 [facility] [address] [place] [address] Test Date: 2022-02-28 Pat Name: SHANTEL PRASAD Department: Room: Gender: Female Policy Issue Clerk: : 1955 Requested By: Order Number: [id number] Reading MD: Barbie Ruiz M.D. Interpretive Statements SP-ATS/ERS acceptability and repeatability standards for spirometry met. IMPRESSION: Spirometry is normal. Minimal small airways obstruction. Electronically Signed On 02-28-2022 16:02:48 EDT by Barbie Ruiz M.D. Site: WO ID: [id number] Name: SHANTEL PRASAD Visit Date: 02/28/2022 Doctor: Policy Issue Clerk: Lata Dhillon Age: 66 Date of : [...] FEF75 (L/sec) 0.51 0.19 1.25 0.40 79 [id number] (L/sec) 1.96 0.96 3.33 1.43 73 PEF [...] Six year risk for lung cancer: 5.81% Https://atVenu/Serbian/result/male_5.8_yes_unknown http://www.GloNav/tiny/01sk4 https://youtu.be/xFaVbGhSbO4 I have determined that the patient is eligible for a low dose CT based on age, absence of signs or symptoms of lung cancer, and total pack years: Yes. The patient and I engaged in shared decision making, including the use of one or more decision aids, to include benefits, harms, follow-up diagnostic testing, over-diagnosis, false positive rate, andtotal radiation exposure. The patient understands and feels comfortable with it: Yes. The patient was counseled on the importance of adherence to annual LDCT lung cancer screening, impact of comorbidities and ability or willingness to undergo diagnosis and treatment. The patient understands and feels comfortable with it:Yes. 2. Nicotine dependence: The patient was counseled on the importance of smoking cessation if currentsmoker and, if appropriate, offered additional tobacco cessation [...] of any other counseling during this visit. Sherie Melgoza APRN.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 NPI #: October 14, 2023 9:59 AM documented in this encounterPromedica Memorial Hospital11-21-2023 Miscellaneous Notes* Telephone Encounter - Alicia Tidwell RN - 09/30/2023 9:05 AM EST Patient called and notified of results and providers instructions on secure voicemail. Patient to call back for any questions. Alicia Tidwell RN * Telephone Encounter - Franklin Mirza PA-C - 09/30/2023 8:19 AM EST Please let her know I increased rosuvastatin to 20 mg, she can double 10mg to equal 20mg if she wants to use them up. Recheck lab 3 months. Telephone on 09/30/23 LIPID PANEL BASIC Thanks, Maciej Mirza PA-C documented in this encounterPromedica Memorial Hospital11-20-2023 History of Present illness Narrative* Franklin Mirza PA-C - 09/29/2023 10:41 AM EST 68 year old female with c/o 6 month follow up Right upper arm pain that is a dull ache. Says it started when she got the flu shot July [address] brain: 09/11/2023 CT brain WO: RESULT: Clay Machine Operator (topogram) images: No additional findings. [...] out. 09/10/2023 was reviewed by Sahra Podlogmarisa 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: occurred after vomiting while sitting on the toilet. No significant injuries. Has orthostatic sx if stands quickly. On going for years, saw [facility] [employer] Dr. Forman 09/21/2015 for same scenario as [...] kg (145 lb 3.2 oz) Pulmonary htn ([facility]) 09/28/16 echocardiogram: EF = 66 5%; mild pulmonary hypertension. 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 90 capsule3 dulaglutide (TRULICITY) 1.5 mg/0.5 mL pen injector Inject 1.5 mg subcutaneously one time a week. Inject once per week. Discard Pen After 12 Each 3 ondansetron orally disintegrating (ZOFRAN ODT) 4 mg disintegrating tablet Take 1 tablet by mouth every 8 hours as needed. 30 tablet 5 fluticasone-salmeterol (ADVAIR, WIXELA) 250-50 mcg/dose Inhale 1 Puff as instructed twice daily. 60Each 1 clobetasol (TEMOVATE) 0.05 % cream apply [...] - Dx: Type 2 DM - Controlled E11.91 Each 0 COMPOUNDED PRESCRIPTION Tens unit DX: [...] this in the past due to overlapping andpotential complications with side effects. Optional medications reviewed which include meloxicam, montelukast,Trazodone. Patient does not wantto go off these medicines at the present time . F/u 6 months. Some of this note may have been copied and pasted for the purpose of history context and comparisonand has been adjusted for changes in prior data. Franklin Mirza PA-C documented in this encounterPromedica Memorial Hospital11-01-2023 History of Present illness Narrative* Layla Barnes RT(R) - 09/10/2023 1:50 PM EDT Radiology Service Progress Note PATIENT NAME: Юлия Prasad DATE OF SERVICE: September 10, 2023 TIME: 1:32 PM PATIENT IDENTITY VERIFICATION COMPLETED USING TWO (2) IDENTIFIERS: Name and Date of confirmedby patient verbally. FALL SCREENING: Has the patient had 2 falls in the last year or 1 fall with injury or currently using an Ambulatory Assistive Device (Walker, Cane, Wheelchair, Crutches, etc.)? No PATIENT GENDER DATA: Female. status: : No status: NO. PATIENT RELEVANT IMPLANT DATA REVIEWED: Yes RADIOLOGY DEPARTMENT: General X-ray: Exam(s) Completed: Rib X-Ray: Right Spine X-Ray(s): Cervical AP / LAT / OBL PERIPHERAL IV DATA: Not applicable SIGNED BY: RT Jordon(Francoise) September 10, 2023 1:32 PM documented in this encounterPromedica Memorial Hospital11-01-2023 Instructions* Patient Instructions* Sahra Moreno APRN.CNP - 09/10/2023 1:21 PM EDT If you develop visual changes, increasing head or neck pain, feel confused, have unsteady walking or vomiting go to ER documented in this encounterPromedica Memorial Hospital11-01-2023 History of Present illness Narrative* Sahra Moreno APRN.CNP - 09/10/2023 12:36 PM EDT 09/10/2023 Patient presents with: Syncope: Last evening [...] like blood was not getting to her head . Blood sugar was 108 prior to incident. Has had two syncopal episodes in the past one from heatstroke and the other similar to yesterday's. Having some rib pain bilaterally she thinks was caused bylanding on trash can. Back of neck hurting as well. Does not currently feel dizzy or lightheaded. Denies new medications, incontinence with episode, hx of seizures, SOB, chest pain, palpitations, hematochezia or melana PAST MEDICAL HISTORY Diagnosis Date Back pain on SSI for this Carpal tunnel 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 Depression Diabetes mellitus ([facility]) Diverticulitis Dysphagia Emphysema of lung ([facility]) 05/15/2015 Essential hypertension 08/07/2022 GI bleed History of squamous cell carcinoma 04/2016 Right nasal tip Hyperlipidemia Lung nodules PAD (peripheral artery disease) ([facility]) 03/10/2017 02/06/2022 PVR ank/jackson/toe bilat: RIGHT SIDE JITENDRA: 1.19; TBI: 0.84, WNL at rest LEFT SIDE: JITENDRA: 1.19; TBI: 0.96, WNL at rest Pulmonary HTN ([facility]) 12/08/2017 mild Squamous cell skin cancer, nasal [...] no bruits. FROM. 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 [...] which included preparing to see the patient, [id number] patient care, completing clinical documentation, obtaining and/or reviewing separately obtained history, performing a medically appropriate examination, counseling and educating the pat ient/family/caregiver, and ordering medications, tests, or procedures. documented in this encounterPromedica Memorial Hospital11-01-2023 Miscellaneous Notes* Telephone Encounter - Gabbie Graves RN - 09/10/2023 12:28 PM EDT Patient call in for fainting episode last night. Patient feels fine now. Nurse Triage assessment completed with protocol recommending for disposition of see PCP in 4 hours.Patient has appointment with Sahra. Care advice reviewed [...] OTHER SYMPTOMS: Denies other symptoms. Protocols used: [id number] * Telephone Encounter - Tori Crump LPN - 09/10/2023 12:01 PM EDT Pt states last pm ~11pm she took [...] Ne. Tori Crump LPN documented in this encounterPromedica Memorial Hospital09-29-2023 Miscellaneous Notes* Telephone Encounter - Jeremiah Galindo LPN - 08/08/2023 10:12 AM EDT Patient phones requesting refills as follows: Requested Prescriptions Pending Prescriptions Disp Refills montelukast (SINGULAIR) 10 mg tablet 90 tablet 1 Sig: Take 1 tablet by mouth daily at bedtime. ARIADNA 05/01/23 NOV 08/26/23 Please review and advise. Jeremiah Galindo LPN documented in this encounterPromedica Memorial Hospital09-20-2023 Miscellaneous Notes* Telephone Encounter - Marly Pham RN - 07/30/2023 8:24 AM EDT Detailed message of information below left on pt's identified VM. Marly Pham RN * Telephone Encounter - Franklin Mirza PA-C - 07/29/2023 6:07 PM EDT Can stop omelsartan (benicar) and recheck NV BP 4 weeks Maciej Albert PA-C documented in this encounterPromedica Memorial Hospital09-19-2023 Miscellaneous Notes* Telephone Encounter - Beatrice Luna Ma - 07/29/2023 6:04 PM EDT Pt notified and scheduled * Telephone Encounter - Franklin Mirza PA-C - 07/29/2023 5:46 PM EDT She can stop olmesartan and recheck BP 4 weeks NV Maciej Albert PA-C * Telephone Encounter - Annmarie Todd LPN - 07/29/2023 3:23 PM EDT Patient notified. Verbalized understanding. Patient questions if she is to still take her BP medication. She was told to continue until after stress test results, states BP has been running low. Please review and advise. * Telephone Encounter - Annmarie Todd LPN - 07/29/2023 3:21 PM EDT ----- Message from Franklin Mirza PA-C sent at 07/28/2023 5:00 PM EDT ----- I imagine she knows, but let her know stress test showed no ischemia. Maciej Albert PA-C documented in this encounterPromedica Memorial Hospital09-18-2023 History of Present illness Narrative* Coty Campos RN - 07/28/2023 12:14 PM EDT RADIOLOGY SERVICE PROGRESS NOTE SERVICE DATE: 07/28/2023 SERVICE TIME: 914 PATIENT IDENTITY VERIFICATION COMPLETED USING TWO (2) METHODS: Patient confirmed name and Date of verbally. ALLERGIES AND MEDICATIONS REVIEWED BY: Coty Campos RN PROCEDURE TYPE: NM STRESS: 0.4 mg of Lexiscan was administered IV at 0936 over 10 Seconds by Coty Campos RN Reversal agent used:none LOT [id number] EXP 02/01 IV SITE: IV palced by nuclear tecnologist POST EXAM PIV STATUS: Discontinued by Magneto Repairer PATIENT DISCHARGED TO: Nuclear Medicine Department for post stress imaging A Diagnostic radioactive procedure has taken place, with no further precautions necessary other than routine body substance precautions. More information regarding radiation safety can be found usingthis link: [email or web address]%20Nuclear%20Medicine%[email or web address] SIGNATURE: Coty Campos RN PATIENT NAME:Юлия Prasad DATE: 07/28/23 TIME: 12:14 PM documented in this encounterPromedica Memorial Hospital09-18-2023 History of Present illness Narrative* Corina De Souza RT(R) - 07/28/2023 8:00 AM EDT RADIOLOGY SERVICE PROGRESS NOTE SERVICE DATE: 07/28/2023 [...] creatinine assay has traceable calibration to isotope dilution- mass spectrometry. Refer to KDIGO guidelines for clinical interpretation. In patients with unstable renal function, e.g. those with acute kidney injury, the eGFRmay not accurately reflect actual GFR. eGFR- Date Value Ref Range Status 09/13/2020 >60 Final P.O.C.T. RESULTS: N/A July 28, [address] PERFORMED: No IV SITE: Ambulatory: A peripheral IV was started in the Right antecubital site with a Angio cath: 22 gauge. POST EXAM PIV STATUS: Discontinued PROCEDURE TYPE: NM Stress: 12.3 mCi [id number] was administered IV for Rest Imaging at 08:20 by Corina De Souza. 33.8 mCi [id number] was administered IV for Stress Imaging at 09:36 by Corina De Souza. ADMINISTRATION TIME: PATIENT DISCHARGED TO: Ambulatory patient, left DC department area. A Diagnostic radioactive procedure has taken place, with no further precautions necessary other than routine body substance precautions. More information regarding radiation safety can be found usingthis link: [email or web address]%20Nuclear%20Medicine%[email or web address] SIGNATURE: KAUR Best) PATIENT NAME: Юлия Prasad DATE: July 28, 2023 TIME: 10:00 AM PAGER/CONTACT #: documented in this encounterPromedica Memorial Hospital07-17-2023 Miscellaneous Notes* Telephone Encounter - Vesna Barboza MA - 05/26/2023 2:38 PM EDT MC message sent. Vesna Barboza MA * Telephone Encounter - Clarice Petersen MD - 05/26/2023 12:32 PM EDT Hard to put it together from notes but I think they held her olmesartan? Lets resume it and have her follow up with me after stress test. documented in this encounterPromedica Memorial Hospital07-10-2023 Miscellaneous Notes* Telephone Encounter - Akosua Mistry LPN - 05/19/2023 1:03 PM EDT ARIADNA: 02/28/22 Patient phones requesting refills as follows: [...] advise. Akosua Mistry LPN documented in this encounterPromedica Memorial Hospital07-10-2023 Miscellaneous Notes* Telephone Encounter - Sirisha Man LPN - 05/19/2023 12:59 PM EDT Patient phones requesting refills as follows: Requested Prescriptions Pending Prescriptions Disp Refills citalopram (CELEXA) 40 mg tablet 90 tablet 1 Sig: Take 1 tablet by mouth once daily. ARIADNA-05/01/23 Labs-05/01/23 NOV-11/20/23 Please review and advise. Sirisha Man LPN documented in this encounterPromedica Memorial Hospital07-10-2023 Miscellaneous Notes* Telephone Encounter - Sirisha Man LPN - 05/19/2023 12:58 PM EDT Patient phones requesting refills as follows: Requested Prescriptions Pending Prescriptions Disp Refills metFORMIN (GLUCOPHAGE) 500 mg tablet 90 tablet 5 Sig: Take 1 tablet by mouth three times daily. ARIADNA-05/01/23 Labs-05/01/23 NOV-09/29/23 Please review and advise. Sirisha Man LPN documented in this encounterPromedica Memorial Hospital06-22-2023 History of Present illness Narrative* Franklin Mirza PA-C - 05/01/2023 2:00 PM EDT 67 year old female with c/o 4 [...] Isolated VEs were rare (<1.0%), and no VECouplets or VE Triplets were present. 08/08/2022 nuclear stress not scheduled 02/06/2022 PVR ank/jackson/toe bilat: RIGHT SIDE JITENDRA: 1.19; TBI: 0.84, WNL at rest LEFT SIDE: JITENDRA: 1.19; TBI: 0.96, WNL at rest 04/02/2018 pharmacologic stress test nuclear imaging: [facility], Dr. Moodispaw: Peak heart rate 93, 58% predicted MHR, [...] k/uL 4.21 (H) 4.45 (H) 4.22 (H) Bollinger% % 6.3 6.3 6.1 Abs Bollinger <0.87 k/uL 0.57 0.59 0.50 Eosin% % [...] DX W/COLLJ SPEC WHEN PFRMD Done in [place] unable to obtain COLONOSCOPY FLX DX W/COLLJ [...] HISTORY OF 10/13/2017 Excision nasal mass, Dr Juarez Harris REMOVE TONSIL AND ADENOI UNDER AGE [...] 1 capsule by mouth once daily. 90 capsule3 montelukast (SINGULAIR) 10 mg tablet Take 1 [...] breath. 1 Inhaler 11 blood sugar diagnostic (Blueprint GeneticsTOUCH VERIO TEST STRIPS) test strip Test blood [...] Inhale 1 Puff as instructed twice daily. 60Each 1 blood sugar diagnostic (BLOOD GLUCOSE TEST) [...] - Dx: Type 2 DM - Controlled E11.91 Each 0 COMPOUNDED PRESCRIPTION Tens unit DX: [...] - Recommend regular aerobic exercise Complete labs. Franklin Mirza PA-C documented in this encounterPromedica Memorial Hospital06-19-2023 History of Present illness Narrative* Carlos Dickson MD - 04/28/2023 3:00 PM EDTAssociated Order(s): Large Joint Arthro/Inj: R subacromial bursa Post-Procedure Diagnose(s): Calcific tendonitis of right shoulder; Shoulder impingement Carlos Dickson MD Department of Orthopaedics Orthopaedics [address] [facility] [address] Dept: [phone] Dept April 28, 2023 CHIEF COMPLAINT: Established [...] right shoulder. Anti-inflammatory. We may need to getfurther imaging as she has had a couple [...] subacromial bursa Informed Consent Consent Obtained: Verbal [place] Protocol A moment to CARE was completed. [...] rotator cuff calcific tendinosis. No acute abnormality Promotional Demonstrator: TRI Transcribe Date/Time: Mar 28 2023 9:55P [...] DX W/COLLJ SPEC WHEN PFRMD Done in [place] unable to obtain COLONOSCOPY FLX DX W/COLLJ [...] HISTORY OF 10/13/2017 Excision nasal mass, Dr Juarez Harris REMOVE TONSIL AND ADENOI UNDER AGE [...] (see HPI) Psych (no depression, anxiety) Carlos Dickson MD documented in this encounterPromedica Memorial Hospital06-09-2023 Miscellaneous Notes* Telephone Encounter - Beatrice Luna Ma - 04/18/2023 3:27 PM EDT Patient has been identified by name and [...] to pharmacy. No need to notify patient. Beatrice Luna Ma documented in this encounterPromedica Memorial Hospital05-16-2023 History of Present illness Narrative* Jyoti Obrien RT(R) - 03/25/2023 2:20 PM EDT Radiology Service Progress Note PATIENT NAME: Юлия Prasad DATE OF SERVICE: March 25, 2023 TIME: 2:17 PM PATIENT IDENTITY VERIFICATION COMPLETED USING TWO (2) IDENTIFIERS: Name and Date of confirmedby patient verbally. FALL SCREENING: Has the patient had 2 falls in the last year or 1 fall with injury or currently using an Ambulatory Assistive Device (Walker, Cane, Wheelchair, Crutches, etc.)? No PATIENT GENDER DATA: Female. status: : No status: NO. PATIENT RELEVANT IMPLANT DATA REVIEWED: Not Applicable RADIOLOGY DEPARTMENT: Mammography PERIPHERAL IV DATA: Not applicable SIGNED BY: RT Octavio(R) March 25, 2023 2:17 PM documented in this encounterPromedica Memorial Hospital05-12-2023 Miscellaneous Notes* Telephone Encounter - Silvia Kerr MA - 03/21/2023 1:17 PM EDT Patient has been identified by name and date of : Yes Requested Prescriptions Pending Prescriptions Disp Refills coenzyme Q10 (COENZYME Q-10) 100 mg cap capsule 60 capsule 11 Sig: Take 1 capsule by mouth twice daily. RX INSTRUCTIONS: Patient aware RX will be sent to pharmacy. No need to notify patient. Silvia Kerr MA Ariadna: 02/2023 Nov: 03/2023 Last refill; 02/2022 documented in this encounterPromedica Memorial Hospital04-20-2023 History of Present illness Narrative* Lorin Ching RDMS - 02/27/2023 10:45 AM EDT Radiology Service Progress Note PATIENT NAME: Юлия Prasad DATE OF SERVICE: February 27, 2023 TIME: 11:24 AM PATIENT IDENTITY VERIFICATION COMPLETED USING TWO (2) IDENTIFIERS: Name and Date of confirmedby patient verbally. FALL SCREENING: Has the patient [...] 27, 2023 11:24 AM documented in this encounterPromedica Memorial Hospital04-14-2023 Miscellaneous Notes* Telephone Encounter - Barbie Gonsalez Ma - 02/21/2023 11:05 AM EDT Patient was notified that finger is looking better so aware can stop antibiotic and will call in with update Friday Barbie Gonsalez Ma * Telephone Encounter - Clarice Petersen MD - 02/21/2023 10:58 AM EDT How is the finger. If looking and feeling better, would hold the antibiotic, call if worsens and let me know on Friday how doing. * Telephone Encounter - Jeremiah Galindo LPN - 02/21/2023 10:54 AM EDT Pt calls office with update. She states she was into see PCP on 02/17, started on Keflex. Since Friday she has had diarrhea- runny/slimy, ranges from light to darker in color. No blood in stool. No abd pain, but stomach is gurgling. Pt states she has also started feeling itchy all over but no visible rash other than on her bilateral wrists. She benadryl at home but has not taken any yet. She hasnot taken any Immodium either. She wanted to ask provider opinion before taking anything. Please advise. Jeremiah Galindo LPN documented in this encounterPromedica Memorial Hospital04-14-2023 Miscellaneous Notes* Telephone Encounter - Erica Phelan - 02/21/2023 9:44 AM EDT Called PT LVM to call back and schedule US ABD RUQ. Erica BELLE * Telephone Encounter - Amanda Rose - 02/20/2023 4:36 PM EDT Patient informed and verbalized understanding. Sending to schedulers to help assist in scheduling US. Amanda Rose * Telephone Encounter - Clarice Petersen MD - 02/20/2023 4:23 PM EDT Results are overall ok. Lipase or pancreas enzymes are still very minimally up. Check ruq us to be on safe side documented in this encounterPromedica Memorial Hospital04-10-2023 History of Present illness Narrative* Clarice Petersen MD - 02/17/2023 1:52 PM EDT Patient presents with: Suture Removal: Right middle finger HPI: Patient presents today for office visit for ER follow up. HOSPITAL/ER FOLLOW UP: Reason for visit: laceration to right middle Which facility: [facility] Date of visit: 02/05/23 Diagnosis: laceration [...] for wheezing/shortness of breath. blood sugar diagnostic (ITDatabaseUCH VERIO TEST STRIPS) test strip Test blood [...] DX W/COLLJ SPEC WHEN PFRMD Done in [place] unable to obtain COLONOSCOPY FLX DX W/COLLJ [...] HISTORY OF 10/13/2017 Excision nasal mass, Dr Juarez Harris REMOVE TONSIL AND ADENOI UNDER AGE [...] past medical history, surgical history, family history andsocial history today. REVIEW OF SYSTEMS All other [...] answered. Patient expressed understanding of treatment plan. Clarice Petersen MD documented in this encounterPromedica Memorial Hospital03-29-[address] Cotton [facility] February 05, 2023 7:14pm Note Date/Time February 05, 2023 6:2 8pm [facility] Medical Records Department [address] [place] [address] Emergency Department Summary 02/05/23 MR#: [id number] Acct: [id number] Name: ЮЛИЯ PRASAD Rep #:[id number] 25 : 1955 67 From: Satya Cotton MD PCP: Dr. Clarice Petersen MD Status:REG E R Location: ED HPI History of Present Illness Chief Complaint: Laceration Detail of Chief Complaint: Laceration dorsal surface right long finger Informant: patient Occured/Mechanism Mechanism/Context: Yes other see comment below Comment: Patient sustained a laceration distal to the DIP joint dorsal surface right long finger when she was cleaning dishes. She states when she was puttingher hand down she cut herself on a knife. Onset/Context/Timing Onset: Hours Context: Sudden Onset Timing: Continuous Quality of Pain: Aching Location: Distilled DIP joint right long finger Current Severity: Mild Maximum Severity: Severe Worsened by: Flexion extension Relieved by: Nothing Associated Symptoms Associated Symptoms: Negative for Parasthesia, Weakness or Loss of Funtion Narrative Narrative: Patient is a 67-year-old onztq-[id number]-ynkitnai woman who presents with laceration dorsal surface of the right long finger distal of the DIP joint. This occurred prior to arrival. Tetanus is unknown. She denies paresthesia, anesthesia or motor aches. She denies loss of function. She has not anti-Dawkins she is on aspirin. She does have history of diabetes. Tetanus Immunization: Unknown Prior similar symptoms: No Recent Illness/Hospitalization: No PFSH PFSH Home Medications buspirone 5 mg tablet 5 mg PO BID mental health 06/22/16 [History Last Taken 08/12/19] coenzyme Q10 100 mg capsule (Co Q-10) 100 mg PO BID supplement 06/22/16 [History Last Taken 08/12/19] gabapentin 300 mg capsule 600 mg PO BID nerve pain 06/22/16 [History Last Taken 08/12/19] aspirin 81 mg tablet,delayed release (Adult Low Dose Aspirin) 81 mg PO DAILY health maintenance 10/06/17 [History Last Taken 08/12/19] montelukast 10 mg tablet 10 mg PO QHS allergies 10/06/17 [History Last Taken 08/11/19] rosuvastatin 10 mg tablet 10 mg PO QHS cholesterol 10/06/17 [History Last Taken 08/11/19] tizanidine 4 mg tablet 4 - 8 mg PO BID PRN PRN Pain 10/06/17 [History Last Taken 08/12/19] trazodone 100 mg tablet 100 mg PO QHS sleep 10/06/17 [History Last Taken 08/11/19] Lactobacillus acidophilus (Acidophilus capsule) 1 ea PO DAILY probiotic 04/01/18[History Last Taken 08/12/19] lisinopril 5 mg tablet 5 mg PO DAILY #30 tabs 04/02/18 [Rx Last Taken 08/12/19] ondansetron 4 mg disintegrating tablet 4 mg PO Q8H PRN PRN Nausea #10 tabs 04/11/18 [Rx Last Taken Unknown] benzonatate 100 mg capsule 100 mg PO TID PRN PRN Cough 08/12/19 [History Last Taken 08/11/19] bupropion HCl 150 mg 24 hr tablet, extended release 150 mg PO DAILY 08/12/19 [History Last Taken 08/11/19] celecoxib 100 mg capsule 100 mg PO BID 08/12/19 [History Last Taken 08/12/19] cholecalciferol (vitamin D3) 25 mcg (1,000 unit) capsule 1,000 unit PO DAILY 08/12/19 [History Last Taken 08/12/19] citalopram 40 mg tablet 40 mg PO QHS 08/12/19 [History Last Taken 08/11/19] furosemide 20 mg tablet 20 mg PO DAILY 08/12/19 [History Last Taken 08/12/19] hydrocodone-acetaminophen 5-325mg 5mg-325mg 1 tab PO Q8H PRN PRN Pain Score 1- 08/1908/12/19 [History Last Taken 08/12/19] metformin 500 mg tablet 500 mg PO TID 08/12/19 [History Last Taken 08/12/19] pantoprazole 40 mg tablet,delayed release 40 mg PO DAILY 08/12/19 [History Last Taken 08/12/19] pseudoephedrine HCl 60 mg tablet 60 mg PO Q6H PRN PRN Congestion 08/12/19 [History Last Taken 08/11/19] ranitidine HCl 150 mg tablet 300 mg PO DAILY 08/12/19 [History Last Taken 08/10/19] mometasone-formoterol HFA 100 mcg-5 mcg/actuation aerosol inhaler 13 gm IH DAILY09/18/20 [History Last Taken Unknown] hydrocodone-acetaminophen 5-325mg 5mg-325mg 1 tab PO Q6H PRN PRN Pain 3 days #10TABLETS 01/12/23 [Rx Last Taken Unknown] Allergy/AdvReac Type Severity Reaction Status Date / Time ciprofloxacin [From Cipro] Allergy Rash Verified 02/05/23 18:17 ciprofloxacin HCl Allergy Rash Verified 02/05/23 18:17 [From Cipro] clindamycin Allergy throat Verified 02/05/23 18:17 swelling-see comment section fluoxetine HCl [From Prozac] Allergy Rash Verified 02/05/23 18:17 metronidazole Allergy Anaphylaxis Verified 02/05/23 18:17 Penicillins Allergy Rash Verified 02/05/23 18:17 Sulfa (Sulfonamide Allergy Rash Verified 02/05/23 18:17 Antibiotics) adhesive AdvReac redness Verified 02/05/23 18:17 with bandaids amoxicillin trihydrate AdvReac thrush/yeast Verified 02/05/23 18:17 [From Augmentin] infection potassium clavulanate AdvReac thrush/yeast Verified 02/05/23 18:17 [From Augmentin] infection Social History (Updated 02/05/23 @ 18:[address] Satya Cotton MD) household members: none Smoking Status: Current every day smoker tobacco type: cigarettes ROS ROS ED Integumentary Reports other Details: Laceration right long finger Neurologic Neurologic: Reports other Details: Detailed in the HPI narrative ; Denies paresthesias Hematologic/Lymphatic Hematologic/Lymphatic: Denies easy bleeding or easy bruising EXAM Physical Exam Const Vital Signs: 02/05/23 18:16 Temperature 96.2 F L Temperature Source Temporal Pulse Rate 92 Respiratory Rate 18 Blood Pressure 133/67 H Blood Pressure Mean 89 Pulse Ox 100 Oxygen Delivery Method Room Air Positive well nourished and well developed General Appearance ED: well developed and NAD HEENT normocephalic and atraumatic Eyes PERRL and EOMs intact bilaterally Resp normal respiratory effort Cardio regular rate and regular rhythm Extremity full ROM; Negative for normal to inspection Extremity Narrative: 1.5 cm laceration dorsal side right long finger distal to the DIP joint. The extensor commonest tendon is functionally intact. The flexor digitorum superficialis and flexor digitorum profundus are intact. Capillary refill normal. Two-point discrimination normal. There is no subungual hematoma noted. There is no evidence Neuro oriented x3, CN's II-XII intact bilaterally and no sensory deficits noted Psych mental status grossly normal Skin Skin Narrative: Laceration previously mentioned under the extremity portion of the medical record. MDM MDM MDM Narrative Medical decision making narrative: Patient has a laceration that will require repair. Will anesthetize the digit. After the digit has been anesthetized will perform more complete exam to determine if there is injury to the extensor commonest tendon. And to evaluate if there is evidence of a traumatic arthrotomy. Procedures Other Procedures Procedure(s): Suture note: Digit was anesthetized by digital block. 1% lidocaine was used. 2.5 cc was infiltrated. Once patient states she had no sensation digit was placed through range of motion. There is no evidence of involvement of the joint or tendon. Wound was irrigated with 100 cc of normal saline. Using 5-0 Ethilon 3 simple interrupted sutures was placed. Patient tolerated the procedure. Discharge Plan Triage Chief Complaint: Laceration ED Provider: Satya Cotton Dx/Rx/DC Orders Clinical Impression: Laceration of finger of right hand, Tobacco abuse, History of diabetes mellitus Instructions: ED Laceration Hand with ... Prescriptions: No Action buspirone 5 MG tablet 5 mg PO BID Label Comments: DEPRESSION gabapentin 300 MG capsule 600 mg PO BID coenzyme Q10 [Co Q-10] 100 MG capsule 100 mg PO BID tizanidine 4 MG tablet 4 - 8 mg PO BID PRN PRN (Reason: Pain) aspirin [Adult Low Dose Aspirin] 81 MG tablet,delayed release (DR/EC) 81 mg PO DAILY trazodone 100 MG tablet 100 mg PO QHS montelukast 10 MG tablet 10 mg PO QHS Label Comments: ALLERGIES rosuvastatin 10 MG tablet 10 mg PO QHS Label Comments: CHOLESTEROL Lactobacillus acidophilus [Acidophilus] 1 EACH capsule 1 ea PO DAILY lisinopril 5 MG tablet 5 mg PO DAILY Qty: 30 0RF ondansetron 4 MG tablet 4 mg PO Q8H PRN PRN (Reason: Nausea) Qty: 10 0RF benzonatate 100 MG capsule 100 mg PO TID PRN PRN (Reason: Cough) Label Comments: Take 1 capsule by mouth three times daily as needed. ranitidine HCl 150 MG tablet 300 mg PO DAILY furosemide 20 MG tablet 20 mg PO DAILY Label Comments: Take 1 tablet by mouth once daily. pseudoephedrine HCl 60 MG tablet 60 mg PO Q6H PRN PRN (Reason: Congestion) cholecalciferol (vitamin D3) 1,000 UNIT capsule 1,000 unit PO DAILY bupropion HCl 150 MG tablet extended release 24 hr 150 mg PO DAILY metformin 500 MG tablet 500 mg PO TID Label Comments: TAKE 1 TABLET THREE TIMES DAILY citalopram 40 MG tablet 40 mg PO QHS hydrocodone-acetaminophen 1 EACH tablet 1 tab PO Q8H PRN PRN (Reason: Pain Score 1-10/10) Label Comments: TAKE 1 TABLET EVERY 8 HOURS NEEDED FOR PAIN pantoprazole 40 MG tablet 40 mg PO DAILY celecoxib 100 MG capsule 100 mg PO BID Label Comments: Take 1 capsule by mouth twice daily. mometasone-formoterol 8.8 GM HFA aerosol inhaler 13 gm IH DAILY hydrocodone-acetaminophen [hydrocodone-acetaminophen] 5-325 mg tablet 1 tab PO Q6H PRN PRN (Reason: Pain) 3 Days Qty: 10 0RF Primary Care Provider: Clarice Petersen Referrals: Clarice Petersen MD [Primary Care Provider] - 10-14 Days suture removal Activity Restrictions/Additional Instructions: Tube1. Keep digit clean and dry as possible for the next 48 to 72 hours. Apply bacitracin ointment 3 times a day for the next 5 to 7 days. Disposition Disposition: Home, Self Care What to do if you have Problems For any increased pain, shortness of breath, bleeding, nausea or vomiting, chestpain, or any unexpected problems, contact your Primary Care Provider. Call [facility] ([phone]) or report to the closest Emergency Room. Call 911 if necessary. 02/05/231913 <Electronically signed by Satya Cotton MD> Cosigner Signature (if applicable): CC: Dr. Clarice Petersen MD ~ Signed [facility] Work Phone: [phone]) 363-435303-29-2023 Hospital Discharge instructions Additional Instructions Tube1. Keep digit clean and dry as possible for the next 48 to 72 hours. Apply bacitracin ointment 3 times a day for the next 5 to 7 days.[facility] Work Phone: [phone]) 354-843403-20-2023 Miscellaneous Notes* Telephone Encounter - Jeremiah Galindo LPN - 01/27/2023 1:42 PM EDT Pt notified. She verbalized understanding. Jeremiah Galindo LPN * Telephone Encounter - Clarice Petersen MD - 01/27/2023 1:06 PM EDT Ok. Call if worsens. Recheck labs in two weeks * Telephone Encounter - Jeremiah Galindo LPN - 01/27/2023 12:48 PM EDT TC to pt, notified of results/provider response. Pt states she has been feeling ok the last 3-4 days. No nausea/diarrhea. R side still bothers her some, but nothing intense like it had been. She is drinking fluids. Jeremiah Galindo LPN * Telephone Encounter - Clarice Petersen MD - 01/27/2023 11:29 AM EDT Labs show calcium is up. But has been normal when rechecked with ionized in the past. Lipase or pancreatic enzyme is mildly up. How is she feeling? documented in this encounterPromedica Memorial Hospital03-17-2023 Miscellaneous Notes* Telephone Encounter - Jeremiah Galindo LPN - 01/24/2023 2:03 PM EDT Patient phones requesting refills as follows: Requested Prescriptions Pending Prescriptions Disp Refills Cholecalciferol, Vitamin D3, 25 mcg (1,000 unit) cap 90 capsule 3 Sig: Take 1 capsule by mouth once daily. ARIADNA 01/23/23 NOV 03/27/23 Please review and advise. Jeremiah Galindo LPN documented in this encounterPromedica Memorial Hospital03-16-2023 History of Present illness Narrative* Clarice Petersen MD - 01/23/2023 4:34 PM EDT Patient presents with: Acute Visit HPI:This Team Access Model visit is a virtual encounter. It required patient- provider interaction for the medical decision making as documented below. Patient has elected to have a visit through distance medicine I have communicated my name and active licensure. The patient's identity and physical location wereverified at the time of this visit. Either the patient or their legal home furnishings sales representative has been informed of the risks and benefits of -- and alternatives to -- treatment through a remote evaluation andconsents to proceed with the evaluation remotely. Has not felt well for a month. Started with some right chest wall, right rib cage tenderness and right arm pain Complains of vomiting and diarrhea. Had work in [facility] ER on the Work up negative. [...] for wheezing/shortness of breath. blood sugar diagnostic (Cloud9 IDE VERIO TEST STRIPS) test strip Test blood [...] DX W/COLLJ SPEC WHEN PFRMD Done in [place] unable to obtain COLONOSCOPY FLX DX W/COLLJ [...] HISTORY OF 10/13/2017 Excision nasal mass, Dr Juarez Harris REMOVE TONSIL AND ADENOI UNDER AGE [...] past medical history, surgical history, family history andsocial history today. REVIEW OF SYSTEMS All other [...] as above. Consider stool studies if continues. Clarice Petersen MD documented in this encounterPromedica Memorial Hospital03-16-2023 Miscellaneous Notes* Telephone Encounter - Danielle De Leon ROLLWAY WORKER - 01/23/2023 11:29 AM EDT Pt calls and states the following: VOMITING [...] Danielle De Leon LPN documented in this encounterPromedica Memorial Hospital02-23-2023 Miscellaneous Notes* Telephone Encounter - Rakel Shore Ma - 01/02/2023 4:51 PM EST See pt message. Looks like you said labs look good. Rakel Shore Ma documented in this encounterPromedica Memorial Hospital02-16-2023 Instructions* Patient Instructions* Franklin Mirza PA-C - 12/26/2022 12:05 PM EST [...] of the leg muscles. This will help preventblood from a pooling in the legs when standing and walking. 7. Raise the head of the bed by 6 to 10 inches. The entire bed must be at an angle. Raising only the head portion of the bed at waist level or using pillows will not be effective. Raising the head ofthe bed will reduce urine formation overnight and [...] can improve orthostatic intolerance. documented in this encounterPromedica Memorial Hospital02-16-2023 History of Present illness Narrative* Franklin Mirza PA-C - 12/26/2022 10:00 AM EST 67 year old female with c/o 6 [...] is going to beat out of my chest. Intermittently occurs throughout the day with exertion. [...] was not relievable with Tums, eating bland foods,and medications for GERD. Attributes to eating chili [...] 1.00 - 4.00 k/uL 2.92 3.17 3.77 Bollinger% % 5.8 5.1 5.0 Abs Bollinger <0.87 k/uL 0.38 0.43 0.41 Eosin% % [...] obstructive pulmonary disease, unspecified copd type (hcc) Pulmonary htn (hcc) Asthma with copd (hcc) Tobacco abuse Glue Maker: Dr.Elizabeth Ruiz, last appointment was in April [...] (hcc) Diabetes Mellitus Type 2: Current medications: Metformin 500 mg 1 tablet 3 times daily Dulaglutide 1.5 mg subcu weekly Taking medication as directed consistently? Yes Medication side effects: None Medical Issues / Complications: hypertension, hyperlipidemia, and peripheral vascular disease Checking blood sugars at home? When she feels off, maybe x 1-2 week. Usually in 120s [...] eye exam: Goes annually, next appointment with linen folder in 2022. Last foot exam: About a [...] cancer, nasal tip No new lesions. 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 Lumbar degenerative disc [...] DX W/COLLJ SPEC WHEN PFRMD Done in [place] unable to obtain COLONOSCOPY FLX DX W/COLLJ [...] HISTORY OF 10/13/2017 Excision nasal mass, Dr Juarez Harris REMOVE TONSIL AND ADENOI UNDER AGE [...] 1 capsule by mouth once daily. 90 capsule3 lidocaine (LIDODERM) 5 % Apply 1 Patch as directed every 12 hours. Remove old patch prior to placing new patch. Location: back 15 Patch 0 Fluorouracil (EFUDEX) 5 % cream Apply to affected areas twice daily for 2-4 weeks or until red blistering reaction occurs. 40 g 0 fluticasone-salmeterol (ADVAIR, WIXELA) 250-50 mcg/dose Inhale 1 Puff as instructed twice daily. 60Each 1 blood sugar diagnostic (BLOOD GLUCOSE TEST) [...] 2 Puffs as instructed every 4 hours asneeded. 18 g 5 clobetasol (TEMOVATE) 0.05 % [...] - Dx: Type 2 DM - Controlled E11.91 Each 0 COMPOUNDED PRESCRIPTION Tens unit DX: [...] Each 1 Each TOPICAL PRN Renata Sorensen APRN.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 1 Each at 04/16/21 1357 HIV SCREENING [...] 20 MG TABLET 2. SVT (supraventricular tachycardia) ([facility]) - ICD9: 427.89, ICD10: I47.1 - No new symptoms - Suspect orthostatic intolerance: se d/c instructions. Instructed to push fluids with some extra salt, use compression stockings, rise more slowly. 3. PAD (peripheral artery disease) ([facility]) - ICD9: 443.9, ICD10: I73.9 - No current symptoms - Continue current medications 4. Chronic obstructive pulmonary disease, unspecified COPD type ([facility]) - ICD9: 496, ICD10: J44.9 - No new changes - Continue current medications 5. Pulmonary HTN ([facility]) - ICD9: 416.8, ICD10: I27.20 - Stable 6. Asthma with COPD ([facility]) - ICD9: 493.20, ICD10: J44.9 - Mild [...] med changes and status, address HM topics. Franklin Mirza PA-C documented in this encounterPromedica Memorial Hospital01-13-2023 Miscellaneous Notes* Telephone Encounter - Sade Garcia LPN - 11/22/2022 5:11 PM EST Scheduled 12/13/22 documented in this encounterPromedica Memorial Hospital12-16-2022 Miscellaneous Notes* Telephone Encounter - Jeremiah Galindo LPN - 10/25/2022 4:38 PM EST Patient phones requesting refills as follows: Requested Prescriptions Pending Prescriptions Disp Refills furosemide (LASIX) 20 mg tablet 30 tablet 5 Sig: Take 1 tablet by mouth once daily. rosuvastatin (CRESTOR) 10 mg tablet 30 tablet 5 Sig: Take 1 tablet by mouth daily at bedtime. pantoprazole DR (PROTONIX) 40 mg tablet 30 tablet 5 Sig: Take 1 tablet by mouth once daily. ARIADNA 08/08/22 NOV 12/13/22 Please review and advise. Jeremiah Galindo LPN documented in this [facility]09-29-[facility] Nurse Note* Beatrice Luna Ma - 08/08/2022 1:24 PM EDT EVENT MONITOR DISPOSABLE PATCH INSTRUCTIONS Patient Name: Юлия Prasad [facility] Number: [id number] Skin prepped and cleansed with alcohol Patch secured to prepped area Monitor Activated Serial #: [id number] Patient Instructed: Prescribed order timeframe Bathing guidelines Usage of event button and diary documentation Return of monitor at the end of prescribed order Call with problems [phone] or [phone]. [phone] Patient expresses a good understanding of instructions Beatrice Luna Ma documented in this [facility]09-29-20[facility] Instructions* Patient Instructions* Franklin Mirza PA-C - 08/08/2022 11:57 AM EDT HEALTH MAINTENANCE: Your Body mass index is 27.96 kg/m . (Target BMI: 19-25) Regular aerobic exercise, low fat diet, and periodic exams are recommended Living Will & Medical Power of Banquet Lead recommended Periodic Pap smear per risk profile. [...] age 47 BONE MINERAL DENSITY PATIENT INSTRUCTIONS Bone mineral density testing measures the amount of calcium in certain parts of your bones. This information determines how strong your bones are. The test is used to detect osteoporosis, a disease in which the bone's mineral content and density are low, increasing a person's risk of fractures. Thelumbar spine (lower back) and the hip are [...] your usual activities immediately. documented in this encounterPromedica Memorial Hospital09-29-2022 History of Present illness Narrative* Franklin Mirza PA-C - 08/08/2022 11:20 AM EDT Welcome to Medicare Annual wellness Shantel Prasad [...] DX W/COLLJ SPEC WHEN PFRMD Done in [place] unable to obtain COLONOSCOPY FLX DX W/COLLJ [...] HISTORY OF 10/13/2017 Excision nasal mass, Dr Juarez Harris REMOVE TONSIL AND ADENOI UNDER AGE [...] for wheezing/shortness of breath. blood sugar diagnostic (Blueprint GeneticsTOUCH VERIO TEST STRIPS) test strip Test blood [...] 2 Puffs as instructed every 4 hours asneeded. clobetasol (TEMOVATE) 0.05 % cream apply to [...] Shantel reports her alcohol use as never. Natalyedenies regular aerobic exercise. She watches her diet [...] made it for you to do your work,take care of things at home, or get [...] with the phone, transportation, shopping, preparing meals, housework,laundry, medications or managing money? No 3. Does [...] and concerns from family or care takers. Fan Runner Beneficiary Personalized Health Plan: Referral to specialist Community based programs for self-management and wellness recommended Programs for prevention recommended Physical activity recommendation Smoking cessation (yes/no) Documentation Weight loss recommendations Screening Labs/Orders recommended M SHYLA Ross ACTIVE PROBLEM LIST Chronic obstructive pulmonary disease, unspecified copd type (hcc) Asthma with copd (hcc) Pulmonary htn (hcc) Tobacco abuse Glue Maker: none. Interval history: Current medications: Advair 250-50 mcg/ dose Albuterol HFA 90mcg/ actuation 2 puffs q4h prn Worsening shortness of breath: No. Cough: smoker's cough. Wheezing: No. Smoking: Yes. Compliant with medications: [...] a few seconds. No falls. Headache: Yes, splitting, back of eyeballs hurt, usually everyday. Takes Aleve 2 tabs which alleviates most of the episodes Sometimes nauseated- takes Zofran. No vomiting. No visual scotomata. Feels like eyes are pulsing. Dizziness: as above always off-balance. [place] into doors, bueno. Notes vertigo if extends [...] Last Mg level if on PPI chronically: 1.2017. Heartburn is controlled: No. Dysphagia: Yes. Bloody or black stools: has intermittent bright red bleeding with pain, both internal and external hemorrhoids, stools can be quite large, hard Bowel changes: Yes. As above Last EGD and/or colonoscopy: 02/18/2022 EGD [facility] small hiatal hernia without gross reflux [...] back pain laterality, unspecified chronicity Was seeing [facility] pain management Still has significant pain, current medications help Carpal tunnel 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 Unable to get to this due to time Acute pain of right shoulder Acute pain of left shoulder Right shoulder pop Has seen Dr. Dickson. Has not scheduled recommended Severe episode of [...] distress. Alert and oriented all spheres. Normal affectand cognition. Speech normal. No deficits to learning [...] Chronic obstructive pulmonary disease, unspecified COPD type ([facility]) - ICD9: 496, ICD10: J44.9 (primary diagnosis) 2. Asthma with COPD ([facility]) - ICD9: 493.20, ICD10: J44.9 Progressive SOB but little exercise. PFT WNL. 3. Pulmonary HTN ([facility]) - ICD9: 416.8, ICD10: I27.20 Mild 4. [...] weight loss. 7. PAD (peripheral artery disease) ([facility]) - ICD9: 443.9, ICD10: I73.9 No current sx 8. Type 2 diabetes mellitus with diabetic neuropathy, without long-term current use of insulin (HCC) - ICD9: 250.60, 357.2, ICD10: E11.40 Controlled. [...] major depressive disorder, without psychotic features (HCC) - ICD9:296.33, ICD10: F33.2 Feels she is doing well [...] MG/5 ML INTRAVENOUS SYRINGE - INSERT IV (MI,AZ) - IV DISCONTINUE 25. SVT (supraventricular tachycardia) (HCC) - ICD9: 427.89, ICD10: I47.1 - OUTSIDE VENDOR CARDIAC OUTPATIENT EXTENDED RHYTHM RECORDING (WITHOUT TELEMETRY) 26. Palpitations - ICD9: 785.1, ICD10: R00.2 Mildly symptomatic - OUTSIDE VENDOR CARDIAC OUTPATIENT EXTENDED RHYTHM RECORDING (WITHOUT TELEMETRY) F/u when results available. 65 minute visit Franklin Mirza PA-C Some of this note may have been copied and pasted for the purpose of history context and comparison. documented in this encounterPromedica Memorial Hospital08-26-2022 Miscellaneous Notes* Telephone Encounter - Beatrice Luna Ma - 07/05/2022 3:06 PM EDT ARIADNA 06/12/22 NOV 12/13/22 documented in this encounterPromedica Memorial Hospital08-03-2022 History of Present illness Narrative* Clarice Petersen MD - 06/12/2022 3:15 PM EDT Patient presents with: Diabetes: follow up. Discuss [...] trapped occasionally in her vagina. Suggested seeing public health veterinarian if an issue. Component Latest Ref Rng [...] for wheezing/shortness of breath. blood sugar diagnostic (Cloud9 IDE VERIO TEST STRIPS) test strip Test blood [...] 2 Puffs as instructed every 4 hours asneeded. clobetasol (TEMOVATE) 0.05 % cream apply to [...] mellitus (HCC) Diverticulitis Dysphagia Emphysema of lung ([facility]) 05/15/2015 GI bleed History of squamous cell carcinoma 04/2016 Right nasal tip Hyperlipidemia Lung nodules Pulmonary HTN (HCC) 12/08/2017 mild Squamous cell skin cancer, nasal tip 06/24/2016 Tobacco abuse 03/28/2017 PAST SURGICAL HISTORY Procedure Laterality Date ADDTL NECK SPINE FUSION 09/2004 CHOLECYSTECTOMY 2000 COLONOSCOPY 1982 COLONOSCOPY FLX DX W/COLLJ SPEC WHEN PFRMD 09/01/12 COLONOSCOPY FLX DX W/COLLJ SPEC WHEN PFRMD Done in [place] unable to obtain COLONOSCOPY FLX DX W/COLLJ [...] HISTORY OF 10/13/2017 Excision nasal mass, Dr Juarez Harris REMOVE TONSIL AND ADENOI UNDER AGE [...] past medical history, surgical history, family history andsocial history today. REVIEW OF SYSTEMS All other reviewed and negative other than HPI. HEALTH MAINTENANCE: Reviewed health maintenance issues today and recommended the following in detail. HIV SCREENING Never done SHINGRIX VACCINE(1 of 2) Never done PNEUMOCOCCAL(2 - PCV) due on 09/16/2013 VITALS: BP 112/66 Pulse 74 Ht 154.9 cm (5' 1) Wt 68.3 kg (150 lb 9.6 oz) [...] (HCC) - ICD9: 496, ICD10: J44.9 - per pulmonary 5. Squamous cell skin cancer, nasal tip - ICD9: 173.32, ICD10: C44.321 - per derm. 6. Severe episode of recurrent major depressive disorder, without psychotic features (HCC) - ICD9: 296.33, ICD10: F33.2 - doing well. 7. Screening for HIV (human immunodeficiency virus) - ICD9: V73.89, ICD10: Z11.4 - HIV 1 2 COMBO(AG/AB),WITH REFLEX TO DIFFERENTIATION Clarice Petersen RTO in six months and prn. documented in this encounterPromedica Memorial Hospital07-25-2022 Miscellaneous Notes* Telephone Encounter - Paola Kumar LPN - 06/03/2022 12:57 PM EDT Patient calling she has not completed her left shoulder xray as yet. Patient asking for order for right shoulder to have xray done. 05/30 she was making her bed and right shoulder popped, each time she moves her arm it pops. Pending order if wanted, needs diagnosis. Please advise documented in this encounterPromedica Memorial Hospital07-15-2022 History of Present illness Narrative* Clarice Petersen MD - 05/24/2022 5:00 PM EDT Patient presents with: Pain (Shoulder Pain): left [...] 2 Puffs as instructed every 4 hours asneeded. clobetasol (TEMOVATE) 0.05 % cream apply to [...] DX W/COLLJ SPEC WHEN PFRMD Done in [place] unable to obtain COLONOSCOPY FLX DX W/COLLJ [...] HISTORY OF 10/13/2017 Excision nasal mass, Dr Juarez Harris REMOVE TONSIL AND ADENOI UNDER AGE [...] past medical history, surgical history, family history andsocial history today. REVIEW OF SYSTEMS All other [...] patient. Advised them to call if any sideeffects or questions. Red flags for re-assessment reviewed [...] ICD10: F33.41 - CITALOPRAM 20 MG TABLET Clarice Petersen documented in this encounterPromedica Memorial Hospital07-15-2022 Nurse Note* Sade Garcia LPN - 05/24/2022 4:46 PM EDT Patient complains of: left arm shoulder pain. Duration: 5 days Location:back of shoulder down arm in armpit Aggravating factors:lifting arm is more painful Things that improve symptoms :has used Aleve some Denies numbness tingling Recalls no injury documented in this encounterPromedica Memorial Hospital06-24-2022 Miscellaneous Notes* Telephone Encounter - Sue Wong LPN - 05/03/2022 2:02 PM EDT Patient has been identified by name and [...] you. Sue Wong LPN documented in this encounterPromedica Memorial Hospital06-24-2022 Miscellaneous Notes* Telephone Encounter - Aniyah Grubbs LPN - 05/03/2022 1:53 PM EDT ariadna--03/12/22 Next-- 06/12/22 Last refills- Citalopram 02/22/2020 30 with 3 refills Metformin 10/16/21 90 with 5 refills odansetron 11/05/21 30 with 5 refills Furosemide 11/05/21 30 with 5 refills Rosuvastatin 11/05/21 30 with 5 refills pantoprazole 12/07/21 30 with 5 refills Last labs-- 03/12/22 documented in this encounterPromedica Memorial Hospital05-05-2022 Nurse Note* Lyly Velarde RN - 03/14/2022 8:48 AM EDT Patient ride called and on way * Lyly Velarde RN - 03/14/2022 8:35 AM EDT Patient in bed, will continue to monitor, safety maintained, call light within reach. RR even and unlabored, no complaints, all needs met at this time. documented in this encounterPromedica Memorial Hospital05-05-2022 Miscellaneous Notes* Operative Report - Fran Salcido MD - 03/14/2022 8:10 AM EDT OPERATIVE/PROCEDURE REPORT LOG ID: [id number] Surgery/Procedure Date: 03/14/2022 Incision/Procedure Start Time: 8:24 AM Incision Close/Procedure End Time: 8:28 AM Surgeon(s)/Proceduralist(s) and Water Resource Engineer(s): Fran Salcido MD - Proceduralist No Additional [...] normal fundus and cardia. The squamocolumnar junction andGE junction showed irregular Z line at 35 [...] 14, 2022 TIME: 8:39 AM PAGER/CONTACT #: [phone] documented in this encounterPromedica Memorial Hospital05-05-2022 History of Present illness Narrative* LAZARO Mason - 03/14/2022 8:00 AM EDT H&P done on 03/12/[address] Petersen. documented in this encounterPromedica Memorial Hospital05-04-2022 Miscellaneous Notes* Telephone Encounter - Barbie Karthikeyan - 03/13/2022 2:03 PM EDT Please put in a new mammogram order . She is scheduled for 04/01/22. She came in to early and the order was released. Thank you, Barbie documented in this encounterPromedica Memorial Hospital05-04-2022 History of Present illness Narrative* RT Parmjit(R) - 03/13/2022 1:50 PM EDT Radiology Service Progress Note PATIENT NAME: Shantel Prasad DATE OF SERVICE: March 13, 2022 TIME: 1:50 PM PATIENT IDENTITY VERIFICATION COMPLETED USING TWO (2) IDENTIFIERS: Name and Date of confirmedby patient verbally. FALL SCREENING: Has the patient [...] 13, 2022 1:50 PM documented in this encounterPromedica Memorial Hospital05-03-2022 History of Present illness Narrative* Clarice Petersen MD - 03/12/2022 3:08 PM EDT No chief complaint on file. HPI: Patient [...] including risks of continued use. Offered assistance tohelp quit if patient desires. bp is stable. No edema. Psych: has some days that are better than other. Overall is stable. Does still have some dysphagia. Had egd in 2018. Had gastritis and multiple gastric polyps. Some heartburn. No black or bloody stools. Had been listed as having pad by cardiology. Reserve her pulses may be reduced but not tested by them. Occasional leg pain when walking. See ov from March 30: PULM:seeing pulmonary. Reviewed most recent ct. No further follow up needed of lung nodules. The ctdid note a 1.8 cm cyst on the [...] Abs Lymph 1.00 - 4.00 k/uL 3.77 Bollinger% % 5.0 Abs Bollinger <0.87 k/uL 0.41 Eosin% % 0.7 Abs [...] for wheezing/shortness of breath. blood sugar diagnostic (ITDatabaseUCH VERIO TEST STRIPS) test strip Test blood [...] 2 Puffs as instructed every 4 hours asneeded. clobetasol (TEMOVATE) 0.05 % cream apply to [...] DX W/COLLJ SPEC WHEN PFRMD Done in [place] unable to obtain COLONOSCOPY FLX DX W/COLLJ [...] HISTORY OF 10/13/2017 Excision nasal mass, Dr Juarez Harris REMOVE TONSIL AND ADENOI UNDER AGE [...] past medical history, surgical history, family history andsocial history today. REVIEW OF SYSTEMS All other [...] hand for three days. Red flags for re-assessmentreviewed with patient in detail. Head: Normocephalic, no [...] in one year. - CARLOS EDUARDO SCREENING Clarice Petersen documented in this encounterPromedica Memorial Hospital04-27-2022 Miscellaneous Notes* Telephone Encounter - Paola Kumar LPN - 03/06/2022 3:01 PM EDT [facility] [place] [facility] calling to question Benicar rx, one half tablet daily. Computer shows Dr Petersen decreased her dose to half pill on 02/04/2022 due to elevated potassium. * Telephone Encounter - Jeremiah Galindo LPN - 03/06/2022 2:25 PM EDT Patient phones requesting refills as follows: Pending Prescriptions Disp Refills COENZYME Q10 100 MG CAPSULE 60 capsule 11 Sig: Take 1 capsule by mouth twice daily. KEVAN: No OLMESARTAN 20 MG TABLET 30 tablet 5 Sig: Take 0.5 tablets by mouth once daily. KEVAN: No ARIADNA 01/24/22 NOV 03/12/22 Please review and advise. Jeremiah Galindo LPN documented in this encounterPromedica Memorial Hospital04-21-2022 Instructions* Patient Instructions* Barbie Ruiz MD - 02/28/2022 11:18 AM EDT Low dose chest CT for cancer screening to be done at [facility] documented in this encounterPromedica Memorial Hospital04-21-2022 History of Present illness Narrative* Barbie Ruiz MD - 02/28/2022 11:00 AM EDT Images from the original note were not included. . Respiratory [place] Note Patient name: Shantel Prasad PCP: Clarice Petersen MD CC: Asthma HPI: Shantel Prasad [...] Abs Lymph 1.00 - 4.00 k/uL 3.77 Bollinger% % 5.0 Abs Bollinger <0.87 k/uL 0.41 Eosin% % 0.7 Abs [...] and bibasilar fibrotic scarring is stable. Grossly stabledensity in the right lower lung. There is [...] given stability for over 2 years. No follow-upexamination is required. No lymphadenopathy is seen within [...] Rash Sulfa Dyne Rash blood sugar diagnostic (ONETOUCH VERIO TEST STRIPS) [...] 2 Puffs as instructed every 4 hours asneeded. clobetasol (TEMOVATE) 0.05 % cream apply to [...] No Pets: None. 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 Cigarette smoker -Current one half a pack a day, former 1 pack a day smoker for over 30 years -No obvious adverse sequelae -Smoking cessation recommended 4. GERD -GERD not controlled despite H2 sharif and proton pump inhibitor. This could be contributing to her persistent asthma symptoms -Recommend GI evaluation Barbie Ruiz MD Respiratory [place] documented in this encounterProm[facility]04[facility] Nurse Note* Akosua Mistry LPN - 02/28/2022 10:28 AM EDT Intake information documented in the prior visit with Lata Dhillon RRT, CATHLEEN today. documented in this encounterPromedica [facility]04-21-2022 Procedure note* Lata Dhillon RRT - 02/28/2022 10:27 AM EDT Associated Order(s): NITRIC OXIDE, EXHALED RESPIRATORY THERAPY [...] 2022 TIME: 10:27 AM documented in this encounterPromedica Memorial Hospital04-21-2022 History of Present illness Narrative* Lata Dhillon RRT - 02/28/2022 10:14 AM EDT PULM FUNCTION SMARTBLOCK: Provider: Clarice Petersen MD Assisting Tech: Lata Dhillon RRT Spirometry: 1 Exhaled Nitric Oxide: 1 System: [id number] documented in this encounterPromedica [facility] Hospital04-05-2022 History of Present illness Narrative* Mason Smith MD - 02/12/2022 2:33 PM EDT Assessment and Plan 1. Type 2 diabetes [...] and plan as stated above and agree withall of its relevant components. Mason Smith MD February 12, 2022 2:33 PM documented in this encounterPromedica [facility] Hospital03-30-2022 History of Present illness Narrative* Evelia Cevallos RDMS - 02/06/2022 11:30 AM EDT Radiology Service Progress Note PATIENT NAME: Shantel Prasad DATE OF SERVICE: February 06, 2022 TIME: 12:31 PM PATIENT IDENTITY VERIFICATION COMPLETED USING TWO (2) IDENTIFIERS: Name and Date of confirmedby patient verbally. FALL SCREENING: Has the patient [...] 06, 2022 12:31 PM documented in this encounterPromedica Memorial Hospital03-29-2022 Miscellaneous Notes* Telephone Encounter - Jeremiah Galindo LPN - 02/05/2022 11:46 AM EDT Patient phones requesting refills as follows: Pending Prescriptions Disp Refills CHOLECALCIFEROL (VITAMIN D3) 25 MCG (1,000 UNIT) CAPSULE 90 capsule 3 Sig: Take 1 capsule by mouth once daily. KEVAN: No ARIADNA 01/24/22 NOV 03/12/22 Please review and advise. Jeremiah Galindo LPN documented in this encounterPromedica Memorial Hospital03-28-2022 Miscellaneous Notes* Telephone Encounter - Theresa Hancock Ma - 02/04/2022 11:43 AM EDT Patient notified and verbalized understanding. Theresa Hancock Ma * Telephone Encounter - Clarice Petersen MD - 02/04/2022 8:09 AM EDT One lab, vit d is still pending, however, potassium is still up. Lets cut benicar in half to 10 mg a day which can cause elevated potassium. Recheck k and bp in two weeks documented in this encounterPromedica Memorial Hospital11-10-2021 History of Present illness Narrative* Spencer Amin RT(R) - 09/19/2021 5:10 PM EST Radiology Service Progress Note PATIENT NAME: Shantel Prasad DATE OF SERVICE: September 19, 2021 TIME: 5:15 PM PATIENT IDENTITY VERIFICATION COMPLETED USING TWO (2) IDENTIFIERS: Name and Date of confirmedby patient verbally. FALL SCREENING: Has the patient had 2 falls in the last year or 1 fall with injury or currently using an Ambulatory Assistive Device (Walker, Cane, Wheelchair, Crutches, etc.)? No PATIENT GENDER DATA: Female. status: : No status: NO. PATIENT RELEVANT IMPLANT DATA REVIEWED: Not Applicable RADIOLOGY DEPARTMENT: General X-ray: Exam(s) Completed: Pelvis X-Ray: Pelvis with Hip Left Upper Extremity X-Ray(s): Humerus, left PERIPHERAL IV DATA: Not applicable SIGNED BY: RT Lisa(R) September 19, 2021 5:15 PM documented in this encounterPromedica Memorial Hospital06-11-2019 History of Past illness Narrative* Problem Noted [...] of this encounter (statuses as of 02/04/2022) [facility] Narrative* Problem Noted [...] of this encounter (statuses as of 02/04/2022) [facility] Narrative* Problem Noted Date Resolved Date Numbness and tingling of both lower extremities 04/20/2019 03/26/2021 Paresthesia 04/20/2019 03/26/2021 Controlled type 2 diabetes franklin yang without complication, without long-term current use of [...] of this encounter (statuses as of 02/05/2022) [facility] Narrative* Problem Noted Date Resolved Date Numbness and tingling of both lower extremities 04/20/2019 03/26/2021 Paresthesia 04/20/2019 03/26/2021 Controlled type 2 diabetes franklin yang without complication, without long-term current use of [...] of this encounter (statuses as of 02/07/2022) [facility] Narrative* Problem Noted [...] of this encounter (statuses as of 02/12/2022) [facility]ative* Problem Noted [...] of this encounter (statuses as of 02/28/2022) [facility]* Problem Noted [...] of this encounter (statuses as of 02/28/2022) [facility]* Problem Noted [...] of this encounter (statuses as of 03/06/2022) [facility]* Problem Noted [...] of this encounter (statuses as of 03/12/2022) [facility]ative* Problem Noted [...] of this encounter (statuses as of 03/13/2022) [facility]* Problem Noted [...] of this encounter (statuses as of 03/14/2022) [facility]* Problem Noted [...] of this encounter (statuses as of 03/15/2022) [facility]* Problem Noted [...] of this encounter (statuses as of 03/19/2022) [facility]* Problem Noted [...] of this encounter (statuses as of 05/03/2022) [facility]* Problem Noted [...] of this encounter (statuses as of 05/03/2022) [facility]* Problem Noted [...] of this encounter (statuses as of 05/05/2022) [facility]* Problem Noted [...] of this encounter (statuses as of 05/25/2022) [facility]* Problem Noted [...] of this encounter (statuses as of 06/12/2022) [facility]* Problem Noted [...] of this encounter (statuses as of 07/05/2022) [facility]* Problem Noted [...] of this encounter (statuses as of 08/09/2022) [facility]* Problem Noted [...] of this encounter (statuses as of 08/09/2022) [facility]* Problem Noted [...] of this encounter (statuses as of 09/11/2022) [facility]* Problem Noted [...] of this encounter (statuses as of 10/25/2022) [facility]* Problem Noted [...] of this encounter (statuses as of 11/22/2022) [facility]* Problem Noted [...] of this encounter (statuses as of 12/26/2022) [facility]* Problem Noted [...] of this encounter (statuses as of 01/03/2023) [facility] Problem Noted [...] of this encounter (statuses as of 01/23/2023) [facility] Problem Noted [...] of this encounter (statuses as of 01/24/2023) [facility] Problem Noted [...] of this encounter (statuses as of 01/24/2023) [facility] Problem Noted [...] of this encounter (statuses as of 01/25/2023) [facility] Problem Noted [...] of this encounter (statuses as of 01/27/2023) [facility] Problem Noted [...] of this encounter (statuses as of 02/18/2023) [facility] Problem Noted [...] of this encounter (statuses as of 02/21/2023) [facility] Problem Noted [...] of this encounter (statuses as of 02/21/2023) [facility] Problem Noted [...] of this encounter (statuses as of 03/21/2023) [facility] Problem Noted [...] of this encounter (statuses as of 04/19/2023) [facility] Problem Noted [...] of this encounter (statuses as of 04/29/2023) [facility] Problem Noted [...] of this encounter (statuses as of 05/02/2023) [facility] Problem Noted [...] of this encounter (statuses as of 05/19/2023) [facility] Problem Noted [...] of this encounter (statuses as of 05/19/2023) [facility] Problem Noted [...] of this encounter (statuses as of 05/20/2023) [facility] Problem Noted [...] of this encounter (statuses as of 05/27/2023) [facility] Problem Noted [...] of this encounter (statuses as of 06/25/2023) [facility]* Problem Noted Date Diagnosed Date Resolved Date Numbness and tingling of bot h lower extremities 04/20/2019 03/26/2021 Paresthesia 04/20/2019 03/26/2021 Controlled type 2 diabetes m celia without complication, without long-term current use of insulin 03/28/2017 11/28/2017 PAD (peripheral artery disease) 03/10/2017 03/30/2023 Overview: 02/06/2022 PVR ank/jackson/toe bilat: RIGHT SIDE JITENDRA: 1.19; TBI: 0.84, WNL at rest LEFT SIDE: JITNEDRA: 1.19; TBI: 0.96, WNL at rest Family [...] of this encounter (statuses as of 07/22/2023) [facility]* Problem Noted [...] of this encounter (statuses as of 07/28/2023) [facility]* Problem Noted [...] of this encounter (statuses as of 07/30/2023) [facility]* Problem Noted [...] of this encounter (statuses as of 08/08/2023) [facility]* Problem Noted Date Diagnosed Date Resolved Date Numbness and tingling of bot h lower extremities 04/20/2019 03/26/2021 Paresthesia 04/20/2019 03/26/2021 Controlled type 2 diabetes m ellitus without complication, without long-term current use of insulin 03/28/2017 11/28/2017 PAD (peripheral artery disease) 03/10/2017 03/30/2023 Overview: 02/06/2022 PVR ank/jackson/toe bilat: RIGHT SIDE JITENDRA: 1.19; TBI: 0.84, WNL at rest LEFT SIDE: JITEDNRA: 1.19; TBI: 0.96, WNL at rest Family [...] of this encounter (statuses as of 09/10/2023) [facility]* Problem Noted [...] positional vertigo) 11/17/2015 12/05/2017 Postconcussion syndrome 10/30/2015 0305/2022 Memory loss 10/30/2015 01/24/2022 Pill dysphagia 05/17/2015 [...] of this encounter (statuses as of 09/11/2023) [facility]* Problem Noted [...] of this encounter (statuses as of 09/12/2023) [facility] Problem Noted [...] of this encounter (statuses as of 09/12/2023) [facility] Problem Noted [...] of this encounter (statuses as of 09/12/2023) [facility] Problem Noted [...] of this encounter (statuses as of 09/12/2023) [facility] Problem Noted [...] of this encounter (statuses as of 09/29/2023) [facility] Problem Noted [...] of this encounter (statuses as of 09/30/2023) [facility] Problem Noted [...] of this encounter (statuses as of 10/15/2023) [facility] Problem Noted [...] of this encounter (statuses as of 10/15/2023) [facility] Problem Noted [...] of this encounter (statuses as of 10/16/2023) [facility] Problem Noted [...] of this encounter (statuses as of 10/17/2023) [facility] Problem Noted [...] of this encounter (statuses as of 12/12/2023) [facility] Problem Noted [...] of this encounter (statuses as of 12/12/2023) [facility]* Problem Noted [...] of this encounter (statuses as of 12/16/2023) [facility] Problem Noted [...] of this encounter (statuses as of 12/18/2023) [facility] Problem Noted [...] of this encounter (statuses as of 12/18/2023) [facility] Problem Noted [...] as of this encounter (statuses as of 01/31/2024) [facility] Problem Noted [...] as of this encounter (statuses as of 02/13/2024) [facility] Problem Noted [...] as of this encounter (statuses as of 02/24/2024) [facility] No data available for this section [facility] Evaluation note* Diagnosis Hyperkalemia- Primary Hyperpotassemia Essential hypertension Unspecified essential hypertension [facility] Diagnosis Vitamin D deficiency Unspecified vitamin D deficiency documented in this encounter [facility] note* Diagnosis Renal cyst Unspecified congenital cystic kidney disease documented in this encounter [facility] note* Diagnosis Type 2 diabetes mellitus without retinopathy (HCC)- Primary Type II or unspecified type diabetes mellitus without mention of complication, not stated as uncontrolled Type 2 diabetes mellitus with peripheral neuropathy (HCC) Combined form of age-related cataract, 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 Crystalline deposits in vitreous Hypertensive retinopathy, bilateral Lesion of right lower eyelid documented in this encounter [facility] note* Diagnosis Asthma, unspecified asthma severity, unspecified whether complicated, unspecified whether persistent documented in this encounter [facility] note* Diagnosis Asthma, unspecified asthma severity, unspecified whether complicated, unspecified whether persistent documented in this encounter [facility] note* Diagnosis Mild persistent asthma without complication- Primary Unspecified asthma Lung nodules Other nonspecific abnormal finding of lung field Cigarette smoker Tobacco use disorder Gastroesophageal reflux disease, unspecified whether esophagitis present documented in this encounter [facility] note* Diagnosis Essential hypertension Unspecified essential hypertension documented in this encounter [facility] note* Diagnosis Type 2 diabetes mellitus with diabetic neuropathy, without long-term current use of insulin (HCC)- Primary Mixed hyperlipidemia Pulmonary HTN (HCC) Other chronic pulmonary heart diseases Hyperkalemia Hyperpotassemia Screening breast examination Breast screening, unspecified documented in this encounter [facility] note* Diagnosis Screening breast examination- Primary Breast screening, unspecified documented in this encounter [facility] note* Diagnosis Screening breast examination Breast screening, unspecified documented in this encounter [facility] note* Diagnosis Gastroesophageal reflux disease without esophagitis Esophageal reflux documented in this encounter [facility] noteNo assessment information availableWProMedica [facility] Work Phone: Evaluation note* Diagnosis Recurrent major depression in partial remission (HCC) Major depressive disorder, recurrent episode, in partial or unspecified remission Controlled type 2 diabetes mellitus without complication, without long-term current use of insulin (HCC) Chronic antral gastritis Atrophic gastritis without mention of hemorrhage Gastroesophageal reflux disease without esophagitis Esophageal reflux documented in this encounter [facility] note* Diagnosis Asthma with COPD (HCC) Chronic obstructive asthma, unspecified [facility] Acute pain of left shoulder- Primary Recurrent major depression in partial remission (HCC) Major depressive disorder, recurrent episode, in partial or unspecified remission [facility] this [facility]* Diagnosis Type 2 diabetes mellitus with [...] specified viral diseases [facility] this [facility]* Diagnosis Asthma with COPD (HCC) Chronic obstructive asthma, unspecified [facility]* Diagnosis Acute pain of right shoulder- Primary [facility] this [facility]* Diagnosis Chronic obstructive pulmonary disease, unspecified [...] Chest pain, unspecified type SVT (supraventricular tachycardia) ([facility]) Other specified cardiac dysrhythmias Palpitations Medicare annual wellness visit, initial Routine general medical examination at a health care facility documented [facility] this encounter [facility]* Diagnosis Chronic antral gastritis Atrophic gastritis without mention of hemorrhage Gastroesophageal reflux disease without esophagitis Esophageal reflux [facility] Diagnosis Controlled type 2 diabetes mellitus without complication, without long-term current use of insulin (HCC) [facility] Essential hypertension- Primary Unspecified essential hypertension SVT (supraventricular tachycardia) (HCC) Other specified cardiac dysrhythmias PAD (peripheral artery disease) (HCC) Peripheral vascular disease, unspecified Chronic obstructive pulmonary disease, unspecified COPD type (HCC) Pulmonary HTN (HCC) Other chronic pulmonary heart diseases Asthma with COPD (HCC) Chronic obstructive asthma, unspecified Tobacco abuse Tobacco [...] lumbosacral intervertebral disc [facility]* Diagnosis Epigastric pain- Primary Abdominal pain, epigastric Major depressive disorder, recurrent 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) Major depressive disorder, recurrent episode, severe, without mention of psychotic behavior Type 2 diabetes mellitus with diabetic neuropathy, without long-term current use of insulin (HCC) Chronic obstructive pulmonary disease, unspecified COPD type (HCC) Nausea Nausea alone Diarrhea, unspecified type [facility] Vitamin D deficiency Unspecified vitamin D deficiency [facility] Elevated blood protein- Primary Other disorders of plasma protein metabolism Elevated lipase Other nonspecific abnormal serum enzyme levels Elevated lymphocytes Lymphocytosis (symptomatic) [facility]* Diagnosis Hypercalcemia- Primary Elevated lipase Other nonspecific abnormal serum enzyme levels [facility] Diagnosis Laceration of right middle finger without foreign body without damage to nail, subsequent encounter- Primary [facility] Diagnosis Elevated lipase- Primary Other nonspecific abnormal serum enzyme levels [facility] Diagnosis Chronic antral gastritis Atrophic gastritis without mention of hemorrhage Gastroesophageal reflux disease without esophagitis Esophageal reflux [facility]* Diagnosis Shoulder impingement- Primary Other affections of shoulder region, not elsewhere classified Calcific tendonitis of right shoulder Sternoclavicular joint pain, right [facility]* Diagnosis Essential hypertension- Primary Unspecified essential hypertension [facility] this encounter [facility]* Diagnosis Controlled type 2 diabetes mellitus without complication, without long-term current use of insulin (HCC) documented [facility] this encounter [facility]* Diagnosis Essential hypertension Unspecified essential hypertension [facility] this [facility]* Diagnosis Screening for ischemic heart disease- Primary documented in this encounter [facility]* Diagnosis Asthma with COPD Chronic obstructive asthma, unspecified [facility] this [facility]* Diagnosis Syncope and collapse- Primary Neck pain Cervicalgia Rib pain Chest pain, unspecified [facility] this [facility]* Diagnosis Encounter for screening for cardiovascular disorders Screening for other and unspecified cardiovascular conditions Chest pain, unspecified type [facility] this [facility]* Diagnosis Elevated lipase Other nonspecific abnormal serum enzyme levels [facility] this [facility]* Diagnosis Screening breast examination Breast screening, unspecified documented [facility] this encounter [facility]* Diagnosis Syncope and collapse- Primary Essential [...] of insulin (HCC) documented in this encounter [facility]* Diagnosis Mixed hyperlipidemia- Primary Hypertriglyceridemia Pure hyperglyceridemia documented [facility] this encounter [facility]* Diagnosis Encounter for screening for lung cancer- Primary Tobacco use current documented [facility] this [facility] center note* Diagnosis Syncope and collapse Abnormal CT of brain Nonspecific (abnormal) findings on radiological and other examination of skull and head [facility] Diagnosis Controlled type 2 diabetes mellitus without complication, without long-term current use of insulin (HCC) [facility] Diagnosis Multinodular goiter (nontoxic)- Primary Nontoxic multinodular goiter [facility] Diagnosis Multinodular goiter (nontoxic)- Primary Nontoxic multinodular goiter [facility] Diagnosis Multinodular goiter (nontoxic)- Primary Nontoxic multinodular goiter [facility] Diagnosis Monoclonal gammopathy- Primary Monoclonal paraproteinemia Iron deficiency anemia secondary to inadequate dietary iron intake [facility] Diagnosis Monoclonal gammopathy- Primary Monoclonal paraproteinemia [facility] Diagnosis Monoclonal gammopathy Monoclonal paraproteinemia [facility] Diagnosis Monoclonal gammopathy- Primary Monoclonal paraproteinemia [facility] Diagnosis Encounter for screening mammogram for breast cancer [facility] Diagnosis Encounter for screening mammogram for breast cancer [facility] Diagnosis Chronic antral gastritis- Primary Atrophic gastritis without mention of hemorrhage Nausea and vomiting, unspecified vomiting type [facility] Diagnosis Neck pain Cervicalgia Syncope, unspecified syncope type Rib pain Chest pain, unspecified [facility] Diagnosis Monoclonal gammopathy Monoclonal paraproteinemia [facility] Diagnosis Monoclonal gammopathy Monoclonal paraproteinemia [facility] Diagnosis Monoclonal gammopathy- Primary Monoclonal paraproteinemia [facility] Diagnosis Chronic right shoulder pain Pain in joint, shoulder region [facility] Diagnosis Monoclonal gammopathy Monoclonal paraproteinemia [facility] Diagnosis Acute pain of left shoulder Acute pain of right shoulder [facility] Diagnosis Rib pain Chest pain, unspecified [facility] Diagnosis Essential hypertension Unspecified essential hypertension Chronic antral gastritis Atrophic gastritis without mention of hemorrhage Gastroesophageal reflux disease without esophagitis Esophageal reflux [facility] Diagnosis Monoclonal gammopathy- Primary Monoclonal paraproteinemia [facility] Diagnosis Sore throat- Primary Acute pharyngitis Gastroesophageal reflux disease, unspecified whether esophagitis present [facility] Diagnosis Monoclonal gammopathy- Primary Monoclonal paraproteinemia [facility] No data available for this section [facility] Discharge instructionsAmbulatory Orders* Cardiology Location: [facility] Work Phone: Progress note No data available for this section [facility] Reason for referral (narrative)* Diagnostic Procedure Only (Routine) - Closed Specialty Diagnoses / Procedures Referred By Marcelo benedict Referred To Contact US IMAGING Diagnoses Renal cyst Procedures US KIDNEY/BLADDER US RETROPERITONEAL REAL TIME W/IMAGE COMPLETE Clarice Petersen MD [address] [place] [address] Us Imaging Referral ID Status Reason Start Date Expiration Date V isits Requested Visits Authorized [id number] Closed Auto-Generate d Referral 01/24/2022 02/23/2023 1 1 [facility] for referral (narrative)* Diagnostic Procedure Only (Routine) - Authorized Specialty Diagnoses / Procedures Referred By Marcelo benedict Referred To Contact BR IMAGING Diagnoses Screening breast examination Procedures CARLOS EDUARDO SCREENING SCREENING MAMMOGRAPHY BI 2-VIEW BREAST INC CAD Clarice Petersen MD [address] [place] [address] Br Imaging [address] [place] [address] Referral ID Status Reason Start Date Expiration Date Visits Requested Visits Authorized [id number] Authorized Auto-Generat ed Referral 03/12/2022 04/11/2023 1 1 [facility] for referral (narrative)* Diagnostic Procedure Only (Routine) - Pending Review Specialty Diagnoses / Procedures Referred By Marcelo benedict Referred To Contact BR IMAGING Diagnoses Screening breast examination Procedures CARLOS EDUARDO SCREENING SCREENING MAMMOGRAPHY BI 2-VIEW BREAST INC Clraice Sarabia MD [address] [place] [address] Br Imaging [address] [place] [address] Referral ID Status Reason Start Date Expiration Date Visits Requested Visits Authorized [id number] Pending Review Auto-Generat ed Referral 03/13/2022 04/12/2023 1 1 [facility] for referral (narrative)* Diagnostic Procedure Only (Routine) - Authorized Specialty Diagnoses / Procedures Referred By Contac t Referred To Contact BR IMAGING Diagnoses Screening breast examination Procedures CARLOS EDUARDO SCREENING SCREENING MAMMOGRAPHY BI 2-VIEW BREAST INC Clarice Sarabia MD [facility] [place] [address] Br Imaging [address] [place] [address] Referral ID Status Reason Start Date Expiration Date Visits Requested Visits Authorized [id number] Authorized Auto-Generat ed Referral 03/12/2022 04/11/2023 1 1 T [facility] for referral (narrative)* Diagnostic Procedure Only (Routine) - Pending Review Specialty Diagnoses / Procedures Referred By Contac t Referred To Contact XR IMAGING Diagnoses Acute pain of left shoulder Procedures XR SHOULDER GENERAL 3V OR MORE AP/TRUE AP/OTHER LEFT RADEX SHOULDER COMPLETE MINIMUM 2 VIEWS Clarice Petersen MD [address] [place] [address] Xr Imaging Referral ID Status Reason Start Date Expiration Date Visits Requested Visits Authorized [id number] Pending Review Auto-Generat ed Referral 05/24/2022 06/23/2023 1 1 T [facility] for referral (narrative)* Diagnostic Procedure Only (Routine) - Closed Specialty Diagnoses / Procedures Referred By Contac t Referred To Contact XR IMAGING Diagnoses Acute pain of right shoulder Procedures XR SHOULDER GENERAL 3V OR MORE AP/TRUE AP/OTHER RIGHT RADEX SHOULDER COMPLETE MINIMUM 2 VIEWS Clarice Petersen MD [address] [place] [address] Xr Imaging Referral ID Status Reason Start Date Expiration Date V isits Requested Visits Authorized [id number] Closed Auto-Generate d Referral 06/03/2022 07/03/2023 1 1 [facility] for referral (narrative)* Diagnostic Procedure Only (Routine) - Pending Review Specialty Diagnoses / Procedures Referred By Contac t Referred To Contact MOLECULAR & FUNCTIONAL IMAGING Diagnoses Encounter for screening for cardiovascular disorders Chest pain, unspecified type Procedures NM CARDIAC PERF STRESS/PHARM MYOCARDIAL SPECT MULTIPLE STUDIES Franklin Mirza PA-C [address] [place] [address] Molecular [facility] [address] [place] [address] Referral ID Status Reason Start Date Expiration Date Visits Requested Visits Authorized [id number] Pending Review Auto-Generat ed Referral 08/08/2022 09/07/2023 1 1 [facility] for referral (narrative)* Diagnostic Procedure Only (Routine) - Authorized Specialty Diagnoses / Procedures Referred By Contac t Referred To Contact US IMAGING Diagnoses Elevated lipase Procedures US ABD RIGHT UPPER QUADRANT US ABDOMINAL REAL TIME W/[place] [address] [place] [address] Us Imaging Referral ID Status Reason Start Date Expiration Date Visits Requested Visits Authorized [id number] Authorized Auto-Generat ed Referral 02/20/2023 03/21/2024 1 1 T [facility] for referral (narrative)* Outpatient Procedure (Routine) - Authorized Specialty Diagnoses / Procedures Referred By Contac t Referred To Contact [facility] Diagnoses Syncope and collapse Procedures ECG COMPLETE ECG ROUTINE ECG W/LEAST 12 LDS W/I&R Podlogar, Sahra, INFECTIOUS DISEASE TECHNICIAN.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 [address] [place] [address] [facility] [address] [place] [address] Referral ID Status Reason Start Date Expiration Date Visits Requested Visits Authorized [id number] Authorized Auto-Generat ed Referral 09/10/2023 09/09/2024 1 1 * MRI/CT (Urgent) - Authorized Specialty Diagnoses / Procedures Referred By Contac t Referred To Contact CT IMAGING Diagnoses Syncope and collapse Procedures CT BRAIN WO IVCON CT HEAD/BRAIN W/O CONTRAST MATERIAL PodSahra frost APRN.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 [address] [place] [address] [place] [address] Referral ID Status Reason Start Date Expiration Date Visits Requested Visits Authorized [id number] Authorized Auto-Generat ed Referral 09/10/2023 10/09/2024 1 1 * Diagnostic Procedure Only (Routine) - Closed Specialty Diagnoses / Procedures Referred By Contac t Referred To Contact XR IMAGING Diagnoses Syncope, unspecified syncope type Rib pain Procedures XR RIBS/CHEST 3V AP RIB/OBLS/CXR RIGHT RADEX RIBS UNI W/POSTEROANT CH MINIMUM 3 VIEWS PodSahra frost APRN.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 [address] [place] [address] [place] [address] Referral ID Status Reason Start Date Expiration Date V isits Requested Visits Authorized [id number] Closed Auto-Generate d Referral 09/10/2023 10/09/2024 1 1 * Diagnostic Procedure Only (Urgent) - Closed Specialty Diagnoses / Procedures Referred By Contac t Referred To Contact XR IMAGING Diagnoses Neck pain Syncope, unspecified syncope type Procedures XR CERV OTHER 4V AP/LAT/OBL RADEX SPINE CERVICAL 4 OR 5 VIEWS Sahra Moreno APRN.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 [address] [place] [address] [place] [address] Referral ID Status Reason Start Date Expiration Date V isits Requested Visits Authorized [id number] Closed Auto-Generate d Referral 09/10/2023 10/09/2024 1 1 [facility] for referral (narrative)* Diagnostic Procedure Only (Routine) - Closed Specialty Diagnoses / Procedures Referred By Contac t Referred To Contact MOLECULAR & FUNCTIONAL IMAGING Diagnoses Encounter for screening for cardiovascular disorders Chest pain, unspecified type Procedures NM CARDIAC PERF STRESS/PHARM MYOCARDIAL SPECT MULTIPLE STUDIES Franklin Mirza PA-C [address] [place] [address] Molecular & Functional Imaging [address] [place] [address] Referral ID Status Reason Start Date Expiration Date V isits Requested Visits Authorized [id number] Closed Auto-Generate d Referral 04/01/2023 04/30/2024 1 1 [facility] for referral (narrative)* Diagnostic Procedure Only (Routine) - Closed Specialty Diagnoses / Procedures Referred By Contac t Referred To Contact US IMAGING Diagnoses Elevated lipase Procedures US ABD RIGHT UPPER QUADRANT US ABDOMINAL REAL TIME W/IMAGE LIMITED Clarice Petersen MD [address] [place] [address] [place] [address] Referral ID Status Reason Start Date Expiration Date V isits Requested Visits Authorized [id number] Closed Auto-Generate d Referral 02/20/2023 03/21/2024 1 1 T [facility] for referral (narrative)* Diagnostic Procedure Only (Routine) - Closed Specialty Diagnoses / Procedures Referred By Contac t Referred To Contact BR IMAGING Diagnoses Screening breast examination Procedures CARLOS EDUARDO SCREENING SCREENING MAMMOGRAPHY BI 2-VIEW BREAST INC CAD Clarice Petersen MD [address] [place] [address] Br Imaging [address] [place] [address] Referral ID Status Reason Start Date Expiration Date V isits Requested Visits Authorized [id number] Closed Auto-Generate d Referral 03/13/2022 04/12/2023 1 1 [facility] for referral (narrative)* Diagnostic Procedure Only (Routine) - Closed Specialty Diagnoses / Procedures Referred By Contac t Referred To Contact XR IMAGING Diagnoses Monoclonal gammopathy Procedures XR BONE SURVEY ROUTINE RADIOLOGIC EXAMINATION OSSEOUS SURVEY COMPL Cristhian Smith DO [address] [place] [address] [place] [address] Referral ID Status Reason Start Date Expiration Date V isits Requested Visits Authorized [id number] Closed Auto-Generate d Referral 06/24/2024 07/24/2025 1 1 [facility] for referral (narrative)* Diagnostic Procedure Only (Routine) - Closed Specialty Diagnoses / Procedures Referred By Contac t Referred To Contact BR IMAGING Diagnoses Encounter for screening mammogram for breast cancer Procedures CARLOS EDUARDO SCREENING W MIGUEL SCREENING DIGITAL BREAST TOMOSYNTHESIS BI SCREENING MAMMOGRAPHY BI 2-VIEW BREAST INC CAD Hemanth Carranza MD [address] [place] [address] Br Imaging [address] [place] [address] Referral ID Status Reason Start Date Expiration Date V isits Requested Visits Authorized [id number] Closed Auto-Generate d Referral 06/30/2024 07/30/2025 1 1 [facility] for referral (narrative)* Diagnostic Procedure Only (Routine) - Closed Specialty Diagnoses / Procedures Referred By Contac t Referred To Contact XR IMAGING Diagnoses Syncope, unspecified syncope type Rib pain Procedures XR RIBS/CHEST 3V AP RIB/OBLS/CXR RIGHT RADEX RIBS UNI W/POSTEROANT CH MINIMUM 3 VIEWS PodlogarSahra APRN.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 [address] [place] [address] [place] [address] Referral ID Status Reason Start Date Expiration Date V isits Requested Visits Authorized [id number] Closed Auto-Generate d Referral 09/10/2023 10/09/2024 1 1 * Diagnostic Procedure Only (Urgent) - Closed Specialty Diagnoses / Procedures Referred By Contac t Referred To Contact XR IMAGING Diagnoses Neck pain Syncope, unspecified syncope type Procedures XR CERV OTHER 4V AP/LAT/OBL RADEX SPINE CERVICAL 4 OR 5 VIEWS MarbellalogSahra cunningham APRN.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 [address] [place] [address] [place] [address] Referral ID Status Reason Start Date Expiration Date V isits Requested Visits Authorized [id number] Closed Auto-Generate d Referral 09/10/2023 10/09/2024 1 1 [facility] for referral (narrative)* Diagnostic Procedure Only (Routine) - Closed Specialty Diagnoses / Procedures Referred By Contac t Referred To Contact XR IMAGING Diagnoses Chronic right shoulder pain Procedures XR SHOULDER GENERAL 3V OR MORE AP/TRUE AP/OTHER RIGHT RADEX SHOULDER COMPLETE MINIMUM 2 VIEWS Franklin Mirza PA-C [address] [place] [address] [place] [address] Referral ID Status Reason Start Date Expiration Date V isits Requested Visits Authorized [id number] Closed Auto-Generate d Referral 03/27/2023 04/25/2024 1 1 [facility] for referral (narrative)* Diagnostic Procedure Only (Routine) - Closed Specialty Diagnoses / Procedures Referred By Contac t Referred To Contact XR IMAGING Diagnoses Acute pain of right shoulder Procedures XR SHOULDER GENERAL 3V OR MORE AP/TRUE AP/OTHER RIGHT RADEX SHOULDER COMPLETE MINIMUM 2 VIEWS Clarice Petersen MD [address] [place] [address] [place] [address] Referral ID Status Reason Start Date Expiration Date V isits Requested Visits Authorized [id number] Closed Auto-Generate d Referral 06/03/2022 07/03/2023 1 1 * Diagnostic Procedure Only (Routine) - Closed Specialty Diagnoses / Procedures Referred By Contac t Referred To Contact XR IMAGING Diagnoses Acute pain of left shoulder Procedures XR SHOULDER GENERAL 3V OR MORE AP/TRUE AP/OTHER LEFT RADEX SHOULDER COMPLETE MINIMUM 2 VIEWS Clarice Petersen MD [address] [place] [address] [place] [address] Referral ID Status Reason Start Date Expiration Date V isits Requested Visits Authorized [id number] Closed Auto-Generate d Referral 05/24/2022 06/23/2023 1 1 [facility]No reason for referral information [facility] Work Phone: Reason for visit Narrative* Outpatient Procedure (Routine) - Closed Specialty Diagnoses / Procedures Referred By Contac t Referred To Contact [facility] Diagnoses History of gastric polyp Dysphagia, unspecified type Procedures EGD DIAGNOSTIC ESOPHAGOGASTRODUODENOSC OPY TRANSORAL DIAGNOSTIC Cira Frazier APRN.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 [address] [place] [address] [facility] [address] [place] [address] Referral ID Status Reason Start Date Expiration Date V isits Requested Visits Authorized [id number] Closed Auto-Generate d Referral 01/28/2022 01/28/2023 1 1 [facility] for visit Narrative* Diagnostic Procedure Only (Routine) - Closed Specialty Diagnoses / Procedures Referred By Contac t Referred To Contact MOLECULAR [facility] FUNCTIONAL IMAGING Diagnoses Encounter for screening for cardiovascular disorders Chest pain, unspecified type Procedures NM CARDIAC PERF STRESS/PHARM MYOCARDIAL SPECT MULTIPLE STUDIES Franklin Mirza PA-C [address] [place] [address] Molecular & Functional Imaging [address] [place] [address] Referral ID Status Reason Start Date Expiration Date V isits Requested Visits Authorized [id number] Closed Auto-Generate d Referral 04/01/2023 04/30/2024 1 1 [facility] for visit Narrative* Diagnostic Procedure Only (Routine) - Closed Specialty Diagnoses / Procedures Referred By Contac t Referred To Contact BR IMAGING Diagnoses Screening breast examination Procedures CARLOS EDUARDO SCREENING SCREENING MAMMOGRAPHY BI 2-VIEW BREAST INC CAD Clarice Petersen MD [address] [place] [address] Br Imaging [address] [place] [address] Referral ID Status Reason Start Date Expiration Date V isits Requested Visits Authorized [id number] Closed Auto-Generate d Referral 03/13/2022 04/12/2023 1 1 [facility] for visit Narrative* Diagnostic Procedure Only (Routine) - Closed Specialty Diagnoses / Procedures Referred By Contac t Referred To Contact XR IMAGING Diagnoses Monoclonal gammopathy Procedures XR BONE SURVEY ROUTINE RADIOLOGIC EXAMINATION OSSEOUS SURVEY COMPL Cristhian Smith, DO [address] [place] [address] Xr Imaging [facility] Referral ID Status Reason Start Date Expiration Date V isits Requested Visits Authorized [id number] Closed Auto-Generate d Referral 06/24/2024 07/24/2025 1 1 [facility] for visit Narrative* Diagnostic Procedure Only (Routine) - Closed Specialty Diagnoses / Procedures Referred By Contac t Referred To Contact BR IMAGING Diagnoses Encounter for screening mammogram for breast cancer Procedures CARLOS EDUARDO SCREENING W MIGUEL SCREENING DIGITAL BREAST TOMOSYNTHESIS BI SCREENING MAMMOGRAPHY BI 2-VIEW BREAST INC Hemanth Love MD [address] [place] [address] Br Imaging [address] [place] [address] Referral ID Status Reason Start Date Expiration Date V isits Requested Visits Authorized [id number] Closed Auto-Generate d Referral 06/30/2024 07/30/2025 1 1 [facility] for visit Narrative* Diagnostic Procedure Only (Routine) - Closed Specialty Diagnoses / Procedures Referred By Contac t Referred To Contact XR IMAGING Diagnoses Syncope, unspecified syncope type Rib pain Procedures XR RIBS/CHEST 3V AP RIB/OBLS/CXR RIGHT RADEX RIBS UNI W/POSTEROANT CH MINIMUM 3 VIEWS PodlogarSahra APRN.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 [address] [place] [address] [place] [address] Referral ID Status Reason Start Date Expiration Date V isits Requested Visits Authorized [id number] Closed Auto-Generate d Referral 09/10/2023 10/09/2024 1 1 [facility] for visit Narrative* Diagnostic Procedure Only (Routine) - Closed Specialty Diagnoses / Procedures Referred By Contac t Referred To Contact XR IMAGING Diagnoses Chronic right shoulder pain Procedures XR SHOULDER GENERAL 3V OR MORE AP/TRUE AP/OTHER RIGHT RADEX SHOULDER COMPLETE MINIMUM 2 VIEWS Franklin Mirza PA-C [address] [place] [address] [place] [address] Referral ID Status Reason Start Date Expiration Date V isits Requested Visits Authorized [id number] Closed Auto-Generate d Referral 03/27/2023 04/25/2024 1 1 [facility] for visit Narrative* Diagnostic Procedure Only (Routine) - Closed Specialty Diagnoses / Procedures Referred By Contac t Referred To Contact XR IMAGING Diagnoses Acute pain of right shoulder Procedures XR SHOULDER GENERAL 3V OR MORE AP/TRUE AP/OTHER RIGHT RADEX SHOULDER COMPLETE MINIMUM 2 VIEWS Clarice Petersen MD [address] [place] [address] [place] [address] Referral ID Status Reason Start Date Expiration Date V isits Requested Visits Authorized [id number] Closed Auto-Generate d Referral 06/03/2022 07/03/2023 1 1 [facility] for visit Narrative* Diagnostic Procedure Only (Urgent) - Closed Specialty Diagnoses / Procedures Referred By Contac t Referred To Contact XR IMAGING Diagnoses Arm injuries, left, initial encounter Procedures XR HUMERUS 2V AP/LAT LT X-RAY HUMERUS Soheila Stanleynathan, INFECTIOUS DISEASE TECHNICIAN.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 [address] [place] [address] [place] [address] Referral ID Status Reason Start Date Expiration Date V isits Requested Visits Authorized [id number] Closed Auto-Generate d Referral 09/19/2021 10/19/2022 1 1 [facility] Summary Purpose Family History No Family History Records Found Relationship Condition Age at Onset Recorded Date/T juan Unknown Family History?Cancer Unknown April 012017 6:48pm Family History?Cancer Unknown May 152017 6:42pm Family History?Heart Disease Unknown May 15, 2018 6:42pm Relationship Condition Age at Onset Recorded Date/T juan Unknown Family History?Cancer Unknown April 012017 5:48pm Family History?Cancer Unknown May 152017 5:42pm Family History?Heart Disease Unknown May 15, 2018 5:42pm Relationship Condition Age at Onset Recorded Date/T juan sister Polyp of colon Unknown Hypertension Unknown brother Polyp of colon Unknown Parkinson's disease Unknown mother Polyp of colon Unknown Malignant neoplasm of colon Unknown Chronic obstructive pulmonary disease Unk nown father Polyp of colon Unknown Cardiac disease Unknown Relationship Condition Age at Onset Recorded Date/T juan sister Polyp of colon Unknown Hypertension Unknown Asthma Unknown Depression Unknown Malignant melanoma Unknown Disorder of thyroid Unknown brother Polyp of colon Unknown Parkinson's disease Unknown Myocardial infarction Unknown Cardiac disease Unknown mother Polyp of colon Unknown Malignant neoplasm of colon Unknown Chronic obstructive pulmonary disease Unk nown Arthritis Unknown father Polyp of colon Unknown grandmother Alcoholism Unknown grandfather Diabetes mellitus Unknown Advance Directives No Advanced Directives Records FoundDocuments on File Type Date Recorded 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 Advance Directive(s) 08/27/2018 3:33 PM Advance Directive(s) 12/24/2017 7:15 AM Advance Directive(s) 03/18/2017 9:19 AM Documents on File Type Date Recorded 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 Advance Directive(s) 08/27/2018 3:33 PM Advance Directive(s) 12/24/2017 7:15 AM Advance Directive(s) 03/18/2017 9:19 AM Documents on File Type Date Recorded 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 Advance Directive(s) 03/14/2022 6:35 AM Advance Directive(s) 08/27/2018 3:33 PM Advance Directive(s) 12/24/2017 7:15 AM Advance Directive(s) 03/18/2017 9:19 AM Advance Directive Response Recorded Date/ Time Living Will No September 18 1:27pm Power of Banquet Lead No September 18, 2020 1:27pm Documents on File Type Date Recorded 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 No February 05, 2023 6:22pm Do you have a Healthcare Power of Banquet Lead? No March 07, 2025 11:06am Advance Directive Response Recorded Date/ Time Do you have a Healthcare Power of Banquet Lead? No March 07, 2025 11:06am Medications Administered Section Active Administered Medications - up to 3 most recent administrations Medication Order MAR Action Action Date Dose Rate Site fluorescein-benoxinate 0.25-0.4 % 1 Drop (FLURESS) 1 Drop, BOTH EYES, DIRECTED, Starting on Fri02/12/22 at 1430, Until Fri02/13/22 at 022, Administer for applanation tonometry. In the event of a Fluress shortage, administer Moville-Fluor 1 drop into both eyes as directed [...] infusion 5-30 mL/hr, INTRAVENOUS, CONTINUOUS, Starting on Fri03/14/22 at 0700, Until Fri03/14/22 at 0833, Preprocedure New Bag/Syringe/Bottle 03/14/2022 7:00 [...] To Contact Barbie Ruiz MD [address] [place] [address] Referral ID Status Reason Start Date Expiration Date Visits Re quested Visits Authorized [id number] Closed 1 1 Specialty Diagnoses / Procedures Referred By Marcelo benedict Referred To Contact [facility] Diagnoses Mild persistent asthma without complication Procedures NITRIC OXIDE, EXHALED NITRIC OXIDE GAS DETERMINATION Barbie Ruiz MD [address] [place] [address] [facility] [place] [facility] [place] [address] Referral ID Status Reason Start Date Expiration Date V isits Requested Visits Authorized [id number] Closed Auto-Generate d Referral 02/28/2022 03/30/2023 1 1 Specialty Diagnoses / Procedures Referred By Contac t Referred To Contact [facility] Diagnoses Mild persistent asthma without complication Procedures SPIROMETRY WITH DILATOR IF OBSTRUCTED BRNCDILAT RSPSE SPMTRY PRE&POST-BRNCDILAT Barbie Pierce MD [address] [place] [address] [facility] [place] [address] [place] [address] Referral ID Status Reason Start Date Expiration Date V isits Requested Visits Authorized [id number] Closed Auto-Generate d Referral 02/28/2022 03/30/2023 1 1 Specialty Diagnoses / Procedures Referred By Contac t Referred To Contact Clarice Petersen MD [address] [place] [address] Referral ID Status Reason Start Date Expiration Date Visits Re quested Visits Authorized [id number] Closed 1 1 Specialty Diagnoses / Procedures Referred By Contac t Referred To Contact Franklin Mirza PA-C [address] [place] [address] Referral ID Status Reason Start Date Expiration Date Visits Re quested Visits Authorized [id number] Closed 1 1 Specialty Diagnoses / Procedures Referred By Contac t Referred To Contact Diagnoses Encounter for screening for lung cancer Procedures CONSULT LUNG CANCER SCREENING CLINIC Franklin Mirza PA-C [address] [place] [address] Referral ID Status Reason Start Date Expiration Date Visits Requested Visits Authorized [id number] Ref Not Required PCP Requested Referral 3 12/28/2023 1 1 Specialty Diagnoses / Procedures Referred By Contac t Referred To Contact Gynecology Diagnoses Vaginal pain Procedures CONSULT TO GYNECOLOGY OFFICE/OUTPATIENT [facility] MDM 60-74 MINUTES Franklin Mirza PA-C [address] [place] [address] Referral ID Status Reason Start Date Expiration Date Visits Requested Visits Authorized [id number] Authorized PCP Requested Referral Auto-Generate d Referral 09/28/2024 1 1 Specialty Diagnoses / Procedures Referred By Contac t Referred To Contact CT IMAGING Diagnoses Encounter for screening for lung cancer Tobacco use current Procedures CT LUNG SCREEN WO IVCON COMPUTED TOMOGRAPHY THORAX LW DOSE LNG CA SCR Sherie Ortiz, INFECTIOUS DISEASE TECHNICIAN.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 [address] [place] [address] [facility] [place] [address] Referral ID Status Reason Start Date Expiration Date Visits Requested Visits Authorized [id number] Authorized Auto-Generat ed Referral 10/14/2023 11/09/2024 1 1 Specialty Diagnoses / Procedures Referred By Contac t Referred To Contact MR IMAGING Diagnoses Syncope and collapse Abnormal CT of brain Procedures MRI BRAIN WO/W IVCON MRI BRAIN BRAIN STEM W/O W/CONTRAST MATERIAL Sahra Moreno INFECTIOUS DISEASE TECHNICIAN.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 [address] [place] [id number] [facility] [place] [address] Referral ID Status Reason Start Date Expiration Date V isits Requested Visits Authorized [id number] Closed Auto-Generate d Referral 09/12/2023 10/11/2024 1 1 Referral ID Status Reason Start Date Expiration Date V isits Requested Visits Authorized [id number] Authorized 11/10/2023 11/09/2024 1 1 Referral ID Status Reason Start Date Expiration Date Visits Re quested Visits Authorized [id number] Closed 1 1 Specialty Diagnoses / Procedures Referred By Contac t Referred To Contact MR IMAGING Diagnoses Monoclonal gammopathy Procedures MRI PELVIS ORTHO GENERAL WO/W IVCON MRI ANY JT LOWER EXTREM W/O & W/CONTRAST MATRL Cristhian Smith, DO [address] [place] [address] [facility] [place] [address] Referral ID Status Reason Start Date Expiration Date Visits Requested Visits Authorized [id number] Authorized Auto-Generat ed Referral 06/28/2024 07/28/2025 1 1 Specialty Diagnoses / Procedures Referred By Contac t Referred To Contact MR IMAGING Diagnoses Monoclonal gammopathy Procedures MRI LUMBAR SPINE WO/W IVCON MRI SPINAL CANAL LUMBAR W/O & W/CONTR MATRCristhian Becker, DO [address] [place] [address] [place] [address] Referral ID Status Reason Start Date Expiration Date Visits Requested Visits Authorized [id number] Authorized Auto-Generat ed Referral 06/28/2024 07/28/2025 1 1 Specialty Diagnoses / Procedures Referred By Contac t Referred To Contact MR IMAGING Diagnoses Monoclonal gammopathy Procedures MRI THORACIC SPINE WO/W IVCON MRI SPINAL CANAL THORACIC W/O & W/CONTR MATRL Cristhian Smith, DO [address] [place] [address] [place] [address] Referral ID Status Reason Start Date Expiration Date Visits Requested Visits Authorized [id number] Authorized Auto-Generat ed Referral 06/28/2024 07/28/2025 1 1 Specialty Diagnoses / Procedures Referred By Contac t Referred To Contact MR IMAGING Diagnoses Monoclonal gammopathy Procedures MRI CERVICAL SPINE WO/W IVCON MRI SPINAL CANAL CERVICAL W/O & W/CONTR MATRL Cristhian Smith, DO [address] [place] [address] [place] [address] Referral ID Status Reason Start Date Expiration Date Visits Requested Visits Authorized [id number] Authorized Auto-Generat ed Referral 06/28/2024 07/28/2025 1 1 Referral ID Status Reason Start Date Expiration Date V isits Requested Visits Authorized [id number] Closed Auto-Generate d Referral 06/28/2024 07/28/2025 1 1 Referral ID Status Reason Start Date Expiration Date V isits Requested Visits Authorized [id number] Closed Auto-Generate d Referral 06/28/2024 07/28/2025 1 1 Referral ID Status Reason Start Date Expiration Date V isits Requested Visits Authorized [id number] Closed Auto-Generate d Referral 06/28/2024 07/28/2025 1 1 Referral ID Status Reason Start Date Expiration Date V isits Requested Visits Authorized [id number] Closed Auto-Generate d Referral 06/28/2024 07/28/2025 1 1 Chief Complaint and Reason for Visit Chief Complaint CIGARETTE SMOKER, PRIETO NG NODULES Chief Complaint chest pain LAC Chief Complaint THYROID NODULE THYROID NODULE Chief Complaint Admit Date PAIN IN THROAT September 30, 2024 3:10pm DYSPHAGIA October 18, 2024 8 :32am GERD, DYSPHAGIA December 28, 2024 11:17am E-ORDER December 28, 2024 12:34pm Reason for Visit Admit Date Diarrhea December 28, 2024 11:17am Chief Complaint Admit Date GERD, DYSPHAGIA December 28, 2024 11:17am E-ORDER December 28, 2024 12:34pm Asthma February 02, 2025 10: 38am EST NEW PT - GASTRO PT March 16, 2025 12: 35pm F17.210 - Nicotine dependence, cigarette s, uncompl March 17, 2025 4:15pm Reason for Visit Admit Date Diarrhea December 28, 2024 11:17am Pulmonary nodules February 02, 2025 10: 38am Smoking greater than 30 pack years February 02, 2025 10:38am Asthma February 02, 2025 10: 38am Dysphagia March 09, 2025 9:2 4am Nausea & vomiting March 09, 2025 9:2 4am Dysphagia March 16, 2025 12:35p m Pulmonary nodules March 16, 2025 12:35p m Smoking greater than 30 pack years March 162024 12:35pm Diabetes March 16, 2025 12:35p m Screening for depression March 16, 2025 1 2:35pm Immunization declined March 16, 2025 12:3 5pm Thyroid nodule March 16, 2025 12:35p m Establishing care with new doctoradrienne for March 16, 2025 12:35pm Vitamin deficiency March 16, 2025 12:35p m Rash and nonspecific skin eruption March 162024 12:35pm Post-menopausal March 16, 2025 12:35p m Mid back pain on right side March 16 12:35pm Pelvic pain in female March 16, 2025 12:3 5pm Screening for breast cancer March 16 12:35pm Cyst of left kidney March 16, 2025 12:35p m Monoclonal gammopathy March 16, 2025 12:3 5pm Asthma March 16, 2025 12:35p m Chief Complaint Admit Date GERD, DYSPHAGIA December 28, 2024 11:17am E-ORDER December 28, 2024 12:34pm Asthma February 02, 2025 10: 38am EST NEW PT - GASTRO PT March 16, 2025 12: 35pm F17.210 - Nicotine dependence, cigarette s, uncompl March 17, 2025 4:15pm LEFT RENAL CYST March 22, 2025 1:10p m F17.210 - Nicotine dependence, cigarette s, uncompl March 24, 2025 10:29am Chief Complaint Admit Date GERD, DYSPHAGIA December 28, 2024 11:17am E-ORDER December 28, 2024 12:34pm Asthma February 02, 2025 10: 38am EST NEW PT - GASTRO PT March 16, 2025 12: 35pm F17.210 - Nicotine dependence, cigarette s, uncompl March 17, 2025 4:15pm LEFT RENAL CYST March 22, 2025 1:10p m F17.210 - Nicotine dependence, cigarette s, uncompl March 24, 2025 10:29am F17.210 - Nicotine dependence, cigarette s, uncompl March 28, 2025 12:09pm Chief Complaint Admit Date GERD, DYSPHAGIA December 28, 2024 11:17am E-ORDER December 28, 2024 12:34pm Asthma February 02, 2025 10: 38am EST NEW PT - GASTRO PT March 16, 2025 12: 35pm F17.210 - Nicotine dependence, cigarette s, uncompl March 17, 2025 4:15pm LEFT RENAL CYST March 22, 2025 1:10p m F17.210 - Nicotine dependence, cigarette s, uncompl March 24, 2025 10:29am F17.210 - Nicotine dependence, cigarette s, uncompl March 28, 2025 12:09pm screening March 31, 2025 3:09p m F17.210 - Nicotine dependence, cigarette s, uncompl April 04, 2025 7:16am 10 wk fu April 06, 2025 10:11 am Reason for Visit Admit Date Diarrhea December 28, 2024 11:17am Pulmonary nodules February 02, 2025 10: 38am Smoking greater than 30 pack years February 02, 2025 10:38am Asthma February 02, 2025 10: 38am Dysphagia March 09, 2025 9:2 4am Nausea & vomiting March 09, 2025 9:2 4am Dysphagia March 16, 2025 12:35p m Pulmonary nodules March 16, 2025 12:35p m Smoking greater than 30 pack years March 162024 12:35pm Diabetes March 16, 2025 12:35p m Screening for depression March 16, 2025 1 2:35pm Immunization declined March 16, 2025 12:3 5pm Thyroid nodule March 16, 2025 12:35p m Establishing care with new doctor, adrienne montaño for March 16, 2025 12:35pm Vitamin deficiency March 16, 2025 12:35p m Rash and nonspecific skin eruption March 162024 12:35pm Post-menopausal March 16, 2025 12:35p m Mid back pain on right side March 16 12:35pm Pelvic pain in female March 16, 2025 12:3 5pm Screening for breast cancer March 16 12:35pm Cyst of left kidney March 16, 2025 12:35p m Monoclonal gammopathy March 16, 2025 12:3 5pm Asthma March 16, 2025 12:35p m Pulmonary nodules April 06, 2025 10:11 am Smoking greater than 30 pack years March [id number] 10:11am Asthma April 06, 2025 10:11 am Chief Complaint Admit Date GERD, DYSPHAGIA December 28, 2024 11:17am E-ORDER December 28, 2024 12:34pm Asthma February 02, 2025 10: 38am EST NEW PT - GASTRO PT March 16, 2025 12: 35pm F17.210 - Nicotine dependence, cigarette s, uncompl March 17, 2025 4:15pm LEFT RENAL CYST March 22, 2025 1:10p m F17.210 - Nicotine dependence, cigarette s, uncompl March 24, 2025 10:29am F17.210 - Nicotine dependence, cigarette s, uncompl March 28, 2025 12:09pm screening March 31, 2025 3:09p m F17.210 - Nicotine dependence, cigarette s, uncompl April 04, 2025 7:16am 10 wk fu April 06, 2025 10:11 am [facility] April 07, 2025 1:19p m Chief Complaint Admit Date Asthma February 02, 2025 10: 38am EST NEW PT - GASTRO PT March 16, 2025 12: 35pm F17.210 - Nicotine dependence, cigarette s, uncompl March 17, 2025 4:15pm LEFT RENAL CYST March 22, 2025 1:10p m F17.210 - Nicotine dependence, cigarette s, uncompl March 24, 2025 10:29am F17.210 - Nicotine dependence, cigarette s, uncompl March 24, 2025 10:39am F17.210 - Nicotine dependence, cigarette s, uncompl March 28, 2025 12:09pm screening March 31, 2025 3:09p m F17.210 - Nicotine dependence, cigarette s, uncompl April 04, 2025 7:16am 10 wk fu April 06, 2025 10:11 am Hospital April 07, 2025 1:19p m CP (JOSE ALEJANDRO) May 16, 2025 2:14p m Reason for Visit Admit Date Pulmonary nodules February 02, 2025 10: 38am Smoking greater than 30 pack years February 02, 2025 10:38am Asthma February 02, 2025 10: 38am Dysphagia March 09, 2025 9:2 4am Nausea & vomiting March 09, 2025 9:2 4am Dysphagia March 16, 2025 12:35p m Pulmonary nodules March 16, 2025 12:35p m Smoking greater than 30 pack years March 162024 12:35pm Diabetes March 16, 2025 12:35p m Screening for depression March 16, 2025 1 2:35pm Immunization declined March 16, 2025 12:3 5pm Thyroid nodule March 16, 2025 12:35p m Establishing care with new doctor, adrienne montaño for March 16, 2025 12:35pm Vitamin deficiency March 16, 2025 12:35p m Rash and nonspecific skin eruption March 162024 12:35pm Post-menopausal March 16, 2025 12:35p m Mid back pain on right side March 16 12:35pm Pelvic pain in female March 16, 2025 12:3 5pm Screening for breast cancer March 16 12:35pm Cyst of left kidney March 16, 2025 12:35p m Monoclonal gammopathy March 16, 2025 12:3 5pm Asthma March 16, 2025 12:35p m Pulmonary nodules April 06, 2025 10:11 am Smoking greater than 30 pack years March 112024 10:11am Asthma April 06, 2025 10:11 am Dysphagia April 07, 2025 1:19p m Nausea & vomiting April 07, 2025 1:19p m Esophageal reflux April 07, 2025 1:19p m Chest pain May 16, 2025 2:14p m Heart palpitations May 16, 2025 2:14p m Chief Complaint Admit Date EST NEW PT - GASTRO PT March 16, 2025 12: 35pm F17.210 - Nicotine dependence, cigarette s, uncompl March 17, 2025 4:15pm LEFT RENAL CYST March 22, 2025 1:10p m F17.210 - Nicotine dependence, cigarette s, uncompl March 24, 2025 10:29am F17.210 - Nicotine dependence, cigarette s, uncompl March 24, 2025 10:39am F17.210 - Nicotine dependence, cigarette s, uncompl March 28, 2025 12:09pm screening March 31, 2025 3:09p m F17.210 - Nicotine dependence, cigarette s, uncompl April 04, 2025 7:16am 10 wk fu April 06, 2025 10:11 am Hospital April 07, 2025 1:19p m CP (RUFENER) May 16, 2025 2:14p m 14 DAY EVENT RE-TONI May 21, 2025 2 :11pm PROLIA-$0 June 07, 2025 1:23 pm Reason for Visit Admit Date Dysphagia March 09, 2025 9:2 4am Nausea & vomiting March 09, 2025 9:2 4am Dysphagia March 16, 2025 12:35p m Pulmonary nodules March 16, 2025 12:35p m Smoking greater than 30 pack years March 162024 12:35pm Diabetes March 16, 2025 12:35p m Screening for depression March 16, 2025 1 2:35pm Immunization declined March 16, 2025 12:3 5pm Thyroid nodule March 16, 2025 12:35p m Establishing care with new doctoradrienne for March 16, 2025 12:35pm Vitamin deficiency March 16, 2025 12:35p m Rash and nonspecific skin eruption March 162024 12:35pm Post-menopausal March 16, 2025 12:35p m Mid back pain on right side March 16 12:35pm Pelvic pain in female March 16, 2025 12:3 5pm Screening for breast cancer March 16 12:35pm Cyst of left kidney March 16, 2025 12:35p m Monoclonal gammopathy March 16, 2025 12:3 5pm Asthma March 16, 2025 12:35p m Pulmonary nodules April 06, 2025 10:11 am Smoking greater than 30 pack years March 112024 10:11am Asthma April 06, 2025 10:11 am Dysphagia April 07, 2025 1:19p m Nausea & vomiting April 07, 2025 1:19p m Esophageal reflux April 07, 2025 1:19p m Chest pain May 16, 2025 2:14p m Heart palpitations May 16, 2025 2:14p m Osteoporosis June 07, 2025 1:23 pm Additional Source Comments INFORMATION SOURCE (unrecogn ized section and content) DATE CREATED AUTHOR 05/01/2018 [facility] DATE CREATED AUTHOR AUTHOR'S ORGANIZ ATION 09/13/2023 [facility] DATE CREATED AUTHOR AUTHOR'S ORGANIZ ATION 02/21/2024 [facility] ([place]) DATE CREATED AUTHOR AUTHOR'S ORGANIZ ATION 04/19/2025 [facility] DATE CREATED AUTHOR AUTHOR'S ORGANIZ ATION 06/09/2025 [facility] Source Comments (unrecognize d section and content) In the event this informatio n is protected by the Federal Confidentiality of Alcohol and Drug Abuse Patient Records regulations: The Federal rules restrict any use of the information to criminally investigate or prosecute any alcohol or drug abuse patient.[facility] the event this information is protected by the Federal Confidentiality of Alcohol and Drug Abuse Patient Records regulations: The Federal rules restrict any use of the information to criminally investigate or prosecute any alcohol or drug abuse patient.[facility] HospitalIn the event this information is protected by the Federal Confidentiality of Alcohol and Drug Abuse Patient Records regulations: The Federal rules restrict any use of the information to criminally investigate or prosecute any alcohol or drug abuse patient.[facility] HospitalIn the event this information is protected by the Federal Confidentiality of Alcohol and Drug Abuse Patient Records regulations: The Federal rules restrict any use of the information to criminally investigate or prosecute any alcohol or drug abuse patient.[facility]In the event this information is protected by the Federal Confidentiality of Alcohol and Drug Abuse Patient Records regulations: The Federal rules restrict any use of the information to criminally investigate or prosecute any alcohol or drug abuse patient.[facility] HospitalIn the event this information is protected by the Federal Confidentiality of Alcohol and Drug Abuse Patient Records regulations: The Federal rules restrict any use of the information to criminally investigate or prosecute any alcohol or drug abuse patient.[facility] Hospital[facility] the event this information is protected by the Federal Confidentiality of Alcohol and Drug Abuse Patient Records regulations: The Federal rules restrict any use of the information to criminally investigate or prosecute any alcohol or drug abuse patient.[facility] HospitalIn the event this information is protected by the Federal Confidentiality of Alcohol and Drug Abuse Patient Records regulations: The Federal rules restrict any use of the information to criminally investigate or prosecute any alcohol or drug abuse patient.[facility] HospitalIn the event this information is protected by the Federal Confidentiality of Alcohol and Drug Abuse Patient Records regulations: The Federal rules restrict any use of the information to criminally investigate or prosecute any alcohol or drug abuse patient.[facility] HospitalIn the event this information is protected by the Federal Confidentiality of Alcohol and Drug Abuse Patient Records regulations: The Federal rules restrict any use of the information to criminally investigate or prosecute any alcohol or drug abuse patient.[facility] HospitalIn the event this information is protected by the Federal Confidentiality of Alcohol and Drug Abuse Patient Records regulations: The Federal rules restrict any use of the information to criminally investigate or prosecute any alcohol or drug abuse patient.[facility] HospitalIn the event this information is protected by the Federal Confidentiality of Alcohol and Drug Abuse Patient Records regulations: The Federal rules restrict any use of the information to criminally investigate or prosecute any alcohol or drug abuse patient.[facility] HospitalIn the event this information is protected by the Federal Confidentiality of Alcohol and Drug Abuse Patient Records regulations: The Federal rules restrict any use of the information to criminally investigate or prosecute any alcohol or drug abuse patient.[facility] HospitalIn the event this information is protected by the Federal Confidentiality of Alcohol and Drug Abuse Patient Records regulations: The Federal rules restrict any use of the information to criminally investigate or prosecute any alcohol or drug abuse patient.[facility] HospitalIn the event this information is protected by the Federal Confidentiality of Alcohol and Drug Abuse Patient Records regulations: The Federal rules restrict any use of the information to criminally investigate or prosecute any alcohol or drug abuse patient.[facility] HospitalIn the event this information is protected by the Federal Confidentiality of Alcohol and Drug Abuse Patient Records regulations: The Federal rules restrict any use of the information to criminally investigate or prosecute any alcohol or drug abuse patient.[facility] HospitalIn the event this information is protected by the Federal Confidentiality of Alcohol and Drug Abuse Patient Records regulations: The Federal rules restrict any use of the information to criminally investigate or prosecute any alcohol or drug abuse patient.[facility] HospitalIn the event this information is protected by the Federal Confidentiality of Alcohol and Drug Abuse Patient Records regulations: The Federal rules restrict any use of the information to criminally investigate or prosecute any alcohol or drug abuse patient.[facility] HospitalIn the event this information is protected by the Federal Confidentiality of Alcohol and Drug Abuse Patient Records regulations: The Federal rules restrict any use of the information to criminally investigate or prosecute any alcohol or drug abuse patient.[facility] HospitalIn the event this information is protected by the Federal Confidentiality of Alcohol and Drug Abuse Patient Records regulations: The Federal rules restrict any use of the information to criminally investigate or prosecute any alcohol or drug abuse patient.[facility] HospitalIn the event this information is protected by the Federal Confidentiality of Alcohol and Drug Abuse Patient Records regulations: The Federal rules restrict any use of the information to criminally investigate or prosecute any alcohol or drug abuse patient.[facility] HospitalIn the event this information is protected by the Federal Confidentiality of Alcohol and Drug Abuse Patient Records regulations: The Federal rules restrict any use of the information to criminally investigate or prosecute any alcohol or drug abuse patient.[facility] HospitalIn the event this information is protected by the Federal Confidentiality of Alcohol and Drug Abuse Patient Records regulations: The Federal rules restrict any use of the information to criminally investigate or prosecute any alcohol or drug abuse patient.[facility] HospitalIn the event this information is protected by the Federal Confidentiality of Alcohol and Drug Abuse Patient Records regulations: The Federal rules restrict any use of the information to criminally investigate or prosecute any alcohol or drug abuse patient.[facility] HospitalIn the event this information is protected by the Federal Confidentiality of Alcohol and Drug Abuse Patient Records regulations: The Federal rules restrict any use of the information to criminally investigate or prosecute any alcohol or drug abuse patient.[facility] HospitalIn the event this information is protected by the Federal Confidentiality of Alcohol and Drug Abuse Patient Records regulations: The Federal rules restrict any use of the information to criminally investigate or prosecute any alcohol or drug abuse patient.[facility] HospitalIn the event this information is protected by the Federal Confidentiality of Alcohol and Drug Abuse Patient Records regulations: The Federal rules restrict any use of the information to criminally investigate or prosecute any alcohol or drug abuse patient.[facility] HospitalIn the event this information is protected by the Federal Confidentiality of Alcohol and Drug Abuse Patient Records regulations: The Federal rules restrict any use of the information to criminally investigate or prosecute any alcohol or drug abuse patient.[facility] HospitalIn the event this information is protected by the Federal Confidentiality of Alcohol and Drug Abuse Patient Records regulations: The Federal rules restrict any use of the information to criminally investigate or prosecute any alcohol or drug abuse patient.[facility] HospitalIn the event this information is protected by the Federal Confidentiality of Alcohol and Drug Abuse Patient Records regulations: The Federal rules restrict any use of the information to criminally investigate or prosecute any alcohol or drug abuse patient.[facility] HospitalIn the event this information is protected by the Federal Confidentiality of Alcohol and Drug Abuse Patient Records regulations: The Federal rules restrict any use of the information to criminally investigate or prosecute any alcohol or drug abuse patient.[facility] HospitalIn the event this information is protected by the Federal Confidentiality of Alcohol and Drug Abuse Patient Records regulations: The Federal rules restrict any use of the information to criminally investigate or prosecute any alcohol or drug abuse patient.[facility] HospitalIn the event this information is protected by the Federal Confidentiality of Alcohol and Drug Abuse Patient Records regulations: The Federal rules restrict any use of the information to criminally investigate or prosecute any alcohol or drug abuse patient.[facility] HospitalIn the event this information is protected by the Federal Confidentiality of Alcohol and Drug Abuse Patient Records regulations: The Federal rules restrict any use of the information to criminally investigate or prosecute any alcohol or drug abuse patient.[facility] HospitalIn the event this information is protected by the Federal Confidentiality of Alcohol and Drug Abuse Patient Records regulations: The Federal rules restrict any use of the information to criminally investigate or prosecute any alcohol or drug abuse patient.[facility] HospitalIn the event this information is protected by the Federal Confidentiality of Alcohol and Drug Abuse Patient Records regulations: The Federal rules restrict any use of the information to criminally investigate or prosecute any alcohol or drug abuse patient.[facility] HospitalIn the event this information is protected by the Federal Confidentiality of Alcohol and Drug Abuse Patient Records regulations: The Federal rules restrict any use of the information to criminally investigate or prosecute any alcohol or drug abuse patient.[facility] HospitalIn the event this information is protected by the Federal Confidentiality of Alcohol and Drug Abuse Patient Records regulations: The Federal rules restrict any use of the information to criminally investigate or prosecute any alcohol or drug abuse patient.[facility] HospitalIn the event this information is protected by the Federal Confidentiality of Alcohol and Drug Abuse Patient Records regulations: The Federal rules restrict any use of the information to criminally investigate or prosecute any alcohol or drug abuse patient.[facility] HospitalIn the event this information is protected by the Federal Confidentiality of Alcohol and Drug Abuse Patient Records regulations: The Federal rules restrict any use of the information to criminally investigate or prosecute any alcohol or drug abuse patient.[facility] HospitalIn the event this information is protected by the Federal Confidentiality of Alcohol and Drug Abuse Patient Records regulations: The Federal rules restrict any use of the information to criminally investigate or prosecute any alcohol or drug abuse patient.[facility] HospitalIn the event this information is protected by the Federal Confidentiality of Alcohol and Drug Abuse Patient Records regulations: The Federal rules restrict any use of the information to criminally investigate or prosecute any alcohol or drug abuse patient.[facility] HospitalIn the event this information is protected by the Federal Confidentiality of Alcohol and Drug Abuse Patient Records regulations: The Federal rules restrict any use of the information to criminally investigate or prosecute any alcohol or drug abuse patient.[facility] HospitalIn the event this information is protected by the Federal Confidentiality of Alcohol and Drug Abuse Patient Records regulations: The Federal rules restrict any use of the information to criminally investigate or prosecute any alcohol or drug abuse patient.[facility] HospitalIn the event this information is protected by the Federal Confidentiality of Alcohol and Drug Abuse Patient Records regulations: The Federal rules restrict any use of the information to criminally investigate or prosecute any alcohol or drug abuse patient.[facility] HospitalIn the event this information is protected by the Federal Confidentiality of Alcohol and Drug Abuse Patient Records regulations: The Federal rules restrict any use of the information to criminally investigate or prosecute any alcohol or drug abuse patient.[facility] HospitalIn the event this information is protected by the Federal Confidentiality of Alcohol and Drug Abuse Patient Records regulations: The Federal rules restrict any use of the information to criminally investigate or prosecute any alcohol or drug abuse patient.[facility] HospitalIn the event this information is protected by the Federal Confidentiality of Alcohol and Drug Abuse Patient Records regulations: The Federal rules restrict any use of the information to criminally investigate or prosecute any alcohol or drug abuse patient.[facility] HospitalIn the event this information is protected by the Federal Confidentiality of Alcohol and Drug Abuse Patient Records regulations: The Federal rules restrict any use of the information to criminally investigate or prosecute any alcohol or drug abuse patient.[facility] HospitalIn the event this information is protected by the Federal Confidentiality of Alcohol and Drug Abuse Patient Records regulations: The Federal rules restrict any use of the information to criminally investigate or prosecute any alcohol or drug abuse patient.[facility] HospitalIn the event this information is protected by the Federal Confidentiality of Alcohol and Drug Abuse Patient Records regulations: The Federal rules restrict any use of the information to criminally investigate or prosecute any alcohol or drug abuse patient.[facility] HospitalIn the event this information is protected by the Federal Confidentiality of Alcohol and Drug Abuse Patient Records regulations: The Federal rules restrict any use of the information to criminally investigate or prosecute any alcohol or drug abuse patient.[facility] HospitalIn the event this information is protected by the Federal Confidentiality of Alcohol and Drug Abuse Patient Records regulations: The Federal rules restrict any use of the information to criminally investigate or prosecute any alcohol or drug abuse patient.[facility] HospitalIn the event this information is protected by the Federal Confidentiality of Alcohol and Drug Abuse Patient Records regulations: The Federal rules restrict any use of the information to criminally investigate or prosecute any alcohol or drug abuse patient.[facility] HospitalIn the event this information is protected by the Federal Confidentiality of Alcohol and Drug Abuse Patient Records regulations: The Federal rules restrict any use of the information to criminally investigate or prosecute any alcohol or drug abuse patient.[facility] HospitalIn the event this information is protected by the Federal Confidentiality of Alcohol and Drug Abuse Patient Records regulations: The Federal rules restrict any use of the information to criminally investigate or prosecute any alcohol or drug abuse patient.[facility] HospitalIn the event this information is protected by the Federal Confidentiality of Alcohol and Drug Abuse Patient Records regulations: The Federal rules restrict any use of the information to criminally investigate or prosecute any alcohol or drug abuse patient.[facility] HospitalIn the event this information is protected by the Federal Confidentiality of Alcohol and Drug Abuse Patient Records regulations: The Federal rules restrict any use of the information to criminally investigate or prosecute any alcohol or drug abuse patient.[facility] HospitalIn the event this information is protected by the Federal Confidentiality of Alcohol and Drug Abuse Patient Records regulations: The Federal rules restrict any use of the information to criminally investigate or prosecute any alcohol or drug abuse patient.[facility] HospitalIn the event this information is protected by the Federal Confidentiality of Alcohol and Drug Abuse Patient Records regulations: The Federal rules restrict any use of the information to criminally investigate or prosecute any alcohol or drug abuse patient.[facility] HospitalIn the event this information is protected by the Federal Confidentiality of Alcohol and Drug Abuse Patient Records regulations: The Federal rules restrict any use of the information to criminally investigate or prosecute any alcohol or drug abuse patient.[facility] HospitalIn the event this information is protected by the Federal Confidentiality of Alcohol and Drug Abuse Patient Records regulations: The Federal rules restrict any use of the information to criminally investigate or prosecute any alcohol or drug abuse patient.[facility] HospitalIn the event this information is protected by the Federal Confidentiality of Alcohol and Drug Abuse Patient Records regulations: The Federal rules restrict any use of the information to criminally investigate or prosecute any alcohol or drug abuse patient.[facility] HospitalIn the event this information is protected by the Federal Confidentiality of Alcohol and Drug Abuse Patient Records regulations: The Federal rules restrict any use of the information to criminally investigate or prosecute any alcohol or drug abuse patient.[facility] HospitalIn the event this information is protected by the Federal Confidentiality of Alcohol and Drug Abuse Patient Records regulations: The Federal rules restrict any use of the information to criminally investigate or prosecute any alcohol or drug abuse patient.[facility] HospitalIn the event this information is protected by the Federal Confidentiality of Alcohol and Drug Abuse Patient Records regulations: The Federal rules restrict any use of the information to criminally investigate or prosecute any alcohol or drug abuse patient.[facility] HospitalIn the event this information is protected by the Federal Confidentiality of Alcohol and Drug Abuse Patient Records regulations: The Federal rules restrict any use of the information to criminally investigate or prosecute any alcohol or drug abuse patient.[facility] HospitalIn the event this information is protected by the Federal Confidentiality of Alcohol and Drug Abuse Patient Records regulations: The Federal rules restrict any use of the information to criminally investigate or prosecute any alcohol or drug abuse patient.[facility] HospitalIn the event this information is protected by the Federal Confidentiality of Alcohol and Drug Abuse Patient Records regulations: The Federal rules restrict any use of the information to criminally investigate or prosecute any alcohol or drug abuse patient.[facility] HospitalIn the event this information is protected by the Federal Confidentiality of Alcohol and Drug Abuse Patient Records regulations: The Federal rules restrict any use of the information to criminally investigate or prosecute any alcohol or drug abuse patient.[facility] HospitalIn the event this information is protected by the Federal Confidentiality of Alcohol and Drug Abuse Patient Records regulations: The Federal rules restrict any use of the information to criminally investigate or prosecute any alcohol or drug abuse patient.[facility] HospitalIn the event this information is protected by the Federal Confidentiality of Alcohol and Drug Abuse Patient Records regulations: The Federal rules restrict any use of the information to criminally investigate or prosecute any alcohol or drug abuse patient.[facility] HospitalIn the event this information is protected by the Federal Confidentiality of Alcohol and Drug Abuse Patient Records regulations: The Federal rules restrict any use of the information to criminally investigate or prosecute any alcohol or drug abuse patient.[facility] HospitalIn the event this information is protected by the Federal Confidentiality of Alcohol and Drug Abuse Patient Records regulations: The Federal rules restrict any use of the information to criminally investigate or prosecute any alcohol or drug abuse patient.[facility] HospitalIn the event this information is protected by the Federal Confidentiality of Alcohol and Drug Abuse Patient Records regulations: The Federal rules restrict any use of the information to criminally investigate or prosecute any alcohol or drug abuse patient.[facility] HospitalIn the event this information is protected by the Federal Confidentiality of Alcohol and Drug Abuse Patient Records regulations: The Federal rules restrict any use of the information to criminally investigate or prosecute any alcohol or drug abuse patient.[facility] HospitalIn the event this information is protected by the Federal Confidentiality of Alcohol and Drug Abuse Patient Records regulations: The Federal rules restrict any use of the information to criminally investigate or prosecute any alcohol or drug abuse patient.[facility] HospitalIn the event this information is protected by the Federal Confidentiality of Alcohol and Drug Abuse Patient Records regulations: The Federal rules restrict any use of the information to criminally investigate or prosecute any alcohol or drug abuse patient.[facility] HospitalIn the event this information is protected by the Federal Confidentiality of Alcohol and Drug Abuse Patient Records regulations: The Federal rules restrict any use of the information to criminally investigate or prosecute any alcohol or drug abuse patient.[facility] HospitalIn the event this information is protected by the Federal Confidentiality of Alcohol and Drug Abuse Patient Records regulations: The Federal rules restrict any use of the information to criminally investigate or prosecute any alcohol or drug abuse patient.[facility] HospitalIn the event this information is protected by the Federal Confidentiality of Alcohol and Drug Abuse Patient Records regulations: The Federal rules restrict any use of the information to criminally investigate or prosecute any alcohol or drug abuse patient.[facility] HospitalIn the event this information is protected by the Federal Confidentiality of Alcohol and Drug Abuse Patient Records regulations: The Federal rules restrict any use of the information to criminally investigate or prosecute any alcohol or drug abuse patient.[facility] HospitalIn the event this information is protected by the Federal Confidentiality of Alcohol and Drug Abuse Patient Records regulations: The Federal rules restrict any use of the information to criminally investigate or prosecute any alcohol or drug abuse patient.[facility] HospitalIn the event this information is protected by the Federal Confidentiality of Alcohol and Drug Abuse Patient Records regulations: The Federal rules restrict any use of the information to criminally investigate or prosecute any alcohol or drug abuse patient.[facility] HospitalIn the event this information is protected by the Federal Confidentiality of Alcohol and Drug Abuse Patient Records regulations: The Federal rules restrict any use of the information to criminally investigate or prosecute any alcohol or drug abuse patient.[facility] HospitalIn the event this information is protected by the Federal Confidentiality of Alcohol and Drug Abuse Patient Records regulations: The Federal rules restrict any use of the information to criminally investigate or prosecute any alcohol or drug abuse patient.[facility] HospitalIn the event this information is protected by the Federal Confidentiality of Alcohol and Drug Abuse Patient Records regulations: The Federal rules restrict any use of the information to criminally investigate or prosecute any alcohol or drug abuse patient.[facility] HospitalIn the event this information is protected by the Federal Confidentiality of Alcohol and Drug Abuse Patient Records regulations: The Federal rules restrict any use of the information to criminally investigate or prosecute any alcohol or drug abuse patient.[facility] HospitalIn the event this information is protected by the Federal Confidentiality of Alcohol and Drug Abuse Patient Records regulations: The Federal rules restrict any use of the information to criminally investigate or prosecute any alcohol or drug abuse patient.[facility] HospitalIn the event this information is protected by the Federal Confidentiality of Alcohol and Drug Abuse Patient Records regulations: The Federal rules restrict any use of the information to criminally investigate or prosecute any alcohol or drug abuse patient.[facility] HospitalIn the event this information is protected by the Federal Confidentiality of Alcohol and Drug Abuse Patient Records regulations: The Federal rules restrict any use of the information to criminally investigate or prosecute any alcohol or drug abuse patient.[facility] HospitalIn the event this information is protected by the Federal Confidentiality of Alcohol and Drug Abuse Patient Records regulations: The Federal rules restrict any use of the information to criminally investigate or prosecute any alcohol or drug abuse patient.[facility] HospitalIn the event this information is protected by the Federal Confidentiality of Alcohol and Drug Abuse Patient Records regulations: The Federal rules restrict any use of the information to criminally investigate or prosecute any alcohol or drug abuse patient.[facility] HospitalIn the event this information is protected by the Federal Confidentiality of Alcohol and Drug Abuse Patient Records regulations: The Federal rules restrict any use of the information to criminally investigate or prosecute any alcohol or drug abuse patient.[facility] HospitalIn the event this information is protected by the Federal Confidentiality of Alcohol and Drug Abuse Patient Records regulations: The Federal rules restrict any use of the information to criminally investigate or prosecute any alcohol or drug abuse patient.[facility] HospitalIn the event this information is protected by the Federal Confidentiality of Alcohol and Drug Abuse Patient Records regulations: The Federal rules restrict any use of the information to criminally investigate or prosecute any alcohol or drug abuse patient.[facility] HospitalIn the event this information is protected by the Federal Confidentiality of Alcohol and Drug Abuse Patient Records regulations: The Federal rules restrict any use of the information to criminally investigate or prosecute any alcohol or drug abuse patient.[facility] HospitalIn the event this information is protected by the Federal Confidentiality of Alcohol and Drug Abuse Patient Records regulations: The Federal rules restrict any use of the information to criminally investigate or prosecute any alcohol or drug abuse patient.[facility] HospitalIn the event this information is protected by the Federal Confidentiality of Alcohol and Drug Abuse Patient Records regulations: The Federal rules restrict any use of the information to criminally investigate or prosecute any alcohol or drug abuse patient.[facility] HospitalIn the event this information is protected by the Federal Confidentiality of Alcohol and Drug Abuse Patient Records regulations: The Federal rules restrict any use of the information to criminally investigate or prosecute any alcohol or drug abuse patient.[facility] HospitalIn the event this information is protected by the Federal Confidentiality of Alcohol and Drug Abuse Patient Records regulations: The Federal rules restrict any use of the information to criminally investigate or prosecute any alcohol or drug abuse patient.[facility] HospitalIn the event this information is protected by the Federal Confidentiality of Alcohol and Drug Abuse Patient Records regulations: The Federal rules restrict any use of the information to criminally investigate or prosecute any alcohol or drug abuse patient.[facility] HospitalIn the event this information is protected by the Federal Confidentiality of Alcohol and Drug Abuse Patient Records regulations: The Federal rules restrict any use of the information to criminally investigate or prosecute any alcohol or drug abuse patient.[facility] HospitalIn the event this information is protected by the Federal Confidentiality of Alcohol and Drug Abuse Patient Records regulations: The Federal rules restrict any use of the information to criminally investigate or prosecute any alcohol or drug abuse patient.[facility] HospitalIn the event this information is protected by the Federal Confidentiality of Alcohol and Drug Abuse Patient Records regulations: The Federal rules restrict any use of the information to criminally investigate or prosecute any alcohol or drug abuse patient.[facility] HospitalIn the event this information is protected by the Federal Confidentiality of Alcohol and Drug Abuse Patient Records regulations: The Federal rules restrict any use of the information to criminally investigate or prosecute any alcohol or drug abuse patient.[facility] HospitalIn the event this information is protected by the Federal Confidentiality of Alcohol and Drug Abuse Patient Records regulations: The Federal rules restrict any use of the information to criminally investigate or prosecute any alcohol or drug abuse patient.[facility] HospitalIn the event this information is protected by the Federal Confidentiality of Alcohol and Drug Abuse Patient Records regulations: The Federal rules restrict any use of the information to criminally investigate or prosecute any alcohol or drug abuse patient.[facility] HospitalIn the event this information is protected by the Federal Confidentiality of Alcohol and Drug Abuse Patient Records regulations: The Federal rules restrict any use of the information to criminally investigate or prosecute any alcohol or drug abuse patient.[facility] Reason for Visit (unrecogniz ed section and content) Reason Comments Results Reason Comments Erroneous encounter-disregard Reason Onset Date Comments Refill Request 02/05/2022 Reason Comments Radiology US Specialty Diagnoses / Procedures Referred By Contac t Referred To Contact US IMAGING Diagnoses Renal cyst Procedures US KIDNEY/BLADDER US RETROPERITONEAL REAL TIME W/IMAGE COMPLETE Clarice Petersen MD [address] [place] [address] Us Imaging Referral ID Status Reason Start Date Expiration Date V isits Requested Visits Authorized [id number] Closed Auto-Generate d Referral 01/24/2022 02/23/2023 1 1 Reason Comments Diabetes Specialty Diagnoses / Procedures Referred By Contac t Referred To Contact Ophthalmology Diagnoses Type 2 diabetes mellitus with peripheral neuropathy (HCC) Procedures CONSULT TO OPHTHALMOLOGY OFFICE/OUTPATIENT [facility] 60-74 MINUTES Clarice Petersen MD [address] [place] [address] Referral ID Status Reason Start Date Expiration Date V isits Requested Visits Authorized [id number] Closed PCP Requested Referral 01/24/2022 01/24/2023 1 1 Reason Comments Spirometry Specialty Diagnoses / Procedures Referred By Contac t Referred To Contact [facility] Diagnoses Mild persistent asthma without complication Procedures SPIROMETRY WITH DILATOR IF OBSTRUCTED BRNCDILAT RSPSE SPMTRY PRE&POST-BRNCDILAT ADMN Barbie Ruiz MD [address] [place] [address] [facility] [place] [address] [place] [id number] Referral ID Status Reason Start Date Expiration Date V isits Requested Visits Authorized [id number] Closed Auto-Generate d Referral 02/28/2022 03/30/2023 1 1 Specialty Diagnoses / Procedures Referred By Contac t Referred To Contact [facility] Diagnoses Mild persistent asthma without complication Procedures NITRIC OXIDE, EXHALED NITRIC OXIDE GAS DETERMINATION Barbie Ruiz MD [address] [place] [address] [facility] [place] [address] [place] [id number] Referral ID Status Reason Start Date Expiration Date V isits Requested Visits Authorized [id number] Closed Auto-Generate d Referral 02/28/2022 03/30/2023 1 1 Reason Comments Asthma Specialty Diagnoses / Procedures Referred By Contac t Referred To Contact Pulmonary and Critical Care Medicine Diagnoses Pulmonary HTN (HCC) Chronic obstructive pulmonary disease, unspecified COPD type (HCC) Lung nodules Procedures CONSULT TO PULM/CRITICAL CARE OFFICE/OUTPATIENT [facility] 60-74 MINUTES Clarice Petersen MD [address] [place] [address] Referral ID Status Reason Start Date Expiration Date V isits Requested Visits Authorized [id number] Closed PCP Requested Referral 01/24/2022 01/24/2023 1 [...] right shoulder Procedures CONSULT TO ORTHOPAEDICS OFFICE/OUTPATIENT [facility] 60-74 MINUTES Franklin Mirza PA-C [address] [place] [address] Referral ID Status Reason Start Date Expiration Date V isits Requested Visits Authorized [id number] Closed PCP Requested Referral 04/03/2023 04/01/2024 1 1 Reason Onset Date Comments Refill Request 05/19/2023 Reason Comments Refill Request Reason Onset Date Comments Refill Request 08/08/2023 Reason Comments Syncope Reason Comments Syncope Last evening x1. Specialty Diagnoses / Procedures Referred By Contac t Referred To Contact US IMAGING Diagnoses Elevated lipase Procedures US ABD RIGHT UPPER QUADRANT US ABDOMINAL REAL TIME W/IMAGE LIMITED Clarice Petersen MD [address] [place] [address] [place] [address] Referral ID Status Reason Start Date Expiration Date V isits Requested Visits Authorized [id number] Closed Auto-Generate d Referral 02/20/2023 03/21/2024 1 1 Reason Comments Radiology NM Specialty Diagnoses / Procedures Referred By Contac t Referred To Contact MOLECULAR & FUNCTIONAL IMAGING Diagnoses Encounter for screening for cardiovascular disorders Chest pain, unspecified type Procedures NM CARDIAC PERF STRESS/PHARM MYOCARDIAL SPECT MULTIPLE STUDIES Franklin Mirza PA-C [address] [place] [address] Molecular & Functional Imaging [address] [place] [address] Referral ID Status Reason Start Date Expiration Date V isits Requested Visits Authorized [id number] Closed Auto-Generate d Referral 04/01/2023 04/30/2024 1 1 Reason Comments 6 Month Exam Reason Comments New Patient Specialty Diagnoses / Procedures Referred By Contac t Referred To Contact Diagnoses Encounter for screening for lung cancer Procedures CONSULT [facility] Franklin Mirza PA-C [address] [place] [address] Referral ID Status Reason Start Date Expiration Date Visits Requested Visits Authorized [id number] Ref Not Required PCP Requested Referral 12/28/2023 1 1 Specialty Diagnoses / Procedures Referred By Contac t Referred To Contact MR IMAGING Diagnoses Syncope and collapse Abnormal CT of brain Procedures MRI BRAIN WO/W IVCON MRI BRAIN BRAIN STEM W/O W/CONTRAST MATERIAL Sahra Moreno APRN.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 [address] [place] [address] Mr Imaging [facility] Referral ID Status Reason Start Date Expiration Date V isits Requested Visits Authorized [id number] Closed Auto-Generate d Referral 09/12/2023 10/11/2024 1 1 Reason Onset Date Comments Refill Request 10/16/2023 Reason Comments Insurance Authorization Reason Comments Appointment [facility] CT Scan Reason Onset Date Comments Refill Request 12/17/2023 Reason Onset Date Comments Refill Request 12/17/2023 Reason Onset Date Comments Population Health Navigation Outreach 01/31/2024 [facility] Annual Wellness Visit Reason Comments Medication Request Reason Comments Consult Specialty Diagnoses / Procedures Referred By Marcelo t Referred To Contact General Surgery / GENERAL SURGERY Diagnoses Thyroid nodule THYROID NODULE - U/S 01/08/2024 1.6 CM RIGHT SIDED NODULE - PCP REFERRING - IN SCANNED DOC Procedures OFFICE/OUTPATIENT NEW HIGH MDM 60 MINUTES NEW DDI PATIENT Jake Raymond MD [address] [place] [address] Pelon Winchester MD [address] [place] [address] Referral ID Status Reason Start Date Expiration Date V isits Requested Visits Authorized [id number] Authorized 02/05/2024 11/09/2024 99 99 Reason Comments Procedure Fna of right thyroid Specialty Diagnoses / Procedures Referred By Marcelo t Referred To Contact General Surgery / GENERAL SURGERY Diagnoses 30 min fna right thyroid Procedures SURGERY 30 Pelon Winchester MD [address] [place] [address] Pelon Winchester MD [address] [place] [address] Referral ID Status Reason Start Date Expiration Date Visits Re quested Visits Authorized [id number] Closed 04/12/2024 11/09/2024 1 1 Reason Comments Follow Up Specialty Diagnoses / Procedures Referred By Marcelo t Referred To Contact General Surgery / GENERAL SURGERY Diagnoses Follow up Procedures EST DDI PATIENT Pelon Winchester MD [address] [place] [address] Pelon Winchester MD [address] [place] [address] Referral ID Status Reason Start Date Expiration Date Visits Re quested Visits Authorized [id number] Closed 04/21/2024 11/09/2024 1 1 Reason Comments New Patient Specialty Diagnoses / Procedures Referred By Contac t Referred To Contact Hematology/Oncology / HEMATOLOGY/ONCOLOGY Diagnoses new patient ref by Jake Raymond for Monoclonel Gammopathy* Procedures NEW PATIENT Self Cristhian Smith, DO [address] [facility] [place] [address] Referral ID Status Reason Start Date Expiration Date V isits Requested Visits Authorized [id number] Authorized 06/02/2024 11/09/2024 99 99 Reason Comments Patient Question Reason Comments Established Patient Specialty Diagnoses / Procedures Referred By Contac t Referred To Contact Hematology/Oncology / HEMATOLOGY/ONCOLOGY Diagnoses new patient ref by Jake Raymond for Monoclonel Gammopathy* Procedures NEW PATIENT Self Cristhian Smith, DO [address] [facility] [place] [address] Reason Onset Date Comments Refill Request 06/28/2024 Reason Onset Date Comments Refill Request 07/06/2024 Specialty Diagnoses / Procedures Referred By Contac t Referred To Contact MR IMAGING Diagnoses Monoclonal gammopathy Procedures MRI PELVIS ORTHO GENERAL WO/W IVCON MRI ANY JT LOWER EXTREM W/O & W/CONTRAST FIDELINAL Cristhian Smith, DO [address] [facility] [place] [address] [place] [address] Referral ID Status Reason Start Date Expiration Date V isits Requested Visits Authorized [id number] Closed Auto-Generate d Referral 06/28/2024 07/28/2025 1 1 Specialty Diagnoses / Procedures Referred By Contac t Referred To Contact MR IMAGING Diagnoses Monoclonal gammopathy Procedures MRI THORACIC SPINE WO/W IVCON MRI SPINAL CANAL THORACIC W/O & W/CONTR FIDELINAL Cristhian Smith, DO [address] [place] [address] [place] [address] Referral ID Status Reason Start Date Expiration Date V isits Requested Visits Authorized [id number] Closed Auto-Generate d Referral 06/28/2024 07/28/2025 1 1 Specialty Diagnoses / Procedures Referred By Contac t Referred To Contact MR IMAGING Diagnoses Monoclonal gammopathy Procedures MRI LUMBAR SPINE WO/W IVCON MRI SPINAL CANAL LUMBAR W/O & W/CONTR MATRL Cristhian Smith, DO [address] [place] [address] [place] [address] Referral ID Status Reason Start Date Expiration Date V isits Requested Visits Authorized [id number] Closed Auto-Generate d Referral 06/28/2024 07/28/2025 1 1 Specialty Diagnoses / Procedures Referred By Contac t Referred To Contact MR IMAGING Diagnoses Monoclonal gammopathy Procedures MRI CERVICAL SPINE WO/W IVCON MRI SPINAL CANAL CERVICAL W/O & W/CONTR MATRL Cristhian Smith, DO [address] [place] [address] [place] [address] Referral ID Status Reason Start Date Expiration Date V isits Requested Visits Authorized [id number] Closed Auto-Generate d Referral 06/28/2024 07/28/2025 1 1 Reason Comments Procedure BMBX Reason Onset Date Comments Refill Request 08/10/2024 Reason Comments Patient appt/question Reason Comments Established Patient Specialty Diagnoses / Procedures Referred By Marcelo t Referred To Contact Hematology/Oncology / HEMATOLOGY/ONCOLOGY Diagnoses OV/MRI 07/29/BMBX 08/05* Procedures EST COMPLEX Cristhian Smith, DO [address] [place] [address] Cristhian Smith, DO [address] [place] [address] Referral ID Status Reason Start Date Expiration Date Visits Re quested Visits Authorized [id number] Closed 08/17/2024 11/09/2024 1 1 Reason Comments Sore Throat ERVIN x1 month Reason Onset Date Comments Population Health Navigation Outreach 12/17/2024 [employer] Unknown PCP Reason Onset Date Comments Allied Health Visit 02/08/2025 Medication A dherence Outreach Reason Onset Date Comments Allied Health Visit 02/10/2025 Medication A dherence Outreach Specialty Diagnoses / Procedures Referred By Marcelo t Referred To Contact Hematology/Oncology / HEMATOLOGY/ONCOLOGY Diagnoses 6 MO OV/LABS 02/10* Procedures OFFICE/OUTPATIENT ESTABLISHED SF MDM 10 MIN OFFICE/OUTPATIENT ESTABLISHED LOW MDM 20 MIN OFFICE/OUTPATIENT ESTABLISHED MOD MDM 30 MIN OFFICE/OUTPATIENT ESTABLISHED HIGH MDM 40 MIN EST SIMPLE Cristhian Smith, DO [address] [place] [address] Phone: tel: Cristhian Smith DO [address] [place] [address] Phone: tel: fax: Referral ID Status Reason Start Date Expiration Date Visits Re quested Visits Authorized [id number] Closed 02/18/2025 11/09/2025 1 1 Reason Onset Date Comments Allied Health Visit 03/10/2025 Medication A dherence Outreach Reason Comments Returning Patient's Call Care Teams (unrecognized sec tion and content) Medical Anthropologist Relationship Specialty Start Date End Date Clarice Petersen MD [address] [place] [address] [id number] PCP - General Family Practice 08/17/12 Medical Anthropologist Relationship Specialty Start Date End Date Clarice Petersen MD [address] [place] [address] [id number] PCP - General Family Practice 08/17/12 Medical Anthropologist Relationship Specialty Start Date End Date Clarice Petersen MD [address] [place] [address] [id number] PCP - General Family Practice 08/17/12 Medical Anthropologist Relationship Specialty Start Date End Date Clarice Petersen MD [address] [place] [address] [id number] PCP - General Family Practice 08/17/12 Medical Anthropologist Relationship Specialty Start Date End Date Clarice Petersen MD [address] [place] [address] [id number] PCP - General Family Practice 08/17/12 Medical Anthropologist Relationship Specialty Start Date End Date Clarice Petersen MD [address] [place] [address] PCP - General Family Practice 08/17/12 Medical Anthropologist Relationship Specialty Start Date End Date Clarice Petersen MD [address] [facility] [place] [address] PCP - General Family Practice 08/17/12 Medical Anthropologist Relationship Specialty Start Date End Date Clarice Petersen MD [address] [facility] [place] [address] PCP - General Family Practice 08/17/12 Medical Anthropologist Relationship Specialty Start Date End Date Clarice Petersen MD [address] [facility] [place] [address] PCP - General Family Practice 08/17/12 Medical Anthropologist Relationship Specialty Start Date End Date Clarice Petersen MD [address] [facility] [place] [address] PCP - General Family Practice 08/17/12 Medical Anthropologist Relationship Specialty Start Date End Date Clarice Petersen MD [address] [facility] [place] [address] PCP - General Family Practice 08/17/12 Medical Anthropologist Relationship Specialty Start Date End Date Clarice Petersen MD [address] [facility] [place] [address] PCP - General Family Practice 08/17/12 Medical Anthropologist Relationship Specialty Start Date End Date Clarice Petersen MD [address] [facility] [place] [address] PCP - General Family Practice 08/17/12 Medical Anthropologist Relationship Specialty Start Date End Date Clarice Petersen MD [address] [facility] [place] [address] PCP - General Family Practice 08/17/12 Medical Anthropologist Relationship Specialty Start Date End Date Clarice Petersen MD [address] [facility] [place] [address] PCP - General Family Practice 08/17/12 Medical Anthropologist Relationship Specialty Start Date End Date Clarice Petersen MD [address] [facility] [place] [address] PCP - General Family Practice 08/17/12 Medical Anthropologist Relationship Specialty Start Date End Date Clarice Petersen MD [address] [facility] [place] [address] PCP - General Family Medicine 08/17/12 Medical Anthropologist Relationship Specialty Start Date End Date Clarice Petersen MD [address] [facility] [place] [address] PCP - General Family Medicine 08/17/12 Medical Anthropologist Relationship Specialty Start Date End Date Clarice Petersen MD [address] [facility] [place] [address] PCP - General Family Medicine 08/17/12 Medical Anthropologist Relationship Specialty Start Date End Date Clarice Petersen MD [address] [facility] [place] [address] PCP - General Family Medicine 08/17/12 Medical Anthropologist Relationship Specialty Start Date End Date Clarice Petersen MD [address] [facility] [place] [address] PCP - General Family Medicine 08/17/12 Medical Anthropologist Relationship Specialty Start Date End Date Clarice Petersen MD [address] [facility] [place] [address] PCP - General Family Medicine 08/17/12 Medical Anthropologist Relationship Specialty Start Date End Date Clarice Petersen MD [address] [facility] [place] [address] PCP - General Family Medicine 08/17/12 Medical Anthropologist Relationship Specialty Start Date End Date Clarice Petersen MD [address] [facility] [place] [address] PCP - General Family Medicine 08/17/12 Medical Anthropologist Relationship Specialty Start Date End Date Clarice Petersen MD [address] [place] [address] PCP - General Family Medicine 08/17/12 Medical Anthropologist Relationship Specialty Start Date End Date Clarice Petersen MD [address] [place] [address] PCP - General Family Medicine 08/17/12 Medical Anthropologist Relationship Specialty Start Date End Date Clarice Petersen MD [address] [place] [address] PCP - General Family Medicine 08/17/12 Team Status: Active Member Role Status Dates Dr. Clarice Petersen MD Family Provider Active Dr. Clarice Petersen MD Primary Care Provider Active Team Status: Inactive Member Role Status Dates Dr. Clarice Petersen MD Primary Care Provider Active Dr. Pranay Armstrong MD Attending Provider, Emergency Provider Active Team Status: Inactive Member Role Status Dates Dr. Clarice Petersen MD Primary Care Provider Active Dr. Satya Cotton MD Emergency Provider Active Medical Anthropologist Relationship Specialty Start Date End Date Clarice Petersen MD [address] [place] [address] PCP - General Family Medicine 08/17/12 Medical Anthropologist Relationship Specialty Start Date End Date Clarice Petersen MD [address] [facility] [place] [address] PCP - General Family Medicine 08/17/12 Medical Anthropologist Relationship Specialty Start Date End Date Clarice Petersen MD [address] [place] [address] PCP - General Family Medicine 08/17/12 Medical Anthropologist Relationship Specialty Start Date End Date Clarice Petersen MD [address] [place] [address] PCP - General Family Medicine 08/17/12 Medical Anthropologist Relationship Specialty Start Date End Date Clarice Petersen MD [address] [place] [address] PCP - General Family Medicine 08/17/12 Medical Anthropologist Relationship Specialty Start Date End Date Clarice Petersen MD [address] [place] [address] PCP - General Family Medicine 08/17/12 Medical Anthropologist Relationship Specialty Start Date End Date Clarice Petersen MD [address] [place] [address] PCP - General Family Medicine 08/17/12 Medical Anthropologist Relationship Specialty Start Date End Date Clarice Petersen MD [address] [place] [address] PCP - General Family Medicine 08/17/12 Medical Anthropologist Relationship Specialty Start Date End Date Clarice Petersen MD [address] [place] [address] PCP - General Family Medicine 08/17/12 Medical Anthropologist Relationship Specialty Start Date End Date Clarice Petersen MD [address] [place] [address] PCP - General Family Medicine 08/17/12 Medical Anthropologist Relationship Specialty Start Date End Date Clarice Petersen MD [address] [place], [place] 796311 PCP - General Family Medicine 08/17/12 Medical Anthropologist Relationship Specialty Start Date End Date Clarice Petersen MD [address] [place], [place] 478861 PCP - General Family Medicine 08/17/12 Medical Anthropologist Relationship Specialty Start Date End Date Clarice Petersen MD [address] [facility] [place] [address] PCP - General Family Medicine 08/17/12 Medical Anthropologist Relationship Specialty Start Date End Date Clarice Petersen MD [address] [place] [address] PCP - General Family Medicine 08/17/12 Medical Anthropologist Relationship Specialty Start Date End Date Clarice Petersen MD [address] [place] [address] PCP - General Family Medicine 08/17/12 Medical Anthropologist Relationship Specialty Start Date End Date Franklin Mirza PA-C [address] [place] [address] PCP - General Family Medicine 09/29/23 Medical Anthropologist Relationship Specialty Start Date End Date Franklin Mirza PA-C [address] [place] [address] PCP - General Family Medicine 09/29/23 Medical Anthropologist Relationship Specialty Start Date End Date Franklin Mirza PA-C [address] [place] [address] PCP - General Family Medicine 09/29/23 Barbie Ruiz MD [address] [place] [address] Pulmonary and Critical Care Medicine 10/14/23 Medical Anthropologist Relationship Specialty Start Date End Date Franklin Mirza PA-C [address] [place] [address] PCP - General Family Medicine 09/29/23 Barbie Ruiz MD [address] [place] [address] Pulmonary and Critical Care Medicine 10/14/23 Medical Anthropologist Relationship Specialty Start Date End Date Franklin Mirza PA-C [address] [place] [address] PCP - General Family Medicine 09/29/23 Barbie Ruiz MD [address] [place] [address] Pulmonary and Critical Care Medicine 10/14/23 Medical Anthropologist Relationship Specialty Start Date End Date Franklin Mirza PA-C [address] [place] [address] PCP - General Family Medicine 09/29/23 Barbie Ruiz MD [address] [place] [address] Pulmonary and Critical Care Medicine 10/14/23 Medical Anthropologist Relationship Specialty Start Date End Date Franklin Mirza PA-C [address] [place] [address] PCP - General Family Medicine 09/29/23 Barbie Ruiz MD [address] [place] [address] Pulmonary and Critical Care Medicine 10/14/23 Medical Anthropologist Relationship Specialty Start Date End Date Franklin Mirza PA-C [address] [place] [address] PCP - General Family Medicine 09/29/23 Barbie Ruiz MD [address] [address] Pulmonary and Critical Care Medicine 10/14/23 Medical Anthropologist Relationship Specialty Start Date End Date Franklin Mirza PA-C [address] [place] [address] PCP - General Family Medicine 09/29/23 Barbie Ruiz MD [address] [place] [address] Pulmonary and Critical Care Medicine 10/14/23 Medical Anthropologist Relationship Specialty Start Date End Date Franklin Mirza PA-C [address] [place] [address] PCP - General Family Medicine 09/29/23 Barbie Ruiz MD [address] [place] [address] Pulmonary and Critical Care Medicine 10/14/23 Team Status: Active Member Role Status Dates Dr. Clarice Petersen MD Family Provider Active Dr. Jake Raymond MD Primary Care Provider Active Team Status: Inactive Member Role Status Dates Dr. Jake Raymond MD Primary Care Pr ovider, Attending Provider, Referring Provider Active Team Status: Inactive Member Role Status Dates Dr. aJke Raymond MD Primary Care Provider, Attend ing Provider Active Medical Anthropologist Relationship Specialty Start Date End Date Jake Raymond MD [address] [address] PCP - General Family Medicine 01/14/24 Barbie Ruiz MD [address] [place] [address] Pulmonary and Critical Care Medicine 10/14/23 Medical Anthropologist Relationship Specialty Start Date End Date Jake Raymond MD [address] [place] [address] PCP - General Family Medicine 01/14/24 Barbie Ruiz MD [address] [place] [address] Pulmonary and Critical Care Medicine 10/14/23 Medical Anthropologist Relationship Specialty Start Date End Date Jake Raymond MD [address] [facility] [address] [place] [address] PCP - General Family Medicine 01/14/24 Barbie Ruiz MD [address] [place] [address] Pulmonary and Critical Care Medicine 10/14/23 Medical Anthropologist Relationship Specialty Start Date End Date Jake Raymond MD [address] [place] [address] PCP - General Family Medicine 01/14/24 Barbie Ruiz MD [address] [place] [address] Pulmonary and Critical Care Medicine 10/14/23 Medical Anthropologist Relationship Specialty Start Date End Date Jake Raymond MD [address] [facility] [address] [place] [address] PCP - General Family Medicine 01/14/24 Barbie Ruiz MD [address] [place] [address] Pulmonary and Critical Care Medicine 10/14/23 Medical Anthropologist Relationship Specialty Start Date End Date Jake Raymond MD [address] [facility] [address] [address] PCP - General Family Medicine 01/14/24 Barbie Ruiz MD [address] [place] [address] Pulmonary and Critical Care Medicine 10/14/23 Medical Anthropologist Relationship Specialty Start Date End Date Hemanth Carranza MD [address] [place] [address] PCP - General Family Medicine 06/24/24 Barbie Ruiz MD [address] [place] [address] Pulmonary and Critical Care Medicine 10/14/23 Medical Anthropologist Relationship Specialty Start Date End Date Hemanth Carranza MD [address] [place] [address] PCP - General Family Medicine 06/24/24 Barbie Ruiz MD [address] [place] [address] Pulmonary and Critical Care Medicine 10/14/23 Medical Anthropologist Relationship Specialty Start Date End Date Hemanth Carranza MD [address] [place] [address] PCP - General Family Medicine 06/24/24 Barbie Ruiz MD [address] [place] [address] Pulmonary and Critical Care Medicine 10/14/23 Medical Anthropologist Relationship Specialty Start Date End Date Hemanth Carranza MD [address] [facility] [place] [address] PCP - General Family Medicine 06/24/24 Barbie Ruiz MD [address] [facility] [place] [address] Pulmonary and Critical Care Medicine 10/14/23 Medical Anthropologist Relationship Specialty Start Date End Date Hemanth Carranza MD [address] [place] [address] PCP - General Family Medicine 06/24/24 Barbie Ruiz MD [address] [place] [address] Pulmonary and Critical Care Medicine 10/14/23 Medical Anthropologist Relationship Specialty Start Date End Date Hemanth Carranza MD [address] [facility] [place] [address] PCP - General Family Medicine 06/24/24 Barbie Ruiz MD [address] [facility] [place] [address] Pulmonary and Critical Care Medicine 10/14/23 Medical Anthropologist Relationship Specialty Start Date End Date Hemanth Carranza MD [address] [facility] [place] [address] PCP - General Family Medicine 06/24/24 Barbie Ruiz MD [address] [place] [address] Pulmonary and Critical Care Medicine 10/14/23 Medical Anthropologist Relationship Specialty Start Date End Date Hemanth Carranza MD [address] [place] [address] PCP - General Family Medicine 06/24/24 Barbie Ruiz MD [address] [place] [address] Pulmonary and Critical Care Medicine 10/14/23 Medical Anthropologist Relationship Specialty Start Date End Date Clarice Petersen MD [address] [place] [address] PCP - General Family Medicine 08/17/12 09/28/23 Medical Anthropologist Relationship Specialty Start Date End Date Hemanth Carranza MD [address] [place] [address] PCP - General Family Medicine 06/24/24 Barbie Ruiz MD [address] [place] [address] Pulmonary and Critical Care Medicine 10/14/23 Medical Anthropologist Relationship Specialty Start Date End Date Hemanth Carranza MD [address] [place] [address] PCP - General Family Medicine 06/24/24 Barbie Ruiz MD [address] [place] [address] Pulmonary and Critical Care Medicine 10/14/23 Medical Anthropologist Relationship Specialty Start Date End Date Barbie Ruiz MD [address] [place] [address] Pulmonary and Critical Care Medicine 10/14/23 Medical Anthropologist Relationship Specialty Start Date End Date Clarice Petersen MD [address] [facility] [place] [address] PCP - General Family Medicine 08/17/12 09/28/23 Medical Anthropologist Relationship Specialty Start Date End Date Clarice Petersen MD [address] [place] [address] PCP - General Family Medicine 08/17/12 09/28/23 Medical Anthropologist Relationship Specialty Start Date End Date Clarice Petersen MD [address] [place] [address] PCP - General Family Medicine 08/17/12 09/28/23 Medical Anthropologist Relationship Specialty Start Date End Date Clarice Petersen MD [address] [place] [address] PCP - General Family Medicine 08/17/12 09/28/23 Medical Anthropologist Relationship Specialty Start Date End Date Barbie Ruiz MD [address] [place] [address] Pulmonary and Critical Care Medicine 10/14/23 Medical Anthropologist Relationship Specialty Start Date End Date Jake Raymond MD [address] [place] [address] [place] [address] PCP - General Family Medicine 01/14/24 06/23/24 Hemanth Carranza MD [address] [place] [address] PCP - General Family Medicine 06/24/24 Barbie Ruiz MD [address] [place] [address] Pulmonary and Critical Care Medicine 10/14/23 Medical Anthropologist Relationship Specialty Start Date End Date Barbie Ruiz MD [address] [place] [address] Pulmonary and Critical Care Medicine 10/14/23 Medical Anthropologist Relationship Specialty Start Date End Date Barbie Ruiz MD [address] [place] [address] Pulmonary and Critical Care Medicine 10/14/23 Medical Anthropologist Relationship Specialty Start Date End Date Barbie Ruiz MD [address] [place] [address] Pulmonary and Critical Care Medicine 10/14/23 PodlogarSahra APRN.CNP [address] [place] [address] Family Medicine 12/17/24 Team Status: Active Member Role Status Dates Dr. Clarice Petersen MD Family Provider Active No Primary Care Physician Primary Care Provider Active Team Status: Inactive Member Role Status Dates Alexus URBANO, Primary Care Provider Active Start: September 30, 2024 End: September 30, 2024 Dr. Juarez Harris MD Attending Provider Active Start: September 30, 2024 End: September 30, 2024 Dr. Juarez Harris MD Referring Provider Active Start: September 30, 2024 End: September 30, 2024 Team Status: Inactive Member Role Status Dates Alexus URBANO, DO Primary Care Provider Active Start: October 18, 2024 End: October 18, 2024 Dr. Juarez Harris MD Attending Provider Active Start: October 18, 2024 End: October 18, 2024 Dr. Juarez Harris MD Referring Provider Active Start: October 18, 2024 End: October 18, 2024 Team Status: Inactive Member Role Status Dates Alexus Machuca VSC, DO Primary Care Provider Active Start: December 28, 2024 End: December 28, 2024 Alexus Machuca VSC, DO Referring Provider Active Start: December 28, 2024 End: December 28, 2024 Dr. Pernell Philippe DO Attending Provider Active Start: December 28, 2024 End: December 28, 2024 Team Status: Inactive Member Role Status Dates No Primary Care Physician Primary Care Provider Active Start: December 28, 2024 End: December 28, 2024 Dr. Pernell Philippe DO Attending Provider Active Start: December 28, 2024 End: December 28, 2024 Dr. Pernell Philippe DO Referring Provider Active Start: December 28, 2024 End: December 28, 2024 Team Status: Inactive Member Role Status Dates No Primary Care Physician Primary Care Provider Active Start: January 05, 2025 End: January 05, 2025 Dr. Pernell Philippe DO Attending Provider Active Start: January 05, 2025 End: January 05, 2025 Dr. Pernell Philippe DO Referring Provider Active Start: January 05, 2025 End: January 05, 2025 Medical Anthropologist Relationship Specialty Start Date End Date Barbie Ruiz MD [address] [place] [address] Pulmonary and Critical Care Medicine 10/14/23 Sahra Moreno APRN.CNP [address] [place] [address] Family Medicine 12/17/24 Medical Anthropologist Relationship Specialty Start Date End Date Barbie Ruiz MD [address] [place] [place] [address] Pulmonary and Critical Care Medicine 10/14/23 Sahra Moreno APRN.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 [address] [facility] [place], [place] [address] Family Medicine 12/17/24 Medical Anthropologist Relationship Specialty Start Date End Date Dennis Chow MD [address] [place] [address] PCP - General Internal Medicine 02/18/25 Rachel Madden, RADHA [address] [facility] [place] [address] Family Medicine 02/18/25 Medical Anthropologist Relationship Specialty Start Date End Date Dennis Chow MD [address] [facility] [place] [address] PCP - General Internal Medicine 02/18/25 Rachel Madden, RADHA [address] [facility] [address] [place], [place] [address] Family Medicine 02/18/25 Team Status: Active Member Role Status Dates Dr. Dennis Chow MD Primary Care Provider Active Team Status: Inactive Member Role Status Dates Dr. Jake Raymond MD Referring Provider Active Start: February 02, 2025 End: February 02, 2025 Rachel Madden NP-C Attending Provider Active Start: February 02, 2025 End: February 02, 2025 No Primary Care Physician Primary Care Provider Active Start: February 02, 2025 End: February 02, 2025 Team Status: Inactive Member Role Status Dates No Primary Care Physician Primary Care Provider Active Start: March 09, 2025 End: March 09, 2025 No Primary Care Physician Referring Provider Active Start: March 09, 2025 End: March 09, 2025 Dr. Pernell Philippe DO Attending Provider Active Start: March 09, 2025 End: March 09, 2025 Team Status: Active Member Role Status Dates No Primary Care Physician Primary Care Provider Active Start: March 09, 2025 No Primary Care Physician Referring Provider Active Start: March 09, 2025 Dr. Pernell Philippe DO Attending Provider Active Start: March 09, 2025 Dr. Pernell Philippe DO Other Provider Active St art: March 09, 2025 Team Status: Inactive Member Role Status Dates No Primary Care Physician Primary Care Provider Active Start: March 16, 2025 End: March 16, 2025 No Primary Care Physician Referring Provider Active Start: March 16, 2025 End: March 16, 2025 Dr. Dennis Chow MD Attending Provider Active Start: March 16, 2025 End: March 16, 2025 Team Status: Inactive Member Role Status Dates PERLA Nick Attending Provider Active Start: March 17, 2025 End: March 17, 2025 PERLA Nick Referring Provider Active Start: March 17, 2025 End: March 17, 2025 Dr. Dennis Chow MD Primary Care Provider Active Start: March 17, 2025 End: March 17, 2025 Team Status: Inactive Member Role Status Dates Dr. Dennis Chow MD Primary Care Provider Active Start: March 22, 2025 End: March 22, 2025 Dr. Dennis Chow MD Attending Provider Active Start: March 22, 2025 End: March 22, 2025 Dr. Dennis Chow MD Referring Provider Active Start: March 22, 2025 End: March 22, 2025 Team Status: Active Member Role Status Dates PERLA Nick Attending Provider Active Start: March 24, 2025 PERLA Nick Referring Provider Active Start: March 24, 2025 Dr. Dennis Chow MD Primary Care Provider Active Start: March 24, 2025 Team Status: Inactive Member Role Status Dates Rachel M Rufener , ORGAN TEACHER-C Attending Provider Active Start: March 24, 2025 End: March 24, 2025 Rachel Madden NP-C Referring Provider Active Start: March 24, 2025 End: March 24, 2025 Dr. Dennis Chow MD Primary Care Provider Active Start: March 24, 2025 End: March 24, 2025 Team Status: Active Member Role Status Dates Dr. Dennis Chow MD Primary Care Provider Active Start: March 28, 2025 Rachel Madden NP-C Attending Provider Active Start: March 28, 2025 Rachel Madden NP-C Referring Provider Active Start: March 28, 2025 Team Status: Inactive Member Role Status Dates Dr. Dennis Chow MD Primary Care Provider Active Start: March 28, 2025 End: March 28, 2025 Rachel Madden NP-C Attending Provider Active Start: March 28, 2025 End: March 28, 2025 Rachel Madden NP-C Referring Provider Active Start: March 28, 2025 End: March 28, 2025 Team Status: Active Member Role Status Dates Dr. Dennis Chow MD Primary Care Provider Active Start: March 31, 2025 Dr. Dennis Chow MD Attending Provider Active Start: March 31, 2025 Dr. Dennis Chow MD Referring Provider Active Start: March 31, 2025 Team Status: Active Member Role Status Dates Dr. Dennis Chow MD Primary Care Provider Active Start: April 04, 2025 Rachel Madden NP-C Referring Provider Active Start: April 04, 2025 GENO NikcC Other Provider Active St art: April 04, 2025 Dr. Mitch Ruiz DO Attending Provider Active S tart: April 04, 2025 Team Status: Inactive Member Role Status Dates No Primary Care Physician Referring Provider Active Start: April 06, 2025 End: April 06, 2025 Rachel Madden NP-C Attending Provider Active Start: April 06, 2025 End: April 06, 2025 Dr. Dennis Chow MD Primary Care Provider Active Start: April 06, 2025 End: April 06, 2025 Team Status: Inactive Member Role Status Dates Dr. Dennis Chow MD Primary Care Provider Active Start: March 31, 2025 End: March 31, 2025 Dr. Dennis Chow MD Attending Provider Active Start: March 31, 2025 End: March 31, 2025 Dr. Dennis Chow MD Referring Provider Active Start: March 31, 2025 End: March 31, 2025 Team Status: Inactive Member Role Status Dates Dr. Dennis Chow MD Primary Care Provider Active Start: April 07, 2025 End: April 07, 2025 Dr. Dennis Chow MD Referring Provider Active Start: April 07, 2025 End: April 07, 2025 LAZARO Garcia Attending Provider Active Start: April 07, 2025 End: April 07, 2025 Medical Anthropologist Relationship Specialty Start Date End Date Dennis Chow MD [address] [facility] [place] [address] PCP - General Internal Medicine 02/18/25 Barbie Ruiz MD [address] [place] [address] Pulmonary and Critical Care Medicine 10/14/23 02/17/25 Sahra Moreno APRN.CNP [address] [place] [address] Family Medicine 12/17/24 02/17/25 Rachel Madden CNP [address] [place] [address] Family Medicine 02/18/25 Team Status: Active Member Role/Relationship Status Dates Dr. Dennis Chow MD Primary Care Provider Active Team Status: Inactive Member Role/Relationship Status Dates Dr. Jake Raymond MD Referring Provider Active Start: February 02, 2025 End: February 02, 2025 PERLA Nick Attending Provider Active Start: February 02, 2025 End: February 02, 2025 No Primary Care Physician Primary Care Provider Active Start: February 02, 2025 End: February 02, 2025 Team Status: Inactive Member Role/Relationship Status Dates No Primary Care Physician Primary Care Provider Active Start: March 09, 2025 End: March 09, 2025 No Primary Care Physician Referring Provider Active Start: March 09, 2025 End: March 09, 2025 Dr. Pernell Philippe DO Attending Provider Active Start: March 09, 2025 End: March 09, 2025 Team Status: Active Member Role/Relationship Status Dates No Primary Care Physician Primary Care Provider Active Start: March 09, 2025 No Primary Care Physician Referring Provider Active Start: March 09, 2025 Dr. Pernell Philippe DO Attending Provider Active Start: March 09, 2025 Dr. Pernell Philippe DO Other Provider Active St art: March 09, 2025 Team Status: Inactive Member Role/Relationship Status Dates No Primary Care Physician Primary Care Provider Active Start: March 16, 2025 End: March 16, 2025 No Primary Care Physician Referring Provider Active Start: March 16, 2025 End: March 16, 2025 Dr. Dennis Chow MD Attending Provider Active Start: March 16, 2025 End: March 16, 2025 Team Status: Inactive Member Role/Relationship Status Dates PERLA Nick Attending Provider Active Start: March 17, 2025 End: March 17, 2025 PERLA Nick Referring Provider Active Start: March 17, 2025 End: March 17, 2025 Dr. Dennis Chow MD Primary Care Provider Active Start: March 17, 2025 End: March 17, 2025 Team Status: Inactive Member Role/Relationship Status Dates Dr. Dennis Chow MD Primary Care Provider Active Start: March 22, 2025 End: March 22, 2025 Dr. Dennis Chow MD Attending Provider Active Start: March 22, 2025 End: March 22, 2025 Dr. Dennis Chow MD Referring Provider Active Start: March 22, 2025 End: March 22, 2025 Team Status: Inactive Member Role/Relationship Status Dates PERLA Nick Attending Provider Active Start: March 24, 2025 End: March 24, 2025 Rachel Madden NP-B[place] Referring Provider Active Start: March 24, 2025 End: March 24, 2025 Dr. Dennis Chow MD Primary Care Provider Active Start: March 24, 2025 End: March 24, 2025 Team Status: Active Member Role/Relationship Status Dates Dr. Dennis Chow MD Primary Care Provider Active Start: March 24, 2025 Dr. Mitch Ruiz , Attending Provider Active S tart: March 24, 2025 Rachel Madden NP-C Referring Provider Active Start: March 24, 2025 Team Status: Inactive Member Role/Relationship Status Dates Dr. Dennis Chow MD Primary Care Provider Active Start: March 28, 2025 End: March 28, 2025 Rachel Madden NP-C Attending Provider Active Start: March 28, 2025 End: March 28, 2025 Rachel Madden NP-C Referring Provider Active Start: March 28, 2025 End: March 28, 2025 Team Status: Inactive Member Role/Relationship Status Dates Dr. Dennis Chow MD Primary Care Provider Active Start: March 31, 2025 End: March 31, 2025 Dr. Dennis Chow MD Attending Provider Active Start: March 31, 2025 End: March 31, 2025 Dr. Dennis Chow MD Referring Provider Active Start: March 31, 2025 End: March 31, 2025 Team Status: Active Member Role/Relationship Status Dates Dr. Dennis Chow MD Primary Care Provider Active Start: April 04, 2025 Rachel Madden NP-[place] Referring Provider Active Start: April 04, 2025 PERLA Nick Other Provider Active St art: April 04, 2025 Dr. Mitch Ruiz , Attending Provider Active S tart: April 04, 2025 Team Status: Inactive Member Role/Relationship Status Dates No Primary Care Physician Referring Provider Active Start: April 06, 2025 End: April 06, 2025 PERLA Nick Attending Provider Active Start: April 06, 2025 End: April 06, 2025 Dr. Dennis Chow MD Primary Care Provider Active Start: April 06, 2025 End: April 06, 2025 Team Status: Inactive Member Role/Relationship Status Dates Dr. Dennis Chow MD Primary Care Provider Active Start: April 07, 2025 End: April 07, 2025 Dr. Dennis Chow MD Referring Provider Active Start: April 07, 2025 End: April 07, 2025 LAZARO Garcia Attending Provider Active Start: April 07, 2025 End: April 07, 2025 Team Status: Inactive Member Role/Relationship Status Dates Dr. Dennis Chow MD Primary Care Provider Active Start: May 16, 2025 End: May 16, 2025 Dr. Dennis Chow MD Referring Provider Active Start: May 16, 2025 End: May 16, 2025 Dr. Dao Luciano MD Attending Provider Active Start: May 16, 2025 End: May 16, 2025 Team Status: Inactive Member Role/Relationship Status Dates No Primary Care Physician Primary Care Provider Active Start: March 09, 2025 End: March 09, 2025 No Primary Care Physician Referring Provider Active Start: March 09, 2025 End: March 09, 2025 Dr. Pernell Philippe DO Attending Provider Active Start: March 09, 2025 End: March 09, 2025 Team Status: Active Member Role/Relationship Status Dates No Primary Care Physician Primary Care Provider Active Start: March 09, 2025 No Primary Care Physician Referring Provider Active Start: March 09, 2025 Dr. Pernell Philippe DO Attending Provider Active Start: March 09, 2025 Dr. Pernell Philippe DO Other Provider Active St art: March 09, 2025 Team Status: Inactive Member Role/Relationship Status Dates No Primary Care Physician Primary Care Provider Active Start: March 16, 2025 End: March 16, 2025 No Primary Care Physician Referring Provider Active Start: March 16, 2025 End: March 16, 2025 Dr. Dennis Chow MD Attending Provider Active Start: March 16, 2025 End: March 16, 2025 Team Status: Inactive Member Role/Relationship Status Dates PERLA Nick Attending Provider Active Start: March 17, 2025 End: March 17, 2025 Rachel Madden NP-C Referring Provider Active Start: March 17, 2025 End: March 17, 2025 Dr. Dennis Chow MD Primary Care Provider Active Start: March 17, 2025 End: March 17, 2025 Team Status: Inactive Member Role/Relationship Status Dates Dr. Dennis Chow MD Primary Care Provider Active Start: March 22, 2025 End: March 22, 2025 Dr. Dennis Chow MD Attending Provider Active Start: March 22, 2025 End: March 22, 2025 Dr. Dennis Chow MD Referring Provider Active Start: March 22, 2025 End: March 22, 2025 Team Status: Inactive Member Role/Relationship Status Dates Rachel Madden NP-C Attending Provider Active Start: March 24, 2025 End: March 24, 2025 Rachel Madden NP-C Referring Provider Active Start: March 24, 2025 End: March 24, 2025 Dr. Dennis Chow MD Primary Care Provider Active Start: March 24, 2025 End: March 24, 2025 Team Status: Active Member Role/Relationship Status Dates Dr. Dennis Chow MD Primary Care Provider Active Start: March 24, 2025 Dr. Mitch Ruiz DO Attending Provider Active S tart: March 24, 2025 Rachel Madedn NP-C Referring Provider Active Start: March 24, 2025 Team Status: Inactive Member Role/Relationship Status Dates Dr. Dennis Chow MD Primary Care Provider Active Start: March 28, 2025 End: March 28, 2025 Rachel Madden NP-C Attending Provider Active Start: March 28, 2025 End: March 28, 2025 Rachel Madden NP-C Referring Provider Active Start: March 28, 2025 End: March 28, 2025 Team Status: Inactive Member Role/Relationship Status Dates Dr. Dennis Chow MD Primary Care Provider Active Start: March 31, 2025 End: March 31, 2025 Dr. Dennis Chow MD Attending Provider Active Start: March 31, 2025 End: March 31, 2025 Dr. Dennis Chow MD Referring Provider Active Start: March 31, 2025 End: March 31, 2025 Team Status: Active Member Role/Relationship Status Dates Dr. Dennis Chow MD Primary Care Provider Active Start: April 04, 2025 PERLA Nick Referring Provider Active Start: April 04, 2025 PERLA Nick Other Provider Active St art: April 04, 2025 Dr. Mitch Ruiz DO Attending Provider Active S tart: April 04, 2025 Team Status: Inactive Member Role/Relationship Status Dates No Primary Care Physician Referring Provider Active Start: April 06, 2025 End: April 06, 2025 PERLA Nick Attending Provider Active Start: April 06, 2025 End: April 06, 2025 Dr. Dennis Chow MD Primary Care Provider Active Start: April 06, 2025 End: April 06, 2025 Team Status: Inactive Member Role/Relationship Status Dates Dr. Dennis Chow MD Primary Care Provider Active Start: April 07, 2025 End: April 07, 2025 Dr. Dennis Chow MD Referring Provider Active Start: April 07, 2025 End: April 07, 2025 LAZARO Garcia Attending Provider Active Start: April 07, 2025 End: April 07, 2025 Team Status: Inactive Member Role/Relationship Status Dates Dr. Dennis Chow MD Primary Care Provider Active Start: May 16, 2025 End: May 16, 2025 Dr. Dennis Chow MD Referring Provider Active Start: May 16, 2025 End: May 16, 2025 Dr. Dao [place] MD Attending Provider Active Start: May 16, 2025 End: May 16, 2025 Team Status: Active Member Role/Relationship Status Dates Dr. Dennis Chow MD Primary Care Provider Active Start: May 21, 2025 Dr. Dao Luc[place] MD Attending Provider Active Start: May 21, 2025 Dr. Dao Luciano MD Referring Provider Active Start: May 21, 2025 Team Status: Inactive Member Role/Relationship Status Dates Dr. Dennis Chow MD Primary Care Provider Active Start: June 07, 2025 End: June 07, 2025 Dr. Dennis Chow MD Referring Provider Active Start: June 07, 2025 End: June 07, 2025 BIM NURSE Attending Provider Active Start: 2024 End: June 07, 2025 Goals (unrecognized section and content) Goals may be documented in a n alternate sectionGoals may be documented in an alternate sectionGoals may be documented in an alternate sectionGoals may be documented in an alternate section No data available for this section No data available for this sectionGoals may be documented in an alternate sectionGoals may be documented in an alternate section FOR RECORDS PERTAINING TO PATIENTS WHO ARE [...] BE BASED ON THE PRIMARY CLINICAL RECORDS. [facility] [employer] [facility]. provides no warranty or guarantee of the accuracy or completeness of information in this document.
--- NOTE | 2025-06-10 17:52 | STRESSREP ---
Stress Test Report Pharmacologic myocardial perfusion stress test. 69-year-old lady with a history of chest pain Resting EKG demonstrates sinus rhythm with a rate of 61 bpm. Resting blood pressure is 140/70 mmHg. 0.4 mg of regadenoson was infused per usual protocol followed by rapid intravenous saline flush injection. Continuous EKG monitoring was performed. The maximum heart rate was 110 bpm which was 71% of max impacted heart rate the maximum workload was 1 metabolic equivalent. At rest there were no ST or T wave changes noted to suggest ischemia and at peak infusion nonspecific ST changes were noted which did not meet the criteria for ischemia. No clinical angina is noted. The final blood pressure was 142/70 mmHg. Myocardial perfusion protocol. 11.7 mCi of technetium 99m sestamibi was injected at rest. 0.4 mg of regadenoson was infused per usual protocol. At peak infusion 32.9 mCi of technetium 99m sestamibi was injected stress images were obtained stress and rest images were reconstructed and compared in the short axis vertical long and horizontal long axis. Gated images were also obtained. Perfusion SPECT analysis: Review of the stress images demonstrate normal uptake of tracer noted in all areas of the myocardium. The resting images similar demonstrated normal uptake of tracer noted in all areas of the myocardium. No areas of reversibility are noted to suggest ischemia and no previous infarct is noted. Gated SPECT analysis: The gated ejection fraction is 87%. Conclusion: Normal pharmacologic myocardial perfusion stress test. Preserved ejection fraction.
== END | disposition home or self-care (01) ==
LOC: CVS 06:00
PROVIDERS: PCP Internal Medicine; Referring Provider Internal Medicine Cardiovascular Disease; Visit Provider Internal Medicine Cardiovascular Disease
DX: R07.9 Chest pain, unspecified (principal); R00.2 Palpitations
CPT/HCPCS: 78452; 93017; 93306; A9500; A4216; J2785

== ENCOUNTER → 2025-06-21 | Outpatient (CLI) | payer MEDICARE, MEDICAID, SELFPAY | END | disposition home or self-care (01) | LOC: LABSPEC 16:12 | PROVIDERS: PCP Internal Medicine; Visit Provider Nurse Practitioner Women's Health | DX: N94.89 Other specified conditions associated with female genital organs and menstrual cycle (principal) | CPT/HCPCS: 87070; 87205 ==

== ENCOUNTER → 2025-07-08 | Outpatient (CLI) | payer MEDICARE, MEDICAID, SELFPAY ==
--- NOTE | 2025-07-08 14:45 | BI_ITS ---
EXAM: SCRN MAMM (CAD)W/MIGUEL BILAT DATE: 07/08/2025 CLINICAL HISTORY: F, Age 69 y/o , SCREENING TECHNIQUE: Procedure Code: [id number] Modality: MG Procedure: SCRN MAMM (CAD)W/MIGUEL BILAT COMPARISON: Prior exam(s) dated outside facility dated July 02, 2024.. FINDINGS: TISSUE DENSITY: The breasts are almost entirely fatty. Bilateral Breast Mammographic Findings: No significant masses, calcifications or other abnormalities are identified. Stable tiny calcified nodule in the upper lateral aspect of the left breast. No suspicious masses, areas of developing architectural distortion, or suspicious calcifications. There has been no significant interval change. BI/SCRN MAMM (CAD)W/MIGUEL BILAT IMPRESSION: Stable screening bilateral mammogram. OVERALL FINAL ASSESSMENT BI-RADS 2: BENIGN RECOMMENDATION: Routine annual follow-up in 1 Year A letter with findings and recommendations will be mailed to the patient. Reading Location: [facility]
== END | disposition home or self-care (01) ==
LOC: OPBI 14:10
PROVIDERS: PCP Internal Medicine; Referring Provider Internal Medicine; Visit Provider Internal Medicine
DX: Z12.31 Encounter for screening mammogram for malignant neoplasm of breast (principal)
CPT/HCPCS: 77063; 77067

== ENCOUNTER → 2025-07-14 | Outpatient (CLI) | payer MEDICARE, MEDICAID, SELFPAY ==
[2025-07-14 14:04] LABS: Creatinine, Urine (random) 60.60 mg/dL (28.00-217.00); Microalbumin,Random Urine 98.9 mg/L (<20 mg/L)
[2025-07-14 14:26] LABS: Cholesterol 275 mg/dL (<=200); Low Density Lipoprotein Calc. 175 mg/dL; Triglycerides 206 mg/dL; Very Low Density Lipoprotein 41 mg/dL (5-40); Vitamin B12 260 pg/mL (180-914); Vitamin D,25 Hydroxy 38.7 ng/mL (30-100); cholesterol:hdl ratio screen 4.68
== END | disposition home or self-care (01) ==
LOC: LAB 12:49
PROVIDERS: PCP Internal Medicine; Visit Provider Internal Medicine
DX: E11.42 Type 2 diabetes mellitus with diabetic polyneuropathy (principal); E55.9 Vitamin D deficiency, unspecified; E04.1 Nontoxic single thyroid nodule
CPT/HCPCS: 36415; 80061; 82043; 82306; 82570; 82607; 84443

== ENCOUNTER 2025-07-20 12:52 | Outpatient (RCR) | payer MEDICARE, MEDICAID, SELFPAY ==
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
--- NOTE | 2025-08-16 15:59 | HP.PT.NRP ---
Patient Information Patient Information: BRIDGER PRASAD was seen in my office for initial evaluation on 07/20/25. The following Plan of Care was established for this patient: POC Established Initial Frequency: 2x /Week Initial Duration: 4-6 Weeks Anticipated Interventions Patient/Client Instruction: Educate patient on: Condition, Plan of Care and Risk Factors For the Purpose of:: To improve self management Therapeutic Exercise to Include: Strength training, Postural training, Flexibilty training, Neuromotor development, Passive ROM, Active ROM and Scapular Strength/Stabilization For the Purpose of:: To decrease pain, To increase ROM, To improve muscle performance and motor function, To improve ability to perform ADL's, To increase tolerance to activity/condition/position, To improve ability of physical actions for home/community/work/leisure, To increase flexibility/ROM and To improve self management Manual Therapy Techniques to Include: Mobilization and Soft tissue mobilization For the Purpose of:: To decrease pain, To improve muscle performance and motor function, To improve ability to perform ADL's, To increase tolerance to activity/condition/position, To improve ability of physical actions for home/community/work/leisure, To decrease soft tissue restriction and To increase flexibility/ROM Cryotherapy (ice pack, ice massage): Yes Thermo therapy (hot pack): Yes For the Purpose of:: To decrease pain, To decrease swelling/inflammation and To improve nutrient delivery to tissue Last Seen Last Seen: This patient was last seen in our office 07/21/25. Pertinent comments regarding their Physical therapy will appear below: It has been my pleasure to see this patient for a total of 1 visit (Initial Eval). This patient has not returned to Physical Therapy for more visits and is appropriate to return to MD for further follow-up as needed. At this point I will be discontinuing this patient from physical therapy. I would be happy to see this patient again in the future if found appropriate by the physician. Thank you! Alysia Lewis, PT, Cert MDT Balance/Gait/Functional tests Balance/Special Test Scores Quick DASH Score: 50.0000
== END 2025-07-20 19:00 | disposition home or self-care (01) ==
LOC: PT 12:52
PROVIDERS: PCP Internal Medicine; Referring Provider Orthopaedic Surgery Sports Medicine; Visit Provider Orthopaedic Surgery Sports Medicine
DX: M25.511 Pain in right shoulder (principal); M25.512 Pain in left shoulder
CPT/HCPCS: 97162; 97530

== ENCOUNTER → 2025-07-20 | Outpatient (CLI) | payer MEDICARE, MEDICAID, SELFPAY | END | disposition home or self-care (01) | LOC: LABSPEC 10:51 | PROVIDERS: PCP Internal Medicine; Referring Provider Nurse Practitioner Women's Health; Visit Provider Nurse Practitioner Women's Health | DX: N89.8 Other specified noninflammatory disorders of vagina (principal) | CPT/HCPCS: 87070; 87205 ==

== ENCOUNTER → 2025-07-28 | Outpatient (CLI) | payer MEDICARE, MEDICAID, SELFPAY ==
--- NOTE | 2025-07-28 14:44 | RAD_ITS ---
PROCEDURE: CHEST PA AND LATERAL 07/28/2025 REASON FOR EXAM: SORE THROAT, SOB TECHNIQUE: Procedure Code: RADCXR Modality: DX Procedure: CHEST PA AND LATERAL COMPARISON: 03/17/2025 FINDINGS: Multilevel spondylosis. Degenerative changes through the spine. Cervical spondylosis. Heart mediastinum are normal. Lungs are clear. No focal consolidation evident. Degenerative changes of the acromioclavicular joint is noted bilaterally. No pneumothorax. In moderate amount of stool in the colon RAD/Chest PA and Lateral IMPRESSION: No acute cardiopulmonary process. No significant change. Reading Location: [id number]
[2025-07-28 17:40] LABS: Hematocrit 36.0 % (37-47); Hemoglobin 12.1 g/dL (12.0-15.0); Immature Granulocytes Count 0.020 X10^3/uL (0.0-0.0); Mean Corp Hgb Conc 33.6 g/dL (32-36); Mean Corpuscular Volume 84.5 fL (81-99); Mean Platelet Vol. 9.6 fl (6.2-12.0); NRBC Flagged by Analyzer 0 % (0-5); Platelet Count 318 K/mm3 (150-450); RBC Distribution Width CV 14.5 % (11.6-14.6); RBC Distribution Width SD 44.4 fl (35.1-43.9); Red Blood Count 4.26 M/mm3 (4.2-5.4); White Blood Count 8.8 K/mm3 (4.4-11.0)
[2025-07-28 18:15] LABS: AST(SGOT) 18 U/L (<=31); Alanine Aminotransfer ALT/SGPT 14 U/L (<=34); Albumin, Serum 4.5 g/dL (3.4-4.8); Alkaline Phosphatase 19 U/L (35-104); Anion Gap 15 (5-15); BUN 8 mg/dL (4-19); BUN/Creat Ratio 10.0 RATIO (10-20); Calcium,Total 9.0 mg/dL (7.6-11.0); Carbon Dioxide 20.1 mmol/L (21.0-32.0); Chloride 94 mmol/L (98-108); Globulin 3.3 g/dL (2.2-4.2); Glucose 73 mg/dL (70-99); Potassium 4.4 mmol/L (3.3-5.1)
== END | disposition home or self-care (01) ==
PROVIDERS: PCP Internal Medicine; Referring Provider Nurse Practitioner Family; Visit Provider Nurse Practitioner Family
DX: Z01.818 Encounter for other preprocedural examination (principal); R07.9 Chest pain, unspecified; R06.02 Shortness of breath
CPT/HCPCS: 36415; 71046; 80053; 85025

== ENCOUNTER 2025-08-13 00:32 | Emergency (ER) | payer MEDICARE, MEDICAID, SELFPAY ==
[2025-08-13 00:34] VITALS: BP 170/75; PULSE 68; RESP 16; TEMP 36.7; O2SAT 100; BMI 53.4
--- NOTE | 2025-08-13 00:52 | EKG12_ITS ---
Test Reason : CP Blood Pressure : */* mmHG Vent. Rate : 72 BPM Atrial Rate : 72 BPM P-R Int : 174 ms QRS Dur : 82 ms QT Int : 410 ms P-R-T Axes : 80 61 68 degrees QTcB Int : 448 ms Normal sinus rhythm Normal ECG Confirmed by EMILE HOLGUIN, SANG ([id number]), commissioning editor ALFREDO LEE ([id number]) on 08/15/2025 6:31:19 AM Referred By: BB Confirmed By: SANG BAPTISTE MD
--- NOTE | 2025-08-13 00:52 | CT_ITS ---
PROCEDURE: ABDOMEN/PELVIS W IV CONT ONLY 08/13/2025 REASON FOR EXAM: LEFT SIDED ABD PAIN/TEND TECHNIQUE: Procedure Code: [id number] Modality: CT Procedure: ABDOMEN/PELVIS W IV CONT ONLY Coronal and Sagittal reconstruction series were provided. CONTRAST: OMNIPAQUE 350 VOLUME: 100 mL One or more dose reduction techniques were used (e.g., Automated exposure control, adjustment of the mA and/or kV according to patient size, use of iterative reconstruction technique. RADIATION DOSE SUMMARY: CTDlvol: 13.2 mGy DLP: 520 mGycm COMPARISON: CT scan on 08/12/2019. FINDINGS: Prior hysterectomy. Diffuse colonic diverticulosis. Diffuse thickening of the colon suggestive of colitis without perforation or pneumatosis coli. Left renal simple cyst measuring 1.5 cm. Prior cholecystectomy. Calcified atheromatous plaques of the aorta and iliac arteries. Mild osteopenia. Moderate diffuse spondylosis. Small sliding hiatal hernia. Diffuse thickening of the stomach suggestive of gastritis. Mild hepatic steatosis. The visualized lung bases are unremarkable. Normal extrahepatic biliary system. Normal spleen. Normal pancreas. Normal bilateral adrenal glands. Normal size of the right kidney. There is no right renal mass. There are no right renal calculi. There is no right hydronephrosis. Normal visualized right ureter. Normal size of the left kidney. There is no left renal mass. There are no left renal calculi. There is no left hydronephrosis. Normal visualized left ureter. Normal visualized stomach. Normal small intestine. The appendix is not visualized. There is no demonstrated peritoneal fluid. Calcified atheromatous plaques of the abdominal aorta. Normal inferior vena cava. Normal retroperitoneum. Normal urinary bladder. There is no pelvic mass lesion or lymphadenopathy. There is no pelvic fluid. CT/Abdomen/Pelvis W IV Cont ONLY IMPRESSION: Prior hysterectomy. Diffuse colonic diverticulosis. Diffuse thickening of the colon suggestive of colitis without perforation or pn eumatosis coli. Left renal simple cyst measuring 1.5 cm. Prior cholecystectomy. Calcified atheromatous plaques of the aorta and iliac arteries. Mild osteopenia. Moderate diffuse spondylosis. Small sliding hiatal hernia. Diffuse thickening of the stomach suggestive of gastritis. Mild hepatic steatosis. Reading Location: [place] [id number]
--- NOTE | 2025-08-13 00:54 | EDS_ITS ---
HPI History of Present Illness Chief Complaint: Chest Pain Informant: patient and EMS Narrative Narrative: Patient is a 70-year-old female with no significant PMHx presenting with chest pain, lightheadedness, and abdominal pain. - Reports episodes of chest pain and lightheadedness, with the chest pain preceding the lightheadedness. Tonight, started with chest discomfort about 3 hrs ago, followed by lightheadedness and the sensation that her heart rate was too slow. - Describes sensation of heart beating too slow and racing at times; usually feels heart beating fast enough to notice, but tonight felt it slowed way down. - Checked BP tonight when feeling poorly, which was 78 and her HR was 72 bpm. - Denies dyspnea or emesis since onset of symptoms tonight. - Has been experiencing frequent emesis over the past 3 weeks, with difficulty keeping food down but able to maintain fluid intake. - Yesterday, while sitting on the toilet, left-sided abdominal pain began, described as feeling like it was a rock, then passed out and woke up on the floor without apparent injury; denies straining for a bowel movement at that time. - Reports intermittent lower abdominal pain, primarily on the left side, for the past 3 weeks, often associated with emesis and sensations of heart skipping a beat. - Only episode of syncope occurred yesterday. - Denies hematochezia or melena. - Recently underwent a screening echocardiogram, which was reportedly normal. [facility] Medical History Right shoulder pain Left shoulder pain Vaginal atrophy Nocturia Urgency of urination Frequency of micturition Chest pain Diabetes HLD (hyperlipidemia) Osteopenia Monoclonal gammopathy Thyroid nodule Nonhealing surgical wound Ulcer of left lower extremity with fat layer exposed Wears glasses Cancer Fatty liver High cholesterol Restless legs Syncope History of hiatal hernia History of diverticulitis Smoker History of stress test Dysphagia Depression Anxiety Home Medications ?Medication ?Instructions ?Recorded ?Last Taken ?Type famotidine 20 mg tablet 20 mg PO QDAY 11/08/2403/08 History fluticasone 250 mcg-salmeterol 50 1 inh inhalation BID 11/08/24 03/05/25 History mcg/dose blistr powdr for inhalation aspirin 81 mg tablet,delayed 81 mg PO QDAY 02/02/25 History release (Adult Low Dose Aspirin) clobetasol 0.05 % topical cream 1 g topical QDAY PRN r smooth #15 grams 03/16/25 Unknown Rx cholecalciferol (vitamin D3) 25 1,000 unit PO DAILY #9 0 caps 04/26/25 Unknown Rx mcg (1,000 unit) capsule trazodone 100 mg tablet 100 mg PO QHS sleep #90 tabs 04/26/25 Unknown Rx pantoprazole 40 mg tablet,delayed 40 mg PO QDAY #90 ta bs 05/09/25 Unknown Rx release denosumab 60 mg/mL subcutaneous 60 mg subcut [id number] #1 mL 05/24/25 Unknown Rx syringe (Prolia) blood sugar diagnostic (Accu-Chek #100 ea 06/27/25 Unk nown Rx Guide test strips) blood-glucose meter (Accu-Chek #1 ea 06/27/25 Unknown Rx Guide Glucose Meter) lancets (Accu-Chek Softclix #200 ea 06/27/25 Unknown R x Lancets) coenzyme Q10 100 mg capsule (Co 200 mg (2 x 100 mg) PO DAILY 07/28/25 Unknown Rx Q-10) supplement #180 caps furosemide 20 mg tablet 20 mg PO DAILY #90 tabs 07/11 07/04 Unknown Rx meloxicam 15 mg tablet 15 mg PO QDAY #90 tabs 07/28 Unknown Rx montelukast 10 mg tablet 10 mg PO QHS allergies #90 t abs 07/28/25 Unknown Rx atorvastatin 10 mg tablet (Lipitor) 10 mg PO QHS #30 t abs 08/11/25 Unknown Rx dulaglutide 1.5 mg/0.5 mL 1.5 mg (0.5 mL) subcut QWEEK #2 mL 08/11/25 Unknown Rx subcutaneous pen injector lisinopril 2.5 mg tablet 2.5 mg PO QDAY #30 tabs 01/04 Unknown Rx metformin 500 mg tablet 500 mg PO BID #180 tabs 01/04 Unknown Rx ondansetron 8 mg disintegrating 8 mg PO Q8H PRN nausea and 08/13/25 Unknown Rx tablet vomiting #20 tabs Allergy/AdvReac Type Severity Reaction Status Date / Time ciprofloxacin HCl (From Allergy Rash Verified 08/13/25 00:38 Cipro) clindamycin Allergy throat Verified 08/13/25 00:38 swelling-see comment section fluoxetine HCl (From Prozac) Allergy Rash Verified 08/13/25 00:38 metronidazole Allergy Anaphylaxis Verified 08/13/25 00:38 Penicillins Allergy Rash Verified 08/13/25 00:38 Sulfa (Sulfonamide Allergy Rash Verified 08/13/25 00:38 Antibiotics) adhesive AdvReac redness Verified 08/13/25 00:38 with bandaids amoxicillin trihydrate (From AdvReac thrush/yeast Verified 08/13/25 00:38 Augmentin) infection potassium clavulanate (From AdvReac thrush/yeast Verified 08/13/25 00:38 Augmentin) infection rosuvastatin AdvReac Diarrhea Verified 08/13/25 00:38 Family History Sister Colon polyps Hypertension Asthma Depression Melanoma Thyroid disorder Brother Colon polyps Parkinson disease Myocardial infarction Heart disease Mother Colon polyps Colon cancer COPD (chronic obstructive pulmonary disease) Arthritis Father Colon polyps Heart disease Myocardial infarction Grandmother Alcoholism Grandfather Diabetes Surgical History History of bladder surgery H/O cataract extraction S/P thyroid biopsy Hx of squamous cell carcinoma excision History of excision of mass (10/13/17) History of esophagogastroduodenoscopy (EGD) History of colonoscopy History of tonsillectomy History of cholecystectomy History of fusion of cervical spine (~2003) H/O: hysterectomy Social History adopted: No household members: none number of children: 3 current occupational 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 [employer] pets and animals: No Smoking Status: Current every day smoker tobacco type: cigarettes quit status: not considering quitting alcohol intake: never substance use type: does not use caffeine: Yes seatbelt use: always do you feel safe at home: Yes ROS ROS ED Constitutional Constitutional ED: Denies chills or fever(s) Eyes Eyes: Denies change in vision or diplopia ENT ENT ED: Denies rhinorrhea or sore throat Cardiovascular Cardiovascular: Reports as per HPI, chest pain, fatigue, lightheadedness, palpitations, racing heartbeat and syncope; Denies leg edema or radiating jaw, neck or arm pain Respiratory/Chest Respiratory/Chest: Denies cough or dyspnea Gastrointestinal Gastrointestinal: Reports abdominal pain, nausea and vomiting; Denies diarrhea Genitourinary Genitourinary ED: Denies dysuria or hematuria Musculoskeletal Musculoskeletal: Denies back pain or neck pain Integumentary Denies abscess or rash Neurologic Neurologic: Denies headache(s), paresthesias or weakness Psychiatric Psychiatric: Denies anxiety or suicidal thoughts EXAM Physical Exam Const Vital Signs: 08/13/25 00:34 08/13/25 00:44 08/13/25 00:57 Temperature 98.1 F Temperature Source Oral Pulse Rate 68 Respiratory Rate 16 Respiratory Pattern Normal Blood Pressure 170/75 H Blood Pressure Mean 106 Pulse Ox 100 Oxygen Delivery Method Room Air Room Air 08/13/25 02:09 08/13/25 03:08 08/13/25 04:05 Temperature Temperature Source Pulse Rate 68 68 59 L Respiratory Rate 16 16 18 Respiratory Pattern Blood Pressure 125/62 H 132/79 H 110/59 L Blood Pressure Mean 83 96 76 Pulse Ox 98 98 98 Oxygen Delivery Method Room Air Room Air Room Air 08/13/25 05:12 Temperature Temperature Source Pulse Rate 68 Respiratory Rate 16 Respiratory Pattern Blood Pressure 114/65 Blood Pressure Mean 81 Pulse Ox 98 Oxygen Delivery Method Room Air Positive well nourished and well developed General Appearance ED: well developed and NAD HEENT Reports moist mucous membranes normocephalic and atraumatic Eyes PERRL and EOMs intact bilaterally Neck full ROM and supple Resp normal respiratory effort and clear to auscultation bilaterally Cardio regular rate, regular rhythm and no murmurs Rate: Negative for bradycardia or tachycardic GI non-distended GI Narrative: Tender throughout left side worse in the left lower quadrant no guarding rebound no pulsatile mass no Noman sign no Leach Richardson sign. Auscultation: normoactive bowel sounds Palpation: soft Back/Spine no CVA tenderness General Back: other FROM Extremity normal to inspection General Extremety ED: Negative for edema, pulses abnormal or tenderness General Extremity: Negative for edema or pulses abnormal Neuro oriented x3, CN's II-XII intact bilaterally and no sensory deficits noted Sensorium / Orientation: awake and alert Motor Exam: strength 5/5 throughout Psych mental status grossly normal Skin no rashes or lesions noted and no wounds Heart Score History: Slightly/Non-Suspicious ECG: Normal Age: >/= 65 years Risk Factors: >/= 3 Risk Factors or History of CAD Troponin: </= Normal Limit Score: 4 MDM MDM MDM Narrative Medical decision making narrative: Assessment: The patient is a 70-year-old female presenting for episodic chest discomfort followed by lightheadedness, recurrent morning emesis, and intermittent left lower quadrant abdominal pain. Her EKG obtained on arrival is 100% normal. Serial troponins trended 8 - 11 - 8; in the setting of a normal EKG this effectively rules out acute coronary syndrome. CT abdomen/pelvis demonstrates diffuse gastric wall thickening consistent with gastritis, diffuse colonic wall thickening suggestive of colitis, diffuse colonic diverticulosis without diverticulitis, and a small sliding hiatal hernia. Chest discomfort is likely gastrointestinal in origin. The single transient syncopal episode yesterday is best explained by a vasovagal mechanism. Plan: - IV crystalloid bolus administered in the ED. - IV Zofran given; prescription for outpatient use provided. - Small dose IV morphine given for abdominal pain. - Continue home pantoprazole. - We discussed possible empiric antibiotics for the colitis which is of unknown etiology, she declined saying that she has lots of reactions to antibiotics and prefers not to try this. - Discharged home in improved and stable condition with instructions to follow up with primary care. Diagnostics: - EKG interpreted: normal sinus rhythm; no acute ST-T changes. Independently interpreted by me, Carlos Jorgensen. - Labs: serial troponins 8 ng/L ? 11 ng/L ? 8 ng/L. - Chest X-ray (one view): no acute abnormalities. - CT abdomen/pelvis: diffuse gastric wall thickening (gastritis); diffuse colonic wall thickening (colitis); diffuse colonic diverticulosis without diverticulitis; small sliding hiatal hernia; no perforation or pneumatosis. Reevaluations: - Reexamined after treatment: chest discomfort resolved, abdominal pain improved, tolerating oral fluids. Lab Data Attestation: I reviewed the patient's lab results. Labs: Laboratory Results - last 24 hr 08/13/25 08/13/25 08/13/25 00:43 02:39 04:39 WBC 9.2 RBC 4.36 Hgb 12.4 Hct 36.4 L MCV 83.5 MCH 28.4 MCHC 34.1 RDW Std Deviation 45.1 H RDW Coeff of Mary 14.7 H Plt Count 302 MPV 9.0 Immature Gran % (Auto) 0.300 Neut % (Auto) 45.5 L Lymph % (Auto) 47.5 H [place] % (Auto) 5.9 Eos % (Auto) 0.5 Baso % (Auto) 0.3 Absolute Neuts (auto) 4.2 Absolute Lymphs (auto) 4.37 Nucleated RBC % 0 APTT 26.0 Sodium 132 L Potassium 3.9 Chloride 94 L Carbon Dioxide 23.1 Anion Gap 14 BUN 9 Creatinine 0.66 L Estim Creat Clear Calc 84.96 Est GFR (MDRD) Non-Af 96 BUN/Creatinine Ratio 13.7 Glucose 104 H Calcium 9.4 Troponin T High Sens 8 Troponin T Hi Sens 2 Hr 11 Troponin T Hi Sens 4Hr 8 Labs: - Troponin: 8 ? 11 ? 8 Tests: - EKG: Normal Imaging: - CT of the abdomen and pelvis: Possible gastritis with diffuse thickening of the stomach, diffuse thickening of the colon suggesting colitis, diffuse colonic diverticulosis with no evidence of acute diverticulitis, and a small sliding hiatal hernia. Independently interpreted by Carlos mata. - One view chest x-ray: No acute abnormalities. Independently interpreted by Carlos mata. Radiography Diagnostic Testing: Clinical Impression(s) from Imaging Studies Abdomen/Pelvis CT 08/13/25 00:52 IMPRESSION: Prior hysterectomy. Diffuse colonic diverticulosis. Diffuse thickening of the colon suggestive of colitis without perforation or pneumatosis coli. Left renal simple cyst measuring 1.5 cm. Prior cholecystectomy. Calcified atheromatous plaques of the aorta and iliac arteries. Mild osteopenia. Moderate diffuse spondylosis. Small sliding hiatal hernia. Diffuse thickening of the stomach suggestive of gastritis. Mild hepatic steatosis. Reading Location: [place] [address] Chest X-Ray 08/13/25 01:25 IMPRESSION: Interval appearance of mild bilateral basilar atelectatic pulmonary changes. Reading Location: [place] [address] Rhythm Strip Rhythm Strip: Sinus Rhythm Rate: 72 Ectopy: None EKG Initial EKG: Attestation: I personally reviewed and interpreted this EKG as follows: Interpretation: Sinus Rhythm and No Acute Injury Pattern Comments: Nml axis & intervals; nml EKG Discharge Plan Triage Chief Complaint: Chest Pain ED Provider: Carlos Jorgensen Dx/Rx/DC Orders Clinical Impression: Gastritis, Colitis, Vasovagal syncope, Sliding hiatal hernia, Chest pain Instructions: Colitis, ED Chest Pain, Noncardiac Prescriptions: New ondansetron 8 mg tablet,disintegrating 8 mg PO Q8H PRN (Reason: nausea and vomiting) Qty: 20 0RF Continued aspirin [Adult Low Dose Aspirin] 81 mg tablet,delayed release (DR/EC) 81 mg PO QDAY famotidine 20 mg tablet 20 mg PO QDAY fluticasone propion-salmeterol 250-50 mcg/dose blister with device 1 inh inhalation BID clobetasol 0.05 % cream 1 g topical QDAY PRN (Reason: rash) Qty: 15 0RF (DME) blood-glucose meter [Accu-Chek Guide Glucose Meter] Misc See Rx Instructions .Route Qty: 1 0RF Rx Instructions: As directed (DME) Accu-Chek Guide test strips Strip See Rx Instructions .Route Qty: 100 0RF Rx Instructions: daily as needed (DME) lancets [Accu-Chek Softclix Lancets] Misc See Rx Instructions .Route Qty: 200 0RF Rx Instructions: daily as needed trazodone 100 mg tablet 100 mg PO QHS Qty: 90 0RF cholecalciferol (vitamin D3) 25 mcg (1,000 unit) capsule 1,000 unit PO DAILY Qty: 90 0RF pantoprazole 40 mg tablet,delayed release (DR/EC) 40 mg PO QDAY Qty: 90 3RF Prolia 60 mg/mL syringe 60 mg subcut [id number] Qty: 1 1RF meloxicam 15 mg tablet 15 mg PO QDAY Qty: 90 0RF furosemide 20 mg tablet 20 mg PO DAILY Qty: 90 0RF montelukast 10 mg tablet 10 mg PO QHS Qty: 90 0RF coenzyme Q10 [Co Q-10] 100 mg capsule 200 mg PO DAILY Qty: 180 0RF atorvastatin [Lipitor] 10 mg tablet 10 mg PO QHS Qty: 30 1RF dulaglutide 1.5 mg/0.5 mL pen injector 1.5 mg subcut QWEEK Qty: 2 1RF lisinopril 2.5 mg tablet 2.5 mg PO QDAY Qty: 30 1RF metformin 500 mg tablet 500 mg PO BID Qty: 180 0RF Discontinued ondansetron 4 mg tablet,disintegrating 4 mg PO Q8H PRN PRN (Reason: Nausea) Qty: 30 1RF Primary Care Provider: Cherry Chow Referrals: Cherry Chow MD [Primary Care Provider, Internal Medicine] Activity Restrictions/Additional Instructions: - Continue taking pantoprazole (proton pump inhibitor) as prescribed. - Take ondansetron (Zofran) for nausea as directed to help prevent vomiting. - Your EKG, sequential troponin checks, and chest X-ray were all normal, which rules out a heart attack. - CT scan of your abdomen and pelvis showed gastritis (stomach inflammation), colitis (colon inflammation), diffuse colonic diverticulosis, and a small sliding hiatal hernia; no acute diverticulitis. - These findings and your symptoms are most consistent with acid reflux and gastrointestinal inflammation. - Follow up with your doctor to review these results and adjust your treatment plan as needed. Print Language: Citizen [place] Disposition Disposition: Home, Self Care
[2025-08-13 01:03] LABS: Hematocrit 36.4 % (37-47); Hemoglobin 12.4 g/dL (12.0-15.0); Immature Granulocytes Count 0.030 X10^3/uL (0.0-0.0); Mean Corp Hgb Conc 34.1 g/dL (32-36); Mean Corpuscular Volume 83.5 fL (81-99); Mean Platelet Vol. 9.0 fl (6.2-12.0); NRBC Flagged by Analyzer 0 % (0-5); Platelet Count 302 K/mm3 (150-450); RBC Distribution Width CV 14.7 % (11.6-14.6); RBC Distribution Width SD 45.1 fl (35.1-43.9); Red Blood Count 4.36 M/mm3 (4.2-5.4); White Blood Count 9.2 K/mm3 (4.4-11.0)
--- OUTSIDE RECORDS SUMMARY | 2025-08-13 01:04 | XMS RPT_ITS | CCD ---
Author Organization [facility] CliniSynd Care Team Providers Care Slip Cover Operator Name Role Phone TISH ROBLES Unavailable Unavailable TISH ROBLES Unavailable Unavailable Clarice Petersen MD Primary Care Provider Clarice Petersen MD Primary Care Provider Clarice Petersen MD Primary Care Provider Clarice Petersen MD Primary Care Provider PODLOGARSAHRA Referring Unavailable CLARICE PETERSEN Primary Care Unavailable Carolina Mirza PA-C Primary Care Provider Barbie Ruiz MD Unavailable Jake Raymond MD Primary Care Provider BIMAL HOLGUIN, JAKE Primary Care Physician TAD HOLGUIN, CAESAR Attending Unavailable BIMAL HOLGUIN, JAKE Primary Care Unavailable TAD HOLGUIN, CAESAR Attending Unavailable JAKE RAYMOND MD Primary Care Unavailable Jake Raymond MD Primary Care Provider Hemanth Carranza MD Primary Care Provider Clarice Petersen MD Primary Care Provider Jake Raymond MD Primary Care Provider Podlogar ARCHITECTURAL REPRESENTATIVE.Sahra GARCIA Unavailable Alexus Machuca DO Primary Care Provider Dr. Juarez Harris MD Attending Provider Dr. Juarez Harris MD Referring Provider Alexus Machuca DO Referring Provider Dr. Pernell Philippe DO Attending Provider Care Physician, No Primary Primary Care Provider Unavailable Jose Martin ISSA, Dr. Gimenez Referring Provider Dennis Chow MD Primary Care Provider Rachel Madden CNP Unavailable Alexus Machuca DO Primary Care Provider Bimal HOLGUIN, Dr. Jake Juarez Referring Provider [phone] GRADER-C, Rachel Figueroa Attending Provider Care Physician, No Primary Referring Provider Un available Jose Martin ISSA, Dr. Gimenez Other Provider Claudine HOLGUIN, Dr. Carey Attending Provider Jose Alejandro RO[address] GRADER-C, Rachel Figueroa Referring Provider Claudine HOLGUIN, Dr. Carey Primary Care Provider Dr. Dennis Chow MD Referring Provider Jose Alejandro RO[address] GRADER-C, Rachel Figueroa Other Provider Dr. Mitch Ruiz DO Attending Provider Amanda Lopez Attending Provider Barbie Ruiz MD Unavailable Podlogar ARCHITECTURAL REPRESENTATIVE.Sahra GARCIA Unavailable CRISTHIAN SMITH Referring Unavailable HEMANTH CARRANZA Primary Care Unavailab le CRISTHIAN SMITH Referring Unavailable JAKE RAYMOND Primary Care Unavailable CRISTHIAN SMITH Attending Unavailable SELF Referring Unavailable JAKE RAYMOND Primary Care Unavailable CRISTHIAN SMITH Referring Unavailable HEMANTH CARRANZA Primary Care Unavailab ORVILLE Gonzalez Attending Unavailable CRISTHIAN SMITH Attending Unavailable CRISTHIAN SMITH Referring Unavailable CRISTHIAN SMITH Referring Unavailable PELON WINCHESTER Attending Unavailable PELON WINCHESTER Referring Unavailable SCHJAKE NEWMAN E Primary Care Unavailable CRISTHIAN SMITH Attending Unavailable JAKE RAYMOND Primary Care Unavailable CRISTHIAN SMITH Attending Unavailable [...] Provider Dr. Mitch Ruiz DO Attending Provider Dr. Dao Luciano MD Attending Provider Care Physician, No Primary Primary Care Provider Unavailable Jose Alejandro ROAD GRADER-C, Rachel Figueroa Attending Provider Dr. Dao Luciano MD Referring Provider NURSE, MEDICINE PARK Attending Provider Unavailable Curt HOLGUIN, Dr. Lima Attending Provider Saniya HOLGUIN, Dr. French Attending Provider [phone] Curt HOLGUIN, Dr. Lima Attending Provider [address] GRADER-C, Ginny Attending Provider Conor Barros MD Attending Provider [phone] Dennis Chow MD Attending Provider Care Physician, No Primary Referring Provider Un available Dr. Dao Luciano MD Referring Provider Dr. Dennis Chow MD Primary Care Provider Jose Alejandro ROAD GRADER-C, Rachel Figueroa Attending Provider Jose Alejandro RO[address] GRADER-C, Rachel Figueroa Referring Provider Dr. Dennis Chow MD Primary Care Physician [phone] GRADER-C, Rachel Figueroa Referring Provider Jose Alejandro RO[address] GRADER-C, Rachel Figueroa Nurse Practitioner Dr. Mitch Ruiz DO Attending Physician Jose Alejandro RO[address] GRADER-C, Rachel Figueroa Attending Physician [phone] Claudine HOLGUIN, Dr. Carey Referring Provider Amanda Lopez Attending Physician [phone] Mustapha HOLGUIN, Dr. Dc Attending Physician [phone] Claudine HOLGUIN, Dr. Carey Attending Physician [phone] Saniya HOLGUIN, Dr. French Attending Physician [phone] Curt HOLGUIN, Dr. Lima Attending Physician [address] GRADER-C, Ginny Attending Physician [phone] Conor Barros MD Attending Physician [phone] [address] RO[address] GRADER-C, Ginny Referring Provider [phone] Conor Barros MD Referring Provider [phone] GRADER-C, Evelia Attending Physician Ungerer RO[address] GRADER-C, Evelia Referring Provider [phone] Amanda Milton Attending Unavailable Claudine, Dennis Primary Care Unavailable Claudine, Dennis Referring Unavailable Jose Martin, Pernell Attending Unavailable Care Physician, No Primary Referring Unava ilable Care Physician, No Primary Primary Care Unava ilable Conor Barros Referring Unavailable Claudine, Dennis Primary Care Unavailable Conor Barros Attending Unavailable Dao Luciano Attending Unavailable [place], Dennis Primary Care Unavailable Dao Luciano Referring Unavailable Rachel Madden Referring Unavailable Rachel Madden Attending Unavailable [place], Dennis Primary Care Unavailable Rachel Madden Referring Unavailable Rachel Madden Attending Unavailable [place], Dennis Primary Care Unavailable Rachel Madden Attending Unavailable [place], Dennis Primary Care Unavailable Care Physician, No Primary Referring Unava ilable Janie Elias Attending Unavailable Claudine, Dennis Primary Care Unavailable Claudine, Dennis Referring Unavailable [place], Dennis Attending Unavailable [place], Dennis Referring Unavailable Claudine, Dennis Primary Care Unavailable Friend, Pernell Attending Unavailable Friend, Pernell Referring Unavailable Care Physician, No Primary Primary Care Unava ilable Alexus Machuca Primary Care Unavailable Juarez Harris Attending Unavailable Juarez Harris Referring Unavailable Sven, Alexus Primary Care Unavailable Juarez Harris Referring Unavailable Juarez Harris Attending Unavailable Dao Luciano Referring Unavailable [place], Dennis Primary Care Unavailable Dao Luciano Attending Unavailable Dao Luciano Referring Unavailable [place], Dennis Primary Care Unavailable Dao Luciano Attending Unavailable Rachel Madden Referring Unavailable Rachel Madden Attending Unavailable Claudine, Dennis Primary Care Unavailable Claudine, Dennis Primary Care Unavailable Claudine, Dennis Referring Unavailable Claudine, Dennis Attending Unavailable Claudine, Dennis Primary Care Unavailable Claudine, Dennis Referring Unavailable [place], Dennis Attending Unavailable Claudine, Dennis Primary Care Unavailable Ginny Acevedo Attending Unavailable [place], Dennis Primary Care Unavailable [place], Dennis Attending Unavailable Claudine, Dennis Primary Care Unavailable UngererWilfredEvelia Attending Unavailable Ungerer Evelia Referring Unavailable [place], Dennis Primary Care Unavailable [place], Dennis Attending Unavailable [place], Dennis Referring Unavailable [place], Dennis Referring Unavailable Claudine, Dennis Primary Care Unavailable Ginny Acevedo Attending Unavailable Sven, Alexus Referring Unavailable Sven, Alexus Primary Care Unavailable Pernell Philippe Attending Unavailable Amanda Milton Attending Unavailable Claudine, Dennis Primary Care Unavailable Claduine, Dennis Referring Unavailable [place], Dennis Attending Unavailable Care Physician, No Primary Primary Care Unava ilable Care Physician, No Primary Referring Unava ilable Rachel Madden Attending Unavailable Jake Raymond Referring Unavailable Care Physician, No Primary Primary Care Unava ilable Dao Luciano Attending Unavailable Claudine, Dennis Primary Care Unavailable 10 mg tablet Take 1 tablet by mouth daily at bedtime. coenzyme Q10 (COENZYME Q-10) 100 mg cap capsule Take 1 capsule by mouth twice daily. Cholecalciferol, Vitamin D3, 25 mcg (1,000 unit) cap Ta (more content not included)... Normal [facility] B2 Microglob SerPl-mCncon Hgka-3-Whofxatgblavk [Mass/Vol] 2.5 ug/mL Normal <3.1 [facility] Comment on above: Order Comment: Speci men Type: BLOOD SPECIMENOrdering Facility: [facility] Address: [address] [place] [address] Result Comment: Beta -2 Microglobulin test is performed using the [employer] immunoturbidimetric method. Results obtained with different methods or kits cannot be used interchangeably. Performed By: #### 2 885-2, 195- ####[facility] LABCLIA [id number] [place] [address] [place] CBC W Auto Differential pane l (Bld)on 02-10-2025 Basophils (Bld) [#/Vol] 0.04 10*3/uL Normal <0.11 [facility] Comment on above: Order Comment: Speci men Type: BLOOD SPECIMENOrdering Facility: [facility] Address: [address] [place] [address] Performed By: #### 5 7021-8 ####[facility] [id number] [place] [address] [place] Basophils/100 WBC (Bld) 0.5 % Normal [facility] Comment on above: Order Comment: Speci men Type: BLOOD SPECIMENOrdering Facility: [facility] Address: [address] [place] [address] Performed By: #### 5 7021-8 ####[facility] [id number] [place] [address] [place] Differential cell count method Nom (Bld) Auto Normal [facility] Comment on above: Order Comment: Speci men Type: BLOOD SPECIMENOrdering Facility: [facility] Address: [address] [place] [address] Performed By: #### 5 7021-8 ####[facility] HOSPITALLIA [id number] [place] [address] [place] Eosinophils (Bld) [#/Vol] 0.13 10*3/uL Normal <0.46 [facility] Comment on above: Order Comment: Speci men Type: BLOOD SPECIMENOrdering Facility: [facility] Address: [address] [place] [address] Performed By: #### 5 7021-8 ####[facility]ITALNCLI [id number] [place] [address] [place] Eosinophils/100 WBC (Bld) 1.7 % Normal [facility] Comment on above: Order Comment: Speci men Type: BLOOD SPECIMENOrdering Facility: [facility] Address: [address] [place] [address] Performed By: #### 5 7021-8 ####[facility]ITALNCLI [id number] [place] [address] [place] Erythrocyte distribution width (RBC) [Ratio] 13.5 % Normal 11.5-15.0 [facility] Comment on above: Order Comment: Speci men Type: BLOOD SPECIMENOrdering Facility: [facility] Address: [address] [place] [address] Performed By: #### 5 7021-8 ####[facility]ITALNCLIA [id number] [place] [address] [place] Hematocrit (Bld) [Volume fraction] 38.6 % Normal 36.0-46.0 [facility] Comment on above: Order Comment: Speci men Type: BLOOD SPECIMENOrdering Facility: [facility] Address: [address] [place] [address] Performed By: #### 5 7021-8 ####[facility]ITALNCLIA [id number] [place] [address] [place] Hemoglobin (Bld) [Mass/Vol] 12.9 g/dL Normal 11.5-15.5 [facility] Comment on above: Order Comment: Speci men Type: BLOOD SPECIMENOrdering Facility: [facility] Address: [address] [place] [address] Performed By: #### 5 7021-8 ####[facility] MILLNANCIWNCLIA [id number] [place] [address] [place] Immature granulocytes (Bld) [#/Vol] 10*3/uL Normal <0.10 [facility] Comment on above: Order Comment: Speci men Type: BLOOD SPECIMENOrdering Facility: [facility] Address: [address] [place] [address] Performed By: #### 5 7021-8 ####[facility] FLORIDAWNCLIA [id number] [place] [address] [place] Immature granulocytes/100 WBC (Bld) 0.1 % Normal [facility] Comment on above: Order Comment: Speci men Type: BLOOD SPECIMENOrdering Facility: [facility] Address: [address] [place] [address] Performed By: #### 5 7021-8 ####[facility]ITALNCLIA [id number] [place] [address] [place] Lymphocytes (Bld) [#/Vol] 3.30 10*3/uL Normal 1.00-4.00 [facility] Comment on above: Order Comment: Speci men Type: BLOOD SPECIMENOrdering Facility: [facility] Address: [address] [place] [address] Performed By: #### 5 7021-8 ####[facility] MILLTOWNCLIA [id number] [place] [address] [place] Lymphocytes/100 WBC (Bld) 42.8 % Normal [facility] Comment on above: Order Comment: Speci men Type: BLOOD SPECIMENOrdering Facility: [facility] Address: [address] [place] [address] Performed By: #### 5 7021-8 ####[facility] MILLWNCLIA [id number] [place] [address] [place] MCH (RBC) [Entitic mass] 29.2 pg Normal 26.0-34.0 [facility] Comment on above: Order Comment: Speci men Type: BLOOD SPECIMENOrdering Facility: [facility] Address: [address] [place] [address] Performed By: #### 5 7021-8 ####[facility] [id number] [place] [address] [place] MCHC (RBC) [Mass/Vol] 33.4 g/dL Normal 30.5-36.0 [facility] Comment on above: Order Comment: Speci men Type: BLOOD SPECIMENOrdering Facility: [facility] Address: [address] [place] [address] Performed By: #### 5 7021-8 ####[facility]ITALNCCASTLEVIEW H[facility]ITAL [id number] [place] [address] [place] MCV (RBC) [Entitic vol] 87.3 fL Normal 80.0-100.0 [facility] Comment on above: Order Comment: Speci men Type: BLOOD SPECIMENOrdering Facility: [facility] Address: [address] [place] [address] Performed By: #### 5 7021-8 ####[facility]ITALNCLIA [id number] [place] [address] [place] Monocytes (Bld) [#/Vol] 0.51 10*3/uL Normal <0.87 [facility] Comment on above: Order Comment: Speci men Type: BLOOD SPECIMENOrdering Facility: [facility] Address: [address] [place] [address] Performed By: #### 5 7021-8 ####[facility]ITALNCLIA [id number] [place] [address] [place] Monocytes/100 WBC (Bld) 6.6 % Normal C [facility] Comment on above: Order Comment: Speci men Type: BLOOD SPECIMENOrdering Facility: [facility] Address: [address] [place] [address] Performed By: #### 5 7021-8 ####[facility] [id number] [place] [address] [place] Neutrophils (Bld) [#/Vol] 3.72 10*3/uL Normal 1.45-7.50 [facility] Comment on above: Order Comment: Speci men Type: BLOOD SPECIMENOrdering Facility: [facility] Address: [address] [place] [address] Performed By: #### 5 7021-8 ####[facility] [id number] [place] [address] [place] Neutrophils/100 WBC (Bld) 48.3 % Normal [facility] Comment on above: Order Comment: Speci men Type: BLOOD SPECIMENOrdering Facility: [facility] Address: [address] [place] [address] Performed By: #### 5 7021-8 ####[facility] [id number] [place] [address] [place] Nucleated RBC (Bld) [#/Vol] 10*3/uL Normal <0.01 [facility] Comment on above: Order Comment: Speci men Type: BLOOD SPECIMENOrdering Facility: [facility] Address: [address] [place] [address] Performed By: #### 5 7021-8 ####[facility] [id number] [place] [address] [place] Nucleated RBC/100 WBC (Bld) [Ratio] 0.0 /100 WBC Normal [facility] Comment on above: Order Comment: Speci men Type: BLOOD SPECIMENOrdering Facility: [facility] Address: [address] [place] [address] Performed By: #### 5 7021-8 ####[facility] ELDERNCCARLOSA [id number] [place] [address] [place] Platelet mean volume (Bld) [Entitic vol] 9.9 fL Normal 9.0-12.7 [facility] Comment on above: Order Comment: Speci men Type: BLOOD SPECIMENOrdering Facility: [facility] Address: [address] [place] [address] Performed By: #### 5 7021-8 ####[facility] HOSPITALRAJINDERA [id number] [place] [address] [place] Platelets (Bld) [#/Vol] 263 10*3/uL Normal 150-400 [facility] Comment on above: Order Comment: Speci men Type: BLOOD SPECIMENOrdering Facility: [facility] Address: [address] [place] [address] Performed By: #### 5 7021-8 ####[facility] HOSPITALLIA [id number] [place] [address] [place] RBC (Bld) [#/Vol] 4.42 10*6/uL Normal 3.90-5.20 [facility] Comment on above: Order Comment: Speci men Type: BLOOD SPECIMENOrdering Facility: [facility] Address: [address] [place] [address] Performed By: #### 5 7021-8 ####[facility]ITALNCLIA [id number] [place] [address] [place] WBC (Bld) [#/Vol] 7.71 10*3/uL Normal 3.70-11.00 [facility] Comment on above: Order Comment: Speci men Type: BLOOD SPECIMENOrdering Facility: [facility] Address: [address] [place] [address] Performed By: #### 5 7021-8 ####[facility] MILLTOWNCLIA [id number] [place] [address] [place] Comprehensive metabolic 2000 panelon 02-10-2025 Albumin [Mass/Vol] 5.0 g/dL High 3.9-4.9 [facility] Comment on above: Order Comment: Speci men Type: BLOOD SPECIMENOrdering Facility: [facility] Address: [address] [place] [address] Performed By: #### 2 4323-8, 2531-0 ####[facility] MILLWNCLIA [id number] [place] [address] [place] ALP [Catalytic activity/Vol] 31 U/L Low 34-123 [facility] Comment on above: Order Comment: Speci men Type: BLOOD SPECIMENOrdering Facility: [facility] Address: [address] [place] [address] Performed By: #### 2 4323-8, 2531-0 ####[facility] FLORIDAWNCLIA [id number] [place] [address] [place] ALT [Catalytic activity/Vol] 16 U/L Normal 7-38 [facility] Comment on above: Order Comment: Speci men Type: BLOOD SPECIMENOrdering Facility: [facility] Address: [address] [place] [address] Performed By: #### 2 4323-8, 2531-0 ####[facility] MILLTOWNCLIA [id number] [place] [address] [place] Anion gap [Moles/Vol] 15 mmol/L Normal 8-15 [facility] Comment on above: Order Comment: Speci men Type: BLOOD SPECIMENOrdering Facility: [facility] Address: [address] [place] [address] Performed By: #### 2 4323-8, 2-0 ####[facility] MILLTOWNCLIA [id number] [place] [address] [place] AST [Catalytic activity/Vol] 19 U/L Normal 13-35 [facility] Comment on above: Order Comment: Speci men Type: BLOOD SPECIMENOrdering Facility: [facility] Address: [address] [place] [address] Performed By: #### 2 4323-8, 2532-0 ####[facility] HOSPITALNANCIWGABBYLIA [id number] [place] [address] [place] Bilirubin [Mass/Vol] 0.3 mg/dL Normal 0.2-1.3 [facility] Comment on above: Order Comment: Speci men Type: BLOOD SPECIMENOrdering Facility: [facility] Address: [address] [place] [address] Performed By: #### 2 4323-8, 2531-0 ####[facility] HOSPITALJIMENA [id number] [place] [address] [place] Calcium [Mass/Vol] 10.3 mg/dL High 8.5-10.2 [facility] Comment on above: Order Comment: Speci men Type: BLOOD SPECIMENOrdering Facility: [facility] Address: [address] [place] [address] Performed By: #### 2 4323-8, 253-0 ####[facility] HOSPITALNANCIJIMENA [id number] [place] [address] [place] Chloride [Moles/Vol] 97 mmol/L Low 98-107 [facility] Comment on above: Order Comment: Speci men Type: BLOOD SPECIMENOrdering Facility: [facility] Address: [address] [place] [address] Performed By: #### 2 4323-8, 2532-0 ####[facility]OSPITALNANCIWGABBYLIA [id number] [place] [address] [place] CO2 [Moles/Vol] 26 mmol/L Normal 22-30 [facility] Comment on above: Order Comment: Speci men Type: BLOOD SPECIMENOrdering Facility: [facility] Address: [address] [place] [address] Performed By: #### 2 4323-8, 2531-0 ####[facility] [id number] [place] [address] [place] Creatinine [Mass/Vol] 0.90 mg/dL Normal 0.58-0.96 [facility] Comment on above: Order Comment: Speci men Type: BLOOD SPECIMENOrdering Facility: [facility] Address: [address] [place] [address] Performed By: #### 2 4323-8, 0 ####[facility]ITALNCCASTLEVIEW HOSPITAL [id number] [place] [address] [place] Creatinine and Glomerular filtration rate.predicted panel (S/P/Bld) 70 mL/min/1.73m??? Normal >=60 [facility] Comment on above: Order Comment: Speci pili Type: BLOOD SPECIMENOrdering Facility: [facility] Address: [address] [place] [address] Result Comment: Amna mated Glomerular Filtration Rate [...] reflect actual GFR. Performed By: #### 2 4323-8, 0 ####[facility] [id number] [place] [address] [place] Glucose [Mass/Vol] 143 mg/dL High 74-99 [facility] Comment on above: Order Comment: Speci men Type: BLOOD SPECIMENOrdering Facility: [facility] Address: [address] [place], [place] [address] Result Comment: The [place] Diabetes Association (ADA) provides guidance for cutoff [...] Standards of Medical Care in Diabetes 2016, [place] Diabetes Association. Diabetes Care. 2016.39(Suppl 1). Performed By: #### 2 4323-8, 0 ####[facility] [id number] [place] [address] [place] Potassium [Moles/Vol] 3.4 mmol/L Low 3.7-5.1 [facility] Comment on above: Order Comment: Speci men Type: BLOOD SPECIMENOrdering Facility: [facility] Address: [address] [id number] Performed By: #### 2 4323-8, ####[facility] [id number] [place] [address] [place] Protein [Mass/Vol] 8.5 g/dL High 6.3-8.0 [facility] Comment on above: Order Comment: Speci men Type: BLOOD SPECIMENOrdering Facility: [facility] Address: [address] [id number] Performed By: #### 2 4323-8, 0 ####[facility] [id number] [place] [address] [place] Sodium [Moles/Vol] 138 mmol/L Normal 136-144 [facility] Comment on above: Order Comment: Speci men Type: BLOOD SPECIMENOrdering Facility: [facility] Address: [address] [place] [address] Performed By: #### 2 4323-8, 2532-0 ####[facility] HOSPITALFINESSE [id number] [address] [place] Urea nitrogen [Mass/Vol] 16 mg/dL Normal 7-21 [facility] Comment on above: Order Comment: Speci men Type: BLOOD SPECIMENOrdering Facility: [facility] Address: [address] [place] [address] Performed By: #### 2 4323-8, 2531-0 ####[facility]ITALNCLIA [id number] [address] IMMUNOFIXATION SCREEN, SERUM on 02-10-2025 MPA RESULT No M protein is identified. Normal No M protein is identified. [facility] Comment on above: Order Comment: Speci men Type: BLOOD SPECIMENOrdering Facility: [facility] Address: [address] [place] [address] Performed By: #### I FES ####[facility] LABIA [id number] [address] [place] STAFF REVIEW (MPA) Reviewed by Dr. Vale Hurst MD Normal [facility] Comment on above: Order Comment: Speci men Type: BLOOD SPECIMENOrdering Facility: [facility] Address: [address] [place] [address] Performed By: #### I FES ####[facility] LABIA [id number] [address] [address] [place] IMMUNOGLOBULINS,IGG,IGA,IGMo n 02-10-2025 IgA [Mass/Vol] 275 mg/dL Normal 70-400 [facility] Comment on above: Order Comment: Speci men Type: BLOOD SPECIMENOrdering Facility: [facility] Address: [address] [place] [address] Performed By: #### S ERIMM ####[facility] LABCLIA [id number] [place] [address] [place] IgG [Mass/Vol] 1571 mg/dL Normal 700-1600 [facility] Comment on above: Order Comment: Speci men Type: BLOOD SPECIMENOrdering Facility: [facility] Address: [address] [place] [address] Performed By: #### S ERIMM ####[facility] LABCLIA [id number] [place] [address] [place] IgM [Mass/Vol] 134 mg/dL Normal 40-230 [facility] Comment on above: Order Comment: Speci men Type: BLOOD SPECIMENOrdering Facility: [facility] Address: [address] [place] [address] Performed By: #### S ERIMM ####[facility] LABIA [id number] [place] [address] [place] KAPPA/DEJESUS,FREE,SERon 2024 Immunoglobulin light chains.kappa.free (S) [Mass/Vol] 38.8 mg/L High 3.3-19.4 [facility] Comment on above: Order Comment: Speci men Type: BLOOD SPECIMENOrdering Facility: [facility] Address: [address] [place] [address] Result Comment: Rare ly, increased serum free light chains levels may not be detected or accurately quantified due to prozone phenomenon or in high viscosity samples using this immunoturbidimetric assay. Correlation with other laboratory results and clinical findings is recommended. The [place] Free Light Chain was performed using the Binding Site Optilite immunoturbidimetric method. Result obtained with different assay methods or kits cannot be used interchangeably. Performed By: #### K LFRS ####[facility] LABCLIA [id number] [place] [address] [place] Immunoglobulin light chains.kappa/Immunoglobu belle light chains.lambda (S) [Mass ratio] 1.92 High 0.26-1.65 [facility] Comment on above: Order Comment: Speci men Type: BLOOD SPECIMENOrdering Facility: [facility] Address: [address] [place] [address] Performed By: #### K LFRS ####[facility] LABCLIA [id number] [place] [address] [place] Immunoglobulin light chains.lambda.free [Mass/Vol] 20.2 mg/L Normal 5.7-26.3 [facility] Comment on above: Order Comment: Speci men Type: BLOOD SPECIMENOrdering Facility: [facility] Address: [address] [place] [address] Result Comment: Rare ly, increased serum free [...] used interchangeably. Performed By: #### K LFRS ####[facility] LABCLIA [id number] [place] [address] [place] LDH SerPl-cCncon 02-10-2025 LDH [Catalytic activity/Vol] 166 U/L Normal 135-214 [facility] Comment on above: Order Comment: Speci men Type: BLOOD SPECIMENOrdering Facility: [facility] Address: [address] [place] [address] Performed By: #### 2 4323-8, 2532-0 ####[facility] [id number] [place] [address] [place] PROTEIN ELECTROPHORESIS SERU M (P)on 02-10-2025 Albumin [Mass/Vol] 4.82 g/dL Normal 3.43-5.41 [facility] Comment on above: Order Comment: Speci men Type: BLOOD SPECIMENOrdering Facility: [facility] Address: [address] [place] [address] Performed By: #### L [id number] ####[facility] LABCLIA [id number] [place] [address] [place] Alpha 1 globulin Elph [Mass/Vol] 0.27 g/dL Normal 0.18-0.43 [facility] Comment on above: Order Comment: Speci men Type: BLOOD SPECIMENOrdering Facility: [facility] Address: [address] [place] [address] Performed By: #### L [id number] ####[facility] LABIA [id number] [place] [address] [place] Alpha 2 globulin Elph [Mass/Vol] 0.78 g/dL Normal 0.42-0.98 [facility] Comment on above: Order Comment: Speci men Type: BLOOD SPECIMENOrdering Facility: [facility] Address: [address] [place] [address] Performed By: #### L [id number] ####[facility] LABIA [id number] [place] [address] [place] Beta globulin Elph [Mass/Vol] 0.90 g/dL Normal 0.61-1.17 [facility] Comment on above: Order Comment: Speci men Type: BLOOD SPECIMENOrdering Facility: [facility] Address: [address] [place] [address] Performed By: #### L [id number] ####[facility] LABIA [id number] [place] [id number] [place] Gamma globulin Elph [Mass/Vol] 1.33 g/dL Normal 0.53-1.51 [facility] Comment on above: Order Comment: Speci men Type: BLOOD SPECIMENOrdering Facility: [facility] Address: [address] [place] [address] Performed By: #### L [id number] ####[facility] LABIA [id number] [place] [address] [place] INTERPRETATION COMMENT FOR PROTEIN ELECTROPHORESIS The atypical region is relatively poorly defined and may represent an unusual presentation of polyclonal immunoglobulins, but cannot rule out the presence of a low level M protein. If clinically indicated, monoclonal protein analysis and serum free light chain analysis are suggested to evaluate further for monoclonal gammopathy. Normal [facility] Comment on above: Order Comment: Speci pili Type: BLOOD SPECIMENOrdering Facility: [facility] Address: [address] [place] [address] Performed By: #### L [id number] ####[facility] LABCLIA [id number] [address] M-PROTEIN LOCATION Normal [facility] Comment on above: Order Comment: Giovana alejandre Type: BLOOD SPECIMENOrdering Facility: [facility] Address: [address] [place] [address] Result Comment: Not Applicable. Performed By: #### L [id number] ####[facility] LABIA [id number] [address] Protein Fractions [Interp] An atypical region of restricted mobility is identified on protein electrophoresis. Abnormal No definitive M protein is identified on protein electrophor esis. [facility] Comment on above: Order Comment: Giovana alejandre Type: BLOOD SPECIMENOrdering Facility: [facility] Address: [address] [place] [address] Performed By: #### L [id number] ####[facility] LABCLIA [id number] [address] Protein.monoclonal Elph [Mass/Vol] 0.00 g/dL Normal <=0.00 [facility] Comment on above: Order Comment: Hyacinthi pili Type: BLOOD SPECIMENOrdering Facility: [facility] Address: [address] [place] [address] Performed By: #### L [id number] ####[facility] LABCLIA [id number] [address] OF [place] SPE STAFF REVIEW Reviewed by Dr. Vale Hurst MD [facility] Comment on above: Order Comment: Speci men Type: BLOOD SPECIMENOrdering Facility: [facility] Address: [address] [place] [address] Performed By: #### L [id number] ####[facility] LABCLIA [id number] [address] [address] [place] Prot SerPl-mCncon 02-10-2025 Protein [Mass/Vol] 8.1 g/dL High 6.3-8.0 [facility] Comment on above: Order Comment: Speci men Type: BLOOD SPECIMENOrdering Facility: [facility] Address: [address] [place] [address] Performed By: #### 2 885-2, 1951-11 ####[facility] LABCLIA [id number] [place] [address] [place] Pulmonary Visit Reporton Pulmonary Visit Report [facility] [place] [address] [place] [address] OFFICE VISIT Date of Service: 02/02/25 MR#: [id number] Acct: [id number] Name: ЮЛИЯ PRASAD Rep #: [id number] 3 : 1955 Provider: Rachel Madden NP Age/Sex: 69/F Location: [facility].PMW Status: Signed Assessment and Plan Assessment and [...] air. She has previously completed spirometry from [place] on February 28, 2022 which showed normal [...] years. 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 Normal [facility] L7000.0750on 01-10-2025 P ELASTASE,FECA > 800 Normal >200 [facility] Comment on above: Result Comment: Resu lt Units: ug Elast./g Severe Pancreatic Insufficiency: <100 Moderate Pancreatic Insufficiency: 100 - 200 Normal: >200 Performed at: - [facility] [id number] Pressing Machine Tender: Jerrell Napoles MD, Phone: [phone] Performed By: #### L 7000.0750, M100.0605, L7000.0300 #### [facility] Laboratory [address] [place], [address] Stool Lactoferrin/WBCon 12-12 WBCST Normal Reference Ran ge = Negative Fecal WBC Lactoferrin Negative: No Fecal WBC Lactoferrin present Normal [facility] Comment on above: Performed By: #### L 7000.0750, M100.0605, L7000.0300 #### [facility] Laboratory [address] [place], [address] Elastase.pancreatic (Stl) [M ass/Mass]Ordered By: Pernell Philippe on 01-05-2025 Stool Pancreatic Elastase > 800 >200 [facility] Comment on above: Result Units: ug Melyssa st./g Severe Pancreatic Insufficiency: <100 Moderate Pancreatic Insufficiency: 100 - 200 Normal: >200Performed at: BN - [facility] [address] [id number] Director: Jerrell Napoles MD, Phone: [phone] Fecal Fat, Qualitativeon FATS, NEUTRAL Normal [facility] Comment on above: Result Comment: NOT ENOUGH STOOL TO RUN PER [facility] Performed By: #### L 7000.0750, M100.0605, L7000.0300 #### [facility] [address] [place], [address] FATS, TOTAL Normal [facility] Comment on above: Result Comment: NOT ENOUGH STOOL TO RUN PER [facility] Performed By: #### L 7000.0750, M100.0605, L7000.0300 #### [facility] [address] [place], [address] Lactoferrin IA Ql (Stl)Order ed By: Pernell Philippe on 01-05-2025 Stool Lactoferrin [facility] Stool lactoferrin detection by immunoassayOrdered By: Pernell Philippe on 01-05-2025 Lactoferrin IA Ql (Stl) [facility] Stool pancreatic elastase me asurement (mass/mass)Ordered By: Pernell Philippe on 01-05-2025 Elastase.pancreatic (Stl) [Mass/Mass] > 800 >200 [facility] Comment on above: Result Units: ug Melyssa st./g Severe Pancreatic Insufficiency: <100 Moderate Pancreatic Insufficiency: 100 - 200 Normal: >200Performed at: BN - [facility] [address] [id number] Director: Jerrell Napoles MD, Phone: [phone] ARYA Comprehensive Panelon ANTI-DNA (DS)AB 1 IU/mL Normal 0-9 [facility] Comment on above: Result Comment: Nega tive <5 Equivocal 5 - 9 Positive >9 Performed By: #### L 501.6710, L3410.1000, L3410.0900, L503.0105, L3100.6900, L5500.0550, L3100.3425, L504.2610, L3300.1800, L3410.2400, L3100.5440, L500.4050, L101.9900, L3300.1200, L5500.0300, L3200.1100 ####[facility] [address] [place], [place], [id number] ANTISCLERODERM <0.2 Normal 0.0-0.9 [facility] Comment on above: Performed By: #### L 501.6710, L3410.1000, L3410.0900, L503.0105, L3100.6900, L5500.0550, L3100.3425, L504.2610, L3300.1800, L3410.2400, L3100.5440, L500.4050, L101.9900, L3300.1200, L5500.0300, L3200.1100 ####[facility] [address] [place], [place], [phone] ANCAon 01-03-2025 Atypical pANCA <1:20 Normal Neg:<1:20 [facility] Comment on above: Result Comment: The atypical pANCA pattern has been observed in a significant percentage of patients with ulcerative colitis, primary sclerosing cholangitis and autoimmune hepatitis. Performed By: #### L 7000.0750, M100.0605, L7000.0300 #### [facility] Laboratory [address] [place], [place], [id number] Cytoplasmic Ab <1:20 Normal Neg:<1:20 [facility] Comment on above: Performed By: #### L 7000.0750, M100.0605, L7000.0300 #### [facility] Laboratory [address] [place], [place], [phone] Perinuclear Ab. <1:20 Normal Neg:<1:20 [facility] Comment on above: Result Comment: The presence of positive fluorescence exhibiting P-ANCA or C-ANCA patterns alone is not specific for the diagnosis of Evette's Granulomatosis (WG) or microscopic polyangiitis. Decisions about treatment should not be based solely on ANCA IFA results. The International ANCA Group Consensus recommends follow up testing of positive sera with both LA- 3 and MPO-ANCA enzyme immunoassays. As many as 5% serum samples are positive only by EIA. Ref. AM J Clin Pathol 1999;111:507-513. Performed By: #### L 7000.0750, M100.0605, L7000.0300 #### [facility] [address] [place], [place], [phone] Allergen, Mini-Raston 2024 A. ALTERNATA <0.10 Normal Class 0 [facility] Comment on above: Performed By: #### L 501.6710, L3410.1000, L3410.0900, L503.0105, L3100.6900, L5500.0550, L3100.3425, L504.2610, L3300.1800, L3410.2400, L3100.5440, L500.4050, L101.9900, L3300.1200, L5500.0300, L3200.1100 ####[facility] [address] [place], [place], [phone] BERMUDA GRASS <0.10 Normal Class 0 [facility] Comment on above: Performed By: #### L 501.6710, L3410.1000, L3410.0900, L503.0105, L3100.6900, L5500.0550, L3100.3425, L504.2610, L3300.1800, L3410.2400, L3100.5440, L500.4050, L101.9900, L3300.1200, L5500.0300, L3200.1100 ####[facility] [address] [place], [place], [id number] BLUEGRASS, MARI <0.10 Normal Class 0 [facility] Comment on above: Performed By: #### L 501.6710, L3410.1000, L3410.0900, L503.0105, L3100.6900, L5500.0550, L3100.3425, L504.2610, L3300.1800, L3410.2400, L3100.5440, L500.4050, L101.9900, L3300.1200, L5500.0300, L3200.1100 ####[facility] [address] [place], [place], [id number] CAT HAIR/DANDER <0.10 Normal Class 0 [facility] Comment on above: Performed By: #### L 501.6710, L3410.1000, L3410.0900, L503.0105, L3100.6900, L5500.0550, L3100.3425, L504.2610, L3300.1800, L3410.2400, L3100.5440, L500.4050, L101.9900, L3300.1200, L5500.0300, L3200.1100 ####[facility] [address] [place], [address] COMMENT Comment Normal . [facility] Comment on above: Result Comment: Angelique george of Specific IgE Class Description of Class ----- < 0.10 0 Negative 0.10 - 0.31 0/I Equivocal/Low 0.32 - 0.55 I Low 0.56 - 1.40 II Moderate 1.41 - 3.90 III High 3.91 - 19.00 IV Very High 19.01 - 100.00 V Very High >100.00 Very High Performed By: #### L 501.6710, L3410.1000, L3410.0900, L503.0105, L3100.6900, L5500.0550, L3100.3425, L504.2610, L3300.1800, L3410.2400, L3100.5440, L500.4050, L101.9900, L3300.1200, L5500.0300, L3200.1100 ####[facility] [address] [place], [address] D FARINAE MITE <0.10 Normal Class 0 [facility] Comment on above: Performed By: #### L 501.6710, L3410.1000, L3410.0900, L503.0105, L3100.6900, L5500.0550, L3100.3425, L504.2610, L3300.1800, L3410.2400, L3100.5440, L500.4050, L101.9900, L3300.1200, L5500.0300, L3200.1100 ####[facility] [address] [place], [address] D PTERONYSSINUS <0.10 Normal Class 0 [facility] Comment on above: Performed By: #### L 501.6710, L3410.1000, L3410.0900, L503.0105, L3100.6900, L5500.0550, L3100.3425, L504.2610, L3300.1800, L3410.2400, L3100.5440, L500.4050, L101.9900, L3300.1200, L5500.0300, L3200.1100 ####[facility] [address] [place], [address] DOG EPITHELIA <0.10 Normal Class 0 [facility] Comment on above: Performed By: #### L 501.6710, L3410.1000, L3410.0900, L503.0105, L3100.6900, L5500.0550, L3100.3425, L504.2610, L3300.1800, L3410.2400, L3100.5440, L500.4050, L101.9900, L3300.1200, L5500.0300, L3200.1100 ####[facility] [address] [place], [place], [id number] ELM,AMER WHITE <0.10 Normal Class 0 [facility] Comment on above: Performed By: #### L 501.6710, L3410.1000, L3410.0900, L503.0105, L3100.6900, L5500.0550, L3100.3425, L504.2610, L3300.1800, L3410.2400, L3100.5440, L500.4050, L101.9900, L3300.1200, L5500.0300, L3200.1100 ####[facility] [address] [place], [address] Mouse Urine <0.10 Normal Class 0 [facility] Comment on above: Result Comment: Perf ormed at: [facility] [id number] Pressing Machine Tender: [place] Poon PhD, Phone: [phone] Performed at: [facility] [address] [id number] Pressing Machine Tender: Jerrell Napoles MD, Phone: [phone] Performed By: #### L 501.6710, L3410.1000, L3410.0900, L503.0105, L3100.6900, L5500.0550, L3100.3425, L504.2610, L3300.1800, L3410.2400, L3100.5440, L500.4050, L101.9900, L3300.1200, L5500.0300, L3200.1100 ####[facility] [address] [place], [place], [phone] OAK, WHITE <0.10 Normal Class 0 [facility] Comment on above: Performed By: #### L 501.6710, L3410.1000, L3410.0900, L503.0105, L3100.6900, L5500.0550, L3100.3425, L504.2610, L3300.1800, L3410.2400, L3100.5440, L500.4050, L101.9900, L3300.1200, L5500.0300, L3200.1100 ####[facility] [address] [place], [place], [id number] HANNAH HOLLOWAY <0.10 Normal Class 0 [facility] Comment on above: Performed By: #### L 501.6710, L3410.1000, L3410.0900, L503.0105, L3100.6900, L5500.0550, L3100.3425, L504.2610, L3300.1800, L3410.2400, L3100.5440, L500.4050, L101.9900, L3300.1200, L5500.0300, L3200.1100 ####[facility] [address] [place], [place], [id number] LikeList /[facility] <0.10 Normal Class 0 [facility] Comment on above: Performed By: #### L 501.6710, L3410.1000, L3410.0900, L503.0105, L3100.6900, L5500.0550, L3100.3425, L504.2610, L3300.1800, L3410.2400, L3100.5440, L500.4050, L101.9900, L3300.1200, L5500.0300, L3200.1100 ####[facility] [address] [place], [place], [phone] Angiotensin Convert Enzymeon 01-03-2025 ANGIOT-CONV.ENZ 56 U/L Normal 14-82 [facility] Comment on above: Performed By: #### L 7000.0750, M100.0605, L7000.0300 #### [facility] Laboratory [address] [place], [place], [address] Anti-Parietal Cell AB, QNon 01-03-2025 ANTIPARIET CELL 1.7 Units Normal 0.0-20.0 [facility] Comment on above: Result Comment: Nega tive 0.0 - 20.0 Equivocal 20.1 - 24.9 Positive >24.9 Parietal Cell Antibodies are found in 90% of patients with pernicious anemia and 30% of first degree relatives with pernicious anemia. Performed By: #### L 7000.0750, M100.0605, L7000.0300 #### [facility] [address] [place], [place], [phone] Celiac Disease Profileon ENDOMYSIAL IGA Negative Normal Negative [facility] Comment on above: Performed By: #### L 7000.0750, M100.0605, L7000.0300 #### [facility] [address] [place], [place], [phone] tTG IGA <2 Normal 0-3 [facility] Comment on above: Result Comment: Nega tive 0 - 3 Weak Positive 4 - 10 Positive >10 Tissue Transglutaminase (tTG) has been identified as the endomysial antigen. Studies have demonstr- ated that endomysial IgA antibodies have over 99% specificity for gluten sensitive enteropathy. Performed By: #### L 7000.0750, M100.0605, L7000.0300 #### [facility] [address] [place], [place], [address] Gastrin, Serumon 01-03-2025 GASTRIN 92 pg/mL Normal 0-115 [facility] Comment on above: Result Comment: [facility] Mimiboardulite 2000 Immunochemiluminometric assay (ICMA) Values obtained with different assay methods or kits cannot be used interchangeably. Results cannot be interpreted as absolute evidence of the presence or absence of malignant disease. Performed By: #### L 7000.0750, M100.0605, L7000.0300 #### [facility] [address] [place], [address] JAMAAL + Protein Elect, Serumon 01-03-2025 Albumin [Mass/Vol] 3.6 g/dL Normal 2.9-4.4 [facility] Comment on above: Order Comment: N Performed By: #### L 7000.0750, M100.0605, L7000.0300 #### [facility] [address] [place], [address] Albumin/Globulin [Mass ratio] 0.9 {ratio} Normal 0.7-1.7 [facility] Comment on above: Order Comment: N Performed By: #### L 7000.0750, M100.0605, L7000.0300 #### [facility] [address] [place], [address] SLPFE-2-RSEP 0.3 g/dL Normal 0.0-0.4 [facility] Comment on above: Order Comment: N Performed By: #### L 7000.0750, M100.0605, L7000.0300 #### [facility] [address] [place], [address] VNMNR-3-AEDA 0.9 g/dL Normal 0.4-1.0 [facility] Comment on above: Order Comment: N Performed By: #### L 7000.0750, M100.0605, L7000.0300 #### [facility] [address] [place], [address] BETA GLOBULIN 1.2 g/dL Normal 0.7-1.3 [facility] Comment on above: Order Comment: N Performed By: #### L 7000.0750, M100.0605, L7000.0300 #### [facility] [address] [place], [address] GAMMA GLOBULIN 1.6 g/dL Normal 0.4-1.8 [facility] Comment on above: Order Comment: N Performed By: #### L 7000.0750, M100.0605, L7000.0300 #### [facility] [address] [place], [address] Globulin (S) [Mass/Vol] 4.1 g/dL Abnormal 2.2-3.9 [facility] Comment on above: Order Comment: N Performed By: #### L 7000.0750, M100.0605, L7000.0300 #### [facility] [address] [place], [address] JAMAAL RESULT,S Comment: Normal . [facility] Comment on above: Order Comment: N Result Comment: Pres ence of monoclonal protein is unclear at this time. Suggest repeat in 3 to 6 months if clinically indicated. Performed By: #### L 7000.0750, M100.0605, L7000.0300 #### [facility] [address] [place], [id number] IMMUNOGLOB A QN 258 mg/dL Normal 87-352 [facility] Comment on above: Order Comment: N Performed By: #### L 7000.0750, M100.0605, L7000.0300 #### [facility] Laboratory [address] [place], [address] IMMUNOGLOB G QN 1495 mg/dL Normal 586-1602 [facility] Comment on above: Order Comment: N Performed By: #### L 7000.0750, M100.0605, L7000.0300 #### [facility] [address] [place], [address] IMMUNOGLOB M QN 131 mg/dL Normal 26-217 [facility] Comment on above: Order Comment: N Performed By: #### L 7000.0750, M100.0605, L7000.0300 #### [facility] [address] [place], [address] M-Lalo Not Observed Normal Not Observed [facility] Comment on above: Order Comment: N Performed By: #### L 7000.0750, M100.0605, L7000.0300 #### [facility] [address] [place], [address] NOTE: Comment Normal . [facility] Comment on above: Order Comment: N Result Comment: Prot ein electrophoresis scan will follow via computer, mail, or cable installation manager delivery. Performed By: #### L 7000.0750, M100.0605, L7000.0300 #### [facility] [address] [place], [address] Protein [Mass/Vol] 7.7 g/dL Normal 6.0-8.5 [facility] Comment on above: Order Comment: N Performed By: #### L 7000.0750, M100.0605, L7000.0300 #### [facility] [address] [place], [address] Immunoglobulins G/A/M/Indra IMMUNOGLOB E QN 48 IU/mL Normal 6-495 [facility] Comment on above: Order Comment: N Performed By: #### L 7000.0750, M100.0605, L7000.0300 #### [facility] Laboratory [address] [place], [address] Intrinsic Factor Abon 2024 INTRINS FACT AB 1.0 AU/mL Normal 0.0-1.1 [facility] Comment on above: Result Comment: Perf ormed at: - [facility] [id number] Pressing Machine Tender: [place] Poon PhD, Phone: [phone] Performed at: [facility] [id number] Pressing Machine Tender: Jerrell Napoles MD, Phone: [phone] Performed By: #### L 7000.0750, M100.0605, L7000.0300 #### [facility] [address] [place], [place], [id number] L5500.0550on 01-03-2025 BEEF <0.10 Normal Class 0 [facility] Comment on above: Performed By: #### L 501.6710, L3410.1000, L3410.0900, L503.0105, L3100.6900, L5500.0550, L3100.3425, L504.2610, L3300.1800, L3410.2400, L3100.5440, L500.4050, L101.9900, L3300.1200, L5500.0300, L3200.1100 ####[facility] [address] [place], [address] CHOCOLATE <0.10 Normal Class 0 [facility] Comment on above: Performed By: #### L 501.6710, L3410.1000, L3410.0900, L503.0105, L3100.6900, L5500.0550, L3100.3425, L504.2610, L3300.1800, L3410.2400, L3100.5440, L500.4050, L101.9900, L3300.1200, L5500.0300, L3200.1100 ####[facility] [address] [place], [address] CODFISH <0.10 Normal Class 0 [facility] Comment on above: Performed By: #### L 501.6710, L3410.1000, L3410.0900, L503.0105, L3100.6900, L5500.0550, L3100.3425, L504.2610, L3300.1800, L3410.2400, L3100.5440, L500.4050, L101.9900, L3300.1200, L5500.0300, L3200.1100 ####[facility] [address] [place], [place], [phone] CORN <0.10 Normal Class 0 [facility] Comment on above: Performed By: #### L 501.6710, L3410.1000, L3410.0900, L503.0105, L3100.6900, L5500.0550, L3100.3425, L504.2610, L3300.1800, L3410.2400, L3100.5440, L500.4050, L101.9900, L3300.1200, L5500.0300, L3200.1100 ####[facility] [address] [place], [place], [phone] EGG, WHOLE <0.10 Normal Class 0 [facility] Comment on above: Performed By: #### L 501.6710, L3410.1000, L3410.0900, L503.0105, L3100.6900, L5500.0550, L3100.3425, L504.2610, L3300.1800, L3410.2400, L3100.5440, L500.4050, L101.9900, L3300.1200, L5500.0300, L3200.1100 ####[facility] [address] [place], [address] MILK (COW) <0.10 Normal Class 0 [facility] Comment on above: Performed By: #### L 501.6710, L3410.1000, L3410.0900, L503.0105, L3100.6900, L5500.0550, L3100.3425, L504.2610, L3300.1800, L3410.2400, L3100.5440, L500.4050, L101.9900, L3300.1200, L5500.0300, L3200.1100 ####[facility] [address] [place], [place], [phone] MUSSELS <0.10 Normal Class 0 [facility] Comment on above: Performed By: #### L 501.6710, L3410.1000, L3410.0900, L503.0105, L3100.6900, L5500.0550, L3100.3425, L504.2610, L3300.1800, L3410.2400, L3100.5440, L500.4050, L101.9900, L3300.1200, L5500.0300, L3200.1100 ####[facility] [address] [facility] [place], [place], [phone] PEANUT <0.10 Normal Class 0 [facility] Comment on above: Performed By: #### L 501.6710, L3410.1000, L3410.0900, L503.0105, L3100.6900, L5500.0550, L3100.3425, L504.2610, L3300.1800, L3410.2400, L3100.5440, L500.4050, L101.9900, L3300.1200, L5500.0300, L3200.1100 ####[facility] [address] [place], [address] PORK <0.10 Normal Class 0 [facility] Comment on above: Performed By: #### L 501.6710, L3410.1000, L3410.0900, L503.0105, L3100.6900, L5500.0550, L3100.3425, L504.2610, L3300.1800, L3410.2400, L3100.5440, L500.4050, L101.9900, L3300.1200, L5500.0300, L3200.1100 ####[facility] [address] [facility] [place], [place], [phone] SALMON <0.10 Normal Class 0 [facility] Comment on above: Performed By: #### L 501.6710, L3410.1000, L3410.0900, L503.0105, L3100.6900, L5500.0550, L3100.3425, L504.2610, L3300.1800, L3410.2400, L3100.5440, L500.4050, L101.9900, L3300.1200, L5500.0300, L3200.1100 ####[facility] [address] [place], [place], [phone] SHRIMP <0.10 Normal Class 0 [facility] Comment on above: Performed By: #### L 501.6710, L3410.1000, L3410.0900, L503.0105, L3100.6900, L5500.0550, L3100.3425, L504.2610, L3300.1800, L3410.2400, L3100.5440, L500.4050, L101.9900, L3300.1200, L5500.0300, L3200.1100 ####[facility] [address] [place], [address] SOYBEAN <0.10 Normal Class 0 [facility] Comment on above: Performed By: #### L 501.6710, L3410.1000, L3410.0900, L503.0105, L3100.6900, L5500.0550, L3100.3425, L504.2610, L3300.1800, L3410.2400, L3100.5440, L500.4050, L101.9900, L3300.1200, L5500.0300, L3200.1100 ####[facility] [address] [place], [address] TUNA <0.10 Normal Class 0 [facility] Comment on above: Performed By: #### L 501.6710, L3410.1000, L3410.0900, L503.0105, L3100.6900, L5500.0550, L3100.3425, L504.2610, L3300.1800, L3410.2400, L3100.5440, L500.4050, L101.9900, L3300.1200, L5500.0300, L3200.1100 ####[facility] [address] [place], [place], [phone] WHEAT <0.10 Normal Class 0 [facility] Comment on above: Performed By: #### L 501.6710, L3410.1000, L3410.0900, L503.0105, L3100.6900, L5500.0550, L3100.3425, L504.2610, L3300.1800, L3410.2400, L3100.5440, L500.4050, L101.9900, L3300.1200, L5500.0300, L3200.1100 ####[facility] [address] [place], [address] A. alternata IgE Qn (S)Order ed By: Pernell Philippe on 12-28-2024 Alternaria alternata IgE Allergen <0.10 kU/L Class 0 [facility] Addendum DocumentOrdered By: Pernell Philippe on 12-28-2024 Serum Immunofixation Comments Comment . [facility] Comment on above: Protein electrophore sis scan will follow via computer,mail, or cable installation manager delivery. Albumin Elph [Mass/Vol]Order ed By: Pernell Philippe on 12-28-2024 Albumin [Mass/Vol] 3.6 g/dL 2.9-4.4 [facility] Albumin to globulin ratioOrd ered By: Pernell Philippe on 12-28-2024 Albumin/Globulin [Mass ratio] 1.0 {ratio} 0.9-2.4 [facility] Alpha 1 globulin Elph [Mass/ Vol]Ordered By: Pernell Philippe on 12-28-2024 Lycko-0-Jeesbapcp (JAMAAL) 0.3 g/dL 0.0-0.4 [facility] Lkfru-2-Jfympwwhu (JAMAAL) 0.9 g/dL 0.4-1.0 [facility] Citizen Of [place] house dust mite IgE Qn (S)Ordered By: Pernell Philippe on 12-28-2024 Dermatophagoides farinae Allergen <0.10 kU/L Class 0 [facility] Atypical perinuclear antineu trophil cytoplasmic antibodies measurementOrdered By: Pernell Philippe on 12-28-2024 Atypical p-ANCA <1:20 titer Neg:<1:20 [facility] Comment on above: The atypical pANCA p attern has been observed in asignificant percentage of patients with ulcerative colitis,primary sclerosing cholangitis and autoimmune hepatitis. Beef IgE Qn (S)Ordered By: Francoise Philippe on 12-28-2024 Beef Allergen (RAST) <0.10 kU/L Class 0 [facility] B[place] grass IgE Qn (S)Orde red By: Pernell Philippe on 12-28-2024 [place] Grass Allergen <0.10 kU/L Class 0 [facility] Beta globulin Elph [Mass/Vol ]Ordered By: Pernell Philippe on 12-28-2024 Beta-Globulins (JAMAAL) 1.2 g/dL 0.7-1.3 [facility] Bilirubin, totalOrdered By: Pernell Philippe on 12-28-2024 Bilirubin [Mass/Vol] 0.40 mg/dL 0.20-1.00 [facility] Comment on above: For patients on eltr ombopag therapy, use of Dimension [place] TBIL is not recommended. Blood urea nitrogen (BUN)/cr eatinine ratioOrdered By: Pernell Philippe on 12-28-2024 Urea nitrogen/Creatinine [Mass ratio] 7.2 mg/mg Low 10-20 [facility] C-reactive protein measureme nt by high sensitivity methodOrdered By: Pernell Philippe on 12-28-2024 C-Reactive Protein Extended Range < 2.90 mg/L 0.0-3.0 [facility] Comment on above: C-Reactive Protein ( CRP) provides useful information for thediagnosis, therapy and monitoring of inflammatory processesand associated diseases. For the evaluation of Relative Riskfor Cardiovascular Disease, a High Sensitivity CRP (HSCRP)should be ordered. CRPon 12-28-2024 C-REACTIVE PROT < 2.90 Normal 0.0-3.0 [facility] Comment on above: Result Comment: C-Re active Protein (CRP) provides useful information for the diagnosis, therapy and monitoring of inflammatory processes and associated diseases. For the evaluation of Relative Risk for Cardiovascular Disease, a High Sensitivity CRP (HSCRP) should be ordered. Performed By: #### L 501.6710, L3410.1000, L3410.0900, L503.0105, L3100.6900, L5500.0550, L3100.3425, L504.2610, L3300.1800, L3410.2400, L3100.5440, L500.4050, L101.9900, L3300.1200, L5500.0300, L3200.1100 ####[facility] [address] [place], [address] Carbon dioxide measurementOr dered By: Pernell Philippe on 12-28-2024 CO2 [Moles/Vol] 26.0 mmol/L 21.0-32.0 [facility] Cat dander IgE Qn (S)Ordered By: Pernell Philippe on 12-28-2024 Cat Dander IgE Allergen <0.10 kU/L Class 0 [facility] Centromere B antibody assayO rdered By: Pernell Philippe on 12-28-2024 Centromere B Antibody <0.2 AI 0.0-0.9 [facility] Comment on above: Previous reported re sult: TNP AIEdited by: BIA on 01/03/25:0907 AMENDED REPORT 01/03/25 09 ANTI-CENT B previously reported as: Test not performed Chloride measurementOrdered By: Pernell Philippe on 12-28-2024 Chloride [Moles/Vol] 104 mmol/L 98-107 [facility] Chocolate IgE Qn (S)Ordered By: Pernell Philippe on 12-28-2024 Chocolate Allergen (RAST) <0.10 kU/L Class 0 [facility] Chromatin antibody assayOrde red By: Pernell Philippe on 12-28-2024 Antichromatin Antibodies <0.2 AI 0.0-0.9 [facility] Comment on above: Previous reported re sult: TNP AIEdited by: BIA on 01/03/25:0907 AMENDED REPORT 01/03/25 0907 ANTICHROMATIN previously reported as: Test not performed Codfish IgE Qn (S)Ordered By : Pernell Philippe on 12-28-2024 Codfish Allergen (RAST) <0.10 kU/L Class 0 [facility] Comprehensive Metabolic Prof ilon 12-28-2024 Albumin [Mass/Vol] 4.1 g/dL Normal 3.2-5.0 [facility] Comment on above: Performed By: #### L 501.6710, L3410.1000, L3410.0900, L503.0105, L3100.6900, L5500.0550, L3100.3425, L504.2610, L3300.1800, L3410.2400, L3100.5440, L500.4050, L101.9900, L3300.1200, L5500.0300, L3200.1100 ####[facility] [address] [place], [place], [phone] Albumin/Globulin [Mass ratio] 1.0 {ratio} Normal 0.9-2.4 [facility] Comment on above: Performed By: #### L 501.6710, L3410.1000, L3410.0900, L503.0105, L3100.6900, L5500.0550, L3100.3425, L504.2610, L3300.1800, L3410.2400, L3100.5440, L500.4050, L101.9900, L3300.1200, L5500.0300, L3200.1100 ####[facility] [address] [place], [place], [phone] ALK P 26 U/L Low 45-117 [facility] Comment on above: Performed By: #### L 501.6710, L3410.1000, L3410.0900, L503.0105, L3100.6900, L5500.0550, L3100.3425, L504.2610, L3300.1800, L3410.2400, L3100.5440, L500.4050, L101.9900, L3300.1200, L5500.0300, L3200.1100 ####[facility] [address] [place], [place], [phone] ALT [Catalytic activity/Vol] 26 U/L Normal 13-56 [facility] Comment on above: Performed By: #### L 501.6710, L3410.1000, L3410.0900, L503.0105, L3100.6900, L5500.0550, L3100.3425, L504.2610, L3300.1800, L3410.2400, L3100.5440, L500.4050, L101.9900, L3300.1200, L5500.0300, L3200.1100 ####[facility] [address] [place], [place], [phone] AST [Catalytic activity/Vol] 27 U/L Normal 15-37 [facility] Comment on above: Performed By: #### L 501.6710, L3410.1000, L3410.0900, L503.0105, L3100.6900, L5500.0550, L3100.3425, L504.2610, L3300.1800, L3410.2400, L3100.5440, L500.4050, L101.9900, L3300.1200, L5500.0300, L3200.1100 ####[facility] [address] [place], [place], [phone] Bilirubin [Mass/Vol] 0.40 mg/dL Normal 0.20-1.00 [facility] Comment on above: Result Comment: For patients on eltrombopag therapy, use of Dimension [place] TBIL is not recommended. Performed By: #### L 501.6710, L3410.1000, L3410.0900, L503.0105, L3100.6900, L5500.0550, L3100.3425, L504.2610, L3300.1800, L3410.2400, L3100.5440, L500.4050, L101.9900, L3300.1200, L5500.0300, L3200.1100 ####[facility] [address] [place], [place], [phone] BUN/CRE 7.2 RATIO Low 10-20 [facility] Comment on above: Performed By: #### L 501.6710, L3410.1000, L3410.0900, L503.0105, L3100.6900, L5500.0550, L3100.3425, L504.2610, L3300.1800, L3410.2400, L3100.5440, L500.4050, L101.9900, L3300.1200, L5500.0300, L3200.1100 ####[facility] [address] [place], [address] CA,Total 9.4 mg/dL Normal 8.5-10.1 [facility] Comment on above: Performed By: #### L 501.6710, L3410.1000, L3410.0900, L503.0105, L3100.6900, L5500.0550, L3100.3425, L504.2610, L3300.1800, L3410.2400, L3100.5440, L500.4050, L101.9900, L3300.1200, L5500.0300, L3200.1100 ####[facility] [address] [place], [address] Chloride [Moles/Vol] 104 mmol/L Normal 98-107 [facility] Comment on above: Performed By: #### L 501.6710, L3410.1000, L3410.0900, L503.0105, L3100.6900, L5500.0550, L3100.3425, L504.2610, L3300.1800, L3410.2400, L3100.5440, L500.4050, L101.9900, L3300.1200, L5500.0300, L3200.1100 ####[facility] [address] [place], [address] CO2 [Moles/Vol] 26.0 mmol/L Normal 21.0-32.0 [facility] Comment on above: Performed By: #### L 501.6710, L3410.1000, L3410.0900, L503.0105, L3100.6900, L5500.0550, L3100.3425, L504.2610, L3300.1800, L3410.2400, L3100.5440, L500.4050, L101.9900, L3300.1200, L5500.0300, L3200.1100 ####[facility] [address] [place], [address] Creatinine [Mass/Vol] 0.84 mg/dL Normal 0.55-1.02 [facility] Comment on above: Result Comment: The validity of the calculated GFR GFRAA in patients over 70 years has not been determined. Clinical correlation is essential. Performed By: #### L 501.6710, L3410.1000, L3410.0900, L503.0105, L3100.6900, L5500.0550, L3100.3425, L504.2610, L3300.1800, L3410.2400, L3100.5440, L500.4050, L101.9900, L3300.1200, L5500.0300, L3200.1100 ####[facility] [address] [place], [address] EST GFR - AA 88 mL/min Normal >60 [facility] Comment on above: Result Comment: Afri can Citizen Of [place] GFR Calc Performed By: #### L 501.6710, L3410.1000, L3410.0900, L503.0105, L3100.6900, L5500.0550, L3100.3425, L504.2610, L3300.1800, L3410.2400, L3100.5440, L500.4050, L101.9900, L3300.1200, L5500.0300, L3200.1100 ####[facility] [address] [place], [address] GAP 8 Normal 5-15 [facility] Comment on above: Performed By: #### L 501.6710, L3410.1000, L3410.0900, L503.0105, L3100.6900, L5500.0550, L3100.3425, L504.2610, L3300.1800, L3410.2400, L3100.5440, L500.4050, L101.9900, L3300.1200, L5500.0300, L3200.1100 ####[facility] [address] [place], [place], [phone]) GFR/1.73 sq M.predicted among non-blacks MDRD (S/P/Bld) [Vol rate/Area] 72 mL/min/{1.73_m2} Normal >60 [facility] Comment on above: Result Comment: Non- GFR Calc Performed By: #### L 501.6710, L3410.1000, L3410.0900, L503.0105, L3100.6900, L5500.0550, L3100.3425, L504.2610, L3300.1800, L3410.2400, L3100.5440, L500.4050, L101.9900, L3300.1200, L5500.0300, L3200.1100 ####[facility] [address] [place], [place], [phone](114) Globulin (S) [Mass/Vol] 4.0 g/dL Normal 2.2-4.2 [facility] Comment on above: Performed By: #### L 501.6710, L3410.1000, L3410.0900, L503.0105, L3100.6900, L5500.0550, L3100.3425, L504.2610, L3300.1800, L3410.2400, L3100.5440, L500.4050, L101.9900, L3300.1200, L5500.0300, L3200.1100 ####[facility] [address] [place], [place], [phone](127) Glucose [Mass/Vol] 96 mg/dL Normal 74-106 [facility] Comment on above: Performed By: #### L 501.6710, L3410.1000, L3410.0900, L503.0105, L3100.6900, L5500.0550, L3100.3425, L504.2610, L3300.1800, L3410.2400, L3100.5440, L500.4050, L101.9900, L3300.1200, L5500.0300, L3200.1100 ####[facility] [address] [place], [address] Potassium [Moles/Vol] 4.1 mmol/L Normal 3.5-5.1 [facility] Comment on above: Performed By: #### L 501.6710, L3410.1000, L3410.0900, L503.0105, L3100.6900, L5500.0550, L3100.3425, L504.2610, L3300.1800, L3410.2400, L3100.5440, L500.4050, L101.9900, L3300.1200, L5500.0300, L3200.1100 ####[facility] [address] [place], [address] Sodium [Moles/Vol] 138 mmol/L Normal 136-145 [facility] Comment on above: Performed By: #### L 501.6710, L3410.1000, L3410.0900, L503.0105, L3100.6900, L5500.0550, L3100.3425, L504.2610, L3300.1800, L3410.2400, L3100.5440, L500.4050, L101.9900, L3300.1200, L5500.0300, L3200.1100 ####[facility] [address] [place], [place], [phone]) T PROT 8.1 g/dL Normal 6.4-8.2 [facility] Comment on above: Performed By: #### L 501.6710, L3410.1000, L3410.0900, L503.0105, L3100.6900, L5500.0550, L3100.3425, L504.2610, L3300.1800, L3410.2400, L3100.5440, L500.4050, L101.9900, L3300.1200, L5500.0300, L3200.1100 ####[facility] [address] [place], [place], [phone] Urea nitrogen [Mass/Vol] 6 mg/dL Low - [facility] Comment on above: Performed By: #### L 501.6710, L3410.1000, L3410.0900, L503.0105, L3100.6900, L5500.0550, L3100.3425, L504.2610, L3300.1800, L3410.2400, L3100.5440, L500.4050, L101.9900, L3300.1200, L5500.0300, L3200.1100 ####[facility] [address] [place], [place], [phone] [place] IgE Qn (S)Ordered By: Francoise Philippe on 12-28-2024 [place] Allergen (RAST) <0.10 kU/L Class 0 [facility] Cow milk IgE Qn (S)Ordered B y: Pernell Philippe on 12-28-2024 Cow's Milk Allergen <0.10 kU/L Class 0 [facility] DNA double strand Ab Qn (S)O rdered By: Pernell Philippe on 12-28-2024 Anti-Double Strand DNA Antibody 1 IU/mL 0-9 [facility] Comment on above: Negative <5 Equivoca l 5 - 9 Positive >9 Dog epithelium IgE Qn (S)Ord ered By: Pernell Philippe on 12-28-2024 Dog Epithelia Allergen <0.10 kU/L Class 0 [facility] Endomysial IgA antibody assa yOrdered By: Pernell Philippe on 12-28-2024 Endomysial IgA Antibody Negative Negative [facility] Erythrocyte Sed Rateon 12-28 SED RATE 13 mm/hr Normal 0-30 [facility] Comment on above: Performed By: #### L [id number], L3410.1000, L3410.0900, L503.0105, L3100.6900, L5500.0550, L3100.3425, L504.2610, L3300.1800, L3410.2400, L3100.5440, L500.4050, L101.9900, L3300.1200, L5500.0300, L3200.1100 ####[facility] [id number] [place], [address] Erythrocyte sedimentation ra teOrdered By: Pernell Philippe on 12-28-2024 ESR (Bld) [Velocity] 13 mm/h 0-30 [facility] Estimated glomerular filtrat ion rate (GFR) AmericanOrdered By: Pernell Philippe on 12-28-2024 Estimated GFR (MDRD) Amer 88 mL/min >60 [facility] Comment on above: GFR Calc house dust mite IgE Qn (S)Ordered By: Pernell Philippe on 12-28-2024 Dermatophagoides pteronyss Allergen <0.10 kU/L Class 0 [facility] Gamma globulin Elph [Mass/Vo l]Ordered By: Pernell Philippe on 12-28-2024 Gamma Globulins (JAMAAL) 1.6 g/dL 0.4-1.8 [facility] Gastrin [Mass/Vol]Ordered By : Pernell Philippe on 12-28-2024 Gastrin 92 pg/mL 0-115 [facility] Comment on above: Siemens Immulite 200 0 Immunochemiluminometric assay (ICMA)Values obtained with different assay methods or kits cannotbe used interchangeably. Results cannot be interpreted asabsolute evidence of the presence or absence of malignantdisease. Gastrin, serumOrdered By: Ra mike Philippe on 12-28-2024 Gastrin [Mass/Vol] 92 pg/mL 0-115 [facility] Comment on above: Siemens Immulite 200 0 Immunochemiluminometric assay (ICMA)Values obtained with different assay methods or kits cannotbe used interchangeably. Results cannot be interpreted asabsolute evidence of the presence or absence of malignantdisease. Gastroenterology Visit Repor ton 12-28-2024 Gastroenterology Visit Report [facility] Gastroenterology [address] [place], [place] [address] OFFICE VISIT Date of Service: 12/28/24 MR#: [id number] Acct: [id number] Name: ЮЛИЯ PRASAD Rep #: [id number] : 1955 Provider: Pernell Philippe DO Age/Sex: 69/F Location: [facility] [place] Status: Signed Intake Vital Signs 02/05/23 18:16 [...] Const Genera (more content not included)... Normal [facility] Glomerular filtration rate ( GFR) estimationOrdered By: Pernell Philippe on 12-28-2024 Estimated GFR (MDRD) Non-Af Amer 72 mL/min >60 [facility] Comment on above: Non- GFR Calc GFR/1.73 sq M.predicted among non-blacks MDRD (S/P/Bld) [Vol rate/Area] 72 mL/min/{1.73_m2} >60 [facility] Comment on above: Non- GFR Calc Glucose measurementOrdered B y: Pernell Philippe on 12-28-2024 Glucose [Mass/Vol] 96 mg/dL 74-106 [facility] IgA [Mass/Vol]Ordered By: Ra mike Philippe on 12-28-2024 Immunoglobulin A 258 mg/dL 87-352 [facility] IgEOrdered By: Pernell garcia on 12-28-2024 IgE 48 IU/mL 6-495 [facility] Immunoglobulin E 48 IU/mL 6-495 [facility] IgG [Mass/Vol]Ordered By: Ra mike Philippe on 12-28-2024 Immunoglobulin G 1495 mg/dL 586-1602 [facility] Immunoglobulin M measurement Ordered By: Pernelllula Philippe on 12-28-2024 Immunoglobulin M 131 mg/dL 26-217 [facility] Interpretation IEP [Interp]O rdered By: Pernell Philippe on 12-28-2024 Immunofixation Screen Comment: . [facility] Comment on above: Presence of monoclon al protein is unclear at this time. Suggestrepeat in 3 to 6 months if clinically indicated. Interpretation of serum or p lasma protein pattern by immunofixation (narrative resultOrdered By: Pernell Philippe on 12-28-2024 Protein Fractions Immunofixation Helder [Interp] Not Observed g/dL Not Observed [facility] Intrinsic factor abOrdered B y: Pernelllula Philippe on 12-28-2024 Intrinsic Factor Antibody 1.0 AU/mL 0.0-1.1 [facility] Comment on above: Performed at: [employer] [address] [id number] Director: [place] Poon PhD, Phone: [phone] at: [facility] [id number] Director: Jerrell Napoles MD, Phone: [phone] Soheila-1 antibody assayOrdered B y: Pernell Philippe on 12-28-2024 SOHEILA-1 Antibody <0.2 AI 0.0-0.9 [facility] Comment on above: Previous reported re sult: TNP AIEdited by: BIA on 01/03/25:0907 AMENDED REPORT 01/03/25 0907 ANTI-SOHEILA previously reported as: Test not performed Kentucky blue grass IgE Qn ( S)Ordered By: Pernell Philippe on 12-28-2024 Kentucky Blue (April) Grass IgE Ab <0.10 kU/L Class 0 [facility] LDHon 12-28-2024 LDH 169 U/L Normal 84-246 [facility] Comment on above: Order Comment: 1 Performed By: #### L 501.6710, L3410.1000, L3410.0900, L503.0105, L3100.6900, L5500.0550, L3100.3425, L504.2610, L3300.1800, L3410.2400, L3100.5440, L500.4050, L101.9900, L3300.1200, L5500.0300, L3200.1100 ####[facility] [id number] [place], [address] Laboratory - Chemistry and C hemistry - challengeOrdered By: Pernell Philippe on 12-28-2024 AST [Catalytic activity/Vol] 27 U/L 15-37 [facility] Laboratory - Miscellaneous t estsOrdered By: Pernell Philippe on 12-28-2024 Service comment (Unsp spec) [Interp] Comment . [facility] Comment on above: Levels of Specific I [...] 12-28-2024 LDH [Catalytic activity/Vol] 169 U/L 84-246 [facility] Mouse urine IgEOrdered By: Francoise Philippe on 12-28-2024 Mouse Urine Allergen IgE Antibody <0.10 kU/L Class 0 [facility] Comment on above: Performed at: [address] [id number] Director: [place] Poon PhD, Phone: [phone] at: [facility] [address] [id number] Director: Jerrell Napoles MD, Phone: [phone] Neutrophil cytoplasmic Ab.cl assic Qn (S)Ordered By: Pernell Philippe on 12-28-2024 Cytoplasmic ANCA (c-ANCA) Antibody <1:20 titer Neg:<1:20 [facility] Neutrophil cytoplasmic Ab.pe rinuclear IF (S) [Titer]Ordered By: Pernell Philippe on 12-28-2024 Perinuclear ANCA (p-ANCA) Antibody <1:20 titer Neg:<1:20 [facility] Comment on above: The presence of posi tive fluorescence exhibiting P-ANCA orC-ANCA patterns alone is not specific for the diagnosis ofWegener's Granulomatosis (WG) or microscopic polyangiitis.Decisions about treatment should not be based solely onANCA IFA results. The International ANCA Group Consensusrecommends follow up testing of positive sera with both LA-3 and MPO-ANCA enzyme immunoassays. As many as 5% serumsamples are positive only by EIA. Ref. AM J Clin Kbqcux5288;111:507-513. No Panel InformationOrdered By: Pernell Philippe on 12-28-2024 Addendum Document Comment . [facility] Comment on above: Protein electrophore sis scan will follow via computer,mail, or cable installation manager delivery. Parietal cell Ab Qn (S)Order ed By: Pernell Philippe on 12-28-2024 Anti-Parietal Cell Antibody 1.7 Units 0.0-20.0 [facility] Comment on above: Negative 0.0 - 20.0 Equivocal 20.1 - 24.9 Positive >24.9Parietal Cell Antibodies are found in 90% of patientswith pernicious anemia and 30% of first degreerelatives with pernicious anemia. Peanut IgE Qn (S)Ordered By: Pernell Philippe on 12-28-2024 Peanut Allergen (RAST) <0.10 kU/L Class 0 [facility] Pork IgE Qn (S)Ordered By: Francoise Philippe on 12-28-2024 Pork Allergen (RAST) <0.10 kU/L Class 0 [facility] Potassium measurementOrdered By: Pernell Philippe on 12-28-2024 Potassium [Moles/Vol] 4.1 mmol/L 3.5-5.1 [facility] Protein Fractions Immunofixa tion Helder [Interp]Ordered By: Pernell Philippe on 12-28-2024 M-Lalo (JAMAAL) Not Observed g/dL Not Observed [facility] DRILLING FLUIDS SPECIALIST abOrdered By: Pernell Rajan iend on 12-28-2024 DRILLING FLUIDS SPECIALIST Antibody <0.2 AI 0.0-0.9 [facility] Comment on above: Previous reported re sult: TNP AIEdited by: BIA on 01/03/25:0907 AMENDED REPORT 01/03/25 09 DRILLING FLUIDS SPECIALIST Ab previously reported as: Test not performed SCL-70 extractable nuclear A b Qn (S)Ordered By: Pernell Philippe on 12-28-2024 Scl-70 (Scleroderma) Antibody <0.2 AI 0.0-0.9 [facility] SS-A IgG antibody assayOrder ed By: Pernell Phiilppe on 12-28-2024 SS-A/Ro IgG Antibody < 0.2 AI 0.0-0.9 [facility] Comment on above: Previous reported re sult: TNP AIEdited by: BIA on 01/03/25:0907 AMENDED REPORT 01/03/25 09 Anti-SS-A previously reported as: Test not performed SS-B IgG antibody assayOrder ed By: Pernell Philippe on 12-28-2024 SS-B/La IgG Antibody < 0.2 AI 0.0-0.9 [facility] Comment on above: Previous reported re sult: TNP AIEdited by: BIA on 01/03/25:0907 AMENDED REPORT 01/03/25 09 Anti-SS-B previously reported as: Test not performed Gerald IgE Qn (S)Ordered By: Pernell Philippe on 12-28-2024 Gerald Allergen IgE Antibody <0.10 kU/L Class 0 [facility] Serum Bermuda grass IgE anti body assay (units/volume)Ordered By: Pernell Philippe on 12-28-2024 Bermuda grass IgE Qn (S) <0.10 kU/L Class 0 [facility] Serum DNA double strand anti body assay (units/volume)Ordered By: Pernell Philippe on 12-28-2024 DNA double strand Ab Qn (S) 1 [IU]/mL 0-9 [facility] Comment on above: Negative <5 Equivoca l 5 - 9 Positive >9 Serum Cymro plantain speci fic IgE antibody assayOrdered By: Pernell Philippe on 12-28-2024 Cymro Plantain Allergen (RAST) <0.10 kU/L Class 0 [facility] Serum house dust mi te IgE antibody assay (units/volume)Ordered By: Pernell Philippe on 12-28-2024 house dust mite IgE Qn (S) <0.10 kU/L Class 0 [facility] Serum Kentucky blue grass Ig E antibody assay (units/volume)Ordered By: Pernell Philippe on 12-28-2024 Kentucky blue grass IgE Qn (S) <0.10 kU/L Class 0 [facility] Serum Scl-70 antibody assay (units/volume)Ordered By: Pernell Philippe on 12-28-2024 SCL-70 extractable nuclear Ab Qn (S) <0.2 AI 0.0-0.9 [facility] Serum albumin/globulin ratio Ordered By: Pernell Philippe on 12-28-2024 Albumin/Globulin (JAMAAL) 0.9 0.7-1.7 [facility] Serum anion gap measurementO rdered By: Pernell Philippe on 12-28-2024 Anion gap [Moles/Vol] 8 mmol/L 5-15 [facility] Serum beef IgE antibody assa y (units/volume)Ordered By: Pernell Philippe on 12-28-2024 Beef IgE Qn (S) <0.10 kU/L Class 0 [facility] Serum cat dander IgE antibod y assay (units/volume)Ordered By: Pernell Philippe on 12-28-2024 Cat dander IgE Qn (S) <0.10 kU/L Class 0 [facility] Serum classic neutrophil cyt oplasmic antibody assay (units/volume)Ordered By: Pernell Philippe on 12-28-2024 Neutrophil cytoplasmic Ab.classic Qn (S) <1:20 titer Neg:<1:20 [facility] Serum codfish IgE antibody a ssay (units/volume)Ordered By: Pernell Philippe on 12-28-2024 Codfish IgE Qn (S) <0.10 kU/L Class 0 [facility] Serum common/short ragweed s pecific IgE antibody assayOrdered By: Pernell Philippe on 12-28-2024 Common Ragweed (Short) Allergen <0.10 kU/L Class 0 [facility] Serum corn IgE antibody assa y (units/volume)Ordered By: Pernell Philippe on 12-28-2024 [place] IgE Qn (S) <0.10 kU/L Class 0 [facility] Serum cow milk IgE antibody assay (units/volume)Ordered By: Pernell Philippe on 12-28-2024 Cow milk IgE Qn (S) <0.10 kU/L Class 0 [facility] Serum dog epithelium IgE ant ibody assay (units/volume)Ordered By: Pernell Philippe on 12-28-2024 Dog epithelium IgE Qn (S) <0.10 kU/L Class 0 [facility] Serum globulin measurement ( mass/volume)Ordered By: Pernell Philippe on 12-28-2024 Globulin (S) [Mass/Vol] 4.1 g/dL High 2.2-3.9 [facility] Serum mussel specific IgE an tibody assayOrdered By: Pernell Philippe on 12-28-2024 Mussel Allergen IgE Antibody <0.10 kU/L Class 0 [facility] Serum or plasma IgA measurem ent (mass/volume)Ordered By: Pernell Philippe on 12-28-2024 IgA [Mass/Vol] 258 mg/dL 87-352 [facility] Serum or plasma IgG measurem ent (mass/volume)Ordered By: Pernell Philippe on 12-28-2024 IgG [Mass/Vol] 1495 mg/dL 586-1602 [facility] Serum or plasma alanine benoit otransferase (ALT) measurementOrdered By: Pernell Philippe on 12-28-2024 ALT [Catalytic activity/Vol] 26 U/L 13-56 [facility] Serum or plasma albumin bernard urement (mass/volume)Ordered By: Pernell Philippe on 12-28-2024 Albumin [Mass/Vol] 4.1 g/dL 3.2-5.0 [facility] Serum or plasma alkaline bridget sphatase measurementOrdered By: Pernell Philippe on 12-28-2024 ALP [Catalytic activity/Vol] 26 U/L Low 45-117 [facility] Serum or plasma alpha 1 glob ulin measurement by electrophoresis (mass/volume)Ordered By: Pernell Philippe on 12-28-2024 Alpha 1 globulin Elph [Mass/Vol] 0.3 g/dL 0.0-0.4 [facility] Alpha 1 globulin Elph [Mass/Vol] 0.9 g/dL 0.4-1.0 [facility] Serum or plasma angiotensin converting enzyme measurement (enzymatic activity/volume)Ordered By: Pernell Philippe on 12-28-2024 Angiotensin converting enzyme [Catalytic activity/Vol] 56 U/L 14-82 [facility] Serum or plasma beta globuli n measurement by electrophoresis (mass/volume)Ordered By: Pernell Philippe on 12-28-2024 Beta globulin Elph [Mass/Vol] 1.2 g/dL 0.7-1.3 [facility] Serum or plasma calcium bernard urement (mass/volume)Ordered By: Pernell Philippe on 12-28-2024 Calcium [Mass/Vol] 9.4 mg/dL 8.5-10.1 [facility] Serum or plasma creatinine m easurement (mass/volume)Ordered By: Pernell Philippe on 12-28-2024 Creatinine [Mass/Vol] 0.84 mg/dL 0.55-1.02 [facility] Comment on above: The validity of the calculated GFR & GFRAA in patients over 70 years has not been determined. Clinical correlation is essential. Serum or plasma gamma globul in measurement by electrophoresis (mass/volume)Ordered By: Pernell Philippe on 12-28-2024 Gamma globulin Elph [Mass/Vol] 1.6 g/dL 0.4-1.8 [facility] Serum or plasma immunoelectr ophoresis interpretation (nominal result)Ordered By: Pernell Philippe on 12-28-2024 Interpretation IEP [Interp] Comment: . [facility] Comment on above: Presence of monoclon al protein is unclear at this time. Suggestrepeat in 3 to 6 months if clinically indicated. Serum or plasma protein bernard urement (mass/volume)Ordered By: Pernell Philippe on 12-28-2024 Protein [Mass/Vol] 7.7 g/dL 6.0-8.5 [facility] Serum or plasma urea nitroge n measurement (mass/volume)Ordered By: Pernell Philippe on 12-28-2024 Urea nitrogen [Mass/Vol] 6 mg/dL Low - [facility] Serum parietal cell antibody assay (units/volume)Ordered By: Pernell Philippe on 12-28-2024 Parietal cell Ab Qn (S) 1.7 Units 0.0-20.0 [facility] Comment on above: Negative 0.0 - 20.0 Equivocal 20.1 - 24.9 Positive >24.9Parietal Cell Antibodies are found in 90% of patientswith pernicious anemia and 30% of first degreerelatives with pernicious anemia. Serum peanut IgE antibody as say (units/volume)Ordered By: Pernell Philippe on 12-28-2024 Peanut IgE Qn (S) <0.10 kU/L Class 0 [facility] Serum perinuclear neutrophil cytoplasmic antibody titer by immunofluorescenceOrdered By: Pernell Philippe on 12-28-2024 Neutrophil cytoplasmic Ab.perinuclear IF (S) [Titer] <1:20 titer Neg:<1:20 [facility] Comment on above: The presence of posi tive fluorescence exhibiting P-ANCA orC-ANCA patterns alone is not specific for the diagnosis ofWegener's Granulomatosis (WG) or microscopic polyangiitis.Decisions about treatment should not be based solely onANCA IFA results. The International ANCA Group Consensusrecommends follow up testing of positive sera with both LA-3 and MPO-ANCA enzyme immunoassays. As many as 5% serumsamples are positive only by EIA. Ref. AM J Clin [id number];111:507-513. Serum pork IgE antibody assa y (units/volume)Ordered By: Pernell Philippe on 12-28-2024 Pork IgE Qn (S) <0.10 kU/L Class 0 [facility] Serum salmon IgE antibody as say (units/volume)Ordered By: Pernell Philippe on 12-28-2024 Gerald IgE Qn (S) <0.10 kU/L Class 0 [facility] Serum shrimp specific IgE an tibody assayOrdered By: Pernell Philippe on 12-28-2024 Shrimp Allergen <0.10 kU/L Class 0 [facility] Serum soybean IgE antibody a ssay (units/volume)Ordered By: Pernell Philippe on 12-28-2024 Soybean IgE Qn (S) <0.10 kU/L Class 0 [facility] Serum tissue transglutaminas e (tTG) IgA antibody assay (units/volume)Ordered By: Pernell Philippe on 12-28-2024 tTG IgA Qn (S) <2 U/mL 0-3 [facility] Comment on above: Negative 0 - 3 Weak Positive 4 - 10 Positive >10 Tissue Transglutaminase (tTG) has been identified as the endomysial antigen. Studies have demonstr- ated that endomysial IgA antibodies have over 99% specificity for gluten sensitive enteropathy. Serum tuna IgE antibody assa y (units/volume)Ordered By: Pernell Philippe on 12-28-2024 Tuna IgE Qn (S) <0.10 kU/L Class 0 [facility] Serum wheat IgE antibody ass ay (units/volume)Ordered By: Pernell Philippe on 12-28-2024 Wheat IgE Qn (S) <0.10 kU/L Class 0 [facility] Serum white elm IgE antibody assay (units/volume)Ordered By: Pernell Philippe on 12-28-2024 White Elm IgE Qn (S) <0.10 kU/L Class 0 [facility] Serum white oak IgE antibody assay (units/volume)Ordered By: Pernell Philippe on 12-28-2024 [place] IgE Qn (S) <0.10 kU/L Class 0 [facility] Serum whole egg IgE antibody assay (units/volume)Ordered By: Pernell Philippe on 12-28-2024 Whole Egg IgE Qn (S) <0.10 kU/L Class 0 [facility] Service comment (Unsp spec) [Interp]Ordered By: Pernell Philippe on 12-28-2024 RAST Comment Comment . [facility] Comment on above: Levels of Specific I [...] on 12-28-2024 SM Antibody <0.2 AI 0.0-0.9 [facility] Comment on above: Previous reported re sult: TNP AIEdited by: BIA on 01/03/25:0907 AMENDED REPORT 01/03/25906 BÁRBARA Ab previously reported as: Test not performed Sodium levelOrdered By: Junior Lim on 12-28-2024 Sodium [Moles/Vol] 138 mmol/L 136-145 [facility] Soybean IgE Qn (S)Ordered By : Pernell Philippe on 12-28-2024 Soybean Allergen (RAST) <0.10 kU/L Class 0 [facility] Total proteinOrdered By: Roberto Philippe on 12-28-2024 Protein [Mass/Vol] 8.1 g/dL 6.4-8.2 [facility] Tuna IgE Qn (S)Ordered By: Francoise Philippe on 12-28-2024 Tuna Allergen (RAST) <0.10 kU/L Class 0 [facility] Vitamin B12on 12-28-2024 Cobalamin (Vitamin B12) [Mass/Vol] 333 pg/mL Normal 211-911 [facility] Comment on above: Performed By: #### L 501.6710, L3410.1000, L3410.0900, L503.0105, L3100.6900, L5500.0550, L3100.3425, L504.2610, L3300.1800, L3410.2400, L3100.5440, L500.4050, L101.9900, L3300.1200, L5500.0300, L3200.1100 ####[facility] [id number] [place], [address] Vitamin B12 measurementOrder ed By: Pernell Philippe on 12-28-2024 Cobalamin (Vitamin B12) [Mass/Vol] 333 pg/mL 211-911 [facility] Wheat IgE Qn (S)Ordered By: Pernell Philippe on 12-28-2024 Wheat Allergen (RAST) <0.10 kU/L Class 0 [facility] White Elm IgE Qn (S)Ordered By: Pernelllula Philippe on 12-28-2024 White Elm Allergen <0.10 kU/L Class 0 [facility] [place] IgE Qn (S)Ordered By: Pernelllula Philippe on 12-28-2024 [place] Tree Allergen <0.10 kU/L Class 0 [facility] Whole Egg IgE Qn (S)Ordered By: Pernell Philippe on 12-28-2024 Egg Whole Allergen <0.10 kU/L Class 0 [facility] tTG IgA Qn (S)Ordered By: Ra mike Philippe on 12-28-2024 Tissue Transglutaminase IgA Ab <2 U/mL 0-3 [facility] Comment on above: Negative 0 - 3 Weak Positive 4 - 10 Positive >10 Tissue Transglutaminase (tTG) has been identified as the endomysial antigen. Studies have demonstr- ated that endomysial IgA antibodies have over 99% specificity for gluten sensitive enteropathy. Esophagus Dual Contraston Esophagus Dual Contrast [facility] Imaging Services [address] [place] [address] Esophagus Dual Contrast MR#: [id number] Acct: [id number] Name: ЮЛИЯ PRASAD Rep #: [id number] : 1955 F 69 From: Pavel retana MD PCP: Alexus Machuca DO Status: REG CLI Study: Esophagus Dual Contrast Date of Exam: 10/18/24 Exam# [id number] Ordering Dr: Juarez Harris MD [id number] STUDY: X-RAY - ESOPHAGUS (BARIUM SWALLOW) WITH [...] Signed: Pavel Carrero MD at 10:57 EST Reading Location ID and State: [facility] / [place] , Service support , CC: Dr. 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 No Haemophilus, Streptococcus pneumoniae, beta-hemolytic Streptococcus or Staphylococcus aureus isolated. Normal [facility] Comment on above: Performed By: #### M 100.1000 #### [facility] Laboratory [facility] [place], [address] CNOVon 09-10-2024 [facility] Office Visit (UCWSTR ) -------- JAGJITЮЛИЯ Burgess ([id number]) 1955 F Date Time Provider Department 09/10/24 2:30 PM JUAREZ VELASCO [facility] During your visit today, we recorded the [...] GI consult. She has seen ENT in [place] and may follow up there for neck tenderness. Add an OTC antihistamine such as claritin or zyrtec to help with allergy related head congestion. Patient has been attempting to get re-established with primary care but currently cannot get an appointment sooner than January. Juarez Velasco MD Allergies As of Date: 09/10/2024 Noted Allergy React (more content not included)... Normal [facility] STREP A MOLECULAR (POC)on Procedural Control Valid [facility] Strep A (POCT) Negative Negative [facility] CNOVSPon 08-17-2024 CNOVSP Visit (SP) Office (HEMJARROD) -------- ЮЛИЯ PRASAD ([id number]) 1955 F Date Time Provider Department 08/17/24 4:00 PM CRISTHIAN SMITH During your visit today, we [...] referral here. Had lab work done through [facility] that showed an increase in serum [...] nodules PAD (peripheral artery disease) ([facility]) 03/10/2017 02/06/2022 PVR ank/jackson/toe bilat: RIGHT [...] DX W/COLLJ SPEC WHEN PFRMD Done in [place] unable to obtain COLONOSCOPY FLX DX W/COLLJ [...] mg tablet (more content not included)... Normal [facility] CNPNon 08-17-2024 CNPN Telephone (HEMAWS) -------- ЮЛИЯ PRASAD ([id number]) 1955 F Date Time Provider Department 08/17/24 CRISTHIAN SMITH During your visit today, we recorded the following information about you: Gabbie Tidwell 08/17/2024 4:40 PM Signed Patient was seen by Dequan/Hermes until a few months ago. Patient left [facility] as she thought her insurance wasn't in network with [facility]. Patient's insurance is in network and [...] Discard Pen After - blood sugar diagnostic (IntiguaTOUCH VERIO TEST STRIPS) test strip Test blood [...] loss [ (more content not included)... Normal [facility] CNPNon 08-10-2024 CNPN Telephone (FAMPWS) -------- ЮЛИЯ PRASAD ([id number]) 1955 F Date Time Provider Department 08/10/24 [facility] During your visit today, we recorded the following information about you: Carolina Hankins RN 08/10/2024 11:48 AM Signed Patient was transferred to this nurse, after scheduling an appt with Ring Striker to est care, for Dec. Patient wants sooner appt to est care. Scheduled patient with Dr. Carranza on 09-21-24 at 7 am. This was the only time this nurse could get. This appt, makes 2 appts to est care, on this day, for doctor. Please advise patient if this date/time is not ok [phone]. States she is diabetic, has issues with [...] have less than 2 new patients scheduled. Carolina Hankins, BERE 08/10/2024 4:20 PM Signed Left detailed vm [...] Date Reviewed: 2024 Reviewed by: Orville Tavares APRN.FLATWORK SUPERVISOR - Fully Assessed Reason for Visit: Patient [...] Discard Pen After - blood sugar diagnostic (IntiguaTOUCH VERIO TEST STRIPS) test strip Test blood [...] [L82.0]12/09/2012 12/05/2017 (more content not included)... Normal [facility] BONE MARROW ANALYSISon 08-05 ADDENDUM 1: Normal [facility] Comment on above: Order Comment: Speci men Type: BONE MARROW SPECIMENOrdering Facility: [facility] Address: [address] [place] [address] Result Comment: This addendum is to note [...] 5:11 PM Performed By: #### B MRT ####[facility] LABIA [id number] [address] [place] CASE REPORT Normal [facility] Comment on above: Order Comment: Giovana alejandre Type: BONE MARROW SPECIMENOrdering Facility: [facility] Address: [address] [place] [address] Result Comment: Bone Marrow Pathology Report Case: [id number] Authorizing Provider: Cristhian Smith DO Collected: 2024 01:07 PM Ordering Location: Hematology/Oncology Received: 2024 02:33 PM Pathologist: Eriberto Plaza MD Specimens: A) - Bone Marrow, Aspirate, Right, Posterior, Iliac Crest B) - Bone Marrow, Biopsy, Right, Posterior, Iliac Crest C) - Bone Marrow, Clot, Right, Posterior, Iliac Crest D) - Blood Performed By: #### B MRT ####[facility] LABIA [id number] [address] [place] DIAGNOSIS COMMENT Normal [facility] Comment on above: Order Comment: Giovana alejandre Type: BONE MARROW SPECIMENOrdering Facility: [facility] Address: [address] [place] [address] Result Comment: The marrow was performed to [...] been determined by the performing laboratory within [facility]???s [facility] Pathology and Laboratory Medicine Department ([facility], [facility], [facility], [facility], [facility], [facility], or [facility]) in a manner consistent with CLIA requirements. One or more of these tests have not been cleared or approved by the FDA. [facility] is regulated under CLIA as qualified to perform high-complexity testing. These tests are used for clinical purposes. They should not be regarded as investigational or for research. Positive and negative controls stain appropriately. Performed By: #### B MRT ####[facility] LABCLIA [id number] [place] [address] [place] FINAL DIAGNOSIS Normal [facility] Comment on above: Order Comment: Speci men Type: BONE MARROW SPECIMENOrdering Facility: [facility] Address: [address] [place] [address] Result Comment: A-C. Bone marrow, aspirate, touch imprint, clot section and core biopsy: - Normocellular marrow (40%) with trilineage hematopoiesis. - Adequate megakaryocytes. - Decreased to absent stainable iron. - Polytypic plasma cell hyperplasia (see comment). D. Peripheral blood smear: - No diagnostic abnormality. KST/ 08/06/2024 Performed By: #### B MRT ####[facility] LABCLIA [id number] [place] [address] [place] FINAL PERFORMING LAB Normal [facility] Comment on above: Order Comment: Speci men Type: BONE MARROW SPECIMENOrdering Facility: [facility] Address: [address] [place] [address] Result Comment: Diag nostic interpretation performed at [facility], [address] [place] [address] CLIA# [id number] Recreation Officer: William Hernández M.D. Performed By: #### B MRT ####[facility] LABCLIA [id number] [place] [address] [place] GROSS DESCRIPTION Normal [facility] Comment on above: Order Comment: Speci men Type: BONE MARROW SPECIMENOrdering Facility: [facility] Address: [address] [place] [address] Result Comment: A. B one Marrow, Aspirate, [...] peripheral blood smear. Submitted for light microscopy. 2024 8:48 PM Gross examination performed at [facility], [address] [place] [address] Performed By: #### B MRT ####[facility] LABCLIA [id number] [place] [address] [place] MICROSCOPIC DESCRIPTION Normal [facility] Comment on above: Order Comment: Speci men Type: BONE MARROW SPECIMENOrdering Facility: [facility] Address: [facility] [place] [address] Result Comment: FERNY PHERAL BLOOD: CBC (2024) [...] KST/ 08/06/2024 Performed By: #### B MRT ####[facility] LABCLIA [id number] [place] [address] [place] BONE MARROW BIOPSYon Orville Ascencio APRN.FLATWORK SUPERVISOR 2024 1:50 PM BONE MARROW BIOPSY Date/Start Time: 2024 12:52 PM Date/Stop Time: 2024 1:09 PM Performed by: Orville Tavares APRN.RADHA Authorized by: Orville Tavares APRN.CNP Where was Patient When this Procedure was Performed [facility] Informed Consent Consent Obtained: Written [place] Protocol A moment to CARE was completed. [...] Biopsy Site: Right posterior sperior iliac crest [employer] biopsy system was used. Using aseptic technique, [...] Plan of Care Visit completed when applicable [facility] BONE MARROW CHROMOSOME ANALo n 2024 CHROMOSOME BM Normal [facility] Comment on above: Order Comment: Speci pili Type: BONE MARROW SPECIMENOrdering Facility: [facility] Address: [address] [place] [address] Result Comment: Licha soto Accession Number: [id number] Doctor: CRISTHIAN SMITH Pathologist: [facility] Surgical Pathology No: [id number] Clinical diagnosis: Monoclonal Gammopathy Specimen Type: Bone [...] reviewed by Shira Zavala, Ph.D. Performed by [facility] Molecular Pathology and Cytogenomics ([id number]), Division of Laboratory Medicine Kali Wilson Department of Pathology & Laboratory Medicine, [facility] [place] [address] [place] [address]. [place] [address] Toll free: Performed By: #### C [facility] ####[facility] ILLUM[address] [facility] CLAIRSCLIA [id number] [place] [address] [place] CBC W Auto Differential pane l (Bld)on 2024 Basophils (Bld) [#/Vol] 0.04 10*3/uL Normal <0.11 [facility] Comment on above: Order Comment: Giovana alejandre Type: BLOOD SPECIMENOrdering Facility: [facility] Address: [address] [place] [address] Performed By: #### 5 7021-8 ####[facility] MILLWNCLIA [id number] [place] [address] [place] Basophils/100 WBC (Bld) 0.5 % Normal [facility] Comment on above: Order Comment: Speci men Type: BLOOD SPECIMENOrdering Facility: [facility] Address: [address] [place] [address] Performed By: #### 5 7021-8 ####[facility]ITALLIA [id number] [place] [address] [place] Differential cell count method Nom (Bld) Auto Normal [facility] Comment on above: Order Comment: Speci men Type: BLOOD SPECIMENOrdering Facility: [facility] Address: [address] [place] [address] Performed By: #### 5 7021-8 ####[facility] [id number] [place] [address] [place] Eosinophils (Bld) [#/Vol] 0.07 10*3/uL Normal <0.46 [facility] Comment on above: Order Comment: Speci men Type: BLOOD SPECIMENOrdering Facility: [facility] Address: [address] [place] [address] Performed By: #### 5 7021-8 ####[facility]ITALLIA [id number] [place] [address] [place] Eosinophils/100 WBC (Bld) 0.8 % Normal [facility] Comment on above: Order Comment: Speci men Type: BLOOD SPECIMENOrdering Facility: [facility] Address: [address] [place] [address] Performed By: #### 5 7021-8 ####[facility] H[facility]PITALNCLIA [id number] [place] [address] [place] Erythrocyte distribution width (RBC) [Ratio] 14.1 % Normal 11.5-15.0 [facility] Comment on above: Order Comment: Speci men Type: BLOOD SPECIMENOrdering Facility: [facility] Address: [address] [place] [address] Performed By: #### 5 7021-8 ####[facility] [id number] [place] [address] [place] Hematocrit (Bld) [Volume fraction] 36.9 % Normal 36.0-46.0 [facility] Comment on above: Order Comment: Speci men Type: BLOOD SPECIMENOrdering Facility: [facility] Address: [address] [place] [address] Performed By: #### 5 7021-8 ####[facility] [id number] [place] [address] [place] Hemoglobin (Bld) [Mass/Vol] 12.4 g/dL Normal 11.5-15.5 [facility] Comment on above: Order Comment: Speci men Type: BLOOD SPECIMENOrdering Facility: [facility] Address: [address] [place] [address] Performed By: #### 5 7021-8 ####[facility] [id number] [place] [address] [place] Immature granulocytes (Bld) [#/Vol] 10*3/uL Normal <0.10 [facility] Comment on above: Order Comment: Speci men Type: BLOOD SPECIMENOrdering Facility: [facility] Address: [address] [place] [address] Performed By: #### 5 7021-8 ####[facility] [id number] [place] [address] [place] Immature granulocytes/100 WBC (Bld) 0.2 % Normal [facility] Comment on above: Order Comment: Speci men Type: BLOOD SPECIMENOrdering Facility: [facility] Address: [address] [place] [address] Performed By: #### 5 7021-8 ####[facility] [id number] [place] [address] [place] Lymphocytes (Bld) [#/Vol] 2.36 10*3/uL Normal 1.00-4.00 [facility] Comment on above: Order Comment: Speci men Type: BLOOD SPECIMENOrdering Facility: [facility] Address: [address] [place] [address] Performed By: #### 5 7021-8 ####[facility] [id number] [place] [address] [place] Lymphocytes/100 WBC (Bld) 27.0 % Normal [facility] Comment on above: Order Comment: Speci men Type: BLOOD SPECIMENOrdering Facility: [facility] Address: [address] [place] [address] Performed By: #### 5 7021-8 ####[facility] [id number] [place] [address] [place] MCH (RBC) [Entitic mass] 29.8 pg Normal 26.0-34.0 [facility] Comment on above: Order Comment: Speci men Type: BLOOD SPECIMENOrdering Facility: [facility] Address: [address] [place] [address] Performed By: #### 5 7021-8 ####[facility]ITALLIA [id number] [place] [address] [place] MCHC (RBC) [Mass/Vol] 33.6 g/dL Normal 30.5-36.0 [facility] Comment on above: Order Comment: Speci men Type: BLOOD SPECIMENOrdering Facility: [facility] Address: [address] [place] [address] Performed By: #### 5 7021-8 ####[facility] HOSPITALGABBYLIA [id number] [place] [address] [place] MCV (RBC) [Entitic vol] 88.7 fL Normal 80.0-100.0 C [facility] Comment on above: Order Comment: Speci men Type: BLOOD SPECIMENOrdering Facility: [facility] Address: [address] [place] [address] Performed By: #### 5 7021-8 ####[facility] HOSPITALRAJINDERA [id number] [place] [address] [place] Monocytes (Bld) [#/Vol] 0.47 10*3/uL Normal <0.87 [facility] Comment on above: Order Comment: Speci men Type: BLOOD SPECIMENOrdering Facility: [facility] Address: [address] [place] [address] Performed By: #### 5 7021-8 ####[facility] [id number] [place] [address] [place] Monocytes/100 WBC (Bld) 5.4 % Normal C [facility] Comment on above: Order Comment: Speci men Type: BLOOD SPECIMENOrdering Facility: [facility] Address: [address] [place] [address] Performed By: #### 5 7021-8 ####[facility] HOSPITALLIA [id number] [place] [address] [place] Neutrophils (Bld) [#/Vol] 5.78 10*3/uL Normal 1.45-7.50 [facility] Comment on above: Order Comment: Speci men Type: BLOOD SPECIMENOrdering Facility: [facility] Address: [address] [place] [address] Performed By: #### 5 7021-8 ####[facility] HOSPITALNCLIA [id number] [place] [address] [place] Neutrophils/100 WBC (Bld) 66.1 % Normal [facility] Comment on above: Order Comment: Speci men Type: BLOOD SPECIMENOrdering Facility: [facility] Address: [address] [place] [address] Performed By: #### 5 7021-8 ####[facility] [id number] [place] [address] [place] Nucleated RBC (Bld) [#/Vol] 10*3/uL Normal <0.01 [facility] Comment on above: Order Comment: Speci men Type: BLOOD SPECIMENOrdering Facility: [facility] Address: [address] [place] [address] Performed By: #### 5 7021-8 ####[facility] [id number] [place] [address] [place] Nucleated RBC/100 WBC (Bld) [Ratio] 0.0 /100 WBC Normal [facility] Comment on above: Order Comment: Speci men Type: BLOOD SPECIMENOrdering Facility: [facility] Address: [address] [place] [address] Performed By: #### 5 7021-8 ####[facility] [id number] [place] [address] [place] Platelet mean volume (Bld) [Entitic vol] 9.6 fL Normal 9.0-12.7 [facility] Comment on above: Order Comment: Speci men Type: BLOOD SPECIMENOrdering Facility: [facility] Address: [address] [place] [address] Performed By: #### 5 7021-8 ####[facility] [id number] [place] [address] [place] Platelets (Bld) [#/Vol] 222 10*3/uL Normal 150-400 [facility] Comment on above: Order Comment: Speci men Type: BLOOD SPECIMENOrdering Facility: [facility] Address: [address] [place] [address] Performed By: #### 5 7021-8 ####[facility] MARGUERITELUNENBURGNCLIA [id number] [place] [address] [place] RBC (Bld) [#/Vol] 4.16 10*6/uL Normal 3.90-5.20 [facility] Comment on above: Order Comment: Speci men Type: BLOOD SPECIMENOrdering Facility: [facility] Address: [address] [place] [address] Performed By: #### 5 7021-8 ####[facility] MARGUERITELUNENBURGNCLIA [id number] [place] [address] [place] WBC (Bld) [#/Vol] 8.74 10*3/uL Normal 3.70-11.00 [facility] Comment on above: Order Comment: Speci men Type: BLOOD SPECIMENOrdering Facility: [facility] Address: [address] [place] [address] Performed By: #### 5 7021-8 ####[facility] HOSPITALNCCARLOSA [id number] [place] [address] [place] CNOVSPon 2024 CNOVS Visit (SP) Office (HEMJARROD) -------- ЮЛИЯ PRASAD ([id number]) 1955 F Date Time Provider Department 08/05/24 [...] was Patient When this Procedure was Performed [facility] Informed Consent Consent Obtained: Written [place] Protocol A moment to CARE was completed. [...] Diagnosis:Monoclonal gammopathy [D47.2] Order(s):BONE MARROW ASPIRATE ANDBIOPSY [[id number]] Order #: [id number]: 1 BONE MARROW ANALYSIS [SQBMRT] Order #: [id number]. #:[id number] BONE MARROW CHROMOSOME ANAL [SQCHRBMH] Order #: [id number]. #:[id number] DNA EXTRACTION BONE MARROW (BUFFY COAT) [SQNUCBUF] Order #: [id number]. #:[id number] FLOW CYTOMETRY FOR LEUKEMIA/LYMPHOMA (FCLL) [PVH2803] Order #: [id number]. #:[id number] FISH FOR PLASMA CELL MYELOMA [SQFSHPCM] Order #: [id number]. #:[id number] FLOW CYTOMETRY FOR LEUKEMIA/LYMPHOMA (FCLL) PERFORMABLE [XRN1748] Reflex Order#: [id number] (Ord#:[id number])Spec. #:[id number] (more content not included)... Normal [facility] DNA EXTRACTION BONE MARROW ( BUFFY COAT)on 2024 DNA EXTRACTION BONE MARROW (BUFFY COAT) Normal [facility] Comment on above: Order Comment: Speci men Type: BONE MARROW SPECIMENOrdering Facility: [facility] Address: [address] [place] [address] Result Comment: This specimen was received and successfully processed for future DNA purification should molecular testing be needed. Specimens will be available for 3 years from date of collection. To order testing on this specimen for [facility] patients, please place an [facility] order for DNA and RNA Clinical Testing (SQNUCADD). To order testing for patients outside of the [facility] system, please request DNA and RNA for Clinical Testing, order code NUCADD. If additional paperwork is required for testing, please send completed forms via secure email to . Performed By: #### N UCBUF ####[facility] [employer] - A New Musical [facility] CLAIRSCLIA [id number] [address] [place] FISH FOR PLASMA CELL MYELOMA on 2024 FISH FOR PLASMA CELL MYELOMA Normal [facility] Comment on above: Order Comment: Speci men Type: BONE MARROW SPECIMENOrdering Facility: [facility] Address: [address] [place] [address] Result Comment: FISH for Plasma Cell Myeloma Laboratory Accession Number: [id number] Case: [id number] Sample type: Bone Marrow Aspirate Number of [...] from the Clinical Advisory Committee. Blood. 2021 15;140(11):0803-8525 (PMID: 09012411) 2) Sergio SK, Gustavo SV. The multiple myelomas - current concepts in cytogenetic classification and therapy. Nati Rev Oncol. 2018;15(7):409-421 (PMID: 42657725) 3) Gaston JR et al. Management of newly diagnosed symptomatic multiple myeloma: updated [employer] Stratification of Myeloma and Risk- Adapted Therapy (mSMART) consensus guidelines 2013. [employer] Clin Proc 2013 Feb;88(4):360-76 (PMID: 67299088) 4) Beatris PIERRE et al. Consensus recommendations for risk stratification in multiple myeloma: report of the International Myeloma Workshop Consensus Panel 2. Blood 2010March 14;117(18):7111-6524 (PMID: 95980767) METHODOLOGY: Bone marrow plasma cells were isolated by CD138 purification ([employer], [employer], [place], [place], [place]). Interphase fluorescence in situ hybridization was performed using probes to the CDKN2C locus on chromosome 1p32 ([employer] V[employer]), CKS1B locus on chromosome 1q21 (TRDataysis/CytoMeizu), chromosome 9 centromere ([employer]), t(11;14) (IGH/CCND1) dual color dual fusion probe ([employer] V[employer]), 13q14 (Cellmemore, [facility], [place]), IGH locus on chromosome 14q32 (LSI IGH Dual Color, Break-Apart, [employer]red Vysis), chromosome 15 centromere ([employer]red V[employer]), and the TP53 locus on chromosome 17p13 ([employer]red Vysis). 100 plasma cells were scored whenever possible. DISCLAIMER: This test was developed and its performance characteristics determined by [facility]'s Pathology and Laboratory Medicine Department. It has not been cleared or approved by the FDA. [facility] Pathology and Laboratory Medicine Department is regulated under CLIA as certified to perform high-complexity testing. This test is used for clinical purposes. It should not be regarded as investigational or for research. Interpretation performed at [facility], [address] [place] [address]. CLIA Number: [id number] As reviewed by Barbie Nash MD, PhD Performed By: #### F SHP ####[facility] ILLUMINA LIMSCLIA [id number] [place] [address] [place] FLOW CYTOMETRY FOR LEUKEMIA/ LYMPHOMA (FCLL) PERFORMABLEon 2024 FLOW CYTOMETRY ORDER STATUS Results will be reported under F case ID when completed Normal [facility] Comment on above: Order Comment: Speci men Type: BONE MARROW SPECIMENOrdering Facility: [facility] Address: [address] [place] [address] Performed By: #### F CLLP, FCLLRFLX ####[facility] LABCLIA [id number] [place] [address] [place] FLOW CYTOMETRY FOR LEUKEMIA/ LYMPHOMA (FCLL) REFLEXon 2024 DIAGNOSIS COMMENT Normal [facility] Comment on above: Order Comment: Speci men Type: BONE MARROW SPECIMENOrdering Facility: [facility] Address: [address] [place] [address] Result Comment: This assay is not designed to detect minimal residual disease or myeloid antigen maturational patterns. This test was developed and its performance characteristics determined by [facility]'s [facility] Pathology and Laboratory Medicine [place] (-PLND). It has not been cleared or approved by the FDA. [facility] is regulated under CLIA as qualified to perform high-complexity testing. This test is used for clinical purposes. It should not be regarded as investigational or for research. Performed By: #### F CLLP, FCLLRFLX ####[facility] LABCLIA [id number] [address] OF [facility] FINAL PERFORMING LAB Normal [facility] Comment on above: Order Comment: Speci men Type: BONE MARROW SPECIMENOrdering Facility: [facility] Address: [address] [place] [address] Result Comment: Diag nostic interpretation performed at [facility], [address] [place] [address] CLIA# [id number] Recreation Officer: William Hernández M.D. Performed By: #### F CLLP, FCLLRFLX ####[facility] LABCLIA [id number] [address] FLOW CYTOMETRY RESULTS Normal [facility] Comment on above: Order Comment: Speci men Type: BONE MARROW SPECIMENOrdering Facility: [facility] Address: [address] [place] [address] Result Comment: Spec imen type: Bone Marrow [...] unremarkable. KST/ 08/06/2024 Performed By: #### F CLLP, JOSÉ MIGUELRFLX ####[facility] LABCLIA [id number] [address] [place] GROSS DESCRIPTION A. Bone Marrow Normal [facility] Comment on above: Order Comment: Giovana alejandre Type: BONE MARROW SPECIMENOrdering Facility: [facility] Address: [address] [place] [address] Result Comment: Rece ived 4 ml Bm in heparin. Performed By: #### F CLLP, JOSÉ MIGUELRFLX ####[facility] LABCLIA [id number] [address] [place] INTERPRETATION Normal [facility] Comment on above: Order Comment: Giovana alejandre Type: BONE MARROW SPECIMENOrdering Facility: [facility] Address: [address] [place] [address] Result Comment: Ther e is no evidence of involvement by a lymphoproliferative disorder, plasma cell neoplasm, or abnormal blast population. Correlation with the clinical laboratory, radiologic, and bone marrow histopathologic findings is suggested. Performed By: #### F CLLP, FCJOSSELINRFLorraineX ####[facility] LABCLIA [id number] [address] [place] HIGH SENSITIVITY TROPONIN To n 2024 Troponin T.cardiac High sensitivity method [Mass/Vol] 8 ng/L Normal <12 [facility] Comment on above: Order Comment: Speci men Type: BLOOD SPECIMENOrdering Facility: [facility] Address: [address] [place] [address] Performed By: #### 3 3762-6, HSTNT ####[facility] LABCLIA [id number] [address] [place] NT-proBNP [facility] 08-05 Natriuretic peptide.B prohormone N-Terminal [Mass/Vol] 127 pg/mL High <125 [facility] Comment on above: Order Comment: Giovana pili Type: BLOOD SPECIMENOrdering Facility: [facility] Address: [address] [place] [address] Performed By: #### 3 3762-6, HSTNT ####[facility] LABCLIA [id number] [address] OF [place] CNPCristy 08-02-2024 [facility]HEMAWS) -------- ЮЛИЯ PRASAD ([id number]) 1955 F Date Time Provider Department 08/02/24 CRISTHIAN SMITH HEMJARROD During your visit today, we recorded the following information about you: Rosie Tam 08/02/2024 10:08 AM Signed Patient is scheduled for BMBX on 08/05. She states Dr Smith was going to prescribe a medication to keep her calm. She believes it as Ativan. Patient uses [facility] in [place] for pharm. mEily Tirado LPN 08/02/2024 10:44 AM Signed Rx [...] Fully Assessed Reason for Visit: Patient Question [1477] Primary Visit Diagnosis:Monoclonal gammopathy [D47.2] Order(s):LORazepam (ATIVAN) [...] of fa (more content not included)... Normal [facility] MR Cervical spine WO and W c ontrast Santino 07-29-2024 * * *Final Report* * * DATE OF EXAM: Jul 29 2024 2:30PM [place] 0298 - MRI CERVICAL SPINE WO/W IVCON [...] normal limits. DIVISION OF RADIOLOGY Provider, Sunny Regalado - 07/29/2024 * * *Final Report* * * DATE OF EXAM: Jul 29 2024 2:30PM M 0298 - MRI CERVICAL SPINE WO/W IVCON [...] in the cervical, thoracic and lumbar spine Structural Iron Erector: TRI Transcribe Date/Time: Jul 29 2024 3:46P Dictated by : NELSON AVALOS MD This examination was interpreted and the report reviewed and electronically signed by: NELSON AVALOS MD on Jul 29 2024 4:00PM [facility] MR Lumbar spine WO and W con [...] limits. DIVISION OF RADIOLOGY Provider, Alisha Sho [facility] - 07/29/2024 * * *Final Report* [...] in the cervical, thoracic and lumbar spine Structural Iron Erector: [facility] Transcribe Date/Time: Jul 29 2024 3:46P Dictated by : NELSON AVALOS MD This examination was interpreted and the report reviewed and electronically signed by: NELSON AVALOS MD on Jul 29 2024 4:00PM EST [facility] MR Pelvis WO and W contrast Santino 07-29-2024 IMPRESSION: No suspicious osseous lesions in the pelvis on MRI. 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 Structural Iron Erector: [employer] Transcribe Date/Time: Jul 29 2024 7:44P Dictated by : ROLA MOODY MD This examination was interpreted and the report reviewed and electronically signed by: ROLA MOODY MD on Jul 29 2024 8:20PM [facility] DIVISION OF RADIOLOGY * * *Final Report* * * DATE OF EXAM: Jul 29 2024 2:30PM [facility] 0230 - MRI PELVIS ORTHO GEN WO/W [...] replacing lesions are identified. Hip joints: Large tgmci-nk-jyqh images of the hips are notable for [...] significant additional findings. DIVISION OF RADIOLOGY Provider, [facility] Sho [facility] - 07/29/2024 * * *Final Report* [...] replacing lesions are identified. Hip joints: Large cypfn-jd-uuyw images of the hips are notable for [...] 2013. 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 Structural Iron Erector: [facility] Transcribe Date/Time: Jul 29 2024 7:44P Dictated by : ROLA MOODY MD This examination was interpreted and the report reviewed and electronically signed by: ROLA MOODY MD on Jul 29 2024 8:20PM [facility] Radiology Study observation (narrative) [facility] MR Pelvis WO and W contrast IVOrdered By: Ccf Provider on 07-29-2024 [facility] MR Thoracic spine WO and W c ontrast Santino 07-29-2024 * * *Final Report* * * DATE OF EXAM: Jul 29 2024 2:30PM [place] 0326 - MRI THORACIC SPINE WO/W IVCON [...] normal limits. DIVISION OF RADIOLOGY Provider, Sunny Regalado - 07/29/2024 * * *Final Report* * [...] in the cervical, thoracic and lumbar spine Structural Iron Erector: PSCB Transcribe Date/Time: Jul 29 2024 3:46P Dictated by : NELSON AVALOS MD This examination was interpreted and the report reviewed and electronically signed by: NELSON AVALOS MD on Jul 29 2024 4:00PM [facility] MRI CERVICAL SPINE WO/W IVCO Non 07-29-2024 MRI CERVICAL SPINE WO/W IVCON * * *Final Report* * * DATE OF EXAM: Jul 29 2024 2:30PM [facility] 0298 - MRI CERVICAL SPINE WO/W IVCON [...] in the cervical, thoracic and lumbar spine Structural Iron Erector: PSCB Transcribe Date/Time: Jul 29 2024 3:46P Dictated by : NELSON AVALOS MD This examination was interpreted and the report reviewed and electronically signed by: NELSON AVALOS MD on Jul 29 2024 4:00PM EST [id number] Normal [facility] MRI LUMBAR SPINE WO/W IVCONo n 07-29-2024 MRI LUMBAR SPINE WO/W IVCON * * *Final Report* * * DATE OF EXAM: Jul 29 2024 2:30PM [facility] 0304 - MRI LUMBAR SPINE WO/W IVCON [...] in the cervical, thoracic and lumbar spine Structural Iron Erector: PSCB Transcribe Date/Time: Jul 29 2024 3:46P Dictated by : NELSON AVALOS MD This examination was interpreted and the report reviewed and electronically signed by: NELSON AAVLOS MD on Jul 29 2024 4:00PM EST [id number] Normal [facility] MRI PELVIS ORTHO GEN WO/W IV CONon 07-29-2024 MRI PELVIS ORTHO GEN WO/W IVCON * * *Final Report* * * DATE OF EXAM: Jul 29 2024 2:30PM [facility] 0230 - MRI PELVIS ORTHO GEN WO/W [...] replacing lesions are identified. Hip joints: Large atmpl-gh-frxa images of the hips are notable for [...] 2013. 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 Structural Iron Erector: TRI Transcribe Date/Time: Jul 29 2024 7:44P Dictated by : ROLA MOODY MD This examination was interpreted and the report reviewed and electronically signed by: ROLA MOODY MD on Jul 29 2024 8:20PM EST [id number] Normal [facility] MRI THORACIC SPINE WO/W IVCO Non 07-29-2024 MRI THORACIC SPINE WO/W IVCON * * *Final Report* * * DATE OF EXAM: Jul 29 2024 2:30PM [facility] 0326 - MRI THORACIC SPINE WO/W IVCON [...] in the cervical, thoracic and lumbar spine Structural Iron Erector: TRI Transcribe Date/Time: Jul 29 2024 3:46P Dictated by : NELSON AVALOS MD This examination was interpreted and the report reviewed and electronically signed by: NELSON AVALOS MD on Jul 29 2024 4:00PM EST [id number] Normal [facility] No Panel Informationon 07-29 IMPRESSION: No osseous changes, marrow replacement or abnormal enhancement in the cervical, thoracic and lumbar spine Structural Iron Erector: TRI Transcribe Date/Time: Jul 29 2024 3:46P Dictated by : NELSON AVALOS MD This examination was interpreted and the report reviewed and electronically signed by: NELSON AVALOS MD on Jul 29 2024 4:00PM EST DIVISION OF RADIOLOGY Radiology Study observation (narrative) [facility] No Panel InformationOrdered By: Ccf Provider [facility] JAZMINE Telephone (MARS) -------- ЮЛИЯ PRASAD ([id number]) 1955 F Date Time Provider Department 07/06/24 [...] went over results, notes from Sahra Moreno [address] GRADER with understanding. Allergies As of Date: 07/06/2024 [...] Discard Pen After - blood sugar diagnostic ([employer] VERIO TEST STRIPS) test strip Test blood [...] (benign paroxysma (more content not included)... Normal [facility] CNCOon 07-05-2024 CNCO HNO ID: [id number] Author: COORDINATOR, MAMMOGRAPHY, ? Service: ? Author Type: Physician Type: Letter Filed: 07/05/2024 12:16 Note Text: July 05, 2024 PID: [id number] Юлия Prasad [address] [place] [address] Dear Ms. Prasad, We are pleased to [...] report will be kept on file at [facility] as part of your permanent medical record and are available for your continuing care. Thank you for allowing us to help in meeting your health care needs. Sincerely, Dr. Tejeda Interpreting Radiologist [facility] (Normal over 40) Normal [facility] CARLOS EDUARDO SCREENING W TOMOon 07-02 CARLOS EDUARDO SCREENING W MIGUEL * * *Final Report* * * DATE OF EXAM: Jul 02 2024 1:09PM [facility] 0582 - CARLOS EDUARDO SCREENING W MIGUEL / PROCEDURE REASON: Encounter for screening mammogram for breast cancer * * * * Physician Interpretation * * * * RESULT: #[id number] - CARLOS EDUARDO SCREENING W MIGUEL BILATERAL [...] exams dated: 03/25/2023 mammogram, 03/29/2021 mammogram - [facility], 07/02/2019 mammogram, and 03/30/2018 mammogram - [facility]. The breasts are almost entirely fatty. [...] the future. Rachel Tejeda M.D., lm/alexx:07/05/2024 12:16:26 Vamp Seamer(s): RT Reta(R)(M), [facility] letter sent: Normal over 40 Mammogram BI-RADS: [...] Health, Family Medicine, and Medical/Surgical Oncology, the [facility] has carefully reviewed the data and [...] their providers when to stop screening mammograms. Structural Iron Erector: [employer] Transcribe Date/Time: Jul 02 2024 12:39P Dictated by: RACHEL TEJEDA MD This examination was interpreted and the report reviewed and electronically signed by: RACHEL TEJEDA MD on Jul 05 2024 12:16PM EST [id number] Normal [facility] CNOVSPon 06-24-2024 CNOVSP Visit (SP) Office (HEMAWS) -------- ЮЛИЯ PRASAD ([id number]) 1955 F Date Time Provider Department 06/24/24 9:50 AM CRISTHIAN SMITH During your visit today, [...] referral here. Had lab work done through [facility] that showed an increase in serum [...] W/COLLJ SPEC WHEN PFRMD Comment: Done in [place] unable to obtain 11/17/2013: COLONOSCOPY FLX DX [...] at bed (more content not included)... Normal [facility] XR BONE SURVEY ROUTINEon XR BONE [...] IMPRESSION: No acute fracture or lytic lesion Structural Iron Erector: TRI Transcribe Date/Time: Jun 29 2024 4:51P Dictated by : AYANNA ASHBY MD This examination was interpreted and the report reviewed and electronically signed by: AYANNA ASHBY MD on Jun 29 2024 5:04PM EST [id number] Normal [facility] 06-21-2024 CNPN Telephone (FAMPWS) -------- ЮЛИЯ PRASAD ([id number]) 1955 F Date Time Provider Department 06/21/24 [...] up 06/24/2024. Recommend continuing to follow with Amparo. 06/02/[address] Amparo Frederick. Pain in both tarango bones for [...] iron. May require parenteral iron due to skilled nursing PPI use. -OV following above. Potential MRI [...] Fully Assessed Reason for Visit: Patient Question [6748] Prescriptions as of 06/21/2024 - metFORMIN (GLUCOPHAGE) [...] Discard Pen After - blood sugar diagnostic ([employer] VERIO TEST STRIPS) test strip Test blood [...] sugar diagnostic (more content not included)... Normal [facility] MONOCLONAL PROT 24 UR W/INTE RPon 06-07-2024 INTERPRETATION (PA) Poorly defined reg ion of restricted mobility [...] monoclonal gammopathy. Clinical correlation is necessary. Normal [facility] Comment on above: Order Comment: Speci men Type: URINE SPECIMENOrdering Facility: [facility] Address: [address] [place] [address] Performed By: #### U 24MPA ####[facility] [id number] [address] STAFF REVIEW (UMPA) Reviewed by Ileana Marina M.D. Normal [facility] Comment on above: Order Comment: Speci men Type: URINE SPECIMENOrdering Facility: [facility] Address: [address] [place] [address] Performed By: #### U 24MPA ####[facility] [id number] [address] [place] UMPA RESULT A poorly defined reg ion of restricted mobility is present that may represent an M protein. Abnormal No M protein is identified. [facility] Comment on above: Order Comment: Speci men Type: URINE SPECIMENOrdering Facility: [facility] Address: [address] [place] [address] Performed By: #### U 24MPA ####[facility] [id number] [place] [address] [place] PROT ELEC UR 24HR W/M SPIKE (P)on 06-07-2024 Albumin/Globulin Elph (24H U) [Mass ratio] 44.90 % Normal [facility] Comment on above: Order Comment: Speci men Type: URINE SPECIMENOrdering Facility: [facility] Address: [address] [place] [address] Performed By: #### L [id number] ####[facility] LABIA [id number] [place] [address] [place] Alpha 1 globulin Elph (24H U) [Mass fraction] 4.12 % Normal [facility] Comment on above: Order Comment: Speci men Type: URINE SPECIMENOrdering Facility: [facility] Address: [address] [place] [address] Performed By: #### L [id number] ####[facility] LABCLIA [id number] [place] [address] [place] Alpha 2 globulin Elph (24H U) [Mass fraction] 19.19 % Normal [facility] Comment on above: Order Comment: Speci men Type: URINE SPECIMENOrdering Facility: [facility] Address: [address] [place] [address] Performed By: #### L [id number] ####[facility] LABCLIA [id number] [address] [place] Beta globulin Elph (24H U) [Mass fraction] 15.41 % Normal [facility] Comment on above: Order Comment: Speci men Type: URINE SPECIMENOrdering Facility: [facility] Address: [address] [place] [address] Performed By: #### L [id number] ####[facility] LABCLIA [id number] [address] [place] Gamma globulin Elph (24H U) [Mass fraction] 16.37 % Normal [facility] Comment on above: Order Comment: Speci men Type: URINE SPECIMENOrdering Facility: [facility] Address: [address] [place] [address] Performed By: #### L [id number] ####[facility] LABIA [id number] [place] [address] [place] INTERPRETATION COMMENT FOR PROTEIN ELECTROPHORESIS The atypical region is relatively poorly defined and may represent an unusual presentation of polyclonal immunoglobulins, but cannot rule out the presence of a low level M protein. If clinically indicated, monoclonal protein analysis and serum free light chain analysis are suggested to evaluate further for monoclonal gammopathy. Normal [facility] Comment on above: Order Comment: Speci men Type: URINE SPECIMENOrdering Facility: [facility] Address: [address] [place] [address] Performed By: #### L [id number] ####[facility] LABCLIA [id number] [place] [address] [place] Protein Fractions Elph Helder (24H U) [Interp] No definitive M protein is identified on protein electrophoresis. Normal No definitive M protein is identified on protein electrophor esis. [facility] Comment on above: Order Comment: Speci men Type: URINE SPECIMENOrdering Facility: [facility] Address: [address] [place] [address] Performed By: #### L [id number] ####[facility] LABIA [id number] [place] [address] [place] Protein.monoclonal Elph (24H U) [Mass/Time] 0.00 g/24hr Normal [facility] Comment on above: Order Comment: Speci men Type: URINE SPECIMENOrdering Facility: [facility] Address: [address] [place] [address] Performed By: #### L [id number] ####[facility] LABCLIA [id number] [place] [address] [place] STAFF REVIEW ([id number]) Reviewed by Ileana Marina M.D. Normal [facility] Comment on above: Order Comment: Speci men Type: URINE SPECIMENOrdering Facility: [facility] Address: [address] [place] [address] Performed By: #### L [id number] ####[facility] LABIA [id number] [place] [address] [place] Prot 24h Ur-mRateon 06-07-20 24 Protein (24H U) [Mass/Time] 0.38 g/24 Hr High <0.15 [facility] Comment on above: Order Comment: Speci men Type: URINE SPECIMENOrdering Facility: [facility] Address: [address] [place] [address] Result Comment: Adul t Proteinuria Categories: <0.15 g/24 hours is considered normal to mildly increased 0.15 - 0.50 g/24 hours is considered moderately increased >0.50 g/24 hours is considered severely increased KDIGO. (2013). KDIGO 2012 Clinical Practice Guideline for the Evaluation and Management of Chronic Kidney Disease. Official Journal of the International Society of Nephrology, 3(1), 1-150. Performed By: #### 2 889-4 ####[facility] LABCLIA [id number] [address] [facility] [id number] [place] [address] [place] Protein (24H U) [Mass/Time]o n 06-07-2024 PERIOD (HRS) 24 hr Normal [facility] Comment on above: Order Comment: Speci men Type: URINE SPECIMENOrdering Facility: [facility] Address: [address] [place] [address] Performed By: #### 2 889-4 ####[facility] LABCLIA [id number] [address] [id number] [place] [address] [place] Specimen volume (24H U) 3.2 L Normal C [facility] Comment on above: Order Comment: Speci men Type: URINE SPECIMENOrdering Facility: [facility] Address: [address] [place] [address] Performed By: #### 2 889-4 ####[facility] LABCLIA [id number] [address] [id number] [address] [place] Kwasi 06-06-2024 CNPN Telephone (HEMAWS) -------- ЮЛИЯ PRASAD ([id number]) 1955 F Date Time Provider Department 06/06/24 [...] 12/09/2012 Maribel (more content not included)... Normal [facility] B2 Microglob SerPl-mCncon Xbdp-5-Msgoguclwulxe [Mass/Vol] 2.3 ug/mL Normal <3.1 [facility] Comment on above: Order Comment: Speci men Type: BLOOD SPECIMENOrdering Facility: [facility] Address: [address] [place] [address] Result Comment: Beta -2 Microglobulin test is performed using the [employer] immunoturbidimetric method. Results obtained with different methods or kits cannot be used interchangeably. Performed By: #### 2 276-4, 1952-1, 2885-2, 00939-4 ####[facility] LABCLIA [id number] [facility] [address] [place] CBC W Auto Differential pane l (Bld)on 06-02-2024 Basophils (Bld) [#/Vol] 0.04 10*3/uL [facility] Basophils/100 WBC (Bld) 0.5 % C [facility] Differential cell count method Nom (Bld) Auto [facility] Eosinophils (Bld) [#/Vol] 0.11 10*3/uL [facility] Eosinophils/100 WBC (Bld) 1.5 % [facility] Erythrocyte distribution width (RBC) [Ratio] 13.3 % 11.5 - 15.0 % [facility] Hematocrit (Bld) [Volume fraction] 36.1 % 36.0 - 46.0 % [facility] Hemoglobin (Bld) [Mass/Vol] 11.9 g/dL 11.5 - 15.5 g/dL [facility] Immature granulocytes (Bld) [#/Vol] [facility] Immature granulocytes/100 WBC (Bld) 0.1 % [facility] Lymphocytes (Bld) [#/Vol] 3.34 10*3/uL [facility] Lymphocytes/100 WBC (Bld) 45.1 % [facility] MCH (RBC) [Entitic mass] 29.0 pg 26. 0 - 34.0 pg [facility] MCHC (RBC) [Mass/Vol] 33.0 g/dL 30.5 - 36.0 g/dL [facility] MCV (RBC) [Entitic vol] 88.0 fL 80.0 - 100.0 fL [facility] Monocytes (Bld) [#/Vol] 0.40 10*3/uL [facility] Monocytes/100 WBC (Bld) 5.4 % [facility] Neutrophils (Bld) [#/Vol] 3.50 10*3/uL [facility] Neutrophils/100 WBC (Bld) 47.4 % [facility] Nucleated RBC (Bld) [#/Vol] NINF [facility] Nucleated RBC/100 WBC (Bld) [Ratio] 0.0 % /100 WBC [facility] Platelet mean volume (Bld) [Entitic vol] 9.7 fL 9.0 - 12.7 fL [facility] Platelets (Bld) [#/Vol] 232 10*3/uL [facility] RBC (Bld) [#/Vol] 4.10 10*6/uL 3.90 - 5.2 0 m/uL [facility] WBC (Bld) [#/Vol] 7.40 10*3/uL [facility] Basophils (Bld) [#/Vol] 0.04 10*3/uL Normal <0.11 [facility] Comment on above: Order Comment: Speci men Type: BLOOD SPECIMENOrdering Facility: [facility] Address: [address] [place] [address] Performed By: #### 5 7021-8 ####[facility] [id number] [place] [address] [place] Basophils/100 WBC (Bld) 0.5 % Normal [facility] Comment on above: Order Comment: Speci men Type: BLOOD SPECIMENOrdering Facility: [facility] Address: [address] [place] [address] Performed By: #### 5 7021-8 ####[facility] [id number] [place] [address] [place] Differential cell count method Nom (Bld) Auto Normal [facility] Comment on above: Order Comment: Speci men Type: BLOOD SPECIMENOrdering Facility: [facility] Address: [address] [place] [address] Performed By: #### 5 7021-8 ####[facility] [id number] [place] [address] [place] Eosinophils (Bld) [#/Vol] 0.11 10*3/uL Normal <0.46 [facility] Comment on above: Order Comment: Speci men Type: BLOOD SPECIMENOrdering Facility: [facility] Address: [address] [place] [address] Performed By: #### 5 7021-8 ####[facility] [id number] [place] [address] [place] Eosinophils/100 WBC (Bld) 1.5 % Normal [facility] Comment on above: Order Comment: Speci men Type: BLOOD SPECIMENOrdering Facility: [facility] Address: [address] [place] [address] Performed By: #### 5 7021-8 ####[facility]ITAL[facility]CL[facility] [id number] [place] [address] [place] Erythrocyte distribution width (RBC) [Ratio] 13.3 % Normal 11.5-15.0 [facility] Comment on above: Order Comment: Speci men Type: BLOOD SPECIMENOrdering Facility: [facility] Address: [address] [place] [address] Performed By: #### 5 7021-8 ####[facility] [id number] [place] [address] [place] Hematocrit (Bld) [Volume fraction] 36.1 % Normal 36.0-46.0 [facility] Comment on above: Order Comment: Speci men Type: BLOOD SPECIMENOrdering Facility: [facility] Address: [address] [place] [address] Performed By: #### 5 7021-8 ####[facility]CL[facility] [id number] [place] [address] [place] Hemoglobin (Bld) [Mass/Vol] 11.9 g/dL Normal 11.5-15.5 [facility] Comment on above: Order Comment: Speci men Type: BLOOD SPECIMENOrdering Facility: [facility] Address: [address] [place] [address] Performed By: #### 5 7021-8 ####[facility] [id number] [place] [address] [place] Immature granulocytes (Bld) [#/Vol] 10*3/uL Normal <0.10 [facility] Comment on above: Order Comment: Speci men Type: BLOOD SPECIMENOrdering Facility: [facility] Address: [address] [place] [address] Performed By: #### 5 7021-8 ####[facility]OSPITALRAJINDERA [id number] [place] [address] [place] Immature granulocytes/100 WBC (Bld) 0.1 % Normal [facility] Comment on above: Order Comment: Speci men Type: BLOOD SPECIMENOrdering Facility: [facility] Address: [address] [place] [address] Performed By: #### 5 7021-8 ####[facility]PITALA [id number] [place] [address] [place] Lymphocytes (Bld) [#/Vol] 3.34 10*3/uL Normal 1.00-4.00 [facility] Comment on above: Order Comment: Speci men Type: BLOOD SPECIMENOrdering Facility: [facility] Address: [address] [place] [address] Performed By: #### 5 7021-8 ####[facility] [id number] [place] [address] [place] Lymphocytes/100 WBC (Bld) 45.1 % Normal [facility] Comment on above: Order Comment: Speci men Type: BLOOD SPECIMENOrdering Facility: [facility] Address: [address] [place] [address] Performed By: #### 5 7021-8 ####[facility]ITALNCLIA [id number] [place] [address] [place] MCH (RBC) [Entitic mass] 29.0 pg Normal 26.0-34.0 [facility] Comment on above: Order Comment: Speci men Type: BLOOD SPECIMENOrdering Facility: [facility] Address: [address] [place] [address] Performed By: #### 5 7021-8 ####[facility] [id number] [place] [address] [place] MCHC (RBC) [Mass/Vol] 33.0 g/dL Normal 30.5-36.0 [facility] Comment on above: Order Comment: Speci men Type: BLOOD SPECIMENOrdering Facility: [facility] Address: [address] [place] [address] Performed By: #### 5 7021-8 ####[facility] [id number] [place] [address] [place] MCV (RBC) [Entitic vol] 88.0 fL Normal 80.0-100.0 C [facility] Comment on above: Order Comment: Speci men Type: BLOOD SPECIMENOrdering Facility: [facility] Address: [address] [place] [address] Performed By: #### 5 7021-8 ####[facility] [id number] [address] OF [place] Monocytes (Bld) [#/Vol] 0.40 10*3/uL Normal <0.87 [facility] Comment on above: Order Comment: Speci men Type: BLOOD SPECIMENOrdering Facility: [facility] Address: [address] [place] [address] Performed By: #### 5 7021-8 ####[facility] [id number] [place] [address] [place] Monocytes/100 WBC (Bld) 5.4 % Normal [facility] Comment on above: Order Comment: Speci men Type: BLOOD SPECIMENOrdering Facility: [facility] Address: [address] [place] [address] Performed By: #### 5 7021-8 ####[facility] [id number] [place] [address] [place] Neutrophils (Bld) [#/Vol] 3.50 10*3/uL Normal 1.45-7.50 [facility] Comment on above: Order Comment: Speci men Type: BLOOD SPECIMENOrdering Facility: [facility] Address: [address] [place] [address] Performed By: #### 5 7021-8 ####[facility] [id number] [place] [address] [place] Neutrophils/100 WBC (Bld) 47.4 % Normal [facility] Comment on above: Order Comment: Speci men Type: BLOOD SPECIMENOrdering Facility: [facility] Address: [address] [place] [address] Performed By: #### 5 7021-8 ####[facility] [id number] [place] [address] [place] Nucleated RBC (Bld) [#/Vol] 10*3/uL Normal <0.01 [facility] Comment on above: Order Comment: Speci men Type: BLOOD SPECIMENOrdering Facility: [facility] Address: [address] [place] [address] Performed By: #### 5 7021-8 ####[facility]ITALNCA [id number] [place] [address] [place] Nucleated RBC/100 WBC (Bld) [Ratio] 0.0 /100 WBC Normal [facility] Comment on above: Order Comment: Speci men Type: BLOOD SPECIMENOrdering Facility: [facility] Address: [address] [place] [address] Performed By: #### 5 7021-8 ####[facility] ELDERNCFINESSE [id number] [place] [address] [place] Platelet mean volume (Bld) [Entitic vol] 9.7 fL Normal 9.0-12.7 [facility] Comment on above: Order Comment: Speci men Type: BLOOD SPECIMENOrdering Facility: [facility] Address: [address] [place] [address] Performed By: #### 5 7021-8 ####[facility] HOSPITALGABBYFINESSE [id number] [place] [address] [place] Platelets (Bld) [#/Vol] 232 10*3/uL Normal 150-400 [facility] Comment on above: Order Comment: Speci men Type: BLOOD SPECIMENOrdering Facility: [facility] Address: [address] [place] [address] Performed By: #### 5 7021-8 ####[facility]OSPITALNCCARLOSA [id number] [place] [address] [place] RBC (Bld) [#/Vol] 4.10 10*6/uL Normal 3.90-5.20 [facility] Comment on above: Order Comment: Speci men Type: BLOOD SPECIMENOrdering Facility: [facility] Address: [address] [place] [address] Performed By: #### 5 7021-8 ####[facility]ITALNCLIA [id number] [place] [address] [place] WBC (Bld) [#/Vol] 7.40 10*3/uL Normal 3.70-11.00 [facility] Comment on above: Order Comment: Speci men Type: BLOOD SPECIMENOrdering Facility: [facility] Address: [address] [place], [place] [address] [address] Performed By: #### 5 7021-8 ####[facility] [id number] [place] [id number] [place] CNOVSPon 06-02-2024 CNOVSP Visit (SP) Office (HEMAWS) -------- ЮЛИЯ PRASAD ([id number]) 1955 F Date Time Provider Department 06/02/24 [...] WNL at rest Pulmonary HTN ([facility]) 12/08/2017 mild Squamous cell skin cancer, nasal tip 06/24/2016 Tobacco abuse 03/28/2017 PAST SURGICAL HISTORY Procedure Laterality Date ADDTL NECK SPINE FUSION 09/2004 CHOLECYSTECTOMY 2000 COLONOSCOPY 1982 COLONOSCOPY FLX DX W/COLLJ SPEC WHEN PFRMD 09/01/2012 COLONOSCOPY FLX DX W/COLLJ SPEC WHEN PFRMD Done in [place] unable to obtain COLONOSCOPY FLX DX W/COLLJ [...] daily. montelukast (more content not included)... Normal [facility] Comprehensive metabolic 2000 panelOrdered By: Addie Ruano on 06-02-2024 Albumin [Mass/Vol] 4.8 g/dL 3.9 - 4.9 g/dL [facility] ALP [Catalytic activity/Vol] 29 U/L Low 34 - 123 U/L [facility] ALT [Catalytic activity/Vol] 19 U/L 7 - 38 U/L [facility] Anion gap [Moles/Vol] 12 mmol/L 8 - 15 mmol/L [facility] AST [Catalytic activity/Vol] 21 U/L 13 - 35 U/L [facility] Bilirubin [Mass/Vol] 0.3 mg/dL 0.2 - 1 .3 mg/dL [facility] Calcium [Mass/Vol] 9.8 mg/dL 8.5 - 10. 2 mg/dL [facility] Chloride [Moles/Vol] 99 mmol/L 98 - 10 7 mmol/L [facility] CO2 [Moles/Vol] 24 mmol/L 22 - 30 mmol/L [facility] Creatinine [Mass/Vol] 0.76 mg/dL 0.58 - 0.96 mg/dL [facility] GFR/1.73 sq M.predicted among non-blacks MDRD (S/P/Bld) [Vol rate/Area] 87 mL/min/{1.73_m2} - PINF [facility] Comment on above: Estimated Glomerular Filtration [...] 132 mg/dL High 74 - 99 mg/dL [facility] Comment on above: The [place] Diabete s Association (ADA) provides guidance for [...] Standards of Medical Care in Diabetes 2016, [place] Diabetes Association. Diabetes Care. 2016.39(Suppl 1). Interpretation and review of laboratory results Abnormal [facility] Potassium [Moles/Vol] 3.9 mmol/L 3.7 - 5.1 mmol/L [facility] Protein [Mass/Vol] 7.9 g/dL 6.3 - 8.0 g/dL [facility] Sodium [Moles/Vol] 135 mmol/L Low 136 - 144 mmol/L [facility] Urea nitrogen [Mass/Vol] 8 mg/dL 7 - 21 mg/dL [facility] Comprehensive metabolic 2000 panelon 06-02-2024 Albumin [Mass/Vol] 4.8 g/dL Normal 3.9-4.9 [facility] Comment on above: Order Comment: Speci men Type: BLOOD SPECIMENOrdering Facility: [facility] Address: [address] [place] [address] Performed By: #### 3 084-1, 06421-1, 2531-0 ####[facility] MARGUERITEWNCLIA [id number] [place] [address] [place] ALP [Catalytic activity/Vol] 29 U/L Low 34-123 [facility] Comment on above: Order Comment: Speci men Type: BLOOD SPECIMENOrdering Facility: [facility] Address: [address] [place] [address] Performed By: #### 3 084-1, 45485-2, 2531-0 ####[facility]ITALNCLIA [id number] [place] [address] [place] ALT [Catalytic activity/Vol] 19 U/L Normal 7-38 [facility] Comment on above: Order Comment: Speci men Type: BLOOD SPECIMENOrdering Facility: [facility] Address: [address] [place] [address] Performed By: #### 3 084-1, 74877-4, 2531-0 ####[facility]ITALNCLIA [id number] [place] [address] [place] Anion gap [Moles/Vol] 12 mmol/L Normal 8-15 [facility] Comment on above: Order Comment: Speci men Type: BLOOD SPECIMENOrdering Facility: [facility] Address: [address] [place] [address] Performed By: #### 3 084-1, 67937-7, 2531-0 ####[facility]ITALNCLIA [id number] [place] [address] [place] AST [Catalytic activity/Vol] 21 U/L Normal 13-35 [facility] Comment on above: Order Comment: Speci men Type: BLOOD SPECIMENOrdering Facility: [facility] Address: [address] [place], [place] [address] Performed By: #### 3 084-1, 20337-5, 2531-0 ####[facility] ELDERRAJINDERA [id number] [place] [address] [place] Bilirubin [Mass/Vol] 0.3 mg/dL Normal 0.2-1.3 [facility] Comment on above: Order Comment: Speci men Type: BLOOD SPECIMENOrdering Facility: [facility] Address: [address] [place], [place] [address] Performed By: #### 3 084-1, 14160-3, 2531-0 ####[facility] MARGUERITEMALICK [id number] [place] [address] [place] Calcium [Mass/Vol] 9.8 mg/dL Normal 8.5-10.2 [facility] Comment on above: Order Comment: Speci men Type: BLOOD SPECIMENOrdering Facility: [facility] Address: [address] [place], [place] [address] Performed By: #### 3 084-1, 58723-0, 2531-0 ####[facility] MARGUERITELUNENBURGRAJINDERA [id number] [place] [address] [place] Chloride [Moles/Vol] 99 mmol/L Normal 98-107 [facility] Comment on above: Order Comment: Speci men Type: BLOOD SPECIMENOrdering Facility: [facility] Address: [address] [place], [place] [address] Performed By: #### 3 084-1, 05307-3, 2531-0 ####[facility] MARGUERITELUNENBURGRAJINDERA [id number] [place] [address] [place] CO2 [Moles/Vol] 24 mmol/L Normal 22-30 [facility] Comment on above: Order Comment: Speci men Type: BLOOD SPECIMENOrdering Facility: [facility] Address: [address] [place] [address] Performed By: #### 3 084-1, 24846-5, 0 ####[facility] MARGUERITELUNENBURGNCLIA [id number] [place] [address] [place] Creatinine [Mass/Vol] 0.76 mg/dL Normal 0.58-0.96 [facility] Comment on above: Order Comment: Specodalis men Type: BLOOD SPECIMENOrdering Facility: [facility] Address: [address] [place] [address] Performed By: #### 3 084-1, 44749-8, 0 ####[facility] HOS[facility]ITALNCLI [id number] [place] [address] [place] Creatinine and Glomerular filtration rate.predicted panel (S/P/Bld) 87 mL/min/1.73m??? Normal >=60 [facility] Comment on above: Order Comment: Giovana alejandre Type: BLOOD SPECIMENOrdering Facility: [facility] Address: [address] [place] [address] Result Comment: Amna mated Glomerular Filtration Rate [...] actual GFR. Performed By: #### 3 084-1, 33780-8, 0 ####[facility]ITALNCLIA [id number] [place] [address] [place] Glucose [Mass/Vol] 132 mg/dL High 74-99 [facility] Comment on above: Order Comment: Giovana alejandre Type: BLOOD SPECIMENOrdering Facility: [facility] Address: [address] [place] [address] Result Comment: The [place] Diabetes Association (ADA) provides guidance for cutoff [...] Standards of Medical Care in Diabetes 2016, [place] Diabetes Association. Diabetes Care. 2016.39(Suppl 1). Performed By: #### 3 084-1, 77303-0, 2531-0 ####[facility] HOSPITALJIMENA [id number] [place] [address] [place] Potassium [Moles/Vol] 3.9 mmol/L Normal 3.7-5.1 [facility] Comment on above: Order Comment: Speci men Type: BLOOD SPECIMENOrdering Facility: [facility] Address: [address] [place] [address] Performed By: #### 3 084-1, 94776-9, 2531-0 ####[facility] [id number] [place] [address] [place] Protein [Mass/Vol] 7.9 g/dL Normal 6.3-8.0 [facility] Comment on above: Order Comment: Speci men Type: BLOOD SPECIMENOrdering Facility: [facility] Address: [address] [place] [id number] Performed By: #### 3 084-1, 90495-5, 2531-0 ####[facility] HOSPITALRAJINDERA [id number] [place] [address] [place] Sodium [Moles/Vol] 135 mmol/L Low 136-144 [facility] Comment on above: Order Comment: Speci men Type: BLOOD SPECIMENOrdering Facility: [facility] Address: [address] [place] [id number] Performed By: #### 3 084-1, 38880-2, 2532-0 ####[facility] HOSPITALNCCARLOSA [id number] [place] [address] [place] Urea nitrogen [Mass/Vol] 8 mg/dL Normal 7-21 [facility] Comment on above: Order Comment: Speci men Type: BLOOD SPECIMENOrdering Facility: [facility] Address: [address] [place] [address] Performed By: #### 3 084-1, 51901-7, 2532-0 ####[facility] HOSPITALNCCARLOSA [id number] [place] [address] [place] Ferritin SerPl-mCncon 2023 Ferritin [Mass/Vol] 19.9 ng/mL Normal 14.7-205.1 [facility] Comment on above: Order Comment: Speci men Type: BLOOD SPECIMENOrdering Facility: [facility] Address: [address] [place] [address] Performed By: #### 2 276-4, 1952-1, 2885-2, 98896-1 ####[facility] LABCLIA [id number] [place] [address] [place] IMMUNOFIXATION SCREEN, SERUM on 06-02-2024 INTERPRETATION (MPA) [...] monoclonal gammopathy. Clinical correlation is necessary. Normal [facility] Comment on above: Order Comment: Speci men Type: BLOOD SPECIMENOrdering Facility: [facility] Address: [address] [place] [address] Performed By: #### I FES ####[facility] LABCLIA [id number] [address] MPA RESULT A poorly defined reg ion of restricted mobility is present that may represent an M protein. Abnormal No M protein is identified. [facility] Comment on above: Order Comment: Speci men Type: BLOOD SPECIMENOrdering Facility: [facility] Address: [address] [place] [address] Performed By: #### I FESC ####[facility] LABCLIA [id number] [address] STAFF REVIEW (MPA) Reviewed by Malachi Byrne MD, Ph.D ([id number]) Normal [facility] Comment on above: Order Comment: Speci men Type: BLOOD SPECIMENOrdering Facility: [facility] Address: [address] [place] [address] Performed By: #### I FES ####[facility] LABIA [id number] [place] [address] [place] IMMUNOGLOBULINS,IGG,IGA,IGMo n 06-02-2024 IgA [Mass/Vol] 279 mg/dL Normal 70-400 [facility] Comment on above: Order Comment: Speci men Type: BLOOD SPECIMENOrdering Facility: [facility] Address: [address] [place] [address] Performed By: #### S ERIMM ####[facility] LABIA [id number] [place] [address] [place] IgG [Mass/Vol] 1624 mg/dL High 700-1600 [facility] Comment on above: Order Comment: Speci men Type: BLOOD SPECIMENOrdering Facility: [facility] Address: [address] [place] [address] Performed By: #### S ERIMM ####[facility] LABCLIA [id number] [place] [address] [place] IgM [Mass/Vol] 139 mg/dL Normal 40-230 [facility] Comment on above: Order Comment: Speci men Type: BLOOD SPECIMENOrdering Facility: [facility] Address: [address] [place] [address] Performed By: #### S MATTIEM ####[facility] LABIA [id number] [place] [address] [place] Iron and Iron binding capaci ty panelon 06-02-2024 Iron [Mass/Vol] 64 ug/dL Normal 41-186 [facility] Comment on above: Order Comment: Speci men Type: BLOOD SPECIMENOrdering Facility: [facility] Address: [address] [place] [address] Performed By: #### 2 276-4, 1951-11, 2884-12, 39156-9 ####[facility] LABIA [id number] [place] [address] [place] Iron binding capacity [Mass/Vol] 365 ug/dL Normal 232-386 [facility] Comment on above: Order Comment: Speci men Type: BLOOD SPECIMENOrdering Facility: [facility] Address: [address] [place] [address] Performed By: #### 2 276-4, 1951-11, 2884-12, 09288-8 ####[facility]ITALIA [id number] [place] [address] [place] Iron/TIBC [Molar ratio] 17.5 % Normal 15.0-57.0 [facility] Comment on above: Order Comment: Speci men Type: BLOOD SPECIMENOrdering Facility: [facility] Address: [address] [place] [address] Performed By: #### 2 276-4, 1951-11, 2884-12, 54038-4 ####[facility] LABIA [id number] [place] [address] [place] KAPPA/DEJESUS,FREE,SERon 2023 Immunoglobulin light chains.kappa.free (S) [Mass/Vol] 39.2 mg/L High 3.3-19.4 [facility] Comment on above: Order Comment: Speci men Type: BLOOD SPECIMENOrdering Facility: [facility] Address: [address] [place] [address] Result Comment: Rare ly, increased serum free light chains levels may not be detected or accurately quantified due to prozone phenomenon or in high viscosity samples using this immunoturbidimetric assay. Correlation with other laboratory results and clinical findings is recommended. The [place] Free Light Chain was performed using the Binding Site Optilite immunoturbidimetric method. Result obtained with different assay methods or kits cannot be used interchangeably. Performed By: #### K LFRS ####[facility] LABCLIA [id number] [place] [address] [place] Immunoglobulin light chains.kappa/Immunoglobu belle light chains.lambda (S) [Mass ratio] 1.91 High 0.26-1.65 [facility] Comment on above: Order Comment: Speci men Type: BLOOD SPECIMENOrdering Facility: [facility] Address: [address] [place] [address] Performed By: #### K LFRS ####[facility] LABCLIA [id number] [place] [address] [place] Immunoglobulin light chains.lambda.free [Mass/Vol] 20.5 mg/L Normal 5.7-26.3 [facility] Comment on above: Order Comment: Speci men Type: BLOOD SPECIMENOrdering Facility: [facility] Address: [address] [place] [address] Result Comment: Rare ly, increased serum free [...] used interchangeably. Performed By: #### K LFRS ####[facility] LABCLIA [id number] [place] [address] [place] LACTATE DEHYDROGENASEon 05-11 LDH [Catalytic activity/Vol] 163 U/L 135 - 214 U/L [facility] LDH SerPl-cCncon 06-02-2024 LDH [Catalytic activity/Vol] 163 U/L Normal 135-214 [facility] Comment on above: Order Comment: Speci men Type: BLOOD SPECIMENOrdering Facility: [facility] Address: [address] [place] [address] Performed By: #### 3 084-1, 05927-6, 2532-0 ####[facility] CENTERLIA [id number] [place] [id number] [place] No Panel Informationon 06-02 Interpretation and review of laboratory results Normal [facility] No Panel InformationOrdered By: Addie Ruano on 06-02-2024 [facility] PROTEIN ELECTROPHORESIS SERU M (P)on 06-02-2024 Albumin [Mass/Vol] 4.78 g/dL Normal 3.43-5.41 [facility] Comment on above: Order Comment: Speci men Type: BLOOD SPECIMENOrdering Facility: [facility] Address: [address] [place] [address] Performed By: #### L [id number] ####[facility] LABCLIA [id number] [place] [address] [place] Alpha 1 globulin Elph [Mass/Vol] 0.29 g/dL Normal 0.18-0.43 [facility] Comment on above: Order Comment: Speci men Type: BLOOD SPECIMENOrdering Facility: [facility] Address: [address] [place] [address] Performed By: #### L [id number] ####[facility] LABCLIA [id number] [place] [address] [place] Alpha 2 globulin Elph [Mass/Vol] 0.78 g/dL Normal 0.42-0.98 [facility] Comment on above: Order Comment: Speci men Type: BLOOD SPECIMENOrdering Facility: [facility] Address: [address] [place] [address] Performed By: #### L [id number] ####[facility] LABIA [id number] [place] [address] [place] Beta globulin Elph [Mass/Vol] 0.95 g/dL Normal 0.61-1.17 [facility] Comment on above: Order Comment: Speci men Type: BLOOD SPECIMENOrdering Facility: [facility] Address: [address] [place] [address] Performed By: #### L [id number] ####[facility] LABIA [id number] [place] [address] [place] Gamma globulin Elph [Mass/Vol] 1.50 g/dL Normal 0.53-1.51 [facility] Comment on above: Order Comment: Speci men Type: BLOOD SPECIMENOrdering Facility: [facility] Address: [address] [place] [address] Performed By: #### L [id number] ####[facility]OSPITALIA [id number] [place] [address] [place] INTERPRETATION COMMENT FOR PROTEIN ELECTROPHORESIS The atypical region is relatively poorly defined and may represent an unusual presentation of polyclonal immunoglobulins, but cannot rule out the presence of a low level M protein. If clinically indicated, monoclonal protein analysis and serum free light chain analysis are suggested to evaluate further for monoclonal gammopathy. Normal [facility] Comment on above: Order Comment: Speci men Type: BLOOD SPECIMENOrdering Facility: [facility] Address: [address] [place] [address] Performed By: #### L [id number] ####[facility] LABIA [id number] [place] [address] [place] M-PROTEIN LOCATION Normal [facility] Comment on above: Order Comment: Speci men Type: BLOOD SPECIMENOrdering Facility: [facility] Address: [address] [place] [address] Result Comment: Not Applicable. Performed By: #### L [id number] ####[facility] LABIA [id number] [place] [address] [place] Protein Fractions [Interp] An atypical region of restricted mobility is identified on protein electrophoresis. Abnormal No definitive M protein is identified on protein electrophor esis. [facility] Comment on above: Order Comment: Speci men Type: BLOOD SPECIMENOrdering Facility: [facility] Address: [address] [place] [address] Performed By: #### L [id number] ####[facility]PITALIA [id number] [place] [address] [place] Protein.monoclonal Elph [Mass/Vol] 0.00 g/dL Normal <=0.00 [facility] Comment on above: Order Comment: Speci men Type: BLOOD SPECIMENOrdering Facility: [facility] Address: [address] [place] [address] Performed By: #### L [id number] ####[facility]PITALIA [id number] [place] [address] [place] SPE STAFF REVIEW Reviewed by Malachi Byrne MD, Ph.D ([id number]) Normal [facility] Comment on above: Order Comment: Speci men Type: BLOOD SPECIMENOrdering Facility: [facility] Address: [address] [place] [address] Performed By: #### L [id number] ####[facility]ITALIA [id number] [place] [id number] [place] Prot SerPl-mCncon 06-02-2024 Protein [Mass/Vol] 8.3 g/dL High 6.3-8.0 [facility] Comment on above: Order Comment: Speci men Type: BLOOD SPECIMENOrdering Facility: [facility] Address: [address] [place] [address] Performed By: #### 2 276-4, 1952-1, 2885-2, 07697-6 ####[facility] LABCLIA [id number] [facility] [id number] [place], [place] [id number] [place] DOV SERUM VISCOSITYon 06-02-2024 VISCOSITY, SERUM 1.21 cP Normal <=1.50 [facility] Comment on above: Order Comment: Giovana alejandre Type: BLOOD SPECIMENOrdering Facility: [facility] Address: [address] [place] [address] Result Comment: INTE RPRETIVE INFORMATION: Viscosity, Serum Increased viscosity is associated with disorders such as monoclonal gammopathy, macroglobulinemia, and multiple myeloma. Significantly elevated viscosity (>3.0 cP) is associated with clinical symptoms of hyperviscosity syndrome. This test was developed and its performance characteristics determined by [employer]. It has not been cleared or approved by the US Food and Drug Administration. This test was performed in a CLIA certified laboratory and is intended for clinical purposes. Performed By: [place] [address] Recreation Officer: Damien Rodrigues MD, PhD CLIA Number: [id number] Performed By: #### S [facility] ####[facility] [id number] [place] [address] URIC ACIDon 06-02-2024 Urate [Mass/Vol] 5.4 mg/dL 2.5 - 6.6 mg/dL [facility] Urate SerPl-mCncon Urate [Mass/Vol] 5.4 mg/dL Normal 2.5-6.6 [facility] Comment on above: Order Comment: Speci men Type: BLOOD SPECIMENOrdering Facility: [facility] Address: [address] [place] [address] Performed By: #### 3 084-1, [id number], 2532-0 ####[facility] [id number] [place] [id number] [place] CNPCristy 06-01-2024 CNPN Telephone (HEMAWS) -------- ЮЛИЯ PRASAD Matt ([id number]) 1955 F Date Time Provider Department 06/01/24 [...] fusion [Z98.1] (more content not included)... Normal [facility] CNOVon 04-21-2024 CNOV Office Visit (GENSWS ) -------- ЮЛИЯ PRASAD ([id number]) 1955 F Date Time Provider Department 04/21/24 [...] to be performed. Referring Provider: PELON WINCHESTER [[id number]] Allergies As of Date: 04/21/2024 Noted Allergy [...] of uncertai (more content not included)... Normal [facility] THYROID BIOPSY RIGHT (POC ) SURG USE ONLYon 04-12-2024 [facility] CRPHSon 02-10-2024 CRP, High Sensitive 0.51 mg/L Normal 0.20-3.00 [facility] ([place]) Comment on above: Result Comment: Rela tive Risk Category and Average hs-CRP Level: Higher Risk: > 5.0 mg/L Guidelines support that hs-CRP can be used as an independent predictor of increased coronary risk; however, hs-CRP results should only be interpreted in conjunction with other cardiac risk factors in establishing overall cardiac risk for a given patient. Performed By: #### C [facility] #### [place] [address] LABORATORYOrdered By: SYSTEM SYSTEM on 02-10-2024 CRP High sensitivity method [Mass/Vol] 0.51 mg/L Normal 0.20 - 3.00 mg/L ADM SS Comment on above: Interpretive Data: [...] Probe Positive Trichomonas vaginalis DNA Probe Negative [facility] No Panel Informationon 02-09 Culture Wound Aerobe Normal Vaginal Fina a: Present Neisseria gonorrhoeae: Negative [facility] Work Phone: GS 4+ Epithelial cells 4+ Gram Positive Rods , many rods are gram variable [facility] Work Phone: Iron measurement (mass/mass) Ordered By: Jake Raymond on 01-14-2024 Iron (Unsp spec) [Mass/Mass] 47 ug/dL 50-170 [facility] Laboratory - Chemistry and C hemistry - challengeOrdered By: Jake Raymond on 01-14-2024 Cobalamin (Vitamin B12) [Mass/Vol] 290 pg/mL 211-911 [facility] Transferrin [Mass/Vol] 310 mg/dL 192-364 [facility] Comment on above: Performed at: [address] Director: Cleveland Poon PhD, Phone: [phone] No Panel InformationOrdered By: Jake Raymond on 01-14-2024 Total Iron Binding Capacity 403 ug/dL 250-450 [facility] Serum or plasma iron saturat ion measurement (mass fraction)Ordered By: Jake Raymond on 01-14-2024 Iron saturation [Mass fraction] 11.7 % 15.0-55.0 [facility] Absolute lymphocyte countOrd ered By: Jake Raymond on 12-31-2023 Lymphocytes Auto (Unsp spec) [#/Vol] 2.67 10*3/uL 0.83-4.51 [facility] Automated lymphocyte count a s percentage of total leukocytesOrdered By: Jake Raymond on 12-31-2023 Lymphocytes/100 WBC Auto (Unsp spec) 27.3 % 19-41 [facility] Basophil percentageOrdered B y: Jake Raymond on 12-31-2023 Basophil percentage 0 SEEN /hpf 0-5 [facility] Basophils/100 WBC (Bld) 0.4 % 0-1 [facility] Bilirubin [Mass/Vol] 0.80 mg/dL 0.20-1.00 [facility] Comment on above: For patients on eltr ombopag therapy, use of Dimension [place] TBIL is not recommended. Chloride [Moles/Vol] 104 mmol/L 98-107 [facility] Cholesterol [Mass/Vol] 114 mg/dL <200 [facility] Comment on above: <200 mg/dL Desirable 200-240 mg/dL Borderline >240 mg/dL High Risk Eosinophils/100 WBC (Bld) 0.6 % 0-5 [facility] Glucose [Mass/Vol] 98 mg/dL 74-106 [facility] Hemoglobin (Bld) [Mass/Vol] 11.7 g/dL 12.0-15.0 [facility] Monocytes/100 WBC (Bld) 5.1 % 0-10 [facility] Neutrophils (Bld) [#/Vol] 6.5 10*3/uL 2.0-7.7 [facility] Neutrophils/100 WBC (Bld) 66.3 % 47-70 [facility] Potassium [Moles/Vol] 3.7 mmol/L 3.5-5.1 [facility] Protein [Mass/Vol] 8.6 g/dL 6.4-8.2 [facility] Sodium [Moles/Vol] 139 mmol/L 136-145 [facility] Triglyceride [Mass/Vol] 135 mg/dL <199 [facility] Comment on above: The drugs N-Acetylcy steine and Metamizole may falsely depress this assay.Serum Triglycerides Reference Interval Normal <150 mg/dL Borderline high 150 - 199 mg/dL High 200 - 499 mg/dL Very High > or = 500 mg/dL WBC (Bld) [#/Vol] 9.8 10*3/uL 4.4-11.0 [facility] Bilirubin Test strip Ql (U)O rdered By: Jake Raymond on 12-31-2023 Bilirubin Ql (U) Negative Negative [facility] Calcium oxalate crystals det ection in urine sediment by light microscopyOrdered By: Jake Raymond on 12-31-2023 Calcium oxalate crystals LM Ql (Urine sed) RARE /hpf [facility] Determination of erythrocyte mean corpuscular volume (MCV)Ordered By: Jake Raymond on 12-31-2023 MCV (RBC) [Entitic vol] 89.6 fL 81-99 [facility] Erythrocyte distribution wid th ratioOrdered By: Jake Raymond on 12-31-2023 Erythrocyte distribution width (RBC) [Ratio] 13.5 % 11.6-14.6 [facility] Erythrocyte distribution wid th standard deviationOrdered By: Jake Raymond on 12-31-2023 Erythrocyte distribution width (RBC) [Entitic vol] 44.5 fL 35.1-43.9 [facility] Hematocrit Auto (Bld) [Volum e fraction]Ordered By: Jake Raymond on 12-31-2023 Hematocrit (Bld) [Volume fraction] 35.5 % 37-47 [facility] Immature granulocytes/100 WB C Auto (Bld)Ordered By: Jake Raymond on 12-31-2023 Immature granulocytes/100 WBC (Bld) 0.300 % 0.0-0.9 [facility] Comment on above: IG% - Immature Granu locytes (promyelocytes, myelocytes and metamyelocytes) > 1% indicates that a LEFT SHIFT is Present. Ketones Test strip Ql (U)Ord ered By: Jake Raymond on 12-31-2023 Ketones Ql (U) Negative Negative [facility] Laboratory - Chemistry and C hemistry - challengeOrdered By: Jake Raymond on 12-31-2023 Albumin/Globulin [Mass ratio] 1.0 {ratio} 0.9-2.4 [facility] ALP [Catalytic activity/Vol] 31 U/L 45-117 [facility] ALT [Catalytic activity/Vol] 26 U/L 13-56 [facility] Cholesterol in HDL [Mass/Vol] 58 mg/dL >40 [facility] Comment on above: The drugs N-Acetylcy steine and Metamizole may falsely depress this assay. Reference Range HDL <40 mg/dL Low HDL Cholesterol HDL >or= 60 mg/dL High HDL Cholesterol Cholesterol in LDL [Mass/Vol] 29 mg/dL 0-130 [facility] CK [Catalytic activity/Vol] 153 U/L 26-192 [facility] CO2 [Moles/Vol] 27.0 mmol/L 21.0-32.0 [facility] Ferritin [Mass/Vol] 9 ng/mL 8-252 [facility] Globulin (S) [Mass/Vol] 4.3 g/dL 2.2-4.2 [facility] Magnesium [Mass/Vol] 1.8 mg/dL 1.6-2.6 [facility] Urea nitrogen/Creatinine [Mass ratio] 14.5 mg/mg 10-20 [facility] Laboratory - Hematology and Cell countsOrdered By: Jake Raymond on 12-31-2023 MCH (RBC) [Entitic mass] 29.5 pg 27.0-32.0 [facility] MCHC (RBC) [Mass/Vol] 33.0 g/dL 32-36 [facility] Nucleated RBC/100 WBC (Bld) [Ratio] 0 % 0-5 [facility] Platelet mean volume (Bld) [Entitic vol] 10.6 fL 6.2-12.0 [facility] Platelets (Bld) [#/Vol] 218 10*3/uL 150-450 [facility] Mucus LM Ql (Urine sed)Order ed By: Jake Raymond on 12-31-2023 Mucus Ql (Urine sed) 0 SEEN /hpf [facility] Nitrite Test strip Ql (U)Ord ered By: Jake Raymond on 12-31-2023 Nitrite Ql (U) Negative Negative [facility] No Panel InformationOrdered By: Jake Raymond on 12-31-2023 Urine RBC 0 SEEN /hpf 0-5 [facility] Estimated GFR (MDRD) Amer 81 mL/min >60 [facility] Comment on above: GFR Calc Estimated GFR (MDRD) Non-Af Amer 67 mL/min >60 [facility] Comment on above: Non- GFR Calc Urine Microalbumin/Creatinine Ratio 54.3 mg/g CRE <30 [facility] Vitamin D 25-Hydroxy 35.2 ng/mL [facility] Comment on above: Vitamin D 25(OH) Sta tus Range Deficiency <20 ng/mL (50nmol/L) Insufficiency 20 - 30 ng/mL (50 - 75 nmol/L) Sufficiency 30 - 100 ng/mL (75 - 250 nmol/L) Toxicity >100 ng/mL (>250 nmol/L) VLDL Cholesterol 27 mg/dL 5-40 [facility] Protein Test strip Ql (U)Ord ered By: Jake Raymond on 12-31-2023 Protein Ql (U) Negative Negative [facility] RBC Auto (Bld) [#/Vol]Ordere d By: Jake Raymond on 12-31-2023 RBC (Bld) [#/Vol] 3.96 10*6/uL 4.2-5.4 [facility] Serum or plasma calcium bernard urement (mass/volume)Ordered By: Jake Raymond on 12-31-2023 Calcium [Mass/Vol] 9.5 mg/dL 8.5-10.1 [facility] Serum or plasma creatinine m easurement (mass/volume)Ordered By: Jake Raymond on 12-31-2023 Creatinine [Mass/Vol] 0.90 mg/dL 0.55-1.02 [facility] Comment on above: The validity of the calculated GFR & GFRAA in patients over 70 years has not been determined. Clinical correlation is essential. Serum or plasma thyroid stim ulating hormone (TSH) measurement (units/volume)Ordered By: Jake Raymond on 12-31-2023 TSH Qn 1.37 uIU/mL 0.358-3.74 [facility] Serum or plasma thyroperoxid ase antibody assay (units/volume)Ordered By: Jake Raymond on 12-31-2023 TPO Ab Qn 18 [IU]/mL 0-34 [facility] Comment on above: Performed at: [place] [id number] Director: Cleveland Poon PhD, Phone: [phone] Serum or plasma urea nitroge n measurement (mass/volume)Ordered By: Jake Raymond on 12-31-2023 Urea nitrogen [Mass/Vol] 13 mg/dL 7-18 [facility] Squamous epithelial cells de tection in urine sediment by light microscopyOrdered By: Jake Raymond on 12-31-2023 Epithelial cells.squamous LM Ql (Urine sed) 0 SEEN /hpf 5-10 [facility] Thin prep Papanicolaou smear with manual screeningOrdered By: Jake Raymond on 12-31-2023 Thin prep Papanicolaou smear with manual screening 4.3 g/dL 3.2-5.0 [facility] Thin prep Papanicolaou smear with manual screening 18 U/L 15-37 [facility] Thin prep Papanicolaou smear with manual screening 8 5-15 [facility] Thin prep Papanicolaou smear with manual screening 14.5 mg/L NO RANGE EST. [facility] Thin prep Papanicolaou smear with manual screening 1.00 ng/dL 0.76-1.46 [facility] Urine blood detectionOrdered By: Jake Raymond on 12-31-2023 RBC Ql (U) Negative Negative [facility] Urine clarityOrdered By: Akin Raymond on 12-31-2023 Clarity (U) Clear Clear [facility] Urine color determinationOrd ered By: Jake Raymond on 12-31-2023 Color (U) Yellow Yellow [facility] Urine creatinine measurement (mass/volume)Ordered By: Jake Raymond on 12-31-2023 Creatinine (U) [Mass/Vol] 26.70 mg/dL NO RANGE EST. [facility] Urine glucose detectionOrder ed By: Jake Raymond on 12-31-2023 Glucose Ql (U) Normal mg/dl Normal [facility] Urine leukocyte esterase det ection by dipstickOrdered By: Jake Raymond on 12-31-2023 Leukocyte esterase Test strip Ql (U) Negative Negative [facility] Urine pHOrdered By: Jake newman on 12-31-2023 pH (U) 5.0 [pH] 5.0 - 8.0 [facility] Urine sediment bacteria coun t by microscopy (number/high power field)Ordered By: Jake Raymond on 12-31-2023 Bacteria LM.HPF (Urine sed) [#/Area] 0 /[HPF] None Seen [facility] Urine specific gravity measu rementOrdered By: Jake Raymond on 12-31-2023 Specific gravity (U) [Rel density] 1.010 1.002-1.030 [facility] Urine urobilinogen measureme ntOrdered By: Jake Raymond on 12-31-2023 Urobilinogen Ql (U) Normal mg/dl Normal [facility] Whole blood hemoglobin A1c/t otal hemoglobin ratio (mass fraction)Ordered By: Jake Raymond on 12-31-2023 HbA1c (Bld) [Mass fraction] 6.9 % 3.8-5.6 [facility] Comment on above: Normal < 5.7 % Predi abetic 5.7 - 6.4 % Diabetic >or= 6.5 % Please note range changes. MRI BRAIN WO/W IVCONon 10-[address] [facility] [address] BRAIN WO IVCONon 09-11-20 CT BRAIN WO IVCON * * *Final Report* * * DATE OF EXAM: Sep 11 2023 4:00PM [facility] [id number] - CT BRAIN WO IVCON / [...] and iterative recon COMPARISON: MRI 11/06/2015. RESULT: Examination Scorer (topogram) images: No additional findings. Post-operative change: [...] be communicated with the ordering provider via [employer] staff message or phone message by [employer] within 2 business days of report finalization. --END OF FINDING-- Structural Iron Erector: TRI Transcribe Date/Time: Sep 11 2023 4:01P Dictated by : GHADA DANIELS MD This examination was interpreted and the report reviewed and electronically signed by: GHADA DANIELS MD on Sep 11 2023 4:06PM EST [id number] ACTIONABLE Invalid Interpretation Code [facility] CBC W Auto Differential pane l (Bld)on 09-10-2023 Basophils (Bld) [#/Vol] 0.04 10*3/uL <0.11 k/uL [facility] Basophils/100 WBC (Bld) 0.6 % [facility] Differential cell count method Nom (Bld) Auto [facility] Eosinophils (Bld) [#/Vol] 0.09 10*3/uL <0.46 k/uL [facility] Eosinophils/100 WBC (Bld) 1.3 % [facility] Erythrocyte distribution width (RBC) [Ratio] 12.6 % 11.5 - 15.0 % [facility] Hematocrit (Bld) [Volume fraction] 34.8 % Low 36.0 - 46.0 % [facility] Hemoglobin (Bld) [Mass/Vol] 11.6 g/dL 11.5 - 15.5 g/dL [facility] Immature granulocytes (Bld) [#/Vol] <0.10 k/uL [facility] Immature granulocytes/100 WBC (Bld) 0.1 % [facility] Lymphocytes (Bld) [#/Vol] 3.59 10*3/uL 1.00 - 4.00 k/uL [facility] Lymphocytes/100 WBC (Bld) 52.0 % [facility] MCH (RBC) [Entitic mass] 29.8 pg 26. 0 - 34.0 pg [facility] MCHC (RBC) [Mass/Vol] 33.3 g/dL 30.5 - 36.0 g/dL [facility] MCV (RBC) [Entitic vol] 89.5 fL 80.0 - 100.0 fL [facility] Monocytes (Bld) [#/Vol] 0.45 10*3/uL <0.87 k/uL [facility] Monocytes/100 WBC (Bld) 6.5 % [facility] Neutrophils (Bld) [#/Vol] 2.73 10*3/uL 1.45 - 7.50 k/uL [facility] Neutrophils/100 WBC (Bld) 39.5 % [facility] Nucleated RBC (Bld) [#/Vol] <0.01 k/uL [facility] Nucleated RBC/100 WBC (Bld) [Ratio] 0.0 /100 WBC [facility] Platelet mean volume (Bld) [Entitic vol] 9.9 fL 9.0 - 12.7 fL [facility] Platelets (Bld) [#/Vol] 254 10*3/uL 150 - 400 k/uL [facility] RBC (Bld) [#/Vol] 3.89 10*6/uL Low 3.90 - 5.2 0 m/uL [facility] WBC (Bld) [#/Vol] 6.91 10*3/uL 3.70 - 11.00 k/uL [facility] Comprehensive metabolic 2000 panelon 09-10-2023 Albumin [Mass/Vol] 4.5 g/dL 3.9 - 4.9 g/dL [facility] ALP [Catalytic activity/Vol] 28 U/L Low 34 - 123 U/L [facility] ALT [Catalytic activity/Vol] 26 U/L 7 - 38 U/L [facility] Anion gap [Moles/Vol] 13 mmol/L 9 - 18 mmol/L [facility] AST [Catalytic activity/Vol] 25 U/L 13 - 35 U/L [facility] Bilirubin [Mass/Vol] 0.3 mg/dL 0.2 - 1 .3 mg/dL [facility] Calcium [Mass/Vol] 10.2 mg/dL 8.5 - 10. 2 mg/dL [facility] Chloride [Moles/Vol] 98 mmol/L 97 - 10 5 mmol/L [facility] CO2 [Moles/Vol] 26 mmol/L 22 - 30 mmol/L [facility] Creatinine [Mass/Vol] 0.90 mg/dL 0.58 - 0.96 mg/dL [facility] Estimated Glomerular Filtration Rate 71 mL/min/1.73m >=60 mL/min/1.73 m [facility] Glucose [Mass/Vol] 97 mg/dL 74 - 99 mg/dL [facility] Potassium [Moles/Vol] 3.8 mmol/L 3.7 - 5.1 mmol/L [facility] Protein [Mass/Vol] 8.1 g/dL High 6.3 - 8.0 g/dL [facility] Sodium [Moles/Vol] 137 mmol/L 136 - 144 mmol/L [facility] Urea nitrogen [Mass/Vol] 19 mg/dL 7 - 21 mg/dL [facility] No Panel Informationon 09-10 [facility]iology [facility]narrative[facility] XR Cervical spine AP and Lat eral and obliqueon 09-10-2023 IMPRESSION: No acute osseous abnormalities are identified. Cervical spondylosis. Anatomic Variant: None. Assume 7 cervical vertebrae with counting from the craniocervical junction. Structural Iron Erector: PSCB Transcribe Date/Time: Sep 10 2023 2:12P Dictated by : DUY MONTALVO MD This examination was interpreted and the report reviewed and electronically signed by: DUY MONTALVO MD on Sep 10 2023 2:15PM [facility] DIVISION OF RADIOLOGY * * *Final Report* [...] tissues: Normal. DIVISION OF RADIOLOGY Provider, Sunny terry [place] - 09/10/2023 * * *Final Report* * [...] vertebrae with counting from the craniocervical junction. Structural Iron Erector: TRI Transcribe Date/Time: Sep 10 2023 2:12P Dictated by : DUY MONTALVO MD This examination was interpreted and the report reviewed and electronically signed by: DUY MONTALVO MD on Sep 10 2023 2:15PM EST [facility] XR Cervical spine AP and Lat eral and obliqueOrdered By: Ccf Provider on 09-10-2023 [facility] XR Ribs - right Views and est PAon 09-10-2023 IMPRESSION: No acute abnormality is identified. Structural Iron Erector: TRI Transcribe Date/Time: Sep 10 2023 2:08P Dictated by : DUY MONTALVO MD This examination was interpreted and the report reviewed and electronically signed by: DUY MONTALVO MD on Sep 10 2023 2:12PM EST DIVISION OF RADIOLOGY * * *Final [...] with calcific tendinitis/bursitis. DIVISION OF RADIOLOGY Provider, [facility] - 09/10/2023 * * *Final Report* [...] IMPRESSION IMPRESSION: No acute abnormality is identified. Structural Iron Erector: TRI Transcribe Date/Time: Sep 10 2023 2:08P Dictated by : DUY MONTALVO MD This examination was interpreted and the report reviewed and electronically signed by: DUY MONTALVO MD on Sep 10 2023 2:12PM EST [facility] No Panel Informationon 07-28 [facility] XR Shoulder - right 3 Viewso n 03-28-2023 IMPRESSION: Degenera tive changes and rotator cuff calcific tendinosis. No acute abnormality Structural Iron Erector: TRI Transcribe Date/Time: Mar 28 2023 9:55P Dictated by : ALONSO HERNANDEZ MD This examination was interpreted and the report reviewed and electronically signed by: ALONSO HERNANDEZ MD on Mar 28 2023 9:56PM [facility] DIVISION OF RADIOLOGY * * *Final Report* [...] lower cervical spine. DIVISION OF RADIOLOGY Provider, [facility] - 03/28/2023 * * *Final Report* * [...] rotator cuff calcific tendinosis. No acute abnormality Structural Iron Erector: PSCB Transcribe Date/Time: Mar 28 2023 9:55P Dictated by : ALONSO HERNANDEZ MD This examination was interpreted and the report reviewed and electronically signed by: ALONSO HERNANDEZ MD on Mar 28 2023 9:56PM EST [facility] XR Shoulder - right 3 ViewsO rdered By: Ccf Provider on 03-28-2023 [facility] XR Shoulder - right 3 Viewso n 03-27-2023 Radiology Study observation (narrative) [facility] CARLOS EDUARDO SCREENINGon 03-25-2023 [facility] No Panel Informationon 02-27 [facility] Absolute lymphocyte countOrd ered By: Dr. Armstrong on 01-12-2023 Lymphocytes Auto (Unsp spec) [#/Vol] 2.73 10*3/uL 0.83-4.51 [facility] Basophil percentageOrdered B y: Dr. Armstrong on 01-12-2023 Basophils/100 WBC (Bld) 0.3 % 0-1 [facility] Chloride [Moles/Vol] 100 mmol/L 98-107 [facility] Eosinophils/100 WBC (Bld) 2.3 % 0-5 [facility] Glucose [Mass/Vol] 188 mg/dL 74-106 [facility] Comment on above: Fasting Glucose resu lt greater than or equal to 126 mg/dL suggests DIABETES MELLITUS per A.D.A. criteria. Neutrophils (Bld) [#/Vol] 2.7 10*3/uL 2.0-7.7 [facility] Neutrophils/100 WBC (Bld) 45.5 % 47-70 [facility] Potassium [Moles/Vol] 3.6 mmol/L 3.5-5.1 [facility] Sodium [Moles/Vol] 134 mmol/L 136-145 [facility] WBC (Bld) [#/Vol] 6.0 10*3/uL 4.4-11.0 [facility] Blood erythrocytes count (nu mber/volume)Ordered By: Dr. Armstrong on 01-12-2023 RBC (Bld) [#/Vol] 3.69 10*6/uL 4.2-5.4 [facility] Blood hemoglobin measurement (mass/volume)Ordered By: Dr. Armstrong on 01-12-2023 Hemoglobin (Bld) [Mass/Vol] 11.6 g/dL 12.0-15.0 [facility] Blood lymphocytes/100 leukoc ytesOrdered By: Dr. Armstrong on 01-12-2023 Lymphocytes/100 WBC (Bld) 45.5 % 19-41 [facility] Blood monocytes/100 leukocyt esOrdered By: Dr. Armstrong on 01-12-2023 Monocytes/100 WBC (Bld) 6.2 % 0-10 [facility] Blood platelet mean volumeOr dered By: Dr. Armstrong on 01-12-2023 Platelet mean volume (Bld) [Entitic vol] 9.5 fL 6.2-12.0 [facility] Determination of erythrocyte mean corpuscular volume (MCV)Ordered By: Dr. Armstrong on 01-12-2023 MCV (RBC) [Entitic vol] 93.2 fL 81-99 [facility] Hematocrit Auto (Bld) [Volum e fraction]Ordered By: Dr. Armstrong on 01-12-2023 Hematocrit (Bld) [Volume fraction] 34.4 % 37-47 [facility] Laboratory - Chemistry and C hemistry - challengeOrdered By: Dr. Armstrong on 01-12-2023 CO2 [Moles/Vol] 27.0 mmol/L 21.0-32.0 [facility] Urea nitrogen/Creatinine [Mass ratio] 14.0 mg/mg 10-20 [facility] [facility] - Hematology and Cell countsOrdered By: Dr. Armstrong on 01-12-2023 Erythrocyte distribution width (RBC) [Entitic vol] 43.0 fL 35.1-43.9 [facility] Erythrocyte distribution width (RBC) [Ratio] 12.6 % 11.6-14.6 [facility] Immature granulocytes/100 WBC (Bld) 0.200 % 0.0-0.9 [facility] Comment on above: IG% - Immature Granu locytes (promyelocytes, myelocytes and metamyelocytes) > 1% indicates that a LEFT SHIFT is Present. MCH (RBC) [Entitic mass] 31.4 pg 27.0-32.0 [facility] Nucleated RBC/100 WBC (Bld) [Ratio] 0 % 0-5 [facility] MCHC Auto (RBC) [Mass/Vol]Or dered By: Dr. Armstrong on 01-12-2023 MCHC (RBC) [Mass/Vol] 33.7 g/dL 32-36 [facility] No Panel InformationOrdered By: Dr. Armstrong on 01-12-2023 D-Dimer Quantitative (PE/DVT) 0.46 FEU/ug/m 0.27-0.49 [facility] Comment on above: NORMAL D-Dimer level (<0.50) indicates no DVT or PE. Estimated Creatinine Clearance Calc 51.58 ml/min [facility] Estimated GFR (MDRD) Amer 86 mL/min >60 [facility] Comment on above: GFR Calc Estimated GFR (MDRD) Non-Af Amer 71 mL/min >60 [facility] Comment on above: Non- GFR Calc Troponin I High Sensitivity 7 pg/mL 3.0-54.0 [facility] Comment on above: Please Note: New Charlene t Units and Gender Specific Reference Ranges. For more information see Policy Stat Procedure [place] High Sensitivity Troponin (TNIH) and attachments. Platelets bldOrdered By: Dr. Armstrong on 01-12-2023 Platelets (Bld) [#/Vol] 222 10*3/uL 150-450 [facility] Serum or plasma calcium bernard urement (mass/volume)Ordered By: Dr. Armstrong on 01-12-2023 Calcium [Mass/Vol] 8.8 mg/dL 8.5-10.1 [facility] Serum or plasma creatinine m easurement (mass/volume)Ordered By: Dr. Armstrong on 01-12-2023 Creatinine [Mass/Vol] 0.86 mg/dL 0.55-1.02 [facility] Comment on above: The validity of the calculated GFR & GFRAA in patients over 70 years has not been determined. Clinical correlation is essential. Serum or plasma urea nitroge n measurement (mass/volume)Ordered By: Dr. Armstrong on 01-12-2023 Urea nitrogen [Mass/Vol] 12 mg/dL 7-18 [facility] Thin prep Papanicolaou smear with manual screeningOrdered By: Dr. Armstrong on 01-12-2023 Thin prep Papanicolaou smear with manual screening 7 5-15 [facility] PTH INTACT BLDon 08-09-2022 Parathyrin.intact [Mass/Vol] 29 pg/mL 15 - 65 pg/mL [facility] Calcium.ionized [Moles/Vol]o n 08-08-2022 Calcium.ionized (Bld) [Mass/Vol] 1.32 mmol/L High 1.08 - 1.30 mmol/L [facility] Calcium.ionized adjusted to pH 7.4 (Bld) [Moles/Vol] 1.27 mmol/L 1.08 - 1.30 mmol/L [facility] No Panel Informationon 06-11 IMPRESSION: 1. Evidence of previous calcific tendinitis supraspinatus tendons bilaterally 2. Moderate degenerative changes in each shoulder Structural Iron Erector: TRI Transcribe Date/Time: Jun 11 2022 1:28P Dictated by : MJ BARRIOS DO This examination was interpreted and the report reviewed and electronically signed by: MJ BARRIOS DO on Jun 11 2022 1:29PM EST ZZZ__NOT_ USE_DIVISIO N OF RADIOLOGY No Panel InformationOrdered By: Ccf Provider on 06-11-2022 [facility] XR Shoulder - left 3 Viewson [...] seen. ZZZ_DO_NOT_ USE_DIVISIO N OF RADIOLOGY Provider, [facility] - 06/11/2022 * * *Final Report* * [...] 2. Moderate degenerative changes in each shoulder Structural Iron Erector: PSCB Transcribe Date/Time: Jun 11 2022 1:28P Dictated by : MJ BARRIOS DO This examination was interpreted and the report reviewed and electronically signed by: MJ BARRIOS DO on Jun 11 2022 1:29PM [facility] XR Shoulder - right 3 Viewso n [...] seen. ZZZ_DO_NOT_ USE_DIVISIO N OF RADIOLOGY Provider, [facility] - 06/11/2022 * * *Final Report* * [...] 2. Moderate degenerative changes in each shoulder Structural Iron Erector: PSCB Transcribe Date/Time: Jun 11 2022 1:28P Dictated by : MJ BARRIOS DO This examination was interpreted and the report reviewed and electronically signed by: JM BARRIOS DO on Jun 11 2022 1:29PM [facility] No Panel Informationon 06-10 Radiology Study observation (narrative) [facility] XR SHOULDER GENERAL 3V OR MO RE AP/TRUE AP/OTHER RIGHTon 06-10-2022 [facility] No Panel Informationon 02-28 [facility] SPIROMETRY WITH DILATOR IF O BSTRUCTEDon 02-28-2022 ZVP65-62% PRE (L/S) 1.43 L/S [facility] FEV1 PRE (L) 1.94 L [facility] FEV1/FVC PRE (%) 0.74 % [facility] FVC PRE (L) 2.60 L [facility] PEF PRE (L/S) 5.34 L/S [facility] US KIDNEY/BLADDERon 02-07-20 [facility] XR Chest PA and Lateralon IMPRESSION: Stable chest. No acute radiographic abnormality. Structural Iron Erector: PSCB Transcribe Date/Time: Jan 24 2022 6:16P Dictated by : PAOLA RAMOS MD This examination was interpreted and the report reviewed and electronically signed by: PAOLA RAMOS MD on Jan 24 2022 6:20PM [facility] DIVISION OF RADIOLOGY * * *Final Report* [...] mild scoliotic curvature. DIVISION OF RADIOLOGY Provider, [facility] [place] - 01/24/2022 * * *Final Report* * [...] IMPRESSION: Stable chest. No acute radiographic abnormality. Structural Iron Erector[facility] Transcribe Date/Time: Jan 24 2022 6:16P Dictated by : PAOLA RAMOS MD This examination was interpreted and the report reviewed and electronically signed by: PAOLA RAMOS MD on Jan 24 2022 6:20PM EST [facility] Radiology Study observation (narrative) [facility] XR Chest PA and LateralOrder ed By: Ccf Provider on 01-24-2022 [facility] No Panel Informationon 09-19 Radiology Study observation (narrative) [facility] XR Humerus - left AP and Lat eralon 09-19-2021 IMPRESSION: NO ACUTE FRACTURE OR FOCAL ABNORMALITY Structural Iron Erector: [facility] Transcribe Date/Time: Sep 19 2021 5:36P Dictated by : SHUBHAM LION MD This examination was interpreted and the report reviewed and electronically signed by: SHUBHAM LION MD on Sep 19 2021 5:37PM [facility] DIVISION OF RADIOLOGY * * *Final Report* [...] mineralization and alignment DIVISION OF RADIOLOGY Provider, Sunny Berkowitz [facility] - 09/19/2021 * * *Final Report* [...] IMPRESSION: NO ACUTE FRACTURE OR FOCAL ABNORMALITY Structural Iron Erector: [facility] Transcribe Date/Time: Sep 19 2021 5:36P Dictated by : SHUBHAM LION MD This examination was interpreted and the report reviewed and electronically signed by: SHUBHAM LION MD on Sep 19 2021 5:37PM [facility] XR Pelvis and Hip - left AP and Lateral frogon 09-19-2021 IMPRESSION: DEGENERATIVE CHANGES DESCRIBED. FINDINGS DESCRIBED MAY BE CONSISTENT WITH AVASCULAR NECROSIS, WITHOUT EVIDENCE OF COLLAPSE OR FRAGMENTATION. IF CLINICALLY INDICATED, MRI RECOMMENDED Structural Iron Erector: [facility]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 Diastolic blood pressure 68 mm[Hg] NA Mirza PA-C Work Phone: [facility] 05-01-2023 13:43-0400 Heart rate 49 /min NA Mirza PA-C Work Phone: [facility] 05-01-2023 13:43-0400 Respiratory rate 16 /min NA Mirza PA-C Work Phone: [facility] 05-01-2023 13:43-0400 SaO2% (BldA) [Mass fraction] 97 % NA Mirza PA-C Work Phone: [facility] 05-01-2023 13:43-0400 Systolic blood pressure 126 mm[Hg] NA Mirza PA-C Work Phone: [facility] 02-17-2023 13:58-0400 Body weight 66.68 kg Clarice Petersen MD Work Phone: [facility] 02-17-2023 13:58-0400 Diastolic blood pressure 64 mm[Hg] Clarice Petersen MD Work Phone: [facility] 02-17-2023 13:58-0400 Heart rate 74 /min Clarice Petersen MD Work Phone: [facility] 02-17-2023 13:58-0400 SaO2% (BldA) [Mass fraction] 98 % Clarice Petersen MD Work Phone: [facility] 02-17-2023 13:58-0400 Systolic blood pressure 122 mm[Hg] Clarice Petersen MD Work Phone: [facility] 02-05-2023 18:16-0400 Body height 157.48 cm [facility] 02-05-2023 18:16-0400 Body mass index (BMI) [Ratio] 27.1 kg/m2 [facility] 02-05-2023 18:16-0400 Body temperature 96.2 [degF] [facility] 02-05-2023 18:16-0400 Body weight 67.13 kg [facility] 02-05-2023 18:16-0400 Diastolic blood pressure 67 mm[Hg] [facility] 02-05-2023 18:16-0400 Heart rate 92 /min [facility] 02-05-2023 18:16-0400 Respiratory rate 18 /min [facility] 02-05-2023 18:16-0400 SaO2% (BldA) [Mass fraction] 100 % [facility] 02-05-2023 18:16-0400 Systolic blood pressure 133 mm[Hg] [facility] 01-12-2023 07:39-0500 Body temperature 97 [degF] [facility] 01-12-2023 07:39-0500 Diastolic blood pressure 78 mm[Hg] [facility] 01-12-2023 07:39-0500 Heart rate 78 /min [facility] 01-12-2023 07:39-0500 Respiratory rate 16 /min [facility] 01-12-2023 07:39-0500 SaO2% (BldA) [Mass fraction] 99 % [facility] 01-12-2023 07:39-0500 Systolic blood pressure 115 mm[Hg] [facility] 01-12-2023 06:29-0500 Body mass index (BMI) [Ratio] 29.4 kg/m2 [facility] 01-12-2023 06:29-0500 Body weight 72.9 kg [facility] 12-26-2022 10:25-0500 Body weight 67.13 kg NA Mirza PA-C Work Phone: [facility] 12-26-2022 10:25-0500 Diastolic blood pressure 62 mm[Hg] NA Mirza PA-C Work Phone: [facility] 12-26-2022 10:25-0500 Heart rate 76 /min NA Mirza PA-C Work Phone: [facility] 12-26-2022 10:25-0500 Respiratory rate 16 /min NA Mirza PA-C Work Phone: [facility] 12-26-2022 10:25-0500 SaO2% (BldA) [Mass fraction] 96 % NA Mirza PA-C Work Phone: [facility] 12-26-2022 10:25-0500 Systolic blood pressure 108 mm[Hg] NA Mirza PA-C Work Phone: [facility] 08-08-2022 11:34-0400 Body weight 67.13 kg NA Mirza PA-C Work Phone: [facility] 08-08-2022 11:34-0400 Diastolic blood pressure 60 mm[Hg] NA Mirza PA-C Work Phone: [facility] 08-08-2022 11:34-0400 Heart rate 74 /min NA Mirza PA-C Work Phone: [facility] 08-08-2022 11:34-0400 Respiratory rate 16 /min NA Mirza PA-C Work Phone: [facility] 08-08-2022 11:34-0400 SaO2% (BldA) [Mass fraction] 96 % NA Mirza PA-C Work Phone: [facility] 08-08-2022 11:34-0400 Systolic blood pressure 116 mm[Hg] NA Mirza PA-C Work Phone: [facility] 06-12-2022 14:59-0400 Body height 154.9 cm Clarice Petersen MD Work Phone: [facility] 06-12-2022 14:59-0400 Body weight 68.31 kg Clarice Petersen MD Work Phone: [facility] 06-12-2022 14:59-0400 Diastolic blood pressure 66 mm[Hg] Clarice Petersen MD Work Phone: [facility] 06-12-2022 14:59-0400 Heart rate 74 /min Clarice Petersen MD Work Phone: [facility] 06-12-2022 14:59-0400 SaO2% (BldA) [Mass fraction] 97 % Clarice Petersen MD Work Phone: [facility] 06-12-2022 14:59-0400 Systolic blood pressure 112 mm[Hg] Clarice Petersen MD Work Phone: [facility] 03-14-2022 08:52-0400 Diastolic blood pressure 64 mm[Hg] Fran Salcido MD Work Phone: [facility] 03-14-2022 08:52-0400 Heart rate 58 /min Fran Salcido MD Work Phone: [facility] 03-14-2022 08:52-0400 Respiratory rate 16 /min Fran Salcido MD Work Phone: [facility] 03-14-2022 08:52-0400 SaO2% (BldA) [Mass fraction] 96 % Fran Salcido MD Work Phone: [facility] 03-14-2022 08:52-0400 Systolic blood pressure 121 mm[Hg] Fran Salcido MD Work Phone: [facility] 03-14-2022 08:34-0400 Body temperature 97.9 [degF] Fran Salcido MD Work Phone: [facility] 03-12-2022 15:12-0400 Body weight 69.85 kg Clarice Petersen MD Work Phone: [facility] 03-12-2022 15:12-0400 Diastolic blood pressure 70 mm[Hg] Clarice Petersen MD Work Phone: [facility] 03-12-2022 15:12-0400 Heart rate 69 /min Clarice Petersen MD Work Phone: [facility] 03-12-2022 15:12-0400 Respiratory rate 16 /min Clarice Petersen MD Work Phone: [facility] 03-12-2022 15:12-0400 SaO2% (BldA) [Mass fraction] 97 % Clarice Petersen MD Work Phone: [facility] 03-12-2022 15:12-0400 Systolic blood pressure 110 mm[Hg] Clarice Petersen MD Work Phone: [facility] 02-28-2022 10:28-0400 Body height 155.6 cm Barbie Ruiz MD Work Phone: [facility] 02-28-2022 10:28-0400 Body weight 70.76 kg Barbie Ruiz MD Work Phone: [facility] 02-28-2022 10:28-0400 Heart rate 67 /min Barbie Ruiz MD Work Phone: [facility] 02-28-2022 10:28-0400 Respiratory rate 14 /min Barbie Ruiz MD Work Phone: [facility] 02-28-2022 10:28-0400 SaO2% (BldA) [Mass fraction] 94 % Barbie Ruiz MD Work Phone: [facility] 02-28-2022 10:25-0400 Body height 155.6 cm Respiratory Wstr Work Phone: [facility] 02-28-2022 10:25-0400 Body weight 70.76 kg Respiratory Wstr Work Phone: [facility] 02-28-2022 10:25-0400 Heart rate 67 /min Respiratory Wstr Work Phone: [facility] 02-28-2022 10:25-0400 Respiratory rate 14 /min Respiratory Wstr Work Phone: [facility] 02-28-2022 10:25-0400 SaO2% (BldA) [Mass fraction] 94 % Respiratory Wstr Work Phone: [facility] Encounters Encounter Date Encounter Type Care Provider Facility Start: 07-28-2025 End: 07-28-2025 Patient encounter procedure Evelia Kimble NP-C -[facility] [place] Work Phone: Start: 07-28-2025 End: 07-28-2025 ambulatory Dennis Chow Facility:[facility] Start: 07-28-[address] Nathan Chow MD Work Phone: [facility] Start: 07-28-2025 End: 07-28-2025 Patient encounter procedure Evelia Kimble NP-C -[facility] Work Phone: Start: 07-28-2025 End: 07-28-2025 Patient encounter status Evelia Kimble NP-C [facility] Start: 07-28-2025 End: 07-28-[address] Dennis Chow MD Work Phone: -[facility] Start: 07-20-[address] Conor Barros MD -Physical Therapy Work Phone: Start: 07-20-2025 ambulatory Conor Barros Facility :[facility] Start: 07-20-2025 End: 07-20-[address] Dennis Chow MD Work Phone: -[facility]atory [facility] Start: 07-20-2025 End: 07-20-2025 Patient encounter procedure Ginny DUNCAN -Laboratory [facility] Work Phone: Start: 07-20-2025 End: 07-20-2025 Patient encounter procedure Ginny Acevedo NP-C -[facility] Work Phone: Start: 07-20-2025 End: 07-20-[address] Dennis Chow MD Work Phone: -[facility] Start: 07-20-2025 End: 07-20-2025 ambulatory Dennis Chow Facility:[facility] Start: 07-18-2025 ambulatory Conor Barros Facility :[facility] Start: 07-14-2025 End: 07-14-[address] Dennis Chow MD Work Phone: -Laboratory Start: 07-14-2025 End: 07-14-[address] Dennis Chow MD -Laboratory Work Phone: Start: 07-14-2025 End: 07-14-2025 ambulatory Dennis Chow Facility:[facility] Start: 07-08-2025 End: 07-08-2025 ambulatory Rachel Madden NP-C Work Phone: -[facility]patient [facility] Start: 07-08-2025 End: 07-08-[address] Dennis Chow MD -Outpatient [facility] Work Phone: Start: 07-08-2025 End: 07-08-2025 ambulatory Dennis Chow Facility:[facility] Start: 07-05-2025 End: 07-05-[address] Manolo Kothari MD -[facility] Start: 07-05-2025 End: 07-05-2025 ambulatory No Primary Care Physician -[facility] Start: 06-27-2025 End: 06-27-[address] Dennis Chow MD -[facility] Work Phone: Start: 06-27-2025 End: 06-27-2025 ambulatory No Primary Care Physician -[facility] Start: 06-21-2025 End: 06-21-2025 ambulatory No Primary Care Physician -Laboratory Specimen Start: 06-21-2025 End: 06-21-2025 Patient encounter procedure Ginny Acevedo ROAD GRADER-C -Laboratory Specimen Work Phone: Start: 06-21-2025 End: 06-21-2025 Patient encounter procedure Ginny Acevedo ROAD GRADER-C -[facility] Work Phone: Start: 06-21-2025 End: 06-21-2025 ambulatory No Primary Care Physician -[facility] Start: 06-21-2025 End: 06-21-2025 ambulatory Dennis [place] Facility:[facility] Start: 06-10-2025 End: 06-10-[address] Janie Elias MD -[facility] Work Phone: Start: 06-10-2025 End: 06-10-2025 ambulatory No Primary Care Physician -[facility] Start: 06-10-2025 ambulatory Dennis Claudine Facility :[facility] Start: 06-10-2025 Non-patient / Non-visit Dr. Akhil HOLGUIN -[facility] Start: 06-10-2025 End: 06-10-2025 ambulatory No Primary Care Physician -Cardiovascular Services Start: 06-10-2025 End: 06-10-[address] Dao Luciano MD -Cardiovascular Services Work Phone: Start: 06-10-2025 End: 06-10-2025 ambulatory Dao Luciano Facility:[facility] Start: 06-07-2025 End: 06-07-2025 Patient encounter procedure BIM NURSE -[facility] Work Phone: Start: 06-07-2025 End: 06-07-2025 ambulatory No Primary Care Physician -[facility] Start: 05-21-[address] Qi Luciano MD -Cardiovascular Services Work Phone: Start: 05-21-2025 ambulatory Dao Luciano Facility :[facility] Start: 05-21-2025 Non-patient / Non-visit Dr. Elenita Luciano MD -[facility] Work Phone: Start: 05-16-2025 End: 05-16-[address] Dao Luciano MD -[facility] Work Phone: Start: 05-16-2025 End: 05-16-[address] Jake Raymond MD Work Phone: -[facility] Start: 05-05-2025 ambulatory Amanda Milton Facili ty:[facility] Start: 04-07-2025 End: 04-07-2025 Patient encounter procedure Amanda WILLIS -[facility] Work Phone: Start: 04-07-2025 End: 04-07-2025 ambulatory Alexus Sven DO Work Phone: [facility] Work Phone: Start: 04-06-2025 End: 04-06-2025 Patient encounter procedure ROWAN Madden -[facility] Work Phone: Start: 04-06-2025 End: 04-06-2025 ambulatory Alexus Sven DO Work Phone: [facility] Work Phone: Start: 04-04-2025 ambulatory Rachel Madden Facili ty:[facility] Start: 04-04-2025 Non-patient / Non-visit Dr. Mitch mclean DO -[facility] Start: 03-31-2025 End: 03-31-2025 ambulatory Alexus Sven DO Work Phone: [facility] Work Phone: Start: 03-31-2025 End: 03-31-[address] Dennis Chow MD -Outpatient Bone Densitometry Work Phone: Start: 03-31-2025 End: 03-31-2025 ambulatory Dennis Chow Facility:[facility] Start: 03-28-2025 End: 03-28-2025 Patient encounter procedure ROWAN Madden -Pulmonary Services/Neurology Work Phone: Start: 03-28-2025 End: 03-28-2025 ambulatory Rachel Madden Facility:[facility] Start: 03-24-2025 Non-patient / Non-visit Dr. Mitch mclean DO -[facility] Start: 03-24-2025 End: 03-24-2025 ambulatory Alexus Machuca DO Work Phone: [facility] Work Phone: Start: 03-24-2025 End: 03-24-[address] Racehl Jose Alejandro -Pulmonary Services/Neurology Work Phone: Start: 03-24-2025 End: 03-24-2025 ambulatory Rachel Madden Facility:[facility] Start: 03-22-2025 End: 03-22-2025 ambulatory Alexus Machuca DO Work Phone: [facility] Work Phone: Start: 03-22-2025 End: 03-22-[address] Dennis Chow MD -Ultrasound [facility] Work Phone: Start: 03-22-2025 End: 03-22-2025 ambulatory Dennis Chow Facility:[facility] Start: 03-17-2025 End: 03-17-2025 ambulatory Alexus Machuca DO Work Phone: [facility] Work Phone: Start: 03-17-2025 End: 03-17-2025 Patient encounter procedure ROWAN Madden -Cat Scan, [facility] Work Phone: Start: 03-16-2025 End: 03-16-[address] Dennis Chow MD -[place] [place] [facility] Work Phone: Start: 03-16-2025 End: 03-17-2025 ambulatory Rachel Madden Facility:[facility] Start: 03-10-2025 End: 03-10-2025 ambulatory Dennis Chow MD Work Phone: [facility] Comment on above: Allied Health Visit (Medication Adherence Outreach ) Start: 03-09-2025 ambulatory Pernell Philippe Facility :[facility] Start: 03-09-2025 Non-patient / Non-visit Pernelllula Da Silva nd DO -[facility] Start: 03-09-2025 End: 03-09-2025 Admission to same day surgery center Pernellhawa Philippe DO -Endoscopy Work Phone: Start: 03-09-2025 End: 03-09-2025 ambulatory Pernell Jose Martin Facility:[facility] Start: 02-18-2025 End: 02-18-2025 ambulatory Cristhian Smith [...] End: 02-02-2025 Patient encounter procedure ROWAN Madden [facility] Work Phone: Start: 02-02-2025 End: 02-02-2025 ambulatory Rachel Madden Facility:[facility] Start: 01-05-2025 End: 01-05-2025 ambulatory Alexus Machuca DO Work Phone: [facility] Work Phone: Start: 01-05-2025 End: 01-05-2025 Patient encounter procedure Pernell Jose Martin DO -Laboratory, Specimen Work Phone: Start: 01-05-2025 End: 01-05-2025 ambulatory Pernell Jose Martin Facility:[facility] Start: 12-28-2024 End: 12-28-2024 Patient encounter procedure Pernell Philippe DO -Laboratory Work Phone: Start: 12-28-2024 End: 12-28-2024 Patient encounter procedure Pernell Philippe DO -[place] [place] [facility] Work Phone: Start: 12-28-2024 End: 12-28-2024 ambulatory Alexus Bloomer Facility:[facility] Start: 12-28-2024 End: 12-28-2024 ambulatory Pernell Philippe Facility:[facility] Start: 12-17-2024 End: 12-17-2024 ambulatory Iraida Page MA [facility] [place] Start: 12-17-2024 End: 12-17-2024 Patient encounter procedure Iraida Page MA [facility] [place] Comment on above: Population Health Na vigation Outreach ([employer] Unknown PCP/) Start: 11-12-2024 End: 11-15-2024 Refill Christie Vetovitz PA-C Work Phone: Orthopaedics Comment on above: Refill Request Start: 11-08-2024 End: 11-08-2024 Refill Christie Vetovitz PA-C Work Phone: Orthopaedics Comment on above: Refill Request Start: 10-18-2024 End: 10-18-[address] Juarez Harris MD -Radiology, [facility] Work Phone: Start: 10-18-2024 End: 10-18-2024 ambulatory Alexus Bloomer Facility:[facility] Start: 09-30-2024 End: 09-30-[address] Juarez Harris MD -Laboratory, Specimen Work Phone: Start: 09-30-2024 End: 09-30-2024 ambulatory Alexus Bloomer Facility:[facility] Start: 09-10-2024 End: 09-10-2024 ambulatory CRISTHIAN AMPARO Facility:[facility] Start: 09-10-2024 End: 09-10-2024 Office outpatient visit 15 minutes Juarez Velasco MD Work Phone: [facility] Comment on above: Sore throat (Primary Dx); [...] Refill M Wali Mirza PA-C Work Phone: [facility] [place] Comment on above: Refill Request Patient appt/questio n Start: 2024 End: 2024 Patient encounter procedure Orville Tavares APRN.CNP Work Phone: Hematology/Oncology Start: 2024 End: 2024 ambulatory Orville Tavares APRN.FLATWORK SUPERVISOR Work Phone: Hematology/Oncology Comment on above: Monoclonal gammopath y Start: 08-02-2024 End: 08-02-2024 Telephone encounter Cristhian Smith DO Work Phone: Hematology/Oncology Comment on above: Patient Question Start: 07-29-2024 End: 07-29-2024 ambulatory CRISTHIAN Nathan AMPARO Facility:[facility] Start: 07-29-2024 End: 07-29-2024 ambulatory CRISTHIAN Nathan MISSAELOdalis Facility:[facility] Start: 07-29-2024 End: 07-29-2024 Subsequent hospital visit by physician Mri Radio [facility] (I-Stat/1.5t) Work Phone: Radiology Comment on above: Monoclonal gammopath y [D47.2] Start: 07-06-2024 End: 07-08-2024 Telephone encounter Sahra Moreno APRN.FLATWORK SUPERVISOR [facility]: [facility] Comment on above: Results Refill Request Start: 07-05-2024 End: 07-06-2024 Documentation procedure Mammography Coordinator [facility] Start: 07-05-2024 End: 07-06-2024 Letter encounter Mammography Coordinator [facility] Start: 07-02-2024 End: 07-02-2024 ambulatory HEMANTH CARRANZA Facility:[facility] Start: 07-02-2024 End: 07-02-2024 Subsequent hospital visit by physician Screen Mammo [facility] Mammogram Comment on above: Encounter for screen ing mammogram for breast cancer [Z12.31] Start: 06-30-2024 End: 07-05-2024 ambulatory Hemanth Carranza MD Work Phone: Internal Medicine [place] [phone] Start: 06-24-2024 End: 06-24-2024 Subsequent hospital visit by physician Kia [facility] Kevin Lugo Work Phone: Radiology Comment on above: Monoclonal gammopath y [D47.2] Start: 06-24-2024 End: 06-28-2024 ambulatory Cristhian Smith DO Work Phone: Hematology/Oncology Comment on above: Monoclonal gammopath y (Primary Dx) Refill Request Start: 06-24-2024 End: 06-24-2024 Patient encounter procedure Cristhian Smith DO Work Phone: Hematology/Oncology Start: 06-21-2024 Telephone encounter No Pcp ABEL [facility] Kevin Comment on above: Patient Question Start: 06-08-2024 ambulatory Carolina le PA-C Work Phone: Family Medicine [place] Comment on above: Reestablish as your patient Reestablish as patie nt Start: 06-06-2024 Telephone encounter Cristhian hamlin DO Work Phone: Hematology/Oncology Comment on above: Results Start: 06-02-2024 End: 06-02-2024 ambulatory CRISTHIAN SMITH Facility:[facility] Start: 06-02-2024 End: 06-02-2024 ambulatory Cristhian Smith DO Work Phone: Hematology/Oncology Comment on above: Monoclonal gammopath y (Primary Dx); Iron deficiency anemia secondary to inadequate dietary iron intake Start: 06-02-2024 End: 06-02-2024 Patient encounter procedure Cristhian Smith DO Work Phone: Hematology/Oncology Start: 06-01-2024 Telephone encounter Cristhian hamlin DO Work Phone: Hematology/Oncology Start: 04-21-2024 End: 04-21-2024 ambulatory PELON WINCHESTER Facility:[facility] Start: 04-21-2024 End: 04-21-2024 Patient encounter [...] Dx) Start: 02-13-2024 Telephone encounter No Pcp ARCHITECTURAL REPRESENTATIVE Int [facility] Medicine [place] Comment on above: Medication Request Start: 02-12-2024 End: 02-12-2024 ambulatory [facility] Work Phone: Start: 02-12-2024 End: 02-12-2024 Patient encounter procedure [facility]-Radiology, [place] Work Phone: Start: 02-10-2024 End: 02-15-2024 ambulatory CAESAR MISHRA MD Facility:B Start: 02-10-2024 End: 02-14-2024 Outreach Lab CAESAR MISHRA MD [facility] Start: 02-10-2024 End: 02-11-2024 ambulatory CAESAR MISHRA MD Facility:[facility] Start: 02-10-2024 End: 02-10-2024 Patient encounter procedure CAESAR MISHRA MD [facility] Start: 01-31-2024 ambulatory [facility]ul [facility] Start: 01-31-2024 Patient encounter procedure Azul Vega MA [facility] [place] Comment on above: Population Health Na vigation Outreach ([facility] Annual Wellness Visit ) Start: 01-14-2024 End: 01-14-2024 ambulatory [facility] Work Phone: Start: 01-14-2024 End: 01-14-2024 Patient encounter procedure [facility] Start: 01-08-2024 End: 01-08-2024 ambulatory [facility] Work Phone: Start: 01-08-2024 End: 01-08-2024 Patient encounter procedure [facility] Work Phone: Start: 12-31-2023 End: 12-31-2023 [facility] encounter [facility] Start: 12-17-2023 Refill Clarice Petersen MD Work Phone: Family Medicine [place] Comment on above: Refill Request Start: 12-15-2023 Telephone encounter Sherie macdonald APRN.CNP Work Phone: Pulmonary Medicine Comment on above: Appointment ([facility] CT Scan) Start: 12-11-2023 Telephone encounter Carolina Mirza PA-C Work Phone: Family Medicine [place] Comment on above: Insurance Authorizat ion Start: 12-06-2023 ambulatory Carolina le PA-C Work Phone: Family Medicine [place] Comment on above: Trulicity prescripti on Start: 10-16-2023 Refill Barbie Ruiz MD Work Phone: Pulmonary Medicine Comment on above: Refill Request Start: 10-14-2023 End: 10-14-2023 Subsequent hospital visit by physician Mri Radio [facility] (I-Stat/1.5t) Work Phone: Radiology Comment on above: Syncope and collapse [R55] Start: 10-14-2023 End: 10-14-2023 Patient encounter procedure Sherie Melgoza APRN.FLATWORK SUPERVISOR Work Phone: Pulmonary Medicine Comment on above: Encounter for screen ing for lung cancer (Primary Dx); Tobacco use current Start: 09-30-2023 Telephone encounter Carolina Mirza PA-C Work Phone: Family Medicine [place] Start: 09-29-2023 End: 09-29-2023 Patient encounter procedure Carolina Mirza PA-C Work Phone: [facility] Kevin Comment on above: Syncope and collapse (Primary Dx); Essential hypertension; Pulmonary HTN (HCC); Chronic obstructive pulmonary disease, unspecified COPD type (HCC); Tobacco abuse; Mixed hyperlipidemia; Type 2 diabetes mellitus with diabetic neuropathy, without long-term current use of insulin (HCC); Chronic antral gastritis; Gastroesophageal reflux disease without esophagitis; Degeneration of lumbar or lumbosacral intervertebral disc; Dyshidrotic hand dermatitis; Encounter for screening for lung cancer; Vaginal pain; Major depressive disorder, recurrent 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); At risk for polypharmacy; Controlled type 2 diabetes mellitus without complication, without long-term current use of insulin (HCC) Start: 09-11-2023 ambulatory SAHRA PARKERLOGMARISA Facility :[facility] Start: 09-10-2023 ambulatory Clarice Petersen MD Work Phone: [facility] [place] Comment on above: Syncope Start: 09-10-2023 End: 09-10-2023 Subsequent hospital visit by physician Kia [facility] Kevin Work Phone: Radiology Comment on above: Neck pain [M54.2] Start: 09-10-2023 End: 09-10-2023 Patient encounter procedure Sahra Moreno APRN.FLATWORK SUPERVISOR Work Phone: Family Medicine [place] Comment on above: Syncope and collapse (Primary Dx); Neck pain; Rib pain Start: 08-08-2023 Refill Carolina le PA-C Work Phone: [facility] [place] Comment on above: Refill Request Start: 07-29-2023 ambulatory Carolina le PA-C Work Phone: [facility] [place] Comment on above: Blood pressure meds Start: 07-29-2023 Telephone encounter Clarice Petersen MD Work Phone: [facility] [place] Comment on above: Results Start: 07-28-2023 End: 07-28-2023 Nursing evaluation of patient and report Nurse Card Admin [facility] Work Phone: Cardiology Comment on above: Screening for ischem ic heart disease (Primary Dx) Start: 07-28-2023 End: 07-28-2023 Subsequent hospital visit by physician [facility] Work Phone: Nuclear Medicine Comment on above: Encounter for screen ing for cardiovascular disorders [Z13.6] Start: 07-22-2023 ambulatory Nurse Card Adm in [facility] Work Phone: Cardiology Comment on above: Stress Test Instruct ions for 07/28/23 Start: 07-22-2023 E-mail encounter fro m caregiver Nurse Card Admin [facility] Work Phone: [facility] Start: 06-24-2023 Refill Carlos Dickson MD Work Phone: Orthopaedics Comment on above: Refill Request Start: 05-27-2023 ambulatory Nurse Card Adm in [facility] Work Phone: Cardiology Comment on above: Stress Test Instruct ions for 06/02/23 Start: 05-27-2023 E-mail encounter fro m caregiver Nurse Card Admin [facility] Work Phone: [facility] Start: 05-25-2023 ambulatory Clarice Petersen MD Work Phone: [facility] [place] Comment on above: Blood Pressure Start: 05-19-2023 Refill Clarice Petersen MD Work Phone: [facility] [place] Comment on above: Refill Request Start: 05-01-2023 End: 05-01-2023 Patient encounter procedure M Wali Mirza PA-C Work Phone: [facility] [place] Comment on above: Essential hypertensi on (Primary Dx) Start: 04-28-2023 End: 04-28-2023 Patient encounter procedure Carlos Dickson MD Work Phone: Orthopaedics Comment on above: Shoulder impingement (Primary Dx); Calcific tendonitis of right shoulder; Sternoclavicular joint pain, right Start: 04-18-2023 Refill Clarice Petersen MD Work Phone: [facility] [place] Comment on above: Refill Request Start: 03-27-2023 End: 03-27-2023 Subsequent hospital visit by physician Xr [facility] [place] Work Phone: Radiology Comment on above: Chronic right should er pain [M25.511, G89.29] Start: 03-25-2023 End: 03-25-2023 Subsequent hospital visit by physician Screen Mammo [facility] Mammogram Comment on above: Screening breast exa mination [Z12.39] Start: 03-21-2023 Refill Clarice Petersen MD Work Phone: [facility] [place] Comment on above: Refill Request Start: 02-27-2023 End: 02-27-2023 Subsequent hospital visit by physician [facility] Work Phone: Radiology Comment on above: Elevated lipase [R74 .8] Start: 02-21-2023 Telephone encounter Clarice Petersen MD Work Phone: [facility] Comment on above: Patient Update Start: 02-20-2023 Telephone encounter Clarice Petersen MD Work Phone: [facility] [place] Comment on above: Results Start: 02-17-2023 End: 02-17-2023 Patient encounter procedure Clarice Petersen MD Work Phone: [facility] Comment on above: Laceration of right middle finger without foreign body without damage to nail, subsequent encounter (Primary Dx) Start: 02-05-2023 End: 02-05-2023 [facility] Start: 01-27-2023 Telephone encounter Clarice Petersen MD Work Phone: Family Medicine [place] Comment on above: Results Start: 01-25-2023 Orders Only Carolina Rangel on PA-[employer] Work Phone: [facility] [place] Comment on above: Elevated blood prote in (Primary Dx); Elevated lipase; Elevated lymphocytes Start: 01-24-2023 Refill Clarice Petersen MD Work Phone: [facility] [place] Comment on above: Refill Request Start: 01-23-2023 End: 01-23-2023 Telemedicine consultation with patient Clarice Petersen MD Work Phone: [facility] Start: 01-23-2023 End: 01-23-2023 Telephone encounter Clarice Petersen MD Work Phone: [facility] [place] Comment on above: Future Appointment ( virtual apt today 01/23/23) Epigastric pain (Yasmin iwona Dx); Major depressive disorder, recurrent 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); Type 2 diabetes mellitus with diabetic neuropathy, without long-term current use of insulin (HCC); Chronic obstructive pulmonary disease, unspecified COPD type (HCC); Nausea; Diarrhea, unspecified type Start: 01-12-2023 End: 01-12-2023 Emergency department patient visit [facility]-Emergency Department Start: 01-02-2023 ambulatory Carolina Rangel on [employer] Work Phone: [facility] [place] Comment on above: Test results Start: 12-26-2022 End: 12-26-2022 Patient encounter procedure Carolina Keyes Hermes [employer] Work Phone: [facility] [place] Comment on above: Essential hypertensi on (Primary [...] Start: 09-11-2022 ambulatory Nurse Card Adm in [facility] Work Phone: Cardiology Comment on above: Stress Test Instruct ions Start: 09-11-2022 E-mail encounter fro m caregiver Nurse Card Admin [facility] Work Phone: [facility] Start: 08-08-2022 End: 08-08-2022 Patient encounter procedure Carolina Mirza PA-C Work Phone: [facility] [place] Comment on above: Chronic obstructive pulmonary disease, unspecified COPD type (HCC) (Primary Dx); Asthma with COPD ([facility]); Pulmonary HTN ([facility]); Tobacco abuse; Essential hypertension; Mixed hyperlipidemia; PAD (peripheral artery disease) ([facility]); Type 2 diabetes mellitus with diabetic neuropathy, without long-term current use of insulin ([facility]); Gastroesophageal reflux disease, unspecified whether esophagitis present; Lung nodules; Dysphagia, unspecified type; Degeneration of lumbar or lumbosacral intervertebral disc; Back pain, unspecified back location, unspecified back pain laterality, unspecified chronicity; Carpal tunnel 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; Acute pain of right shoulder; Acute pain of left shoulder; Severe episode of recurrent major depressive disorder, without psychotic features ([facility]); Hypercalcemia; Vitamin D deficiency; Need for influenza vaccination; Need for vaccination; Encounter for screening for osteoporosis; Encounter for screening for cardiovascular disorders; Chest pain, unspecified type; SVT (supraventricular tachycardia) ([facility]); Palpitations; Medicare annual wellness visit, initial Start: 07-05-2022 Refill Clarice Petersen MD Work Phone: Family Medicine [place] Comment on above: Refill Request Start: 06-12-2022 End: 06-12-2022 Patient encounter procedure Clarice Petersen MD Work Phone: Family Medicine [place] Comment on above: Type 2 diabetes [...] 06-10-2022 Subsequent hospital visit by physician Xr [facility] Kevin Work Phone: Radiology Comment on above: Acute pain of left s homichell [M25.512] Start: 06-03-2022 Telephone encounter Clarice Petersen MD Work Phone: [facility] [place] Comment on above: Patient Question; Or ders Start: 05-24-2022 End: 05-24-2022 Patient encounter procedure Clarice Petersen MD Work Phone: [facility] [place] Comment on above: Acute pain of left s houlder (Primary Dx); Recurrent major depression in partial remission (HCC) Start: 05-03-2022 Refill Clarice Petersen MD Work Phone: [facility] [place] Comment on above: Refill Request Start: 03-19-2022 ambulatory Clarice Petersen MD Work Phone: [facility] [place] Comment on above: Blood sugars Start: 03-19-2022 End: 03-19-2022 [facility] Start: 03-14-2022 End: 03-14-2022 Subsequent hospital visit by physician Fran Salcido MD Work Phone: [place] [facility] Comment on above: History of gastric p olyp [Z87.19] Start: 03-13-2022 Telephone encounter Clarice Petersen MD Work Phone: [facility] [place] Comment on above: Orders Start: 03-13-2022 End: 03-13-2022 Subsequent hospital visit by physician Screen Mammo [facility] Mammogram Comment on above: Canceled (Pt cx: Res cheduled) Start: 03-12-2022 End: 03-12-2022 Patient encounter procedure Clarice Petersen MD Work Phone: [facility] [place] Comment on above: Type 2 diabetes riccardo itus with diabetic neuropathy, without long-term current use of insulin (HCC) (Primary Dx); Mixed hyperlipidemia; Pulmonary HTN (HCC); Hyperkalemia; Screening breast examination Start: 03-06-2022 Refill Clarice Petersen MD Work Phone: [facility] [place] Comment on above: Refill Request Start: 02-28-2022 End: 02-28-2022 ambulatory Respiratory Therapist [facility] Work Phone: Pulmonary Medicine Comment on above: Spirometry Start: 02-28-2022 End: 02-28-2022 Patient encounter procedure Respiratory Therapist [facility] Work Phone: [facility] Comment on above: Mild persistent [...] End: 02-06-2022 Subsequent hospital visit by physician [facility] Work Phone: Radiology Comment on above: Renal cyst [N28.1] Start: 02-05-2022 Refill Clarice Petersen MD Work Phone: [facility] [place] Comment on above: Refill Request Start: 02-04-2022 Telephone encounter Clarice Petersen MD Work Phone: [facility] [place] Comment on above: Results Erroneous encounter- disregard Start: 01-24-2022 End: 01-24-2022 Subsequent hospital visit by physician Kia [facility] Kevin Work Phone: Radiology Comment on above: Rib pain [R07.81] Start: 09-19-2021 End: 09-19-2021 Subsequent hospital visit by physician Kia [facility] Work Phone: Radiology Comment on above: Hip injury, initial encounter [S79.919A] Start: 12-24-2017 End: 12-24-2017 Ambulatory [facility] Procedures Date Procedure Procedure Detail Performing Clinician Start: 07-28-2025 Radiologic exam ches t [address] Dennis Chow MD Work Phone: Start: 07-20-2025 Gram stain microscopy Curt Chow MD Work Phone: Start: 07-14-2025 Urine microalbumin/creatinine ratio measurement Rachel Madden ROAD GRADER-C Work Phone: Start: 07-14-2025 Vitamin D, 25-hydrox y measurement Rachel Madden ROAD GRADER-C Work Phone: Comment on above: Vitamin D StatusDefi ciency: <20 ng/mL (50nmol/L)Insufficiency: 20-30 ng/mL (50-75 nmol/L)Sufficiency: 30-100 ng/mL (75-250 nmol/L)Toxicity: >100 ng/mL (>250 nmol/L) Start: 07-08-2025 Screening mammography Lorraine noonan Jose Alejandro RO[address] GRADER-C Work Phone: Start: 07-05-2025 Plain X-ray of shoulder Rachel Madden ROAD GRADER-C Work Phone: Start: 06-21-2025 Gram stain microscopy N o Primary Care Physician Start: 06-21-2025 Source specific culture No Primary Care Physician Start: 06-10-2025 Cardiovascular stres s test using pharmacologic stress agent No Primary Care Physician Start: 03-31-2025 Dual energy X-ray absorptiometry Alexus Machuca DO Work Phone: Start: 03-22-2025 Complete ultrasound of kidneys and bladder Alexus Machuca DO Work Phone: Start: 03-22-2025 US scan of thyroid Cristóbal Machuca DO Work Phone: Start: 03-17-2025 CT of chest without contrast Alexus Machuca DO Work Phone: Start: 01-05-2025 Lactoferrin measurement Alexus [facility] [employer] Work Phone: Start: 12-28-2024 Albumin/Globulin ratio Alexus [facility] Work Phone: Start: 12-28-2024 Alternaria alternata RAST Alexus [employer] Work Phone: Start: 12-28-2024 Antibody measurement Arash Machuca Int[facility] Work Phone: Comment on above: The atypical pANCA p attern has been observed in asignificant percentage of patients with ulcerative colitis,primary sclerosing cholangitis and autoimmune hepatitis. Start: 12-28-2024 Antibody to centrome re measurement Alexus [employer] Work Phone: Comment on above: Previous reported re sult: TNP AIEdited by: INFCE on 01/03/25:0907 AMENDED REPORT 01/03/25 0907 ANTI-CENT B previously reported as: Test not performed Start: 12-28-2024 Antibody to extracta ble nuclear antigen measurement Alexus [employer] Work Phone: Comment on above: Previous reported re sult: TNP AIEdited by: INFCE on 01/03/25:0907 AMENDED REPORT 01/03/25 0907 LEMUS Ab previously reported as: Test not performed Start: 12-28-2024 Antibody to SOHEILA-1 measurement [employer] [employer] Work Phone: Comment on above: Previous reported re sult: TNP AIEdited by: INFCE on 01/03/25:0907 AMENDED REPORT 01/03/25 0907 ANTI-SOHEILA previously reported as: Test not performed Start: 12-28-2024 Antibody to lupus La protein measurement [facility]us [employer] Work Phone: Comment on above: Previous reported re sult: TNP AIEdited by: INFCE on 01/03/25:0907 AMENDED REPORT 01/03/25 0907 Anti-SS-B previously reported as: Test not performed Start: 12-28-2024 Antibody to SS-A measurement Alexus Sven DO Work Phone: Comment on above: Previous reported re sult: TNP AIEdited by: INFCE on 01/03/25:0907 AMENDED REPORT 01/03/25906 Anti-SS-A previously reported as: Test not performed Start: 12-28-2024 Autoantibody measurement Alexus Bloomer DO Work Phone: Comment on above: Previous reported re sult: TNP AIEdited by: INFCE on 01/03/25:0907 AMENDED REPORT 01/03/25906 ANTICHROMATIN previously reported as: Test not performed Start: 12-28-2024 Chocolate RAST Alexus Monroynger DO Work Phone: Start: 12-28-2024 Common ragweed RAST Marybeth Monroynger DO Work Phone: Start: 12-28-2024 Endomysial antibody IgA level Alexus Monroynger DO Work Phone: Start: 12-28-2024 Food RAST Alexus Monroy nger DO Work Phone: Start: 12-28-2024 House dust mite (Df) RAST Alexus Bloomer DO Work Phone: Start: 12-28-2024 Immunoglobulin M measurement Alexus Monroynger DO Work Phone: Start: 12-28-2024 Intrinsic factor ant ibody measurement Alexus Bloomer DO Work Phone: Comment on above: Performed at: - [address] [id number] Director: Cleveland Poon PhD, Phone: [phone] at: - [facility] [id number] Director: Jerrell Napoles MD, Phone: [phone] Start: 12-28-2024 Measurement of C-ayden ctive protein using high sensitivity technique Alexus Monroynger DO Work Phone: Comment on above: C-Reactive [...] Work Phone: Comment on above: Performed at: [address] [id number] Director: Cleveland Poon PhD, Phone: [phone] at: [address] [id number] Director: Jerrell Napoles MD, Phone: [phone] Start: 12-28-2024 Plantain (Cymro) VALENCIAT Alexus Machuca DO Work Phone: Start: 12-28-2024 DRILLING FLUIDS SPECIALIST antibody measurement Alexus Machuca DO Work Phone: Comment on above: Previous reported re sult: TNP AIEdited by: BIA on 01/03/25:0907 AMENDED REPORT 01/03/25 0907 DRILLING FLUIDS SPECIALIST Ab previously reported as: Test not performed [...] crispin ow biopsies & aspirations Orville Tavares ARCHITECTURAL REPRESENTATIVE.FLATWORK SUPERVISOR Work Phone: Start: 07-29-2024 Mri pelvis w/o [...] brain stem w/o w/contrast material Sahra Moreno ARCHITECTURAL REPRESENTATIVE.FLATWORK SUPERVISOR Work Phone: Start: 09-10-2023 Radex spine cervical 4 or 5 views Sahra Moreno ARCHITECTURAL REPRESENTATIVE.FLATWORK SUPERVISOR Work Phone: Start: 07-28-2023 Myocardial spect mul tiple studies M Wali Mirza PA-C Work Phone: Start: 04-28-2023 Arthrocentesis aspir &/inj major jt/bursa w/o us Carlos Dickson MD Work Phone: Start: 03-27-2023 Radex shoulder compl ete minimum 2 views Carolina Wali Mirza PA-C Work Phone: Start: 03-25-2023 [...] retroperitoneal r eal time w/image complete Clarice Petesren MD Work Phone: Start: 01-24-2022 Radiologic exam [...] MISHRA MD Cervical arthrodesis by anterior technique CASEAR MISHRA MD Comment on above: 2003 H/O: surgery Hx of squamous c ell carcinoma excision Plan of Treatment Date Care Activity Detail Author Start: 02-05-2033 Urine microalbumin profile [facility] Start: 02-17-2026 End: 02-17-2026 ambulatory 02/17/2026 2:50 PM EDT Visit (SP) Office Hematology/Oncology [address] [place] [address] Cristhian Smith DO [address] [place] [id number] 1YR OV/LABS 4/3* Hematology/Oncolog y Comment on above: 1YR OV/LABS 4/3* Start: 02-10-2026 End: 02-10-2026 ambulatory 02/10/2026 11:30 AM EDT Results Only [facility] [address] [place] [address] CBC/CMP/Myeloma labs (no urine) Kevin [facility] Comment on above: CBC/CMP/Myeloma labs (no urine) Start: 09-10-2025 BP Controlled (<130/80) BP Controlled (<130/80) [facility] Start: 08-17-2025 BP Controlled (<130/80) BP Controlled (<130/80) [facility] Start: 2025 BP Controlled (<130/80) BP Controlled (<130/80) [facility] Start: 07-20-2025 End: 07-20-2025 Source specific culture [facility] Start: 07-11-2025 Influenza vaccination Influenza Vaccine (Season Ended) [facility] Start: 07-08-2025 MG Breast - bilateral Screening [facility] Start: 07-05-2025 Plain X-ray of shoulder Shoulder min 2 Views [facility] Start: 07-05-2025 XR Shoulder GE 2 Views [facility] Start: 07-02-2025 Screening for malignant neoplasm of breast Mammogram Screening [facility] Start: 06-27-2025 Tobacco use cessation education [facility] Start: 06-24-2025 BP Controlled (<130/80) BP Controlled (<130/80) [facility] Start: 06-10-2025 US scan of bladder [facility] Start: 06-02-2025 BP Controlled (<130/80) BP Controlled (<130/80) [facility] Start: 05-16-2025 End: 05-16-2025 Evaluation of diagnostic study results [facility] Start: 04-21-2025 BP Controlled (<130/80) BP Controlled (<130/80) [facility] Start: 04-06-2025 Patient referral [facility] Work Phone: Start: 03-31-2025 DXA Bone [Mass/Area] Bone density [facility] Start: 03-24-2025 Measurement of respiratory function [facility] Start: 03-16-2025 Patient referral [facility] Work Phone: Start: 03-09-2025 Colonoscopy w/biopsy single/multiple COLONOSCOPY AND BIOPSY [facility] Start: 03-09-2025 Egd insert guide wire dilator passage esophagus EGD GUIDE WIRE INSERTION [facility] Start: 03-09-2025 Egd transoral biopsy single/multiple EGD BIOPSY SINGLE/MULTIPLE [facility] Start: 03-09-2025 Patient discharge [facility] Start: 02-22-2025 BP Controlled (<130/80) BP Controlled (<130/80) [facility] Start: 02-18-2025 End: 02-18-2025 ambulatory 02/18/2025 2:30 PM EDT Visit (SP) Office Hematology/Oncology [address], [place] [phone] Cristhian Smith, [address] [place], [place] [phone] 6 MO OV/LABS 4/3* Hematology/Oncolog y Comment on above: 6 MO OV/LABS 4/3* Start: 02-10-2025 End: 02-10-2025 ambulatory 02/10/2025 11:00 AM EDT Results Only [facility] [address], [place] [phone] CBC/CMP/Myeloma labs/24urine with Mspike* [facility] Comment on above: CBC/CMP/Myeloma labs/24urine with Mspike * Start: 01-11-2025 End: 01-11-2025 Patient encounter procedure [facility] Comment on above: est care - DO NOT CANCEL - ALREADY LUIS EDULED 4 TIMES - UNLESS DR PETERSEN TAKES PATIENT BACK est care - DO NOT CA NCEL - ALREADY RESCHEDULED 4 TIMES - UNLESS DR PETERSEN TAKES PATIENT BACK/ Please update PCP status at appt. Start: 01-05-2025 Giardia Antigen (PORTIA) Giardia Antigen (PORTIA) [facility] Start: 01-05-2025 Ova and Parasites Ova and Parasites [facility] Start: 01-05-2025 [facility] Start: 12-17-2024 End: 12-17-2024 Patient encounter procedure 12/17/2024 11:20 AM EST Office Visit Family [facility] [address] [place] [address] PodSahra frost APRN.FLATWORK SUPERVISOR [address] [place] [address] est care physical r/s from 08/02/24 [facility] [place] Comment on above: est care physical r/s from 08/02/24 Start: 11-10-2024 Advance Directive Discussion Advance Directive Discussion [facility] Start: 10-14-2024 BP Controlled (<130/80) BP Controlled (<130/80) [facility] Start: 09-29-2024 3 comp foot exam completed Diabetic Foot Exam [facility] Start: 09-29-2024 Annual PCP Team Chronic Disease Visit Annual PCP Team Chronic Disease Visit [facility] Start: 09-29-2024 Diabetic foot examination Diabetic Foot Exam [facility] Start: 09-29-2024 Hepatitis B surface antibody level LDL Cholesterol [facility] Start: 09-10-2024 Annual PCP Team Chronic Disease Visit Annual PCP Team Chronic Disease Visit [facility] Start: 09-01-2024 End: 09-01-2024 Patient encounter procedure 09/01/2024 10:40 AM EDT Office Visit [facility] [place] [address] [place] [address] Hemanth Carranza MD [address] [place] [address] est care [facility] [place] Comment on above: est care Start: 08-17-2024 End: 08-17-2024 ambulatory 08/17/2024 4:00 PM EDT Visit (SP) Office Hematology/Oncology [address] [place] [address] Cristhian Smith DO [address] [place] [address] OV/MRI 07/29/BMBX 08/05* Hematology/Oncolog y Comment on above: OV/MRI 07/29/BMBX 08/05* Start: 2024 End: 2024 ambulatory [facility] Comment on above: CBC/Troponin/BNP* CBC/TROPONIN/BNP/BMB X/PBSX2* Start: 08-02-2024 End: 08-02-2024 Patient encounter procedure 08/02/2024 12:20 PM EDT Office Visit [facility] [address] [facility] [place] [address] PodlogarSahra APRN.FLATWORK SUPERVISOR [address] [place] [address] est care [facility] Comment on above: est care Start: 07-29-2024 End: 07-29-2024 Patient encounter procedure Radiology Comment on above: Monoclonal gammopathy [D47.2] Start: 07-11-2024 [facility]enza [facility] Start: 06-24-2024 End: 06-24-2024 ambulatory 06/24/2024 9:50 AM EDT Visit (SP) Office Hematology/Oncology [address] [place] [address] Cristhian Smith, [address] [place] [address] OV/LABS 06/02* Hematology/Oncolog y Comment on above: OV/LABS 06/02* Start: 06-22-2024 End: 06-22-2024 ambulatory 06/22/2024 9:30 AM EDT Visit (SP) Office Hematology/Oncology [address] [place] [address] Cristhian Smith DO [address] [place] [address] OV/LABS 06/02* Hematology/Oncolog y Comment on above: OV/LABS 06/02* Start: 06-02-2024 End: 09-01-2024 [id number] [Mass/volume] in Serum or Plasma [facility] Comment on above: Expected: 06/02/2024, Expires: Start: 06-02-2024 End: 09-01-2024 Ferritin [Mass/volume] in Serum or Plasma [facility] Comment on above: Expected: 06/02/2024, Expires: Start: 06-02-2024 End: 09-01-2024 Iron and Iron binding capacity panel - Serum or Plasma [facility] Comment on above: Expected: 06/02/2024, Expires: Start: 06-02-2024 End: 09-01-2024 MONOCLONAL PROTEIN, SERUM (BLOOD) [facility] Work Phone: Comment on above: Expected: 06/02/2024, Expires: Start: 06-02-2024 End: 09-01-2024 PROTEIN ELECTROPHORESIS SERUM W/INTERP [facility] Comment on above: Expected: 06/02/2024, Expires: Start: 06-02-2024 End: 09-01-2024 SERUM VISCOSITY [facility] Comment on above: Expected: 06/02/2024, Expires: Start: 05-01-2024 ANNUAL PCP TEAM CHRONIC DISEASE VISIT ANNUAL PCP TEAM CHRONIC DISEASE VISIT [facility] Start: 05-01-2024 BP CONTROLLED (<130/80) BP CONTROLLED (<130/80) [facility] Start: 05-01-2024 Hepatitis B surface antibody level LDL CHOLESTEROL [facility] Start: 04-21-2024 End: 04-21-2024 Patient encounter procedure 04/21/2024 2:00 PM EDT Office Visit General Surgery [address] [place], [place] [phone] Pelon Winchester MD [address] [place], [place] [phone] Follow up General Surgery Comment on above: Follow up Start: 04-02-2024 Glaucoma screening Dilated Retinal Exam [facility] Start: 04-02-2024 Hepatitis C antibody, confirmatory test DILATED RETINAL EXAM [facility] Start: 03-29-2024 Hemoglobin A1c measurement HbA1C [facility] Start: 03-29-2024 Hemoglobin A1c/Hemoglobin.total in Blood HbA1C [facility] Start: 03-28-2024 BP CONTROLLED (<130/80) BP CONTROLLED (<130/80) [facility] Start: 03-27-2024 3 comp foot exam completed DIABETIC FOOT EXAM [facility] Start: 03-27-2024 ANNUAL PCP TEAM CHRONIC DISEASE VISIT ANNUAL PCP TEAM CHRONIC DISEASE VISIT [facility] Start: 03-27-2024 HIV SCREENING HIV SCREENING [facility] Comment on above: Postponed from 1975 (Declined at t his time) Start: 03-27-2024 Zoledronic acid therapy ALPHA-1 ANTITRYPSIN DEFICIENCY SCREENING [facility] Comment on above: Postponed from 1987 (Declined at t his time) Start: 03-25-2024 Mammography [facility] Start: 03-25-2024 Screening for malignant neoplasm of breast Mammogram Screening [facility] Start: 02-18-2024 ANNUAL PCP TEAM CHRONIC DISEASE VISIT ANNUAL PCP TEAM CHRONIC DISEASE VISIT [facility] Start: 02-18-2024 BP CONTROLLED (<130/80) BP CONTROLLED (<130/80) [facility] Start: 01-24-2024 ANNUAL PCP TEAM CHRONIC DISEASE VISIT ANNUAL PCP TEAM CHRONIC DISEASE VISIT [facility] Start: 12-31-2023 End: 03-31-2024 Lipid 1996 panel - Serum or Plasma LIPID PANEL BASIC Lab Routine Mixed hyperlipidemia Hypertriglyceridemia Expected: 12/31/2023, Expires: 03/31/2024 [facility] Work Phone: Comment on above: Expected: 12/31/2023, Expires: Start: 12-26-2023 ANNUAL PCP TEAM CHRONIC DISEASE VISIT ANNUAL PCP TEAM CHRONIC DISEASE VISIT [facility] Start: 12-26-2023 BP CONTROLLED (<130/80) BP CONTROLLED (<130/80) [facility] Start: 12-26-2023 Hepatitis B screening URINE ALBUMIN:CREATININE RATIO [facility] Start: 12-26-2023 Hepatitis B surface antibody level LDL CHOLESTEROL [facility] Start: 11-10-2023 Advance Directive Discussion Advance Directive Discussion [facility] Start: 10-31-2023 Hemoglobin A1c/Hemoglobin.total in Blood HBA1C [facility] Start: 09-29-2023 End: 12-29-2023 Hemoglobin A1c in Blood [facility] Work Phone: Comment on above: Expected: 09/29/2023, Expires: 4 Start: 09-29-2023 End: 12-29-2023 Lipid 1996 panel - Serum or Plasma [facility] Work Phone: Comment on above: Expected: 09/29/2023, Expires: 4 Start: 09-19-2023 Shingrix Vaccine (2 of 2) Shingrix Vaccine (2 of 2) [facility] Start: 08-08-2023 ANNUAL PCP TEAM CHRONIC DISEASE VISIT ANNUAL PCP TEAM CHRONIC DISEASE VISIT [facility] Start: 08-08-2023 BP CONTROLLED (<130/80) BP CONTROLLED (<130/80) [facility] Start: 08-08-2023 Pneumococcal Vaccine: 50+ (2 of 2 - PCV) Pneumococcal Vaccine: 50+ (2 of 2 - PCV) [facility] Start: 08-08-2023 Pneumococcal Vaccine: 65+ (2 - PCV) Pneumococcal Vaccine: 65+ (2 - PCV) [facility] Start: 08-08-2023 Pneumococcal Vaccine: 65+ (2 of 2 - PCV) Pneumococcal Vaccine: 65+ (2 of 2 - PCV) [facility] Start: 08-08-2023 PNEUMOCOCCAL: 65+ (2 - PCV) PNEUMOCOCCAL: 65+ (2 - PCV) [facility] Start: 08-08-2023 SHINGRIX VACCINE (1 of 2) SHINGRIX VACCINE (1 of 2) [facility] Comment on above: Postponed from 2007 (Insurance Cov erage) Start: 07-11-2023 Influenza vaccination [facility] Start: 06-25-2023 Hemoglobin A1c/Hemoglobin.total in Blood HBA1C [facility] Start: 06-12-2023 ANNUAL PCP TEAM CHRONIC DISEASE VISIT ANNUAL PCP TEAM CHRONIC DISEASE VISIT [facility] Start: 05-24-2023 ANNUAL PCP TEAM CHRONIC DISEASE VISIT ANNUAL PCP TEAM CHRONIC DISEASE VISIT [facility] Start: 04-09-2023 Hepatitis C antibody, confirmatory test DILATED RETINAL EXAM [facility] Comment on above: Postponed from 02/12/2023 (Currently [place] eduled) Start: 03-13-2023 Mammography MAMMOGRAM [facility] Start: 03-12-2023 ANNUAL PCP TEAM CHRONIC DISEASE VISIT ANNUAL PCP TEAM CHRONIC DISEASE VISIT [facility] Start: 02-12-2023 Hepatitis C antibody, confirmatory test DILATED RETINAL EXAM [facility] Start: 01-27-2023 End: 03-29-2023 Calcium.ionized [Moles/volume] in Blood CALCIUM IONIZED BLOOD Lab Routine Hypercalcemia Elevated lipase Expected: 01/27/2023, Expires: 03/29/2023 [facility] Work Phone: Comment on above: Expected: 01/27/2023, Expires: 3 Start: 01-27-2023 End: 03-29-2023 Lipase [Enzymatic activity/volume] in Serum or Plasma LIPASE BLD Lab Routine Hypercalcemia Elevated lipase Expected: 01/27/2023, Expires: 03/29/2023 [facility] Work Phone: Comment on above: Expected: 01/27/2023, Expires: 3 Start: 01-25-2023 End: 03-27-2023 CBC W Auto Differential panel - Blood CBC + DIFF Lab Routine Elevated lymphocytes Expected: 01/25/2023, Expires: 03/27/2023 [facility] Work Phone: Comment on above: Expected: 01/25/2023, Expires: 3 Start: 01-25-2023 End: 03-27-2023 Comprehensive metabolic 2000 panel - Serum or Plasma COMP METABOLIC PANEL Lab Routine Elevated lipase Expected: 01/25/2023, Expires: 03/27/2023 [facility] Work Phone: Comment on above: Expected: 01/25/2023, Expires: 3 Start: 01-25-2023 End: 03-27-2023 Lipase [Enzymatic activity/volume] in Serum or Plasma LIPASE BLD Lab Routine Elevated lipase Expected: 01/25/2023, Expires: 03/27/2023 [facility] Work Phone: Comment on above: Expected: 01/25/2023, Expires: 3 Start: 01-25-2023 End: 03-27-2023 PROTEIN ELECTROPHORESIS SERUM W/INTERP PROTEIN ELECTROPHORESIS SERUM W/INTERP Lab Routine Elevated blood protein Elevated lymphocytes Expected: 01/25/2023, Expires: 03/27/2023 [facility] Work Phone: Comment on above: Expected: 01/25/2023, Expires: 3 Start: 01-24-2023 3 comp foot exam completed DIABETIC FOOT EXAM [facility] Start: 01-24-2023 ANNUAL PCP TEAM CHRONIC DISEASE VISIT ANNUAL PCP TEAM CHRONIC DISEASE VISIT [facility] Start: 01-24-2023 Hepatitis B screening URINE ALBUMIN:CREATININE RATIO [facility] Start: 01-24-2023 Hepatitis B surface antibody level LDL CHOLESTEROL [facility] Start: 01-23-2023 End: 03-25-2023 CBC W Auto Differential panel - Blood CBC + DIFF Lab Routine Epigastric pain Expected: 01/23/2023, Expires: 03/25/2023 [facility] Work Phone: Comment on above: Expected: 01/23/2023, Expires: 3 Start: 01-23-2023 End: 03-25-2023 Comprehensive metabolic 2000 panel - Serum or Plasma COMP METABOLIC PANEL Lab Routine Epigastric pain Expected: 01/23/2023, Expires: 03/25/2023 [facility] Work Phone: Comment on above: Expected: 01/23/2023, Expires: 3 Start: 01-23-2023 End: 03-25-2023 Lipase [Enzymatic activity/volume] in Serum or Plasma LIPASE BLD Lab Routine Epigastric pain Expected: 01/23/2023, Expires: 03/25/2023 [facility] Work Phone: Comment on above: Expected: 01/23/2023, Expires: 3 Start: 01-12-2023 [facility] Start: 12-26-2022 End: 02-25-2023 Magnesium [Mass/volume] in Serum or Plasma MAGNESIUM BLD Lab Routine Gastroesophageal reflux disease without esophagitis Chronic antral gastritis Dysphagia, unspecified type Expected: 12/26/2022, Expires: 02/25/2023 [facility] Work Phone: Comment on above: Expected: 12/26/2022, Expires: Start: 12-24-2022 Colonoscopy COLONOSCOPY [facility] Start: 12-24-2022 COLORECTAL CANCER SCREENING COLORECTAL CANCER SCREENING [facility] Start: 12-24-2022 Screening for malignant neoplasm of colon [facility] Start: 12-13-2022 End: 02-12-2023 ALBUMIN/CREAT RATIO RND UR ALBUMIN/CREAT RATIO RND UR Lab Routine Type 2 diabetes mellitus with diabetic neuropathy, without long-term current use of insulin (HCC) Expected: 12/13/2022, Expires: 02/12/2023 [facility] Work Phone: Comment on above: Expected: 12/13/2022, Expires: Start: 12-13-2022 End: 06-12-2023 CBC W Auto Differential panel - Blood CBC + DIFF Lab Routine Type 2 diabetes mellitus with diabetic neuropathy, without long-term current use of insulin (HCC) Expected: 12/13/2022, Expires: 06/12/2023 [facility] Work Phone: Comment on above: Expected: 12/13/2022, Expires: Start: 12-13-2022 End: 06-12-2023 Comprehensive metabolic 2000 panel - Serum or Plasma COMP METABOLIC PANEL Lab Routine Type 2 diabetes mellitus with diabetic neuropathy, without long-term current use of insulin (HCC) Expected: 12/13/2022, Expires: 06/12/2023 [facility] Work Phone: Comment on above: Expected: 12/13/2022, Expires: Start: 12-13-2022 End: 02-12-2023 Hemoglobin A1c in Blood HGB A1C Lab Routine Type 2 diabetes mellitus with diabetic neuropathy, without long-term current use of insulin (HCC) Expected: 12/13/2022, Expires: 02/12/2023 [facility] Work Phone: Comment on above: Expected: 12/13/2022, Expires: 3 Start: 12-13-2022 End: 02-12-2023 HIV 1+2 Ab [Presence] in Serum or Plasma by Immunoassay HIV 1 2 COMBO(AG/AB),WITH REFLEX TO DIFFERENTIATION Lab Routine Screening for HIV (human immunodeficiency virus) Expected: 12/13/2022, Expires: 02/12/2023 [facility] Work Phone: Comment on above: Expected: 12/13/2022, Expires: 3 Start: 12-13-2022 End: 06-12-2023 Lipid 1996 panel - Serum or Plasma LIPID PANEL BASIC Lab Routine Type 2 diabetes mellitus with diabetic neuropathy, without long-term current use of insulin ([facility]) Expected: 12/13/2022, Expires: 06/12/2023 [facility] Work Phone: Comment on above: Expected: 12/13/2022, Expires: Start: 12-11-2022 Hemoglobin A1c/Hemoglobin.total in Blood HBA1C [facility] Start: 11-10-2022 ADVANCE DIRECTIVE DISCUSSION ADVANCE DIRECTIVE DISCUSSION [facility] Start: 08-14-2022 Urine microalbumin profile DTAP,TDAP,TD (2 - Td or Tdap) [facility] Start: 2022 BONE DENSITY BONE DENSITY [facility] Start: 07-11-2022 Influenza vaccination INFLUENZA (#1) [facility] Start: 05-12-2022 End: 07-12-2022 Hemoglobin A1c/Hemoglobin.total in Blood HGB A1C Lab Routine Type 2 diabetes mellitus with diabetic neuropathy, without long-term current use of insulin (HCC) Expected: 05/12/2022, Expires: 07/12/2022 [facility] Work Phone: Comment on above: Expected: 05/12/2022, Expires: Start: 04-26-2022 Hemoglobin A1c/Hemoglobin.total in Blood HBA1C [facility] Start: 03-29-2022 Mammography MAMMOGRAM [facility] Start: 02-18-2022 End: 04-20-2022 POTASSIUM BLD POTASSIUM BLD Lab Routine Hyperkalemia Expected: 02/18/2022, Expires: 04/20/2022 [facility] Work Phone: Comment on above: Expected: 02/18/2022, Expires: 2 Start: 10-02-2021 Hepatitis C antibody, confirmatory test DILATED RETINAL EXAM [facility] Start: 09-20-2020 Influenza vaccination Lung Cancer Screening [facility] Start: 09-20-2020 Screening for malignant neoplasm of lung Lung Cancer Screening [facility] Start: 2017 Hepatitis B Vaccine (1 of 3 - Risk 3-dose series) Hepatitis B Vaccine (1 of 3 - Risk 3-dose series) [facility] Start: 2017 RSV Vaccine (1 - 1-dose 60+ series) RSV Vaccine (1 - 1-dose 60+ series) [facility] Start: 2017 RSV Vaccine (1 - Risk 60-74 years 1-dose series) RSV Vaccine (1 - Risk 60-74 years 1-dose series) [facility] Start: 07-21-2016 FECAL OCCULT BLOOD FECAL OCCULT BLOOD [facility] Start: 07-21-2016 Screening for malignant neoplasm of colon Fecal Occult Blood [facility] Start: 09-16-2013 PNEUMOCOCCAL (2 - PCV) PNEUMOCOCCAL (2 - PCV) [facility] Start: 2007 SHINGRIX VACCINE (1 of 2) SHINGRIX VACCINE (1 of 2) [facility] Start: 2002 COLOGUARD (FIT-DNA) COLOGUARD (FIT-DNA) [facility] Start: [address] COLONOGRAPHY [facility] Start: 2002 Screening for malignant neoplasm of colon [facility] Start: 2002 SIGMOIDOSCOPY SIGMOIDOSCOPY [facility] Start: 1987 Zoledronic acid therapy ALPHA-1 ANTITRYPSIN DEFICIENCY SCREENING [facility] Start: 1976 SHINGRIX VACCINE (1 of 2) SHINGRIX VACCINE (1 of 2) [facility] Start: 1975 Anxiety Screening Anxiety Screening [facility] Start: 1975 BP Controlled (<130/80) BP Controlled (<130/80) [facility] Start: 1975 HIV SCREENING HIV SCREENING [facility] Start: 1962 COVID-19 VACCINE (#1) COVID-19 VACCINE (#1) [facility] Start: 1962 COVID-19 VACCINE (1) COVID-19 VACCINE (1) [facility] Start: 02-02-1958 COVID-19 VACCINE (#1) COVID-19 VACCINE (#1) [facility] BONE MARROW ANALYSIS BONE MARROW ANALYSIS Lab Routine Monoclonal gammopathy 2024 1:07 PM EDT [facility] Work Phone: BONE MARROW CHROMOSO ME ANAL BONE MARROW CHROMOSOME ANAL Lab Routine Monoclonal gammopathy 2024 1:07 PM EDT [facility] Cardiac event recording [facility] Cobalamin (Vitamin B 12) [Mass/volume] in Serum or Plasma [facility] End: 10-09-2024 CT BRAIN WO IVCON CT BRAIN WO IVCON Radiology STAT Syncope and collapse 1 Occurrences starting 09/10/2023 until 10/09/2024 [facility] Work Phone: Comment on above: 1 Occurrences starting 09/10/2023 until 10/09/2024 CT Chest [facility] End: 11-12-2024 CT LUNG SCREEN WO IVCON CT LUNG SCREEN WO IVCON Radiology Routine Encounter for screening for lung cancer Tobacco use current 1 Occurrences starting 10/14/2023 until 11/12/2024 [facility] Work Phone: Comment on above: 1 Occurrences starting 10/14/2023 until 11/12/2024 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 CYTOLOGY NON-GY N Lab Routine Multinodular goiter (nontoxic) Ordered: 04/12/2024 [facility] Work Phone: Comment on above: Ordered: 04/12/2024 DBT Breast - bilater al screening CARLOS EDUARDO SCREENING W MIGUEL Radiology Routine Encounter for screening mammogram for breast cancer 07/02/2024 1:09 PM EDT [facility] Work Phone: End: 07-30-2025 DBT Breast - bilateral screening CARLOS EDUARDO SCREENING W MIGUEL Radiology Routine Encounter for screening mammogram for breast cancer 1 Occurrences starting 06/30/2024 until 07/30/2025 [facility] Work Phone: Comment on above: 1 Occurrences starting 06/30/2024 until 07/30/2025 DNA EXTRACTION BONE MARROW (BUFFY COAT) DNA EXTRACTION BONE MARROW (BUFFY COAT) Lab Routine Monoclonal gammopathy 2024 1:07 PM EDT [facility] DXA Bone [Mass/Area] Bone density [facility] End: 09-07-2023 Dxa bone density study 1/> sites axial skel DXA-AXIAL SKELETON Radiology Routine Encounter for screening for osteoporosis 1 Occurrences starting 08/08/2022 until 09/07/2023 [facility] Work Phone: Comment on above: 1 Occurrences starting 08/08/2022 until 09/07/2023 End: 09-10-2024 ECG COMPLETE ECG COMPLETE ECG Routine Syncope and collapse 1 Occurrences starting 09/10/2023 until 09/10/2024 [facility] Work Phone: Comment on above: 1 Occurrences starting 09/10/2023 until 09/10/2024 FISH FOR PLASMA CELL MYELOMA FISH FOR PLASMA CELL MYELOMA Lab Routine Monoclonal gammopathy 2024 1:07 PM EDT [facility] FLOW CYTOMETRY FOR LEUKEMIA/LYMPHOMA (FCLL) FLOW CYTOMETRY FOR LEUKEMIA/LYMPHOMA (FCLL) Lab Routine Monoclonal gammopathy 2024 1:07 PM EDT [facility] FLOW CYTOMETRY FOR LEUKEMIA/LYMPHOMA (FCLL) PERFORMABLE FLOW CYTOMETRY FOR LEUKEMIA/LYMPHOMA (FCLL) PERFORMABLE Lab Routine Monoclonal gammopathy 2024 1:07 PM EDT [facility] Giardia lamblia anti gen assay [facility] Lipid 1996 panel - Serum or Plasma [facility] MG Breast - bilatera l Screening [facility] MONOCLONAL PROT 24 U R W/INTERP MONOCLONAL PROT 24 UR W/INTERP Lab Routine Monoclonal gammopathy Ordered: 06/02/2024 [facility] Comment on above: Ordered: 06/02/2024 End: 07-28-2025 MR Cervical spine WO and W contrast IV MRI CERVICAL SPINE WO/W IVCON Radiology Routine Monoclonal gammopathy 1 Occurrences starting 06/28/2024 until 07/28/2025 [facility] Work Phone: Comment on above: 1 Occurrences starting 06/28/2024 until 07/28/2025 MR Lower Extremity Joint [facility] End: 07-28-2025 MR Lumbar spine WO and W contrast IV MRI LUMBAR SPINE WO/W IVCON Radiology Routine Monoclonal gammopathy 1 Occurrences starting 06/28/2024 until 07/28/2025 [facility] Comment on above: 1 Occurrences starting 06/28/2024 until 07/28/2025 End: 07-28-2025 MR Pelvis WO and W contrast IV MRI PELVIS ORTHO GENERAL WO/W IVCON Radiology Routine Monoclonal gammopathy 1 Occurrences starting 06/28/2024 until 07/28/2025 [facility] Comment on above: 1 Occurrences starting 06/28/2024 until 07/28/2025 End: 07-28-2025 MR Thoracic spine WO and W contrast IV MRI THORACIC SPINE WO/W IVCON Radiology Routine Monoclonal gammopathy 1 Occurrences starting 06/28/2024 until 07/28/2025 [facility] Comment on above: 1 Occurrences starting 06/28/2024 until 07/28/2025 NM CARDIAC PERF STRESS/PHARM NM CARDIAC PERF STRESS/PHARM Radiology Routine Encounter for screening for cardiovascular disorders Chest pain, unspecified type Ordered: 08/08/2022 [facility] Work Phone: Comment on above: Ordered: 08/08/2022 NM Heart Views W str ess and W radionuclide IV [facility] OUTSIDE VENDOR CARDI AC OUTPATIENT EXTENDED RHYTHM RECORDING (WITHOUT TELEMETRY) OUTSIDE VENDOR CARDIAC OUTPATIENT EXTENDED RHYTHM RECORDING (WITHOUT TELEMETRY) Holter Routine SVT (supraventricular tachycardia) (HCC) Palpitations Ordered: 08/08/2022 [facility] Work Phone: Comment on above: Ordered: 08/08/2022 Ova OR parasites identification [facility] Patient Education [facility] Work Phone: Patient referral [facility] Work Phone: PROT ELEC UR 24HR W/ M SPIKE (P) PROT ELEC UR 24HR W/M SPIKE (P) Lab Routine Monoclonal gammopathy Ordered: 06/02/2024 [facility] Comment on above: Ordered: 06/02/2024 PROT ELEC UR 24HR W/ M SPIKE AND INTERP PROT ELEC UR 24HR W/M SPIKE AND INTERP Lab Routine Monoclonal gammopathy Ordered: 06/02/2024 [facility] Comment on above: Ordered: 06/02/2024 Protein [Mass/time] in 24 hour Urine PROTEIN, 24 HOUR URINE Lab Routine Monoclonal gammopathy Ordered: 06/02/2024 [facility] Comment on above: Ordered: 06/02/2024 End: 04-11-2023 Screening mammography bi 2-view breast inc cad CARLOS EDUARDO SCREENING Radiology Routine Screening breast examination 1 Occurrences starting 03/12/2022 until 04/11/2023 [facility] Work Phone: Comment on above: 1 Occurrences starting 03/12/2022 until 04/11/2023 End: 04-12-2023 Screening mammography bi 2-view breast inc cad CARLOS EDUARDO SCREENING Radiology Routine Screening breast examination 1 Occurrences starting 03/13/2022 until 04/12/2023 [facility] Work Phone: Comment on above: 1 Occurrences starting 03/13/2022 until 04/12/2023 SPIROMETRY WITH DILA TOR IF OBSTRUCTED SPIROMETRY WITH DILATOR IF OBSTRUCTED PFT Routine Asthma, unspecified asthma severity, unspecified whether complicated, unspecified whether persistent 02/28/2022 10:19 AM EDT [facility] Work Phone: SURGICAL PATHOLOGY SURGICAL PATH OLOGY Lab Routine Gastroesophageal reflux disease without esophagitis Release Upon Ordering for 1 Occurrences starting 03/14/2022 [facility] Work Phone: Comment on above: Release Upon Ordering for 1 Occurrences starting 03/14/2022 Thyroid stimulating hormone measurement [facility] Tobacco use cessatio n education [facility] Urine microalbumin/creatinine ratio measurement [facility] End: 03-21-2024 US ABD RIGHT UPPER QUADRANT US ABD RIGHT UPPER QUADRANT Radiology Routine Elevated lipase 1 Occurrences starting 02/20/2023 until 03/21/2024 [facility] Work Phone: Comment on above: 1 Occurrences starting 02/20/2023 until 03/21/2024 US Heart [facility] US Kidney - bilatera l and Urinary bladder [facility] US scan of bladder [facility] US Thyroid gland [facility] Vitamin B12 measurement [facility] Vitamin D, 25-hydrox y measurement [facility] End: 07-24-2025 XR Bones Complete Survey Views XR BONE SURVEY ROUTINE Radiology Routine Monoclonal gammopathy 1 Occurrences starting 06/24/2024 until 07/24/2025 [facility] Work Phone: Comment on above: 1 Occurrences starting 06/24/2024 until 07/24/2025 XR Bones Complete Survey Views XR BONE SURVEY ROUTINE Radiology Routine Monoclonal gammopathy 06/24/2024 11:16 AM EDT [facility] End: 06-23-2023 XR SHOULDER GENERAL 3V OR MORE AP/TRUE AP/OTHER LEFT XR SHOULDER GENERAL 3V OR MORE AP/TRUE AP/OTHER LEFT Radiology Routine Acute pain of left shoulder 1 Occurrences starting 05/24/2022 until 06/23/2023 [facility] Work Phone: Comment on above: 1 Occurrences starting 05/24/2022 until 06/23/2023 [facility] Immunizations Immunization Date Immunization Notes Care Provider Edward walters 07-25-2023 influenza (HD-IIV4) vaccine, age 65+ yr, high dose, quadrivalent, PF (FLUZONE HIGH-DOSE) NA Hermes MANSFIELD Work Phone: [facility] 07-25-2023 zoster vaccine recombinant NA Hermes MANSFIELD Work Phone: [facility] 07-25-2023 influenza virus vacc ine, unspecified formulation Cristhian Smith DO Work Phone: [facility] 02-05-2023 tetanus toxoid, redu kecia diphtheria toxoid, and acellular pertussis vaccine, adsorbed [facility] 08-08-2022 influenza, high-dose , quadrivalent vaccine (FLUZONE HIGH DOSE QUADRIVALENT) AILYN Mirza PA-C Work Phone: [facility] 08-08-2022 pneumococcal polysaccharide vaccine, 23 valent NA Hermes MANSFIELD Work Phone: [facility] 08-08-2022 influenza virus vacc ine, unspecified formulation Nurse Wstr Work Phone: [facility] 07-17-2021 influenza, injectabl e, quadrivalent, preservative free Clarice Petersen MD Work Phone: [facility] 07-20-2020 influenza, injectabl e, quadrivalent, contains preservative Clarice Petersen MD Work Phone: [facility] Work Phone: 07-20-2020 influenza, injectabl e, quadrivalent, preservative free Clarice Petersen MD Work Phone: [facility] 08-27-2019 influenza, injectabl e, quadrivalent, preservative free Clarice Petersen MD Work Phone: [facility] 08-21-2019 influenza virus vacc ine, unspecified formulation Clarice Petersen MD Work Phone: [facility] 07-31-2018 influenza, injectabl e, quadrivalent, contains preservative Clarice Petersen MD Work Phone: [facility] 07-31-2018 influenza, injectabl e, quadrivalent, preservative free Clarice Petersen MD Work Phone: [facility] 08-24-2017 influenza, injectabl e, quadrivalent, preservative free Alexus Machuca DO Work Phone: [facility] 08-24-2017 influenza, seasonal, injectable Clarice Petersen MD Work Phone: [facility] 07-31-2016 influenza, injectabl e, quadrivalent, contains preservative Clarice Petersen MD Work Phone: [facility] 07-31-2016 influenza, injectabl e, quadrivalent, preservative free Alexus Machuca DO Work Phone: [facility] 08-10-2015 influenza, injectabl e, quadrivalent, contains preservative Clarice Petersen MD Work Phone: [facility] Work Phone: 08-10-2015 influenza, injectabl e, quadrivalent, preservative free Alexus Sven DO Work Phone: [facility] 08-01-2014 influenza, injectabl e, quadrivalent, preservative free Alexus Sven DO Work Phone: [facility] 08-01-2014 influenza, seasonal, injectable Clarice Petersen MD Work Phone: [facility] 10-27-2013 influenza virus vacc ine, unspecified formulation Clarice Petersen MD Work Phone: [facility] Work Phone: 09-16-2012 pneumococcal polysaccharide vaccine, 23 valent Clarice Petersen MD Work Phone: [facility] 08-14-2012 tetanus toxoid, redu kecia diphtheria toxoid, and acellular pertussis vaccine, adsorbed Clarice Petersen MD Work Phone: [facility] Payers Date Payer Category Payer Self-pay [id number] 2023 Medicare (Managed Care) AEBESSIE BRAUN [id number] 2023 Private Health Insurance 101 [id number] 2023 Unknown [id number] 2022 Medicaid [id number] 2022 Medicare [id number] 2017 Medicaid [facility] [id number] 2017-[facility] [phone] [address] [place] [address] Medicaid [id number] 2017 Medicaid [id number]. [id number] 2012 Medicaid [id number] 2012 Unknown SELF PAY INSURANCE [id number] 1957 Unknown [id number] .840.1.201676.3.579.2. 627 1957 Unknown [id number] 2.840.1.502625.3.579.2. 627 Unknown [id number] .840.1.927645.3.579.2. 462 Unknown [id number] .840.1.532666.3.579.2. 462 Unknown [id number] .16840.1.364615.3.579.2. 462 Unknown [id number] 2.16840.1.349316.3.579.2. 462 Unknown [id number] 2.840.1.750384.3.579.2. 462 Unknown [id number] 2.840.1.677618.3.579.2. 462 Unknown [id number] 2.16.840.1.895276.3.579.2. 462 Unknown [id number] 2.16.840.1.520164.3.579.2. 462 Unknown [id number] 2.16.840.1.674278.3.579.2. 462 Unknown [id number] 2.16.840.1.397283.3.579.2. 462 Unknown [id number] 2.16840.1.860894.3.579.2. 462 Unknown [id number] 2.16840.1.735889.3.579.2. 462 Unknown [id number] 2.840.1.033715.3.579.2. 462 Unknown [id number] 2.840.1.091441.3.579.2. 462 Unknown [id number] 2.840.1.086662.3.579.2. 462 Unknown [id number] 2.840.1.607493.3.579.2. 462 Unknown [id number] 2.840.1.962065.3.579.2. 462 Unknown [id number] 2.840.1.955396.3.579.2. 462 Unknown [id number] 2.840.1.026335.3.579.2. 462 Unknown [id number] 2.840.1.028852.3.579.2. 462 Unknown [id number] 2.840.1.180325.3.579.2. 462 Unknown [id number] 2.840.1.669578.3.579.2. 462 Unknown [id number] 2.16840.1.450263.3.579.2. 462 Unknown [id number] 2.16840.1.844873.3.579.2. 462 Unknown [id number] 2.840.1.622052.3.579.2. 462 Unknown [id number] 2.16.840.1.064984.3.579.2. 462 Unknown [id number] 2.16.840.1.546364.3.579.2. 462 Unknown [id number] 2.16.840.1.304539.3.579.2. 462 Unknown [id number] 2.16.840.1.294435.3.579.2. 462 Unknown [id number] 2.16.840.1.088805.3.579.2. 462 Unknown [id number] 2.16.840.1.030788.3.579.2. 462 Unknown [id number] 2.16.840.1.876122.3.579.2. 462 Unknown [id number] 2.16.840.1.973070.3.579.2. 462 Unknown [id number] 2.16.840.1.099269.3.579.2. 462 Unknown [id number] 2.16.840.1.943232.3.579.2. 462 Unknown [id number] 2.16.840.1.790391.3.579.2. 462 Unknown [id number] 2.16.840.1.032752.3.579.2. 462 Unknown [id number] 2.16.840.1.233539.3.579.2. 462 Unknown [id number] 2.16.840.1.323342.3.579.2. 462 Unknown [id number] 2.16.840.1.107438.3.579.2. 462 Social History Date Type Detail Facility Start: 06-20-2016 End: 06-21-2025 Tobacco smoking status NDIS Smokes tobacco daily [facility] Work Phone: Start: 1975 History of tobacco use Cigarette Smo ker [facility] Work Phone: Start: 06-20-2016 End: 03-19-2023 Cigarettes smoked current (pack per day) - Reported 0.5 [facility] Start: 06-20-2016 End: 10-14-2023 Tobacco use and exposure Smokeless tobacco non-user [facility] Work Phone: Start: 01-24-2022 End: 01-28-2022 Alcohol intake Lifetime non-drinker (finding) [facility] Start: 10-29-2021 End: 01-23-2023 History SDOH Alcohol Frequency 1 [facility] Start: 05-21-2016 Tobacco Comment As of 05/21/16 , Quit . Relapse after fall and closed head injury/concussion. [facility] Start: 1955 Sex Assigned At Female C [facility] Start: 01-20-2022 End: 01-30-2022 Exposure to SARS-CoV-2 (event) Unable to assess [facility] Work Phone: Start: 02-28-2022 End: 08-08-2022 Tobacco Comment Former one ppd smoker [facility] Start: 01-14-2022 End: 08-08-2022 Exposure to SARS-CoV-2 (event) Not sure [facility] Start: 09-18-2020 End: 02-05-2023 Tobacco smoking status NHIS Unknown if ever smoked [facility] Start: 05-15-2018 None [facility] Start: 05-15-2018 Alone [facility] Start: 06-10-2018 Cigarettes [facility] Start: 06-11-2022 History SDOH Social Connections Phone 3 [facility] Start: 06-11-2022 End: 01-23-2023 History SDOH Social Connections Membership 2 [facility] Start: 06-11-2022 End: 01-23-2023 History SDOH Social Connections Living 5 [facility] Start: 06-11-2022 End: 01-23-2023 History SDOH Physical Activity DPW 0 [facility] Start: 01-23-2023 History SDOH Financial 4 [facility] Start: 01-23-2023 End: 03-19-2023 Social connection and isolation panel [facility] Do you belong to any clubs or organizations such as quaker groups, unions, fraternal or athletic groups, or school groups? No [facility] Are you now , , , , never or living with a partner? [facility] How often to you hav e a drink containing alcohol? Never [facility] How many standard drinks containing alcohol do you have on a typical day? Patient does not drink [facility] How hard is it for y ou to pay for the very basics like food, housing, medical care, and heating Not very hard [facility] Do you feel stress - tense, restless, nervous, or anxious, or unable to sleep at night because your mind is troubled all the time - these days [OSQ] Not at all [facility] (I/We) worried wheth er (my/our) food would run out before (I/we) got money to buy more. Sometimes true [facility] The food that (I/we) bought just didn't last, and (I/we) didn't have money to get more. Never true [facility] Start: 12-21-2019 Gender identity Identifies as female gender (finding) [facility] Start: 12-21-2019 Sexual orientation Heterosexual (jorge alberto brenner) [facility] Start: 02-10-2024 Tobacco smoking status Heavy t obacco smoker (finding) [facility] Start: 04-21-2024 End: 08-17-2024 Alcohol intake Ex-drinker (finding) [facility] How hard is it for y ou to pay for the very basics like food, housing, medical care, and heating Somewhat hard [facility] Do you feel stress - tense, restless, nervous, or anxious, or unable to sleep at night because your mind is troubled all the time - these days [OSQ] Only a little [facility] (I/We) worried wheth er (my/our) food would run out before (I/we) got money to buy more. Often true [facility] Start: 09-19-2021 Alcoholic beverage intake Current drinker of alcohol (finding) [facility] Start: 11-23-2015 Alcohol Comment Rarely. [facility] Start: 01-20-2025 Sex Female (finding) [facility] NEGATED: Highlighted row Not [facility] Medical Equipment Procedure Code Equipment Code Equipment Origin al Text Equipment Identifier Dates [id number], [id number], [id number], [id number], [id number] Start: 01-10-2021 End: 10-16-2023 Comment on above: Test blood sugar(s) 3 times daily. Dx: Type 2 DM - Controlled E11.9 Insulin: No: True Matrix Test blood sugar(s) 3 times daily. Dx: Type 2 DM - Controlled E11.9 Insulin: No Test blood sugar(s) 3 times daily. Dx: Type 2 DM - Controlled E11.9 Insulin: No True matrix Blood Sugar Diagnostic (Accu-Chek Guide Test Strips) strip Start: 06-27-2025 Lancets (Accu-Ch ek Softclix Lancets) misc Start: 06-27-2025 Blood Sugar Diagnostic (Accu-Chek Guide Test Strips) strip Start: 06-27-2025 Lancets (Accu-Ch ek Softclix Lancets) misc Start: 06-27-2025 Blood Sugar Diagnostic (Accu-Chek Guide Test Strips) strip Start: 06-27-2025 Lancets (Accu-Ch ek Softclix Lancets) misc Start: 06-27-2025 Blood Sugar Diagnostic (Accu-Chek Guide Test Strips) strip Start: 06-27-2025 Lancets (Accu-Ch ek Softclix Lancets) misc Start: 06-27-2025 Blood Sugar Diagnostic (Accu-Chek Guide Test Strips) strip Start: 06-27-2025 Lancets (Accu-Ch ek Softclix Lancets) misc Start: 06-27-2025 Blood Sugar Diagnostic (Accu-Chek Guide Test Strips) strip Start: 06-27-2025 Lancets (Accu-Ch ek Softclix Lancets) misc Start: 06-27-2025 Blood Sugar Diagnostic (Accu-Chek Guide Test Strips) strip Start: 06-27-2025 Lancets (Accu-Ch ek Softclix Lancets) misc Start: 06-27-2025 Blood Sugar Diagnostic (Accu-Chek Guide Test Strips) strip Start: 06-27-2025 Lancets (Accu-Ch ek Softclix Lancets) misc Start: 06-27-2025 Blood Sugar Diagnostic (Accu-Chek Guide Test Strips) strip Start: 06-27-2025 Lancets (Accu-Ch ek Softclix Lancets) misc Start: 06-27-2025 Goals Date Patient Goal Desired Activity /State Functional Status Date Assessment Result Facility 05-25-2015 Are you deaf, or do you have serious difficulty hearing No 05/25/2015 11:21 AM EDMarylu Newton RN No [facility] 05-25-2015 Are you blind, or do you have serious difficulty seeing, even when wearing glasses Yes 05/25/2015 11:21 AM EDMarylu Newton, BERE Yes [facility] 05-25-2015 Do you have serious difficulty walking or climbing stairs Yes 05/25/2015 11:21 AM EDT Marylu Lorenz RN Yes [facility] 05-25-2015 Do you have difficul ty dressing or bathing No 05/25/2015 11:21 AM Marylu De La Vega RN No [facility] 05-25-2015 Because of a physica l, mental, or emotional condition, do you have difficulty doing errands alone such as visiting a physician's office or shopping No 05/25/2015 11:21 AM Marylu De La Vega RN No [facility] Mental Status Date Assessment Result Facility 03-09-2025 Cognitive function Voice/Name [facility] Work Phone: 01-12-2023 Cognitive function Voice/Name [facility] Work Phone: 05-25-2015 Because of a physica l, mental, or emotional condition, do you have serious difficulty concentrating, remembering, or making decisions Yes 05/25/2015 11:21 AM EDMarylu Newton, BERE Yes [facility] Clinical Notes 04-20-2019 to 07-30-2025 Note Date & Type Note Facility 07-30-2025 Radiology Diagnostic study note [facility] Imaging Services [address] [place] [address] Chest PA and Lateral MR#: [id number] Acct: [id number] Name: ЮЛИЯ PRASAD Rep #: [id number] 1955 [id number] From: Yaya Carney MD PCP: Dr. Dennis Chow MD Status: REG CLI Study:Chest PA and Lateral Date of Exam: 07/28/25 Exam# [id number] Ordering Dr: Evelia Kimble PROCEDURE: CHEST PA AND LATERAL 07/28/2025 REASON FOR EXAM: SORE THROAT, SOB TECHNIQUE: Procedure Code: RADCXR Modality: DX Procedure: CHEST PA AND LATERAL COMPARISON: 03/17/2025 FINDINGS: Multilevel spondylosis. Degenerative changes through the spine. Cervical spondylosis. Heart mediastinum are normal. Lungs are clear. No focal consolidation evident. Degenerative changes of the acromioclavicular joint is noted bilaterally. No pneumothorax. In moderate amount of stool in the colon RAD/Chest PA and Lateral IMPRESSION: No acute cardiopulmonary process. No significant change. Reading Location: [id number] CC: PERLA Kimble; Dr. 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: Signed [facility] 07-28-2025 Progress note [facility] 07-28-2025 Progress note Note Date/Time July 28, 2025 2:33pm [facility] [address] [place] [address] [place] [address] OFFICE VISIT Date of Service: 07/28/25 MR#: [id number] Acct: [id number] Name: ЮЛИЯ PRASAD Rep #: [id number] : 1955 Provider: PERLA Kimble Age/Sex: 69/F Location: [facility] Status: Signed Intake Vital Signs 07/20/25 09:50 07/28/25 13:49 Height 5 ft 1 in 5 ft 11 in Weight: 126 lb BMI 17.5 BP 108/64 Blood Pressure Location Lt brachial Position Sitting Respiration 14 Pulse 78 Pulse Source Monitor Temp 98.2 F Temp Source Temporal Pulse Oximetry (%) 98 Oxygen Delivery Method room air Intake Visit Reasons: Surgical Clearance Chief Complaint: 4 Week Med check Steward/Stewardess Dining Room Required: No Is patient in pain?: No Allergies ciprofloxacin HCl (From Cipro) Allergy (Verified 07/28/25 13:44) Rash clindamycin Allergy (Verified 07/28/25 13:44) throat swelling-see comment section fluoxetine HCl (From Prozac) Allergy (Verified 07/28/25 13:44) Rash metronidazole Allergy (Verified 07/28/25 13:44) Anaphylaxis Penicillins Allergy (Verified 07/28/25 13:44) Rash Sulfa (Sulfonamide Antibiotics) Allergy (Verified 07/28/25 13:44) Rash adhesive Adverse Reaction (Verified 07/28/25 13:44) redness with bandaids amoxicillin trihydrate (From Augmentin) Adverse Reaction (Verified 07/28/25 13:44) thrush/yeast infection potassium clavulanate (From Augmentin) Adverse Reaction (Verified 07/28/25 13:44) thrush/yeast infection rosuvastatin Adverse Reaction (Verified 07/28/25 13:44) Diarrhea Medications ?Medication ?Instructions ?Recorded ?Confirmed ?Type famotidine 20 mg tablet 20 mg PO QDAY 11/08/2407/28 History fluticasone 250 mcg-salmeterol 50 1 inh inhalation BID 11/08/24 07/28/25 History mcg/dose blistr powdr for inhalation aspirin 81 mg tablet,delayed 81 mg PO QDAY 02/02/25 History release (Adult Low Dose Aspirin) clobetasol 0.05 % topical cream 1 g topical QDAY PRN r smooth #15 grams 03/16/25 07/28/25 Rx cholecalciferol (vitamin D3) 25 1,000 unit PO DAILY #9 0 caps 04/26/25 07/28/25 Rx mcg (1,000 unit) capsule trazodone 100 mg tablet 100 mg PO QHS sleep #90 tabs 04/26/25 07/28/25 Rx pantoprazole 40 mg tablet,delayed 40 mg PO QDAY #90 ta bs 05/09/25 07/28/25 Rx release denosumab 60 mg/mL subcutaneous 60 mg subcut [id number] #1 mL 05/24/25 07/28/25 Rx syringe (Prolia) blood sugar diagnostic (Accu-Chek #100 ea 06/27/25 Rx Guide test strips) blood-glucose meter (Accu-Chek #1 ea 06/27/25 07/28/25 Rx Guide Glucose Meter) lancets (Accu-Chek Softclix #200 ea 06/27/25 07/28/25 Rx Lancets) atorvastatin 10 mg tablet (Lipitor) 10 mg PO QHS #30 t abs 07/14/25 07/28/25 Rx lisinopril 2.5 mg tablet 2.5 mg PO QDAY #30 tabs 03/0407/28/25 Rx dulaglutide 1.5 mg/0.5 mL 1.5 mg (0.5 mL) subcut QWEEK #2 mL 07/21/25 07/28/25 Rx subcutaneous pen injector coenzyme Q10 100 mg capsule (Co 200 mg (2 x 100 mg) PO DAILY 07/28/25 07/28/25 Rx Q-10) supplement #180 caps furosemide 20 mg tablet 20 mg PO DAILY #90 tabs 07/1107/28/25 Rx meloxicam 15 mg tablet 15 mg PO QDAY #90 tabs 07/2807/28/25 Rx metformin 500 mg tablet 500 mg PO BID #180 tabs 07/1107/28/25 Rx montelukast 10 mg tablet 10 mg PO QHS allergies #90 t abs 07/28/25 07/28/25 Rx ondansetron 4 mg disintegrating 4 mg PO Q8H PRN PRN Na usea #30 tabs 07/28/25 07/28/25 Rx tablet Have you fallen in the past year?: No Nurse's Note: Patient here for surgical clearance. Scheduled for L eye viterous removal dateof surgery 08/09/25. Pt advised to stop GLP1 1 week prior. Pt was there for preopand they took pictures of her eye. Pt's only concern is she is back and fourth of if she wants to proceed / surgery and has not spoken to their office. Pt states that her sx's started 3 weeks ago. Pt c/o sore throat, sinus pressure,ear and jaw pain. pt has been getting off balance, but has not fallen. Pt does not have a cough or SOB, Pt does c/o nausea and vomiting. [facility] prescribed fluconazle for yeast in urine culture. pt complerted 2 day course, and has allergy and are reconciled. Pt wondetrs if this contributes to sore throat. Pt has not tried treating these sx's w/ anything at home. Vomiting has subsided, but nausea has been constant since prior to taking diflucan. Pt does not recall flouracil cream, or if shes was told to stop asa and meloxicam. [facility] Medical History Right shoulder pain Left shoulder pain Vaginal atrophy Nocturia Urgency of urination Frequency of micturition Chest pain Diabetes HLD (hyperlipidemia) Osteopenia Monoclonal gammopathy Thyroid nodule Nonhealing surgical wound Ulcer of [...] cholecystectomy History of fusion of cervical spine (~2003) H/O: hysterectomy Family History Sister Colon polyps Hypertension Asthma Depression Melanoma Thyroid disorder Brother Colon polyps Parkinson disease Myocardial infarction Heart disease Mother Colon polyps Colon cancer COPD (chronic obstructive pulmonary disease) Arthritis Father Colon polyps Heart disease Myocardial infarction Grandmother Alcoholism Grandfather Diabetes Social History adopted: No household members: none number of children: 3 current occupational 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 Patient states she has had multiple eye surgeries before. States her vision is blurry in that eye and this should get rid of the floaters and improve her vision. She states they will be using a twilight anesthesia for this procedure. She does complain of a slightly sore throat today states it seems sore since she took fluconazole and she is concerned about thrush as she has a history of having adverse effects to antibiotics and having yeast infections. She states some shortness of breath at times she is also complained of feeling unsteady anddizzy with any movement including from lying to sitting or sitting to standing even when moving slowly and feeling as if she needs to have something to hold onto. She states in the past she was on lisinopril and her blood pressure was too low that they had to stop it. States her symptoms began when she started taking lisinopril recently. ROS Const Constitutional: Positive for body ache and headache(s); No chills, excessive sweating, fatigue, fever(s), frequent falls, snoring, weakness, sleep problems or change in appetite Eyes Eyes: No blurry vision, eye pain or Light sensitivity ENT ENT: Positive for ear or mastoid pain, nasal congestion, headache(s) and sore throat; No abnormal hearing, tinnitus or neck pain Resp Respiratory: No cough, shortness of breath, snoring or wheezing Cardio Cardiology: No chest pain at rest, chest pain with exertion, excessive sweating,shortness of breath, dyspnea on exertion, lightheadedness, orthopnea or palpitations Gastro GI: Positive for nausea/dyspepsia and vomiting; No abdominal pain, change in bowel habits, constipation, cramping or diarrhea Genitourinary-Female: No burning urination, painful urination, urinary incontinence, urinary frequency, abnormal vaginal bleeding or pelvic pain Musc Musculoskeletal: Positive for joint pain, back pain, numbness and radiating paininto limb; No abnormal gait, limited range of motion or neck pain Skin Skin: No dry skin, redness, lesions, itchy eyes, rash or wounds Neuro Neurology: Positive for headache(s) and numbness; No abnormal gait, abnormal hearing, weakness, frequent falls or memory loss Psych Psychiatric: No anxiety, No change in appetite, No depression, No memory loss and No Thoughts of harming yourself/Others Endo Endocrine: No cold intolerance, excessive sweating, fatigue, flushing, heat intolerance, increased thirst/drinking or increased hunger Aller/Imm Allergy/Immunologic: No itchy eyes, seasonal allergy symptoms, hives or wheezing Jeet/Lymp Hematologic/Lymphatic: No easy bleeding, easy bruising, enlarged lymph nodes or other Exam Const General: cooperative, no acute distress, well groomed and well hydrated Nutritional Appearance: well nourished Orientation: alert and oriented x3 HENMT Head: normal to inspection Ears: hearing grossly normal bilaterally Nose: external nose normal and nares normal Face and sinus: normal facial exam Mouth: oral mucosae normal, lip normal and moist mucous membranes Eyes General: appearance normal, both eyes and all related structures Pupils: PERRL Neck Neck: normal visual inspection, no lymphadenopathy and trachea midline Thyroid: thyroid normal Carotids: normal carotid upstroke and no bruits Lymphatic: no lymphadenopathy noted Chest Chest palpation & inspection: normal inspection of the chest Resp Effort & Inspection: normal respiratory effort, able to speak in complete sentences and symmetric chest movement Auscultation: Bilateral: Clear to Auscultation and Diminished Lung Sounds (lowerlobes) Cardio Palpation: normal PMI Rate: regular rate Rhythm: regular rhythm Heart Sounds: S1 normal and S2 normal Pulses: radial pulses present GI Inspection: normal to inspection Auscultation: normal bowel sounds Palpation: soft and nontender Musc Musculoskeletal: No joint tenderness, joint redness or muscle weakness Skin General: no rashes or lesions noted Lesions: no lesions Rashes: no rashes Trauma: no lacerations or abrasions Wounds: no wounds Neuro General: patient alert, patient oriented x3 and deep tendon reflexes 2+ bilaterally Speech: speech normal Motor: muscle tone normal throughout Extrem General: normal to inspection and capillary refill normal Psych Appearance: grossly normal and well kempt Coding Level of Care Code Established Pt Off vis,est,level 4 Patient Type Established History Expanded Problem Focused Exam Comprehensive Medical Decision Making Moderate Complexity Diagnoses Preop exam for internal medicine Z01.818 Shortness of breath R06.02 Dizziness on standing R42 Time Spent (min) 45 Assessment and Plan Assessment and Plan (1) Preop exam for internal medicine: Status: Acute Plan: Pt scheduled for vitreous opacity removal of the left eye 08/09/25. Anesthesia planned is twilight. Beasley RCRI score 0. Considered low risk of , ND, or arrest within a month of surgery. (2) Shortness of breath: Status: Acute Plan: Patient with some shortness of breath states she is not sure if due to feeling dizzy or otherwise. Will obtain chest x-ray for preop evaluation. (3) Dizziness on standing: Status: Acute Plan: Patient's blood pressure is significantly lower since starting lisinopril. Patient states in the past lisinopril made her blood pressure too low and it wasdiscontinued. Patient is currently on 2.5 mg of lisinopril daily. Prior to starting lisinopril her blood pressure was elevated discussed with patient to cut lisinopril in half and take half of the dose or 1.25 mg daily to see if thatlowers blood pressure appropriately without the adverse effects. Patient verbalizes understanding. Orders: Orders Chest PA and Lateral 07/28/25 R06.02 - Shortness of breath CBC W/Diff, Automated 07/28/25 R07.9 - Chest pain, unspecified Comprehensive Metabolic Profil 07/28/25 Z01.818 - Encounter for other preprocedural examination Clinical Quality Measures Falls Risk Screening/Assistive Devices Have you fallen in the past year?: No 07/29/25 0809 <Electronically signed by Evelia DUNCAN> Date _ Evelia Lama Signature: Date (if applicable) CC: ~ [facility] Work Phone: 1(816) 793-495209-10-2025 Progress [facility] [address], [address] [place], [place] [id number] OFFICE VISIT Date of Service: 07/20/25 MR#: [id number] Acct: [id number] Name: ЮЛИЯ PRASAD Rep #: [id number] : 1955 Provider: PERLA Acevedo Age/Sex: 69/F Location: [facility] Status: Signed Intake Vital Signs 06/21/25 10:53 07/05/25 13:56 07/20/25 09:45 07/20/25 09:50 Height 5 ft 1 in 5 ft 1 in 5 ft 1 in 5 ft 1 in Weight: 128 lb 6 oz BMI 24.3 BP 140/84 H Intake Visit Reasons: 4 Med Ck Chief Complaint: 4 Week Med check Steward/Stewardess Dining Room Required: No Is patient in pain?: No Allergies ciprofloxacin HCl (From Cipro) Allergy (Verified 07/20/25 09:45) Rash clindamycin Allergy (Verified 07/20/25 09:45) throat swelling-see comment section fluoxetine HCl (From Prozac) Allergy (Verified 07/20/25 09:45) Rash metronidazole Allergy (Verified 07/20/25 09:45) Anaphylaxis Penicillins Allergy (Verified 07/20/25 09:45) Rash Sulfa (Sulfonamide Antibiotics) Allergy (Verified 07/20/25 09:45) Rash adhesive Adverse Reaction (Verified 07/20/25 09:45) redness with bandaids amoxicillin trihydrate (From Augmentin) Adverse Reaction (Verified 07/20/25 09:45) thrush/yeast infection potassium clavulanate (From Augmentin) Adverse Reaction (Verified 07/20/25 09:45) thrush/yeast infection rosuvastatin Adverse Reaction (Verified 07/20/25 09:45) Diarrhea Medications ?Medication ?Instructions ?Recorded ?Confirmed ?Type famotidine 20 mg tablet 20 mg PO QDAY 11/08/2407/20 History fluticasone 250 mcg-salmeterol 50 1 inh inhalation BID 11/08/24 07/20/25 History mcg/dose blistr powdr for inhalation aspirin 81 mg tablet,delayed 81 mg PO QDAY 02/02/25 History release (Adult Low Dose Aspirin) fluorouracil 5 % topical cream 1 applic topical BID 07/20/25 History clobetasol 0.05 % topical cream 1 g topical QDAY PRN r smooth #15 grams 03/16/25 07/20/25 Rx cholecalciferol (vitamin D3) 25 1,000 unit PO DAILY #9 0 caps 04/26/25 07/20/25 Rx mcg (1,000 unit) capsule coenzyme Q10 100 mg capsule (Co 200 mg (2 x 100 mg) PO DAILY 04/26/25 07/20/25 Rx Q-10) supplement #180 caps furosemide 20 mg tablet 20 mg PO DAILY #90 tabs 04/1007/20/25 Rx meloxicam 15 mg tablet 15 mg PO QDAY #90 tabs 04/2607/20/25 Rx metformin 500 mg tablet 500 mg PO BID #180 tabs 04/1007/20/25 Rx montelukast 10 mg tablet 10 mg PO QHS allergies #90 t abs 04/26/25 07/20/25 Rx trazodone 100 mg tablet 100 mg PO QHS sleep #90 tabs 04/26/25 07/20/25 Rx pantoprazole 40 mg tablet,delayed 40 mg PO QDAY #90 ta bs 05/09/25 07/20/25 Rx release dulaglutide 0.75 mg/0.5 mL 1.5 mg subcut QWEEK 5 07/20/25 History subcutaneous pen injector (Trulicity) denosumab 60 mg/mL subcutaneous 60 mg subcut [id number] #1 mL 05/24/25 07/20/25 Rx syringe (Prolia) ondansetron 4 mg disintegrating 4 mg PO Q8H PRN PRN Na usea #30 tabs 06/07/25 07/20/25 Rx tablet estradiol 0.01% (0.1 mg/gram) See Rx Instructions vagi nal 06/21/25 07/20/25 Rx vaginal cream .COMPLEX #42.5 grams blood sugar diagnostic (Accu-Chek #100 ea 06/27/2509/03 Rx Guide test strips) blood-glucose meter (Accu-Chek #1 ea 06/27/25 07/20/25 Rx Guide Glucose Meter) lancets (Accu-Chek Softclix #200 ea 06/27/25 07/20/25 Rx Lancets) atorvastatin 10 mg tablet (Lipitor) 10 mg PO QHS #30 t abs 07/14/25 07/20/25 Rx lisinopril 2.5 mg tablet 2.5 mg PO QDAY #30 tabs 03/0407/20/25 Rx Is last menstrual period known: No Post menopausal: Yes Patient : No : No PFSH Medical History Right shoulder pain Left shoulder pain Vaginal atrophy Nocturia Urgency of urination Frequency of micturition Chest pain Diabetes HLD (hyperlipidemia) Osteopenia Monoclonal gammopathy Thyroid nodule Nonhealing surgical wound Ulcer of [...] cholecystectomy History of fusion of cervical spine (~2003) H/O: hysterectomy Family History Sister Colon polyps Hypertension Asthma Depression Melanoma Thyroid disorder Brother Colon polyps Parkinson disease Myocardial infarction Heart disease Mother Colon polyps Colon cancer COPD (chronic obstructive pulmonary disease) Arthritis Father Colon polyps Heart disease Myocardial infarction Grandmother Alcoholism Grandfather Diabetes Social History adopted: No household members: none number of children: 3 current occupational 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 States that it made her feel very raw so stopped it after 2 weeks. She had growth of Gardnerella on last culture but has anaphylaxis to flagyl and clindamycin so was attempting to manage atrophy first to see if would help burning, dryness. History 4 Elective abortions Hx Para 3 Spontaneous abortions 1 Hx # Term Pregnancies Ectopic pregnancies Hx # Pregnancies Multiple births # of living children 3 Past Pregnancies Del. Date Name GA/Weeks Outcome Route Bth Weight Gen Labor Lgth Anesthesia Del Locatn Provider FOB Unknown Benedict- 1974 Unknown Jose Carlos- 1978 Unknown - 1981 ROS Const Constitutional: Reports system reviewed and no additional complaints, except as documented Eyes Eyes: Reports system reviewed and no additional complaints, except as documented GI GI: Denies abdominal pain or change in bowel habits : Reports as per HPI Exam Const General: cooperative, no acute distress, well developed and well groomed Nutritional Appearance: well nourished Orientation: oriented x3 Neck Neck: normal visual inspection External Female Exam: normal appearance of the urethra and other (atrophic changes with regression of minora) Urethra: normal appearance of the urethra Speculum Exam - Vagina: vagina atrophic (significant) Speculum Exam - Cervix: absent Bimanual Exam- Vagina & Uterus: uterus absent Bimanual Exam- Adnexa, other: normal adnexae, no masses, non-tender and cystocele Pelvic Support: cystocele mild Coding Level of Care Code Off vis,est,level 3 Diagnoses Vaginal burning N94.89 Atrophic vaginitis N95.2 Assessment and Plan Assessment and Plan (1) Vaginal burning: Status: Acute (2) Atrophic vaginitis: Status: Acute Comment: estradiol cream/caused vaginitis sx and stopped Orders: Orders Culture, Genital Comprehensive Today N89.8 - Other specified noninflammatory disorders of vagina Plan stop all vaginal medications use A&D ointment only comp vaginal culture and sensitivities for any growth Call patient with results 07/20/[address] GRADER-C> Date _ [address]inny Ace[address] [facility] Cosigner Signature: Date (if applicable) CC: ~ [facility]07-07-2025 Evaluation note* Diagnosis Onset Date Resolution Status Admit Date Chest pain acute May 16, 2025 2:14pm Heart palpitations acute May 162024 2:14pm Osteoporosis inactive June 07, 2 025 1:23pm Cystocele, midline acute June 10, 2025 2:35pm Frequency of micturition acute June 10, 2025 2:35pm H/O urinary retention acute Jun 2:35pm Nocturia acute June 10 2:35pm Urgency of urination acute 2024 2:35pm Vaginal atrophy acute June 2:35pm Atrophic vaginitis acute June 21, 2025 10:49am Dysphagia acute June 27 2 025 1:22pm Pulmonary nodules acute June 27, 2025 1:22pm Smoking greater than 30 pack years acute June 27 1:22pm Diabetes chronic June 27 025 1:22pm Thyroid nodule noneactive June 1:22pm Elevated blood pressure reading noneactive June 27 1:22pm Vitamin deficiency noneactive June 27, 2025 1:22pm Rash and nonspecific skin eruption noneactive June 27 1:22pm Mid back pain on right side noneacti ve June 27, 2025 1:22pm Anxiety and depression noneactive Au maryann 2024 1:22pm Chronic left shoulder pain noneactiv e June 27, 2025 1:22pm Monoclonal gammopathy noneactive Jun us2024 1:22pm Asthma noneactive June 27 025 1:22pm Left shoulder pain acute July 05, 2025 1:52pm Right shoulder pain acute Augus t 2024 1:52pm Atrophic vaginitis acute 2024 9:43am Vaginal burning acute July 20, 2025 9:43am Dizziness on standing acute Sep tember 2024 1:09pm Preop exam for internal medicine acute July 28, 2025 1:09pm Shortness of breath acute [facility] 2024 1:09pm [facility] Work Phone: 1(901) 374-518905-28-2025 Evaluation note* Diagnosis Onset Date Resolution Status Admit Date Pulmonary nodules acute March 10:11am Smoking greater than 30 pack years acute April 06, 2025 1 0:11am Asthma noneactive April 06, 2025 10:11am Dysphagia acute April 07, 2025 1:19pm Nausea & vomiting acute March 1:19pm Esophageal reflux inactive March 1:19pm Chest pain acute May 16, 2025 2:14pm Heart palpitations acute May 162024 2:14pm Osteoporosis inactive June 07, 2 025 1:23pm Cystocele, midline acute June 10, 2025 2:35pm Frequency of micturition acute June 10, 2025 2:35pm H/O urinary retention acute Jun 2:35pm Nocturia acute June 10 2:35pm Urgency of urination acute 2024 2:35pm Vaginal atrophy acute June 2:35pm Atrophic vaginitis acute June 21, 2025 10:49am Dysphagia acute June 27 2 025 1:22pm Pulmonary nodules acute June 27, 2025 1:22pm Smoking greater than 30 pack years acute June 27 1:22pm Diabetes chronic June 27, 2 025 1:22pm Thyroid nodule noneactive June 1:22pm Elevated blood pressure reading noneactive June 27 1:22pm Vitamin deficiency noneactive June 27, 2025 1:22pm Rash and nonspecific skin eruption noneactive June 27 1:22pm Mid back pain on right side noneacti ve June 27, 2025 1:22pm Anxiety and depression noneactive Au 2024 1:22pm Chronic left shoulder pain noneactiv e June 27, 2025 1:22pm Monoclonal gammopathy noneactive Jun 1:22pm Asthma noneactive June 27 025 1:22pm Left shoulder pain acute July 05, 2025 1:52pm Right shoulder pain acute 2024 1:52pm [facility] Work Phone: 1(640) 184-819705-28-2025 Evaluation note* Diagnosis Onset Date Resolution Status Admit Date Pulmonary nodules acute March 10:11am Smoking greater than 30 pack years acute April 06, 2025 1 0:11am Asthma noneactive April 06, 2025 10:11am Dysphagia acute April 07, 2025 1:19pm Nausea & vomiting acute March 1:19pm Esophageal reflux inactive March 1:19pm Chest pain acute May 16, 2025 2:14pm Heart palpitations acute May 162024 2:14pm Osteoporosis inactive June 07, 2 025 1:23pm Cystocele, midline acute June 10, 2025 2:35pm Frequency of micturition acute June 10, 2025 2:35pm H/O urinary retention acute Jun 2:35pm Nocturia acute June 10 2:35pm Urgency of urination acute 2024 2:35pm Vaginal atrophy acute June 2:35pm Atrophic vaginitis acute June 21, 2025 10:49am Dysphagia acute June 27 2 025 1:22pm Pulmonary nodules acute June 27, 2025 1:22pm Smoking greater than 30 pack years acute June 27 1:22pm Diabetes chronic June 27 025 1:22pm Thyroid nodule noneactive June 1:22pm Elevated blood pressure reading noneactive June 27 1:22pm Vitamin deficiency noneactive June 27, 2025 1:22pm Rash and nonspecific skin eruption noneactive June 27 1:22pm Mid back pain on right side noneacti ve June 27, 2025 1:22pm Anxiety and depression noneactive Au 2024 1:22pm Chronic left shoulder pain noneactiv e June 27, 2025 1:22pm Monoclonal gammopathy noneactive Jun 1:22pm Asthma noneactive June 27 025 1:22pm Left shoulder pain acute July 05, 2025 1:52pm Right shoulder pain acute Junus t 2024 1:52pm Atrophic vaginitis acute Sept2024 9:43am Vaginal burning acute July 20, 2025 9:43am [facility] Work Phone: 1([phone]) 390-780305-28-2025 Evaluation note* Diagnosis Onset Date Resolution Status Admit Date Pulmonary nodules acute March 10:11am Smoking greater than 30 pack years acute April 06, 2025 1 0:11am Asthma noneactive April 06, 2025 10:11am Dysphagia acute April 07, 2025 1:19pm Nausea & vomiting acute March 1:19pm Esophageal reflux inactive March 1:19pm Chest pain acute May 16, 2025 2:14pm Heart palpitations acute May 162024 2:14pm Osteoporosis inactive June 07, 2 025 1:23pm Cystocele, midline acute June 10, 2025 2:35pm Frequency of micturition acute June 10, 2025 2:35pm H/O urinary retention acute Jun 2:35pm Nocturia acute June 10 2:35pm Urgency of urination acute Junu st 2024 2:35pm Vaginal atrophy acute June 2:35pm Atrophic vaginitis acute June 21, 2025 10:49am Dysphagia acute June 27 2 025 1:22pm Pulmonary nodules acute June 27, 2025 1:22pm Smoking greater than 30 pack years acute June 27 1:22pm Diabetes chronic June 27, 2 025 1:22pm Thyroid nodule noneactive June 1:22pm Elevated blood pressure reading noneactive June 27 1:22pm Vitamin deficiency noneactive June 27, 2025 1:22pm Rash and nonspecific skin eruption noneactive June 27 1:22pm Mid back pain on right side noneacti ve June 27, 2025 1:22pm Anxiety and depression noneactive Au 2024 1:22pm Chronic left shoulder pain noneactiv e June 27, 2025 1:22pm Monoclonal gammopathy noneactive Jun us2024 1:22pm Asthma noneactive June 27 025 1:22pm Left shoulder pain acute July 05, 2025 1:52pm Right shoulder pain acute Augus t 2024 1:52pm Atrophic vaginitis acute 2024 9:43am Vaginal burning acute July 20, 2025 9:43am Dizziness on standing acute Sep tember 2024 1:09pm Preop exam for internal medicine acute July 28, 2025 1:09pm Shortness of breath acute Septe [facility] 2024 1:09pm [place] [facility] Work Phone: [phone]) 100-551105-14-2025 Radiology Diagnostic study note [facility] Imaging Services [address] [place] [address] Thyroid MR#: [id number] Acct: [id number] Name: ЮЛИЯ PRASAD Rep #: [id number] : 1955 F 69 From: Papa Carrero MD PCP: Dr. Dennis Chow MD Status: REG CLI Study:Thyroid Date of Exam: 03/22/25 Exam# [id number] Ordering Dr: Dennis Chow MD PROCEDURE: THYROID 03/22/2025 REASON FOR EXAM: NODULE FOLLOW UP TECHNIQUE: High-frequency thyroid ultrasound, including grayscale and color-flow images. REFERENCE LINKS: TI-RADS Chart: [email or web address] TI-RADS Calculator Tool with Reference Images: [email or web address]-[email or web address]/tirads-[email or web address]/ COMPARISON: Comparison is made with prior study [...] no more than 2 nodules. Reading Location: [id number] CC: Dr. 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: Signed [facility]05-14-2025 Radiology Diagnostic study note [facility] Services [address] [address] Kidney and Bladder MR#: [id number] Acct: [id number] Name: ЮЛИЯ PRASAD Rep #: [id number] : 1955 F 69 From: Papa Carrero MD PCP: Dr. Dennis Chow MD Status: REG CLI Study:Kidney and Bladder Date of Exam: 0 03/22/25 Exam# [id number] Ordering Dr: Dennis Chow MD PROCEDURE: KIDNEY [...] Left renal cyst. Postvoid residual. Reading Location: [id number] CC: Dr. 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: Signed [facility]05-12-2025 Radiology Diagnostic study note [facility] Imaging Services [address] [place] [address] Chest without Contrast MR#: [id number] Acct: [id number] Name: ЮЛИЯ PRASAD Rep #: [id number] : 1955 F 69 From: Papa Carrero MD PCP: Dr. Dennis Chow MD Status: REG CLI Study:Chest without Contrast Date of Exam: 03/17/25 Exam# [id number] Ordering Dr: Rachel Madden RO[address] GRADER-C PROCEDURE: CHEST WITHOUT CONTRAST 03/17/2025 REASON FOR [...] lateral aspect of the right upper lobe asseen on axial image number 29. Stable 4.3 mm noncalcified nodule in the posterior medial aspect of the superior segment of theright lower lobe as seen on axial image [...] examination. 12 month follow-up recommended. Reading Location: [id number] CC: Dr. Dennis Chow MD; Rachel Madden NP ~ Structural Iron Erector: Signed [facility]05-01-2025 NoteHNO ID: [id number] Author: BERNICE SIMS CPhT Service: ? Author Type: Mathematics Education Professor Type: Progress Notes Filed: 03/10/2025 09:01 Note Text: Patient is identified through a medication adherence outreach initiative based on pharmacy claims data from: [employer] Medication Adherence Category: Statins First Review Attribution [...] Bernice Sims CPhT [facility] History of Present illness Narrative* Bernice Sims CPhT - 03/10/2025 8:51 AM EDT Patient is identified through a medication adherence outreach initiative based on pharmacy claims data from: [employer] Medication Adherence Category: Statins First Review Attribution [...] Based Care Pharmacy Team documented in this encounter[facility]05-[facility]25 NotePatient Outreach (PHPOHE) ЮЛИЯ PRASAD Matt ([id number]) 1955 F Date Time Provider Department 03/10/25 DENNIS CHOWMALarry During your visit today, we recorded the following information about you: Bernice Sims CPhT 03/10/2025 9:01 AM Signed Patient is identified through a medication adherence outreach initiative based on pharmacy claims data from: [employer] Medication Adherence Category: Statins First Review Attribution [...] concerns to be addressed Bernice Sims CPhT [facility] Pharmacy Team Allergies As of Date: 03/10/2025 [...] Pill dysphagia [R13.10] 0 (more content not included)...[facility]04-30-20[facility] Evaluation note* Diagnosis Onset Date Resolution Status Admit Date Dysphagia acute March 09 9:24am Nausea & vomiting acute February 102024 9:24am Dysphagia acute March 16, 2025 12:35pm Pulmonary nodules acute March 12:35pm Smoking greater than 30 pack years acute March 16, 2025 12 :35pm Diabetes chronic March 16, 2025 12:35pm Screening for depression noneactive March 16, 2025 12:35pm Immunization declined noneactive March 16, 2025 12:35pm Thyroid nodule noneactive March 16, 2 025 12:35pm Establishing care with new doctor, encounter for noneactive March 16, 2 025 12:35pm Vitamin deficiency noneactive March 12:35pm [...] Osteoporosis inactive June 07, 2 025 1:23pm [place] [facility] Work Phone: [phone] 869-521804-30-2025 Evaluation note* Diagnosis Onset Date Resolution Status Admit Date Dysphagia acute March 09 9:24am Nausea & vomiting acute February 102024 9:24am Dysphagia acute March 16, 2025 12:35pm Pulmonary nodules acute March 12:35pm Smoking greater than 30 pack years acute March 16, 2025 12 :35pm Diabetes chronic March 16, 2025 12:35pm Screening for depression noneactive March 16, 2025 12:35pm Immunization declined noneactive March 16, 2025 12:35pm Thyroid nodule noneactive March 16, 2 025 12:35pm Establishing care with new doctor, encounter for noneactive March 16, 2 025 12:35pm Vitamin deficiency noneactive March 12:35pm [...] Osteoporosis inactive June 07, 2 025 1:23pm H/O urinary retention acute Jun 2:35pm [place] [facility] Work Phone: 1([phone]) 743-621904-30-2025 Evaluation note* Diagnosis Onset Date Resolution Status Admit Date Dysphagia acute March 09 9:24am Nausea & vomiting acute February 102024 9:24am Dysphagia acute March 16, 2025 12:35pm Pulmonary nodules acute March 12:35pm Smoking greater than 30 pack years acute March 16, 2025 12 :35pm Diabetes chronic March 16, 2025 12:35pm Screening for depression noneactive March 16, 2025 12:35pm Immunization declined noneactive March 16, 2025 12:35pm Thyroid nodule noneactive March 16, 2 025 12:35pm Establishing care with new doctor, encounter for noneactive March 16, 2 025 12:35pm Vitamin deficiency noneactive March 12:35pm [...] acute May 162024 2:14pm Osteoporosis inactive June 07 025 1:23pm Cystocele, midline acute June 10, 2025 2:35pm Frequency of micturition acute June 10, 2025 2:35pm H/O urinary retention acute Jun 2:35pm Nocturia acute June 10 2:35pm Urgency of urination acute 2024 2:35pm Vaginal atrophy acute June 2:35pm [facility] Work Phone: 1(822) 758-434504-30-2025 Evaluation note* Diagnosis Onset Date Resolution Status Admit Date Dysphagia acute March 09 9:24am Nausea & vomiting acute February 102024 9:24am Dysphagia acute March 16, 2025 12:35pm Pulmonary nodules acute March 12:35pm Smoking greater than 30 pack years acute March 16, 2025 12 :35pm Diabetes chronic March 16, 2025 12:35pm Screening for depression noneactive March 16, 2025 12:35pm Immunization declined noneactive March 16, 2025 12:35pm Thyroid nodule noneactive March 16, 2 025 12:35pm Establishing care with new doctor, encounter for noneactive March 16 2 025 12:35pm Vitamin deficiency noneactive March 12:35pm [...] Osteoporosis inactive June 07, 2 025 1:23pm Cystocele, midline acute June 10, 2025 2:35pm Frequency of micturition acute June 10, 2025 2:35pm H/O urinary retention acute Jun 2:35pm Nocturia acute June 10 2:35pm Urgency of urination acute 2024 2:35pm Vaginal atrophy acute June 2:35pm Atrophic vaginitis acute June 21, 2025 10:49am Dysphagia acute June 27, 2 025 1:22pm Pulmonary nodules acute June 27, 2025 1:22pm Smoking greater than 30 pack years acute June 27 1:22pm Diabetes chronic June 27, 2 025 1:22pm Thyroid nodule noneactive June 1:22pm Vitamin deficiency noneactive June 27, 2025 1:22pm Rash and nonspecific skin eruption noneactive June 27 1:22pm Mid back pain on right side noneacti ve June 27, 2025 1:22pm Degeneration of intervertebr al disc noneactive June 27 1:22pm Chronic left shoulder pain noneactiv e June 27, 2025 1:22pm Monoclonal gammopathy noneactive Jun 1:22pm Asthma noneactive June 27, 2 025 1:22pm [place] [facility] Work Phone: 1(261) 433-581704-30-2025 Evaluation note* Diagnosis Onset Date Resolution Status Admit Date Dysphagia acute March 09 9:24am Nausea & [...] new doctor, encounter for noneactive March 16, 2 025 12:35pm Vitamin deficiency noneactive March 12:35pm [...] Osteoporosis inactive June 07, 2 025 1:23pm Cystocele, midline acute June 10, 2025 2:35pm Frequency of micturition acute June 10, 2025 2:35pm H/O urinary retention acute Jun 2:35pm Nocturia acute June 10 2:35pm Urgency of urination acute 2024 2:35pm Vaginal atrophy acute June 2:35pm Atrophic vaginitis acute June 21, 2025 10:49am Dysphagia acute June 27, 2 025 1:22pm Pulmonary nodules acute June 27, 2025 1:22pm Smoking greater than 30 pack years acute June 27 1:22pm Diabetes chronic June 27 2 025 1:22pm Thyroid nodule noneactive June 1:22pm Elevated blood pressure reading noneactive June 27 1:22pm Vitamin deficiency noneactive June 27, 2025 1:22pm Rash and nonspecific skin eruption noneactive June 27 1:22pm Mid back pain on right side noneacti ve June 27, 2025 1:22pm Anxiety and depression noneactive Au maryann 2024 1:22pm Chronic left shoulder pain noneactiv e June 27, 2025 1:22pm Monoclonal gammopathy noneactive Jun ust 2024 1:22pm Asthma noneactive June 27 025 1:22pm [facility] Work Phone: [phone]) 474-714904-30-2025 Evaluation note* Diagnosis Onset Date Resolution Status Admit Date Dysphagia acute March 09 9:24am Nausea & [...] Osteoporosis inactive June 07, 2 025 1:23pm Cystocele, midline acute June 10, 2025 2:35pm Frequency of micturition acute June 10, 2025 2:35pm H/O urinary retention acute Jun 2:35pm Nocturia acute June 10 2:35pm Urgency of urination acute 2024 2:35pm Vaginal atrophy acute June 2:35pm Atrophic vaginitis acute June 21, 2025 10:49am Dysphagia acute June 27 2 025 1:22pm Pulmonary nodules acute June 27, 2025 1:22pm Smoking greater than 30 pack years acute June 27 1:22pm Diabetes chronic June 27 2 025 1:22pm Thyroid nodule noneactive June 1:22pm Elevated blood pressure reading noneactive June 27 1:22pm Vitamin deficiency noneactive June 27, 2025 1:22pm Rash and nonspecific skin eruption noneactive June 27 1:22pm Mid back pain on right side noneacti ve June 27, 2025 1:22pm Anxiety and depression noneactive Au maryann 2024 1:22pm Chronic left shoulder pain noneactiv e June 27, 2025 1:22pm Monoclonal gammopathy noneactive Jun 1:22pm Asthma noneactive June 27 2 025 1:22pm Left shoulder pain acute July 05, 2025 1:52pm Right shoulder pain acute t 2024 1:52pm [facility] Work Phone: 1(162) 910-398504-30-2025 [facility] Medical Records Department [facility] [place] [address] History Physical Exam 03/09/25 1111 MR#: [id number] Acct: [id number] Name: ЮЛИЯ PRASAD Rep #: [id number] : 1955 69 From: Pernell Philippe DO PCP: Care Physician,No [place] [facility] [place]: [place] [address] HPI - General General Date of Admission: 03/09/25 Date of Service: 03/09/25 Chief Complaint: dysphagia HPI Narrative ЮЛИЯ PRASAD, is a 69 F who presents Barium Swallow X-Ray 12 Normal plain film x-ray examination (barium swallow) of the esophagus. *[facility] established 2 pt reports that for the past few [...] and would like a referral to one. [facility] Medical History (Updated 03/09/25 @ 11:[address] 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 [facility]04-11-2025 NoteHNO ID: [id number] Author: CRISTHIAN SMITH DO Service: ? Author Type: Physician Type: Progress Notes Filed: 02/18/2025 14:49 Note Text: Hematologic problem(s): 1) IgG lambda MGUS. HPI: The patient is a 69-year-old female with a past medical history as outlined below. Establish with new PCP prior to referral here. Had lab work done through [facility] that showed an increase in serum [...] DX W/COLLJ SPEC WHEN PFRMD Done in [place] unable to obtain COLONOSCOPY FLX DX W/COLLJ [...] 100 mg by m (more content not included)...[facility]04-11-2025 History of Present illness Narrative* Cristhian Smith DO - 02/18/2025 2:33 PM EDT Hematologic problem(s): 1) IgG lambda MGUS. HPI: The patient is a 69-year-old female with a past medical history as outlined below. Establish with new PCP prior to referral here. Had lab work done through [facility] that showed an increase in serum [...] DX W/COLLJ SPEC WHEN PFRMD Done in [place] unable to obtain COLONOSCOPY FLX DX W/COLLJ [...] bedtime. One or two blood sugar diagnostic (PantechUCH VERIO TEST STRIPS) test strip Test blood [...] which included preparing to see the patient, [id number] patient care, completing clinical documentation, obtaining and/or reviewing separately obtained history, performing a medically appropriate examination, counseling and educating the pat ient/family/caregiver, communicating with other HCPs (not separately reported), and communicating results to the patient/family/caregiver. Cristhian Smith DO documented in this encounterGalion [facility]04-03-2025 NoteHNO ID: [id number] Author: OLGA GALAN CPhT Service: ? Author Type: Mathematics Education Professor Type: Progress Notes Filed: 02/10/2025 09:19 Note Text: Patient is identified through a medication adherence outreach initiative based on pharmacy claims data from: [employer] Medication Adherence Category: Diabetes First Review Attribution [...] Olga Galan CPhT Value Based [facility]04-03-2025 History of Present illness Narrative* Olga Galan CPhT - 02/10/2025 9:07 AM EDT Patient is identified through a medication adherence outreach initiative based on pharmacy claims data from: [employer] Medication Adherence Category: Diabetes First Review Attribution [...] Based Care Pharmacy Team documented in this encounterGalion [facility]04-03-2025 NotePatient Outreach (PHPOHE) ЮЛИЯ PRASAD ([id number]) 1955 F Date Time Provider Department 02/10/25 NO PCP (HIST) PHPOHE During your visit today, we recorded the following information about you: Olga Galan CPhT 02/10/2025 9:19 AM Signed Patient is identified through a medication adherence outreach initiative based on pharmacy claims data from: [employer] Medication Adherence Category: Diabetes First Review Attribution [...] Galan CPhT Value Based Care Pharmacy Team Allergies As of Date: 02/10/2025 [...] [R91.8] 05/15/2015 03/27/2023 Emphy (more content not included)...[facility]04-01-2025 NoteHNO ID: [id number] Author: OLGA GALAN CPhT Service: ? Author Type: Mathematics Education Professor Type: Progress Notes Filed: 02/08/2025 13:10 Note Text: Patient is identified through a medication adherence outreach initiative based on pharmacy [facility]: [facility] Medication Adherence Category: Statins First Review Attribution [...] Olga Galan CPhT Value Based [facility] TeamF[facility]04-01-2025 History of Present illness Narrative* Olga [...] to be addressed Olga Galan CPhT Value [facility] Care Pharmacy Team documented in this encounterGalion [facility] Hospital04-01-2025 NotePatient Outreach (PHPOHE) ЮЛИЯ PRASAD ([id number]) 1955 F Date Time Provider Department 02/08/25 [...] Galan CPhT Value Based Care Pharmacy Team Allergies As of Date: 02/08/2025 [...] Discard Pen After - blood sugar diagnostic (PantechUCH VERIO TEST STRIPS) test strip Test blood [...] Lung nodules [R91.8] 05/15 (more content not included)...[facility]03-26-[facility] Evaluation note* Diagnosis Onset Date Resolution [...] 2:14pm Heart palpitations acute May 162024 2:14pm [facility] Work Phone: [phone]) [phone] Evaluation note* Diagnosis Onset Date Resolution Status Admit Date Diarrhea acute December 28, 2024 11:17am [facility] Work Phone: [phone]) 372-724202-18-2025 Evaluation note* Diagnosis Onset Date Resolution Status [...] new doctor, encounter for noneactive March 16, 2 025 12:35pm Vitamin deficiency noneactive March 12:35pm [...] 12:35pm Asthma noneactive March 16, 2025 12:35pm [facility] Work Phone: 1(860) 202-525302-18-2025 Evaluation note* Diagnosis Onset Date Resolution Status [...] 0:11am Asthma noneactive April 06, 2025 10:11am [facility] Work Phone: 1(725) 997-222202-07-2025 NoteHNO ID: [id number] Author: IRAIDA PAGE MA Service: ? Author Type: Pooling Operator Type: Progress Notes Filed: 12/17/2024 07:37 Note Text: POPULATION HEALTH NAVIGATION OUTREACH Action/FYI - [employer] Unknown PCP Patient is already scheduled with Sahra Segura CNP to est care and appointment note states not to reschedule this appointment as it has been rescheduled already. I updated PCP team field and added to appointment note to review PCP status and update PCP field at appointment as I am not sure if FLATWORK SUPERVISOR can be her PCP. Reason for Outreach Attribution: Unknown PCP Report Care Gaps due: Establish Care Appointment Patient Contacted: Unable or unnecessary to reach patient: PCP field updated Patient already scheduled Updated appointment notes Navigation Signature: Iraida Page MA December 17, 2024 7:32 [facility]02-07-2025 History of Present illness Narrative* Iraida Page MA - 12/17/2024 7:32 AM EST POPULATION HEALTH NAVIGATION OUTREACH Action/FYI - [employer] Unknown PCP Patient is already scheduled with Sahra Segura CNP to est care and appointment note states not toreschedule this appointment as it has been rescheduled already. I updated PCP team field and added to appointment note to review PCP status and update PCP field atappointment as I am not sure if RADHA can be her PCP. Reason for Outreach Attribution: Unknown PCP Report Care Gaps due: Establish Care Appointment Patient Contacted: Unable or unnecessary to reach patient: PCP field updated Patient already scheduled Updated appointment notes Navigation Signature: Iraida Page MA December 17, 2024 7:32 AM documented in this encounterGalion Community Hospital02-07-2025 NotePatient Outreach (NETNAV) ЮЛИЯ PRASAD ([id number]) 1955 F Date Time Provider Department 12/17/24 [...] appointment as I am not sure if FLATWORK SUPERVISOR can be her PCP. Reason for Outreach [...] 12/05/2017 Depression [F32.A] 05/15/20 (more content not included)...[facility]01-06-20[facility] Telephone encounter Note* Telephone Encounter - Christie Ramirez PA-C - 11/15/2024 8:17 AM EST Patient not seen in over 1 year [facility]01-06-2025 Miscellaneous Notes* Telephone Encounter - Christie Ramirez PA-C - 11/15/2024 8:17 AM EST Patient not seen in over 1 year * Telephone Encounter - Jenni Roy MA - 11/12/2024 3:34 PM EST Patient last seen in office 04/2023. documented in this encounterGalion [facility] Hospital01-03-2025 Telephone encounter Note * Telephone Encounter - Jenni Roy MA - 11/12/2024 3:34 PM EST Patient last seen in office 04/2023. [facility]11-01-2024 NoteHNO ID: [id number] Author: JUAREZ VELASCO MD Service: ? Author [...] week. Discard Pen After blood sugar diagnostic (PantechUCH VERIO TEST STRIPS) test strip Test blood [...] GI consult. She has seen ENT in [place] and may follow up there for neck tenderness. Add an OTC antihistamine such as claritin or zyrtec to help with allergy related head congestion. Patient has been attempting to get re-established with primary care but currently cannot get an appointment sooner than January. Juarez Velasco, [facility]11-01-2024 History of Present illness Narrative* Juarez Velasco [...] GI consult. She has seen ENT in [place] and may follow up there for neck tenderness. Add an OTC antihistamine such as claritin or zyrtec to help with allergy related head congestion. Patient has been attempting to get re-established with primary care but currently cannot get an appointment sooner than January. Juarez Velasco MD documented in this encounterGalion Community Hospital10-08-2024 Telephone encounter Note * Telephone Encounter - Beatrice Luna MA - 08/17/2024 5:[address] Petersen declined to accept her back in May when she left the practice. She was already advised this twice. Will leave in basket for nursing staff Beatrice Luna MA August 17, 2024 5:24 PM [facility]10-08-[facility] Miscellaneous Notes* Telephone Encounter - Beatrice [...] in network and wishes to re-establish with [place]'s Team. Please advise if this is an option as she is diabetic and needs to be seen sooner than January with Dr. Carranza. Gabbie Tidwell documented in this encounterGalion Community Hospital10-08-2024 Telephone encounter Note * Telephone Encounter - Gabbie Tidwell - 08/17/2024 4:38 PM EDT Patient was seen by [facility] until a few months ago. Patient left [facility] as she thought her insurance wasn't in network with [facility]. Patient's insurance is in network and wishes to re-establish with [facility] Team. Please advise if this is an option as she is diabetic and needs to be seen sooner than January with Dr. Carranza. Gabbie Tidwell [facility]10-08-2024 NoteHNO ID: [id number] Author: CRISTHIAN SMITH, DO Service: ? Author Type: Physician Type: Progress Notes Filed: 08/18/2024 16:20 Note Text: Hematologic problem(s): 1) IgG lambda MGUS. HPI: The patient is a 69-year-old female with a past medical history as outlined below. Establish with new PCP prior to referral here. Had lab work done through [facility] that showed an increase in serum [...] DX W/COLLJ SPEC WHEN PFRMD Done in [place] unable to obtain COLONOSCOPY FLX DX W/COLLJ [...] week. Discard Pen After blood sugar diagnostic (PantechUCH VERIO TEST STRIPS) test strip Test blood [...] by mouth twice daily. (more content not included)...[facility]10-08-[facility] History of Present illness Narrative* Cristhian Smith DO - 08/17/2024 4:10 PM EDT Hematologic problem(s): 1) IgG lambda MGUS. HPI: The patient is a 69-year-old female with a past medical history as outlined below. Establish with new PCP prior to referral here. Had lab work done through [facility] that showed an increase in serum [...] nodules PAD (peripheral artery disease) ([facility]) 03/10/2017 02/06/2022 PVR ank/jackson/toe bilat: RIGHT [...] DX W/COLLJ SPEC WHEN PFRMD Done in [place] unable to obtain COLONOSCOPY FLX DX W/COLLJ [...] Sclerae are anicteric bilaterally. LABS: Latest Ref [facility] 06/02/2024 WBC 3.70 - 11.00 k/uL 7.40 [...] Abs Lymph 1.00 - 4.00 k/uL 3.34 [place]% % 5.4 Abs [place] <0.87 k/uL 0.40 Eosin% % 1.5 Abs [...] 14.7 - 205.1 ng/mL 19.9 Latest Ref Rng 06/02/2024 Albumin 3.43 - 5.41 g/dL 4.78 [...] Review Reviewed by Malachi Byrne MD, Ph.D ([id number]) Protein, Total 6.3 - 8.0 g/dL 8.3 [...] (MPA) Reviewed by Malachi Byrne MD, Ph.D ([id number]) [place] Free, Serum 3.3 - 19.4 mg/L 39.2 [...] g/24hr 0.00 Staff Review (UEPG24) Reviewed by Ileana Marina M.D. Interpretation Comment [...] mL 3,200 Latest Ref Rng 06/07/2024 Result ([facility]) No M protein is identified. A poorly [...] gammopathy. Clinical correlation is necessary. Staff Review ([facility]) Reviewed by Ileana Marina M.D. ASSESSMENT/PLAN: (D47.2) [...] which included preparing to see the patient, [id number] patient care, completing clinical documentation, obtaining and/or reviewing separately obtained history, performing a medically appropriate examination, counseling and educating the pat ient/family/caregiver, and communicating results to the patient/family/caregiver. Cristhian Smith DO documented in this encounterGalion [facility]10-[facility] Telephone encounter Note * Telephone Encounter - Carolina Hankins RN - 08/10/2024 4:17 PM EDT Left detailed vm on identified vm letting patient know this day will not work for pcp. Advised I have cancelled the appt in Nov, and asked patient to call back, and speak with a nurse or pss, to schedule an est care appt. [facility]10-01-2024 Miscellaneous Notes* Telephone Encounter - Carolina Hankins RN - 08/10/2024 4:17 PM EDT Left detailed vm on identified vm letting patient know this day will not work for pcp. Advised I have cancelled the appt in Sep, and asked patient to call back, and [...] new patients scheduled. * Telephone Encounter - Carolina Hankins RN - 08/10/2024 11:40 AM EDT Patient was transferred to this nurse, after scheduling an appt with Ring Striker to est care, for Dec. Patient wants sooner appt to est care. Scheduled patient with Dr. Carranza on 09-21-24 at 7 am. Thiswas the only time this nurse could get. This appt, makes 2 appts to est care, on this day, for doctor. Please advise patient if this date/time is not ok [phone]. States she is diabetic, has issues with lungs, kidney and bladder, and needs a doctor to monitor these. Reports she transferred out of [facility] in Dec, and when attempted to transfer back to Dr. Petersen,was told he is no longer accepting new patients. documented in this encounterGalion [facility] Hospital10-01-2024 Telephone encounter Note * Telephone Encounter - Hemanth Carranza MD - 08/10/2024 12:58 PM EDT I already have 2 new patient appointments scheduled for this day. 9 am and 2:20pm. They will need to be scheduled for a day when I have less than 2 new patients scheduled. [facility] Work Phone: 1(140) 568-679310-01-2024 Telephone encounter Note* Telephone Encounter - Carolina Hankins RN - 08/10/2024 11:40 AM EDT Patient was transferred to this nurse, after scheduling an appt with Ring Striker to est care, for Dec. Patient wants sooner appt to est care. Scheduled patient with Dr. Carranza on 09-21-24 at 7 am. Thiswas the only time this nurse could get. This appt, makes 2 appts to est care, on this day, for doctor. Please advise patient if this date/time is not ok [phone]. States she is diabetic, has issues with lungs, kidney and bladder, and needs a doctor to monitor these. Reports she transferred out of [facility] in Dec, and when attempted to transfer back to Dr. Petersen,was told he is no longer accepting new patients. [facility]09-26-[facility]24 NoteHNO ID: [id number] Author: ORVILLE TAVARES APRN.FLATWORK SUPERVISOR Service: ? Author Type: Nurse Practitioner Type: Procedures Filed: 2024 13:50 Note Text: BEDSIDE PROCEDURE NOTE BONE MARROW BIOPSY Date/Start Time: 2024 12:52 PM Date/Stop Time: 2024 1:09 PM Performed by: Orville Tavraes APRN.RADHA Authorized by: Orville Tavares APRN.CNP Where was Patient When this Procedure was Performed [facility] Informed Consent Consent Obtained: Written [place] Protocol A moment to CARE was completed. [...] Biopsy Site: Right posterior sperior iliac crest Tycheontrol biopsy system was used. Using aseptic technique, [...] NAME: Юлия Prasad DATE: 2024 TIME: 1:47 [facility]09-26-2024 Procedure note* Orville Tavares APRN.CNP - 2024 1:47 PM EDTAssociated Order(s): BONE MARROW BIOPSY Post-Procedure Diagnose(s): Monoclonal gammopathy BEDSIDE PROCEDURE NOTE BONE MARROW BIOPSY Date/Start Time: 2024 12:52 PM Date/Stop Time: 2024 1:09 PM Performed by: Orville Tavares APRN.CNP Authorized by: Orville Tavares APRN.CNP Where was Patient When this Procedure was Performed [facility]ulatory Informed Consent Consent Obtained: Written [place] Protocol A moment to CARE was completed. [...] Юлия Prasad DATE: 2024 TIME: 1:47 PM [facility] Work Phone: 1(355) 317-229109-26-2024 Procedure note* Orville Tavares APRN.CNP - 2024 1:47 PM EDTAssociated Order(s): BONE MARROW BIOPSY Post-Procedure Diagnose(s): Monoclonal gammopathy BEDSIDE PROCEDURE NOTE BONE MARROW BIOPSY Date/Start Time: 2024 12:52 PM Date/Stop Time: 2024 1:09 PM Performed by: Orville Tavares APRN.RADHA Authorized by: Orville Tavares APRN.CNP Where was Patient When this Procedure was Performed [facility] Informed Consent Consent Obtained: Written [place] Protocol A moment to CARE was completed. [...] 2024 TIME: 1:47 PM documented in this encounterGalion Community Hospital09-26-2024 Nurse Note* Paola Yao MA - 2024 1:08 PM EDT Pt discharged to home with Neighbor after BMBX with dry sterile dressing in place. No drainage noted. Post-procedures care reviewed with patient. Pt to call with any complaints of redness, swelling, increased or unresolved pain, bleeding, chills, bruising, and/or fever. Pt. Verbalized understanding. Paola Yao MA [facility]09-26-2024 Nurse Note* Paola Yao MA - 2024 1:08 PM EDT Pt discharged to home with Neighbor after BMBX with dry sterile dressing in place. No drainage noted. Post-procedures care reviewed with patient. Pt to call with any complaints of redness, swelling, increased or unresolved pain, bleeding, chills, bruising, and/or fever. Pt. Verbalized understanding. Paola Yao MA documented in this encounterGalion Community Hospital09-23-2024 Telephone encounter Note * Telephone Encounter - Emily Tirado LPN - 08/02/2024 1:03 PM EDT Patient notified. Emily Tirado LPN [facility]09-23-2024 Miscellaneous Notes* Telephone Encounter - Emily [...] She believes it as Ativan. Patient uses [facility] in [place] for pharm. documented in this encounterGalion Community Hospital09-23-2024 Telephone encounter Note * Telephone Encounter [...] marrow biopsy. Authorizing Provider: CRISTHIAN SMITH DO [facility]09-23-2024 Telephone encounter Note* Telephone Encounter - Emily Tirado LPN - 08/02/2024 10:44 AM EDT Rx pended. Emily Tirado LPN [facility]09-23-[facility]24 Telephone encounter Note* Telephone Encounter - Rosie Tam - 08/02/2024 10:07 AM EDT Patient is scheduled for BMBX on 08/05. She states Dr Smith was going to prescribe a medication to keep her calm. She believes it as Ativan. Patient uses [facility] in [place] for pharm. [facility] Work Phone: 1(926) 717-236809-19-2024 History of Present illness Narrative* Beatrice Moore, RT(R) - 07/29/2024 1:00 PM EDT Radiology [...] PATIENT PRESENTS WITH AN IMPLANTABLE OR ATTACHED IT SERVICE CONTINUITY SUPERVISOR: No ALLERGIES: Reviewed and unchanged CONTRAST ALLERGY: [...] 2024 TIME: 1:07 PM documented in this encounterGalion Community Hospital09-19-2024 NoteHNO ID: [id number] Author: BEATRICE MOORE RT (R) Service: ? [...] PATIENT PRESENTS WITH AN IMPLANTABLE OR ATTACHED IT SERVICE CONTINUITY SUPERVISOR: No ALLERGIES: Reviewed and unchanged CONTRAST ALLERGY: [...] Prasad DATE: July 29, 2024 TIME: 1:07 [facility]08-29-2024 Telephone encounter Note* Telephone Encounter - Fanta Cline APRN.CNP - 07/08/2024 11:35 AM EDT I have sent 30 pills and patient should schedule follow up endoscopy if she is due. [facility]08-29-[facility]24 Miscellaneous Notes* Telephone Encounter - Fanta [...] 06, 2024 2:42 PM documented in this encounterGalion Community Hospital08-29-2024 Telephone encounter Note * Telephone Encounter [...] so long ago. Please call and advise. [facility]08-28-2024 Telephone encounter Note* Telephone Encounter - Danielle D eLeon LPN - 07/07/2024 4:01 PM EDT Left a message for pt to call the office and ask to speak to a nurse. When pt calls back ask pt why she is in need of Zofran. Sahra has denied this. Danielle De Leon LPN [facility]08-27-2024 Telephone encounter Note* Telephone Encounter - [...] Todd LPN July 06, 2024 2:42 PM [facility]08-27-2024 Telephone encounter Note* Telephone Encounter - Paola Kumar LPN - 07/06/2024 12:45 PM EDT Phoned patient went over results, notes from Sahra Moreno ROAD GRADER with understanding. [facility]08-27-2024 Miscellaneous Notes* Telephone Encounter - Paola Kumar LPN - 07/06/2024 12:45 PM EDT Phoned patient went over results, notes from Sahra Moreno RO[address] GRADER with understanding. * Telephone Encounter - Sahra Moreno APRN.CNP - 07/06/2024 11:55 AM EDT Please call patient and let her know there is no mammographic evidence of malignancy. A 1 year screening mammogram is recommended. Sahra Moreno APRN.CNP documented in this encounterGalion Community Hospital08-27-2024 Telephone encounter Note * Telephone Encounter - Sahra Moreno APRN.CNP - 07/06/2024 11:55 AM EDT Please call patient and let her know there is no mammographic evidence of malignancy. A 1 year screening mammogram is recommended. Sahra Moreno APRN.CNP [facility] Work Phone: 1(575) 407-895308-26-2024 Note* Letter - Coordinator, Mammography - 07/05/2024 12:16 PM EDT July 05, 2024 PID: [id number] Юлия Prasad [address] [place] [address] Dear Ms. Prasad, We are pleased to [...] report will be kept on file at [facility] as part of your permanent medical record and are available for your continuing care. Thank you for allowing us to help in meeting your health care needs. Sincerely, Dr. Tejeda Interpreting Radiologist [facility] (Normal over 40) [facility]08-26-2024 Miscellaneous Notes* Letter - Coordinator, Mammography - 07/05/2024 12:16 PM EDT July 05, 2024 PID: [id number] Юлия Prasad [address] [place] [address] Dear Ms. Prasad, We are pleased to [...] report will be kept on [facility] as part of your permanent medical record and are available for your continuing care. Thank you for allowing us to help in meeting your health care needs. Sincerely, Dr. Tejeda Interpreting Radiologist [facility] (Normal over 40) documented in this encounterGalion Community Hospital08-23-2024 History of Present illness Narrative* Aliyah [...] PATIENT PRESENTS WITH AN IMPLANTABLE OR ATTACHED IT SERVICE CONTINUITY SUPERVISOR: No RADIOLOGY DEPARTMENT: Mammography PERIPHERAL IV DATA: Not applicable SIGNED BY: Drea Mcduffie July 02, 2024 1:09 PM documented in this encounterGalion Community Hospital08-23-2024 NoteHNO ID: [id number] Author: ALIYAH MEDLEY Mammo Tech Service: ? Author Type: Buckle Attacher Type: Progress Notes Filed: 07/02/2024 13:10 Note [...] PATIENT PRESENTS WITH AN IMPLANTABLE OR ATTACHED IT SERVICE CONTINUITY SUPERVISOR: No RADIOLOGY DEPARTMENT: Mammography PERIPHERAL IV DATA: Not applicable SIGNED BY: Drea Mcduffie July 02, 2024 1:09 [facility]08-21-2024 NotePatient Outreach (INTMMN) CATRACHOЮЛИЯ Matt ([id number]) 1955 F Date Time Provider Department 06/30/24 [...] for screening mammogram for breast cancer [Z12.31] Order(s):[facility] SCREENING W MIGUEL [[id number]] Order #: [id number] FUTURE Prescriptions as of 07/05/2024 - metFORMIN [...] [C44.321] 06/24/2016 Mixed hyperl (more content not included)...[facility]08-19-2024 Telephone encounter Note* Telephone Encounter - Gabbie Tidwell - 06/28/2024 3:57 PM EDT Spoke with patient and scheduled. Gabbie Tidwell [facility]08-19-2024 Miscellaneous Notes* Telephone Encounter - Gabbie [...] office visit schedule sometimeafter 07/29/24 Aleja [facility] * Telephone Encounter - Cristhian Smith [...] scheduling purposes Monika Vila documented in this encounterGalion Community Hospital08-19-2024 Telephone encounter Note * Telephone Encounter - Leann Burton LPN - 06/28/2024 3:51 PM EDT Spoke with pt. Informed BMBX 1 week after MRI, then OV 1-2 weeks after Biopsy. Call transferred to PSS for scheduling. Leann Burton LPN [facility]08-19-2024 Telephone encounter Note* Telephone Encounter - [...] office visit schedule sometimeafter 07/29/24 Aleja [facility]08-16-2024 Telephone encounter Note* Telephone Encounter - Cristhian Smith DO - 06/25/2024 5:53 PM EDT Please pend orders for MRI cervical, thoracic and lumbar spine with and without contrast as well asMRI Ortho pelvis with and without contrast. [facility]08-16-2024 Telephone encounter Note* Telephone Encounter - Hemanth Carranza MD - 06/25/2024 8:05 AM EDT I did not see that she had gone outside of the practice. She has an appointment with Sahra to establish care in July. If she is not going to be establishing with me, then this would need to be cancelled. [facility] Work Phone: 1(693) 511-186708-16-2024 Miscellaneous Notes* Telephone Encounter - Hemanth Carranza MD - 06/25/2024 8:05 AM EDT I did not see that she had gone outside of the practice. She has an appointment with Sahra to establish care in July. If she is not going to be establishing with me, then this would need to be cancelled. * Telephone Encounter - Annmarie Sutton APRN.RADHA - 06/24/2024 5:02 PM EDT Got it. Thank you for letting me know. Probably would not be establishing with Dr. Carranza either. * Telephone Encounter - Beatrice Luna MA - 06/24/2024 4:[address] Petersen declined accepting her back as a patient. She transferred out of the practice. See the [employer] message 06/08/24. I am no allowed to re-establish her with Dr Petersen. She even signed a request of records and they were sent to [facility]. * Telephone Encounter - Hemanth [...] care. Jeremiah Galindo LPN documented in this encounterGalion Community Hospital08-15-2024 Telephone encounter Note * Telephone Encounter - Annmarie Sutton APRN.RADHA - 06/24/2024 5:02 PM EDT Got it. Thank you for letting me know. Probably would not be establishing with Dr. Carranza either. [facility] Work Phone: [phone]) [phone] Telephone encounter Note* Telephone Encounter - Beatrice Luna MA - 06/24/2024 4:[address] Petersen declined accepting her back as a patient. She transferred out of the practice. See the [employer] message 06/08/24. I am no allowed to re-establish her with Dr Petersen. She even signed a request of records and they were sent to [facility]. [facility]08-15-2024 Telephone encounter Note* Telephone Encounter - Hemanth Carranza MD - 06/24/2024 1:41 PM EDT I am confused by this message. It looks like she saw Sahra once for acute issue and has been seeingDr. Petersen and Maciej regularly. Did she requesting a new PCP at one point? [facility]08-15-[facility] History of Present illness Narrative* Rosie [...] PATIENT PRESENTS WITH AN IMPLANTABLE OR ATTACHED IT SERVICE CONTINUITY SUPERVISOR: No RADIOLOGY DEPARTMENT: General X-ray: Exam(s) Completed: Bone Survey PERIPHERAL IV DATA: Not applicable SIGNED BY: RT Tiara(R) June 24, 2024 12:54 PM documented in this encounterGalion Community Hospital08-15-2024 NoteHNO ID: [id number] Author: ROSIE WALSH RT(R) Service: ? Author [...] PATIENT PRESENTS WITH AN IMPLANTABLE OR ATTACHED IT SERVICE CONTINUITY SUPERVISOR: No RADIOLOGY DEPARTMENT: General X-ray: Exam(s) Completed: Bone Survey PERIPHERAL IV DATA: Not applicable SIGNED BY: RT Tiara(R) June 24, 2024 12:54 [facility]08-15-2024 Telephone encounter Note* Telephone Encounter - Monika Vila - 06/24/2024 10:44 AM EDT Check out comments: MRIs when able. Bone marrow biopsy about week after MRIs. CBC/Troponin/BNP day of biopsy. OV about 1-2 weeks after biopsy. Please file MRI orders for scheduling purposes Monika Vila [facility]08-15-2024 Instructions* Patient Instructions* Cristhian Smith DO - 06/24/2024 10:36 AM EDT Hold aspirin beginning 5 days prior to bone marrow biopsy. Can resume day after biopsy. documented in this encounterGalion Community Hospital08-15-2024 NoteHNO ID: [id number] Author: CRISTHIAN SMITH DO Service: ? Author Type: Physician Type: Progress Notes Filed: 06/24/2024 11:19 Note Text: Hematologic problem(s): 1) Possible MGUS. HPI: The patient is a 68-year-old female with a past medical history as outlined below. Establish with new PCP prior to referral here. Had lab work done through [facility] that showed an increase in serum [...] Lung nodules 03/10/2017: PAD (peripheral artery disease) ([facility]) Comment: 02/06/2022 PVR ank/jackson/toe bilat: RIGHT SIDE JITENDRA: 1.19; TBI: 0.84, WNL at rest LEFT SIDE: JITENDRA: 1.19; TBI: 0.96, WNL at rest 12/08/2017: Pulmonary HTN ([facility]) Comment: mild 06/24/2016: Squamous cell skin cancer, nasal tip 03/28/2017: Tobacco abuse PAST SURGICAL HISTORY 09/2004: ADDTL NECK SPINE FUSION 2001: CHOLECYSTECTOMY 1983: COLONOSCOPY 09/01/2012: COLONOSCOPY FLX DX W/COLLJ SPEC WHEN PFRMD No date: COLONOSCOPY FLX DX W/COLLJ SPEC WHEN PFRMD Comment: Done in [place] unable to obtain 11/17/2013: COLONOSCOPY FLX DX [...] week. Discard Pen After blood sugar diagnostic (PantechUCH VERIO TEST STRIPS) test strip Test blood [...] of breath. furosemide (LASI (more content not included)...[facility] 06-24-2024 History of Present illness Narrative* Cristhian Smith, - 06/24/2024 10:07 AM EDT Hematologic problem(s): 1) Possible MGUS. HPI: The patient is a 68-year-old female with a past medical history as outlined below. Establish with new PCP prior to referral here. Had lab work done through [facility] that showed an increase in serum [...] W/COLLJ SPEC WHEN PFRMD Comment: Done in [place] unable to obtain 11/17/2013: COLONOSCOPY FLX DX [...] Abs Lymph 1.00 - 4.00 k/uL 3.34 [place]% % 5.4 Abs [place] <0.87 k/uL 0.40 [place]% % 1.5 Abs [...] Review Reviewed by Malachi Byrne MD, Ph.D ([id number]) Protein, Total 6.3 - 8.0 g/dL 8.3 [...] (MPA) Reviewed by Malachi Byrne MD, Ph.D ([id number]) [place] Free, Serum 3.3 - 19.4 mg/L 39.2 [...] g/24hr 0.00 Staff Review (UEPG24) Reviewed by Ileana Marina M.D. Interpretation Comment [...] mL 3,200 Latest Ref Rng 06/07/2024 Result ([facility]) No M protein is identified. A poorly defined region of restricted mobility is presentthat may represent an M protein. ! Interpretation ([facility]) Poorly defined region of restricted mobility in [...] gammopathy. Clinical correlation is necessary. Staff Review ([facility]) Reviewed by Ileana Marina M.D. ASSESSMENT/PLAN: (D47.2) [...] which included preparing to see the patient, [id number] patient care, completing clinical documentation, obtaining and/or [...] 06/02 Leann Burton LPN documented in this encounterGalion Community Hospital08-15-2024 NoteHNO ID: [id number] Author: LEANN BURTON LPN Service: ? Author Type: LICENSED NURSE Type: Progress Notes Filed: 06/24/2024 11:19 Note Text: Est. Pt, discuss recent labs done 06/02 [facility] Tele[facility] encounter Note * Telephone Encounter - Alicia Tidwell RN - 06/21/2024 12:43 PM EDT Spoke to provider's office and received recommendation to review with Dr. Smith and if not willing to address it then would recommend ER or EC. Notified patient who verbalizes understanding. Alicia Tidwell RN [facility]08-12-2024 Miscellaneous Notes* Telephone Encounter - Alicia [...] up 06/24/2024. Recommend continuing to follow with Amparo. 06/02/[address] Smith Fatigued. Pain [...] iron. May require parenteral iron due to skilled nursing PPI use. -OV following above. Potential MRI an bone marrow biopsy pending above Please review and advise, Alicia Tidwell RN documented in this encounterGalion Community Hospital08-12-2024 Telephone encounter Note * Telephone Encounter [...] up 06/24/2024. Recommend continuing to follow with Amparo. 06/02/[address] Smith Fatigued. Pain [...] iron. May require parenteral iron due to skilled nursing PPI use. -OV following above. Potential MRI an bone marrow biopsy pending above Please review and advise, Alicia Tidwell RN [facility]07-30-2024 Telephone encounter Note* Telephone Encounter - Rakel Shore MA - 06/08/2024 9:35 AM EDT Pt notified of message below from Provider. Made her aware of Provider who is accepting pt's. Rakel Shore MA [facility]07-30-2024 Miscellaneous Notes* Telephone Encounter - Rakel Shore MA - 06/08/2024 9:35 AM EDT Pt notified of message below from Provider. Made her aware of Provider who is accepting pt's. Rakel Shore MA * Telephone Encounter - Clarice Petersen MD - 06/08/2024 9:29 AM EDT Yes, she actually has been seeing [facility] physicians and transferred her records out. * [...] Provider. Rakel Shore MA documented in this encounterGalion Community Hospital07-30-2024 Telephone encounter Note * Telephone Encounter - Clarice Petersen MD - 06/08/2024 9:29 AM EDT Yes, she actually has been seeing [facility] physicians and transferred her records out. [facility]07-30-2024 Telephone encounter Note* Telephone Encounter - Amanda Rose MA - 06/08/2024 9:24 AM EDT She last saw Maciej 6 months ago and saw you on 02/17/23. Is this technically re-establishing? Amanda Rose MA [facility]07-30-2024 Telephone encounter Note* Telephone Encounter - Clarice Petersen MD - 06/08/2024 9:23 AM EDT I think Dr. Carranza is currently accepting patients if she wants t re establish with the Clinic. [facility]07-30-2024 Telephone encounter Note* Telephone Encounter - Jeremiah Galindo LPN - 06/08/2024 9:07 AM EDT Duplicate request. See other [facility] message regarding re-establishing care. Jeremiah Galindo LPN [facility]07-30-2024 Telephone encounter Note* Telephone Encounter - Rakel Shore MA - 06/08/2024 8:48 AM EDT Routing to Dr. Petersen's Team to advise but believe Dr. Petersen's practice is closed. Pt left Maciej and went and re-established with an outside Provider. Rakel Shore MA [facility]07-29-2024 Telephone encounter Note* Telephone Encounter - Cristhian Smith DO - 06/07/2024 1:00 PM EDT Okay. Thanks. Just wanted to be sure it wasn't forgotten. Cristhian Smith DO [facility] Work Phone: 1([phone]) [phone] Miscellaneous Notes* Telephone Encounter - Cristhian Smith [...] OV. Cristhian Smith DO documented in this encounterGalion Community Hospital07-29-2024 Telephone encounter Note * Telephone Encounter - Leann Burton LPN - 06/07/2024 9:23 AM EDT Poke with pt. Given information concerning lab results, Started the urine collection this morning 06/07 Does plan on keeping F/U OV Leann Burotn LPN [facility]07-28-2024 Telephone encounter Note* Telephone Encounter - Cristhian Smith DO - 06/06/2024 3:47 PM EDT Can let her know labs so far do show anything worrisome. 24 hour urine collection in process? Keep OV. Cristhian Smith DO [facility]07-24-2024 NoteHNO ID: [id number] Author: CRISTHIAN SMITH DO Service: ? Author [...] WNL at rest Pulmonary HTN ([facility]) 12/08/2017 mild Squamous cell skin cancer, nasal tip 06/24/2016 Tobacco abuse 03/28/2017 PAST SURGICAL HISTORY Procedure Laterality Date ADDTL NECK SPINE FUSION 09/2004 CHOLECYSTECTOMY 2000 COLONOSCOPY 1982 COLONOSCOPY FLX DX W/COLLJ SPEC WHEN PFRMD 09/01/2012 COLONOSCOPY FLX DX W/COLLJ SPEC WHEN PFRMD Done in [place] unable to obtain COLONOSCOPY FLX DX W/COLLJ [...] mouth once daily.) Cholecal (more content not included)...[facility]07-24-2024 History of Present illness Narrative* Cristhian [...] DX W/COLLJ SPEC WHEN PFRMD Done in [place] unable to obtain COLONOSCOPY FLX DX W/COLLJ [...] No jaundice or rash. No petechiae. NEUROLOGIC: screening unit registered nurse II-XII are grossly intact. No focal motor [...] iron. May require parenteral iron due to skilled nursing PPI use. -OV following above. Potential MRI an bone marrow biopsy pending above. I spent a total of 45 minutes on the date of the service which included preparing to see the patient, [id number] patient care, completing clinical documentation, obtaining and/or reviewing separately obtained history, performing a medically appropriate examination, counseling and educating the pat ient/family/caregiver, ordering medications, tests, or procedures, communicating with other HCPs (not separately reported), and communicating results to the patient/family/caregiver. Cristhian Smith DO documented in this encounterGalion [facility] Hospital07-[facility]24 Telephone encounter Note * Telephone Encounter - Rosie Tma - 06/01/2024 10:22 AM EDT Scheduled with patient. She states she does not drive and will try to get transportation for tomorrow. She will call back to reschedule if unable. [facility] Work Phone: [phone]) 811-150907-23-2024 Miscellaneous Notes* Telephone Encounter - Rosie Tam - 06/01/2024 10:22 AM EDT Scheduled with patient. She states she does not drive and will try to get transportation for tomorrow. She will call back to reschedule if unable. * Telephone Encounter - Monika Vila - 06/01/2024 8:35 AM EDT Lvm for patient to call back. 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 documented in this encounterGalion Community Hospital06-12-2024 NoteHNO ID: [id number] Author: PELON WINCHESTER MD Service: ? Author [...] repeat fine-needle aspirations will need to be performed.[facility]06-03-2024 Instructions* Patient Instructions* Amanda Ruiz LPN [...] you have any questions or concerns @ [phone]. Please make an appointment to follow up in one week with your physician and thank you for choosing the [facility] [place]. Sincerely, Your General Surgery Care Team documented in this encounterGalion Community Hospital06-03-2024 History of Present illness Narrative* Pelon [...] tolerated the procedure well. documented in this encounterGalion Community Hospital06-03-2024 Nurse Note* Amanda Ruiz LPN - [...] Visit completed when applicable. Amanda Ruiz LPN [facility]06-03-2024 Nurse Note* Amanda Ruiz LPN - [...] applicable. Amanda Ruiz LPN documented in this encounterGalion Community Hospital04-15-2024 History of Present illness Narrative* Pelon Winchester MD - 02/23/2024 4:20 PM EDT HISTORY AND PHYSICAL Юлия Pulido Catracho 1955 REFERRING PHYSICIAN: Jake Raymond MD CHIEF COMPLAINT: Consult HPI: The patient is a 68 year old female with a complaint of a right thyroid nodule. This thyroid nodule was found on Ultrasound by [facility]. The patient denies pain, denies difficulty [...] DX W/COLLJ SPEC WHEN PFRMD Done in [place] unable to obtain COLONOSCOPY FLX DX W/COLLJ [...] entered by the nurse and reviewed by az Nursing Notes: Tamika Ya RN 02/23/2024 3:03 [...] Pelon Winchester III, MD documented in this encounterGalion [facility] Hospital04-15-2024 Nurse Note* Tamika Ya RN - [...] 12/24/2017 Tamika Ya RN documented in this encounterGalion Community Hospital04-05-2024 Miscellaneous Notes* Telephone Encounter - Kely Solano RN - 02/13/2024 3:10 PM EDT Let Giselle with [facility] know that Pt has switched PCPs, and is now with Jake Leigh. She states she will call them for refills. documented in this encounterGalion Community Hospital04-05-2024 Note. MICRO - Microbiology PROCEDURE: Culture [...] Locations *1: This test was performed at: [address], [address]- , [facility] ([place])02-11-2024 Note. MICRO - Microbiology PROCEDURE: Affirm Pathogens [...] Locations *1: This test was performed at: [address], [address]- , [facility] ([place])01-31-2024 History of Present illness Narrative* Azul Mata MA - 01/31/2024 9:22 AM EDT POPULATION HEALTH NAVIGATION OUTREACH Action/FYI Last wellness exam 03.27.2023 Verify PCP Mammogram due 03/25/2024 or after Reason for Outreach Care Gap/HCC or Scheduling Wellness Visits Care Gaps due: Medicare Annual Wellness Visit Breast Cancer Screening Colorectal Cancer Screening Patient Contacted: Unable or unnecessary to reach patient: Left message OrdrIthart message sent Navigation Signature: Azul Vega MA January 31, 2024 9:26 AM documented in this encounterGalion Community Hospital02-07-2024 Miscellaneous Notes* Telephone Encounter - Sirisha Man LPN - 12/17/2023 3:24 PM EST [facility]-09/29/23 Labs-09/29/23Sep-12/29/23 Sirisha Man LPN documented in this encounterGalion Community Hospital02-07-2024 Miscellaneous Notes* Telephone Encounter - Sirisha Man LPN - 12/17/2023 3:22 PM EST [facility] Labs-09/29/23Sep-12/29/23 Sirisha Man LPN documented in this encounterGalion Community Hospital02-05-2024 Miscellaneous Notes* Telephone Encounter - Olga Rosa - 12/15/2023 4:03 PM EST Patient is requesting to hold off on schedule CT Scan for lung cancer screening due to finances. She will notify office when she is ready to schedule. documented in this encounterGalion Community Hospital02-02-2024 Miscellaneous Notes* Telephone Encounter - Kelley Del Valle LPN - 12/12/2023 9:24 AM EST Images from the original note were not included. Prior authorization approved Payer: [facility] [phone] Approval Details Authorized from November 10, 2023 [...] to its destination. To be filled at: [facility] [address] [place] [address] [address] - [phone] Pharmacy notified and pt via my chart. * Telephone Encounter - Kelley Del Valle LPN - 12/11/2023 4:24 PM EST PA completed. * Telephone Encounter - Kelley Del Valle LPN - 12/11/2023 4:11 PM EST Electronic PA requested. * Telephone Encounter - Sade Garcia LPN - 12/11/2023 3:58 PM EST Patient sends Sonatype message that she now has new insurance and [employer] requires a prior authorization. Script is at [facility]. documented in this encounterGalion [facility] Hospital12-07-2023 Miscellaneous Notes* Telephone Encounter - Barbie Gonsalez Ma - 10/16/2023 1:40 PM EST Patient last visit with PCP 09/29/2023 Follow up appointment scheduled 03/29/24 Barbie Gonsalez Ma documented in this encounterGalion Community Hospital12-07-2023 Miscellaneous Notes* Telephone Encounter - Akosua [...] advise. Akosua Mistry LPN documented in this encounterGalion Community Hospital12-05-2023 History of Present illness Narrative* Beatrice [...] 2023 TIME: 1:06 PM documented in this encounterGalion Community Hospital12-05-2023 Instructions* Patient Instructions* Sherie Melgoza APRN.FLATWORK SUPERVISOR - 10/14/2023 10:17 AM EST SMOKING CESSATION [...] to quit. Smokefree.gov Web Address: www.smokefree.gov Phone: [place] [employer] Web Address: www.lung.org [address] [place] [address]. [place] , [place] Phone: Phone: [facility] Smoking Cessation Program [email or web address]/[email or web address].pdf CT Lung Screen Results The CT scan [...] to endocrinology. Others Lung Cancer Screening hotline: [phone] Lung Cancer Screening [phone] Billing Questions: or [email or web address] Specialist Providers: (Jackie Merritt CNP; Kailey Engle PA-C; Neyda Menjivar CNP; Patti Rodrigues CNP, Carina Loya CNP; Marcela Day CNP; Alondra Pimentel PA-C; Sherie Melgoza CNP; Norma Merrill CNP; Michelle Beard PA-C; Alysia Rossi CNP; Bruna Calvillo CNP; Kely Dove CNP): [phone] documented in this encounterGalion Community Hospital12-05-2023 History of Present illness Narrative* Sherie [...] pre-disease performance w/o restriction. Modified Medical Research [place] Dyspnea Scale (MMRC) I only get breathless [...] DX W/COLLJ SPEC WHEN PFRMD Done in [place] unable to obtain COLONOSCOPY FLX DX W/COLLJ [...] visualized the testing documented: 03/19/2022 LDCT at [facility] Prior Imaging: Last CT/CTA Chest/Lungs CT CHEST WO IVCON Exam End: 09/20/2019 2:43 PM (Final result) Narrative: * * *Final Report* * * DATE OF EXAM: Sep 20 2019 2:43PM [facility] 0541 - CT CHEST WO IVCON / [...] of the left kidney. Nonspecific periportal lymphadenopathy. Structural Iron Erector: TRI Transcribe Date/Time: Sep 21 2019 7:57A Dictated [...] Impression: IMPRESSION: No acute abnormality is identified. Structural Iron Erector: TRI Transcribe Date/Time: Sep 10 2023 2:08P Dictated by : DUY MONTALVO MD... Pulmonary Function Testing: SPIROMETRY WITH DILATOR IF OBSTRUCTED ([id number]) - [facility] on 02/28/[facility] [address] [place] [address] Test Date: 2022-02-28 Pat Name: SHANTEL PRASAD Department: Room: Gender: Female Buckle Attacher: : 1955 Requested By: Order Number: [id number] Reading MD: Barbie Ruiz M.D. Interpretive Statements SP-ATS/ERS acceptability and repeatability standards for spirometry met. IMPRESSION: Spirometry is normal. Minimal small airways obstruction. Electronically Signed On 02-28-2022 16:02:48 EDT by Barbie Ruiz M.D. Site: WO ID: [id number] Name: SHANTEL PRASAD Visit Date: 02/28/2022 Doctor: Buckle Attacher: Lata Dhillon Age: 66 Date of : [...] FEF75 (L/sec) 0.51 0.19 1.25 0.40 79 USG86-05 (L/sec) 1.96 0.96 3.33 1.43 73 PEF [...] Six year risk for lung cancer: 5.81% Https://Mesosphere/Cymro/result/male_5.8_yes_unknown http://www.[employer]/tiny/01sk4 [email or web address]://youtu.be/[email or web address] I have determined that the patient [...] of any other counseling during this visit. Shreie Melgoza APRN.CNP NPI #: October 14, 2023 9:59 AM documented in this encounterGalion Community Hospital11-21-2023 Miscellaneous Notes* Telephone Encounter - Alicia Tidwell RN - 09/30/2023 9:05 AM EST Patient called and notified of results and providers instructions on secure voicemail. Patient to call back for any questions. Alicia Tidwell RN * Telephone Encounter - Carolina Mirza PA-C - 09/30/2023 8:19 AM EST Please let her know I increased rosuvastatin to 20 mg, she can double 10mg to equal 20mg if she wants to use them up. Recheck lab 3 months. Telephone on 09/30/23 LIPID PANEL BASIC Thanks, Maciej Mirza PA-C documented in this encounterGalion Community Hospital11-20-2023 History of Present illness Narrative* Carolina Mirza PA-C - 09/29/2023 10:41 AM EST 68 year old female with c/o 6 month follow up Right upper arm pain that is a dull ache. Says it started when she got the flu shot July [address] brain: 09/11/2023 CT brain WO: RESULT: Examination Scorer (topogram) images: No additional findings. Post-operative change: [...] out. 09/10/2023 was reviewed by Sahra Podlogmarisa FLATWORK SUPERVISOR: occurred after vomiting while sitting on the toilet. No significant injuries. Has orthostatic sx if stands quickly. On going for years, saw Ironworker Wire Fence Erector Dr. Forman 09/21/2015 for same scenario as [...] kg (145 lb 3.2 oz) Pulmonary htn (hcc) 09/28/16 echocardiogram: EF = 66 5%; mild pulmonary hypertension. 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 Carolina Mirza PA-C documented in this encounterGalion Community Hospital11-01-2023 History of Present illness Narrative* Layla Barnes, RT(R) - 09/10/2023 1:50 PM EDT Radiology [...] IV DATA: Not applicable SIGNED BY: RT Jordon(R) September 10, 2023 1:32 PM documented in this encounterGalion Community Hospital11-01-2023 Instructions* Patient Instructions* Sahra Moreno APRN.CNP - 09/10/2023 1:21 PM EDT If you develop visual changes, increasing head or neck pain, feel confused, have unsteady walking or vomiting go to ER documented in this encounterGalion Community Hospital11-01-2023 History of Present illness Narrative* Sahra [...] 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 Depression Diabetes mellitus ([facility]) Diverticulitis Dysphagia Emphysema of lung ([facility]) 05/15/2015 Essential hypertension 08/07/2022 GI bleed 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 [...] which included preparing to see the patient, zddg-dj-zswm patient care, completing clinical documentation, obtaining and/or reviewing separately obtained history, performing a medically appropriate examination, counseling and educating the pat ient/family/caregiver, and ordering medications, tests, or procedures. documented in this encounterGalion [facility] Hospital11-01-2023 Miscellaneous Notes* Telephone Encounter - Gabbie [...] OTHER SYMPTOMS: Denies other symptoms. Protocols used: Myqrluab-WYIME-QD * Telephone Encounter - Tori Crump LPN [...] Ne. Tori Crump LPN documented in this encounterGalion Community Hospital09-29-2023 Miscellaneous Notes* Telephone Encounter - Jeremiah Galindo LPN - 08/08/2023 10:12 AM EDT Patient phones requesting refills as follows: Requested Prescriptions Pending Prescriptions Disp Refills montelukast (SINGULAIR) 10 mg tablet 90 tablet 1 Sig: Take 1 tablet by mouth daily at bedtime. [facility] 05/01/23 NOV 08/26/23 Please review and advise. Jeremiah Galindo LPN documented in this encounterGalion Community Hospital09-20-2023 Miscellaneous Notes* Telephone Encounter - Marly Pham RN - 07/30/2023 8:24 AM EDT Detailed message of information below left on pt's identified VM. Marly Pham RN * Telephone Encounter - Carolina Mirza PA-C - 07/29/2023 6:07 PM EDT Can stop omelsartan (benicar) and recheck NV BP 4 weeks Maciej Albert PA-C documented in this encounterGalion Community Hospital09-19-2023 Miscellaneous Notes* Telephone Encounter - Beatrice Luna Ma - 07/29/2023 6:04 PM EDT Pt notified and scheduled * Telephone Encounter - Carolina Mirza PA-C - 07/29/2023 5:46 PM EDT [...] 07/29/2023 3:21 PM EDT ----- Message from Carolina Mirza PA-C sent at 07/28/2023 5:00 PM EDT ----- I imagine she knows, but let her know stress test showed no ischemia. Maciej Albert PA-C documented in this encounterGalion Community Hospital09-18-2023 History of Present illness Narrative* Coty [...] Coty Campos RN Reversal agent used:none LOT [id number] EXP 02/01 IV SITE: IV palced by nuclear tecnologist POST EXAM PIV STATUS: Discontinued by Caseworker PATIENT DISCHARGED TO: Nuclear Medicine Department for post stress imaging A Diagnostic radioactive procedure has taken place, with no further precautions necessary other than routine body substance precautions. More information regarding radiation safety can be found usingthis link: [email or web address]/[email or web address]%20Protection%20-% 20Diagnostic%20Nuclear%20Medicine%20Procedures.pdf SIGNATURE: Coty Campos RN PATIENT NAME:Юлия Prasad DATE: 07/28/23 TIME: 12:14 PM documented in this encounterGalion Community Hospital09-18-2023 History of Present illness Narrative* Corina [...] POST EXAM PIV STATUS: Discontinued PROCEDURE TYPE: AK Stress: 12.3 mCi [id number] was administered IV for Rest Imaging at 08:20 by Corina De Souza. 33.8 mCi Uw27i-Rahwcxw was administered IV for Stress Imaging at 09:36 by Corina De Souza. ADMINISTRATION TIME: PATIENT DISCHARGED TO: Ambulatory patient, left AK department area. A Diagnostic radioactive procedure has taken place, with no further precautions necessary other than routine body substance precautions. More information regarding radiation safety can be found usingthis link: [email or web address]%20Protection%20-% 20Diagnostic%20Nuclear%20Medicine%20Procedures.pdf SIGNATURE: KAUR Best) PATIENT NAME: Юлия Prasad DATE: July 28, 2023 TIME: 10:00 AM PAGER/CONTACT #: documented in this encounterGalion Community Hospital07-17-2023 Miscellaneous Notes* Telephone Encounter - Vesna Barboza MA - 05/26/2023 2:38 PM EDT MC message sent. Vesna Barboza MA * Telephone Encounter - Clarice Petersen MD - 05/26/2023 12:32 PM EDT Hard to put it together from notes but I think they held her olmesartan? Lets resume it and have her follow up with me after stress test. documented in this encounterGalion Community Hospital07-10-2023 Miscellaneous Notes* Telephone Encounter - Akosua [...] advise. Akosua Mistry LPN documented in this encounterGalion Community Hospital07-10-2023 Miscellaneous Notes* Telephone Encounter - Sirisha Man LPN - 05/19/2023 12:59 PM EDT Patient phones requesting refills as follows: Requested Prescriptions Pending Prescriptions Disp Refills citalopram (CELEXA) 40 mg tablet 90 tablet 1 Sig: Take 1 tablet by mouth once daily. [facility]-05/01/23 Labs-05/01/23 NOV-09/29/23 Please review and advise. Sirisha Man LPN documented in this encounterGalion Community Hospital07-10-2023 Miscellaneous Notes* Telephone Encounter - Sirisha Man LPN - 05/19/2023 12:58 PM EDT Patient phones requesting refills as follows: Requested Prescriptions Pending Prescriptions Disp Refills metFORMIN (GLUCOPHAGE) 500 mg tablet 90 tablet 5 Sig: Take 1 tablet by mouth three times daily. [facility]-05/01/23 Labs-05/01/23 NOV-09/29/23 Please review and advise. Sirisha Man LPN documented in this encounterGalion Community Hospital06-22-2023 History of Present illness Narrative* Carolina Mirza PA-C - 05/01/2023 2:00 PM EDT [...] rest 04/02/2018 pharmacologic stress test nuclear imaging: [facility], Dr. Coy: Peak heart rate 93, [...] k/uL 4.21 (H) 4.45 (H) 4.22 (H) [place]% % 6.3 6.3 6.1 Abs [place] <0.87 k/uL 0.57 0.59 0.50 E[place]% % [...] DX W/COLLJ SPEC WHEN PFRMD Done in [place] unable to obtain COLONOSCOPY FLX DX W/COLLJ [...] labs. Carolina Mirza PA-C documented in this encounterGalion Community Hospital06-19-2023 History of Present illness Narrative* Carlos Dickson MD - 04/28/2023 3:00 PM EDTAssociated Order(s): Large Joint Arthro/Inj: R subacromial bursa Post-Procedure Diagnose(s): Calcific tendonitis of right shoulder; Shoulder impingement Carlos Dickson MD Department of Orthopaedics Orthopaedics [facility] [address] [facility] [address] Dept: [phone] Dept April 28, 2023 CHIEF COMPLAINT: Established [...] subacromial bursa Informed Consent Consent Obtained: Verbal [place] Protocol A moment to CARE was completed. [...] rotator cuff calcific tendinosis. No acute abnormality Structural Iron Erector: PSCB Transcribe Date/Time: Mar 28 2023 9:55P [...] DX W/COLLJ SPEC WHEN PFRMD Done in [place] unable to obtain COLONOSCOPY FLX DX W/COLLJ [...] anxiety) Carlos Dickson MD documented in this encounterGalion Community Hospital06-09-2023 Miscellaneous Notes* Telephone Encounter - Beatrice Jeremy Tovar - 04/18/2023 3:27 PM EDT Patient has [...] Take 1 tablet by mouth once daily. NOV 05/01/23 RX INSTRUCTIONS: Patient aware RX will be sent to pharmacy. No need to notify patient. Beatrice Luna Ma documented in this encounterGalion Community Hospital05-16-2023 History of Present illness Narrative* Jyoti Obrien RT(Francoise) - 03/25/2023 2:20 PM EDT Radiology Service [...] 25, 2023 2:17 PM documented in this encounterGalion Community Hospital05-12-2023 Miscellaneous Notes* Telephone Encounter - Silvia [...] 03/2023 Last refill; 02/2022 documented in this encounterGalion Community Hospital04-20-2023 History of Present illness Narrative* Lorin [...] 27, 2023 11:24 AM documented in this encounterGalion Community Hospital04-14-2023 Miscellaneous Notes* Telephone Encounter - Barbie [...] advise. Jeremiah Galindo LPN documented in this encounterGalion Community Hospital04-14-2023 Miscellaneous Notes* Telephone Encounter - Erica [...] be on safe side documented in this encounterGalion Community Hospital04-10-2023 History of Present illness Narrative* Clarice Petersen MD - 02/17/2023 1:52 PM EDT Patient presents with: Suture Removal: Right middle finger HPI: Patient presents today for office visit for ER follow up. HOSPITAL/ER FOLLOW UP: Reason for visit: laceration to right middle Which facility: [facility] Date of visit: 02/05/23 Diagnosis: laceration [...] for wheezing/shortness of breath. blood sugar diagnostic (PantechUCH VERIO TEST STRIPS) test strip Test blood [...] DX W/COLLJ SPEC WHEN PFRMD Done in [place] unable to obtain COLONOSCOPY FLX DX W/COLLJ [...] plan. Clarice Petersen MD documented in this encounterGalion Community Hospital03-29-[address] Cotton [facility] February 05, 2023 7:14pm Note Date/Time February 05, 2023 6:2 8pm [facility] Medical Records Department [address] [place] [address] Emergency Department Summary 02/05/23 MR#: [id number] Acct: [id number] Name: ЮЛИЯ PRASAD Rep #:[id number] : [...] Funtion Narrative Narrative: Patient is a 67-year-old hbvqu-vlyy-yusmsuwz woman who presents with laceration dorsal surface [...] your Primary Care Provider. Call [facility] ([phone]) or report to the closest Emergency Room. Call 911 if necessary. 02/05/231913 <Electronically signed by Satya Cotton MD> Cosigner Signature (if applicable): CC: Dr. Clarice Petersen MD ~ Signed [facility] Work Phone: 1(147) 284-728503-29-2023 Hospital Discharge instructions Additional Instructions Tube1. Keep digit clean and dry as possible for the next 48 to 72 hours. Apply bacitracin ointment 3 times a day for the next 5 to 7 days.[facility] Work Phone: 1(220) 786-438203-20-2023 Miscellaneous Notes* Telephone Encounter - Jeremiah Galindo [...] How is she feeling? documented in this encounterGalion Community Hospital03-17-2023 Miscellaneous Notes* Telephone Encounter - Jeremiah Galindo LPN - 01/24/2023 2:03 PM EDT Patient phones requesting refills as follows: Requested Prescriptions Pending Prescriptions Disp Refills Cholecalciferol, Vitamin D3, 25 mcg (1,000 unit) cap 90 capsule 3 Sig: Take 1 capsule by mouth once daily. ARIADNA 01/23/23 NOV 03/27/23 Please review and advise. Jeremiah Galindo LPN documented in this encounterGalion [facility]03-16-[facility]23 History of Present illness Narrative* Clarice [...] visit. Either the patient or their legal auto claim representative has been informed of the risks and benefits of -- and alternatives to -- treatment through a remote evaluation andconsents to proceed with the evaluation remotely. Has not felt well for a month. Started with some right chest wall, right rib cage tenderness and right arm pain Complains of vomiting and diarrhea. Had work in [facility] ER on the Work up negative. [...] for wheezing/shortness of breath. blood sugar diagnostic ([employer] VERIO TEST STRIPS) test strip Test blood [...] DX W/COLLJ SPEC WHEN PFRMD Done in [place] unable to obtain COLONOSCOPY FLX DX W/COLLJ [...] continues. Clarice Petersen MD documented in this encounterGalion Community Hospital03-16-2023 Miscellaneous Notes* Telephone Encounter - Danielle Chavez Moises ALLISON - 01/23/2023 11:29 AM EDT Pt calls [...] Danielle De Leon LPN documented in this encounterGalion Community Hospital02-23-2023 Miscellaneous Notes* Telephone Encounter - Rakel Shore Ma - 01/02/2023 4:51 PM EST See pt message. Looks like you said labs look good. Rakel Shore Ma documented in this encounterGalion Community Hospital02-16-2023 Instructions* Patient Instructions* Carolina Mirza PA-C - 12/26/2022 12:05 PM [...] can improve orthostatic intolerance. documented in this encounterGalion Community Hospital02-16-2023 History of Present illness Narrative* Carolina Mirza PA-C - 12/26/2022 10:00 AM EST [...] hypertension (primary encounter diagnosis) Svt (supraventricular tachycardia) ([facility]) Pad (peripheral artery disease) ([facility]) Mixed hyperlipidemia Cardiovascular interval hx: None Current [...] 1.00 - 4.00 k/uL 2.92 3.17 3.77 [place]% % 5.8 5.1 5.0 Abs [place] <0.87 k/uL 0.38 0.43 0.41 Eosin% % [...] (hcc) Asthma with copd (hcc) Tobacco abuse Custodial Officer: Dr.Elizabeth Ruiz, last appointment was in April [...] eye exam: Goes annually, next appointment with interventional neuroradiologist in 2022. Last foot exam: About a [...] cancer, nasal tip No new lesions. Last wet room supervisor appointment was about 2019. Lumbar degenerative disc [...] DX W/COLLJ SPEC WHEN PFRMD Done in [place] unable to obtain COLONOSCOPY FLX DX W/COLLJ [...] Each 1 Each TOPICAL PRN Renata Sorensen APRN.FLATWORK SUPERVISOR 1 Each at 04/16/21 1357 HIV SCREENING [...] TABLET 2. SVT (supraventricular tachycardia) ([facility]) - ICD9: 427.89, ICD10: I47.1 - No new symptoms - Suspect orthostatic intolerance: se d/c instructions. Instructed to push fluids with some extra salt, use compression stockings, rise more slowly. 3. PAD (peripheral artery disease) ([facility]) - ICD9: 443.9, ICD10: I73.9 - No current symptoms - Continue current medications 4. Chronic obstructive pulmonary disease, unspecified COPD type ([facility]) - ICD9: 496, ICD10: J44.9 - No new changes - Continue current medications 5. Pulmonary HTN ([facility]) - ICD9: 416.8, ICD10: I27.20 - Stable 6. Asthma with COPD ([facility]) - ICD9: 493.20, ICD10: J44.9 - [...] long-term current use of insulin ([facility]) - ICD9: 250.60, 357.2, ICD10: E11.40 - [...] topics. Carolina Mirza PA-C documented in this encounterGalion Community Hospital01-13-2023 Miscellaneous Notes* Telephone Encounter - Sade Garcia LPN - 11/22/2022 5:11 PM EST Scheduled 12/13/22 documented in this encounterGalion Community Hospital12-16-2022 Miscellaneous Notes* Telephone Encounter - Jeremiah [...] advise. Jeremiah Galindo LPN documented in this encounterGalion Community Hospital09-29-2022 Nurse Note* Beatrice Luna Ma - 08/08/2022 1:24 PM EDT EVENT MONITOR DISPOSABLE PATCH INSTRUCTIONS [facility]: [id number] Skin prepped and cleansed with alcohol Patch secured to prepped area Monitor Activated Serial #: [id number] Patient Instructed: Prescribed order timeframe Bathing guidelines Usage of event button and diary documentation Return of monitor at the end of prescribed order Call with problems [phone] or [phone]. [phone] Patient expresses a good understanding of instructions Beatrice Luna Ma documented in this encounterGalion Community Hospital09-29-2022 Instructions* Patient Instructions* Carolina Mirza PA-C - 08/08/2022 11:57 AM EDT HEALTH MAINTENANCE: Your Body mass index is 27.96 kg/m . (Target BMI: 19-25) Regular aerobic exercise, low fat diet, and periodic exams are recommended Living Will & Medical Power of Supply Controller recommended Periodic Pap smear per risk profile. [...] your usual activities immediately. documented in this encounterGalion Community Hospital09-29-2022 History of Present illness Narrative* Carolina Mirza PA-C - 08/08/2022 11:20 AM EDT [...] DX W/COLLJ SPEC WHEN PFRMD Done in [place] unable to obtain COLONOSCOPY FLX DX W/COLLJ [...] and concerns from family or care takers. 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 Interval history: Current medications: Advair 250-50 [...] are pulsing. Dizziness: as above always off-balance. [place] into doors, bueno. Notes vertigo if extends [...] above Last EGD and/or colonoscopy: 02/18/2022 EGD [facility] small hiatal hernia without gross reflux [...] pulmonary disease, unspecified COPD type ([facility]) - ICD9: 496, ICD10: J44.9 (primary diagnosis) 2. Asthma with COPD ([facility]) - ICD9: 493.20, ICD10: J44.9 Progressive SOB but little exercise. PFT WNL. 3. Pulmonary HTN ([facility]) - ICD9: 416.8, ICD10: I27.20 Mild 4. [...] 7. PAD (peripheral artery disease) ([facility]) - ICD9: 443.9, ICD10: I73.9 No [...] MG/5 ML INTRAVENOUS SYRINGE - INSERT IV ([place] - IV DISCONTINUE 25. SVT (supraventricular tachycardia) [...] history context and comparison. documented in this encounterGalion Community Hospital08-26-2022 Miscellaneous Notes* Telephone Encounter - Beatrice Luna Ma - 07/05/2022 3:06 PM EDT ARIADNA 06/12/22 NOV 12/13/22 documented in this encounterGalion Community Hospital08-03-2022 History of Present illness Narrative* Clarice [...] trapped occasionally in her vagina. Suggested seeing disc jockey if an issue. Component Latest Ref Rng [...] for wheezing/shortness of breath. blood sugar diagnostic ([employer] VERIO TEST STRIPS) test strip Test blood [...] DX W/COLLJ SPEC WHEN PFRMD Done in [place] unable to obtain COLONOSCOPY FLX DX W/COLLJ [...] long-term current use of insulin ([facility]) - ICD9: 250.60, 357.2, ICD10: E11.40 [...] pulmonary disease, unspecified COPD type ([facility]) - ICD9: 496, ICD10: J44.9 - per pulmonary 5. Squamous cell skin cancer, nasal tip - ICD9: 173.32, ICD10: C44.321 - per derm. 6. Severe episode of recurrent major depressive disorder, without psychotic features ([facility]) - ICD9: 296.33, ICD10: F33.2 - doing well. 7. Screening for HIV (human immunodeficiency virus) - ICD9: V73.89, ICD10: Z11.4 - HIV 1 2 COMBO(AG/AB),WITH REFLEX TO DIFFERENTIATION Clarice KELLEYO in six months and prn. documented in this encounterGalion Community Hospital07-25-2022 Miscellaneous Notes* Telephone Encounter - Paola [...] needs diagnosis. Please advise documented in this encounterGalion Community Hospital07-15-2022 History of Present illness Narrative* Clarice [...] DX W/COLLJ SPEC WHEN PFRMD Done in [place] unable to obtain COLONOSCOPY FLX DX W/COLLJ [...] MG TABLET Clarice Petersen documented in this encounterGalion Community Hospital07-15-2022 Nurse Note* Sade Garcia LPN - 05/24/2022 4:46 PM EDT Patient complains of: left arm shoulder pain. Duration: 5 days Location:back of shoulder down arm in armpit Aggravating factors:lifting arm is more painful Things that improve symptoms :has used Aleve some Denies numbness tingling Recalls no injury documented in this encounterGalion Community Hospital06-24-2022 Miscellaneous Notes* Telephone Encounter - Sue [...] you. Sue Wong LPN documented in this encounterGalion Community Hospital06-24-2022 Miscellaneous Notes* Telephone Encounter - Aniyah Grubbs LPN - 05/03/2022 1:53 PM EDT ariadna--03/12/22 Next-- 06/12/22 Last refills- Citalopram 02/22/2020 30 with 3 refills Metformin 10/16/21 90 with 5 refills odansetron 11/05/21 30 with 5 refills Furosemide 11/05/21 30 with 5 refills Rosuvastatin 11/05/21 30 with 5 refills pantoprazole 12/07/21 30 with 5 refills Last labs-- 03/12/22 documented in this encounterGalion Community Hospital05-05-2022 Nurse Note* Lyly Velarde RN - 03/14/2022 8:48 AM EDT Patient ride called and on way * Lyly Velarde RN - 03/14/2022 8:35 AM EDT Patient in bed, will continue to monitor, safety maintained, call light within reach. RR even and unlabored, no complaints, all needs met at this time. documented in this encounterGalion Community Hospital05-05-2022 Miscellaneous Notes* Operative Report - Fran Salcido MD - 03/14/2022 8:10 AM EDT OPERATIVE/PROCEDURE REPORT LOG ID: [id number] Surgery/Procedure Date: 03/14/2022 Incision/Procedure Start Time: 8:24 AM Incision Close/Procedure End Time: 8:28 AM Surgeon(s)/Proceduralist(s) and Director Of Undergraduate Admissions(s): Fran Salcido MD - Proceduralist No Additional [...] 14, 2022 TIME: 8:39 AM PAGER/CONTACT #: [phone] documented in this encounterGalion Community Hospital05-05-2022 History of Present illness Narrative* LAZARO Mason - 03/14/2022 8:00 AM EDT H&P done on 03/12/[address] Petersen. documented in this encounterGalion Community Hospital05-04-2022 Miscellaneous Notes* Telephone Encounter - Barbie Karthikeyan - 03/13/2022 2:03 PM EDT Please put in a new mammogram order . She is scheduled for 04/01/22. She came in to early and the order was released. Thank you, Barbie documented in this encounterGalion Community Hospital05-04-2022 History of Present illness Narrative* RT [...] 13, 2022 1:50 PM documented in this encounterGalion Community Hospital05-03-2022 History of Present illness Narrative* Clarice [...] been listed as having pad by cardiology. [place] her pulses may be reduced but not [...] Abs Lymph 1.00 - 4.00 k/uL 3.77 [place]% % 5.0 Abs [place] <0.87 k/uL 0.41 Eosin% % 0.7 Abs [...] for wheezing/shortness of breath. blood sugar diagnostic ([employer] VERIO TEST STRIPS) test strip Test blood [...] DX W/COLLJ SPEC WHEN PFRMD Done in [place] unable to obtain COLONOSCOPY FLX DX W/COLLJ [...] HISTORY OF 10/13/2017 Excision nasal mass, Dr uJarez Harris REMOVE TONSIL AND ADENOI UNDER AGE [...] EDUARDO SCREENING Clarice Petersen documented in this encounterGalion Community Hospital04-27-2022 Miscellaneous Notes* Telephone Encounter - Paola Stevensongabriel ALLISON - 03/06/2022 3:01 PM EDT [facility] calling to question Benicar rx, one [...] advise. Jeremiah Galindo LPN documented in this encounterGalion Community Hospital04-21-2022 Instructions* Patient Instructions* Barbie Ruiz MD - 02/28/2022 11:18 AM EDT Low dose chest CT for cancer screening to be done at [facility] documented in this encounterGalion Community Hospital04-21-2022 History of Present illness Narrative* Barbie Ruiz MD - 02/28/2022 11:00 AM EDT Images from the original note were not included. . [facility] [place] Note Patient name: Shantel Prasad PCP: Clarice [...] Abs Lymph 1.00 - 4.00 k/uL 3.77 [place]% % 5.0 Abs [place] <0.87 k/uL 0.41 Eosin% % 0.7 Abs [...] No Pets: None. 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 Cigarette smoker -Current one half a pack a day, former 1 pack a day smoker for over 30 years -No obvious adverse sequelae -Smoking cessation recommended 4. GERD -GERD not controlled despite H2 sharif and proton pump inhibitor. This could be contributing to her persistent asthma symptoms -Recommend GI evaluation Barbie Ruiz MD [facility] [place] documented in this encounterGalion Community Hospital04-21-2022 Nurse Note* Akosua Mistry LPN - 02/28/2022 10:28 AM EDT Intake information documented in the prior visit with Lata Dhillon RRT, RPFT today. documented in this encounterGalion Community Hospital04-21-2022 Procedure note* Ltaa Dhillon RRT - 02/28/2022 10:27 AM EDT [...] 2022 TIME: 10:27 AM documented in this encounterGalion Community Hospital04-21-2022 History of Present illness Narrative* Lata Dhillon RRT - 02/28/2022 10:14 AM EDT PULM FUNCTION SMARTBLOCK: Provider: Clarice Petersen MD Assisting Tech: Lata Dhillon RRT Spirometry: 1 Exhaled Nitric Oxide: 1 System: [id number] documented in this encounterGalion Community Hospital04-05-2022 History of Present illness Narrative* Mason [...] 12, 2022 2:33 PM documented in this encounterGalion Community Hospital03-30-2022 History of Present illness Narrative* Evelia [...] 06, 2022 12:31 PM documented in this encounterGalion Community Hospital03-29-2022 Miscellaneous Notes* Telephone Encounter - Jeremiah Galindo LPN - 02/05/2022 11:46 AM EDT Patient phones requesting refills as follows: Pending Prescriptions Disp Refills CHOLECALCIFEROL (VITAMIN D3) 25 MCG (1,000 UNIT) CAPSULE 90 capsule 3 Sig: Take 1 capsule by mouth once daily. KEVAN: No ARIADNA 01/24/22 NOV 03/12/22 Please review and advise. Jeremiah Galindo LPN documented in this encounterGalion Community Hospital03-28-2022 Miscellaneous Notes* Telephone Encounter - Theresa [...] bp in two weeks documented in this encounterGalion Community Hospital11-10-2021 History of Present illness Narrative* Spencer [...] 19, 2021 5:15 PM documented in this encounterGalion Community Hospital06-11-2019 History of Past illness Narrative* Problem Noted Date Resolved Date Numbness and tingling of both lower extremities 04/20/2019 03/26/2021 Paresthesia 04/20/2019 03/26/2021 Controlled type 2 diabetes m ellitus without complication, without long-term current use of insulin 03/28/2017 11/28/2017 Family history of ischemic heart disease 016 12/05/2017 BPPV (benign paroxysmal positional vertigo) 06/201612/05/2017 Postconcussion syndrome 10/30/2015 01/25/20 Memory loss 10/30/2015 01/24/2022 Pill dysphagia 05/17/2015 [...] of this encounter (statuses as of 02/04/2022) [facility] Narrative* Problem [...] of this encounter (statuses as of 02/04/2022) [facility] Narrative* Problem [...] of this encounter (statuses as of 02/05/2022) [facility] Narrative* Problem [...] of this encounter (statuses as of 02/07/2022) [facility] Narrative* Problem [...] of this encounter (statuses as of 02/12/2022) [facility] Narrative* Problem [...] of this encounter (statuses as of 02/28/2022) [facility] Narrative* Problem [...] of this encounter (statuses as of 02/28/2022) [facility]arrative* Problem [...] of this encounter (statuses as of 03/06/2022) [facility]arrative* Problem [...] of this encounter (statuses as of 03/12/2022) [facility] Narrative* Problem [...] of this encounter (statuses as of 03/13/2022) [facility]ative* Problem [...] of this encounter (statuses as of 03/14/2022) [facility]arrative* Problem [...] of this encounter (statuses as of 03/15/2022) [facility]* Problem [...] of this encounter (statuses as of 03/19/2022) [facility]ative* Problem [...] of this encounter (statuses as of 05/03/2022) [facility]* Problem [...] of this encounter (statuses as of 05/03/2022) [facility]* Problem [...] of this encounter (statuses as of 05/05/2022) [facility]* Problem [...] of this encounter (statuses as of 05/25/2022) [facility]* Problem [...] of this encounter (statuses as of 06/12/2022) [facility]* Problem [...] of this encounter (statuses as of 07/05/2022) [facility]* Problem [...] of this encounter (statuses as of 08/09/2022) [facility]* Problem [...] of this encounter (statuses as of 08/09/2022) [facility]* Problem [...] of this encounter (statuses as of 09/11/2022) [facility]* Problem [...] of this encounter (statuses as of 10/25/2022) [facility]* Problem [...] of this encounter (statuses as of 11/22/2022) [facility]* Problem [...] of this encounter (statuses as of 12/26/2022) [facility]* Problem [...] of this encounter (statuses as of 01/03/2023) [facility] Problem [...] of this encounter (statuses as of 01/23/2023) [facility]* Problem [...] of this encounter (statuses as of 01/24/2023) [facility] Problem [...] of this encounter (statuses as of 01/24/2023) [facility]* Problem [...] of this encounter (statuses as of 01/25/2023) [facility] Problem [...] of this encounter (statuses as of 01/27/2023) [facility]* Problem [...] of this encounter (statuses as of 02/18/2023) [facility]* Problem [...] of this encounter (statuses as of 02/21/2023) [facility] Problem [...] of this encounter (statuses as of 02/21/2023) [facility] Problem [...] of this encounter (statuses as of 03/21/2023) [facility] Problem [...] of this encounter (statuses as of 04/19/2023) [facility]* Problem [...] of this encounter (statuses as of 04/29/2023) [facility]* Problem [...] 013 12/05/2017 Dizziness and giddiness 08/24/2012 12/05/19 Hyperlipidemia 03/10/2017 Diverticulitis 11/28/2017 Diabetes mellitus 07/19/2015 documented as of this encounter (statuses as of 05/02/2023) [facility]* Problem [...] of this encounter (statuses as of 05/19/2023) [facility] Problem [...] of this encounter (statuses as of 05/19/2023) [facility] Problem [...] of this encounter (statuses as of 05/20/2023) [facility] Problem [...] of this encounter (statuses as of 05/27/2023) [facility] Problem [...] of this encounter (statuses as of 06/25/2023) [facility] Problem [...] of this encounter (statuses as of 07/22/2023) [facility] Problem [...] of this encounter (statuses as of 07/28/2023) [facility] Problem [...] of this encounter (statuses as of 07/30/2023) [facility] Problem [...] of this encounter (statuses as of 08/08/2023) [facility] Problem [...] of this encounter (statuses as of 09/10/2023) [facility] Problem [...] of this encounter (statuses as of 09/11/2023) [facility] Problem [...] of this encounter (statuses as of 09/12/2023) [facility] Problem [...] of this encounter (statuses as of 09/12/2023) [facility] Problem [...] of this encounter (statuses as of 09/12/2023) [facility] Problem [...] of this encounter (statuses as of 09/12/2023) [facility] Problem [...] of this encounter (statuses as of 09/29/2023) [facility] Problem [...] of this encounter (statuses as of 09/30/2023) [facility] Problem [...] of this encounter (statuses as of 10/15/2023) [facility] Problem [...] of this encounter (statuses as of 10/15/2023) [facility] Problem [...] of this encounter (statuses as of 10/16/2023) [facility] Problem [...] of this encounter (statuses as of 10/17/2023) [facility] Problem [...] of this encounter (statuses as of 12/12/2023) [facility] Problem [...] of this encounter (statuses as of 12/12/2023) [facility] Problem [...] TBI: 0.84, WNL at rest LEFT SIDE: JITENRDA: 1.19; TBI: 0.96, WNL at rest Family [...] of this encounter (statuses as of 12/16/2023) [facility]* Problem [...] of this encounter (statuses as of 12/18/2023) [facility] Problem [...] of this encounter (statuses as of 12/18/2023) [facility] Problem [...] of this encounter (statuses as of 01/31/2024) [facility] Problem [...] of this encounter (statuses as of 02/13/2024) [facility] History of Past illness Narrative* Problem [...] of this encounter (statuses as of 02/24/2024) [facility] No data available for this section [facility] Evaluation note* Diagnosis Hyperkalemia- Primary Hyperpotassemia Essential hypertension Unspecified essential hypertension [facility] Diagnosis Vitamin D deficiency Unspecified vitamin D deficiency documented in this encounter [facility] note* Diagnosis Renal cyst Unspecified congenital cystic kidney disease documented in this encounter [facility] note* Diagnosis Type 2 diabetes mellitus without retinopathy (HCC)- Primary Type II or unspecified type diabetes mellitus without mention of complication, not stated as uncontrolled Type 2 diabetes mellitus with peripheral neuropathy (HCC) Combined form of age-related cataract, 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 Crystalline deposits in vitreous Hypertensive retinopathy, bilateral Lesion of right lower eyelid documented in this encounter [facility] note* Diagnosis Asthma, unspecified asthma severity, unspecified whether complicated, unspecified whether persistent documented in this encounter [facility] note* Diagnosis Asthma, unspecified asthma severity, unspecified whether complicated, unspecified whether persistent documented in this encounter [facility] note* Diagnosis Mild persistent asthma without complication- Primary Unspecified asthma Lung nodules Other nonspecific abnormal finding of lung field Cigarette smoker Tobacco use disorder Gastroesophageal reflux disease, unspecified whether esophagitis present documented in this encounter [facility] note* Diagnosis Essential hypertension Unspecified essential hypertension documented in this encounter [facility] note* Diagnosis Type 2 diabetes mellitus with diabetic neuropathy, without long-term current use of insulin (HCC)- Primary Mixed hyperlipidemia Pulmonary HTN (HCC) Other chronic pulmonary heart diseases Hyperkalemia Hyperpotassemia Screening breast examination Breast screening, unspecified documented in this encounter [facility] note* Diagnosis Screening breast examination- Primary Breast screening, unspecified documented in this encounter [facility] note* Diagnosis Screening breast examination Breast screening, unspecified documented in this encounter [facility] note* Diagnosis Gastroesophageal reflux disease without esophagitis Esophageal reflux documented in this encounter [facility] noteNo assessment information availableWFort [facility] Work Phone: Evaluation note* Diagnosis Recurrent major depression in partial remission (HCC) Major depressive disorder, recurrent episode, in partial or unspecified remission Controlled type 2 diabetes mellitus without complication, without long-term current use of insulin (HCC) Chronic antral gastritis Atrophic gastritis without mention of hemorrhage Gastroesophageal reflux disease without esophagitis Esophageal reflux documented in this encounter [facility] note* Diagnosis Asthma with COPD (HCC) Chronic obstructive asthma, unspecified documented in this encounter [facility] note* Diagnosis Acute pain of left shoulder- Primary Recurrent major depression in partial remission (HCC) Major depressive disorder, recurrent episode, in partial or unspecified remission [facility] encounter [facility]* Diagnosis Type 2 diabetes mellitus [...] specified viral diseases [facility] this [facility]* Diagnosis Asthma with COPD (HCC) Chronic obstructive asthma, unspecified [facility]* Diagnosis Acute pain of right shoulder- Primary documented in this encounter [facility] note* Diagnosis Chronic obstructive pulmonary disease, unspecified [...] unspecified type SVT (supraventricular tachycardia) ([facility]) Other specified cardiac dysrhythmias Palpitations Medicare annual wellness visit, initial Routine general medical examination at a health care facility documented [facility] this encounter [facility]* Diagnosis Chronic antral gastritis Atrophic gastritis without mention of hemorrhage Gastroesophageal reflux disease without esophagitis Esophageal reflux documented in this encounter [facility] note* Diagnosis Controlled type 2 diabetes mellitus without complication, without long-term current use of insulin (HCC) [facility] Diagnosis Essential hypertension- Primary Unspecified essential [...] lumbosacral intervertebral disc [facility] Diagnosis Epigastric pain- Primary Abdominal pain, epigastric Major depressive disorder, recurrent severe without psychotic features ([facility]) Major depressive disorder, recurrent episode, severe, without mention of psychotic behavior Type 2 diabetes mellitus with diabetic neuropathy, without long-term current use of insulin (HCC) Chronic obstructive pulmonary disease, unspecified COPD type (HCC) Nausea Nausea alone Diarrhea, unspecified type [facility]* Diagnosis Vitamin D deficiency Unspecified vitamin D deficiency [facility]* Diagnosis Elevated blood protein- Primary Other disorders of plasma protein metabolism Elevated lipase Other nonspecific abnormal serum enzyme levels Elevated lymphocytes Lymphocytosis (symptomatic) [facility]* Diagnosis Hypercalcemia- Primary Elevated lipase Other nonspecific abnormal serum enzyme levels [facility]* Diagnosis Laceration of right middle finger without foreign body without damage to nail, subsequent encounter- Primary [facility] Diagnosis Elevated lipase- Primary Other nonspecific abnormal serum enzyme levels [facility]* Diagnosis Chronic antral gastritis Atrophic gastritis without mention of hemorrhage Gastroesophageal reflux disease without esophagitis Esophageal reflux [facility]* Diagnosis Shoulder impingement- Primary Other affections of shoulder region, not elsewhere classified Calcific tendonitis of right shoulder Sternoclavicular joint pain, right [facility]* Diagnosis Essential hypertension- Primary Unspecified essential hypertension [facility]* Diagnosis Controlled type 2 diabetes mellitus without complication, without long-term current use of insulin (HCC) [facility] Diagnosis Essential hypertension Unspecified essential hypertension [facility]* Diagnosis Screening for ischemic heart disease- Primary [facility]* Diagnosis Asthma with COPD Chronic obstructive asthma, unspecified [facility]* Diagnosis Syncope and collapse- Primary Neck pain Cervicalgia Rib pain Chest pain, unspecified [facility]* Diagnosis Encounter for screening for cardiovascular disorders Screening for other and unspecified cardiovascular conditions Chest pain, unspecified type [facility]* Diagnosis Elevated lipase Other nonspecific abnormal serum enzyme levels [facility]* Diagnosis Screening breast examination Breast screening, unspecified [facility]* Diagnosis Syncope and collapse- Primary Essential [...] of insulin (HCC) [facility]* Diagnosis Mixed hyperlipidemia- Primary Hypertriglyceridemia Pure hyperglyceridemia [facility]* Diagnosis Encounter for screening for lung cancer- Primary Tobacco use current [facility]* Diagnosis Syncope and collapse Abnormal CT of brain Nonspecific (abnormal) findings on radiological and other examination of skull and head [facility]* Diagnosis Controlled type 2 diabetes mellitus without complication, without long-term current use of insulin (HCC) [facility]* Diagnosis Multinodular goiter (nontoxic)- Primary Nontoxic multinodular goiter [facility]* Diagnosis Multinodular goiter (nontoxic)- Primary Nontoxic multinodular goiter [facility]* Diagnosis Multinodular goiter (nontoxic)- Primary Nontoxic multinodular goiter [facility]* Diagnosis Monoclonal gammopathy- Primary Monoclonal paraproteinemia Iron deficiency anemia secondary to inadequate dietary iron intake [facility]* Diagnosis Monoclonal gammopathy- Primary Monoclonal paraproteinemia [facility]* Diagnosis Monoclonal gammopathy Monoclonal paraproteinemia [facility]* Diagnosis Monoclonal gammopathy- Primary Monoclonal paraproteinemia [facility]* Diagnosis Encounter for screening mammogram for breast cancer [facility]* Diagnosis Encounter for screening mammogram for breast cancer [facility]* Diagnosis Chronic antral gastritis- Primary Atrophic gastritis without mention of hemorrhage Nausea and vomiting, unspecified vomiting type [facility]* Diagnosis Neck pain Cervicalgia Syncope, unspecified syncope type Rib pain Chest pain, unspecified [facility]* Diagnosis Monoclonal gammopathy Monoclonal paraproteinemia [facility]* Diagnosis Monoclonal gammopathy Monoclonal paraproteinemia [facility] Diagnosis Monoclonal gammopathy- Primary Monoclonal paraproteinemia [facility]* Diagnosis Chronic right shoulder pain Pain in joint, shoulder region [facility]* Diagnosis Monoclonal gammopathy Monoclonal paraproteinemia [facility] Diagnosis Acute pain of left shoulder Acute pain of right shoulder [facility]* Diagnosis Rib pain Chest pain, unspecified [facility]* Diagnosis Essential hypertension Unspecified essential hypertension Chronic antral gastritis Atrophic gastritis without mention of hemorrhage Gastroesophageal reflux disease without esophagitis Esophageal reflux [facility]* Diagnosis Monoclonal gammopathy- Primary Monoclonal paraproteinemia [facility]* Diagnosis Sore throat- Primary Acute pharyngitis Gastroesophageal reflux disease, unspecified whether esophagitis present [facility]* Diagnosis Monoclonal gammopathy- Primary Monoclonal paraproteinemia [facility] instructions No data available for this section [facility] Hospital Discharge instructionsAmbulatory Orders* Cardiology Location: None Selected [facility] Work Phone: Hospital Discharge instructionsAmbulatory Orders* PT Referral Location: None Selected [facility] Work Phone: Hospital Discharge instructionsAmbulatory Orders* Orthopedics Location: None Selected [facility] Work Phone: Progress note No data available for this section [facility] Proimaqn note Author Ginny Acevedo [facility] Note Date/Time July 20, 2025 10:05am [facility] [place] [address], [address] [place] [address] OFFICE VISIT Date of Service: 07/20/25 MR#: [id number] Acct: [id number] Name: ЮЛИЯ PRASAD Rep #: [id number] : 1955 Provider: PERLA Acevedo Age/Sex: 69/F [place] [facility] Status: Signed Intake Vital Signs 06/21/25 10:53 07/05/25 13:56 07/20/25 09:45 07/20/25 09:50 Height 5 ft 1 in 5 ft 1 in 5 ft 1 in 5 ft 1 in Weight: 128 lb 6 oz BMI 24.3 BP 140/84 H Intake Visit Reasons: 4 Med Ck Chief Complaint: 4 Week Med check Steward/Stewardess Dining Room Required: No Is patient in pain?: No Allergies ciprofloxacin HCl (From Cipro) Allergy (Verified 07/20/25 09:45) Rash clindamycin Allergy (Verified 07/20/25 09:45) throat swelling-see comment section fluoxetine HCl (From Prozac) Allergy (Verified 07/20/25 09:45) Rash metronidazole Allergy (Verified 07/20/25 09:45) Anaphylaxis Penicillins Allergy (Verified 07/20/25 09:45) Rash Sulfa (Sulfonamide Antibiotics) Allergy (Verified 07/20/25 09:45) Rash adhesive Adverse Reaction (Verified 07/20/25 09:45) redness with bandaids amoxicillin trihydrate (From Augmentin) Adverse Reaction (Verified 07/20/25 09:45) thrush/yeast infection potassium clavulanate (From Augmentin) Adverse Reaction (Verified 07/20/25 09:45) thrush/yeast infection rosuvastatin Adverse Reaction (Verified 07/20/25 09:45) Diarrhea Medications ?Medication ?Instructions ?Recorded ?Confirmed ?Type famotidine 20 mg tablet 20 mg PO QDAY 11/08/2407/20 History fluticasone 250 mcg-salmeterol 50 1 inh inhalation BID 11/08/24 07/20/25 History mcg/dose blistr powdr for inhalation aspirin 81 mg tablet,delayed 81 mg PO QDAY 02/02/25 History release (Adult Low Dose Aspirin) fluorouracil 5 % topical cream 1 applic topical BID 07/20/25 History clobetasol 0.05 % topical cream 1 g topical QDAY PRN r smooth #15 grams 03/16/25 07/20/25 Rx cholecalciferol (vitamin D3) 25 1,000 unit PO DAILY #9 0 caps 04/26/25 07/20/25 Rx mcg (1,000 unit) capsule coenzyme Q10 100 mg capsule (Co 200 mg (2 x 100 mg) PO DAILY 04/26/25 07/20/25 Rx Q-10) supplement #180 caps furosemide 20 mg tablet 20 mg PO DAILY #90 tabs 04/1007/20/25 Rx meloxicam 15 mg tablet 15 mg PO QDAY #90 tabs 04/2607/20/25 Rx metformin 500 mg tablet 500 mg PO BID #180 tabs 04/1007/20/25 Rx montelukast 10 mg tablet 10 mg PO QHS allergies #90 t abs 04/26/25 07/20/25 Rx trazodone 100 mg tablet 100 mg PO QHS sleep #90 tabs 04/26/25 07/20/25 Rx pantoprazole 40 mg tablet,delayed 40 mg PO QDAY #90 ta bs 05/09/25 07/20/25 Rx release dulaglutide 0.75 mg/0.5 mL 1.5 mg subcut QWEEK 05/16/2 5 07/20/25 History subcutaneous pen injector (Trulicity) denosumab 60 mg/mL subcutaneous 60 mg subcut Q7PGWTTL #1 mL 05/24/25 07/20/25 Rx syringe (Prolia) ondansetron 4 mg disintegrating 4 mg PO Q8H PRN PRN Na usea #30 tabs 06/07/25 07/20/25 Rx tablet estradiol 0.01% (0.1 mg/gram) See Rx Instructions vagi nal 06/21/25 07/20/25 Rx vaginal cream .COMPLEX #42.5 grams blood sugar diagnostic (Accu-Chek #100 ea 06/27/2509/03 Rx Guide test strips) blood-glucose meter (Accu-Chek #1 ea 06/27/25 07/20/25 Rx Guide Glucose Meter) lancets (Accu-Chek Softclix #200 ea 06/27/25 07/20/25 Rx Lancets) atorvastatin 10 mg tablet (Lipitor) 10 mg PO QHS #30 t abs 07/14/25 07/20/25 Rx lisinopril 2.5 mg tablet 2.5 mg PO QDAY #30 tabs 03/0407/20/25 Rx Is last menstrual period known: No Post menopausal: Yes Patient : No : No PFSH Medical History Right shoulder pain Left shoulder pain Vaginal atrophy Nocturia Urgency of urination Frequency of micturition Chest pain Diabetes HLD (hyperlipidemia) Osteopenia Monoclonal gammopathy Thyroid nodule Nonhealing surgical wound Ulcer of [...] cholecystectomy History of fusion of cervical spine (~2003) H/O: hysterectomy Family History Sister Colon polyps Hypertension Asthma Depression Melanoma Thyroid disorder Brother Colon polyps Parkinson disease Myocardial infarction Heart disease Mother Colon polyps Colon cancer COPD (chronic obstructive pulmonary disease) Arthritis Father Colon polyps Heart disease Myocardial infarction Grandmother Alcoholism Grandfather Diabetes Social History adopted: No household members: none number of children: 3 current occupational 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 States that it made her feel very raw so stopped it after 2 weeks. She had growth of Gardnerella on last culture but has anaphylaxis to flagyl and clindamycin so was attempting to manage atrophy first to see if would help burning, dryness. History 4 Elective abortions Hx Para 3 Spontaneous abortions 1 Hx # Term Pregnancies Ectopic pregnancies Hx # Pregnancies Multiple births # of living children 3 Past Pregnancies Del. Date Name GA/Weeks Outcome Route Bth Weight Infant Gen Labor Lgth Anesthesia Del Locatn Provider FOB Unknown - 1974 Unknown - 1978 Unknown 1981 ROS Const Constitutional: Reports system reviewed and no additional complaints, except as documented Eyes Eyes: Reports system reviewed and no additional complaints, except as documented GI GI: Denies abdominal pain or change in bowel habits : Reports as per HPI Exam Const General: cooperative, no acute distress, well developed and well groomed Nutritional Appearance: well nourished Orientation: oriented x3 Neck Neck: normal visual inspection External Female Exam: normal appearance of the urethra and other (atrophic changes with regression of minora) Urethra: normal appearance of the urethra Speculum Exam - Vagina: vagina atrophic (significant) Speculum Exam - Cervix: absent Bimanual Exam- Vagina & Uterus: uterus absent Bimanual Exam- Adnexa, other: normal adnexae, no masses, non-tender and cystocele Pelvic Support: cystocele mild Coding Level of Care Code Off vis,est,level 3 Diagnoses Vaginal burning N94.89 Atrophic vaginitis N95.2 Assessment and Plan Assessment and Plan (1) Vaginal burning: Status: Acute (2) Atrophic vaginitis: Status: Acute Comment: estradiol cream/caused vaginitis sx and stopped Orders: Orders Culture, Genital Comprehensive Today N89.8 - Other specified noninflammatory disorders of vagina Plan stop all vaginal medications use A&D ointment only comp vaginal culture and sensitivities for any growth Call patient with results 07/20/25 1005 <Electronically signed by Ginny pulido RO[address] [employer] [address] GRADER-C> Date _ Ginny Acevedo RO[address] [employer] GRADER-C Cosigner Signature: Date (if applicable) CC: ~ [facility] [facility] Work Phone: [employer] for referral (narrative)* Diagnostic Procedure Only (Routine) - Closed Specialty Diagnoses / Procedures Referred By Marcelo benedict Referred To Contact US IMAGING Diagnoses Renal cyst Procedures US KIDNEY/BLADDER US RETROPERITONEAL REAL TIME W/IMAGE COMPLETE Clarice Petersen MD [address] [place] [address] Us Imaging Referral ID Status Reason Start Date Expiration Date V isits Requested Visits Authorized [id number] Closed Auto-Generate d Referral 01/24/2022 02/23/2023 1 1 [facility] for referral (narrative)* Diagnostic Procedure Only (Routine) - Authorized Specialty Diagnoses / Procedures Referred By Marcelo benedict Referred To Contact BR IMAGING Diagnoses Screening breast examination Procedures CARLOS EDUARDO SCREENING SCREENING MAMMOGRAPHY BI 2-VIEW BREAST INC CAD Clarice Petersen MD [address] [place] [address] [facility] [address] [place] [address] Referral ID Status Reason Start Date Expiration Date Visits Requested Visits Authorized [id number] Authorized Auto-Generat ed Referral 03/12/2022 04/11/2023 1 1 [facility] for referral (narrative)* Diagnostic Procedure Only (Routine) - Pending Review Specialty Diagnoses / Procedures Referred By Contac t Referred To Contact BR IMAGING Diagnoses Screening breast examination Procedures CARLOS EDUARDO SCREENING SCREENING MAMMOGRAPHY BI 2-[place] [address] [place] [id number] [facility] [address] [place] [address] Referral ID Status Reason Start Date Expiration Date Visits Requested Visits Authorized [id number] Pending Review Auto-Generat ed Referral 03/13/2022 04/12/2023 1 1 [facility] for referral (narrative)* Diagnostic Procedure Only (Routine) - Authorized Specialty Diagnoses / Procedures Referred By Contac t Referred To Contact BR IMAGING Diagnoses Screening breast examination Procedures CARLOS EDUARDO SCREENING SCREENING MAMMOGRAPHY BI 2-VIEW BREAST INC Clarice Sarabia MD [facility] [place] [address] [facility] [address] [place] [address] Referral ID Status Reason Start Date Expiration Date Visits Requested Visits Authorized [id number] Authorized Auto-Generat ed Referral 03/12/2022 04/11/2023 1 1 [facility] for referral (narrative)* Diagnostic Procedure Only (Routine) - Pending Review Specialty Diagnoses / Procedures Referred By Contac t Referred To Contact XR IMAGING Diagnoses Acute pain of left shoulder Procedures XR SHOULDER GENERAL 3V OR MORE AP/TRUE AP/OTHER LEFT RADEX SHOULDER COMPLETE MINIMUM 2 VIEWS Clarice Petersen MD [address] [place] [address] Xr Imaging Referral ID Status Reason Start Date Expiration Date Visits Requested Visits Authorized [id number] Pending Review Auto-Generat ed Referral 05/24/2022 06/23/2023 1 1 [facility] for referral (narrative)* Diagnostic Procedure Only (Routine) - Closed Specialty Diagnoses / Procedures Referred By Contac t Referred To Contact XR IMAGING Diagnoses Acute pain of right shoulder Procedures XR SHOULDER GENERAL 3V OR MORE AP/TRUE AP/OTHER RIGHT RADEX SHOULDER COMPLETE MINIMUM 2 VIEWS Clarice Petersen MD [address] [place] [address] Xr Imaging Referral ID Status Reason Start Date Expiration Date V isits Requested Visits Authorized [id number] Closed Auto-Generate d Referral 06/03/2022 07/03/2023 1 1 [facility] for referral (narrative)* Diagnostic Procedure Only (Routine) - Pending Review Specialty Diagnoses / Procedures Referred By Contac t Referred To Contact MOLECULAR & FUNCTIONAL IMAGING Diagnoses Encounter for screening for cardiovascular disorders Chest pain, unspecified type Procedures NM CARDIAC PERF STRESS/PHARM MYOCARDIAL SPECT MULTIPLE STUDIES Carolina Mirza PA-C [address] [place] [address] Molecular & Functional Imaging [address] [place] [address] Referral ID Status Reason Start Date Expiration Date Visits Requested Visits Authorized [id number] Pending Review Auto-Generat ed Referral 08/08/2022 09/07/2023 1 1 [facility] for referral (narrative)* Diagnostic Procedure Only (Routine) - Authorized Specialty Diagnoses / Procedures Referred By Contac t Referred To Contact US IMAGING Diagnoses Elevated lipase Procedures US ABD RIGHT UPPER QUADRANT US ABDOMINAL REAL TIME W/IMAGE LIMITED Clarice Petersen MD [address] [place] [address] Us Imaging Referral ID Status Reason Start Date Expiration Date Visits Requested Visits Authorized [id number] Authorized Auto-Generat ed Referral 02/20/2023 03/21/2024 1 1 [facility] for referral (narrative)* Outpatient Procedure (Routine) - Authorized Specialty Diagnoses / Procedures Referred By Contac t Referred To Contact [facility] Diagnoses Syncope and collapse Procedures ECG COMPLETE ECG ROUTINE ECG W/LEAST 12 LDS W/I&R MarbellalogSahra cunningham APRN.FLATWORK SUPERVISOR [address] [place] [address] [facility] [place] [address] [place] [address] Referral ID Status Reason Start Date Expiration Date Visits Requested Visits Authorized [id number] Authorized Auto-Generat ed Referral 09/10/2023 09/09/2024 1 1 * MRI/CT (Urgent) - Authorized Specialty Diagnoses / Procedures Referred By Contac t Referred To Contact CT IMAGING Diagnoses Syncope and collapse Procedures CT BRAIN WO IVCON CT HEAD/BRAIN W/O CONTRAST MATERIAL Sahra Moreno APRN.FLATWORK SUPERVISOR [address] [place] [address] [place] [address] Referral ID Status Reason Start Date Expiration Date Visits Requested Visits Authorized [id number] Authorized Auto-Generat ed Referral 09/10/2023 10/09/2024 1 1 * Diagnostic Procedure Only (Routine) - Closed Specialty Diagnoses / Procedures Referred By Contac t Referred To Contact XR IMAGING Diagnoses Syncope, unspecified syncope type Rib pain Procedures XR RIBS/CHEST 3V AP RIB/OBLS/CXR RIGHT RADEX RIBS UNI W/POSTEROANT CH MINIMUM 3 VIEWS Sahra Moreno APRN.FLATWORK SUPERVISOR [address] [place] [address] [place] [address] Referral ID Status Reason Start Date Expiration Date V isits Requested Visits Authorized [id number] Closed Auto-Generate d Referral 09/10/2023 10/09/2024 1 1 * Diagnostic Procedure Only (Urgent) - Closed Specialty Diagnoses / Procedures Referred By Contac t Referred To Contact XR IMAGING Diagnoses Neck pain Syncope, unspecified syncope type Procedures XR CERV OTHER 4V AP/LAT/OBL RADEX SPINE CERVICAL 4 OR 5 VIEWS MarbellalogSahra cunningham APRN.CNP [address] [place] [address] [place] [address] Referral ID Status Reason Start Date Expiration Date V isits Requested Visits Authorized [id number] Closed Auto-Generate d Referral 09/10/2023 10/09/2024 1 1 [facility] for referral (narrative)* Diagnostic Procedure Only (Routine) - Closed Specialty Diagnoses / Procedures Referred By Contac t Referred To Contact MOLECULAR & FUNCTIONAL IMAGING Diagnoses Encounter for screening for cardiovascular disorders Chest pain, unspecified type Procedures NM CARDIAC PERF STRESS/PHARM MYOCARDIAL SPECT MULTIPLE STUDIES Carolina Mirza PA-C [address] [place] [address] Molecular & Functional Imaging [address] [place] [address] Referral ID Status Reason Start Date Expiration Date V isits Requested Visits Authorized [id number] Closed Auto-Generate d Referral 04/01/2023 04/30/2024 1 1 [facility] for referral (narrative)* Diagnostic Procedure Only (Routine) - Closed Specialty Diagnoses / Procedures Referred By Contac t Referred To Contact US IMAGING Diagnoses Elevated lipase Procedures US ABD RIGHT UPPER QUADRANT US ABDOMINAL REAL TIME W/IMAGE LIMITED Clarice Petersen MD [address] [place] [address] [place] [address] Referral ID Status Reason Start Date Expiration Date V isits Requested Visits Authorized [id number] Closed Auto-Generate d Referral 02/20/2023 03/21/2024 1 1 [facility] for referral (narrative)* Diagnostic Procedure Only (Routine) - Closed Specialty Diagnoses / Procedures Referred By Contac t Referred To Contact BR IMAGING Diagnoses Screening breast examination Procedures CARLOS EDUARDO SCREENING SCREENING MAMMOGRAPHY BI 2-VIEW BREAST INC Clarice Sarabia MD [address] [place] [address] Br Imaging [address] [place] [address] Referral ID Status Reason Start Date Expiration Date V isits Requested Visits Authorized [id number] Closed Auto-Generate d Referral 03/13/2022 04/12/2023 1 1 [facility] for referral (narrative)* Diagnostic Procedure Only (Routine) - Closed Specialty Diagnoses / Procedures Referred By Contac t Referred To Contact XR IMAGING Diagnoses Monoclonal gammopathy Procedures XR BONE SURVEY ROUTINE RADIOLOGIC EXAMINATION OSSEOUS SURVEY COMPL Cristhian Smith DO [address] [place] [address] [place] [address] Referral ID Status Reason Start Date Expiration Date V isits Requested Visits Authorized [id number] Closed Auto-Generate d Referral 06/24/2024 07/24/2025 1 1 [facility] for referral (narrative)* Diagnostic Procedure Only (Routine) - Closed Specialty Diagnoses / Procedures Referred By Contac t Referred To Contact BR IMAGING Diagnoses Encounter for screening mammogram for breast cancer Procedures CARLOS EDUARDO SCREENING W MIGUEL SCREENING DIGITAL BREAST TOMOSYNTHESIS BI SCREENING MAMMOGRAPHY BI 2-VIEW BREAST INC Hemanth Love MD [address] [place] [address] Br Imaging [address] [place] [address] Referral ID Status Reason Start Date Expiration Date V isits Requested Visits Authorized [id number] Closed Auto-Generate d Referral 06/30/2024 07/30/2025 1 1 [facility] for referral (narrative)* Diagnostic Procedure Only (Routine) - Closed Specialty Diagnoses / Procedures Referred By Contac t Referred To Contact XR IMAGING Diagnoses Syncope, unspecified syncope type Rib pain Procedures XR RIBS/CHEST 3V AP RIB/OBLS/CXR RIGHT RADEX RIBS UNI W/POSTEROANT CH MINIMUM 3 VIEWS PodlogarSahra APRN.FLATWORK SUPERVISOR [address] [place] [address] [place] [address] Referral ID Status Reason Start Date Expiration Date V isits Requested Visits Authorized [id number] Closed Auto-Generate d Referral 09/10/2023 10/09/2024 1 1 * Diagnostic Procedure Only (Urgent) - Closed Specialty Diagnoses / Procedures Referred By Contac t Referred To Contact XR IMAGING Diagnoses Neck pain Syncope, unspecified syncope type Procedures XR CERV OTHER 4V AP/LAT/OBL RADEX SPINE CERVICAL 4 OR 5 VIEWS PodlogSahra cunningham APRN.FLATWORK SUPERVISOR [address] [place] [address] [place] [address] Referral ID Status Reason Start Date Expiration Date V isits Requested Visits Authorized [id number] Closed Auto-Generate d Referral 09/10/2023 10/09/2024 1 1 [facility] for referral (narrative)* Diagnostic Procedure Only (Routine) - Closed Specialty Diagnoses / Procedures Referred By Contac t Referred To Contact XR IMAGING Diagnoses Chronic right shoulder pain Procedures XR SHOULDER GENERAL 3V OR MORE AP/TRUE AP/OTHER RIGHT RADEX SHOULDER COMPLETE MINIMUM 2 VIEWS Carolina Mirza PA-C [address] [place] [address] [place] [address] Referral ID Status Reason Start Date Expiration Date V isits Requested Visits Authorized [id number] Closed Auto-Generate d Referral 03/27/2023 04/25/2024 1 1 [facility] for referral (narrative)* Diagnostic Procedure Only (Routine) - Closed Specialty Diagnoses / Procedures Referred By Contac t Referred To Contact XR IMAGING Diagnoses Acute pain of right shoulder Procedures XR SHOULDER GENERAL 3V OR MORE AP/TRUE AP/OTHER RIGHT RADEX SHOULDER COMPLETE MINIMUM 2 VIEWS Clarice Petersen MD [address] [place] [address] [place] [address] Referral ID Status Reason Start Date Expiration Date V isits Requested Visits Authorized [id number] Closed Auto-Generate d Referral 06/03/2022 07/03/2023 1 1 * Diagnostic Procedure Only (Routine) - Closed Specialty Diagnoses / Procedures Referred By Contac t Referred To Contact XR IMAGING Diagnoses Acute pain of left shoulder Procedures XR SHOULDER GENERAL 3V OR MORE AP/TRUE AP/OTHER LEFT RADEX SHOULDER COMPLETE MINIMUM 2 VIEWS Clarice Petersen MD [address] [place] [address] [place] [address] Referral ID Status Reason Start Date Expiration Date V isits Requested Visits Authorized [id number] Closed Auto-Generate d Referral 05/24/2022 06/23/2023 1 1 [facility] for referral (narrative)No reason for referral information availableWFort [facility] Work Phone: Reason for visit Narrative* Outpatient Procedure (Routine) - Closed Specialty Diagnoses / Procedures [facility]erred To [facility] Diagnoses History of gastric polyp Dysphagia, unspecified type Procedures EGD DIAGNOSTIC ESOPHAGOGASTRODUODENOSC OPY TRANSORAL DIAGNOSTIC Cira Frazier APRN.FLATWORK SUPERVISOR [address] [place] [address] [facility] [place] [address] [place] [address] Referral ID Status Reason Start Date Expiration Date V isits Requested Visits Authorized [id number] Closed Auto-Generate d Referral 01/28/2022 01/28/2023 1 1 [facility] for visit Narrative* Diagnostic Procedure Only (Routine) - Closed Specialty Diagnoses / Procedures Referred By Contac t Referred To Contact [facility]LECULAR & FUNCTIONAL IMAGING Diagnoses Encounter for screening for cardiovascular disorders Chest pain, unspecified type Procedures NM CARDIAC PERF STRESS/PHARM MYOCARDIAL SPECT MULTIPLE STUDIES Carolina Mirza PA-C [address] [place] [address] Molecular [facility] [address] [place] [address] Referral ID Status Reason Start Date Expiration Date V isits Requested Visits Authorized [id number] Closed Auto-Generate d Referral 04/01/2023 04/30/2024 1 1 [facility] for visit Narrative* Diagnostic Procedure Only (Routine) - Closed Specialty Diagnoses / Procedures Referred By Contac t Referred To Contact BR IMAGING Diagnoses Screening breast examination Procedures CARLOS EDUARDO SCREENING SCREENING MAMMOGRAPHY BI 2-VIEW BREAST INC CAD Clarice Petersen MD [address] [place] [address] Br Imaging [address] [place] [address] Referral ID Status Reason Start Date Expiration Date V isits Requested Visits Authorized [id number] Closed Auto-Generate d Referral 03/13/2022 04/12/2023 1 1 [facility] for visit Narrative* Diagnostic Procedure Only (Routine) - Closed Specialty Diagnoses / Procedures Referred By Contac t Referred To Contact XR IMAGING Diagnoses Monoclonal gammopathy Procedures XR BONE SURVEY ROUTINE RADIOLOGIC EXAMINATION OSSEOUS SURVEY COMPL Cristhian Smith, [address] [place] [address] [place] [address] Referral ID Status Reason Start Date Expiration Date V isits Requested Visits Authorized [id number] Closed Auto-Generate d Referral 06/24/2024 07/24/2025 1 1 [facility] for visit Narrative* Diagnostic Procedure Only (Routine) - Closed Specialty Diagnoses / Procedures Referred By Contac t Referred To Contact BR IMAGING Diagnoses Encounter for screening mammogram for breast cancer Procedures CARLOS EDUARDO SCREENING W MIGUEL SCREENING DIGITAL BREAST TOMOSYNTHESIS BI SCREENING MAMMOGRAPHY BI 2-VIEW BREAST INC CAD Hemanth Carranza MD [address] [place] [address] Br Imaging [address] [place] [address] Referral ID Status Reason Start Date Expiration Date V isits Requested Visits Authorized [id number] Closed Auto-Generate d Referral 06/30/2024 07/30/2025 1 1 [facility] for visit Narrative* Diagnostic Procedure Only (Routine) - Closed Specialty Diagnoses / Procedures Referred By Contac t Referred To Contact XR IMAGING Diagnoses Syncope, unspecified syncope type Rib pain Procedures XR RIBS/CHEST 3V AP RIB/OBLS/CXR RIGHT RADEX RIBS UNI W/POSTEROANT CH MINIMUM 3 VIEWS PodlogarSahra APRN.CNP [address] [place] [address] [place] [address] Referral ID Status Reason Start Date Expiration Date V isits Requested Visits Authorized [id number] Closed Auto-Generate d Referral 09/10/2023 10/09/2024 1 1 [facility] for visit Narrative* Diagnostic Procedure Only (Routine) - Closed Specialty Diagnoses / Procedures Referred By Contac t Referred To Contact XR IMAGING Diagnoses Chronic right shoulder pain Procedures XR SHOULDER GENERAL 3V OR MORE AP/TRUE AP/OTHER RIGHT RADEX SHOULDER COMPLETE MINIMUM 2 VIEWS Carolina Mirza PA-C [address] [place] [address] [place] [address] Referral ID Status Reason Start Date Expiration Date V isits Requested Visits Authorized [id number] Closed Auto-Generate d Referral 03/27/2023 04/25/2024 1 1 [facility] for visit Narrative* Diagnostic Procedure Only (Routine) - Closed Specialty Diagnoses / Procedures Referred By Contac t Referred To Contact XR IMAGING Diagnoses Acute pain of right shoulder Procedures XR SHOULDER GENERAL 3V OR MORE AP/TRUE AP/OTHER RIGHT RADEX SHOULDER COMPLETE MINIMUM 2 VIEWS Clarice Petersen MD [address] [place] [address] [place] [address] Referral ID Status Reason Start Date Expiration Date V isits Requested Visits Authorized [id number] Closed Auto-Generate d Referral 06/03/2022 07/03/2023 [facility] Procedure Only (Urgent) - Closed Specialty Diagnoses / Procedures Referred By Contac t Referred To Contact XR IMAGING Diagnoses Arm injuries, left, initial encounter Procedures XR HUMERUS 2V AP/LAT LT X-RAY HUMERUS Damien Stanley APRN.FLATWORK SUPERVISOR [address] [place] [address] [place] [address] Referral ID Status Reason Start Date Expiration Date V isits Requested Visits Authorized [id number] Closed Auto-Generate d Referral 09/19/2021 10/19/2022 1 1 [facility] Summary Purpose Family History Relationship Condition Age at Onset Recorded Date/T [...] Unknown grandfather Diabetes mellitus Unknown Advance Directives Documents on File Type Date Recorded 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 Advance Directive(s) 08/27/2018 3:33 PM Advance Directive(s) 12/24/2017 7:15 AM Advance Directive(s) 03/18/2017 9:19 AM Documents on File Type Date Recorded 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 Advance Directive(s) 08/27/2018 3:33 PM Advance Directive(s) 12/24/2017 7:15 AM Advance Directive(s) 03/18/2017 9:19 AM Documents on File Type Date Recorded 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 Advance Directive(s) 03/14/2022 6:35 AM Advance Directive(s) 08/27/2018 3:33 PM Advance Directive(s) 12/24/2017 7:15 AM Advance Directive(s) 03/18/2017 9:19 AM Advance Directive Response Recorded Date/ Time Living Will No September 18 1:27pm Power of Supply Controller No September 18, 2020 1:27pm Documents on File Type Date Recorded 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 No February 05, 2023 6:22pm Do you have a Healthcare Power of Supply Controller? No March 07, 2025 11:06am Advance Directive Response Recorded Date/ Time Do you have a Healthcare Power of Supply Controller? No March 07, 2025 11:06am Medications Administered Section Active Administered Medications - up to 3 most recent administrations Medication Order MAR Action Action Date Dose Rate Site fluorescein-benoxinate 0.25-0.4 % 1 Drop (FLURESS) 1 Drop, BOTH EYES, DIRECTED, Starting on Fri02/12/22 at 1430, Until Fri02/13/22 at 0229, Administer for applanation tonometry. In the event of a Fluress shortage, administer [place]-Fluor 1 drop into both eyes as directed [...] To Contact Barbie Ruiz MD [address] [id number] Referral ID Status Reason Start Date Expiration Date Visits Re quested Visits Authorized [id number] Closed 1 1 Specialty Diagnoses / Procedures Referred By Contac t Referred To Contact [facility] Diagnoses Mild persistent asthma without complication Procedures NITRIC OXIDE, EXHALED NITRIC OXIDE GAS DETERMINATION Barbie Ruiz MD [address] [place] [address] [facility] [place] [address] [place] [address] Referral ID Status Reason Start Date Expiration Date V isits Requested Visits Authorized [id number] Closed Auto-Generate d Referral 02/28/2022 03/30/2023 1 1 Specialty Diagnoses / Procedures Referred By Contac t Referred To Contact [facility] Diagnoses Mild persistent asthma without complication Procedures SPIROMETRY WITH DILATOR IF OBSTRUCTED BRNCDILAT RSPSE SPMTRY PRE&POST-BRNCDILAT ADMN Barbie Ruiz MD [address] [place] [address] [facility] [place] [address] [place] [address] Referral ID Status Reason Start Date Expiration Date V isits Requested Visits Authorized [id number] Closed Auto-Generate d Referral 02/28/2022 03/30/2023 1 1 Specialty Diagnoses / Procedures Referred By Contac t Referred To Contact Clarice Petersen MD [address] [place] [address] Referral ID Status Reason Start Date Expiration Date Visits Re quested Visits Authorized [id number] Closed 1 1 Specialty Diagnoses / Procedures Referred By Contac t Referred To Contact Carolina Mirza PA-C [address] [place] [address] Referral ID Status Reason Start Date Expiration Date Visits Re quested Visits Authorized [id number] Closed 1 1 Specialty Diagnoses / Procedures Referred By Contac t Referred To Contact Diagnoses Encounter for screening for lung cancer Procedures CONSULT LUNG CANCER SCREENING CLINIC Carolina Mirza PA-C [address] [place] [address] Referral ID Status Reason Start Date Expiration Date Visits Requested Visits Authorized [id number] Ref Not Required PCP Requested Referral 3 12/28/2023 1 1 Specialty Diagnoses / Procedures Referred By Contac t Referred To Contact Gynecology Diagnoses Vaginal pain Procedures CONSULT TO GYNECOLOGY OFFICE/OUTPATIENT [facility] MDM 60-74 MINUTES Carolina Mirza PA-C [address] [place] [address] Referral ID Status Reason Start Date Expiration Date Visits Requested Visits Authorized [id number] Authorized PCP Requested Referral Auto-Generate d Referral 3 09/28/2024 1 1 Specialty Diagnoses / Procedures Referred By Contac t Referred To Contact CT IMAGING Diagnoses Encounter for screening for lung cancer Tobacco use current Procedures CT LUNG SCREEN WO IVCON COMPUTED TOMOGRAPHY THORAX LW DOSE LNG CA Sherie Delatorre APRN.FLATWORK SUPERVISOR [address] [place] [address] [facility] [place] [address] Referral ID Status Reason Start Date Expiration Date Visits Requested Visits Authorized [id number] Authorized Auto-Generat ed Referral 10/14/2023 11/09/2024 1 1 Specialty Diagnoses / Procedures Referred By Contac t Referred To Contact MR IMAGING Diagnoses Syncope and collapse Abnormal CT of brain Procedures MRI BRAIN WO/W IVCON MRI BRAIN BRAIN STEM W/O W/CONTRAST MATERIAL Sahra Moreno ARCHITECTURAL REPRESENTATIVE.FLATWORK SUPERVISOR [address] [place] [address] Mr Imaging [place] [address] Referral ID Status Reason Start Date Expiration Date V isits Requested Visits Authorized [id number] Closed Auto-Generate d Referral 09/12/2023 10/11/2024 1 1 Referral ID Status Reason Start Date Expiration Date V isits Requested Visits Authorized [id number] Authorized 11/10/2023 11/09/2024 1 1 Referral ID Status Reason Start Date Expiration Date Visits Re quested Visits Authorized [id number] Closed 1 1 Specialty Diagnoses / Procedures Referred By Contac t Referred To Contact MR IMAGING Diagnoses Monoclonal gammopathy Procedures MRI PELVIS ORTHO GENERAL WO/W IVCON MRI ANY JT LOWER EXTREM W/O & W/CONTRAST MATRL Cristhian Smith DO [address] [place] [address] Mr Imaging [facility] Referral ID Status Reason Start Date Expiration Date Visits Requested Visits Authorized [id number] Authorized Auto-Generat ed Referral 06/28/2024 07/28/2025 1 1 Specialty Diagnoses / Procedures Referred By Contac t Referred To Contact MR IMAGING Diagnoses Monoclonal gammopathy Procedures MRI LUMBAR SPINE WO/W IVCON MRI SPINAL CANAL LUMBAR W/O & W/CONTR Cristhian Robbins, DO [address] [place] [address] Mr Imaging [facility] Referral ID Status Reason Start Date Expiration Date Visits Requested Visits Authorized [id number] Authorized Auto-Generat ed Referral 06/28/2024 07/28/2025 1 1 Specialty Diagnoses / Procedures Referred By Contac t Referred To Contact MR IMAGING Diagnoses Monoclonal gammopathy Procedures MRI THORACIC SPINE WO/W IVCON MRI SPINAL CANAL THORACIC W/O & W/CONTR Cristhian Robbins, DO [address] [place] [address] Mr Imaging [facility] Referral ID Status Reason Start Date Expiration Date Visits Requested Visits Authorized [id number] Authorized Auto-Generat ed Referral 06/28/2024 07/28/2025 1 1 Specialty Diagnoses / Procedures Referred By Contac t Referred To Contact MR IMAGING Diagnoses Monoclonal gammopathy Procedures MRI CERVICAL SPINE WO/W IVCON MRI SPINAL CANAL CERVICAL W/O & W/CONTR Cristhian Robbins, DO [address] [place] [address] Mr Imaging [facility] Referral ID Status Reason Start Date Expiration Date Visits Requested Visits Authorized [id number] Authorized Auto-Generat ed Referral 06/28/2024 07/28/2025 1 1 Referral ID Status Reason Start Date Expiration Date V isits Requested Visits Authorized [id number] Closed Auto-Generate d Referral 06/28/2024 07/28/2025 1 1 Referral ID Status Reason Start Date Expiration Date V isits Requested Visits Authorized [id number] Closed Auto-Generate d Referral 06/28/2024 07/28/2025 1 1 Referral ID Status Reason Start Date Expiration Date V isits Requested Visits Authorized [id number] Closed Auto-Generate d Referral 06/28/2024 07/28/2025 1 1 Referral ID Status Reason Start Date Expiration Date V isits Requested Visits Authorized [id number] Closed Auto-Generate d Referral 06/28/2024 07/28/2025 1 [...] fu April 06, 2025 10:11 am Hospital FU April 07, 2025 1:19p m Chief Complaint [...] fu April 06, 2025 10:11 am Hospital FU April 07, 2025 1:19p m CP (MARCO AFENER) May 16, 2025 2:14p m Reason for [...] m Osteoporosis June 07, 2025 1:23 pm Chief Complaint Admit Date EST NEW PT [...] :11pm PROLIA-$0 June 07, 2025 1:23 pm CP, PALPITATIONS June 10, 2025 5:5 9am NEW PATIENT June 10, 2025 2:3 5pm Reason for Visit Admit Date Dysphagia March [...] m Osteoporosis June 07, 2025 1:23 pm H/O urinary retention June 10, 2025 2 :35pm Reason for Visit Admit Date Dysphagia March [...] m Osteoporosis June 07, 2025 1:23 pm Cystocele, midline June 10, 2025 2:3 5pm Frequency of micturition June 10 2:35pm H/O urinary retention June 10, 2025 2 :35pm Nocturia June 10, 2025 2:3 5pm Urgency of urination June 10, 2025 2: 35pm Vaginal atrophy June 10, 2025 2:3 5pm Chief Complaint Admit Date EST NEW PT [...] fu April 06, 2025 10:11 am Hospital FU April 07, 2025 1:19p m CP (RUFENER) May 16, 2025 2:14p m 14 DAY EVENT RE-TONI May 21, 2025 2 :11pm PROLIA-$0 June 07, 2025 1:23 pm CP, PALPITATIONS June 10, 2025 5:5 9am NEW PATIENT June 10, 2025 2:3 5pm Pelvic and Perineal Pain (BIM) June 212024 10:49am Chief Complaint Admit Date EST NEW PT [...] fu April 06, 2025 10:11 am Hospital FU April 07, 2025 1:19p m CP (RUFENER) May 16, 2025 2:14p m 14 DAY EVENT RE-TONI May 21, 2025 2 :11pm PROLIA-$0 June 07, 2025 1:23 pm CP, PALPITATIONS June 10, 2025 5:5 9am NEW PATIENT June 10, 2025 2:3 5pm Pelvic and Perineal Pain (BIM) June 212024 10:49am 3 M FU June 27, 2025 1: 22pm Reason for Visit Admit Date Dysphagia March [...] m Osteoporosis June 07, 2025 1:23 pm Cystocele, midline June 10, 2025 2:3 5pm Frequency of micturition June 10 2:35pm H/O urinary retention June 10, 2025 2 :35pm Nocturia June 10, 2025 2:3 5pm Urgency of urination June 10, 2025 2: 35pm Vaginal atrophy June 10, 2025 2:3 5pm Atrophic vaginitis June 21, 2025 10 :49am Dysphagia June 27, 2025 1: 22pm Pulmonary nodules June 27, 2025 1: 22pm Smoking greater than 30 pack years Aug[facility] 2024 1:22pm Diabetes June 27, 2025 1: 22pm Thyroid nodule June 27, 2025 1: 22pm Vitamin deficiency June 27, 2025 1: 22pm Rash and nonspecific skin eruption [facility] 2024 1:22pm Mid back pain on right side June 27, 2025 1:22pm Degeneration of intervertebral disc Augu st 2024 1:22pm Chronic left shoulder pain June 27, 2025 1:22pm Monoclonal gammopathy June 27, 2025 1:22pm Asthma June 27, 2025 1: 22pm Reason for Visit Admit Date Dysphagia March [...] m Osteoporosis June 07, 2025 1:23 pm Cystocele, midline June 10, 2025 2:3 5pm Frequency of micturition June 10 2:35pm H/O urinary retention June 10, 2025 2 :35pm Nocturia June 10, 2025 2:3 5pm Urgency of urination June 10, 2025 2: 35pm Vaginal atrophy June 10, 2025 2:3 5pm Atrophic vaginitis June 21, 2025 10 :49am Dysphagia June 27, 2025 1: 22pm Pulmonary nodules June 27, 2025 1: 22pm Smoking greater than 30 pack years Victorino 2024 1:22pm Diabetes June 27, 2025 1: 22pm Thyroid nodule June 27, 2025 1: 22pm Elevated blood pressure reading June 102024 1:22pm Vitamin deficiency June 27, 2025 1: 22pm Rash and nonspecific skin eruption Aug[facility] t 2024 1:22pm Mid back pain on right side June 27, 2025 1:22pm Anxiety and depression June 27, 2025 1:22pm Chronic left shoulder pain June 27, 2025 1:22pm Monoclonal gammopathy June 27, 2025 1:22pm Asthma June 27, 2025 1: 22pm Chief Complaint Admit Date EST NEW PT [...] :11pm PROLIA-$0 June 07, 2025 1:23 pm CP, PALPITATIONS June 10, 2025 5:5 9am NEW PATIENT June 10, 2025 2:3 5pm Pelvic and Perineal Pain (BIM) June 212024 10:49am 3 M FU June 27, 2025 1: 22pm LEFT SHOULDER July 05, 2025 1: 52pm Room 2 July 05, 2025 2: 00pm Reason for Visit Admit Date Dysphagia March [...] m Osteoporosis June 07, 2025 1:23 pm Cystocele, midline June 10, 2025 2:3 5pm Frequency of micturition June 10 2:35pm H/O urinary retention June 10, 2025 2 :35pm Nocturia June 10, 2025 2:3 5pm Urgency of urination June 10, 2025 2: 35pm Vaginal atrophy June 10, 2025 2:3 5pm Atrophic vaginitis June 21, 2025 10 :49am Dysphagia June 27, 2025 1: 22pm Pulmonary nodules June 27, 2025 1: 22pm Smoking greater than 30 pack years Mandyus t 2024 1:22pm Diabetes June 27, 2025 1: 22pm Thyroid nodule June 27, 2025 1: 22pm Elevated blood pressure reading June 102024 1:22pm Vitamin deficiency June 27, 2025 1: 22pm Rash and nonspecific skin eruption Mandy[facility] t 2024 1:22pm Mid back pain on right side June 27, 2025 1:22pm Anxiety and depression June 27, 2025 1:22pm Chronic left shoulder pain June 27, 2025 1:22pm Monoclonal gammopathy June 27, 2025 1:22pm Asthma June 27, 2025 1: 22pm Left shoulder pain July 05, 2025 1: 52pm Right shoulder pain July 05, 2025 1: 52pm Chief Complaint Admit Date F17.210 - Nicotine dependence, cigarette s, uncompl [...] CP (RUFENER) May 16, 2025 2:14p m 30 DAY MONITOR May 21, 2025 8:00 am 14 DAY EVENT RE-TONI May 21, 2025 2 :11pm PROLIA-$0 June 07, 2025 1:23 pm CP, PALPITATIONS June 10, 2025 5:5 9am NEW PATIENT June 10, 2025 2:3 5pm Pelvic and Perineal Pain (BIM) June 212024 10:49am 3 M FU June 27, 2025 1: 22pm LEFT SHOULDER July 05, 2025 1: 52pm Room 2 July 05, 2025 2: 00pm screening July 08, 2025 2: 09pm Reason for Visit Admit Date Pulmonary nodules April 06, 2025 10:11 am Smoking greater than 30 pack years March 112024 10:11am Asthma April 06, 2025 10:11 am Dysphagia April 07, 2025 1:19p m Nausea & vomiting April 07, 2025 1:19p m Esophageal reflux April 07, 2025 1:19p m Chest pain May 16, 2025 2:14p m Heart palpitations May 16, 2025 2:14p m Osteoporosis June 07, 2025 1:23 pm Cystocele, midline June 10, 2025 2:3 5pm Frequency of micturition June 10 2:35pm H/O urinary retention June 10, 2025 2 :35pm Nocturia June 10, 2025 2:3 5pm Urgency of urination June 10, 2025 2: 35pm Vaginal atrophy June 10, 2025 2:3 5pm Atrophic vaginitis June 21, 2025 10 :49am Dysphagia June 27, 2025 1: 22pm Pulmonary nodules June 27, 2025 1: 22pm Smoking greater than 30 pack years Augus t 2024 1:22pm Diabetes June 27, 2025 1: 22pm Thyroid nodule June 27, 2025 1: 22pm Elevated blood pressure reading June 102024 1:22pm Vitamin deficiency June 27, 2025 1: 22pm Rash and nonspecific skin eruption Aug[facility] t 2024 1:22pm Mid back pain on right side June 27, 2025 1:22pm Anxiety and depression June 27, 2025 1:22pm Chronic left shoulder pain June 27, 2025 1:22pm Monoclonal gammopathy June 27, 2025 1:22pm Asthma June 27, 2025 1: 22pm Left shoulder pain July 05, 2025 1: 52pm Right shoulder pain July 05, 2025 1: 52pm Chief Complaint Admit Date LEFT RENAL CYST March 22, 2025 1:10p [...] CP (RUFENER) May 16, 2025 2:14p m 30 DAY MONITOR May 21, 2025 8:00 am 14 DAY EVENT RE-TONI May 21, 2025 2 :11pm PROLIA-$0 June 07, 2025 1:23 pm CP, PALPITATIONS June 10, 2025 5:5 9am NEW PATIENT June 10, 2025 2:3 5pm Pelvic and Perineal Pain (BIM) June 212024 10:49am 3 M FU June 27, 2025 1: 22pm LEFT SHOULDER July 05, 2025 1: 52pm Room 2 July 05, 2025 2: 00pm screening July 08, 2025 2: 09pm 4 Med Ck July 20, 2025 9:43am Reason for Visit Admit Date Pulmonary nodules April 06, 2025 10:11 am Smoking greater than 30 pack years March 112024 10:11am Asthma April 06, 2025 10:11 am Dysphagia April 07, 2025 1:19p m Nausea & vomiting April 07, 2025 1:19p m Esophageal reflux April 07, 2025 1:19p m Chest pain May 16, 2025 2:14p m Heart palpitations May 16, 2025 2:14p m Osteoporosis June 07, 2025 1:23 pm Cystocele, midline June 10, 2025 2:3 5pm Frequency of micturition June 10 2:35pm H/O urinary retention June 10, 2025 2 :35pm Nocturia June 10, 2025 2:3 5pm Urgency of urination June 10, 2025 2: 35pm Vaginal atrophy June 10, 2025 2:3 5pm Atrophic vaginitis June 21, 2025 10 :49am Dysphagia June 27, 2025 1: 22pm Pulmonary nodules June 27, 2025 1: 22pm Smoking greater than 30 pack years Augus t 2024 1:22pm Diabetes June 27, 2025 1: 22pm Thyroid nodule June 27, 2025 1: 22pm Elevated blood pressure reading June 102024 1:22pm Vitamin deficiency June 27, 2025 1: 22pm Rash and nonspecific skin eruption Aug[facility] t 2024 1:22pm Mid back pain on right side June 27, 2025 1:22pm Anxiety and depression June 27, 2025 1:22pm Chronic left shoulder pain June 27, 2025 1:22pm Monoclonal gammopathy June 27, 2025 1:22pm Asthma June 27, 2025 1: 22pm Left shoulder pain July 05, 2025 1: 52pm Right shoulder pain July 05, 2025 1: 52pm Atrophic vaginitis July 20, 2025 9:43am Vaginal burning July 20, 2025 9:43am Chief Complaint Admit Date F17.210 - Nicotine dependence, cigarette s, uncompl April 04, 2025 7:16am 10 wk fu April 06, 2025 10:11 am Hospital April 07, 2025 1:19p m CP (RUFENER) May 16, 2025 2:14p m 30 DAY MONITOR May 21, 2025 8:00 am 14 DAY EVENT RE-TONI May 21, 2025 2 :11pm PROLIA-$0 June 07, 2025 1:23 pm CP, PALPITATIONS June 10, 2025 5:5 9am NEW PATIENT June 10, 2025 2:3 5pm Pelvic and Perineal Pain (BIM) June 212024 10:49am 3 M FU June 27, 2025 1: 22pm LEFT SHOULDER July 05, 2025 1: 52pm Room 2 July 05, 2025 2: 00pm screening July 08, 2025 2: 09pm 4 Med Ck July 20, 2025 9:43am HAVEN SHLD PN. RX HERE July 20 12:52pm Surgical Clearance July 28, 2025 1:09pm sore throat, SOB-EORDERS July 28, 2025 2:42pm Reason for Visit Admit Date Pulmonary nodules April 06, 2025 10:11 am Smoking greater than 30 pack years March 112024 10:11am Asthma April 06, 2025 10:11 am Dysphagia April 07, 2025 1:19p m Nausea & vomiting April 07, 2025 1:19p m Esophageal reflux April 07, 2025 1:19p m Chest pain May 16, 2025 2:14p m Heart palpitations May 16, 2025 2:14p m Osteoporosis June 07, 2025 1:23 pm Cystocele, midline June 10, 2025 2:3 5pm Frequency of micturition June 10 2:35pm H/O urinary retention June 10, 2025 2 :35pm Nocturia June 10, 2025 2:3 5pm Urgency of urination June 10, 2025 2: 35pm Vaginal atrophy June 10, 2025 2:3 5pm Atrophic vaginitis June 21, 2025 10 :49am Dysphagia June 27, 2025 1: 22pm Pulmonary nodules June 27, 2025 1: 22pm Smoking greater than 30 pack years [facility] t 2024 1:22pm Diabetes June 27, 2025 1: 22pm Thyroid nodule June 27, 2025 1: 22pm Elevated blood pressure reading June 102024 1:22pm Vitamin deficiency June 27, 2025 1: 22pm Rash and nonspecific skin eruption Augus t 2024 1:22pm Mid back pain on right side June 27, 2025 1:22pm Anxiety and depression June 27, 2025 1:22pm Chronic left shoulder pain June 27, 2025 1:22pm Monoclonal gammopathy June 27, 2025 1:22pm Asthma June 27, 2025 1: 22pm Left shoulder pain July 05, 2025 1: 52pm Right shoulder pain July 05, 2025 1: 52pm Atrophic vaginitis July 20, 2025 9:43am Vaginal burning July 20, 2025 9:43am Dizziness on standing July 28 1:09pm Preop exam for internal medicine [facility] 2024 1:09pm Shortness of breath July 28, 2025 1:09pm Chief Complaint Admit Date CP (JOSE ALEJANDRO) May 16, 2025 2:14p m 30 DAY MONITOR May 21, 2025 8:00 am 14 DAY EVENT RE-TONI May 21, 2025 2 :11pm PROLIA-$0 June 07, 2025 1:23 pm CP, PALPITATIONS June 10, 2025 5:5 9am NEW PATIENT June 10, 2025 2:3 5pm Pelvic and Perineal Pain (BIM) June 212024 10:49am 3 M FU June 27, 2025 1: 22pm LEFT SHOULDER July 05, 2025 1: 52pm Room 2 July 05, 2025 2: 00pm screening July 08, 2025 2: 09pm 4 Med Ck July 20, 2025 9:43am HAVEN SHLD PN. RX HERE July 20 12:52pm Surgical Clearance July 28, 2025 1:09pm sore throat, SOB-EORDERS July 28, 2025 2:42pm Reason for Visit Admit Date Chest pain May 16, 2025 2:14p m Heart palpitations May 16, 2025 2:14p m Osteoporosis June 07, 2025 1:23 pm Cystocele, midline June 10, 2025 2:3 5pm Frequency of micturition June 10 2:35pm H/O urinary retention June 10, 2025 2 :35pm Nocturia June 10, 2025 2:3 5pm Urgency of urination June 10, 2025 2: 35pm Vaginal atrophy June 10, 2025 2:3 5pm Atrophic vaginitis June 21, 2025 10 :49am Dysphagia June 27, 2025 1: 22pm Pulmonary nodules June 27, 2025 1: 22pm Smoking greater than 30 pack years Aug[facility] 2024 1:22pm Diabetes June 27, 2025 1: 22pm Thyroid nodule June 27, 2025 1: 22pm Elevated blood pressure reading June 102024 1:22pm Vitamin deficiency June 27, 2025 1: 22pm Rash and nonspecific skin eruption [facility] 2024 1:22pm Mid back pain on right side June 27, 2025 1:22pm Anxiety and depression June 27, 2025 1:22pm Chronic left shoulder pain June 27, 2025 1:22pm Monoclonal gammopathy June 27, 2025 1:22pm Asthma June 27, 2025 1: 22pm Left shoulder pain July 05, 2025 1: 52pm Right shoulder pain July 05, 2025 1: 52pm Atrophic vaginitis July 20, 2025 9:43am Vaginal burning July 20, 2025 9:43am Dizziness on standing July 28 1:09pm Preop exam for internal medicine 2024 1:09pm Shortness of breath July 28, 2025 1:09pm Additional Source Comments INFORMATION SOURCE (unrecogn ized section and content) DATE CREATED AUTHOR 05/01/2018 [facility] DATE CREATED AUTHOR AUTHOR'S ORGANIZ ATION 09/13/2023 [facility] DATE CREATED AUTHOR AUTHOR'S ORGANIZ ATION 02/21/2024 [facility] DATE CREATED AUTHOR AUTHOR'S ORGANIZ ATION 04/19/2025 [facility] DATE CREATED AUTHOR AUTHOR'S ORGANIZ ATION 08/03/2025 [facility] Source Comments (unrecognize d section and content) In the event this informatio n is protected by the Federal Confidentiality of Alcohol and Drug Abuse Patient Records regulations: The Federal rules restrict any use of the information to criminally investigate or prosecute any alcohol or drug abuse patient.[facility] the event this information is protected by the Federal Confidentiality of Alcohol and Drug Abuse Patient Records regulations: The Federal rules restrict any use of the information to criminally investigate or prosecute any alcohol or drug abuse patient.[facility]In the event this information is protected by the Federal Confidentiality of Alcohol and Drug Abuse Patient Records regulations: The Federal rules restrict any use of the information to criminally investigate or prosecute any alcohol or drug abuse patient.[facility]In the event this information is protected by the Federal Confidentiality of Alcohol and Drug Abuse Patient Records regulations: The Federal rules restrict any use of the information to criminally investigate or prosecute any alcohol or drug abuse patient.[facility]In the event this information is protected by the Federal Confidentiality of Alcohol and Drug Abuse Patient Records regulations: The Federal rules restrict any use of the information to criminally investigate or prosecute any alcohol or drug abuse patient.[facility]In the event this information is protected by the Federal Confidentiality of Alcohol and Drug Abuse Patient Records regulations: The Federal rules restrict any use of the information to criminally investigate or prosecute any alcohol or drug abuse patient.[facility]In the event this information is protected by the Federal Confidentiality of Alcohol and Drug Abuse Patient Records regulations: The Federal rules restrict any use of the information to criminally investigate or prosecute any alcohol or drug abuse patient.[facility]In the event this information is protected by the Federal Confidentiality of Alcohol and Drug Abuse Patient Records regulations: The Federal rules restrict any use of the information to criminally investigate or prosecute any alcohol or drug abuse patient.[facility]In the event this information is protected by the Federal Confidentiality of Alcohol and Drug Abuse Patient Records regulations: The Federal rules restrict any use of the information to criminally investigate or prosecute any alcohol or drug abuse patient.[facility]In the event this information is protected by the Federal Confidentiality of Alcohol and Drug Abuse Patient Records regulations: The Federal rules restrict any use of the information to criminally investigate or prosecute any alcohol or drug abuse patient.[facility] HospitalIn the event this information is protected by the Federal Confidentiality of Alcohol and Drug Abuse Patient Records regulations: The Federal rules restrict any use of the information to criminally investigate or prosecute any alcohol or drug abuse patient.[facility] HospitalIn the event this information is protected by the Federal Confidentiality of Alcohol and Drug Abuse Patient Records regulations: The Federal rules restrict any use of the information to criminally investigate or prosecute any alcohol or drug abuse patient.[facility] HospitalIn the event this information is protected by the Federal Confidentiality of Alcohol and Drug Abuse Patient Records regulations: The Federal rules restrict any use of the information to criminally investigate or prosecute any alcohol or drug abuse patient.[facility] HospitalIn the event this information is protected by the Federal Confidentiality of Alcohol and Drug Abuse Patient Records regulations: The Federal rules restrict any use of the information to criminally investigate or prosecute any alcohol or drug abuse patient.[facility] HospitalIn the event this information is protected by the Federal Confidentiality of Alcohol and Drug Abuse Patient Records regulations: The Federal rules restrict any use of the information to criminally investigate or prosecute any alcohol or drug abuse patient.[facility] HospitalIn the event this information is protected by the Federal Confidentiality of Alcohol and Drug Abuse Patient Records regulations: The Federal rules restrict any use of the information to criminally investigate or prosecute any alcohol or drug abuse patient.[facility] HospitalIn the event this information is protected by the Federal Confidentiality of Alcohol and Drug Abuse Patient Records regulations: The Federal rules restrict any use of the information to criminally investigate or prosecute any alcohol or drug abuse patient.[facility] HospitalIn the event this information is protected by the Federal Confidentiality of Alcohol and Drug Abuse Patient Records regulations: The Federal rules restrict any use of the information to criminally investigate or prosecute any alcohol or drug abuse patient.[facility]In the event this information is protected by the Federal Confidentiality of Alcohol and Drug Abuse Patient Records regulations: The Federal rules restrict any use of the information to criminally investigate or prosecute any alcohol or drug abuse patient.[facility] HospitalIn the event this information is protected by the Federal Confidentiality of Alcohol and Drug Abuse Patient Records regulations: The Federal rules restrict any use of the information to criminally investigate or prosecute any alcohol or drug abuse patient.[facility] HospitalIn the event this information is protected by the Federal Confidentiality of Alcohol and Drug Abuse Patient Records regulations: The Federal rules restrict any use of the information to criminally investigate or prosecute any alcohol or drug abuse patient.[facility] HospitalIn the event this information is protected by the Federal Confidentiality of Alcohol and Drug Abuse Patient Records regulations: The Federal rules restrict any use of the information to criminally investigate or prosecute any alcohol or drug abuse patient.[facility] HospitalIn the event this information is protected by the Federal Confidentiality of Alcohol and Drug Abuse Patient Records regulations: The Federal rules restrict any use of the information to criminally investigate or prosecute any alcohol or drug abuse patient.[facility] HospitalIn the event this information is protected by the Federal Confidentiality of Alcohol and Drug Abuse Patient Records regulations: The Federal rules restrict any use of the information to criminally investigate or prosecute any alcohol or drug abuse patient.[facility] HospitalIn the event this information is protected by the Federal Confidentiality of Alcohol and Drug Abuse Patient Records regulations: The Federal rules restrict any use of the information to criminally investigate or prosecute any alcohol or drug abuse patient.[facility] HospitalIn the event this information is protected by the Federal Confidentiality of Alcohol and Drug Abuse Patient Records regulations: The Federal rules restrict any use of the information to criminally investigate or prosecute any alcohol or drug abuse patient.[facility] HospitalIn the event this information is protected by the Federal Confidentiality of Alcohol and Drug Abuse Patient Records regulations: The Federal rules restrict any use of the information to criminally investigate or prosecute any alcohol or drug abuse patient.[facility] HospitalIn the event this information is protected by the Federal Confidentiality of Alcohol and Drug Abuse Patient Records regulations: The Federal rules restrict any use of the information to criminally investigate or prosecute any alcohol or drug abuse patient.[facility] HospitalIn the event this information is protected by the Federal Confidentiality of Alcohol and Drug Abuse Patient Records regulations: The Federal rules restrict any use of the information to criminally investigate or prosecute any alcohol or drug abuse patient.[facility] HospitalIn the event this information is protected by the Federal Confidentiality of Alcohol and Drug Abuse Patient Records regulations: The Federal rules restrict any use of the information to criminally investigate or prosecute any alcohol or drug abuse patient.[facility] HospitalIn the event this information is protected by the Federal Confidentiality of Alcohol and Drug Abuse Patient Records regulations: The Federal rules restrict any use of the information to criminally investigate or prosecute any alcohol or drug abuse patient.[facility] HospitalIn the event this information is protected by the Federal Confidentiality of Alcohol and Drug Abuse Patient Records regulations: The Federal rules restrict any use of the information to criminally investigate or prosecute any alcohol or drug abuse patient.[facility] HospitalIn the event this information is protected by the Federal Confidentiality of Alcohol and Drug Abuse Patient Records regulations: The Federal rules restrict any use of the information to criminally investigate or prosecute any alcohol or drug abuse patient.[facility] HospitalIn the event this information is protected by the Federal Confidentiality of Alcohol and Drug Abuse Patient Records regulations: The Federal rules restrict any use of the information to criminally investigate or prosecute any alcohol or drug abuse patient.[facility] HospitalIn the event this information is protected by the Federal Confidentiality of Alcohol and Drug Abuse Patient Records regulations: The Federal rules restrict any use of the information to criminally investigate or prosecute any alcohol or drug abuse patient.[facility] HospitalIn the event this information is protected by the Federal Confidentiality of Alcohol and Drug Abuse Patient Records regulations: The Federal rules restrict any use of the information to criminally investigate or prosecute any alcohol or drug abuse patient.[facility] HospitalIn the event this information is protected by the Federal Confidentiality of Alcohol and Drug Abuse Patient Records regulations: The Federal rules restrict any use of the information to criminally investigate or prosecute any alcohol or drug abuse patient.[facility] HospitalIn the event this information is protected by the Federal Confidentiality of Alcohol and Drug Abuse Patient Records regulations: The Federal rules restrict any use of the information to criminally investigate or prosecute any alcohol or drug abuse patient.[facility] HospitalIn the event this information is protected by the Federal Confidentiality of Alcohol and Drug Abuse Patient Records regulations: The Federal rules restrict any use of the information to criminally investigate or prosecute any alcohol or drug abuse patient.[facility] HospitalIn the event this information is protected by the Federal Confidentiality of Alcohol and Drug Abuse Patient Records regulations: The Federal rules restrict any use of the information to criminally investigate or prosecute any alcohol or drug abuse patient.[facility] HospitalIn the event this information is protected by the Federal Confidentiality of Alcohol and Drug Abuse Patient Records regulations: The Federal rules restrict any use of the information to criminally investigate or prosecute any alcohol or drug abuse patient.[facility] HospitalIn the event this information is protected by the Federal Confidentiality of Alcohol and Drug Abuse Patient Records regulations: The Federal rules restrict any use of the information to criminally investigate or prosecute any alcohol or drug abuse patient.[facility] HospitalIn the event this information is protected by the Federal Confidentiality of Alcohol and Drug Abuse Patient Records regulations: The Federal rules restrict any use of the information to criminally investigate or prosecute any alcohol or drug abuse patient.[facility] HospitalIn the event this information is protected by the Federal Confidentiality of Alcohol and Drug Abuse Patient Records regulations: The Federal rules restrict any use of the information to criminally investigate or prosecute any alcohol or drug abuse patient.[facility] HospitalIn the event this information is protected by the Federal Confidentiality of Alcohol and Drug Abuse Patient Records regulations: The Federal rules restrict any use of the information to criminally investigate or prosecute any alcohol or drug abuse patient.[facility] HospitalIn the event this information is protected by the Federal Confidentiality of Alcohol and Drug Abuse Patient Records regulations: The Federal rules restrict any use of the information to criminally investigate or prosecute any alcohol or drug abuse patient.[facility] HospitalIn the event this information is protected by the Federal Confidentiality of Alcohol and Drug Abuse Patient Records regulations: The Federal rules restrict any use of the information to criminally investigate or prosecute any alcohol or drug abuse patient.[facility] HospitalIn the event this information is protected by the Federal Confidentiality of Alcohol and Drug Abuse Patient Records regulations: The Federal rules restrict any use of the information to criminally investigate or prosecute any alcohol or drug abuse patient.[facility] HospitalIn the event this information is protected by the Federal Confidentiality of Alcohol and Drug Abuse Patient Records regulations: The Federal rules restrict any use of the information to criminally investigate or prosecute any alcohol or drug abuse patient.[facility] HospitalIn the event this information is protected by the Federal Confidentiality of Alcohol and Drug Abuse Patient Records regulations: The Federal rules restrict any use of the information to criminally investigate or prosecute any alcohol or drug abuse patient.[facility] HospitalIn the event this information is protected by the Federal Confidentiality of Alcohol and Drug Abuse Patient Records regulations: The Federal rules restrict any use of the information to criminally investigate or prosecute any alcohol or drug abuse patient.[facility] HospitalIn the event this information is protected by the Federal Confidentiality of Alcohol and Drug Abuse Patient Records regulations: The Federal rules restrict any use of the information to criminally investigate or prosecute any alcohol or drug abuse patient.[facility] HospitalIn the event this information is protected by the Federal Confidentiality of Alcohol and Drug Abuse Patient Records regulations: The Federal rules restrict any use of the information to criminally investigate or prosecute any alcohol or drug abuse patient.[facility] HospitalIn the event this information is protected by the Federal Confidentiality of Alcohol and Drug Abuse Patient Records regulations: The Federal rules restrict any use of the information to criminally investigate or prosecute any alcohol or drug abuse patient.[facility] HospitalIn the event this information is protected by the Federal Confidentiality of Alcohol and Drug Abuse Patient Records regulations: The Federal rules restrict any use of the information to criminally investigate or prosecute any alcohol or drug abuse patient.[facility] HospitalIn the event this information is protected by the Federal Confidentiality of Alcohol and Drug Abuse Patient Records regulations: The Federal rules restrict any use of the information to criminally investigate or prosecute any alcohol or drug abuse patient.[facility] HospitalIn the event this information is protected by the Federal Confidentiality of Alcohol and Drug Abuse Patient Records regulations: The Federal rules restrict any use of the information to criminally investigate or prosecute any alcohol or drug abuse patient.[facility] HospitalIn the event this information is protected by the Federal Confidentiality of Alcohol and Drug Abuse Patient Records regulations: The Federal rules restrict any use of the information to criminally investigate or prosecute any alcohol or drug abuse patient.[facility] HospitalIn the event this information is protected by the Federal Confidentiality of Alcohol and Drug Abuse Patient Records regulations: The Federal rules restrict any use of the information to criminally investigate or prosecute any alcohol or drug abuse patient.[facility] HospitalIn the event this information is protected by the Federal Confidentiality of Alcohol and Drug Abuse Patient Records regulations: The Federal rules restrict any use of the information to criminally investigate or prosecute any alcohol or drug abuse patient.[facility] HospitalIn the event this information is protected by the Federal Confidentiality of Alcohol and Drug Abuse Patient Records regulations: The Federal rules restrict any use of the information to criminally investigate or prosecute any alcohol or drug abuse patient.[facility] HospitalIn the event this information is protected by the Federal Confidentiality of Alcohol and Drug Abuse Patient Records regulations: The Federal rules restrict any use of the information to criminally investigate or prosecute any alcohol or drug abuse patient.[facility] HospitalIn the event this information is protected by the Federal Confidentiality of Alcohol and Drug Abuse Patient Records regulations: The Federal rules restrict any use of the information to criminally investigate or prosecute any alcohol or drug abuse patient.[facility] HospitalIn the event this information is protected by the Federal Confidentiality of Alcohol and Drug Abuse Patient Records regulations: The Federal rules restrict any use of the information to criminally investigate or prosecute any alcohol or drug abuse patient.[facility] HospitalIn the event this information is protected by the Federal Confidentiality of Alcohol and Drug Abuse Patient Records regulations: The Federal rules restrict any use of the information to criminally investigate or prosecute any alcohol or drug abuse patient.[facility] HospitalIn the event this information is protected by the Federal Confidentiality of Alcohol and Drug Abuse Patient Records regulations: The Federal rules restrict any use of the information to criminally investigate or prosecute any alcohol or drug abuse patient.[facility] HospitalIn the event this information is protected by the Federal Confidentiality of Alcohol and Drug Abuse Patient Records regulations: The Federal rules restrict any use of the information to criminally investigate or prosecute any alcohol or drug abuse patient.[facility] HospitalIn the event this information is protected by the Federal Confidentiality of Alcohol and Drug Abuse Patient Records regulations: The Federal rules restrict any use of the information to criminally investigate or prosecute any alcohol or drug abuse patient.[facility]In the event this information is protected by the Federal Confidentiality of Alcohol and Drug Abuse Patient Records regulations: The Federal rules restrict any use of the information to criminally investigate or prosecute any alcohol or drug abuse patient.[facility] HospitalIn the event this information is protected by the Federal Confidentiality of Alcohol and Drug Abuse Patient Records regulations: The Federal rules restrict any use of the information to criminally investigate or prosecute any alcohol or drug abuse patient.[facility] HospitalIn the event this information is protected by the Federal Confidentiality of Alcohol and Drug Abuse Patient Records regulations: The Federal rules restrict any use of the information to criminally investigate or prosecute any alcohol or drug abuse patient.[facility] HospitalIn the event this information is protected by the Federal Confidentiality of Alcohol and Drug Abuse Patient Records regulations: The Federal rules restrict any use of the information to criminally investigate or prosecute any alcohol or drug abuse patient.[facility] HospitalIn the event this information is protected by the Federal Confidentiality of Alcohol and Drug Abuse Patient Records regulations: The Federal rules restrict any use of the information to criminally investigate or prosecute any alcohol or drug abuse patient.[facility] HospitalIn the event this information is protected by the Federal Confidentiality of Alcohol and Drug Abuse Patient Records regulations: The Federal rules restrict any use of the information to criminally investigate or prosecute any alcohol or drug abuse patient.[facility] HospitalIn the event this information is protected by the Federal Confidentiality of Alcohol and Drug Abuse Patient Records regulations: The Federal rules restrict any use of the information to criminally investigate or prosecute any alcohol or drug abuse patient.[facility] HospitalIn the event this information is protected by the Federal Confidentiality of Alcohol and Drug Abuse Patient Records regulations: The Federal rules restrict any use of the information to criminally investigate or prosecute any alcohol or drug abuse patient.[facility] HospitalIn the event this information is protected by the Federal Confidentiality of Alcohol and Drug Abuse Patient Records regulations: The Federal rules restrict any use of the information to criminally investigate or prosecute any alcohol or drug abuse patient.[facility] HospitalIn the event this information is protected by the Federal Confidentiality of Alcohol and Drug Abuse Patient Records regulations: The Federal rules restrict any use of the information to criminally investigate or prosecute any alcohol or drug abuse patient.[facility] HospitalIn the event this information is protected by the Federal Confidentiality of Alcohol and Drug Abuse Patient Records regulations: The Federal rules restrict any use of the information to criminally investigate or prosecute any alcohol or drug abuse patient.[facility] HospitalIn the event this information is protected by the Federal Confidentiality of Alcohol and Drug Abuse Patient Records regulations: The Federal rules restrict any use of the information to criminally investigate or prosecute any alcohol or drug abuse patient.[facility] HospitalIn the event this information is protected by the Federal Confidentiality of Alcohol and Drug Abuse Patient Records regulations: The Federal rules restrict any use of the information to criminally investigate or prosecute any alcohol or drug abuse patient.[facility] HospitalIn the event this information is protected by the Federal Confidentiality of Alcohol and Drug Abuse Patient Records regulations: The Federal rules restrict any use of the information to criminally investigate or prosecute any alcohol or drug abuse patient.[facility] HospitalIn the event this information is protected by the Federal Confidentiality of Alcohol and Drug Abuse Patient Records regulations: The Federal rules restrict any use of the information to criminally investigate or prosecute any alcohol or drug abuse patient.[facility] HospitalIn the event this information is protected by the Federal Confidentiality of Alcohol and Drug Abuse Patient Records regulations: The Federal rules restrict any use of the information to criminally investigate or prosecute any alcohol or drug abuse patient.[facility] HospitalIn the event this information is protected by the Federal Confidentiality of Alcohol and Drug Abuse Patient Records regulations: The Federal rules restrict any use of the information to criminally investigate or prosecute any alcohol or drug abuse patient.[facility] HospitalIn the event this information is protected by the Federal Confidentiality of Alcohol and Drug Abuse Patient Records regulations: The Federal rules restrict any use of the information to criminally investigate or prosecute any alcohol or drug abuse patient.[facility] HospitalIn the event this information is protected by the Federal Confidentiality of Alcohol and Drug Abuse Patient Records regulations: The Federal rules restrict any use of the information to criminally investigate or prosecute any alcohol or drug abuse patient.[facility] HospitalIn the event this information is protected by the Federal Confidentiality of Alcohol and Drug Abuse Patient Records regulations: The Federal rules restrict any use of the information to criminally investigate or prosecute any alcohol or drug abuse patient.[facility] HospitalIn the event this information is protected by the Federal Confidentiality of Alcohol and Drug Abuse Patient Records regulations: The Federal rules restrict any use of the information to criminally investigate or prosecute any alcohol or drug abuse patient.[facility] HospitalIn the event this information is protected by the Federal Confidentiality of Alcohol and Drug Abuse Patient Records regulations: The Federal rules restrict any use of the information to criminally investigate or prosecute any alcohol or drug abuse patient.[facility] HospitalIn the event this information is protected by the Federal Confidentiality of Alcohol and Drug Abuse Patient Records regulations: The Federal rules restrict any use of the information to criminally investigate or prosecute any alcohol or drug abuse patient.[facility] HospitalIn the event this information is protected by the Federal Confidentiality of Alcohol and Drug Abuse Patient Records regulations: The Federal rules restrict any use of the information to criminally investigate or prosecute any alcohol or drug abuse patient.[facility] HospitalIn the event this information is protected by the Federal Confidentiality of Alcohol and Drug Abuse Patient Records regulations: The Federal rules restrict any use of the information to criminally investigate or prosecute any alcohol or drug abuse patient.[facility] HospitalIn the event this information is protected by the Federal Confidentiality of Alcohol and Drug Abuse Patient Records regulations: The Federal rules restrict any use of the information to criminally investigate or prosecute any alcohol or drug abuse patient.[facility] HospitalIn the event this information is protected by the Federal Confidentiality of Alcohol and Drug Abuse Patient Records regulations: The Federal rules restrict any use of the information to criminally investigate or prosecute any alcohol or drug abuse patient.[facility] HospitalIn the event this information is protected by the Federal Confidentiality of Alcohol and Drug Abuse Patient Records regulations: The Federal rules restrict any use of the information to criminally investigate or prosecute any alcohol or drug abuse patient.[facility] HospitalIn the event this information is protected by the Federal Confidentiality of Alcohol and Drug Abuse Patient Records regulations: The Federal rules restrict any use of the information to criminally investigate or prosecute any alcohol or drug abuse patient.[facility] HospitalIn the event this information is protected by the Federal Confidentiality of Alcohol and Drug Abuse Patient Records regulations: The Federal rules restrict any use of the information to criminally investigate or prosecute any alcohol or drug abuse patient.[facility] HospitalIn the event this information is protected by the Federal Confidentiality of Alcohol and Drug Abuse Patient Records regulations: The Federal rules restrict any use of the information to criminally investigate or prosecute any alcohol or drug abuse patient.[facility] HospitalIn the event this information is protected by the Federal Confidentiality of Alcohol and Drug Abuse Patient Records regulations: The Federal rules restrict any use of the information to criminally investigate or prosecute any alcohol or drug abuse patient.[facility] HospitalIn the event this information is protected by the Federal Confidentiality of Alcohol and Drug Abuse Patient Records regulations: The Federal rules restrict any use of the information to criminally investigate or prosecute any alcohol or drug abuse patient.[facility] HospitalIn the event this information is protected by the Federal Confidentiality of Alcohol and Drug Abuse Patient Records regulations: The Federal rules restrict any use of the information to criminally investigate or prosecute any alcohol or drug abuse patient.[facility] HospitalIn the event this information is protected by the Federal Confidentiality of Alcohol and Drug Abuse Patient Records regulations: The Federal rules restrict any use of the information to criminally investigate or prosecute any alcohol or drug abuse patient.[facility] HospitalIn the event this information is protected by the Federal Confidentiality of Alcohol and Drug Abuse Patient Records regulations: The Federal rules restrict any use of the information to criminally investigate or prosecute any alcohol or drug abuse patient.[facility] HospitalIn the event this information is protected by the Federal Confidentiality of Alcohol and Drug Abuse Patient Records regulations: The Federal rules restrict any use of the information to criminally investigate or prosecute any alcohol or drug abuse patient.[facility] HospitalIn the event this information is protected by the Federal Confidentiality of Alcohol and Drug Abuse Patient Records regulations: The Federal rules restrict any use of the information to criminally investigate or prosecute any alcohol or drug abuse patient.[facility] HospitalIn the event this information is protected by the Federal Confidentiality of Alcohol and Drug Abuse Patient Records regulations: The Federal rules restrict any use of the information to criminally investigate or prosecute any alcohol or drug abuse patient.[facility] HospitalIn the event this information is protected by the Federal Confidentiality of Alcohol and Drug Abuse Patient Records regulations: The Federal rules restrict any use of the information to criminally investigate or prosecute any alcohol or drug abuse patient.[facility] HospitalIn the event this information is protected by the Federal Confidentiality of Alcohol and Drug Abuse Patient Records regulations: The Federal rules restrict any use of the information to criminally investigate or prosecute any alcohol or drug abuse patient.[facility] Reason for Visit (unrecogniz ed section and content) Reason Comments Results Reason Comments Erroneous encounter-disregard Reason Onset Date Comments Refill Request 02/05/2022 Reason Comments Radiology US Specialty Diagnoses / Procedures Referred By Contac t Referred To Contact US IMAGING Diagnoses Renal cyst Procedures US KIDNEY/BLADDER US RETROPERITONEAL REAL TIME W/IMAGE COMPLETE Clarice Petersen MD [address] [place] [address] Us Imaging Referral ID Status Reason Start Date Expiration Date V isits Requested Visits Authorized [id number] Closed Auto-Generate d Referral 01/24/2022 02/23/2023 1 1 Reason Comments Diabetes Specialty Diagnoses / Procedures Referred By Contac t Referred To Contact Ophthalmology Diagnoses Type 2 diabetes mellitus with peripheral neuropathy (HCC) Procedures CONSULT TO OPHTHALMOLOGY OFFICE/OUTPATIENT [facility] 60-74 MINUTES Clarice Petersen MD [address] [place] [address] Referral ID Status Reason Start Date Expiration Date V isits Requested Visits Authorized [id number] Closed PCP Requested Referral 01/24/2022 01/24/2023 1 1 Reason Comments Spirometry Specialty Diagnoses / Procedures Referred By Contac t Referred To Contact [facility] Diagnoses Mild persistent asthma without complication Procedures SPIROMETRY WITH DILATOR IF OBSTRUCTED BRNCDILAT RSPSE SPMTRY PRE&POST-BRNCDILAT ADMN Barbie Ruiz MD [address] [place] [address] [facility] [place] [address] [place] [id number] Referral ID Status Reason Start Date Expiration Date V isits Requested Visits Authorized [id number] Closed Auto-Generate d Referral 02/28/2022 03/30/2023 1 1 Specialty Diagnoses / Procedures Referred By Contac t Referred To Contact [facility] Diagnoses Mild persistent asthma without complication Procedures NITRIC OXIDE, EXHALED NITRIC OXIDE GAS DETERMINATION Barbie Ruiz MD [address] [place] [address] [facility] [place] [address] [place] [id number] Referral ID Status Reason Start Date Expiration Date V isits Requested Visits Authorized [id number] Closed Auto-Generate d Referral 02/28/2022 03/30/2023 1 1 Reason Comments Asthma Specialty Diagnoses / Procedures Referred By Contac t Referred To Contact Pulmonary and Critical Care Medicine Diagnoses Pulmonary HTN (HCC) Chronic obstructive pulmonary disease, unspecified COPD type (HCC) Lung nodules Procedures CONSULT TO PULM/CRITICAL CARE OFFICE/OUTPATIENT [facility] 60-74 MINUTES Clarice Petersen MD [address] [place] [address] Referral ID Status Reason Start Date Expiration Date V isits Requested Visits Authorized [id number] Closed PCP Requested Referral 01/24/2022 01/24/2023 1 [...] right shoulder Procedures CONSULT TO ORTHOPAEDICS OFFICE/OUTPATIENT NEW HIGH MDM 60-74 MINUTES Carolina Mirza PA-C [address] [place] [address] Referral ID Status Reason Start Date Expiration Date V isits Requested Visits Authorized [id number] Closed PCP Requested Referral 04/03/2023 04/01/2024 1 [...] REAL TIME W/IMAGE LIMITED Clarice Petersen MD [address] [place] [address] [place] [address] Referral ID Status Reason Start Date Expiration Date V isits Requested Visits Authorized [id number] Closed Auto-Generate d Referral 02/20/2023 03/21/2024 1 1 Reason Comments Radiology NM Specialty Diagnoses / Procedures Referred By Contac t Referred To Contact MOLECULAR & FUNCTIONAL IMAGING Diagnoses Encounter for screening for cardiovascular disorders Chest pain, unspecified type Procedures NM CARDIAC PERF STRESS/PHARM MYOCARDIAL SPECT MULTIPLE STUDIES Carolina Mirza PA-C [address] [place] [address] Molecular & Functional Imaging [address] [place] [id number] Referral ID Status Reason Start Date Expiration Date V isits Requested Visits Authorized [id number] Closed Auto-Generate d Referral 04/01/2023 04/30/2024 1 1 Reason Comments 6 Month Exam Reason Comments New Patient Specialty Diagnoses / Procedures Referred By Marcelo t Referred To Contact Diagnoses Encounter for screening for lung cancer Procedures CONSULT LUNG CANCER SCREENING CLINIC Carolina Mirza PA-C [address] [place] [address] Referral ID Status Reason Start Date Expiration Date Visits Requested Visits Authorized [id number] Ref Not Required PCP Requested Referral 3 12/28/2023 1 1 Specialty Diagnoses / Procedures Referred By Marcelo benedict Referred To Contact [facility] IMAGING Diagnoses Syncope and collapse Abnormal CT of brain Procedures MRI BRAIN WO/W IVCON MRI BRAIN BRAIN STEM W/O W/CONTRAST MATERIAL MarbellalogarSahra APRN.[employer]PERVISOR [address] [place] [address] [place] [address] Referral ID Status Reason Start Date Expiration Date V isits Requested Visits Authorized [id number] Closed Auto-Generate d Referral 09/12/2023 10/11/2024 1 1 Reason Onset Date Comments Refill Request 10/16/2023 Reason Comments Insurance Authorization Reason Comments Appointment [facility] CT Scan Reason Onset Date Comments Refill Request 12/17/2023 Reason Onset Date Comments Refill Request 12/17/2023 Reason Onset Date Comments Population Health Navigation Outreach 01/31/2024 [facility] Annual Wellness Visit Reason Comments Medication Request Reason Comments Consult Specialty Diagnoses / Procedures Referred By Marcelo t Referred To Contact General Surgery / GENERAL SURGERY Diagnoses Thyroid nodule THYROID NODULE - U/S 01/08/2024 1.6 CM RIGHT SIDED NODULE - PCP REFERRING - IN SCANNED DOC Procedures OFFICE/OUTPATIENT NEW HIGH MDM 60 MINUTES NEW DDI PATIENT Jake Raymond MD [address] [place] [address] Pelon Winchester MD [address] [place] [address] Referral ID Status Reason Start Date Expiration Date V isits Requested Visits Authorized [id number] Authorized 02/05/2024 11/09/2024 99 99 Reason Comments Procedure Fna of right thyroid Specialty Diagnoses / Procedures Referred By Contac t Referred To Contact General Surgery / GENERAL SURGERY Diagnoses 30 min fna right thyroid Procedures SURGERY 30 Pelon Winchester MD [address] [place] [address] Pelon Winchester MD [address] [place] [address] Referral ID Status Reason Start Date Expiration Date Visits Re quested Visits Authorized [id number] Closed 04/12/2024 11/09/2024 1 1 Reason Comments Follow Up Specialty Diagnoses / Procedures Referred By Contac t Referred To Contact General Surgery / GENERAL SURGERY Diagnoses Follow up Procedures EST DDI PATIENT Pelon Winchester MD [address] [place] [address] Pelon Winchester MD [address] [place] [address] Referral ID Status Reason Start Date Expiration Date Visits Re quested Visits Authorized [id number] Closed 04/21/2024 11/09/2024 1 1 Reason Comments New Patient Specialty Diagnoses / Procedures Referred By Contac t Referred To Contact Hematology/Oncology / HEMATOLOGY/ONCOLOGY Diagnoses new patient ref by Jake Raymond for Monoclonel Gammopathy* Procedures NEW PATIENT Self Cristhian Smith DO [address] [place] [address] Referral ID Status Reason Start Date Expiration Date V isits Requested Visits Authorized [id number] Authorized 06/02/2024 11/09/2024 99 99 Reason Comments Patient Question Reason Comments Established Patient Specialty Diagnoses / Procedures Referred By Contac t Referred To Contact Hematology/Oncology / HEMATOLOGY/ONCOLOGY Diagnoses new patient ref by Jake Raymond for Monoclonel Gammopathy* Procedures NEW PATIENT Self Cristhian Smith, DO [address] [place] [address] Reason Onset Date Comments Refill Request 06/28/2024 Reason Onset Date Comments Refill Request 07/06/2024 Specialty Diagnoses / Procedures Referred By Contac t Referred To Contact MR IMAGING Diagnoses Monoclonal gammopathy Procedures MRI PELVIS ORTHO GENERAL WO/W IVCON MRI ANY JT LOWER EXTREM W/O & W/CONTRAST MATRL Cristhian Smith, DO [address] [place] [address] [place] [address] Referral ID Status Reason Start Date Expiration Date V isits Requested Visits Authorized [id number] Closed Auto-Generate d Referral 06/28/2024 07/28/2025 1 1 Specialty Diagnoses / Procedures Referred By Contac t Referred To Contact MR IMAGING Diagnoses Monoclonal gammopathy Procedures MRI THORACIC SPINE WO/W IVCON MRI SPINAL CANAL THORACIC W/O & W/CONTR MATRL Cristhian Smith, DO [address] [place] [address] [place] [address] Referral ID Status Reason Start Date Expiration Date V isits Requested Visits Authorized [id number] Closed Auto-Generate d Referral 06/28/2024 07/28/2025 1 1 Specialty Diagnoses / Procedures Referred By Contac t Referred To Contact MR IMAGING Diagnoses Monoclonal gammopathy Procedures MRI LUMBAR SPINE WO/W IVCON MRI SPINAL CANAL LUMBAR W/O & W/CONTR MATRL Cristhian Smith, DO [address] [place] [address] [place] [address] Referral ID Status Reason Start Date Expiration Date V isits Requested Visits Authorized [id number] Closed Auto-Generate d Referral 06/28/2024 07/28/2025 1 1 Specialty Diagnoses / Procedures Referred By Contac t Referred To Contact MR IMAGING Diagnoses Monoclonal gammopathy Procedures MRI CERVICAL SPINE WO/W IVCON MRI SPINAL CANAL CERVICAL W/O & W/CONTR MATRL Cristhian Smith, DO [address] [place] [address] [place] [address] Referral ID Status Reason Start Date Expiration Date V isits Requested Visits Authorized [id number] Closed Auto-Generate d Referral 06/28/2024 07/28/2025 1 1 Reason Comments Procedure BMBX Reason Onset Date Comments Refill Request 08/10/2024 Reason Comments Patient appt/question Reason Comments Established Patient Specialty Diagnoses / Procedures Referred By Alizaac t Referred To Contact Hematology/Oncology / HEMATOLOGY/ONCOLOGY Diagnoses OV/MRI 07/29/BMBX 08/05* Procedures EST COMPLEX Cristhian Smith DO [address] [place] [address] Cristhian Smith, DO [address] [place] [address] Referral ID Status Reason Start Date Expiration Date Visits Re quested Visits Authorized [id number] Closed 08/17/2024 11/09/2024 1 1 Reason Comments Sore Throat ERVIN x1 month Reason Onset Date Comments Population Health Navigation Outreach 12/17/2024 [employer] Unknown PCP Reason Onset Date Comments Allied Health Visit 02/08/2025 Medication A dherence Outreach Reason Onset Date Comments Allied Health Visit 02/10/2025 Medication A dherence Outreach Specialty Diagnoses / Procedures Referred By Alizaac t Referred To Contact Hematology/Oncology / HEMATOLOGY/ONCOLOGY Diagnoses 6 MO OV/LABS 02/10* Procedures OFFICE/OUTPATIENT ESTABLISHED SF MDM 10 MIN OFFICE/OUTPATIENT ESTABLISHED LOW MDM 20 MIN OFFICE/OUTPATIENT ESTABLISHED MOD MDM 30 MIN OFFICE/OUTPATIENT ESTABLISHED HIGH MDM 40 MIN EST SIMPLE Cristhian Smith, DO [address] [place] [address] Phone: tel: Cristhian Smith, DO [address] [place] [address] Phone: tel: fax: Referral ID Status Reason Start Date Expiration Date Visits Re quested Visits Authorized [id number] Closed 02/18/2025 11/09/2025 1 1 Reason Onset Date Comments Allied Health Visit 03/10/2025 Medication A dherence Outreach Reason Comments Returning Patient's Call Care Teams (unrecognized sec tion and content) Slip Cover Operator Relationship Specialty Start Date End Date Clarice Petersen MD [address] [place] [address] PCP - General Family Practice 08/17/12 Slip Cover Operator Relationship Specialty Start Date End Date Clarice Petersen MD [address] [place] [address] PCP - General Family Practice 08/17/12 Slip Cover Operator Relationship Specialty Start Date End Date Clarice Petersen MD [address] [place] [address] PCP - General Family Practice 08/17/12 Slip Cover Operator Relationship Specialty Start Date End Date Clarice Petersen MD [address] [facility] [place] [address] PCP - General Family Practice 08/17/12 Slip Cover Operator Relationship Specialty Start Date End Date Clarice Petersen MD [address] [place] [address] PCP - General Family Practice 08/17/12 Slip Cover Operator Relationship Specialty Start Date End Date Clarice Petersen MD [address] [facility] [place] [address] PCP - General Family Practice 08/17/12 Slip Cover Operator Relationship Specialty Start Date End Date Clarice Petersen MD [address] [place] [address] PCP - General Family Practice 08/17/12 Slip Cover Operator Relationship Specialty Start Date End Date Clarice Petersen MD [address] [place] [address] PCP - General Family Practice 08/17/12 Slip Cover Operator Relationship Specialty Start Date End Date Clarice Petersen MD [address] [place] [address] PCP - General Family Practice 08/17/12 Slip Cover Operator Relationship Specialty Start Date End Date Clarice Petersen MD [address] [place] [address] PCP - General Family Practice 08/17/12 Slip Cover Operator Relationship Specialty Start Date End Date Clarice Petersen MD [address] [place] [address] PCP - General Family Practice 08/17/12 Slip Cover Operator Relationship Specialty Start Date End Date Clarice Petersen MD [address] [place] [address] PCP - General Family Practice 08/17/12 Slip Cover Operator Relationship Specialty Start Date End Date Clarice Petersen MD [address] [place] [address] PCP - General Family Practice 08/17/12 Slip Cover Operator Relationship Specialty Start Date End Date Clarice Petersen MD [address] [place] [address] PCP - General Family Practice 08/17/12 Slip Cover Operator Relationship Specialty Start Date End Date Clarice Petersen MD [address] [place] [address] PCP - General Family Practice 08/17/12 Slip Cover Operator Relationship Specialty Start Date End Date Clarice Petersen MD [address] [place] [address] PCP - General Family Practice 08/17/12 Slip Cover Operator Relationship Specialty Start Date End Date Clarice Petersen MD [address] [place] [address] PCP - General Family Medicine 08/17/12 Slip Cover Operator Relationship Specialty Start Date End Date Clarice Petersen MD [address] [place] [address] PCP - General Family Medicine 08/17/12 Slip Cover Operator Relationship Specialty Start Date End Date Clarice Petersen MD [address] [place] [address] PCP - General Family Medicine 08/17/12 Slip Cover Operator Relationship Specialty Start Date End Date Clarice Petersen MD [address] [place] [address] PCP - General Family Medicine 08/17/12 Slip Cover Operator Relationship Specialty Start Date End Date Clarice Petersen MD [address] [place] [address] PCP - General Family Medicine 08/17/12 Slip Cover Operator Relationship Specialty Start Date End Date Clarice Petersen MD [address] [place] [address] PCP - General Family Medicine 08/17/12 Slip Cover Operator Relationship Specialty Start Date End Date Clarice Petersen MD [address] [place] [address] PCP - General Family Medicine 08/17/12 Slip Cover Operator Relationship Specialty Start Date End Date Clarice Petersen MD [address] [place] [address] PCP - General Family Medicine 08/17/12 Slip Cover Operator Relationship Specialty Start Date End Date Clarice Petersen MD [address] [place] [address] PCP - General Family Medicine 08/17/12 Slip Cover Operator Relationship Specialty Start Date End Date Clarice Petersen MD [address] [place] [address] PCP - General Family Medicine 08/17/12 Slip Cover Operator Relationship Specialty Start Date End Date Clarice Petersen MD [address] [place] [address] PCP - General Family Medicine 08/17/12 Team [...] Dr. Satya Cotton MD Emergency Provider Active Slip Cover Operator Relationship Specialty Start Date End Date Clarice Petersen MD [address] [place] [address] PCP - General Family Medicine 08/17/12 Slip Cover Operator Relationship Specialty Start Date End Date Clarice Petersen MD [address] [place] [address] PCP - General Family Medicine 08/17/12 Slip Cover Operator Relationship Specialty Start Date End Date Clarice Petersen MD [address] [place] [address] PCP - General Family Medicine 08/17/12 Slip Cover Operator Relationship Specialty Start Date End Date Clarice Petersen MD [address] [place] [address] PCP - General Family Medicine 08/17/12 Slip Cover Operator Relationship Specialty Start Date End Date Clarice Petersen MD [address] [place] [address] PCP - General Family Medicine 08/17/12 Slip Cover Operator Relationship Specialty Start Date End Date Clarice Petersen MD [address] [place] [address] PCP - General Family Medicine 08/17/12 Slip Cover Operator Relationship Specialty Start Date End Date Clarice Petersen MD [address] [place], [place] [address] PCP - General Family Medicine 08/17/12 Slip Cover Operator Relationship Specialty Start Date End Date Clarice Petersen MD [address] [place], [place] [address] PCP - General Family Medicine 08/17/12 Slip Cover Operator Relationship Specialty Start Date End Date lCarice Petersen MD [address] [place], [place] [address] PCP - General Family Medicine 08/17/12 Slip Cover Operator Relationship Specialty Start Date End Date Clarice Petersen MD [address] [place] [address] PCP - General Family Medicine 08/17/12 Slip Cover Operator Relationship Specialty Start Date End Date Clarice Petersen MD [address] [place], [place] [address] PCP - General Family Medicine 08/17/12 Slip Cover Operator Relationship Specialty Start Date End Date Clarice Petersen MD [address] [place] [address] PCP - General Family Medicine 08/17/12 Slip Cover Operator Relationship Specialty Start Date End Date Clarice Petersen MD [address] [place], [place] [address] PCP - General Family Medicine 08/17/12 Slip Cover Operator Relationship Specialty Start Date End Date Clarice Petersen MD [address] [place], [place] [address] PCP - General Family Medicine 08/17/12 Slip Cover Operator Relationship Specialty Start Date End Date Clarice Petersen MD [address] [place], [place] [address] PCP - General Family Medicine 08/17/12 Slip Cover Operator Relationship Specialty Start Date End Date Carolina Mirza PA-C [address] [place] [address] PCP - General Family Medicine 09/29/23 Slip Cover Operator Relationship Specialty Start Date End Date Carolina Mirza PA-C [address] [place] [address] PCP - General Family Medicine 09/29/23 Slip Cover Operator Relationship Specialty Start Date End Date Carolina Mirza PA-C [address] [place] [address] PCP - General Family Medicine 09/29/23 Barbie Ruiz MD [address] [place] [address] Pulmonary and Critical Care Medicine 10/14/23 Slip Cover Operator Relationship Specialty Start Date End Date Carolina Mirza PA-C [address] [place] [address] PCP - General Family Medicine 09/29/23 Barbie Ruiz MD [address] [address] Pulmonary and Critical Care Medicine 10/14/23 Slip Cover Operator Relationship Specialty Start Date End Date Carolina Mirza PA-C [address] [place] [address] PCP - General Family Medicine 09/29/23 Barbie Ruiz MD [address] [address] Pulmonary and Critical Care Medicine 10/14/23 Slip Cover Operator Relationship Specialty Start Date End Date Carolina Mirza PA-C [address] [place] [address] PCP - General Family Medicine 09/29/23 Barbie Ruiz MD [address] [place] [address] Pulmonary and Critical Care Medicine 10/14/23 Slip Cover Operator Relationship Specialty Start Date End Date Carolina Mirza PA-C [address] [place] [address] PCP - General Family Medicine 09/29/23 Barbie Ruiz MD [address] [place] [address] Pulmonary and Critical Care Medicine 10/14/23 Slip Cover Operator Relationship Specialty Start Date End Date Carolina Mirza PA-C [address] [place] [address] PCP - General Family Medicine 09/29/23 Barbie Ruiz MD [address] [place] [address] Pulmonary and Critical Care Medicine 10/14/23 Slip Cover Operator Relationship Specialty Start Date End Date Carolina Mirza PA-C [address] [place] [address] PCP - General Family Medicine 09/29/23 Barbie Ruiz MD [address] [facility] [place] [address] Pulmonary and Critical Care Medicine 10/14/23 Slip Cover Operator Relationship Specialty Start Date End Date Carolina Mirza PA-C [address] [place] [address] PCP - General Family Medicine 09/29/23 Barbie Ruiz MD [address] [address] Pulmonary and Critical Care Medicine 10/14/23 Team Status: Active Member Role Status Dates Dr. Clarice Petersen MD Family Provider Active Dr. Jake Raymond MD Primary Care Provider Active Team Status: Inactive Member Role Status Dates Dr. Jake Raymond MD Primary Care Pr ovider, Attending Provider, Referring Provider Active Team Status: Inactive Member Role Status Dates Dr. Jake Raymond MD Primary Care Provider, Attend ing Provider Active Slip Cover Operator Relationship Specialty Start Date End Date Jake Raymond MD [address] [email or web address] [address] [place] [address] PCP - General Family Medicine 01/14/24 Barbie Ruiz MD [address] [place] [address] Pulmonary and Critical Care Medicine 10/14/23 Slip Cover Operator Relationship Specialty Start Date End Date Jake Raymond MD [address] [facility] [address] [place] [address] PCP - General Family Medicine 01/14/24 Barbie Ruiz MD [address] [place] [address] Pulmonary and Critical Care Medicine 10/14/23 Slip Cover Operator Relationship Specialty Start Date End Date Jake Raymond MD [address] [place] [address] PCP - General Family Medicine 01/14/24 Barbie Ruiz MD [address] [place] [address] Pulmonary and Critical Care Medicine 10/14/23 Slip Cover Operator Relationship Specialty Start Date End Date Jake Raymond MD [address] [place] [address] PCP - General Family Medicine 01/14/24 Barbie Ruiz MD [address] [place] [address] Pulmonary and Critical Care Medicine 10/14/23 Slip Cover Operator Relationship Specialty Start Date End Date Jake Raymond MD [address] [place] [address] PCP - General Family Medicine 01/14/24 Barbie Ruiz MD [address] [place] [address] Pulmonary and Critical Care Medicine 10/14/23 Slip Cover Operator Relationship Specialty Start Date End Date Jake Raymond MD [address] [place] [address] PCP - General Family Medicine 01/14/24 Barbie Ruiz MD [address] [place] [address] Pulmonary and Critical Care Medicine 10/14/23 Slip Cover Operator Relationship Specialty Start Date End Date Hemanth Carranza MD [address] [place] [address] PCP - General Family Medicine 06/24/24 Barbie Ruiz MD [address] [address] Pulmonary and Critical Care Medicine 10/14/23 Slip Cover Operator Relationship Specialty Start Date End Date Hemanth Carranza MD [address] [place] [address] PCP - General Family Medicine 06/24/24 Barbie Ruiz MD [address] [address] Pulmonary and Critical Care Medicine 10/14/23 Slip Cover Operator Relationship Specialty Start Date End Date Hemanth Carranza MD [address] [place] [address] PCP - General Family Medicine 06/24/24 Barbie Ruiz MD [address] [address] Pulmonary and Critical Care Medicine 10/14/23 Slip Cover Operator Relationship Specialty Start Date End Date Hemanth Carranza MD [address] [place] [address] PCP - General Family Medicine 06/24/24 Barbie Ruiz MD [address] [place] [address] Pulmonary and Critical Care Medicine 10/14/23 Slip Cover Operator Relationship Specialty Start Date End Date Hemanth Carranza MD [address] [place] [address] PCP - General Family Medicine 06/24/24 Barbie Ruiz MD [address] [place] [address] Pulmonary and Critical Care Medicine 10/14/23 Slip Cover Operator Relationship Specialty Start Date End Date Hemanth Carranza MD [address] [place] [address] PCP - General Family Medicine 06/24/24 Barbie Ruiz MD [address] [place] [address] Pulmonary and Critical Care Medicine 10/14/23 Slip Cover Operator Relationship Specialty Start Date End Date Hemanth Carranza MD [address] [place] [address] PCP - General Family Medicine 06/24/24 Barbie Ruiz MD [address] [place] [address] Pulmonary and Critical Care Medicine 10/14/23 Slip Cover Operator Relationship Specialty Start Date End Date Hemanth Carranza MD [address] [place] [address] PCP - General Family Medicine 06/24/24 Barbie Ruiz MD [address] [place] [address] Pulmonary and Critical Care Medicine 10/14/23 Slip Cover Operator Relationship Specialty Start Date End Date Clarice Petersen MD [address] [place] [address] PCP - General Family Medicine 08/17/12 09/28/23 Slip Cover Operator Relationship Specialty Start Date End Date Hemanth Carranza MD [address] [place] [address] PCP - General Family Medicine 06/24/24 Barbie Ruiz MD [address] [place] [address] Pulmonary and Critical Care Medicine 10/14/23 Slip Cover Operator Relationship Specialty Start Date End Date Hemanth Carranza MD [address] [place] [address] PCP - General Family Medicine 06/24/24 Barbie Ruiz MD [address] [place] [address] Pulmonary and Critical Care Medicine 10/14/23 Slip Cover Operator Relationship Specialty Start Date End Date Barbie Ruiz MD [address] [place] [address] Pulmonary and Critical Care Medicine 10/14/23 Slip Cover Operator Relationship Specialty Start Date End Date Clarice Petersen MD [address] [place] [address] PCP - General Family Medicine 08/17/12 09/28/23 Slip Cover Operator Relationship Specialty Start Date End Date Clarice Petersen MD [address] [place] [address] PCP - General Family Medicine 08/17/12 09/28/23 Slip Cover Operator Relationship Specialty Start Date End Date Clarice Petersen MD [address] [place] [address] PCP - General Family Medicine 08/17/12 09/28/23 Slip Cover Operator Relationship Specialty Start Date End Date Clarice Petersen MD [address] [place] [address] PCP - General Family Medicine 08/17/12 09/28/23 Slip Cover Operator Relationship Specialty Start Date End Date Barbie Ruiz MD [address] [place] [address] Pulmonary and Critical Care Medicine 10/14/23 Slip Cover Operator Relationship Specialty Start Date End Date Jake Raymond MD [address] [place] [address] PCP - General Family Medicine 01/14/24 06/23/24 Hemanth Carranza MD [address] [place] [address] PCP - General Family Medicine 06/24/24 Barbie Ruiz MD [address] [place] [address] Pulmonary and Critical Care Medicine 10/14/23 Slip Cover Operator Relationship Specialty Start Date End Date Barbie Ruiz MD [address] [place] [address] Pulmonary and Critical Care Medicine 10/14/23 Slip Cover Operator Relationship Specialty Start Date End Date Barbie Ruiz MD [address] [place], [place] [address] Pulmonary and Critical Care Medicine 10/14/23 Slip Cover Operator Relationship Specialty Start Date End Date Barbie Ruiz MD [address] [place], [place] [address] Pulmonary and Critical Care Medicine 10/14/23 PodlogarSahra APRN.[facility] [address] [place] [address] Family Medicine 12/17/24 Team Status: Active Member Role Status Dates Dr. Clarice Petersen MD Family Provider Active No Primary Care Physician Primary Care Provider Active Team Status: Inactive Member Role Status Dates Alexus URBANO, DO Primary Care Provider Active Start: September 30, [...] URBANO, DO Primary Care Provider Active Start: December 28, 2024 End: December 28, 2024 Alexus URBANO, DO Referring Provider Active Start: December 28, [...] January 05, 2025 End: January 05, 2025 Slip Cover Operator Relationship Specialty Start Date End Date Barbie Ruiz MD [address] [place] [address] Pulmonary and Critical Care Medicine 10/14/23 Podlogar, ABEL Bocanegra.FLATWORK SUPERVISOR [address] [place] [address] Family Medicine 12/17/24 Slip Cover Operator Relationship Specialty Start Date End Date Barbie Ruiz MD [address] [place] [address] Pulmonary and Critical Care Medicine 10/14/23 Podlogar, Sahra ARCHITECTURAL REPRESENTATIVE.FLATWORK SUPERVISOR [address] [place] [address] Family Medicine 12/17/24 Slip Cover Operator Relationship Specialty Start Date End Date Dennis Chow MD [address] [place] [address] PCP - General Internal Medicine 02/18/25 Rachel Madden, RADHA [address] [facility] [place] [address] Family Medicine 02/18/25 Slip Cover Operator Relationship Specialty Start Date End Date Dennis Chow MD [address] [facility] [place] [address] PCP - General Internal Medicine 02/18/25 Rachel Madden, RADHA [address] [facility] [address] [place], [place] [address] Family Medicine 02/18/25 Team Status: Active Member Role Status Dates Dr. Dennis Chow MD Primary Care Provider Active Team Status: Inactive Member Role Status Dates Dr. Jake Raymond MD Referring Provider Active Start: February 02, 2025 End: February 02, 2025 Rachel Madden , ROWAN-C Attending Provider Active Start: February 02, 2025 [...] Status: Inactive Member Role Status Dates Rachel Madden NP-C Attending Provider Active Start: March 17, 2025 End: March 17, 2025 GENO NickC Referring Provider Active Start: March 17, 2025 [...] Team Status: Active Member Role Status Dates Rachel Madden NP-C Attending Provider Active Start: March 24, 2025 GENO NickC Referring Provider Active Start: March 24, 2025 Dr. Dennis Chow MD Primary Care Provider Active Start: March 24, 2025 Team Status: Inactive Member Role Status Dates Rachel Madden NP-C Attending Provider Active Start: March 24, 2025 End: March 24, 2025 GENO NickC Referring Provider Active Start: March 24, 2025 End: March 24, 2025 Dr. Dennis Chow MD Primary Care Provider Active Start: March 24, 2025 End: March 24, 2025 Team Status: Active Member Role Status Dates Dr. Dennis Chow MD Primary Care Provider Active Start: March 28, 2025 Rachel Madden NP-C Attending Provider Active Start: March 28, 2025 PERLA Nick Referring Provider Active Start: March 28, 2025 Team Status: Inactive Member Role Status Dates Dr. Dennis Chow MD Primary Care Provider Active Start: March 28, 2025 End: March 28, 2025 PERLA Nick Attending Provider Active Start: March 28, 2025 End: March 28, 2025 PERLA Nick Referring Provider Active Start: March 28, 2025 [...] April 07, 2025 End: April 07, 2025 Slip Cover Operator Relationship Specialty Start Date End Date Dennis Chow MD [address] [place] [address] PCP - General Internal Medicine 02/18/25 Barbie Ruiz MD [address] [place] [address] Pulmonary and Critical Care Medicine 10/14/23 02/17/25 PodlogSahra cunningham APRN.FLATWORK SUPERVISOR [address] [place] [address] Family Medicine 12/17/24 02/17/25 Rachel Madden, RADHA [address] [place] [address] [place] [address] Family Medicine 02/18/25 Team Status: Active Member [...] March 24, 2025 End: March 24, 2025 PERLA Nick Referring Provider [...] March 28, 2025 End: March 28, 2025 GENO NickC Attending Provider Active Start: March 28, 2025 End: March 28, 2025 PERLA Nick Referring Provider Active Start: March 28, 2025 [...] Status: Inactive Member Role/Relationship Status Dates PERLA Ncik Attending Provider Active Start: March 17, 2025 [...] March 24, 2025 End: March 24, 2025 PERLA Nick Referring Provider Active Start: March 24, 2025 End: March 24, 2025 Dr. Dennis Chow MD Primary Care Provider Active Start: March 24, 2025 End: March 24, 2025 Team Status: Active Member Role/Relationship Status Dates Dr. Dennis Chow MD Primary Care Provider Active Start: March 24, 2025 Dr. Mitch Ruiz , Attending Provider Active S tart: March 24, 2025 PERLA Nick Referring Provider Active Start: March 24, 2025 Team Status: Inactive Member Role/Relationship Status Dates Dr. Dennis Chow MD Primary Care Provider Active Start: March 28, 2025 End: March 28, 2025 PERLA Nick Attending Provider Active Start: March 28, 2025 End: March 28, 2025 PERLA Nick Referring Provider Active Start: March 28, 2025 [...] Active Start: 2024 End: June 07, 2025 Team Status: Active Member Role/Relationship Status Dates Dr. Dennis Chow MD Primary Care Provider Active Start: June 10, 2025 Dr. Dao Luciano MD Attending Provider Active Start: June 10, 2025 Dr. Dao Luciano MD Referring Provider Active Start: June 10, 2025 Team Status: Inactive Member Role/Relationship Status Dates Dr. Dennis Chow MD Primary Care Provider Active Start: June 10, 2025 End: June 10, 2025 Dr. Dennis Chow MD Referring Provider Active Start: June 10, 2025 End: June 10, 2025 Dr. Janie Elias MD Attending Provider Active Start: June 10, 2025 End: June 10, 2025 Team Status: Inactive Member Role/Relationship Status Dates Dr. Dennis Chow MD Primary Care Provider Active Start: June 10, 2025 End: June 10, 2025 Dr. Dao Luciano MD Attending Provider Active Start: June 10, 2025 End: June 10, 2025 Dr. Dao Luciano MD Referring Provider Active Start: June 10, 2025 End: June 10, 2025 Team Status: Active Member Role/Relationship Status Dates Dr. Dennis Chow MD Primary Care Provider Active Start: June 10, 2025 Dr. Manolo Kothari MD Attending Provider Active S tart: June 10, 2025 Team Status: Inactive Member Role/Relationship Status Dates Dr. Dennis Chow MD Primary Care Provider Active Start: June 10, 2025 End: June 10, 2025 Dr. Dennis Chow MD Referring Provider Active Start: June 10, 2025 End: June 10, 2025 Dr. Janie Elias MD Attending Provider Active Start: June 10, 2025 End: June 10, 2025 Team Status: Inactive Member Role/Relationship Status Dates Dr. Dennis Chow MD Primary Care Provider Active Start: June 21, 2025 End: June 21, 2025 Dr. Dennis Chow MD Referring Provider Active Start: June 21, 2025 End: June 21, [address] GRADER, ROAD GRADER-C Attending Provider Active Start: June 21, 2025 End: June 21, 2025 Team Status: Inactive Member Role/Relationship Status Dates Dr. Dennis Chow MD Primary Care Provider Active Start: June 07, 2025 End: June 07, 2025 Dr. Dennis Chow MD Attending Provider Active Start: June 07, 2025 End: June 07, 2025 Dr. Dennis Chow MD Referring Provider Active Start: June 07, 2025 End: June 07, 2025 Team Status: Active Member Role/Relationship Status Dates Dr. Dnenis Chow MD Primary Care Provider Active Start: June 21, [address] GRADER, ROAD GRADER-C Attending Provider Active Start: June 21, 2025 Team Status: Inactive Member Role/Relationship Status Dates Dr. Dennis Chow MD Primary Care Provider Active Start: June 27, 2025 End: June 27, 2025 Dr. Dennis Chow MD Attending Provider Active Start: June 27, 2025 End: June 27, 2025 Dr. Dennis Chow MD Referring Provider Active Start: June 27, 2025 End: June 27, 2025 Team Status: Inactive Member Role/Relationship Status Dates Dr. Dennis Chow MD Primary Care Provider Active Start: June 21, 2025 End: June 21, [address] GRADER, ROAD GRADER-C Attending Provider Active Start: June 21, 2025 End: June 21, 2025 Team Status: Active Member Role/Relationship Status Dates Dr. Dennis Chow MD Primary Care Provider Active Start: July 05, 2025 Dr. Dennis Chow MD Referring Provider Active Start: July 05, 2025 Conor Barros MD Attending Provider Active St art: July 05, 2025 Team Status: Inactive Member Role/Relationship Status Dates Dr. Dennis Chow MD Primary Care Provider Active Start: July 05, 2025 End: July 05, 2025 Dr. Manolo Kothari MD Attending Provider Active S tart: July 05, 2025 End: July 05, 2025 Team Status: Inactive Member Role/Relationship Status Dates Dr. Dennis Chow MD Primary Care Provider Active Start: July 05, 2025 End: July 05, 2025 Dr. Dennis Chow MD Referring Provider Active Start: July 05, 2025 End: July 05, 2025 Conor Barros MD Attending Provider Active St art: July 05, 2025 End: July 05, 2025 Team Status: Inactive Member Role/Relationship Status Dates Rachel Madden NP-C Attending Provider Active Start: March 17, 2025 [...] Status: Active Member Role/Relationship Status Dates Dr. eDnnis Chow MD Primary Care Provider Active Start: [...] Active Start: May 21, 2025 Team Status: Active Member Role/Relationship Status [...] June 07, 2025 Dr. Dennis Chow MD Attending Provider Active Start: June 07, 2025 End: June 07, 2025 Dr. Dennis Chow MD Referring Provider Active Start: June 07, 2025 End: June 07, 2025 Team Status: Inactive Member Role/Relationship Status Dates Dr. Dennis Chow MD Primary Care Provider Active Start: June 10, 2025 End: June 10, 2025 Dr. Dao Luciano MD Attending Provider Active Start: June 10, 2025 End: June 10, 2025 Dr. Dao Luciano MD Referring Provider Active Start: June 10, 2025 End: June 10, 2025 Team Status: Active Member Role/Relationship Status Dates Dr. Dennis Chow MD Primary Care Provider Active Start: June 10, 2025 Dr. Manolo Kothari MD Attending Provider Active S tart: June 10, 2025 Team Status: Inactive Member Role/Relationship Status Dates Dr. Dennis Chow MD Primary Care Provider Active Start: June 10, 2025 End: June 10, 2025 Dr. Dennis Chow MD Referring Provider Active Start: June 10, 2025 End: June 10, 2025 Dr. Janie Elias MD Attending Provider Active Start: June 10, 2025 End: June 10, 2025 Team Status: Inactive Member Role/Relationship Status Dates Dr. Dennis Chow MD Primary Care Provider Active Start: June 21, 2025 End: June 21, 2025 Dr. Dennis Chow MD Referring Provider Active Start: June 21, 2025 End: June 21, [address]ADER, ROAD GRADER-C Attending Provider Active Start: June 21, 2025 End: June 21, 2025 Team Status: Inactive Member Role/Relationship Status Dates Dr. Dennis Chow MD Primary Care Provider Active Start: June 21, 2025 End: June 21, [address] GRAD[address], ROAD GRADER-C Attending Provider Active Start: June 21, 2025 End: June 21, 2025 Team Status: Inactive Member Role/Relationship Status Dates Dr. Dennis Chow MD Primary Care Provider Active Start: June 27, 2025 End: June 27, 2025 Dr. Dennis Chow MD Attending Provider Active Start: June 27, 2025 End: June 27, 2025 Dr. Dennis Chow MD Referring Provider Active Start: June 27, 2025 End: June 27, 2025 Team Status: Inactive Member Role/Relationship Status Dates Dr. Dennis Chow MD Primary Care Provider Active Start: July 05, 2025 End: July 05, 2025 Dr. Dennis Chow MD Referring Provider Active Start: July 05, 2025 End: July 05, 2025 Conor Barros MD Attending Provider Active St art: July 05, 2025 End: July 05, 2025 Team Status: Inactive Member Role/Relationship Status Dates Dr. Dennis Chow MD Primary Care Provider Active Start: July 05, 2025 End: July 05, 2025 Dr. Manolo Kothari MD Attending Provider Active S tart: July 05, 2025 End: July 05, 2025 Team Status: Inactive Member Role/Relationship Status Dates Dr. Dennis Chow MD Primary Care Provider Active Start: July 08, 2025 End: July 08, 2025 Dr. Dennis Chow MD Attending Provider Active Start: July 08, 2025 End: July 08, 2025 Dr. Dennis Chow MD Referring Provider Active Start: July 08, 2025 End: July 08, 2025 Team Status: Active Member Role/Relationship Status Dates Dr. Dennis Chow MD Primary Care Provider Active Start: July 14, 2025 Dr. Dennis Chow MD Attending Provider Active Start: July 14, 2025 Team Status: Inactive Member Role/Relationship Status Dates Dr. Dennis Chow MD Primary Care Provider Active Start: March 22, 2025 End: March 22, 2025 Dr. Dennis Chow MD Attending Provider Active Start: March 22, 2025 End: March 22, 2025 Dr. Dennis Chow MD Referring Provider Active Start: March 22, 2025 End: March 22, 2025 Team Status: Inactive Member Role/Relationship Status Dates Rachel M Rufener , ROAD GRADER-C Attending Provider Active Start: March 24, 2025 [...] Referring Provider Active Start: April 04, 2025 Rachel Madden NP-C Other Provider Active St art: April 04, [...] June 07, 2025 Dr. Dennis Chow MD Attending Provider Active Start: June 07, 2025 End: June 07, 2025 Dr. Dennis Chow MD Referring Provider Active Start: June 07, 2025 End: June 07, 2025 Team Status: Inactive Member Role/Relationship Status Dates Dr. Dennis Chow MD Primary Care Provider Active Start: June 10, 2025 End: June 10, 2025 Dr. Dao Luciano MD Attending Provider Active Start: June 10, 2025 End: June 10, 2025 Dr. Dao Luciano MD Referring Provider Active Start: June 10, 2025 End: June 10, 2025 Team Status: Active Member Role/Relationship Status Dates Dr. Dennis Chow MD Primary Care Provider Active Start: June 10, 2025 Dr. Manolo Kothari MD Attending Provider Active S tart: June 10, 2025 Team Status: Inactive Member Role/Relationship Status Dates Dr. Dennis Chow MD Primary Care Provider Active Start: June 10, 2025 End: June 10, 2025 Dr. Dennis Chow MD Referring Provider Active Start: June 10, 2025 End: June 10, 2025 Dr. Janie Elias MD Attending Provider Active Start: June 10, 2025 End: June 10, 2025 Team Status: Inactive Member Role/Relationship Status Dates Dr. Dennis Chow MD Primary Care Provider Active Start: June 21, 2025 End: June 21, 2025 Dr. Dennis Chow MD Referring Provider Active Start: June 21, 2025 End: June 21, [address] GRADER, ROAD GRADER-C Attending Provider Active Start: June 21, 2025 End: June 21, 2025 Team Status: Inactive Member Role/Relationship Status Dates Dr. Dennis Chow MD Primary Care Provider Active Start: June 21, 2025 End: June 21, [address]AD[address], ROAD GRADER-C Attending Provider Active Start: June 21, 2025 End: June 21, 2025 Team Status: Inactive Member Role/Relationship Status Dates Dr. Dennis Chow MD Primary Care Provider Active Start: June 27, 2025 End: June 27, 2025 Dr. Dennis Chow MD Attending Provider Active Start: June 27, 2025 End: June 27, 2025 Dr. Dennis Chow MD Referring Provider Active Start: June 27, 2025 End: June 27, 2025 Team Status: Inactive Member Role/Relationship Status Dates Dr. Dennis Chow MD Primary Care Provider Active Start: July 05, 2025 End: July 05, 2025 Dr. Dennis Chow MD Referring Provider Active Start: July 05, 2025 End: July 05, 2025 Conor Barros MD Attending Provider Active St art: July 05, 2025 End: July 05, 2025 Team Status: Inactive Member Role/Relationship Status Dates Dr. Dennis Chow MD Primary Care Provider Active Start: July 05, 2025 End: July 05, 2025 Dr. Manolo Kothari MD Attending Provider Active S tart: July 05, 2025 End: July 05, 2025 Team Status: Inactive Member Role/Relationship Status Dates Dr. Dennis Chow MD Primary Care Provider Active Start: July 08, 2025 End: July 08, 2025 Dr. Dennis Chow MD Attending Provider Active Start: July 08, 2025 End: July 08, 2025 Dr. Dennis Chow MD Referring Provider Active Start: July 08, 2025 End: July 08, 2025 Team Status: Active Member Role/Relationship Status Dates Dr. Dennis Chow MD Primary Care Provider Active Start: July 14, 2025 Dr. Dennis Chow MD Attending Provider Active Start: July 14, 2025 Team Status: Inactive Member Role/Relationship Status Dates Dr. Dennis Chow MD Primary Care Provider Active Start: July 20, 2025 End: July 20, 2025 Dr. Dennis Chow MD Referring Provider Active Start: July 20, 2025 End: July 20, 2025 [address] NP, ROAD GRADER-C Attending Provider Active Start: July 20, 2025 End: July 20, 2025 Team Status: Active Member Role/Relationship Status Dates Dr. Dennis Chow MD Primary care physician Active Team Status: Active Member Role/Relationship Status Dates Dr. Dennis Chow MD Primary care physician Active Start: April 04, 2025 Rachel Madden NP-C Referring Provider Active Start: April 04, 2025 Rachel Madden NP-C Nurse Practitioner Active Start: April 04, 2025 Dr. Mitch Ruiz DO Attending physician Active Start: April 04, 2025 Team Status: Inactive Member Role/Relationship Status Dates No Primary Care Physician Referring Provider Active Start: April 06, 2025 End: April 06, 2025 Rachel Madden NP-C Attending physician Active Start: April 06, 2025 End: April 06, 2025 Dr. Dennis Chow MD Primary care physician Active Start: April 06, 2025 End: April 06, 2025 Team Status: Inactive Member Role/Relationship Status Dates Dr. Dennis Chow MD Primary care physician Active Start: April 07, 2025 End: April 07, 2025 Dr. Dennis Chow MD Referring Provider Active Start: April 07, 2025 End: April 07, 2025 LAZARO Garcia Attending physician Active Start: April 07, 2025 End: April 07, 2025 Team Status: Inactive Member Role/Relationship Status Dates Dr. Dennis Chow MD Primary care physician Active Start: May 16, 2025 End: May 16, 2025 Dr. Dennis Chow MD Referring Provider Active Start: May 16, 2025 End: May 16, 2025 Dr. Dao Luciano MD Attending physician Active Start: May 16, 2025 End: May 16, 2025 Team Status: Active Member Role/Relationship Status Dates Dr. Dennis Chow MD Primary care physician Active Start: May 21, 2025 Dr. Dao Luciano MD Attending physician Active Start: May 21, 2025 Dr. Dao Luciano MD Referring Provider Active Start: May 21, 2025 Team Status: Active Member Role/Relationship Status Dates Dr. Dennis Chow MD Primary care physician Active Start: May 21, 2025 Dr. Dao Luciano MD Attending physician Active Start: May 21, 2025 Dr. Dao Luciano MD Referring Provider Active Start: May 21, 2025 Team Status: Inactive Member Role/Relationship Status Dates Dr. Dennis Chow MD Primary care physician Active Start: June 07, 2025 End: June 07, 2025 Dr. Dennis Chow MD Attending physician Active Start: June 07, 2025 End: June 07, 2025 Dr. Dennis Chow MD Referring Provider Active Start: June 07, 2025 End: June 07, 2025 Team Status: Inactive Member Role/Relationship Status Dates Dr. Dennis Chow MD Primary care physician Active Start: June 10, 2025 End: June 10, 2025 Dr. Dao Luciano MD Attending physician Active Start: June 10, 2025 End: June 10, 2025 Dr. Dao Luciano MD Referring Provider Active Start: June 10, 2025 End: June 10, 2025 Team Status: Active Member Role/Relationship Status Dates Dr. Dennis Chow MD Primary care physician Active Start: June 10, 2025 Dr. Manolo Kothari MD Attending physician Active Start: June 10, 2025 Team Status: Inactive Member Role/Relationship Status Dates Dr. Dennis Chow MD Primary care physician Active Start: June 10, 2025 End: June 10, 2025 Dr. Dennis Chow MD Referring Provider Active Start: June 10, 2025 End: June 10, 2025 Dr. Janie Elias MD Attending physician Active Start: June 10, 2025 End: June 10, 2025 Team Status: Inactive Member Role/Relationship Status Dates Dr. Dennis Chow MD Primary care physician Active Start: June 21, 2025 End: June 21, 2025 Dr. Dennis Chow MD Referring Provider Active Start: June 21, 2025 End: June 21, [address]ADER, ROAD GRADER-C Attending physician Active Start: June 21, 2025 End: June 21, 2025 Team Status: Inactive Member Role/Relationship Status Dates Dr. Dennis Chow MD Primary care physician Active Start: June 21, 2025 End: June 21, [address], ROAD GRADER-C Attending physician Active Start: June 21, 2025 End: June 21, 2025 Team Status: Inactive Member Role/Relationship Status Dates Dr. Dennis Chow MD Primary care physician Active Start: June 27, 2025 End: June 27, 2025 Dr. Dennis Chow MD Attending physician Active Start: June 27, 2025 End: June 27, 2025 Dr. Dennis Chow MD Referring Provider Active Start: June 27, 2025 End: June 27, 2025 Team Status: Inactive Member Role/Relationship Status Dates Dr. Dennis Chow MD Primary care physician Active Start: July 05, 2025 End: July 05, 2025 Dr. Dennis Chow MD Referring Provider Active Start: July 05, 2025 End: July 05, 2025 Conor Barros MD Attending physician Active S tart: July 05, 2025 End: July 05, 2025 Team Status: Inactive Member Role/Relationship Status Dates Dr. Dennis Chow MD Primary care physician Active Start: July 05, 2025 End: July 05, 2025 Dr. Manolo Kothari MD Attending physician Active Start: July 05, 2025 End: July 05, 2025 Team Status: Inactive Member Role/Relationship Status Dates Dr. Dennis Chow MD Primary care physician Active Start: July 08, 2025 End: July 08, 2025 Dr. Dennis Chow MD Attending physician Active Start: July 08, 2025 End: July 08, 2025 Dr. Dennis Chow MD Referring Provider Active Start: July 08, 2025 End: July 08, 2025 Team Status: Inactive Member Role/Relationship Status Dates Dr. Dennis Chow MD Primary care physician Active Start: July 14, 2025 End: July 14, 2025 Dr. Dennis Chow MD Attending physician Active Start: July 14, 2025 End: July 14, 2025 Team Status: Inactive Member Role/Relationship Status Dates Dr. Dennis Chow MD Primary care physician Active Start: July 20, 2025 End: July 20, 2025 Dr. Dennis Chow MD Referring Provider Active Start: July 20, 2025 End: July 20, [address]ADER, ROAD GRADER-C Attending physician Active Start: July 20, 2025 End: July 20, 2025 Team Status: Active Member Role/Relationship Status Dates Dr. Dennis Chow MD Primary care physician Active Start: July 20, [address], ROAD GRADER-C Attending physician Active Start: July 20, [address]AD[address], ROAD GRADER-C Referring Provider Active Start: July 20, 2025 Team Status: Active Member Role/Relationship Status Dates Dr. Dennis Chow MD Primary care physician Active Start: July 20, 2025 Conor Barros MD Attending physician Active S tart: July 20, 2025 Conor Barros MD Referring Provider Active St art: July 20, 2025 Team Status: Inactive Member Role/Relationship Status Dates Dr. Dennis Chow MD Primary care physician Active Start: July 28, 2025 End: July 28, 2025 Dr. Dennis Chow MD Referring Provider Active Start: July 28, 2025 End: July 28, 2025 Evelia Kimble NP-C Attending physician Active Start: July 28, 2025 End: July 28, 2025 Team Status: Active Member Role/Relationship Status Dates Dr. Dennis Chow MD Primary care physician Active Start: July 28, 2025 PERLA Tolentino Attending physician Active Start: July 28, 2025 PERLA Tolentino Referring Provider Active Start: July 28, 2025 Team Status: Inactive Member Role/Relationship Status Dates Dr. Dennis Chow MD Primary care physician Active Start: May 16, 2025 End: May 16, 2025 Dr. Dennis Chow MD Referring Provider Active Start: May 16, 2025 End: May 16, 2025 Dr. Dao Luciano MD Attending physician Active Start: May 16, 2025 End: May 16, 2025 Team Status: Active Member Role/Relationship Status Dates Dr. Dennis Chow MD Primary care physician Active Start: May 21, 2025 Dr. Dao Luciano MD Attending physician Active Start: May 21, 2025 Dr. Dao Luciano MD Referring Provider Active Start: May 21, 2025 Team Status: Active Member Role/Relationship Status Dates Dr. Dennis Chow MD Primary care physician Active Start: May 21, 2025 Dr. Dao Luciano MD Attending physician Active Start: May 21, 2025 Dr. Dao Luciano MD Referring Provider Active Start: May 21, 2025 Team Status: Inactive Member Role/Relationship Status Dates Dr. Dennis Chow MD Primary care physician Active Start: June 07, 2025 End: June 07, 2025 Dr. Dennis Chow MD Attending physician Active Start: June 07, 2025 End: June 07, 2025 Dr. Dennis Chow MD Referring Provider Active Start: June 07, 2025 End: June 07, 2025 Team Status: Inactive Member Role/Relationship Status Dates Dr. Dennis Chow MD Primary care physician Active Start: June 10, 2025 End: June 10, 2025 Dr. Dao Luciano MD Attending physician Active Start: June 10, 2025 End: June 10, 2025 Dr. Dao Luciano MD Referring Provider Active Start: June 10, 2025 End: June 10, 2025 Team Status: Active Member Role/Relationship Status Dates Dr. Dennis Chow MD Primary care physician Active Start: June 10, 2025 Dr. Manolo Kothari MD Attending physician Active Start: June 10, 2025 Team Status: Inactive Member Role/Relationship Status Dates Dr. Dennis Chow MD Primary care physician Active Start: June 10, 2025 End: June 10, 2025 Dr. Dennis Chow MD Referring Provider Active Start: June 10, 2025 End: June 10, 2025 Dr. Janie Elias MD Attending physician Active Start: June 10, 2025 End: June 10, 2025 Team Status: Inactive Member Role/Relationship Status Dates Dr. Dennis Chow MD Primary care physician Active Start: June 21, 2025 End: June 21, 2025 Dr. Dennis Chow MD Referring Provider Active Start: June 21, 2025 End: June 21, [address], ROAD GRADER-C Attending physician Active Start: June 21, 2025 End: June 21, 2025 Team Status: Inactive Member Role/Relationship Status Dates Dr. Dennis Chow MD Primary care physician Active Start: June 21, 2025 End: June 21, [address], ROAD GRADER-C Attending physician Active Start: June 21, 2025 End: June 21, 2025 Team Status: Inactive Member Role/Relationship Status Dates Dr. Dennis Chow MD Primary care physician Active Start: June 27, 2025 End: June 27, 2025 Dr. Dennis Chow MD Attending physician Active Start: June 27, 2025 End: June 27, 2025 Dr. Dennis Chow MD Referring Provider Active Start: June 27, 2025 End: June 27, 2025 Team Status: Inactive Member Role/Relationship Status Dates Dr. Dennis Chow MD Primary care physician Active Start: July 05, 2025 End: July 05, 2025 Dr. Dennis Chow MD Referring Provider Active Start: July 05, 2025 End: July 05, 2025 Conor Barros MD Attending physician Active S tart: July 05, 2025 End: July 05, 2025 Team Status: Inactive Member Role/Relationship Status Dates Dr. Dennis Chow MD Primary care physician Active Start: July 05, 2025 End: July 05, 2025 Dr. Manolo Kothari MD Attending physician Active Start: July 05, 2025 End: July 05, 2025 Team Status: Inactive Member Role/Relationship Status Dates Dr. Dennis Chow MD Primary care physician Active Start: July 08, 2025 End: July 08, 2025 Dr. Dennis Chow MD Attending physician Active Start: July 08, 2025 End: July 08, 2025 Dr. Dennis Chow MD Referring Provider Active Start: July 08, 2025 End: July 08, 2025 Team Status: Inactive Member Role/Relationship Status Dates Dr. Dennis Chow MD Primary care physician Active Start: July 14, 2025 End: July 14, 2025 Dr. Dennis Chow MD Attending physician Active Start: July 14, 2025 End: July 14, 2025 Team Status: Inactive Member Role/Relationship Status Dates Dr. Dennis Chow MD Primary care physician Active Start: July 20, 2025 End: July 20, 2025 Dr. Dennis Chow MD Referring Provider Active Start: July 20, 2025 End: July 20, [address]ADER, ROAD GRADER-C Attending physician Active Start: July 20, 2025 End: July 20, 2025 Team Status: Inactive Member Role/Relationship Status Dates Dr. Dennis Chow MD Primary care physician Active Start: July 20, 2025 End: July 20, [address], ROAD GRADER-C Attending physician Active Start: July 20, 2025 End: July 20, [address]AD[address], ROAD GRADER-C Referring Provider Active Start: July 20, 2025 End: July 20, 2025 Team Status: Active Member Role/Relationship Status Dates Dr. Dennis Chow MD Primary care physician Active Start: July 20, 2025 Conor Barros MD Attending physician Active S tart: July 20, 2025 Conor Barros MD Referring Provider Active St art: July 20, 2025 Team Status: Inactive Member Role/Relationship Status Dates Dr. Dennis Chow MD Primary care physician Active Start: July 28, 2025 End: July 28, 2025 Dr. Dennis Chow MD Referring Provider Active Start: July 28, 2025 End: July 28, 2025 Evelia Kimble NP-[place] Attending physician Active Start: July 28, 2025 End: July 28, 2025 Team Status: Active Member Role/Relationship Status Dates Dr. Dennis Chow MD Primary care physician Active Start: July 28, [address] GRADER-C Attending physician Active Start: July 28, 2025 Evelia Kimble NP-C Referring Provider Active Start: July 28, 2025 Team Status: Inactive Member Role/Relationship Status Dates Dr. Dennis Chow MD Primary care physician Active Start: July 28, 2025 End: July 28, 2025 Evelia Kimble NP-[place] Attending physician Active Start: July 28, 2025 End: July 28, [address] GRADER-C Referring Provider Active Start: July 28, 2025 End: July 28, 2025 Goals (unrecognized section and content) Goals [...] BE BASED ON THE PRIMARY CLINICAL RECORDS. [facility]. provides no warranty or guarantee of the accuracy or completeness of information in this document.
[2025-08-13] MEDS: 0.9% Normal Saline (1000mL) 1,000 ML 999 ML IV (01:05)
[2025-08-13 01:12] LABS: Partial Thromboplast Time 26.0 Seconds (24.1-36.2)
--- NOTE | 2025-08-13 01:25 | RAD_ITS ---
PROCEDURE: CHEST 1 VIEW (PORTABLE) 08/13/2025 REASON FOR EXAM: CHEST PAIN TECHNIQUE: Frontal view of the chest. COMPARISON: 07/28/2025. FINDINGS: Unremarkable lower cervical fusion metallic hardware. Interval appearance of mild bilateral basilar atelectatic pulmonary changes. There is no demonstrated pleural abnormality. Enlarged cardiac silhouette. Normal mediastinum and leeann. Normal visualized pulmonary arteries. Atheromatous plaques of the visualized aortic arch and descending thoracic aorta. Diffuse spondylosis of the visualized thoracic spine. Normal visualized ribs, clavicles. Degenerative joint disease. There is no demonstrated abnormality of the visualized soft tissue structures of the upper abdomen. RAD/Chest 1 View (Portable) IMPRESSION: Interval appearance of mild bilateral basilar atelectatic pulmonary changes. Reading Location: [facility]
[2025-08-13 01:29] LABS: Anion Gap 14 (5-15); BUN 9 mg/dL (4-19); BUN/Creat Ratio 13.7 RATIO (10-20); Calcium,Total 9.4 mg/dL (7.6-11.0); Carbon Dioxide 23.1 mmol/L (21.0-32.0); Chloride 94 mmol/L (98-108); Estimated Creatinine Clearance 84.96 ml/min (50-250); Glucose 104 mg/dL (70-99); Potassium 3.9 mmol/L (3.3-5.1); Troponin T High Sensitivity 8 ng/L (<=14)
[2025-08-13 02:09] VITALS: BP 125/62; PULSE 68; RESP 16; O2SAT 98
[2025-08-13] MEDS: 0.9% Normal Saline (1000mL) 1,000 ML 15 ML IV (02:41)
[2025-08-13 03:01] LABS: Troponin T High Sens 2 HR 11 ng/L (<=14)
[2025-08-13 03:08] VITALS: BP 132/79; PULSE 68; RESP 16; O2SAT 98
[2025-08-13 04:05] VITALS: BP 110/59; PULSE 59; RESP 18; O2SAT 98
[2025-08-13 05:12] VITALS: BP 114/65; PULSE 68; RESP 16; O2SAT 98
[2025-08-13 05:19] LABS: Troponin T High Sens 4 HR 8 ng/L (<=14)
[2025-08-13 05:58] VITALS: BP 112/64; PULSE 62; RESP 16; TEMP 37.2; O2SAT 98
== END 2025-08-13 05:59 | disposition home or self-care (01) ==
PROVIDERS: Emergency Provider Emergency Medicine; PCP Internal Medicine; Visit Provider Emergency Medicine
DX: K29.70 Gastritis, unspecified, without bleeding (principal); E11.9 Type 2 diabetes mellitus without complications; K52.9 Noninfective gastroenteritis and colitis, unspecified; R55 Syncope and collapse; F17.210 Nicotine dependence, cigarettes, uncomplicated; R07.9 Chest pain, unspecified; K44.9 Diaphragmatic hernia without obstruction or gangrene
CPT/HCPCS: 71045; 74177; 80048; 84484; 85025; 85730; 93005; 96361; 96374; 96376; 99285; Q9967; A4216; J2405

== ENCOUNTER → 2025-08-25 | Outpatient (CLI) | payer MEDICARE, MEDICAID, SELFPAY ==
--- NOTE | 2025-08-25 15:37 | MRI_ITS ---
PROCEDURE: SPINE CERVICAL (ROUTINE) 08/25/2025 REASON FOR EXAM: PAIN, MYELOPATHY, DEXTERITY AND BALANCE LOSS TECHNIQUE: Procedure Code: MRISPC Modality: MR Procedure: SPINE CERVICAL (ROUTINE) Multiplanar and multisequence images were obtained without IV contrast administration. COMPARISON: 07/29/2024 FINDINGS: Normal cervical vertebral body height and alignment. Cervical spinal cord normal in caliber and signal. C2-3 and C3-4 are within normal limits. No central or foraminal stenosis at C4-5. ACDF extends from C5-C7. At C5-6, there is no recurrent pathology At C6-7, there is a perineural cyst on the right without recurrent pathology At C7-T1, there is no adjacent level disease. The cervical spinal cord demonstrates no syrinx or demyelination. Axial images reveal no abnormal soft tissue mass. MRI/Spine Cervical (Routine) IMPRESSION: Stable fusion without interval change compared to the prior study Reading Location: [id number]
== END | disposition home or self-care (01) ==
LOC: OPMRI 15:33
PROVIDERS: PCP Internal Medicine; Referring Provider Student in an Organized Health Care Education/Training Program; Visit Provider Student in an Organized Health Care Education/Training Program
DX: G95.9 Disease of spinal cord, unspecified (principal)
CPT/HCPCS: 72141

== ENCOUNTER → 2025-08-29 | Outpatient (CLI) | payer MEDICARE, MEDICAID, SELFPAY ==
--- NOTE | 2025-08-29 10:20 | NM_ITS ---
PROCEDURE: GASTRIC EMPTYING STUDY 08/29/2025 REASON FOR EXAM: NAUSEA AND VOMITING for 3 weeks. COMPARISON: None. TECHNIQUE: Procedure Code: NMGES Modality: NM Procedure: GASTRIC EMPTYING STUDY The patient ingested a standard semi-solid meal of 1 cup of oatmeal. There was no vomiting postprandially. Anterior and posterior planar images of the upper abdomen were obtained for 1 hour following meal ingestion. Regions of interest were drawn, and a geometric mean was used to calculate a [id number]. RADIOPHARMACEUTICAL: Oral administration 1.2 mCi technetium 99 M sulfur colloid within the oatmeal. FINDINGS: During the time of imaging, gastroesophageal reflux was not identified. Gastric emptying half time of 46.23 minutes. Gastric emptying at 17.5 minutes of 14%, at 29.5 minutes of 31%, at 47.5 minutes of 51%, and at 59.5 minutes of 60%. NM/Gastric Emptying Study IMPRESSION: No evidence of delayed gastric emptying. Reading Location: [id number]
== END | disposition home or self-care (01) ==
LOC: NM 10:15
PROVIDERS: PCP Internal Medicine; Referring Provider Internal Medicine Gastroenterology; Visit Provider Internal Medicine Gastroenterology
DX: R11.2 Nausea with vomiting, unspecified (principal)
CPT/HCPCS: 78264; A9541

== ENCOUNTER → 2025-10-10 | Outpatient (CLI) | payer MEDICARE, MEDICAID, SELFPAY ==
--- NOTE | 2025-10-10 13:51 | US_ITS ---
PROCEDURE: THYROID 10/10/2025 REASON FOR EXAM: THYROID TENDERNESS, NODULE TECHNIQUE: Procedure Code: USTHY Modality: US Procedure: THYROID COMPARISON: 22 Mar 2025 and 08 January 2024. FINDINGS: Transcutaneous 2-D grayscale and color Doppler ultrasound of the thyroid gland was performed. MEASUREMENTS: Right lobe: 4.3 x 2 x 1.6 cm. Left lobe: 4.3 x 1.7 x 1.4 cm. Isthmus: 2 mm. RIGHT SIDE: Homogeneous echotexture. The interpolar right thyroid contains a mixed cystic and solid, hypoechoic, wider than tall, smooth nodule measuring 1.7 x 1.3 x 1 cm without evidence of echogenic foci. (TR 3). (Accounting for differences in technique, stable nodule) LEFT SIDE: Homogeneous echotexture. Simple benign cyst visualized. ISTHMUS: No evidence of nodule or mass. Normal vascularity without microcalcification. No enlarged lymph nodes within the visualized neck. US/Thyroid IMPRESSION: Stable single right thyroid nodule. TI-RADS 3, MILDLY SUSPICIOUS. RECOMMENDATIONS: Recommend repeat ultrasound in one year as this nodule does not meet size crite kirk for image guided fine needle aspiration. ACR TI-RADS Guidelines TI RADS 1 - Benign; No FNA TI RADS 2- Not Suspicious; No FNA TI RADS 3- Mildly Suspicious; FNA if >2.5cm or Follow if >1.5cm at 1, 3 and 5 y ears. TI RADS 4- Moderately Suspicious; FNA if >1.5cm or Follow if >1cm at 1, 2, 3 an d 5 years. TI RADS 5- Highly Suspicious; FNA if >1cm or Follow if >0.5cm yearly for up to 5 years. Reference: Vicki FN, Gissel WD, Eduardo EG et al. ACR Thyroid Imaging, Repor ting and Data System (TI-RADS): White Paper of the ACR TI-RADS Committee. Earline Am Reading Location: [id number]
[2025-10-10 15:57] LABS: Creatinine, Urine (random) 23.00 mg/dL (28.00-217.00); Microalbumin,Random Urine 15.6 mg/L (<20 mg/L)
[2025-10-10 15:58] LABS: AST(SGOT) 20 U/L (<=31); Alanine Aminotransfer ALT/SGPT 14 U/L (<=34); Albumin, Serum 4.5 g/dL (3.4-4.8); Alkaline Phosphatase 22 U/L (35-104); Anion Gap 13 (5-15); BUN 9 mg/dL (4-19); BUN/Creat Ratio 12.3 RATIO (10-20); Calcium,Total 9.5 mg/dL (7.6-11.0); Carbon Dioxide 23.5 mmol/L (21.0-32.0); Chloride 92 mmol/L (98-108); Cholesterol 190 mg/dL (<=200); Globulin 3.4 g/dL (2.2-4.2); Glucose 90 mg/dL (70-99); Low Density Lipoprotein Calc. 115 mg/dL; Potassium 3.8 mmol/L (3.3-5.1); Triglycerides 124 mg/dL; Very Low Density Lipoprotein 25 mg/dL (5-40); cholesterol:hdl ratio screen 3.58
== END | disposition home or self-care (01) ==
LOC: US 13:30
PROVIDERS: PCP Internal Medicine; Referring Provider Internal Medicine; Visit Provider Internal Medicine
DX: E04.1 Nontoxic single thyroid nodule (principal); E11.42 Type 2 diabetes mellitus with diabetic polyneuropathy
CPT/HCPCS: 76536; 80053; 80061; 82043; 82570; 84443

== ENCOUNTER → 2025-10-11 | Outpatient (CLI) | payer MEDICARE, MEDICAID, SELFPAY ==
--- NOTE | 2025-10-11 15:31 | MRI_ITS ---
PROCEDURE: SPINE LUMBAR (ROUTINE) 10/11/2025 REASON FOR EXAM: PAIN, DDD, LUMBAR RADICULOPATHY TECHNIQUE: Procedure Code: MRISPL Modality: MR Procedure: SPINE LUMBAR (ROUTINE) COMPARISON: MRI lumbar spine 07/29/2024 FINDINGS: For the purposes of this report, the most caudal rectangular vertebral body will be designated L5. The next most caudal trapezoidal shaped vertebral body will be designated S1. The intervening disc at the lumbosacral angle is designated L5-S1. Mild straightening of the lumbar spine. The lumbar vertebral bodies are normal in height. The lumbar vertebral bodies are normal in alignment. The lumbar bone marrow signal is within normal limits. Multilevel disc desiccation. Multiple anterior osteophytes. There is no evidence of signal abnormality in the imaged distal spinal cord. The conus medullaris terminates at the level of L1. T12-L1: No significant spinal canal stenosis. L1-L2: No significant spinal canal stenosis or neural foraminal narrowing. L2-L3: No significant spinal canal stenosis or neural foraminal narrowing. L3-L4: Disc bulge indents the ventral thecal sac. No significant neural foraminal narrowing. L4-L5: Disc bulge. No significant spinal canal stenosis or neural foraminal narrowing. L5-S1: Disc bulge, bilateral facet arthrosis, ligamentum flavum hypertrophy. No significant spinal canal stenosis. Left neural foraminal narrowing. Intact right neural foramen. Mild fatty atrophy of the posterior paraspinal muscles. MRI/Spine Lumbar (Routine) IMPRESSION: Compared to MRI of the lumbar spine 07/29/2024, stable lumbar spondylosis witho ut high-grade spinal canal or neural foraminal stenosis. Reading Location: [id number]
== END | disposition home or self-care (01) ==
LOC: MRI 15:29
PROVIDERS: PCP Internal Medicine; Referring Provider Student in an Organized Health Care Education/Training Program; Visit Provider Student in an Organized Health Care Education/Training Program
DX: M51.362 Other intervertebral disc degeneration, 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 extremity pain (principal); M54.16 Radiculopathy, lumbar region
CPT/HCPCS: 72148

== ENCOUNTER 2025-10-27 19:28 | Emergency (ER) | payer MEDICARE, MEDICAID, SELFPAY ==
[2025-10-27 19:28] VITALS: BP 129/67; PULSE 100; RESP 16; TEMP 36.1; O2SAT 99; BMI 24.0
--- OUTSIDE RECORDS SUMMARY | 2025-10-27 21:04 | XMS RPT_ITS | CCD ---
Author Organization [facility] Care Team Providers Care Housing Management Officer Name Role Phone TISH ROBLES Unavailable Unavailable TISH ROBLES Unavailable Unavailable Clarice Petersen MD Primary Care Provider Clarice Petersen MD Primary Care Provider Clarice Petersen MD Primary Care Provider Clarice Petersen MD Primary Care Provider PODLOGSAHRA CUNNINGHAM Referring Unavailable CLARICE PETERSEN Primary Care Unavailable Franklin Mirza PA-C Primary Care Provider Barbie Ruiz MD Unavailable Jake Wallis MD Primary Care Provider BIMAL HOLGUIN, JAKE Primary Care Physician TAD HOLGUIN, CAESAR Attending Unavailable BIMAL HOLGUIN, JAKE Primary Care Unavailable TAD HOLGUIN, CAESAR Attending Unavailable BIMAL HOLGUIN, JAKE Primary Care Unavailable Jake Wallis MD Primary Care Provider Hemanth Tovar MD Primary Care Provider Clarice Petersen MD Primary Care Provider Jake Wallis MD Primary Care Provider Podlogar HYDRAULIC PLUMBER.Sahra GARCIA Unavailable Alexus Machuca DO Primary Care Provider Dr. Juarez Harris MD Attending Provider Dr. Juarez Harris MD Referring Provider Alexus Machuca DO Referring Provider Dr. Pernell Philippe DO Attending Provider Care Physician, No Primary Primary Care Provider Unavailable Friend , Dr. Gimenez Referring Provider Dennis Hamm MD Primary Care Provider Rachel Madden CNP Unavailable Alexus Machuca DO Primary Care Provider Bimal HOLGUIN, Dr. Jake Juarez Referring Provider [phone] Jose Alejandro PASTRY BAKER-C, Rachel Figueroa Attending Provider Care Physician, No Primary Referring Provider Un available Jose Martin ISSA, Dr. Gimenez Other Provider Claudine HOLGUIN, Dr. Carey Attending Provider Jose Alejandro PASTRY BAKER-C, Rachel Figueroa Referring Provider Claudine HOLGUIN, Dr. Carey Primary Care Provider Dr. Dennis Hamm MD Referring Provider Jose Alejandro PASTRY BAKER-C, Rachel Figueroa Other Provider Dr. Mitch Ruiz DO Attending Provider Amanda Lopez Attending Provider Barbie Ruiz MD Unavailable Podlogar HYDRAULIC PLUMBER.Sahra GARCIA Unavailable CRISTHIAN CHRISTENSEN Referring Unavailable HEMANTH TOVAR Primary Care Unavailab le CRISTHIAN CHRISTENSEN Referring Unavailable SCHJAKE GORMAN Primary Care Unavailable MASCCRISTHIAN Escobar Attending Unavailable SELF Referring Unavailable JAKE WALLIS Primary Care Unavailable CRISTHIAN CHRISTENSEN Referring Unavailable HEMANTH TOVAR Primary Care Unavailab ORVILLE Gonzalez Attending Unavailable CRISTHIAN CHRISTENSEN Attending Unavailable CRISTHIAN CHRISTENSEN Referring Unavailable CRISTHIAN CHRISTENSEN Referring Unavailable PELON SKINNER Attending Unavailable PELON SKINNER Referring Unavailable SCHJAKE GORMAN E Primary Care Unavailable CRISTHIAN CHRISTENSEN Attending Unavailable JAKE WALLIS E Primary Care Unavailable CRISTHIAN CHRISTENSEN Attending Unavailable CRISTHIAN CHRISTENSEN Referring Unavailable MASCI, CRISTHIAN A Referring Unavailable [...] Primary Primary Care Provider Unavailable Jose Alejandro PASTRY BAKER-C, Rachel Figueroa Attending Provider Dr. Dao Luciano MD Referring Provider NURSE, [place] Attending Provider Unavailable Curt HOLGUIN, Dr. Lima Attending Provider Saniya HOLGUIN, Dr. French Attending Provider [phone] Curt HOLGUIN, Dr. Lima Attending Provider Cade PASTRY BAKER-C, Ginny Attending Provider Conor Barros MD Attending Provider [phone] Dennis Hamm MD Attending Provider Care Physician, No Primary Referring Provider Un available Dr. Dao Luciano MD Referring Provider Dr. Dennis Hamm MD Primary Care Provider Jose Alejandro PASTRY BAKER-C, Rachel Figueroa Attending Provider Jose Alejandro PASTRY BAKER-C, Rachel iFgueroa Referring Provider Dr. Dennis Hamm MD Primary Care Physician Jose Alejandro PASTRY BAKER-C, Rachel Figueroa Referring Provider Jose Alejandro PASTRY BAKER-C, Rachel Figueroa Nurse Practitioner Dr. Mitch Ruiz DO Attending Physician Jose Alejandro PASTRY BAKER-C, Rachel Figueroa Attending Physician Dr. Dennis Hamm MD Referring Provider Amanda Lopez Attending Physician [phone] Mustapha HOLGUIN, Dr. Dc Attending Physician [phone] Claudine HOLGUIN, Dr. Carey Attending Physician [phone] Saniya HOLGUIN, Dr. French Attending Physician [phone] Curt HOLGUIN, Dr. Lima Attending Physician Curtis PASTRY BAKER-C, Ginny Attending Physician [phone] Conor Barros MD Attending Physician [phone] Cade PASTRY BAKER-C, Ginny Referring Provider [phone] Conor Barros MD Referring Provider [phone] Ungerer PASTRY BAKER-C, Evelia Attending Physician Ungerer PASTRY BAKER-C, Evelia Referring Provider [phone] Claudine HOLGUIN, Dr. Carey Primary Care Physician Claudine HOLGUIN, Dr. Carey Referring Provider Fatuma Villalpando Attending Physician Joslyn HOLGUIN, Dr. Gonzalez Emergency Department Phys ician Joslyn HOLGUIN, Dr. Gonzalez Attending Physician Fatuma Villalpando Referring Provider Dr. Pernell Philippe DO Attending Physician [phone] Dr. Pernell Philippe DO Referring Provider Dennis Hamm Primary Care Unavailable Pernell Philippe Attending Unavailable Pernell Philippe Referring Unavailable FriendPernell Referring Unavailable Care Physician, No Primary Primary Care Unava ilable Pernell Philippe Attending Unavailable Dennis Hamm Primary Care Unavailable Carlos Jorgensen Attending Unavailable Dennis Hamm Primary Care Unavailable Conor Barros Attending Unavailable Conor Barros Referring Unavailable FriendPernell Referring Unavailable Care Physician, No Primary Primary Care Unava ilable Pernell Philippe Attending Unavailable Dao Luciano Attending Unavailable Dao Luciano Referring Unavailable [place], Dennis Primary Care Unavailable [place], Dennis Primary Care Unavailable Claudine, Dennsi Attending Unavailable [place], Dennis Referring Unavailable [place], Dennis Primary Care Unavailable CadeGinny Attending Unavailable [place], Dennis Primary Care Unavailable Claudine, Dennis Referring Unavailable Claudine, Dennis Attending Unavailable Claudine, Dennis Primary Care Unavailable Ginny Acevedo Attending Unavailable CadeGinny Referring Unavailable [place], Dennis Primary Care Unavailable Rachel Madden M Referring Unavailable DanteerRachel Attending Unavailable [place], Dennis Primary Care Unavailable Rachel Madden M Referring Unavailable RusonerRachel Attending Unavailable [place], Dennis Primary Care Unavailable [place], Dennis Referring Unavailable Claudine, Dennis Attending Unavailable Dao Luciano Referring Unavailable Dao Luciano Attending Unavailable Claudine, Dennis Primary Care Unavailable Claudine, Dennis Primary Care Unavailable Conor Barros Referring Unavailable Conor Barros Attending Unavailable Sven VSC, Alexus Primary Care Unavailable StevenYayain Referring Unavailable Juarez Harris Attending Unavailable Sven VSC, Alexus Primary Care Unavailable Juarez Harris Attending Unavailable Steven Juarez Referring Unavailable Amanda Milton Attending Unavailable Claudine, Dennis Referring Unavailable Claudine, Dennis Primary Care Unavailable [place], Dennis Primary Care Unavailable Ungerer, Evelia Referring Unavailable Ungerer Evelia Attending Unavailable Claudine, Dennis Primary Care Unavailable Claudine, Dennis Attending Unavailable Care Physician, No Primary Referring Unava ilable Care Physician, No Primary Primary Care Unava ilable Friend, Pernell Attending Unavailable [place], Dennis Primary Care Unavailable Michael, Fatuma Referring Unavailable Michael, Fatuma Attending Unavailable Care Physician, No Primary Referring Unava ilable Care Physician, No Primary Primary Care Unava ilable Friend, Pernell Attending Unavailable Friend, Pernell Consulting Unavailable [place], Dennis Primary Care Unavailable Rachel Madden M Referring Unavailable DanteerRachel Attending Unavailable [place], Dennis Primary Care Unavailable Manolo Kothari Attending Unavailable [place], Dennis Primary Care Unavailable Mitch Ruiz Attending Unavailable Rachel Madden Referring Unavailable Claudine, Dennis Primary Care Unavailable [place], Dennis Referring Unavailable Conor Barros Attending Unavailable Claudine, Dennis Primary Care Unavailable SaniyaManolo solomon Attending Unavailable [place], Dennis Primary Care Unavailable Care Physician, No Primary Referring Unava ilable Rachel Madden Attending Unavailable [place], Dennis Referring Unavailable [place], Dennis Primary Care Unavailable CadeGinny Attending Unavailable [place], Dennis Attending Unavailable [place], Dennis Primary Care Unavailable [place], Dennis Referring Unavailable Amanda Milton Attending Unavailable Claudine, Dennis Primary Care Unavailable [place], Dennis Referring Unavailable [place], Dennis Primary Care Unavailable [place], Dennis Referring Unavailable CurtisGinny anderson Attending Unavailable Claudine, Dennis Primary Care Unavailable Claudine, Dennis Referring Unavailable Evelia Kimble Attending Unavailable Claudine, Dennis Primary Care Unavailable Claudine, Dennis Referring Unavailable Fatuma Rodriguez Attending Unavailable [place], Dennis Primary Care Unavailable Manolo Kotahri Attending Unavailable Jake Wallis Referring Unavailable Care Physician, No Primary Primary Care Unava ilable Rachel Madden Attending Unavailable Claudine, Dennis Primary Care Unavailable Claudine, Dennis Referring Unavailable Amanda Milton Attending Unavailable Sven VSC, Alexus Referring Unavailable Pernell Philippe Attending Unavailable Sven VSC, Alexus Primary Care Unavailable [place], Dennis Primary Care Unavailable Janie Elias Attending Unavailable Claudine, Dennis Referring Unavailable Claudine, Dennis Primary Care Unavailable [place], Dennis Referring Unavailable Claudine, Dennis Attending Unavailable [place], Dennis Primary Care Unavailable Dao Luciano Referring Unavailable Dao Luciano Attending Unavailable [place], Dennis Primary Care Unavailable Rachel Madden Consulting Unavailable Mitch Ruiz Attending Unavailable Rachel Madden Referring Unavailable [place], Dennis Primary Care Unavailable [place], Dennis Referring Unavailable Fatuma Rodriguez Attending Unavailable Claudine, Dennis Attending Unavailable Care Physician, No Primary Referring Unava ilable Care Physician, No Primary Primary Care Unava ilable Dao Luciano Attending Unavailable Dennis Hamm Referring Unavailable Dennis Hamm Primary Care Unavailable Dao Luciano Attending Unavailable Dao Luciano Referring Unavailable Dennis Hamm Primary Care Unavailable Allergies Allergy Classification Reported Allergen(s) Allergy Type Date of Onset Reaction(s) Facility (20 sources) Adhesive agent; Translations: [ADHESIVE] Propensity to adverse reactions to drug (disorder) 3 Other: See Comments [facility] Rep[facility] (20 sources) ciprofloxacin; Translations: [CIPROFLOXACIN] Drug Allergy 4 Rash [facility] (20 sources) clindamycin; Translations: [CLINDAMYCIN] Drug Allergy 6 Swelling [facility] Comment on above: Pt's pcp office has clindamycin listed as allergy, but pt recently was prescribed it and did not appear to have a reaction. (1 source) doxycycline; Translations: [DOXYCYCLINE] Drug Allergy 4 AOF [facility] (20 sources) FLUoxetine; Translations: [FLUOXETINE HCL] Drug Allergy 3 Rash [facility] (20 sources) metroNIDAZOLE; Translations: [METRONIDAZOLE] Drug Allergy 4 Anaphylaxis [facility] (20 sources) Penicillins; Translations: [PENICILLINS] Propensity to adverse reactions to drug (disorder) 2 Intolerance [facility] (20 sources) AMOXICILLIN-POT CLAVULANATE; Translations: [AMOXICILLIN-POT CLAVULANATE] Propensity to adverse reactions to drug (disorder) 4 Other: See Comments [facility] (20 sources) SULFA DYNE; Translations: [SULFA DYNE] Propensity to adverse reactions to drug (disorder) 2 Rash [facility] (20 sources) Amoxicillin; Translations: [amoxicillin trihydrate] Drug Allergy 0 thrush/yeast infection [facility] (20 sources) Ciprofloxacin; Translations: [ciprofloxacin HCl] Drug Allergy 0 Rash [facility] (20 sources) Sulfonamides (Antibiotic); Translations: [Sulfa (Sulfonamide Antibiotics)] Allergy to substance 0 Rash [facility] (20 sources) potassium clavulanate; Translations: [potassium clavulanate] Propensity to adverse reactions 0 thrush/yeast infection [facility] (2 sources) FLUoxetine; Translations: [fluoxetine] Drug Allergy mental status change [facility] (2 sources) Sulfonamide; Translations: [sulfa drugs] Drug allergy rash [facility] (14 sources) rosuvastatin Drug Allergy 5 Diarrhea [facility] (1 source) rosuvastatin Drug Allergy 5 [facility] Repository Medications Current Medications Medication Drug Class(es) Dates Sig (Normalized) Sig (Original) Albuterol (Eqv-ProAir HFA) 90 mcg/inh inhalation aerosol (2 sources) Start: 02-10-2024 Albuterol (Eqv-ProAir HFA) 90 mcg/inh inhalation aerosol Dose = 1 puff(s), 0 Refill(s) Start Date: 02/10/24 Status: Ordered aspirin 81 mg delayed release oral tablet (20 sources) Platelet Aggregation Inhibitor, Nonsteroidal Anti-inflammatory Drug Start: 02-02-2025 Start: 02-10-2024 aspirin 81 mg oral tablet, [...] Take 81 mg by mouth once daily. atorvastatin 10 mg oral tablet (14 sources) HMG-CoA Reductase Inhibitor Start: 07-14-20 End: 08-11-20 take 1 tablet by mouth at bedtime benoxinate hydrochloride 4 mg/ml / fluorescein sodium 2.5 mg/ml ophthalmic solution (1 source) Diagnostic Dye Start: 02-13-20 End: 02-14-20 fluorescein-benoxinate 0.25-0.4 % 1 Drop (FLURESS) Blood-Glucose Meter (Accu-Chek Guide Glucose Meter) mis (13 sources) Start: 06-27-20 25 Blood-Glucose Meter (Accu-Chek Guide Glucose Meter) [facility] Active 0 .Route 1 0 June 27, 2025 12:00am Diabetes mellitus Type 2 diabetes mellitus with diabetic polyneuropathy As directed Blood-Glucose Meter monitoring kit (20 sources) Start: 12-02-19 17 Blood-Glucose Meter monitoring kit Glucose Meter of [...] (3 sources) Cephalosporin Antibacterial Start: 023 End: 023 take 1 capsule by mouth three times daily cephALEXin (KEFLEX) 250 mg capsule Indications: Laceration of right middle finger without foreign body without damage to nail, subsequent encounter Take 1 capsule by mouth three times daily for 7 days. 21 capsule 0 02/17/2023 02/24/2023 Active Comment on above: Take 1 capsule by [facility] three times daily for 7 days. cholecalciferol 0.025 mg oral capsule (20 sources) Vitamin D Start: 024 cholecalciferol (vitamin D3) 25 mcg (1,000 unit) capsule cholecalciferol (vitamin D3) 25 mcg (1,000 unit) capsule, 0 Refill(s) Start Date: 02/10/24 Status: Ordered Start: 08-12-2019 End: 04-26-2025 take 1 capsule by mouth once daily Comment on above: Take 1 capsule by [facility] once daily. citalopram 40 mg oral tablet (20 sources) Serotonin Reuptake Inhibitor Start: 2 End: 2 take 2 tablets by mouth once daily citalopram (CELEXA) 20 mg tablet Indications: Recurrent major depression in partial remission (HCC) Take 2 tablets by mouth once daily. [facility] 05/24/2022 06/12/2022 Discontinued Start: 02-22-2020 End: 05-24-2022 [...] 1 tablet by cherrie once daily. Take 2 tablets by [facility] once daily. [facility] Take 40 mg by mouth once daily. clobetasol propionate 0.5 mg/ml topical cream (20 sources) Corticosteroid Start: 02-02-2025 End: 03-16-2025 apply 1 g topically once daily as needed Start: 07-14-2020 End: 09-29-2023 clobetasol (TEMOVATE) 0.05 [...] Ordered COMPOUNDED PRESCRIPTION (20 sources) Start: 09-09-20 16 COMPOUNDED PRESCRIPTION Indications: Degeneration of lumbar or lumbosacral intervertebral disc Tens unit DX: DDD of neck and lumbar spine 1 Each 0 09/09/2016 Active Comment on above: Tens unit DX: DDD of neck and lumbar spine 1 ml denosumab 60 mg/ml prefilled syringe (20 sources) RANK Ligand Inhibitor Start: 04-14-20 End: 07-15-20 25 0.5 ml dulaglutide 3 mg/ml auto-injector (20 sources) GLP-1 Receptor Agonist Start: 07-21-20 End: 08-11-20 Start: 05-16-2025 End: 07-21-2025 Dulaglutide (Trulicity) 0.75 mg/0.5 mL pen injector Discontinued 1.5 mg SC EVERY WEEK May 16, 2025 2:25pm July 21, 2025 11:41am Start: 02-02-2025 End: 05-16-2025 Dulaglutide (Trulicity) 0.75 mg/0.5 mL pen injector Discontinued 1.5 mg SC MO 2 1 April 26, 2025 7:57am May 16, 2025 [...] ointment (3 sources) Macrolide, Macrolide Antimicrobial Start: 10-14-2023 End: 10-21-2023 erythromycin (ROMYCIN) 5 mg/gram (0.5 %) ophthalmic ointment Indications: Hordeolum internum of right upper eyelid Use 1 application in the right eye four times daily for 7 days. 1 g 0 10/14/2023 10/21/2023 Active Comment on above: Use 1 application in the right eye four times daily for 7 days. Fluticasone Propion-Salmeterol (20 sources) Corticosteroid, beta2-Adrenergic Agonist Start: 11-08-2024 Start: 11-08-2024 Fluticasone Pr opion-Salmeterol 250-50 mcg/dose blister with device Active 1 NMA INHALATION TWICE A DAY November 08, 2024 1:00am Start: 02-10-2024 take 1 puff(s) by mo [facility] twice daily fluticasone-salmeterol 250 mcg-50 mcg inhalation [...] Discontinued Start: 02-28-2022 take 1 puff(s) by [facility] twice daily fluticasone-salmeterol (ADVAIR DISKUS) 250-50 mcg/dose inhaler Inhale 1 Puff as instructed twice daily. RINSE AND GARGLE MOUTH WITH WATER AFTER EACH USE. 1 Each 02/28/2022 Active Start: 02-12-2021 take 1 puff(s) by in halation twice daily fluticasone-salmeterol (ADVAIR, WIXELA) 250-50 mcg/dose Inhale 1 Puff as instructed twice daily. 60 Each 1 02/12/2021 Active Start: 02-12-2021 take 1 puff(s) by [facility] twice daily fluticasone-salmeterol (ADVAIR DISKUS) 250-50 mcg/dose [...] WITH WATER AFTER EACH USE. Mometasone-Formot fernie (20 sources) Corticosteroid, beta2-Adrenergic Agonist Start: 09-18-2020 take [...] GM IH DAILY September 18, 2020 1:00am iv contrast (will be provide d with radiology test) (4 sources) Start: 06-28-2024 [...] EACH PO DAILY April 01, 2018 12:00am lansoprazole 30 mg delayed release oral capsule (1 source) Proton Pump Inhibitor Start: 08-15-2025 take 1 capsule by mouth twice daily lisinopril 2.5 mg oral tablet (20 sources) Angiotensin Converting Enzyme Inhibitor Start: 07-14-2025 End: 08-11-2025 take 1 tablet by mouth once daily Start: 04-02-2018 End: 02-02-2025 take 1 tablet by mouth once daily Lisinopril 5 MG tablet Discontinued 5 mg PO DAILY 30 0 April 02, 2018 12:00am February 02, 2025 10:48am ondansetron 8 mg disintegrating oral tablet (20 sources) Serotonin-3 Receptor Antagonist Start: 08-22-2025 take 1 tablet by mouth every eight hours as needed for nausea and vomiting Start: 08-13-2025 End: 08-22-2025 take 1 tablet by mouth every eight hours as needed for nausea and vomiting Ondansetron 8 mg tablet,disintegrating Discontinued 8 mg PO Q8H as needed for nausea and vomiting August 13, 2025 12:00am August 22, 2025 1:55pm Start: 04-11-2018 End: 08-13-2025 take 1 tablet by mouth every eight hours as needed for nausea Ondansetron 4 mg tablet,disintegrating Discontinued 4 mg PO EVERY 8 HOURS NEEDED as needed for Nausea 30 July 28, 2025 12:31pm August 13, 2025 5:47am Comment on above: Take 1 tablet by cherrie th every 8 hours as needed. phenylephrine hydrochloride 25 mg/ml ophthalmic solution (1 source) alpha-1 Adrenergic Agonist Start: End: PHENYLephrine 2.5 % 1 Drop (AK-DILATE, NIEVES-SYNEPHRINE) predniSONE 20 mg oral tablet (1 source) Start: End: take 1 tablet by mouth once daily at mealtime predniSONE (DELTASONE) 20 mg tablet Indications: Acute pain of left shoulder Take 1 tablet by mouth once daily for 5 days. Take daily with food. 5 tablet 0 05/24/2022 05/29/2022 Active Comment on above: Take 1 tablet by cherrie th once daily for 5 days. Take daily with food. prochlorperazine 10 mg oral tablet (1 source) Phenothiazine Start: take 1 tablet by mouth every six hours as needed for nausea and vomiting raNITIdine 300 mg oral tablet (20 sources) Histamine-2 Receptor Antagonist Start: take 300 mg by mouth once daily [...] MG PO DAILY August 12, 2019 12:20pm 72 hr scopolamine 0.0139 mg/hr transdermal system (1 source) Anticholinergic Start: 08-15-2025 traZODone hydrochloride 100 mg oral tablet (20 sources) Serotonin Reuptake Inhibitor Start: 10-06-2017 End: 04-26-2025 take 1 tablet by mouth at bedtime Comment on above: Take 100 mg by mouth daily at bedtime. One or two tropicamide 10 mg/ml ophthalmic solution (1 source) Anticholinergic Start: 02-12-2022 End: 02-13-2022 tropicamide 1 % 1 Drop (MYDRIACYL) ubidecarenone 100 mg oral capsule (20 sources) Start: 04-26-2025 End: 07-28-2025 Start: 06-22-2016 End: 04-26-2025 Coenzyme Q10 (Co Q-10) 100 M G capsule Discontinued 100 mg PO DAILY June 22, 2016 12:00am April 26, 2025 8:01am supplement Start: 06-22-2016 End: 03-21-2023 take 1 capsule by mouth twice daily coenzyme Q10 (COENZYME Q-10) 100 mg cap capsule Take 1 capsule by mouth twice daily. 60 capsule 03/21/2023 Active Comment on above: Take 1 capsule by [facility] twice daily. Completed/Discontinued Medications Medication Drug Class(es) [...] 1 TABLET PO EVERY 6 HOURS NEEDED 10 12September 18, 2020 September 21, 2020 1:02am Start: 08-12-2019 End: 11-08-2024 Hydrocodone-Acetaminophen 1 EACH tablet Discontinued 1 {tbl} PO EVERY 8 HOURS NEEDED as needed for Pain Score 1-08/19August 12, 2019 12:00am November 08, 2024 5:37pm Start: 08-12-2019 take 1 tablet by cherrie th every eight hours as needed Hydrocodone-Acetaminophen Active 1 TABLE T PO EVERY 8 HOURS NEEDED August 12, 2019 12:00am [id number] 200 actuat albuterol 0.09 mg/actuat metered dose [...] breath. alendronic acid 70 mg oral tablet (19 sources) Bisphosphonate Start: End: take 1 tablet by mouth every week Alendronate (Fosamax) 70 mg tablet Discontinued 70 mg PO EVERY WEEK 12 0 April 13, 2025 12:00am April 14, 2025 1:08pm aminolevulinate 200 mg/ml topical solution (20 sources) Start: End: Aminolevulinic Acid HCl 20 % soln 1 Each benzonatate 100 mg oral capsule (20 sources) Non-narcotic Antitussive Start: End: take 1 capsule by mouth three times daily as needed for cough Benzonatate 100 MG capsule Discontinued 100 mg PO 3 TIMES DAILY NEEDED as needed for Cough August 12, 2019 12:00am November 08, 2024 5:37pm betamethasone 3 mg/ml / betamethasone acetate 3 mg/ml injectable suspension (1 source) Corticosteroid Start: End: betamethasone acetate-betamethasone sodium phosphate 6 mg [...] wice daily. celecoxib 100 mg oral capsule (20 sources) Nonsteroidal Anti-inflammatory Drug Start: 08-12-2019 End: 11-08-2024 take 1 capsule by mouth twice daily Celecoxib 100 MG capsule Discontinued 100 mg PO TWICE A DAY August 12, 2019 12:00am November 08, 2024 5:37pm estradiol 0.1 mg/ml vaginal cream (15 sources) Estrogen Start: 06-21-2025 End: 07-28-2025 Estradiol 0.01 % (0.1 mg/gram) cream Discontinued 0 VAGINAL .COMPLEX 42.5 2 June 21, 2025 12:00am July 28, 2025 1:46pm small amount(.25mg) as directed vaginal every other day X 4 weeks then twice a week; famotidine 20 mg oral tablet (20 sources) Histamine-2 Receptor Antagonist Start: 11-08-2024 End: 08-15-2025 take 1 tablet by mouth once daily Famotidine 20 mg tablet Discontinued 20 mg PO daily November 08, 2024 1:00am August 15, 2025 3:53pm Start: 03-26-2023 End: 04-17-2024 take 1 tablet [...] Take 20 mg by mouth once daily. fluconazole 150 mg oral tablet (8 sources) Azole Antifungal Start: 07-21-2025 End: 07-28-2025 Fluconazole 150 mg tablet Discontinued 150 mg PO .COMPLEX 2 0 July 21, 2025 12:00am July 28, 2025 1:46pm 150 mg PO take one po now and repeat in 3 days fluorouracil 50 mg/ml topical cream (20 sources) Nucleoside Metabolic Inhibitor Start: 02-02-2025 End: 07-28-2025 Fluorouracil 5 % cream Discontinued 1 NMA TOPICAL TWICE A DAY February 02, 2025 12:00am July 28, 2025 1:47pm Start: 07-17-2021 End: 06-24-2024 Fluorouracil (EFUDEX) 5 % cr eam Indications: [place] (actinic keratosis) Apply to affected areas twice daily for 2-4 weeks or until red blistering reaction occurs. 40 g 07/17/2021 06/24/2024 Discontinued Comment on above: Apply to affected ar eas twice daily for 2-4 weeks or until red blistering reaction occurs. furosemide 20 mg oral tablet (20 sources) Loop Diuretic Start: 9 End: 5 take 1 tablet by mouth once daily Furosemide 20 mg tablet Discontinued 20 mg PO DAILY 90 0 April 26, 2025 7:58am July 28, 2025 12:32pm Comment on above: Take 1 tablet by cherrie once daily. gabapentin 300 mg oral capsule (20 sources) Anti-epileptic Agent Start: 3 End: 3 take 1 capsule by mouth once daily [...] on above: Take 1 capsule by [facility] daily at bedtime for 90 days. lactobacillus acidophilus [id number] unt oral capsule (20 sources) Start: 04-01-2018 End: 11-08-2024 Lactobacillus Acidophilus [...] prior to placing new patch. Location: back LORazepam 0.5 mg oral tablet (20 sources) Benzodiazepine Start: End: take 1 tablet by mouth once daily [...] marrow biopsy. 1 tablet 08/02/2024 08/02/2024 Active meloxicam 15 mg oral tablet (20 sources) Nonsteroidal Anti-inflammatory Drug Start: 11-08-2024 End: 07-28-2025 take 1 tablet by mouth once daily Meloxicam 15 mg tablet Discontinued 15 mg PO daily 90 0 April 26, 2025 7:58am July 28, 2025 12:32pm Start: 04-28-2023 End: 10-10-2024 take 1 tablet by mouth once daily meloxicam (MOBIC) 15 mg tablet Take 1 tablet by mouth once daily. 90 tablet 3 10/16/2023 10/10/2024 Comment on above: Take 1 tablet by cherrie th once daily. metFORMIN hydrochloride 500 mg oral tablet (20 sources) Biguanide Start: End: take 1 tablet by mouth twice daily Metformin 500 mg tablet Discontinued 500 mg PO TWICE A DAY 180 0 July 28, 2025 12:31pm August 11, 2025 12:20pm Start: 09-29-2023 End: 06-14-2024 take 1 tablet [...] mouth at bedtime Montelukast 10 mg tablet Discontinued 10 mg PO AT BEDTIME 90 0 April 26, 2025 7:59am July 28, 2025 12:32pm allergies Comment on above: Take 1 tablet by cherrie th daily at bedtime. olmesartan medoxomil 20 mg oral tablet (20 sources) Angiotensin 2 Receptor Sharif Start: 3 End: take 0.5 tablet by mouth once daily [...] mouth once daily. Take 1 tablet by cherrie th once daily. omeprazole 40 mg delayed release oral capsule (20 sources) Proton Pump Inhibitor Start: 5 End: take 1 capsule by mouth twice daily Omeprazole 40 mg capsule,delayed release(DR/EC) Discontinued 40 mg PO TWICE A DAY 90 1 May 09, 2025 3:47pm May 09, 2025 3:48pm pantoprazole 40 mg delayed release oral tablet (20 sources) Proton Pump Inhibitor Start: End: take 1 tablet by mouth once daily Pantoprazole 40 mg tablet,delayed release (DR/EC) Discontinued 40 mg PO daily 90 3 May 09, 2025 12:00am August 15, 2025 3:53pm Start: 08-12-2019 End: 04-26-2025 take 1 tablet by mouth once daily Pantoprazole 40 MG tablet Discontinued 40 mg PO DAILY August 12, 2019 12:00am April 26, 2025 7:59am Comment on above: Take 1 tablet by cherrie th once daily. pseudoephedrine hydrochloride 60 mg oral tablet (20 sources) alpha-Adrenergic Agonist Start: 2018 End: 2023 [...] mg tablet Discontinued 20 mg PO daily 90 0 April 26, 2025 7:59am June 21, 2025 10:57am Start: 10-06-2017 End: 11-08-2024 take 1 tablet by mouth at bedtime Rosuvastatin 10 MG tablet Discontinued 10 mg PO AT BEDTIME October 06, 2017 1:00am November 08, 2024 5:36pm cholesterol Comment on above: Take 1 tablet by cherrie th daily at bedtime. tiZANidine 4 mg oral tablet (20 sources) Central alpha-2 Adrenergic Agonist Start: 7 End: 4 take 4-8 mg by mouth twice daily as needed for pain Tizanidine 4 MG tablet Discontinued 4 - 8 mg PO TWICE DAILY NEEDED as needed for Pain October 06, 2017 1:00am November 08, 2024 5:37pm Problems Active Problems Problem Classification Problem Date Documented Da te Episodic/Chronic Abdominal hernia (20 sources) Diaphragmatic hernia; Translations: [Diaphragmatic hernia without obstruction or gangrene] 05-22-2018 Episodic Comment on above: entered in error Abdominal pain (20 sources) Epigastric pain; Translations: [Epigastric pain] Onset: 4 Episodic Administrative/social admission (15 sources) First encounter by subject; Translations: [Persons encountering health services in other specified circumstances] 03-16-2025 Episodic Anxiety disorders (13 sources) Mixed anxiety and depressive disorder; Translations: [Anxiety disorder, unspecified] 06-27-2025 Chronic Asthma (20 sources) Asthma; Translations: [Unspecified asthma, uncomplicated] Onset: 5 Chronic Biliary tract disease (20 sources) Cholelithiasis without obstruction; Translations: [Calculus of gallbladder without cholecystitis without obstruction] 05-22-2018 Episodic Comment on above: entered in error Cardiac dysrhythmias (2 sources) Supraventricular tachycardia; Translations: [Supraventricular tachycardia] Chronic Cataract (1 source) Bilateral senile combined form cataracts of eyes; Translations: [Combined forms of age-related cataract, bilateral] Chronic Chronic obstructive pulmonary disease and bronchiectasis (20 sources) Chronic obstructive lung disease; Translations: [Chronic obstructive pulmonary disease, unspecified] Onset: 5 Resolved: 1 03-28-2017 Chronic Chronic ulcer of skin (20 sources) Ulcer of lower extremity; Translations: [Non-pressure chronic ulcer of unspecified part of left lower leg with fat layer exposed] 09-18-2020 Chronic Complications of surgical procedures or medical care (20 sources) Non-healing surgical wound; Translations: [Other complications of procedures, not elsewhere classified, initial encounter] 09-18-2020 Episodic Conditions associated with dizziness or vertigo (20 sources) Dizziness and giddiness; Translations: [Dizziness and giddiness] Onset: 2 Resolved: 8 12-05-2017 Episodic Deficiency and other anemia (1 [...] Resolved: 8 Chronic Diabetes mellitus without complication (20 sources) Hyperglycemia; Translations: [Hyperglycemia, unspecified] 01-20-2023 Episodic [...] Translations: [Unspecified chronic gastritis without bleeding] Chronic Gastritis and duodenitis (2 sources) Gastritis; Translations: [Gastritis, unspecified, without bleeding] 08-13-2025 Episodic Genitourinary symptoms and ill-defined conditions (20 sources) Increased frequency of urination; Translations: [Frequency of micturition] 06-14-2025 Episodic Immunizations and screening for infectious disease (2 sources) Needs influenza immunization; Translations: [Encounter for immunization] Episodic Inflammatory diseases of female pelvic organs (2 sources) Acute vaginitis; Translations: [Acute vaginitis] Onset: 4 Episodic Menopausal disorders (20 sources) Atrophy of vagina; Translations: [Postmenopausal atrophic vaginitis] Onset: 5 06-14-2025 Chronic Comment on above: estradiol cream estradiol cream/caus ed vaginitis sx and stopped Mood disorders (20 sources) Depressive disorder; Translations: [Depression] Onset: 5 05-15-2015 Chronic Nausea and vomiting (20 sources) Nausea; Translations: [Nausea] Onset: 5 Episodic Neoplasms of unspecified nature or uncertain behavior (20 sources) Monoclonal gammopathy (clinical); Translations: [Monoclonal gammopathy] Onset: 4 06-02-2024 Chronic Noninfectious gastroenteritis (20 sources) Colitis; Translations: [Noninfective gastroenteritis and colitis, unspecified] Onset: 5 08-13-2019 Episodic Nonspecific chest pain (20 sources) Chest pain; Translations: [Chest pain, unspecified] Onset: 5 Episodic Nutritional deficiencies (3 sources) Vitamin D deficiency; Translations: [Vitamin D deficiency, unspecified] Chronic Nutritional deficiencies (20 sources) Vitamin deficiency; Translations: [Vitamin deficiency, unspecified] 03-16-2025 Episodic Open wounds of extremities (20 sources) Laceration of finger; Translations: [Laceration without foreign body of unspecified finger without damage to nail, initial encounter] 02-05-2023 Episodic Osteoporosis (20 sources) Osteoporosis; Translations: [Age-related osteoporosis without current pathological fracture] Onset: 5 05-22-2018 Chronic Comment on above: entered in error Other circulatory disease (13 sources) Elevated blood pressure; Translations: [Elevated blood-pressure reading, without diagnosis of hypertension] 06-27-2025 Episodic Other connective tissue disease (20 sources) Calcific tendinitis of right shoulder; Translations: [Calcific tendinitis of right shoulder] 09-19-2020 Episodic Other diseases of kidney and ureters (20 sources) Cyst of kidney; Translations: [Cyst of kidney, acquired] Onset: 1 04-02-2021 Episodic Other eye disorders (1 source) Asteroid hyalosis of left eye; Translations: [Crystalline deposits in vitreous body, left eye] Chronic Other eye disorders (1 source) Lesion of right lower eyelid; Translations: [Unspecified disorder of eyelid] Episodic Other female genital disorders (18 sources) Burning sensation of vagina; Translations: [Other specified conditions associated with female genital organs and menstrual cycle] 07-20-2025 Episodic Other female genital disorders (1 source) Other specified noninflammatory disorders of vagina; Translations: [Other specified noninflammatory disorders of vagina] Onset: 5 Episodic Other female genital disorders (1 source) Other specified conditions associated with female genital organs and menstrual cycle; Translations: [Other specified conditions associated with female genital organs and menstrual cycle] Onset: 5 Episodic Other gastrointestinal disorders (20 sources) Dysphagia; Translations: [Dysphagia, unspecified] Onset: 8 11-25-2017 Episodic Other gastrointestinal disorders (20 sources) History of rectal bleeding; Translations: [Personal history of other diseases of the digestive system] 05-22-2018 Episodic Other gastrointestinal disorders (20 sources) Diarrhea; Translations: [Diarrhea, unspecified] Episodic Other hematologic [...] [Pleurodynia] 09-10-2023 Episodic Other lower respiratory disease (20 sources) Cough; Translations: [Cough] 04-06-2025 Episodic Other lower respiratory disease (16 sources) Dyspnea; Translations: [Shortness of breath] 07-28-2025 Episodic Other nervous system disorders (20 sources) Bilateral carpal tunnel syndrome; Translations: [Carpal tunnel syndrome, bilateral upper limbs] Onset: 8 08-27-2018 Chronic Other nervous system disorders (5 sources) Cervical myelopathy; Translations: [Disease of spinal cord, unspecified] 08-12-2025 Chronic Other nervous system disorders (1 source) Disease of spinal cord, unspecified; Translations: [Disease of spinal cord, unspecified] Onset: 5 Chronic Other non-traumatic joint disorders (4 sources) [...] shoulder] 03-27-2023 Episodic Other non-traumatic joint disorders (20 sources) Pain in left shoulder; Translations: [Pain in joint, shoulder region] Onset: 5 06-10-2022 Episodic Other non-traumatic joint disorders (20 sources) Pain in right shoulder; Translations: [Pain in joint, shoulder region] Onset: 5 06-10-2022 Episodic Other non-traumatic joint disorders (14 sources) Chronic pain of left upper limb; Translations: [Pain in left shoulder] 06-27-2025 Episodic Other nutritional; endocrine; and metabolic disorders (20 sources) Obesity; Translations: [Obesity, unspecified] 09-18-2020 Chronic Other nutritional; endocrine; and metabolic disorders (2 sources) Hypercalcemia; Translations: [Hypercalcemia] Chronic Other nutritional; endocrine; and metabolic disorders (20 sources) H/O: diabetes mellitus; Translations: [Personal history of other endocrine, nutritional and metabolic disease] 02-05-2023 Episodic Other screening for suspected conditions (not mental disorders or infectious disease) (20 sources) Patient encounter status; Translations: [Encounter for other screening for malignant neoplasm of breast] Onset: Episodic Other skin disorders (1 source) Vesicular hand eczema; Translations: [Dyshidrosis [pompholyx]] 09-29-2023 Episodic Other skin disorders (20 sources) Eruption; Translations: [Rash and other nonspecific skin eruption] 03-16-2025 Episodic Phlebitis; thrombophlebitis and thromboembolism (20 sources) History of thromboembolism of vein; Translations: [Personal history of other venous thrombosis and embolism] 05-22-2018 Episodic Comment on above: entered in error Prolapse of female genital organs (20 sources) Midline cystocele; Translations: [Cystocele, midline] 06-14-2025 Chronic Pulmonary heart disease (20 sources) Pulmonary hypertension; Translations: [Pulmonary hypertension, unspecified] Onset: 8 12-08-2017 Chronic Residual codes; unclassified (1 source) History of squamous cell carcinoma; Translations: [Other specified postprocedural states] Episodic Residual codes; unclassified (1 source) At risk of polypharmacy; Translations: [Other specified personal risk factors, not elsewhere classified] 09-29-2023 Episodic Residual codes; unclassified (15 sources) Medication refused; Translations: [Immunization not carried out because of patient refusal] 03-16-2025 Episodic Residual codes; unclassified (15 sources) Postmenopausal state; Translations: [Asymptomatic menopausal state] 03-16-2025 Episodic Residual codes; unclassified (20 sources) H/O: urinary disease; Translations: [Personal history of other specified conditions] 06-10-2025 Episodic Retinal detachments; defects; vascular occlusion; and [...] dependence, cigarettes, uncomplicated] Onset: 5 Chronic Syncope (7 sources) Syncope and collapse; Translations: [Syncope and collapse] Onset: 3 09-10-2023 Episodic Thyroid disorders (20 sources) Non-toxic multinodular goiter; Translations: [Nontoxic multinodular goiter] Onset: 5 02-23-2024 Chronic Unclassified (19 sources) Pelvic pain in female; Translations: [R10.2 - Pelvic and perineal pain] Unclassified (20 sources) R07.9 - Chest pain, unspecified Unclassified (2 sources) Mid back pain on right side Unclassified (20 sources) M54.9 - Dorsalgia, unspecified Unclassified (5 sources) Chronic left shoulder pain Unclassified (18 sources) M25.512 - Pain in left shoulder,G89.29 - Other chronic pain Unclassified (3 sources) Left shoulder pain Unclassified (3 sources) Right shoulder pain Unclassified (14 sources) M25.512 - Pain in left shoulder,M25.511 - Pain in right shoulder Unclassified (8 sources) Chronic pain of left upper limb Unclassified (8 sources) Left shoulder pain Unclassified (8 sources) Right shoulder pain Unclassified (1 source) Other intervertebral disc degeneration, 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 extremity pain; Translations: [Other intervertebral disc degeneration, 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 extremity pain] Onset: 5 Unclassified (1 source) Cough, unspecified; Translations: [Cough, unspecified] Onset: 5 Past or Other Problems Problem Classification Problem Date Documented Da te Episodic/Chronic Allergic reactions (20 sources) Solar degeneration; Translations: [Other skin changes due to chronic exposure to nonionizing radiation] Onset: 12-09-2012 12-09-2012 Episodic Cardiac dysrhythmias (20 sources) Palpitations; Translations: [Palpitations] Onset: 05-16-2025 Episodic Deficiency and other anemia (1 source) [...] Onset: 05-15-2015 Resolved: 12-05-2017 12-05-2017 Episodic Other diseases of kidney and ureters (1 source) Cyst of kidney, acquired; Translations: [Cyst of kidney, acquired] Onset: 03-16-2025 Episodic Other gastrointestinal disorders (3 sources) Dysphagia, unspecified; Translations: [Dysphagia, unspecified] Onset: 11-25-2017 Episodic Other gastrointestinal disorders (20 sources) Difficulty swallowing pills; Translations: [Dysphagia, unspecified] Onset: 05-17-2015 Resolved: 01-24-2022 01-24-2022 Episodic Other gastrointestinal disorders (1 source) Diarrhea, unspecified; Translations: [Diarrhea, unspecified] Onset: 03-18-2025 Episodic Other lower respiratory disease (1 source) Shortness of breath; Translations: [Shortness of breath] Onset: 04-06-2025 Episodic Other lower respiratory disease (1 source) Other nonspecific abnormal finding of lung field; Translations: [Other nonspecific abnormal finding of lung field] Onset: 03-22-2025 Episodic Other nervous system disorders (20 sources) [...] system] Onset: 03-14-2016 Resolved: 12-05-2017 12-05-2017 Episodic Residual codes; unclassified (1 source) Personal history of other specified conditions; Translations: [Personal history of other specified conditions] Onset: 06-10-2025 Episodic Residual codes; unclassified (1 source) Asymptomatic menopausal state; Translations: [Asymptomatic menopausal state] Onset: 04-06-2025 Episodic Unclassified (1 source) Family history of colonic polyps; Translations: [Family history of colonic polyps] Onset: 11-25-2017 Episodic Results Test Name Value Interpretation Reference Range Facility Orthopedic Visit Reporton Orthopedic Visit Report Normal [facility] Gastroenterology Visit Repor ton 09-08-2025 Gastroenterology Visit Report Normal [facility] Gastric Emptying Studyon Gastric Emptying Study Normal [facility] Genital Culture Comprehensiv endy 08-27-2025 VAC Normal [facility] Comment on above: Performed By: #### M 100.3200, M100.2000 ####[facility] [address] [place], [place], [address] Spine Cervical (Routine)on 1 Spine Cervical (Routine) Normal [facility] 12 Lead EKGon 08-13-2025 12 Lead EKG Normal [facility] Abdomen/Pelvis W IV Cont ONL Yon 08-13-2025 Abdomen/Pelvis W IV Cont ONLY Normal [facility] Absolute lymphocyte countOrd ered By: Carlos Jorgensen on 08-13-2025 Lymphocytes Auto (Unsp spec) [#/Vol] 4.37 10*3/uL 0.83-4.51 [facility] Absolute neutrophil countOrd ered By: Calros Jorgensen on 08-13-2025 Neutrophils (Bld) [#/Vol] 4.2 10*3/uL 2.0-7.7 [facility] Activated partial thrombopla stin time (aPTT) in platelet poor plasma by coagulation aOrdered By: Carlos Jorgensen on 08-13-2025 aPTT Coag (PPP) [Time] 26.0 s 24.1-36.2 [facility] Anion gap in Serum or Plasma Ordered By: Carlos Jorgensen on 08-13-2025 Anion gap [Moles/Vol] 14 mmol/L 5-15 [facility] Automated lymphocyte count a s percentage of total leukocytesOrdered By: Carlos Jorgensen on 08-13-2025 Lymphocytes/100 WBC Auto (Unsp spec) 47.5 % High 19-41 [facility] BUN/creatinine ratioOrdered By: Carlos Jorgensen on 08-13-2025 Urea nitrogen/Creatinine [Mass ratio] 13.7 mg/mg 08-29 [facility] Basic Metabolic Profile (BMP )on 08-13-2025 BUN/CRE 13.7 RATIO Normal 08-29 [facility] Comment on above: Performed By: #### L 100.0100, L500.2500, L501.4021 ####[facility] [address] [place], [address] Calcium [Mass/Vol] 9.4 mg/dL Normal 7.6-11.0 [facility] Comment on above: Performed By: #### L 100.0100, L500.2500, L501.4021 ####[facility] [address] [place], [address] Chloride [Moles/Vol] 94 mmol/L Low 98-108 [facility] Comment on above: Performed By: #### L 100.0100, L500.2500, L501.4021 ####[facility] [address] [place], [address] CO2 [Moles/Vol] 23.1 mmol/L Normal 21.0-32.0 [facility] Comment on above: Performed By: #### L 100.0100, L500.2500, L501.4021 ####[facility] [address] [place], [address] Creatinine [Mass/Vol] 0.66 mg/dL Low 0.70-1.20 [facility] Comment on above: Performed By: #### L 100.0100, L500.2500, L501.4021 ####[facility] [address] [place], [address] ECRCL 84.96 ml/min Normal 50-250 [facility] Comment on above: Performed By: #### L 100.0100, L500.2500, L501.4021 ####[facility] [address] [place], [address] GAP 14 Normal 5-15 [facility] Comment on above: Performed By: #### L 100.0100, L500.2500, L501.4021 ####[facility] [address] [place], [address] GFR/1.73 sq M.predicted among non-blacks MDRD (S/P/Bld) [Vol rate/Area] 96 mL/min/{1.73_m2} Normal >60 [facility] Comment on above: Result Comment: mL/m in/1.73m2 CKD-EPI Creatinine Equation (2020) Performed By: #### L 100.0100, L500.2500, L501.4021 ####[facility] [address] [place], [address] Glucose [Mass/Vol] 104 mg/dL High 70-99 [facility] Comment on above: Performed By: #### L 100.0100, L500.2500, L501.4021 ####[facility] [address] [place], [address] Potassium [Moles/Vol] 3.9 mmol/L Normal 3.3-5.1 [facility] Comment on above: Performed By: #### L 100.0100, L500.2500, L501.4021 ####[facility] [address] [place], [address] Sodium [Moles/Vol] 132 mmol/L Low 133-145 [facility] Comment on above: Performed By: #### L 100.0100, L500.2500, L501.4021 ####[facility] [address] [place], [address] Urea nitrogen [Mass/Vol] 9 mg/dL Normal 4-19 [facility] Comment on above: Performed By: #### L 100.0100, L500.2500, L501.4021 ####[facility] [address] [place], [address] Basophil percentageOrdered B y: Carlos Jorgensen on 08-13-2025 Basophils/100 WBC (Bld) 0.3 % 0-1 [facility] CBC W/Diff, Automatedon Absolute Lymph 4.37 X10 3/uL Normal 0.83-4.51 [facility] Comment on above: Performed By: #### L 100.0100, L500.2500, L501.4021 ####[facility] [address] [place], [address] Absolute Neut 4.2 X10 3/uL Normal 2.0-7.7 [facility] Comment on above: Performed By: #### L 100.0100, L500.2500, L501.4021 ####[facility] [address] [place], [address] Basophils/100 WBC (Bld) 0.3 % Normal 0-1 [facility] Comment on above: Performed By: #### L 100.0100, L500.2500, L501.4021 ####[facility] [address] [place], [address] Eosinophils/100 WBC (Bld) 0.5 % Normal 0-5 [facility] Comment on above: Performed By: #### L 100.0100, L500.2500, L501.4021 ####[facility] [address] [place], [address] Erythrocyte distribution width (RBC) [Ratio] 14.7 % High 11.6-14.6 [facility] Comment on above: Performed By: #### L 100.0100, L500.2500, L501.4021 ####[facility] [address] [place], [address] Hematocrit (Bld) [Volume fraction] 36.4 % Low 37-47 [facility] Comment on above: Performed By: #### L 100.0100, L500.2500, L501.4021 ####[facility] [address] [place], [address] Hemoglobin (Bld) [Mass/Vol] 12.4 g/dL Normal 12.0-15.0 [facility] Comment on above: Performed By: #### L 100.0100, L500.2500, L501.4021 ####[facility] [address] [place], [address] IG% 0.300 Normal 0.0-0.9 [facility] Comment on above: Result Comment: IG% - Immature Granulocytes (promyelocytes, myelocytes andmetamyelocytes) > 1% indicates that a LEFT SHIFT is Present. Performed By: #### L 100.0100, L500.2500, L501.4021 ####[facility] [address] [place], [address] Lymphocytes/100 WBC (Bld) 47.5 % High 19-41 [facility] Comment on above: Performed By: #### L 100.0100, L500.2500, L501.4021 ####[facility] [address] [place], [address] MCH (RBC) [Entitic mass] 28.4 pg Normal 27.0-32.0 [facility] Comment on above: Performed By: #### L 100.0100, L500.2500, L501.4021 ####[facility] [address] [place], [address] MCHC (RBC) [Mass/Vol] 34.1 g/dL Normal 32-36 [facility] Comment on above: Performed By: #### L 100.0100, L500.2500, L501.4021 ####[facility] [address] [place], [address] MCV (RBC) [Entitic vol] 83.5 fL Normal 81-99 [facility] Comment on above: Performed By: #### L 100.0100, L500.2500, L501.4021 ####[facility] [address] [place], [address] Monocytes/100 WBC (Bld) 5.9 % Normal 0-10 [facility] Comment on above: Performed By: #### L 100.0100, L500.2500, L501.4021 ####[facility] [address] [place], [address] Neutrophils/100 WBC (Bld) 45.5 % Low 47-70 [facility] Comment on above: Performed By: #### L 100.0100, L500.2500, L501.4021 ####[facility] [address] [place], [address] Nucleated RBC (Bld) [#/Vol] 0 10*3/uL Normal 0-5 [facility] Comment on above: Performed By: #### L 100.0100, L500.2500, L501.4021 ####[facility] [address] [place], [address] Platelet mean volume (Bld) [Entitic vol] 9.0 fL Normal 6.2-12.0 [facility] Comment on above: Performed By: #### L 100.0100, L500.2500, L501.4021 ####[facility] [address] [place], [address] Platelets (Bld) [#/Vol] 302 10*3/uL Normal 150-450 [facility] Comment on above: Performed By: #### L 100.0100, L500.2500, L501.4021 ####[facility] [address] [place], [address] RBC (Bld) [#/Vol] 4.36 10*6/uL Normal 4.2-5.4 [facility] Comment on above: Performed By: #### L 100.0100, L500.2500, L501.4021 ####[facility] [address] [place], [address] RDW SD 45.1 fl High 35.1-43.9 [facility] Comment on above: Performed By: #### L 100.0100, L500.2500, L501.4021 ####[facility] [address] [place], [address] WBC (Bld) [#/Vol] 9.2 10*3/uL Normal 4.4-11.0 [facility] Comment on above: Performed By: #### L 100.0100, L500.2500, L501.4021 ####[facility] [address] [place], [address] Carbon dioxide, total [Moles /volume] in Central venous bloodOrdered By: Carlos Jorgensen on 08-13-2025 CO2 [Moles/Vol] 23.1 mmol/L 21.0-32.0 [facility] Chest 1 View (Portable)on Chest 1 View (Portable) Normal [facility] Chloride assayOrdered By: Karoline Jorgensen on 08-13-2025 Chloride [Moles/Vol] 94 mmol/L Low 98-108 [facility] Emergency Department Summary on 08-13-2025 Emergency Department Summary Normal [facility] Eosinophil percentageOrdered By: Carlos Jorgensen on 08-13-2025 Eosinophils/100 WBC (Bld) 0.5 % 0-5 [facility] Erythrocyte distribution wid th ratioOrdered By: Carlos Jorgensen on 08-13-2025 Erythrocyte distribution width (RBC) [Ratio] 14.7 % High 11.6-14.6 [facility] Erythrocyte distribution wid th standard deviationOrdered By: Carlos Jorgensen on 08-13-2025 Erythrocyte distribution width (RBC) [Ratio] 45.1 fl High 35.1-43.9 [facility] Glomerular filtration rate ( GFR) estimation/1.73 sq m using serum, plasma, or whole bOrdered By: Carlos Jorgensen on 08-13-2025 GFR/1.73 sq M.predicted among non-blacks MDRD (S/P/Bld) [Vol rate/Area] 96 mL/min/{1.73_m2} >60 [facility] Comment on above: mL/min/1.73m2 CKD-EP I Creatinine Equation (2020) Hematocrit Auto (Bld) [Volum e fraction]Ordered By: Carlos Jorgensen on 08-13-2025 Hematocrit (Bld) [Volume fraction] 36.4 % Low 37-47 [facility] Hemoglobin measurementOrdere d By: Carlos Jorgensen on 08-13-2025 Hemoglobin (Bld) [Mass/Vol] 12.4 g/dL 12.0-15.0 [facility] Immature granulocytes/100 WB C Auto (Bld)Ordered By: Carlos Jorgensen on 08-13-2025 Immature granulocytes/100 WBC (Bld) 0.300 % 0.0-0.9 [facility] Comment on above: IG% - Immature Granu locytes (promyelocytes, myelocytes and metamyelocytes) > 1% indicates that a LEFT SHIFT is Present. L501.4021on 08-13-2025 Trop T High Sen 8 ng/L Normal <=14 [facility] Comment on above: Performed By: #### L 100.0100, L500.2500, L501.4021 ####[facility] [address] [place], [address] MCV (mean corpuscular volume ) determinationOrdered By: Carlos Jorgensen on 08-13-2025 MCV (RBC) [Entitic vol] 83.5 fL 81-99 [facility] Mean corpuscular hemoglobin (MCH) determinationOrdered By: Carlos Jorgensen on 08-13-2025 MCH (RBC) [Entitic mass] 28.4 pg 27.0-32.0 [facility] Mean corpuscular hemoglobin concentration (MCHC) determinationOrdered By: Carlos Jorgensen on 08-13-2025 MCHC (RBC) [Mass/Vol] 34.1 g/dL 32-36 [facility] Mean platelet volume determi nationOrdered By: Carlos Jorgensen on 08-13-2025 Platelet mean volume (Bld) [Entitic vol] 9.0 fL 6.2-12.0 [facility] Monocyte percentageOrdered B y: Carlos Jorgensen on 08-13-2025 Monocytes/100 WBC (Bld) 5.9 % 0-10 [facility] Neutrophil percentageOrdered By: Carlos Jorgensen on 08-13-2025 Neutrophils/100 WBC (Bld) 45.5 % Low 47-70 [facility] Nucleated red blood cell per centageOrdered By: Carlos Jorgensen on 08-13-2025 Nucleated RBC/100 WBC (Bld) [Ratio] 0 % 0-5 [facility] Partial Thromboplast Timeon 08-13-2025 aPTT Coag (Bld) [Time] 26.0 s Normal 24.1-36.2 [facility] Comment on above: Performed By: #### L 300.8562 ####[facility] [address] [place], [place], [address] Platelet countOrdered By: Karoline Jorgensen on 08-13-2025 Platelets (Bld) [#/Vol] 302 10*3/uL 150-450 [facility] Potassium measurement (mass/ volume)Ordered By: Carlos Jorgensen on 08-13-2025 Potassium (Unsp spec) [Mass/Vol] 3.9 mmol/L 3.3-5.1 [facility] RBC Auto (Bld) [#/Vol]Ordere d By: Carlos Jorgensen on 08-13-2025 RBC (Bld) [#/Vol] 4.36 10*6/uL 4.2-5.4 [facility] Serum creatinine measurement (mass/volume)Ordered By: Carlos Jorgensen on 08-13-2025 Creatinine [Mass/Vol] 0.66 mg/dL Low 0.70-1.20 [facility] Serum glucose measurement (m ass/volume)Ordered By: Carlos Jorgensen on 08-13-2025 Glucose [Mass/Vol] 104 mg/dL High 70-99 [facility] Serum or plasma calcium bernard urement (mass/volume)Ordered By: Carlos Jorgensen on 08-13-2025 Calcium [Mass/Vol] 9.4 mg/dL 7.6-11.0 [facility] Serum or plasma urea nitroge n measurement (mass/volume)Ordered By: Carlos Jorgensen on 08-13-2025 Urea nitrogen [Mass/Vol] 9 mg/dL 4-19 [facility] Sodium levelOrdered By: Anthony Jorgensen on 08-13-2025 Sodium [Moles/Vol] 132 mmol/L Low 133-145 [facility] Troponin T HS 2 HRon 025 Trop T High Sen 11 ng/L Normal <=14 [facility] Comment on above: Performed By: #### L 499.0042 ####[facility] [address] [place], [place], [address] Troponin T HS 4 HRon 025 Trop T High Sen 8 ng/L Normal <=14 [facility] Comment on above: Performed By: #### L 499.0043 ####[facility] [address] [place], [place], [id number] Troponin T.cardiac [Mass/vol ume] in Serum or Plasma by High sensitivity methodOrdered By: Carlos Jorgensen on 08-13-2025 Troponin T.cardiac High sensitivity method [Mass/Vol] 8 ng/L <14 [facility] Troponin T.cardiac High sensitivity method [Mass/Vol] 11 ng/L <14 [facility] Troponin T.cardiac High sensitivity method [Mass/Vol] 8 ng/L <14 [facility] White blood cell (WBC) count Ordered By: Carlos Jorgensen on 08-13-2025 WBC (Bld) [#/Vol] 9.2 10*3/uL 4.4-11.0 [facility] Cerv Spine 4 or 5 Viewson Cerv Spine 4 or 5 Views Normal [facility] L/S Spine Min 4 Viewson 10-0 L/S Spine Min 4 Views Normal [facility] Orthopedic Visit Reporton Orthopedic Visit Report Normal [facility] Thoracic Spine 2 Viewson Thoracic Spine 2 Views Normal [facility] Absolute lymphocyte countOrd ered By: Evelia Kimble on 07-28-2025 Lymphocytes Auto (Unsp spec) [#/Vol] 3.60 10*3/uL 0.83-4.51 [facility] Absolute neutrophil countOrd ered By: Evelia Kimble on 07-28-2025 Neutrophils (Bld) [#/Vol] 4.5 10*3/uL 2.0-7.7 [facility] Anion gap in Serum or Plasma Ordered By: Evelia Kimble on 07-28-2025 Anion gap [Moles/Vol] 15 mmol/L 5-15 [facility] Automated lymphocyte count a s percentage of total leukocytesOrdered By: Evelia Kimble on 07-28-2025 Lymphocytes/100 WBC Auto (Unsp spec) 41.1 % High 19-41 [facility] BUN/creatinine ratioOrdered By: Evelialucian Kimble on 07-28-2025 Urea nitrogen/Creatinine [Mass ratio] 10.0 mg/mg 10-20 [facility] Basophil percentageOrdered B y: Evelia Kimble on 07-28-2025 Basophils/100 WBC (Bld) 0.3 % 0-1 [facility] Bilirubin, totalOrdered By: Evelia Kimble on 07-28-2025 Bilirubin [Mass/Vol] 0.36 mg/dL 0.00-1.30 [facility] CBC W/Diff, Automatedon 07-11 Absolute Lymph 3.60 X10 3/uL Normal 0.83-4.51 [facility] Comment on above: Performed By: #### L 500.4050, L100.0100 ####[facility] [address] [place], [address] Absolute Neut 4.5 X10 3/uL Normal 2.0-7.7 [facility] Comment on above: Performed By: #### L 500.4050, L100.0100 ####[facility] [address] [place], [address] Basophils/100 WBC (Bld) 0.3 % Normal 0-1 [facility] Comment on above: Performed By: #### L 500.4050, L100.0100 ####[facility] [address] [place], [address] Eosinophils/100 WBC (Bld) 0.5 % Normal 0-5 [facility] Comment on above: Performed By: #### L 500.4050, L100.0100 ####[facility] [address] [place], [address] Erythrocyte distribution width (RBC) [Ratio] 14.5 % Normal 11.6-14.6 [facility] Comment on above: Performed By: #### L 500.4050, L100.0100 ####[facility] [address] [place], [address] Hematocrit (Bld) [Volume fraction] 36.0 % Low 37-47 [facility] Comment on above: Performed By: #### L 500.4050, L100.0100 ####[facility] [address] [place], [address] Hemoglobin (Bld) [Mass/Vol] 12.1 g/dL Normal 12.0-15.0 [facility] Comment on above: Performed By: #### L 500.4050, L100.0100 ####[facility] [address] [place], [address] IG% 0.200 Normal 0.0-0.9 [facility] Comment on above: Result Comment: IG% - Immature Granulocytes (promyelocytes, myelocytes andmetamyelocytes) > 1% indicates that a LEFT SHIFT is Present. Performed By: #### L 500.4050, L100.0100 ####[facility] [address] [place], [address] Lymphocytes/100 WBC (Bld) 41.1 % High 19-41 [facility] Comment on above: Performed By: #### L 500.4050, L100.0100 ####[facility] [address] [place], [address] MCH (RBC) [Entitic mass] 28.4 pg Normal 27.0-32.0 [facility] Comment on above: Performed By: #### L 500.4050, L100.0100 ####[facility] [address] [place], [address] MCHC (RBC) [Mass/Vol] 33.6 g/dL Normal 32-36 [facility] Comment on above: Performed By: #### L 500.4050, L100.0100 ####[facility] [address] [place], [address] MCV (RBC) [Entitic vol] 84.5 fL Normal 81-99 [facility] Comment on above: Performed By: #### L 500.4050, L100.0100 ####[facility] [address] [place], [address] Monocytes/100 WBC (Bld) 6.1 % Normal 0-10 [facility] Comment on above: Performed By: #### L 500.4050, L100.0100 ####[facility] [address] [place], [address] Neutrophils/100 WBC (Bld) 51.8 % Normal 47-70 [facility] Comment on above: Performed By: #### L 500.4050, L100.0100 ####[facility] [address] [place], [address] Nucleated RBC (Bld) [#/Vol] 0 10*3/uL Normal 0-5 [facility] Comment on above: Performed By: #### L 500.4050, L100.0100 ####[facility] [address] [place], [address] Platelet mean volume (Bld) [Entitic vol] 9.6 fL Normal 6.2-12.0 [facility] Comment on above: Performed By: #### L 500.4050, L100.0100 ####[facility] [address] [place], [address] Platelets (Bld) [#/Vol] 318 10*3/uL Normal 150-450 [facility] Comment on above: Performed By: #### L 500.4050, L100.0100 ####[facility] [address] [place], [address] RBC (Bld) [#/Vol] 4.26 10*6/uL Normal 4.2-5.4 [facility] Comment on above: Performed By: #### L 500.4050, L100.0100 ####[facility] [address] [place], [address] RDW SD 44.4 fl High 35.1-43.9 [facility] Comment on above: Performed By: #### L 500.4050, L100.0100 ####[facility] [address] [place], [address] WBC (Bld) [#/Vol] 8.8 10*3/uL Normal 4.4-11.0 [facility] Comment on above: Performed By: #### L 500.4050, L100.0100 ####[facility] [address] [place], [address] Carbon dioxide, total [Moles /volume] in Central venous bloodOrdered By: Evelia Kimble on 09-18-2025 CO2 [Moles/Vol] 20.1 mmol/L Low 21.0-32.0 [facility] Chest PA and Lateralon 07-28 Chest PA and Lateral Normal [facility] Chloride assayOrdered By: Wilfred sullivandequan Shyanne on 07-28-2025 Chloride [Moles/Vol] 94 mmol/L Low 98-108 [facility] Comprehensive Metabolic Prof ilon 07-28-2025 Albumin [Mass/Vol] 4.5 g/dL Normal 3.4-4.8 [facility] Comment on above: Performed By: #### L 500.4050, L100.0100 ####[facility] [address] [place], [address] Albumin/Globulin [Mass ratio] 1.4 {ratio} Normal 0.9-2.4 [facility] Comment on above: Performed By: #### L 500.4050, L100.0100 ####[facility] [address] [place], [address] ALK PHOS 19 U/L Low 35-104 [facility] Comment on above: Performed By: #### L 500.4050, L100.0100 ####[facility] [address] [place], [address] ALT [Catalytic activity/Vol] 14 U/L Normal <=34 [facility] Comment on above: Performed By: #### L 500.4050, L100.0100 ####[facility] [address] [place], [address] AST [Catalytic activity/Vol] 18 U/L Normal <=31 [facility] Comment on above: Performed By: #### L 500.4050, L100.0100 ####[facility] [address] [place], [address] Bilirubin [Mass/Vol] 0.36 mg/dL Normal 0.00-1.30 [facility] Comment on above: Performed By: #### L 500.4050, L100.0100 ####[facility] [address] [place], [address] BUN/CRE 10.0 RATIO Normal 10-20 [facility] Comment on above: Performed By: #### L 500.4050, L100.0100 ####[facility] [address] [place], [address] Calcium [Mass/Vol] 9.0 mg/dL Normal 7.6-11.0 [facility] Comment on above: Performed By: #### L 500.4050, L100.0100 ####[facility] [address] [place], [address] Chloride [Moles/Vol] 94 mmol/L Low 98-108 [facility] Comment on above: Performed By: #### L 500.4050, L100.0100 ####[facility] [address] [place], [address] CO2 [Moles/Vol] 20.1 mmol/L Low 21.0-32.0 [facility] Comment on above: Performed By: #### L 500.4050, L100.0100 ####[facility] [address] [place], [address] Creatinine [Mass/Vol] 0.80 mg/dL Normal 0.70-1.20 [facility] Comment on above: Performed By: #### L 500.4050, L100.0100 ####[facility] [address], [address] GAP 15 Normal 5-15 [facility] Comment on above: Performed By: #### L 500.4050, L100.0100 ####[facility] [address] [place], [address] GFR/1.73 sq M.predicted among non-blacks MDRD (S/P/Bld) [Vol rate/Area] 80 mL/min/{1.73_m2} Normal >60 [facility] Comment on above: Result Comment: mL/m in/1.73m2 CKD-EPI Creatinine Equation (2020) Performed By: #### L 500.4050, L100.0100 ####[facility] [address] [place], [address] Globulin (S) [Mass/Vol] 3.3 g/dL Normal 2.2-4.2 [facility] Comment on above: Performed By: #### L 500.4050, L100.0100 ####[facility] [address] [place], [address] Glucose [Mass/Vol] 73 mg/dL Normal 70-99 [facility] Comment on above: Performed By: #### L 500.4050, L100.0100 ####[facility] [address] [place], [address] Potassium [Moles/Vol] 4.4 mmol/L Normal 3.3-5.1 [facility] Comment on above: Performed By: #### L 500.4050, L100.0100 ####[facility] [address] [place], [address] Sodium [Moles/Vol] 129 mmol/L Low 133-145 [facility] Comment on above: Performed By: #### L 500.4050, L100.0100 ####[facility] [address] [place], [address] T PROT 7.7 g/dL Normal 5.9-8.4 [facility] Comment on above: Performed By: #### L 500.4050, L100.0100 ####[facility] [address] [place], [address] Urea nitrogen [Mass/Vol] 8 mg/dL Normal 4-19 [facility] Comment on above: Performed By: #### L 500.4050, L100.0100 ####[facility] [address] [place], [address] Eosinophil percentageOrdered By: Evelia Kimble on 07-28-2025 Eosinophils/100 WBC (Bld) 0.5 % 0-5 [facility] Erythrocyte distribution wid th ratioOrdered By: Evelia Kimble on 07-28-2025 Erythrocyte distribution width (RBC) [Ratio] 14.5 % 11.6-14.6 [facility] Erythrocyte distribution wid th standard deviationOrdered By: Evelia Kimble on 07-28-2025 Erythrocyte distribution width (RBC) [Ratio] 44.4 fl High 35.1-43.9 [facility] Glomerular filtration rate ( GFR) estimation/1.73 sq m using serum, plasma, or whole bOrdered By: Evelia Kimble on 07-28-2025 GFR/1.73 sq M.predicted among non-blacks MDRD (S/P/Bld) [Vol rate/Area] 80 mL/min/{1.73_m2} >60 [facility] Comment on above: mL/min/1.73m2 CKD-EP I Creatinine Equation (2020) Hematocrit Auto (Bld) [Volum e fraction]Ordered By: Evelia Kimble on 07-28-2025 Hematocrit (Bld) [Volume fraction] 36.0 % Low 37-47 [facility] Hemoglobin measurementOrdere d By: Evelia Kimble on 07-28-2025 Hemoglobin (Bld) [Mass/Vol] 12.1 g/dL 12.0-15.0 [facility] Immature granulocytes/100 WB C Auto (Bld)Ordered By: Evelia Kimble on 07-28-2025 Immature granulocytes/100 WBC (Bld) 0.200 % 0.0-0.9 [facility] Comment on above: IG% - Immature Granu locytes (promyelocytes, myelocytes and metamyelocytes) > 1% indicates that a LEFT SHIFT is Present. Internal Medicine Office Vis iton 07-28-2025 Internal Medicine Office Visit Normal [facility] Laboratory - Chemistry and C hemistry - challengeOrdered By: Evelia Kimble on 07-28-2025 AST [Catalytic activity/Vol] 18 U/L <32 [facility] MCV (mean corpuscular volume ) determinationOrdered By: Evelia Kimble on 07-28-2025 MCV (RBC) [Entitic vol] 84.5 fL 81-99 [facility] Mean corpuscular hemoglobin (MCH) determinationOrdered By: Evelia Kimble on 07-28-2025 MCH (RBC) [Entitic mass] 28.4 pg 27.0-32.0 [facility] Mean corpuscular hemoglobin concentration (MCHC) determinationOrdered By: Evelia Kimble on 07-28-2025 MCHC (RBC) [Mass/Vol] 33.6 g/dL 32-36 [facility] Mean platelet volume determi nationOrdered By: Evelia Kimble on 07-28-2025 Platelet mean volume (Bld) [Entitic vol] 9.6 fL 6.2-12.0 [facility] Monocyte percentageOrdered B y: Evelia Kimble on 07-28-2025 Monocytes/100 WBC (Bld) 6.1 % 0-10 [facility] Neutrophil percentageOrdered By: Evelia Kimble on 07-28-2025 Neutrophils/100 WBC (Bld) 51.8 % 47-70 [facility] Nucleated red blood cell per centageOrdered By: Evelia Kimble on 07-28-2025 Nucleated RBC/100 WBC (Bld) [Ratio] 0 % 0-5 [facility] Platelet countOrdered By: Wilfred Kimble on 07-28-2025 Platelets (Bld) [#/Vol] 318 10*3/uL 150-450 [facility] Potassium measurement (mass/ volume)Ordered By: Evelia Kimble on 07-28-2025 Potassium (Unsp spec) [Mass/Vol] 4.4 mmol/L 3.3-5.1 [facility] RBC Auto (Bld) [#/Vol]Ordere d By: Evelia Kimble on 07-28-2025 RBC (Bld) [#/Vol] 4.26 10*6/uL 4.2-5.4 [facility] Serum creatinine measurement (mass/volume)Ordered By: Evelia Kimble on 07-28-2025 Creatinine [Mass/Vol] 0.80 mg/dL 0.70-1.20 [facility] Serum globulin measurementOr dered By: Evelia Kimble on 07-28-2025 Globulin (S) [Mass/Vol] 3.3 g/dL 2.2-4.2 [facility] Serum glucose measurement (m ass/volume)Ordered By: Evelia Kimble on 07-28-2025 Glucose [Mass/Vol] 73 mg/dL 70-99 [facility] Serum or plasma alanine benoit otransferase (ALT) measurementOrdered By: Evelia Kimble on 07-28-2025 ALT [Catalytic activity/Vol] 14 U/L <35 [facility] Serum or plasma albumin bernard urement (mass/volume)Ordered By: Evelia Kimble on 07-28-2025 Albumin [Mass/Vol] 4.5 g/dL 3.4-4.8 [facility] Serum or plasma albumin/glob ulin mass ratioOrdered By: Evelia Kimble on 07-28-2025 Albumin/Globulin [Mass ratio] 1.4 {ratio} 0.9-2.4 [facility] Serum or plasma alkaline bridget sphatase measurementOrdered By: Evelia Kimble on 07-28-2025 ALP [Catalytic activity/Vol] 19 U/L Low 35-104 [facility] Serum or plasma calcium bernard urement (mass/volume)Ordered By: Evelia Kimble on 07-28-2025 Calcium [Mass/Vol] 9.0 mg/dL 7.6-11.0 [facility] Serum or plasma urea nitroge n measurement (mass/volume)Ordered By: Evelia Kimble on 07-28-2025 Urea nitrogen [Mass/Vol] 8 mg/dL 4-19 [facility] Sodium levelOrdered By: July Kimble on 07-28-2025 Sodium [Moles/Vol] 129 mmol/L Low 133-145 [facility] Total proteinOrdered By: Jane Kimble on 07-28-2025 Protein [Mass/Vol] 7.7 g/dL 5.9-8.4 [facility] White blood cell (WBC) count Ordered By: Evelia Kimble on 07-28-2025 WBC (Bld) [#/Vol] 8.8 10*3/uL 4.4-11.0 [facility] Gram Stainon 07-21-2025 GS Reason for Exam: 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 Gram Stain 3+ Gram positive rods No Gram negative diplococci No White Blood Cells Normal [facility] Comment on above: Performed By: #### M 100.3200, M100.2000 ####[facility] [address] [place], [place], [id number] Inital Evaluation (1) - PTon 07-21-2025 Inital Evaluation (1) - PT Normal [facility] Gram stainOrdered By: Ginny Acevedo on 07-20-2025 Microscopic observation Gram stain Nom (Unsp spec) [facility] [employer] Office Visit Reporton 07-20-2025 [employer] Office Visit Report Normal [facility] Calculated very low density lipoprotein (VLDL) cholesterol measurementOrdered By: Dennis Hamm on 07-14-2025 Calculated very low density lipoprotein (VLDL) cholesterol measurement 41 mg/dL High 5-40 [facility] LDL calc ser/plasOrdered By: Dennis Hamm on 07-14-2025 Cholesterol in LDL [Mass/Vol] 175 mg/dL [facility] Comment on above: Qekvsowefl=760-870 m g/dL & Higher Xkcs=997 mg/dL or greaterFriedwald Equation for LDL-C Lipid Profileon 07-14-2025 CHOL:HDL 4.68 Normal [facility] Comment on above: Performed By: #### L 506.1001, L503.0106, L502.0250, L501.9520, L500.4100 ####[facility] [address] [place], [place], [id number] Cholesterol [Mass/Vol] 275 mg/dL High <=200 [facility] Comment on above: Result Comment: Chol esterol level, Desirable <200 mg/dLBorderline high cholesterol 200-239 mg/dLHigh cholesterol >=240 mg/dLRecommendations of the NCEP Adult Treatment Panel for thefollowing risk-cutoff thresholds for the [place] Americanpulation. Performed By: #### L 506.1001, L503.0106, L502.0250, L501.9520, L500.4100 ####[facility] [address] [place], [address] Cholesterol in HDL [Mass/Vol] 59 mg/dL Normal [facility] Comment on above: Result Comment: Madeline onal Cholesterol Education Program (NCEP) guidelines:<40 mg/dL: Low HDL-cholesterol (major risk factor for CHD)>= 60 mg/dL: High HDL-cholesterol (negative risk factor forCHD)HDL-cholesterol is affected by a number of factors, e.g.smoking, exercise, hormones, sex and age. Performed By: #### L 506.1001, L503.0106, L502.0250, L501.9520, L500.4100 ####[facility] [address] [place], [address] Cholesterol in LDL [Mass/Vol] 175 mg/dL Normal [facility] Comment on above: Result Comment: Bord jysdwf=365-003 mg/dL Higher Sxnf=903 mg/dL or greaterFriedwald Equation for LDL-C Performed By: #### L 506.1001, L503.0106, L502.0250, L501.9520, L500.4100 ####[facility] [address] [place], [address] Cholesterol in VLDL [Mass/Vol] 41 mg/dL High 5-40 [facility] Comment on above: Performed By: #### L 506.1001, L503.0106, L502.0250, L501.9520, L500.4100 ####[facility] [address] [place], [address] Triglyceride [Mass/Vol] 206 mg/dL High [facility] Comment on above: Result Comment: The drugs N-Acetylcysteine and Metamizole may falselydepress this assay.Normal range: <150 mg/dLBorderline High: 150-199 mg/dLHigh: 200-499 mg/dLVery High: >500 mg/dL Performed By: #### L 506.1001, L503.0106, L502.0250, L501.9520, L500.4100 ####[facility] [address] [place], [address] Microalb:Creat Ratio,Random URon 07-14-2025 Creatinine [Mass/Vol] 60.60 mg/dL Normal 28.00- 217.0 0 [facility] Comment on above: Performed By: #### L 506.1001, L503.0106, L502.0250, L501.9520, L500.4100 ####[facility] [address] [place], [address] MALB:CREAT 163.2 mg/g CRE High <30 mg/g CRE [facility] Comment on above: Performed By: #### L 506.1001, L503.0106, L502.0250, L501.9520, L500.4100 ####[facility] [address] [place], [address] MICROALBUMIN,UR 98.9 mg/L Normal <20 mg/L [facility] Comment on above: Performed By: #### L 506.1001, L503.0106, L502.0250, L501.9520, L500.4100 ####[facility] [address] [place], [address] Random urine creatinine bernard urement (mass/volume)Ordered By: Dennis Hamm on 07-14-2025 Creatinine Unsp time (U) [Mass/Vol] 60.60 mg/dL 28.00-217.0 0 [facility] Screening total cholesterol/ high density lipoprotein (HDL) cholesterol ratioOrdered By: Dennis Hamm on 07-14-2025 Cholesterol.total/Choles terol in HDL [Mass ratio] 4.68 {ratio} [facility] Serum or plasma cholesterol in HDL measurement (mass/volume)Ordered By: Dennis Hamm on 07-14-2025 Cholesterol in HDL [Mass/Vol] 59 mg/dL >40 [facility] Comment on above: National Cholesterol Education Program (NCEP) guidelines:<40 mg/dL: Low HDL-cholesterol (major risk factor for CHD)>= 60 mg/dL: High HDL-cholesterol (negative risk factor for CHD)HDL-cholesterol is affected by a number of factors, e.g. smoking, exercise, hormones, sex and age. Serum or plasma cholesterol measurement (mass/volume)Ordered By: Dennis Hamm on 07-14-2025 Cholesterol [Mass/Vol] 275 mg/dL High <201 [facility] Comment on above: Cholesterol level, D esirable <200 mg/dLBorderline high cholesterol 200-239 mg/dLHigh cholesterol >=240 mg/dLRecommendations of the NCEP Adult Treatment Panel for the following risk-cutoff thresholds for the [place] Somali population. TSH DL <= 0.005 mIU/L QnOrde red By: Dennis Hamm on 07-14-2025 TSH Qn 1.340 uIU/mL 0.300-4.200 [facility] Thyroid Stim Hormone (TSH)on 07-14-2025 TSH 1.340 uIU/mL Normal 0.300-4.200 [facility] Comment on above: Performed By: #### L 506.1001, L503.0106, L502.0250, L501.9520, L500.4100 ####[facility] [address] [place], [place], [id number] Triglycerides measurementOrd ered By: Dennis Hamm on 07-14-2025 Triglyceride [Mass/Vol] 206 mg/dL High <199 [facility] Comment on above: The drugs N-Acetylcy steine and Metamizole may falsely depress this assay. Normal range: <150 mg/dLBorderline High: 150-199 mg/dLHigh: 200-499 mg/dLVery High: >500 mg/dL Urine albumin measurement [facility] detection limit of 20 mg/L or less (mass/volume)Ordered By: Dennis Hamm on 07-14-2025 Albumin DL <= 20 mg/L (U) [Mass/Vol] 98.9 mg/L <20 mg/L [facility] Vitamin B12on 07-14-2025 Cobalamin (Vitamin B12) [Mass/Vol] 260 pg/mL Normal 180-914 [facility] Comment on above: Performed By: #### L 506.1001, L503.0106, L502.0250, L501.9520, L500.4100 ####[facility] [address] [place], [address] Vitamin B12 ser/plasOrdered By: Dennis Hamm on 07-14-2025 Cobalamin (Vitamin B12) [Mass/Vol] 260 pg/mL 180-914 [facility] Vitamin D,25 Hydroxyon 07-14 Vitamin D 25-OH 38.7 ng/mL Normal 30-100 [facility] Comment on above: Result Comment: Jojo min D StatusDeficiency: <20 ng/mL (50nmol/L)Insufficiency: 20-30 ng/mL (50-75 nmol/L)Sufficiency: 30-100 ng/mL (75-250 nmol/L)Toxicity: >100 ng/mL (>250 nmol/L) Performed By: #### L 506.1001, L503.0106, L502.0250, L501.9520, L500.4100 ####[facility] [address] [place], [address] Breast imaging reportOrdered By: Pavel Carrero on 07-13-2025 Study report [facility] Imaging Services [address] [place] [address] SCRN MAMM (CAD)W/MIGUEL BILAT MR#: [id number] Acct: [id number] Name: ЮЛИЯ HAYDEN Rep #: [id number] : 1955 F 69 From: Papa Carrero MD PCP: Dr. Dennis Hamm MD Status: REG CLI Study:SCRN MAMM (CAD)W/MIGUEL BILAT Date of Exa m: 07/08/25 Exam# [id number] Ordering Dr: Dennis Hamm MD EXAM: SCRN MAMM (CAD)W/MIGUEL BILAT DATE: 07/08/2025 CLINICAL HISTORY: F, Age 69 y/o , SCREENING TECHNIQUE: Procedure Code: BISMWCADBTOM Modality: MG Procedure: SCRN MAMM (CAD)W/MIGUEL BILAT COMPARISON: Prior exam(s) dated outside facility dated July 02, 2024.. FINDINGS: TISSUE DENSITY: The breasts are almost entirely fatty. Bilateral Breast Mammographic Findings: No significant masses, calcifications or other abnormalities are identified. Stable tiny calcified nodule in the upper lateral aspect of the left breast. No suspicious masses, areas of developing architectural distortion, or suspicious calcifications. There has been no significant interval change. BI/SCRN MAMM (CAD)W/MIGUEL BILAT IMPRESSION: Stable screening bilateral mammogram. OVERALL FINAL ASSESSMENT BI-RADS 2: BENIGN RECOMMENDATION: Routine annual follow-up in 1 Year A letter with findings and recommendations will be mailed to the patient. Reading Location: [place] [address] CC: Dr. Dennis Hamm MD ~ Bookkeeper Assistant: Signed [facility] SCRN MAMM (CAD)W/MIGUEL BILATo n 07-08-2025 SCRN MAMM (CAD)W/MIGUEL BILAT Normal [facility] Orthopedic Visit Reporton Orthopedic Visit Report Normal [facility] Shoulder min 2 Viewson 07-05 Shoulder min 2 Views Normal [facility] Laboratory - Hematology and Cell countsOrdered By: Dennis Hamm on 06-27-2025 HbA1c (Bld) [Mass fraction] 6.2 % 4.2-6.3 [facility] Genital Culture Comprehensiv endy 06-25-2025 VAC Reason for Exam: vag inal burning #1 Organism is too fastidious for routine susceptibility studies. No yeast, Neisseria or beta-hemolytic Streptococcus isolated. G. vaginalis (Presumptive) Amount Growth 3+ Normal [facility] Comment on above: Performed By: #### M 100.1999, M100.3200 ####[facility] [address] [place], [address] Genital cultureOrdered By: Franklin Acevedo on 06-21-2025 Source specific culture G. vaginalis (Presumptive) Abnormal [facility] Gram Stainon 06-21-2025 GS Reason for Exam: vag inal burning Gram Stain 4+ Gram variable arabella No Gram negative diplococci No White Blood Cells Score = 8 Interpretation: 0-3 Normal, 4-6 Intermediate, 7-10 Positive BV Normal [facility] Comment on above: Performed By: #### M 100.1999, M100.3200 ####[facility] [address] [facility] [place], [address] Gram stainOrdered By: Ginny Acevedo on 06-21-2025 Microscopic observation Gram stain Nom (Unsp spec) [facility] Internal Medicine Office Vis iton 06-21-2025 Internal Medicine Office Visit Normal [facility] [employer] Office Visit Reporton 06-21-2025 Cdl [employer] Office Visit Report Normal [facility] Cardiovascular stress test r eportOrdered By: Manolo Kothari on 06-10-2025 Study report [facility] [address] [place] [address] MR#: [id number] Acct: [id number] Name: ЮЛИЯ HAYDEN Rep #: [id number] : 1955 69 From: Manolo Kohtari MD Primary Care: Dr. Dennis Hamm MD Stat us: REG CLI Referring Dr: Dao Luciano MD Sex: F C Stress Test Report Pharmacologic myocardial perfusion stress test. 69-year-old lady with a history of chest pain Resting EKG demonstrates sinus rhythm with a rate of 61 bpm. Resting blood pressure is 140/70 mmHg. 0.4 mg of regadenoson was infused per usual protocol followed by rapid intravenous saline flush injection. Continuous EKG monitoringwas performed. The maximum heart rate was 110 bpm which was 71% of max impactedheart rate the maximum workload was 1 metabolic equivalent. At rest there were no ST or T wave changes noted to suggest ischemia and at peak infusion nonspecific ST changes were noted which did not meet the criteria for ischemia. No clinical angina is noted. The final blood pressure was 142/70 mmHg. Myocardial perfusion protocol. 11.7 mCi of technetium 99m sestamibi was injected at rest. 0.4 mg of regadenoson was infused per usual protocol. At peak infusion 32.9 mCi of technetium 99m sestamibi was injected stress images were obtained stress and rest images were reconstructed and compared in the short axis vertical long and horizontal long axis. Gated images were also obtained. Perfusion SPECT analysis: Review of the stress images demonstrate normal uptake of tracer noted in all areas of the myocardium. The resting images similar demonstrated normal uptake of tracer noted in all areas of the myocardium. No areas of reversibility are noted to suggest ischemia and no previous infarct is noted. Gated SPECT analysis: The gated ejection fraction is 87%. Conclusion: Normal pharmacologic myocardial perfusion stress test. Preserved ejection fraction. 06/10/251752 Date _ Manolo Kothari MD CC: Dr. Dennis Hamm MD; Dr. Dao Luciano MD ~ Date Dictated: 06/10/251751 Date Transcribed: 06/10/251751 Bookkeeper Assistant: [place] Signed [facility] Work Phone: Echo Completeon 06-10-2025 Echo Complete Normal [facility] Echocardiogram study reportO rdered By: Manolo Kothari on 06-10-2025 Study [address] [facility] Cardiovascular Services [address] [place] [address] Echo Complete 06/10/25 0851 MR#: [id number] Acct: [id number] Name: ЮЛИЯ HAYDEN Rep #:[id number] : 1955 69 From: Manolo Garcia Attending Dr: Dr. Dao Luciano MD Status: REG CLI Ordering Dr: Dao Luciano MD Date: 06/10/25 Location: [facility] Sex: F C Admitted: Reason For Study Reason For Study: Chest pain Procedure This was a 2D Doppler, Color Flow transthoracic echocardiogram. Exam performed in department. Left Ventricle Normal LV size. Mild concentric left ventricular hypertrophy. The left ventricular ejection fraction is 60 %. Stage 1 diastolic dysfunction. No regional wall motion abnormalities noted. Right Ventricle Normal RV size. Normal systolic function. Atria Normal left atrium. Normal right atrium. Mitral Valve Normal mitral valve. Tricuspid Valve Normal tricuspid valve. Aortic Valve Trisinus/trileaflet aortic valve. Pulmonic Valve Normal pulmonic valve. Great Vessels Normal aortic root. The pulmonary artery is normal size. Inferior vena cava collapse with respiration. Pericardium/Pleural No pericardial effusion. MMode/2D Measurements & Calculations LVIDd: 4.3 cm IVSd: 1.2 cm Ao root diam: 2.5 cm LVIDs: 2.5 cm LVPWd: 1.2 cm RVDd: 3.3 cm FS: 41.0 % __ LAV(MOD-bp): 31.0 ml LVAd ap4: 22.6 cm2 LVAd ap2: 21.3 cm2 LAV(MOD-bp) Indexed: 19.8 ml/m2 LVLd ap4: 7.1 cm LVLd ap2: 7.5 cm LAV(MOD-sp2): 38.0 ml EDV(MOD-sp4): 57.2 ml EDV(MOD-sp2): 51.3 ml LAV(MOD-sp4): 22.2 ml EDV(sp4-el): 60.6 ml EDV(sp2-el): 50.9 ml LVAs ap4: 12.9 cm2 LVAs ap2: 9.7 cm2 LVLs ap4: 6.3 cm LVLs ap2: 6.1 cm ESV(MOD-sp4): 21.6 ml ESV(MOD-sp2): 13.2 ml ESV(sp4-el): 22.5 ml ESV(sp2-el): 13.1 ml EF(MOD-sp4): 62.2 % EF(MOD-sp2): 74.3 % EF(sp4-el): 62.9 % _ SV(MOD-sp4): 35.6 ml SV(MOD-sp2): 38.2 ml SV(sp4-el): 38.1 ml SI(MOD-sp4): 22.8 ml/m2 SI(MOD-sp2): 24.4 ml/m2 LA A4 area: 10.6 cm2 LA dimension(2D): 3.4 cm RA A4 area: 12.0 cm2 TAPSE: 1.7 cm Doppler Measurements & Calculations MV E max yolande: 68.5 cm/sec Lat Peak E' Yolande: 10.1 cm/sec Med Peak E' Yolande: 9.5 cm/sec MV A max yolande: 84.0 cm/sec E/E' lat: 6.8 E/E' med: 7.2 MV E/A: 0.82 Ao V2 max: 144.6 cm/sec LV V1 max: 120.0 cm/sec PA V2 max: 87.4 cm/sec Ao max P.4 mmHg LV V1 max P.8 mmHg ECHO/Echo Complete Interpretation Summary Normal LV size. Mild concentric left ventricular hypertrophy. The left ventricular ejection fraction is 60 %. Stage 1 diastolic dysfunction. Structurally normal valves. Ordering Physician: Dao Luciano Referring Physician: Dennis Hamm Performed By: Jessica Samuels RDCS and Student 06/10/251711 Date _ Manolo Kothari MD CC: Dr. Dennis Hamm MD; Dr. Dao Luciano MD ~ Date Dictated: 06/10/25850 Date Transcribed: 06/10/251711 Bookkeeper Assistant: Signed [facility] Work Phone: Laboratory - Chemistry and C hemistry - challengeOrdered By: Janie Elias on 06-10-2025 Bilirubin Ql (U) Negative [facility] Glucose Ql (U) Negative [facility] Ketones Ql (U) Negative [facility] pH (U) 5 [pH] [facility] Specific gravity (U) [Rel density] 1.005 [facility] Urobilinogen (U) [Mass/Vol] Negative [facility] Laboratory - Hematology and Cell countsOrdered By: Janie Elias on 06-10-2025 Hemoglobin Ql (U) Negative [facility] Laboratory - UrinalysisOrder ed By: Janie Elias on 06-10-2025 Nitrite Ql (U) Negative [facility] Protein Ql (U) Negative [facility] MR/BMS.BUSon 06-10-2025 MR/BMS.BUS Normal [facility] No Panel InformationOrdered By: Janie Elias on 06-10-2025 Urine Leukocytes Negatve [facility] Urine Non-Hemolyzed Blood Negative [facility] Stress Reporton 06-10-2025 Stress Report Normal [facility] Office Visit Reporton 2024 Office Visit Report Normal [facility] Cardiology Visit Reporton Cardiology Visit Report Normal [facility] Gastroenterology Visit Repor ton 04-07-2025 Gastroenterology Visit Report Normal [facility] Pulmonary Visit Reporton Pulmonary Visit Report Normal [facility] 6 Minute Walk Teston 025 6 Minute Walk Test Normal [facility] Bone density reportOrdered B y: Pavel Carrero on 04-01-2025 Study report Skeletal system DXA [facility] Imaging Services [address], [place] [address] Dexa Bone Density Study MR#: [id number] Acct: [id number] Name: ЮЛИЯ HAYDEN Rep #: [id number] : 1955 F 69 From: Papa Carrero MD PCP: Dr. Dennis Hamm MD Status: REG CLI Study:Dexa Bone Density Study Date of Exam: 03/31/25 Exam# [id number] Ordering Dr: Dennis Hamm MD PROCEDURE: DEXA BONE DENSITY STUDY 03/31/2025 [...] Recommend follow-up as clinically warranted. Reading Location: [place] [address] CC: Dr. Dennis Hamm MD ~ Bookkeeper Assistant: Signed [facility] Dexa Bone Density Studyon [facility] D[facility] Kidney and Bladder Normal [facility] Thyroidon 03-22-2025 Thyroid Normal [facility] Chest without Contraston Chest without Contrast Normal [facility] Laboratory - Hematology and Cell countsOrdered By: Dennis Hamm on 03-16-2025 HbA1c (Bld) [Mass fraction] 6.7 % High 4.2-6.3 [facility] Internal Medicine Office Vis iton 03-15-2025 Internal Medicine Office Visit Normal [facility] Bedside Glucoseon 03-10-2025 FINGERSTICK GLU 127 mg/dL High 74-106 [facility] Comment on above: Result Comment: DELFINO GEMENT OF PATIENT CARE PER NURSING PROTOCOL Performed By: #### L 501.080 ####[facility] [address] [place], [place], [id number] Colonoscopy Reporton 025 Colonoscopy Report Normal [facility] EGD Reporton 03-09-2025 EGD Report Normal [facility] deOrdered By: Pernell Friend on 03-09-2025 Glucose [Mass/Vol] 127 mg/dL High 74-106 [facility] Comment on above: MANAGEMENT OF PATIEN T CARE PER NURSING PROTOCOL MR/POSTOP.ANEon 03-09-2025 MR/POSTOP.ANE Normal [facility] MR/[id number] 03-09-2025 MR/POSTOPAN2 Normal [facility] Surgery Specimen Level Santino 03-09-2025 Surgery Specimen Level IV Normal [facility] Comment on above: Performed By: #### P SUIV ####[facility] [id number] [place], [place], [address] CNOVSPon 02-18-2025 CNOVSP Visit (SP) Office (HEMAWS) -------- ЮЛИЯ HAYDEN ([id number]) 1955 F Date Time Provider Department 02/18/25 2:30 PM CRISTHIAN CHRISTENSEN During your visit today, we recorded the following information about you: Temperature Pulse Blood pressure Weight 97.1 degrees 75/minute 146/82 61.9 kg Cristhian Christensen DO 02/18/2025 2:49 PM Signed Hematologic problem(s): 1) IgG lambda MGUS. HPI: The patient is a 69-year-old female with a past medical history as outlined below. Establish with new PCP prior to referral here. Had lab work done through [facility] that showed an increase in serum globulin [...] DX W/COLLJ SPEC WHEN PFRMD Done in [place] unable to obtain COLONOSCOPY FLX DX W/COLLJ [...] cap Ta (more content not included)... Normal [facility] B2 Microglob SerPl-mCncon Pfnm-6-Epyaypovogaus [Mass/Vol] 2.5 ug/mL Normal <3.1 [facility] Comment on above: Order Comment: Speci men Type: BLOOD SPECIMENOrdering Facility: [facility] Address: [address] [place] [address] Result Comment: Beta -2 Microglobulin test is performed using the [employer] immunoturbidimetric method. Results obtained with different methods or kits cannot be used interchangeably. Performed By: #### 2 885-2, 1951-11 ####[facility] LABCLIA [id number] [place] [address] [place] CBC W Auto Differential pane l (Bld)on 02-10-2025 Basophils (Bld) [#/Vol] 0.04 10*3/uL Normal <0.11 [facility] Comment on above: Order Comment: Speci men Type: BLOOD SPECIMENOrdering Facility: [facility] Address: [address] [place] [address] Performed By: #### 5 7021-8 ####[facility] MIRAMARGABBYLIA [id number] [place] [address] [place] Basophils/100 WBC (Bld) 0.5 % Normal [facility] Comment on above: Order Comment: Speci men Type: BLOOD SPECIMENOrdering Facility: [facility] Address: [address] [place] [address] Performed By: #### 5 7021-8 ####[facility] MILLWNCLIA [id number] [place] [address] [place] Differential cell count method Nom (Bld) Auto Normal [facility] Comment on above: Order Comment: Speci men Type: BLOOD SPECIMENOrdering Facility: [facility] Address: [address] [place] [address] Performed By: #### 5 7021-8 ####[facility] MIRAMARGABBYLIA [id number] [place] [address] [place] Eosinophils (Bld) [#/Vol] 0.13 10*3/uL Normal <0.46 [facility] Comment on above: Order Comment: Speci men Type: BLOOD SPECIMENOrdering Facility: [facility] Address: [address] [place] [address] Performed By: #### 5 7021-8 ####[facility] [id number] [place] [address] [place] Eosinophils/100 WBC (Bld) 1.7 % Normal [facility] Comment on above: Order Comment: Speci men Type: BLOOD SPECIMENOrdering Facility: [facility] Address: [address] [place] [address] Performed By: #### 5 7021-8 ####[facility]AMARNCSANPET[facility] [id number] [place] [address] [place] Erythrocyte distribution width (RBC) [Ratio] 13.5 % Normal 11.5-15.0 [facility] Comment on above: Order Comment: Speci men Type: BLOOD SPECIMENOrdering Facility: [facility] Address: [address] [place] [address] Performed By: #### 5 7021-8 ####[facility] MIRAMARNCLIA [id number] [place] [address] [place] Hematocrit (Bld) [Volume fraction] 38.6 % Normal 36.0-46.0 [facility] Comment on above: Order Comment: Speci men Type: BLOOD SPECIMENOrdering Facility: [facility] Address: [address] [place] [address] Performed By: #### 5 7021-8 ####[facility] MIRAMARNCLI [id number] [place] [address] [place] Hemoglobin (Bld) [Mass/Vol] 12.9 g/dL Normal 11.5-15.5 [facility] Comment on above: Order Comment: Speci men Type: BLOOD SPECIMENOrdering Facility: [facility] Address: [address] [place] [address] Performed By: #### 5 7021-8 ####[facility] ISSACA [id number] [place] [address] [place] Immature granulocytes (Bld) [#/Vol] 10*3/uL Normal <0.10 [facility] Comment on above: Order Comment: Speci men Type: BLOOD SPECIMENOrdering Facility: [facility] Address: [address] [place] [address] Performed By: #### 5 7021-8 ####[facility] MIRAMARRAJINDERA [id number] [place] [address] [place] Immature granulocytes/100 WBC (Bld) 0.1 % Normal [facility] Comment on above: Order Comment: Speci men Type: BLOOD SPECIMENOrdering Facility: [facility] Address: [address] [place] [address] Performed By: #### 5 7021-8 ####[facility] MIRAMARA [id number] [place] [address] [place] Lymphocytes (Bld) [#/Vol] 3.30 10*3/uL Normal 1.00-4.00 [facility] Comment on above: Order Comment: Speci men Type: BLOOD SPECIMENOrdering Facility: [facility] Address: [address] [place] [address] Performed By: #### 5 7021-8 ####[facility] MIRAMARNCLIA [id number] [place] [address] [place] Lymphocytes/100 WBC (Bld) 42.8 % Normal [facility] Comment on above: Order Comment: Speci men Type: BLOOD SPECIMENOrdering Facility: [facility] Address: [address] [place] [address] Performed By: #### 5 7021-8 ####[facility]ENTERLIA [id number] [place] [address] [place] MCH (RBC) [Entitic mass] 29.2 pg Normal 26.0-34.0 [facility] Comment on above: Order Comment: Speci men Type: BLOOD SPECIMENOrdering Facility: [facility] Address: [address] [place] [address] Performed By: #### 5 7021-8 ####[facility] [id number] [place] [address] [place] MCHC (RBC) [Mass/Vol] 33.4 g/dL Normal 30.5-36.0 [facility] Comment on above: Order Comment: Speci men Type: BLOOD SPECIMENOrdering Facility: [facility] Address: [address] [place] [address] Performed By: #### 5 7021-8 ####[facility] [id number] [place] [address] [place] MCV (RBC) [Entitic vol] 87.3 fL Normal 80.0-100.0 [facility] Comment on above: Order Comment: Speci men Type: BLOOD SPECIMENOrdering Facility: [facility] Address: [address] [place] [address] Performed By: #### 5 7021-8 ####[facility] [id number] [place] [address] [place] Monocytes (Bld) [#/Vol] 0.51 10*3/uL Normal <0.87 [facility] Comment on above: Order Comment: Speci men Type: BLOOD SPECIMENOrdering Facility: [facility] Address: [address] [place] [address] Performed By: #### 5 7021-8 ####[facility] [id number] [place] [address] [place] Monocytes/100 WBC (Bld) 6.6 % Normal [facility] Comment on above: Order Comment: Speci men Type: BLOOD SPECIMENOrdering Facility: [facility] Address: [address] [place] [address] Performed By: #### 5 7021-8 ####[facility]ENTERLIA [id number] [place] [address] [place] Neutrophils (Bld) [#/Vol] 3.72 10*3/uL Normal 1.45-7.50 [facility] Comment on above: Order Comment: Speci men Type: BLOOD SPECIMENOrdering Facility: [facility] Address: [address] [place] [address] Performed By: #### 5 7021-8 ####[facility] MIRAMARA [id number] [place] [address] [place] Neutrophils/100 WBC (Bld) 48.3 % Normal [facility] Comment on above: Order Comment: Speci men Type: BLOOD SPECIMENOrdering Facility: [facility] Address: [address] [place] [address] Performed By: #### 5 7021-8 ####[facility] MIRAMARA [id number] [place] [address] [place] Nucleated RBC (Bld) [#/Vol] 10*3/uL Normal <0.01 [facility] Comment on above: Order Comment: Speci men Type: BLOOD SPECIMENOrdering Facility: [facility] Address: [address] [place] [address] Performed By: #### 5 7021-8 ####[facility] MIRAMARA [id number] [place] [address] [place] Nucleated RBC/100 WBC (Bld) [Ratio] 0.0 /100 WBC Normal [facility] Comment on above: Order Comment: Speci men Type: BLOOD SPECIMENOrdering Facility: [facility] Address: [address] [place] [address] Performed By: #### 5 7021-8 ####[facility] ADRIEL [id number] [place] [address] [place] Platelet mean volume (Bld) [Entitic vol] 9.9 fL Normal 9.0-12.7 [facility] Comment on above: Order Comment: Speci men Type: BLOOD SPECIMENOrdering Facility: [facility] Address: [address] [place] [address] Performed By: #### 5 7021-8 ####[facility] MIRAMARGABBYNathan [id number] [place] [address] [place] Platelets (Bld) [#/Vol] 263 10*3/uL Normal 150-400 [facility] Comment on above: Order Comment: Speci men Type: BLOOD SPECIMENOrdering Facility: [facility] Address: [address] [place] [address] Performed By: #### 5 7021-8 ####[facility] MARGUERITEMILTONNCCARLOSA [id number] [place] [address] [place] RBC (Bld) [#/Vol] 4.42 10*6/uL Normal 3.90-5.20 [facility] Comment on above: Order Comment: Speci men Type: BLOOD SPECIMENOrdering Facility: [facility] Address: [address] [place] [address] Performed By: #### 5 7021-8 ####[facility] MIRAMARNCLIA [id number] [place] [address] [place] WBC (Bld) [#/Vol] 7.71 10*3/uL Normal 3.70-11.00 [facility] Comment on above: Order Comment: Speci men Type: BLOOD SPECIMENOrdering Facility: [facility] Address: [address] [place] [address] Performed By: #### 5 7021-8 ####[facility] ERONLIA [id number] [place] [address] [place] Comprehensive metabolic 2000 panelon 02-10-2025 Albumin [Mass/Vol] 5.0 g/dL High 3.9-4.9 [facility] Comment on above: Order Comment: Speci men Type: BLOOD SPECIMENOrdering Facility: [facility] Address: [address] [place] [address] Performed By: #### 2 4323-8, 2532-0 ####[facility] MARGUERITEMILTONJIMENA [id number] [place] [address] [place] ALP [Catalytic activity/Vol] 31 U/L Low 34-123 [facility] Comment on above: Order Comment: Speci men Type: BLOOD SPECIMENOrdering Facility: [facility] Address: [address] [place] [address] Performed By: #### 2 4323-8, 2532-0 ####[facility] MIRAMARJIMENA [id number] [address] [place] ALT [Catalytic activity/Vol] 16 U/L Normal 7-38 [facility] Comment on above: Order Comment: Speci men Type: BLOOD SPECIMENOrdering Facility: [facility] Address: [address] [place] [address] Performed By: #### 2 4323-8, 2532-0 ####[facility] MIRAMARGABBYLIA [id number] [place] [address] [place] Anion gap [Moles/Vol] 15 mmol/L Normal 8-15 [facility] Comment on above: Order Comment: Speci men Type: BLOOD SPECIMENOrdering Facility: [facility] Address: [address] [place] [address] Performed By: #### 2 4323-8, 2532-0 ####[facility] MILLTOWNCLIA [id number] [place] [address] [place] AST [Catalytic activity/Vol] 19 U/L Normal 13-35 [facility] Comment on above: Order Comment: Speci men Type: BLOOD SPECIMENOrdering Facility: [facility] Address: [address] [place] [address] Performed By: #### 2 432-8, 0 ####[facility] MILLTOWNCLIA [id number] [place] [address] [place] Bilirubin [Mass/Vol] 0.3 mg/dL Normal 0.2-1.3 [facility] Comment on above: Order Comment: Speci men Type: BLOOD SPECIMENOrdering Facility: [facility] Address: [address] [place] [address] Performed By: #### 2 432-8, 0 ####[facility]ENTERLIA [id number] [place] [address] [place] Calcium [Mass/Vol] 10.3 mg/dL High 8.5-10.2 [facility] Comment on above: Order Comment: Speci men Type: BLOOD SPECIMENOrdering Facility: [facility] Address: [address] [place] [address] Performed By: #### 2 432-8, 0 ####[facility]ENTERLIA [id number] [place] [address] [place] Chloride [Moles/Vol] 97 mmol/L Low 98-107 [facility] Comment on above: Order Comment: Speci men Type: BLOOD SPECIMENOrdering Facility: [facility] Address: [address] [place], [place] [address] Performed By: #### 2 4323-8, 2531-0 ####[facility] MIRAMARNCLIA [id number] [place] [address] [place] CO2 [Moles/Vol] 26 mmol/L Normal 22-30 [facility] Comment on above: Order Comment: Giovana alejandre Type: BLOOD SPECIMENOrdering Facility: [facility] Address: [address] [place] [address] Performed By: #### 2 4323-8, 2531-0 ####[facility] CENTERFINESSE [id number] [place] [address] [place] Creatinine [Mass/Vol] 0.90 mg/dL Normal 0.58-0.96 [facility] Comment on above: Order Comment: Giovana men Type: BLOOD SPECIMENOrdering Facility: [facility] Address: [address] [place] [address] Performed By: #### 2 4323-8, 2531-0 ####[facility] MIRAMARNCNathan [id number] [place] [address] [place] Creatinine and Glomerular filtration rate.predicted panel (S/P/Bld) 70 mL/min/1.73m??? Normal >=60 [facility] Comment on above: Order Comment: Giovana alejander Type: BLOOD SPECIMENOrdering Facility: [facility] Address: [address] [place] [address] Result Comment: Amna mated Glomerular Filtration Rate [...] actual GFR. Performed By: #### 2 4323-8, 2531-0 ####[facility] CENTERLIA [id number] [place] [address] [place] Glucose [Mass/Vol] 143 mg/dL High 74-99 [facility] Comment on above: Order Comment: Speci men Type: BLOOD SPECIMENOrdering Facility: [facility] Address: [address] [place], [place] [address] Result Comment: The [place] [employer] (ADA) provides guidance for cutoff [...] Standards of Medical Care in Diabetes 2016, [place] [employer]. Diabetes Care. 2016.39(Suppl 1). Performed By: #### 2 4323-8, 2531-0 ####[facility] [id number] [place] [address] [place] Potassium [Moles/Vol] 3.4 mmol/L Low 3.7-5.1 [facility] Comment on above: Order Comment: Giovana alejandre Type: BLOOD SPECIMENOrdering Facility: [facility] Address: [address] [place], [place] [address] Performed By: #### 2 4323-8, 0 ####[facility] [id number] [place] [address] [place] Protein [Mass/Vol] 8.5 g/dL High 6.3-8.0 [facility] Comment on above: Order Comment: Giovana alejandre Type: BLOOD SPECIMENOrdering Facility: [facility] Address: [address] [place], [place] [address] Performed By: #### 2 4323-8, 2531-0 ####[facility]ENTERLI [id number] [place] [address] [place] Sodium [Moles/Vol] 138 mmol/L Normal 136-144 [facility] Comment on above: Order Comment: Speci men Type: BLOOD SPECIMENOrdering Facility: [facility] Address: [address] [place] [address] Performed By: #### 2 4323-8, 0 ####[facility] MIRAMARNCLIA [id number] [place] [address] [place] Urea nitrogen [Mass/Vol] 16 mg/dL Normal 7-21 [facility] Comment on above: Order Comment: Speci men Type: BLOOD SPECIMENOrdering Facility: [facility] Address: [address] [place] [address] Performed By: #### 2 4323-8, 0 ####[facility] MIRAMARNCLIA [id number] [place] [address] [place] IMMUNOFIXATION SCREEN, SERUM on 02-10-2025 MPA RESULT No M protein is identified. Normal No M protein is identified. [facility] Comment on above: Order Comment: Speci men Type: BLOOD SPECIMENOrdering Facility: [facility] Address: [address] [place] [address] Performed By: #### I FES ####[facility] LABIA [id number] [address] [address] [place] STAFF REVIEW (MPA) Reviewed by Dr. Vale Hurst MD [facility] Comment on above: Order Comment: Speci men Type: BLOOD SPECIMENOrdering Facility: [facility] Address: [address] [place] [address] Performed By: #### I FES ####[facility] LABIA [id number] [place] [id number] [place] IMMUNOGLOBULINS,IGG,IGA,IGMo n 02-10-2025 IgA [Mass/Vol] 275 mg/dL Normal 70-400 [facility] Comment on above: Order Comment: Speci men Type: BLOOD SPECIMENOrdering Facility: [facility] Address: [address] [place] [address] Performed By: #### S ERIMM ####[facility] LABCLIA [id number] [place] [address] [place] IgG [Mass/Vol] 1571 mg/dL Normal 700-1600 [facility] Comment on above: Order Comment: Speci men Type: BLOOD SPECIMENOrdering Facility: [facility] Address: [address] [place] [address] Performed By: #### S ERIMM ####[facility] LABCLIA [id number] [place] [address] [place] IgM [Mass/Vol] 134 mg/dL Normal 40-230 [facility] Comment on above: Order Comment: Speci men Type: BLOOD SPECIMENOrdering Facility: [facility] Address: [address] [place] [address] Performed By: #### S ERIMM ####[facility] LABIA [id number] [place] [address] [place] KAPPA/DEJESUS,FREE,SERon 2024 Immunoglobulin light chains.kappa.free (S) [Mass/Vol] 38.8 mg/L High 3.3-19.4 [facility] Comment on above: Order Comment: Speci men Type: BLOOD SPECIMENOrdering Facility: [facility] Address: [address] [place] [address] Result Comment: Rare ly, increased serum free light chains levels may not be detected or accurately quantified due to prozone phenomenon or in high viscosity samples using this immunoturbidimetric assay. Correlation with other laboratory results and clinical findings is recommended. The [employer] Free Light Chain was performed using the [employer] immunoturbidimetric method. Result obtained with different assay methods or kits cannot be used interchangeably. Performed By: #### K LFRS ####[facility] LABIA [id number] [place] [address] [place] Immunoglobulin light chains.kappa/Immunoglobu belle light chains.lambda (S) [Mass ratio] 1.92 High 0.26-1.65 [facility] Comment on above: Order Comment: Speci men Type: BLOOD SPECIMENOrdering Facility: [facility] Address: [address] [place] [address] Performed By: #### K LFRS ####[facility] LABCLIA [id number] [place] [address] [place] Immunoglobulin light chains.lambda.free [Mass/Vol] 20.2 mg/L Normal 5.7-26.3 [facility] Comment on above: Order Comment: Speci men Type: BLOOD SPECIMENOrdering Facility: [facility] Address: [address] [place] [address] Result Comment: Rare ly, increased serum free [...] used interchangeably. Performed By: #### K LFRS ####[facility] LABCLIA [id number] [place] [address] [place] LDH SerPl-cCncon 02-10-2025 LDH [Catalytic activity/Vol] 166 U/L Normal 135-214 [facility] Comment on above: Order Comment: Speci men Type: BLOOD SPECIMENOrdering Facility: [facility] Address: [address] [place] [address] Performed By: #### 2 4323-8, 2532-0 ####[facility] [id number] [place] [address] [place] PROTEIN ELECTROPHORESIS SERU M (P)on 02-10-2025 Albumin [Mass/Vol] 4.82 g/dL Normal 3.43-5.41 [facility] Comment on above: Order Comment: Speci men Type: BLOOD SPECIMENOrdering Facility: [facility] Address: [address] [place] [address] Performed By: #### L [id number] ####[facility] LABCLIA [id number] [place] [address] [place] Alpha 1 globulin Elph [Mass/Vol] 0.27 g/dL Normal 0.18-0.43 [facility] Comment on above: Order Comment: Speci men Type: BLOOD SPECIMENOrdering Facility: [facility] Address: [address] [place] [address] Performed By: #### L [id number] ####[facility] LABCLIA [id number] [place] [address] [place] Alpha 2 globulin Elph [Mass/Vol] 0.78 g/dL Normal 0.42-0.98 [facility] Comment on above: Order Comment: Speci men Type: BLOOD SPECIMENOrdering Facility: [facility] Address: [address] [place] [address] Performed By: #### L [id number] ####[facility] LABCLIA [id number] [place] [address] [place] Beta globulin Elph [Mass/Vol] 0.90 g/dL Normal 0.61-1.17 [facility] Comment on above: Order Comment: Speci men Type: BLOOD SPECIMENOrdering Facility: [facility] Address: [address] [place] [address] Performed By: #### L [id number] ####[facility] LABCLIA [id number] [place] [address] [place] Gamma globulin Elph [Mass/Vol] 1.33 g/dL Normal 0.53-1.51 [facility] Comment on above: Order Comment: Speci men Type: BLOOD SPECIMENOrdering Facility: [facility] Address: [address] [place] [address] Performed By: #### L [id number] ####[facility] LABCLIA [id number] [place] [id number] [place] INTERPRETATION COMMENT FOR PROTEIN ELECTROPHORESIS The atypical region is relatively poorly defined and may represent an unusual presentation of polyclonal immunoglobulins, but cannot rule out the presence of a low level M protein. If clinically indicated, monoclonal protein analysis and serum free light chain analysis are suggested to evaluate further for monoclonal gammopathy. Normal [facility] Comment on above: Order Comment: Speci men Type: BLOOD SPECIMENOrdering Facility: [facility] Address: [address] [place] [address] Performed By: #### L [id number] ####[facility] LABIA [id number] [address] [place] M-PROTEIN LOCATION Normal [facility] Comment on above: Order Comment: Giovana alejandre Type: BLOOD SPECIMENOrdering Facility: [facility] Address: [address] [place] [address] Result Comment: Not Applicable. Performed By: #### L [id number] ####[facility] LABIA [id number] [place] [address] [place] Protein Fractions [Interp] An atypical region of restricted mobility is identified on protein electrophoresis. Abnormal No definitive M protein is identified on protein electrophor esis. [facility] Comment on above: Order Comment: Giovana [facility] Type: BLOOD SPECIMENOrdering Facility: [facility] Address: [address] [place] [address] Performed By: #### L [id number] ####[facility] LABIA [id number] [address] [place] Protein.monoclonal Elph [Mass/Vol] 0.00 g/dL Normal <=0.00 [facility] Comment on above: Order Comment: [facility] Type: BLOOD SPECIMENOrdering Facility: [facility] Address: [address] [place] [address] Performed By: #### L [id number] ####[facility] LABIA [id number] OF [facility] SPE STAFF REVIEW Reviewed by Dr. Vale Hurst MD [facility] Comment on above: Order Comment: Speci men Type: BLOOD SPECIMENOrdering Facility: [facility] Address: [address] [place] [address] Performed By: #### L [id number] ####[facility] LABCLIA [id number] [place] [id number] [place] Prot SerPl-mCncon 02-10-2025 Protein [Mass/Vol] 8.1 g/dL High 6.3-8.0 [facility] Comment on above: Order Comment: Speci men Type: BLOOD SPECIMENOrdering Facility: [facility] Address: [address] [place] [address] Performed By: #### 2 885-2, 1951-11 ####[facility] LABCLIA [id number] [address] [place] Pulmonary Visit Reporton Pulmonary Visit Report Normal [facility] L7000.0750on 01-10-2025 P ELASTASE,FECA > 800 Normal >200 [facility] Comment on above: Result Comment: Resu lt Units: ug Elast./g Severe Pancreatic Insufficiency: <100 Moderate Pancreatic Insufficiency: 100 - 200 Normal: >200Performed at: - [facility] [id number] Director: Jerrell Napoles MD, Phone: [phone] Performed By: #### M 100.0605, L7000.0300, L7000.0750 ####[facility] [address] [facility] [place], [place], [phone] Stool Lactoferrin/WBCon 12-12 WBCST Normal Reference Ran ge = Negative Fecal WBC Lactoferrin Negative: No Fecal WBC Lactoferrin present Normal [facility] Comment on above: Performed By: #### M 100.0605, L7000.0300, L7000.0750 ####[facility] [address] [place], [address] Elastase.pancreatic (Stl) [M ass/Mass]Ordered By: Pernell Philippe on 01-05-2025 Stool Pancreatic Elastase > 800 >200 [facility] Comment on above: Result Units: ug Melyssa st./g Severe Pancreatic Insufficiency: <100 Moderate Pancreatic Insufficiency: 100 - 200 Normal: >200Performed at: BN - [facility] [address] [id number] Director: Jerrell Napoles MD, Phone: [phone] Fecal Fat, Qualitativeon FATS, NEUTRAL Normal [facility] Comment on above: Result Comment: NOT ENOUGH STOOL TO RUN PER [facility] Performed By: #### M 100.0605, L7000.0300, L7000.0750 ####[facility] [address] [place], [address] FATS, TOTAL Normal [facility] Comment on above: Result Comment: NOT ENOUGH STOOL TO RUN PER [facility] Performed By: #### M 100.0605, L7000.0300, L7000.0750 ####[facility] [address] [place], [address] Lactoferrin IA Ql (Stl)Order ed By: Pernell Philippe on 01-05-2025 Stool Lactoferrin [facility] Stool lactoferrin detection by immunoassayOrdered By: Pernell Philippe on 01-05-2025 Lactoferrin IA Ql (Stl) [facility] Stool pancreatic elastase me asurement (mass/mass)Ordered By: Pernell Philippe on 01-05-2025 Elastase.pancreatic (Stl) [Mass/Mass] > 800 >200 [facility] Comment on above: Result Units: ug Melyssa st./g Severe Pancreatic Insufficiency: <100 Moderate Pancreatic Insufficiency: 100 - 200 Normal: >200Performed at: BN - [facility] [address] [id number] Director: Jerrell Napoles MD, Phone: [phone] ARYA Comprehensive Panelon ANTI-DNA (DS)AB 1 IU/mL Normal 0-9 [facility] Comment on above: Result Comment: Nega tive <5 Equivocal 5 - 9 Positive >9 Performed By: #### L 501.6710, L3410.1000, L3410.0900, L503.0105, L3100.6900, L5500.0550, L3100.3425, L504.2610, L3300.1800, L3410.2400, L3100.5440, L500.4050, L101.9900, L3300.1200, L5500.0300, L3200.1100 ####[facility] [address] [place], [place], [phone] ANTISCLERODERM <0.2 Normal 0.0-0.9 [facility] Comment on above: Performed By: #### L 501.6710, L3410.1000, L3410.0900, L503.0105, L3100.6900, L5500.0550, L3100.3425, L504.2610, L3300.1800, L3410.2400, L3100.5440, L500.4050, L101.9900, L3300.1200, L5500.0300, L3200.1100 ####[facility] [address] [place], [place], [phone] ANCAon 01-03-2025 Atypical pANCA <1:20 Normal Neg:<1:20 [facility] Comment on above: Result Comment: The atypical pANCA pattern has been observed in asignificant percentage of patients with ulcerative colitis,primary sclerosing cholangitis and autoimmune hepatitis. Performed By: #### L 501.6710, L3410.1000, L3410.0900, L503.0105, L3100.6900, L5500.0550, L3100.3425, L504.2610, L3300.1800, L3410.2400, L3100.5440, L500.4050, L101.9900, L3300.1200, L5500.0300, L3200.1100 ####[facility] [address] [place], [address] Cytoplasmic Ab <1:20 Normal Neg:<1:20 [facility] Comment on above: Performed By: #### L 501.6710, L3410.1000, L3410.0900, L503.0105, L3100.6900, L5500.0550, L3100.3425, L504.2610, L3300.1800, L3410.2400, L3100.5440, L500.4050, L101.9900, L3300.1200, L5500.0300, L3200.1100 ####[facility] [address] [place], [place], [phone](611) Perinuclear Ab. <1:20 Normal Neg:<1:20 [facility] Comment on above: Result Comment: The presence of positive fluorescence exhibiting P-ANCA orC-ANCA patterns alone is not specific for the diagnosis ofWegener's Granulomatosis (WG) or microscopic polyangiitis.Decisions about treatment should not be based solely onANCA IFA results. The International ANCA Group Consensusrecommends follow up testing of positive sera with both NC-3 and MPO-ANCA enzyme immunoassays. As many as 5% serumsamples are positive only by EIA. Ref. AM J Clin Tklqib1123;111:507-513. Performed By: #### L 501.6710, L3410.1000, L3410.0900, L503.0105, L3100.6900, L5500.0550, L3100.3425, L504.2610, L3300.1800, L3410.2400, L3100.5440, L500.4050, L101.9900, L3300.1200, L5500.0300, L3200.1100 ####[facility] [address] [place], [place], [phone] Allergen, Mini-Raston 2024 A. ALTERNATA <0.10 Normal Class 0 [facility] Comment on above: Performed By: #### L 501.6710, L3410.1000, L3410.0900, L503.0105, L3100.6900, L5500.0550, L3100.3425, L504.2610, L3300.1800, L3410.2400, L3100.5440, L500.4050, L101.9900, L3300.1200, L5500.0300, L3200.1100 ####[facility] [address] [place], [place], [phone] BERMUDA GRASS <0.10 Normal Class 0 [facility] Comment on above: Performed By: #### L 501.6710, L3410.1000, L3410.0900, L503.0105, L3100.6900, L5500.0550, L3100.3425, L504.2610, L3300.1800, L3410.2400, L3100.5440, L500.4050, L101.9900, L3300.1200, L5500.0300, L3200.1100 ####[facility] [address] [place], [place], [phone] [place], [place] <0.10 Normal Class 0 [facility] Comment on above: Performed By: #### L 501.6710, L3410.1000, L3410.0900, L503.0105, L3100.6900, L5500.0550, L3100.3425, L504.2610, L3300.1800, L3410.2400, L3100.5440, L500.4050, L101.9900, L3300.1200, L5500.0300, L3200.1100 ####[facility] [address] [place], [place], [phone] CAT HAIR/DANDER <0.10 Normal Class 0 [facility] Comment on above: Performed By: #### L 501.6710, L3410.1000, L3410.0900, L503.0105, L3100.6900, L5500.0550, L3100.3425, L504.2610, L3300.1800, L3410.2400, L3100.5440, L500.4050, L101.9900, L3300.1200, L5500.0300, L3200.1100 ####[facility] [address] [place], [address] COMMENT Comment Normal . [facility] Comment on above: Result Comment: Angelique george [...] L3410.2400, L3100.5440, L500.4050, L101.9900, L3300.1200, L5500.0300, L3200.1100 ####[facility] [address] [place], [address] D FARINAE MITE <0.10 Normal Class 0 [facility] Comment on above: Performed By: #### L 501.6710, L3410.1000, L3410.0900, L503.0105, L3100.6900, L5500.0550, L3100.3425, L504.2610, L3300.1800, L3410.2400, L3100.5440, L500.4050, L101.9900, L3300.1200, L5500.0300, L3200.1100 ####[facility] [address] [place], [address] D PTERONYSSINUS <0.10 Normal Class 0 [facility] Comment on above: Performed By: #### L 501.6710, L3410.1000, L3410.0900, L503.0105, L3100.6900, L5500.0550, L3100.3425, L504.2610, L3300.1800, L3410.2400, L3100.5440, L500.4050, L101.9900, L3300.1200, L5500.0300, L3200.1100 ####[facility] [address] [place], [address] DOG EPITHELIA <0.10 Normal Class 0 [facility] Comment on above: Performed By: #### L 501.6710, L3410.1000, L3410.0900, L503.0105, L3100.6900, L5500.0550, L3100.3425, L504.2610, L3300.1800, L3410.2400, L3100.5440, L500.4050, L101.9900, L3300.1200, L5500.0300, L3200.1100 ####[facility] [address] [place], [address] ELM,AMER WHITE <0.10 Normal Class 0 [facility] Comment on above: Performed By: #### L 501.6710, L3410.1000, L3410.0900, L503.0105, L3100.6900, L5500.0550, L3100.3425, L504.2610, L3300.1800, L3410.2400, L3100.5440, L500.4050, L101.9900, L3300.1200, L5500.0300, L3200.1100 ####[facility] [address] [place], [address] Mouse Urine <0.10 Normal Class 0 [facility] Comment on above: Result Comment: Perf ormed at: - [facility] [id number] Director: Cleveland Poon PhD, Phone: [phone] at: [facility] [address] [id number] Director: Jerrell Napoles MD, Phone: [phone] Performed By: #### L 501.6710, L3410.1000, L3410.0900, L503.0105, L3100.6900, L5500.0550, L3100.3425, L504.2610, L3300.1800, L3410.2400, L3100.5440, L500.4050, L101.9900, L3300.1200, L5500.0300, L3200.1100 ####[facility] [address] [place], [place], [phone] JE, BARRY <0.10 Normal Class 0 [facility] Comment on above: Performed By: #### L 501.6710, L3410.1000, L3410.0900, L503.0105, L3100.6900, L5500.0550, L3100.3425, L504.2610, L3300.1800, L3410.2400, L3100.5440, L500.4050, L101.9900, L3300.1200, L5500.0300, L3200.1100 ####[facility] [address] [place], [place], [phone] SHANELLE HOLLOWAY <0.10 Normal Class 0 [facility] Comment on above: Performed By: #### L 501.6710, L3410.1000, L3410.0900, L503.0105, L3100.6900, L5500.0550, L3100.3425, L504.2610, L3300.1800, L3410.2400, L3100.5440, L500.4050, L101.9900, L3300.1200, L5500.0300, L3200.1100 ####[facility] [address] [place], [place], [phone] Platiza /COM <0.10 Normal Class 0 [facility] Comment on above: Performed By: #### L 501.6710, L3410.1000, L3410.0900, L503.0105, L3100.6900, L5500.0550, L3100.3425, L504.2610, L3300.1800, L3410.2400, L3100.5440, L500.4050, L101.9900, L3300.1200, L5500.0300, L3200.1100 ####[facility] [address] [place], [place], [phone] Angiotensin Convert Enzymeon 01-03-2025 ANGIOT-CONV.ENZ 56 U/L Normal 14-82 [facility] Comment on above: Performed By: #### L 501.6710, L3410.1000, L3410.0900, L503.0105, L3100.6900, L5500.0550, L3100.3425, L504.2610, L3300.1800, L3410.2400, L3100.5440, L500.4050, L101.9900, L3300.1200, L5500.0300, L3200.1100 ####[facility] [address] [facility] [place], [place], [phone] Anti-Parietal Cell AB, QNon 01-03-2025 ANTIPARIET CELL 1.7 Units Normal 0.0-20.0 [facility] Comment on above: Result Comment: Nega tive 0.0 - 20.0 Equivocal 20.1 - 24.9 Positive >24.9Parietal Cell Antibodies are found in 90% of patientswith pernicious anemia and 30% of first degreerelatives with pernicious anemia. Performed By: #### L 501.6710, L3410.1000, L3410.0900, L503.0105, L3100.6900, L5500.0550, L3100.3425, L504.2610, L3300.1800, L3410.2400, L3100.5440, L500.4050, L101.9900, L3300.1200, L5500.0300, L3200.1100 ####[facility] [address] [place], [place], [phone] Celiac Disease Profileon ENDOMYSIAL IGA Negative Normal Negative [facility] Comment on above: Performed By: #### L 501.6710, L3410.1000, L3410.0900, L503.0105, L3100.6900, L5500.0550, L3100.3425, L504.2610, L3300.1800, L3410.2400, L3100.5440, L500.4050, L101.9900, L3300.1200, L5500.0300, L3200.1100 ####[facility] [address] [place], [place], [phone] tTG IGA <2 Normal 0-3 [facility] Comment on above: Result Comment: Nega tive 0 - 3 Weak Positive 4 - 10 Positive >10 Tissue Transglutaminase (tTG) has been identified as the endomysial antigen. Studies have demonstr- ated that endomysial IgA antibodies have over 99% specificity for gluten sensitive enteropathy. Performed By: #### L 501.6710, L3410.1000, L3410.0900, L503.0105, L3100.6900, L5500.0550, L3100.3425, L504.2610, L3300.1800, L3410.2400, L3100.5440, L500.4050, L101.9900, L3300.1200, L5500.0300, L3200.1100 ####[facility] [address] [place], [place], [phone] Gastrin, Serumon 01-03-2025 GASTRIN 92 pg/mL Normal 0-115 [facility] Comment on above: Result Comment: Siem ens Ca[employer] Scientificulite 2000 Immunochemiluminometric assay (ICMA)Values obtained with different assay methods or kits cannotbe used interchangeably. Results cannot be interpreted asabsolute evidence of the presence or absence of malignantdisease. Performed By: #### L 501.6710, L3410.1000, L3410.0900, L503.0105, L3100.6900, L5500.0550, L3100.3425, L504.2610, L3300.1800, L3410.2400, L3100.5440, L500.4050, L101.9900, L3300.1200, L5500.0300, L3200.1100 ####[facility] [address] [place], [place], [phone] JAMAAL + Protein Elect, Serumon 01-03-2025 Albumin [Mass/Vol] 3.6 g/dL Normal 2.9-4.4 [facility] Comment on above: Order Comment: N Performed By: #### L 501.6710, L3410.1000, L3410.0900, L503.0105, L3100.6900, L5500.0550, L3100.3425, L504.2610, L3300.1800, L3410.2400, L3100.5440, L500.4050, L101.9900, L3300.1200, L5500.0300, L3200.1100 ####[facility] [address] [place], [address] Albumin/Globulin [Mass ratio] 0.9 {ratio} Normal 0.7-1.7 [facility] Comment on above: Order Comment: N Performed By: #### L 501.6710, L3410.1000, L3410.0900, L503.0105, L3100.6900, L5500.0550, L3100.3425, L504.2610, L3300.1800, L3410.2400, L3100.5440, L500.4050, L101.9900, L3300.1200, L5500.0300, L3200.1100 ####[facility] [address] [place], [place], [phone] FXMWJ-5-AYIF 0.3 g/dL Normal 0.0-0.4 [facility] Comment on above: Order Comment: N Performed By: #### L 501.6710, L3410.1000, L3410.0900, L503.0105, L3100.6900, L5500.0550, L3100.3425, L504.2610, L3300.1800, L3410.2400, L3100.5440, L500.4050, L101.9900, L3300.1200, L5500.0300, L3200.1100 ####[facility] [address] [place], [place], [phone](798) NDQSC-7-WCQX 0.9 g/dL Normal 0.4-1.0 [facility] Comment on above: Order Comment: N Performed By: #### L 501.6710, L3410.1000, L3410.0900, L503.0105, L3100.6900, L5500.0550, L3100.3425, L504.2610, L3300.1800, L3410.2400, L3100.5440, L500.4050, L101.9900, L3300.1200, L5500.0300, L3200.1100 ####[facility] [address] [place], [phone]) BETA GLOBULIN 1.2 g/dL Normal 0.7-1.3 [facility] Comment on above: Order Comment: N Performed By: #### L 501.6710, L3410.1000, L3410.0900, L503.0105, L3100.6900, L5500.0550, L3100.3425, L504.2610, L3300.1800, L3410.2400, L3100.5440, L500.4050, L101.9900, L3300.1200, L5500.0300, L3200.1100 ####[facility] [address] [place], [place], [phone](019) GAMMA GLOBULIN 1.6 g/dL Normal 0.4-1.8 [facility] Comment on above: Order Comment: N Performed By: #### L 501.6710, L3410.1000, L3410.0900, L503.0105, L3100.6900, L5500.0550, L3100.3425, L504.2610, L3300.1800, L3410.2400, L3100.5440, L500.4050, L101.9900, L3300.1200, L5500.0300, L3200.1100 ####[facility] [address] [place], [place], [phone] Globulin (S) [Mass/Vol] 4.1 g/dL Abnormal 2.2-3.9 [facility] Comment on above: Order Comment: N Performed By: #### L 501.6710, L3410.1000, L3410.0900, L503.0105, L3100.6900, L5500.0550, L3100.3425, L504.2610, L3300.1800, L3410.2400, L3100.5440, L500.4050, L101.9900, L3300.1200, L5500.0300, L3200.1100 ####[facility] [address] [place], [address] JAMAAL RESULT,S Comment: Normal . [facility] Comment on above: Order Comment: N Result Comment: Pres ence of monoclonal protein is unclear at this time. Suggestrepeat in 3 to 6 months if clinically indicated. Performed By: #### L 501.6710, L3410.1000, L3410.0900, L503.0105, L3100.6900, L5500.0550, L3100.3425, L504.2610, L3300.1800, L3410.2400, L3100.5440, L500.4050, L101.9900, L3300.1200, L5500.0300, L3200.1100 ####[facility] [address] [place], [place], [phone] IMMUNOGLOB A QN 258 mg/dL Normal 87-352 [facility] Comment on above: Order Comment: N Performed By: #### L 501.6710, L3410.1000, L3410.0900, L503.0105, L3100.6900, L5500.0550, L3100.3425, L504.2610, L3300.1800, L3410.2400, L3100.5440, L500.4050, L101.9900, L3300.1200, L5500.0300, L3200.1100 ####[facility] [address] [place], [address] IMMUNOGLOB G QN 1495 mg/dL Normal 586-1602 [facility] Comment on above: Order Comment: N Performed By: #### L 501.6710, L3410.1000, L3410.0900, L503.0105, L3100.6900, L5500.0550, L3100.3425, L504.2610, L3300.1800, L3410.2400, L3100.5440, L500.4050, L101.9900, L3300.1200, L5500.0300, L3200.1100 ####[facility] [address] [place], [place], [phone](213) IMMUNOGLOB M QN 131 mg/dL Normal 26-217 [facility] Comment on above: Order Comment: N Performed By: #### L 501.6710, L3410.1000, L3410.0900, L503.0105, L3100.6900, L5500.0550, L3100.3425, L504.2610, L3300.1800, L3410.2400, L3100.5440, L500.4050, L101.9900, L3300.1200, L5500.0300, L3200.1100 ####[facility] [address] [place], [place], [phone](237) M-Lalo Not Observed Normal Not Observed [facility] Comment on above: Order Comment: N Performed By: #### L 501.6710, L3410.1000, L3410.0900, L503.0105, L3100.6900, L5500.0550, L3100.3425, L504.2610, L3300.1800, L3410.2400, L3100.5440, L500.4050, L101.9900, L3300.1200, L5500.0300, L3200.1100 ####[facility] [address] [place], [place], [id number] NOTE: Comment Normal . [facility] Comment on above: Order Comment: N Result Comment: Prot ein electrophoresis scan will follow via computer,mail, or retoucher delivery. Performed By: #### L 501.6710, L3410.1000, L3410.0900, L503.0105, L3100.6900, L5500.0550, L3100.3425, L504.2610, L3300.1800, L3410.2400, L3100.5440, L500.4050, L101.9900, L3300.1200, L5500.0300, L3200.1100 ####[facility] [address] [place], [address] Protein [Mass/Vol] 7.7 g/dL Normal 6.0-8.5 [facility] Comment on above: Order Comment: N Performed By: #### L 501.6710, L3410.1000, L3410.0900, L503.0105, L3100.6900, L5500.0550, L3100.3425, L504.2610, L3300.1800, L3410.2400, L3100.5440, L500.4050, L101.9900, L3300.1200, L5500.0300, L3200.1100 ####[facility] [address] [place], [address] Immunoglobulins G/A/M/Endy IMMUNOGLOB E QN 48 IU/mL Normal 6-495 [facility] Comment on above: Order Comment: N Performed By: #### L 501.6710, L3410.1000, L3410.0900, L503.0105, L3100.6900, L5500.0550, L3100.3425, L504.2610, L3300.1800, L3410.2400, L3100.5440, L500.4050, L101.9900, L3300.1200, L5500.0300, L3200.1100 ####[facility] [address] [place], [place], [phone] Intrinsic Factor Abon 2024 INTRINS FACT AB 1.0 AU/mL Normal 0.0-1.1 [facility] Comment on above: Result Comment: Perf ormed at: [facility] [id number] Director: [place] Poon PhD, Phone: [phone] at: [facility] [id number] Director: Jerrell Napoles MD, Phone: [phone] Performed By: #### L 501.6710, L3410.1000, L3410.0900, L503.0105, L3100.6900, L5500.0550, L3100.3425, L504.2610, L3300.1800, L3410.2400, L3100.5440, L500.4050, L101.9900, L3300.1200, L5500.0300, L3200.1100 ####[facility] [address] [place], [address] L5500.0550on 01-03-2025 BEEF <0.10 Normal Class 0 [facility] Comment on above: Performed By: #### L 501.6710, L3410.1000, L3410.0900, L503.0105, L3100.6900, L5500.0550, L3100.3425, L504.2610, L3300.1800, L3410.2400, L3100.5440, L500.4050, L101.9900, L3300.1200, L5500.0300, L3200.1100 ####[facility] [address] [place], [address] CHOCOLATE <0.10 Normal Class 0 [facility] Comment on above: Performed By: #### L 501.6710, L3410.1000, L3410.0900, L503.0105, L3100.6900, L5500.0550, L3100.3425, L504.2610, L3300.1800, L3410.2400, L3100.5440, L500.4050, L101.9900, L3300.1200, L5500.0300, L3200.1100 ####[facility] [address] [place], [address] CODFISH <0.10 Normal Class 0 [facility] Comment on above: Performed By: #### L 501.6710, L3410.1000, L3410.0900, L503.0105, L3100.6900, L5500.0550, L3100.3425, L504.2610, L3300.1800, L3410.2400, L3100.5440, L500.4050, L101.9900, L3300.1200, L5500.0300, L3200.1100 ####[facility] [address] [place], [address] CORN <0.10 Normal Class 0 [facility] Comment on above: Performed By: #### L 501.6710, L3410.1000, L3410.0900, L503.0105, L3100.6900, L5500.0550, L3100.3425, L504.2610, L3300.1800, L3410.2400, L3100.5440, L500.4050, L101.9900, L3300.1200, L5500.0300, L3200.1100 ####[facility] [address] [place], [address] EGG, WHOLE <0.10 Normal Class 0 [facility] Comment on above: Performed By: #### L 501.6710, L3410.1000, L3410.0900, L503.0105, L3100.6900, L5500.0550, L3100.3425, L504.2610, L3300.1800, L3410.2400, L3100.5440, L500.4050, L101.9900, L3300.1200, L5500.0300, L3200.1100 ####[facility] [address] [place], [place], [phone] MILK (COW) <0.10 Normal Class 0 [facility] Comment on above: Performed By: #### L 501.6710, L3410.1000, L3410.0900, L503.0105, L3100.6900, L5500.0550, L3100.3425, L504.2610, L3300.1800, L3410.2400, L3100.5440, L500.4050, L101.9900, L3300.1200, L5500.0300, L3200.1100 ####[facility] [address] [facility] [place], [place], [phone] MUSSELS <0.10 Normal Class 0 [facility] Comment on above: Performed By: #### L 501.6710, L3410.1000, L3410.0900, L503.0105, L3100.6900, L5500.0550, L3100.3425, L504.2610, L3300.1800, L3410.2400, L3100.5440, L500.4050, L101.9900, L3300.1200, L5500.0300, L3200.1100 ####[facility] [address] [place], [place], [phone] PEANUT <0.10 Normal Class 0 [facility] Comment on above: Performed By: #### L 501.6710, L3410.1000, L3410.0900, L503.0105, L3100.6900, L5500.0550, L3100.3425, L504.2610, L3300.1800, L3410.2400, L3100.5440, L500.4050, L101.9900, L3300.1200, L5500.0300, L3200.1100 ####[facility] [address] [place], [address] PORK <0.10 Normal Class 0 [facility] Comment on above: Performed By: #### L 501.6710, L3410.1000, L3410.0900, L503.0105, L3100.6900, L5500.0550, L3100.3425, L504.2610, L3300.1800, L3410.2400, L3100.5440, L500.4050, L101.9900, L3300.1200, L5500.0300, L3200.1100 ####[facility] [address] [place], [address] SALMON <0.10 Normal Class 0 [facility] Comment on above: Performed By: #### L 501.6710, L3410.1000, L3410.0900, L503.0105, L3100.6900, L5500.0550, L3100.3425, L504.2610, L3300.1800, L3410.2400, L3100.5440, L500.4050, L101.9900, L3300.1200, L5500.0300, L3200.1100 ####[facility] [address] [place], [address] SHRIMP <0.10 Normal Class 0 [facility] Comment on above: Performed By: #### L 501.6710, L3410.1000, L3410.0900, L503.0105, L3100.6900, L5500.0550, L3100.3425, L504.2610, L3300.1800, L3410.2400, L3100.5440, L500.4050, L101.9900, L3300.1200, L5500.0300, L3200.1100 ####[facility] [address] [place], [address] SOYBEAN <0.10 Normal Class 0 [facility] Comment on above: Performed By: #### L 501.6710, L3410.1000, L3410.0900, L503.0105, L3100.6900, L5500.0550, L3100.3425, L504.2610, L3300.1800, L3410.2400, L3100.5440, L500.4050, L101.9900, L3300.1200, L5500.0300, L3200.1100 ####[facility] [address] [place], [place], [phone] TUNA <0.10 Normal Class 0 [facility] Comment on above: Performed By: #### L 501.6710, L3410.1000, L3410.0900, L503.0105, L3100.6900, L5500.0550, L3100.3425, L504.2610, L3300.1800, L3410.2400, L3100.5440, L500.4050, L101.9900, L3300.1200, L5500.0300, L3200.1100 ####[facility] [address] [place], [address] WHEAT <0.10 Normal Class 0 [facility] Comment on above: Performed By: #### L 501.6710, L3410.1000, L3410.0900, L503.0105, L3100.6900, L5500.0550, L3100.3425, L504.2610, L3300.1800, L3410.2400, L3100.5440, L500.4050, L101.9900, L3300.1200, L5500.0300, L3200.1100 ####[facility] [address] [place], [place], [phone] A. alternata IgE Qn (S)Order ed By: Pernell Philippe on 12-28-2024 Alternaria alternata IgE Allergen <0.10 kU/L Class 0 [facility] Addendum DocumentOrdered By: Pernell Philippe on 12-28-2024 Serum Immunofixation Comments Comment . [facility] Comment on above: Protein electrophore sis scan will follow via computer,mail, or retoucher delivery. Albumin Elph [Mass/Vol]Order ed By: Pernell Philippe on 12-28-2024 Albumin [Mass/Vol] 3.6 g/dL 2.9-4.4 [facility] Albumin to globulin ratioOrd ered By: Pernell Philippe on 12-28-2024 Albumin/Globulin [Mass ratio] 1.0 {ratio} 0.9-2.4 [facility] Alpha 1 globulin Elph [Mass/ Vol]Ordered By: Pernell Philippe on 12-28-2024 Qhrcw-6-Okhpkvlbf (JAMAAL) 0.3 g/dL 0.0-0.4 [facility] Bzfzv-0-Luqwwmxmk (JAMAAL) 0.9 g/dL 0.4-1.0 [facility] Somali house dust mite IgE Qn (S)Ordered By: Pernell Philippe on 12-28-2024 Dermatophagoides farinae Allergen <0.10 kU/L Class 0 [facility] Atypical perinuclear antineu trophil cytoplasmic antibodies measurementOrdered By: Pernell Philippe on 12-28-2024 Atypical p-ANCA <1:20 titer Neg:<1:20 [facility] Comment on above: The atypical pANCA p attern has been observed in asignificant percentage of patients with ulcerative colitis,primary sclerosing cholangitis and autoimmune hepatitis. Beef IgE Qn (S)Ordered By: Dixie Philippe on 12-28-2024 Beef Allergen (RAST) <0.10 kU/L Class 0 [facility] Bermuda grass IgE Qn (S)Orde red By: Pernell Philippe on 12-28-2024 Bermuda Grass Allergen <0.10 kU/L Class 0 [facility] Beta globulin Elph [Mass/Vol ]Ordered By: Pernell Philippe on 12-28-2024 Beta-Globulins (JAMAAL) 1.2 g/dL 0.7-1.3 [facility] Bilirubin, totalOrdered By: Pernell Philippe on 12-28-2024 Bilirubin [Mass/Vol] 0.40 mg/dL 0.20-1.00 [facility] Comment on above: For patients on eltr ombopag therapy, use of Dimension Chandler TBIL is not recommended. Blood urea nitrogen (BUN)/cr eatinine ratioOrdered By: Pernell Philippe on 12-28-2024 Urea nitrogen/Creatinine [Mass ratio] 7.2 mg/mg Low 10-20 [facility] C-reactive protein measureme nt by high sensitivity methodOrdered By: Pernell Philippe on 12-28-2024 C-Reactive Protein Extended Range < 2.90 mg/L 0.0-3.0 [facility] Comment on above: C-Reactive Protein ( CRP) provides useful information for thediagnosis, therapy and monitoring of inflammatory processesand associated diseases. For the evaluation of Relative Riskfor Cardiovascular Disease, a High Sensitivity CRP (HSCRP)should be ordered. CRPon 12-28-2024 C-REACTIVE PROT < 2.90 Normal 0.0-3.0 [facility] Comment on above: Result Comment: C-Re active Protein (CRP) provides useful information for thediagnosis, therapy and monitoring of inflammatory processesand associated diseases. For the evaluation of Relative Riskfor Cardiovascular Disease, a High Sensitivity CRP (HSCRP)should be ordered. Performed By: #### L 501.6710, L3410.1000, L3410.0900, L503.0105, L3100.6900, L5500.0550, L3100.3425, L504.2610, L3300.1800, L3410.2400, L3100.5440, L500.4050, L101.9900, L3300.1200, L5500.0300, L3200.1100 ####[facility] [address] [place], [place], [phone] Carbon dioxide measurementOr dered By: Pernell Philippe on 12-28-2024 CO2 [Moles/Vol] 26.0 mmol/L 21.0-32.0 [facility] Cat dander IgE Qn (S)Ordered By: Pernell Philippe on 12-28-2024 Cat Dander IgE Allergen <0.10 kU/L Class 0 [facility] Centromere B antibody assayO rdered By: Pernell Philippe on 12-28-2024 Centromere B Antibody <0.2 AI 0.0-0.9 [facility] Comment on above: Previous reported re sult: TNP AIEdited by: BIA on 01/03/25:0907 AMENDED REPORT 01/03/25906 ANTI-CENT B previously reported as: Test not performed Chloride measurementOrdered By: Pernell Philippe on 12-28-2024 Chloride [Moles/Vol] 104 mmol/L 98-107 [facility] Chocolate IgE Qn (S)Ordered By: Pernell Philippe on 12-28-2024 Chocolate Allergen (RAST) <0.10 kU/L Class 0 [facility] Chromatin antibody assayOrde red By: Pernell Philippe on 12-28-2024 Antichromatin Antibodies <0.2 AI 0.0-0.9 [facility] Comment on above: Previous reported re sult: TNP AIEdited by: BIA on 01/03/25:0907 AMENDED REPORT 01/03/25906 ANTICHROMATIN previously reported as: Test not performed Codfish IgE Qn (S)Ordered By : Pernell Philippe on 12-28-2024 Codfish Allergen (RAST) <0.10 kU/L Class 0 [facility] Comprehensive Metabolic Prof ilon 12-28-2024 Albumin [Mass/Vol] 4.1 g/dL Normal 3.2-5.0 [facility] Comment on above: Performed By: #### L 501.6710, L3410.1000, L3410.0900, L503.0105, L3100.6900, L5500.0550, L3100.3425, L504.2610, L3300.1800, L3410.2400, L3100.5440, L500.4050, L101.9900, L3300.1200, L5500.0300, L3200.1100 ####[facility] [address] [place], [place], [phone] Albumin/Globulin [Mass ratio] 1.0 {ratio} Normal 0.9-2.4 [facility] Comment on above: Performed By: #### L 501.6710, L3410.1000, L3410.0900, L503.0105, L3100.6900, L5500.0550, L3100.3425, L504.2610, L3300.1800, L3410.2400, L3100.5440, L500.4050, L101.9900, L3300.1200, L5500.0300, L3200.1100 ####[facility] [address] [place], [place], [phone] ALK P 26 U/L Low 45-117 [facility] Comment on above: Performed By: #### L 501.6710, L3410.1000, L3410.0900, L503.0105, L3100.6900, L5500.0550, L3100.3425, L504.2610, L3300.1800, L3410.2400, L3100.5440, L500.4050, L101.9900, L3300.1200, L5500.0300, L3200.1100 ####[facility] [address] [place], [address] ALT [Catalytic activity/Vol] 26 U/L Normal 13-56 [facility] Comment on above: Performed By: #### L 501.6710, L3410.1000, L3410.0900, L503.0105, L3100.6900, L5500.0550, L3100.3425, L504.2610, L3300.1800, L3410.2400, L3100.5440, L500.4050, L101.9900, L3300.1200, L5500.0300, L3200.1100 ####[facility] [address] [place], [place], [phone] AST [Catalytic activity/Vol] 27 U/L Normal 15-37 [facility] Comment on above: Performed By: #### L 501.6710, L3410.1000, L3410.0900, L503.0105, L3100.6900, L5500.0550, L3100.3425, L504.2610, L3300.1800, L3410.2400, L3100.5440, L500.4050, L101.9900, L3300.1200, L5500.0300, L3200.1100 ####[facility] [address] [place], [address] Bilirubin [Mass/Vol] 0.40 mg/dL Normal 0.20-1.00 [facility] Comment on above: Result Comment: For patients on eltrombopag therapy, use of Dimension Chandler TBIL is not recommended. Performed By: #### L 501.6710, L3410.1000, L3410.0900, L503.0105, L3100.6900, L5500.0550, L3100.3425, L504.2610, L3300.1800, L3410.2400, L3100.5440, L500.4050, L101.9900, L3300.1200, L5500.0300, L3200.1100 ####[facility] [address] [place], [place], [phone] BUN/CRE 7.2 RATIO Low 10-20 [facility] Comment on above: Performed By: #### L 501.6710, L3410.1000, L3410.0900, L503.0105, L3100.6900, L5500.0550, L3100.3425, L504.2610, L3300.1800, L3410.2400, L3100.5440, L500.4050, L101.9900, L3300.1200, L5500.0300, L3200.1100 ####[facility] [address] [place], [place], [phone] CA,Total 9.4 mg/dL Normal 8.5-10.1 [facility] Comment on above: Performed By: #### L 501.6710, L3410.1000, L3410.0900, L503.0105, L3100.6900, L5500.0550, L3100.3425, L504.2610, L3300.1800, L3410.2400, L3100.5440, L500.4050, L101.9900, L3300.1200, L5500.0300, L3200.1100 ####[facility] [address] [place], [place], [phone] Chloride [Moles/Vol] 104 mmol/L Normal 98-107 [facility] Comment on above: Performed By: #### L 501.6710, L3410.1000, L3410.0900, L503.0105, L3100.6900, L5500.0550, L3100.3425, L504.2610, L3300.1800, L3410.2400, L3100.5440, L500.4050, L101.9900, L3300.1200, L5500.0300, L3200.1100 ####[facility] [address] [place], [place], [phone] CO2 [Moles/Vol] 26.0 mmol/L Normal 21.0-32.0 [facility] Comment on above: Performed By: #### L 501.6710, L3410.1000, L3410.0900, L503.0105, L3100.6900, L5500.0550, L3100.3425, L504.2610, L3300.1800, L3410.2400, L3100.5440, L500.4050, L101.9900, L3300.1200, L5500.0300, L3200.1100 ####[facility] [address] [place], [place], [phone] Creatinine [Mass/Vol] 0.84 mg/dL Normal 0.55-1.02 [facility] Comment on above: Result Comment: The validity of the calculated GFR GFRAA in patients over70 years has not been determined. Clinical correlation isessential. Performed By: #### L 501.6710, L3410.1000, L3410.0900, L503.0105, L3100.6900, L5500.0550, L3100.3425, L504.2610, L3300.1800, L3410.2400, L3100.5440, L500.4050, L101.9900, L3300.1200, L5500.0300, L3200.1100 ####[facility] [address] [place], [place], [phone] EST GFR - AA 88 mL/min Normal >60 [facility] Comment on above: Result Comment: Afri can Somali GFR Calc Performed By: #### L 501.6710, L3410.1000, L3410.0900, L503.0105, L3100.6900, L5500.0550, L3100.3425, L504.2610, L3300.1800, L3410.2400, L3100.5440, L500.4050, L101.9900, L3300.1200, L5500.0300, L3200.1100 ####[facility] [address] [place], [place], [phone] GAP 8 Normal 5-15 [facility] Comment on above: Performed By: #### L 501.6710, L3410.1000, L3410.0900, L503.0105, L3100.6900, L5500.0550, L3100.3425, L504.2610, L3300.1800, L3410.2400, L3100.5440, L500.4050, L101.9900, L3300.1200, L5500.0300, L3200.1100 ####[facility] [address] [place], [place], [phone] GFR/1.73 sq M.predicted among non-blacks MDRD (S/P/Bld) [Vol rate/Area] 72 mL/min/{1.73_m2} Normal >60 [facility] Comment on above: Result Comment: Non- GFR Calc Performed By: #### L 501.6710, L3410.1000, L3410.0900, L503.0105, L3100.6900, L5500.0550, L3100.3425, L504.2610, L3300.1800, L3410.2400, L3100.5440, L500.4050, L101.9900, L3300.1200, L5500.0300, L3200.1100 ####[facility] [address] [place], [address] Globulin (S) [Mass/Vol] 4.0 g/dL Normal 2.2-4.2 [facility] Comment on above: Performed By: #### L 501.6710, L3410.1000, L3410.0900, L503.0105, L3100.6900, L5500.0550, L3100.3425, L504.2610, L3300.1800, L3410.2400, L3100.5440, L500.4050, L101.9900, L3300.1200, L5500.0300, L3200.1100 ####[facility] [address] [place], [address] Glucose [Mass/Vol] 96 mg/dL Normal 74-106 [facility] Comment on above: Performed By: #### L 501.6710, L3410.1000, L3410.0900, L503.0105, L3100.6900, L5500.0550, L3100.3425, L504.2610, L3300.1800, L3410.2400, L3100.5440, L500.4050, L101.9900, L3300.1200, L5500.0300, L3200.1100 ####[facility] [address] [place], [address] Potassium [Moles/Vol] 4.1 mmol/L Normal 3.5-5.1 [facility] Comment on above: Performed By: #### L 501.6710, L3410.1000, L3410.0900, L503.0105, L3100.6900, L5500.0550, L3100.3425, L504.2610, L3300.1800, L3410.2400, L3100.5440, L500.4050, L101.9900, L3300.1200, L5500.0300, L3200.1100 ####[facility] [address] [place], [place], [phone] Sodium [Moles/Vol] 138 mmol/L Normal 136-145 [facility] Comment on above: Performed By: #### L 501.6710, L3410.1000, L3410.0900, L503.0105, L3100.6900, L5500.0550, L3100.3425, L504.2610, L3300.1800, L3410.2400, L3100.5440, L500.4050, L101.9900, L3300.1200, L5500.0300, L3200.1100 ####[facility] [address] [facility] [place], [place], [phone] T PROT 8.1 g/dL Normal 6.4-8.2 [facility] Comment on above: Performed By: #### L 501.6710, L3410.1000, L3410.0900, L503.0105, L3100.6900, L5500.0550, L3100.3425, L504.2610, L3300.1800, L3410.2400, L3100.5440, L500.4050, L101.9900, L3300.1200, L5500.0300, L3200.1100 ####[facility] [address] [facility] [place], [place], [phone] Urea nitrogen [Mass/Vol] 6 mg/dL Low 7-18 [facility] Comment on above: Performed By: #### L 501.6710, L3410.1000, L3410.0900, L503.0105, L3100.6900, L5500.0550, L3100.3425, L504.2610, L3300.1800, L3410.2400, L3100.5440, L500.4050, L101.9900, L3300.1200, L5500.0300, L3200.1100 ####[facility] [address] [place], [place], [phone] Heiskell IgE Qn (S)Ordered By: Dixie Philippe on 12-28-2024 Heiskell Allergen (RAST) <0.10 kU/L Class 0 [facility] Cow milk IgE Qn (S)Ordered B y: Pernell Philippe on 12-28-2024 Cow's Milk Allergen <0.10 kU/L Class 0 [facility] DNA double strand Ab Qn (S)O rdered By: Pernell Philippe on 12-28-2024 Anti-Double Strand DNA Antibody 1 IU/mL 0-9 [facility] Comment on above: Negative <5 Equivoca l 5 - 9 Positive >9 Dog epithelium IgE Qn (S)Ord ered By: Pernell Philippe on 12-28-2024 Dog Epithelia Allergen <0.10 kU/L Class 0 [facility] Endomysial IgA antibody assa yOrdered By: Pernell Philippe on 12-28-2024 Endomysial IgA Antibody Negative Negative [facility] Erythrocyte Sed Rateon 12-28 SED RATE 13 mm/hr Normal 0-30 [facility] Comment on above: Performed By: #### L 501.6710, L3410.1000, L3410.0900, L503.0105, L3100.6900, L5500.0550, L3100.3425, L504.2610, L3300.1800, L3410.2400, L3100.5440, L500.4050, L101.9900, L3300.1200, L5500.0300, L3200.1100 ####[facility] [address] [place], [place], [phone] Erythrocyte sedimentation ra teOrdered By: Pernell Philippe on 12-28-2024 ESR (Bld) [Velocity] 13 mm/h 0-30 [facility] Estimated glomerular filtrat ion rate (GFR) AmericanOrdered By: Pernell Philippe on 12-28-2024 Estimated GFR (MDRD) Amer 88 mL/min >60 [facility] Comment on above: GFR Calc house dust mite IgE Qn (S)Ordered By: Pernell Philippe on 12-28-2024 Dermatophagoides pteronyss Allergen <0.10 kU/L Class 0 [facility] Gamma globulin Elph [Mass/Vo l]Ordered By: Pernell Philippe on 12-28-2024 Gamma Globulins (JAMAAL) 1.6 g/dL 0.4-1.8 [facility] Gastrin [Mass/Vol]Ordered By : Pernell Philippe on 12-28-2024 Gastrin 92 pg/mL 0-115 [facility] Comment on above: Siemens Immulite 200 0 Immunochemiluminometric assay (ICMA)Values obtained with different assay methods or kits cannotbe used interchangeably. Results cannot be interpreted asabsolute evidence of the presence or absence of malignantdisease. Gastrin, serumOrdered By: Ra mike Philippe on 12-28-2024 Gastrin [Mass/Vol] 92 pg/mL 0-115 [facility] Comment on above: Siemens Immulite 200 0 Immunochemiluminometric assay (ICMA)Values obtained with different assay methods or kits cannotbe used interchangeably. Results cannot be interpreted asabsolute evidence of the presence or absence of malignantdisease. Gastroenterology Visit Repor ton 12-28-2024 Gastroenterology Visit Report Normal [facility] Glomerular filtration rate ( GFR) estimationOrdered By: Pernell Philippe on 12-28-2024 Estimated GFR (MDRD) Non-Af Amer 72 mL/min >60 [facility] Comment on above: Non- GFR Calc GFR/1.73 sq M.predicted among non-blacks MDRD (S/P/Bld) [Vol rate/Area] 72 mL/min/{1.73_m2} >60 [facility] Comment on above: Non- GFR Calc Glucose measurementOrdered B y: Pernell Philippe on 12-28-2024 Glucose [Mass/Vol] 96 mg/dL 74-106 [facility] IgA [Mass/Vol]Ordered By: Ra mike Philippe on 12-28-2024 Immunoglobulin A 258 mg/dL 87-352 [facility] IgEOrdered By: Pernell garcia on 12-28-2024 IgE 48 IU/mL 6-495 [facility] Immunoglobulin E 48 IU/mL 6-495 [facility] IgG [Mass/Vol]Ordered By: Ra mike Philippe on 12-28-2024 Immunoglobulin G 1495 mg/dL [id number] [facility] Immunoglobulin M measurement Ordered By: Pernell Philippe on 12-28-2024 Immunoglobulin M 131 mg/dL 26-217 [facility] Interpretation IEP [Interp]O rdered By: Pernell Philippe on 12-28-2024 Immunofixation Screen Comment: . [facility] Comment on above: Presence of monoclon al protein is unclear at this time. Suggestrepeat in 3 to 6 months if clinically indicated. Interpretation of serum or p lasma protein pattern by immunofixation (narrative resultOrdered By: Pernell Philippe on 12-28-2024 Protein Fractions Immunofixation Helder [Interp] Not Observed g/dL Not Observed [facility] Intrinsic factor abOrdered B y: Pernell Philippe on 12-28-2024 Intrinsic Factor Antibody 1.0 AU/mL 0.0-1.1 [facility] Comment on above: Performed at: [address] [id number] Director: Cleveland Poon PhD, Phone: [phone] at: [facility] [address] [id number] Director: Jerrell Napoles MD, Phone: [phone] Soheila-1 antibody assayOrdered B y: Pernell Philippe on 12-28-2024 SOHEILA-1 Antibody <0.2 AI 0.0-0.9 [facility] Comment on above: Previous reported re sult: TNP AIEdited by: BIA on 01/03/25:0907 AMENDED REPORT 01/03/25 0907 ANTI-SOHEILA previously reported as: Test not performed Kentucky blue grass IgE Qn ( S)Ordered By: Pernell Philippe on 12-28-2024 Kentucky Blue (April) Grass IgE Ab <0.10 kU/L Class 0 [facility] LDHon 12-28-2024 LDH 169 U/L Normal 84-246 [facility] Comment on above: Order Comment: 1 Performed By: #### L 501.6710, L3410.1000, L3410.0900, L503.0105, L3100.6900, L5500.0550, L3100.3425, L504.2610, L3300.1800, L3410.2400, L3100.5440, L500.4050, L101.9900, L3300.1200, L5500.0300, L3200.1100 ####[facility] [id number] [place], [place], [address] Laboratory - Chemistry and C hemistry - challengeOrdered By: Pernell Philippe on 12-28-2024 AST [Catalytic activity/Vol] 27 U/L 15-37 [facility] Laboratory - Miscellaneous t estsOrdered By: Pernell Philippe on 12-28-2024 Service comment (Unsp spec) [Interp] Comment . [facility] Comment on above: Levels of Specific I [...] 12-28-2024 LDH [Catalytic activity/Vol] 169 U/L 84-246 [facility] Mouse urine IgEOrdered By: Dixie Philippe on 12-28-2024 Mouse Urine Allergen IgE Antibody <0.10 kU/L Class 0 [facility] Comment on above: Performed at: [address] [id number] Director: Cleveland Poon PhD, Phone: [phone] at: [facility] [address] [id number] Director: Jerrell Napoles MD, Phone: [phone] Neutrophil cytoplasmic Ab.cl assic Qn (S)Ordered By: Pernell Philippe on 12-28-2024 Cytoplasmic ANCA (c-ANCA) Antibody <1:20 titer Neg:<1:20 [facility] Neutrophil cytoplasmic Ab.pe rinuclear IF (S) [Titer]Ordered By: Pernell Philippe on 12-28-2024 Perinuclear ANCA (p-ANCA) Antibody <1:20 titer Neg:<1:20 [facility] Comment on above: The presence of posi tive fluorescence exhibiting P-ANCA orC-ANCA patterns alone is not specific for the diagnosis ofWegener's Granulomatosis (WG) or microscopic polyangiitis.Decisions about treatment should not be based solely onANCA IFA results. The International ANCA Group Consensusrecommends follow up testing of positive sera with both NC-3 and MPO-ANCA enzyme immunoassays. As many as 5% serumsamples are positive only by EIA. Ref. AM J Clin Nnurfx4408;111:507-513. No Panel InformationOrdered By: Pernell Philippe on 12-28-2024 Addendum Document Comment . [facility] Comment on above: Protein electrophore sis scan will follow via computer,mail, or retoucher delivery. Parietal cell Ab Qn (S)Order ed By: Pernell Philippe on 12-28-2024 Anti-Parietal Cell Antibody 1.7 Units 0.0-20.0 [facility] Comment on above: Negative 0.0 - 20.0 Equivocal 20.1 - 24.9 Positive >24.9Parietal Cell Antibodies are found in 90% of patientswith pernicious anemia and 30% of first degreerelatives with pernicious anemia. Peanut IgE Qn (S)Ordered By: Pernell Philippe on 12-28-2024 Peanut Allergen (RAST) <0.10 kU/L Class 0 [facility] Pork IgE Qn (S)Ordered By: Dixie Philippe on 12-28-2024 Pork Allergen (RAST) <0.10 kU/L Class 0 [facility] Potassium measurementOrdered By: Pernell Philippe on 12-28-2024 Potassium [Moles/Vol] 4.1 mmol/L 3.5-5.1 [facility] Protein Fractions Immunofixa tion Helder [Interp]Ordered By: Pernell Philippe on 12-28-2024 M-Lalo (JAMAAL) Not Observed g/dL Not Observed [facility] ARTIFICIAL BREEDING RANCH SUPERVISOR abOrdered By: Pernell Rajan iend on 12-28-2024 ARTIFICIAL BREEDING RANCH SUPERVISOR Antibody <0.2 AI 0.0-0.9 [facility] Comment on above: Previous reported re sult: TNP AIEdited by: BIA on 01/03/25:0907 AMENDED REPORT 01/03/25906 ARTIFIC[employer] BREEDING RANCH SUPERVISOR Ab previously reported as: Test not performed SCL-70 extractable nuclear A b Qn (S)Ordered By: Pernell Philippe on 12-28-2024 Scl-70 (Scleroderma) Antibody <0.2 AI 0.0-0.9 [facility] SS-A IgG antibody assayOrder ed By: Pernell Philippe on 12-28-2024 SS-A/Ro IgG Antibody < 0.2 AI 0.0-0.9 [facility] Comment on above: Previous reported re sult: TNP AIEdited by: BIA on 01/03/25:0907 AMENDED REPORT 01/03/25906 Anti-SS-A previously reported as: Test not performed SS-B IgG antibody assayOrder ed By: Pernell Philippe on 12-28-2024 SS-B/La IgG Antibody < 0.2 AI 0.0-0.9 [facility] Comment on above: Previous reported re sult: TNP AIEdited by: BIA on 01/03/25:0907 AMENDED REPORT 01/03/25 09 Anti-SS-B previously reported as: Test not performed [place] IgE Qn (S)Ordered By: Pernell Philippe on 12-28-2024 [place] Allergen IgE Antibody <0.10 kU/L Class 0 [facility] Serum Bermuda grass IgE anti body assay (units/volume)Ordered By: Pernell Philippe on 12-28-2024 Bermuda grass IgE Qn (S) <0.10 kU/L Class 0 [facility] Serum DNA double strand anti body assay (units/volume)Ordered By: Pernell Philippe on 12-28-2024 DNA double strand Ab Qn (S) 1 [IU]/mL 0-9 [facility] Comment on above: Negative <5 Equivoca l 5 - 9 Positive >9 Serum Japanese plantain speci fic IgE antibody assayOrdered By: Pernell Philippe on 12-28-2024 Japanese Plantain Allergen (RAST) <0.10 kU/L Class 0 [facility] Serum house dust mi te IgE antibody assay (units/volume)Ordered By: Pernell Philippe on 12-28-2024 house dust mite IgE Qn (S) <0.10 kU/L Class 0 [facility] Serum Kentucky blue grass Ig E antibody assay (units/volume)Ordered By: Pernell Philippe on 12-28-2024 [place] blue grass IgE Qn (S) <0.10 kU/L Class 0 [facility] Serum Scl-70 antibody assay (units/volume)Ordered By: Pernell Philippe on 12-28-2024 SCL-70 extractable nuclear Ab Qn (S) <0.2 AI 0.0-0.9 [facility] Serum albumin/globulin ratio Ordered By: Pernell Philippe on 12-28-2024 Albumin/Globulin (JAMAAL) 0.9 0.7-1.7 [facility] Serum anion gap measurementO rdered By: Pernell Philippe on 12-28-2024 Anion gap [Moles/Vol] 8 mmol/L 5-15 [facility] Serum beef IgE antibody assa y (units/volume)Ordered By: Pernell Philippe on 12-28-2024 Beef IgE Qn (S) <0.10 kU/L Class 0 [facility] Serum cat dander IgE antibod y assay (units/volume)Ordered By: Pernell Philippe on 12-28-2024 Cat dander IgE Qn (S) <0.10 kU/L Class 0 [facility] Serum classic neutrophil cyt oplasmic antibody assay (units/volume)Ordered By: Pernell Philippe on 12-28-2024 Neutrophil cytoplasmic Ab.classic Qn (S) <1:20 titer Neg:<1:20 [facility] Serum codfish IgE antibody a ssay (units/volume)Ordered By: Pernell Philippe on 12-28-2024 Codfish IgE Qn (S) <0.10 kU/L Class 0 [facility] Serum common/short ragweed s pecific IgE antibody assayOrdered By: Pernell Philippe on 12-28-2024 Common Ragweed (Short) Allergen <0.10 kU/L Class 0 [facility] Serum corn IgE antibody assa y (units/volume)Ordered By: Pernell Philippe on 12-28-2024 [place] IgE Qn (S) <0.10 kU/L Class 0 [facility] Serum cow milk IgE antibody assay (units/volume)Ordered By: Pernell Philippe on 12-28-2024 Cow milk IgE Qn (S) <0.10 kU/L Class 0 [facility] Serum dog epithelium IgE ant ibody assay (units/volume)Ordered By: Pernell Philippe on 12-28-2024 Dog epithelium IgE Qn (S) <0.10 kU/L Class 0 [facility] Serum globulin measurement ( mass/volume)Ordered By: Pernell Philippe on 12-28-2024 Globulin (S) [Mass/Vol] 4.1 g/dL High 2.2-3.9 [facility] Serum mussel specific IgE an tibody assayOrdered By: Pernell Philippe on 12-28-2024 Mussel Allergen IgE Antibody <0.10 kU/L Class 0 [facility] Serum or plasma IgA measurem ent (mass/volume)Ordered By: Pernell Philippe on 12-28-2024 IgA [Mass/Vol] 258 mg/dL 87-352 [facility] Serum or plasma IgG measurem ent (mass/volume)Ordered By: Pernell Philippe on 12-28-2024 IgG [Mass/Vol] 1495 mg/dL 586-1602 [facility] Serum or plasma alanine benoit otransferase (ALT) measurementOrdered By: Pernell Philippe on 12-28-2024 ALT [Catalytic activity/Vol] 26 U/L 13-56 [facility] Serum or plasma albumin bernard urement (mass/volume)Ordered By: Pernell Philippe on 12-28-2024 Albumin [Mass/Vol] 4.1 g/dL 3.2-5.0 [facility] Serum or plasma alkaline bridget sphatase measurementOrdered By: Pernell Philippe on 12-28-2024 ALP [Catalytic activity/Vol] 26 U/L Low 45-117 [facility] Serum or plasma alpha 1 glob ulin measurement by electrophoresis (mass/volume)Ordered By: Pernell Philippe on 12-28-2024 Alpha 1 globulin Elph [Mass/Vol] 0.3 g/dL 0.0-0.4 [facility] Alpha 1 globulin Elph [Mass/Vol] 0.9 g/dL 0.4-1.0 [facility] Serum or plasma angiotensin converting enzyme measurement (enzymatic activity/volume)Ordered By: Pernell Philippe on 12-28-2024 Angiotensin converting enzyme [Catalytic activity/Vol] 56 U/L 14-82 [facility] Serum or plasma beta globuli n measurement by electrophoresis (mass/volume)Ordered By: Pernell Philippe on 12-28-2024 Beta globulin Elph [Mass/Vol] 1.2 g/dL 0.7-1.3 [facility] Serum or plasma calcium bernard urement (mass/volume)Ordered By: Pernell Philippe on 12-28-2024 Calcium [Mass/Vol] 9.4 mg/dL 8.5-10.1 [facility] Serum or plasma creatinine m easurement (mass/volume)Ordered By: Pernell Philippe on 12-28-2024 Creatinine [Mass/Vol] 0.84 mg/dL 0.55-1.02 [facility] Comment on above: The validity of the calculated GFR & GFRAA in patients over 70 years has not been determined. Clinical correlation is essential. Serum or plasma gamma globul in measurement by electrophoresis (mass/volume)Ordered By: Pernell Philippe on 12-28-2024 Gamma globulin Elph [Mass/Vol] 1.6 g/dL 0.4-1.8 [facility] Serum or plasma immunoelectr ophoresis interpretation (nominal result)Ordered By: Pernell Philippe on 12-28-2024 Interpretation IEP [Interp] Comment: . [facility] Comment on above: Presence of monoclon al protein is unclear at this time. Suggestrepeat in 3 to 6 months if clinically indicated. Serum or plasma protein bernard urement (mass/volume)Ordered By: Pernell Philippe on 12-28-2024 Protein [Mass/Vol] 7.7 g/dL 6.0-8.5 [facility] Serum or plasma urea nitroge n measurement (mass/volume)Ordered By: Pernell Philippe on 12-28-2024 Urea nitrogen [Mass/Vol] 6 mg/dL Low 7-18 [facility] Serum parietal cell antibody assay (units/volume)Ordered By: Pernell Philippe on 12-28-2024 Parietal cell Ab Qn (S) 1.7 Units 0.0-20.0 [facility] Comment on above: Negative 0.0 - 20.0 Equivocal 20.1 - 24.9 Positive >24.9Parietal Cell Antibodies are found in 90% of patientswith pernicious anemia and 30% of first degreerelatives with pernicious anemia. Serum peanut IgE antibody as say (units/volume)Ordered By: Pernell Philippe on 12-28-2024 Peanut IgE Qn (S) <0.10 kU/L Class 0 [facility] Serum perinuclear neutrophil cytoplasmic antibody titer by immunofluorescenceOrdered By: Pernell Philippe on 12-28-2024 Neutrophil cytoplasmic Ab.perinuclear IF (S) [Titer] <1:20 titer Neg:<1:20 [facility] Comment on above: The presence of posi tive fluorescence exhibiting P-ANCA orC-ANCA patterns alone is not specific for the diagnosis ofWegener's Granulomatosis (WG) or microscopic polyangiitis.Decisions about treatment should not be based solely onANCA IFA results. The International ANCA Group Consensusrecommends follow up testing of positive sera with both NC-3 and MPO-ANCA enzyme immunoassays. As many as 5% serumsamples are positive only by EIA. Ref. AM J Clin [id number];111:507-513. Serum pork IgE antibody assa y (units/volume)Ordered By: Pernell Philippe on 12-28-2024 Pork IgE Qn (S) <0.10 kU/L Class 0 [facility] Serum salmon IgE antibody as say (units/volume)Ordered By: Pernell Philippe on 12-28-2024 [place] IgE Qn (S) <0.10 kU/L Class 0 [facility] Serum shrimp specific IgE an tibody assayOrdered By: Pernell Philippe on 12-28-2024 Shrimp Allergen <0.10 kU/L Class 0 [facility] Serum soybean IgE antibody a ssay (units/volume)Ordered By: Pernell Philippe on 12-28-2024 Soybean IgE Qn (S) <0.10 kU/L Class 0 [facility] Serum tissue transglutaminas e (tTG) IgA antibody assay (units/volume)Ordered By: Pernell Philippe on 12-28-2024 tTG IgA Qn (S) <2 U/mL 0-3 [facility] Comment on above: Negative 0 - 3 [...] Class 0 [facility] Serum wheat IgE antibody ass ay (units/volume)Ordered By: Pernell Philippe on 12-28-2024 Wheat IgE Qn (S) <0.10 kU/L Class 0 [facility] Serum white elm IgE antibody assay (units/volume)Ordered By: Pernell Philippe on 12-28-2024 White Elm IgE Qn (S) <0.10 kU/L Class 0 [facility] Serum white oak IgE antibody assay (units/volume)Ordered By: Pernell Philippe on 12-28-2024 Edgar IgE Qn (S) <0.10 kU/L Class 0 [facility] Serum whole egg IgE antibody assay (units/volume)Ordered By: Pernell Philippe on 12-28-2024 Whole Egg IgE Qn (S) <0.10 kU/L Class 0 [facility] Service comment (Unsp spec) [Interp]Ordered By: Pernell Philippe on 12-28-2024 RAST Comment Comment . [facility] Comment on above: Levels of Specific I gE Class Description of Class ----- < 0.10 0 Negative 0.10 - 0.31 0/I Equivocal/Low 0.32 - 0.55 I Low 0.56 - 1.40 II Moderate 1.41 - 3.90 III High 3.91 - 19.00 IV Very High 19.01 - 100.00 V Very High >100.00 Very High [place] antibody assayOrdered By: Pernell Philippe on 12-28-2024 SM Antibody <0.2 AI 0.0-0.9 [facility] Comment on above: Previous reported re sult: TNP AIEdited by: BIA on 01/03/25:0907 AMENDED REPORT 01/03/25 0907 BÁRBARA Ab previously reported as: Test not performed Sodium levelOrdered By: Junior Lim on 12-28-2024 Sodium [Moles/Vol] 138 mmol/L 136-145 [facility] Soybean IgE Qn (S)Ordered By : Pernell Philippe on 12-28-2024 Soybean Allergen (RAST) <0.10 kU/L Class 0 [facility] Total proteinOrdered By: Roberto Philippe on 12-28-2024 Protein [Mass/Vol] 8.1 g/dL 6.4-8.2 [facility] Tuna IgE Qn (S)Ordered By: Dixie Philippe on 12-28-2024 Tuna Allergen (RAST) <0.10 kU/L Class 0 [facility] Vitamin B12on 12-28-2024 Cobalamin (Vitamin B12) [Mass/Vol] 333 pg/mL Normal 211-911 [facility] Comment on above: Performed By: #### L 501.6710, L3410.1000, L3410.0900, L503.0105, L3100.6900, L5500.0550, L3100.3425, L504.2610, L3300.1800, L3410.2400, L3100.5440, L500.4050, L101.9900, L3300.1200, L5500.0300, L3200.1100 ####[facility] [id number] [place], [address] Vitamin B12 measurementOrder ed By: Pernell Philippe on 12-28-2024 Cobalamin (Vitamin B12) [Mass/Vol] 333 pg/mL 211-911 [facility] Wheat IgE Qn (S)Ordered By: Pernelllula Philippe on 12-28-2024 Wheat Allergen (RAST) <0.10 kU/L Class 0 [facility] White Elm IgE Qn (S)Ordered By: Pernelllula Philippe on 12-28-2024 [place] Allergen <0.10 kU/L Class 0 [facility] Edgar IgE Qn (S)Ordered By: Pernelllula Philippe on 12-28-2024 Edgar Tree Allergen <0.10 kU/L Class 0 [facility] Whole Egg IgE Qn (S)Ordered By: Pernelllula Philippe on 12-28-2024 Egg Whole Allergen <0.10 kU/L Class 0 [facility] tTG IgA Qn (S)Ordered By: Ra mike Philippe on 12-28-2024 Tissue Transglutaminase IgA Ab <2 U/mL 0-3 [facility] Comment on above: Negative 0 - 3 Weak Positive 4 - 10 Positive >10 Tissue Transglutaminase (tTG) has been identified as the endomysial antigen. Studies have demonstr- ated that endomysial IgA antibodies have over 99% specificity for gluten sensitive enteropathy. Esophagus Dual Contraston Esophagus Dual Contrast Normal [facility] Culture, Throaton 10-02-2024 CUT Mixed normal pierre. No Haemophilus, Streptococcus pneumoniae, beta-hemolytic Streptococcus or Staphylococcus aureus isolated. Normal [facility] Comment on above: Performed By: #### M 100.1000 ####[facility] [id number] [place], [address] CNOVon 09-10-2024 CN Office Visit (UCWSTR ) -------- CATRACHOЮЛИЯ ([id number]) 1955 F Date Time Provider Department 09/10/24 2:30 PM JUAREZ BALL [facility] During your visit today, we recorded the following information about you: Temperature Pulse Respiration Blood pressure 97.2 degrees 93/minute 18/minute 120/72 Weight 61.5 kg Juarez Ball MD 09/10/2024 3:32 PM Signed Patient presents [...] GI consult. She has seen ENT in [place] and may follow up there for neck tenderness. Add an OTC antihistamine such as claritin or zyrtec to help with allergy related head congestion. Patient has been attempting to get re-established with primary care but currently cannot get an appointment sooner than January. Juarez Ball MD Allergies As of Date: 09/10/2024 Noted Allergy React (more content not included)... Normal [facility] STREP A MOLECULAR (POC)on Procedural Control Valid [facility] Strep A (POCT) Negative Negative [facility] CNOVSPon 08-17-2024 CNOVSP Visit (SP) Office (HEMAWS) -------- ЮЛИЯ HAYDEN ([id number]) 1955 F Date Time Provider Department 08/17/24 4:00 PM CRISTHIAN CHRISTENSEN During your visit today, we recorded the following information about you: Temperature Pulse Blood pressure Weight 97.2 degrees 94/minute 100/63 61.5 kg Cristhian Christensen DO 08/18/2024 4:20 PM Signed Hematologic problem(s): 1) IgG lambda MGUS. HPI: The patient is a 69-year-old female with a past medical history as outlined below. Establish with new PCP prior to referral here. Had lab work done through [facility] that showed an increase in serum globulin [...] DX W/COLLJ SPEC WHEN PFRMD Done in [place] unable to obtain COLONOSCOPY FLX DX W/COLLJ [...] mg tablet (more content not included)... Normal [facility] CNPNon 08-17-2024 CNPN Telephone (HEMAWS) -------- ЮЛИЯ HAYDEN ([id number]) 1955 F Date Time Provider Department 08/17/24 CRISTHIAN CHRISTENSEN During your visit today, we recorded the following information about you: Gabbie Tidwell 08/17/2024 4:40 PM Signed Patient was seen by Dequan/Hermes until a few months ago. Patient left F as she thought her insurance wasn't in network with [facility]. Patient's insurance is in network and wishes to re-establish with Dequan's Team. Please advise if this is an option as she is diabetic and needs to be seen sooner than January with Dr. Tovar. Beatrice Hawk MA 08/17/2024 5:27 PM Signed [...] (FLUOXETINE HCL) 10/26/2013 2 - Rash SULFA DERECK 06/09/2012 2 - Rash Date Reviewed: 08/17/2024 Reviewed by: Tori Murphy Ma, SHARRI - Fully Assessed Reason for Visit: Returning [...] Discard Pen After - blood sugar diagnostic (SLIDTOUCH VERIO TEST STRIPS) test strip Test blood [...] loss [ (more content not included)... Normal [facility] CNPNon 08-10-2024 CNPN Telephone (FAMPWS) -------- CATRACHOЮЛИЯ Gutierrez ([id number]) 1955 F Date Time Provider Department 08/10/24 [facility] During your visit today, we recorded the following information about you: Franklin Hankins RN 08/10/2024 11:48 AM Signed Patient was transferred to this nurse, after scheduling an appt with [employer] to est care, for Dec. Patient wants sooner appt to est care. Scheduled patient with Dr. Tovar on 09-21-24 at 7 am. This was the only time this nurse could get. This appt, makes 2 appts to est care, on this day, for doctor. Please advise patient if this date/time is not ok [phone]. States she is diabetic, has issues with lungs, kidney and bladder, and needs a doctor to monitor these. Reports she transferred out of [facility] in Dec, and when attempted to transfer back to Dr. Petesren, was told he is no longer accepting new patients. Hemanth Tovar MD 08/10/2024 12:58 PM Signed I already have 2 new patient appointments scheduled for this day. 9 am and 2:20pm. They will need to be scheduled for a day when I have less than 2 new patients scheduled. Franklin Hankins, RN 08/10/2024 4:20 PM Signed Left detailed [...] Date Reviewed: 2024 Reviewed by: Orville Tavares APRN.SCHOOL OFFICE ASSISTANT - Fully Assessed Reason for Visit: Patient [...] Discard Pen After - blood sugar diagnostic (SLIDTOUCH VERIO TEST STRIPS) test strip Test blood [...] [L82.0]12/09/2012 12/05/2017 (more content not included)... Normal [facility] BONE MARROW ANALYSISon 08-05 ADDENDUM 1: Normal [facility] Comment on above: Order Comment: Speci men Type: BONE MARROW SPECIMENOrdering Facility: [facility] Address: [address] [place] [address] Result Comment: This addendum is to note [...] 5:11 PM Performed By: #### B MRT ####[facility] LABIA [id number] [place] [address] [place] CASE REPORT Normal [facility] Comment on above: Order Comment: Giovana alejandre Type: BONE MARROW SPECIMENOrdering Facility: [facility] Address: [address] [place] [address] Result Comment: Bone Marrow Pathology Report Case: [id number] Authorizing Provider: Cristhian Christensen DO Collected: 2024 01:07 PM Ordering Location: Hematology/Oncology Received: 2024 02:33 PM Pathologist: Eriberto Plaza MD Specimens: A) - Bone Marrow, Aspirate, Right, Posterior, Iliac Crest B) - Bone Marrow, Biopsy, Right, Posterior, Iliac Crest C) - Bone Marrow, Clot, Right, Posterior, Iliac Crest D) - Blood Performed By: #### B MRT ####[facility] LABCLIA [id number] [place] [address] [place] DIAGNOSIS COMMENT Normal [facility] Comment on above: Order Comment: Giovana alejandre Type: BONE MARROW SPECIMENOrdering Facility: [facility] Address: [address] [place] [address] Result Comment: The marrow was performed to [...] been determined by the performing laboratory within [facility]???s [facility] Pathology and Laboratory Medicine Department ([facility], [facility], [facility], [facility], [facility], [facility], or [facility]) in a manner consistent with CLIA requirements. One or more of these tests have not been cleared or approved by the FDA. [facility] is regulated under CLIA as qualified to perform high-complexity testing. These tests are used for clinical purposes. They should not be regarded as investigational or for research. Positive and negative controls stain appropriately. Performed By: #### B MRT ####[facility] LABCLIA [id number] [place] [address] [place] FINAL DIAGNOSIS Normal [facility] Comment on above: Order Comment: Speci men Type: BONE MARROW SPECIMENOrdering Facility: [facility] Address: [address] [place] [address] Result Comment: A-C. Bone marrow, aspirate, touch imprint, clot section and core biopsy: - Normocellular marrow (40%) with trilineage hematopoiesis. - Adequate megakaryocytes. - Decreased to absent stainable iron. - Polytypic plasma cell hyperplasia (see comment). D. Peripheral blood smear: - No diagnostic abnormality. KST/ 08/06/2024 Performed By: #### B MRT ####[facility] LABCLIA [id number] [place] [address] [place] FINAL PERFORMING LAB Normal [facility] Comment on above: Order Comment: Speci men Type: BONE MARROW SPECIMENOrdering Facility: [facility] Address: [address] [place] [address] Result Comment: Diag nostic interpretation performed at [facility], [address] [place] [address] CLIA# [id number] Truck Leasing Manager: William Hernández M.D. Performed By: #### B MRT ####[facility] LABCLIA [id number] [address] [place] GROSS DESCRIPTION Normal [facility] Comment on above: Order Comment: Speci men Type: BONE MARROW SPECIMENOrdering Facility: [facility] Address: [address] [place] [address] Result Comment: A. B one Marrow, Aspirate, [...] 2024 8:48 PM Gross examination performed at [facility], [address] [place] [address] Performed By: #### B MRT ####[facility] LABCLIA [id number] [place] [address] [place] MICROSCOPIC DESCRIPTION Normal [facility] Comment on above: Order Comment: Speci men Type: BONE MARROW SPECIMENOrdering Facility: [facility] Address: [address] [place] [address] Result Comment: FERNY PHERAL BLOOD: CBC (2024) [...] KST/ 08/06/2024 Performed By: #### B MRT ####[facility] LABCLIA [id number] [place] [address] [place] BONE MARROW BIOPSYon Orville Ascencio APRN.SCHOOL OFFICE ASSISTANT 2024 1:50 PM BONE MARROW BIOPSY Date/Start Time: 2024 12:52 PM Date/Stop Time: 2024 1:09 PM Performed by: Orville Tavares APRN.RADHA Authorized by: Orville Tavares APRN.CNP Where was Patient When this Procedure was Performed [facility] Informed Consent Consent Obtained: Written [place] Protocol A moment to CARE was completed. [...] Biopsy Site: Right posterior sperior iliac crest Medialets biopsy system was used. Using aseptic technique, [...] Plan of Care Visit completed when applicable [facility] BONE MARROW CHROMOSOME ANALo n 2024 CHROMOSOME BM Normal [facility] Comment on above: Order Comment: Giovana alejandre Type: BONE MARROW SPECIMENOrdering Facility: [facility] Address: [address] [place] [address] Result Comment: Licha soto Accession Number: [id number] Doctor: CRISTHIAN CHRISTENSEN Pathologist: [facility] Pathology No: [id number] Clinical diagnosis: Monoclonal Gammopathy Specimen Type: Bone [...] reviewed by Shira Zavala, Ph.D. Performed by [facility] Molecular Pathology and Cytogenomics ([id number]), Division of Laboratory Medicine Kali Lopez Department of Pathology & Laboratory Medicine, [facility] [place] [address] [place] [address]. [place] [address] Toll free: Performed By: #### C [facility] ####[facility]ALSCLIA [id number] [facility] [place], [place] [address] [place] CBC W Auto Differential pane l (Bld)on 2024 Basophils (Bld) [#/Vol] 0.04 10*3/uL Normal <0.11 [facility] Comment on above: Order Comment: Giovana alejandre Type: BLOOD SPECIMENOrdering Facility: [facility] Address: [address] [place] [address] Performed By: #### 5 7021-8 ####[facility] MILLWNCLIA [id number] [place] [address] [place] Basophils/100 WBC (Bld) 0.5 % Normal [facility] Comment on above: Order Comment: Speci men Type: BLOOD SPECIMENOrdering Facility: [facility] Address: [address] [place] [address] Performed By: #### 5 7021-8 ####[facility]ENTERLIA [id number] [place] [address] [place] Differential cell count method Nom (Bld) Auto Normal [facility] Comment on above: Order Comment: Speci men Type: BLOOD SPECIMENOrdering Facility: [facility] Address: [address] [place] [address] Performed By: #### 5 7021-8 ####[facility] [id number] [place] [address] [place] Eosinophils (Bld) [#/Vol] 0.07 10*3/uL Normal <0.46 [facility] Comment on above: Order Comment: Speci men Type: BLOOD SPECIMENOrdering Facility: [facility] Address: [address] [place] [address] Performed By: #### 5 7021-8 ####[facility] [id number] [address] [place] Eosinophils/100 WBC (Bld) 0.8 % Normal [facility] Comment on above: Order Comment: Speci men Type: BLOOD SPECIMENOrdering Facility: [facility] Address: [address] [place] [address] Performed By: #### 5 7021-8 ####[facility] [id number] [place] [address] [place] Erythrocyte distribution width (RBC) [Ratio] 14.1 % Normal 11.5-15.0 [facility] Comment on above: Order Comment: Speci men Type: BLOOD SPECIMENOrdering Facility: [facility] Address: [address] [place] [address] Performed By: #### 5 7021-8 ####[facility] [id number] [place] [address] [place] Hematocrit (Bld) [Volume fraction] 36.9 % Normal 36.0-46.0 [facility] Comment on above: Order Comment: Speci men Type: BLOOD SPECIMENOrdering Facility: [facility] Address: [address] [place] [address] Performed By: #### 5 7021-8 ####[facility] [id number] [place] [address] [place] Hemoglobin (Bld) [Mass/Vol] 12.4 g/dL Normal 11.5-15.5 [facility] Comment on above: Order Comment: Speci men Type: BLOOD SPECIMENOrdering Facility: [facility] Address: [address] [place] [address] Performed By: #### 5 7021-8 ####[facility] [id number] [place] [address] [place] Immature granulocytes (Bld) [#/Vol] 10*3/uL Normal <0.10 [facility] Comment on above: Order Comment: Speci men Type: BLOOD SPECIMENOrdering Facility: [facility] Address: [address] [place] [address] Performed By: #### 5 7021-8 ####[facility] [id number] [place] [address] [place] Immature granulocytes/100 WBC (Bld) 0.2 % Normal [facility] Comment on above: Order Comment: Speci men Type: BLOOD SPECIMENOrdering Facility: [facility] Address: [address] [place] [address] Performed By: #### 5 7021-8 ####[facility] MARGUERITEWNCLIA [id number] [place] [address] [place] Lymphocytes (Bld) [#/Vol] 2.36 10*3/uL Normal 1.00-4.00 [facility] Comment on above: Order Comment: Speci men Type: BLOOD SPECIMENOrdering Facility: [facility] Address: [address] [place] [address] Performed By: #### 5 7021-8 ####[facility] MIRAMARGABBYLIA [id number] [place] [address] [place] Lymphocytes/100 WBC (Bld) 27.0 % Normal [facility] Comment on above: Order Comment: Speci men Type: BLOOD SPECIMENOrdering Facility: [facility] Address: [address] [place] [address] Performed By: #### 5 7021-8 ####[facility]ENTERLIA [id number] [place] [address] [place] MCH (RBC) [Entitic mass] 29.8 pg Normal 26.0-34.0 [facility] Comment on above: Order Comment: Speci men Type: BLOOD SPECIMENOrdering Facility: [facility] Address: [address] [place] [address] Performed By: #### 5 7021-8 ####[facility] MILLWNCLIA [id number] [place] [address] [place] MCHC (RBC) [Mass/Vol] 33.6 g/dL Normal 30.5-36.0 [facility] Comment on above: Order Comment: Speci men Type: BLOOD SPECIMENOrdering Facility: [facility] Address: [address] [place] [address] Performed By: #### 5 7021-8 ####[facility]ENTERLIA [id number] [place] [address] [place] MCV (RBC) [Entitic vol] 88.7 fL Normal 80.0-100.0 C [facility] Comment on above: Order Comment: Speci men Type: BLOOD SPECIMENOrdering Facility: [facility] Address: [address] [place] [address] Performed By: #### 5 7021-8 ####[facility] [id number] [place] [address] [place] Monocytes (Bld) [#/Vol] 0.47 10*3/uL Normal <0.87 [facility] Comment on above: Order Comment: Speci men Type: BLOOD SPECIMENOrdering Facility: [facility] Address: [address] [place] [address] Performed By: #### 5 7021-8 ####[facility] [id number] [place] [address] [place] Monocytes/100 WBC (Bld) 5.4 % Normal C [facility] Comment on above: Order Comment: Speci men Type: BLOOD SPECIMENOrdering Facility: [facility] Address: [address] [place] [address] Performed By: #### 5 7021-8 ####[facility] [id number] [place] [address] [place] Neutrophils (Bld) [#/Vol] 5.78 10*3/uL Normal 1.45-7.50 [facility] Comment on above: Order Comment: Speci men Type: BLOOD SPECIMENOrdering Facility: [facility] Address: [address] [place] [address] Performed By: #### 5 7021-8 ####[facility] MIRAMARNCLIA [id number] [place] [address] [place] Neutrophils/100 WBC (Bld) 66.1 % Normal [facility] Comment on above: Order Comment: Speci men Type: BLOOD SPECIMENOrdering Facility: [facility] Address: [address] [place] [address] Performed By: #### 5 7021-8 ####[facility] [id number] [place] [address] [place] Nucleated RBC (Bld) [#/Vol] 10*3/uL Normal <0.01 [facility] Comment on above: Order Comment: Speci men Type: BLOOD SPECIMENOrdering Facility: [facility] Address: [address] [place] [address] Performed By: #### 5 7021-8 ####[facility] [id number] [place] [address] [place] Nucleated RBC/100 WBC (Bld) [Ratio] 0.0 /100 WBC Normal [facility] Comment on above: Order Comment: Speci men Type: BLOOD SPECIMENOrdering Facility: [facility] Address: [address] [place] [address] Performed By: #### 5 7021-8 ####[facility] [id number] [place] [address] [place] Platelet mean volume (Bld) [Entitic vol] 9.6 fL Normal 9.0-12.7 [facility] Comment on above: Order Comment: Speci men Type: BLOOD SPECIMENOrdering Facility: [facility] Address: [address] [place] [address] Performed By: #### 5 7021-8 ####[facility] [id number] [place] [address] [place] Platelets (Bld) [#/Vol] 222 10*3/uL Normal 150-400 [facility] Comment on above: Order Comment: Speci men Type: BLOOD SPECIMENOrdering Facility: [facility] Address: [address] [place], [place] [address] Performed By: #### 5 7021-8 ####[facility] KEVIN EVERETTMILTONNCLIA [id number] [place] [address] [place] RBC (Bld) [#/Vol] 4.16 10*6/uL Normal 3.90-5.20 [facility] Comment on above: Order Comment: Speci men Type: BLOOD SPECIMENOrdering Facility: [facility] Address: [address] [place] [address] Performed By: #### 5 7021-8 ####[facility] MARGUERITEMILTONNCLIA [id number] [place] [address] [place] WBC (Bld) [#/Vol] 8.74 10*3/uL Normal 3.70-11.00 [facility] Comment on above: Order Comment: Speci men Type: BLOOD SPECIMENOrdering Facility: [facility] Address: [address] [place] [address] Performed By: #### 5 7021-8 ####[facility] MIRAMARNCLIA [id number] [place] [address] [place] CNOVSPon 2024 CNOVSP Visit (SP) Office (HEMAWS) -------- ЮЛИЯ HAYDEN ([id number]) 1955 F Date Time Provider Department 08/05/24 [...] was Patient When this Procedure was Performed [facility] Informed Consent Consent Obtained: Written [place] Protocol A moment to CARE was completed. [...] Assisting Clinician(s): Paola Yao MA and Jeremiah Meredtih MA Post-Procedure Details: Patient Tolerance: Patient tolerated [...] SIGNATURE: Orville Tavares APRN.CNP PATIENT NAME: Юлия Hayden DATE: 2024 TIME: 1:47 PM Allergies As [...] Diagnosis:Monoclonal gammopathy [D47.2] Order(s):BONE MARROW ASPIRATE ANDBIOPSY [[id number]] Order #: [id number]: 1 BONE MARROW ANALYSIS [SQBMRT] Order #: [id number]. #:[id number] BONE MARROW CHROMOSOME ANAL [SQCHRBMH] Order #: [id number]. #:[id number] DNA EXTRACTION BONE MARROW (BUFFY COAT) [SQNUCBUF] Order #: [id number]. #:[id number] FLOW CYTOMETRY FOR LEUKEMIA/LYMPHOMA (FCLL) [TIT0689] Order #: [id number]. #:[id number] FISH FOR PLASMA CELL MYELOMA [SQFSHPCM] Order #: [id number]. #:[id number] FLOW CYTOMETRY FOR LEUKEMIA/LYMPHOMA (FCLL) PERFORMABLE [WVP4090] Reflex Order#: [id number] (Ord#:[id number])Spec. #:[id number] (more content not included)... Normal [facility] DNA EXTRACTION BONE MARROW ( BUFFY COAT)on 2024 DNA EXTRACTION BONE MARROW (BUFFY COAT) Normal [facility] Comment on above: Order Comment: Speci pili Type: BONE MARROW SPECIMENOrdering Facility: [facility] Address: [address] [place] [address] Result Comment: This specimen was received and successfully processed for future DNA purification should molecular testing be needed. Specimens will be available for 3 years from date of collection. To order testing on this specimen for [facility] patients, please place an [facility] order for DNA and RNA Clinical Testing (SQNUCADD). To order testing for patients outside of the [facility] system, please request DNA and RNA for Clinical Testing, order code NUCADD. If additional paperwork is required for testing, please send completed forms via secure email to . Performed By: #### N UCBUF ####[facility] [employer] [facility]ALSCLIA [id number] [place] [address] [place] FISH FOR PLASMA CELL MYELOMA on 2024 FISH FOR PLASMA CELL MYELOMA Normal [facility] Comment on above: Order Comment: Giovana alejandre Type: BONE MARROW SPECIMENOrdering Facility: [facility] Address: [address] [place] [address] Result Comment: FISH for Plasma Cell Myeloma Laboratory Accession Number: [id number] Case: [id number] Sample type: Bone Marrow Aspirate Number of [...] from the Clinical Advisory Committee. Blood. 2021 15;140(11):9317-2735 (PMID: 59106500) 2) Sergio SK, Gustavo SV. The multiple myelomas - current concepts in cytogenetic classification and therapy. Nati Rev Oncol. 2018;15(7):409-421 (PMID: 18375905) 3) Gaston JR et al. Management of newly diagnosed symptomatic multiple myeloma: updated [employer] Stratification of Myeloma and Risk- Adapted Therapy (mSMART) consensus guidelines 2013. [employer] Clin Proc 2013 Feb;88(4):360-76 (PMID: 10284114) 4) Beatris PIERRE et al. Consensus recommendations for risk stratification in multiple myeloma: report of the International Myeloma Workshop Consensus Panel 2. Blood 2010March 14;117(18):9249-3225 (PMID: 13339598) METHODOLOGY: Bone marrow plasma cells were isolated by CD138 purification ([employer], [employer], [place], [place], [place]). Interphase fluorescence in situ hybridization was performed using probes to the CDKN2C locus on chromosome 1p32 (Allred Vysis/CytoEasy Voyage), CKS1B locus on chromosome 1q21 (Allred Vysis/CytoEasy Voyage), chromosome 9 centromere (Allred Vysis), t(11;14) (IGH/CCND1) dual color dual fusion probe (Allred Vysis), 13q14 ([place], [facility], [place]), IGH locus on chromosome 14q32 (LSI IGH Dual Color, Break-Apart, Allred Vysis), chromosome 15 centromere (Allred Vysis), and the TP53 locus on chromosome 17p13 (Allred Vysis). 100 plasma cells were scored whenever possible. DISCLAIMER: This test was developed and its performance characteristics determined by [facility]'s Pathology and Laboratory Medicine Department. It has not been cleared or approved by the FDA. [facility] Pathology and Laboratory Medicine Department is regulated under CLIA as certified to perform high-complexity testing. This test is used for clinical purposes. It should not be regarded as investigational or for research. Interpretation performed at [facility], [address] [place] [address]. CLIA Number: [id number] As reviewed by Barbie Nash MD, PhD Performed By: #### F SHP ####[facility] ILLUMINA LIMSCLIA [id number] [place] [address] [place] FLOW CYTOMETRY FOR LEUKEMIA/ LYMPHOMA (FCLL) PERFORMABLEon 2024 FLOW CYTOMETRY ORDER STATUS Results will be reported under F case ID when completed Normal [facility] Comment on above: Order Comment: Speci men Type: BONE MARROW SPECIMENOrdering Facility: [facility] Address: [address] [place] [address] Performed By: #### F CLLP, FCLLRFLX ####[facility] LABCLIA [id number] [place] [address] [place] FLOW CYTOMETRY FOR LEUKEMIA/ LYMPHOMA (FCLL) REFLEXon 2024 DIAGNOSIS COMMENT Normal [facility] Comment on above: Order Comment: Speci men Type: BONE MARROW SPECIMENOrdering Facility: [facility] Address: [address] [place] [address] Result Comment: This assay is not designed to detect minimal residual disease or myeloid antigen maturational patterns. This test was developed and its performance characteristics determined by [facility]'s [facility] Laboratory [facility] [place] (RT-PLMI). It has not been cleared or approved by the FDA. RT-PLMI is regulated under CLIA as qualified to perform high-complexity testing. This test is used for clinical purposes. It should not be regarded as investigational or for research. Performed By: #### F CLLP, FCLLRFLX ####[facility] LABCLIA [id number] [address] OF [facility] FINAL PERFORMING LAB Normal [facility] Comment on above: Order Comment: Speci men Type: BONE MARROW SPECIMENOrdering Facility: [facility] Address: [address] [place] [address] Result Comment: Diag nostic interpretation performed at [facility], [address] [place] [address] CLIA# [id number] Truck Leasing Manager: William Hernández M.D. Performed By: #### F CLLP, FCLLRFLX ####[facility] LABCLIA [id number] [address] STATES [facility] FLOW CYTOMETRY RESULTS Normal [facility] Comment on above: Order Comment: Speci men Type: BONE MARROW SPECIMENOrdering Facility: [facility] Address: [address] [place] [address] Result Comment: Spec imen type: Bone Marrow [...] KST/ 08/06/2024 Performed By: #### F CLLP, SAMUELLX ####[facility] LABCLIA [id number] [address] [place] GROSS DESCRIPTION A. Bone Marrow Normal [facility] Comment on above: Order Comment: Giovana alejandre Type: BONE MARROW SPECIMENOrdering Facility: [facility] Address: [address] [place] [address] Result Comment: Rece ived 4 ml Bm in heparin. Performed By: #### F CLLP, SIENNAX ####[facility] LABCLIA [id number] [address] [place] INTERPRETATION Normal [facility] Comment on above: Order Comment: Giovana alejandre Type: BONE MARROW SPECIMENOrdering Facility: [facility] Address: [address] [place] [address] Result Comment: Ther e is no evidence of involvement by a lymphoproliferative disorder, plasma cell neoplasm, or abnormal blast population. Correlation with the clinical laboratory, radiologic, and bone marrow histopathologic findings is suggested. Performed By: #### F MIHAELA, SIENNAX ####[facility] LABCLIA [id number] [place] [address] [place] HIGH SENSITIVITY TROPONIN To n 2024 Troponin T.cardiac High sensitivity method [Mass/Vol] 8 ng/L Normal <12 [facility] Comment on above: Order Comment: Giovana alejandre Type: BLOOD SPECIMENOrdering Facility: [facility] Address: [address] [place] [address] Performed By: #### 3 3762-6, HSTNT ####[facility] LABIA [id number] [address] [place] NT-proBNP [facility] 08-05 Natriuretic peptide.B prohormone N-Terminal [Mass/Vol] 127 pg/mL High <125 [facility] Comment on above: Order Comment: Giovana pili Type: BLOOD SPECIMENOrdering Facility: [facility] Address: [address] [place] [address] Performed By: #### 3 3762-6, HSTNT ####[facility] LABCLIA [id number] [address] OF [place] CNPCristy 08-02-2024 CNPN Telephone (HEMAWS) -------- ЮЛИЯ HAYDEN ([id number]) 1955 F Date Time Provider Department 08/02/24 CRISTHIAN CHRISTENSEN HEMJARROD During your visit today, we recorded the following information about you: Rosie Tam 08/02/2024 10:08 AM Signed Patient is scheduled for BMBX on 08/05. She states Dr Christensen was going to prescribe a medication to keep her calm. She believes it as Ativan. Patient uses [facility] in [place] for pharm. Emily Tirado LPN 08/02/2024 10:44 [...] to bone marrow biopsy. Authorizing Provider: CRISTHIAN CHRISTENSEN DO Peters, Melanie, LPN 08/02/2024 1:03 PM [...] Fully Assessed Reason for Visit: Patient Question [1297] Primary Visit Diagnosis:Monoclonal gammopathy [D47.2] Order(s):LORazepam (ATIVAN) [...] Discard Pen After - blood sugar diagnostic (SLIDTOUCH VERIO TEST STRIPS) test strip Test blood [...] of fa (more content not included)... Normal [facility] MR Cervical spine WO and W c [...] limits. DIVISION OF RADIOLOGY Provider, Sunny Berkowitz [facility] - 07/29/2024 * * *Final Report* [...] in the cervical, thoracic and lumbar spine Bookkeeper Assistant: PSCB Transcribe Date/Time: Jul 29 2024 3:46P Dictated by : NELSON AVALOS MD This examination was interpreted and the report reviewed and electronically signed by: NELSON AVALOS MD on Jul 29 2024 4:00PM [facility] MR Lumbar spine WO and W con [...] normal limits. DIVISION OF RADIOLOGY [facility] * * *Final Report* * * DATE OF EXAM: Jul 29 2024 2:30PM [facility] 0304 - MRI LUMBAR SPINE WO/W IVCON [...] in the cervical, thoracic and lumbar spine Bookkeeper Assistant: [facility] Transcribe Date/Time: Jul 29 2024 3:46P Dictated by : NELSON AVALOS MD This examination was interpreted and the report reviewed and electronically signed by: NELSON AVALOS MD on Jul 29 2024 4:00PM EST [facility] MR Pelvis WO and W contrast Santino 07-29-2024 IMPRESSION: No suspicious osseous lesions in the pelvis on MRI. 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 Bookkeeper Assistant: TRI Transcribe Date/Time: Jul 29 2024 7:44P Dictated by : ROLA MOODY MD This examination was interpreted and the report reviewed and electronically signed by: ROLA MOODY MD on Jul 29 2024 8:20PM [facility] DIVISION OF RADIOLOGY * * *Final Report* * * DATE OF EXAM: Jul 29 2024 2:30PM [facility] 0230 - MRI PELVIS ORTHO GEN WO/W [...] replacing lesions are identified. Hip joints: Large ndeio-kc-qzcr images of the hips are notable for [...] significant additional findings. DIVISION OF RADIOLOGY Provider, [facility] - 07/29/2024 * * *Final Report* [...] replacing lesions are identified. Hip joints: Large kieoj-of-hvwf images of the hips are notable for [...] 2013. 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 Bookkeeper Assistant: [facility] Transcribe Date/Time: Jul 29 2024 7:44P Dictated by : ROLA MOODY MD This examination was interpreted and the report reviewed and electronically signed by: ROLA MOODY MD on Jul 29 2024 8:20PM [facility] Radiology Study observation (narrative) [facility] MR Pelvis WO and W contrast IVOrdered By: Ccf Provider on 07-29-2024 [facility] MR Thoracic spine WO and W [...] limits. DIVISION OF RADIOLOGY Provider, Sunny Berkowitz [facility] - 07/29/2024 * * *Final Report* * * DATE OF EXAM: Jul 29 2024 2:30PM [facility] 0326 - MRI THORACIC SPINE WO/W IVCON [...] in the cervical, thoracic and lumbar spine Bookkeeper Assistant: PSCB Transcribe Date/Time: Jul 29 2024 3:46P Dictated by : NELSON AVALOS MD This examination was interpreted and the report reviewed and electronically signed by: NELSON AVALOS MD on Jul 29 2024 4:00PM [facility] MRI CERVICAL SPINE WO/W IVCO Non 07-29-2024 MRI CERVICAL SPINE WO/W IVCON * * *Final Report* * * DATE OF EXAM: Jul 29 2024 2:30PM [facility] 0298 - MRI CERVICAL SPINE WO/W IVCON [...] in the cervical, thoracic and lumbar spine Bookkeeper Assistant: PSCB Transcribe Date/Time: Jul 29 2024 3:46P Dictated by : NELSON AVALOS MD This examination was interpreted and the report reviewed and electronically signed by: NELSON AVALOS MD on Jul 29 2024 4:00PM EST [id number] Normal [facility] MRI LUMBAR SPINE WO/W IVCONo n 07-29-2024 MRI LUMBAR SPINE WO/W IVCON * * *Final Report* * * DATE OF EXAM: Jul 29 2024 2:30PM [facility] 0304 - MRI LUMBAR SPINE WO/W IVCON [...] in the cervical, thoracic and lumbar spine Bookkeeper Assistant: TRI Transcribe Date/Time: Jul 29 2024 3:46P Dictated by : NELSON AVALOS MD This examination was interpreted and the report reviewed and electronically signed by: NELSON AVALOS MD on Jul 29 2024 4:00PM EST [id number] Normal [facility] MRI PELVIS ORTHO GEN WO/W IV CONon [...] replacing lesions are identified. Hip joints: Large mxnvy-qz-gtcx images of the hips are notable for [...] 2013. 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 Bookkeeper Assistant: TRI Transcribe Date/Time: Jul 29 2024 7:44P Dictated by : ROLA MOODY MD This examination was interpreted and the report reviewed and electronically signed by: ROLA MOODY MD on Jul 29 2024 8:20PM EST [id number] Normal [facility] MRI THORACIC SPINE WO/W IVCO Non 07-29-2024 [...] in the cervical, thoracic and lumbar spine Bookkeeper Assistant: TRI Transcribe Date/Time: Jul 29 2024 3:46P Dictated by : NELSON AVALOS MD This examination was interpreted and the report reviewed and electronically signed by: NELSON AVALOS MD on Jul 29 2024 4:00PM EST [id number] Normal [facility] No Panel Informationon 07-29 IMPRESSION: No osseous changes, marrow replacement or abnormal enhancement in the cervical, thoracic and lumbar spine Bookkeeper Assistant: TRI Transcribe Date/Time: Jul 29 2024 3:46P Dictated by : NELSON VAALOS MD This examination was interpreted and the report reviewed and electronically signed by: NELSON AVALOS MD on Jul 29 2024 4:00PM EST DIVISION OF RADIOLOGY Radiology Study observation (narrative) [facility] No Panel InformationOrdered By: Ccf Provider on 07-29-2024 [facility] JAZMINE Telephone (MARS) -------- ЮЛИЯ HAYDEN ([id number]) 1955 F Date Time Provider Department 07/06/24 [...] went over results, notes from Sahra Moreno PASTRY BAKER with understanding. Allergies As of Date: 07/06/2024 [...] Discard Pen After - blood sugar diagnostic (CapptainUCH VERIO TEST STRIPS) test strip Test blood [...] (benign paroxysma (more content not included)... Normal [facility] CNCOon 07-05-2024 CNCO HNO ID: [id number] Author: COORDINATOR, MAMMOGRAPHY, ? Service: ? Author Type: Physician Type: Letter Filed: 07/05/2024 12:16 Note Text: July 05, 2024 PID: [id number] Юлия Hayden [address] [place] [address] Dear Ms. Hayden, We are pleased to inform you that [...] report will be kept on file at [facility] as part of your permanent medical record and are available for your continuing care. Thank you for allowing us to help in meeting your health care needs. Sincerely, Dr. Khan Interpreting Radiologist [facility] (Normal over 40) Normal [facility] CARLOS EDUARDO SCREENING W TOMOon 07-02 CARLOS EDUARDO SCREENING W MIGUEL * * *Final Report* * * DATE OF EXAM: Jul 02 2024 1:09PM [facility] 0582 - CARLOS EDUARDO SCREENING W MIGUEL / PROCEDURE REASON: Encounter for screening mammogram for breast cancer * * * * Physician Interpretation * * * * RESULT: #[id number] - CARLOS EDUARDO SCREENING W MIGUEL BILATERAL [...] exams dated: 03/25/2023 mammogram, 03/29/2021 mammogram - [facility], 07/02/2019 mammogram, and 03/30/2018 mammogram - [facility]. The breasts are almost entirely fatty. [...] could be performed in the future. Rachel Khan M.D., lm/alexx:07/05/2024 12:16:26 Solar Panel Installer(s): RT Reta(R)(M), [facility] letter sent: Normal over 40 Mammogram BI-RADS: [...] Health, Family Medicine, and Medical/Surgical Oncology, the [facility] has carefully reviewed the data and [...] their providers when to stop screening mammograms. Bookkeeper Assistant: Alexx Transcribe Date/Time: Jul 02 2024 12:39P Dictated by: RACHEL KHAN MD This examination was interpreted and the report reviewed and electronically signed by: RACHEL KHAN MD on Jul 05 2024 12:16PM EST [id number] Normal [facility] CNOVSPon 06-24-2024 CNOVSP Visit (SP) Office (HEMAWS) -------- ЮЛИЯ HAYDEN ([id number]) 1955 F Date Time Provider Department 06/24/24 9:50 AM CRISTHIAN CHRISTENSEN During your visit today, we recorded the [...] referral here. Had lab work done through [facility] that showed an increase in serum globulin [...] W/COLLJ SPEC WHEN PFRMD Comment: Done in [place] unable to obtain 11/17/2013: COLONOSCOPY FLX DX W/COLLJ SPEC WHEN PFRMD Comment: Colonoscopy 12/24/2017: COLONOSCOPY FLX DX W/COLLJ SPEC WHEN PFRMD Comment: Colonoscopy 06/04/2013: ESOPHAGOGASTRODUODENOSCO PY TRANSORAL DIAGNOSTIC Comment: EGD 05/17/2015: ESOPHAGOGASTRODUODENOSCO PY TRANSORAL DIAGNOSTIC Comment: EGD 12/24/2017: ESOPHAGOGASTRODUODENOSCO PY TRANSORAL DIAGNOSTIC Comment: EGD 04/12/2024: FNA (FINE NEEDLE ASPIRATION) Comment: right thyroid 1983: HYSTERECTOMY HX Comment: Pelvic pain AND DUB [...] at bed (more content not included)... Normal [facility] XR BONE SURVEY ROUTINEon XR BONE SURVEY [...] IMPRESSION: No acute fracture or lytic lesion Bookkeeper Assistant: TRI Transcribe Date/Time: Jun 29 2024 4:51P Dictated by : AYANNA ASHBY MD This examination was interpreted and the report reviewed and electronically signed by: AYANNA ASHBY MD on Jun 29 2024 5:04PM EST [id number] Normal [facility] 06-21-2024 CNPN Telephone (FAMPWS) -------- ЮЛИЯ HAYDEN ([id number]) 1955 F Date Time Provider Department 06/21/24 NO PCP FAMPWS During your visit today, we recorded the following information about you: Alicia Tidwell RN 06/21/2024 12:14 PM Signed Patient calls to schedule an appointment with Dr. Tovar for bilateral tarango pain and ankle cramping. Noted she isn't establishing until 09/01/2024. Recommended she contact Dr. Wallis's office that is listed as her current PCP. Patient reports she is unable to do that as he is no longer her PCP as he wasn't responsive to her requests. Reviewed notes patient has been having symptoms as reported in notes from Dr. Christensen. 06/02/2024. Has follow up 06/24/2024. Recommend continuing [...] iron. 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 -OV following above. Potential MRI an bone marrow biopsy pending above Please review and advise, BERE Lemon Krystle, RN 06/21/2024 12:48 PM Signed Spoke to provider's office and received recommendation to review with Dr. Christensen and if not willing to address it [...] Fully Assessed Reason for Visit: Patient Question [8787] Prescriptions as of 06/21/2024 - metFORMIN (GLUCOPHAGE) [...] Discard Pen After - blood sugar diagnostic (CapptainUCH VERIO TEST STRIPS) test strip Test blood [...] sugar diagnostic (more content not included)... Normal [facility] MONOCLONAL PROT 24 UR W/INTE RPon 06-07-2024 INTERPRETATION ([facility]) Poorly defined reg ion of restricted mobility [...] monoclonal gammopathy. Clinical correlation is necessary. Normal [facility] Comment on above: Order Comment: Speci men Type: URINE SPECIMENOrdering Facility: [facility] Address: [address] [place] [address] Performed By: #### U 24MPA ####[facility] [id number] [address] STAFF REVIEW (UMPA) Reviewed by Ileana Marina M.D. Normal [facility] Comment on above: Order Comment: Speci men Type: URINE SPECIMENOrdering Facility: [facility] Address: [address] [place] [address] Performed By: #### U 24MPA ####[facility] [id number] [address] [place] UMPA RESULT A poorly defined reg ion of restricted mobility is present that may represent an M protein. Abnormal No M protein is identified. [facility] Comment on above: Order Comment: Speci men Type: URINE SPECIMENOrdering Facility: [facility] Address: [address] [place] [address] Performed By: #### U 24MPA ####[facility] [id number] [place] [address] [place] PROT ELEC UR 24HR W/M SPIKE (P)on 06-07-2024 Albumin/Globulin Elph (24H U) [Mass ratio] 44.90 % Normal [facility] Comment on above: Order Comment: Speci men Type: URINE SPECIMENOrdering Facility: [facility] Address: [address] [place] [address] Performed By: #### L [id number] ####[facility] [id number] [place] [address] [place] Alpha 1 globulin Elph (24H U) [Mass fraction] 4.12 % Normal [facility] Comment on above: Order Comment: Speci men Type: URINE SPECIMENOrdering Facility: [facility] Address: [address] [place] [address] Performed By: #### L [id number] ####[facility] LABCLIA [id number] [place] [address] [place] Alpha 2 globulin Elph (24H U) [Mass fraction] 19.19 % Normal [facility] Comment on above: Order Comment: Speci men Type: URINE SPECIMENOrdering Facility: [facility] Address: [address] [place] [address] Performed By: #### L [id number] ####[facility] LABCLIA [id number] [address] [place] Beta globulin Elph (24H U) [Mass fraction] 15.41 % Normal [facility] Comment on above: Order Comment: Speci men Type: URINE SPECIMENOrdering Facility: [facility] Address: [address] [place] [address] Performed By: #### L [id number] ####[facility] LABCLIA [id number] [place] [address] [place] Gamma globulin Elph (24H U) [Mass fraction] 16.37 % Normal [facility] Comment on above: Order Comment: Speci men Type: URINE SPECIMENOrdering Facility: [facility] Address: [address] [place] [address] Performed By: #### L [id number] ####[facility] LABCLIA [id number] [place] [address] [place] INTERPRETATION COMMENT FOR PROTEIN ELECTROPHORESIS The atypical region is relatively poorly defined and may represent an unusual presentation of polyclonal immunoglobulins, but cannot rule out the presence of a low level M protein. If clinically indicated, monoclonal protein analysis and serum free light chain analysis are suggested to evaluate further for monoclonal gammopathy. Normal [facility] Comment on above: Order Comment: Speci men Type: URINE SPECIMENOrdering Facility: [facility] Address: [address] [place] [address] Performed By: #### L [id number] ####[facility] LABCLIA [id number] [place] [address] [place] Protein Fractions Elph Helder (24H U) [Interp] No definitive M protein is identified on protein electrophoresis. Normal No definitive M protein is identified on protein electrophor esis. [facility] Comment on above: Order Comment: Speci men Type: URINE SPECIMENOrdering Facility: [facility] Address: [address] [place] [address] Performed By: #### L [id number] ####[facility] [id number] [place] [address] [place] Protein.monoclonal Elph (24H U) [Mass/Time] 0.00 g/24hr Normal [facility] Comment on above: Order Comment: Speci men Type: URINE SPECIMENOrdering Facility: [facility] Address: [address] [place] [address] Performed By: #### L [id number] ####[facility] [id number] [place] [address] [place] STAFF REVIEW (UEPG24) Reviewed by Ileana Marina M.D. Normal [facility] Comment on above: Order Comment: Speci men Type: URINE SPECIMENOrdering Facility: [facility] Address: [address] [place] [address] Performed By: #### L [id number] ####[facility] [id number] [place] [address] [place] Prot 24h Ur-mRateon 06-07-20 24 Protein (24H U) [Mass/Time] 0.38 g/24 Hr High <0.15 [facility] Comment on above: Order Comment: Speci men Type: URINE SPECIMENOrdering Facility: [facility] Address: [address] [place] [address] Result Comment: Adul t Proteinuria Categories: <0.15 g/24 hours is considered normal to mildly increased 0.15 - 0.50 g/24 hours is considered moderately increased >0.50 g/24 hours is considered severely increased KDIGO. (2013). KDIGO 2012 Clinical Practice Guideline for the Evaluation and Management of Chronic Kidney Disease. Official Journal of the International Society of Nephrology, 3(1), 1-150. Performed By: #### 2 889-4 ####[facility] LABCLIA [id number] [id number] [place] [address] [place] Protein (24H U) [Mass/Time]o n 06-07-2024 PERIOD (HRS) 24 hr Normal [facility] Comment on above: Order Comment: Speci men Type: URINE SPECIMENOrdering Facility: [facility] Address: [address] [place] [address] Performed By: #### 2 889-4 ####[facility] LABCL[facility] [id number] [address] [id number] [address] [place] Specimen volume (24H U) 3.2 L Normal [facility] Comment on above: Order Comment: Speci men Type: URINE SPECIMENOrdering Facility: [facility] Address: [address] [place] [address] Performed By: #### 2 889-4 ####[facility] LABCLIA [id number] [address] [id number] [address] STATES OF [facility] 06-[facility]2024 [facility] Telephone (HEMAWS) -------- ЮЛИЯ HAYDEN ([id number]) 1955 F Date Time Provider Department 06/06/24 CRISTHIAN CHRISTENSEN During your visit today, we recorded the following information about you: Crsithian Christensen DO 06/06/2024 3:49 PM Signed Can let [...] to be sure it wasn't forgotten. Cristhian Christensen DO Allergies As of Date: 06/06/2024 Noted [...] 12/09/2012 Maribel (more content not included)... Normal [facility] B2 Microglob SerPl-mCncon Fplq-0-Wpnbrvwbdqpgb [Mass/Vol] 2.3 ug/mL Normal <3.1 [facility] Comment on above: Order Comment: Speci men Type: BLOOD SPECIMENOrdering Facility: [facility] Address: [address] [place] [address] Result Comment: Beta -2 Microglobulin test is performed using the [employer] immunoturbidimetric method. Results obtained with different methods or kits cannot be used interchangeably. Performed By: #### 2 276-4, 1952-1, 2885-2, 82946-8 ####[facility] LABCL[facility] [id number] [place] [address] [place] CBC W Auto Differential pane l (Bld)on 06-02-2024 Basophils (Bld) [#/Vol] 0.04 10*3/uL [facility] Basophils/100 WBC (Bld) 0.5 % C [facility] Differential cell count method Nom (Bld) Auto [facility] Eosinophils (Bld) [#/Vol] 0.11 10*3/uL [facility] Eosinophils/100 WBC (Bld) 1.5 % [facility] Erythrocyte distribution width (RBC) [Ratio] 13.3 % 11.5 - 15.0 % [facility] Hematocrit (Bld) [Volume fraction] 36.1 % 36.0 - 46.0 % [facility] Hemoglobin (Bld) [Mass/Vol] 11.9 g/dL 11.5 - 15.5 g/dL [facility] Immature granulocytes (Bld) [#/Vol] [facility] Immature granulocytes/100 WBC (Bld) 0.1 % [facility] Lymphocytes (Bld) [#/Vol] 3.34 10*3/uL [facility] Lymphocytes/100 WBC (Bld) 45.1 % [facility] MCH (RBC) [Entitic mass] 29.0 pg 26. 0 - 34.0 pg [facility] MCHC (RBC) [Mass/Vol] 33.0 g/dL 30.5 - 36.0 g/dL [facility] MCV (RBC) [Entitic vol] 88.0 fL 80.0 - 100.0 fL [facility] Monocytes (Bld) [#/Vol] 0.40 10*3/uL [facility] Monocytes/100 WBC (Bld) 5.4 % C [facility] Neutrophils (Bld) [#/Vol] 3.50 10*3/uL [facility] Neutrophils/100 WBC (Bld) 47.4 % [facility] Nucleated RBC (Bld) [#/Vol] NINF [facility] Nucleated RBC/100 WBC (Bld) [Ratio] 0.0 % /100 WBC [facility] Platelet mean volume (Bld) [Entitic vol] 9.7 fL 9.0 - 12.7 fL [facility] Platelets (Bld) [#/Vol] 232 10*3/uL [facility] RBC (Bld) [#/Vol] 4.10 10*6/uL 3.90 - 5.2 0 m/uL [facility] WBC (Bld) [#/Vol] 7.40 10*3/uL [facility] Basophils (Bld) [#/Vol] 0.04 10*3/uL Normal <0.11 [facility] Comment on above: Order Comment: Speci men Type: BLOOD SPECIMENOrdering Facility: [facility] Address: [address] [place] [address] Performed By: #### 5 7021-8 ####[facility] [id number] [place] [address] [place] Basophils/100 WBC (Bld) 0.5 % Normal [facility] Comment on above: Order Comment: Speci men Type: BLOOD SPECIMENOrdering Facility: [facility] Address: [address] [place] [address] Performed By: #### 5 7021-8 ####[facility] [id number] [place] [address] [place] Differential cell count method Nom (Bld) Auto Normal [facility] Comment on above: Order Comment: Speci men Type: BLOOD SPECIMENOrdering Facility: [facility] Address: [address] [place] [address] Performed By: #### 5 7021-8 ####[facility] [id number] [place] [address] [place] Eosinophils (Bld) [#/Vol] 0.11 10*3/uL Normal <0.46 [facility] Comment on above: Order Comment: Speci men Type: BLOOD SPECIMENOrdering Facility: [facility] Address: [address] [place] [address] Performed By: #### 5 7021-8 ####[facility] [id number] [place] [address] [place] Eosinophils/100 WBC (Bld) 1.5 % Normal [facility] Comment on above: Order Comment: Speci men Type: BLOOD SPECIMENOrdering Facility: [facility] Address: [address] [place] [address] Performed By: #### 5 7021-8 ####[facility] [id number] [place] [address] [place] Erythrocyte distribution width (RBC) [Ratio] 13.3 % Normal 11.5-15.0 [facility] Comment on above: Order Comment: Speci men Type: BLOOD SPECIMENOrdering Facility: [facility] Address: [address] [place] [address] Performed By: #### 5 7021-8 ####[facility] [id number] [place] [address] [place] Hematocrit (Bld) [Volume fraction] 36.1 % Normal 36.0-46.0 [facility] Comment on above: Order Comment: Speci men Type: BLOOD SPECIMENOrdering Facility: [facility] Address: [address] [place] [address] Performed By: #### 5 7021-8 ####[facility] [id number] [place] [address] [place] Hemoglobin (Bld) [Mass/Vol] 11.9 g/dL Normal 11.5-15.5 [facility] Comment on above: Order Comment: Speci men Type: BLOOD SPECIMENOrdering Facility: [facility] Address: [address] [place] [address] Performed By: #### 5 7021-8 ####[facility] ISSACA [id number] [place] [address] [place] Immature granulocytes (Bld) [#/Vol] 10*3/uL Normal <0.10 [facility] Comment on above: Order Comment: Speci men Type: BLOOD SPECIMENOrdering Facility: [facility] Address: [address] [place] [address] Performed By: #### 5 7021-8 ####[facility] MIRAMARGABBYCARLOSA [id number] [place] [address] [place] Immature granulocytes/100 WBC (Bld) 0.1 % Normal [facility] Comment on above: Order Comment: Speci men Type: BLOOD SPECIMENOrdering Facility: [facility] Address: [address] [place] [address] Performed By: #### 5 7021-8 ####[facility] MIRAMARA [id number] [place] [address] [place] Lymphocytes (Bld) [#/Vol] 3.34 10*3/uL Normal 1.00-4.00 [facility] Comment on above: Order Comment: Speci men Type: BLOOD SPECIMENOrdering Facility: [facility] Address: [address] [place] [address] Performed By: #### 5 7021-8 ####[facility] MIRAMARNCLIA [id number] [place] [address] [place] Lymphocytes/100 WBC (Bld) 45.1 % Normal [facility] Comment on above: Order Comment: Speci men Type: BLOOD SPECIMENOrdering Facility: [facility] Address: [address] [place] [address] Performed By: #### 5 7021-8 ####[facility] MIRAMARNCLIA [id number] [place] [address] [place] MCH (RBC) [Entitic mass] 29.0 pg Normal 26.0-34.0 [facility] Comment on above: Order Comment: Speci men Type: BLOOD SPECIMENOrdering Facility: [facility] Address: [address] [place] [address] Performed By: #### 5 7021-8 ####[facility] [id number] [place] [address] [place] MCHC (RBC) [Mass/Vol] 33.0 g/dL Normal 30.5-36.0 [facility] Comment on above: Order Comment: Speci men Type: BLOOD SPECIMENOrdering Facility: [facility] Address: [address] [place] [address] Performed By: #### 5 7021-8 ####[facility] [id number] [place] [address] [place] MCV (RBC) [Entitic vol] 88.0 fL Normal 80.0-100.0 [facility] Comment on above: Order Comment: Speci men Type: BLOOD SPECIMENOrdering Facility: [facility] Address: [address] [place] [address] Performed By: #### 5 7021-8 ####[facility] [id number] [place] [address] [place] [facility] [place] Monocytes (Bld) [#/Vol] 0.40 10*3/uL Normal <0.87 [facility] Comment on above: Order Comment: Speci men Type: BLOOD SPECIMENOrdering Facility: [facility] Address: [address] [place] [address] Performed By: #### 5 7021-8 ####[facility] [id number] [place] [address] [place] Monocytes/100 WBC (Bld) 5.4 % Normal [facility] Comment on above: Order Comment: Speci men Type: BLOOD SPECIMENOrdering Facility: [facility] Address: [address] [place] [address] Performed By: #### 5 7021-8 ####[facility]ENTERLIA [id number] [place] [address] [place] Neutrophils (Bld) [#/Vol] 3.50 10*3/uL Normal 1.45-7.50 [facility] Comment on above: Order Comment: Speci men Type: BLOOD SPECIMENOrdering Facility: [facility] Address: [address] [place] [address] Performed By: #### 5 7021-8 ####[facility] MIRAMARA [id number] [place] [address] [place] Neutrophils/100 WBC (Bld) 47.4 % Normal [facility] Comment on above: Order Comment: Speci men Type: BLOOD SPECIMENOrdering Facility: [facility] Address: [address] [place] [address] Performed By: #### 5 7021-8 ####[facility] [id number] [place] [address] [place] Nucleated RBC (Bld) [#/Vol] 10*3/uL Normal <0.01 [facility] Comment on above: Order Comment: Speci men Type: BLOOD SPECIMENOrdering Facility: [facility] Address: [address] [place] [address] Performed By: #### 5 7021-8 ####[facility] CENTERLIA [id number] [place] [address] [place] Nucleated RBC/100 WBC (Bld) [Ratio] 0.0 /100 WBC Normal [facility] Comment on above: Order Comment: Speci men Type: BLOOD SPECIMENOrdering Facility: [facility] Address: [address] [place] [address] Performed By: #### 5 7021-8 ####[facility] ADRIEL [id number] [place] [address] [place] Platelet mean volume (Bld) [Entitic vol] 9.7 fL Normal 9.0-12.7 [facility] Comment on above: Order Comment: Speci men Type: BLOOD SPECIMENOrdering Facility: [facility] Address: [address] [place] [address] Performed By: #### 5 7021-8 ####[facility] MIRAMARGABBYNathan [id number] [place] [address] [place] Platelets (Bld) [#/Vol] 232 10*3/uL Normal 150-400 [facility] Comment on above: Order Comment: Speci men Type: BLOOD SPECIMENOrdering Facility: [facility] Address: [address] [place] [address] Performed By: #### 5 7021-8 ####[facility] MIRAMARNCCARLOSA [id number] [place] [address] [place] RBC (Bld) [#/Vol] 4.10 10*6/uL Normal 3.90-5.20 [facility] Comment on above: Order Comment: Speci men Type: BLOOD SPECIMENOrdering Facility: [facility] Address: [address] [place] [address] Performed By: #### 5 7021-8 ####[facility] MIRAMARNCLIA [id number] [place] [address] [place] WBC (Bld) [#/Vol] 7.40 10*3/uL Normal 3.70-11.00 [facility] Comment on above: Order Comment: Speci men Type: BLOOD SPECIMENOrdering Facility: [facility] Address: [address] [place], [place] [address], [place] [address] Performed By: #### 5 7021-8 ####[facility] KEVIN MOREL [id number] [place] [address] [place] CNOVSPon 06-02-2024 CNOVSP Visit (SP) Office (HEMAWS) -------- ЮЛИЯ HAYDEN ([id number]) 1955 F Date Time Provider Department 06/02/24 8:50 AM CRISTHIAN CHRISTENSEN During your visit today, we recorded the following information about you: Temperature Pulse Blood pressure Weight 97.9 degrees 76/minute 124/76 63.5 kg Height 1.56 m Cristhian Christensen DO 06/02/2024 9:52 AM Signed Portions of [...] mellitus (HCC) Diverticulitis Dysphagia Emphysema of lung ([facility]) 05/15/2015 Essential hypertension 08/07/2022 GI bleed History of squamous cell carcinoma 04/2016 Right nasal tip Hyperlipidemia Lung nodules PAD (peripheral artery disease) ([facility]) 03/10/2017 02/06/2022 PVR ank/jackson/toe bilat: RIGHT SIDE JITENDRA: 1.19; TBI: 0.84, WNL at rest LEFT SIDE: JITENDRA: 1.19; TBI: 0.96, WNL at rest Pulmonary HTN ([facility]) 12/08/2017 mild Squamous cell skin cancer, nasal tip 06/24/2016 Tobacco abuse 03/28/2017 PAST SURGICAL HISTORY Procedure Laterality Date ADDTL NECK SPINE FUSION 09/2004 CHOLECYSTECTOMY 2000 COLONOSCOPY 1982 COLONOSCOPY FLX DX W/COLLJ SPEC WHEN PFRMD 09/01/2012 COLONOSCOPY FLX DX W/COLLJ SPEC WHEN PFRMD Done in [place] unable to obtain COLONOSCOPY FLX DX W/COLLJ [...] daily. montelukast (more content not included)... Normal [facility] Comprehensive metabolic 2000 panelOrdered By: Addie Ruano on 06-02-2024 Albumin [Mass/Vol] 4.8 g/dL 3.9 - 4.9 g/dL [facility] ALP [Catalytic activity/Vol] 29 U/L Low 34 - 123 U/L [facility] ALT [Catalytic activity/Vol] 19 U/L 7 - 38 U/L [facility] Anion gap [Moles/Vol] 12 mmol/L 8 - 15 mmol/L [facility] AST [Catalytic activity/Vol] 21 U/L 13 - 35 U/L [facility] Bilirubin [Mass/Vol] 0.3 mg/dL 0.2 - 1 .3 mg/dL [facility] Calcium [Mass/Vol] 9.8 mg/dL 8.5 - 10. 2 mg/dL [facility] Chloride [Moles/Vol] 99 mmol/L 98 - 10 7 mmol/L [facility] CO2 [Moles/Vol] 24 mmol/L 22 - 30 mmol/L [facility] Creatinine [Mass/Vol] 0.76 mg/dL 0.58 - 0.96 mg/dL [facility] GFR/1.73 sq M.predicted among non-blacks MDRD (S/P/Bld) [Vol rate/Area] 87 mL/min/{1.73_m2} - PINF [facility] Comment on above: Estimated Glomerular Filtration [...] 132 mg/dL High 74 - 99 mg/dL [facility] Comment on above: The [place] Diabete s Association (ADA) provides guidance for [...] Standards of Medical Care in Diabetes 2016, [place] [employer]. Diabetes Care. 2016.39(Suppl 1). Interpretation and review of laboratory results Abnormal [facility] Potassium [Moles/Vol] 3.9 mmol/L 3.7 - 5.1 mmol/L [facility] Protein [Mass/Vol] 7.9 g/dL 6.3 - 8.0 g/dL [facility] Sodium [Moles/Vol] 135 mmol/L Low 136 - 144 mmol/L [facility] Urea nitrogen [Mass/Vol] 8 mg/dL 7 - 21 mg/dL [facility] Comprehensive metabolic 2000 panelon 06-02-2024 Albumin [Mass/Vol] 4.8 g/dL Normal 3.9-4.9 [facility] Comment on above: Order Comment: Speci men Type: BLOOD SPECIMENOrdering Facility: [facility] Address: [address] [place] [address] Performed By: #### 3 084-1, 98757-6, 2531-0 ####[facility] KEVIN CHANDRAWNCLIA [id number] [place] [address] [place] ALP [Catalytic activity/Vol] 29 U/L Low 34-123 [facility] Comment on above: Order Comment: Speci men Type: BLOOD SPECIMENOrdering Facility: [facility] Address: [address] [place] [address] Performed By: #### 3 084-1, 35491-2, 2531-0 ####[facility]ITALWNCLIA [id number] [place] [address] [place] ALT [Catalytic activity/Vol] 19 U/L Normal 7-38 [facility] Comment on above: Order Comment: Speci men Type: BLOOD SPECIMENOrdering Facility: [facility] Address: [address] [place] [address] Performed By: #### 3 084-1, 38245-9, 2531-0 ####[facility]ITALWNCLIA [id number] [place] [address] [place] Anion gap [Moles/Vol] 12 mmol/L Normal 8-15 [facility] Comment on above: Order Comment: Speci men Type: BLOOD SPECIMENOrdering Facility: [facility] Address: [address] [place] [address] Performed By: #### 3 084-1, 98983-0, 2531-0 ####[facility]ITALWNCLIA [id number] [place] [address] [place] AST [Catalytic activity/Vol] 21 U/L Normal 13-35 [facility] Comment on above: Order Comment: Speci men Type: BLOOD SPECIMENOrdering Facility: [facility] Address: [address] [place], [place] [address] Performed By: #### 3 084-1, 83714-9, 2531-0 ####[facility] ELDERRAJINDERA [id number] [place] [address] [place] Bilirubin [Mass/Vol] 0.3 mg/dL Normal 0.2-1.3 [facility] Comment on above: Order Comment: Speci men Type: BLOOD SPECIMENOrdering Facility: [facility] Address: [address] [place], [place] [address] Performed By: #### 3 084-1, 26947-9, 2531-0 ####[facility] MARGUERITEMALICK [id number] [place] [address] [place] Calcium [Mass/Vol] 9.8 mg/dL Normal 8.5-10.2 [facility] Comment on above: Order Comment: Speci men Type: BLOOD SPECIMENOrdering Facility: [facility] Address: [address] [place] [address] Performed By: #### 3 084-1, 95803-9, 2531-0 ####[facility] MARGUERITEMILTONRAJINDERA [id number] [place] [address] [place] Chloride [Moles/Vol] 99 mmol/L Normal 98-107 [facility] Comment on above: Order Comment: Speci men Type: BLOOD SPECIMENOrdering Facility: [facility] Address: [address] [place], [place] [address] Performed By: #### 3 084-1, 26979-9, 2531-0 ####[facility] MARGUERITEMILTONRAJINDERA [id number] [place] [address] [place] CO2 [Moles/Vol] 24 mmol/L Normal 22-30 [facility] Comment on above: Order Comment: Speci men Type: BLOOD SPECIMENOrdering Facility: [facility] Address: [address] [place] [address] Performed By: #### 3 084-1, 87210-9, 2531-0 ####[facility] MIRAMARNCLIA [id number] [place] [address] [place] Creatinine [Mass/Vol] 0.76 mg/dL Normal 0.58-0.96 [facility] Comment on above: Order Comment: Giovana alejandre Type: BLOOD SPECIMENOrdering Facility: [facility] Address: [address] [place] [address] Performed By: #### 3 084-1, 23416-9, 2531-0 ####[facility] [id number] [place] [address] [place] Creatinine and Glomerular filtration rate.predicted panel (S/P/Bld) 87 mL/min/1.73m??? Normal >=60 [facility] Comment on above: Order Comment: Giovana alejandre Type: BLOOD SPECIMENOrdering Facility: [facility] Address: [address] [place] [address] Result Comment: Amna mated Glomerular Filtration Rate [...] actual GFR. Performed By: #### 3 084-1, 31500-3, 2531-0 ####[facility] MIRAMARNCLIA [id number] [place] [address] [place] Glucose [Mass/Vol] 132 mg/dL High 74-99 [facility] Comment on above: Order Comment: Giovana alejandre Type: BLOOD SPECIMENOrdering Facility: [facility] Address: [address] [place] [address] Result Comment: The [place] Diabetes Association (ADA) provides guidance for cutoff [...] Standards of Medical Care in Diabetes 2016, [place] [employer] Association. Diabetes Care. 2016.39(Suppl 1). Performed By: #### 3 084-1, 95740-8, 2531-0 ####[facility]OS[facility]ITALGERARDO [id number] [place] [address] [place] Potassium [Moles/Vol] 3.9 mmol/L Normal 3.7-5.1 [facility] Comment on above: Order Comment: Speci men Type: BLOOD SPECIMENOrdering Facility: [facility] Address: [address] [place] [address] Performed By: #### 3 084-1, 08174-7, 0 ####[facility] MIRAMARJIMENA [id number] [place] [address] [place] Protein [Mass/Vol] 7.9 g/dL Normal 6.3-8.0 [facility] Comment on above: Order Comment: Speci men Type: BLOOD SPECIMENOrdering Facility: [facility] Address: [address] [place], [place] [address] Performed By: #### 3 084-1, 47982-7, 0 ####[facility] MIRAMARRAJINDERA [id number] [place] [address] [place] Sodium [Moles/Vol] 135 mmol/L Low 136-144 [facility] Comment on above: Order Comment: Speci men Type: BLOOD SPECIMENOrdering Facility: [facility] Address: [address] [place] [address] Performed By: #### 3 084-1, 24328-8, 2532-0 ####[facility] MARGUERITEMILTONNCCARLOSA [id number] [place] [address] [place] Urea nitrogen [Mass/Vol] 8 mg/dL Normal 7-21 [facility] Comment on above: Order Comment: Speci men Type: BLOOD SPECIMENOrdering Facility: [facility] Address: [address] [place] [address] Performed By: #### 3 084-1, 12838-7, 2532-0 ####[facility] MIRAMARNCCARLOSA [id number] [place] [address] [place] Ferritin SerPl-mCncon 2023 Ferritin [Mass/Vol] 19.9 ng/mL Normal 14.7-205.1 [facility] Comment on above: Order Comment: Speci men Type: BLOOD SPECIMENOrdering Facility: [facility] Address: [address] [place] [address] Performed By: #### 2 276-4, 1952-1, 2885-2, 14746-8 ####[facility] LABCLIA [id number] [facility] [place] [id number] [place] IMMUNOFIXATION SCREEN, SERUM [...] monoclonal gammopathy. Clinical correlation is necessary. Normal [facility] Comment on above: Order Comment: Speci men Type: BLOOD SPECIMENOrdering Facility: [facility] Address: [address] [place] [address] Performed By: #### I [facility] ####[facility] LABCLIA [id number] [address] STATES [facility] MPA RESULT A poorly defined reg ion of restricted mobility is present that may represent an M protein. Abnormal No M protein is identified. [facility] Comment on above: Order Comment: Speci men Type: BLOOD SPECIMENOrdering Facility: [facility] Address: [address] [place] [address] Performed By: #### I FESC ####[facility] LABIA [id number] [address] STAFF REVIEW (MPA) Reviewed by Malachi Byrne MD, Ph.D ([id number]) Normal [facility] Comment on above: Order Comment: Speci men Type: BLOOD SPECIMENOrdering Facility: [facility] Address: [address] [place] [address] Performed By: #### I FES ####[facility] LABIA [id number] [place] [address] [place] IMMUNOGLOBULINS,IGG,IGA,IGMo n 06-02-2024 IgA [Mass/Vol] 279 mg/dL Normal 70-400 [facility] Comment on above: Order Comment: Speci men Type: BLOOD SPECIMENOrdering Facility: [facility] Address: [address] [place] [address] Performed By: #### S ERIMM ####[facility] LABIA [id number] [place] [address] [place] IgG [Mass/Vol] 1624 mg/dL High 700-1600 [facility] Comment on above: Order Comment: Speci men Type: BLOOD SPECIMENOrdering Facility: [facility] Address: [address] [place] [address] Performed By: #### S ERIMM ####[facility] LABCLIA [id number] [place] [address] [place] IgM [Mass/Vol] 139 mg/dL Normal 40-230 [facility] Comment on above: Order Comment: Speci men Type: BLOOD SPECIMENOrdering Facility: [facility] Address: [address] [place] [address] Performed By: #### S MATTIEM ####[facility] LABIA [id number] [place] [address] [place] Iron and Iron binding capaci ty panelon 06-02-2024 Iron [Mass/Vol] 64 ug/dL Normal 41-186 [facility] Comment on above: Order Comment: Speci men Type: BLOOD SPECIMENOrdering Facility: [facility] Address: [address] [place] [address] Performed By: #### 2 276-4, 1951-11, 2884-12, 07597-0 ####[facility] LABIA [id number] [place] [address] [place] Iron binding capacity [Mass/Vol] 365 ug/dL Normal 232-386 [facility] Comment on above: Order Comment: Speci men Type: BLOOD SPECIMENOrdering Facility: [facility] Address: [address] [place] [address] Performed By: #### 2 276-4, 1949-11, 2884-12, 02269-6 ####[facility] LABIA [id number] [place] [address] [place] Iron/TIBC [Molar ratio] 17.5 % Normal 15.0-57.0 [facility] Comment on above: Order Comment: Speci men Type: BLOOD SPECIMENOrdering Facility: [facility] Address: [address] [place] [address] Performed By: #### 2 276-4, 1949-11, 2884-12, 47314-1 ####[facility] LABIA [id number] [place] [id number] [place] KAPPA/DEJESUS,FREE,SERon 2023 Immunoglobulin light chains.kappa.free (S) [Mass/Vol] 39.2 mg/L High 3.3-19.4 [facility] Comment on above: Order Comment: Speci men Type: BLOOD SPECIMENOrdering Facility: [facility] Address: [address] [place] [address] Result Comment: Rare ly, increased serum free light chains levels may not be detected or accurately quantified due to prozone phenomenon or in high viscosity samples using this immunoturbidimetric assay. Correlation with other laboratory results and clinical findings is recommended. The Vamo Free Light Chain was performed using the Binding Site Optilite immunoturbidimetric method. Result obtained with different assay methods or kits cannot be used interchangeably. Performed By: #### K LFRS ####[facility] LABCLIA [id number] [place] [address] [place] Immunoglobulin light chains.kappa/Immunoglobu belle light chains.lambda (S) [Mass ratio] 1.91 High 0.26-1.65 [facility] Comment on above: Order Comment: Speci men Type: BLOOD SPECIMENOrdering Facility: [facility] Address: [address] [place] [address] Performed By: #### K LFRS ####[facility] LABCLIA [id number] [place] [address] [place] Immunoglobulin light chains.lambda.free [Mass/Vol] 20.5 mg/L Normal 5.7-26.3 [facility] Comment on above: Order Comment: Speci men Type: BLOOD SPECIMENOrdering Facility: [facility] Address: [address] [place] [address] Result Comment: Rare ly, increased serum free [...] used interchangeably. Performed By: #### K LFRS ####[facility] LABCLIA [id number] [place] [address] [place] LACTATE DEHYDROGENASEon 05-11 LDH [Catalytic activity/Vol] 163 U/L 135 - 214 U/L [facility] LDH SerPl-cCncon 06-02-2024 LDH [Catalytic activity/Vol] 163 U/L Normal 135-214 [facility] Comment on above: Order Comment: Speci men Type: BLOOD SPECIMENOrdering Facility: [facility] Address: [address] [place] [address] Performed By: #### 3 084-1, 76630-3, 2532-0 ####[facility] KEVIN [facility]EN[facility] [id number] [place] [address] [place] No Panel Informationon 06-02 Interpretation and review of laboratory results Normal [facility] No Panel InformationOrdered By: Addie Ruano on 06-02-2024 [facility] PROTEIN ELECTROPHORESIS SERU M (P)on 06-02-2024 Albumin [Mass/Vol] 4.78 g/dL Normal 3.43-5.41 [facility] Comment on above: Order Comment: Speci men Type: BLOOD SPECIMENOrdering Facility: [facility] Address: [address] [place] [address] Performed By: #### L [id number] ####[facility] LABCLIA [id number] [place] [address] [place] Alpha 1 globulin Elph [Mass/Vol] 0.29 g/dL Normal 0.18-0.43 [facility] Comment on above: Order Comment: Speci men Type: BLOOD SPECIMENOrdering Facility: [facility] Address: [address] [place] [address] Performed By: #### L [id number] ####[facility] LABCLIA [id number] [place] [address] [place] Alpha 2 globulin Elph [Mass/Vol] 0.78 g/dL Normal 0.42-0.98 [facility] Comment on above: Order Comment: Speci men Type: BLOOD SPECIMENOrdering Facility: [facility] Address: [address] [place] [address] Performed By: #### L [id number] ####[facility] LABCLIA [id number] [place] [address] [place] Beta globulin Elph [Mass/Vol] 0.95 g/dL Normal 0.61-1.17 [facility] Comment on above: Order Comment: Speci men Type: BLOOD SPECIMENOrdering Facility: [facility] Address: [address] [place] [address] Performed By: #### L [id number] ####[facility] LABIA [id number] [place] [address] [place] Gamma globulin Elph [Mass/Vol] 1.50 g/dL Normal 0.53-1.51 [facility] Comment on above: Order Comment: Speci men Type: BLOOD SPECIMENOrdering Facility: [facility] Address: [address] [place] [address] Performed By: #### L [id number] ####[facility] LABIA [id number] [place] [address] [place] INTERPRETATION COMMENT FOR PROTEIN ELECTROPHORESIS The atypical region is relatively poorly defined and may represent an unusual presentation of polyclonal immunoglobulins, but cannot rule out the presence of a low level M protein. If clinically indicated, monoclonal protein analysis and serum free light chain analysis are suggested to evaluate further for monoclonal gammopathy. Normal [facility] Comment on above: Order Comment: Speci men Type: BLOOD SPECIMENOrdering Facility: [facility] Address: [address] [place] [address] Performed By: #### L [id number] ####[facility] LABIA [id number] [place] [address] [place] M-PROTEIN LOCATION Normal [facility] Comment on above: Order Comment: Speci men Type: BLOOD SPECIMENOrdering Facility: [facility] Address: [address] [place] [address] Result Comment: Not Applicable. Performed By: #### L [id number] ####[facility] LABIA [id number] [place] [address] [place] Protein Fractions [Interp] An atypical region of restricted mobility is identified on protein electrophoresis. Abnormal No definitive M protein is identified on protein electrophor esis. [facility] Comment on above: Order Comment: Speci men Type: BLOOD SPECIMENOrdering Facility: [facility] Address: [address] [place] [address] Performed By: #### L [id number] ####[facility] LABIA [id number] [place] [address] [place] Protein.monoclonal Elph [Mass/Vol] 0.00 g/dL Normal <=0.00 [facility] Comment on above: Order Comment: Speci men Type: BLOOD SPECIMENOrdering Facility: [facility] Address: [address] [place] [address] Performed By: #### L [id number] ####[facility] [id number] [place] [address] [place] SPE STAFF REVIEW Reviewed by Malachi Byrne MD, Ph.D ([id number]) Normal [facility] Comment on above: Order Comment: Speci men Type: BLOOD SPECIMENOrdering Facility: [facility] Address: [address] [place] [address] Performed By: #### L [id number] ####[facility] LABIA [id number] [place] [id number] [place] Prot SerPl-mCncon 06-02-2024 Protein [Mass/Vol] 8.3 g/dL High 6.3-8.0 [facility] Comment on above: Order Comment: Speci men Type: BLOOD SPECIMENOrdering Facility: [facility] Address: [address] [place] [address] Performed By: #### 2 276-4, 1952-1, 2885-2, 06699-0 ####[facility] LABCLIA [id number] [facility] [id number] [id number] [place] SERUM VISCOSITYon 06-02-2024 VISCOSITY, SERUM 1.21 cP Normal <=1.50 [facility] Comment on above: Order Comment: Giovana alejandre Type: BLOOD SPECIMENOrdering Facility: [facility] Address: [address] [place] [address] Result Comment: INTE RPRETIVE INFORMATION: Viscosity, Serum Increased viscosity is associated with disorders such as monoclonal gammopathy, macroglobulinemia, and multiple myeloma. Significantly elevated viscosity (>3.0 cP) is associated with clinical symptoms of hyperviscosity syndrome. This test was developed and its performance characteristics determined by [employer]. It has not been cleared or approved by the [place] Food and Drug Administration. This test was performed in a CLIA certified laboratory and is intended for clinical purposes. Performed By: [place] [address] Truck Leasing Manager: Damien Rodrigues MD, PhD [place] Number: [id number] Performed By: #### S ERVIS ####[facility] [id number] [place] [address] URIC ACIDon 06-02-2024 Urate [Mass/Vol] 5.4 mg/dL 2.5 - 6.6 mg/dL [facility] Urate SerPl-mCncon Urate [Mass/Vol] 5.4 mg/dL Normal 2.5-6.6 [facility] Comment on above: Order Comment: Hyacinthi men Type: BLOOD SPECIMENOrdering Facility: [facility] Address: [address] [place] [address] Performed By: #### 3 084-1, 17376-8, 2532-0 ####[facility] [id number] [place] [id number] [place] CNPCristy 06-01-2024 CNPN Telephone (HEMAWS) -------- ЮЛИЯ HAYDEN Matt ([id number]) 1955 F Date Time Provider Department 06/01/24 CRISTHIAN CHRISTENSEN During your visit today, we recorded the following information about you: Monika Vila 06/01/2024 8:38 AM Signed Lvm for patient to call back. 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 Normal [facility] CNOVon 04-21-2024 CNOV Office Visit (GENSWS ) -------- ЮЛИЯ HAYDEN ([id number]) 1955 F Date Time Provider Department 04/21/24 2:00 PM PELON SKINNER During your visit today, we recorded the following information about you: Temperature Pulse Respiration Blood pressure 98 degrees 90/minute 14/minute 102/62 Weight Height 65.6 kg 1.575 m Pelon Skinner MD 04/21/2024 3:33 PM Signed Subjective: Patient [...] need to be performed. Referring Provider: PELON SKINNER [[id number]] Allergies As of Date: 04/21/2024 Noted Allergy [...] of uncertai (more content not included)... Normal [facility] THYROID BIOPSY RIGHT (POC ) SURG USE ONLYon 04-12-2024 [facility] CRPHSon 02-10-2024 CRP, High Sensitive 0.51 mg/L Normal 0.20-3.00 [facility] ([place]) Comment on above: Result Comment: Rela tive Risk Category and Average hs-CRP Level: Higher Risk: > 5.0 mg/L Guidelines support that hs-CRP can be used as an independent predictor of increased coronary risk; however, hs-CRP results should only be interpreted in conjunction with other cardiac risk factors in establishing overall cardiac risk for a given patient. Performed By: #### [facility] #### [place] [address] LABORATORYOrdered By: SYSTEM SYSTEM on 02-10-2024 CRP High sensitivity method [Mass/Vol] 0.51 mg/L Normal 0.20 - 3.00 mg/L ADM Comment on above: Interpretive Data: R elative [...] Probe Positive Trichomonas vaginalis DNA Probe Negative [facility] No Panel Informationon 02-09 Culture Wound Aerobe Normal Vaginal Fina a: Present Neisseria gonorrhoeae: Negative [facility] Work Phone: GS 4+ Epithelial cells 4+ Gram Positive Rods , many rods are gram variable [facility] Work Phone: Iron measurement (mass/mass) Ordered By: Jake Wallis on 01-14-2024 Iron (Unsp spec) [Mass/Mass] 47 ug/dL 50-170 [facility] Laboratory - Chemistry and C hemistry - challengeOrdered By: Jake Wallis on 01-14-2024 Cobalamin (Vitamin B12) [Mass/Vol] 290 pg/mL 211-911 [facility] Transferrin [Mass/Vol] 310 mg/dL 192-364 [facility] Comment on above: Performed at: [place] [id number] Director: Cleveland Poon PhD, Phone: [phone] No Panel InformationOrdered By: Jake Wallis on 01-14-2024 Total Iron Binding Capacity 403 ug/dL 250-450 [facility] Serum or plasma iron saturat ion measurement (mass fraction)Ordered By: Jake Wallis on 01-14-2024 Iron saturation [Mass fraction] 11.7 % 15.0-55.0 [facility] Absolute lymphocyte countOrd ered By: Jake Wallis on 12-31-2023 Lymphocytes Auto (Unsp spec) [#/Vol] 2.67 10*3/uL 0.83-4.51 [facility] Automated lymphocyte count a s percentage of total leukocytesOrdered By: Jake Wallis on 12-31-2023 Lymphocytes/100 WBC Auto (Unsp spec) 27.3 % 19-41 [facility] Basophil percentageOrdered B y: Jake Wallis on 12-31-2023 Basophil percentage 0 SEEN /hpf 0-5 [facility] Basophils/100 WBC (Bld) 0.4 % 0-1 [facility] Bilirubin [Mass/Vol] 0.80 mg/dL 0.20-1.00 [facility] Comment on above: For patients on eltr ombopag therapy, use of Dimension Chandler TBIL is not recommended. Chloride [Moles/Vol] 104 mmol/L 98-107 [facility] Cholesterol [Mass/Vol] 114 mg/dL <200 [facility] Comment on above: <200 mg/dL Desirable 200-240 mg/dL Borderline >240 mg/dL High Risk Eosinophils/100 WBC (Bld) 0.6 % 0-5 [facility] Glucose [Mass/Vol] 98 mg/dL 74-106 [facility] Hemoglobin (Bld) [Mass/Vol] 11.7 g/dL 12.0-15.0 [facility] Monocytes/100 WBC (Bld) 5.1 % 0-10 [facility] Neutrophils (Bld) [#/Vol] 6.5 10*3/uL 2.0-7.7 [facility] Neutrophils/100 WBC (Bld) 66.3 % 47-70 [facility] Potassium [Moles/Vol] 3.7 mmol/L 3.5-5.1 [facility] Protein [Mass/Vol] 8.6 g/dL 6.4-8.2 [facility] Sodium [Moles/Vol] 139 mmol/L 136-145 [facility] Triglyceride [Mass/Vol] 135 mg/dL <199 [facility] Comment on above: The drugs N-Acetylcy steine and Metamizole may falsely depress this assay.Serum Triglycerides Reference Interval Normal <150 mg/dL Borderline high 150 - 199 mg/dL High 200 - 499 mg/dL Very High > or = 500 mg/dL WBC (Bld) [#/Vol] 9.8 10*3/uL 4.4-11.0 [facility] Bilirubin Test strip Ql (U)O rdered By: Jake Wallis on 12-31-2023 Bilirubin Ql (U) Negative Negative [facility] Calcium oxalate crystals det ection in urine sediment by light microscopyOrdered By: Jake Wallis on 12-31-2023 Calcium oxalate crystals LM Ql (Urine sed) RARE /hpf [facility] Determination of erythrocyte mean corpuscular volume (MCV)Ordered By: Jake Wallis on 12-31-2023 MCV (RBC) [Entitic vol] 89.6 fL 81-99 [facility] Erythrocyte distribution wid th ratioOrdered By: Jake Wallis on 12-31-2023 Erythrocyte distribution width (RBC) [Ratio] 13.5 % 11.6-14.6 [facility] Erythrocyte distribution wid th standard deviationOrdered By: Jake Wallis on 12-31-2023 Erythrocyte distribution width (RBC) [Entitic vol] 44.5 fL 35.1-43.9 [facility] Hematocrit Auto (Bld) [Volum e fraction]Ordered By: Jake Wallis on 12-31-2023 Hematocrit (Bld) [Volume fraction] 35.5 % 37-47 [facility] Immature granulocytes/100 WB C Auto (Bld)Ordered By: Jake Wallis on 12-31-2023 Immature granulocytes/100 WBC (Bld) 0.300 % 0.0-0.9 [facility] Comment on above: IG% - Immature Granu locytes (promyelocytes, myelocytes and metamyelocytes) > 1% indicates that a LEFT SHIFT is Present. Ketones Test strip Ql (U)Ord ered By: Jake Wallis on 12-31-2023 Ketones Ql (U) Negative Negative [facility] Laboratory - Chemistry and C hemistry - challengeOrdered By: Jake Wallis on 12-31-2023 Albumin/Globulin [Mass ratio] 1.0 {ratio} 0.9-2.4 [facility] ALP [Catalytic activity/Vol] 31 U/L 45-117 [facility] ALT [Catalytic activity/Vol] 26 U/L 13-56 [facility] Cholesterol in HDL [Mass/Vol] 58 mg/dL >40 [facility] Comment on above: The drugs N-Acetylcy steine and Metamizole may falsely depress this assay. Reference Range HDL <40 mg/dL Low HDL Cholesterol HDL >or= 60 mg/dL High HDL Cholesterol Cholesterol in LDL [Mass/Vol] 29 mg/dL 0-130 [facility] CK [Catalytic activity/Vol] 153 U/L 26-192 [facility] CO2 [Moles/Vol] 27.0 mmol/L 21.0-32.0 [facility] Ferritin [Mass/Vol] 9 ng/mL 8-252 [facility] Globulin (S) [Mass/Vol] 4.3 g/dL 2.2-4.2 [facility] Magnesium [Mass/Vol] 1.8 mg/dL 1.6-2.6 [facility] Urea nitrogen/Creatinine [Mass ratio] 14.5 mg/mg 10-20 [facility] Laboratory - Hematology and Cell countsOrdered By: Jake Wallis on 12-31-2023 MCH (RBC) [Entitic mass] 29.5 pg 27.0-32.0 [facility] MCHC (RBC) [Mass/Vol] 33.0 g/dL 32-36 [facility] Nucleated RBC/100 WBC (Bld) [Ratio] 0 % 0-5 [facility] Platelet mean volume (Bld) [Entitic vol] 10.6 fL 6.2-12.0 [facility] Platelets (Bld) [#/Vol] 218 10*3/uL 150-450 [facility] Mucus LM Ql (Urine sed)Order ed By: Jake Wallis on 12-31-2023 Mucus Ql (Urine sed) 0 SEEN /hpf [facility] Nitrite Test strip Ql (U)Ord ered By: Jake Wallis on 12-31-2023 Nitrite Ql (U) Negative Negative [facility] No Panel InformationOrdered By: Jake Wallis on 12-31-2023 Urine RBC 0 SEEN /hpf 0-5 [facility] Estimated GFR (MDRD) Amer 81 mL/min >60 [facility] Comment on above: GFR Calc Estimated GFR (MDRD) Non-Af Amer 67 mL/min >60 [facility] Comment on above: Non- GFR Calc Urine Microalbumin/Creatinine Ratio 54.3 mg/g CRE <30 [facility] Vitamin D 25-Hydroxy 35.2 ng/mL [facility] Comment on above: Vitamin D 25(OH) Sta tus Range Deficiency <20 ng/mL (50nmol/L) Insufficiency 20 - 30 ng/mL (50 - 75 nmol/L) Sufficiency 30 - 100 ng/mL (75 - 250 nmol/L) Toxicity >100 ng/mL (>250 nmol/L) VLDL Cholesterol 27 mg/dL 5-40 [facility] Protein Test strip Ql (U)Ord ered By: Jake Wallis on 12-31-2023 Protein Ql (U) Negative Negative [facility] RBC Auto (Bld) [#/Vol]Ordere d By: Jake Wallis on 12-31-2023 RBC (Bld) [#/Vol] 3.96 10*6/uL 4.2-5.4 [facility] Serum or plasma calcium bernard urement (mass/volume)Ordered By: Jake Wallis on 12-31-2023 Calcium [Mass/Vol] 9.5 mg/dL 8.5-10.1 [facility] Serum or plasma creatinine m easurement (mass/volume)Ordered By: Jake Wallis on 12-31-2023 Creatinine [Mass/Vol] 0.90 mg/dL 0.55-1.02 [facility] Comment on above: The validity of the calculated GFR & GFRAA in patients over 70 years has not been determined. Clinical correlation is essential. Serum or plasma thyroid stim ulating hormone (TSH) measurement (units/volume)Ordered By: Jake Wallis on 12-31-2023 TSH Qn 1.37 uIU/mL 0.358-3.74 [facility] Serum or plasma thyroperoxid ase antibody assay (units/volume)Ordered By: Jake Wallis on 12-31-2023 TPO Ab Qn 18 [IU]/mL 0-34 [facility] Comment on above: Performed at: [place] [id number] Director: Cleveland Poon PhD, Phone: [phone] Serum or plasma urea nitroge n measurement (mass/volume)Ordered By: Jake Wallis on 12-31-2023 Urea nitrogen [Mass/Vol] 13 mg/dL 7-18 [facility] Squamous epithelial cells de tection in urine sediment by light microscopyOrdered By: Jake Wallis on 12-31-2023 Epithelial cells.squamous LM Ql (Urine sed) 0 SEEN /hpf 5-10 [facility] Thin prep Papanicolaou smear with manual screeningOrdered By: Jake Wallis on 12-31-2023 Thin prep Papanicolaou smear with manual screening 4.3 g/dL 3.2-5.0 [facility] Thin prep Papanicolaou smear with manual screening 18 U/L 15-37 [facility] Thin prep Papanicolaou smear with manual screening 8 5-15 [facility] Thin prep Papanicolaou smear with manual screening 14.5 mg/L NO RANGE EST. [facility] Thin prep Papanicolaou smear with manual screening 1.00 ng/dL 0.76-1.46 [facility] Urine blood detectionOrdered By: Jake Wallis on 12-31-2023 RBC Ql (U) Negative Negative [facility] Urine clarityOrdered By: Akin Wallis on 12-31-2023 Clarity (U) Clear Clear [facility] Urine color determinationOrd ered By: Jake Wallis on 12-31-2023 Color (U) Yellow Yellow [facility] Urine creatinine measurement (mass/volume)Ordered By: Jake Wallis on 12-31-2023 Creatinine (U) [Mass/Vol] 26.70 mg/dL NO RANGE EST. [facility] Urine glucose detectionOrder ed By: Jake Wallis on 12-31-2023 Glucose Ql (U) Normal mg/dl Normal [facility] Urine leukocyte esterase det ection by dipstickOrdered By: Jake Wallis on 12-31-2023 Leukocyte esterase Test strip Ql (U) Negative Negative [facility] Urine pHOrdered By: Jake gorman on 12-31-2023 pH (U) 5.0 [pH] 5.0 - 8.0 [facility] Urine sediment bacteria coun t by microscopy (number/high power field)Ordered By: Jake Wallis on 12-31-2023 Bacteria LM.HPF (Urine sed) [#/Area] 0 /[HPF] None Seen [facility] Urine specific gravity measu rementOrdered By: Jake Wallis on 12-31-2023 Specific gravity (U) [Rel density] 1.010 1.002-1.030 [facility] Urine urobilinogen measureme ntOrdered By: Jake Wallis on 12-31-2023 Urobilinogen Ql (U) Normal mg/dl Normal [facility] Whole blood hemoglobin A1c/t otal hemoglobin ratio (mass fraction)Ordered By: Jake Wallis on 12-31-2023 HbA1c (Bld) [Mass fraction] 6.9 % 3.8-5.6 [facility] Comment on above: Normal < 5.7 % Predi abetic 5.7 - 6.4 % Diabetic >or= 6.5 % Please note range changes. MRI BRAIN WO/W IVCONon 10-[address] [facility] [address] BRAIN WO IVCONon 09-11-20 CT BRAIN WO IVCON * * *Final Report* * * DATE OF EXAM: Sep 11 2023 4:00PM [facility] 0504 - CT BRAIN WO IVCON / [...] and iterative recon COMPARISON: MRI 11/06/2015. RESULT: [employer] (topogram) images: No additional findings. Post-operative change: [...] be communicated with the ordering provider via [employer] staff message or phone message by [employer] within 2 business days of report finalization. --END OF FINDING-- Bookkeeper Assistant: PSCB Transcribe Date/Time: Sep 11 2023 4:01P Dictated by : GHADA DANIELS MD This examination was interpreted and the report reviewed and electronically signed by: GHADA DANIELS MD on Sep 11 2023 4:06PM EST [id number] [id number] Invalid Interpretation Code [facility] CBC W Auto Differential pane l (Bld)on 09-10-2023 Basophils (Bld) [#/Vol] 0.04 10*3/uL <0.11 k/uL [facility] Basophils/100 WBC (Bld) 0.6 % [facility] Differential cell count method Nom (Bld) Auto [facility] Eosinophils (Bld) [#/Vol] 0.09 10*3/uL <0.46 k/uL [facility] Eosinophils/100 WBC (Bld) 1.3 % [facility] Erythrocyte distribution width (RBC) [Ratio] 12.6 % 11.5 - 15.0 % [facility] Hematocrit (Bld) [Volume fraction] 34.8 % Low 36.0 - 46.0 % [facility] Hemoglobin (Bld) [Mass/Vol] 11.6 g/dL 11.5 - 15.5 g/dL [facility] Immature granulocytes (Bld) [#/Vol] <0.10 k/uL [facility] Immature granulocytes/100 WBC (Bld) 0.1 % [facility] Lymphocytes (Bld) [#/Vol] 3.59 10*3/uL 1.00 - 4.00 k/uL [facility] Lymphocytes/100 WBC (Bld) 52.0 % [facility] MCH (RBC) [Entitic mass] 29.8 pg 26. 0 - 34.0 pg [facility] MCHC (RBC) [Mass/Vol] 33.3 g/dL 30.5 - 36.0 g/dL [facility] MCV (RBC) [Entitic vol] 89.5 fL 80.0 - 100.0 fL [facility] Monocytes (Bld) [#/Vol] 0.45 10*3/uL <0.87 k/uL [facility] Monocytes/100 WBC (Bld) 6.5 % [facility] Neutrophils (Bld) [#/Vol] 2.73 10*3/uL 1.45 - 7.50 k/uL [facility] Neutrophils/100 WBC (Bld) 39.5 % [facility] Nucleated RBC (Bld) [#/Vol] <0.01 k/uL [facility] Nucleated RBC/100 WBC (Bld) [Ratio] 0.0 /100 WBC [facility] Platelet mean volume (Bld) [Entitic vol] 9.9 fL 9.0 - 12.7 fL [facility] Platelets (Bld) [#/Vol] 254 10*3/uL 150 - 400 k/uL [facility] RBC (Bld) [#/Vol] 3.89 10*6/uL Low 3.90 - 5.2 0 m/uL [facility] WBC (Bld) [#/Vol] 6.91 10*3/uL 3.70 - 11.00 k/uL [facility] Comprehensive metabolic 2000 panelon 09-10-2023 Albumin [Mass/Vol] 4.5 g/dL 3.9 - 4.9 g/dL [facility] ALP [Catalytic activity/Vol] 28 U/L Low 34 - 123 U/L [facility] ALT [Catalytic activity/Vol] 26 U/L 7 - 38 U/L [facility] Anion gap [Moles/Vol] 13 mmol/L 9 - 18 mmol/L [facility] AST [Catalytic activity/Vol] 25 U/L 13 - 35 U/L [facility] Bilirubin [Mass/Vol] 0.3 mg/dL 0.2 - 1 .3 mg/dL [facility] Calcium [Mass/Vol] 10.2 mg/dL 8.5 - 10. 2 mg/dL [facility] Chloride [Moles/Vol] 98 mmol/L 97 - 10 5 mmol/L [facility] CO2 [Moles/Vol] 26 mmol/L 22 - 30 mmol/L [facility] Creatinine [Mass/Vol] 0.90 mg/dL 0.58 - 0.96 mg/dL [facility] Estimated Glomerular Filtration Rate 71 mL/min/1.73m >=60 mL/min/1.73 m [facility] Glucose [Mass/Vol] 97 mg/dL 74 - 99 mg/dL [facility] Potassium [Moles/Vol] 3.8 mmol/L 3.7 - 5.1 mmol/L [facility] Protein [Mass/Vol] 8.1 g/dL High 6.3 - 8.0 g/dL [facility] Sodium [Moles/Vol] 137 mmol/L 136 - 144 mmol/L [facility] Urea nitrogen [Mass/Vol] 19 mg/dL 7 - 21 mg/dL [facility] No Panel Informationon 09-10 Radiology Study observation (narrative) [facility] XR Cervical spine AP and Lat eral and obliqueon 09-10-2023 IMPRESSION: No acute osseous abnormalities are identified. Cervical spondylosis. Anatomic Variant: None. Assume 7 cervical vertebrae with counting from the craniocervical junction. Bookkeeper Assistant: TRI Transcribe Date/Time: Sep 10 2023 2:12P Dictated by : DUY MONTALVO MD This examination was interpreted and the report reviewed and electronically signed by: DUY MONTALVO MD on Sep 10 2023 2:15PM [facility] DIVISION OF RADIOLOGY * * [...] tissues: Normal. DIVISION OF RADIOLOGY Provider, Sunny Regalado - 09/10/2023 * * *Final Report* * [...] vertebrae with counting from the craniocervical junction. Bookkeeper Assistant: TRI Transcribe Date/Time: Sep 10 2023 2:12P Dictated by : DUY MONTALVO MD This examination was interpreted and the report reviewed and electronically signed by: DUY MONTALVO MD on Sep 10 2023 2:15PM EST [facility] XR Cervical spine AP and Lat eral and obliqueOrdered By: [facility] Provider on 09-10-2023 [facility] XR Ribs - right Views and est PAon 09-10-2023 IMPRESSION: No acute abnormality is identified. Bookkeeper Assistant: TRI Transcribe Date/Time: Sep 10 2023 2:08P [...] with calcific tendinitis/bursitis. DIVISION OF RADIOLOGY Provider, Sunny Berkowitz Helen DeVos [facility] * * *Final Report* [...] IMPRESSION IMPRESSION: No acute abnormality is identified. Bookkeeper Assistant: TRI Transcribe Date/Time: Sep 10 2023 2:08P Dictated by : DUY MONTALVO MD This examination was interpreted and the report reviewed and electronically signed by: DUY MONTALVO MD on Sep 10 2023 2:12PM EST [facility] No Panel Informationon 07-28 [facility] XR Shoulder - right 3 Viewso n 03-28-2023 IMPRESSION: Degenera tive changes and rotator cuff calcific tendinosis. No acute abnormality Bookkeeper Assistant: TRI Transcribe Date/Time: Mar 28 2023 9:55P Dictated by : ALONSO HERNANDEZ MD This examination was interpreted and the report reviewed and electronically signed by: ALONSO HERNANDEZ MD on Mar 28 2023 9:56PM [facility] DIVISION OF RADIOLOGY * * [...] lower cervical spine. DIVISION OF RADIOLOGY Provider, [facility] - 03/28/2023 * * *Final Report* [...] rotator cuff calcific tendinosis. No acute abnormality Bookkeeper Assistant: PSCB Transcribe Date/Time: Mar 28 2023 9:55P Dictated by : ALONSO HERNANDEZ MD This examination was interpreted and the report reviewed and electronically signed by: ALONSO HERNANDEZ MD on Mar 28 2023 9:56PM EST [facility] XR Shoulder - right 3 ViewsO rdered By: Ccf Provider on 03-28-2023 [facility] XR Shoulder - right 3 Viewso n 03-27-2023 Radiology Study observation (narrative) [facility] CARLOS EDUARDO SCREENINGon 03-25-2023 [facility] No Panel Informationon 02-27 [facility] Absolute lymphocyte countOrd ered By: Dr. Armstrong on 01-12-2023 Lymphocytes Auto (Unsp spec) [#/Vol] 2.73 10*3/uL 0.83-4.51 [facility] Basophil percentageOrdered B y: Dr. Armstrong on 01-12-2023 Basophils/100 WBC (Bld) 0.3 % 0-1 [facility] Chloride [Moles/Vol] 100 mmol/L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 14:21-0400 Systolic blood pressure 146 mm[Hg] Cristhian Masci DO Work Phone: [facility] 02-02-2025 05:14-0400 Body mass index (BMI) [Ratio] 24.8 kg/m2 Alexus Sven DO Work Phone: [facility] 02-02-2025 05:14-0400 Body temperature 97.4 [degF] Alexus Sven DO Work Phone: [facility] 02-02-2025 05:14-0400 Body weight 61.68 kg Alexus Sven DO Work Phone: [facility] 02-02-2025 05:14-0400 Diastolic blood pressure 75 mm[Hg] Alexus Sven DO Work Phone: [facility] 02-02-2025 05:14-0400 Heart rate 68 /min Alexus Sven DO Work Phone: 0(537)624-832089 [place] [address] 02-02-2025 05:14-0400 Respiratory rate 18 /min Alexus Sven DO Work Phone: 2(635)623-260589 [place] [address] 02-02-2025 05:14-0400 SaO2% (BldA) [Mass fraction] 99 % Alexus Sven DO Work Phone: [facility] 02-02-2025 05:14-0400 Systolic blood pressure 132 mm[Hg] Alexus Sven DO Work Phone: [facility] 09-10-2024 13:50-0400 Body mass index (BMI) [Ratio] 25.27 kg/m2 uJarez Ball MD Work Phone: [facility] 09-10-2024 13:50-0400 Body temperature 97.2 [degF] Juarez Ball MD Work Phone: [facility] 09-10-2024 13:50-0400 Body weight 61.5 kg Juarez Ball MD Work Phone: [facility] 09-10-2024 13:50-0400 Diastolic blood pressure 72 mm[Hg] Juarez Ball MD Work Phone: [facility] 09-10-2024 13:50-0400 Heart rate 93 /min Juarez Ball MD Work Phone: [facility] 09-10-2024 13:50-0400 Respiratory rate 18 /min Juarez Ball MD Work Phone: [facility] 09-10-2024 13:50-0400 SaO2% (BldA) [Mass fraction] 98 % Juarez Ball MD Work Phone: [facility] 09-10-2024 13:50-0400 Systolic blood pressure 120 mm[Hg] Juarez Ball MD Work Phone: [facility] 08-17-2024 15:59-0400 Body mass index (BMI) [Ratio] 25.26 kg/m2 Cristhian Masci DO Work Phone: [facility] 08-17-2024 15:59-0400 Body temperature 97.2 [degF] Cristhian Masci DO Work Phone: [facility] 08-17-2024 15:59-0400 Body weight 61.46 kg Cristhian Masci DO Work Phone: [facility] 08-17-2024 15:59-0400 Diastolic blood pressure 63 mm[Hg] Cristhian Masci DO Work Phone: [facility] 08-17-2024 15:59-0400 Heart rate 94 /min Cristhian Masci DO Work Phone: [facility] 08-17-2024 15:59-0400 SaO2% (BldA) [Mass fraction] 98 % Cristhian Masci DO Work Phone: [facility] 08-17-2024 15:59-0400 Systolic blood pressure 100 mm[Hg] Cristhian Masci DO Work Phone: [facility] 2024 13:13-0400 Diastolic blood pressure 70 mm[Hg] [place] Tavares [employer] Work Phone: [facility] 2024 13:13-0400 Heart rate 79 /min [place] Tavares [employer] ASSISTANT Work Phone: [facility] 2024 13:13-0400 Systolic blood pressure 113 mm[Hg] [place] Tavares [employer] ASSISTANT Work Phone: [facility] 2024 12:53-0400 Body mass index (BMI) [Ratio] 25.54 kg/m2 Orville Lawenter [employer] ASSISTANT Work Phone: [facility] 2024 12:53-0400 Body temperature 97.59 [degF] Orville Lawenter [employer] ASSISTANT Work Phone: [facility] 2024 12:53-0400 Body weight 62.14 kg Orville Tavares [employer] ASSISTANT Work Phone: [facility] 2024 12:53-0400 SaO2% (BldA) [Mass fraction] 95 % Orville Lawenter [employer]ISTANT Work Phone: [facility] 06-24-2024 09:51-0400 Body mass index (BMI) [Ratio] 25.35 kg/m2 Cristhian Masci DO Work Phone: [facility] 06-24-2024 09:51-0400 Body temperature 98.29 [degF] Cristhian Masci DO Work Phone: [facility] 06-24-2024 09:51-0400 Body weight 61.69 kg Cristhian Masci DO Work Phone: [facility] 06-24-2024 09:51-0400 Diastolic blood pressure 74 mm[Hg] Cristhian Masci DO Work Phone: [facility] 06-24-2024 09:51-0400 Heart rate 109 /min Cristhian Masci DO Work Phone: [facility] 06-24-2024 09:51-0400 SaO2% (BldA) [Mass fraction] 99 % Cristhian Masci DO Work Phone: [facility] 06-24-2024 09:51-0400 Systolic blood pressure 127 mm[Hg] Cristhian Masci DO Work Phone: [facility] 06-02-2024 08:43-0400 Body height 156 cm Cristhian Masci DO Work Phone: [facility] 06-02-2024 08:43-0400 Body mass index (BMI) [Ratio] 26.09 kg/m2 Cristhian Vaili DO Work Phone: [facility] 06-02-2024 08:43-0400 Body temperature 97.9 [degF] Cristhian Vaili DO Work Phone: [facility] 06-02-2024 08:43-0400 Body weight 63.5 kg Cristhian Vaili DO Work Phone: [facility] 06-02-2024 08:43-0400 Diastolic blood pressure 76 mm[Hg] Cristhian Vaili DO Work Phone: [facility] 06-02-2024 08:43-0400 Heart rate 76 /min Cristhian Vaili DO Work Phone: [facility] 06-02-2024 08:43-0400 SaO2% (BldA) [Mass fraction] 97 % Cristhian Vaili DO Work Phone: [facility] 06-02-2024 08:43-0400 Systolic blood pressure 124 mm[Hg] Cristhian Vaili DO Work Phone: [facility] 04-21-2024 13:59-0400 Body height 157.5 cm Pelon Skinner MD Work Phone: [facility] 04-21-2024 13:59-0400 Body mass index (BMI) [Ratio] 26.45 kg/m2 Pelon Skinner MD Work Phone: [facility] 04-21-2024 13:59-0400 Body temperature 98.01 [degF] Pelon Skinner MD Work Phone: [facility] 04-21-2024 13:59-0400 Body weight 65.59 kg Pelon Skinner MD Work Phone: [facility] 04-21-2024 13:59-0400 Diastolic blood pressure 62 mm[Hg] Pelon Skinner MD Work Phone: [facility] 04-21-2024 13:59-0400 Heart rate 90 /min Pelon Skinner MD Work Phone: [facility] 04-21-2024 13:59-0400 Respiratory rate 14 /min Pelon Skinner MD Work Phone: [facility] 04-21-2024 13:59-0400 SaO2% (BldA) [Mass fraction] 100 % Pelon Skinner MD Work Phone: [facility] 04-21-2024 13:59-0400 Systolic blood pressure 102 mm[Hg] Pelon Skinner MD Work Phone: [facility] 02-23-2024 14:31-0400 Body height 157.5 cm Pelon Skinner MD Work Phone: [facility] 02-23-2024 14:31-0400 Body temperature 97.81 [degF] Pelon Skinner MD Work Phone: [facility] 02-23-2024 14:31-0400 Body weight 66.77 kg Pelon Skinner MD Work Phone: [facility] 02-23-2024 14:31-0400 Diastolic blood pressure 68 mm[Hg] Pelon Skinner MD Work Phone: [facility] 02-23-2024 14:31-0400 Heart rate 115 /min Pelon Skinner MD Work Phone: [facility] 02-23-2024 14:31-0400 SaO2% (BldA) [Mass fraction] 97 % Pelon Skinner MD Work Phone: [facility] 02-23-2024 14:31-0400 Systolic blood pressure 118 mm[Hg] Pelon Skinner MD Work Phone: [facility] 10-14-2023 09:43-0500 Body weight 67.13 kg Sherie Melgoza [employer] Work Phone: [facility] 10-14-2023 09:43-0500 Diastolic blood pressure 70 mm[Hg] Sherie Melgoza [employer] ASSISTANT Work Phone: [facility] 10-14-2023 09:43-0500 Heart rate 68 /min Sherie Melgoza [employer] ASSISTANT Work Phone: [facility] 10-14-2023 09:43-0500 Respiratory rate 15 /min Sherie Cannonter [employer] ASSISTANT Work Phone: [facility] 10-14-2023 09:43-0500 SaO2% (BldA) [Mass fraction] 100 % Sherie Cannonter [employer] ASSISTANT Work Phone: [facility] 10-14-2023 09:43-0500 Systolic blood pressure 128 mm[Hg] Sherie Cannonter [employer] ASSISTANT Work Phone: [facility] 09-29-2023 10:00-0500 Body temperature 97.11 [degF] NA Mirza PA-C Work Phone: [facility] 09-29-2023 10:00-0500 Body weight 67.13 kg NA Mirza PA-C Work Phone: [facility] 09-29-2023 10:00-0500 Diastolic blood pressure 74 mm[Hg] NA Mirza PA-C Work Phone: [facility] 09-29-2023 10:00-0500 Heart rate 75 /min NA Mirza PA-C Work Phone: [facility] 09-29-2023 10:00-0500 SaO2% (BldA) [Mass fraction] 98 % NA Mirza PA-C Work Phone: [facility] 09-29-2023 10:00-0500 Systolic blood pressure 130 mm[Hg] NA Mirza PA-C Work Phone: [facility] 09-10-2023 12:40-0400 Body weight 65.86 kg Sahra Podlogar [employer] ASSISTANT Work Phone: [facility] 09-10-2023 12:40-0400 Diastolic blood pressure 78 mm[Hg] Sahra Podlogar [employer] ASSISTANT Work Phone: [facility] 09-10-2023 12:40-0400 Heart rate 79 /min Sahra Podlogar [employer] ASSISTANT Work Phone: [facility] 09-10-2023 12:40-0400 Respiratory rate 18 /min Sahra Podlogar [employer] ASSISTANT Work Phone: [facility] 09-10-2023 12:40-0400 SaO2% (BldA) [Mass fraction] 98 % Sahra Podlogar [employer] ASSISTANT Work Phone: [facility] 09-10-2023 12:40-0400 Systolic blood pressure 134 mm[Hg] Sahra Podlogar [employer] ASSISTANT Work Phone: [facility] 05-01-2023 13:43-0400 Body weight 66.22 kg NA Mirza PA-C Work Phone: [facility] 05-01-2023 13:43-0400 Diastolic blood pressure 68 mm[Hg] NA Mirza PA-C Work Phone: [facility] 05-01-2023 13:43-0400 Heart rate 49 /min NA Mirza PA-C Work Phone: [facility] 05-01-2023 13:43-0400 Respiratory rate 16 /min NA Mirza PA-C Work Phone: [facility] 05-01-2023 13:43-0400 SaO2% (BldA) [Mass fraction] 97 % NA Mirza PA-C Work Phone: [facility] 05-01-2023 13:43-0400 Systolic blood pressure 126 mm[Hg] NA Mirza PA-C Work Phone: [facility] 02-17-2023 13:58-0400 Body weight 66.68 kg Clarice Petersen MD Work Phone: [facility] 02-17-2023 13:58-0400 Diastolic blood pressure 64 mm[Hg] Clarice Petersen MD Work Phone: [facility] 02-17-2023 13:58-0400 Heart rate 74 /min Clarice Petersen MD Work Phone: [facility] 02-17-2023 13:58-0400 SaO2% (BldA) [Mass fraction] 98 % Clarice Petersen MD Work Phone: [facility] 02-17-2023 13:58-0400 Systolic blood pressure 122 mm[Hg] Clarice Petersen MD Work Phone: [facility] 02-05-2023 18:16-0400 Body height 157.48 cm [facility] 02-05-2023 18:16-0400 Body mass index (BMI) [Ratio] 27.1 kg/m2 [facility] 02-05-2023 18:16-0400 Body temperature 96.2 [degF] [facility] 02-05-2023 18:16-0400 Body weight 67.13 kg [facility] 02-05-2023 18:16-0400 Diastolic blood pressure 67 mm[Hg] [facility] 02-05-2023 18:16-0400 Heart rate 92 /min [facility] 02-05-2023 18:16-0400 Respiratory rate 18 /min [facility] 02-05-2023 18:16-0400 SaO2% (BldA) [Mass fraction] 100 % [facility] 02-05-2023 18:16-0400 Systolic blood pressure 133 mm[Hg] [facility] 01-12-2023 07:39-0500 Body temperature 97 [degF] [facility] 01-12-2023 07:39-0500 Diastolic blood pressure 78 mm[Hg] [facility] 01-12-2023 07:39-0500 Heart rate 78 /min [facility] 01-12-2023 07:39-0500 Respiratory rate 16 /min [facility] 01-12-2023 07:39-0500 SaO2% (BldA) [Mass fraction] 99 % [facility] 01-12-2023 07:39-0500 Systolic blood pressure 115 mm[Hg] [facility] 01-12-2023 06:29-0500 Body mass index (BMI) [Ratio] 29.4 kg/m2 [facility] 01-12-2023 06:29-0500 Body weight 72.9 kg [facility] 12-26-2022 10:25-0500 Body weight 67.13 kg NA Mirza PA-C Work Phone: [facility] 12-26-2022 10:25-0500 Diastolic blood pressure 62 mm[Hg] NA Mirza PA-C Work Phone: [facility] 12-26-2022 10:25-0500 Heart rate 76 /min NA Mirza PA-C Work Phone: [facility] 12-26-2022 10:25-0500 Respiratory rate 16 /min NA Mirza PA-C Work Phone: [facility] 12-26-2022 10:25-0500 SaO2% (BldA) [Mass fraction] 96 % NA Mirza PA-C Work Phone: [facility] 12-26-2022 10:25-0500 Systolic blood pressure 108 mm[Hg] NA Mirza PA-C Work Phone: [facility] 08-08-2022 11:34-0400 Body weight 67.13 kg NA Mirza PA-C Work Phone: [facility] 08-08-2022 11:34-0400 Diastolic blood pressure 60 mm[Hg] NA Mirza PA-C Work Phone: [facility] 08-08-2022 11:34-0400 Heart rate 74 /min NA Mirza PA-C Work Phone: [facility] 08-08-2022 11:34-0400 Respiratory rate 16 /min NA Mirza PA-C Work Phone: [facility] 08-08-2022 11:34-0400 SaO2% (BldA) [Mass fraction] 96 % NA Mirza PA-C Work Phone: [facility] 08-08-2022 11:34-0400 Systolic blood pressure 116 mm[Hg] NA Mirza PA-C Work Phone: [facility] 06-12-2022 14:59-0400 Body height 154.9 cm Clarice Petersen MD Work Phone: [facility] 06-12-2022 14:59-0400 Body weight 68.31 kg Clarice Petersen MD Work Phone: [facility] 06-12-2022 14:59-0400 Diastolic blood pressure 66 mm[Hg] Clarice Petersen MD Work Phone: [facility] 06-12-2022 14:59-0400 Heart rate 74 /min Clarice Petersen MD Work Phone: [facility] 06-12-2022 14:59-0400 SaO2% (BldA) [Mass fraction] 97 % Clarice Petersen MD Work Phone: [facility] 06-12-2022 14:59-0400 Systolic blood pressure 112 mm[Hg] Clarice Petersen MD Work Phone: [facility] 03-14-2022 08:52-0400 Diastolic blood pressure 64 mm[Hg] Fran Salcido MD Work Phone: [facility] 03-14-2022 08:52-0400 Heart rate 58 /min Fran Salcido MD Work Phone: [facility] 03-14-2022 08:52-0400 Respiratory rate 16 /min Fran Salcido MD Work Phone: [facility] 03-14-2022 08:52-0400 SaO2% (BldA) [Mass fraction] 96 % Fran Salcido MD Work Phone: [facility] 03-14-2022 08:52-0400 Systolic blood pressure 121 mm[Hg] Fran Salcido MD Work Phone: [facility] 03-14-2022 08:34-0400 Body temperature 97.9 [degF] Fran Salcido MD Work Phone: [facility] 03-12-2022 15:12-0400 Body weight 69.85 kg Clarice Petersen MD Work Phone: [facility] 03-12-2022 15:12-0400 Diastolic blood pressure 70 mm[Hg] Clarice Petersen MD Work Phone: [facility] 03-12-2022 15:12-0400 Heart rate 69 /min Clarice Petersen MD Work Phone: [facility] 03-12-2022 15:12-0400 Respiratory rate 16 /min Clarice Petersen MD Work Phone: [facility] 03-12-2022 15:12-0400 SaO2% (BldA) [Mass fraction] 97 % Clarice Petersen MD Work Phone: [facility] 03-12-2022 15:12-0400 Systolic blood pressure 110 mm[Hg] Clarice Petersen MD Work Phone: [facility] 02-28-2022 10:28-0400 Body height 155.6 cm Barbie Ruiz MD Work Phone: [facility] 02-28-2022 [id number] Body weight 70.76 kg Barbie Ruiz MD Work Phone: [facility] 02-28-2022 10:28-0400 Heart rate 67 /min Barbie Ruiz MD Work Phone: [facility] 02-28-2022 10:28-0400 Respiratory rate 14 /min Barbie Ruiz MD Work Phone: [facility] 02-28-2022 10:28-0400 SaO2% (BldA) [Mass fraction] 94 % Barbie Ruiz MD Work Phone: [facility] 02-28-2022 10:25-0400 Body height 155.6 cm Respiratory Wstr Work Phone: [facility] 02-28-2022 10:250400 Body weight 70.76 kg Respiratory Wstr Work Phone: [facility] 02-28-2022 10:25-0400 Heart rate 67 /min Respiratory Wstr Work Phone: [facility] 02-28-2022 10:25-0400 Respiratory rate 14 /min Respiratory Wstr Work Phone: [facility] 02-28-2022 10:25-0400 SaO2% (BldA) [Mass fraction] 94 % Respiratory Wstr Work Phone: [facility] Encounters Encounter Date Encounter Type Care Provider Facility Start: 09-19-2025 End: 09-19-2025 ambulatory Dennis Hamm Facility:[facility] Start: 09-08-2025 End: 09-08-2025 ambulatory Dennis Louielay Facility:[facility] Start: 08-29-2025 End: 08-29-2025 ambulatory Dennis Louielay Facility:[facility] Start: 08-25-2025 End: 08-25-2025 ambulatory Denniskeiko Louielay Facility:[facility] Start: 08-13-2025 End: 08-13-2025 Emergency department patient visit Dr. Dennis Hamm MD Work Phone: -Emergency Department Work Phone: Start: 08-12-2025 End: 08-12-[address] Manolo Kothari MD [facility] Start: 08-12-2025 End: 08-12-[address] Dennis Hamm MD Work Phone: [facility] Start: 08-09-2025 Encounter for other preprocedural examination Evelia Kimble [facility] Start: 07-28-2025 End: 07-28-[address] Dennis Hamm MD Work Phone: -[facility] Start: 07-28-2025 End: 07-28-2025 Patient encounter procedure Evelia Kimble PASTRY BAKER-C -[facility] Work Phone: Start: 07-28-[address] Nathan Hamm MD Work Phone: [facility] Start: 07-28-2025 End: 07-28-2025 Patient encounter procedure Evelia Kimble NP-[place] [facility] Work Phone: Start: 07-28-2025 End: 07-28-2025 Patient encounter status Evelia Kimble PASTRY BAKER-C [facility] Start: 07-28-2025 End: 07-28-[address] Dennis Hamm MD Work Phone: [facility] Start: 07-28-2025 End: 07-28-2025 ambulatory Dennis Louielay Facility:[facility] Start: 07-20-2025 End: 07-20-[address] Conor Barros MD -Physical Therapy Work Phone: Start: 07-20-[address] Conor Barros MD -Physical Therapy Work Phone: Start: 07-20-2025 End: 07-20-[address] Dennis Hamm MD Work Phone: -Physical Therapy Start: 07-20-2025 End: 07-20-[address] Dennis Hamm MD Work Phone: -Laboratory Specimen Start: 07-20-2025 End: 07-20-2025 Patient encounter procedure Ginny Acevedo NP-C -Laboratory Specimen Work Phone: Start: 07-20-2025 End: 07-20-2025 Patient encounter procedure Ginny Acevedo NP-C -[facility] Work Phone: Start: 07-20-2025 End: 07-20-[address] Dennis Hamm MD Work Phone: -[facility] Start: 07-20-2025 End: 07-20-2025 ambulatory Dennis Hamm Facility:[facility] Start: 07-18-2025 ambulatory Dennis Hamm Facility :[facility] Start: 07-14-2025 End: 07-14-[address] Dennis Hamm MD Work Phone: -Laboratory Start: 07-14-2025 End: 07-14-[address] Dennis Hamm MD -Laboratory Work Phone: Start: 07-14-2025 End: 07-14-2025 ambulatory Dennis [place] Facility:[facility] Start: 07-08-2025 End: 07-08-2025 ambulatory Rachel Madden PASTRY BAKER-C Work Phone: -Outpatient Breast Imaging Start: 07-08-2025 End: 07-08-[address] Dennis Hamm MD -Outpatient Breast Imaging Work Phone: Start: 07-08-2025 End: 07-08-2025 ambulatory Dennis [place] Facility:[facility] Start: 07-05-2025 End: 07-05-[address] Manolo Kothari MD -[facility] Start: 07-05-2025 End: 07-05-2025 ambulatory No Primary Care Physician -[facility] Start: 06-27-2025 End: 06-27-[address] Dennis Hamm MD -[facility] Work Phone: Start: 06-27-2025 End: 06-27-2025 ambulatory No Primary Care Physician -[facility] Start: 06-21-2025 End: 06-21-2025 ambulatory No Primary Care Physician -Laboratory Specimen Start: 06-21-2025 End: 06-21-2025 Patient encounter procedure Ginny Acevedo PASTRY BAKER-C -Laboratory Specimen Work Phone: Start: 06-21-2025 End: 06-21-2025 Patient encounter procedure Ginny Acevedo PASTRY BAKER-C [facility] Work Phone: Start: 06-21-2025 End: 06-21-2025 ambulatory No Primary Care Physician -[facility] Start: 06-21-2025 End: 06-21-2025 ambulatory Dennis [place] Facility:[facility] Start: 06-10-2025 End: 06-10-[address] Janie Elias MD -[facility] Work Phone: Start: 06-10-2025 End: 06-10-2025 ambulatory No Primary Care Physician -[facility] Start: 06-10-2025 ambulatory Dennis [place] Facility :[facility] Start: 06-10-2025 Non-patient / Non-visit Dr. Akhil HOLGUIN -[facility] Start: 06-10-2025 End: 06-10-2025 ambulatory No Primary Care Physician -Cardiovascular Services Start: 06-10-2025 End: 06-10-[address] Dao Luciano MD -Cardiovascular Services Work Phone: Start: 06-10-2025 End: 06-10-2025 ambulatory Dao Luciano Facility:[facility] Start: 06-07-2025 End: 06-07-2025 Patient encounter procedure BIM NURSE -[facility] Work Phone: Start: 06-07-2025 End: 06-07-2025 ambulatory No Primary Care Physician -[facility] Start: 05-21-[address] Qi Luciano MD -Cardiovascular Services Work Phone: Start: 05-21-2025 ambulatory Dao Luciano Facility :[facility] Start: 05-21-2025 Non-patient / Non-visit Dr. Elenita Luciano MD -[facility] Work Phone: Start: 05-16-2025 End: 05-16-[address] Dao Luciano MD -[facility] Work Phone: Start: 05-16-2025 End: 05-16-[address] Jake Wallis MD Work Phone: -[facility] Start: 05-05-2025 ambulatory Amanda Mckeoni ty:[facility] Start: 04-07-2025 End: 04-07-2025 Patient encounter procedure Amanda WILLIS -[facility] Work Phone: Start: 04-07-2025 End: 04-07-2025 ambulatory Alexus Machuca DO Work Phone: [facility] Work Phone: Start: 04-06-2025 End: 04-06-2025 Patient encounter procedure ROWAN Madden -[facility] Work Phone: Start: 04-06-2025 End: 04-06-2025 ambulatory Alexus Sven DO Work Phone: [facility] Work Phone: Start: 04-04-2025 ambulatory Dennis Claudine Facility [facility] Start: 04-04-2025 Non-patient / Non-visit Dr. Mitch Ramey own DO -[facility] Start: 03-31-2025 End: 03-31-2025 ambulatory Alexus Sven DO Work Phone: [facility] Work Phone: Start: 03-31-2025 End: 03-31-[address] Dennis Hamm MD -Outpatient Bone Densitometry Work Phone: Start: 03-31-2025 End: 03-31-2025 ambulatory Dennis [place] Facility:[facility] Start: 03-28-2025 End: 03-28-2025 Patient encounter procedure ROWAN Madden -Pulmonary Services/Neurology Work Phone: Start: 03-28-2025 End: 03-28-2025 ambulatory Dennis [place] Facility:[facility] Start: 03-24-2025 Non-patient / Non-visit Dr. Mitch Ramey own DO -[facility] Start: 03-24-2025 End: 03-24-2025 ambulatory Alexus Sven DO Work Phone: [facility] Work Phone: Start: 03-24-2025 End: 03-24-2025 Patient encounter procedure ROWAN Madden -Pulmonary Services/Neurology Work Phone: Start: 03-24-2025 End: 03-24-2025 ambulatory Dennis Claudine Facility:[facility] Start: 03-22-2025 End: 03-22-2025 ambulatory Alexus Sven DO Work Phone: [facility] Work Phone: Start: 03-22-2025 End: 03-22-[address] Dennis Hamm MD -Ultrasound [facility] Work Phone: Start: 03-22-2025 End: 03-22-2025 ambulatory Dennis Hamm Facility:[facility] Start: 03-17-2025 End: 03-17-2025 ambulatory Alexus Monroynger DO Work Phone: [facility] Work Phone: Start: 03-17-2025 End: 03-17-2025 Patient encounter procedure PASTRY BAKER Rachel Madden -Cat Scan, [facility] Work Phone: Start: 03-16-2025 End: 03-16-[address] Dennis Hamm MD -[facility] Work Phone: Start: 03-16-2025 End: 03-17-2025 ambulatory Dennis Hamm Facility:[facility] Start: 03-10-2025 End: 03-10-2025 ambulatory Dennis Hamm MD Work Phone: [facility] Comment on above: Allied Health Visit (Medication Adherence Outreach ) Start: 03-09-2025 ambulatory No Primary Car e Physician Facility:[facility] Start: 03-09-2025 Non-patient / Non-visit Pernell Da Silva nd DO -[facility] Start: 03-09-2025 End: 03-09-2025 Admission to same day surgery center Pernell Philippe DO -Endoscopy Work Phone: Start: 03-09-2025 End: 03-09-2025 ambulatory No Primary Care Physician Facility:[facility] Start: 02-18-2025 End: 02-18-2025 ambulatory Cristhian Christensen DO Work Phone: Hematology/Oncology Comment on above: Monoclonal gammopath y (Primary Dx) Start: 02-18-2025 End: 02-18-2025 Patient encounter procedure Cristhian Christensen DO Work Phone: Hematology/Oncology Start: 02-10-2025 End: 02-10-2025 ambulatory No Pcp (Hist) [facility] Comment on above: Allied Health Visit (Medication Adherence Outreach/) Start: 02-08-2025 End: 02-08-2025 ambulatory No Pcp (Hist) [facility] Comment on above: Allied Health Visit (Medication Adherence Outreach/) Start: 02-02-2025 End: 02-02-2025 Patient encounter procedure ROWAN Madden -[facility] Work Phone: Start: 02-02-2025 End: 02-02-2025 ambulatory Jake Conwayjaycee Facility:[facility] Start: 01-05-2025 End: 01-05-2025 ambulatory Alexus Machuca DO Work Phone: [facility] Work Phone: Start: 01-05-2025 End: 01-05-2025 Patient encounter procedure Pernell Philippe DO -Laboratory, Specimen Work Phone: Start: 01-05-2025 End: 01-05-2025 ambulatory Pernell Philippe Facility:[facility] Start: 12-28-2024 End: 12-28-2024 Patient encounter procedure Pernell Philippe DO -Laboratory Work Phone: Start: 12-28-2024 End: 12-28-2024 Patient encounter procedure Pernell Philippe DO -[facility] Work Phone: Start: 12-28-2024 End: 12-28-2024 ambulatory Alexus Machuca YOLIE Facility:[facility] Start: 12-28-2024 End: 12-28-2024 ambulatory Pernell Philippe Facility:[facility] Start: 12-17-2024 End: 12-17-2024 [facility] Start: 12-17-2024 End: 12-17-2024 Patient encounter procedure Iraida Page MA [facility] [place] Comment on above: Population Health Na vigation Outreach ([employer] Unknown PCP/) Start: 11-12-2024 End: 11-15-2024 Refill Christie Ramirez PA-C Work Phone: Orthopaedics Comment on above: Refill Request Start: 11-08-2024 End: 11-08-2024 Refill Christie Ramirez PA-C Work Phone: Orthopaedics Comment on above: Refill Request Start: 10-18-2024 End: 10-18-[address] Juarez Harris MD -Radiology, [facility] Work Phone: Start: 10-18-2024 End: 10-18-2024 ambulatory [facility] Facility:[facility] Start: 09-30-2024 End: 09-30-[address] Juarez Harris MD -Laboratory, Specimen Work Phone: Start: 09-30-2024 End: 09-30-2024 ambulatory [facility] Facility:[facility] Start: 09-10-2024 End: 09-10-2024 ambulatory CRISTHIAN MISSAELI Facility:[facility] Start: 09-10-2024 End: 09-10-2024 Office outpatient visit 15 minutes Juarez Ball MD Work Phone: [facility] Comment on above: Sore throat (Primary Dx); Gastroesophageal reflux disease, unspecified whether esophagitis present Start: 08-17-2024 End: 08-17-2024 ambulatory Cristhian A Missaeli DO Work Phone: Hematology/Oncology Comment on above: Monoclonal gammopath y (Primary Dx) Start: 08-17-2024 End: 08-17-2024 Patient encounter procedure Cristhian A Masci DO Work Phone: Hematology/Oncology Start: 08-17-2024 End: 04-18-2025 Telephone encounter Cristhian A Masci DO Work Phone: Hematology/Oncology Comment on above: Returning Patient's Call Start: 08-10-2024 End: 08-10-2024 Refill Franklin Mirza PA-C Work Phone: [facility] Comment on above: Refill Request Patient appt/questio n Start: 2024 End: 2024 Patient encounter procedure Orville Tavares APRN.CNP Work Phone: Hematology/Oncology Start: 2024 End: 2024 ambulatory Orville Tavares APRN.SCHOOL OFFICE ASSISTANT Work Phone: Hematology/Oncology Comment on above: Monoclonal gammopath y Start: 08-02-2024 End: 08-02-2024 Telephone encounter Cristhian Christensen DO Work Phone: Hematology/Oncology Comment on above: Patient Question Start: 07-29-2024 End: 07-29-2024 ambulatory CRISTHIAN CHRISTENSEN Facility:[facility] Start: 07-29-2024 End: 07-29-2024 ambulatory CRISTHIAN CHRISTENSEN Facility:[facility] Start: 07-29-2024 End: 07-29-2024 Subsequent hospital visit by physician Mri Radio [facility] (I-Stat/1.5t) Work Phone: Radiology Comment on above: Monoclonal gammopath y [D47.2] Start: 07-06-2024 End: 07-08-2024 Telephone encounter Sahra Moreno APRN.SCHOOL OFFICE ASSISTANT Work Phone: Family Medicine [place] Comment on above: Results Refill Request Start: 07-05-2024 End: 07-06-2024 Documentation procedure Mammography Coordinator [facility] Start: 07-05-2024 End: 07-06-2024 Letter encounter Mammography Coordinator [facility] Start: 07-02-2024 End: 07-02-2024 ambulatory HEMANTH TOVAR Facility:[facility] Start: 07-02-2024 End: 07-02-2024 Subsequent hospital visit by physician Screen Mammo [facility] Mammogram Comment on above: Encounter for screen ing mammogram for breast cancer [Z12.31] Start: 06-30-2024 End: 07-05-2024 ambulatory Hemanth Tovar MD Work Phone: Internal Medicine [facility] Start: 06-24-2024 End: 06-24-2024 Subsequent hospital visit by physician Kia [facility] Lugo Work Phone: Radiology Comment on above: Monoclonal gammopath y [D47.2] Start: 06-24-2024 End: 06-28-2024 ambulatory Cristhian Christensen DO Work Phone: Hematology/Oncology Comment on above: Monoclonal gammopath y (Primary Dx) Refill Request Start: 06-24-2024 End: 06-24-2024 Patient encounter procedure Cristhian Christensen DO Work Phone: Hematology/Oncology Start: 06-21-2024 Telephone encounter No Pcp ABEL Bar [facility] Comment on above: Patient Question Start: 06-08-2024 ambulatory Franklin Wali Juan Carlos on PA-C Work Phone: [facility] [place] Comment on above: Reestablish as your patient Reestablish as patie nt Start: 06-06-2024 Telephone encounter Cristhian hamlin DO Work Phone: Hematology/Oncology Comment on above: Results Start: 06-02-2024 End: 06-02-2024 ambulatory CRISTHIAN CHRISTENSEN Facility:[facility] Start: 06-02-2024 End: 06-02-2024 ambulatory Cristhian Christensen DO Work Phone: Hematology/Oncology Comment on above: Monoclonal gammopath y (Primary Dx); Iron deficiency anemia secondary to inadequate dietary iron intake Start: 06-02-2024 End: 06-02-2024 Patient encounter procedure Cristhian Christensen DO Work Phone: Hematology/Oncology Start: 06-01-2024 Telephone encounter Cristhian hamlin DO Work Phone: Hematology/Oncology Start: 04-21-2024 End: 04-21-2024 ambulatory PELON SKINNER Facility:[facility] Start: 04-21-2024 End: 04-21-2024 Patient encounter procedure Pelon Skinner MD Work Phone: General Surgery Comment on above: Multinodular goiter (nontoxic) (Primary Dx) Start: 04-12-2024 End: 04-12-2024 Patient encounter procedure Pelon Skinner MD Work Phone: General Surgery Comment on above: Multinodular goiter (nontoxic) (Primary Dx) Start: 02-23-2024 End: 02-23-2024 Patient encounter procedure Pelon Skinner MD Work Phone: General Surgery Comment on above: Multinodular goiter (nontoxic) (Primary Dx) Start: 02-13-2024 Telephone encounter No Pcp HYDRAULIC PLUMBER Int [facility] [place] Comment on above: Medication Request Start: 02-12-2024 End: 02-12-2024 ambulatory [facility] Work Phone: Start: 02-12-2024 End: 02-12-2024 Patient encounter procedure [facility] Work [facility] Start: 02-10-2024 End: 02-15-2024 ambulatory CAESAR MISHRA MD Facility:[facility] Start: 02-10-2024 End: 02-14-2024 Outreach Lab CAESAR MISHRA MD [facility] Start: 02-10-2024 End: 02-11-2024 ambulatory CAESAR MISHRA MD Facility:[facility] Start: 02-10-2024 End: 02-10-2024 Patient encounter procedure CAESAR MISHRA MD [facility] Start: 01-31-2024 ambulatory Azul Vega MA [facility] Start: 01-31-2024 Patient encounter procedure [facility] [place] Comment on above: Population Health Na vigation Outreach ([facility] Annual Wellness Visit ) Start: 01-14-2024 End: 01-14-2024 ambulatory [facility] Work Phone: Start: 01-14-2024 End: 01-14-2024 Patient encounter procedure [facility] Start: 01-08-2024 End: 01-08-2024 ambulatory [facility] Work Phone: Start: 01-08-2024 End: 01-08-2024 Patient encounter procedure [facility]-Ultrasound, [facility] Work Phone: Start: 12-31-2023 End: 12-31-2023 Patient encounter procedure [facility] Start: 12-17-2023 Refill Clarice Petersen MD Work Phone: [facility] Comment on above: Refill Request Start: 12-15-2023 Telephone encounter Sherie macdonald APRN.SCHOOL OFFICE ASSISTANT Work Phone: Pulmonary Medicine Comment on above: Appointment ([facility] CT Scan) Start: 12-11-2023 Telephone encounter Franklin FRAZIERC Work Phone: [facility] Comment on above: Insurance Authorizat ion Start: 12-06-2023 ambulatory Franklin WILLIS-C Work Phone: [facility] Comment on above: Trulicity prescripti on Start: 10-16-2023 Refill Barbie Ruiz MD Work Phone: Pulmonary Medicine Comment on above: Refill Request Start: 10-14-2023 End: 10-14-2023 Subsequent hospital visit by physician Mri Radio [facility] (I-Stat/1.5t) Work Phone: Radiology Comment on above: Syncope and collapse [R55] Start: 10-14-2023 End: 10-14-2023 Patient encounter procedure Sherie Melgoza APRN.SCHOOL OFFICE ASSISTANT Work Phone: Pulmonary Medicine Comment on above: Encounter for screen ing for lung cancer (Primary Dx); Tobacco use current Start: 09-30-2023 Telephone encounter Franklin FRAZIERC Work Phone: [facility] [place] Start: 09-29-2023 End: 09-29-2023 Patient encounter procedure Franklin FRAZIERC Work Phone: [facility] Comment on above: Syncope and collapse (Primary [...] of insulin (HCC) Start: 09-11-2023 ambulatory SAHRA PODLOGJUSTYN Facility :[facility] Start: 09-10-2023 ambulatory Clarice Petersen MD Work Phone: [facility] Comment on above: Syncope Start: 09-10-2023 End: 09-10-2023 Subsequent hospital visit by physician Xr [facility] Work Phone: Radiology Comment on above: Neck pain [M54.2] Start: 09-10-2023 End: 09-10-2023 Patient encounter procedure Sahra Moreno HYDRAULIC PLUMBER.SCHOOL OFFICE ASSISTANT Work Phone: [facility] Comment on above: Syncope and collapse (Primary Dx); Neck pain; Rib pain Start: 08-08-2023 Refill Franklin Rangel on PA-C Work Phone: [facility] Comment on above: Refill Request Start: 07-29-2023 ambulatory Franklin Rangel on PA-C Work Phone: [facility] Comment on above: Blood pressure meds Start: 07-29-2023 Telephone encounter Clarice Petersen MD Work Phone: [facility] Comment on above: Results Start: 07-28-2023 End: 07-28-2023 Nursing evaluation of patient and report Nurse Card Admin [facility] Work Phone: Cardiology Comment on above: Screening for ischem ic heart disease (Primary Dx) Start: 07-28-2023 End: 07-28-2023 Subsequent hospital visit by physician [facility] Work Phone: Nuclear Medicine Comment on above: Encounter for screen ing for cardiovascular disorders [Z13.6] Start: 07-22-2023 ambulatory Nurse Card Adm in [facility] Work Phone: Cardiology Comment on above: Stress Test Instruct ions for 07/28/23 Start: 07-22-2023 E-mail encounter fro m caregiver Nurse Card Admin [facility] Work Phone: [facility] Start: 06-24-2023 Refill Carlos Dickson MD Work Phone: Orthopaedics Comment on above: Refill Request Start: 05-27-2023 ambulatory Nurse Card Adm in [facility] Work Phone: Cardiology Comment on above: Stress Test Instruct ions for 06/02/23 Start: 05-27-2023 E-mail encounter fro m caregiver Nurse Card Admin [facility] Work Phone: [facility] Start: 05-25-2023 ambulatory Clarice Petersen MD Work Phone: Family [facility] Comment on above: Blood Pressure Start: 05-19-2023 Refill Clarice Petersen MD Work Phone: Family [facility] Comment on above: Refill Request Start: 05-01-2023 End: 05-01-2023 Patient encounter procedure Franklin Wali Mirza PA-C Work Phone: [facility] Comment on above: Essential hypertensi on (Primary Dx) Start: 04-28-2023 End: 04-28-2023 Patient encounter procedure Carlos Dickson MD Work Phone: Orthopaedics Comment on above: Shoulder impingement (Primary Dx); Calcific tendonitis of right shoulder; Sternoclavicular joint pain, right Start: 04-18-2023 Refill Clarice Petersen MD Work Phone: Family [facility] Comment on above: Refill Request Start: 03-27-2023 End: 03-27-2023 Subsequent hospital visit by physician Xr [facility] Kevin Work Phone: Radiology Comment on above: Chronic right should er pain [M25.511, G89.29] Start: 03-25-2023 End: 03-25-2023 Subsequent hospital visit by physician Screen Mammo [facility] Mammogram Comment on above: Screening breast exa mination [Z12.39] Start: 03-21-2023 Refill Clarice Petersen MD Work Phone: [facility] Comment on above: Refill Request Start: 02-27-2023 End: 02-27-2023 Subsequent hospital visit by physician [facility] Work Phone: Radiology Comment on above: Elevated lipase [R74 .8] Start: 02-21-2023 Telephone encounter Clarice Petersen MD Work Phone: [facility] Comment on above: Patient Update Start: 02-20-2023 Telephone encounter Clarice Petersen MD Work Phone: [facility] Comment on above: Results Start: 02-17-2023 End: 02-17-2023 Patient encounter procedure Clarice Petersen MD Work Phone: [facility] Comment on above: Laceration of right middle finger without foreign body without damage to nail, subsequent encounter (Primary Dx) Start: 02-05-2023 End: 02-05-2023 [facility] Start: 01-27-2023 Telephone encounter Clarice Petersen MD Work Phone: [facility] Comment on above: Results Start: 01-25-2023 Orders Only M Wali Juan Carlos on PA-C Work Phone: [facility] Comment on above: Elevated blood prote in (Primary Dx); Elevated lipase; Elevated lymphocytes Start: 01-24-2023 Refill Clarice Petersen MD Work Phone: [facility] Comment on above: Refill Request Start: 01-23-2023 End: 01-23-2023 Telemedicine consultation with patient Clarice Petersen MD Work Phone: [facility] Start: 01-23-2023 End: 01-23-2023 Telephone encounter Clarice Petersen MD Work Phone: [facility] Comment on above: Future Appointment ( virtual apt today 01/23/23) Epigastric pain ([facility] iwona Dx); Major depressive disorder, recurrent 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); Type 2 diabetes mellitus with diabetic neuropathy, without long-term current use of insulin (HCC); Chronic obstructive pulmonary disease, unspecified COPD type (HCC); Nausea; Diarrhea, unspecified type Start: 01-12-2023 End: 01-12-2023 Emergency department patient visit [facility] Start: 01-02-2023 ambulatory Franklin Wali le PA-C Work Phone: [facility] Comment on above: Test results Start: 12-26-2022 End: 12-26-2022 Patient encounter procedure Franklni Mirza PA-C Work Phone: [facility] Comment on above: Essential hypertensi [...] 11-22-2022 Refill Clarice Petersen MD Work Phone: [facility] Comment on above: Refill Request Start: 10-25-2022 Refill Clarice Petersen MD Work Phone: [facility] Comment on above: Refill Request Start: 09-11-2022 ambulatory Nurse Card Adm in [facility] Work Phone: Cardiology Comment on above: Stress Test Instruct ions Start: 09-11-2022 E-mail encounter fro m caregiver Nurse Card Admin [facility] Work Phone: [facility] Start: 08-08-2022 End: 08-08-2022 Patient encounter procedure Franklin Mirza PA-C Work Phone: [facility] Comment on above: Chronic obstructive pulmonary disease, unspecified COPD type (HCC) (Primary Dx); Asthma with COPD (HCC); Pulmonary HTN (HCC); Tobacco abuse; Essential hypertension; Mixed hyperlipidemia; PAD (peripheral artery disease) (HCC); Type 2 diabetes mellitus with diabetic neuropathy, without long-term current use of insulin (HCC); Gastroesophageal reflux disease, unspecified whether esophagitis present; Lung nodules; Dysphagia, unspecified type; Degeneration of lumbar or lumbosacral intervertebral disc; Back pain, unspecified back location, unspecified back pain laterality, unspecified chronicity; Carpal tunnel 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; Acute pain of right shoulder; Acute pain of left shoulder; Severe episode of recurrent major depressive disorder, without psychotic features ([facility]); Hypercalcemia; Vitamin D deficiency; Need for influenza vaccination; Need for vaccination; Encounter for screening for osteoporosis; Encounter for screening for cardiovascular disorders; Chest pain, unspecified type; SVT (supraventricular tachycardia) ([facility]); Palpitations; Medicare annual wellness visit, initial Start: 07-05-2022 Refill Clarice Petersen MD Work Phone: [facility] Comment on above: Refill Request Start: 06-12-2022 End: 06-12-2022 Patient encounter procedure Clarice Petersen MD Work Phone: [facility] Comment on above: Type 2 diabetes riccardo itus with diabetic neuropathy, without long-term current use of insulin (HCC) (Primary Dx); Renal cyst; Mixed hyperlipidemia; Chronic obstructive pulmonary disease, unspecified COPD type ([facility]); Squamous cell skin cancer, nasal tip; Severe episode of recurrent major depressive disorder, without psychotic features ([facility]); Screening for HIV (human immunodeficiency virus) Start: 06-10-2022 End: 06-10-2022 Subsequent hospital visit by physician [facility] Work Phone: Radiology Comment on above: Acute pain of left s houlder [M25.512] Start: 06-03-2022 Telephone encounter Clarice Petersen MD Work Phone: [facility] [place] Comment on above: Patient Question; Or ders Start: 05-24-2022 End: 05-24-2022 Patient encounter procedure Clarice Petersen MD Work Phone: [facility] Comment on above: Acute pain of left s houlder (Primary Dx); Recurrent major depression in partial remission (HCC) Start: 05-03-2022 Refill Clarice Petersen MD Work Phone: [facility] Comment on above: Refill Request Start: 03-19-2022 ambulatory Clarice Petersen MD Work Phone: [facility] Comment on above: Blood sugars Start: 03-19-2022 End: 03-19-2022 Patient encounter procedure [facility] Start: 03-14-2022 End: 03-14-2022 Subsequent hospital visit by physician Fran Salcido MD Work Phone: [facility] Comment on above: History of gastric p olyp [Z87.19] Start: 03-13-2022 Telephone encounter Clarice Petersen MD Work Phone: [facility] Comment on above: Orders Start: 03-13-2022 End: 03-13-2022 Subsequent hospital visit by physician Screen Mammo [facility] Mammogram Comment on above: Canceled (Pt cx: Res cheduled) Start: 03-12-2022 End: 03-12-2022 Patient encounter procedure Clarice Petersen MD Work Phone: [facility] Comment on above: Type 2 diabetes riccardo itus with diabetic neuropathy, without long-term current use of insulin (HCC) (Primary Dx); Mixed hyperlipidemia; Pulmonary HTN (HCC); Hyperkalemia; Screening breast examination Start: 03-06-2022 Refill Clarice Petersen MD Work Phone: [facility] Comment on above: Refill Request Start: 02-28-2022 End: 02-28-2022 ambulatory Respiratory Therapist [facility] Work Phone: Pulmonary Medicine Comment on above: Spirometry Start: 02-28-2022 End: 02-28-2022 Patient encounter procedure Respiratory Therapist [facility] Work Phone: [facility] Comment on above: Mild [...] End: 02-06-2022 Subsequent hospital visit by physician Us [facility] Mob 2 Work Phone: Radiology Comment on above: Renal cyst [N28.1] Start: 02-05-2022 Refill Clarice Petersen MD Work Phone: [facility] Comment on above: Refill Request Start: 02-04-2022 Telephone encounter Clarice Petersen MD Work Phone: [facility] Comment on above: Results Erroneous encounter- disregard Start: 01-24-2022 End: 01-24-2022 Subsequent hospital visit by physician Xr [facility] [place] Work Phone: Radiology Comment on above: Rib pain [R07.81] Start: 09-19-2021 End: 09-19-2021 Subsequent hospital visit by physician Xr [facility] Work Phone: Radiology Comment on above: Hip injury, initial encounter [S79.919A] Start: 12-24-2017 End: 12-24-2017 Ambulatory [facility] Procedures Date Procedure Procedure Detail Performing Clinician Start: 08-13-2025 Plain chest X-ray Dr. Nathan Hamm MD Work Phone: Start: 08-13-2025 Ct abdomen & pelvis w/contrast material Dr. Dennis Hamm MD Work Phone: Start: 08-13-[address] Dennis Hamm MD Work Phone: Start: 08-12-2025 X-ray of cervical spine Dr. Dennis Hamm MD Work Phone: Start: 08-12-2025 Plain Radiography of Thoracic Spine Dr. Dennis Hamm MD Work Phone: Start: 08-12-2025 X-ray of lumbosacral spine Dr. Dennis Hamm MD Work Phone: Start: 07-28-2025 Radiologic exam ches t [address] Dennis Hamm MD Work Phone: Start: 07-20-2025 Gram stain microscopy D mary Hamm MD Work Phone: Start: 07-20-2025 End: 07-20-[address] Dennis corral MD Work Phone: Start: 07-14-2025 Urine microalbumin/creatinine ratio measurement Rachel Howellmaikel PASTRY BAKER-C Work Phone: Start: 07-14-2025 Vitamin D, 25-hydrox y measurement Rachel Howellmaikel PASTRY BAKER-C Work Phone: Comment on above: Vitamin D StatusDefi ciency: <20 ng/mL (50nmol/L)Insufficiency: 20-30 ng/mL (50-75 nmol/L)Sufficiency: 30-100 ng/mL (75-250 nmol/L)Toxicity: >100 ng/mL (>250 nmol/L) Start: 07-08-2025 Screening mammography L shaista Howellmaikel PASTRY BAKER-C Work Phone: Start: 07-05-2025 Plain X-ray of shoulder Rachel Daljitsonmaikel PASTRY BAKER-C Work Phone: Start: 06-21-2025 Gram stain microscopy [...] Work Phone: Start: 01-05-2025 Lactoferrin measurement Alexus Machuca [facility] Work Phone: Start: 12-28-2024 Albumin/Globulin ratio Alexus Machuca [facility] Work Phone: Start: 12-28-2024 Alternaria alternata RAST Alexus Machuca [facility] Work Phone: Start: 12-28-2024 Antibody measurement Arash Machuca [facility] Work Phone: Comment on above: The atypical pANCA p attern has been observed in asignificant percentage of patients with ulcerative colitis,primary sclerosing cholangitis and autoimmune hepatitis. Start: 12-28-2024 Antibody to centrome re measurement Alexus Machuca [facility] Work Phone: Comment on above: Previous reported re sult: TNP AIEdited by: INFCE on 01/03/25:0907 AMENDED REPORT 01/03/25 0907 ANTI-CENT B previously reported as: Test not performed Start: 12-28-2024 Antibody to extracta ble nuclear antigen measurement Alexus Machuca [facility] Work Phone: Comment on above: Previous reported re sult: TNP AIEdited by: INFCE on 01/03/25:0907 AMENDED REPORT 01/03/25 0907 GRANGER Ab previously reported as: Test not performed Start: 12-28-2024 Antibody to SOHEILA-1 measurement Alexus Sven [facility] Work Phone: Comment on above: Previous reported re sult: TNP AIEdited by: INFCE on 01/03/25:0907 AMENDED REPORT 01/03/25 0907 ANTI-SOHEILA previously reported as: Test not performed Start: 12-28-2024 Antibody to lupus La protein measurement Alexus Sven [facility] Work Phone: Comment on above: Previous reported re sult: TNP AIEdited by: INFCE on 01/03/25:0907 AMENDED REPORT 01/03/25 0907 Anti-SS-B previously reported as: Test not performed Start: 12-28-2024 Antibody to SS-A measurement Alexus Monroynger DO Work Phone: Comment on above: Previous reported re sult: TNP AIEdited by: BIA on 01/03/25:0907 AMENDED REPORT 01/03/25906 Anti-SS-A previously reported as: Test not performed Start: 12-28-2024 Autoantibody measurement Alexus Bloomer DO Work Phone: Comment on above: Previous reported re sult: TNP AIEdited by: BIA on 01/03/25:0907 AMENDED REPORT 01/03/25906 ANTICHROMATIN previously [...] Work Phone: Comment on above: Performed at: [address] [id number] Director: [place] Poon PhD, Phone: [phone] at: [facility] [address] [id number] Director: Jerrell Napoles MD, Phone: [phone] Start: 12-28-2024 Measurement of C-ayden ctive protein using high sensitivity technique Alexus Bloomer DO Work Phone: Comment on above: C-Reactive [...] Work Phone: Comment on above: Performed at: [facility] [address] [id number] Director: [place] Poon PhD, Phone: [phone] at: [facility] [address] [id number] Director: Jerrell Napoles MD, Phone: [phone] Start: 12-28-2024 Plantain (Japanese) RAST Alexus Machuca DO Work Phone: Start: 12-28-2024 ARTIFICIAL BREEDING RANCH SUPERVISOR antibody measurement Alexus Machuca DO Work Phone: Comment on above: Previous reported re sult: TNP AIEdited by: BIA on 01/03/25:0907 AMENDED REPORT 01/03/25 0907 ARTIFICIAL BREEDING RANCH SUPERVISOR Ab previously reported as: Test not performed [...] crispin ow biopsies & aspirations Orville Tavares HYDRAULIC PLUMBER.SCHOOL OFFICE ASSISTANT Work Phone: Start: 07-29-2024 Mri pelvis w/o & w/contrast material Cristhian Christensen DO Work Phone: Start: 04-12-2024 US THYROID BIOPSY RI GHT (POC) SURG USE ONLY Pelon Skinner MD Work Phone: Start: 02-12-2024 Plain x-ray of pelvi s and lower extremity Start: 02-12-2024 Plain X-ray of shoulder Start: 02-12-2024 Radiologic examinati on of knee Start: 02-12-2024 X-ray of lumbar spin e, two or three views Start: 01-08-2024 US scan of thyroid Start: 10-14-2023 Mri brain brain stem w/o w/contrast material aShra Moreno HYDRAULIC PLUMBER.SCHOOL OFFICE ASSISTANT Work Phone: Start: 09-10-2023 Radex spine cervical 4 or 5 views Sahra Moreno HYDRAULIC PLUMBER.RADHA Work Phone: Start: 07-28-2023 Myocardial spect mul tiple studies M Wali Mirza PA-C Work Phone: Start: 04-28-2023 Arthrocentesis aspir &/inj major jt/bursa w/o us Carlos Dickson MD Work Phone: Start: 03-27-2023 Radex shoulder compl ete minimum 2 views Franklin Wali Mirza PA-C Work Phone: Start: 03-25-2023 [...] unilateral with pelvis 2-3 views Damien Stanley APRN.SCHOOL OFFICE ASSISTANT Work Phone: Start: 03-29-2021 Mammography Clarice Cotto [...] Detail Author Start: 02-05-2033 Urine microalbumin profile [facility] Start: 02-17-2026 End: 02-17-2026 ambulatory 02/17/2026 2:50 PM EDT Visit (SP) Office Hematology/Oncology [address] [place] [address] Cristhian Christensen, DO [address] [place] [id number] 1YR OV/LABS 4/3* Hematology/Oncolog y Comment on above: 1YR OV/LABS 4/3* Start: 02-10-2026 End: 02-10-2026 ambulatory 02/10/2026 11:30 AM EDT Results Only Kevin Malave [facility] [address] [place] [address] CBC/CMP/Myeloma labs (no urine) [facility] Comment on above: CBC/CMP/Myeloma labs (no urine) Start: 09-10-2025 BP Controlled (<130/80) BP Controlled (<130/80) [facility] Start: 08-29-2025 Radionuclide gastric emptying study Gastric Emptying Study [facility] Start: 08-29-2025 Patient encounter procedure Registered Clinical -Nuclear Medicine [facility] Work Phone: Start: 08-25-2025 MRI of cervical spine Spine Cervical (Routine) [facility] Start: 08-25-2025 Patient encounter procedure Registered Clinical -[facility] Work Phone: Start: 08-17-2025 BP Controlled (<130/80) BP Controlled (<130/80) [facility] in Start: 08-13-2025 [facility] Start: 08-12-2025 X-ray of cervical spine Cerv Spine 4 or 5 Views [facility] Start: 08-12-2025 XR Cervical spine 4 or 5 Views [facility] Start: 08-12-2025 Plain Radiography of Thoracic Spine Thoracic Spine 2 Views [facility] Start: 08-12-2025 X-ray of lumbosacral spine L/S Spine Min 4 Views [facility] Start: 08-12-2025 XR Spine Lumbar and Sacrum GE 4 Views [facility] Start: 08-12-2025 XR Thoracic spine Views [facility] Start: 2025 BP Controlled (<130/80) BP Controlled (<130/80) [facility] Start: 07-20-2025 End: 07-20-2025 Source specific culture [facility] Start: 07-11-2025 Influenza vaccination Influenza Vaccine (Season Ended) [facility] Start: 07-08-2025 MG Breast - bilateral Screening [facility] Start: 07-05-2025 Plain X-ray of shoulder Shoulder min 2 Views [facility] Start: 07-05-2025 XR Shoulder GE 2 Views [facility] Start: 07-02-2025 Screening for malignant neoplasm of breast Mammogram Screening [facility] Start: 06-27-2025 Tobacco use cessation education [facility] Start: 06-24-2025 BP Controlled (<130/80) BP Controlled (<130/80) [facility] Start: 06-10-2025 US scan of bladder [facility] Start: 06-02-2025 BP Controlled (<130/80) BP Controlled (<130/80) [facility] Start: 05-16-2025 End: 05-16-2025 Evaluation of diagnostic study results [facility] Start: 04-21-2025 BP Controlled (<130/80) BP Controlled (<130/80) [facility] Start: 04-06-2025 Patient referral [facility] Work Phone: Start: 03-31-2025 DXA Bone [Mass/Area] Bone density [facility] Start: 03-24-2025 Measurement of respiratory function [facility] Start: 03-16-2025 Patient referral [facility] Work Phone: Start: 03-09-2025 Colonoscopy w/biopsy single/multiple COLONOSCOPY AND BIOPSY [facility] Start: 03-09-2025 Egd insert guide wire dilator passage esophagus EGD GUIDE WIRE INSERTION [facility] Start: 03-09-2025 Egd transoral biopsy single/multiple EGD BIOPSY SINGLE/MULTIPLE [facility] Start: 03-09-2025 Patient discharge [facility] Start: 02-22-2025 BP Controlled (<130/80) BP Controlled (<130/80) [facility] Start: 02-18-2025 End: 02-18-2025 ambulatory 02/18/2025 2:30 PM EDT Visit (SP) Office Hematology/Oncology [address] [place] [address] Cristhian Christensen DO [address] [place] [address] 6 MO OV/LABS 4/3* Hematology/Oncolog y Comment on above: 6 MO OV/LABS 4/3* Start: 02-10-2025 End: 02-10-2025 ambulatory 02/10/2025 11:00 AM EDT Results Only [place] [facility] [address] [place] [address] CBC/CMP/Myeloma labs/24urine with Mspike* [facility] Comment on above: CBC/CMP/Myeloma labs/24urine with Mspike * Start: 01-11-2025 End: 01-11-2025 Patient encounter procedure Family Medicine Kevin Comment on above: est care - DO NOT CANCEL - ALREADY LUIS EDULED 4 TIMES - UNLESS DR PETERSEN TAKES PATIENT BACK est care - DO NOT CA NCEL - ALREADY RESCHEDULED 4 TIMES - UNLESS DR PETERSEN TAKES PATIENT BACK/ Please update PCP status at appt. Start: 01-05-2025 Giardia Antigen (PORTIA) Giardia Antigen (PORTIA) [facility] Start: 01-05-2025 Ova and Parasites Ova and Parasites [facility] Start: 01-05-2025 [facility] Start: 12-17-2024 End: 12-17-2024 Patient encounter procedure 12/17/2024 11:20 AM EST Office Visit Family [facility] [address] [facility] [place] [address] PodlogarSahra APRN.SCHOOL OFFICE ASSISTANT [address] [place] [address] est care physical r/s from 08/02/24 Family [facility] Comment on above: est care physical r/s from 08/02/24 Start: 11-10-2024 Advance Directive Discussion Advance Directive Discussion [facility] Start: 10-14-2024 BP Controlled (<130/80) BP Controlled (<130/80) [facility] Start: 09-29-2024 3 comp foot exam completed Diabetic Foot Exam [facility] Start: 09-29-2024 Annual PCP Team Chronic Disease Visit Annual PCP Team Chronic Disease Visit [facility] Start: 09-29-2024 Diabetic foot examination Diabetic Foot Exam [facility] Start: 09-29-2024 Hepatitis B surface antibody level LDL Cholesterol [facility] Start: 09-10-2024 Annual PCP Team Chronic Disease Visit Annual PCP Team Chronic Disease Visit [facility] Start: 09-01-2024 End: 09-01-2024 Patient encounter procedure 09/01/2024 10:40 AM EDT Office Visit Family Medicine [facility] [address] [facility] [place] [address] Hemanth Tovar MD [address] [facility] [place] [address] [facility] Comment on above: est care Start: 08-17-2024 End: 08-17-2024 ambulatory 08/17/2024 4:00 PM EDT Visit (SP) Office Hematology/Oncology [address] [facility] [place] [address] Cristhian Christensen, [address] [place] [address] OV/MRI 07/29/BMBX 08/05* Hematology/Oncolog y Comment on above: OV/MRI 07/29/BMBX 08/05* Start: 2024 End: 2024 ambulatory [facility] Comment on above: CBC/Troponin/BNP* CBC/TROPONIN/BNP/BMB X/PBSX2* Start: 08-02-2024 End: 08-02-2024 Patient encounter procedure 08/02/2024 12:20 PM EDT Office Visit Family Medicine [place] [address] [place] [address] Sahra Moreno APRN.SCHOOL OFFICE ASSISTANT [address] [place] [address] [facility] Kevin Comment on above: est care Start: 07-29-2024 End: 07-29-2024 Patient encounter procedure Radiology Comment on above: Monoclonal gammopathy [D47.2] Start: 07-11-2024 Influenza vaccination Influenza Vaccine (#1) [facility] Start: 06-24-2024 End: 06-24-2024 ambulatory 06/24/2024 9:50 AM EDT Visit (SP) Office Hematology/Oncology [address] [place] [address] Cristhian Christensen, DO [address] [place] [address] OV/LABS 06/02* Hematology/Oncolog y Comment on above: OV/LABS 06/02* Start: 06-22-2024 End: 06-22-2024 ambulatory 06/22/2024 9:30 AM EDT Visit (SP) Office Hematology/Oncology [address] [place] [address] Cristhian Christensen, DO [address] [place] [address] OV/LABS 06/02* Hematology/Oncolog y Comment on above: OV/LABS 06/02* Start: 06-02-2024 End: 09-01-2024 [id number]-8-Latrzqtyacagm [Mass/volume] in Serum or Plasma [facility] Comment on above: Expected: 06/02/2024, Expires: Start: 06-02-2024 End: 09-01-2024 Ferritin [Mass/volume] in Serum or Plasma [facility] Comment on above: Expected: 06/02/2024, Expires: Start: 06-02-2024 End: 09-01-2024 Iron and Iron binding capacity panel - Serum or Plasma [facility] Comment on above: Expected: 06/02/2024, Expires: Start: 06-02-2024 End: 09-01-2024 MONOCLONAL PROTEIN, SERUM (BLOOD) [facility] Work Phone: Comment on above: Expected: 06/02/2024, Expires: Start: 06-02-2024 End: 09-01-2024 PROTEIN ELECTROPHORESIS SERUM W/INTERP [facility] Comment on above: Expected: 06/02/2024, Expires: 4 Start: 06-02-2024 End: 09-01-2024 SERUM VISCOSITY [facility] Comment on above: Expected: 06/02/2024, Expires: 4 Start: 05-01-2024 ANNUAL PCP TEAM CHRONIC DISEASE VISIT ANNUAL PCP TEAM CHRONIC DISEASE VISIT [facility] Start: 05-01-2024 BP CONTROLLED (<130/80) BP CONTROLLED (<130/80) [facility] in Start: 05-01-2024 Hepatitis B surface antibody level LDL CHOLESTEROL [facility] Start: 04-21-2024 End: 04-21-2024 Patient encounter procedure 04/21/2024 2:00 PM EDT Office Visit General Surgery [address] [place], [place] [id number] Pelon Skinner MD [address] [place], [place] [id number] Follow up General Surgery Comment on above: Follow up Start: 04-02-2024 Glaucoma screening Dilated Retinal Exam [facility] Start: 04-02-2024 Hepatitis C antibody, confirmatory test DILATED RETINAL EXAM [facility] Start: 03-29-2024 Hemoglobin A1c measurement HbA1C [facility] Start: 03-29-2024 Hemoglobin A1c/Hemoglobin.total in Blood HbA1C [facility] Start: 03-28-2024 BP CONTROLLED (<130/80) BP CONTROLLED (<130/80) [facility] Start: 03-27-2024 3 comp foot exam completed DIABETIC FOOT EXAM [facility] Start: 03-27-2024 ANNUAL PCP TEAM CHRONIC DISEASE VISIT ANNUAL PCP TEAM CHRONIC DISEASE VISIT [facility] Start: 03-27-2024 HIV SCREENING HIV SCREENING [facility] Comment on above: Postponed from 1975 (Declined at t his time) Start: 03-27-2024 Zoledronic acid therapy ALPHA-1 ANTITRYPSIN DEFICIENCY SCREENING [facility] Comment on above: Postponed from 1987 (Declined at t his time) Start: 03-25-2024 Mammography [facility] Start: 03-25-2024 Screening for malignant neoplasm of breast Mammogram Screening [facility] Start: 04-10-2024 ANNUAL PCP TEAM CHRONIC DISEASE VISIT ANNUAL PCP TEAM CHRONIC DISEASE VISIT [facility] Start: 02-18-2024 BP CONTROLLED (<130/80) BP CONTROLLED (<130/80) [facility] Start: 01-24-2024 ANNUAL PCP TEAM CHRONIC DISEASE VISIT ANNUAL PCP TEAM CHRONIC DISEASE VISIT [facility] Start: 12-31-2023 End: 03-31-2024 Lipid 1996 panel - Serum or Plasma LIPID PANEL BASIC Lab Routine Mixed hyperlipidemia Hypertriglyceridemia Expected: 12/31/2023, Expires: 03/31/2024 [facility] Work Phone: Comment on above: Expected: 12/31/2023, Expires: 4 Start: 12-26-2023 ANNUAL PCP TEAM CHRONIC DISEASE VISIT ANNUAL PCP TEAM CHRONIC DISEASE VISIT [facility] Start: 12-26-2023 BP CONTROLLED (<130/80) BP CONTROLLED (<130/80) [facility] Start: 12-26-2023 Hepatitis B screening URINE ALBUMIN:CREATININE RATIO [facility] Start: 12-26-2023 Hepatitis B surface antibody level LDL CHOLESTEROL [facility] Start: 11-10-2023 Advance Directive Discussion Advance Directive Discussion [facility] Start: 10-31-2023 Hemoglobin A1c/Hemoglobin.total in Blood HBA1C [facility] Start: 09-29-2023 End: 12-29-2023 Hemoglobin A1c in Blood [facility] Work Phone: Comment on above: Expected: 09/29/2023, Expires: 4 Start: 09-29-2023 End: 12-29-2023 Lipid 1996 panel - Serum or Plasma [facility] Work Phone: Comment on above: Expected: 09/29/2023, Expires: 4 Start: 09-19-2023 Shingrix Vaccine (2 of 2) Shingrix Vaccine (2 of 2) [facility] Start: 08-08-2023 ANNUAL PCP TEAM CHRONIC DISEASE VISIT ANNUAL PCP TEAM CHRONIC DISEASE VISIT [facility] Start: 08-08-2023 BP CONTROLLED (<130/80) BP CONTROLLED (<130/80) [facility] Start: 08-08-2023 Pneumococcal Vaccine: 50+ (2 of 2 - PCV) Pneumococcal Vaccine: 50+ (2 of 2 - PCV) [facility] Start: 08-08-2023 Pneumococcal Vaccine: 65+ (2 - PCV) Pneumococcal Vaccine: 65+ (2 - PCV) [facility] Start: 08-08-2023 Pneumococcal Vaccine: 65+ (2 of 2 - PCV) Pneumococcal Vaccine: 65+ (2 of 2 - PCV) [facility] Start: 08-08-2023 PNEUMOCOCCAL: 65+ (2 - PCV) PNEUMOCOCCAL: 65+ (2 - PCV) [facility] Start: 08-08-2023 SHINGRIX VACCINE (1 of 2) SHINGRIX VACCINE (1 of 2) [facility] Comment on above: Postponed from 2007 (Insurance Cov erage) Start: 07-11-2023 Influenza vaccination [facility] Start: 06-25-2023 Hemoglobin A1c/Hemoglobin.total in Blood HBA1C [facility] Start: 06-12-2023 ANNUAL PCP TEAM CHRONIC DISEASE VISIT ANNUAL PCP TEAM CHRONIC DISEASE VISIT [facility] Start: 05-24-2023 ANNUAL PCP TEAM CHRONIC DISEASE VISIT ANNUAL PCP TEAM CHRONIC DISEASE VISIT [facility] Start: 04-09-2023 Hepatitis C antibody, confirmatory test DILATED RETINAL EXAM [facility] Comment on above: Postponed from 02/12/2023 (Currently [facility] Start: 03-13-2023 Mammography MAMMOGRAM [facility] Start: 03-12-2023 ANNUAL PCP TEAM CHRONIC DISEASE VISIT ANNUAL PCP TEAM CHRONIC DISEASE VISIT [facility] Start: 02-12-2023 Hepatitis C antibody, confirmatory test DILATED RETINAL EXAM [facility] Start: 01-27-2023 End: 03-29-2023 Calcium.ionized [Moles/volume] in Blood CALCIUM IONIZED BLOOD Lab Routine Hypercalcemia Elevated lipase Expected: 01/27/2023, Expires: 03/29/2023 [facility] Work Phone: Comment on above: Expected: 01/27/2023, Expires: Start: 01-27-2023 End: 03-29-2023 Lipase [Enzymatic activity/volume] in Serum or Plasma LIPASE BLD Lab Routine Hypercalcemia Elevated lipase Expected: 01/27/2023, Expires: 03/29/2023 [facility] Work Phone: Comment on above: Expected: 01/27/2023, Expires: 3 Start: 01-25-2023 End: 03-27-2023 CBC W Auto Differential panel - Blood CBC + DIFF Lab Routine Elevated lymphocytes Expected: 01/25/2023, Expires: 03/27/2023 [facility] Work Phone: Comment on above: Expected: 01/25/2023, Expires: 3 Start: 01-25-2023 End: 03-27-2023 Comprehensive metabolic 2000 panel - Serum or Plasma COMP METABOLIC PANEL Lab Routine Elevated lipase Expected: 01/25/2023, Expires: 03/27/2023 [facility] Work Phone: Comment on above: Expected: 01/25/2023, Expires: 3 Start: 01-25-2023 End: 03-27-2023 Lipase [Enzymatic activity/volume] in Serum or Plasma LIPASE BLD Lab Routine Elevated lipase Expected: 01/25/2023, Expires: 03/27/2023 [facility] Work Phone: Comment on above: Expected: 01/25/2023, Expires: 3 Start: 01-25-2023 End: 03-27-2023 PROTEIN ELECTROPHORESIS SERUM W/INTERP PROTEIN ELECTROPHORESIS SERUM W/INTERP Lab Routine Elevated blood protein Elevated lymphocytes Expected: 01/25/2023, Expires: 03/27/2023 [facility] Work Phone: Comment on above: Expected: 01/25/2023, Expires: 3 Start: 01-24-2023 3 comp foot exam completed DIABETIC FOOT EXAM [facility] Start: 01-24-2023 ANNUAL PCP TEAM CHRONIC DISEASE VISIT ANNUAL PCP TEAM CHRONIC DISEASE VISIT [facility] Start: 01-24-2023 Hepatitis B screening URINE ALBUMIN:CREATININE RATIO [facility] Start: 01-24-2023 Hepatitis B surface antibody level LDL CHOLESTEROL [facility] Start: 01-23-2023 End: 03-25-2023 CBC W Auto Differential panel - Blood CBC + DIFF Lab Routine Epigastric pain Expected: 01/23/2023, Expires: 03/25/2023 [facility] Work Phone: Comment on above: Expected: 01/23/2023, Expires: 3 Start: 01-23-2023 End: 03-25-2023 Comprehensive metabolic 2000 panel - Serum or Plasma COMP METABOLIC PANEL Lab Routine Epigastric pain Expected: 01/23/2023, Expires: 03/25/2023 [facility] Work Phone: Comment on above: Expected: 01/23/2023, Expires: 3 Start: 01-23-2023 End: 03-25-2023 Lipase [Enzymatic activity/volume] in Serum or Plasma LIPASE BLD Lab Routine Epigastric pain Expected: 01/23/2023, Expires: 03/25/2023 [facility] Work Phone: Comment on above: Expected: 01/23/2023, Expires: 3 Start: 01-12-2023 [facility] Start: 12-26-2022 End: 02-25-2023 Magnesium [Mass/volume] in Serum or Plasma MAGNESIUM BLD Lab Routine Gastroesophageal reflux disease without esophagitis Chronic antral gastritis Dysphagia, unspecified type Expected: 12/26/2022, Expires: 02/25/2023 [facility] Work Phone: Comment on above: Expected: 12/26/2022, Expires: 3 Start: 12-24-2022 Colonoscopy COLONOSCOPY [facility] Start: 12-24-2022 COLORECTAL CANCER SCREENING COLORECTAL CANCER SCREENING [facility] Start: 12-24-2022 Screening for malignant neoplasm of colon [facility] Start: 12-13-2022 End: 02-12-2023 ALBUMIN/CREAT RATIO RND UR ALBUMIN/CREAT RATIO RND UR Lab Routine Type 2 diabetes mellitus with diabetic neuropathy, without long-term current use of insulin (HCC) Expected: 12/13/2022, Expires: 02/12/2023 [facility] Work Phone: Comment on above: Expected: 12/13/2022, Expires: 3 Start: 12-13-2022 End: 06-12-2023 CBC W Auto Differential panel - Blood CBC + DIFF Lab Routine Type 2 diabetes mellitus with diabetic neuropathy, without long-term current use of insulin (HCC) Expected: 12/13/2022, Expires: 06/12/2023 [facility] Work Phone: Comment on above: Expected: 12/13/2022, Expires: Start: 12-13-2022 End: 06-12-2023 Comprehensive metabolic 2000 panel - Serum or Plasma COMP METABOLIC PANEL Lab Routine Type 2 diabetes mellitus with diabetic neuropathy, without long-term current use of insulin ([facility]) Expected: 12/13/2022, Expires: 06/12/2023 [facility] Work Phone: Comment on above: Expected: 12/13/2022, Expires: Start: 12-13-2022 End: 02-12-2023 Hemoglobin A1c in Blood HGB A1C Lab Routine Type 2 diabetes mellitus with diabetic neuropathy, without long-term current use of insulin ([facility]) Expected: 12/13/2022, Expires: 02/12/2023 [facility] Work Phone: Comment on above: Expected: 12/13/2022, Expires: Start: 12-13-2022 End: 02-12-2023 HIV 1+2 Ab [Presence] in Serum or Plasma by Immunoassay HIV 1 2 COMBO(AG/AB),WITH REFLEX TO DIFFERENTIATION Lab Routine Screening for HIV (human immunodeficiency virus) Expected: 12/13/2022, Expires: 02/12/2023 [facility] Work Phone: Comment on above: Expected: 12/13/2022, Expires: 3 Start: 12-13-2022 End: 06-12-2023 Lipid 1996 panel - Serum or Plasma LIPID PANEL BASIC Lab Routine Type 2 diabetes mellitus with diabetic neuropathy, without long-term current use of insulin ([facility]) Expected: 12/13/2022, Expires: 06/12/2023 [facility] Work Phone: Comment on above: Expected: 12/13/2022, Expires: Start: 12-11-2022 Hemoglobin A1c/Hemoglobin.total in Blood HBA1C [facility] Start: 11-10-2022 ADVANCE DIRECTIVE DISCUSSION ADVANCE DIRECTIVE DISCUSSION [facility] Start: 08-14-2022 Urine microalbumin profile DTAP,TDAP,TD (2 - Td or Tdap) [facility] Start: 2022 BONE DENSITY BONE DENSITY [facility] Start: 07-11-2022 Influenza vaccination INFLUENZA (#1) [facility] Start: 05-12-2022 End: 07-12-2022 Hemoglobin A1c/Hemoglobin.total in Blood HGB A1C Lab Routine Type 2 diabetes mellitus with diabetic neuropathy, without long-term current use of insulin (HCC) Expected: 05/12/2022, Expires: 07/12/2022 [facility] Work Phone: Comment on above: Expected: 05/12/2022, Expires: 2 Start: 04-26-2022 Hemoglobin A1c/Hemoglobin.total in Blood HBA1C [facility] Start: 03-29-2022 Mammography MAMMOGRAM [facility] Start: 02-18-2022 End: 04-20-2022 POTASSIUM BLD POTASSIUM BLD Lab Routine Hyperkalemia Expected: 02/18/2022, Expires: 04/20/2022 [facility] Work Phone: Comment on above: Expected: 02/18/2022, Expires: 2 Start: 10-02-2021 Hepatitis C antibody, confirmatory test DILATED RETINAL EXAM [facility] Start: 09-20-2020 Influenza vaccination Lung Cancer Screening [facility] Start: 09-20-2020 Screening for malignant neoplasm of lung Lung Cancer Screening [facility] Start: 2017 Hepatitis B Vaccine (1 of 3 - Risk 3-dose series) Hepatitis B Vaccine (1 of 3 - Risk 3-dose series) [facility] Start: 2017 RSV Vaccine (1 - 1-dose 60+ series) RSV Vaccine (1 - 1-dose 60+ series) [facility] Start: 2017 RSV Vaccine (1 - Risk 60-74 years 1-dose series) RSV Vaccine (1 - Risk 60-74 years 1-dose series) [facility] Start: 07-21-2016 FECAL OCCULT BLOOD FECAL OCCULT BLOOD [facility] Start: 07-21-2016 Screening for malignant neoplasm of colon Fecal Occult Blood [facility] Start: 09-16-2013 PNEUMOCOCCAL (2 - PCV) PNEUMOCOCCAL (2 - PCV) [facility] Start: 2007 SHINGRIX VACCINE (1 of 2) SHINGRIX VACCINE (1 of 2) [facility] Start: 2002 COLOGUARD (FIT-DNA) COLOGUARD (FIT-DNA) [facility] Start: [address] COLONOGRAPHY [facility] Start: 2002 Screening for malignant neoplasm of colon [facility] Start: 2002 SIGMOIDOSCOPY SIGMOIDOSCOPY [facility] Start: 1987 Zoledronic acid therapy ALPHA-1 ANTITRYPSIN DEFICIENCY SCREENING [facility] Start: 1976 SHINGRIX VACCINE (1 of 2) SHINGRIX VACCINE (1 of 2) [facility] Start: 1975 Anxiety Screening Anxiety Screening [facility] Start: 1975 BP Controlled (<130/80) BP Controlled (<130/80) [facility] Start: 1975 HIV SCREENING HIV SCREENING [facility] Start: 1962 COVID-19 VACCINE (#1) COVID-19 VACCINE (#1) [facility] Start: 1962 COVID-19 VACCINE (1) COVID-19 VACCINE (1) [facility] Start: 02-02-1958 COVID-19 VACCINE (#1) COVID-19 VACCINE (#1) [facility] BONE MARROW ANALYSIS BONE MARROW ANALYSIS Lab Routine Monoclonal gammopathy 2024 1:07 PM EDT [facility] Work Phone: BONE MARROW CHROMOSO ME ANAL BONE MARROW CHROMOSOME ANAL Lab Routine Monoclonal gammopathy 2024 1:07 PM EDT [facility] Cardiac event recording [facility] Cobalamin (Vitamin B 12) [Mass/volume] in Serum or Plasma [facility] End: 10-09-2024 CT BRAIN WO IVCON CT BRAIN WO IVCON Radiology STAT Syncope and collapse 1 Occurrences starting 09/10/2023 until 10/09/2024 [facility] Work Phone: Comment on above: 1 Occurrences starting 09/10/2023 until 10/09/2024 CT Chest [facility] End: 11-12-2024 CT LUNG SCREEN WO IVCON CT LUNG SCREEN WO IVCON Radiology Routine Encounter for screening for lung cancer Tobacco use current 1 Occurrences starting 10/14/2023 until 11/12/2024 [facility] Work Phone: Comment on above: 1 Occurrences starting 10/14/2023 until 11/12/2024 CYTOLOGY NON-INSPECTOR TIMERS CYTOLOGY NON-GY N Lab Routine Multinodular goiter (nontoxic) Ordered: 04/12/2024 [facility] Work Phone: Comment on above: Ordered: 04/12/2024 DBT Breast - bilater al screening CARLOS EDUARDO SCREENING W MIGUEL Radiology Routine Encounter for screening mammogram for breast cancer 07/02/2024 1:09 PM EDT [facility] Work Phone: End: 07-30-2025 DBT Breast - bilateral screening CARLOS EDUARDO SCREENING W MIGUEL Radiology Routine Encounter for screening mammogram for breast cancer 1 Occurrences starting 06/30/2024 until 07/30/2025 [facility] Work Phone: Comment on above: 1 Occurrences starting 06/30/2024 until 07/30/2025 DNA EXTRACTION BONE MARROW (BUFFY COAT) DNA EXTRACTION BONE MARROW (BUFFY COAT) Lab Routine Monoclonal gammopathy 2024 1:07 PM EDT [facility] DXA Bone [Mass/Area] Bone density [facility] End: 09-07-2023 Dxa bone density study 1/> sites axial skel DXA-AXIAL SKELETON Radiology Routine Encounter for screening for osteoporosis 1 Occurrences starting 08/08/2022 until 09/07/2023 [facility] Work Phone: Comment on above: 1 Occurrences starting 08/08/2022 until 09/07/2023 End: 09-10-2024 ECG COMPLETE ECG COMPLETE ECG Routine Syncope and collapse 1 Occurrences starting 09/10/2023 until 09/10/2024 [facility] Work Phone: Comment on above: 1 Occurrences starting 09/10/2023 until 09/10/2024 FISH FOR PLASMA CELL MYELOMA FISH FOR PLASMA CELL MYELOMA Lab Routine Monoclonal gammopathy 2024 1:07 PM EDT [facility] FLOW CYTOMETRY FOR LEUKEMIA/LYMPHOMA (FCLL) FLOW CYTOMETRY FOR LEUKEMIA/LYMPHOMA (FCLL) Lab Routine Monoclonal gammopathy 2024 1:07 PM EDT [facility] FLOW CYTOMETRY FOR LEUKEMIA/LYMPHOMA (FCLL) PERFORMABLE FLOW CYTOMETRY FOR LEUKEMIA/LYMPHOMA (FCLL) PERFORMABLE Lab Routine Monoclonal gammopathy 2024 1:07 PM EDT [facility] Giardia lamblia anti gen assay [facility] Lipid 1996 panel - Serum or Plasma [facility] MG Breast - bilatera l Screening [facility] MONOCLONAL PROT 24 U R W/INTERP MONOCLONAL PROT 24 UR W/INTERP Lab Routine Monoclonal gammopathy Ordered: 06/02/2024 [facility] Comment on above: Ordered: 06/02/2024 MR Cervical spine [facility] End: 07-28-2025 MR Cervical spine WO and W contrast IV MRI CERVICAL SPINE WO/W IVCON Radiology Routine Monoclonal gammopathy 1 Occurrences starting 06/28/2024 until 07/28/2025 [facility] Work Phone: Comment on above: 1 Occurrences starting 06/28/2024 until 07/28/2025 MR Lower Extremity Joint [facility] End: 07-28-2025 MR Lumbar spine WO and W contrast IV MRI LUMBAR SPINE WO/W IVCON Radiology Routine Monoclonal gammopathy 1 Occurrences starting 06/28/2024 until 07/28/2025 [facility] Comment on above: 1 Occurrences starting 06/28/2024 until 07/28/2025 End: 07-28-2025 MR Pelvis WO and W contrast IV MRI PELVIS ORTHO GENERAL WO/W IVCON Radiology Routine Monoclonal gammopathy 1 Occurrences starting 06/28/2024 until 07/28/2025 [facility] Comment on above: 1 Occurrences starting 06/28/2024 until 07/28/2025 End: 07-28-2025 MR Thoracic spine WO and W contrast IV MRI THORACIC SPINE WO/W IVCON Radiology Routine Monoclonal gammopathy 1 Occurrences starting 06/28/2024 until 07/28/2025 [facility] Comment on above: 1 Occurrences starting 06/28/2024 until 07/28/2025 NM CARDIAC PERF STRESS/PHARM NM CARDIAC PERF STRESS/PHARM Radiology Routine Encounter for screening for cardiovascular disorders Chest pain, unspecified type Ordered: 08/08/2022 [facility] Work Phone: Comment on above: Ordered: 08/08/2022 NM Heart Views W str ess and W radionuclide IV [facility] OUTSIDE VENDOR CARDI AC OUTPATIENT EXTENDED RHYTHM RECORDING (WITHOUT TELEMETRY) OUTSIDE VENDOR CARDIAC OUTPATIENT EXTENDED RHYTHM RECORDING (WITHOUT TELEMETRY) Holter Routine SVT (supraventricular tachycardia) (HCC) Palpitations Ordered: 08/08/2022 [facility] Work Phone: Comment on above: Ordered: 08/08/2022 Ova OR parasites identification [facility] Patient Education [facility] Work Phone: Patient referral [facility] Work Phone: PROT ELEC UR 24HR W/ M SPIKE (P) PROT ELEC UR 24HR W/M SPIKE (P) Lab Routine Monoclonal gammopathy Ordered: 06/02/2024 [facility] Comment on above: Ordered: 06/02/2024 PROT ELEC UR 24HR W/ M SPIKE AND INTERP PROT ELEC UR 24HR W/M SPIKE AND INTERP Lab Routine Monoclonal gammopathy Ordered: 06/02/2024 [facility] Comment on above: Ordered: 06/02/2024 Protein [Mass/time] in 24 hour Urine PROTEIN, 24 HOUR URINE Lab Routine Monoclonal gammopathy Ordered: 06/02/2024 [facility] Comment on above: Ordered: 06/02/2024 End: 04-11-2023 Screening mammography bi 2-view breast inc cad CARLOS EDUARDO SCREENING Radiology Routine Screening breast examination 1 Occurrences starting 03/12/2022 until 04/11/2023 [facility] Work Phone: Comment on above: 1 Occurrences starting 03/12/2022 until 04/11/2023 End: 04-12-2023 Screening mammography bi 2-view breast inc cad CARLOS EDUARDO SCREENING Radiology Routine Screening breast examination 1 Occurrences starting 03/13/2022 until 04/12/2023 [facility] Work Phone: Comment on above: 1 Occurrences starting 03/13/2022 until 04/12/2023 SPIROMETRY WITH DILA TOR IF OBSTRUCTED SPIROMETRY WITH DILATOR IF OBSTRUCTED PFT Routine Asthma, unspecified asthma severity, unspecified whether complicated, unspecified whether persistent 02/28/2022 10:19 AM EDT [facility] Work Phone: SURGICAL PATHOLOGY SURGICAL PATH OLOGY Lab Routine Gastroesophageal reflux disease without esophagitis Release Upon Ordering for 1 Occurrences starting 03/14/2022 [facility] Work Phone: Comment on above: Release Upon Ordering for 1 Occurrences starting 03/14/2022 Thyroid stimulating hormone measurement [facility] Tobacco use cessatio n education [facility] Urine microalbumin/creatinine ratio measurement [facility] End: 03-21-2024 US ABD RIGHT UPPER QUADRANT US ABD RIGHT UPPER QUADRANT Radiology Routine Elevated lipase 1 Occurrences starting 02/20/2023 until 03/21/2024 [facility] Work Phone: Comment on above: 1 Occurrences starting 02/20/2023 until 03/21/2024 US Heart [facility] US Kidney - bilatera l and Urinary bladder [facility] US scan of bladder [facility] US Thyroid gland [facility] Vitamin B12 measurement [facility] Vitamin D, 25-hydrox y measurement [facility] End: 07-24-2025 XR Bones Complete Survey Views XR BONE SURVEY ROUTINE Radiology Routine Monoclonal gammopathy 1 Occurrences starting 06/24/2024 until 07/24/2025 [facility] Work Phone: Comment on above: 1 Occurrences starting 06/24/2024 until 07/24/2025 XR Bones Complete Survey Views XR BONE SURVEY ROUTINE Radiology Routine Monoclonal gammopathy 06/24/2024 11:16 AM EDT [facility] End: 06-23-2023 XR SHOULDER GENERAL 3V OR MORE AP/TRUE AP/OTHER LEFT XR SHOULDER GENERAL 3V OR MORE AP/TRUE AP/OTHER LEFT Radiology Routine Acute pain of left shoulder 1 Occurrences starting 05/24/2022 until 06/23/2023 [facility] Work Phone: Comment on above: 1 Occurrences starting 05/24/2022 until 06/23/2023 [facility] Immunizations Immunization Date Immunization Notes Care Provider Fa selena 07-25-2023 influenza (HD-IIV4) vaccine, age 65+ yr, high dose, quadrivalent, PF (FLUZONE HIGH-DOSE) AILYN Mirza PA-C Work Phone: [facility] 07-25-2023 zoster vaccine recombinant AILYN Mirza PA-C Work Phone: [facility] 07-25-2023 influenza virus vacc ine, unspecified formulation Cristhian Christensen DO Work Phone: [facility] 02-05-2023 tetanus toxoid, redu kecia diphtheria toxoid, and acellular pertussis vaccine, adsorbed [facility] 08-08-2022 influenza, high-dose , quadrivalent vaccine (FLUZONE HIGH DOSE QUADRIVALENT) AILYN Mirza PA-C Work Phone: [facility] 08-08-2022 pneumococcal polysaccharide vaccine, 23 valent AILYN Mirza PA-C Work Phone: [facility] 08-08-2022 influenza virus vacc ine, unspecified formulation Nurse Wstr Work Phone: [facility] 07-17-2021 influenza, injectabl e, quadrivalent, preservative free Clarice Petersen MD Work Phone: [facility] 07-20-2020 influenza, injectabl e, quadrivalent, contains preservative Clarice Petersen MD Work Phone: [facility] Work Phone: 07-20-2020 influenza, injectabl e, quadrivalent, preservative free Clarice Petersen MD Work Phone: [facility] 08-27-2019 influenza, injectabl e, quadrivalent, preservative free Clarice Petersen MD Work Phone: [facility] 08-21-2019 influenza virus vacc ine, unspecified formulation Clarice Petersen MD Work Phone: [facility] 07-31-2018 influenza, injectabl e, quadrivalent, contains preservative Clarice Petersen MD Work Phone: [facility] 07-31-2018 influenza, injectabl e, quadrivalent, preservative free Clarice Petersen MD Work Phone: [facility] 08-24-2017 influenza, injectabl e, quadrivalent, preservative free Alexus Sven DO Work Phone: [facility] 08-24-2017 influenza, seasonal, injectable Clarice Petersen MD Work Phone: [facility] 07-31-2016 influenza, injectabl e, quadrivalent, contains preservative Clarice Petersen MD Work Phone: [facility] 07-31-2016 influenza, injectabl e, quadrivalent, preservative free Alexus Sven DO Work Phone: [facility] 08-10-2015 influenza, injectabl e, quadrivalent, contains preservative Clarice Petersen MD Work Phone: [facility] Work Phone: 08-10-2015 influenza, injectabl e, quadrivalent, preservative free Alexus Sven DO Work Phone: [facility] 08-01-2014 influenza, injectabl e, quadrivalent, preservative free Alexus Sven DO Work Phone: [facility] 08-01-2014 influenza, seasonal, injectable Clarice Petersen MD Work Phone: [facility] 10-27-2013 influenza virus vacc ine, unspecified formulation Clarice Petersen MD Work Phone: [facility] Work Phone: 09-16-2012 pneumococcal polysaccharide vaccine, 23 valent Clarice Petersen MD Work Phone: [facility] 08-14-2012 tetanus toxoid, redu kecia diphtheria toxoid, and acellular pertussis vaccine, adsorbed Clarice Petersen MD Work Phone: [facility] Payers Date Payer Category Payer Self-pay [id number] 2023 Medicare (Managed Care) [employer] [place] [id number] 2023 Private Health Insurance [facility] [id number] 2023 Unknown [id number] 2022 Medicaid [id number] 2022 Medicare [id number]. 1.13.159.2. [id number] 2017 Medicaid [employer] [id number] 2017-Present [phone] [address] [place] [address] Medicaid [id number]. [id number] 2017 Medicaid [id number]. 1.13.159.2. [id number] 2012 Medicaid [id number] 2012 Unknown SELF PAY INSURANCE [id number] 1957 Unknown [id number] 2.16.840.1.492446.3.579.2. 627 1957 Unknown [id number] 2.16.840.1.415821.3.579.2. 627 Unknown [id number] 2.16.840.1.219332.3.579.2. 462 Unknown [id number] 2.16.840.1.012059.3.579.2. 462 Unknown [id number] 2.16.840.1.719189.3.579.2. 462 Unknown [id number] 2.16.840.1.126566.3.579.2. 462 Unknown [id number] 2.16.840.1.695032.3.579.2. 462 Unknown [id number] 2.16.840.1.808561.3.579.2. 462 Unknown [id number] 2.16.840.1.906771.3.579.2. 462 Unknown [id number] 2.16.840.1.605092.3.579.2. 462 Unknown [id number] 2.16.840.1.746240.3.579.2. 462 Unknown [id number] 2.16.840.1.375433.3.579.2. 462 Unknown [id number] 2.16.840.1.342827.3.579.2. 462 Unknown [id number] 2.16.840.1.074795.3.579.2. 462 Unknown [id number] 2.16.840.1.912880.3.579.2. 462 Unknown [id number] 2.16.840.1.928249.3.579.2. 462 Unknown [id number] 2.16.840.1.261226.3.579.2. 462 Unknown [id number] 2.16.840.1.991911.3.579.2. 462 Unknown [id number] 2.16.840.1.886168.3.579.2. 462 Unknown [id number] 2.16.840.1.823051.3.579.2. 462 Unknown [id number] 2.16.840.1.255545.3.579.2. 462 Unknown [id number] 2.16.840.1.175515.3.579.2. 462 Unknown [id number] 2.16840.1.024654.3.579.2. 462 Unknown [id number] 2.840.1.863378.3.579.2. 462 Unknown [id number] 2.840.1.202403.3.579.2. 462 Unknown [id number] 2.840.1.974545.3.579.2. 462 Unknown [id number] 2.840.1.580293.3.579.2. 462 Unknown [id number] 2.840.1.497702.3.579.2. 462 Unknown [id number] 2.840.1.677750.3.579.2. 462 Unknown [id number] 2.840.1.117373.3.579.2. 462 Unknown [id number] 2.840.1.379178.3.579.2. 462 Unknown [id number] 2.16840.1.880845.3.579.2. 462 Unknown [id number] 2.16840.1.000756.3.579.2. 462 Unknown [id number] 2.16840.1.799957.3.579.2. 462 Unknown [id number] 2.16840.1.387931.3.579.2. 462 Unknown [id number] 2.16.840.1.831410.3.579.2. 462 Unknown [id number] 2.16.840.1.582716.3.579.2. 462 Unknown [id number] 2.16.840.1.996028.3.579.2. 462 Unknown [id number] 2.16.840.1.719915.3.579.2. 462 Unknown [id number] 2.16.840.1.332960.3.579.2. 462 Unknown [id number] 2.16.840.1.675061.3.579.2. 462 Unknown [id number] 2.16.840.1.592261.3.579.2. 462 Unknown [id number] 2.16.840.1.520404.3.579.2. 462 Unknown [id number] 2.16.840.1.829623.3.579.2. 462 Unknown [id number] 2.16.840.1.294639.3.579.2. 462 Unknown [id number] 2.16.840.1.340146.3.579.2. 462 Unknown [id number] 2.16.840.1.537481.3.579.2. 462 Unknown [id number] 2.16.840.1.611941.3.579.2. 462 Unknown [id number] 2.16.840.1.282964.3.579.2. 462 Social History Date Type Detail Facility Start: 06-20-2016 End: 08-13-2025 Tobacco smoking status NHIS Smokes tobacco daily [facility] Work Phone: Start: 1975 History of tobacco use Cigarette Smo ker [facility] Work Phone: Start: 06-20-2016 End: 03-19-2023 Cigarettes smoked current (pack per day) - Reported 0.5 [facility] Start: 06-20-2016 End: 10-14-2023 Tobacco use and exposure Smokeless tobacco non-user [facility] Work Phone: Start: 01-24-2022 End: 01-28-2022 Alcohol intake Lifetime non-drinker (finding) [facility] Start: 10-29-2021 End: 01-23-2023 History SDOH Alcohol Frequency 1 [facility] Start: 05-21-2016 Tobacco Comment As of 05/21/16 , Quit . Relapse after fall and closed head injury/concussion. [facility] Start: 1955 Sex Assigned At Female [facility] Start: 01-20-2022 End: 01-30-2022 Exposure to SARS-CoV-2 (event) Unable to assess [facility] Work Phone: Start: 02-28-2022 End: 08-08-2022 Tobacco Comment Former one ppd smoker [facility] Start: 01-14-2022 End: 08-08-2022 Exposure to SARS-CoV-2 (event) Not sure [facility] Start: 09-18-2020 End: 02-05-2023 Tobacco smoking status VTIS Unknown if ever smoked [facility] Start: 05-15-2018 None [facility] Start: 05-15-2018 Alone [facility] Start: 06-10-2018 Cigarettes [facility] Start: 06-11-2022 History SDOH Social Connections Phone 3 [facility] Start: 06-11-2022 End: 01-23-2023 History SDOH Social Connections Membership 2 [facility] Start: 06-11-2022 End: 01-23-2023 History SDOH Social Connections Living 5 [facility] Start: 06-11-2022 End: 01-23-2023 History SDOH Physical Activity DPW 0 [facility] Start: 01-23-2023 History SDOH Financial 4 [facility] Start: 01-23-2023 End: 03-19-2023 Social connection and isolation panel [facility] Do you belong to any clubs or organizations such as scientology groups, unions, fraternal or athletic groups, or school groups? No [facility] Are you now , , , , never or living with a partner? [facility] How often to you hav e a drink containing alcohol? Never [facility] How many standard drinks containing alcohol do you have on a typical day? Patient does not drink [facility] How hard is it for y ou to pay for the very basics like food, housing, medical care, and heating Not very hard [facility] Do you feel stress - tense, restless, nervous, or anxious, or unable to sleep at night because your mind is troubled all the time - these days [OSQ] Not at all [facility] (I/We) worried wheth er (my/our) food would run out before (I/we) got money to buy more. Sometimes true [facility] The food that (I/we) bought just didn't last, and (I/we) didn't have money to get more. Never true [facility] Start: 12-21-2019 Gender identity Identifies as female gender (finding) [facility] Start: 12-21-2019 Sexual orientation Heterosexual (fin jordin) [facility] Start: 02-10-2024 Tobacco smoking status Heavy t obacco smoker (finding) [facility] Start: 04-21-2024 End: 08-17-2024 Alcohol intake Ex-drinker (finding) [facility] How hard is it for y ou to pay for the very basics like food, housing, medical care, and heating Somewhat hard [facility] Do you feel stress - tense, restless, nervous, or anxious, or unable to sleep at night because your mind is troubled all the time - these days [OSQ] Only a little [facility] (I/We) worried wheth er (my/our) food would run out before (I/we) got money to buy more. Often true [facility] Start: 09-19-2021 Alcoholic beverage intake Current drinker of alcohol (finding) [facility] Start: 11-23-2015 Alcohol Comment Rarely. [facility] Start: 01-20-2025 Sex Female (finding) [facility] NEGATED: Highlighted row Not [facility] Medical Equipment Procedure Code Equipment Code Equipment Origin al Text Equipment Identifier Dates [id number], [id number], [id number], [id number], [id number] Start: 01-10-2021 End: 10-16-2023 Comment on above: [...] Start: 06-27-2025 Lancets (Accu-Ch ek Softclix Lancets) [facility] Start: 06-27-2025 Goals Date Patient Goal Desired Activity /State Functional Status Date Assessment Result Facility 05-25-2015 Are you deaf, or do you have serious difficulty hearing No 05/25/2015 11:21 AM Marylu De La Vega RN No [facility] 05-25-2015 Are you blind, or do you have serious difficulty seeing, even when wearing glasses Yes 05/25/2015 11:21 AM Marylu De La Vega RN Yes [facility] 05-25-2015 Do you have serious difficulty walking or climbing stairs Yes 05/25/2015 11:21 AM Marylu De La Vega RN Yes [facility] 05-25-2015 Do you have difficul ty dressing or bathing No 05/25/2015 11:21 AM Marylu De La Vega RN No [facility] 05-25-2015 Because of a physica l, mental, or emotional condition, do you have difficulty doing errands alone such as visiting a physician's office or shopping No 05/25/2015 11:21 AM Marylu De La Vega RN No [facility] Mental Status Date Assessment Result Facility 08-13-2025 Cognitive function Voice/Name [facility] Work Phone: 03-09-2025 Cognitive function Voice/Name [facility] Work Phone: 01-12-2023 Cognitive function Voice/Name [facility] Work Phone: 05-25-2015 Because of a physica l, mental, or emotional condition, do you have serious difficulty concentrating, remembering, or making decisions Yes 05/25/2015 11:21 AM EDT Marylu Lorenz RN Yes [facility] Clinical Notes 04-20-2019 to 08-16-2025 Note Date & Type Note Facility 08-16-2025 Discharge summary Note Date/Time August 16, 2025 3:59pm [facility] Physical Therapy [facility] [address] [place] [address] / REHABILITATION SERVICES DISCHARGE SUMMARY MR#: [id number] Acct: [id number] Name: ЮЛИЯ HAYDEN Rep #: [id number] : 1955 70 From: Alysia Lewis PT, Cert. MDT Referring Dr.: Dr. Conor Barros MD Status: REG R Insurance: [facility] MEDICAID Patient Information Patient Information: ЮЛИЯ HAYDEN was seen in my office for initial evaluation on 07/20/25. The following Plan of Care was established for this patient: POC Established Initial Frequency: 2x /Week Initial Duration: 4-6 Weeks Anticipated Interventions Patient/Client Instruction: Educate patient on: Condition, Plan of Care and Risk Factors For the Purpose of:: To improve self management Therapeutic Exercise to Include: Strength training, Postural training, Flexibilty training, Neuromotor development, Passive ROM, Active ROM and Scapular Strength/Stabilization For the Purpose of:: To decrease pain, To increase ROM, To improve muscle performance and motor function, To improve ability to perform ADL's, To increasetolerance to activity/condition/position, To improve ability of physical actionsfor home/community/work/leisure, To increase flexibility/ROM and To improve selfmanagement Manual Therapy Techniques to Include: Mobilization and Soft tissue mobilization For the Purpose of:: To decrease pain, To improve muscle performance and motor function, To improve ability to perform ADL's, To increase tolerance to activity/condition/position, To improve ability of physical actions for home/community/work/leisure, To decrease soft tissue restriction and To increaseflexibility/ROM Cryotherapy (ice pack, ice massage): Yes Thermo therapy (hot pack): Yes For the Purpose of:: To decrease pain, To decrease swelling/inflammation and To improve nutrient delivery to tissue Last Seen Last Seen: This patient was last seen in our office 07/21/25. Pertinent comments regardingtheir Physical therapy will appear below: It has been my pleasure to see this patient for a total of 1 visit (Initial Eval). This patient has not returned to Physical Therapy for more visits and is appropriate to return to MD for further follow-up as needed. At this point I will be discontinuing this patient from physical therapy. I would be happy to see this patient again in the future if found appropriate by the physician. Thank you! Alysia Lewis PT, Cert T Balance/Gait/Functional tests Balance/Special Test Scores Quick DASH Score: 50.0000 <Electronically signed by Cert. PASHA Howell PT> 08/16/25 1559 CC: Dr. Dennis Hamm MD; Dr. Conor Barros MD ~ [facility] Signed [facility] Work Phone: 1(870) 887-138610-07-2025 Discharge summary [facility] Physical Therapy [facility] [address] [place] [address]. [address] [place] [address] / REHABILITATION SERVICES DISCHARGE SUMMARY MR#: [id number] Acct: [id number] Name: ЮЛИЯ HAYDEN Rep #: [id number] : 1955 70 From: Cert. CHELSIE Howell PTT Referring Dr.: Dr. Conor Barros MD Status: REG R Insurance: [facility] MEDICAID Patient Information Patient Information: ЮЛИЯ HAYDEN was seen in my office for initial evaluation on 07/20/25. The following Plan of Care was established for this patient: POC Established Initial Frequency: 2x /Week Initial Duration: 4-6 Weeks Anticipated Interventions Patient/Client Instruction: Educate patient on: Condition, Plan of Care and Risk Factors For the Purpose of:: To improve self management Therapeutic Exercise to Include: Strength training, Postural training, Flexibilty training, Neuromotor development, Passive ROM, Active ROM and Scapular Strength/Stabilization For the Purpose of:: To decrease pain, To increase ROM, To improve muscle performance and motor function, To improve ability to perform ADL's, To increasetolerance to activity/condition/position, To improve ability of physical actionsfor home/community/work/leisure, To increase flexibility/ROM and To improve selfmanagement Manual Therapy Techniques to Include: Mobilization and Soft tissue mobilization For the Purpose of:: To decrease pain, To improve muscle performance and motor function, To improveability to perform ADL's, To increase tolerance to activity/condition/position, To improve ability of physical actions for home/community/work/leisure, To decrease soft tissue restriction and To incre aseflexibility/ROM Cryotherapy (ice pack, ice massage): Yes Thermo therapy (hot pack): Yes For the Purpose of:: To decrease pain, To decrease swelling/inflammation and To improve nutrient delivery to tissue Last Seen Last Seen: This patient was last seen in our office 07/21/25. Pertinent comments regardingtheir Physical therapy will appear below: It has been my pleasure to see this patient for a total of 1 visit (Initial Eval). This patient has not returned to Physical Therapy for more visits and is appropriate to return to MD for further follow-up as needed. At this point I will be discontinuing this patient from physical therapy. I would be happy to see this patient again in the future if found appropriate by the physician. Thank you! Alysia Lewis, PT, Cert MDT Balance/Gait/Functional tests Balance/Special Test Scores Quick DASH Score: 50.0000 08/16/25 1559 CC: Dr. Dennis Hamm MD; Dr. Conor Barros MD ~ [facility]10-04-2025 Discharge summary [facility] Medical Records Department [address] [place] [address] Emergency Department Summary 08/13/25 MR#: [id number] Acct: [id number] Name: ЮЛИЯ HAYDEN Rep #:[id number] : 1955 70 From: Carlos Jorgensen MD PCP: Dr. Dennis Hamm MD Status:REG ER Location: ED HPI History of Present Illness Chief Complaint: Chest Pain Informant: patient and EMS Narrative Narrative: Patient is a 70-year-old female with no significant PMHx presenting with chest pain, lightheadedness, and abdominal pain. - Reports episodes of chest pain and lightheadedness, with the chest pain preceding the lightheadedness. Tonight, started with chest discomfort about 3 hrs ago, followed by lightheadedness and the sensation that her heart rate was too slow. - Describes sensation of heart beating too slow and racing at times; usuallyfeels heart beatingfast enough to notice, but tonight felt it slowed way down. - Checked BP tonight when feeling poorly, which was 78 and her HR was 72 bpm. - Denies dyspnea or emesis since onset of symptoms tonight. - Has been experiencing frequent emesis over the past 3 weeks, with difficulty keeping food down but able to maintain fluid intake. - Yesterday, while sitting on the toilet, left-sided abdominal pain began, described as feeling like it was a rock, then passed out and woke up on the floor without apparent injury; denies straining for a bowel movement at that time. - Reports intermittent lower abdominal pain, primarily on the left side, for thepast 3 weeks, oftenassociated with emesis and sensations of heart skipping a beat. - Only episode of syncope occurred yesterday. - Denies hematochezia or melena. - Recently underwent a screening echocardiogram, which was reportedly normal. [facility] Medical History Right shoulder pain Left shoulder [...] History of stress test Dysphagia Depression Anxiety Home Medications ?Medication ?Instructions ?Recorded ?Last Taken ?Type famotidine 20 mg tablet 20 mg PO QDAY 11/08/2403/08 History fluticasone 250 mcg-salmeterol 50 1 inh inhalation BID 11/08/24 03/05/25 History mcg/dose blistr powdr for inhalation aspirin 81 mg tablet,delayed 81 mg PO QDAY 02/02/25 History release (Adult Low Dose Aspirin) clobetasol 0.05 % topical cream 1 g topical QDAY PRN r smooth #15 grams 03/16/25 Unknown Rx cholecalciferol (vitamin D3) 25 1,000 unit PO DAILY #9 0 caps 04/26/25 Unknown Rx mcg (1,000 unit) capsule trazodone 100 mg tablet 100 mg PO QHS sleep #90 tabs 04/26/25 Unknown Rx pantoprazole 40 mg tablet,delayed 40 mg PO QDAY #90 ta bs 05/09/25 Unknown Rx release denosumab 60 mg/mL subcutaneous 60 mg subcut [id number] #1 mL 05/24/25 Unknown Rx syringe (Prolia) blood sugar diagnostic (Accu-Chek #100 ea 06/27/25 Unk nown Rx Guide test strips) blood-glucose meter (Accu-Chek #1 ea 06/27/25 Unknown Rx Guide Glucose Meter) lancets (Accu-Chek Softclix #200 ea 06/27/25 Unknown R x Lancets) coenzyme Q10 100 mg capsule (Co 200 mg (2 x 100 mg) PO DAILY 07/28/25 Unknown Rx Q-10) supplement #180 caps furosemide 20 mg tablet 20 mg PO DAILY #90 tabs 07/11 07/04 Unknown Rx meloxicam 15 mg tablet 15 mg PO QDAY #90 tabs 07/28 Unknown Rx montelukast 10 mg tablet 10 mg PO QHS allergies #90 t abs 07/28/25 Unknown Rx atorvastatin 10 mg tablet (Lipitor) 10 mg PO QHS #30 t abs 08/11/25 Unknown Rx dulaglutide 1.5 mg/0.5 mL 1.5 mg (0.5 mL) subcut QWEEK #2 mL 08/11/25 Unknown Rx subcutaneous pen injector lisinopril 2.5 mg tablet 2.5 mg PO QDAY #30 tabs 01/04 Unknown Rx metformin 500 mg tablet 500 mg PO BID #180 tabs 01/04 Unknown Rx ondansetron 8 mg disintegrating 8 mg PO Q8H PRN nausea and 08/13/25 Unknown Rx tablet vomiting #20 tabs Allergy/AdvReac Type Severity Reaction Status Date / Time ciprofloxacin HCl (From Allergy Rash Verified 08/13/25 00:38 Cipro) clindamycin Allergy throat Verified 08/13/25 00:38 swelling-see comment section fluoxetine HCl (From Prozac) Allergy Rash Verified 08/13/25 00:38 metronidazole Allergy Anaphylaxis Verified 08/13/25 00:38 Penicillins Allergy Rash Verified 08/13/25 00:38 Sulfa (Sulfonamide Allergy Rash Verified 08/13/25 00:38 Antibiotics) adhesive AdvReac redness Verified 08/13/25 00:38 with bandaids amoxicillin trihydrate (From AdvReac thrush/yeast Verified 08/13/25 00:38 Augmentin) infection potassium clavulanate (From AdvReac thrush/yeast Verified 08/13/25 00:38 Augmentin) infection rosuvastatin AdvReac Diarrhea Verified 08/13/25 00:38 Family History Sister Colon polyps Hypertension Asthma Depression Melanoma Thyroid disorder Brother Colon polyps Parkinson disease Myocardial infarction Heart disease Mother Colon polyps Colon cancer COPD (chronic obstructive pulmonary disease) Arthritis Father Colon polyps Heart disease Myocardial infarction Grandmother Alcoholism Grandfather Diabetes Surgical History History of bladder surgery H/O cataract extraction S/P thyroid biopsy Hx of squamous cell carcinoma excision History of excision of mass (10/13/17) History of esophagogastroduodenoscopy (EGD) History of colonoscopy History of tonsillectomy History of cholecystectomy History of fusion of cervical spine (~2003) H/O: hysterectomy Social History adopted: No household members: none number of children: 3 current occupational 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 [employer] pets and animals: No Smoking Status: Current every day smoker tobacco type: cigarettes quit status: not considering quitting alcohol intake: never substance use type: does not use caffeine: Yes seatbelt use: always do you feel safe at home: Yes ROS ROS ED Constitutional Constitutional ED: Denies chills or fever(s) Eyes Eyes: Denies change in vision or diplopia ENT ENT ED: Denies rhinorrhea or sore throat Cardiovascular Cardiovascular: Reports as per HPI, chest pain, fatigue, lightheadedness, palpitations, racing heartbeat and syncope; Denies leg edema or radiating jaw, neck or arm pain Respiratory/Chest Respiratory/Chest: Denies cough or dyspnea Gastrointestinal Gastrointestinal: Reports abdominal pain, nausea and vomiting; Denies diarrhea Genitourinary Genitourinary ED: Denies dysuria or hematuria Musculoskeletal Musculoskeletal: Denies back pain or neck pain Integumentary Denies abscess or rash Neurologic Neurologic: Denies headache(s), paresthesias or weakness Psychiatric Psychiatric: Denies anxiety or suicidal thoughts EXAM Physical Exam Const Vital Signs: 08/13/25 00:34 08/13/25 00:44 08/13/25 00:57 Temperature 98.1 F Temperature Source Oral Pulse Rate 68 Respiratory Rate 16 Respiratory Pattern Normal Blood Pressure 170/75 H Blood Pressure Mean 106 Pulse Ox 100 Oxygen Delivery Method Room Air Room Air 08/13/25 02:09 08/13/25 03:08 08/13/25 04:05 Temperature Temperature Source Pulse Rate 68 68 59 L Respiratory Rate 16 16 18 Respiratory Pattern Blood Pressure 125/62 H 132/79 H 110/59 L Blood Pressure Mean 83 96 76 Pulse Ox 98 98 98 Oxygen Delivery Method Room Air Room Air Room Air 08/13/25 05:12 Temperature Temperature Source Pulse Rate 68 Respiratory Rate 16 Respiratory Pattern Blood Pressure 114/65 Blood Pressure Mean 81 Pulse Ox 98 Oxygen Delivery Method Room Air Positive well nourished and well developed General Appearance ED: well developed and NAD HEENT Reports moist mucous membranes normocephalic and atraumatic Eyes PERRL and EOMs intact bilaterally Neck full ROM and supple Resp normal respiratory effort and clear to auscultation bilaterally Cardio regular rate, regular rhythm and no murmurs Rate: Negative for bradycardia or tachycardic GI non-distended GI Narrative: Tender throughout left side worse in the left lower quadrant no guarding reboundno pulsatile mass no Noman sign no Leach Richardson sign. Auscultation: normoactive bowel sounds Palpation: soft Back/Spine no CVA tenderness General Back: other FROM Extremity normal to inspection General Extremety ED: Negative for edema, pulses abnormal or tenderness General Extremity: Negative for edema or pulses abnormal Neuro oriented x3, CN's II-XII intact bilaterally and no sensory deficits noted Sensorium / Orientation: awake and alert Motor Exam: strength 5/5 throughout Psych mental status grossly normal Skin no rashes or lesions noted and no wounds Heart Score History: Slightly/Non-Suspicious ECG: Normal Age: >/= 65 years Risk Factors: >/= 3 Risk Factors or History of CAD Troponin: Score: 4 MDM MDM MDM Narrative Medical decision making narrative: Assessment: The patient is a 70-year-old female presenting for episodic chest discomfort followed by lightheadedness, recurrent morning emesis, and intermittent left lower quadrant abdominal pain. Her EKG obtained on arrival is 100% normal. Serial troponins trended 8 - 11 - 8; in the setting of a normal EKGthis effectively rules out acute coronary syndrome. CT abdomen/pelvis demonstrates diffuse gastric wall thickening consistent with gastritis, diffuse colonic wall thickening suggestive of colitis, diffuse colonic diverticulosis without diverticulitis, and a small sliding hiatal hernia. Chest discomfort is likely gastrointestinal in origin. The single transient syncopal episode yesterday is best explained by a vasovagal mechanism. Plan: - IV crystalloid bolus administered in the ED. - IV Zofran given; prescription for outpatient use provided. - Small dose IV morphine given for abdominal pain. - Continue home pantoprazole. - We discussed possible empiric antibiotics for the colitis which is of unknown etiology, she declined saying that she has lots of reactions to antibiotics and prefers not to try this. - Discharged home in improved and stable condition with instructions to follow up with primary care. Diagnostics: - EKG interpreted: normal sinus rhythm; no acute ST-T changes. Independently interpreted by , Carlos Jorgensen. - Labs: serial troponins 8 ng/L ? 11 ng/L ? 8 ng/L. - Chest X-ray (one view): no acute abnormalities. - CT abdomen/pelvis: diffuse gastric wall thickening (gastritis); diffuse colonic wall thickening (colitis); diffuse colonic diverticulosis without diverticulitis; small sliding hiatal hernia; no perforation or pneumatosis. Reevaluations: - Reexamined after treatment: chest discomfort resolved, abdominal pain improved, tolerating oral fluids. Lab Data Attestation: I reviewed the patient's lab results. Labs: Laboratory Results - last 24 hr 08/13/25 08/13/25 08/13/25 00:43 02:39 04:39 WBC 9.2 RBC 4.36 Hgb 12.4 Hct 36.4 L MCV 83.5 MCH 28.4 MCHC 34.1 RDW Std Deviation 45.1 H RDW Coeff of Mary 14.7 H Plt Count 302 MPV 9.0 Immature Gran % (Auto) 0.300 Neut % (Auto) 45.5 L Lymph % (Auto) 47.5 H [place] % (Auto) 5.9 Eos % (Auto) 0.5 Baso % (Auto) 0.3 Absolute Neuts (auto) 4.2 Absolute Lymphs (auto) 4.37 Nucleated RBC % 0 APTT 26.0 Sodium 132 L Potassium 3.9 Chloride 94 L Carbon Dioxide 23.1 Anion Gap 14 BUN 9 Creatinine 0.66 L Estim Creat Clear Calc 84.96 Est GFR (MDRD) Non-Af 96 BUN/Creatinine Ratio 13.7 Glucose 104 H Calcium 9.4 Troponin T High Sens 8 Troponin T Hi Sens 2 Hr 11 Troponin T Hi Sens 4Hr 8 Labs: - Troponin: 8 ? 11 ? 8 Tests: - EKG: Normal Imaging: - CT of the abdomen and pelvis: Possible gastritis with diffuse thickening of the stomach, diffuse thickening of the colon suggesting colitis, diffuse colonicdiverticulosis with no evidence of acute diverticulitis, and a small sliding hiatal hernia. Independently interpreted by Carlos mata. - One view chest x-ray: No acute abnormalities. Independently interpreted by Carlos mata. Radiography Diagnostic Testing: Clinical Impression(s) from Imaging Studies Abdomen/Pelvis CT 08/13/25 00:52 IMPRESSION: Prior hysterectomy. Diffuse colonic diverticulosis. Diffuse thickening of the colon suggestive of colitis without perforation or pneumatosis coli. Left renal simple cyst measuring 1.5 cm. Prior cholecystectomy. Calcified atheromatous plaques of the aorta and iliac arteries. Mild osteopenia. Moderate diffuse spondylosis. Small sliding hiatal hernia. Diffuse thickening of the stomach suggestive of gastritis. Mild hepatic steatosis. [facility] Chest X-Ray 08/13/25 01:25 IMPRESSION: Interval appearance of mild bilateral basilar atelectatic pulmonary changes. Reading Location[facility] Rhythm Strip Rhythm Strip: Sinus Rhythm Rate: 72 Ectopy: None EKG Initial EKG: Attestation: I personally reviewed and interpreted this EKG as follows: Interpretation: Sinus Rhythm and No Acute Injury Pattern Comments: Nml axis & intervals; nml EKG Discharge Plan Triage Chief Complaint: Chest Pain ED Provider: Carlos Jorgensen Dx/Rx/DC Orders Clinical Impression: Gastritis, Colitis, Vasovagal syncope, Sliding hiatal hernia, Chest pain Instructions: Colitis, ED Chest Pain, Noncardiac Prescriptions: New ondansetron 8 mg tablet,disintegrating 8 mg PO Q8H PRN (Reason: nausea and vomiting) Qty: 20 0RF Continued aspirin [Adult Low Dose Aspirin] 81 mg tablet,delayed release (DR/EC) 81 mg PO QDAY famotidine 20 mg tablet 20 mg PO QDAY fluticasone propion-salmeterol 250-50 mcg/dose blister with device 1 inh inhalation BID clobetasol 0.05 % cream 1 g topical QDAY PRN (Reason: rash) Qty: 15 0RF (DME) blood-glucose meter [Accu-Chek Guide Glucose Meter] Misc See Rx Instructions .Route Qty: 1 0RF Rx Instructions: As directed (DME) Accu-Chek Guide test strips Strip See Rx Instructions .Route Qty: 100 0RF Rx Instructions: daily as needed (DME) lancets [Accu-Chek Softclix Lancets] Misc See Rx Instructions .Route Qty: 200 0RF Rx Instructions: daily as needed trazodone 100 mg tablet 100 mg PO QHS Qty: 90 0RF cholecalciferol (vitamin D3) 25 mcg (1,000 unit) capsule 1,000 unit PO DAILY Qty: 90 0RF pantoprazole 40 mg tablet,delayed release (DR/EC) 40 mg PO QDAY Qty: 90 3RF Prolia 60 mg/mL syringe 60 mg subcut [id number] Qty: 1 1RF meloxicam 15 mg tablet 15 mg PO QDAY Qty: 90 0RF furosemide 20 mg tablet 20 mg PO DAILY Qty: 90 0RF montelukast 10 mg tablet 10 mg PO QHS Qty: 90 0RF coenzyme Q10 [Co Q-10] 100 mg capsule 200 mg PO DAILY Qty: 180 0RF atorvastatin [Lipitor] 10 mg tablet 10 mg PO QHS Qty: 30 1RF dulaglutide 1.5 mg/0.5 mL pen injector 1.5 mg subcut QWEEK Qty: 2 1RF lisinopril 2.5 mg tablet 2.5 mg PO QDAY Qty: 30 1RF metformin 500 mg tablet 500 mg PO BID Qty: 180 0RF Discontinued ondansetron 4 mg tablet,disintegrating 4 mg PO Q8H PRN PRN (Reason: Nausea) Qty: 30 1RF Primary Care Provider: Dennis Hamm Referrals: Dennis Hamm MD [Primary Care Provider, Internal Medicine] Activity Restrictions/Additional Instructions: - Continue taking pantoprazole (proton pump inhibitor) as prescribed. - Take ondansetron (Zofran) for nausea as directed to help prevent vomiting. - Your EKG, sequential troponin checks, and chest X-ray were all normal, which rules out a heart attack. - CT scan of your abdomen and pelvis showed gastritis (stomach inflammation), colitis (colon inflammation), diffuse colonic diverticulosis, and a small sliding hiatal hernia; no acute diverticulitis. - These findings and your symptoms are most consistent with acid reflux and gastrointestinal inflammation. - Follow up with your doctor to review these results and adjust your treatment plan as needed. Print Language: Japanese Disposition Disposition: Home, Self Care What to do if you have Problems For any increased pain, shortness of breath, bleeding, nausea or vomiting, chestpain, or any unexpected problems, contact your Primary Care Provider. Call [facility] ([phone]) or report tothe closest Emergency Room. Call 911 if necessary. 08/13/25 0549 Cosigner Signature (if applicable): CC: Dr. Dennis Hamm MD ~ Signed [facility]10-04-2025 Radiology Diagnostic study note [facility] Imaging Services [address], [place] [address] Chest 1 View (Portable) MR#: [id number] Acct: [id number] Name: ЮИЛЯ HAYDEN Rep #: [id number] : 1955 F 70 From: Paresh Gilmore MD PCP: Dr. Dennis Hamm MD Status: REG ER Study:Chest 1 View (Portable) Date of Exam: 08/13/25 Exam# [id number] Ordering Dr: Zen Jorgensen MD PROCEDURE: CHEST 1 VIEW (PORTABLE) 08/13/2025 REASON FOR EXAM: CHEST PAIN TECHNIQUE: Frontal view of the chest. COMPARISON: 07/28/2025. FINDINGS: Unremarkable lower cervical fusion metallic hardware. Interval appearance of mild bilateral basilar atelectatic pulmonary changes. There is no demonstrated pleural abnormality. Enlarged cardiac silhouette. Normal mediastinum and leeann. Normal visualized pulmonary arteries. Atheromatous plaques of the visualized aortic arch and descending thoracic aorta. Diffuse spondylosis of the visualized thoracic spine. Normal visualized ribs, clavicles. Degenerative joint disease. There is no demonstrated abnormality of the visualized soft tissue structures ofthe upper abdomen. RAD/Chest 1 View (Portable) IMPRESSION: Interval appearance of mild bilateral basilar atelectatic pulmonary changes. Reading Location: [place] [address] CC: Dr. Dennis Hamm MD; Dr. Carlos Jorgensen MD ~ Bookkeeper Assistant: Signed [facility]10-04-2025 Radiology Diagnostic study note [facility] Imaging Services [address] [place] [id number] Abdomen/Pelvis W IV Cont ONLY MR#: [id number] Acct: [id number] Name: ЮЛИЯ HAYDEN Rep #: [id number] : 1955 F 70 From: Paresh Gilmore MD PCP: Dr. Dennis Hamm MD Status: REG ER Study:Abdomen/Pelvis W IV Cont ONLY Date of E xam: 08/13/25 Exam# [id number] Ordering Dr: Zen Jorgensen MD PROCEDURE: ABDOMEN/PELVIS W IV CONT ONLY 08/13/2025 REASON FOR EXAM: LEFT SIDED ABD PAIN/TEND TECHNIQUE: Procedure Code: CTABDPELIV Modality: CT Procedure: ABDOMEN/PELVIS W IV CONT ONLY Coronal and Sagittal reconstruction series were provided. CONTRAST: OMNIPAQUE 350 VOLUME: 100 mL One or more dose reduction techniques were used (e.g., Automated exposure control, adjustment of the mA and/or kV according to patient size, use of iterative reconstruction technique. RADIATION DOSE SUMMARY: CTDlvol: 13.2 mGy DLP: 520 mGycm COMPARISON: CT scan on 08/12/2019. FINDINGS: Prior hysterectomy. Diffuse colonic diverticulosis. Diffuse thickening of the colon suggestive of colitis without perforation or pneumatosis coli. Left renal simple cyst measuring 1.5 cm. Prior cholecystectomy. Calcified atheromatous plaques of the aorta and iliac arteries. Mild osteopenia. Moderate diffuse spondylosis. Small sliding hiatal hernia. Diffuse thickening of the stomach suggestive of gastritis. Mild hepatic steatosis. The visualized lung bases are unremarkable. Normal extrahepatic biliary system. Normal spleen. Normal pancreas. Normal bilateral adrenal glands. Normal size of the right kidney. There is no right renal mass. There are no right renal calculi. There is no right hydronephrosis. Normal visualized right ureter. Normal size of the left kidney. There is no left renal mass. There are no leftrenal calculi. There is no left hydronephrosis. Normal visualized left ureter. Normal visualized stomach. Normal small intestine. The appendix is not visualized. There is no demonstrated peritoneal fluid. Calcified atheromatous plaques of the abdominal aorta. Normal inferior vena cava. Normal retroperitoneum. Normal urinary bladder. There is no pelvic mass lesion or lymphadenopathy. There is no pelvic fluid. CT/Abdomen/Pelvis W IV Cont ONLY IMPRESSION: Prior hysterectomy. Diffuse colonic diverticulosis. Diffuse thickening of the colon suggestive of colitis without perforation or pneumatosis coli. Left renal simple cyst measuring 1.5 cm. Prior cholecystectomy. Calcified atheromatous plaques of the aorta and iliac arteries. Mild osteopenia. Moderate diffuse spondylosis. Small sliding hiatal hernia. Diffuse thickening of the stomach suggestive of gastritis. Mild hepatic steatosis. Reading Location: [place] [address] CC: Dr. Dennis Hamm MD; Dr. Carlos Jorgensen MD ~ Bookkeeper Assistant: Signed [facility]09-20-2025 Radiology Diagnostic study note [facility] Imaging Services [address], [place] [id number] Chest PA and Lateral MR#: [id number] Acct: [id number] Name: ЮЛИЯ HAYDEN Rep #: [id number] : 1955 F 69 From: Yaya Newman-Jameson HOLGUIN PCP: Dr. Dennis Hamm MD Status: REG CLI Study:Chest PA and Lateral Date of Exam: 07/28/25 Exam# [id number] Ordering Dr: Evelia Kimble PROCEDURE: CHEST PA AND LATERAL 07/28/2025 REASON FOR EXAM: SORE THROAT, SOB TECHNIQUE: Procedure Code: RADCXR Modality: DX Procedure: CHEST PA AND LATERAL COMPARISON: 03/17/2025 FINDINGS: Multilevel spondylosis. Degenerative changes through the spine. Cervical spondylosis. Heart mediastinum are normal. Lungs are clear. No focal consolidation evident. Degenerative changes of the acromioclavicular joint is notedbilaterally. No pneumothorax. In moderate amount of stool in the colon RAD/Chest PA and Lateral IMPRESSION: No acute cardiopulmonary process. No significant change. Reading Location: [id number] CC: PERLA Kimble; Dr. Dennis Hamm MD ~ Bookkeeper Assistant: Signed [facility]09-18-2025 [facility] [address] [place] [address] [place] [address] OFFICE VISIT Date of Service: 07/28/25 MR#: [id number] Acct: [id number] Name: ЮЛИЯ HAYDEN Rep #: [id number] : 1955 Provider: PERLA Kimble Age/Sex: 69/F Location[facility] Status: Signed Intake Vital Signs 07/20/25 09:50 [...] Clearance Chief Complaint: 4 Week Med check Travel Services Professional Required: No Is patient in pain?: No [...] denosumab 60 mg/mL subcutaneous 60 mg subcut [id number] #1 mL 05/24/25 07/28/25 Rx syringe (Prolia) [...] SOB, Pt does c/o nausea and vomiting. [facility] prescribed fluconazle for yeast in urine culture. pt complerted 2 day course, and has allergy and are reconciled. Pt wondetrs if this contributes to sore throat. Pt has not triedtreating these sx's w/ anything at home. Vomiting has subsided, but nausea has been constant since prior to taking diflucan. Pt does not recall flouracil cream, or if shes was told to stop asa and meloxicam. 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 Patient states she has had multiple eyesurgeries before. States her vision is blurry in that eye and this should get rid of the floaters and improve her vision. She states they will be using a twilight anesthesia for this procedure. She does complain of a slightly sore throat today states it seems sore since she took fluconazole and sheis concerned about thrush as she has a [...] fatigue, fever(s), frequent falls, snoring, weakness, sleep problemsor change in appetite Eyes Eyes: No blurry [...] eyes, seasonal allergy symptoms, hives or wheezing Ejet/Lymp Hematologic/Lymphatic: No easy bleeding, easy bruising, enlarged [...] score 0. Considered low risk of , ME, or arrest within a month of surgery. [...] it wasdiscontinued. Patient is currently on 2.5 mgof lisinopril daily. Prior to starting lisinopril her [...] in the past year?: No 07/29/25 0809 er PASTRY BAKER-C> Date _ Evelia DUNCAN Cosigner Signature: Date (if applicable) CC: ~ [facility]09-18-2025 Progress note Author Evelia Kmible [facility] Note Date/Time July 28, 2025 2:33pm [facility] [address] [place], [place] [address] OFFICE VISIT Date of Service: 07/28/25 MR#: [id number] Acct: [id number] Name: ЮЛИЯ HAYDEN Rep #: [id number] : 1955 Provider: PERLA Kimble Age/Sex: 69/F Location: [facility] Status: Signed Intake Vital Signs 07/20/25 09:50 [...] Clearance Chief Complaint: 4 Week Med check Travel Services Professional Required: No Is patient in pain?: No [...] denosumab 60 mg/mL subcutaneous 60 mg subcut [id number] #1 mL 05/24/25 07/28/25 Rx syringe (Prolia) [...] SOB, Pt does c/o nausea and vomiting. [facility] prescribed fluconazle for yeast in urine culture. [...] was told to stop asa and meloxicam. 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 Considered low risk of , ME, or arrest within a month of surgery. [...] No 07/29/25 0809 <Electronically signed by Evelia ko NP-Beverley> Date _ Evelia Lama Signature: Date (if applicable) CC: ~ [facility] Work Phone: 1(760) 775-273609-10-2025 Progress [facility]'s [address], [address] [place] [id number] OFFICE VISIT Date of Service: 07/20/25 MR#: [id number] Acct: [id number] Name: ЮЛИЯ HAYDEN Rep #: [id number] : 1955 Provider: PERLA Acevedo Age/Sex: 69/F Location[place] [facility] Status: Signed Intake Vital Signs 06/21/25 10:53 07/05/25 13:56 07/20/25 09:45 07/20/25 09:50 Height 5 ft 1 in 5 ft 1 in 5 ft 1 in 5 ft 1 in Weight: 128 lb 6 oz BMI 24.3 BP 140/84 H Intake Visit Reasons: 4 Med Ck Chief Complaint: 4 Week Med check Travel Services Professional Required: No Is patient in pain?: No [...] denosumab 60 mg/mL subcutaneous 60 mg subcut [id number] #1 mL 05/24/25 07/20/25 Rx syringe (Prolia) [...] 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 [employer] pets and animals: No Smoking Status: Current every day smoker tobacco type: cigarettes quit status: not considering quitting alcohol intake: never substance use type: does not use caffeine: Yes seatbelt use: always do you feel safe at home: Yes HPI 4 Med Ck Details: ЮЛИЯ HAYDEN is a 69 year old who presents [...] Lgth Anesthesia Del Locatn Provider FOB Unknown 1972 Unknown 1978 Unknown 1981 ROS Const Constitutional: Reports [...] Call patient with results 07/20/25 1005 s PASTRY BAKER PASTRY BAKER-C> Date _ Ginny Acevedo PASTRY BAKER PASTRY BAKER-C Cosigner Signature: Date (if applicable) CC: ~ [place] [address]-07-2025 Evaluation note* Diagnosis Onset Date Resolution Status [...] 21, 2025 10:49am Dysphagia acute June 27 025 1:22pm Pulmonary nodules acute June 27, [...] 2025 1:09pm Shortness of breath acute Septe [facility] 2024 1:09pm [facility] Work Phone: 1(746) 367-596007-07-2025 Evaluation note* Diagnosis Onset Date Resolution Status [...] Jun ust 2024 1:22pm Asthma noneactive June 27, 2 025 1:22pm Left shoulder pain acute July 05, 2025 1:52pm Right shoulder pain acute Augus t 2024 1:52pm Atrophic vaginitis acute 2024 9:43am Vaginal burning acute July 20, 2025 9:43am Dizziness on standing acute Sep tember 2024 1:09pm Preop exam for internal medicine acute July 28, 2025 1:09pm Shortness of breath acute mber 2024 1:09pm Cervical myelopathy acute Octob er 2024 12:59pm Degenerative disc disease (DDD) of lumbar region with discogenic back pain acute August 12:59pm DISH (diffuse idiopathic skeletal hyperostosis) noneactive August 122024 12:59pm [facility] Work Phone: 1(926) 145-422605-28-2025 Evaluation note* Diagnosis Onset Date Resolution Status [...] noneactive Jun us2024 1:22pm Asthma noneactive June 27, 2 025 1:22pm Left shoulder pain acute July 05, 2025 1:52pm Right shoulder pain acute Augus t 2024 1:52pm [facility] Work Phone: [phone]) 446-590605-28-2025 Evaluation note* Diagnosis Onset Date Resolution Status [...] May 162024 2:14pm Osteoporosis inactive June 07 2 025 1:23pm Cystocele, midline acute June [...] Asthma noneactive June 27, 2 025 1:22pm Left shoulder pain acute July 05, 2025 1:52pm Right shoulder pain acute Aug t 2024 1:52pm Atrophic vaginitis acute 2024 9:43am Vaginal burning acute July 20, 2025 9:43am [facility] Work Phone: 1(113) 620-725005-28-2025 Evaluation note* Diagnosis Onset Date Resolution Status [...] noneactive Jun us2024 1:22pm Asthma noneactive June 27, 2 025 1:22pm Left shoulder pain acute July 05, 2025 1:52pm Right shoulder pain acute Augus t 2024 1:52pm Atrophic vaginitis acute Sept2024 9:43am Vaginal burning acute July 20, 2025 9:43am Dizziness on standing acute Sep tember 2024 1:09pm Preop exam for internal medicine acute July 28, 2025 1:09pm Shortness of breath acute Septe mber 2024 1:09pm [facility] Work Phone: 1(896) 616-993505-14-2025 Radiology Diagnostic study note [facility] Imaging Services [address] [place], [place] [address] Thyroid MR#: [id number] Acct: [id number] Name: ЮЛИЯ HAYDEN Rep #: [id number] : 1955 F 69 From: Papa Carrero MD PCP: Dr. Dennis Hamm MD Status: REG CLI Study:Thyroid Date of Exam: 03/22/25 Exam# [id number] Ordering Dr: Dennis Hamm MD PROCEDURE: THYROID 03/22/2025 REASON FOR EXAM: NODULE FOLLOW UP TECHNIQUE: High-frequency thyroid ultrasound, including grayscale and color-flow images. REFERENCE LINKS: TI-RADS Chart: [email or web address] TI-RADS Calculator Tool with Reference Images: [email or web address]-[email or web address]/[email or web address]/ COMPARISON: Comparison is made with prior study [...] no more than 2 nodules. Reading Location: [facility] CC: Dr. Dennis Hamm MD ~ Bookkeeper Assistant: Signed [facility]05-14-2025 Radiology Diagnostic study note [facility] Imaging Services [address] [place], [place] [id number] Kidney and Bladder MR#: [id number] Acct: [id number] Name: ЮЛИЯ HAYDEN Rep #: [id number] : 1955 F 69 From: Papa Carrero MD PCP: Dr. Dennis Hamm MD Status: REG CLI Study:Kidney and Bladder Date of Exam: 0 03/22/25 Exam# [id number] Ordering Dr: Dennis Hamm MD PROCEDURE: KIDNEY AND BLADDER 03/22/2025 REASON [...] Left renal cyst. Postvoid residual. Reading Location: [id number] CC: Dr. Dennis Hamm MD ~ Bookkeeper Assistant: Signed [facility]05-12-2025 Radiology Diagnostic study note [facility] Imaging Services [address], [place] [address] Chest without Contrast MR#: [id number] Acct: [id number] Name: ЮЛИЯ HAYDEN Rep #: [id number] : 1955 F 69 From: Papa Carrero MD PCP: Dr. Dennis Hamm MD Status: REG CLI Study:Chest without Contrast Date of Exam: 03/17/25 Exam# [id number] Ordering Dr: Rachel Madden PASTRY BAKER-C PROCEDURE: CHEST WITHOUT CONTRAST 03/17/2025 REASON FOR [...] examination. 12 month follow-up recommended. Reading Location: [id number] CC: Dr. Dennis Hamm MD; Rachel Madden NP ~ Bookkeeper Assistant: Signed [facility]05-01-2025 NoteHNO ID: [id number] Author: BERNICE CISNEROS CPhT Service: ? Author Type: Chemical Detection Expert Type: Progress Notes Filed: 03/10/2025 09:01 Note Text: Patient is identified through a medication adherence outreach initiative based on pharmacy claims data from: [employer] Medication Adherence Category: Statins First Review Attribution [...] no adherence concerns to be addressed Bernice Cisneros CPhT [facility] History of Present illness Narrative* Bernice Cisneros CPhT - 03/10/2025 8:51 AM EDT Patient [...] no adherence concerns to be addressed Bernice Cisneros CPhT Value [facility] NotePatient Outreach (PHPOHE) ЮЛИЯ HAYDEN ([id number]) 1955 F Date Time Provider Department 03/10/25 DENNIS HAMM PHPOHE During your visit today, we recorded the following information about you: Bernice Cisneros CPhT 03/10/2025 9:01 AM Signed Patient is identified through a medication adherence outreach initiative based on pharmacy claims data from: Replaced By [facility] Medication Adherence Category: Statins First Review Attribution [...] no adherence concerns to be addressed Bernice Cisneros CPhT Value Based Care Pharmacy Team Allergies [...] - Rash Date Reviewed: 02/18/2025 Reviewed by: Masci, Cristhian A, DO - Fully Assessed Reason for Visit: [...] Pill dysphagia [R13.10] 0 (more content not included)...[facility]04-30-2025 Evaluation note* Diagnosis Onset Date Resolution Status [...] May 162024 2:14pm Osteoporosis inactive June 07, 025 1:23pm [facility] Work Phone: [phone]) [phone] Evaluation note* Diagnosis Onset Date Resolution Status [...] 1:23pm H/O urinary retention acute Jun 2:35pm [facility] [employer] [facility] Work Phone: 1(834) 583-589404-30-2025 Evaluation note* Diagnosis Onset Date Resolution Status [...] 2024 2:35pm Vaginal atrophy acute June 2:35pm [facility] Work Phone: 1(581) 693-153504-30-2025 Evaluation note* Diagnosis Onset Date Resolution Status [...] May 162024 2:14pm Osteoporosis inactive June 07 2 025 1:23pm Cystocele, midline acute June [...] Asthma noneactive June 27, 2 025 1:22pm [facility] Work Phone: 1([phone]) [phone] Evaluation note* Diagnosis Onset Date Resolution Status [...] 1:22pm Asthma noneactive June 27 025 1:22pm [facility] Work Phone: [phone]) [phone] Evaluation note* Diagnosis Onset Date Resolution Status [...] 2025 12:35pm Thyroid nodule noneactive March 16 025 12:35pm Establishing care with new doctor, [...] June 27, 2025 1:22pm Monoclonal gammopathy noneactive Aug ust 2024 1:22pm Asthma noneactive June 27 2 025 1:22pm Left shoulder pain acute July 05, 2025 1:52pm Right shoulder pain acute Augus t 2024 1:52pm [employer] [facility] Work Phone: 1(281) 503-195404-30-2025 [facility]04-11-2025 NoteHNO ID: [id number] Author: CRISTHIAN CHRISTENSEN, DO Service: ? Author Type: Physician Type: Progress Notes Filed: 02/18/2025 14:49 Note Text: Hematologic problem(s): 1) IgG lambda MGUS. HPI: The patient is a 69-year-old female with a past medical history as outlined below. Establish with new PCP prior to referral here. Had lab work done through [facility] that showed an increase in serum globulin [...] DX W/COLLJ SPEC WHEN PFRMD Done in [place] unable to obtain COLONOSCOPY FLX DX W/COLLJ [...] 100 mg by m (more content not included)...[facility]04-11-2025 History of Present illness Narrative* Cristhian Christensen DO - 02/18/2025 2:33 PM EDT Hematologic problem(s): 1) IgG lambda MGUS. HPI: The patient is a 69-year-old female with a past medical history as outlined below. Establish with new PCP prior to referral here. Had lab work done through [facility] that showed an increase in serum globulin [...] DX W/COLLJ SPEC WHEN PFRMD Done in [place] unable to obtain COLONOSCOPY FLX DX W/COLLJ [...] bedtime. One or two blood sugar diagnostic (CapptainUCH VERIO TEST STRIPS) test strip Test blood [...] which included preparing to see the patient, [id number] patient care, completing clinical documentation, obtaining and/or reviewing separately obtained history, performing a medically appropriate examination, counseling and educating the pat ient/family/caregiver, communicating with other HCPs (not separately reported), and communicating results to the patient/family/caregiver. Cristhian Christensen DO documented in this encounterFostoria City Hospital04-03-2025 NoteHNO ID: [id number] Author: OLGA GALAN CPhT Service: ? Author Type: Chemical Detection Expert Type: Progress Notes Filed: 02/10/2025 09:19 Note Text: Patient is identified through a medication adherence outreach initiative based on pharmacy claims data from: Replaced By [facility] Medication Adherence Category: Diabetes First Review Attribution [...] Olga Galan CPhT Value Based [facility] History of Present illness Narrative* Olga Galan [...] primary intervention? No intervention Olga Galan CPhT [facility] Care Pharmacy Team documented in this encounterFostoria City Hospital04-03-2025 NotePatient Outreach (PHPOHE) ЮЛИЯ HAYDEN ([id number]) 1955 F Date Time Provider Department 02/10/25 [...] Discard Pen After - blood sugar diagnostic (SLIDTOUCH VERIO TEST STRIPS) test strip Test blood [...] [R91.8] 05/15/2015 03/27/2023 Emphy (more content not included)...[facility]04-01-2025 NoteHNO ID: [id number] Author: OLGA GALAN CPhT Service: ? Author Type: Chemical Detection Expert Type: Progress Notes Filed: 02/08/2025 13:10 Note Text: Patient is identified through a medication adherence outreach initiative based on pharmacy claims data from: [facility] Medication Adherence Category: Statins First Review Attribution [...] Olga Galan CPhT [facility] Based [facility] History of Present illness Narrative* Olga Galan CPhT - 02/08/2025 1:07 PM EDT Patient is identified through a medication adherence outreach initiative based on pharmacy claims data from: [facility] Medication Adherence Category: Statins First Review Attribution [...] Based Care Pharmacy Team documented in this encounterFostoria City Hospital04-01-2025 NotePatient Outreach (PHPOHE) ЮЛИЯ HAYDEN ([id number]) 1955 F Date Time Provider Department 02/08/25 NO PCP (HIST) PHPOHE During your visit today, we recorded the following information about you: Olga Galan CPhT 02/08/2025 1:10 PM Signed Patient is identified through a medication adherence outreach initiative based on pharmacy claims data from: [facility] Medication Adherence Category: Statins First Review Attribution [...] concerns to be addressed Olga Galan CPhT [facility] Care Pharmacy Team Allergies As of Date: [...] Lung nodules [R91.8] 05/15 (more content not included)...[facility]03-26-2025 Evaluation note* Diagnosis Onset Date Resolution Status [...] 2:14pm Heart palpitations acute May 162024 2:14pm [facility] Work Phone: 1([phone]) 192-768402-18-2025 Evaluation note* Diagnosis Onset Date Resolution Status Admit Date Diarrhea acute December 28, 2024 11:17am [facility] Work Phone: [phone]) [phone] Evaluation note* Diagnosis Onset Date Resolution Status [...] 12:35pm Asthma noneactive March 16, 2025 12:35pm [facility] Work Phone: [phone]) [phone] Evaluation note* Diagnosis Onset Date Resolution Status [...] 0:11am Asthma noneactive April 06, 2025 10:11am [employer] Work Phone: [phone] 521-671302-07-2025 NoteHNO ID: [id number] Author: IRAIDA PAGE MA Service: ? Author Type: Tooth Cutter Pinion Type: Progress Notes Filed: 12/17/2024 07:37 Note Text: POPULATION HEALTH NAVIGATION OUTREACH Action/ - [employer] Unknown PCP Patient is already scheduled with Sahra Seugra CNP to est care and appointment note states not to reschedule this appointment as it has been rescheduled already. I updated PCP team field and added to appointment note to review PCP status and update PCP field at appointment as I am not sure if SCHOOL OFFICE ASSISTANT can be her PCP. Reason for Outreach Attribution: Unknown PCP Report Care Gaps due: Establish Care Appointment Patient Contacted: Unable or unnecessary to reach patient: PCP field updated Patient already scheduled Updated appointment notes Navigation Signature: Iraida Page MA December 17, 2024 7:32 [facility]02-07-2025 History of Present illness Narrative* Iraida Page MA - 12/17/2024 7:32 AM EST POPULATION HEALTH NAVIGATION OUTREACH Action/I - [employer] Unknown PCP Patient is already scheduled with Sahra Segura CNP to est care and appointment note states not toreschedule this appointment as it has been rescheduled already. I updated PCP team field and added to appointment note to review PCP status and update PCP field atappointment as I am not sure if SCHOOL OFFICE ASSISTANT can be her PCP. Reason for Outreach Attribution: Unknown PCP Report Care Gaps due: Establish Care Appointment Patient Contacted: Unable or unnecessary to reach patient: PCP field updated Patient already scheduled Updated appointment notes Navigation Signature: Iraida Page MA December 17, 2024 7:32 AM documented in this encounterFostoria City Hospital02-07-2025 NotePatient Outreach (NETNAV) ЮЛИЯ HAYDEN ([id number]) 1955 F Date Time Provider Department 12/17/24 [...] Discard Pen After - blood sugar diagnostic (SLIDTOUCH VERIO TEST STRIPS) test strip Test blood [...] 12/05/2017 Depression [F32.A] 05/15/20 (more content not included)...[facility]01-06-2025 Telephone encounter Note* Telephone Encounter - Christie Ramirez PA-C - 11/15/2024 8:17 AM EST Patient not seen in over 1 year [facility]01-06-2025 Miscellaneous Notes* Telephone Encounter - Christie Ramirez PA-C - 11/15/2024 8:17 AM EST Patient not seen in over 1 year * Telephone Encounter - Jenni Roy MA - 11/12/2024 3:34 PM EST Patient last seen in office 04/2023. documented in this encounterFostoria City Hospital01-03-2025 Telephone encounter Note * Telephone Encounter - Jenni Roy MA - 11/12/2024 3:34 PM EST Patient last seen in office 04/2023. [facility]11-01-2024 NoteHNO ID: [id number] Author: JUAREZ BALL MD Service: ? Author Type: Physician Type: [...] get an appointment sooner than January. Juarez Ball [facility]11-01-2024 History of Present illness Narrative* Juarez Ball MD - 09/10/2024 1:57 PM EDT Patient [...] week. Discard Pen After blood sugar diagnostic (CapptainUCH VERIO TEST STRIPS) test strip Test blood [...] GI consult. She has seen ENT in [place] and may follow up there for neck tenderness. Add an OTC antihistamine such as claritin or zyrtec to help with allergy related head congestion. Patient has been attempting to get re-established with primary care but currently cannot get an appointment sooner than January. Juarez Ball MD documented in this encounterFostoria City Hospital10-08-2024 Telephone encounter Note * Telephone Encounter - Beatrice Luna MA - 08/17/2024 5:[address] Petersen declined to accept her back in May when she left the practice. She was already advised this twice. Will leave in basket for nursing staff Beatrice Luna MA August 17, 2024 5:24 PM [facility]10-08-2024 Miscellaneous Notes* Telephone Encounter - Beatrice [...] thought her insurance wasn't in network with [facility]. Patient's insurance is in network and wishes to re-establish with [facility]. Please advise if this is an option as she is diabetic and needs to be seen sooner than January with Dr. Tovar. Gabbie Tidwell documented in this encounterFostoria City Hospital10-08-2024 Telephone encounter Note * Telephone Encounter - Gabbie Tidwell - 08/17/2024 4:38 PM EDT Patient was seen by Vinh until a few months ago. Patient left [facility] as she thought her insurance wasn't in network with [facility]. Patient's insurance is in network and wishes to re-establish with [facility]. Please advise if this is an option as she is diabetic and needs to be seen sooner than January with Dr. Tovar. Gabbie Tidwell [facility]10-08-2024 NoteHNO ID: [id number] Author: CRISTHIAN CHRISTENSEN, DO Service: ? Author Type: Physician Type: Progress Notes Filed: 08/18/2024 16:20 Note Text: Hematologic problem(s): 1) IgG lambda MGUS. HPI: The patient is a 69-year-old female with a past medical history as outlined below. Establish with new PCP prior to referral here. Had lab work done through [facility] that showed an increase in serum globulin [...] DX W/COLLJ SPEC WHEN PFRMD Done in [place] unable to obtain COLONOSCOPY FLX DX W/COLLJ [...] by mouth twice daily. (more content not included)...[facility]10-08-2024 History of Present illness Narrative* Cristhian Christensen, - 08/17/2024 4:10 PM EDT Hematologic problem(s): 1) IgG lambda MGUS. HPI: The patient is a 69-year-old female with a past medical history as outlined below. Establish with new PCP prior to referral here. Had lab work done through [facility] that showed an increase in serum globulin [...] DX W/COLLJ SPEC WHEN PFRMD Done in [place] unable to obtain COLONOSCOPY FLX DX W/COLLJ [...] week. Discard Pen After blood sugar diagnostic (CapptainUCH VERIO TEST STRIPS) test strip Test blood [...] Sclerae are anicteric bilaterally. LABS: Latest Ref Rn 06/02/2024 WBC 3.70 - 11.00 k/uL 7.40 [...] Abs Lymph 1.00 - 4.00 k/uL 3.34 [place]% % 5.4 Abs [place] <0.87 k/uL 0.40 Eosin% % 1.5 Abs [...] Review Reviewed by Malachi Byrne MD, Ph.D ([id number]) Protein, Total 6.3 - 8.0 g/dL 8.3 [...] gammopathy. Clinical correlation is necessary. Staff Review ([facility]) Reviewed by Malachi Byrne MD, Ph.D ([id number]) Vamo Free, Serum 3.3 - 19.4 mg/L 39.2 [...] Volume 24 hour mL 3,200 Latest Ref Rn 06/07/2024 Result ([facility]) No M protein is identified. A poorly defined region of restricted mobility is presentthat may represent an M protein. ! Interpretation ([facility]) Poorly defined region of restricted mobility in [...] gammopathy. Clinical correlation is necessary. Staff Review ([facility]) Reviewed by Ileana Marina M.D. ASSESSMENT/PLAN: [...] which included preparing to see the patient, bzvf-jx-bbkv patient care, completing clinical documentation, obtaining and/or reviewing separately obtained history, performing a medically appropriate examination, counseling and educating the pat ient/family/caregiver, and communicating results to the patient/family/caregiver. Cristhian Christensen DO documented in this encounterFostoria City Hospital10-01-2024 Telephone encounter Note * Telephone Encounter - Franklin Hankins RN - 08/10/2024 4:17 PM EDT Left detailed vm on identified vm letting patient know this day will not work for pcp. Advised I have cancelled the appt in Sep, and asked patient to call back, and speak with a nurse or pss, to schedule an est care appt. [facility]10-01-2024 Miscellaneous Notes* Telephone Encounter - Franklin Hankins RN - 08/10/2024 4:17 PM EDT Left detailed vm on identified vm letting patient know this day will not work for pcp. Advised I have cancelled the appt in Sep, and asked patient to call back, and speak with a nurse or pss, to schedule an est care appt. * Telephone Encounter - Hemanth Tovar MD - 08/10/2024 12:58 PM EDT I already have 2 new patient appointments scheduled for this day. 9 am and 2:20pm. They will need to be scheduled for a day when I have less than 2 new patients scheduled. * Telephone Encounter - Franklin Hankins RN - 08/10/2024 11:40 AM EDT Patient was transferred to this nurse, after scheduling an appt with Gas Appliance Repairer to est care, for Dec. Patient wants sooner appt to est care. Scheduled patient with Dr. Tovar on 09-21-24 at 7 am. Thiswas the only time this nurse could get. This appt, makes 2 appts to est care, on this day, for doctor. Please advise patient if this date/time is not ok [phone]. States she is diabetic, has issues with lungs, kidney and bladder, and needs a doctor to monitor these. Reports she transferred out of [facility] in Dec, and when attempted to transfer back to Dr. Petersen,was told he is no longer accepting new patients. documented in this encounterFostoria City Hospital10-01-2024 Telephone encounter Note * Telephone Encounter - Hemanth Tovar MD - 08/10/2024 12:58 PM EDT I already have 2 new patient appointments scheduled for this day. 9 am and 2:20pm. They will need to be scheduled for a day when I have less than 2 new patients scheduled. [facility] Work Phone: 1(764) 691-134310-01-2024 Telephone encounter Note* Telephone Encounter - Franklin Hankins RN - 08/10/2024 11:40 AM EDT Patient was transferred to this nurse, after scheduling an appt with Gas Appliance Repairer to est care, for Dec. Patient wants sooner appt to est care. Scheduled patient with Dr. Tovar on 09-21-24 at 7 am. Thiswas the only time this nurse could get. This appt, makes 2 appts to est care, on this day, for doctor. Please advise patient if this date/time is not ok [phone]. States she is diabetic, has issues with lungs, kidney and bladder, and needs a doctor to monitor these. Reports she transferred out of [facility] in Dec, and when attempted to transfer back to Dr. Petersen,was told he is no longer accepting new patients. [facility]09-26-2024 NoteHNO ID: [id number] Author: ORVILLE TAVARES APRN.RADHA Service: ? Author Type: Nurse Practitioner Type: Procedures Filed: 2024 13:50 Note Text: BEDSIDE PROCEDURE NOTE BONE MARROW BIOPSY Date/Start Time: 2024 12:52 PM Date/Stop Time: 2024 1:09 PM Performed by: Orville Tavares APRN.SCHOOL OFFICE ASSISTANT Authorized by: Orville Tavares APRN.SCHOOL OFFICE ASSISTANT Where was Patient When this Procedure was Performed [facility] Informed Consent Consent Obtained: Written [place] Protocol A moment to CARE was completed. [...] SIGNATURE: Orville Tavares APRN.CNP PATIENT NAME: Юлия Hayden DATE: 2024 TIME: 1:[address] [facility]09-26-2024 Procedure note* Orville Tavares APRN.CNP - 2024 1:47 PM EDTAssociated Order(s): BONE MARROW BIOPSY Post-Procedure Diagnose(s): Monoclonal gammopathy BEDSIDE PROCEDURE NOTE BONE MARROW BIOPSY Date/Start Time: 2024 12:52 PM Date/Stop Time: 2024 1:09 PM Performed by: Orville Tavares APRN.CNP Authorized by: Orville Tavares APRN.CNP Where was Patient When this Procedure was Performed [facility] Informed Consent Consent Obtained: Written [place] Protocol A moment to CARE was completed. [...] SIGNATURE: Orville Tavares APRN.CNP PATIENT NAME: Юлия Hayden DATE: 2024 TIME: 1:47 PM [facility] Work Phone: 1(536) 668-569309-26-2024 Procedure note* Orville Tavares APRN.CNP - 2024 1:47 PM EDTAssociated Order(s): BONE MARROW BIOPSY Post-Procedure Diagnose(s): Monoclonal gammopathy BEDSIDE PROCEDURE NOTE BONE MARROW BIOPSY Date/Start Time: 2024 12:52 PM Date/Stop Time: 2024 1:09 PM Performed by: Ovrille Tavares APRN.CNP Authorized by: Orville Tavares APRN.CNP Where was Patient When this Procedure was Performed [facility] Informed Consent Consent Obtained: Written [place] Protocol A moment to CARE was completed. [...] Visit completed when applicable SIGNATURE: Orville Tavares APRN.RADHA PATIENT NAME: Юлия Hayden DATE: 2024 TIME: 1:47 PM documented in this encounterFostoria City Hospital09-26-2024 Nurse Note* Paola Yao MA - 2024 1:08 PM EDT Pt discharged to home with Neighbor after BMBX with dry sterile dressing in place. No drainage noted. Post-procedures care reviewed with patient. Pt to call with any complaints of redness, swelling, increased or unresolved pain, bleeding, chills, bruising, and/or fever. Pt. Verbalized understanding. Paola Yao MA [facility]09-26-2024 Nurse Note* Paola Yao MA - 2024 1:08 PM EDT Pt discharged to home with Neighbor after BMBX with dry sterile dressing in place. No drainage noted. Post-procedures care reviewed with patient. Pt to call with any complaints of redness, swelling, increased or unresolved pain, bleeding, chills, bruising, and/or fever. Pt. Verbalized understanding. Paola Yao MA documented in this encounterFostoria City Hospital09-23-2024 Telephone encounter Note * Telephone Encounter - Emily Tirado LPN - 08/02/2024 1:03 PM EDT Patient notified. Emily Tirado LPN [facility]09-23-2024 Miscellaneous Notes* Telephone Encounter - Emily Tirado LPN - 08/02/2024 1:03 PM EDT Patient notified. Emily Tirado LPN * Telephone Encounter - Cristhian Christensen DO - 08/02/2024 12:57 PM EDT The following approved medication requests have been transmitted electronically. Requested Prescriptions Signed Prescriptions Disp Refills LORazepam (ATIVAN) 0.5 mg 1 tablet 0 Sig: Take 1 tablet by mouth one time only for 1 dose. Take 1 tablet 1 hour prior to bone marrow biopsy. Authorizing Provider: CRISTHIAN CHRISTENSEN DO * Telephone Encounter - Emily Tirado LPN - 08/02/2024 10:44 AM EDT Rx pended. Emily Tirado LPN * Telephone Encounter - Rosie Tam - 08/02/2024 10:07 AM EDT Patient is scheduled for BMBX on 08/05. She states Dr Christensen was going to prescribe a medication to keep her calm. She believes it as Ativan. Patient uses [facility] in [place] for pharm. documented in this encounterFostoria City Hospital09-23-2024 Telephone encounter Note * Telephone Encounter - Cristhian Christensen DO - 08/02/2024 12:57 PM EDT The following approved medication requests have been transmitted electronically. Requested Prescriptions Signed Prescriptions Disp Refills LORazepam (ATIVAN) 0.5 mg 1 tablet 0 Sig: Take 1 tablet by mouth one time only for 1 dose. Take 1 tablet 1 hour prior to bone marrow biopsy. Authorizing Provider: CRISTHIAN CHRISTENSEN DO [facility]09-23-2024 Telephone encounter Note* Telephone Encounter - Emily Tirado LPN - 08/02/2024 10:44 AM EDT Rx pended. Emily Tirado LPN [facility]09-23-2024 Telephone encounter Note* Telephone Encounter - Rosie Tam - 08/02/2024 10:07 AM EDT Patient is scheduled for BMBX on 08/05. She states Dr Christensen was going to prescribe a medication to keep her calm. She believes it as Ativan. Patient uses [facility] in [place] for pharm. [facility] Work Phone: 1(630) 916-855209-19-2024 History of Present illness Narrative* Beatrice Henderson RT(R) - 07/29/2024 1:00 PM EDT Radiology [...] PATIENT PRESENTS WITH AN IMPLANTABLE OR ATTACHED WAX PATTERN ASSEMBLER: No ALLERGIES: Reviewed and unchanged CONTRAST ALLERGY: NO. EXAM: MRI - CONTRAST TYPE: GROUP II PERIPHERAL IV DATA: Ambulatory: A peripheral IV was started in the Right antecubital site with a Angio cath: 22 gauge. RADIOLOGY DEPARTMENT: MR; Exam(s) Completed: Lower MSK: Pelvis, bilateral Spine: Cervical spine, Thoracic spine, and Lumbar spine SIGNATURE: RT Tyrese(R) PATIENT NAME: Юлия Hayden DATE: July 29, 2024 TIME: 1:07 PM documented in this encounterFostoria City Hospital09-19-2024 NoteHNO ID: [id number] Author: BEATRICE HENDERSON RT(Dixie) Service: ? Author Type: Technologist Type: Progress [...] PATIENT PRESENTS WITH AN IMPLANTABLE OR ATTACHED WAX PATTERN ASSEMBLER: No ALLERGIES: Reviewed and unchanged CONTRAST ALLERGY: NO. EXAM: MRI - CONTRAST TYPE: GROUP II PERIPHERAL IV DATA: Ambulatory: A peripheral IV was started in the Right antecubital site with a Angio cath: 22 gauge. RADIOLOGY DEPARTMENT: MR; Exam(s) Completed: Lower MSK: Pelvis, bilateral Spine: Cervical spine, Thoracic spine, and Lumbar spine SIGNATURE: RT Tyrese(R) PATIENT NAME: Юлия Hayden DATE: July 29, 2024 TIME: 1:[address] [facility]08-29-2024 Telephone encounter Note* Telephone Encounter - Fanta Cline APRN.CNP - 07/08/2024 11:35 AM EDT I have sent 30 pills and patient should schedule follow up endoscopy if she is due. [facility]08-29-2024 Miscellaneous Notes* Telephone Encounter - Fanta [...] 06, 2024 2:42 PM documented in this encounterFostoria City Hospital08-29-2024 Telephone encounter Note * Telephone Encounter [...] so long ago. Please call and advise. [facility]08-28-2024 Telephone encounter Note* Telephone Encounter - Danielle De Leon LPN - 07/07/2024 4:01 PM EDT Left a message for pt to call the office and ask to speak to a nurse. When pt calls back ask pt why she is in need of Zofran. Sahra has denied this. Danielle De Leon LPN [facility]08-27-2024 Telephone encounter Note* Telephone Encounter - [...] Todd LPN July 06, 2024 2:42 PM [facility]08-27-2024 Telephone encounter Note* Telephone Encounter - Paola Kumar LPN - 07/06/2024 12:45 PM EDT Phoned patient went over results, notes from Sahra Moreno PASTRY BAKER with understanding. [facility]08-27-2024 Miscellaneous Notes* Telephone Encounter - Paola Kumar LPN - 07/06/2024 12:45 PM EDT Phoned patient went over results, notes from Sahra Moreno PASTRY BAKER with understanding. * Telephone Encounter - Sahra Moreno APRN.CNP - 07/06/2024 11:55 AM EDT Please call patient and let her know there is no mammographic evidence of malignancy. A 1 year screening mammogram is recommended. Sahra Moreno APRN.CNP documented in this encounterFostoria City Hospital08-27-2024 Telephone encounter Note * Telephone Encounter - Sahra Moreno APRN.CNP - 07/06/2024 11:55 AM EDT Please call patient and let her know there is no mammographic evidence of malignancy. A 1 year screening mammogram is recommended. Sahra Moreno APRN.CNP [facility] Work Phone: 1(282) 125-981508-26-2024 Note* Letter - Coordinator, Mammography - 07/05/2024 12:16 PM EDT July 05, 2024 PID: [id number] Юлия Hayden [address] [place] [address] Dear Ms. Hayden, We are pleased to inform you that [...] report will be kept on [facility] as part of your permanent medical record and are available for your continuing care. Thank you for allowing us to help in meeting your health care needs. Sincerely, Dr. Khan Interpreting Radiologist [facility] (Normal over 40) [facility]08-26-2024 Miscellaneous Notes* Letter - Coordinator, Mammography - 07/05/2024 12:16 PM EDT July 05, 2024 PID: [id number] Юлия Hayden [address] [place] [address] Dear Ms. Hayden, We are pleased to inform you that [...] report will be kept on file at [facility] as part of your permanent medical record and are available for your continuing care. Thank you for allowing us to help in meeting your health care needs. Sincerely, Dr. Khan Interpreting Radiologist [facility] (Normal over 40) documented in this encounterFostoria City Hospital08-23-2024 History of Present illness Narrative* Aliyah Medley Mammo Tech - 07/02/2024 12:50 PM EDT Radiology Service Progress Note PATIENT NAME: Юлия Hayden DATE OF SERVICE: July 02, 2024 TIME: [...] PATIENT PRESENTS WITH AN IMPLANTABLE OR ATTACHED WAX PATTERN ASSEMBLER: No RADIOLOGY DEPARTMENT: Mammography PERIPHERAL IV DATA: Not applicable SIGNED BY: Drea Mcduffie July 02, 2024 1:09 PM documented in this encounterFostoria City Hospital08-23-2024 NoteHNO ID: [id number] Author: ALIYAH MEDLEY Mammo Tech Service: ? Author Type: Physician Extender Type: Progress Notes Filed: 07/02/2024 13:10 Note Text: Radiology Service Progress Note PATIENT NAME: Юлия Hayden DATE OF SERVICE: July 02, 2024 TIME: [...] PATIENT PRESENTS WITH AN IMPLANTABLE OR ATTACHED WAX PATTERN ASSEMBLER: No RADIOLOGY DEPARTMENT: Mammography PERIPHERAL IV DATA: Not applicable SIGNED BY: Aliyah Medley [employer] July 02, 2024 1:[address] [facility]08-21-2024 NotePatient Outreach (INTMMN) ЮЛИЯ HAYDEN ([id number]) 1955 F Date Time Provider Department 06/30/24 HEMANTH TOVAR During your visit today, we recorded the [...] for screening mammogram for breast cancer [Z12.31] Order(s):CARLOS EDUARDO SCREENING W MIGUEL [[id number]] Order #: [id number] FUTURE Prescriptions as of 07/05/2024 - metFORMIN [...] [C44.321] 06/24/2016 Mixed hyperl (more content not included)...[facility]08-19-2024 Telephone encounter Note* Telephone Encounter - Gabbie Tidwell - 06/28/2024 3:57 PM EDT Spoke with patient and scheduled. Gabbie Tidwell [facility]08-19-2024 Miscellaneous Notes* Telephone Encounter - Gabbie [...] office visit schedule sometimeafter 07/29/24 Aleja Gonzales Pss * Telephone Encounter - Cristhian Christensen DO - 06/25/2024 5:53 PM EDT Please [...] scheduling purposes Monika Vila documented in this encounterFostoria City Hospital08-19-2024 Telephone encounter Note * Telephone Encounter - Leann Burton LPN - 06/28/2024 3:51 PM EDT Spoke with pt. Informed BMBX 1 week after MRI, then OV 1-2 weeks after Biopsy. Call transferred to [facility] for scheduling. Leann Burton LPN [facility]08-19-2024 Telephone encounter Note* Telephone Encounter - [...] office visit schedule sometimeafter 07/29/24 Aleja Gonzales Pss [facility]08-16-2024 Telephone encounter Note* Telephone Encounter - Cristhian Christensen DO - 06/25/2024 5:53 PM EDT Please pend orders for MRI cervical, thoracic and lumbar spine with and without contrast as well asMRI Ortho pelvis with and without contrast. [facility]08-16-2024 Telephone encounter Note* Telephone Encounter - Hemanth Tovar MD - 06/25/2024 8:05 AM EDT I did not see that she had gone outside of the practice. She has an appointment with Sahra to establish care in July. If she is not going to be establishing with me, then this would need to be cancelled. [facility] Work Phone: [phone] Miscellaneous Notes* Telephone Encounter - Hemanth Tovar MD - 06/25/2024 8:05 AM EDT I did not see that she had gone outside of the practice. She has an appointment with Sahra to establish care in July. If she is not going to be establishing with me, then this would need to be cancelled. * Telephone Encounter - Annmarie Sutton APRN.SCHOOL OFFICE ASSISTANT - 06/24/2024 5:02 PM EDT Got it. Thank you for letting me know. Probably would not be establishing with Dr. Tovar either. * Telephone Encounter - Beatrice Luna MA - 06/24/2024 4:[address] Petersen declined accepting her back as a patient. She transferred out of the practice. See the [employer] message 06/08/24. I am no allowed to re-establish her with Dr Petersen. She even signed a request of records and they were sent to [facility]. * Telephone Encounter - Hemanth Tovar MD - 06/24/2024 1:41 PM EDT I [...] care. Jeremiah Galindo LPN documented in this encounterFostoria City Hospital08-15-2024 Telephone encounter Note * Telephone Encounter - Annmarie Sutton APRN.CNP - 06/24/2024 5:02 PM EDT Got it. Thank you for letting me know. Probably would not be establishing with Dr. Tovar either. [facility] Work Phone: [phone]) 434-556408-15-2024 Telephone encounter Note* Telephone Encounter - Beatrice Luna MA - 06/24/2024 4:[address] Petersen declined accepting her back as a patient. She transferred out of the practice. See the [employer] message 06/08/24. I am no allowed to re-establish her with Dr Petersen. She even signed a request of records and they were sent to [facility]. [facility]08-15-2024 Telephone encounter Note* Telephone Encounter - Hemanth Tovar MD - 06/24/2024 1:41 PM EDT I am confused by this message. It looks like she saw Sahra once for acute issue and has been seeingDr. Petersen and Maciej regularly. Did she requesting a new PCP at one point? [facility]08-15-2024 History of Present illness Narrative* Rosie Lucas RT(R) - 06/24/2024 10:50 AM EDT Radiology Service Progress Note PATIENT NAME: Юлия Hayden DATE OF SERVICE: June 24, 2024 TIME: [...] PATIENT PRESENTS WITH AN IMPLANTABLE OR ATTACHED WAX PATTERN ASSEMBLER: No RADIOLOGY DEPARTMENT: General X-ray: Exam(s) Completed: Bone Survey PERIPHERAL IV DATA: Not applicable SIGNED BY: RT Tiara(Dixie) June 24, 2024 12:54 PM documented in this encounterFostoria City Hospital08-15-2024 NoteHNO ID: [id number] Author: ROSIE LUCAS RT(R) Service: ? Author Type: Technologist Type: Progress Notes Filed: 06/24/2024 12:54 Note Text: Radiology Service Progress Note PATIENT NAME: Юлия Hayden DATE OF SERVICE: June 24, 2024 TIME: [...] PATIENT PRESENTS WITH AN IMPLANTABLE OR ATTACHED WAX PATTERN ASSEMBLER: No RADIOLOGY DEPARTMENT: General X-ray: Exam(s) Completed: Bone Survey PERIPHERAL IV DATA: Not applicable SIGNED BY: RT Tiara(R) June 24, 2024 12:[address] [facility]08-15-2024 Telephone encounter Note* Telephone Encounter - Monika Vila - 06/24/2024 10:44 AM EDT Check out comments: MRIs when able. Bone marrow biopsy about week after MRIs. CBC/Troponin/BNP day of biopsy. OV about 1-2 weeks after biopsy. Please file MRI orders for scheduling purposes Monika Vila [facility]08-15-2024 Instructions* Patient Instructions* Cristhian Christensen DO - 06/24/2024 10:36 AM EDT Hold aspirin beginning 5 days prior to bone marrow biopsy. Can resume day after biopsy. documented in this encounterFostoria City Hospital08-15-2024 NoteHNO ID: [id number] Author: CRISTHIAN CHRISTENSEN DO Service: ? Author Type: Physician Type: Progress Notes Filed: 06/24/2024 11:19 Note Text: Hematologic problem(s): 1) Possible MGUS. HPI: The patient is a 68-year-old female with a past medical history as outlined below. Establish with new PCP prior to referral here. Had lab work done through [facility] that showed an increase in serum globulin [...] Lung nodules 03/10/2017: PAD (peripheral artery disease) ([facility]) Comment: 02/06/2022 PVR ank/jackson/toe bilat: RIGHT SIDE JITENDRA: 1.19; TBI: 0.84, WNL at rest LEFT SIDE: JITENDRA: 1.19; TBI: 0.96, WNL at rest 12/08/2017: Pulmonary HTN ([facility]) Comment: mild 06/24/2016: Squamous cell skin cancer, nasal tip 03/28/2017: Tobacco abuse PAST SURGICAL HISTORY 09/2004: ADDTL NECK SPINE FUSION 2000: CHOLECYSTECTOMY 1982: COLONOSCOPY 09/01/2012: COLONOSCOPY FLX DX W/COLLJ SPEC WHEN PFRMD No date: COLONOSCOPY FLX DX W/COLLJ SPEC WHEN PFRMD Comment: Done in [place] unable to obtain 11/17/2013: COLONOSCOPY FLX DX [...] of breath. furosemide (LASI (more content not included)...[facility] 06-24-2024 History of Present illness Narrative* Cristhian Christensen, - 06/24/2024 10:07 AM EDT Hematologic problem(s): 1) Possible MGUS. HPI: The patient is a 68-year-old female with a past medical history as outlined below. Establish with new PCP prior to referral here. Had lab work done through [facility] that showed an increase in serum globulin [...] Lung nodules 03/10/2017: PAD (peripheral artery disease) ([facility]) Comment: 02/06/2022 PVR ank/jackson/toe bilat: RIGHT SIDE JITENDRA: 1.19; TBI: 0.84, WNL at rest LEFT SIDE: JITENDRA: 1.19; TBI: 0.96, WNL at rest 12/08/2017: Pulmonary HTN ([facility]) Comment: mild 06/24/2016: Squamous cell skin cancer, nasal tip 03/28/2017: Tobacco abuse PAST SURGICAL HISTORY 09/2004: ADDTL NECK SPINE FUSION 2000: CHOLECYSTECTOMY 1983: COLONOSCOPY 09/01/2012: COLONOSCOPY FLX DX W/COLLJ SPEC WHEN PFRMD No date: COLONOSCOPY FLX DX W/COLLJ SPEC WHEN PFRMD Comment: Done in [place] unable to obtain 11/17/2013: COLONOSCOPY FLX DX [...] Sclerae are anicteric bilaterally. LABS: Latest Ref [facility] 06/02/2024 WBC 3.70 - 11.00 k/uL 7.40 [...] Abs Lymph 1.00 - 4.00 k/uL 3.34 [place]au% % 5.4 Abs [place]au <0.87 k/uL 0.40 Eosin% % 1.5 Abs [...] Review Reviewed by Malachi Byrne MD, Ph.D ([id number]) Protein, Total 6.3 - 8.0 g/dL 8.3 [...] (MPA) Reviewed by Malachi Byrne MD, Ph.D ([id number]) Vamo Free, Serum 3.3 - 19.4 mg/L 39.2 [...] mL 3,200 Latest Ref Rng 06/07/2024 Result (UMPA) No M protein is identified. A poorly defined region of restricted mobility is presentthat may represent an M protein. ! Interpretation (UMPA) Poorly defined region of restricted mobility in [...] gammopathy. Clinical correlation is necessary. Staff Review ([facility]) Reviewed by Ileana Marina M.D. ASSESSMENT/PLAN: [...] which included preparing to see the patient, [id number] patient care, completing clinical documentation, obtaining and/or reviewing separately obtained history, performing a medically appropriate examination, counseling and educating the pat ient/family/caregiver, ordering medications, tests, or procedures, communicating with other HCPs (not separately reported), and communicating results to the patient/family/caregiver. Cristhian Christensen DO * Leann Burton LPN - 06/24/2024 9:42 AM EDT Est. Pt, discuss recent labs done 06/02 Leann Burton LPN documented in this encounterFostoria City Hospital08-15-2024 NoteHNO ID: [id number] Author: LEANN BURTON LPN Service: ? Author Type: LICENSED NURSE Type: Progress Notes Filed: 06/24/2024 11:19 Note Text: Est. Pt, discuss recent labs done 06/02 [facility] Telephone encounter Note * Telephone Encounter - Alicia Tidwell RN - 06/21/2024 12:43 PM EDT Spoke to provider's office and received recommendation to review with Dr. Christensen and if not willing to address it then would recommend ER or EC. Notified patient who verbalizes understanding. Alicia Tidwell RN [facility]08-12-2024 Miscellaneous Notes* Telephone Encounter - Alicia Tidwell RN - 06/21/2024 12:43 PM EDT Spoke to provider's office and received recommendation to review with Dr. Christensen and if not willing to address it then would recommend ER or EC. Notified patient who verbalizes understanding. Alicia Tidwell RN * Telephone Encounter - Alicia Tidwell RN - 06/21/2024 11:33 AM EDT Patient calls to schedule an appointment with Dr. Tovar for bilateral tarango pain and ankle cramping. Noted she isn't establishing until 09/01/2024. Recommended she contact Dr. Wallis's office that is listed as her current PCP. Patient reports she is unable to do that as he is no longer her PCP as he wasn't responsive to her requests. Reviewed notes patient has been having symptoms as reported in notes from Dr. Christensen. 06/02/2024. Has follow up 06/24/2024. Recommend continuing to follow with Luis. 06/02/[address] Christensen Fatigued. Pain in both tarango bones for [...] iron. May require parenteral iron due to snf PPI use. -OV following above. Potential MRI an bone marrow biopsy pending above Please review and advise, Alicia Tidwell RN documented in this encounterFostoria City Hospital08-12-2024 Telephone encounter Note * Telephone Encounter - Alicia Tidwell RN - 06/21/2024 11:33 AM EDT Patient calls to schedule an appointment with Dr. Tovar for bilateral tarango pain and ankle cramping. Noted she isn't establishing until 09/01/2024. Recommended she contact Dr. Wallis's office that is listed as her current PCP. Patient reports she is unable to do that as he is no longer her PCP as he wasn't responsive to her requests. Reviewed notes patient has been having symptoms as reported in notes from Dr. Christensen. 06/02/2024. Has follow up 06/24/2024. Recommend continuing [...] iron. 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 -OV following above. Potential MRI an bone marrow biopsy pending above Please review and advise, Alicia Tidwell RN [facility]07-30-2024 Telephone encounter Note* Telephone Encounter - Rakel Shore MA - 06/08/2024 9:35 AM EDT Pt notified of message below from Provider. Made her aware of Provider who is accepting pt's. Rakel Shore MA [facility]07-30-2024 Miscellaneous Notes* Telephone Encounter - Rakel Shore MA - 06/08/2024 9:35 AM EDT Pt notified of message below from Provider. Made her aware of Provider who is accepting pt's. Rakel Shore MA * Telephone Encounter - Clarice Petersen MD - 06/08/2024 9:29 AM EDT Yes, she actually has been seeing [facility] physicians and transferred her records out. * Telephone Encounter - Amanda Rose MA - 06/08/2024 9:24 AM EDT She last saw Maciej 6 months ago and saw you on 02/17/23. Is this technically re-establishing? Amanda Rose MA * Telephone Encounter - Clarice Petersen MD - 06/08/2024 9:23 AM EDT I think Dr. Tovar is currently accepting patients if she wants t re establish with the Clinic. * Telephone Encounter - Rakel Shore MA - 06/08/2024 8:48 AM EDT Routing to Dr. Petersen's Team to advise but believe Dr. Petersen's practice is closed. Pt left Maciej and went and re-established with an outside Provider. Rakel Shore MA documented in this encounterFostoria City Hospital07-30-2024 Telephone encounter Note * Telephone Encounter - Clarice Petersen MD - 06/08/2024 9:29 AM EDT Yes, she actually has been seeing [facility] physicians and transferred her records out. [facility]07-30-2024 Telephone encounter Note* Telephone Encounter - Amanda Rose MA - 06/08/2024 9:24 AM EDT She last saw Maciej 6 months ago and saw you on 02/17/23. Is this technically re-establishing? Amanda Rose MA [facility]07-30-2024 Telephone encounter Note* Telephone Encounter - Clarice Petersen MD - 06/08/2024 9:23 AM EDT I think Dr. Tovar is currently accepting patients if she wants t re establish with the Clinic. [facility]07-30-2024 Telephone encounter Note* Telephone Encounter - Jeremiah Galindo LPN - 06/08/2024 9:07 AM EDT Duplicate request. See other message regarding re-establishing care. Jeremiah Galindo LPN [facility]07-30-2024 Telephone encounter Note* Telephone Encounter - Rakel Shore MA - 06/08/2024 8:48 AM EDT Routing to Dr. Petersen's Team to advise but believe Dr. Petersen's practice is closed. Pt left Maciej and went and re-established with an outside Provider. Rakel Shore MA [facility]07-29-2024 Telephone encounter Note* Telephone Encounter - Cristhian Christensen DO - 06/07/2024 1:00 PM EDT Okay. Thanks. Just wanted to be sure it wasn't forgotten. Cristhian Christensen DO [facility] Work Phone: [phone] Miscellaneous Notes* Telephone Encounter - Cristhian Christensen DO - 06/07/2024 1:00 PM EDT Okay. Thanks. Just wanted to be sure it wasn't forgotten. Cristhian Christensen DO * Telephone Encounter - Leann Burton LPN - 06/07/2024 9:23 AM EDT Poofelia with pt. Given information concerning lab results, Started the urine collection this morning 06/07 Does plan on keeping F/U OV Leann Burton LPN * Telephone Encounter - Cristhian Christensen DO - 06/06/2024 3:47 PM EDT Can let her know labs so far do show anything worrisome. 24 hour urine collection in process? Keep OV. Cristhian Christensen DO documented in this encounterFostoria City Hospital07-29-2024 Telephone encounter Note * Telephone Encounter - Leann Burton LPN - 06/07/2024 9:23 AM EDT Poke with pt. Given information concerning lab results, Started the urine collection this morning 06/07 Does plan on keeping F/U OV Leann Burton LPN [facility]07-28-2024 Telephone encounter Note* Telephone Encounter - Cristhian Christensen DO - 06/06/2024 3:47 PM EDT Can let her know labs so far do show anything worrisome. 24 hour urine collection in process? Keep OV. Cristhian Christensen DO [facility]07-24-2024 NoteHNO ID: [id number] Author: CRISTHIAN CHRISTENSEN DO Service: ? Author Type: Physician Type: [...] DX W/COLLJ SPEC WHEN PFRMD Done in [place] unable to obtain COLONOSCOPY FLX DX W/COLLJ [...] mouth once daily.) Cholecal (more content not included)...[facility]07-24-2024 History of Present illness Narrative* Cristhian Christensen, - 06/02/2024 9:06 AM EDT Portions of [...] DX W/COLLJ SPEC WHEN PFRMD Done in [place] unable to obtain COLONOSCOPY FLX DX W/COLLJ [...] No jaundice or rash. No petechiae. 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 No focal motor [...] iron. May require parenteral iron due to snf PPI use. -OV following above. Potential MRI an bone marrow biopsy pending above. I spent a total of 45 minutes on the date of the service which included preparing to see the patient, [id number] patient care, completing clinical documentation, obtaining and/or reviewing separately obtained history, performing a medically appropriate examination, counseling and educating the pat ient/family/caregiver, ordering medications, tests, or procedures, communicating with other HCPs (not separately reported), and communicating results to the patient/family/caregiver. Cristhian A Masci, DO documented in this encounterFostoria City Hospital07-23-2024 Telephone encounter Note * Telephone Encounter - Rosie Tma - 06/01/2024 10:22 AM EDT Scheduled with patient. She states she does not drive and will try to get transportation for tomorrow. She will call back to reschedule if unable. [facility] Work Phone: [phone] Miscellaneous Notes* Telephone Encounter - Rosie Tam - 06/01/2024 10:22 AM EDT Scheduled with patient. She states she does not drive and will try to get transportation for tomorrow. She will call back to reschedule if unable. * Telephone Encounter - Monika Vila - 06/01/2024 8:35 AM EDT Lvm for patient to call back. 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 documented in this encounterFostoria City Hospital06-12-2024 NoteHNO ID: [id number] Author: PELON SKINNER MD Service: ? Author Type: Physician Type: [...] repeat fine-needle aspirations will need to be performed.[facility]06-03-2024 Instructions* Patient Instructions* Amanda Ruiz LPN - [...] you have any questions or concerns @ [phone]. Please make an appointment to follow up in one week with your physician and thank you for choosing the [facility]. Sincerely, Your General Surgery Care Team documented in this encounterFostoria City Hospital06-03-2024 History of Present illness Narrative* Pelon Skinner MD - 04/12/2024 2:10 PM EDT Preoperative [...] tolerated the procedure well. documented in this encounterFostoria City Hospital06-03-2024 Nurse Note* Amanda Ruiz LPN - [...] Visit completed when applicable. Amanda Ruiz LPN [facility]06-03-2024 Nurse Note* Amanda Ruiz LPN - [...] applicable. Amanda Ruiz LPN documented in this encounterFostoria City Hospital04-15-2024 History of Present illness Narrative* Pelon Skinner MD - 02/23/2024 4:20 PM EDT HISTORY AND PHYSICAL Юлия Hayden 1955 REFERRING PHYSICIAN: Jake Wallis MD CHIEF COMPLAINT: Consult HPI: The patient is a 68 year old female with a complaint of a right thyroid nodule. This thyroid nodule was found on Ultrasound by [facility]. The patient denies pain, denies difficulty swallowing, deniesrapid enlargement of the neck, deniesdysphagia, denies a change in the voice, denies hot or cold intolerence. The patient has not a prior history of neck radiation treatment. The patient is being seen by me today at the request of Dr. Wallis for my opinion and advice regarding Multinodular [...] DX W/COLLJ SPEC WHEN PFRMD Done in [place] unable to obtain COLONOSCOPY FLX DX W/COLLJ [...] After 4 Each 5 blood sugar diagnostic (CapptainUCH VERIO TEST STRIPS) test strip Test blood [...] entered by the nurse and reviewed by la Nursing Notes: Tamika Ya RN 02/23/2024 3:03 [...] A letter was sent to Dr. Jake Wallis MD, MD indicating the above finding for this patient. Return to Clinic: The patient is instructed to follow-up with me 1 week post operatively. Pelon Skinner III, MD documented in this encounterFostoria City Hospital04-15-2024 Nurse Note* Tamika Ya RN - [...] 12/24/2017 Tamika Ya RN documented in this encounterFostoria City Hospital04-05-2024 Miscellaneous Notes* Telephone Encounter - Kely Solano RN - 02/13/2024 3:10 PM EDT Let Giselle with [facility] know that Pt has switched PCPs, and is now with Jake Leigh. She states she will call them for refills. documented in this encounterFostoria City Hospital04-05-2024 Note. MICRO - Microbiology PROCEDURE: Culture [...] *1: This test was performed at: [address], [facility] , [facility] ([place])02-11-2024 Note. MICRO - Microbiology PROCEDURE: Affirm Pathogens [...] Locations *1: This test was performed at: [facility], [address] [place] [address], [id number] , [facility] ([place])01-31-2024 History of Present illness Narrative* Azul Mata MA - 01/31/2024 9:22 AM EDT POPULATION HEALTH NAVIGATION OUTREACH Action/FYI Last wellness exam 03.27.2023 Verify PCP Mammogram due 03/25/2024 or after Reason for Outreach Care Gap/HCC or Scheduling Wellness Visits Care Gaps due: Medicare Annual Wellness Visit Breast Cancer Screening Colorectal Cancer Screening Patient Contacted: Unable or unnecessary to reach patient: Left message [employer] message sent Navigation Signature: Azul Vega MA January 31, 2024 9:26 AM documented in this encounterFostoria City Hospital02-07-2024 Miscellaneous Notes* Telephone Encounter - Sirisha Man LPN - 12/17/2023 3:24 PM EST ARIADNA-09/29/23 Labs-09/29/23Sep-12/29/23 Sirisha Man LPN documented in this encounterFostoria City Hospital02-07-2024 Miscellaneous Notes* Telephone Encounter - Sirisha Man LPN - 12/17/2023 3:22 PM EST ARIADNA-09/29/23 Labs-09/29/23Sep-12/29/23 Sirisha Man LPN documented in this encounterFostoria City Hospital02-05-2024 Miscellaneous Notes* Telephone Encounter - Olga Rosa - 12/15/2023 4:03 PM EST Patient is requesting to hold off on schedule CT Scan for lung cancer screening due to finances. She will notify office when she is ready to schedule. documented in this encounterFostoria City Hospital02-02-2024 Miscellaneous Notes* Telephone Encounter - Kelley Del Valle LPN - 12/12/2023 9:24 AM EST Images from the original note were not included. Prior authorization approved Payer: [facility] [phone] Approval Details Authorized from November 10, 2023 [...] to its destination. To be filled at: [employer] [address] [place] [id number] [address] [facility] - [phone] Pharmacy notified and pt via my chart. * Telephone Encounter - Kelley Del Valle LPN - 12/11/2023 4:24 PM EST PA completed. * Telephone Encounter - Kelley Del Valle LPN - 12/11/2023 4:11 PM EST Electronic PA requested. * Telephone Encounter - Sade Garcia LPN - 12/11/2023 3:58 PM EST Patient sends [place] [employer] message that she now has new insurance and [employer] requires a prior authorization. Script is at [employer] [place]. documented in this encounterFostoria City Hospital12-07-2023 Miscellaneous Notes* Telephone Encounter - Barbie Gonsalez Ma - 10/16/2023 1:40 PM EST Patient last visit with PCP 09/29/2023 Follow up appointment scheduled 03/29/24 Barbie Gonsalez Ma documented in this encounterFostoria City Hospital12-07-2023 Miscellaneous Notes* Telephone Encounter - Akosua [...] advise. Akosua Mistry LPN documented in this encounterFostoria City Hospital12-05-2023 History of Present illness Narrative* Beatrice Henderson, RT(R) - 10/14/2023 1:00 PM EST Radiology [...] Brain SIGNATURE: RT Tyrese(R) PATIENT NAME: Юлия Hayden DATE: October 14, 2023 TIME: 1:06 PM documented in this encounterFostoria City Hospital12-05-2023 Instructions* Patient Instructions* Sherie Melgoza APRN.SCHOOL OFFICE ASSISTANT - 10/14/2023 10:17 AM EST SMOKING [...] to quit. Smokefree.gov Web Address: www.smokefree.gov Phone: [employer] Web Address: www.lung.org [address] [place] [address] [place]. [place] Phone: Phone: [facility] Smoking Cessation Program https://[facility] hospitalRe[facility] Compassstem.[facility]/marcus/docs/QuittingTobaccoUse.pdf CT Lung Screen Results The CT scan [...] to endocrinology. Others Lung Cancer Screening hotline: [phone] Lung Cancer Screening [phone] Billing Questions: or [email or web address] Specialist Providers: (Jackie Merritt CNP; Kailey Engle PA-C; Neyda Menjivar SCHOOL OFFICE ASSISTANT; Patti Rodrigues CNP, Carina Loya SCHOOL OFFICE ASSISTANT; Marcela Day SCHOOL OFFICE ASSISTANT; Alondra Pimentel PA-C; Sherie Melgoza CNP; Norma Merrill CNP; Michelle Beard PA-C; Alysia Rossi SCHOOL OFFICE ASSISTANT; [facility]; [facility]): [phone] documented in this encounterFostoria City Hospital12-05-2023 History of Present illness Narrative* Sherie [...] [Current Exam Type: annual LDCT-prior done at [facility] 03/19/2022 images available Number of Pack Years: 48 Current smoker (=0) The patient's smoking history is similar to prior year shared decision visit. REQUESTER: The referring provider advised the patient to have screening. HISTORY OF PRESENT ILLNESS: Юлия Hayden is a 68 year old Active smoker [...] pre-disease performance w/o restriction. Modified Medical Research [place] Dyspnea Scale (MMRC) I only get breathless [...] DX W/COLLJ SPEC WHEN PFRMD Done in [place] unable to obtain COLONOSCOPY FLX DX W/COLLJ [...] 8 hours as needed. blood sugar diagnostic (CapptainUCH VERIO TEST STRIPS) test strip Test blood [...] visualized the testing documented: 03/19/2022 LDCT at [facility] Prior Imaging: Last CT/CTA Chest/Lungs CT CHEST WO IVCON Exam End: 09/20/2019 2:43 PM (Final result) Narrative: * * *Final Report* * * DATE OF EXAM: Sep 20 2019 2:43PM [facility] 0541 - CT CHEST WO IVCON [...] of the left kidney. Nonspecific periportal lymphadenopathy. Bookkeeper Assistant: [facility] Transcribe Date/Time: Sep 21 2019 7:57A Dictated [...] Impression: IMPRESSION: No acute abnormality is identified. Bookkeeper Assistant: [facility] Transcribe Date/Time: Sep 10 2023 2:08P Dictated by : DUY MONTALVO MD... Pulmonary Function Testing: SPIROMETRY WITH DILATOR IF OBSTRUCTED ([id number]) - ordered on 02/28/22 [facility] [address] [place] [address] Test Date: 2022-02-28 Pat Name: SHANTEL HAYDEN Department: Room: Gender: Female Physician Extender: : 1955 Requested By: Order Number: [id number] Reading MD: Barbie Ruiz M.D. Interpretive Statements SP-ATS/ERS acceptability and repeatability standards for spirometry met. IMPRESSION: Spirometry is normal. Minimal small airways obstruction. Electronically Signed On 02-28-2022 16:02:48 EDT by Barbie Ruiz M.D. Site: WO ID: [id number] Name: SHANTEL HAYDEN Visit Date: 02/28/2022 Doctor: Physician Extender: Lata Dhillon Age: 66 Date of : [...] FEF75 (L/sec) 0.51 0.19 1.25 0.40 79 CIQ09-45 (L/sec) 1.96 0.96 3.33 1.43 73 PEF [...] Six year risk for lung cancer: 5.81% Https://Gateway EDI.[employer]/Japanese/result/male_5.8_yes_unknown http://www.Antenova/tiny/01sk4 https://youtu.be/[email or web address] I have determined that the patient [...] other counseling during this visit. Sherie Melgoza APRN.CNP NPI #: October 14, 2023 9:59 AM documented in this encounterFostoria City Hospital11-21-2023 Miscellaneous Notes* Telephone Encounter - Alicia [...] months. Telephone on 09/30/23 LIPID PANEL BASIC ThanksMaciej PA-C documented in this encounterFostoria City Hospital11-20-2023 History of Present illness Narrative* Franklin Mirza PA-C - 09/29/2023 10:41 AM EST 68 year old female with c/o 6 month follow up Right upper arm pain that is a dull ache. Says it started when she got the flu shot July [address] brain: 09/11/2023 CT brain WO: RESULT: Enterprise Solutions Architect (topogram) images: No additional findings. Post-operative change: [...] is out. 09/10/2023 was reviewed by Sahra Moreno SCHOOL OFFICE ASSISTANT: occurred after vomiting while sitting on the toilet. No significant injuries. Has orthostatic sx if stands quickly. On going for years, saw Automotive Parts Counter Associate Dr. Forman 09/21/2015 for same scenario as [...] Chronic obstructive pulmonary disease, unspecified copd type (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 Hyperlipidemia Lung nodules PAD (peripheral artery disease) ([facility]) 03/10/2017 02/06/2022 PVR ank/jackson/toe bilat: RIGHT SIDE JITENDRA: 1.19; TBI: 0.84, WNL at rest LEFT SIDE: JITENDRA: 1.19; TBI: 0.96, WNL at rest Pulmonary HTN ([facility]) 12/08/2017 mild Squamous cell skin cancer, nasal tip 06/24/2016 Tobacco abuse 03/28/2017 PAST SURGICAL HISTORY Procedure Laterality Date ADDTL NECK SPINE FUSION 09/2004 CHOLECYSTECTOMY 2000 COLONOSCOPY 1982 COLONOSCOPY FLX DX W/COLLJ SPEC WHEN PFRMD 09/01/12 COLONOSCOPY FLX DX W/COLLJ SPEC WHEN PFRMD Done in [place] unable to obtain COLONOSCOPY FLX DX W/COLLJ [...] data. Franklin Mirza PA-C documented in this encounterFostoria City Hospital11-01-2023 History of Present illness Narrative* Layla Barnes RT(R) - 09/10/2023 1:50 PM EDT Radiology Service Progress Note PATIENT NAME: Юлия Hayden DATE OF SERVICE: September 10, 2023 TIME: [...] 10, 2023 1:32 PM documented in this encounterFostoria City Hospital11-01-2023 Instructions* Patient Instructions* Sahra Moreno APRN.CNP - 09/10/2023 1:21 PM EDT If you develop visual changes, increasing head or neck pain, feel confused, have unsteady walking or vomiting go to ER documented in this encounterFostoria City Hospital11-01-2023 History of Present illness Narrative* Sahra [...] 8 hours as needed. blood sugar diagnostic ([employer] VERIO TEST STRIPS) test strip Test blood [...] RIBS/CHEST 3V AP RIB/OBLS/CXR RIGHT Sahra Moreno APRN.SCHOOL OFFICE ASSISTANT Prescription instructions reviewed with patient as applicable. [...] which included preparing to see the patient, [id number]-[id number] patient care, completing clinical documentation, obtaining and/or reviewing separately obtained history, performing a medically appropriate examination, counseling and educating the pat ient/family/caregiver, and ordering medications, tests, or procedures. documented in this encounterFostoria City Hospital11-01-2023 Miscellaneous Notes* Telephone Encounter - Gabbie [...] OTHER SYMPTOMS: Denies other symptoms. Protocols used: [id number] * Telephone Encounter - Tori Crump LPN [...] Ne. Tori Crump LPN documented in this [facility]09-29-[facility] Miscellaneous Notes* Telephone Encounter - Jeremiah Galindo LPN - 08/08/2023 10:12 AM EDT Patient phones requesting refills as follows: Requested Prescriptions Pending Prescriptions Disp Refills montelukast (SINGULAIR) 10 mg tablet 90 tablet 1 Sig: Take 1 tablet by mouth daily at bedtime. ARIADNA 05/01/23 NOV 08/26/23 Please review and advise. Jeremiah Galindo LPN documented in this encounterFostoria City Hospital09-20-2023 Miscellaneous Notes* Telephone Encounter - Marly Pham RN - 07/30/2023 8:24 AM EDT Detailed message of information below left on pt's identified VM. Marly Pham RN * Telephone Encounter - Franklin Mirza PA-C - 07/29/2023 6:07 PM EDT Can stop omelsartan (benicar) and recheck NV BP 4 weeks ThanksMaciej PA-C documented in this encounterFostoria City Hospital09-19-2023 Miscellaneous Notes* Telephone Encounter - Beatrice [...] ischemia. Maciej Albert PA-C documented in this encounterFostoria City Hospital09-18-2023 History of Present illness Narrative* Coty [...] Coty Campos RN Reversal agent used:none LOT [id number] EXP 02/01 IV SITE: IV palced by nuclear tecnologist POST EXAM PIV STATUS: Discontinued by Business Systems Lead PATIENT DISCHARGED TO: Nuclear Medicine Department for post stress imaging A Diagnostic radioactive procedure has taken place, with no further precautions necessary other than routine body substance precautions. More information regarding radiation safety can be found usingthis link: [email or web address]%20Protection%20-% 20Diagnostic%20Nuclear%20Medicine%20Procedures.pdf SIGNATURE: Coty Campos RN PATIENT NAME:Юлия Hayden DATE: 07/28/23 TIME: 12:14 PM documented in this encounterFostoria City Hospital09-18-2023 History of Present illness Narrative* Corina [...] Discontinued PROCEDURE TYPE: NM Stress: 12.3 mCi [id number] was administered IV for Rest Imaging at 08:20 by Corina De Souza. 33.8 mCi [id number]-Lzqbldc was administered IV for Stress Imaging at 09:36 by Corina De Souza. ADMINISTRATION TIME: PATIENT DISCHARGED TO: Ambulatory patient, left [place] department area. A Diagnostic radioactive procedure has taken place, with no further precautions necessary other than routine body substance precautions. More information regarding radiation safety can be found usingthis link: [email or web address]%20Protection%20-% 20Diagnostic%20Nuclear%20Medicine%20Procedures.pdf SIGNATURE: KAUR Best) PATIENT NAME: Юлия Hayden DATE: July 28, 2023 TIME: 10:00 AM PAGER/CONTACT #: documented in this encounterFostoria City Hospital07-17-2023 Miscellaneous Notes* Telephone Encounter - Vesna Barboza MA - 05/26/2023 2:38 PM EDT MC message sent. Vesna Barboza MA * Telephone Encounter - Clarice Petersen MD - 05/26/2023 12:32 PM EDT Hard to put it together from notes but I think they held her olmesartan? Lets resume it and have her follow up with me after stress test. documented in this [facility]07-10-2023 Miscellaneous Notes* Telephone Encounter - Akosua [...] advise. Akosua Mistry LPN documented in this [facility]07-10-2023 Miscellaneous Notes* Telephone Encounter - Sirisha Man LPN - 05/19/2023 12:59 PM EDT Patient phones requesting refills as follows: Requested Prescriptions Pending Prescriptions Disp Refills citalopram (CELEXA) 40 mg tablet 90 tablet 1 Sig: Take 1 tablet by mouth once daily. [facility]-05/01/23 Labs-05/01/23Sep-09/29/23 Please review and advise. Sirisha Man LPN documented in this [facility]07-10-2023 Miscellaneous Notes* Telephone Encounter - Sirisha Man LPN - 05/19/2023 12:58 PM EDT Patient phones requesting refills as follows: Requested Prescriptions Pending Prescriptions Disp Refills metFORMIN (GLUCOPHAGE) 500 mg tablet 90 tablet 5 Sig: Take 1 tablet by mouth three times daily. [facility]-05/01/23 Labs-05/01/23 NOV-09/29/23 Please review and advise. Sirisha Man LPN documented in this [facility] History of Present illness Narrative* Franklin [...] rest 04/02/2018 pharmacologic stress test nuclear imaging: [facility], Dr. Coy: Peak heart rate 93, 58% [...] k/uL 4.21 (H) 4.45 (H) 4.22 (H) [place]au% % 6.3 6.3 6.1 Abs [place]outeau <0.87 k/uL 0.57 0.59 0.50 Eosin% % [...] DX W/COLLJ SPEC WHEN PFRMD Done in [place] unable to obtain COLONOSCOPY FLX DX W/COLLJ [...] labs. Franklin Mirza PA-C documented in this encounterFostoria City Hospital06-19-2023 History of Present illness Narrative* Carlos Dickson MD - 04/28/2023 3:00 PM EDTAssociated Order(s): Large Joint Arthro/Inj: R subacromial bursa Post-Procedure Diagnose(s): Calcific tendonitis of right shoulder; Shoulder impingement Carlos Dickson MD Department of Orthopaedics Orthopaedics [address] [place] [address] Dept: [phone] Dept April 28, 2023 CHIEF COMPLAINT: Established [...] further evaluated if persistent symptoms Ms. Юлия Hayden was advised as to contrast therapies and/or to take analgesics/anti-inflammatories as needed and all contraindications were reviewed. OBJECTIVE: Ms. Юлия Hayden is a pleasant 67 year old in [...] subacromial bursa Informed Consent Consent Obtained: Verbal [place] Protocol A moment to CARE was completed. [...] rotator cuff calcific tendinosis. No acute abnormality Bookkeeper Assistant: TRI Transcribe Date/Time: Mar 28 2023 9:55P [...] DX W/COLLJ SPEC WHEN PFRMD Done in [place] unable to obtain COLONOSCOPY FLX DX W/COLLJ [...] anxiety) Carlos Dickson MD documented in this encounterFostoria City Hospital06-09-2023 Miscellaneous Notes* Telephone Encounter - Beatrice [...] patient. Beatrice Luna Ma documented in this encounterFostoria City Hospital05-16-2023 History of Present illness Narrative* Jyoti Obrien, RT(R) - 03/25/2023 2:20 PM EDT Radiology Service Progress Note PATIENT NAME: Юлия Hayden DATE OF SERVICE: March 25, 2023 TIME: [...] 25, 2023 2:17 PM documented in this encounterFostoria City Hospital05-12-2023 Miscellaneous Notes* Telephone Encounter - Silvia [...] 03/2023 Last refill; 02/2022 documented in this encounterFostoria City Hospital04-20-2023 History of Present illness Narrative* Lorin Ching RDMS - 02/27/2023 10:45 AM EDT Radiology Service Progress Note PATIENT NAME: Юлия Hayden DATE OF SERVICE: February 27, 2023 TIME: [...] 27, 2023 11:24 AM documented in this encounterFostoria City Hospital04-14-2023 Miscellaneous Notes* Telephone Encounter - Barbie [...] advise. Jeremiah Galindo LPN documented in this encounterFostoria City Hospital04-14-2023 Miscellaneous Notes* Telephone Encounter - Erica [...] be on safe side documented in this encounterFostoria City Hospital04-10-2023 History of Present illness Narrative* Clarice Petersen MD - 02/17/2023 1:52 PM EDT Patient presents with: Suture Removal: Right middle finger HPI: Patient presents today for office visit for ER follow up. HOSPITAL/ER FOLLOW UP: Reason for visit: laceration to right middle Which facility: [facility] Date of visit: 02/05/23 Diagnosis: laceration Treatment [...] for wheezing/shortness of breath. blood sugar diagnostic (SLIDTOUCH VERIO TEST STRIPS) test strip Test blood [...] DX W/COLLJ SPEC WHEN PFRMD Done in [place] unable to obtain COLONOSCOPY FLX DX W/COLLJ [...] plan. Clarice Petersen MD documented in this encounterFostoria City Hospital03-29-[address] Cotton [facility] February 05, 2023 7:14pm Note Date/Time February 05, 2023 6:2 8pm [facility] Medical Records Department [address] [place] [address] Emergency Department Summary 02/05/23 MR#: [id number] Acct: [id number] Name: ЮЛИЯ HAYDEN Rep #:[id number] 25 : 1955 67 From: [...] Funtion Narrative Narrative: Patient is a 67-year-old aaabt-wjil-bfqbtksq woman who presents with laceration dorsal surface [...] your Primary Care Provider. Call [facility] ([phone]) or report to the closest Emergency Room. Call 911 if necessary. 02/05/231913 <Electronically signed by Satya Cotton MD> Cosigner Signature (if applicable): CC: Dr. Clarice Petersen MD ~ Signed [facility] Work Phone: [phone]) 954-654003-29-2023 Hospital Discharge instructions Additional Instructions Tube1. Keep digit clean and dry as possible for the next 48 to 72 hours. Apply bacitracin ointment 3 times a day for the next 5 to 7 days.[facility] Work Phone: 1(340) 599-916903-20-2023 Miscellaneous Notes* Telephone Encounter - Jeremiah Galindo [...] How is she feeling? documented in this encounterFostoria City Hospital03-17-2023 Miscellaneous Notes* Telephone Encounter - Jeremiah Galindo LPN - 01/24/2023 2:03 PM EDT Patient phones requesting refills as follows: Requested Prescriptions Pending Prescriptions Disp Refills Cholecalciferol, Vitamin D3, 25 mcg (1,000 unit) cap 90 capsule 3 Sig: Take 1 capsule by mouth once daily. ARIADNA 01/23/23 NOV 03/27/23 Please review and advise. Jeremiah Galindo LPN documented in this encounterFostoria City Hospital03-16-2023 History of Present illness Narrative* Clarice [...] visit. Either the patient or their legal customer loyalty representative has been informed of the risks and benefits of -- and alternatives to -- treatment through a remote evaluation andconsents to proceed with the evaluation remotely. Has not felt well for a month. Started with some right chest wall, right rib cage tenderness and right arm pain Complains of vomiting and diarrhea. Had work in [facility] ER on the Work up negative. Did [...] DX W/COLLJ SPEC WHEN PFRMD Done in [place] unable to obtain COLONOSCOPY FLX DX W/COLLJ [...] continues. Clarice Petersen MD documented in this encounterFostoria City Hospital03-16-2023 Miscellaneous Notes* Telephone Encounter - Danielle De Leon LPN - 01/23/2023 11:29 AM EDT Pt calls [...] Danielle De Leon LPN documented in this encounterFostoria City Hospital02-23-2023 Miscellaneous Notes* Telephone Encounter - Rakel Shore Ma - 01/02/2023 4:51 PM EST See pt message. Looks like you said labs look good. Rakel Shore Ma documented in this encounterFostoria City Hospital02-16-2023 Instructions* Patient Instructions* Franklin Mirza PA-C [...] can improve orthostatic intolerance. documented in this encounterFostoria City Hospital02-16-2023 History of Present illness Narrative* Franklin [...] 1.00 - 4.00 k/uL 2.92 3.17 3.77 [place]au% % 5.8 5.1 5.0 Abs [place] <0.87 k/uL 0.38 0.43 0.41 Eosin% % [...] Chronic obstructive pulmonary disease, unspecified copd type ([facility]) Pulmonary htn ([facility]) Asthma with copd ([facility]) Tobacco abuse Chip Silo Tender: Dr.Elizabeth Ruiz, last appointment was in April [...] neuropathy, without long-term current use of insulin ([facility]) Diabetes Mellitus Type 2: Current medications: Metformin [...] eye exam: Goes annually, next appointment with automatic chief in 2022. Last foot exam: About a [...] cancer, nasal tip No new lesions. Last instrumental musician appointment was about 2019. Lumbar degenerative disc [...] DX W/COLLJ SPEC WHEN PFRMD Done in [place] unable to obtain COLONOSCOPY FLX DX W/COLLJ [...] Each 1 Each TOPICAL PRN Renata Sorensen APRN.SCHOOL OFFICE ASSISTANT 1 Each at 04/16/21 1357 HIV [...] 20 MG TABLET 2. SVT (supraventricular tachycardia) ([facility]) - ICD9: 427.89, ICD10: I47.1 - No new symptoms - Suspect orthostatic intolerance: se d/c instructions. Instructed to push fluids with some extra salt, use compression stockings, rise more slowly. 3. PAD (peripheral artery disease) (HCC) - ICD9: 443.9, ICD10: I73.9 - No current symptoms - Continue current medications 4. Chronic obstructive pulmonary disease, unspecified COPD type (HCC) - ICD9: 496, ICD10: J44.9 - No new changes - Continue current medications 5. Pulmonary HTN (HCC) - ICD9: 416.8, ICD10: I27.20 - Stable 6. Asthma with COPD (HCC) - ICD9: 493.20, ICD10: J44.9 - Mild [...] topics. Franklin Mirza PA-C documented in this encounterFostoria City Hospital01-13-2023 Miscellaneous Notes* Telephone Encounter - Sade Garcia LPN - 11/22/2022 5:11 PM EST Scheduled 12/13/22 documented in this encounterFostoria City Hospital12-16-2022 Miscellaneous Notes* Telephone Encounter - Jeremiah [...] advise. Jeremiah Galindo LPN documented in this encounterFostoria City Hospital09-29-2022 Nurse Note* Beatrice Luna Ma - 08/08/2022 1:24 PM EDT EVENT MONITOR DISPOSABLE PATCH INSTRUCTIONS Patient Name: Юлия Hayden [facility] Number: [id number] Skin prepped and cleansed with alcohol Patch secured to prepped area Monitor Activated Serial #: [id number] Patient Instructed: Prescribed order timeframe Bathing guidelines Usage of event button and diary documentation Return of monitor at the end of prescribed order Call with problems [phone] or [phone]. [phone] Patient expresses a good understanding of instructions Beatrice Luna Ma documented in this encounterFostoria City Hospital09-29-2022 Instructions* Patient Instructions* M Wali Mirza PA-C - 08/08/2022 11:57 AM EDT HEALTH MAINTENANCE: Your Body mass index is 27.96 kg/m . (Target BMI: 19-25) Regular aerobic exercise, low fat diet, and periodic exams are recommended Living Will & Medical Power of Garment Finisher recommended Periodic Pap smear per risk profile. [...] your usual activities immediately. documented in this encounterFostoria City Hospital09-29-2022 History of Present illness Narrative* Franklin Mirza PA-C - 08/08/2022 11:20 AM EDT Welcome to Medicare Annual wellness Shantel Hayden is a 67 year old female who [...] DX W/COLLJ SPEC WHEN PFRMD Done in [place] unable to obtain COLONOSCOPY FLX DX W/COLLJ [...] OF 10/13/2017 Excision nasal mass, Dr Juarez Steven REMOVE TONSIL AND ADENOI UNDER AGE 12 [...] for wheezing/shortness of breath. blood sugar diagnostic (CapptainUCH VERIO TEST STRIPS) test strip Test blood [...] and concerns from family or care takers. 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 ACTIVE PROBLEM LIST Chronic obstructive pulmonary disease, unspecified copd type (hcc) Asthma with copd (hcc) Pulmonary htn (hcc) Tobacco abuse Chip Silo Tender: none. Interval history: Current medications: Advair 250-50 [...] are pulsing. Dizziness: as above always off-balance. [place] into doors, bueno. Notes vertigo if extends [...] above Last EGD and/or colonoscopy: 02/18/2022 EGD [facility] small hiatal hernia without gross reflux Lung [...] Chronic obstructive pulmonary disease, unspecified COPD type ([facility]) - ICD9: 496, ICD10: J44.9 (primary diagnosis) 2. Asthma with COPD ([facility]) - ICD9: 493.20, ICD10: J44.9 Progressive SOB but little exercise. PFT WNL. 3. Pulmonary HTN ([facility]) - ICD9: 416.8, ICD10: I27.20 [...] weight loss. 7. PAD (peripheral artery disease) ([facility]) - ICD9: 443.9, ICD10: I73.9 No current sx 8. Type 2 diabetes mellitus with diabetic neuropathy, without long-term current use of insulin ([facility]) - ICD9: 250.60, 357.2, ICD10: E11.40 Controlled. [...] MG/5 ML INTRAVENOUS SYRINGE - INSERT IV ([place]) - IV DISCONTINUE 25. SVT (supraventricular tachycardia) [...] history context and comparison. documented in this encounterFostoria City Hospital08-26-2022 Miscellaneous Notes* Telephone Encounter - Beatrice Luna Ma - 07/05/2022 3:06 PM EDT ARIADNA 06/12/22 NOV 12/13/22 documented in this encounterFostoria City Hospital08-03-2022 History of Present illness Narrative* Clarice [...] trapped occasionally in her vagina. Suggested seeing iron handler if an issue. Component Latest Ref Rng [...] DX W/COLLJ SPEC WHEN PFRMD Done in [place] unable to obtain COLONOSCOPY FLX DX W/COLLJ [...] PAST SURGICAL HISTORY OF 10/13/[address] Juarez henderson REMOVE TONSIL AND ADENOI UNDER AGE 14 [...] six months and prn. documented in this encounterFostoria City Hospital07-25-2022 Miscellaneous Notes* Telephone Encounter - Paola [...] needs diagnosis. Please advise documented in this encounterFostoria City Hospital07-15-2022 History of Present illness Narrative* Clarice [...] for wheezing/shortness of breath. blood sugar diagnostic ([employer] VERIO TEST STRIPS) test strip Test blood [...] DX W/COLLJ SPEC WHEN PFRMD Done in [place] unable to obtain COLONOSCOPY FLX DX W/COLLJ [...] MG TABLET Clarice Petersen documented in this encounterFostoria City Hospital07-15-2022 Nurse Note* Sade Garcia LPN - 05/24/2022 4:46 PM EDT Patient complains of: left arm shoulder pain. Duration: 5 days Location:back of shoulder down arm in armpit Aggravating factors:lifting arm is more painful Things that improve symptoms :has used Aleve some Denies numbness tingling Recalls no injury documented in this encounterFostoria City Hospital06-24-2022 Miscellaneous Notes* Telephone Encounter - Sue [...] you. Sue Wong LPN documented in this encounterFostoria City Hospital06-24-2022 Miscellaneous Notes* Telephone Encounter - Aniyah Grubbs LPN - 05/03/2022 1:53 PM EDT ariadna--03/12/22 Next-- 06/12/22 Last refills- Citalopram 02/22/2020 30 with 3 refills Metformin 10/16/21 90 with 5 refills odansetron 11/05/21 30 with 5 refills Furosemide 11/05/21 30 with 5 refills Rosuvastatin 11/05/21 30 with 5 refills pantoprazole 12/07/21 30 with 5 refills Last labs-- 03/12/22 documented in this encounterFostoria City Hospital05-05-2022 Nurse Note* Lyly Velarde RN - 03/14/2022 8:48 AM EDT Patient ride called and on way * Lyly Velarde RN - 03/14/2022 8:35 AM EDT Patient in bed, will continue to monitor, safety maintained, call light within reach. RR even and unlabored, no complaints, all needs met at this time. documented in this encounterFostoria City Hospital05-05-2022 Miscellaneous Notes* Operative Report - Fran Salcido MD - 03/14/2022 8:10 AM EDT OPERATIVE/PROCEDURE REPORT LOG ID: [id number] Surgery/Procedure Date: 03/14/2022 Incision/Procedure Start Time: 8:24 AM Incision Close/Procedure End Time: 8:28 AM Surgeon(s)/Proceduralist(s) and Commercial Review Appraiser(s): Fran Salcido MD - Proceduralist No Additional [...] SIGNATURE: Fran Salcido MD PATIENT NAME: Shantel Hayden DATE: March 14, 2022 TIME: 8:39 AM PAGER/CONTACT #: [phone] documented in this encounterFostoria City Hospital05-05-2022 History of Present illness Narrative* LAZARO Mason - 03/14/2022 8:00 AM EDT H&P done on 03/12/[address] Petersen. documented in this encounterFostoria City Hospital05-04-2022 Miscellaneous Notes* Telephone Encounter - Barbie Napier - 03/13/2022 2:03 PM EDT Please put in a new mammogram order . She is scheduled for 04/01/22. She came in to early and the order was released. Thank you, Barbie documented in this encounterFostoria City Hospital05-04-2022 History of Present illness Narrative* RT Parmjit(R) - 03/13/2022 1:50 PM EDT Radiology Service Progress Note PATIENT NAME: Shantel Hayden DATE OF SERVICE: March 13, 2022 TIME: [...] 13, 2022 1:50 PM documented in this encounterFostoria City Hospital05-03-2022 History of Present illness Narrative* Clarice [...] been listed as having pad by cardiology. [place] her pulses may be reduced but not [...] Abs Lymph 1.00 - 4.00 k/uL 3.77 [place]% % 5.0 Abs [place] <0.87 k/uL 0.41 Eosin% % 0.7 Abs [...] DX W/COLLJ SPEC WHEN PFRMD Done in [place] unable to obtain COLONOSCOPY FLX DX W/COLLJ [...] EDUARDO SCREENING Clarice Petersen documented in this encounterFostoria City Hospital04-27-2022 Miscellaneous Notes* Telephone Encounter - Paola Kumar LPN - 03/06/2022 3:01 PM EDT [facility] calling to question Benicar rx, one [...] advise. Jeremiah Galindo LPN documented in this encounterFostoria City Hospital04-21-2022 Instructions* Patient Instructions* Barbie Ruiz MD - 02/28/2022 11:18 AM EDT Low dose chest CT for cancer screening to be done at [facility] documented in this encounterFostoria City Hospital04-21-2022 History of Present illness Narrative* Barbie Ruiz MD - 02/28/2022 11:00 AM EDT Images from the original note were not included. . [facility] Note Patient name: Shantel Hayden PCP: Clarice Petersen MD CC: Asthma HPI: Shantel Hayden 66 year old female smoker with PMH [...] Abs Lymph 1.00 - 4.00 k/uL 3.77 [place]% % 5.0 Abs [place] <0.87 k/uL 0.41 Eosin% % 0.7 Abs [...] No Pets: None. 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 Cigarette smoker -Current one half a pack a day, former 1 pack a day smoker for over 30 years -No obvious adverse sequelae -Smoking cessation recommended 4. GERD -GERD not controlled despite H2 sharif and proton pump inhibitor. This could be contributing to her persistent asthma symptoms -Recommend GI evaluation Barbie Ruiz MD [facility] documented in this encounterFostoria City Hospital04-21-2022 Nurse Note* Akosua Mistry LPN - 02/28/2022 10:28 AM EDT Intake information documented in the prior visit with Lata Dhillon, ELASTIC YARN TWISTER, RPFT today. documented in this encounterFostoria City Hospital04-21-2022 Procedure note* Lata Dhillon RRT - [...] NAME: Lata Dhillon RRT PATIENT NAME: Shantel Hayden DATE: February 28, 2022 TIME: 10:27 AM documented in this encounterFostoria City Hospital04-21-2022 History of Present illness Narrative* Lata Dhillon RRT - 02/28/2022 10:14 AM EDT PULM FUNCTION SMARTBLOCK: Provider: Clarice Petersen MD Assisting Tech: Lata Dhillon RRT Spirometry: 1 Exhaled Nitric Oxide: 1 System: [id number] documented in this encounterFostoria City Hospital04-05-2022 History of Present illness Narrative* Mason [...] others. I have seen and examined Shantel Hayden. I have discussed the case and the management of this patient's care with the Resident/Fellow, if applicable. I also have reviewed and agree with the assessment and plan as stated above and agree withall of its relevant components. Mason Smith MD February 12, 2022 2:33 PM documented in this encounterFostoria City Hospital03-30-2022 History of Present illness Narrative* Evelia Cevallos RDMS - 02/06/2022 11:30 AM EDT Radiology Service Progress Note PATIENT NAME: Shantel Hayden DATE OF SERVICE: February 06, 2022 TIME: [...] 06, 2022 12:31 PM documented in this encounterFostoria City Hospital03-29-2022 Miscellaneous Notes* Telephone Encounter - Jeremiah Galindo LPN - 02/05/2022 11:46 AM EDT Patient phones requesting refills as follows: Pending Prescriptions Disp Refills CHOLECALCIFEROL (VITAMIN D3) 25 MCG (1,000 UNIT) CAPSULE 90 capsule 3 Sig: Take 1 capsule by mouth once daily. KEVAN: No ARIADNA 01/24/22 NOV 03/12/22 Please review and advise. Jeremiah Galindo LPN documented in this encounterFostoria City Hospital03-28-2022 Miscellaneous Notes* Telephone Encounter - Theresa [...] bp in two weeks documented in this encounterFostoria City Hospital11-10-2021 History of Present illness Narrative* Spencer Amin, RT(R) - 09/19/2021 5:10 PM EST Radiology Service Progress Note PATIENT NAME: Shantel Hayden DATE OF SERVICE: September 19, 2021 TIME: [...] 19, 2021 5:15 PM documented in this encounterFostoria City Hospital06-11-2019 History of Past illness Narrative* Problem [...] of this encounter (statuses as of 02/04/2022) [facility] Narrative* Problem [...] of this encounter (statuses as of 02/04/2022) [facility] Narrative* Problem [...] of this encounter (statuses as of 02/05/2022) [facility] Narrative* Problem [...] of this encounter (statuses as of 02/07/2022) [facility] Narrative* Problem [...] of this encounter (statuses as of 02/12/2022) [facility] Narrative* Problem [...] of this encounter (statuses as of 02/28/2022) [facility] Narrative* Problem [...] of this encounter (statuses as of 02/28/2022) [facility] Narrative* Problem [...] of this encounter (statuses as of 03/06/2022) [facility] Narrative* Problem [...] of this encounter (statuses as of 03/12/2022) [facility] Narrative* Problem [...] of this encounter (statuses as of 03/13/2022) [facility] Narrative* Problem [...] of this encounter (statuses as of 03/14/2022) [facility] Narrative* Problem [...] of this encounter (statuses as of 03/15/2022) [facility] Narrative* Problem [...] of this encounter (statuses as of 03/19/2022) [facility]ative* Problem [...] of this encounter (statuses as of 05/03/2022) [facility]ative* Problem [...] of this encounter (statuses as of 05/03/2022) [facility]ative* Problem [...] of this encounter (statuses as of 05/05/2022) [facility]* Problem [...] of this encounter (statuses as of 05/25/2022) [facility]ative* Problem [...] of this encounter (statuses as of 06/12/2022) [facility]* Problem [...] of this encounter (statuses as of 07/05/2022) [facility]* Problem [...] of this encounter (statuses as of 08/09/2022) [facility]* Problem [...] of this encounter (statuses as of 08/09/2022) [facility]* Problem [...] of this encounter (statuses as of 09/11/2022) [facility]* Problem [...] of this encounter (statuses as of 10/25/2022) [facility]* Problem [...] of this encounter (statuses as of 11/22/2022) [facility]* Problem [...] of this encounter (statuses as of 12/26/2022) [facility]* Problem [...] of this encounter (statuses as of 01/03/2023) [facility]* Problem [...] of this encounter (statuses as of 01/23/2023) [facility]* Problem [...] of this encounter (statuses as of 01/24/2023) [facility]* Problem [...] of this encounter (statuses as of 01/24/2023) [facility]* Problem [...] of this encounter (statuses as of 01/25/2023) [facility]* Problem [...] of this encounter (statuses as of 01/27/2023) [facility]* Problem [...] of this encounter (statuses as of 02/18/2023) [facility] Problem [...] of this encounter (statuses as of 02/21/2023) [facility]* Problem [...] of this encounter (statuses as of 02/21/2023) [facility] Problem [...] of this encounter (statuses as of 03/21/2023) [facility] Problem [...] of this encounter (statuses as of 04/19/2023) [facility] Problem [...] of this encounter (statuses as of 04/29/2023) [facility] Problem [...] of this encounter (statuses as of 05/02/2023) [facility] Problem [...] of this encounter (statuses as of 05/19/2023) [facility] Problem [...] of this encounter (statuses as of 05/19/2023) [facility] Problem [...] of this encounter (statuses as of 05/20/2023) [facility]* Problem [...] of this encounter (statuses as of 05/27/2023) [facility]* Problem Noted Date Diagnosed Date Resolved Date Numbness and tingling of bot h lower extremities 04/20/2019 03/26/2021 Paresthesia 04/20/2019 03/26/2021 Controlled type 2 diabetes m ellitus without complication, without long-term current use of insulin 03/28/2017 11/28/2017 PAD (peripheral artery disease) 03/10/2017 03/30/2023 Overview: 02/06/2022 PVR ank/jackson/toe bilat: RIGHT SIDE JITNEDRA: 1.19; TBI: 0.84, WNL at rest LEFT [...] of this encounter (statuses as of 06/25/2023) [facility] Narrative* Problem [...] of this encounter (statuses as of 07/22/2023) [facility]* Problem [...] of this encounter (statuses as of 07/28/2023) [facility]* Problem [...] of this encounter (statuses as of 07/30/2023) [facility]* Problem [...] of this encounter (statuses as of 08/08/2023) [facility]* Problem [...] of this encounter (statuses as of 09/10/2023) [facility] Problem [...] of this encounter (statuses as of 09/11/2023) [facility]* Problem [...] of this encounter (statuses as of 09/12/2023) [facility]* Problem [...] of this encounter (statuses as of 09/12/2023) [facility] Problem [...] of this encounter (statuses as of 09/12/2023) [facility] Problem [...] of this encounter (statuses as of 09/12/2023) [facility] Problem [...] of this encounter (statuses as of 09/29/2023) [facility] Problem [...] of this encounter (statuses as of 09/30/2023) [facility] Problem [...] of this encounter (statuses as of 10/15/2023) [facility] Problem [...] of this encounter (statuses as of 10/15/2023) [facility] Problem [...] of this encounter (statuses as of 10/16/2023) [facility] Problem [...] of this encounter (statuses as of 10/17/2023) [facility] Problem [...] of this encounter (statuses as of 12/12/2023) [facility] Problem [...] of this encounter (statuses as of 12/12/2023) [facility] Problem [...] of this encounter (statuses as of 12/16/2023) [facility] Problem [...] of this encounter (statuses as of 12/18/2023) [facility] Problem [...] of this encounter (statuses as of 12/18/2023) [facility] Problem [...] of this encounter (statuses as of 01/31/2024) [facility] Problem [...] of this encounter (statuses as of 02/13/2024) [facility] Problem [...] of this encounter (statuses as of 02/24/2024) [facility] Author Carlos Jorgensen [facility] Note Date/Time August 13, 2025 5: 49am [facility] Medical Records Department [address] [place] [address] Emergency Department Summary 08/13/25 MR#: [id number] Acct: [id number] Name: ЮЛИЯ HAYDEN Rep #:[id number] 05 : 1955 70 From: Carlos Jorgensen MD PCP: Dr. Dennis Hamm MD Status:REG ER Location: ED HPI History of Present Illness Chief Complaint: Chest Pain Informant: patient and EMS Narrative Narrative: Patient is a 70-year-old female with no significant PMHx presenting with chest pain, lightheadedness, and abdominal pain. - Reports episodes of chest pain and lightheadedness, with the chest pain preceding the lightheadedness. Tonight, started with chest discomfort about 3 hrs ago, followed by lightheadedness and the sensation that her heart rate was too slow. - Describes sensation of heart beating too slow and racing at times; usuallyfeels heart beating fast enough to notice, but tonight felt it slowed way down. - Checked BP tonight when feeling poorly, which was 78 and her HR was 72 bpm. - Denies dyspnea or emesis since onset of symptoms tonight. - Has been experiencing frequent emesis over the past 3 weeks, with difficulty keeping food down but able to maintain fluid intake. - Yesterday, while sitting on the toilet, left-sided abdominal pain began, described as feeling like it was a rock, then passed out and woke up on the floor without apparent injury; denies straining for a bowel movement at that time. - Reports intermittent lower abdominal pain, primarily on the left side, for thepast 3 weeks, often associated with emesis and sensations of heart skipping a beat. - Only episode of syncope occurred yesterday. - Denies hematochezia or melena. - Recently underwent a screening echocardiogram, which was reportedly normal. [facility] Medical History Right shoulder pain Left shoulder [...] History of stress test Dysphagia Depression Anxiety Home Medications ?Medication ?Instructions ?Recorded ?Last Taken ?Type famotidine 20 mg tablet 20 mg PO QDAY 11/08/2403/08 History fluticasone 250 mcg-salmeterol 50 1 inh inhalation BID 11/08/24 03/05/25 History mcg/dose blistr powdr for inhalation aspirin 81 mg tablet,delayed 81 mg PO QDAY 02/02/25 History release (Adult Low Dose Aspirin) clobetasol 0.05 % topical cream 1 g topical QDAY PRN r smooth #15 grams 03/16/25 Unknown Rx cholecalciferol (vitamin D3) 25 1,000 unit PO DAILY #9 0 caps 04/26/25 Unknown Rx mcg (1,000 unit) capsule trazodone 100 mg tablet 100 mg PO QHS sleep #90 tabs 04/26/25 Unknown Rx pantoprazole 40 mg tablet,delayed 40 mg PO QDAY #90 ta bs 05/09/25 Unknown Rx release denosumab 60 mg/mL subcutaneous 60 mg subcut [id number] #1 mL 05/24/25 Unknown Rx syringe (Prolia) blood sugar diagnostic (Accu-Chek #100 ea 06/27/25 Unk nown Rx Guide test strips) blood-glucose meter (Accu-Chek #1 ea 06/27/25 Unknown Rx Guide Glucose Meter) lancets (Accu-Chek Softclix #200 ea 06/27/25 Unknown R x Lancets) coenzyme Q10 100 mg capsule (Co 200 mg (2 x 100 mg) PO DAILY 07/28/25 Unknown Rx Q-10) supplement #180 caps furosemide 20 mg tablet 20 mg PO DAILY #90 tabs 07/11 07/04 Unknown Rx meloxicam 15 mg tablet 15 mg PO QDAY #90 tabs 07/28 Unknown Rx montelukast 10 mg tablet 10 mg PO QHS allergies #90 t abs 07/28/25 Unknown Rx atorvastatin 10 mg tablet (Lipitor) 10 mg PO QHS #30 t abs 08/11/25 Unknown Rx dulaglutide 1.5 mg/0.5 mL 1.5 mg (0.5 mL) subcut QWEEK #2 mL 08/11/25 Unknown Rx subcutaneous pen injector lisinopril 2.5 mg tablet 2.5 mg PO QDAY #30 tabs 01/04 Unknown Rx metformin 500 mg tablet 500 mg PO BID #180 tabs 01/04 Unknown Rx ondansetron 8 mg disintegrating 8 mg PO Q8H PRN nausea and 08/13/25 Unknown Rx tablet vomiting #20 tabs Allergy/AdvReac Type Severity Reaction Status Date / Time ciprofloxacin HCl (From Allergy Rash Verified 08/13/25 00:38 Cipro) clindamycin Allergy throat Verified 08/13/25 00:38 swelling-see comment section fluoxetine HCl (From Prozac) Allergy Rash Verified 08/13/25 00:38 metronidazole Allergy Anaphylaxis Verified 08/13/25 00:38 Penicillins Allergy Rash Verified 08/13/25 00:38 Sulfa (Sulfonamide Allergy Rash Verified 08/13/25 00:38 Antibiotics) adhesive AdvReac redness Verified 08/13/25 00:38 with bandaids amoxicillin trihydrate (From AdvReac thrush/yeast Verified 08/13/25 00:38 Augmentin) infection potassium clavulanate (From AdvReac thrush/yeast Verified 08/13/25 00:38 Augmentin) infection rosuvastatin AdvReac Diarrhea Verified 08/13/25 00:38 Family History Sister Colon polyps Hypertension Asthma Depression Melanoma Thyroid disorder Brother Colon polyps Parkinson disease Myocardial infarction Heart disease Mother Colon polyps Colon cancer COPD (chronic obstructive pulmonary disease) Arthritis Father Colon polyps Heart disease Myocardial infarction Grandmother Alcoholism Grandfather Diabetes Surgical History History of bladder surgery H/O cataract extraction S/P thyroid biopsy Hx of squamous cell carcinoma excision History of excision of mass (10/13/17) History of esophagogastroduodenoscopy (EGD) History of colonoscopy History of tonsillectomy History of cholecystectomy History of fusion of cervical spine (~2003) H/O: hysterectomy Social History adopted: No household members: none number of children: 3 current occupational 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 [employer] pets and animals: No Smoking Status: Current every day smoker tobacco type: cigarettes quit status: not considering quitting alcohol intake: never substance use type: does not use caffeine: Yes seatbelt use: always do you feel safe at home: Yes ROS ROS ED Constitutional Constitutional ED: Denies chills or fever(s) Eyes Eyes: Denies change in vision or diplopia ENT ENT ED: Denies rhinorrhea or sore throat Cardiovascular Cardiovascular: Reports as per HPI, chest pain, fatigue, lightheadedness, palpitations, racing heartbeat and syncope; Denies leg edema or radiating jaw, neck or arm pain Respiratory/Chest Respiratory/Chest: Denies cough or dyspnea Gastrointestinal Gastrointestinal: Reports abdominal pain, nausea and vomiting; Denies diarrhea Genitourinary Genitourinary ED: Denies dysuria or hematuria Musculoskeletal Musculoskeletal: Denies back pain or neck pain Integumentary Denies abscess or rash Neurologic Neurologic: Denies headache(s), paresthesias or weakness Psychiatric Psychiatric: Denies anxiety or suicidal thoughts EXAM Physical Exam Const Vital Signs: 08/13/25 00:34 08/13/25 00:44 08/13/25 00:57 Temperature 98.1 F Temperature Source Oral Pulse Rate 68 Respiratory Rate 16 Respiratory Pattern Normal Blood Pressure 170/75 H Blood Pressure Mean 106 Pulse Ox 100 Oxygen Delivery Method Room Air Room Air 08/13/25 02:09 08/13/25 03:08 08/13/25 04:05 Temperature Temperature Source Pulse Rate 68 68 59 L Respiratory Rate 16 16 18 Respiratory Pattern Blood Pressure 125/62 H 132/79 H 110/59 L Blood Pressure Mean 83 96 76 Pulse Ox 98 98 98 Oxygen Delivery Method Room Air Room Air Room Air 08/13/25 05:12 Temperature Temperature Source Pulse Rate 68 Respiratory Rate 16 Respiratory Pattern Blood Pressure 114/65 Blood Pressure Mean 81 Pulse Ox 98 Oxygen Delivery Method Room Air Positive well nourished and well developed General Appearance ED: well developed and NAD HEENT Reports moist mucous membranes normocephalic and atraumatic Eyes PERRL and EOMs intact bilaterally Neck full ROM and supple Resp normal respiratory effort and clear to auscultation bilaterally Cardio regular rate, regular rhythm and no murmurs Rate: Negative for bradycardia or tachycardic GI non-distended GI Narrative: Tender throughout left side worse in the left lower quadrant no guarding reboundno pulsatile mass no Noman sign no Leach Rcihardson sign. Auscultation: normoactive bowel sounds Palpation: soft Back/Spine no CVA tenderness General Back: other FROM Extremity normal to inspection General Extremety ED: Negative for edema, pulses abnormal or tenderness General Extremity: Negative for edema or pulses abnormal Neuro oriented x3, CN's II-XII intact bilaterally and no sensory deficits noted Sensorium / Orientation: awake and alert Motor Exam: strength 5/5 throughout Psych mental status grossly normal Skin no rashes or lesions noted and no wounds Heart Score History: Slightly/Non-Suspicious ECG: Normal Age: >/= 65 years Risk Factors: >/= 3 Risk Factors or History of CAD Troponin: </= Normal Limit Score: 4 MDM MDM MDM Narrative Medical decision making narrative: Assessment: The patient is a 70-year-old female presenting for episodic chest discomfort followed by lightheadedness, recurrent morning emesis, and intermittent left lower quadrant abdominal pain. Her EKG obtained on arrival is 100% normal. Serial troponins trended 8 - 11 - 8; in the setting of a normal EKGthis effectively rules out acute coronary syndrome. CT abdomen/pelvis demonstrates diffuse gastric wall thickening consistent with gastritis, diffuse colonic wall thickening suggestive of colitis, diffuse colonic diverticulosis without diverticulitis, and a small sliding hiatal hernia. Chest discomfort is likely gastrointestinal in origin. The single transient syncopal episode yesterday is best explained by a vasovagal mechanism. Plan: - IV crystalloid bolus administered in the ED. - IV Zofran given; prescription for outpatient use provided. - Small dose IV morphine given for abdominal pain. - Continue home pantoprazole. - We discussed possible empiric antibiotics for the colitis which is of unknown etiology, she declined saying that she has lots of reactions to antibiotics and prefers not to try this. - Discharged home in improved and stable condition with instructions to follow up with primary care. Diagnostics: - EKG interpreted: normal sinus rhythm; no acute ST-T changes. Independently interpreted by , Carlos Jorgensen. - Labs: serial troponins 8 ng/L ? 11 ng/L ? 8 ng/L. - Chest X-ray (one view): no acute abnormalities. - CT abdomen/pelvis: diffuse gastric wall thickening (gastritis); diffuse colonic wall thickening (colitis); diffuse colonic diverticulosis without diverticulitis; small sliding hiatal hernia; no perforation or pneumatosis. Reevaluations: - Reexamined after treatment: chest discomfort resolved, abdominal pain improved, tolerating oral fluids. Lab Data Attestation: I reviewed the patient's lab results. Labs: Laboratory Results - last 24 hr 08/13/25 08/13/25 08/13/25 00:43 02:39 04:39 WBC 9.2 RBC 4.36 Hgb 12.4 Hct 36.4 L MCV 83.5 MCH 28.4 MCHC 34.1 RDW Std Deviation 45.1 H RDW Coeff of Mary 14.7 H Plt Count 302 MPV 9.0 Immature Gran % (Auto) 0.300 Neut % (Auto) 45.5 L Lymph % (Auto) 47.5 H [place] % (Auto) 5.9 Eos % (Auto) 0.5 Baso % (Auto) 0.3 Absolute Neuts (auto) 4.2 Absolute Lymphs (auto) 4.37 Nucleated RBC % 0 APTT 26.0 Sodium 132 L Potassium 3.9 Chloride 94 L Carbon Dioxide 23.1 Anion Gap 14 BUN 9 Creatinine 0.66 L Estim Creat Clear Calc 84.96 Est GFR (MDRD) Non-Af 96 BUN/Creatinine Ratio 13.7 Glucose 104 H Calcium 9.4 Troponin T High Sens 8 Troponin T Hi Sens 2 Hr 11 Troponin T Hi Sens 4Hr 8 Labs: - Troponin: 8 ? 11 ? 8 Tests: - EKG: Normal Imaging: - CT of the abdomen and pelvis: Possible gastritis with diffuse thickening of the stomach, diffuse thickening of the colon suggesting colitis, diffuse colonicdiverticulosis with no evidence of acute diverticulitis, and a small sliding hiatal hernia. Independently interpreted by Carlos mata. - One view chest x-ray: No acute abnormalities. Independently interpreted by Carlos mata. Radiography Diagnostic Testing: Clinical Impression(s) from Imaging Studies Abdomen/Pelvis CT 08/13/25 00:52 IMPRESSION: Prior hysterectomy. Diffuse colonic diverticulosis. Diffuse thickening of the colon suggestive of colitis without perforation or pneumatosis coli. Left renal simple cyst measuring 1.5 cm. Prior cholecystectomy. Calcified atheromatous plaques of the aorta and iliac arteries. Mild osteopenia. Moderate diffuse spondylosis. Small sliding hiatal hernia. Diffuse thickening of the stomach suggestive of gastritis. Mild hepatic steatosis. Reading Location: [place] [address] Chest X-Ray 08/13/25 01:25 IMPRESSION: Interval appearance of mild bilateral basilar atelectatic pulmonary changes. Reading Location: [place] [address] Rhythm Strip Rhythm Strip: Sinus Rhythm Rate: 72 Ectopy: None EKG Initial EKG: Attestation: I personally reviewed and interpreted this EKG as follows: Interpretation: Sinus Rhythm and No Acute Injury Pattern Comments: Nml axis & intervals; nml EKG Discharge Plan Triage Chief Complaint: Chest Pain ED Provider: Carlos Jorgensen Dx/Rx/DC Orders Clinical Impression: Gastritis, Colitis, Vasovagal syncope, Sliding hiatal hernia, Chest pain Instructions: Colitis, ED Chest Pain, Noncardiac Prescriptions: New ondansetron 8 mg tablet,disintegrating 8 mg PO Q8H PRN (Reason: nausea and vomiting) Qty: 20 0RF Continued aspirin [Adult Low Dose Aspirin] 81 mg tablet,delayed release (DR/EC) 81 mg PO QDAY famotidine 20 mg tablet 20 mg PO QDAY fluticasone propion-salmeterol 250-50 mcg/dose blister with device 1 inh inhalation BID clobetasol 0.05 % cream 1 g topical QDAY PRN (Reason: rash) Qty: 15 0RF (DME) blood-glucose meter [Accu-Chek Guide Glucose Meter] Misc See Rx Instructions .Route Qty: 1 0RF Rx Instructions: As directed (DME) Accu-Chek Guide test strips Strip See Rx Instructions .Route Qty: 100 0RF Rx Instructions: daily as needed (DME) lancets [Accu-Chek Softclix Lancets] Misc See Rx Instructions .Route Qty: 200 0RF Rx Instructions: daily as needed trazodone 100 mg tablet 100 mg PO QHS Qty: 90 0RF cholecalciferol (vitamin D3) 25 mcg (1,000 unit) capsule 1,000 unit PO DAILY Qty: 90 0RF pantoprazole 40 mg tablet,delayed release (DR/EC) 40 mg PO QDAY Qty: 90 3RF Prolia 60 mg/mL syringe 60 mg subcut [id number] Qty: 1 1RF meloxicam 15 mg tablet 15 mg PO QDAY Qty: 90 0RF furosemide 20 mg tablet 20 mg PO DAILY Qty: 90 0RF montelukast 10 mg tablet 10 mg PO QHS Qty: 90 0RF coenzyme Q10 [Co Q-10] 100 mg capsule 200 mg PO DAILY Qty: 180 0RF atorvastatin [Lipitor] 10 mg tablet 10 mg PO QHS Qty: 30 1RF dulaglutide 1.5 mg/0.5 mL pen injector 1.5 mg subcut QWEEK Qty: 2 1RF lisinopril 2.5 mg tablet 2.5 mg PO QDAY Qty: 30 1RF metformin 500 mg tablet 500 mg PO BID Qty: 180 0RF Discontinued ondansetron 4 mg tablet,disintegrating 4 mg PO Q8H PRN PRN (Reason: Nausea) Qty: 30 1RF Primary Care Provider: Dennis Hamm Referrals: Dennis Hamm MD [Primary Care Provider, Internal Medicine] Activity Restrictions/Additional Instructions: - Continue taking pantoprazole (proton pump inhibitor) as prescribed. - Take ondansetron (Zofran) for nausea as directed to help prevent vomiting. - Your EKG, sequential troponin checks, and chest X-ray were all normal, which rules out a heart attack. - CT scan of your abdomen and pelvis showed gastritis (stomach inflammation), colitis (colon inflammation), diffuse colonic diverticulosis, and a small sliding hiatal hernia; no acute diverticulitis. - These findings and your symptoms are most consistent with acid reflux and gastrointestinal inflammation. - Follow up with your doctor to review these results and adjust your treatment plan as needed. Print Language: Japanese Disposition Disposition: Home, Self Care What to do if you have Problems For any increased pain, shortness of breath, bleeding, nausea or vomiting, chestpain, or any unexpected problems, contact your Primary Care Provider. Call [facility] ([phone]) or report to the closest Emergency Room. Call 911 if necessary. 08/13/25 0549 <Electronically signed by Carlos Jorgensen MD> Cosigner Signature (if applicable): CC: Dr. Dennis Hamm MD ~ Signed [facility] Work Phone: Evaluation + Plan note No data available for this section [facility] Evaluation note* Diagnosis Hyperkalemia- Primary Hyperpotassemia Essential hypertension Unspecified essential hypertension [facility] Vitamin D deficiency Unspecified vitamin D deficiency [facility] Diagnosis Renal cyst Unspecified congenital cystic kidney disease [facility] Diagnosis Type 2 diabetes mellitus without retinopathy (HCC)- Primary Type II or unspecified type diabetes mellitus without mention of complication, not stated as uncontrolled Type 2 diabetes mellitus with peripheral neuropathy (HCC) Combined form of age-related cataract, 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 Crystalline deposits in vitreous Hypertensive retinopathy, bilateral Lesion of right lower eyelid [facility] Diagnosis Asthma, unspecified asthma severity, unspecified whether complicated, unspecified whether persistent [facility] Diagnosis Asthma, unspecified asthma severity, unspecified whether complicated, unspecified whether persistent [facility] Diagnosis Mild persistent asthma without complication- Primary Unspecified asthma Lung nodules Other nonspecific abnormal finding of lung field Cigarette smoker Tobacco use disorder Gastroesophageal reflux disease, unspecified whether esophagitis present [facility] Diagnosis Essential hypertension Unspecified essential hypertension documented in this encounter [facility] note* Diagnosis Type 2 diabetes mellitus with diabetic neuropathy, without long-term current use of insulin (HCC)- Primary Mixed hyperlipidemia Pulmonary HTN (HCC) Other chronic pulmonary heart diseases Hyperkalemia Hyperpotassemia Screening breast examination Breast screening, unspecified documented in this encounter [facility] note* Diagnosis Screening breast examination- Primary Breast screening, unspecified documented in this encounter [facility] note* Diagnosis Screening breast examination Breast screening, unspecified documented in this encounter [facility] note* Diagnosis Gastroesophageal reflux disease without esophagitis Esophageal reflux documented in this encounter [facility] noteNo assessment information [facility] Work Phone: Evaluation note* Diagnosis Recurrent major depression in partial remission (HCC) Major depressive disorder, recurrent episode, in partial or unspecified remission Controlled type 2 diabetes mellitus without complication, without long-term current use of insulin (HCC) Chronic antral gastritis Atrophic gastritis without mention of hemorrhage Gastroesophageal reflux disease without esophagitis Esophageal reflux documented in this encounter [facility] note* Diagnosis Asthma with COPD (HCC) Chronic obstructive asthma, unspecified [facility] Diagnosis Acute pain of left shoulder- Primary Recurrent major depression in partial remission (HCC) Major depressive disorder, recurrent episode, in partial or unspecified remission documented in this encounter [facility] note* Diagnosis Type 2 diabetes mellitus [...] specified viral diseases documented in this encounter [facility] note* Diagnosis Asthma with COPD (HCC) Chronic obstructive asthma, unspecified documented in this encounter [facility] note* Diagnosis Acute pain of right shoulder- Primary [facility] Diagnosis Chronic obstructive pulmonary disease, unspecified [...] Chest pain, unspecified type SVT (supraventricular tachycardia) (HCC) Other specified cardiac dysrhythmias Palpitations Medicare annual wellness visit, initial Routine general medical examination at a health care facility [facility]* Diagnosis Chronic antral gastritis Atrophic gastritis without mention of hemorrhage Gastroesophageal reflux disease without esophagitis Esophageal reflux [facility]* Diagnosis Controlled type 2 diabetes mellitus without complication, without long-term current use of insulin (HCC) documented in this encounter [facility] note* Diagnosis Essential hypertension- Primary Unspecified essential [...] lumbosacral intervertebral disc documented in this encounter [facility] note* Diagnosis Epigastric pain- Primary Abdominal pain, epigastric Major depressive disorder, recurrent 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) Major depressive disorder, recurrent episode, severe, without mention of psychotic behavior Type 2 diabetes mellitus with diabetic neuropathy, without long-term current use of insulin (HCC) Chronic obstructive pulmonary disease, unspecified COPD type (HCC) Nausea Nausea alone Diarrhea, unspecified type [facility] Diagnosis Vitamin D deficiency Unspecified vitamin D deficiency [facility] Diagnosis Elevated blood protein- Primary Other disorders of plasma protein metabolism Elevated lipase Other nonspecific abnormal serum enzyme levels Elevated lymphocytes Lymphocytosis (symptomatic) [facility] Diagnosis Hypercalcemia- Primary Elevated lipase Other nonspecific abnormal serum enzyme levels [facility]* Diagnosis Laceration of right middle finger without foreign body without damage to nail, subsequent encounter- Primary [facility] Diagnosis Elevated lipase- Primary Other nonspecific abnormal serum enzyme levels [facility] Diagnosis Chronic antral gastritis Atrophic gastritis without mention of hemorrhage Gastroesophageal reflux disease without esophagitis Esophageal reflux [facility] Diagnosis Shoulder impingement- Primary Other affections of shoulder region, not elsewhere classified Calcific tendonitis of right shoulder Sternoclavicular joint pain, right [facility] Diagnosis Essential hypertension- Primary Unspecified essential hypertension [facility] Diagnosis Controlled type 2 diabetes mellitus without complication, without long-term current use of insulin ([facility]) [facility] Diagnosis Essential hypertension Unspecified essential hypertension [facility] Diagnosis Screening for ischemic heart disease- Primary [facility] Diagnosis Asthma with COPD Chronic obstructive asthma, unspecified [facility] Diagnosis Syncope and collapse- Primary Neck pain Cervicalgia Rib pain Chest pain, unspecified [facility] Diagnosis Encounter for screening for cardiovascular disorders Screening for other and unspecified cardiovascular conditions Chest pain, unspecified type [facility] Diagnosis Elevated lipase Other nonspecific abnormal serum enzyme levels [facility] Diagnosis Screening breast examination Breast screening, unspecified [facility] Diagnosis Syncope and collapse- Primary Essential [...] of insulin (HCC) [facility]* Diagnosis Mixed hyperlipidemia- Primary Hypertriglyceridemia Pure hyperglyceridemia [facility]* Diagnosis Encounter for screening for lung cancer- Primary Tobacco use current [facility]* Diagnosis Syncope and collapse Abnormal CT of brain Nonspecific (abnormal) findings on radiological and other examination of skull and head [facility]* Diagnosis Controlled type 2 diabetes mellitus without complication, without long-term current use of insulin (HCC) [facility]* Diagnosis Multinodular goiter (nontoxic)- Primary Nontoxic multinodular goiter [facility]* Diagnosis Multinodular goiter (nontoxic)- Primary Nontoxic multinodular goiter [facility]* Diagnosis Multinodular goiter (nontoxic)- Primary Nontoxic multinodular goiter [facility]* Diagnosis Monoclonal gammopathy- Primary Monoclonal paraproteinemia Iron deficiency anemia secondary to inadequate dietary iron intake [facility]* Diagnosis Monoclonal gammopathy- Primary Monoclonal paraproteinemia [facility]* Diagnosis Monoclonal gammopathy Monoclonal paraproteinemia [facility]* Diagnosis Monoclonal gammopathy- Primary Monoclonal paraproteinemia [facility]* Diagnosis Encounter for screening mammogram for breast cancer [facility]* Diagnosis Encounter for screening mammogram for breast cancer [facility]* Diagnosis Chronic antral gastritis- Primary Atrophic gastritis without mention of hemorrhage Nausea and vomiting, unspecified vomiting type [facility]* Diagnosis Neck pain Cervicalgia Syncope, unspecified syncope type Rib pain Chest pain, unspecified [facility]* Diagnosis Monoclonal gammopathy Monoclonal paraproteinemia [facility]* Diagnosis Monoclonal gammopathy Monoclonal paraproteinemia [facility]* Diagnosis Monoclonal gammopathy- Primary Monoclonal paraproteinemia [facility]* Diagnosis Chronic right shoulder pain Pain in joint, shoulder region [facility]* Diagnosis Monoclonal gammopathy Monoclonal paraproteinemia [facility]* Diagnosis Acute pain of left shoulder Acute pain of right shoulder [facility]* Diagnosis Rib pain Chest pain, unspecified [facility]* Diagnosis Essential hypertension Unspecified essential hypertension Chronic antral gastritis Atrophic gastritis without mention of hemorrhage Gastroesophageal reflux disease without esophagitis Esophageal reflux [facility]* Diagnosis Monoclonal gammopathy- Primary Monoclonal paraproteinemia [facility]* Diagnosis Sore throat- Primary Acute pharyngitis Gastroesophageal reflux disease, unspecified whether esophagitis present documented in this encounter [facility] note* Diagnosis Monoclonal gammopathy- Primary Monoclonal paraproteinemia [facility] Dis[facility] instructions No data available for this section [facility] Discharge instructionsAmbulatory Orders* Cardiology Location: None [facility] Work Phone: Hospital Discharge instructionsAmbulatory Orders* PT Referral Location: None [facility] Work Phone: Hospital Discharge instructionsAmbulatory Orders* Orthopedics Location: None [facility] Work Phone: Hospital Discharge instructionsAdditional Instructions - Continue taking pantoprazole (proton pump inhibitor) as prescribed. - Take ondansetron (Zofran) for nausea as directed to help prevent vomiting. - Your EKG, sequential troponin checks, and chest X-ray were all normal, which rules out a heart attack. - CT scan of your abdomen and pelvis showed gastritis (stomach inflammation), colitis (colon inflammation), diffuse colonic diverticulosis, and a small sliding hiatal hernia; no acute diverticulitis. - These findings and your symptoms are most consistent with acid reflux and gastrointestinal inflammation. - Follow up with your doctor to review these results and adjust your treatment plan as needed.[facility] Work Phone: Progress note No data available for this section [facility] Progress note Author Ginny Acevedo [facility] Note Date/Time July 20, 2025 10:05am [facility]'[address], [address] [place] [address] OFFICE VISIT Date of Service: 07/20/25 MR#: [id number] Acct: [id number] Name: ЮЛИЯ HAYDEN Rep #: [id number] : 1955 Provider: PERLA Acevedo Age/Sex: 69/F Location: [facility] Status: Signed Intake Vital Signs 06/21/25 10:53 07/05/25 13:56 07/20/25 09:45 07/20/25 09:50 Height 5 ft 1 in 5 ft 1 in 5 ft 1 in 5 ft 1 in Weight: 128 lb 6 oz BMI 24.3 BP 140/84 H Intake Visit Reasons: 4 Med Ck Chief Complaint: 4 Week Med check Travel Services Professional Required: No Is patient in pain?: No [...] 0.75 mg/0.5 mL 1.5 mg subcut QWEEK 07//2 5 07/20/25 History subcutaneous pen injector (Trulicity) denosumab 60 mg/mL subcutaneous 60 mg subcut [id number] #1 mL 05/24/25 07/20/25 Rx syringe (Prolia) [...] 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 [employer] pets and animals: No Smoking Status: Current every day smoker tobacco type: cigarettes quit status: not considering quitting alcohol intake: never substance use type: does not use caffeine: Yes seatbelt use: always do you feel safe at home: Yes HPI 4 Med Ck Details: ЮЛИЯ HAYDEN is a 69 year old who presents [...] Benedict- 1972 Unknown Jose Carlos- 1978 Unknown 1981 ROS Const Constitutional: Reports [...] results 07/20/25 1005 <Electronically signed by Ginny gutierrez PASTRY BAKER PASTRY BAKER-C> Date _ Ginny Acevedo PASTRY BAKER PASTRY BAKER-C Cosigner Signature: Date (if applicable) CC: ~ [facility] [employer] Work Phone: Reason for referral (narrative)* Diagnostic Procedure Only (Routine) - Closed Specialty Diagnoses / Procedures Referred By Marcelo Referred To Contact US IMAGING Diagnoses Renal cyst Procedures US KIDNEY/BLADDER US RETROPERITONEAL REAL TIME W/IMAGE COMPLETE Clarice Petersen MD [address] [place] [address] Us Imaging Referral ID Status Reason Start Date Expiration Date V isits Requested Visits Authorized [id number] Closed Auto-Generate d Referral 01/24/2022 02/23/2023 1 1 [facility] for referral (narrative)* Diagnostic Procedure Only (Routine) - Authorized Specialty Diagnoses / Procedures Referred By Marcelo benedict Referred To Contact BR IMAGING Diagnoses Screening breast examination Procedures CARLOS EDUARDO SCREENING SCREENING MAMMOGRAPHY BI 2-VIEW BREAST INC CAD Clarice Petersen MD [address] [place] [address] Br Imaging [address] [place] [address] Referral ID Status Reason Start Date Expiration Date Visits Requested Visits Authorized [id number] Authorized Auto-Generat ed Referral 03/12/2022 04/11/2023 1 1 [facility] for referral (narrative)* Diagnostic Procedure Only (Routine) - Pending Review Specialty Diagnoses / Procedures Referred By Contac t Referred To Contact BR IMAGING Diagnoses Screening breast examination Procedures CARLOS EDUARDO SCREENING SCREENING MAMMOGRAPHY BI 2-VIEW BREAST INC Clarice Sarabia MD [address] [place] [address] Br Imaging [address] [place] [address] Referral ID Status Reason Start Date Expiration Date Visits Requested Visits Authorized [id number] Pending Review Auto-Generat ed Referral 03/13/2022 04/12/2023 1 1 [facility] for referral (narrative)* Diagnostic Procedure Only (Routine) - Authorized Specialty Diagnoses / Procedures Referred By Alizaac t Referred To Contact BR IMAGING Diagnoses Screening breast examination Procedures CARLOS EDUARDO SCREENING SCREENING MAMMOGRAPHY BI 2-VIEW BREAST INC Clarice Sarabia MD [address] [place] [address] Br Imaging [address] [place] [address] Referral ID Status Reason Start Date Expiration Date Visits Requested Visits Authorized [id number] Authorized Auto-Generat ed Referral 03/12/2022 04/11/2023 1 1 T [facility] for referral (narrative)* Diagnostic Procedure Only (Routine) - Pending Review Specialty Diagnoses / Procedures Referred By Contac t Referred To Contact XR IMAGING Diagnoses Acute pain of left shoulder Procedures XR SHOULDER GENERAL 3V OR MORE AP/TRUE AP/OTHER LEFT RADEX SHOULDER COMPLETE MINIMUM 2 VIEWS Clarice Petersen MD [address] [place] [address] Xr Imaging Referral ID Status Reason Start Date Expiration Date Visits Requested Visits Authorized [id number] Pending Review Auto-Generat ed Referral 05/24/2022 06/23/2023 1 1 [facility] for referral (narrative)* Diagnostic Procedure Only (Routine) - Closed Specialty Diagnoses / Procedures Referred By Contac t Referred To Contact XR IMAGING Diagnoses Acute pain of right shoulder Procedures XR SHOULDER GENERAL 3V OR MORE AP/TRUE AP/OTHER RIGHT RADEX SHOULDER COMPLETE MINIMUM 2 VIEWS Clarice Petersen MD [address] [place] [address] Xr Imaging Referral ID Status Reason Start Date Expiration Date V isits Requested Visits Authorized [id number] Closed Auto-Generate d Referral 06/03/2022 07/03/2023 1 1 [facility] for referral (narrative)* Diagnostic Procedure Only (Routine) - Pending Review Specialty Diagnoses / Procedures Referred By Alizaac t Referred To Contact MOLECULAR & FUNCTIONAL IMAGING Diagnoses Encounter for screening for cardiovascular disorders Chest pain, unspecified type Procedures NM CARDIAC PERF STRESS/PHARM MYOCARDIAL SPECT MULTIPLE STUDIES Franklin Mirza PA-C [address] [place] [address] Molecular & Functional Imaging [address] [place] [address] Referral ID Status Reason Start Date Expiration Date Visits Requested Visits Authorized [id number] Pending Review Auto-Generat ed Referral 08/08/2022 09/07/2023 1 1 [facility] for referral (narrative)* Diagnostic Procedure Only (Routine) - Authorized Specialty Diagnoses / Procedures Referred By Alizaac t Referred To Contact US IMAGING Diagnoses Elevated lipase Procedures US ABD RIGHT UPPER QUADRANT US ABDOMINAL REAL TIME W/IMAGE LIMITED Clarice Petersen MD [address] [place] [address] Us Imaging Referral ID Status Reason Start Date Expiration Date Visits Requested Visits Authorized [id number] Authorized Auto-Generat ed Referral 02/20/2023 03/21/2024 1 1 [facility] for referral (narrative)* Outpatient Procedure (Routine) - Authorized Specialty Diagnoses / Procedures Referred By Marcelo t Referred To [facility] Diagnoses Syncope and collapse Procedures ECG COMPLETE ECG ROUTINE ECG W/LEAST 12 LDS W/I&R Sahra Moreno APRN.CNP [address] [place] [address] [facility] [address] [place] [address] Referral ID Status Reason Start Date Expiration Date Visits Requested Visits Authorized [id number] Authorized Auto-Generat ed Referral 09/10/2023 09/09/2024 1 1 * MRI/CT (Urgent) - Authorized Specialty Diagnoses / Procedures Referred By Marcelo benedict Referred To Contact CT IMAGING Diagnoses Syncope and collapse Procedures CT BRAIN WO IVCON CT HEAD/BRAIN W/O CONTRAST MATERIAL PodlogSahra cunningham APRN.SCHOOL OFFICE ASSISTANT [address] [place] [address] [place] [address] Referral ID Status Reason Start Date Expiration Date Visits Requested Visits Authorized [id number] Authorized Auto-Generat ed Referral 09/10/2023 10/09/2024 1 1 * Diagnostic Procedure Only (Routine) - Closed Specialty Diagnoses / Procedures Referred By Marcelo benedict Referred To Contact XR IMAGING Diagnoses Syncope, unspecified syncope type Rib pain Procedures XR RIBS/CHEST 3V AP RIB/OBLS/CXR RIGHT RADEX RIBS UNI W/POSTEROANT CH MINIMUM 3 VIEWS PodlogSahra cunningham APRN.SCHOOL OFFICE ASSISTANT [address] [place] [address] [place] [address] Referral ID Status Reason Start Date Expiration Date V isits Requested Visits Authorized [id number] Closed Auto-Generate d Referral 09/10/2023 10/09/2024 1 1 * Diagnostic Procedure Only (Urgent) - Closed Specialty Diagnoses / Procedures Referred By Contac t Referred To Contact XR IMAGING Diagnoses Neck pain Syncope, unspecified syncope type Procedures XR CERV OTHER 4V AP/LAT/OBL RADEX SPINE CERVICAL 4 OR 5 VIEWS Sahra Moreno APRN.CNP [address] [place] [address] [place] [address] Referral ID Status Reason Start Date Expiration Date V isits Requested Visits Authorized [id number] Closed Auto-Generate d Referral 09/10/2023 10/09/2024 1 1 [facility] for referral (narrative)* Diagnostic Procedure Only (Routine) - Closed Specialty Diagnoses / Procedures Referred By Contac t Referred To Contact MOLECULAR & FUNCTIONAL IMAGING Diagnoses Encounter for screening for cardiovascular disorders Chest pain, unspecified type Procedures NM CARDIAC PERF STRESS/PHARM MYOCARDIAL SPECT MULTIPLE STUDIES Franklin Mirza PA-C [address] [place] [id number] Molecular & Functional Imaging [address] [place] [address] Referral ID Status Reason Start Date Expiration Date V isits Requested Visits Authorized [id number] Closed Auto-Generate d Referral 04/01/2023 04/30/2024 1 1 [facility] for referral (narrative)* Diagnostic Procedure Only (Routine) - Closed Specialty Diagnoses / Procedures Referred By Contac t Referred To Contact US IMAGING Diagnoses Elevated lipase Procedures US ABD RIGHT UPPER QUADRANT US ABDOMINAL REAL TIME W/IMAGE LIMITED Clarice Petersen MD [address] [place] [address] [place] [address] Referral ID Status Reason Start Date Expiration Date V isits Requested Visits Authorized [id number] Closed Auto-Generate d Referral 02/20/2023 03/21/2024 1 1 [facility] for referral (narrative)* Diagnostic Procedure Only (Routine) - Closed Specialty Diagnoses / Procedures Referred By Contac t Referred To Contact BR IMAGING Diagnoses Screening breast examination Procedures CARLOS EDUARDO SCREENING SCREENING MAMMOGRAPHY BI 2-VIEW BREAST INC Clarice Sarabia MD [address] [place] [address] Br Imaging [address] [place] [address] Referral ID Status Reason Start Date Expiration Date V isits Requested Visits Authorized [id number] Closed Auto-Generate d Referral 03/13/2022 04/12/2023 1 1 [facility] for referral (narrative)* Diagnostic Procedure Only (Routine) - Closed Specialty Diagnoses / Procedures Referred By Marcelo t Referred To Contact XR IMAGING Diagnoses Monoclonal gammopathy Procedures XR BONE SURVEY ROUTINE RADIOLOGIC EXAMINATION OSSEOUS SURVEY COMPL Cristhian Christensen DO [address] [place] [address] [place] [address] Referral ID Status Reason Start Date Expiration Date V isits Requested Visits Authorized [id number] Closed Auto-Generate d Referral 06/24/2024 07/24/2025 1 1 T [facility] for referral (narrative)* Diagnostic Procedure Only (Routine) - Closed Specialty Diagnoses / Procedures Referred By Marcelo t Referred To Contact BR IMAGING Diagnoses Encounter for screening mammogram for breast cancer Procedures CARLOS EDUARDO SCREENING W MIGUEL SCREENING DIGITAL BREAST TOMOSYNTHESIS BI SCREENING MAMMOGRAPHY BI 2-VIEW BREAST INC Hemanth Love MD [address] [place] [address] Br Imaging [address] [place] [address] Referral ID Status Reason Start Date Expiration Date V isits Requested Visits Authorized [id number] Closed Auto-Generate d Referral 06/30/2024 07/30/2025 1 1 [facility] for referral (narrative)* Diagnostic Procedure Only (Routine) - Closed Specialty Diagnoses / Procedures Referred By Contac t Referred To Contact XR IMAGING Diagnoses Syncope, unspecified syncope type Rib pain Procedures XR RIBS/CHEST 3V AP RIB/OBLS/CXR RIGHT RADEX RIBS UNI W/POSTEROANT CH MINIMUM 3 VIEWS PodlogSahra cunningham APRN.SCHOOL OFFICE ASSISTANT [address] [place] [address] [place] [address] Referral ID Status Reason Start Date Expiration Date V isits Requested Visits Authorized [id number] Closed Auto-Generate d Referral 09/10/2023 10/09/2024 1 1 * Diagnostic Procedure Only (Urgent) - Closed Specialty Diagnoses / Procedures [facility] Referred To Contact XR IMAGING Diagnoses Neck pain Syncope, unspecified syncope type Procedures XR CERV OTHER 4V AP/LAT/OBL RADEX SPINE CERVICAL 4 OR 5 VIEWS PodlogSahra cunningham APRN.SCHOOL OFFICE ASSISTANT [address] [place] [address] [place] [address] Referral ID Status Reason Start Date Expiration Date V isits Requested Visits Authorized [id number] Closed Auto-Generate d Referral 09/10/2023 10/09/2024 1 1 [facility] for referral (narrative)* Diagnostic Procedure Only (Routine) - Closed Specialty Diagnoses / Procedures Referred By Contac t Referred To Contact XR IMAGING Diagnoses Chronic right shoulder pain Procedures XR SHOULDER GENERAL 3V OR MORE AP/TRUE AP/OTHER RIGHT RADEX SHOULDER COMPLETE MINIMUM 2 VIEWS Franklin Mirza PA-C [address] [place] [address] [place] [address] Referral ID Status Reason Start Date Expiration Date V isits Requested Visits Authorized [id number] Closed Auto-Generate d Referral 03/27/2023 04/25/2024 1 1 [facility] for referral (narrative)* Diagnostic Procedure Only (Routine) - Closed Specialty Diagnoses / Procedures Referred By Contac t Referred To Contact XR IMAGING Diagnoses Acute pain of right shoulder Procedures XR SHOULDER GENERAL 3V OR MORE AP/TRUE AP/OTHER RIGHT RADEX SHOULDER COMPLETE MINIMUM 2 VIEWS Clarice Petersen MD [address] [place] [address] [place] [address] Referral ID Status Reason Start Date Expiration Date V isits Requested Visits Authorized [id number] Closed Auto-Generate d Referral 06/03/2022 07/03/2023 1 1 * Diagnostic Procedure Only (Routine) - Closed Specialty Diagnoses / Procedures Referred By Marcelo benedict Referred To Contact XR IMAGING Diagnoses Acute pain of left shoulder Procedures XR SHOULDER GENERAL 3V OR MORE AP/TRUE AP/OTHER LEFT RADEX SHOULDER COMPLETE MINIMUM 2 VIEWS Clarice Petersen MD [facility] [place] [address] [place] [address] Referral ID Status Reason Start Date Expiration Date V isits Requested Visits Authorized [id number] Closed Auto-Generate d Referral 05/24/2022 06/23/2023 1 1 [facility] for referral (narrative)No reason for [facility] Work Phone: Reason for visit Narrative* Outpatient Procedure (Routine) - Closed Specialty Diagnoses / Procedures Referred By Marcelo t Referred To Contact [facility] Diagnoses History of gastric polyp Dysphagia, unspecified type Procedures EGD DIAGNOSTIC ESOPHAGOGASTRODUODENOSC OPY TRANSORAL DIAGNOSTIC Cira Frazier APRN.SCHOOL OFFICE ASSISTANT [address] [place] [address] [facility] [address] [place] [address] Referral ID Status Reason Start Date Expiration Date V isits Requested Visits Authorized [id number] Closed Auto-Generate d Referral 01/28/2022 01/28/2023 1 1 [facility] for visit Narrative* Diagnostic Procedure Only (Routine) - Closed Specialty Diagnoses / Procedures Referred By Contac t Referred To Contact MOLECULAR & FUNCTIONAL IMAGING Diagnoses Encounter for screening for cardiovascular disorders Chest pain, unspecified type Procedures NM CARDIAC PERF STRESS/PHARM MYOCARDIAL SPECT MULTIPLE STUDIES Franklin Mirza PA-C [address] [place] [address] Molecular & Functional Imaging [address] [place] [address] Referral ID Status Reason Start Date Expiration Date V isits Requested Visits Authorized [id number] Closed Auto-Generate d Referral 04/01/2023 04/30/2024 1 1 [facility] for visit Narrative* Diagnostic Procedure Only (Routine) - Closed Specialty Diagnoses / Procedures Referred By Marcelo t Referred To Contact BR IMAGING Diagnoses Screening breast examination Procedures CARLOS EDUARDO SCREENING SCREENING MAMMOGRAPHY BI 2-VIEW BREAST INC CAD Clarice Petersen MD [address] [place] [address] Br Imaging [address] [place] [address] Referral ID Status Reason Start Date Expiration Date V isits Requested Visits Authorized [id number] Closed Auto-Generate d Referral 03/13/2022 04/12/2023 1 1 [facility] for visit Narrative* Diagnostic Procedure Only (Routine) - Closed Specialty Diagnoses / Procedures Referred By Contac t Referred To Contact XR IMAGING Diagnoses Monoclonal gammopathy Procedures XR BONE SURVEY ROUTINE RADIOLOGIC EXAMINATION OSSEOUS SURVEY COMPL Cristhian Christensen, [address] [place] [address] [place] [address] Referral ID Status Reason Start Date Expiration Date V isits Requested Visits Authorized [id number] Closed Auto-Generate d Referral 06/24/2024 07/24/2025 1 1 [facility] for visit Narrative* Diagnostic Procedure Only (Routine) - Closed Specialty Diagnoses / Procedures Referred By Alizaac t Referred To Contact BR IMAGING Diagnoses Encounter for screening mammogram for breast cancer Procedures CARLOS EDUARDO SCREENING W MIGUEL SCREENING DIGITAL BREAST TOMOSYNTHESIS BI SCREENING MAMMOGRAPHY BI 2-VIEW BREAST INC CAD Hemanth Tovar MD [address] [place] [address] Br Imaging [address] [place] [address] Referral ID Status Reason Start Date Expiration Date V isits Requested Visits Authorized [id number] Closed Auto-Generate d Referral 06/30/2024 07/30/2025 1 1 [facility] for visit Narrative* Diagnostic Procedure Only (Routine) - Closed Specialty Diagnoses / Procedures Referred By Contac t Referred To Contact XR IMAGING Diagnoses Syncope, unspecified syncope type Rib pain Procedures XR RIBS/CHEST 3V AP RIB/OBLS/CXR RIGHT RADEX RIBS UNI W/POSTEROANT CH MINIMUM 3 VIEWS Sahra Moreno APRN.CNP [address] [place] [address] [place] [address] Referral ID Status Reason Start Date Expiration Date V isits Requested Visits Authorized [id number] Closed Auto-Generate d Referral 09/10/2023 10/09/2024 1 1 [facility] for visit Narrative* Diagnostic Procedure Only (Routine) - Closed Specialty Diagnoses / Procedures Referred By Contac t Referred To Contact XR IMAGING Diagnoses Chronic right shoulder pain Procedures XR SHOULDER GENERAL 3V OR MORE AP/TRUE AP/OTHER RIGHT RADEX SHOULDER COMPLETE MINIMUM 2 VIEWS Franklin Mirza PA-C [address] [place] [address] [place] [address] Referral ID Status Reason Start Date Expiration Date V isits Requested Visits Authorized [id number] Closed Auto-Generate d Referral 03/27/2023 04/25/2024 1 1 [facility] for visit Narrative* Diagnostic Procedure Only (Routine) - Closed Specialty Diagnoses / Procedures Referred By Contac t Referred To Contact XR IMAGING Diagnoses Acute pain of right shoulder Procedures XR SHOULDER GENERAL 3V OR MORE AP/TRUE AP/OTHER RIGHT RADEX SHOULDER COMPLETE MINIMUM 2 VIEWS Clarice Petersen MD [address] [place] [address] [place] [address] Referral ID Status Reason Start Date Expiration Date V isits Requested Visits Authorized [id number] Closed Auto-Generate d Referral 06/03/2022 07/03/2023 [facility] Diagnostic Procedure Only (Urgent) - Closed Specialty Diagnoses / Procedures Referred By Contac t Referred To Contact XR IMAGING Diagnoses Arm injuries, left, initial encounter Procedures XR HUMERUS 2V AP/LAT LT X-RAY HUMERUS Damien Stanley, HYDRAULIC PLUMBER.SCHOOL OFFICE ASSISTANT [address] [place] [address] [place] [address] Referral ID Status Reason Start Date Expiration Date V isits Requested Visits Authorized [id number] Closed Auto-Generate d Referral 09/19/2021 10/19/2022 1 1 [facility] Summary Purpose Family History No Family History Records Found Relationship Condition Age at Onset Recorded Date/T juan Unknown Family History?Cancer Unknown April 012017 6:48pm Family History?Cancer Unknown May 152017 6:42pm Family History?Heart Disease Unknown May 15, 2018 6:42pm Relationship Condition Age at Onset Recorded Date/T ujan Unknown Family History?Cancer Unknown April 012017 5:48pm [...] FoundDocuments on File Type Date Recorded 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 Advance Directive(s) 08/27/2018 3:33 PM Advance Directive(s) 12/24/2017 7:15 AM Advance Directive(s) 03/18/2017 9:19 AM Documents on File Type Date Recorded 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 Advance Directive(s) 08/27/2018 3:33 PM Advance Directive(s) 12/24/2017 7:15 AM Advance Directive(s) 03/18/2017 9:19 AM Documents on File Type Date Recorded 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 Advance Directive(s) 03/14/2022 6:35 AM Advance Directive(s) 08/27/2018 3:33 PM Advance Directive(s) 12/24/2017 7:15 AM Advance Directive(s) 03/18/2017 9:19 AM Advance Directive Response Recorded Date/ Time Living Will No September 18 1:27pm Power of Garment Finisher No September 18, 2020 1:27pm Documents on File Type Date Recorded 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 No February 05, 2023 6:22pm Do you have a Healthcare Power of Garment Finisher? No March 07, 2025 11:06am Advance Directive Response Recorded Date/ Time Do you have a Healthcare Power of Garment Finisher? No March 07, 2025 11:06am Advance Directive Response Recorded Date/ Time Do you have a Healthcare Power of Garment Finisher? No August 13, 2025 12:45am Medications Administered Section Active Administered Medications - up to 3 most recent administrations Medication Order MAR Action Action Date Dose Rate Site fluorescein-benoxinate 0.25-0.4 % 1 Drop (FLURESS) 1 Drop, BOTH EYES, DIRECTED, Starting on Fri02/12/22 at 1430, Until Fri02/13/22 at 0229, Administer for applanation tonometry. In the event of a Fluress shortage, administer Diane-Fluor 1 drop into both eyes as directed [...] Given 04/28/2023 3:38 PM EDT 4 mL Aiul saeid, Right Reason for Referral Specialty Diagnoses / Procedures Referred By Marcelo benedict Referred To Contact Barbie Ruiz MD [address] [place] [address] Referral ID Status Reason Start Date Expiration Date Visits Re quested Visits Authorized [id number] Closed 1 1 Specialty Diagnoses / Procedures Referred By Contac t Referred To Contact [facility] Diagnoses Mild persistent asthma without complication Procedures NITRIC OXIDE, EXHALED NITRIC OXIDE GAS DETERMINATION Barbie Ruiz MD [address] [place] [address] [facility] [address] [place] [address] Referral ID Status Reason Start Date Expiration Date V isits Requested Visits Authorized [id number] Closed Auto-Generate d Referral 02/28/2022 03/30/2023 1 1 Specialty Diagnoses / Procedures Referred By Contac t Referred To Contact [facility] Diagnoses Mild persistent asthma without complication Procedures SPIROMETRY WITH DILATOR IF OBSTRUCTED BRNCDILAT RSPSE SPMTRY PRE&POST-BRNCDILAT ADMN Barbie Ruiz MD [address] [place] [address] [facility] [address] [place] [address] Referral ID Status Reason Start Date Expiration Date V isits Requested Visits Authorized [id number] Closed Auto-Generate d Referral 02/28/2022 03/30/2023 1 1 Specialty Diagnoses / Procedures Referred By Contac t Referred To Contact Clarice Petersen MD [address] [place] [address] Referral ID Status Reason Start Date Expiration Date Visits Re quested Visits Authorized [id number] Closed 1 1 Specialty Diagnoses / Procedures Referred By Contac t Referred To Contact Franklin Mirza PA-C [address] [place] [address] Referral ID Status Reason Start Date Expiration Date Visits Re quested Visits Authorized [id number] Closed 1 1 Specialty Diagnoses / Procedures Referred By Contac t Referred To Contact Diagnoses Encounter for screening for lung cancer Procedures CONSULT LUNG CANCER SCREENING CLINIC Franklin Mirza PA-C [address] [place] [address] Referral ID Status Reason Start Date Expiration Date Visits Requested Visits Authorized [id number] Ref Not Required PCP Requested Referral 11/20/202 3 12/28/2023 1 1 Specialty Diagnoses / Procedures Referred By Contac t Referred To Contact Gynecology Diagnoses Vaginal pain Procedures CONSULT TO GYNECOLOGY OFFICE/OUTPATIENT NEW HIGH MDM 60-74 MINUTES Franklin Mirza PA-C [address] [place] [address] Referral ID Status Reason Start Date Expiration Date Visits Requested Visits Authorized [id number] Authorized PCP Requested Referral Auto-Generate d Referral 3 09/28/2024 1 1 Specialty Diagnoses / Procedures Referred By Contac t Referred To Contact CT IMAGING Diagnoses Encounter for screening for lung cancer Tobacco use current Procedures CT LUNG SCREEN WO IVCON COMPUTED TOMOGRAPHY THORAX LW DOSE LNG CA Sherie Delatorre APRN.SCHOOL OFFICE ASSISTANT [address] [place] [address] [facility] [place] [address] Referral ID Status Reason Start Date Expiration Date Visits Requested Visits Authorized [id number] Authorized Auto-Generat ed Referral 10/14/2023 11/09/2024 1 1 Specialty Diagnoses / Procedures Referred By Contac t Referred To Contact MR IMAGING Diagnoses Syncope and collapse Abnormal CT of brain Procedures MRI BRAIN WO/W IVCON MRI BRAIN BRAIN STEM W/O W/CONTRAST MATERIAL Sahra Moreno APRN.SCHOOL OFFICE ASSISTANT [address] [place] [address] Mr Imaging [facility] Referral ID Status Reason Start Date Expiration Date V isits Requested Visits Authorized [id number] Closed Auto-Generate d Referral 09/12/2023 10/11/2024 1 1 Referral ID Status Reason Start Date Expiration Date V isits Requested Visits Authorized [id number] Authorized 11/10/2023 11/09/2024 1 1 Referral ID Status Reason Start Date Expiration Date Visits Re quested Visits Authorized [id number] Closed 1 1 Specialty Diagnoses / Procedures Referred By Contac t Referred To Contact MR IMAGING Diagnoses Monoclonal gammopathy Procedures MRI PELVIS ORTHO GENERAL WO/W IVCON MRI ANY JT LOWER EXTREM W/O & W/CONTRAST MATRL Cristhian Christensen, DO [address] [place] [address] [place] [address] Referral ID Status Reason Start Date Expiration Date Visits Requested Visits Authorized [id number] Authorized Auto-Generat ed Referral 06/28/2024 07/28/2025 1 1 Specialty Diagnoses / Procedures Referred By Contac t Referred To Contact MR IMAGING Diagnoses Monoclonal gammopathy Procedures MRI LUMBAR SPINE WO/W IVCON MRI SPINAL CANAL LUMBAR W/O & W/CONTR MATRL Cristhian Christensen, DO [address] [place] [address] Mr Imaging [id number] Referral ID Status Reason Start Date Expiration Date Visits Requested Visits Authorized [id number] Authorized Auto-Generat ed Referral 06/28/2024 07/28/2025 1 1 Specialty Diagnoses / Procedures Referred By Contac t Referred To Contact MR IMAGING Diagnoses Monoclonal gammopathy Procedures MRI THORACIC SPINE WO/W IVCON MRI SPINAL CANAL THORACIC W/O & W/CONTR MATRCristhian Becker, DO [address] [facility] [place] [address] Mr Imaging [id number] Referral ID Status Reason Start Date Expiration Date Visits Requested Visits Authorized [id number] Authorized Auto-Generat ed Referral 06/28/2024 07/28/2025 1 1 Specialty Diagnoses / Procedures Referred By Contac t Referred To Contact MR IMAGING Diagnoses Monoclonal gammopathy Procedures MRI CERVICAL SPINE WO/W IVCON MRI SPINAL CANAL CERVICAL W/O & W/CONTR MATRCristhian Becker, DO [address] [facility] [place] [address] Mr Imaging [id number] Referral ID Status Reason Start Date Expiration Date Visits Requested Visits Authorized [id number] Authorized Auto-Generat ed Referral 06/28/2024 07/28/2025 1 1 Referral ID Status Reason Start Date Expiration Date V isits Requested Visits Authorized [id number] Closed Auto-Generate d Referral 06/28/2024 07/28/2025 1 1 Referral ID Status Reason Start Date Expiration Date V isits Requested Visits Authorized [id number] Closed Auto-Generate d Referral 06/28/2024 07/28/2025 1 1 Referral ID Status Reason Start Date Expiration Date V isits Requested Visits Authorized [id number] Closed Auto-Generate d Referral 06/28/2024 07/28/2025 1 1 Referral ID Status Reason Start Date Expiration Date V isits Requested Visits Authorized [id number] Closed Auto-Generate d Referral 06/28/2024 07/28/2025 1 [...] FU April 07, 2025 1:19p m CP (DANTEER) May 16, 2025 2:14p m Reason for [...] wk fu April 06, 2025 10:11 am [facility] April 07, 2025 1:19p m CP [...] Smoking greater than 30 pack years Victorino t 2024 1:22pm Diabetes June 27, 2025 1: 22pm Thyroid nodule June 27, 2025 1: 22pm Elevated blood pressure reading June 102024 1:22pm Vitamin deficiency June 27, 2025 1: 22pm Rash and nonspecific skin eruption Victorino t 2024 1:22pm Mid back pain on [...] 22pm Smoking greater than 30 pack years Aug2024 1:22pm Diabetes June 27, 2025 1: 22pm Thyroid nodule June 27, 2025 1: 22pm Elevated blood pressure reading June 102024 1:22pm Vitamin deficiency June 27, 2025 1: 22pm Rash and nonspecific skin eruption 2024 1:22pm Mid back pain on right [...] 22pm Smoking greater than 30 pack years [facility] t 2024 1:22pm Diabetes June 27, 2025 1: 22pm Thyroid nodule June 27, 2025 1: 22pm Elevated blood pressure reading June 102024 1:22pm Vitamin deficiency June 27, 2025 1: 22pm Rash and nonspecific skin eruption [facility] 2024 1:22pm Mid back pain on right [...] 28 1:09pm Preop exam for internal medicine [facility] 2024 1:09pm Shortness of breath July 28, 2025 1:09pm Chief Complaint Admit Date CP (RUFENER) May 16, 2025 2:14p m [...] 22pm Smoking greater than 30 pack years 2024 1:22pm Diabetes June 27, 2025 1: [...] 28 1:09pm Preop exam for internal medicine [facility] 2024 1:09pm Shortness of breath July 28, 2025 1:09pm Chief Complaint Admit Date CP (RUFENER) May 16, 2025 2:14p m [...] sore throat, SOB-EORDERS July 28, 2025 2:42pm THORACIC/LUMBAR SPINE August 12, 2025 12:59pm Room 4 August 12, 2025 1: 39pm Chief Complaint Admit Date CP (RUFENER) May 16, 2025 2:14p m [...] sore throat, SOB-EORDERS July 28, 2025 2:42pm THORACIC/LUMBAR SPINE August 12, 2025 12:59pm Room 4 August 12, 2025 1: 39pm chest pain August 13, 2025 12 :32am Reason for Visit Admit Date Chest pain [...] 22pm [facility] Diabetes June 27, 2025 [...] 28 1:09pm Preop exam for internal medicine [facility] 2024 1:09pm Shortness of breath July 28, 2025 1:09pm Cervical myelopathy August 12, 2025 12 :59pm Degenerative disc disease (D DD) of lumbar region with discogenic back pain August 12, 2025 12:59pm DISH (diffuse idiopathic skeletal hypero stosis) August 12, 2025 12:59pm Chief Complaint Admit Date CP (JOSE ALEJANDRO) [...] sore throat, SOB-EORDERS July 28, 2025 2:42pm THORACIC/LUMBAR SPINE August 12, 2025 12:59pm Room 4 August 12, 2025 1: 39pm chest pain August 13, 2025 12 :32am CERVICAL PAIN August 25, 2025 3 :32pm NAUSEA August 29, 2025 1 0:15am Additional Source Comments INFORMATION SOURCE (unrecogn ized section and content) DATE CREATED AUTHOR 05/01/2018 [facility] DATE CREATED AUTHOR AUTHOR'S ORGANIZ ATION 09/13/2023 [facility] DATE CREATED AUTHOR AUTHOR'S ORGANIZ ATION 02/21/2024 [facility] DATE CREATED AUTHOR AUTHOR'S ORGANIZ ATION 04/19/2025 [facility] DATE CREATED AUTHOR AUTHOR'S ORGANIZ ATION 09/20/2025 [facility] Source Comments (unrecognize d section and content) In the event this informatio n is protected by the Federal Confidentiality of Alcohol and Drug Abuse Patient Records regulations: The Federal rules restrict any use of the information to criminally investigate or prosecute any alcohol or drug abuse patient.[facility] the event this information is protected by the Federal Confidentiality of Alcohol and Drug Abuse Patient Records regulations: The Federal rules restrict any use of the information to criminally investigate or prosecute any alcohol or drug abuse patient.[facility]In the event this information is protected by the Federal Confidentiality of Alcohol and Drug Abuse Patient Records regulations: The Federal rules restrict any use of the information to criminally investigate or prosecute any alcohol or drug abuse patient.[facility] HospitalIn the event this information is protected by the Federal Confidentiality of Alcohol and Drug Abuse Patient Records regulations: The Federal rules restrict any use of the information to criminally investigate or prosecute any alcohol or drug abuse patient.[facility]In the event this information is protected by the Federal Confidentiality of Alcohol and Drug Abuse Patient Records regulations: The Federal rules restrict any use of the information to criminally investigate or prosecute any alcohol or drug abuse patient.[facility] HospitalIn the event this information is protected by the Federal Confidentiality of Alcohol and Drug Abuse Patient Records regulations: The Federal rules restrict any use of the information to criminally investigate or prosecute any alcohol or drug abuse patient.[facility] HospitalIn the event this information is protected by the Federal Confidentiality of Alcohol and Drug Abuse Patient Records regulations: The Federal rules restrict any use of the information to criminally investigate or prosecute any alcohol or drug abuse patient.[facility] HospitalIn the event this information is protected by the Federal Confidentiality of Alcohol and Drug Abuse Patient Records regulations: The Federal rules restrict any use of the information to criminally investigate or prosecute any alcohol or drug abuse patient.[facility] HospitalIn the event this information is protected by the Federal Confidentiality of Alcohol and Drug Abuse Patient Records regulations: The Federal rules restrict any use of the information to criminally investigate or prosecute any alcohol or drug abuse patient.[facility] HospitalIn the event this information is protected by the Federal Confidentiality of Alcohol and Drug Abuse Patient Records regulations: The Federal rules restrict any use of the information to criminally investigate or prosecute any alcohol or drug abuse patient.[facility] HospitalIn the event this information is protected by the Federal Confidentiality of Alcohol and Drug Abuse Patient Records regulations: The Federal rules restrict any use of the information to criminally investigate or prosecute any alcohol or drug abuse patient.[facility] HospitalIn the event this information is protected by the Federal Confidentiality of Alcohol and Drug Abuse Patient Records regulations: The Federal rules restrict any use of the information to criminally investigate or prosecute any alcohol or drug abuse patient.[facility] HospitalIn the event this information is protected by the Federal Confidentiality of Alcohol and Drug Abuse Patient Records regulations: The Federal rules restrict any use of the information to criminally investigate or prosecute any alcohol or drug abuse patient.[facility] HospitalIn the event this information is protected by the Federal Confidentiality of Alcohol and Drug Abuse Patient Records regulations: The Federal rules restrict any use of the information to criminally investigate or prosecute any alcohol or drug abuse patient.[facility] HospitalIn the event this information is protected by the Federal Confidentiality of Alcohol and Drug Abuse Patient Records regulations: The Federal rules restrict any use of the information to criminally investigate or prosecute any alcohol or drug abuse patient.[facility] HospitalIn the event this information is protected by the Federal Confidentiality of Alcohol and Drug Abuse Patient Records regulations: The Federal rules restrict any use of the information to criminally investigate or prosecute any alcohol or drug abuse patient.[facility] HospitalIn the event this information is protected by the Federal Confidentiality of Alcohol and Drug Abuse Patient Records regulations: The Federal rules restrict any use of the information to criminally investigate or prosecute any alcohol or drug abuse patient.[facility] HospitalIn the event this information is protected by the Federal Confidentiality of Alcohol and Drug Abuse Patient Records regulations: The Federal rules restrict any use of the information to criminally investigate or prosecute any alcohol or drug abuse patient.[facility] HospitalIn the event this information is protected by the Federal Confidentiality of Alcohol and Drug Abuse Patient Records regulations: The Federal rules restrict any use of the information to criminally investigate or prosecute any alcohol or drug abuse patient.[facility] HospitalIn the event this information is protected by the Federal Confidentiality of Alcohol and Drug Abuse Patient Records regulations: The Federal rules restrict any use of the information to criminally investigate or prosecute any alcohol or drug abuse patient.[facility] HospitalIn the event this information is protected by the Federal Confidentiality of Alcohol and Drug Abuse Patient Records regulations: The Federal rules restrict any use of the information to criminally investigate or prosecute any alcohol or drug abuse patient.[facility] HospitalIn the event this information is protected by the Federal Confidentiality of Alcohol and Drug Abuse Patient Records regulations: The Federal rules restrict any use of the information to criminally investigate or prosecute any alcohol or drug abuse patient.[facility] HospitalIn the event this information is protected by the Federal Confidentiality of Alcohol and Drug Abuse Patient Records regulations: The Federal rules restrict any use of the information to criminally investigate or prosecute any alcohol or drug abuse patient.[facility] HospitalIn the event this information is protected by the Federal Confidentiality of Alcohol and Drug Abuse Patient Records regulations: The Federal rules restrict any use of the information to criminally investigate or prosecute any alcohol or drug abuse patient.[facility] HospitalIn the event this information is protected by the Federal Confidentiality of Alcohol and Drug Abuse Patient Records regulations: The Federal rules restrict any use of the information to criminally investigate or prosecute any alcohol or drug abuse patient.[facility] HospitalIn the event this information is protected by the Federal Confidentiality of Alcohol and Drug Abuse Patient Records regulations: The Federal rules restrict any use of the information to criminally investigate or prosecute any alcohol or drug abuse patient.[facility] HospitalIn the event this information is protected by the Federal Confidentiality of Alcohol and Drug Abuse Patient Records regulations: The Federal rules restrict any use of the information to criminally investigate or prosecute any alcohol or drug abuse patient.[facility] HospitalIn the event this information is protected by the Federal Confidentiality of Alcohol and Drug Abuse Patient Records regulations: The Federal rules restrict any use of the information to criminally investigate or prosecute any alcohol or drug abuse patient.[facility] HospitalIn the event this information is protected by the Federal Confidentiality of Alcohol and Drug Abuse Patient Records regulations: The Federal rules restrict any use of the information to criminally investigate or prosecute any alcohol or drug abuse patient.[facility] HospitalIn the event this information is protected by the Federal Confidentiality of Alcohol and Drug Abuse Patient Records regulations: The Federal rules restrict any use of the information to criminally investigate or prosecute any alcohol or drug abuse patient.[facility] HospitalIn the event this information is protected by the Federal Confidentiality of Alcohol and Drug Abuse Patient Records regulations: The Federal rules restrict any use of the information to criminally investigate or prosecute any alcohol or drug abuse patient.[facility] HospitalIn the event this information is protected by the Federal Confidentiality of Alcohol and Drug Abuse Patient Records regulations: The Federal rules restrict any use of the information to criminally investigate or prosecute any alcohol or drug abuse patient.[facility] HospitalIn the event this information is protected by the Federal Confidentiality of Alcohol and Drug Abuse Patient Records regulations: The Federal rules restrict any use of the information to criminally investigate or prosecute any alcohol or drug abuse patient.[facility] HospitalIn the event this information is protected by the Federal Confidentiality of Alcohol and Drug Abuse Patient Records regulations: The Federal rules restrict any use of the information to criminally investigate or prosecute any alcohol or drug abuse patient.[facility] HospitalIn the event this information is protected by the Federal Confidentiality of Alcohol and Drug Abuse Patient Records regulations: The Federal rules restrict any use of the information to criminally investigate or prosecute any alcohol or drug abuse patient.[facility] HospitalIn the event this information is protected by the Federal Confidentiality of Alcohol and Drug Abuse Patient Records regulations: The Federal rules restrict any use of the information to criminally investigate or prosecute any alcohol or drug abuse patient.[facility] HospitalIn the event this information is protected by the Federal Confidentiality of Alcohol and Drug Abuse Patient Records regulations: The Federal rules restrict any use of the information to criminally investigate or prosecute any alcohol or drug abuse patient.[facility] HospitalIn the event this information is protected by the Federal Confidentiality of Alcohol and Drug Abuse Patient Records regulations: The Federal rules restrict any use of the information to criminally investigate or prosecute any alcohol or drug abuse patient.[facility] HospitalIn the event this information is protected by the Federal Confidentiality of Alcohol and Drug Abuse Patient Records regulations: The Federal rules restrict any use of the information to criminally investigate or prosecute any alcohol or drug abuse patient.[facility] HospitalIn the event this information is protected by the Federal Confidentiality of Alcohol and Drug Abuse Patient Records regulations: The Federal rules restrict any use of the information to criminally investigate or prosecute any alcohol or drug abuse patient.[facility] HospitalIn the event this information is protected by the Federal Confidentiality of Alcohol and Drug Abuse Patient Records regulations: The Federal rules restrict any use of the information to criminally investigate or prosecute any alcohol or drug abuse patient.[facility] HospitalIn the event this information is protected by the Federal Confidentiality of Alcohol and Drug Abuse Patient Records regulations: The Federal rules restrict any use of the information to criminally investigate or prosecute any alcohol or drug abuse patient.[facility] HospitalIn the event this information is protected by the Federal Confidentiality of Alcohol and Drug Abuse Patient Records regulations: The Federal rules restrict any use of the information to criminally investigate or prosecute any alcohol or drug abuse patient.[facility] HospitalIn the event this information is protected by the Federal Confidentiality of Alcohol and Drug Abuse Patient Records regulations: The Federal rules restrict any use of the information to criminally investigate or prosecute any alcohol or drug abuse patient.[facility] HospitalIn the event this information is protected by the Federal Confidentiality of Alcohol and Drug Abuse Patient Records regulations: The Federal rules restrict any use of the information to criminally investigate or prosecute any alcohol or drug abuse patient.[facility] HospitalIn the event this information is protected by the Federal Confidentiality of Alcohol and Drug Abuse Patient Records regulations: The Federal rules restrict any use of the information to criminally investigate or prosecute any alcohol or drug abuse patient.[facility] HospitalIn the event this information is protected by the Federal Confidentiality of Alcohol and Drug Abuse Patient Records regulations: The Federal rules restrict any use of the information to criminally investigate or prosecute any alcohol or drug abuse patient.[facility] HospitalIn the event this information is protected by the Federal Confidentiality of Alcohol and Drug Abuse Patient Records regulations: The Federal rules restrict any use of the information to criminally investigate or prosecute any alcohol or drug abuse patient.[facility] HospitalIn the event this information is protected by the Federal Confidentiality of Alcohol and Drug Abuse Patient Records regulations: The Federal rules restrict any use of the information to criminally investigate or prosecute any alcohol or drug abuse patient.[facility] HospitalIn the event this information is protected by the Federal Confidentiality of Alcohol and Drug Abuse Patient Records regulations: The Federal rules restrict any use of the information to criminally investigate or prosecute any alcohol or drug abuse patient.[facility] HospitalIn the event this information is protected by the Federal Confidentiality of Alcohol and Drug Abuse Patient Records regulations: The Federal rules restrict any use of the information to criminally investigate or prosecute any alcohol or drug abuse patient.[facility] HospitalIn the event this information is protected by the Federal Confidentiality of Alcohol and Drug Abuse Patient Records regulations: The Federal rules restrict any use of the information to criminally investigate or prosecute any alcohol or drug abuse patient.[facility] HospitalIn the event this information is protected by the Federal Confidentiality of Alcohol and Drug Abuse Patient Records regulations: The Federal rules restrict any use of the information to criminally investigate or prosecute any alcohol or drug abuse patient.[facility] HospitalIn the event this information is protected by the Federal Confidentiality of Alcohol and Drug Abuse Patient Records regulations: The Federal rules restrict any use of the information to criminally investigate or prosecute any alcohol or drug abuse patient.[facility] HospitalIn the event this information is protected by the Federal Confidentiality of Alcohol and Drug Abuse Patient Records regulations: The Federal rules restrict any use of the information to criminally investigate or prosecute any alcohol or drug abuse patient.[facility] HospitalIn the event this information is protected by the Federal Confidentiality of Alcohol and Drug Abuse Patient Records regulations: The Federal rules restrict any use of the information to criminally investigate or prosecute any alcohol or drug abuse patient.[facility] HospitalIn the event this information is protected by the Federal Confidentiality of Alcohol and Drug Abuse Patient Records regulations: The Federal rules restrict any use of the information to criminally investigate or prosecute any alcohol or drug abuse patient.[facility] HospitalIn the event this information is protected by the Federal Confidentiality of Alcohol and Drug Abuse Patient Records regulations: The Federal rules restrict any use of the information to criminally investigate or prosecute any alcohol or drug abuse patient.[facility] HospitalIn the event this information is protected by the Federal Confidentiality of Alcohol and Drug Abuse Patient Records regulations: The Federal rules restrict any use of the information to criminally investigate or prosecute any alcohol or drug abuse patient.[facility] HospitalIn the event this information is protected by the Federal Confidentiality of Alcohol and Drug Abuse Patient Records regulations: The Federal rules restrict any use of the information to criminally investigate or prosecute any alcohol or drug abuse patient.[facility] HospitalIn the event this information is protected by the Federal Confidentiality of Alcohol and Drug Abuse Patient Records regulations: The Federal rules restrict any use of the information to criminally investigate or prosecute any alcohol or drug abuse patient.[facility] HospitalIn the event this information is protected by the Federal Confidentiality of Alcohol and Drug Abuse Patient Records regulations: The Federal rules restrict any use of the information to criminally investigate or prosecute any alcohol or drug abuse patient.[facility] HospitalIn the event this information is protected by the Federal Confidentiality of Alcohol and Drug Abuse Patient Records regulations: The Federal rules restrict any use of the information to criminally investigate or prosecute any alcohol or drug abuse patient.[facility] HospitalIn the event this information is protected by the Federal Confidentiality of Alcohol and Drug Abuse Patient Records regulations: The Federal rules restrict any use of the information to criminally investigate or prosecute any alcohol or drug abuse patient.[facility] HospitalIn the event this information is protected by the Federal Confidentiality of Alcohol and Drug Abuse Patient Records regulations: The Federal rules restrict any use of the information to criminally investigate or prosecute any alcohol or drug abuse patient.[facility] HospitalIn the event this information is protected by the Federal Confidentiality of Alcohol and Drug Abuse Patient Records regulations: The Federal rules restrict any use of the information to criminally investigate or prosecute any alcohol or drug abuse patient.[facility] HospitalIn the event this information is protected by the Federal Confidentiality of Alcohol and Drug Abuse Patient Records regulations: The Federal rules restrict any use of the information to criminally investigate or prosecute any alcohol or drug abuse patient.[facility] HospitalIn the event this information is protected by the Federal Confidentiality of Alcohol and Drug Abuse Patient Records regulations: The Federal rules restrict any use of the information to criminally investigate or prosecute any alcohol or drug abuse patient.[facility] HospitalIn the event this information is protected by the Federal Confidentiality of Alcohol and Drug Abuse Patient Records regulations: The Federal rules restrict any use of the information to criminally investigate or prosecute any alcohol or drug abuse patient.[facility] HospitalIn the event this information is protected by the Federal Confidentiality of Alcohol and Drug Abuse Patient Records regulations: The Federal rules restrict any use of the information to criminally investigate or prosecute any alcohol or drug abuse patient.[facility] HospitalIn the event this information is protected by the Federal Confidentiality of Alcohol and Drug Abuse Patient Records regulations: The Federal rules restrict any use of the information to criminally investigate or prosecute any alcohol or drug abuse patient.[facility] HospitalIn the event this information is protected by the Federal Confidentiality of Alcohol and Drug Abuse Patient Records regulations: The Federal rules restrict any use of the information to criminally investigate or prosecute any alcohol or drug abuse patient.[facility] HospitalIn the event this information is protected by the Federal Confidentiality of Alcohol and Drug Abuse Patient Records regulations: The Federal rules restrict any use of the information to criminally investigate or prosecute any alcohol or drug abuse patient.[facility] HospitalIn the event this information is protected by the Federal Confidentiality of Alcohol and Drug Abuse Patient Records regulations: The Federal rules restrict any use of the information to criminally investigate or prosecute any alcohol or drug abuse patient.[facility] HospitalIn the event this information is protected by the Federal Confidentiality of Alcohol and Drug Abuse Patient Records regulations: The Federal rules restrict any use of the information to criminally investigate or prosecute any alcohol or drug abuse patient.[facility] HospitalIn the event this information is protected by the Federal Confidentiality of Alcohol and Drug Abuse Patient Records regulations: The Federal rules restrict any use of the information to criminally investigate or prosecute any alcohol or drug abuse patient.[facility] HospitalIn the event this information is protected by the Federal Confidentiality of Alcohol and Drug Abuse Patient Records regulations: The Federal rules restrict any use of the information to criminally investigate or prosecute any alcohol or drug abuse patient.[facility] HospitalIn the event this information is protected by the Federal Confidentiality of Alcohol and Drug Abuse Patient Records regulations: The Federal rules restrict any use of the information to criminally investigate or prosecute any alcohol or drug abuse patient.[facility] HospitalIn the event this information is protected by the Federal Confidentiality of Alcohol and Drug Abuse Patient Records regulations: The Federal rules restrict any use of the information to criminally investigate or prosecute any alcohol or drug abuse patient.[facility] HospitalIn the event this information is protected by the Federal Confidentiality of Alcohol and Drug Abuse Patient Records regulations: The Federal rules restrict any use of the information to criminally investigate or prosecute any alcohol or drug abuse patient.[facility] HospitalIn the event this information is protected by the Federal Confidentiality of Alcohol and Drug Abuse Patient Records regulations: The Federal rules restrict any use of the information to criminally investigate or prosecute any alcohol or drug abuse patient.[facility] HospitalIn the event this information is protected by the Federal Confidentiality of Alcohol and Drug Abuse Patient Records regulations: The Federal rules restrict any use of the information to criminally investigate or prosecute any alcohol or drug abuse patient.[facility] HospitalIn the event this information is protected by the Federal Confidentiality of Alcohol and Drug Abuse Patient Records regulations: The Federal rules restrict any use of the information to criminally investigate or prosecute any alcohol or drug abuse patient.[facility] HospitalIn the event this information is protected by the Federal Confidentiality of Alcohol and Drug Abuse Patient Records regulations: The Federal rules restrict any use of the information to criminally investigate or prosecute any alcohol or drug abuse patient.[facility] HospitalIn the event this information is protected by the Federal Confidentiality of Alcohol and Drug Abuse Patient Records regulations: The Federal rules restrict any use of the information to criminally investigate or prosecute any alcohol or drug abuse patient.[facility] HospitalIn the event this information is protected by the Federal Confidentiality of Alcohol and Drug Abuse Patient Records regulations: The Federal rules restrict any use of the information to criminally investigate or prosecute any alcohol or drug abuse patient.[facility] HospitalIn the event this information is protected by the Federal Confidentiality of Alcohol and Drug Abuse Patient Records regulations: The Federal rules restrict any use of the information to criminally investigate or prosecute any alcohol or drug abuse patient.[facility] HospitalIn the event this information is protected by the Federal Confidentiality of Alcohol and Drug Abuse Patient Records regulations: The Federal rules restrict any use of the information to criminally investigate or prosecute any alcohol or drug abuse patient.[facility] HospitalIn the event this information is protected by the Federal Confidentiality of Alcohol and Drug Abuse Patient Records regulations: The Federal rules restrict any use of the information to criminally investigate or prosecute any alcohol or drug abuse patient.[facility] HospitalIn the event this information is protected by the Federal Confidentiality of Alcohol and Drug Abuse Patient Records regulations: The Federal rules restrict any use of the information to criminally investigate or prosecute any alcohol or drug abuse patient.[facility] HospitalIn the event this information is protected by the Federal Confidentiality of Alcohol and Drug Abuse Patient Records regulations: The Federal rules restrict any use of the information to criminally investigate or prosecute any alcohol or drug abuse patient.[facility] HospitalIn the event this information is protected by the Federal Confidentiality of Alcohol and Drug Abuse Patient Records regulations: The Federal rules restrict any use of the information to criminally investigate or prosecute any alcohol or drug abuse patient.[facility] HospitalIn the event this information is protected by the Federal Confidentiality of Alcohol and Drug Abuse Patient Records regulations: The Federal rules restrict any use of the information to criminally investigate or prosecute any alcohol or drug abuse patient.[facility] HospitalIn the event this information is protected by the Federal Confidentiality of Alcohol and Drug Abuse Patient Records regulations: The Federal rules restrict any use of the information to criminally investigate or prosecute any alcohol or drug abuse patient.[facility] HospitalIn the event this information is protected by the Federal Confidentiality of Alcohol and Drug Abuse Patient Records regulations: The Federal rules restrict any use of the information to criminally investigate or prosecute any alcohol or drug abuse patient.[facility] HospitalIn the event this information is protected by the Federal Confidentiality of Alcohol and Drug Abuse Patient Records regulations: The Federal rules restrict any use of the information to criminally investigate or prosecute any alcohol or drug abuse patient.[facility] HospitalIn the event this information is protected by the Federal Confidentiality of Alcohol and Drug Abuse Patient Records regulations: The Federal rules restrict any use of the information to criminally investigate or prosecute any alcohol or drug abuse patient.[facility] HospitalIn the event this information is protected by the Federal Confidentiality of Alcohol and Drug Abuse Patient Records regulations: The Federal rules restrict any use of the information to criminally investigate or prosecute any alcohol or drug abuse patient.[facility] HospitalIn the event this information is protected by the Federal Confidentiality of Alcohol and Drug Abuse Patient Records regulations: The Federal rules restrict any use of the information to criminally investigate or prosecute any alcohol or drug abuse patient.[facility] HospitalIn the event this information is protected by the Federal Confidentiality of Alcohol and Drug Abuse Patient Records regulations: The Federal rules restrict any use of the information to criminally investigate or prosecute any alcohol or drug abuse patient.[facility] HospitalIn the event this information is protected by the Federal Confidentiality of Alcohol and Drug Abuse Patient Records regulations: The Federal rules restrict any use of the information to criminally investigate or prosecute any alcohol or drug abuse patient.[facility] HospitalIn the event this information is protected by the Federal Confidentiality of Alcohol and Drug Abuse Patient Records regulations: The Federal rules restrict any use of the information to criminally investigate or prosecute any alcohol or drug abuse patient.[facility] HospitalIn the event this information is protected by the Federal Confidentiality of Alcohol and Drug Abuse Patient Records regulations: The Federal rules restrict any use of the information to criminally investigate or prosecute any alcohol or drug abuse patient.[facility] HospitalIn the event this information is protected by the Federal Confidentiality of Alcohol and Drug Abuse Patient Records regulations: The Federal rules restrict any use of the information to criminally investigate or prosecute any alcohol or drug abuse patient.[facility] HospitalIn the event this information is protected by the Federal Confidentiality of Alcohol and Drug Abuse Patient Records regulations: The Federal rules restrict any use of the information to criminally investigate or prosecute any alcohol or drug abuse patient.[facility] HospitalIn the event this information is protected by the Federal Confidentiality of Alcohol and Drug Abuse Patient Records regulations: The Federal rules restrict any use of the information to criminally investigate or prosecute any alcohol or drug abuse patient.[facility] HospitalIn the event this information is protected by the Federal Confidentiality of Alcohol and Drug Abuse Patient Records regulations: The Federal rules restrict any use of the information to criminally investigate or prosecute any alcohol or drug abuse patient.[facility] HospitalIn the event this information is protected by the Federal Confidentiality of Alcohol and Drug Abuse Patient Records regulations: The Federal rules restrict any use of the information to criminally investigate or prosecute any alcohol or drug abuse patient.[facility] HospitalIn the event this information is protected by the Federal Confidentiality of Alcohol and Drug Abuse Patient Records regulations: The Federal rules restrict any use of the information to criminally investigate or prosecute any alcohol or drug abuse patient.[facility] Reason for Visit (unrecogniz ed section and content) Reason Comments Results Reason Comments Erroneous encounter-disregard Reason Onset Date Comments Refill Request 02/05/2022 Reason Comments Radiology US Specialty Diagnoses / Procedures Referred By Contac t Referred To Contact US IMAGING Diagnoses Renal cyst Procedures US KIDNEY/BLADDER US RETROPERITONEAL REAL TIME W/IMAGE COMPLETE Clarice Petersen MD [address] [place] [address] Us Imaging Referral ID Status Reason Start Date Expiration Date V isits Requested Visits Authorized [id number] Closed Auto-Generate d Referral 01/24/2022 02/23/2023 1 1 Reason Comments Diabetes Specialty Diagnoses / Procedures Referred By Contac t Referred To Contact Ophthalmology Diagnoses Type 2 diabetes mellitus with peripheral neuropathy (HCC) Procedures CONSULT TO OPHTHALMOLOGY OFFICE/OUTPATIENT [facility] MDM 60-74 MINUTES Clarice Petersen MD [address] [place] [address] Referral ID Status Reason Start Date Expiration Date V isits Requested Visits Authorized [id number] Closed PCP Requested Referral 01/24/2022 01/24/2023 1 1 Reason Comments Spirometry Specialty Diagnoses / Procedures Referred By Contac t Referred To Contact [facility] Diagnoses Mild persistent asthma without complication Procedures SPIROMETRY WITH DILATOR IF OBSTRUCTED BRNCDILAT RSPSE SPMTRY PRE&POST-BRNCDILAT ADMN Barbie Ruiz MD [address] [place] [address] [facility] [place] [address] [place] [address] Referral ID Status Reason Start Date Expiration Date V isits Requested Visits Authorized [id number] Closed Auto-Generate d Referral 02/28/2022 03/30/2023 1 1 Specialty Diagnoses / Procedures Referred By Contac t Referred To Contact [facility] Diagnoses Mild persistent asthma without complication Procedures NITRIC OXIDE, EXHALED NITRIC OXIDE GAS DETERMINATION Barbie Ruiz MD [address] [place] [address] [facility] [address] [place] [address] Referral ID Status Reason Start Date Expiration Date V isits Requested Visits Authorized [id number] Closed Auto-Generate d Referral 02/28/2022 03/30/2023 1 1 Reason Comments Asthma Specialty Diagnoses / Procedures Referred By Contac t Referred To Contact Pulmonary and Critical Care Medicine Diagnoses Pulmonary HTN (HCC) Chronic obstructive pulmonary disease, unspecified COPD type (HCC) Lung nodules Procedures CONSULT TO PULM/CRITICAL CARE OFFICE/OUTPATIENT [facility] 60-74 MINUTES Clarice Petersen MD [address] [place] [address] Referral ID Status Reason Start Date Expiration Date V isits Requested Visits Authorized [id number] Closed PCP Requested Referral 01/24/2022 01/24/2023 1 [...] right shoulder Procedures CONSULT TO ORTHOPAEDICS OFFICE/OUTPATIENT [facility] 60-74 MINUTES Franklin Mirza PA-C [address] [place] [address] Referral ID Status Reason Start Date Expiration Date V isits Requested Visits Authorized [id number] Closed PCP Requested Referral 04/03/2023 04/01/2024 1 [...] TIME W/IMAGE LIMITED Clarice Petersen MD [address] [place] [address] Us Imaging [facility] Referral ID Status Reason Start Date Expiration Date V isits Requested Visits Authorized [id number] Closed Auto-Generate d Referral 02/20/2023 03/21/2024 1 1 Reason Comments Radiology NM Specialty Diagnoses / Procedures Referred By Contac t Referred To Contact MOLECULAR & FUNCTIONAL IMAGING Diagnoses Encounter for screening for cardiovascular disorders Chest pain, unspecified type Procedures NM CARDIAC PERF STRESS/PHARM MYOCARDIAL SPECT MULTIPLE STUDIES Franklin Mirza PA-C [address] [place] [address] Molecular & Functional Imaging [address] [place] [address] Referral ID Status Reason Start Date Expiration Date V isits Requested Visits Authorized [id number] Closed Auto-Generate d Referral 04/01/2023 04/30/2024 1 1 Reason Comments 6 Month Exam Reason Comments New Patient Specialty Diagnoses / Procedures Referred By Contac t Referred To Contact Diagnoses Encounter for screening for lung cancer Procedures CONSULT LUNG [facility]CREENING [facility] Franklin Mirza PA-C [address] [place] [address] Referral ID Status Reason Start Date Expiration Date Visits Requested Visits Authorized [id number] Ref Not Required PCP Requested Referral 3 12/28/2023 1 1 Specialty Diagnoses / Procedures Referred By Contac t Referred To Contact MR IMAGING Diagnoses Syncope and collapse Abnormal CT of brain Procedures MRI BRAIN WO/W IVCON MRI BRAIN BRAIN STEM W/O W/CONTRAST MATERIAL Sahra Moreno APRN.SCHOOL OFFICE ASSISTANT [address] [place] [address] [place] [address] Referral ID Status Reason Start Date Expiration Date V isits Requested Visits Authorized [id number] Closed Auto-Generate d Referral 09/12/2023 10/11/2024 1 1 Reason Onset Date Comments Refill Request 10/16/2023 Reason Comments Insurance Authorization Reason Comments Appointment C CT Scan Reason Onset Date Comments Refill Request 12/17/2023 Reason Onset Date Comments Refill Request 12/17/2023 Reason Onset Date Comments Population Health Navigation Outreach 01/31/2024 [facility] Annual Wellness Visit Reason Comments Medication Request Reason Comments Consult Specialty Diagnoses / Procedures Referred By Marcelo t Referred To Contact General Surgery / GENERAL SURGERY Diagnoses Thyroid nodule THYROID NODULE - U/S 01/08/2024 1.6 CM RIGHT SIDED NODULE - PCP REFERRING - IN SCANNED DOC Procedures OFFICE/OUTPATIENT NEW HIGH MDM 60 MINUTES NEW DDI PATIENT Jake Wallis MD [address] [place] [address] Pelon Skinner MD [address] [place] [address] Referral ID Status Reason Start Date Expiration Date V isits Requested Visits Authorized [id number] Authorized 02/05/2024 11/09/2024 99 99 Reason Comments Procedure Fna of right thyroid Specialty Diagnoses / Procedures Referred By Marcelo t Referred To Contact General Surgery / GENERAL SURGERY Diagnoses 30 min fna right thyroid Procedures SURGERY 30 Pelon Skinner MD [address] [place] [address] Pelon Skinner MD [address] [place] [address] Referral ID Status Reason Start Date Expiration Date Visits Re quested Visits Authorized [id number] Closed 04/12/2024 11/09/2024 1 1 Reason Comments Follow Up Specialty Diagnoses / Procedures Referred By Marcelo t Referred To Contact General Surgery / GENERAL SURGERY Diagnoses Follow up Procedures EST DDI PATIENT Pelon Skinner MD [address] [place] [address] Pelon Skinner MD [address] [place] [address] Referral ID Status Reason Start Date Expiration Date Visits Re quested Visits Authorized [id number] Closed 04/21/2024 11/09/2024 1 1 Reason Comments New Patient Specialty Diagnoses / Procedures Referred By Contac t Referred To Contact Hematology/Oncology / HEMATOLOGY/ONCOLOGY Diagnoses new patient ref by Jake Wallis for Monoclonel Gammopathy* Procedures NEW PATIENT Self Cristhian Christensen, DO [address] [place] [address] Referral ID Status Reason Start Date Expiration Date V isits Requested Visits Authorized [id number] Authorized 06/02/2024 11/09/2024 99 99 Reason Comments Patient Question Reason Comments Established Patient Specialty Diagnoses / Procedures Referred By Contac t Referred To Contact Hematology/Oncology / HEMATOLOGY/ONCOLOGY Diagnoses new patient ref by Jake Wallis for Monoclonel Gammopathy* Procedures NEW PATIENT Self Cristhian Christensen, DO [address] [place] [address] Reason Onset Date Comments Refill Request 06/28/2024 Reason Onset Date Comments Refill Request 07/06/2024 Specialty Diagnoses / Procedures Referred By Contac t Referred To Contact MR IMAGING Diagnoses Monoclonal gammopathy Procedures MRI PELVIS ORTHO GENERAL WO/W IVCON MRI ANY JT LOWER EXTREM W/O & W/CONTRAST Cristhian Robbins, DO [address] [place] [address] [place] [address] Referral ID Status Reason Start Date Expiration Date V isits Requested Visits Authorized [id number] Closed Auto-Generate d Referral 06/28/2024 07/28/2025 1 1 Specialty Diagnoses / Procedures Referred By Contac t Referred To Contact MR IMAGING Diagnoses Monoclonal gammopathy Procedures MRI THORACIC SPINE WO/W IVCON MRI SPINAL CANAL THORACIC W/O & W/CONTR Cristhian Robbins, DO [address] [place] [address] [place] [address] Referral ID Status Reason Start Date Expiration Date V isits Requested Visits Authorized [id number] Closed Auto-Generate d Referral 06/28/2024 07/28/2025 1 1 Specialty Diagnoses / Procedures Referred By Contac t Referred To Contact MR IMAGING Diagnoses Monoclonal gammopathy Procedures MRI LUMBAR SPINE WO/W IVCON MRI SPINAL CANAL LUMBAR W/O & W/CONTR MATRL Cristhian Christensen, DO [address] [place] [address] [place] [address] Referral ID Status Reason Start Date Expiration Date V isits Requested Visits Authorized [id number] Closed Auto-Generate d Referral 06/28/2024 07/28/2025 1 1 Specialty Diagnoses / Procedures Referred By Contac t Referred To Contact MR IMAGING Diagnoses Monoclonal gammopathy Procedures MRI CERVICAL SPINE WO/W IVCON MRI SPINAL CANAL CERVICAL W/O & W/CONTR MATRL Cristhian Christensen, DO [address] [place] [address] [place] [address] Referral ID Status Reason Start Date Expiration Date V isits Requested Visits Authorized [id number] Closed Auto-Generate d Referral 06/28/2024 07/28/2025 1 1 Reason Comments Procedure BMBX Reason Onset Date Comments Refill Request 08/10/2024 Reason Comments Patient appt/question Reason Comments Established Patient Specialty Diagnoses / Procedures Referred By Contac t Referred To Contact Hematology/Oncology / HEMATOLOGY/ONCOLOGY Diagnoses OV/MRI 07/29/BMBX 08/05* Procedures EST COMPLEX Cristhian Christensen, DO [address] [place] [address] Cristhian Christensen, DO [address] [place] [address] Referral ID Status Reason Start Date Expiration Date Visits Re quested Visits Authorized [id number] Closed 08/17/2024 11/09/2024 1 1 Reason Comments Sore Throat ERVIN x1 month Reason Onset Date Comments Population Health Navigation Outreach 12/17/2024 [employer] Unknown PCP Reason Onset Date Comments Allied Health Visit 02/08/2025 Medication A dherence Outreach Reason Onset Date Comments Allied Health Visit 02/10/2025 Medication A dherence Outreach Specialty Diagnoses / Procedures Referred By Marcelo benedict Referred To Contact Hematology/Oncology / HEMATOLOGY/ONCOLOGY Diagnoses 6 MO OV/LABS 02/10* Procedures OFFICE/OUTPATIENT ESTABLISHED SF MDM 10 MIN OFFICE/OUTPATIENT ESTABLISHED LOW MDM 20 MIN OFFICE/OUTPATIENT ESTABLISHED MOD MDM 30 MIN OFFICE/OUTPATIENT ESTABLISHED HIGH MDM 40 MIN EST SIMPLE Cristhian Christensen, DO [address] [place] [address] Phone: tel: Cristhian Christensen, DO [address] [place] [address] Phone: tel: fax: Referral ID Status Reason Start Date Expiration Date Visits Re quested Visits Authorized [id number] Closed 02/18/2025 11/09/2025 1 1 Reason Onset Date Comments Allied Health Visit 03/10/2025 Medication A dherence Outreach Reason Comments Returning Patient's Call Care Teams (unrecognized sec tion and content) Housing Management Officer Relationship Specialty [place] [address] [place] [address] [id number] PCP - General Family Practice 08/17/12 Housing Management Officer Relationship Specialty Start Date End Date Clarice Petersen MD [address] [place] [address] [id number] PCP - General Family Practice 08/17/12 Housing Management Officer Relationship Specialty [place] [address] [place] [address] [id number] PCP - General Family Practice 08/17/12 Housing Management Officer Relationship Specialty Start Date End Date Clarice Petersen MD [address] [place] [address] [id number] PCP - General Family Practice 08/17/12 Housing Management Officer Relationship Specialty Start Date End Date Clarice Petersen MD [address] [place] [address] [phone] PCP - General Family Practice 08/17/12 Housing Management Officer Relationship Specialty Start Date End Date Clarice Petersen MD [address] [place] [address] PCP - General Family Practice 08/17/12 Housing Management Officer Relationship Specialty Start Date End Date Clarice Petersen MD [address] [place] [address] PCP - General Family Practice 08/17/12 Housing Management Officer Relationship Specialty Start Date End Date Clarice Petersen MD [address] [place] [address] PCP - General Family Practice 08/17/12 Housing Management Officer Relationship Specialty Start Date End Date Clarice Petersen MD [address] [place] [address] PCP - General Family Practice 08/17/12 Housing Management Officer Relationship Specialty Start Date End Date Clarice Petersen MD [address] [place] [address] PCP - General Family Practice 08/17/12 Housing Management Officer Relationship Specialty Start Date End Date Clarice Petersen MD [address] [place] [address] PCP - General Family Practice 08/17/12 Housing Management Officer Relationship Specialty Start Date End Date Clarice Petersen MD [address] [place] [address] PCP - General Family Practice 08/17/12 Housing Management Officer Relationship Specialty Start Date End Date Clarice Petersen MD [address] [place] [address] PCP - General Family Practice 08/17/12 Housing Management Officer Relationship Specialty Start Date End Date Clarice Petersen MD [address] [place] [address] PCP - General Family Practice 08/17/12 Housing Management Officer Relationship Specialty Start Date End Date Clarice Petersen MD [address] [place] [address] PCP - General Family Practice 08/17/12 Housing Management Officer Relationship Specialty Start Date End Date Clarice Petersen MD [address] [place] [address] PCP - General Family Practice 08/17/12 Housing Management Officer Relationship Specialty Start Date End Date Clarice Petersen MD [address] [place] [address] PCP - General Family Medicine 08/17/12 Housing Management Officer Relationship Specialty Start Date End Date Clarice Petersen MD [address] [place] [address] PCP - General Family Medicine 08/17/12 Housing Management Officer Relationship Specialty Start Date End Date Clarice Petersen MD [address] [place] [address] PCP - General Family Medicine 08/17/12 Housing Management Officer Relationship Specialty Start Date End Date Clarice Petersen MD [address] [place] [address] PCP - General Family Medicine 08/17/12 Housing Management Officer Relationship Specialty Start Date End Date Clarice Petersen MD [address] [place] [address] PCP - General Family Medicine 08/17/12 Housing Management Officer Relationship Specialty Start Date End Date Clarice Petersen MD [address] [place] [address] PCP - General Family Medicine 08/17/12 Housing Management Officer Relationship Specialty Start Date End Date Clarice Petersen MD [address] [place] [address] PCP - General Family Medicine 08/17/12 Housing Management Officer Relationship Specialty Start Date End Date Clarice Petersen MD [address] [place] [address] PCP - General Family Medicine 08/17/12 Housing Management Officer Relationship Specialty Start Date End Date Clarice Petersen MD [address] [place] [address] PCP - General Family Medicine 08/17/12 Housing Management Officer Relationship Specialty Start Date End Date Clarice Petersen MD [address] [place] [address] PCP - General Family Medicine 08/17/12 Housing Management Officer Relationship Specialty Start Date End Date Clarice Petersen MD [address] [place] [address] PCP - General Family Medicine 08/17/12 Team [...] Dr. Satya Cotton MD Emergency Provider Active Housing Management Officer Relationship Specialty Start Date End Date Clarice Petersen MD [address] [facility] [place] [address] PCP - General Family Medicine 08/17/12 Housing Management Officer Relationship Specialty Start Date End Date Clarice Petersen MD 0 [facility] [place] [address] PCP - General Family Medicine 08/17/12 Housing Management Officer Relationship Specialty Start Date End Date Clarice Petersen MD [address] [place] [address] PCP - General Family Medicine 08/17/12 Housing Management Officer Relationship Specialty Start Date End Date Clarice Petersen MD [address] [place], [place] 185331 PCP - General Family Medicine 08/17/12 Housing Management Officer Relationship Specialty Start Date End Date Clarice Petersen MD [address] [place] [address] PCP - General Family Medicine 08/17/12 Housing Management Officer Relationship Specialty Start Date End Date Clarice Petersen MD [address] [place] [address] PCP - General Family Medicine 08/17/12 Housing Management Officer Relationship Specialty Start Date End Date Clarice Petersen MD [address] [place] [address] PCP - General Family Medicine 08/17/12 Housing Management Officer Relationship Specialty Start Date End Date Clarice Petersen MD [address] [place] [address] PCP - General Family Medicine 08/17/12 Housing Management Officer Relationship Specialty Start Date End Date Clarice Petersen MD [address] [place] [address] PCP - General Family Medicine 08/17/12 Housing Management Officer Relationship Specialty Start Date End Date Clarice Petersen MD [address] [place], [place] 804591 PCP - General Family Medicine 08/17/12 Housing Management Officer Relationship Specialty Start Date End Date Clarice Petersen MD [address] [place] [address] PCP - General Family Medicine 08/17/12 Housing Management Officer Relationship Specialty Start Date End Date Clarice Petersen MD [address] [place] [address] PCP - General Family Medicine 08/17/12 Housing Management Officer Relationship Specialty Start Date End Date Clarice Petersen MD [address] [place] [address] PCP - General Family Medicine 08/17/12 Housing Management Officer Relationship Specialty Start Date End Date Clarice Petersen MD [address] [place] [address] PCP - General Family Medicine 08/17/12 Housing Management Officer Relationship Specialty Start Date End Date Clarice Petersen MD [address] [place] [address] PCP - General Family Medicine 08/17/12 Housing Management Officer Relationship Specialty Start Date End Date Franklin Mirza PA-C [address] [place] [address] PCP - General Family Medicine 09/29/23 Housing Management Officer Relationship Specialty Start Date End Date Franklin Mirza PA-C [address] [place] [address] PCP - General Family Medicine 09/29/23 Housing Management Officer Relationship Specialty Start Date End Date Franklin Mirza PA-C [address] [place] [address] PCP - General Family Medicine 09/29/23 Barbie Ruiz MD [address] [place] [address] Pulmonary and Critical Care Medicine 10/14/23 Housing Management Officer Relationship Specialty Start Date End Date Franklin Mirza PA-C [address] [place] [address] PCP - General Family Medicine 09/29/23 Barbie Ruiz MD [address] [place] [address] Pulmonary and Critical Care Medicine 10/14/23 Housing Management Officer Relationship Specialty Start Date End Date Franklin Mirza PA-C [address] [place] [address] PCP - General Family Medicine 09/29/23 Barbie Ruiz MD [address] [place] [address] Pulmonary and Critical Care Medicine 10/14/23 Housing Management Officer Relationship Specialty Start Date End Date Franklin Mirza PA-C [address] [place] [address] PCP - General Family Medicine 09/29/23 Barbie Ruiz MD [address] [place] [address] Pulmonary and Critical Care Medicine 10/14/23 Housing Management Officer Relationship Specialty Start Date End Date Franklin Mirza PA-C [address] [place] [address] PCP - General Family Medicine 09/29/23 Barbie Ruiz MD [address] [place] [address] Pulmonary and Critical Care Medicine 10/14/23 Housing Management Officer Relationship Specialty Start Date End Date Franklin Mirza PA-C [address] [place] [address] PCP - General Family Medicine 09/29/23 Barbie Ruiz MD [address] [place] [address] Pulmonary and Critical Care Medicine 10/14/23 Housing Management Officer Relationship Specialty Start Date End Date Franklin Mirza PA-C [address] [place] [address] PCP - General Family Medicine 09/29/23 Barbie Ruiz MD [address] [place] [address] Pulmonary and Critical Care Medicine 10/14/23 Housing Management Officer Relationship Specialty Start Date End Date Franklin Mirza PA-C [address] [place] [address] PCP - General Family Medicine 09/29/23 Barbie Ruiz MD [address] [place] [address] Pulmonary and Critical Care Medicine 10/14/23 Team Status: Active Member Role Status Dates Dr. Clarice Petersen MD Family Provider Active Dr. Jake Wallis MD Primary Care Provider Active Team Status: Inactive Member Role Status Dates Dr. Jake Wallis MD Primary Care Pr ovider, Attending Provider, Referring Provider Active Team Status: Inactive Member Role Status Dates Dr. Jake Wallis MD Primary Care Provider, Attend ing Provider Active Housing Management Officer Relationship Specialty Start Date End Date Jake Wallis MD [address] [facility] [address] [place] [address] PCP - General Family Medicine 01/14/24 Barbie Ruiz MD [address] [place] [address] Pulmonary and Critical Care Medicine 10/14/23 Housing Management Officer Relationship Specialty Start Date End Date Jake Wallis MD [address] [facility] [address] [place] [address] PCP - General Family Medicine 01/14/24 Barbie Ruiz MD [address] [place] [address] Pulmonary and Critical Care Medicine 10/14/23 Housing Management Officer Relationship Specialty Start Date End Date Jake Wallis MD [address] [facility] [address] [place] [address] PCP - General Family Medicine 01/14/24 Barbie Ruiz MD [address] [place] [address] Pulmonary and Critical Care Medicine 10/14/23 Housing Management Officer Relationship Specialty Start Date End Date Jake Wallis MD [address] [facility] [address] [place] [address] PCP - General Family Medicine 01/14/24 Barbie Ruiz MD [address] [address] Pulmonary and Critical Care Medicine 10/14/23 Housing Management Officer Relationship Specialty Start Date End Date Jake Wallis MD [address] [place] [address] PCP - General Family Medicine 01/14/24 Barbie Ruiz MD [address] [place] [address] Pulmonary and Critical Care Medicine 10/14/23 Housing Management Officer Relationship Specialty Start Date End Date Jake Wallis MD [address] [place] [address] [place] [address] PCP - General Family Medicine 01/14/24 Barbie Ruiz MD [address] [facility] [place] [address] Pulmonary and Critical Care Medicine 10/14/23 Housing Management Officer Relationship Specialty Start Date End Date Hemanth Tovar MD [address] [place] [address] PCP - General Family Medicine 06/24/24 Barbie Ruiz MD [address] [facility] [place] [address] Pulmonary and Critical Care Medicine 10/14/23 Housing Management Officer Relationship Specialty Start Date End Date Hemanth Tovar MD [address] [place] [address] PCP - General Family Medicine 06/24/24 Barbie Ruiz MD [address] [facility] [place] [address] Pulmonary and Critical Care Medicine 10/14/23 Housing Management Officer Relationship Specialty Start Date End Date Hemanth Tovar MD [address] [facility] [place] [address] PCP - General Family Medicine 06/24/24 Barbie Ruiz MD [address] [facility] [place] [address] Pulmonary and Critical Care Medicine 10/14/23 Housing Management Officer Relationship Specialty Start Date End Date Hemanth Tovar MD [address] [facility] [place] [address] PCP - General Family Medicine 06/24/24 Barbie Ruiz MD [address] [facility] [place] [address] Pulmonary and Critical Care Medicine 10/14/23 Housing Management Officer Relationship Specialty Start Date End Date Hemanth Tovar MD [address] [facility] [place] [address] PCP - General Family Medicine 06/24/24 Barbie Ruiz MD [address] [facility] [place] [address] Pulmonary and Critical Care Medicine 10/14/23 Housing Management Officer Relationship Specialty Start Date End Date Hemanth Tovar MD [address] [place] [address] PCP - General Family Medicine 06/24/24 Barbie Ruiz MD [address] [facility] [place] [address] Pulmonary and Critical Care Medicine 10/14/23 Housing Management Officer Relationship Specialty Start Date End Date Hemanth Tovar MD [address] [place] [address] PCP - General Family Medicine 06/24/24 Barbie Ruiz MD [address] [place] [address] Pulmonary and Critical Care Medicine 10/14/23 Housing Management Officer Relationship Specialty Start Date End Date Hemanth Tovar MD [address] [place] [address] PCP - General Family Medicine 06/24/24 Barbie Ruiz MD [address] [place] [address] Pulmonary and Critical Care Medicine 10/14/23 Housing Management Officer Relationship Specialty Start Date End Date Clarice Petersen MD [address] [place] [address] PCP - General Family Medicine 08/17/12 09/28/23 Housing Management Officer Relationship Specialty Start Date End Date Hemanth Tovar MD [address] [place] [address] PCP - General Family Medicine 06/24/24 Barbie Ruiz MD [address] [place] [address] Pulmonary and Critical Care Medicine 10/14/23 Housing Management Officer Relationship Specialty Start Date End Date Hemanth Tovar MD [address] [place] [address] PCP - General Family Medicine 06/24/24 Barbie Ruiz MD [address] [place] [address] Pulmonary and Critical Care Medicine 10/14/23 Housing Management Officer Relationship Specialty Start Date End Date Barbie Ruiz MD [address] [place] [address] Pulmonary and Critical Care Medicine 10/14/23 Housing Management Officer Relationship Specialty Start Date End Date Clarice Petersen MD [address] [place] [address] PCP - General Family Medicine 08/17/12 09/28/23 Housing Management Officer Relationship Specialty Start Date End Date Clarice Petersen MD [address] [place] [address] PCP - General Family Medicine 08/17/12 09/28/23 Housing Management Officer Relationship Specialty Start Date End Date Clarice Petersen MD [address] [place] [address] PCP - General Family Medicine 08/17/12 09/28/23 Housing Management Officer Relationship Specialty Start Date End Date Clarice Petersen MD [address] [place] [address] PCP - General Family Medicine 08/17/12 09/28/23 Housing Management Officer Relationship Specialty Start Date End Date Barbie Ruiz MD [address] [place] [address] Pulmonary and Critical Care Medicine 10/14/23 Housing Management Officer Relationship Specialty Start Date End Date Jake Wallis MD [address] [place] [address] [place] [address] PCP - General Family Medicine 01/14/24 06/23/24 Hemanth Tovar MD [address] [place] [address] PCP - General Family Medicine 06/24/24 Barbie Ruiz MD [address] [place] [address] Pulmonary and Critical Care Medicine 10/14/23 Housing Management Officer Relationship Specialty Start Date End Date Barbie Ruiz MD [address] [place] [address] Pulmonary and Critical Care Medicine 10/14/23 Housing Management Officer Relationship Specialty Start Date End Date Barbie Ruiz MD [address] [place] [address] Pulmonary and Critical Care Medicine 10/14/23 Housing Management Officer Relationship Specialty Start Date End Date Barbie Ruiz MD [address] [place] [address] Pulmonary and Critical Care Medicine 10/14/23 Sahra Moreno APRN.CNP [address] [place] [address] Family Medicine 12/17/24 Team Status: Active Member Role Status Dates Dr. Clarice Petersen MD Family Provider Active No Primary Care Physician Primary Care Provider Active Team Status: Inactive Member Role Status Dates Alexus Machuca [facility], DO Primary Care Provider Active Start: September [...] Status: Inactive Member Role Status Dates Alexus Svennayeli SAAVEDRAC, DO Primary Care Provider Active Start: December 28, 2024 End: December 28, 2024 Alexus Svennayeli URBANO, DO Referring Provider Active Start: December [...] January 05, 2025 End: January 05, 2025 Housing Management Officer Relationship Specialty Start Date End Date Barbie Ruiz MD [address] [place] [address] Pulmonary and Critical Care Medicine 10/14/23 Podlogar, ABEL Bocanegra.SCHOOL OFFICE ASSISTANT [address] [place] [address] [facility] Medicine 12/17/24 Housing Management Officer Relationship Specialty Start Date End Date Barbie Ruiz MD [address] [facility] [place] [place] [id number] Pulmonary and Critical Care Medicine 10/14/23 Podlogar, ABEL Bocanegra.SCHOOL OFFICE ASSISTANT [address] [facility], [place] [address] [facility] Medicine 12/17/24 Housing Management Officer Relationship Specialty Start Date End Date Dennis Hamm MD [address] [place] [address] PCP - General Internal Medicine 02/18/25 Rachel Madden, RADHA [address] [facility] [place] [address] [place] [address] [facility] Medicine 02/18/25 Housing Management Officer Relationship Specialty Start Date End Date Dennis Hamm MD [address] [place] [address] PCP - General Internal Medicine 02/18/25 Rachel Madden, RADHA [address] [place], [place] [address] [facility] Medicine 02/18/25 Team Status: Active Member Role Status Dates Dr. Dennis Hamm MD Primary Care Provider Active Team Status: Inactive Member Role Status Dates Dr. Jake Wallis MD Referring Provider Active Start: February 02, 2025 End: February 02, 2025 Rachel Madden , PASTRY BAKER-C Attending Provider Active Start: February 02, 2025 [...] 2025 End: March 16, 2025 Dr. Dennis Hamm MD Attending Provider Active Start: March 16, 2025 End: March 16, 2025 Team Status: Inactive Member Role Status Dates PERLA Nick Attending Provider Active Start: March 17, 2025 End: March 17, 2025 PERLA Nick Referring Provider Active Start: March 17, 2025 End: March 17, 2025 Dr. Denins Hamm MD Primary Care Provider Active Start: March 17, 2025 End: March 17, 2025 Team Status: Inactive Member Role Status Dates Dr. Dennis Hamm MD Primary Care Provider Active Start: March 22, 2025 End: March 22, 2025 Dr. Dennis Hamm MD Attending Provider Active Start: March 22, 2025 End: March 22, 2025 Dr. Dennis Hamm MD Referring Provider Active Start: March 22, 2025 End: March 22, 2025 Team Status: Active Member Role Status Dates PERLA Nick Attending Provider Active Start: March 24, 2025 Rachel Madden NP-C Referring Provider Active Start: March 24, 2025 Dr. Dennis Hamm MD Primary Care Provider Active Start: March 24, 2025 Team Status: Inactive Member Role Status Dates Rachel Madden NP-C Attending Provider Active Start: March 24, 2025 End: March 24, 2025 Rachel Madden NP-C Referring Provider Active Start: March 24, 2025 End: March 24, 2025 Dr. Dennis Hamm MD Primary Care Provider Active Start: March 24, 2025 End: March 24, 2025 Team Status: Active Member Role Status Dates Dr. Dennis Hamm MD Primary Care Provider Active Start: March 28, 2025 Rachel Madden NP-C Attending Provider Active Start: March 28, 2025 Rachel Madden NP-C Referring Provider Active Start: March 28, 2025 Team Status: Inactive Member Role Status Dates Dr. Dennis Hamm MD Primary Care Provider Active Start: March 28, 2025 End: March 28, 2025 Rachel Madden NP-C Attending Provider Active Start: March 28, 2025 End: March 28, 2025 Rachel Madden NP-Beverley Referring Provider Active Start: March 28, 2025 End: March 28, 2025 Team Status: Active Member Role Status Dates Dr. Dennis Hamm MD Primary Care Provider Active Start: March 31, 2025 Dr. Dennis Hamm MD Attending Provider Active Start: March 31, 2025 Dr. Dennis Hamm MD Referring Provider Active Start: March 31, 2025 Team Status: Active Member Role Status Dates Dr. Dennis Hamm MD Primary Care Provider Active Start: April [...] 2025 End: April 06, 2025 Rachel Madden , GENOC Attending Provider Active Start: April 06, 2025 End: April 06, 2025 Dr. Dennis Hamm MD Primary Care Provider Active Start: April 06, 2025 End: April 06, 2025 Team Status: Inactive Member Role Status Dates Dr. Dennis Hamm MD Primary Care Provider Active Start: March 31, 2025 End: March 31, 2025 Dr. Dennis Hamm MD Attending Provider Active Start: March 31, 2025 End: March 31, 2025 Dr. Dennis Hamm MD Referring Provider Active Start: March 31, 2025 End: March 31, 2025 Team Status: Inactive Member Role Status Dates Dr. Dennis Hamm MD Primary Care Provider Active Start: April 07, 2025 End: April 07, 2025 Dr. Dennis Hamm MD Referring Provider Active Start: April 07, 2025 End: April 07, 2025 LAZARO Garcia Attending Provider Active Start: April 07, 2025 End: April 07, 2025 Housing Management Officer Relationship Specialty Start Date End Date Dennis Hamm MD [address] [facility] [place] [address] PCP - General Internal Medicine 02/18/25 Barbie Ruiz MD [address] [place] [address] Pulmonary and Critical Care Medicine 10/14/23 02/17/25 PodlogarSahra APRN.CNP [address] [place] [address] Family Medicine 12/17/24 02/17/25 Rachel Madden CNP [address] [place] [address] Family Medicine 02/18/25 Team Status: Active Member Role/Relationship Status Dates Dr. Dennis Hamm MD Primary Care Provider Active Team Status: Inactive Member Role/Relationship Status Dates Dr. Jake Wallis MD Referring Provider Active Start: February 02, [...] 2025 End: March 16, 2025 Dr. Dennis Hamm MD Attending Provider Active Start: March 16, 2025 End: March 16, 2025 Team Status: Inactive Member Role/Relationship Status Dates PERLA Nick Attending Provider Active Start: March 17, 2025 End: March 17, 2025 PERLA Nick Referring Provider Active Start: March 17, 2025 End: March 17, 2025 Dr. Dennis Hamm MD Primary Care Provider Active Start: March 17, 2025 End: March 17, 2025 Team Status: Inactive Member Role/Relationship Status Dates Dr. Dennis Hamm MD Primary Care Provider Active Start: March 22, 2025 End: March 22, 2025 Dr. Dennis Hamm MD Attending Provider Active Start: March 22, 2025 End: March 22, 2025 Dr. Dennis Hamm MD Referring Provider Active Start: March 22, 2025 End: March 22, 2025 Team Status: Inactive Member Role/Relationship Status Dates GENO NickC Attending Provider Active Start: March 24, 2025 End: March 24, 2025 Rachel Madden NP-C Referring Provider Active Start: March 24, 2025 End: March 24, 2025 Dr. Dennis Hamm MD Primary Care Provider Active Start: March 24, 2025 End: March 24, 2025 Team Status: Active Member Role/Relationship Status Dates Dr. Dennis Hamm MD Primary Care Provider Active Start: March 24, 2025 Dr. Mitch Ruiz DO Attending Provider Active S tart: March 24, 2025 Rachel Madden NP-C Referring Provider Active Start: March 24, 2025 Team Status: Inactive Member Role/Relationship Status Dates Dr. Dennis Hamm MD Primary Care Provider Active Start: March 28, 2025 End: March 28, 2025 Rachel Madden NP-C Attending Provider Active Start: March 28, 2025 End: March 28, 2025 Rachel Madden NP-C Referring Provider Active Start: March 28, 2025 End: March 28, 2025 Team Status: Inactive Member Role/Relationship Status Dates Dr. Dennis Hamm MD Primary Care Provider Active Start: March 31, 2025 End: March 31, 2025 Dr. Dennis Hamm MD Attending Provider Active Start: March 31, 2025 End: March 31, 2025 Dr. Dennis Hamm MD Referring Provider Active Start: March 31, 2025 End: March 31, 2025 Team Status: Active Member Role/Relationship Status Dates Dr. Dennis Hamm MD Primary Care Provider Active Start: April 04, 2025 Rachel Madden NP-C Referring Provider Active Start: April 04, 2025 GENO NickC Other Provider Active St art: April 04, 2025 Dr. Mitch Ruiz DO Attending Provider Active S tart: April 04, 2025 Team Status: Inactive Member Role/Relationship Status Dates No Primary Care Physician Referring Provider Active Start: April 06, 2025 End: April 06, 2025 Rachel Madden NP-C Attending Provider Active Start: April 06, 2025 End: April 06, 2025 Dr. Dennis Hamm MD Primary Care Provider Active Start: April 06, 2025 End: April 06, 2025 Team Status: Inactive Member Role/Relationship Status Dates Dr. Dennis Hamm MD Primary Care Provider Active Start: April 07, 2025 End: April 07, 2025 Dr. Dennis Hamm MD Referring Provider Active Start: April 07, 2025 End: April 07, 2025 LAZARO Garcia Attending Provider Active Start: April 07, 2025 End: April 07, 2025 Team Status: Inactive Member Role/Relationship Status Dates Dr. Dennis Hamm MD Primary Care Provider Active Start: May 16, 2025 End: May 16, 2025 Dr. Dennis Hamm MD Referring Provider Active Start: May 16, [...] 2025 End: March 16, 2025 Dr. Dennis Hmam MD Attending Provider Active Start: March 16, 2025 End: March 16, 2025 Team Status: Inactive Member Role/Relationship Status Dates GENO NickC Attending Provider Active Start: March 17, 2025 End: March 17, 2025 Rachel Madden NP-C Referring Provider Active Start: March 17, 2025 End: March 17, 2025 Dr. Dennis Hamm MD Primary Care Provider Active Start: March 17, 2025 End: March 17, 2025 Team Status: Inactive Member Role/Relationship Status Dates Dr. Dennis Hamm MD Primary Care Provider Active Start: March 22, 2025 End: March 22, 2025 Dr. Dennis Hamm MD Attending Provider Active Start: March 22, 2025 End: March 22, 2025 Dr. Dennis Hamm MD Referring Provider Active Start: March 22, 2025 End: March 22, 2025 Team Status: Inactive Member Role/Relationship Status Dates Rachel Madden NP-C Attending Provider Active Start: March 24, 2025 End: March 24, 2025 PERLA Nick Referring Provider Active Start: March 24, 2025 End: March 24, 2025 Dr. Dennis Hamm MD Primary Care Provider Active Start: March 24, 2025 End: March 24, 2025 Team Status: Active Member Role/Relationship Status Dates Dr. Dennis Hamm MD Primary Care Provider Active Start: March 24, 2025 Dr. Mitch Ruiz DO Attending Provider Active S tart: March 24, 2025 Rachel Madden NP-C Referring Provider Active Start: March 24, 2025 Team Status: Inactive Member Role/Relationship Status Dates Dr. Dennis Hamm MD Primary Care Provider Active Start: March 28, 2025 End: March 28, 2025 PERLA Nick Attending Provider Active Start: March 28, 2025 End: March 28, 2025 PERLA Nick Referring Provider Active Start: March 28, 2025 End: March 28, 2025 Team Status: Inactive Member Role/Relationship Status Dates Dr. Dennis Hamm MD Primary Care Provider Active Start: March 31, 2025 End: March 31, 2025 Dr. Dennis Hamm MD Attending Provider Active Start: March 31, 2025 End: March 31, 2025 Dr. Dennis Hamm MD Referring Provider Active Start: March 31, 2025 End: March 31, 2025 Team Status: Active Member Role/Relationship Status Dates Dr. Dennis Hamm MD Primary Care Provider Active Start: April [...] 2025 End: April 06, 2025 Dr. Dennis Hamm MD Primary Care Provider Active Start: April 06, 2025 End: April 06, 2025 Team Status: Inactive Member Role/Relationship Status Dates Dr. Dennis Hamm MD Primary Care Provider Active Start: April 07, 2025 End: April 07, 2025 Dr. Dennis Hamm MD Referring Provider Active Start: April 07, 2025 End: April 07, 2025 LAZARO Garcia Attending Provider Active Start: April 07, 2025 End: April 07, 2025 Team Status: Inactive Member Role/Relationship Status Dates Dr. Dennis Hamm MD Primary Care Provider Active Start: May 16, 2025 End: May 16, 2025 Dr. Dennis Hamm MD Referring Provider Active Start: May 16, 2025 End: May 16, 2025 Dr. Dao Luciano MD Attending Provider Active Start: May 16, 2025 End: May 16, 2025 Team Status: Active Member Role/Relationship Status Dates Dr. Dennis Hamm MD Primary Care Provider Active Start: May 21, 2025 Dr. Dao Luciano MD Attending Provider Active Start: May 21, 2025 Dr. Dao Luciano MD Referring Provider Active Start: May 21, 2025 Team Status: Inactive Member Role/Relationship Status Dates Dr. Dennis Hamm MD Primary Care Provider Active Start: June 07, 2025 End: June 07, 2025 Dr. Dennis Hamm MD Referring Provider Active Start: June 07, 2025 End: June 07, 2025 [place] NURSE Attending Provider Active Start: 2024 End: June 07, 2025 Team Status: Active Member Role/Relationship Status Dates Dr. Dennis Hamm MD Primary Care Provider Active Start: June 10, 2025 Dr. Dao Luciano MD Attending Provider Active Start: June 10, 2025 Dr. Dao Luciano MD Referring Provider Active Start: June 10, 2025 Team Status: Inactive Member Role/Relationship Status Dates Dr. Dennis Hamm MD Primary Care Provider Active Start: June 10, 2025 End: June 10, 2025 Dr. Dennis Hamm MD Referring Provider Active Start: June 10, 2025 End: June 10, 2025 Dr. Janie Elias MD Attending Provider Active Start: June 10, 2025 End: June 10, 2025 Team Status: Inactive Member Role/Relationship Status Dates Dr. Dennis Hamm MD Primary Care Provider Active Start: June 10, 2025 End: June 10, 2025 Dr. Dao Luciano MD Attending Provider Active Start: June 10, 2025 End: June 10, 2025 Dr. Dao Luciano MD Referring Provider Active Start: June 10, 2025 End: June 10, 2025 Team Status: Active Member Role/Relationship Status Dates Dr. Dennis Hamm MD Primary Care Provider Active Start: June 10, 2025 Dr. Manolo Kothari MD Attending Provider Active S tart: June 10, 2025 Team Status: Inactive Member Role/Relationship Status Dates Dr. Dennis Hamm MD Primary Care Provider Active Start: June 10, 2025 End: June 10, 2025 Dr. Dennis Hamm MD Referring Provider Active Start: June 10, 2025 End: June 10, 2025 Dr. Janie Elias MD Attending Provider Active Start: June 10, 2025 End: June 10, 2025 Team Status: Inactive Member Role/Relationship Status Dates Dr. Dennis Hamm MD Primary Care Provider Active Start: June 21, 2025 End: June 21, 2025 Dr. Dennis Hamm MD Referring Provider Active Start: June 21, 2025 End: June 21, 2025 Ginny Acevedo PASTRY BAKER, PASTRY BAKER-C Attending Provider Active Start: June 21, 2025 End: June 21, 2025 Team Status: Inactive Member Role/Relationship Status Dates Dr. Dennis Hamm MD Primary Care Provider Active Start: June 07, 2025 End: June 07, 2025 Dr. Dennis Hamm MD Attending Provider Active Start: June 07, 2025 End: June 07, 2025 Dr. Dennis Hamm MD Referring Provider Active Start: June 07, 2025 End: June 07, 2025 Team Status: Active Member Role/Relationship Status Dates Dr. Dennis Hamm MD Primary Care Provider Active Start: June 21, 2025 Ginny Acevedo PASTRY BAKER, PASTRY BAKER-C Attending Provider Active Start: June 21, 2025 Team Status: Inactive Member Role/Relationship Status Dates Dr. Dennis Hamm MD Primary Care Provider Active Start: June 27, 2025 End: June 27, 2025 Dr. Dennis Hamm MD Attending Provider Active Start: June 27, 2025 End: June 27, 2025 Dr. Dennis Hamm MD Referring Provider Active Start: June 27, 2025 End: June 27, 2025 Team Status: Inactive Member Role/Relationship Status Dates Dr. Dennis Hamm MD Primary Care Provider Active Start: June 21, 2025 End: June 21, 2025 Ginny Acevedo PASTRY BAKER, PASTRY BAKER-C Attending Provider Active Start: June 21, 2025 End: June 21, 2025 Team Status: Active Member Role/Relationship Status Dates Dr. Dennis Hamm MD Primary Care Provider Active Start: July 05, 2025 Dr. Dennis Hamm MD Referring Provider Active Start: July 05, 2025 Conor Barros MD Attending Provider Active St art: July 05, 2025 Team Status: Inactive Member Role/Relationship Status Dates Dr. Dennis Hamm MD Primary Care Provider Active Start: July 05, 2025 End: July 05, 2025 Dr. Manolo Kothari MD Attending Provider Active S tart: July 05, 2025 End: July 05, 2025 Team Status: Inactive Member Role/Relationship Status Dates Dr. Dennis Hamm MD Primary Care Provider Active Start: July 05, 2025 End: July 05, 2025 Dr. Dennis Hamm MD Referring Provider Active Start: July 05, 2025 End: July 05, 2025 Conor Barros MD Attending Provider Active St art: July 05, 2025 End: July 05, 2025 Team Status: Inactive Member Role/Relationship Status Dates PERLA Nick Attending Provider Active Start: March 17, 2025 End: March 17, 2025 PERLA Nick Referring Provider Active Start: March 17, 2025 End: March 17, 2025 Dr. Dennis Hamm MD Primary Care Provider Active Start: March 17, 2025 End: March 17, 2025 Team Status: Inactive Member Role/Relationship Status Dates Dr. Dennis Hamm MD Primary Care Provider Active Start: March 22, 2025 End: March 22, 2025 Dr. Dennis Hamm MD Attending Provider Active Start: March 22, 2025 End: March 22, 2025 Dr. Dennis Hamm MD Referring Provider Active Start: March 22, 2025 End: March 22, 2025 Team Status: Inactive Member Role/Relationship Status Dates GENO NickC Attending Provider Active Start: March 24, 2025 End: March 24, 2025 PERLA Nick Referring Provider Active Start: March 24, 2025 End: March 24, 2025 Dr. Dennis Hamm MD Primary Care Provider Active Start: March 24, 2025 End: March 24, 2025 Team Status: Active Member Role/Relationship Status Dates Dr. Dennis Hamm MD Primary Care Provider Active Start: March 24, 2025 Dr. Mitch Ruiz DO Attending Provider Active S tart: March 24, 2025 GENO NickC Referring Provider Active Start: March 24, 2025 Team Status: Inactive Member Role/Relationship Status Dates Dr. Dennis Hamm MD Primary Care Provider Active Start: March 28, 2025 End: March 28, 2025 PERLA Nick Attending Provider Active Start: March 28, 2025 End: March 28, 2025 PERLA Nick Referring Provider Active Start: March 28, 2025 End: March 28, 2025 Team Status: Inactive Member Role/Relationship Status Dates Dr. Dennis Hamm MD Primary Care Provider Active Start: March 31, 2025 End: March 31, 2025 Dr. Dennis Hamm MD Attending Provider Active Start: March 31, 2025 End: March 31, 2025 Dr. Dennis Hamm MD Referring Provider Active Start: March 31, 2025 End: March 31, 2025 Team Status: Active Member Role/Relationship Status Dates Dr. Dennis Hamm MD Primary Care Provider Active Start: April 04, 2025 GENO NickC Referring Provider Active Start: April 04, 2025 [...] 2025 End: April 06, 2025 Dr. Dennis Hamm MD Primary Care Provider Active Start: April 06, 2025 End: April 06, 2025 Team Status: Inactive Member Role/Relationship Status Dates Dr. Dennis Hamm MD Primary Care Provider Active Start: April 07, 2025 End: April 07, 2025 Dr. Dennis Hamm MD Referring Provider Active Start: April 07, 2025 End: April 07, 2025 LAZARO Garcia Attending Provider Active Start: April 07, 2025 End: April 07, 2025 Team Status: Inactive Member Role/Relationship Status Dates Dr. Dennis Hamm MD Primary Care Provider Active Start: May 16, 2025 End: May 16, 2025 Dr. Dennis Hamm MD Referring Provider Active Start: May 16, 2025 End: May 16, 2025 Dr. Dao Luciano MD Attending Provider Active Start: May 16, 2025 End: May 16, 2025 Team Status: Active Member Role/Relationship Status Dates Dr. Dennis Hamm MD Primary Care Provider Active Start: May 21, 2025 Dr. Dao Luciano MD Attending Provider Active Start: May 21, 2025 Dr. Dao Luciano MD Referring Provider Active Start: May 21, 2025 Team Status: Active Member Role/Relationship Status Dates Dr. Dennis Hamm MD Primary Care Provider Active Start: May 21, 2025 Dr. Dao Luciano MD Attending Provider Active Start: May 21, 2025 Dr. Dao Luciano MD Referring Provider Active Start: May 21, 2025 Team Status: Inactive Member Role/Relationship Status Dates Dr. Dennis Hamm MD Primary Care Provider Active Start: June 07, 2025 End: June 07, 2025 Dr. Dennis Hamm MD Attending Provider Active Start: June 07, 2025 End: June 07, 2025 Dr. Dennis Hamm MD Referring Provider Active Start: June 07, 2025 End: June 07, 2025 Team Status: Inactive Member Role/Relationship Status Dates Dr. Dennis Hamm MD Primary Care Provider Active Start: June 10, 2025 End: June 10, 2025 Dr. Dao Luciano MD Attending Provider Active Start: June 10, 2025 End: June 10, 2025 Dr. Dao Luciano MD Referring Provider Active Start: June 10, 2025 End: June 10, 2025 Team Status: Active Member Role/Relationship Status Dates Dr. Dennis Hamm MD Primary Care Provider Active Start: June 10, 2025 Dr. Manolo Kothari MD Attending Provider Active S tart: June 10, 2025 Team Status: Inactive Member Role/Relationship Status Dates Dr. Dennis Hamm MD Primary Care Provider Active Start: June 10, 2025 End: June 10, 2025 Dr. Dennis Hamm MD Referring Provider Active Start: June 10, 2025 End: June 10, 2025 Dr. Janie Elias MD Attending Provider Active Start: June 10, 2025 End: June 10, 2025 Team Status: Inactive Member Role/Relationship Status Dates Dr. Dennis Hamm MD Primary Care Provider Active Start: June 21, 2025 End: June 21, 2025 Dr. Dennis Hamm MD Referring Provider Active Start: June 21, 2025 End: June 21, 2025 Ginny Acevedo PASTRY BAKER, PASTRY BAKER-C Attending Provider Active Start: June 21, 2025 End: June 21, 2025 Team Status: Inactive Member Role/Relationship Status Dates Dr. Dennis Hamm MD Primary Care Provider Active Start: June 21, 2025 End: June 21, 2025 Ginny Acevedo PASTRY BAKER, PASTRY BAKER-C Attending Provider Active Start: June 21, 2025 End: June 21, 2025 Team Status: Inactive Member Role/Relationship Status Dates Dr. Dennis Hamm MD Primary Care Provider Active Start: June 27, 2025 End: June 27, 2025 Dr. Dennis Hamm MD Attending Provider Active Start: June 27, 2025 End: June 27, 2025 Dr. Dennis Hamm MD Referring Provider Active Start: June 27, 2025 End: June 27, 2025 Team Status: Inactive Member Role/Relationship Status Dates Dr. Dennis Hamm MD Primary Care Provider Active Start: July 05, 2025 End: July 05, 2025 Dr. Dennis Hamm MD Referring Provider Active Start: July 05, 2025 End: July 05, 2025 Conor Barros MD Attending Provider Active St art: July 05, 2025 End: July 05, 2025 Team Status: Inactive Member Role/Relationship Status Dates Dr. Dennis Hamm MD Primary Care Provider Active Start: July 05, 2025 End: July 05, 2025 Dr. Manolo Kothari MD Attending Provider Active S tart: July 05, 2025 End: July 05, 2025 Team Status: Inactive Member Role/Relationship Status Dates Dr. Dennis Hamm MD Primary Care Provider Active Start: July 08, 2025 End: July 08, 2025 Dr. Dennis Hamm MD Attending Provider Active Start: July 08, 2025 End: July 08, 2025 Dr. Dennis Hamm MD Referring Provider Active Start: July 08, 2025 End: July 08, 2025 Team Status: Active Member Role/Relationship Status Dates Dr. Dennis Hamm MD Primary Care Provider Active Start: July 14, 2025 Dr. Dennis Hamm MD Attending Provider Active Start: July 14, 2025 Team Status: Inactive Member Role/Relationship Status Dates Dr. Dennis Hamm MD Primary Care Provider Active Start: March 22, 2025 End: March 22, 2025 Dr. Dennis Hamm MD Attending Provider Active Start: March 22, 2025 End: March 22, 2025 Dr. Dennis Hamm MD Referring Provider Active Start: March 22, 2025 End: March 22, 2025 Team Status: Inactive Member Role/Relationship Status Dates Rachel Madden NP-C Attending Provider Active Start: March 24, 2025 End: March 24, 2025 Rachel Madden NP-C Referring Provider Active Start: March 24, 2025 End: March 24, 2025 Dr. Dennis Hamm MD Primary Care Provider Active Start: March 24, 2025 End: March 24, 2025 Team Status: Active Member Role/Relationship Status Dates Dr. Dennis Hamm MD Primary Care Provider Active Start: March 24, 2025 Dr. Mitch Ruiz DO Attending Provider Active S tart: March 24, 2025 Rachel Madden NP-C Referring Provider Active Start: March 24, 2025 Team Status: Inactive Member Role/Relationship Status Dates Dr. Dennis Hamm MD Primary Care Provider Active Start: March 28, 2025 End: March 28, 2025 GENO NickC Attending Provider Active Start: March 28, 2025 End: March 28, 2025 Rachel Madden NP-[place] Referring Provider Active Start: March 28, 2025 End: March 28, 2025 Team Status: Inactive Member Role/Relationship Status Dates Dr. Dennis Hamm MD Primary Care Provider Active Start: March 31, 2025 End: March 31, 2025 Dr. Dennis Hamm MD Attending Provider Active Start: March 31, 2025 End: March 31, 2025 Dr. Dennis Hamm MD Referring Provider Active Start: March 31, 2025 End: March 31, 2025 Team Status: Active Member Role/Relationship Status Dates Dr. Dennis Hamm MD Primary Care Provider Active Start: April [...] 2025 End: April 06, 2025 Dr. Dennis Hamm MD Primary Care Provider Active Start: April 06, 2025 End: April 06, 2025 Team Status: Inactive Member Role/Relationship Status Dates Dr. Dennis Hamm MD Primary Care Provider Active Start: April 07, 2025 End: April 07, 2025 Dr. Dennis Hamm MD Referring Provider Active Start: April 07, 2025 End: April 07, 2025 LAZARO Garcia Attending Provider Active Start: April 07, 2025 End: April 07, 2025 Team Status: Inactive Member Role/Relationship Status Dates Dr. Dennis Hamm MD Primary Care Provider Active Start: May 16, 2025 End: May 16, 2025 Dr. Dennis Hamm MD Referring Provider Active Start: May 16, 2025 End: May 16, 2025 Dr. Dao Luciano MD Attending Provider Active Start: May 16, 2025 End: May 16, 2025 Team Status: Active Member Role/Relationship Status Dates Dr. Dennis Hamm MD Primary Care Provider Active Start: May 21, 2025 Dr. Dao Luciano MD Attending Provider Active Start: May 21, 2025 Dr. Dao Luciano MD Referring Provider Active Start: May 21, 2025 Team Status: Inactive Member Role/Relationship Status Dates Dr. Dennis Hamm MD Primary Care Provider Active Start: June 07, 2025 End: June 07, 2025 Dr. Dennis Hamm MD Attending Provider Active Start: June 07, 2025 End: June 07, 2025 Dr. Dennis Hamm MD Referring Provider Active Start: June 07, 2025 End: June 07, 2025 Team Status: Inactive Member Role/Relationship Status Dates Dr. Dennis Hamm MD Primary Care Provider Active Start: June 10, 2025 End: June 10, 2025 Dr. Dao Luciano MD Attending Provider Active Start: June 10, 2025 End: June 10, 2025 Dr. Dao Luciano MD Referring Provider Active Start: June 10, 2025 End: June 10, 2025 Team Status: Active Member Role/Relationship Status Dates Dr. Dennis Hamm MD Primary Care Provider Active Start: June 10, 2025 Dr. Manolo Kothari MD Attending Provider Active S tart: June 10, 2025 Team Status: Inactive Member Role/Relationship Status Dates Dr. Dennis Hamm MD Primary Care Provider Active Start: June 10, 2025 End: June 10, 2025 Dr. Dennis Hamm MD Referring Provider Active Start: June 10, 2025 End: June 10, 2025 Dr. Janie Elias MD Attending Provider Active Start: June 10, 2025 End: June 10, 2025 Team Status: Inactive Member Role/Relationship Status Dates Dr. Dennis Hamm MD Primary Care Provider Active Start: June 21, 2025 End: June 21, 2025 Dr. Dennis Hamm MD Referring Provider Active Start: June 21, 2025 End: June 21, 2025 Ginny Acevedo PASTRY BAKER, PASTRY BAKER-C Attending Provider Active Start: June 21, 2025 End: June 21, 2025 Team Status: Inactive Member Role/Relationship Status Dates Dr. Dennis Hamm MD Primary Care Provider Active Start: June 21, 2025 End: June 21, 2025 Ginny Acevedo PASTRY BAKER, PASTRY BAKER-C Attending Provider Active Start: June 21, 2025 End: June 21, 2025 Team Status: Inactive Member Role/Relationship Status Dates Dr. Dennis Hamm MD Primary Care Provider Active Start: June 27, 2025 End: June 27, 2025 Dr. Dennis Hamm MD Attending Provider Active Start: June 27, 2025 End: June 27, 2025 Dr. Dennis Hamm MD Referring Provider Active Start: June 27, 2025 End: June 27, 2025 Team Status: Inactive Member Role/Relationship Status Dates Dr. Dennis Hamm MD Primary Care Provider Active Start: July 05, 2025 End: July 05, 2025 Dr. Dennis Hamm MD Referring Provider Active Start: July 05, 2025 End: July 05, 2025 Conor Barros MD Attending Provider Active St art: July 05, 2025 End: July 05, 2025 Team Status: Inactive Member Role/Relationship Status Dates Dr. Dennis Hamm MD Primary Care Provider Active Start: July 05, 2025 End: July 05, 2025 Dr. Manolo Kothari MD Attending Provider Active S tart: July 05, 2025 End: July 05, 2025 Team Status: Inactive Member Role/Relationship Status Dates Dr. Dennis Hamm MD Primary Care Provider Active Start: July 08, 2025 End: July 08, 2025 Dr. Dennis Hamm MD Attending Provider Active Start: July 08, 2025 End: July 08, 2025 Dr. Dennis Hamm MD Referring Provider Active Start: July 08, 2025 End: July 08, 2025 Team Status: Active Member Role/Relationship Status Dates Dr. Dennis Hamm MD Primary Care Provider Active Start: July 14, 2025 Dr. Dennis Hamm MD Attending Provider Active Start: July 14, 2025 Team Status: Inactive Member Role/Relationship Status Dates Dr. Dennis Hamm MD Primary Care Provider Active Start: July 20, 2025 End: July 20, 2025 Dr. Dennis Hamm MD Referring Provider Active Start: July 20, 2025 End: July 20, 2025 Ginny Acevedo NP, ROWAN-C Attending Provider Active Start: July 20, 2025 End: July 20, 2025 Team Status: Active Member Role/Relationship Status Dates Dr. Dennis Hamm MD Primary care physician Active Team Status: Active Member Role/Relationship Status Dates Dr. Dennis Hamm MD Primary care physician Active Start: April 04, 2025 Rachel Madden NP-C Referring Provider Active Start: April 04, 2025 GENO NickC Nurse Practitioner Active Start: April 04, 2025 Dr. Mitch Ruiz DO Attending physician Active Start: April 04, 2025 Team Status: Inactive Member Role/Relationship Status Dates No Primary Care Physician Referring Provider Active Start: April 06, 2025 End: April 06, 2025 PERLA Nick Attending physician Active Start: April 06, 2025 End: April 06, 2025 Dr. Dennis Hamm MD Primary care physician Active Start: April 06, 2025 End: April 06, 2025 Team Status: Inactive Member Role/Relationship Status Dates Dr. Dennis Hamm MD Primary care physician Active Start: April 07, 2025 End: April 07, 2025 Dr. Dennis Hamm MD Referring Provider Active Start: April 07, 2025 End: April 07, 2025 LAZARO Garcia Attending physician Active Start: April 07, 2025 End: April 07, 2025 Team Status: Inactive Member Role/Relationship Status Dates Dr. Dennis Hamm MD Primary care physician Active Start: May 16, 2025 End: May 16, 2025 Dr. Dennis Hamm MD Referring Provider Active Start: May 16, 2025 End: May 16, 2025 Dr. Dao Luciano MD Attending physician Active Start: May 16, 2025 End: May 16, 2025 Team Status: Active Member Role/Relationship Status Dates Dr. Dennis Hamm MD Primary care physician Active Start: May 21, 2025 Dr. Dao Luciano MD Attending physician Active Start: May 21, 2025 Dr. Dao Luciano MD Referring Provider Active Start: May 21, 2025 Team Status: Active Member Role/Relationship Status Dates Dr. Dennis Hamm MD Primary care physician Active Start: May 21, 2025 Dr. Dao Luciano MD Attending physician Active Start: May 21, 2025 Dr. Dao Luciano MD Referring Provider Active Start: May 21, 2025 Team Status: Inactive Member Role/Relationship Status Dates Dr. Dennis Hamm MD Primary care physician Active Start: June 07, 2025 End: June 07, 2025 Dr. Dennis Hamm MD Attending physician Active Start: June 07, 2025 End: June 07, 2025 Dr. Dennis Hamm MD Referring Provider Active Start: June 07, 2025 End: June 07, 2025 Team Status: Inactive Member Role/Relationship Status Dates Dr. Dennis Hamm MD Primary care physician Active Start: June 10, 2025 End: June 10, 2025 Dr. Dao Luciano MD Attending physician Active Start: June 10, 2025 End: June 10, 2025 Dr. Dao Luciano MD Referring Provider Active Start: June 10, 2025 End: June 10, 2025 Team Status: Active Member Role/Relationship Status Dates Dr. Dennis Hamm MD Primary care physician Active Start: June 10, 2025 Dr. Manolo Kothari MD Attending physician Active Start: June 10, 2025 Team Status: Inactive Member Role/Relationship Status Dates Dr. Dennis Hamm MD Primary care physician Active Start: June 10, 2025 End: June 10, 2025 Dr. Dennis Hamm MD Referring Provider Active Start: June 10, 2025 End: June 10, 2025 Dr. Janie Elias MD Attending physician Active Start: June 10, 2025 End: June 10, 2025 Team Status: Inactive Member Role/Relationship Status Dates Dr. Dennis Hamm MD Primary care physician Active Start: June 21, 2025 End: June 21, 2025 Dr. Dennis Hamm MD Referring Provider Active Start: June 21, 2025 End: June 21, 2025 Ginny Acevedo PASTRY BAKER, PASTRY BAKER-C Attending physician Active Start: June 21, 2025 End: June 21, 2025 Team Status: Inactive Member Role/Relationship Status Dates Dr. Dennis Hamm MD Primary care physician Active Start: June 21, 2025 End: June 21, 2025 Ginny Acevedo PASTRY BAKER, PASTRY BAKER-C Attending physician Active Start: June 21, 2025 End: June 21, 2025 Team Status: Inactive Member Role/Relationship Status Dates Dr. Dennis Hamm MD Primary care physician Active Start: June 27, 2025 End: June 27, 2025 Dr. Dennis Hamm MD Attending physician Active Start: June 27, 2025 End: June 27, 2025 Dr. Dennis Hamm MD Referring Provider Active Start: June 27, 2025 End: June 27, 2025 Team Status: Inactive Member Role/Relationship Status Dates Dr. Dennis Hamm MD Primary care physician Active Start: July 05, 2025 End: July 05, 2025 Dr. Dennis Hamm MD Referring Provider Active Start: July 05, 2025 End: July 05, 2025 Conor Barros MD Attending physician Active S tart: July 05, 2025 End: July 05, 2025 Team Status: Inactive Member Role/Relationship Status Dates Dr. Dennis Hamm MD Primary care physician Active Start: July 05, 2025 End: July 05, 2025 Dr. Manolo Kothari MD Attending physician Active Start: July 05, 2025 End: July 05, 2025 Team Status: Inactive Member Role/Relationship Status Dates Dr. Dennis Hamm MD Primary care physician Active Start: July 08, 2025 End: July 08, 2025 Dr. Dennis Hamm MD Attending physician Active Start: July 08, 2025 End: July 08, 2025 Dr. Dennis Hamm MD Referring Provider Active Start: July 08, 2025 End: July 08, 2025 Team Status: Inactive Member Role/Relationship Status Dates Dr. Dennis Hamm MD Primary care physician Active Start: July 14, 2025 End: July 14, 2025 Dr. Dennis Hamm MD Attending physician Active Start: July 14, 2025 End: July 14, 2025 Team Status: Inactive Member Role/Relationship Status Dates Dr. Dennis Hamm MD Primary care physician Active Start: July 20, 2025 End: July 20, 2025 Dr. Dennis Hamm MD Referring Provider Active Start: July 20, 2025 End: July 20, 2025 Ginny Acevedo PASTRY BAKER, PASTRY BAKER-C Attending physician Active Start: July 20, 2025 End: July 20, 2025 Team Status: Active Member Role/Relationship Status Dates Dr. Dennis Hamm MD Primary care physician Active Start: July 20, 2025 Ginny Acevedo PASTRY BAKER, PASTRY BAKER-C Attending physician Active Start: July 20, 2025 Ginny Acevedo PASTRY BAKER, PASTRY BAKER-C Referring Provider Active Start: July 20, 2025 Team Status: Active Member Role/Relationship Status Dates Dr. Dennis Hamm MD Primary care physician Active Start: July 20, 2025 Conor Barros MD Attending physician Active S tart: July 20, 2025 Conor Barros MD Referring Provider Active St art: July 20, 2025 Team Status: Inactive Member Role/Relationship Status Dates Dr. Dennis Hamm MD Primary care physician Active Start: July 28, 2025 End: July 28, 2025 Dr. Dennis Hamm MD Referring Provider Active Start: July 28, 2025 End: July 28, 2025 Evelia Kimble , PASTRY BAKER-C Attending physician Active Start: July 28, 2025 End: July 28, 2025 Team Status: Active Member Role/Relationship Status Dates Dr. Dennis Hamm MD Primary care physician Active Start: July 28, 2025 Evelia Vasquezeredixie , PASTRY BAKER-C Attending physician Active Start: July 28, 2025 Evelia Vasquezeredixie , PASTRY BAKER-C Referring Provider Active Start: July 28, 2025 Team Status: Inactive Member Role/Relationship Status Dates Dr. Dennis Hamm MD Primary care physician Active Start: May 16, 2025 End: May 16, 2025 Dr. Dennis Hamm MD Referring Provider Active Start: May 16, 2025 End: May 16, 2025 Dr. Dao Luciano MD Attending physician Active Start: May 16, 2025 End: May 16, 2025 Team Status: Active Member Role/Relationship Status Dates Dr. Dennis Hamm MD Primary care physician Active Start: May 21, 2025 Dr. Dao Luciano MD Attending physician Active Start: May 21, 2025 Dr. Dao Luciano MD Referring Provider Active Start: May 21, 2025 Team Status: Active Member Role/Relationship Status Dates Dr. Dennis Hamm MD Primary care physician Active Start: May 21, 2025 Dr. Dao Luciano MD Attending physician Active Start: May 21, 2025 Dr. Dao Luciano MD Referring Provider Active Start: May 21, 2025 Team Status: Inactive Member Role/Relationship Status Dates Dr. Dennis Hamm MD Primary care physician Active Start: June 07, 2025 End: June 07, 2025 Dr. Dennis Hamm MD Attending physician Active Start: June 07, 2025 End: June 07, 2025 Dr. Dennis Hamm MD Referring Provider Active Start: June 07, 2025 End: June 07, 2025 Team Status: Inactive Member Role/Relationship Status Dates Dr. Dennis Hamm MD Primary care physician Active Start: June 10, 2025 End: June 10, 2025 Dr. Dao Luciano MD Attending physician Active Start: June 10, 2025 End: June 10, 2025 Dr. Dao Luciano MD Referring Provider Active Start: June 10, 2025 End: June 10, 2025 Team Status: Active Member Role/Relationship Status Dates Dr. Dennis Hamm MD Primary care physician Active Start: June 10, 2025 Dr. Manolo Kothari MD Attending physician Active Start: June 10, 2025 Team Status: Inactive Member Role/Relationship Status Dates Dr. Dennis Hamm MD Primary care physician Active Start: June 10, 2025 End: June 10, 2025 Dr. Dennis Hamm MD Referring Provider Active Start: June 10, 2025 End: June 10, 2025 Dr. Janie Elias MD Attending physician Active Start: June 10, 2025 End: June 10, 2025 Team Status: Inactive Member Role/Relationship Status Dates Dr. Dennis Hamm MD Primary care physician Active Start: June 21, 2025 End: June 21, 2025 Dr. Dennis Hamm MD Referring Provider Active Start: June 21, 2025 End: June 21, 2025 Ginny Acevedo PASTRY BAKER, PASTRY BAKER-C Attending physician Active Start: June 21, 2025 End: June 21, 2025 Team Status: Inactive Member Role/Relationship Status Dates Dr. Dennis Hamm MD Primary care physician Active Start: June 21, 2025 End: June 21, 2025 Ginny Acevedo PASTRY BAKER, PASTRY BAKER-C Attending physician Active Start: June 21, 2025 End: June 21, 2025 Team Status: Inactive Member Role/Relationship Status Dates Dr. Dennis Hamm MD Primary care physician Active Start: June 27, 2025 End: June 27, 2025 Dr. Dennsi Hamm MD Attending physician Active Start: June 27, 2025 End: June 27, 2025 Dr. Dennis Hamm MD Referring Provider Active Start: June 27, 2025 End: June 27, 2025 Team Status: Inactive Member Role/Relationship Status Dates Dr. Dennis Hamm MD Primary care physician Active Start: July 05, 2025 End: July 05, 2025 Dr. Dennis Hamm MD Referring Provider Active Start: July 05, 2025 End: July 05, 2025 Conor Barros MD Attending physician Active S tart: July 05, 2025 End: July 05, 2025 Team Status: Inactive Member Role/Relationship Status Dates Dr. Dennis Hamm MD Primary care physician Active Start: July 05, 2025 End: July 05, 2025 Dr. Manolo Kothari MD Attending physician Active Start: July 05, 2025 End: July 05, 2025 Team Status: Inactive Member Role/Relationship Status Dates Dr. Dennis Hamm MD Primary care physician Active Start: July 08, 2025 End: July 08, 2025 Dr. Dennis Hamm MD Attending physician Active Start: July 08, 2025 End: July 08, 2025 Dr. Dennis Hamm MD Referring Provider Active Start: July 08, 2025 End: July 08, 2025 Team Status: Inactive Member Role/Relationship Status Dates Dr. Dennis Hamm MD Primary care physician Active Start: July 14, 2025 End: July 14, 2025 Dr. Dennis Hamm MD Attending physician Active Start: July 14, 2025 End: July 14, 2025 Team Status: Inactive Member Role/Relationship Status Dates Dr. Dennis Hamm MD Primary care physician Active Start: July 20, 2025 End: July 20, 2025 Dr. Dennis Hamm MD Referring Provider Active Start: July 20, 2025 End: July 20, 2025 Ginny Acevedo NP, GENOC Attending physician Active Start: July 20, 2025 End: July 20, 2025 Team Status: Inactive Member Role/Relationship Status Dates Dr. Dennis Hamm MD Primary care physician Active Start: July 20, 2025 End: July 20, 2025 Ginny Acevedo PASTRY BAKER, PASTRY BAKER-C Attending physician Active Start: July 20, 2025 End: July 20, 2025 Ginny Acevedo PASTRY BAKER, PASTRY BAKER-C Referring Provider Active Start: July 20, 2025 End: July 20, 2025 Team Status: Active Member Role/Relationship Status Dates Dr. Dennis Hamm MD Primary care physician Active Start: July 20, 2025 Conor Barros MD Attending physician Active S tart: July 20, 2025 Conor Barros MD Referring Provider Active St art: July 20, 2025 Team Status: Inactive Member Role/Relationship Status Dates Dr. Dennis Hamm MD Primary care physician Active Start: July 28, 2025 End: July 28, 2025 Dr. Dennis Hamm MD Referring Provider Active Start: July 28, 2025 End: July 28, 2025 Evelia Kimble PASTRY BAKER-C Attending physician Active Start: July 28, 2025 End: July 28, 2025 Team Status: Active Member Role/Relationship Status Dates Dr. Dennis Hamm MD Primary care physician Active Start: July 28, 2025 Evelia Kimble , PASTRY BAKER-C Attending physician Active Start: July 28, 2025 Evelia Kimble , PASTRY BAKER-C Referring Provider Active Start: July 28, 2025 Team Status: Inactive Member Role/Relationship Status Dates Dr. Dennis Hamm MD Primary care physician Active Start: July 28, 2025 End: July 28, 2025 Evelia Kimble , PASTRY BAKER-C Attending physician Active Start: July 28, 2025 End: July 28, 2025 Evelia Vasquezeredixie , PASTRY BAKER-C Referring Provider Active Start: July 28, 2025 End: July 28, 2025 Team Status: Active Member Role/Relationship Status Dates Dr. Dennis Hamm MD Primary care physician Active Start: August 12, 2025 Dr. Dennis Hamm MD Referring Provider Active Start: August 12, 2025 LAZARO Umanzor Attending physician Active Sta rt: August 12, 2025 Team Status: Inactive Member Role/Relationship Status Dates Dr. Dennis Hamm MD Primary care physician Active Start: August 12, 2025 End: August 12, 2025 Dr. Manolo Kothari MD Attending physician Active Start: August 12, 2025 End: August 12, 2025 Team Status: Inactive Member Role/Relationship Status Dates Dr. Dennis Hamm MD Primary care physician Active Start: August 12, 2025 End: August 12, 2025 Dr. Dennis Hamm MD Referring Provider Active Start: August 12, 2025 End: August 12, 2025 LAZARO Umanzor Attending physician Active Sta rt: August 12, 2025 End: August 12, 2025 Team Status: Inactive Member Role/Relationship Status Dates Dr. Dennis Hamm MD Primary care physician Active Start: August 13, 2025 End: August 13, 2025 Dr. Carlos Jorgensen MD Emergency Depart ment Physician Active Start: August 13, 2025 End: August 13, 2025 Team Status: Inactive Member Role/Relationship Status Dates Dr. Dennis Hamm MD Primary care physician Active Start: July 20, 2025 End: July 20, 2025 Conor Barros MD Attending physician Active S tart: July 20, 2025 End: July 20, 2025 Conor Barros MD Referring Provider Active St art: July 20, 2025 End: July 20, 2025 Team Status: Inactive Member Role/Relationship Status Dates Dr. Dennis Hamm MD Primary care physician Active Start: August 13, 2025 End: August 13, 2025 Dr. Carlos Jorgensen MD Attending physician Active Start: August 13, 2025 End: August 13, 2025 Dr. Carlos Jorgensen MD Emergency Depart ment Physician Active Start: August 13, 2025 End: August 13, 2025 Team Status: Active Member Role/Relationship Status Dates Dr. Dennis Hamm MD Primary care physician Active Start: August 25, 2025 LAZARO Umanzor Attending physician Active Sta rt: August 25, 2025 LAZARO Umanzor Referring Provider Active Star t: August 25, 2025 Team Status: Active Member Role/Relationship Status Dates Dr. Dennis Hamm MD Primary care physician Active Start: August 29, 2025 Dr. Pernell Friend , DO Attending physician Active Start: August 29, 2025 Dr. Pernell Philippe , DO Referring Provider Active Start: August 29, 2025 Goals (unrecognized section and content) Goals [...] BE BASED ON THE PRIMARY CLINICAL RECORDS. [facility]. provides no warranty or guarantee of the accuracy or completeness of information in this document.
== END 2025-10-27 20:57 | disposition left against medical advice (07) ==
LOC: ED 20:59
PROVIDERS: PCP Internal Medicine
DX: Z53.21 Procedure and treatment not carried out due to patient leaving prior to being seen by health care provider (principal)